=== PATIENT | male | born 1935 | race Caucasian/White ===

== ENCOUNTER 2017-07-26 07:50 | Emergency (ER) | payer MEDICARE, OTHER, SELFPAY ==
[2017-07-26 07:52] VITALS: BP 154/103; PULSE 105; RESP 16; TEMP 37.1; O2SAT 96; BMI 25.7
--- NOTE | 2017-07-26 08:11 | ED.VISSUMM ---
- ER Visit Summary Date of Service: 07/26/17 Chief Complaint: Urinary retention History of Present Illness: The patient is a [address] Amador and does not see a urologist. Patient reports he had a hernia repair yesterday. He has been unable to urinate since 5 PM yesterday. He has not had this previously. He denies any abdominal pain, nausea, vomiting, diarrhea, fever, chills, or other complaints. Physical Examination: Vitals: Stable. Afebrile. General: Well-nourished and well-developed. Head: Normocephalic atraumatic. Neck: Supple, no lymphadenopathy. No JVD. Nontender. Cardiovascular: Regular rate and rhythm. No murmurs. Respiratory: No respiratory distress. Clear to auscultation bilaterally. Abdominal: Soft, nontender, nondistended, normal bowel sounds. Obviously distended bladder. Incisions from the laparoscopy are clean, dry, and intact. There is no erythema or warmth. No guarding, rebound, or peritoneal signs. Back: Nontender. Extremities: Nontender, no edema. Skin: Normal color, no rash. Neurologic: Alert and oriented ?3. Cranial nerves II through XII are intact. Normal strength and sensation. Psych: Normal affect. Emergency Department Course and Treatment: Patient had a Urojet used and then had a Esteves catheter placed. He was given Flomax p.o. Treatment Plan: Patient will be discharged on Flomax and instructed to follow-up with Dr. Plasencia in 3-5 days. Return to the emergency department for any worsening symptoms. Disposition: To home in improved and stable condition. Impression: 1. Urinary retention. 2. 1 day status post hernia repair. This note was generated with [employer] dictation software. It may contain incorrect words, spelling, and punctuation that were not noted in review of the chart prior to signing ED Disposition - Plan for ED Patient: Chief Complaint: Complaint Instructions: ED Retention Urinary Male Prescriptions: Tamsulosin HCl [Flomax] 0.4 mg PO DAILY #30 capsule Referrals: Daniel Amador [Primary Care Provider] - Isai Plasencia MD [STAFF PHYSICIAN] - 3-5 Days
--- NOTE | 2017-07-26 08:15 | ED.DCSUM_ITS ---
- ER Visit Summary Date of Service: 07/26/17 Chief Complaint: Urinary retention History of Present Illness: The patient is a [address] Amador and does not see a urologist. Patient reports he had a hernia repair yesterday. He has been unable to urinate since 5 PM yesterday. He has not had this previously. He denies any abdominal pain, nausea, vomiting, diarrhea, fever, chills, or other complaints. Physical Examination: Vitals: Stable. Afebrile. General: Well-nourished and well-developed. Head: Normocephalic atraumatic. Neck: Supple, no lymphadenopathy. No JVD. Nontender. Cardiovascular: Regular rate and rhythm. No murmurs. Respiratory: No respiratory distress. Clear to auscultation bilaterally. Abdominal: Soft, nontender, nondistended, normal bowel sounds. Obviously distended bladder. Incisions from the laparoscopy are clean, dry, and intact. There is no erythema or warmth. No guarding, rebound, or peritoneal signs. Back: Nontender. Extremities: Nontender, no edema. Skin: Normal color, no rash. Neurologic: Alert and oriented ?3. Cranial nerves II through XII are intact. Normal strength and sensation. Psych: Normal affect. Emergency Department Course and Treatment: Patient had a Urojet used and then had a Esteves catheter placed. He was given Flomax p.o. Treatment Plan: Patient will be discharged on Flomax and instructed to follow- up with Dr. Plasencia in 3-5 days. Return to the emergency department for any worsening symptoms. Disposition: To home in improved and stable condition. Impression: 1. Urinary retention. 2. 1 day status post hernia repair. This note was generated with [employer] dictation software. It may contain incorrect words, spelling, and punctuation that were not noted in review of the chart prior to signing ED Disposition - Plan for ED Patient: Chief Complaint: Complaint Instructions: ED Retention Urinary Male Prescriptions: Tamsulosin HCl [Flomax] 0.4 mg PO DAILY #30 capsule Referrals: Daniel Amador [Primary Care Provider] - Isai Plasencia MD [STAFF PHYSICIAN] - 3-5 Days
[2017-07-26] MEDS: Lidocaine Jelly 2% 20 ML Syringe (URO-JET) 20 APPLIC TOPICAL (08:26)
[2017-07-26] MEDS: Tamsulosin HCl 0.4 MG Capsule PO (08:34)
[2017-07-26 09:36] VITALS: BP 138/77; PULSE 69; RESP 15; O2SAT 95
== END 2017-07-26 09:38 | disposition home or self-care (01) ==
PROVIDERS: Emergency Provider Emergency Medicine; PCP Family Medicine
DX: R33.9 Retention of urine, unspecified (principal); I10 Essential (primary) hypertension; K21.9 Gastro-esophageal reflux disease without esophagitis; Z98.890 Other specified postprocedural states
CPT/HCPCS: 51702; 99284

== ENCOUNTER 2019-07-16 10:06 | Day surgery (SDC) | payer MEDICARE, OTHER, SELFPAY ==
[2019-07-16] VITALS (9 sets, daily range): BP systolic 129–163; BP diastolic 76–104; PULSE 86–109; RESP 15–18; TEMP 36.6–37.2; O2SAT 92–97; BMI 25.8
[2019-07-16] MEDS: 0.9% Normal Saline 1,000 ML 150 ML IV (11:17)
--- NOTE | 2019-07-16 11:26 | NURSING ---
ENDO JASMIN FB REMOVAL
--- NOTE | 2019-07-16 11:30 | ED.RN ---
REPORT TO [facility] IN [facility]. PT SKIN P/W/D, RESP EVEN AND UNLABORED, PT A&O X 3, NO DISTRESS NOTED.
--- NOTE | 2019-07-16 11:33 | ED.VIS.GEN ---
History of Present Illness Chief Complaint: Foreign Body Informant: Patient Onset: Yesterday Current Severity: Mild Maximum Severity: Mild Narrative: Patient presents with what he believes is a piece of pork stuck in his throat. He states he was eating last night. He said he does not have coughing or choking but will occasionally get food stuck in his throat. He has been tolerating secretions since that time and speaks with a strong voice, however anytime he eats or drinks it comes back up. - Past Medical History (1) Hypertension Status: Chronic (2) GERD (gastroesophageal reflux disease) Status: Chronic (3) Asthma Status: Chronic Past Medical History - Allergies and Home Meds Allergies/Adverse Reactions: Allergies egg Allergy (Verified 07/16/19 10:09) Anaphylaxis Primary Care Physician: Daniel Amador MD [Primary Care Provider] - Prior records reviewed: Yes Lives: Spouse/ Significant Other Smoking Status: Former smoker Review of Systems General: Denies: Chills, Fever Eyes: Denies: Visual changes - bilaterally ENT: Denies: Bilateral ear pain Cardiovascular: Denies: Chest pain Respiratory: Denies: Dyspnea, Cough Gastrointestinal: Reports: Vomiting - Spitting up food and drink. Denies: Abdominal pain Musculoskeletal: Denies: Swelling, Extremity Pain Skin: Denies: Rash Neurological: Denies: Headache Allergy: Denies: Uticaria Physical Exam Vital Signs/Narrative: Vital Signs Temp Pulse Resp BP Pulse Ox 07/16/19 10:31 106 H 16 160/82 H 94 07/16/19 10:07 97.9 F 109 H 18 157/104 H 95 Inital Vital Signs reviewed: Yes General: Well nourished, Well developed Head: Normocephalic ENT: Moist mucous membranes Neck: Supple Cardiovascular: Regular rate, Regular rhythm Respiratory: No distress, CTA bilaterally Abdomen: Soft, Nontender, Normal bowel sounds Skin: Normal color Neurological: Alert, Oriented x3 Psychological: Normal affect Diagnostic/Tx/Re-eval - Medical Decision Making Shortly after seeing the patient I spoke with Dr. Morris. Patient will be taken down to endoscopy for EGD and plan will be to discharge patient from there. Patient and spouse at bedside been updated. ED Disposition - Plan for ED Patient: Disposition: Acute Care Hospital [facility] Diagnosis: Esophageal foreign body Referrals: Daniel Amador MD [Primary Care Provider] -
--- NOTE | 2019-07-16 11:44 | ED.RN ---
PT TRANSPORTED TO [facility].
--- NOTE | 2019-07-16 12:22 | PCM.HP.STD ---
Problem List (1) Esophageal foreign body Status: Acute Qualifiers: Encounter type: initial encounter Qualified Code(s): T18.108A - Unspecified foreign body in esophagus causing other injury, initial encounter History of Present Illness Date of Admission: 07/16/19 The patient is a 84 year old M here with vomiting. The patient reports that he ate dinner last night and he ate pork and galan beans. He says ever since he has not been able to control his secretions and he has been vomiting. This has happened in the past and he had an EGD in [address] Babcock for food impaction. He is on omeprazole. Past Medical History Past Medical History (Chronic Problems): Chronic Problems Hypertension (Chronic) GERD (gastroesophageal reflux disease) (Chronic) Asthma (Chronic) Allergies egg Allergy (Verified 07/16/19 10:09) Anaphylaxis Home Medications: Ambulatory Orders Medication Instructions Recorded Omeprazole [Prilosec] 20 mg PO DAILY 01/02/16 Lisinopril [Zestril] 5 mg PO DAILY #30 tablet 01/03/16 Surgical History: - - EGD for food impaction Lives: Spouse/ Significant Other Smoking Status: Former smoker - *Family History Maternal History Items: No pertinent history Review of Systems Constitutional: Denies: Anorexia, Fever HEENT: Reports: Difficulty Swallowing Cardiovascular: Denies: Chest Pain Respiratory: Denies: Cough, Shortness of Breath Gastrointestinal: Reports: Vomiting. Denies: Constipation, Diarrhea, Nausea VTE Information - Inpt Only VTE Present on Admission: No VTE Mechan Device Prophylaxis: SCD's Patient Problems: Active and Suspected Problems Esophageal foreign body (Acute) - Physical Exam Vitals/I&O's: Vital Signs Temp Pulse Resp BP Pulse Ox 99 F 86 15 163/86 H 97 07/16/19 11:45 07/16/19 11:45 07/16/19 11:45 07/16/19 11:45 07/16/19 11:45 Oxygen Delivery Method Room Air Weight: 160 lb 0.008 oz Body Mass Index (BMI) 25.8 Intake and Output for Last 24 Hours 07/14/19 07/15/19 07/16/19 23:59 23:59 23:59 Intake Total 65 / 65 Balance 65 / 65 General: Alert, Oriented x3 Neck: No JVD Lungs: Normal air movement Cardiovascular: Regular rate, Regular Rhythm Abdomen: Soft, Non Tender, Non-Distended Current Medications Sodium Chloride () 1,000 mls @ 150 mls/hr IV .Q6H40M [facility] Last Infusion: 07/16/19 11:56 Dose: Infused Documented by: Assessment/Plan All Active Problems Esophageal foreign body (Acute) 84-year-old male with food impaction of the esophagus 1. Plan for EGD with removal of the food. I discussed the increased risk of bleeding or perforation with the food removal. I also discussed the increased risk of aspiration. I explained endoscopy in detail to the patient. I explained the risks including but not limited to stroke or heart attack with anesthesia, perforation of the GI tract, bleeding, infection. I explained that any of these could necessitate further emergency surgery. The patient understands and all questions were answered sufficiently. The patient wishes to proceed with procedure. Portillo Morris MD Pager: [facility] [address] [place] [address], [address] [place] [address] Office:
--- NOTE | 2019-07-16 12:40 | OP.EGD_ITS ---
Patient Name: Eduardo Raines Procedure Date: 07/16/2019 12:07 PM Date of : 1935 Age: 84 Procedure: Upper GI endoscopy Indications: Foreign body in the esophagus Providers: Portillo Morris MD Medicines: Monitored Anesthesia Care Patient Profile: This is an 84 year old male. Refer to note in patient chart for documentation of history and physical. Complications: No immediate complications. Estimated blood loss: Minimal. Procedure: Pre-Anesthesia Assessment: - Prior to the procedure, a History and Physical was performed, and patient medications and allergies were reviewed. The patient's tolerance of previous anesthesia was also reviewed. The risks and benefits of the procedure and the sedation options and risks were discussed with the patient. All questions were answered, and informed consent was obtained. Prior Anticoagulants: The patient has taken no previous anticoagulant or antiplatelet agents. ASA Grade Assessment: II - A patient with mild systemic disease. After reviewing the risks and benefits, the patient was deemed in satisfactory condition to undergo the procedure. After obtaining informed consent, the endoscope was passed under direct vision. Throughout the procedure, the patient's blood pressure, pulse, and oxygen saturations were monitored continuously. The gastroscope was introduced through the mouth, and advanced to the second part of duodenum. The upper GI endoscopy was accomplished without difficulty. The patient tolerated the procedure well. Scope In: 12:30:38 PM Scope Out: 12:35:44 PM Total Procedure Duration Time 0 hours 5 minutes 6 seconds Findings: Food was found at the gastroesophageal junction. Food was pushed into stomach. A moderate Schatzki ring was found at the gastroesophageal junction. 1 cm lumen Impression: - Food was found in the esophagus. Removal was successful. - Moderate Schatzki ring. Recommendation: - Discharge patient to home. - Soft diet for 2 days. - Continue present medications. - Return to my office in 1 week. Procedure Code(s): --- Professional --- 82122, Esophagogastroduodenoscopy, flexible, transoral; with removal of foreign body(s) Diagnosis Code(s): --- Professional --- T18.128A, Food in esophagus causing other injury, initial encounter K22.2, Esophageal obstruction T18.108A, Unspecified foreign body in esophagus causing other injury, initial encounter CPT copyright 2017 [employer]. All rights reserved. The codes documented in this report are preliminary and upon invoice coder review may be revised to meet current compliance requirements. Portillo Morris MD 07/16/2019 12:39:39 PM This report has been signed electronically. Number of Addenda: 0 Note Initiated On: 07/16/2019 12:07 PM
--- NOTE | 2019-07-16 12:40 | OP.CCLET_ITS ---
07/16/2019 Daniel Amador Md Re : Upper GI endoscopy procedure for Eduardo Raines Dear [place] This procedure was performed on Tuesday, July 16, 2019. My impressions and recommendations are as follows: Impressions : - Food was found in the esophagus. Removal was successful. - Moderate Schatzki ring. Recommendations : - Discharge patient to home. - Soft diet for 2 days. - Continue present medications. - Return to my office in 1 week. My findings are described in the full procedure note, which is enclosed. If I can be of further assistance, please feel free to contact me at Doctor phone number(s): , Work: . Sincerely, Portillo Morris MD 07/16/2019 12:39:39 PM This report has been signed electronically.
== END 2019-07-16 13:23 | disposition home or self-care (01) ==
LOC: ED 11:24 → EN 11:33 → AC 11:36
PROVIDERS: Emergency Provider Emergency Medicine; PCP Family Medicine; Referring Provider Family Medicine; Visit Provider Surgery
PROC: 0DJ08ZZ Inspection of Upper Intestinal Tract, Via Natural or Artificial Opening Endoscopic (ICD-10-PCS; CPT 43235; principal; 2019-07-16 12:20)
DX: T18.128A Food in esophagus causing other injury, initial encounter (principal); K22.2 Esophageal obstruction; I10 Essential (primary) hypertension; K21.9 Gastro-esophageal reflux disease without esophagitis; J45.909 Unspecified asthma, uncomplicated; Z87.891 Personal history of nicotine dependence; Z79.899 Other long term (current) drug therapy
CPT/HCPCS: 43247; 99282; J7030; A4216; J2405

== ENCOUNTER 2024-03-05 18:05 | Inpatient (IN) | payer MEDICARE, SELFPAY ==
[2024-03-05 18:55] VITALS: BP 131/69; PULSE 74; RESP 18; TEMP 36.7; O2SAT 95; BMI 22.3
--- NOTE | 2024-03-05 19:07 | HP.PCM_ITS ---
HPI - General General Date of Admission: 03/05/24 Date of Service: 03/06/24 Chief Complaint: Here for rehabilitation. HPI Narrative AYESHA JACOBSEN, is a 89 Male who presents with followin02/26/2024 [place] [facility] with confusion, recent UTI, treated with Cipro, urine culture grew 3 organisms. Not drinking, Admitted to [facility] last week. CT head negative, CTA head/neck negative, MRI brain negative. Confusion 2/2 acute kidney injury, dehydration, UTI. 02/27/2024 Admit to [facility]. Ceftriaxone IV for UTI. IV fluids for ANDREWS. 02/28/2024 Ceftriaxone IV for 1 more day, the oral antibiotic. 02/29/2024 Neurology recommended Keppra, MRI brain for possible seizure. Urology consulted for urinary retention. Urology recommended no urinary catheter. 03/02/2024 recommends SNF. PT/OT for SNF. Oral Keppra for seizure disorder. 03/03/2024 A[address] placement. Seizure disorder tolerating Keppra 500mg twice daily. 03/04/2024 Stroke alert, slurred speech, right facial droop. Not TNK candidate. NPO, Teleneurology, MRI brain, EKG, consider Echo. PT/OT/ST. Facial droop near baseline per and nursing staff. CT brain negative for bleed. 03/05/2024 Admit to TCU with debility, here for rehabilitation, strengthening, prior to discharge home with . [facility] Medical History (Updated 03/05/24 @ 19:[address] Darius Maddox MD) History of esophageal dilatation Esophageal stenosis Urinary retention BPH (benign prostatic hyperplasia) Essential (primary) hypertension Seizure disorder Urinary tract infection Dehydration Acute kidney injury Acute encephalopathy Debility Home Medications ?Medication ?Instructions ?Recorded ?Last Taken ?Type omeprazole 20 mg capsule,delayed 20 mg PO DAILY GERD 01/02/16 Unknown History release lisinopril 5 mg tablet 5 mg PO DAILY ##30 01/03/16 Unknown Rx cyanocobalamin (vitamin B-12) 500 500 mcg PO DAILY Supplement 03/05/24 Unknown History mcg tablet (Vitamin B-12) levetiracetam 500 mg tablet 500 mg PO BID Seizures 03/05/24 Unknown History lisinopril 10 mg tablet 10 mg PO DAILY Blood pressure 03/05/24 Unknown History meclizine 25 mg tablet 25 mg PO TID PRN PRN dizziness or 03/05/24 Unknown History vertigo tamsulosin 0.4 mg capsule 0.4 mg PO DAILY Bladder 03/05/24 Unknown History Allergy/AdvReac Type Severity Reaction Status Date / Time egg Allergy Anaphylaxis Verified 07/16/19 10:09 Family History (Updated 03/05/24 @ 19:[address] Darius Maddox MD) Mother Colon cancer Father Cancer Surgical History (Updated 03/05/24 @ 19:[address] Darius Maddox MD) History of colectomy History of left inguinal hernia repair History of esophagogastroduodenoscopy (EGD) Social History (Updated 03/05/24 @ 19:[address] Darius Maddox MD) household members: spouse Smoking Status: Former smoker alcohol intake: never substance use type: does not use ROS Constitutional Constitutional: Denies chills, fever(s) or weight gain ENT HEENT: Denies headache(s), nasal congestion or nasal discharge Cardiovascular Cardiovascular: Denies chest pain or palpitations Respiratory/Chest Respiratory/Chest: Denies cough, excessive phlegm production or shortness of breath with exertion Gastrointestinal Gastrointestinal: Denies abdominal pain, nausea or vomiting Genitourinary Genitourinary: Denies dysuria Musculoskeletal Musculoskeletal: Denies joint pain or joint swelling Integumentary Integumentary: Denies rash or wounds Neurologic Neurologic: Denies focal weakness, numbness or tingling Psychiatric Psychiatric: Denies anxiety, auditory hallucinations, depression, homicidal ideation or suicidal ideation Vital Signs Vital Signs Vital Signs: 03/05/24 18:55 Temperature 98.0 F Temperature Source Temporal Pulse Rate 74 Respiratory Rate 18 Blood Pressure 131/69 H Blood Pressure Mean 89 Blood Pressure Source Monitor Pulse Ox 95 Oxygen Delivery Method Room Air Weight Weight: 64.637 kg Body Mass Index (BMI) 22.3 Physical Exam Const alert General Appearance: cooperative HEENT normocephalic Eyes PERRL and EOMs intact bilaterally Neck supple, no JVD and no carotid bruits Resp normal respiratory effort, normal air movement and clear to auscultation bilaterally Cardio regular rate and regular rhythm GI normal to inspection, nondistended, normoactive bowel sounds, non-tender and non-distended Extremity normal capillary refill General Extremity: Negative for edema Skin no rashes or lesions noted General Skin Exam: no breakdown Psych affect normal Appearance: appropriate Results Lab / Micro Data 03/06/24 05:10 03/06/24 05:10 Assessment & Plan Assessment/Plan (1) Debility: (2) Acute encephalopathy: (3) Acute kidney injury: (4) Dehydration: (5) Urinary tract infection: (6) Seizure disorder: (7) Essential (primary) hypertension: (8) GERD (gastroesophageal reflux disease): (9) Asthma: (10) BPH (benign prostatic hyperplasia): (11) Urinary retention: (12) Esophageal stenosis: PLAN: Plan 89 year old male with below past medical history hospitalized for encephalopathy 2/2 seizure disorder, complicated by ANDREWS, dehydration, UTI, urinary retention, admitted to TCU with debility, here for rehabilitation, strengthening, prior to discharge home with . * Debility - PT/OT. * Cognition/dysphagia - ST. * Pain - Tylenol 1000mg q6 prn pain (1-10). * Bowel - senna/colace 1 tablet bid, Magnesium citrate 300mL po daily prn. * Adult immunization - Administer pneumonia vaccine, covid vaccine, flu vaccine as appropriate. * DVT prophylaxis - Lovenox 40mg sc daily if no contraindications. * Vitamin B12 deficiency - B12 500mcg daily. * Seizure disorder - Keppra 500mg bid. * Hypertension - Lisinopril 10mg daily. * BPPV - Meclizine 25mg tid prn. * GERD - Pantoprazole 20mg daily. * BPH - Tamsulosin 0.4mg daily. * Insomnia - Melatonin 3mg qhs.
[2024-03-05 19:18] VITALS: BMI 22.4
[2024-03-05] MEDS: MELATONIN 3 MG TABLET PO (22:46)
[2024-03-05] MEDS: levETIRAcetam 500 MG Tablet PO (22:46)
[2024-03-05] MEDS: Senna/Docusate Sodium 1 Tablet PO (22:46)
[2024-03-06 06:13] LABS: Absolute Lymphocyte Count 1.77 X10^3/uL (0.83-4.51); Basophil# 0.07 X10^3/uL; Basophil% 0.7 % (0-1); Eosinophil# 0.97 X10^3/uL; Eosinophils% 9.7 % (0-5); Hematocrit 38.9 % (40-54); Hemoglobin 12.5 g/dL (13.0-16.5); Lymphocyte # 1.77 X10^3/ul (0.83-4.51); Lymphocyte % 17.7 % (19-41); Mean Corp Hgb Conc 32.1 g/dL (32-36); Mean Corpuscular Volume 90.3 fL (80-94); Mean Platelet Vol. 10.7 fl (6.2-12.0); Monocyte# 1.11 X10^3/uL; Monocyte% 11.1 % (0-10); NRBC Flagged by Analyzer 0 % (0-5); Neutrophil % 60.2 % (47-70); Platelet Count 273 K/mm3 (150-450); RBC Distribution Width CV 13.2 % (11.6-14.6); RBC Distribution Width SD 43.6 fl (35.1-43.9); Red Blood Count 4.31 M/mm3 (4.6-6.2)
[2024-03-06 06:33] LABS: Anion Gap 4 (5-15); BUN 25 mg/dL (7-18); BUN/Creat Ratio 23.6 RATIO (10-20); Calcium,Total 9.1 mg/dL (8.5-10.1); Chloride 110 mmol/L (98-107); Creatinine, Serum 1.06 mg/dL (0.70-1.30); EST Glomerular Filtration Rate 70 mL/min (>60); Est Glom Filt Rate - Afr Amer 85 mL/min (>60); Estimated Creatinine Clearance 44.08 ml/min; Glucose 91 mg/dL (74-106); Potassium 3.8 mmol/L (3.5-5.1); Sodium Level 142 mmol/L (136-145)
--- NOTE | 2024-03-06 08:48 | PCM.PN.DRR ---
Documented by User: Chanelle Jc 03/06/24 09:20 TCU RX Drug Regimen Review Subjective/Objective Subjective/Objective: Subjective: TCU Admission. 89 YOM presented to outside ER with confusion and recent UTI. Hospitalized for encephalopathy 2/2 seizure disorder, complicated by ANDREWS, dehydration, UTI, urinary retention. Admitted to TCU with debility for strengthening and rehabilitation. Objective: Allergies egg Allergy (Verified 07/16/19 10:09) Anaphylaxis Current Medications Generic Name Dose Route Start Last Admin Trade Name Freq PRN Reason Stop Dose Admin Acetaminophen 1,000 mg 03/05/24 19:19 Acetaminophen 500 Mg Tablet PO Q6H PRN PRN Pain Score 1-10 Cyanocobalamin 500 mcg 03/06/24 08:00 Cyanocobalamin 500 Mcg Tablet PO BREAKFAST TATY Enoxaparin Sodium 40 mg 03/06/24 06:00 Enoxaparin 40 Mg/0.4 Ml Syringe SC DAILY@0600 TATY Levetiracetam 500 mg 03/05/24 22:00 03/05/24 22:46 Levetiracetam 500 Mg Tablet PO 500 mg BID TATY Administration Lisinopril 10 mg 03/06/24 10:00 Lisinopril 10 Mg Tablet PO DAILY TATY Protocol Magnesium Citrate 300 ml 03/05/24 19:19 Magnesium Citrate 300 Ml PO DAILY PRN Constipation Meclizine HCl 25 mg 03/05/24 19:02 Meclizine Hcl 25 Mg Tablet PO TID PRN PRN dizziness or vertigo Melatonin 3 mg 03/05/24 22:00 03/05/24 22:46 Melatonin 3 Mg Tablet PO 3 mg QHS TATY Administration Pantoprazole Sodium 20 mg 03/06/24 10:00 Pantoprazole Sodium 20 Mg Tablet PO DAILY TATY Senna/Docusate Sodium 1 tablet 03/05/24 22:00 03/05/24 22:46 Senna/Docusate Sodium 1 Tablet PO 1 tablet BID TATY Administration Sodium Chloride 10 - 40 ml 03/05/24 19:01 0.9% Saline Lock 10 Ml Syringe IV UD PRN SALINE FLUSH Tamsulosin HCl 0.4 mg 03/06/24 10:00 Tamsulosin Hcl 0.4 Mg Capsule PO DAILY TATY Tuberculin PPD 0.1 ml 03/06/24 10:00 Tuberculin,Purif.Prot.Deriv. 50 Tu/Ml Vial ID 03/06/24 10:01 X1 ONE Tuberculin PPD 0.1 ml 03/13/24 10:00 Tuberculin,Purif.Prot.Deriv. 50 Tu/Ml Vial ID 03/13/24 10:01 X1 ONE Problem List Esophageal stenosis (Acute) Urinary retention (Acute) BPH (benign prostatic hyperplasia) (Acute) Essential (primary) hypertension (Acute) Seizure disorder (Acute) Urinary tract infection (Acute) Dehydration (Acute) Acute kidney injury (Acute) Acute encephalopathy (Acute) Debility (Acute) Asthma (Chronic) GERD (gastroesophageal reflux disease) (Chronic) Vital Signs Temp Pulse Resp BP Pulse Ox O2 Del Method 98.0 F 74 18 131/69 H 95 Room Air 03/05/24 18:55 03/05/24 18:55 03/05/24 18:55 03/05/24 18:55 03/05/24 18:55 03/05/24 20:54 Oxygen Delivery Method Room Air Weight: 64.7 kg Body Mass Index (BMI) 22.4 Sodium 142 mmol/L (136-145) 03/06/24 05:10 Potassium 3.8 mmol/L (3.5-5.1) 03/06/24 05:10 Chloride 110 mmol/L (98-107) H 03/06/24 05:10 Carbon Dioxide 28.0 mmol/L (21.0-32.0) 03/06/24 05:10 Anion Gap 4 (5-15) L 03/06/24 05:10 BUN 25 mg/dL (7-18) H 03/06/24 05:10 Creatinine 1.06 mg/dL (0.70-1.30) 03/06/24 05:10 Est GFR (MDRD) Af Amer 85 mL/min (>60) 03/06/24 05:10 Est GFR (MDRD) Non-Af 70 mL/min (>60) 03/06/24 05:10 BUN/Creatinine Ratio 23.6 RATIO (10-20) H 03/06/24 05:10 Glucose 91 mg/dL (74-106) 03/06/24 05:10 Assessment/Plan: 1. Pain: acetaminophen 1000mg PO Q6H PRN pain 1-10. Resident has not had any doses. Please continue to monitor for increased pain and PRN usage. 2. Bowel: senna/docusate 1T PO BID and magnesium citrate 300mL PO daily PRN constipation. Resident has not used any PRN doses so far. Please continue to monitor for constipation and PRN usage. No documented bowel movement. 3. DVT prophylaxis: enoxaparin 40mg SC daily. Please continue to monitor for S/S of bleeding/DVT, hemoglobin (last 12.5g/dL), platelets (last 273,000) and renal function. 4. Seizure disorder: levetiracetam 500mg PO BID. Please continue to monitor for S/S of seizure, rash, falls/fractures (BEERs), renal function, aggression/agitation and suicidal ideation. 5. Hypertension: lisinopril 10mg PO daily. Please continue to monitor BP (last 131/69), potassium (last 3.8mmol/L), cough and renal function. 6. BPPV: meclizine 25mg PO TID PRN dizziness or vertigo. No PRN doses have been given. Please continue to monitor for dizziness, vertigo and PRN usage. 7. GERD: pantoprazole 20mg PO daily. Please continue to monitor for S/S of GERD, diarrhea and magnesium. 8. BPH: tamsulosin 0.4mg PO daily. Please continue to monitor for S/S of BPH and BP. 9. Insomnia: melatonin 3mg PO QHS. Please continue to monitor for excessive daytime drowsiness. 10. Vitamin B12 deficiency: cyanocobalamin 500mcg PO breakfast. Please consider ordering a vitamin B12 level as there is no level in the chart. Thanks. Assessment/Plan for indications treated with psychotropic medications: None Medical chart and medication regimen reviewed. The following medication irregularities or issues were identified: 1. Cyanocobalamin 500mcg PO breakfast. Please consider ordering a vitamin B12 level as there is no level in the chart. Thanks. Date Date of Note:: 03/06/24 Documented by User: Dr. Darius Maddox MD 03/06/24 09:36 TCU RX Drug Regimen Review Provider Comments Provider responsibility Provider Comments to Recommendations by Pharmacy: Agree
[2024-03-06 10:02] VITALS: BP 97/50; PULSE 88; RESP 16; TEMP 36.8; O2SAT 93
[2024-03-06] MEDS: Enoxaparin 40 MG/0.4 ML Syringe SC (10:03)
[2024-03-06] MEDS: Pantoprazole Sodium 20 MG Tablet PO (10:04)
[2024-03-06] MEDS: levETIRAcetam 500 MG Tablet PO ×2 (10:04→22:18)
[2024-03-06] MEDS: Senna/Docusate Sodium 1 Tablet PO ×2 (10:04→22:18)
[2024-03-06] MEDS: Tamsulosin HCl 0.4 MG Capsule PO (10:04)
[2024-03-06] MEDS: Cyanocobalamin 500 MCG Tablet PO (10:04)
[2024-03-06] MEDS: Lisinopril 10 MG Tablet PO (10:04)
[2024-03-06] MEDS: Tuberculin,Purif.prot.deriv. 50 TU/ML Vial 0.1 ML ID (10:06)
[2024-03-06 10:46] LABS: Vitamin B12 1389 pg/mL (211-911)
--- NOTE | 2024-03-06 12:18 | NURSING ---
Operations Associate Note; Activity Asset: Jayne Clark is independent in his choice of daily activities. He will watch tv, read and visits with family, friends and tenriism. will bring him items he may need. Staff will remind him of weekly activities and respect his right to say No.
--- NOTE | 2024-03-06 14:09 | CASEMGMT ---
Addendum entered by Jenny Mcgee 03/06/24 16:16: Social Work SW met with pt's who confirms prior to hospitalization pt lives at home and was independent with care needs. Pt's states pt does have a health care POA naming Marilyn Raines and pt does not have a living will. ALEC requested Marilyn bring copy of HCPOA into hospital to be placed on pt chart. SW spoke with Marilyn regarding code status. SW explained that paperwork from [facility] indicates DNRCCA however in discussion today pt indicated possibly wanting full code. Pt's states she will speak with pt and a clear answer on code status will be settled on. Nursing updated and to follow up with pt and . Pt's confirms plan for pt to return home at time of dc. ALDEN Ramon Original Note: Social Work SW met with pt and competed psychosocial assessment. Pt is able to converse appropriately with SW, is alert and oriented x3 but short term memory is very impaired and pt is able to state this. Phone call to pt's spouse to verify information provided by pt and VM left. Pt is currently a DNRCCA as indicated from paper work sent to TCU from acute hospital stay. ALEC explained [employer] Medicare next review date is 03/11 and that continued stay is not guaranteed. Pt denies having completed a health care POA or living will. When pt's calls back, SW will verify. Pt lives at home with his and was indenpendent prior to hosptialization. Pt plans to return home with his spouse. ALEC will continue to follow for support and dc planning. ALDEN Godinez
[2024-03-06] MEDS: Acetaminophen 500 MG Tablet 1000 MG PO (17:24)
[2024-03-06 22:00] VITALS: PULSE 88; RESP 16; O2SAT 93
[2024-03-06] MEDS: MELATONIN 3 MG TABLET PO (22:18)
[2024-03-06] MEDS: 0.9% Saline Lock 10 ML Syringe IV (22:26)
--- NOTE | 2024-03-06 23:00 | NURSING ---
Per CAUSTIC ROOM ATTENDANT patient had LG BM post SSE
[2024-03-07] MEDS: Enoxaparin 40 MG/0.4 ML Syringe SC (05:05)
[2024-03-07 08:30] VITALS: BP 114/81; PULSE 87; RESP 16; TEMP 36.6; O2SAT 92
[2024-03-07] MEDS: Pantoprazole Sodium 20 MG Tablet PO (08:35)
[2024-03-07] MEDS: Lisinopril 10 MG Tablet PO (08:36)
[2024-03-07] MEDS: Cyanocobalamin 500 MCG Tablet PO (08:36)
[2024-03-07] MEDS: levETIRAcetam 500 MG Tablet PO ×2 (08:36→21:31)
[2024-03-07] MEDS: Tamsulosin HCl 0.4 MG Capsule PO (08:36)
[2024-03-07] MEDS: Senna/Docusate Sodium 1 Tablet PO ×2 (08:36→21:43)
[2024-03-07] MEDS: Acetaminophen 500 MG Tablet 1000 MG PO ×2 (08:42→21:30)
[2024-03-07] MEDS: MELATONIN 3 MG TABLET PO (21:31)
[2024-03-07] MEDS: Neomycin/Polymyxin/Dexameth 5ML OPTH.BTL 1 DRP EACH EYE (23:53)
[2024-03-08] MEDS: Neomycin/Polymyxin/Dexameth 5ML OPTH.BTL 1 DRP EACH EYE ×4 (05:24→23:06)
[2024-03-08] MEDS: Enoxaparin 40 MG/0.4 ML Syringe SC (05:25)
[2024-03-08 09:10] VITALS: BP 106/69; PULSE 105; RESP 16; TEMP 36.1; O2SAT 95
[2024-03-08] MEDS: levETIRAcetam 500 MG Tablet PO ×2 (09:13→20:00)
[2024-03-08] MEDS: Cyanocobalamin 500 MCG Tablet PO (09:13)
[2024-03-08] MEDS: Senna/Docusate Sodium 1 Tablet PO ×2 (09:13→20:01)
[2024-03-08] MEDS: Lisinopril 10 MG Tablet PO (09:13)
[2024-03-08] MEDS: Pantoprazole Sodium 20 MG Tablet PO (09:13)
[2024-03-08] MEDS: Tamsulosin HCl 0.4 MG Capsule PO (09:13)
[2024-03-08] MEDS: 0.9% Saline Lock 10 ML Syringe IV (09:16)
[2024-03-08 10:31] LABS: Bacteria 0 SEEN /hpf (None Seen); Mucous, Urine 0 SEEN /hpf (<or=2+); Red Blood Cells-Urine 0 SEEN /hpf (0-5); Squamous Epithelial Cells - UA 0 SEEN /hpf (0-5)
--- NOTE | 2024-03-08 10:33 | NURSING ---
Addendum entered by Amy Ghosh 03/08/24 10:36: call light in reach, alarm in place on bed. trimmed pt fingernails per pt request, had some nails with jagged edges. pt very appreciative. obtained 120cc clear yellow urine. pt does have history of BPH, states he had never seen urologist but wants me to check with his d/t poor memory. Original Note: pt tolerated st cath, did not some resistance with insertion. pt resting in bed on back, call lig
[2024-03-08 10:34] LABS: Color, Urine Yellow (Yellow); Glucose, Dipstick Normal (Normal); Ketone-Dipstick Negative (Negative); Leukocyte Esterase-Dipstick 25 /ul (Negative); Nitrite-Dipstick Negative (Negative); Occult Blood-Urine Negative /ul (Negative); Protein-Dipstick Negative (Negative); Urine Bilirubin Dipstick Negative (Negative); Urine Clarity Clear (Clear); Urine Urobilinogen Normal (Normal)
[2024-03-08 10:39] VITALS: PULSE 84; RESP 16; O2SAT 94
[2024-03-08 10:42] LABS: White Blood Cells 0-5 SEEN /hpf (0-5)
[2024-03-08] MEDS: Nystatin Powder 15gm Bottle 1 APPLIC TOPICAL ×2 (12:02→20:00)
[2024-03-08] MEDS: MELATONIN 3 MG TABLET PO (20:00)
--- NOTE | 2024-03-08 20:04 | NURSING ---
Pt. ready for bed, hs meds administered at this time per pt. request
[2024-03-09] MEDS: Neomycin/Polymyxin/Dexameth 5ML OPTH.BTL 1 DRP EACH EYE ×4 (05:17→23:04)
[2024-03-09] MEDS: Enoxaparin 40 MG/0.4 ML Syringe SC (05:17)
[2024-03-09] MEDS: Nystatin Powder 15gm Bottle 1 APPLIC TOPICAL ×3 (05:18→20:21)
[2024-03-09 05:25] VITALS: PULSE 82; RESP 18; O2SAT 92
[2024-03-09] MEDS: Cyanocobalamin 500 MCG Tablet PO (08:05)
[2024-03-09] MEDS: Lisinopril 10 MG Tablet PO (08:05)
[2024-03-09] MEDS: Pantoprazole Sodium 20 MG Tablet PO (08:06)
[2024-03-09] MEDS: Senna/Docusate Sodium 1 Tablet PO ×2 (08:06→20:21)
[2024-03-09] MEDS: levETIRAcetam 500 MG Tablet PO ×2 (08:06→20:20)
[2024-03-09] MEDS: Tamsulosin HCl 0.4 MG Capsule PO (08:06)
[2024-03-09 09:12] VITALS: BP 136/89; PULSE 89; RESP 16; TEMP 36.8; O2SAT 94
--- NOTE | 2024-03-09 15:25 | NURSING ---
Spoke with Dr. Maddox regarding family wanting to stop Keppra due to patient not having any seizures and last EEG being negative prior to admission to TCU. Per Dr. Maddox, patient to continue Keppra until discharging from unit, EEG's are 99% negative unless they are performed with patient being monitored and able to catch seizure activity. Family and patient to follow up with PCP and neurology after discharge and discuss discontinuation of medication.
[2024-03-09] MEDS: MELATONIN 3 MG TABLET PO (20:20)
[2024-03-10] MEDS: Enoxaparin 40 MG/0.4 ML Syringe SC (06:07)
[2024-03-10] MEDS: Nystatin Powder 15gm Bottle 1 APPLIC TOPICAL ×3 (06:07→20:55)
[2024-03-10] MEDS: Neomycin/Polymyxin/Dexameth 5ML OPTH.BTL 1 DRP EACH EYE ×3 (06:07→17:37)
[2024-03-10] MEDS: Cyanocobalamin 500 MCG Tablet PO (08:30)
[2024-03-10] MEDS: Senna/Docusate Sodium 1 Tablet PO ×2 (08:31→20:55)
[2024-03-10] MEDS: Lisinopril 10 MG Tablet PO (08:31)
[2024-03-10] MEDS: levETIRAcetam 500 MG Tablet PO ×2 (08:31→20:55)
[2024-03-10] MEDS: Tamsulosin HCl 0.4 MG Capsule PO (08:31)
[2024-03-10] MEDS: Pantoprazole Sodium 20 MG Tablet PO (08:32)
[2024-03-10 10:38] VITALS: PULSE 92; RESP 16; O2SAT 92
[2024-03-10 10:47] VITALS: BP 115/85; PULSE 92; RESP 16; TEMP 36.5; O2SAT 92
[2024-03-10] MEDS: MELATONIN 3 MG TABLET PO (20:54)
[2024-03-11] MEDS: Neomycin/Polymyxin/Dexameth 5ML OPTH.BTL 1 DRP EACH EYE ×4 (00:57→18:27)
[2024-03-11] MEDS: Acetaminophen 500 MG Tablet 1000 MG PO (01:00)
[2024-03-11] MEDS: Enoxaparin 40 MG/0.4 ML Syringe SC (05:13)
[2024-03-11] MEDS: Nystatin Powder 15gm Bottle 1 APPLIC TOPICAL ×2 (08:29→18:28)
[2024-03-11 08:30] VITALS: BP 116/71; PULSE 72; RESP 18; TEMP 36.8; O2SAT 93
[2024-03-11] MEDS: Senna/Docusate Sodium 1 Tablet PO (08:31)
[2024-03-11] MEDS: Lisinopril 10 MG Tablet PO (08:31)
[2024-03-11] MEDS: Tamsulosin HCl 0.4 MG Capsule PO (08:31)
[2024-03-11] MEDS: Pantoprazole Sodium 20 MG Tablet PO (08:31)
[2024-03-11] MEDS: Cyanocobalamin 500 MCG Tablet PO (08:31)
[2024-03-11] MEDS: levETIRAcetam 500 MG Tablet PO (08:31)
--- NOTE | 2024-03-11 08:34 | NURSING ---
family requesting that keppra be stopped d/t family never knowing pt ever had seizures. dr gonzalez notified, does not want to stop until pt follows up with neurologist for more studies.
--- NOTE | 2024-03-11 09:48 | NURSING ---
Offered covid vaccine, VIS provided. Resident refuses at this time.
--- NOTE | 2024-03-11 11:32 | CASEMGMT ---
Social Work SW received message from nurse that would like dtr to be the contact for information. Amy Pop. SW updated contacts. Natividad Falcon HEAD OF HUMAN RESOURCES SEWER PIPE OFFBEARER
--- NOTE | 2024-03-11 12:11 | CASEMGMT ---
Addendum entered by Natividad Falcon 03/11/24 14:16: SW received no follow up contact from or dtr and nursing notified this worker dtr was present in room. SW presented to room. Introduced self and role to dtr and REGINA. Dtr explained she is a nurse and pt's granddaughter is a nurse, and are available to assist pt and at any time with pt's needs; declining the therapy training. Dtr inquired about DC date. SW reiterated explanation given to earlier and cited patient's do not typically receive therapy services the day of DC d/t insurance reasons, though, explained pt/family has the right to choose to DC at any time. Explained declined HHC but agreed to OP therapy and this worker can get that coordinated. SW verbally provided list of area OP facilities. Dtr/ elected [facility] for PT/OT/ST. Dtr asked pt if he would be okay going home tomorrow morning; pt agreed to the morning but no later. REGINA interjected, Amy give him the options. Dtr reasked pt if he would like to go home tonight or tomorrow morning; pt elected tonight. SW agreed and will notify Dr and IDT and will make the referral to [facility]. SW explained this worker will not be able to schedule the evals prior to DC, but that [facility] will call the to schedule; if no phone call within 48 hours of DC, to contact [facility] directly. SW explained Dr will see pt and complete DC after his office hours. Dtr expressed understanding and appreciative. SW completed BIMS (07/20) and PHQ-2 () for MDS assessment. Notified Dr and IDT. Faxed referral to [facility]. Plan:DC home with and family support 03/11, [facility] PT/OT/ST Natividad Falcon PAPER PATTERN INSPECTOR MACHINE PROGRAMMER Original Note: Social Work SW notified by nursing that at bedside and requesting to speak with this worker. SW presented to pt's room.b stated she spoke with the Dr this morning and Dr told her the pt can DC home today. SW unaware of conversation and offered to follow up with Dr and team on recommendations. SW inquired about HHC. adamantly declined anyone in the home but could take him to OP therapy. Though, therapy has not practiced a car tx. stated their dtr could assist with car tx. Dtr seems supportive, but this worker has not spoken to dtr during stay. denied DME needs as she just purchased pt a FWW. ALEC reviewed therapy notes. Pt is ambulating well in PT; good TUG score. OT is providing min-mod for some ADLs. ALEC followed up with . Pt was seen by both PT/OT this date. stated he did agree for pt to DC home for pt to return to his home environment, but to consult with this worker and team on timeframe. SW returned to room to explain. Offered to DC 03/13, and provide car tx and therapy training on 03/12; or DC 03/12, without training. to speak with dtr and provide options. SW provided this worker's contact information for or dtr to follow up with this worker. expressed understanding. SW will continue to follow.
--- NOTE | 2024-03-11 13:03 | NURSING ---
family requesting to take pt home today, family feels this is causing him to be agitated. pt does not need any medical equipment at home. PATHOLOGY LABORATORY AIDE aware, not on floor at this time, simulation technician notified, she will speak with PATHOLOGY LABORATORY AIDE. family updated.
--- NOTE | 2024-03-11 14:31 | NURSING ---
Order for neurology follow-up and clinical info faxed to Dr. Ricki Partida's office at [phone]. Updated family that neurology office said after receiving referral, they would reach out to patient/family in 24-48hrs.
--- NOTE | 2024-03-11 17:17 | DS.PCM_ITS ---
Providers Date of Admission: 03/05/24 Primary Care Physician: Dr. Daniel Amador MD Reason For Visit: ALTERED MENTAL STATUS Diagnosis Discharge Diagnosis (1) Debility: Status: Acute Code(s): R53.81 - Other malaise (2) Acute encephalopathy: Status: Acute Code(s): G93.40 - Encephalopathy, unspecified (3) Acute kidney injury: Status: Acute Code(s): N17.9 - Acute kidney failure, unspecified (4) Dehydration: Status: Acute Code(s): E86.0 - Dehydration (5) Urinary tract infection: Status: Acute Code(s): N39.0 - Urinary tract infection, site not specified (6) Seizure disorder: Status: Acute Code(s): G40.909 - Epilepsy, unspecified, not intractable, without status epilepticus (7) Essential (primary) hypertension: Status: Acute Code(s): I10 - Essential (primary) hypertension (8) GERD (gastroesophageal reflux disease): Status: Chronic Code(s): K21.9 - Gastro-esophageal reflux disease without esophagitis (9) Asthma: Status: Chronic Code(s): J45.909 - Unspecified asthma, uncomplicated (10) BPH (benign prostatic hyperplasia): Status: Acute Code(s): N40.0 - Benign prostatic hyperplasia without lower urinary tract symptoms (11) Urinary retention: Status: Acute Code(s): R33.9 - Retention of urine, unspecified (12) Esophageal stenosis: Status: Acute Code(s): K22.2 - Esophageal obstruction Plan 89 year old male with below past medical history hospitalized for encephalopathy 2/2 seizure disorder, complicated by ANDREWS, dehydration, UTI, urinary retention, admitted to TCU with debility, here for rehabilitation, strengthening, prior to discharge home with . * Debility - PT/OT. * Cognition/dysphagia - ST. * Pain - Tylenol 1000mg q6 prn pain (1-10). * Bowel - senna/colace 1 tablet bid, Magnesium citrate 300mL po daily prn. * Adult immunization - Administer pneumonia vaccine, covid vaccine, flu vaccine as appropriate. * DVT prophylaxis - Lovenox 40mg sc daily if no contraindications. * Vitamin B12 deficiency - B12 500mcg daily. * Seizure disorder - Keppra 500mg bid. * Hypertension - Lisinopril 10mg daily. * BPPV - Meclizine 25mg tid prn. * GERD - Pantoprazole 20mg daily. * BPH - Tamsulosin 0.4mg daily. * Insomnia - Melatonin 3mg qhs. Medications at Discharge Home Medications omeprazole 20 mg capsule,delayed release 20 mg PO DAILY GERD 01/02/16 cyanocobalamin (vitamin B-12) 500 mcg tablet (Vitamin B-12) 500 mcg PO DAILY Supplement 03/05/24 lisinopril 10 mg tablet 10 mg PO DAILY Blood pressure 03/05/24 meclizine 25 mg tablet 25 mg PO TID PRN PRN dizziness or vertigo 03/05/24 tamsulosin 0.4 mg capsule 0.4 mg PO DAILY Bladder 03/05/24 acetaminophen 500 mg tablet 1,000 mg (2 x 500 mg) PO Q6H PRN PRN Pain Score 1-10 #0 tabs 03/11/24 levetiracetam 500 mg tablet 500 mg PO BID 30 days #60 tabs 03/11/24 Hospital Course Operations None Procedures None Summary of Care Provided Minutes Spent on Discharge: 35 Hospital Course: 89 year old male with below past medical history hospitalized for encephalopathy 2/2 seizure disorder, complicated by ANDREWS, dehydration, UTI, urinary retention, admitted to TCU with debility, here for rehabilitation, strengthening, prior to discharge home with . [place] home with and family support 03/11, [facility] PT/OT/ST Physical Exam Const alert General Appearance: cooperative HEENT normocephalic Eyes PERRL and EOMs intact bilaterally Neck supple, no JVD and no carotid bruits Resp normal respiratory effort, normal air movement and clear to auscultation bilaterally Cardio regular rate and regular rhythm GI normal to inspection, nondistended, normoactive bowel sounds, non-tender and non-distended Extremity normal capillary refill General Extremity: Negative for edema Skin no rashes or lesions noted General Skin Exam: no breakdown Psych affect normal Appearance: appropriate Weight / BMI Weight Weight: 64.7 kg Body Mass Index (BMI) 22.4 ABG / Lab / Microbiology Data 03/06/24 05:10 03/06/24 05:10 Microbiology: Microbiology 03/08/24 10:20 Urine Catheter - Catheter Urine Culture - Final Culture exhibits no growth. D/C Instructions Discharge Diet: No restrictions Discharge Activity: Return to Normal Activity, May Shower and Use Walker Weight Bearing Status: Weight bearing as tolerated Call your doctor if you observe: Fever of 101 or Higher, Inability to urinate, Inability to have a bowel movement, Shortness of breath, Dizziness, Fainting spells, Swelling in the ankles, Chest pain and Uncontrolled pain Additional Instructions: DC home with and family support 03/11, [facility] PT/OT/ST Meaningful Use Info Meaningful Use Meaningful Use Diagnoses (Choose all that apply): None applicable Ischemic Stroke Statin Dosing Therapy Reference: STATIN DOSE THERAPY REFERENCE: * Patients > 75 years receive moderate or high dose statin therapy. * Patients 75 years or YOUNGER should receive HIGH intensity statin dose unless contraindicated. You will be required to document reason for non-treatment if statin daily dose does not meet guidelines. HIGH DOSE STATIN THERAPY DAILY Atorvastatin > than or = to 40 mg Rosuvastatin > than or = to 20 mg Amlodipine + Atorvastatin > than or = to 2.5/40 mg Ezetimibe + Simvastatin 10/80 mg Simvastatin 80mg Discharge Plan Admission Admit Date/Time: 03/05/24 18:05 Primary Reason for Your Visit: Debility. Attending Provider: Darius Maddox Chi Primary Care Provider: Daniel Amador Instructions Additional Instructions / Restrictions: DC home with and family support 03/11, [facility] PT/OT/ST Discharge Orders/Prescriptions Prescriptions: New levetiracetam 500 mg Tablet 500 mg PO BID 30 Days Qty: 60 0RF acetaminophen 500 mg Tablet 1,000 mg PO Q6H PRN PRN (Reason: Pain Score 1-10) Qty: 0 0RF Continued omeprazole 20 MG capsule 20 mg PO DAILY Patient Comments: acid reflux lisinopril 10 mg tablet 10 mg PO DAILY meclizine 25 mg tablet 25 mg PO TID PRN PRN (Reason: dizziness or vertigo) tamsulosin 0.4 mg capsule 0.4 mg PO DAILY cyanocobalamin (vitamin B-12) [Vitamin B-12] 500 mcg tablet 500 mcg PO DAILY Discontinued lisinopril 5 MG tablet 5 mg PO DAILY Qty: 30 0RF Patient Comments: blood pressure levetiracetam 500 mg tablet 500 mg PO BID Referrals / Follow Up: Daniel Amador MD [Primary Care Provider] - ( to make appt) Disposition Disposition (needs filled in before D/C Order can be placed): Home, Self Care
--- NOTE | 2024-03-14 11:52 | MDS.RN ---
Information for the MDS was obtained from review of the clinical record, interview of resident, staff, and direct observation of resident?s care.
== END 2024-03-11 18:46 | disposition home or self-care (01) | DRG 101 ==
PROVIDERS: Admitting Provider Family Medicine Geriatric Medicine; PCP Family Medicine; Referring Provider Family Medicine Geriatric Medicine; Visit Provider Family Medicine Geriatric Medicine
DX: G40.909 Epilepsy, unspecified, not intractable, without status epilepticus (principal); G93.49 Other encephalopathy; N39.0 Urinary tract infection, site not specified; I10 Essential (primary) hypertension; J45.909 Unspecified asthma, uncomplicated; K22.2 Esophageal obstruction; E53.8 Deficiency of other specified B group vitamins; K21.9 Gastro-esophageal reflux disease without esophagitis; H81.10 Benign paroxysmal vertigo, unspecified ear; H10.9 Unspecified conjunctivitis; R33.8 Other retention of urine; N40.1 Benign prostatic hyperplasia with lower urinary tract symptoms; Z87.891 Personal history of nicotine dependence; G47.00 Insomnia, unspecified; Z79.899 Other long term (current) drug therapy; R29.810 Facial weakness
CPT/HCPCS: 36415; 80048; 81001; 82607; 85025; 87086; 92507; 92523; 92610; 97110; 97116; 97129; 97130; 97162; 97166; 97530; 97535; 97802; A4216

== ENCOUNTER 2024-03-20 13:00 | Outpatient (RCR) | payer MEDICARE, SELFPAY | END 2024-03-20 19:00 | disposition home or self-care (01) | LOC: PT 13:00 | PROVIDERS: PCP Family Medicine; Referring Provider Family Medicine Geriatric Medicine; Visit Provider Family Medicine Geriatric Medicine | DX: R41.82 Altered mental status, unspecified (principal); K22.2 Esophageal obstruction; R53.81 Other malaise | CPT/HCPCS: 97110; 97129; 97130; 97162; 97165; 97530 ==

== ENCOUNTER 2024-09-24 18:40 | Observation (INO) | payer MEDICARE, SELFPAY ==
[2024-09-24 18:40] VITALS: BP 172/88; PULSE 102; RESP 18; TEMP 36.8; O2SAT 92; BMI 23.8
--- NOTE | 2024-09-24 19:37 | EKG12_ITS ---
Test Reason : FALL Blood Pressure : */* mmHG Vent. Rate : 84 BPM Atrial Rate : 84 BPM P-R Int : 186 ms QRS Dur : 94 ms QT Int : 378 ms P-R-T Axes : 32 -36 41 degrees QTcB Int : 446 ms Sinus rhythm with occasional Premature ventricular complexes Left axis deviation Minimal voltage criteria for LVH, may be normal variant ( R in aVL ) Abnormal ECG Confirmed by YISEL RAYMOND, PLACIDO ([id number]), purchasing expeditor KERON HUERTA ([id number]) on 09/25/2024 10:37:24 AM Referred By: Confirmed By: PLACIDO MORILLO MD
--- NOTE | 2024-09-24 19:38 | ED.VIS.FALL ---
HPI HPI - Fall History of Present Illness Chief Complaint: Fall Informant: patient and family Narrative Narrative: Brought by EMS from home with daughter present. States 5:50 PM standing on his bed he states felt unwell all symptoms on the ground. Fell on his left side. Slightly bumped his head. No headache no loss of conscious. No anticoagulants. No neck chest or back pain. States pain on his left side. He ambulates with the cane as needed. Had difficulty getting up therefore EMS was contacted. Denies recent cough denies recent vomiting diarrhea. Denies any urinary symptoms. States he is drinking fluids at home. Daughter concerns for why he fell. [facility] Medical History History of esophageal dilatation Esophageal stenosis Urinary retention BPH (benign prostatic hyperplasia) Essential (primary) hypertension Seizure disorder Urinary tract infection Dehydration Acute kidney injury Acute encephalopathy Debility Home Medications ?Medication ?Instructions ?Recorded ?Last Taken ?Type omeprazole 20 mg capsule,delayed 40 mg PO DAILY GERD 01/02/16 09/24/24 History release cyanocobalamin (vitamin B-12) 500 500 mcg PO DAILY Supplement 03/05/24 09/24/24 History mcg tablet (Vitamin B-12) meclizine 25 mg tablet 25 mg PO TID PRN PRN dizziness or 03/05/24 Unknown History vertigo tamsulosin 0.4 mg capsule 0.4 mg PO DAILY Bladder 03/05/24 09/24/24 History acetaminophen 500 mg tablet 1,000 mg (2 x 500 mg) PO Q6H PRN 03/11/24 Unknown Rx PRN Pain Score 1-10 #0 tabs Allergy/AdvReac Type Severity Reaction Status Date / Time egg Allergy Anaphylaxis Verified 09/24/24 18:40 Family History Mother Colon cancer Father Cancer Surgical History History of colectomy History of left inguinal hernia repair History of esophagogastroduodenoscopy (EGD) Social History household members: spouse Smoking Status: Former smoker alcohol intake: never substance use type: does not use ROS ROS ED Constitutional Constitutional ED: Denies fever(s) Cardiovascular Cardiovascular: Denies chest pain Respiratory/Chest Respiratory/Chest: Denies cough Gastrointestinal Gastrointestinal: Denies abdominal pain, diarrhea or vomiting Genitourinary Genitourinary ED: Denies dysuria or hematuria Musculoskeletal Musculoskeletal: Reports other Details: Left hip pain. Integumentary Reports wounds; Denies rash Neurologic Neurologic: Denies headache(s) or weakness EXAM Physical Exam Const Vital Signs: 09/24/24 18:40 09/24/24 22:38 09/24/24 23:31 Temperature 98.2 F 98.2 F Temperature Source Oral Pulse Rate 102 H 108 H 108 H Respiratory Rate 18 22 H 22 H Blood Pressure 172/88 H 130/60 H 130/60 H Blood Pressure Mean 116 83 83 Pulse Ox 92 92 92 Oxygen Delivery Method Room Air Positive well nourished and well developed Constitutional Narrative: GCS 15. General Appearance ED: well developed and NAD HEENT HEENT Narrative: Mild dry mucosal membranes. normocephalic and atraumatic Eyes General Eye ED: Yes normal appearance of both eyes Neck full ROM Neck Narrative: Nontender no step-offs. Chest Wall inspection of chest normal and palpation of chest normal Chest: Negative for tenderness Resp normal respiratory effort and normal air movement Effort and Inspection: symmetric chest movement; Negative for respiratory distress Cardio regular rate, regular rhythm and no murmurs Peripheral Pulses: pulses 2+ throughout GI normal to inspection, nondistended, normoactive bowel sounds and non-tender Palpation: Negative for guarding or rebound tenderness present Extremity normal to inspection Extremity Narrative: Left lower extremity. Very mild tenderness lateral greater trochanteric. No shortening or rotation. Negative logroll. Right lower extremity: Nontender. Upper extremities full range of motion. Left elbow skin tear with no active bleeding. No bony tenderness. Full range of motion. Soft compartments. General Extremety ED: Yes tenderness; Negative for edema General Extremity: Negative for edema Neuro oriented x3 and no sensory deficits noted Sensorium / Orientation: awake and alert Skin no rashes or lesions noted and no wounds MDM MDM MDM Narrative Medical decision making narrative: Interventions / MDM: Differential diagnosis: Fall, left hip contusion, inability to ambulate Diagnosis considered but do not suspect: Fracture however x-ray negative. My EKG interpretation: Sinus rate of 84, no ST or T wave changes PACs noted. QTc 446. Imaging independently reviewed and interpreted by myself: 3 view left hip with pelvis: No hip or pelvic fracture or dislocation noted. External documents reviewed: N/A Test considered but not ordered:N/A ED course: Patient was fall felt weak seconds prior no chest pains no shortness of breath no recent cough. Mild dry mucosal membranes. Low suspicion for hip fracture clinically negative logroll. Will check EKG labs and urine. Will give fluids for dry mucosal membranes. Will check hip x-rays. He declines any pain medicines. 2300: EKG normal labs normal urine negative for infection. Later states he will take the Tylenol for pain. This was ordered. Attempted to ambulate, however reported too much discomfort. I stressed this hip multiple times with no pain with logroll low suspicion for an occult fracture of hip. Daughter states her mother had surgery a week ago she is unable to care for him like this. I will discuss with hospitalist for admission. I spoke with hospitalist Dr. Shultz for admission to medical floor. Due to his pain will obtain CT scan while in the ED prior to admission for further evaluation. Re-evaluation: stable Disposition discussed with patient/family/significant other: Patient and daughter Case discussed with consulting clinician: Hospitalist This note was generated with [employer] dictation software. It may contain incorrect words, spelling, and punctuation that were not noted in checking the note before signing. Lab Data Attestation: I reviewed the patient's lab results. Labs: Laboratory Results - last 24 hr 09/24/24 09/24/24 19:59 22:00 WBC 11.7 H RBC 4.69 Hgb 14.1 Hct 42.7 MCV 91.0 MCH 30.1 MCHC 33.0 RDW Std Deviation 49.0 H RDW Coeff of [place] 14.6 Plt Count 203 MPV 11.2 Immature Gran % (Auto) 1.100 H Neut % (Auto) 72.9 H Lymph % (Auto) 13.3 L [place] % (Auto) 6.5 Eos % (Auto) 5.8 H Baso % (Auto) 0.4 Absolute Neuts (auto) 8.5 H Absolute Lymphs (auto) 1.55 Nucleated RBC % 0 Sodium 143 Potassium 4.4 Chloride 108 Carbon Dioxide 24.8 Anion Gap 10 BUN 24 H Creatinine 1.21 H Estim Creat Clear Calc 36.71 L Est GFR (MDRD) Non-Af 58 L BUN/Creatinine Ratio 19.6 Glucose 105 H Calcium 9.2 Magnesium 2.1 Urine Color Yellow Urine Clarity Clear Urine pH 6.5 Ur Specific [place] 1.015 Urine Protein 30 H Urine Glucose (UA) Normal Urine Ketones 15 H Urine Occult Blood Negative Urine Nitrite Negative Urine Bilirubin Negative Urine Urobilinogen 1 H Ur Leukocyte Esterase Negative Urine RBC 0-5 SEEN Urine WBC 0-5 SEEN Ur Squamous Epith Cells 0-5 SEEN Urine Bacteria 0 SEEN Urine Mucus 0 SEEN Radiography Diagnostic Testing: Clinical Impression(s) from Imaging Studies Hip/Pelvis X-Ray 09/24/24 20:05 IMPRESSION: Loss of sphericity of the femoral heads. 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 Reading Location: [id number] Pelvis [address] 09/24/24 23:21 IMPRESSION: Acute nondisplaced fracture of the left inferior pubic ramus for example axial 88. Fracture of the anterior inferior left acetabular wall for example axial 73 without displacement. No dislocation. Other incidental findings as above. Reading Location: [id number] Discharge Plan Dx/Rx/DC Orders Clinical Impression: Fall, Inability to ambulate due to hip, Contusion of left hip Disposition Disposition: Acute Care Hospital [facility] Discharge Date/Time: 09/25/24 00:11
[2024-09-24] MEDS: 0.9% Normal Saline (1000mL) 1,000 ML 1000 ML IV (19:58)
--- NOTE | 2024-09-24 20:05 | RAD_ITS ---
PROCEDURE: HIP, UNI W/ PELVIS 2-3 VIEWS 09/24/2024 REASON FOR EXAM: INJURY TECHNIQUE: 3 views of the 3 hip COMPARISON: None. FINDINGS: Bones: No evidence of acute fracture. Loss of sphericity of the femoral heads. Joints: Mild axial joint space narrowing. Soft tissues: Dense rectal stool. Other: None. RAD/HIP, UNI W/ Pelvis 2-3 Views IMPRESSION: Loss of sphericity of the femoral heads. Nonspecific, but consider cam type fe moroacetabular impingement. Reading Location: [place] [id number]
[2024-09-24 20:14] LABS: Absolute Lymphocyte Count 1.55 X10^3/uL (0.83-4.51); Absolute Neutrophil Count 8.5 X10^3/uL (2.0-7.7); Basophil# 0.05 X10^3/uL; Basophil% 0.4 % (0-1); Eosinophil# 0.68 X10^3/uL; Eosinophils% 5.8 % (0-5); Hematocrit 42.7 % (40-54); Hemoglobin 14.1 g/dL (13.0-16.5); Lymphocyte # 1.55 X10^3/ul (0.83-4.51); Lymphocyte % 13.3 % (19-41); Mean Corpuscular Hgb 30.1 pg (27.0-32.0); Mean Platelet Vol. 11.2 fl (6.2-12.0); Monocyte# 0.76 X10^3/uL; Monocyte% 6.5 % (0-10); NRBC Flagged by Analyzer 0 % (0-5); Neutrophil # 8.51 X10^3/uL (2.7-7.7); Neutrophil % 72.9 % (47-70); Platelet Count 203 K/mm3 (150-450); RBC Distribution Width CV 14.6 % (11.6-14.6); Red Blood Count 4.69 M/mm3 (4.6-6.2); White Blood Count 11.7 K/mm3 (4.4-11.0)
[2024-09-24 21:09] LABS: Anion Gap 10 (5-15); BUN 24 mg/dL (4-19); BUN/Creat Ratio 19.6 RATIO (10-20); Calcium,Total 9.2 mg/dL (7.6-11.0); Carbon Dioxide 24.8 mmol/L (21.0-32.0); Chloride 108 mmol/L (98-108); Creatinine, Serum 1.21 mg/dL (0.70-1.20); EST Glomerular Filtration Rate 58 (>60); Estimated Creatinine Clearance 36.71 ml/min (50-250); Glucose 105 mg/dL (70-99); Potassium 4.4 mmol/L (3.3-5.1); Sodium Level 143 mmol/L (133-145)
[2024-09-24 22:17] LABS: Bacteria 0 SEEN /hpf (None Seen); Mucous, Urine 0 SEEN /hpf (<or=2+)
[2024-09-24 22:31] LABS: Color, Urine Yellow (Yellow); Glucose, Dipstick Normal (Normal); Ketone-Dipstick 15 mg/dl (Negative); Leukocyte Esterase-Dipstick Negative /ul (Negative); Nitrite-Dipstick Negative (Negative); Occult Blood-Urine Negative /ul (Negative); Protein-Dipstick 30 mg/dl (Negative); Specific Gravity, Urine 1.015 (1.002-1.030); Urine Bilirubin Dipstick Negative (Negative); Urine Clarity Clear (Clear); Urine Urobilinogen 1 mg/dl (Normal); Urine pH 6.5 (5.0 - 8.0)
[2024-09-24 22:38] VITALS: BP 130/60; PULSE 108; RESP 22; O2SAT 92
[2024-09-24 22:47] LABS: Red Blood Cells-Urine 0-5 SEEN /hpf (0-5); Squamous Epithelial Cells - UA 0-5 SEEN /hpf (0-5); White Blood Cells 0-5 SEEN /hpf (0-5)
[2024-09-24] MEDS: Acetaminophen 500 MG Tablet 1000 MG PO (22:47)
--- NOTE | 2024-09-24 23:17 | PCM.HP.STD ---
[facility] - General General Date of Admission: 09/24/24 Date of Service: 09/24/24 Chief Complaint: Fall with Inability to Ambulate. HPI Narrative AYESHA JACOBSEN, is a 89 M with a past medical history of essential hypertension; on lisinopril, history of seizure disorder; on levetiracetam, history of vertigo; on meclizine, history of asthma, BPH with urinary retention; on tamsulosin, history of colectomy, history of Left inguinal hernia; s/p repair, GERD with history of esophageal stenosis with foreign body; s/p dilatation on omeprazole and OA; with chronic debility causing patient to use cane to ambulate at baseline who presents to [facility] ER complaining of fall with persistent inability to ambulate. Mr. Jacobsen reports his symptoms began approximately 5:50 PM this evening when he was standing up to get out of bed, when he suddenly felt unwell and then promptly fell to the ground onto his Left side. He admits to a slight blow to his head but he denies LOC with his fall or headache. He does complain of pain on his Left-side, particularly over his Left hip with inability to ambulate so EMS was activated. He denies associated limb shortening, limb rotation, fever, chills, nausea, vomiting, diarrhea, constipation, abdominal pain, chest pain, palpitations, heart racing, headache, rash or recent illness. 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 He was then admitted to the general medical floor under observation status for ongoing care for a stay that is expected to be less than 2 midnights. COUNT INCLUDES THE [facility] Medical History History of esophageal dilatation Esophageal stenosis Urinary retention BPH (benign prostatic hyperplasia) Essential (primary) hypertension Seizure disorder Urinary tract infection Dehydration Acute kidney injury Acute encephalopathy Debility Home Medications ?Medication ?Instructions ?Recorded ?Last Taken ?Type omeprazole 20 mg capsule,delayed 40 mg PO DAILY GERD 01/02/16 09/24/24 History release cyanocobalamin (vitamin B-12) 500 500 mcg PO DAILY Supplement 03/05/24 09/24/24 History mcg tablet (Vitamin B-12) meclizine 25 mg tablet 25 mg PO TID PRN PRN dizziness or 03/05/24 Unknown History vertigo tamsulosin 0.4 mg capsule 0.4 mg PO DAILY Bladder 03/05/24 09/24/24 History acetaminophen 500 mg tablet 1,000 mg (2 x 500 mg) PO Q6H PRN 03/11/24 Unknown Rx PRN Pain Score 1-10 #0 tabs Allergy/AdvReac Type Severity Reaction Status Date / Time egg Allergy Anaphylaxis Verified 09/24/24 18:40 Family History Mother Colon cancer Father Cancer Surgical History History of colectomy History of left inguinal hernia repair History of esophagogastroduodenoscopy (EGD) Social History household members: spouse Smoking Status: Former smoker alcohol intake: never substance use type: does not use ROS ROS Narrative Review of Systems: Constitutional: Patient denies fever or chills. Eyes: Patient denies changes in vision or discharge from eyes. ENT: Patient denies runny nose, sore throat or ear pain. Resp: Patient denies SOB or cough. CV: Patient denies chest pain, palpitations, heart racing or LE edema. GI: Patient denies abdominal pain, nausea, vomiting, diarrhea or constipation. : Patient denies dysuria or hematuria. MSK: Patient admits to Left-sided pain after fall with inability to ambulate. Skin: Patient denies rash, abscess, wounds or jaundice. Psych: Patient denies symptoms of uncontrolled depression or anxiety. Allergy: Patient denies lip swelling, tongue swelling or urticaria. Hematology: Patient denies easy bleeding or easy bruisability. Endocrinology: Patient denies polyuria, polydipsia, polyphagia or heat/cold intolerance. 14 point ROS otherwise negative except for positives noted above. Vital Signs Vital Signs Vital Signs: 09/24/24 18:40 09/24/24 22:38 Temperature 98.2 F Temperature Source Oral Pulse Rate 102 H 108 H Respiratory Rate 18 22 H Blood Pressure 172/88 H 130/60 H Blood Pressure Mean 116 83 Pulse Ox 92 92 Oxygen Delivery Method Room Air Weight Weight: 142 lb 13.753 oz Body Mass Index (BMI) 23.8 Physical Exam Const alert, oriented x3 and average body habitus Constitutional Narrative: Mild distress noted. General Appearance: cooperative HEENT normocephalic, head/scalp atraumatic and hearing grossly normal bilaterally HEENT Narrative: Mucous membranes dry. Eyes PERRL, EOMs intact bilaterally and conjunctivae normal Neck no lymphadenopathy, supple and no JVD Resp normal respiratory effort, no retractions, no use of accessory muscles and clear to auscultation bilaterally Cardio regular rate and regular rhythm GI normal to inspection, nondistended, normoactive bowel sounds, soft to palpation, non-tender and non-distended Extremity Extremity Narrative: Left hip TTP with no shortening or external rotation with no signs of vascular compromise. Skin Skin Narrative: Patient has no evidence of rash. Neuro oriented x3, CN's II-XII intact bilaterally, moves all extremities and no focal motor deficits Neuro Narrative: Patient refuses to try to ambulate due to pain. Sensorium / Orientation: awake, alert, oriented to person, oriented to place and oriented to time Speech: speech normal Psych affect normal Results Medical Records Data Attestation: I reviewed the patient's medical records Lab / Micro Data Attestation: I reviewed the patient's lab results. 09/25/24 04:51 09/24/24 19:59 Labs: Laboratory Results - last 24 hr 09/24/24 19:59: WBC 11.7 H, RBC 4.69, Hgb 14.1, Hct 42.7, MCV 91.0, MCH 30.1, MCHC 33.0, RDW Std Deviation 49.0 H, RDW Coeff of [place] 14.6, Plt Count 203, MPV 11.2, Immature Gran % (Auto) 1.100 H, Neut % (Auto) 72.9 H, Lymph % (Auto) 13.3 L, [place] % (Auto) 6.5, Eos % (Auto) 5.8 H, Baso % (Auto) 0.4, Absolute Neuts (auto) 8.5 H, Absolute Lymphs (auto) 1.55, Nucleated RBC % 0, Sodium 143, Potassium 4.4, Chloride 108, Carbon Dioxide 24.8, Anion Gap 10, BUN 24 H, Creatinine 1.21 H, Estim Creat Clear Calc 36.71 L, Est GFR (MDRD) Non-Af 58 L, BUN/Creatinine Ratio 19.6, Glucose 105 H, Calcium 9.2 09/24/24 22:00: Urine Color Yellow, Urine Clarity Clear, Urine pH 6.5, Ur Specific [place] 1.015, Urine Protein 30 H, Urine Glucose (UA) Normal, Urine Ketones 15 H, Urine Occult Blood Negative, Urine Nitrite Negative, Urine Bilirubin Negative, Urine Urobilinogen 1 H, Ur Leukocyte Esterase Negative, Urine RBC 0-5 SEEN, Urine WBC 0-5 SEEN, Ur Squamous Epith Cells 0-5 SEEN, Urine Bacteria 0 SEEN, Urine Mucus 0 SEEN Imaging Radiology Impression Hip/Pelvis X-Ray 09/24/24 20:05 IMPRESSION: Loss of sphericity of the femoral heads. 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 Reading Location: [id number] Imaging Services [address] [place] [id number] Pelvis without IV Contrast MR#: [id number] Acct: [id number] Name: AYESHA JACOBSEN Rep #: [id number] : 1935 M 89 From: Ayesha Lugo MD PCP: Dr. Nimisha Cutler MD Status: ADM BENITO Study: Pelvis without IV Contrast Date of Exam: 09/24/24 Exam# [id number] Ordering Dr: Gerardo Duque DO PROCEDURE: PELVIS WITHOUT IV CONTRAST 09/24/2024 REASON FOR EXAM: LEFT HIP PAIN TECHNIQUE: Pelvis CT without contrast. One or more dose reduction techniques were used (e.g., Automated exposure control, adjustment of the mA and/or kV according to patient size, use of iterative reconstruction technique). RADIATION DOSE SUMMARY: CTDlvol: 14.34 mGy DLP: 461.80 mGycm FINDINGS: Acute nondisplaced fracture of the left inferior pubic ramus for example axial 88. Fracture of the anterior inferior left acetabular wall for example axial 73 without displacement. No dislocation. Pubic symphysis appears intact. Symmetric appearance of the SI joints. No pelvic free fluid seen. Aortoiliac atherosclerotic changes with undulating iliac vessels. Diverticulosis sigmoid colon. Prostate enlarged at 5.9 cm. Appearance of a 6 mm ureteral stone at the UVJ without evidence of visualized upstream ureteral dilation. Small bowel containing right inguinal hernia without evidence of obstructive change. Multilevel lower lumbar spondylosis/discogenic change severe disc space narrowing and degenerative endplate changes on the left at L3-4 and on the right at L4-5. CT/Pelvis without IV Contrast IMPRESSION: Acute nondisplaced fracture of the left inferior pubic ramus for example axial 88. Fracture of the anterior inferior left acetabular wall for example axial 73 without displacement. No dislocation. Other incidental findings as above. Reading Location: [facility] CC: Dr. Nimisha Cutler MD; Dr. Gerardo Duque DO ~ Agricultural Equipment Operator: Signed Assessment & Plan Assessment/Plan (1) Fall: QUALIFIERS: Encounter type: initial encounter Qualified Code(s): W19.XXXA - Unspecified fall, initial encounter (2) Inferior pubic ramus fracture: QUALIFIERS: Encounter type: initial encounter Fracture type: closed Laterality: left Qualified Code(s): S32.592A - Other specified fracture of left pubis, initial encounter for closed fracture (3) Contusion of left hip: QUALIFIERS: Encounter type: initial encounter Qualified Code(s): S70.02XA - Contusion of left hip, initial encounter (4) Inability to ambulate due to hip: (5) Debility: PLAN: Plan 1. Fall with Left Hip Pain and inability to ambulate in the setting of chronic debility with patient ambulating with cane at baseline with CT pelvis revealing acute nondisplaced fracture of the Left inferior pubic ramus - Admit to general medical floor under observation status. Give acetaminophen prn for [id number] (level 1-5/10) pain or fever. Give oxycodone prn for severe (level 6-10/10) pain. Finally, we will consult PT/OT and Case Management to see this patient on-rounds in the AM for further recommendations with help appreciated in advance. 2. Leukocytosis of 11.7K present on admission with no signs of infection due to suspected acute stress response complicating #1 - Check CBC in AM to follow trend. 3. Essential hypertension; on lisinopril - Continue current regimen. 4. History of seizure disorder; on levetiracetam - Resume levetiracetam as before. 5. History of vertigo; on prn meclizine - Maintain prn meclizine if vertigo develops. 6. History of asthma - Stable with no evidence of flare. 7. BPH with urinary retention; on tamsulosin - Continue tamsulosin as previous. 8. History of colectomy - Noted. 9. History of Left inguinal hernia; s/p repair - Noted. 10. GERD with history of esophageal stenosis with foreign body; s/p dilatation on omeprazole - Resume PPI. 11. OA - Give acetaminophen prn as outlined in #1. 12. DVT prophylaxis - Heparin 5,000U sq BID plus SCD's. Total time: Approximately (but not less than) 70 minutes. Charges/Coding Visit Charges OBSV E&M: 29641 Observ/hosp same date L2
--- NOTE | 2024-09-24 23:21 | CT_ITS ---
PROCEDURE: PELVIS WITHOUT IV CONTRAST 09/24/2024 REASON FOR EXAM: LEFT HIP PAIN TECHNIQUE: Pelvis CT without contrast. One or more dose reduction techniques were used (e.g., Automated exposure control, adjustment of the mA and/or kV according to patient size, use of iterative reconstruction technique). RADIATION DOSE SUMMARY: CTDlvol: 14.34 mGy DLP: 461.80 mGycm FINDINGS: Acute nondisplaced fracture of the left inferior pubic ramus for example axial 88. Fracture of the anterior inferior left acetabular wall for example axial 73 without displacement. No dislocation. Pubic symphysis appears intact. Symmetric appearance of the SI joints. No pelvic free fluid seen. Aortoiliac atherosclerotic changes with undulating iliac vessels. Diverticulosis sigmoid colon. Prostate enlarged at 5.9 cm. Appearance of a 6 mm ureteral stone at the UVJ without evidence of visualized upstream ureteral dilation. Small bowel containing right inguinal hernia without evidence of obstructive change. Multilevel lower lumbar spondylosis/discogenic change severe disc space narrowing and degenerative endplate changes on the left at L3-4 and on the right at L4-5. CT/Pelvis without IV Contrast IMPRESSION: Acute nondisplaced fracture of the left inferior pubic ramus for example axial 88. Fracture of the anterior inferior left acetabular wall for example axial 73 without displacement. No dislocation. Other incidental findings as above. Reading Location: [id number]
[2024-09-24 23:31] VITALS: BP 130/60; PULSE 108; RESP 22; TEMP 36.8; O2SAT 92
[2024-09-25] VITALS (7 sets, daily range): BP systolic 100–165; BP diastolic 66–94; PULSE 86–107; RESP 16–20; TEMP 36.3–37; O2SAT 92–97; BMI 26.4
[2024-09-25 00:07] LABS: Magnesium 2.1 mg/dL (1.5-2.2)
[2024-09-25] MEDS: 0.9% Normal Saline (1000mL) 1,000 ML 70 ML IV (01:16)
[2024-09-25 05:11] LABS: Absolute Lymphocyte Count 1.37 X10^3/uL (0.83-4.51); Absolute Neutrophil Count 9.2 X10^3/uL (2.0-7.7); Basophil# 0.05 X10^3/uL; Basophil% 0.4 % (0-1); Eosinophil# 0.39 X10^3/uL; Eosinophils% 3.3 % (0-5); Hemoglobin 13.1 g/dL (13.0-16.5); Lymphocyte # 1.37 X10^3/ul (0.83-4.51); Lymphocyte % 11.5 % (19-41); Mean Corp Hgb Conc 33.6 g/dL (32-36); Mean Corpuscular Volume 89.4 fL (80-94); Mean Platelet Vol. 11.7 fl (6.2-12.0); Monocyte# 0.87 X10^3/uL; Monocyte% 7.3 % (0-10); NRBC Flagged by Analyzer 0 % (0-5); Neutrophil # 9.16 X10^3/uL (2.7-7.7); Neutrophil % 76.8 % (47-70); POSITIVE COUNT YES; RBC Distribution Width CV 14.3 % (11.6-14.6); RBC Distribution Width SD 47.1 fl (35.1-43.9); Red Blood Count 4.36 M/mm3 (4.6-6.2); White Blood Count 11.9 K/mm3 (4.4-11.0)
[2024-09-25 05:26] LABS: Differential Indicated SCAN CRITERIA MET
[2024-09-25 06:33] LABS: ALB/GLOB Ratio 1.1 RATIO (0.9-2.4); AST(SGOT) 17 U/L (<=37); Alanine Aminotransfer ALT/SGPT 7 U/L (<=46); Albumin, Serum 3.3 g/dL (3.4-4.8); Alkaline Phosphatase 70 U/L (40-129); Anion Gap 11 (5-15); BUN 20 mg/dL (4-19); BUN/Creat Ratio 20.9 RATIO (10-20); Calcium,Total 8.7 mg/dL (7.6-11.0); Carbon Dioxide 20.3 mmol/L (21.0-32.0); Chloride 110 mmol/L (98-108); Creatinine, Serum 0.96 mg/dL (0.70-1.20); EST Glomerular Filtration Rate 76 (>60); Estimated Creatinine Clearance 41.05 ml/min (50-250); Globulin 2.9 g/dL (2.2-4.2); Glucose 101 mg/dL (70-99); Phosphorus 2.9 mg/dL (2.7-4.5); Platelet Count 209 K/mm3 (150-450); Protein, Total 6.2 g/dL (5.9-8.4); Sodium Level 142 mmol/L (133-145); Total Bilirubin 0.79 mg/dL (0.00-1.30)
--- NOTE | 2024-09-25 08:15 | PCM.PN.HOSP ---
Reason for Visit Reason for Visit: Inability to walk Subjective Subjective Patient was not aware that he had a nondisplaced fracture of the inferior pubic ramus as his CT results were not back at the time of his admission. We discussed the findings of that this was self-limiting and he would be weightbearing as tolerated. No surgical intervention required. Family at bedside. They state that he will likely need to go to rehab and they would prefer the transitional care unit if possible. Pain is currently fairly well-managed. I did transition some of his medication regimen so his Tylenol would be scheduled. Objective Data Objective Data Vital Signs: Vital Signs Temp Pulse Resp BP Pulse Ox O2 Del Method 98.6 F 86 18 145/72 H 94 Room Air 09/25/24 06:45 09/25/24 06:45 09/25/24 06:45 09/25/24 06:45 09/25/24 06:45 09/25/24 06:45 Oxygen Delivery Method Room Air Weight: 61.4 kg Body Mass Index (BMI) 26.4 Intake & Output: Intake and Output for Last 24 Hours 09/23/24 09/24/24 09/25/24 23:59 23:59 23:59 Intake Total 1000 / 1000 300 / 300 Output Total 250 / 250 Balance 1000 / 1000 50 / 50 Lab / Micro Data 09/25/24 04:51 09/25/24 04:51 Labs: Laboratory Results - last 24 hr 09/24/24 19:59: WBC 11.7 H, RBC 4.69, Hgb 14.1, Hct 42.7, MCV 91.0, MCH 30.1, MCHC 33.0, RDW Std Deviation 49.0 H, RDW Coeff of Brook 14.6, Plt Count 203, MPV 11.2, Immature Gran % (Auto) 1.100 H, Neut % (Auto) 72.9 H, Lymph % (Auto) 13.3 L, [place] % (Auto) 6.5, Eos % (Auto) 5.8 H, Baso % (Auto) 0.4, Absolute Neuts (auto) 8.5 H, Absolute Lymphs (auto) 1.55, Nucleated RBC % 0, Sodium 143, Potassium 4.4, Chloride 108, Carbon Dioxide 24.8, Anion Gap 10, BUN 24 H, Creatinine 1.21 H, Estim Creat Clear Calc 36.71 L, Est GFR (MDRD) Non-Af 58 L, BUN/Creatinine Ratio 19.6, Glucose 105 H, Calcium 9.2, Magnesium 2.1 09/24/24 22:00: Urine Color Yellow, Urine Clarity Clear, Urine pH 6.5, Ur Specific [place] 1.015, Urine Protein 30 H, Urine Glucose (UA) Normal, Urine Ketones 15 H, Urine Occult Blood Negative, Urine Nitrite Negative, Urine Bilirubin Negative, Urine Urobilinogen 1 H, Ur Leukocyte Esterase Negative, Urine RBC 0-5 SEEN, Urine WBC 0-5 SEEN, Ur Squamous Epith Cells 0-5 SEEN, Urine Bacteria 0 SEEN, Urine Mucus 0 SEEN 09/25/24 04:51: WBC 11.9 H, RBC 4.36 L, Hgb 13.1, Hct 39.0 L, MCV 89.4, MCH 30.0, MCHC 33.6, RDW Std Deviation 47.1 H, RDW Coeff of [place] 14.3, Plt Count 209, MPV 11.7, Immature Gran % (Auto) 0.700, Neut % (Auto) 76.8 H, Lymph % (Auto) 11.5 L, [place] % (Auto) 7.3, Eos % (Auto) 3.3, Baso % (Auto) 0.4, Absolute Neuts (auto) 9.2 H, Absolute Lymphs (auto) 1.37, Nucleated RBC % 0, Sodium 142, Potassium 4.0, Chloride 110 H, Carbon Dioxide 20.3 L, Anion Gap 11, BUN 20 H, Creatinine 0.96, Estim Creat Clear Calc 41.05 L, Est GFR (MDRD) Non-Af 76, BUN/Creatinine Ratio 20.9 H, Glucose 101 H, Calcium 8.7, Phosphorus 2.9, Total Bilirubin 0.79, AST 17, ALT 7, Alkaline Phosphatase 70, Total Protein 6.2, Albumin 3.3 L, Globulin 2.9, Albumin/Globulin Ratio 1.1, TSH 0.490 Radiography Diagnostic Testing: Radiology Impression Hip/Pelvis X-Ray 09/24/24 20:05 IMPRESSION: Loss of sphericity of the femoral heads. 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 Reading Location: [id number] 09/24/24 23:21 IMPRESSION: Acute nondisplaced fracture of the left inferior pubic ramus for example axial 88. Fracture of the anterior inferior left acetabular wall for example axial 73 without displacement. No dislocation. Other incidental findings as above. Reading Location: [facility] Physical Exam Const oriented x3, no apparent distress, average body habitus and well nourished Constitutional Narrative: Very pleasant, elderly, white male, sitting up in bed, daughter at bedside, appears comfortable, nontoxic HEENT head/scalp atraumatic and moist oral mucous membranes HEENT Narrative: Moderate hearing loss Head and Scalp: normocephalic Resp normal respiratory effort, no retractions, no use of accessory muscles and clear to auscultation bilaterally Auscultation: Negative for rales, rhonchi or wheezes Cardio regular rate, regular rhythm, S1 normal heart sound, S2 normal heart sound, no rub, no gallops and no clicks; Negative for no murmurs Cardio Narrative: 3 out of 6 systolic murmur loudest at right upper sternal border GI normal to inspection, nondistended, normoactive bowel sounds, soft to palpation and non-tender Extremity no clubbing, cyanosis or edema Extremity Narrative: Pedal and radial pulses are 2+ Neuro oriented x3, moves all extremities and no focal motor deficits Speech: speech normal Psych Psych Narrative: Very pleasant, interacts appropriately, hearing impairment limits interaction some Assessment & Plan Assessment/Plan (1) Inferior pubic ramus fracture: QUALIFIERS: Encounter type: initial encounter Fracture type: closed Laterality: left Qualified Code(s): S32.592A - Other specified fracture of left pubis, initial encounter for closed fracture (2) Inability to ambulate due to hip: (3) Leukocytosis: (4) Elevated serum creatinine: PLAN: Plan Acute nondisplaced fracture of the left inferior pubic ramus - Stable fracture and no surgical intervention required - Weightbearing as tolerated - Stop as needed Tylenol and scheduled 1 g every 8 - Continue as needed oxycodone - Start scheduled stool softener - Check vitamin D level - PT/OT consultation - Case management/social work consultation as patient may need placement versus home health care at discharge depending on how he does with therapy services - Patient prefers TCU if possible Leukocytosis - Suspect reactive - No signs of infection Elevated serum creatinine - 1.21 on presentation and patient did appear to be slightly dry - Down to 0.96 this morning - Avoid nephrotoxins as able Essential hypertension - Patient is not on any medication at baseline - As needed hydralazine for systolic pressure greater than 160 History of seizure disorder - Initially it was thought the patient was on Keppra however the family reports this was discontinued - Will discontinue Keppra order History of vertigo - Continue home as needed meclizine 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
[2024-09-25] MEDS: Heparin Injection (Vial) 5,000 UNIT/ML VIAL 5000 UNIT SC ×2 (09:12→21:06)
[2024-09-25] MEDS: Pantoprazole Sodium 20 MG Tablet PO (09:12)
[2024-09-25] MEDS: Tamsulosin HCl 0.4 MG Capsule PO (09:12)
[2024-09-25] MEDS: Lisinopril 10 MG Tablet PO (09:12)
[2024-09-25] MEDS: Cyanocobalamin 500 MCG Tablet PO (09:13)
[2024-09-25] MEDS: Senna/Docusate Sodium 1 Tablet 2 TABLET PO ×2 (09:26→21:12)
[2024-09-25] MEDS: Acetaminophen 500 MG Tablet 1000 MG PO ×3 (09:27→21:11)
[2024-09-25] MEDS: Ensure Plus High Protein 120 ML LIQUID PO ×3 (09:27→21:10)
[2024-09-25 10:34] LABS: Vitamin D,25 Hydroxy 9.4 ng/mL (30-100)
--- NOTE | 2024-09-25 10:48 | CASEMGMT ---
MADONNA CM into pt room, pt sitting up in bed with dtr at bedside. Pt agreeable to discussion with dtr present. Pt reports he lives in a single story home with 3-4 steps to enter with his . Prior to this fall, pt was I in ADLs and could perform IADLs but states his dtr and perform them. Pt ambulates typically with a cane, he has a walker but does not use. Pt and dtr states they prefer to go to [facility] Rehab unit if the insurance will cover and if not prefers [facility] TCU. Pt denies a need for a list of other options. Pt is aware that once he has therapy, this process can be initiated based on results. Pt and dtr deny any further needs at this time. Updated SW.
--- NOTE | 2024-09-25 10:55 | CASEMGMT ---
MADONNA CM in to discuss GARAY form with patient. RN CM explained GARAY form, patient voiced understanding. Pt signed form and filed in chart. Pt provided with a copy of signed GARAY form. Patient had no further questions or concerns at this time.
--- NOTE | 2024-09-25 13:27 | MRI_ITS ---
PROCEDURE: BRAIN WITHOUT CONTRAST 09/25/2024 REASON FOR EXAM: ? STROKE TECHNIQUE: Noncontrast brain MRI. Multiplanar and multisequence images were obtained. COMPARISON: None. FINDINGS: Brain: Right frontal and parietal tiny foci of restricted diffusion suspicious for acute infarctions. Severe chronic microvascular ischemia. Ventricles: Moderate global parenchymal atrophy. Consistent with the overall degree of cerebral atrophy. Sinuses: Bilateral maxillary sinus scattered mucosal thickening. Mastoids: Partial bilateral mastoid effusions. MRI/Brain without Contrast IMPRESSION: Right frontal and parietal tiny foci of restricted diffusion suspicious for acu te infarctions. Parenchymal atrophy and chronic microvascular ischemia. Reading Location: [place] [id number]
--- NOTE | 2024-09-25 13:58 | CASEMGMT ---
Social Work RNCM notified SW that pt is requesting placement at [facility] first and [facility] second. SW met with pt and dgt and informed that [facility] will not be able to accept pt due to insurance coverage but TCU would be a possibility. Pt is agreeable to TCU and denies need for list of SNF choices if TCU is able to accept. Referral to TCU and they are able to accept pt. Precert will be started tomorrow. Pt and dgt notified and agreeable. Plan: TCU, pending acceptance [facility]
--- NOTE | 2024-09-25 19:08 | CDU_ITS ---
Reason For Study Reason For Study: Stroke Rt. Velocities/BP Lt. Velocities/BP Prox CCA 34.4/5.7 cm/sec. Prox CCA 53.2/11.6 cm/sec. Mid CCA 61.9/10.2 cm/sec. Mid CCA 64.5/14.5 cm/sec. Dist CCA 48.7/11.3 cm/sec. Dist CCA 54.1/10.7 cm/sec. Prox ICA 24.3/6.7 cm/sec. Prox ICA 50.6/10.0 cm/sec. Mid ICA 45.0/13.8 cm/sec. Mid ICA 40.1/10.0 cm/sec. Dist ICA 58.3/19.9 cm/sec. Dist ICA 47.5/11.0 cm/sec. Rt. ICA/CCA = 0.9. Lt. ICA/CCA = 0.8. Prox ECA 65.2/4.7 cm/sec. Prox ECA 61.0/3.4 cm/sec. Rt. Vert. 44.6/9.0 cm/sec. Lt. Vert. 64.6/17.9 cm/sec. Right Extracranial There is heterogeneous, irregular atherosclerotic plaque noted in the right common carotid artery. There is heterogeneous, irregular atherosclerotic plaque noted in the right internal carotid artery. There is heterogeneous, irregular atherosclerotic plaque noted in the right external carotid artery. Antegrade flow is noted in the right vertebral artery. Left Extracranial There is homogeneous, smooth atherosclerotic plaque noted in the left common carotid artery. There is heterogeneous, irregular atherosclerotic plaque noted in the left internal carotid artery. There is heterogeneous, irregular atherosclerotic plaque noted in the left external carotid artery. Antegrade flow is noted in the left vertebral artery. Procedure Carotid Duplex 13205. This is a Carotid Duplex examination using B-mode, color flow and specral Doppler. Exam performed portable in patient room. VL/Carotid Duplex Ultrasound Interpretation Summary Mild (<50%) stenosis right extracranial internal carotid. Mild (<50%) stenosis left extracranial internal carotid. Patent and antegrade vertebrals bilaterally Ordering Physician: Juju Vuong Referring Physician: Nimisha Cutler MD Performed By: Jenni Wills RVT
--- NOTE | 2024-09-25 19:12 | PCM.HOSP.N ---
Hospitalist Note During physical therapy today patient seemingly had some mild focal weakness was difficult to ascertain due to his pain however it sounded like maybe he was having some symptoms at home and it was unclear why he had his fall. We obtain an MRI of his brain. 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 We will transfer him to PCU to complete stroke workup and for NIH monitoring. Therapy services are already involved. Will start aspirin 81 mg daily tomorrow with a full dose aspirin today as well as Plavix 75 mg daily. Atorvastatin 40 mg daily was started and we will obtain a lipid profile. Monitor on telemetry. I did call his daughter and update her with regards to findings on the MRI and then transferred to the progressive care unit.
[2024-09-25 19:33] LABS: Hemoglobin A1c 5.4 % (<=5.6)
--- NOTE | 2024-09-25 19:52 | NURSING ---
report called to omaira in pcu. pt will go to room 115
--- NOTE | 2024-09-25 20:28 | ECHOD_ITS ---
Reason For Study Reason For Study: STROKE Procedure This was a 2D Doppler, Color Flow transthoracic echocardiogram. Exam performed portable in patient room. Left Ventricle Normal LV size. The estimated ejection fraction is 55 %. No evidence for diastolic dysfunction. No regional wall motion abnormalities noted. Right Ventricle Normal RV size. Normal systolic function. Atria The left and right atria are normal. No doppler evidence for ASD. Mitral Valve There is moderate to severe mitral annular calcification. There is no mitral valve stenosis. Trivial mitral valve insufficiency. Tricuspid Valve There is no tricuspid stenosis. Mild tricuspid valve insufficiency. Aortic Valve Moderate diffuse aortic valve thickening. Mild aortic stenosis. No aortic valve insufficiency. Pulmonic Valve There is no pulmonic valvular stenosis. Trivial pulmonic valve insufficiency. Great Vessels Normal sized aortic root. Pericardium/Pleural No pericardial effusion. MMode/2D Measurements & Calculations LVIDd: 5.1 cm IVSd: 1.4 cm LVOT diam: 2.0 cm LVIDs: 3.8 cm LVPWd: 1.2 cm LVOT area: 3.3 cm2 FS: 24.3 % Ao root diam: 3.4 cm LAV(MOD-sp4): 52.0 ml LVAd ap4: 25.6 cm2 LVLd ap4: 8.0 cm EDV(MOD-sp4): 66.5 ml EDV(sp4-el): 69.4 ml LVAs ap4: 16.1 cm2 LVLs ap4: 7.0 cm ESV(MOD-sp4): 31.1 ml ESV(sp4-el): 31.5 ml EF(MOD-sp4): 53.3 % EF(sp4-el): 54.6 % SV(MOD-sp4): 35.4 ml SV(sp4-el): 37.9 ml LA A4 area: 19.2 cm2 SI(MOD-sp4): 22.4 ml/m2 LA dimension(2D): 4.1 cm RA A4 area: 12.0 cm2 Time Measurements MV dec time: 0.17 sec Doppler Measurements & Calculations MV E max ronny: 36.9 cm/sec Lat Peak E' Ronny: 6.5 cm/sec Med Peak E' Ronny: 3.7 cm/sec MV A max ronny: 83.5 cm/sec E/E' lat: 5.7 E/E' med: 10.1 MV E/A: 0.44 Ao V2 max: 159.3 cm/sec LV V1 max: 164.0 cm/sec MV dec slope: 214.5 cm/sec2 Ao max P.6 mmHg LV V1 max P.9 mmHg Ao V2 mean: 113.1 cm/sec LV V1 mean P.6 mmHg Ao mean P.6 mmHg LV V1 mean: 85.2 cm/sec Ao V2 VTI: 32.1 cm LV V1 VTI: 33.4 cm AV (velocity ratio): 1.0 CHANNING(I,D): 3.4 cm2 CHANNING(V,D): 3.3 cm2 SV(LVOT): 108.7 ml PA V2 max: 126.3 cm/sec PI end-d ronny: 138.3 cm/sec PA V2 mean: 83.5 cm/sec TR max ronny: 297.5 cm/sec TR max P.4 mmHg ECHO/Echo Complete Interpretation Summary The estimated ejection fraction is 55 %. No evidence for diastolic dysfunction. Trivial mitral valve insufficiency. Mild aortic stenosis. Ordering Physician: Juju Vuong Referring Physician: VENANCIO OSEGUERA Performed By: Loli Bowen RCS
[2024-09-25] MEDS: Aspirin 325 MG Tablet PO (21:05)
[2024-09-25] MEDS: Atorvastatin Calcium 40 MG Tablet PO (21:10)
[2024-09-26] VITALS (11 sets, daily range): BP systolic 111–151; BP diastolic 72–78; PULSE 78–101; RESP 16–20; TEMP 36.4–36.7; O2SAT 65–97; BMI 26.4; BMI 27.4
[2024-09-26 04:55] LABS: Hemoglobin 13.3 g/dL (13.0-16.5); Mean Corp Hgb Conc 32.4 g/dL (32-36); Mean Corpuscular Hgb 29.9 pg (27.0-32.0); Mean Corpuscular Volume 92.1 fL (80-94); Mean Platelet Vol. 11.6 fl (6.2-12.0); Platelet Count 141 K/mm3 (150-450); RBC Distribution Width CV 14.6 % (11.6-14.6); RBC Distribution Width SD 48.9 fl (35.1-43.9); Red Blood Count 4.45 M/mm3 (4.6-6.2); White Blood Count 10.1 K/mm3 (4.4-11.0)
[2024-09-26 05:31] LABS: Cholesterol 176 mg/dL (<=200); High Density Lipoprotein 59 mg/dL; Low Density Lipoprotein Calc. 103 mg/dL; Phosphorus 2.9 mg/dL (2.7-4.5); Triglycerides 73 mg/dL; Very Low Density Lipoprotein 15 mg/dL (5-40); cholesterol:hdl ratio screen 2.99
[2024-09-26 05:37] LABS: Anion Gap 11 (5-15); BUN 24 mg/dL (4-19); BUN/Creat Ratio 23.9 RATIO (10-20); Calcium,Total 8.6 mg/dL (7.6-11.0); Carbon Dioxide 18.4 mmol/L (21.0-32.0); Chloride 111 mmol/L (98-108); Creatinine, Serum 1.02 mg/dL (0.70-1.20); EST Glomerular Filtration Rate 71 (>60); Estimated Creatinine Clearance 38.63 ml/min (50-250); Glucose 90 mg/dL (70-99); Potassium 4.4 mmol/L (3.3-5.1); Sodium Level 140 mmol/L (133-145)
[2024-09-26] MEDS: Acetaminophen 500 MG Tablet 1000 MG PO ×3 (05:52→21:48)
[2024-09-26] MEDS: Clopidogrel Bisulfate 75 MG Tablet PO (09:56)
[2024-09-26] MEDS: Cyanocobalamin 500 MCG Tablet PO (09:56)
[2024-09-26] MEDS: Pantoprazole Sodium 20 MG Tablet PO (09:56)
[2024-09-26] MEDS: Senna/Docusate Sodium 1 Tablet 2 TABLET PO ×2 (09:57→21:47)
[2024-09-26] MEDS: Aspirin 81 MG TAB.CHEW PO (09:57)
[2024-09-26] MEDS: Tamsulosin HCl 0.4 MG Capsule PO (09:57)
[2024-09-26] MEDS: Ensure Plus High Protein 120 ML LIQUID PO ×2 (10:02→21:53)
[2024-09-26] MEDS: Heparin Injection (Vial) 5,000 UNIT/ML VIAL 5000 UNIT SC ×2 (10:03→21:47)
--- NOTE | 2024-09-26 12:49 | CON.PCM.NE_ITS ---
Assessment and Plan: Stroke Assessment/Plan AYESHA JACOBSEN is a 89 year old right handed male with history of HTN, Seizure on keppra, Vertigo, BPH, and ashtma who on 09/24/24 fell at 550p with generalized weakness and dysarthria. He presented to [facility]. CT pelvis showed acute left pubic ramus fracture. MRI brain DWI + small acute right MCA scattered infarcts. He was started on Asa/plavix and lipitor. LDL 103, HgbA1c 5.4. Neurological examination shows mild dysarthria and mild left leg weakness (due to pain), NIHSS-2 (LLE-1, dys-1) ASSESSMENT/PLAN: Acute right MCA ischemic stroke, post stroke day #2. 1) Agree with completing inpatient stroke work-up with TTE, CUS. If the testing is negative, then final recs would be medical management. 2) Continue daily anti-platelet medication dAPT (Asa/plavix x 21 days per [facility] protocol and then discontinue Plavix and continue Asa only thereafter). 3) Continue vascular risk factor modification. On lipitor. 4) PT/OT consults- acute rehab. 6) Recommend EM on discharge. Follow-up in outpatient neurology clinic. Primary team messaged recs on backline. HPI Consult Data Date of Consult: 09/26/24 HPI Narrative HPI Narrative: AYESHA JACOBSEN, is a 89 year old right handed male with history of HTN, Seizure on keppra, Vertigo, BPH, and ashtma who on 09/24/24 fell at 550p. Patient does not know why he fell, but states he felt unwell. He reports generalized weakness. He presented to [facility]. CT pelvis showed acute left pubic ramus fracture. He was admitted. MRI brain DWI + small acute right MCA scattered infarcts. He was started on Asa/plavix and lipitor. At baseline patient ambulates with cane. He reports he can not walk currently. PT consults recommended inpatient rehab. This morning he feels at baseline. RN reports family felt he had dysarthria. [facility] Medical History History of esophageal dilatation Esophageal stenosis Urinary retention BPH (benign prostatic hyperplasia) Essential (primary) hypertension Seizure disorder Urinary tract infection Dehydration Acute kidney injury Acute encephalopathy Debility Home Medications ?Medication ?Instructions ?Recorded ?Last Taken ?Type omeprazole 20 mg capsule,delayed 40 mg PO DAILY GERD 0 01/02/16 09/24/24 History release cyanocobalamin (vitamin B-12) 500 500 mcg PO DAILY Sup plement 03/05/24 09/24/24 History mcg tablet (Vitamin B-12) meclizine 25 mg tablet 25 mg PO TID PRN PRN dizzine ss or 03/05/24 Unknown History vertigo tamsulosin 0.4 mg capsule 0.4 mg PO DAILY Bladder 02/0609/24/24 History acetaminophen 500 mg tablet 1,000 mg (2 x 500 mg) PO Q 6H PRN 03/11/24 Unknown Rx PRN Pain Score 1-10 #0 tabs Allergy/AdvReac Type Severity Reaction Status Date / Time egg Allergy Anaphylaxis Verified 09/24/24 18:40 Family History Mother Colon cancer Father Cancer Surgical History History of colectomy History of left inguinal hernia repair History of esophagogastroduodenoscopy (EGD) Social History household members: spouse Smoking Status: Former smoker alcohol intake: never substance use type: does not use Vital Signs Vital Signs Vital Signs: 09/25/24 14:00 09/25/24 14:00 09/25/24 20:28 Temperature 97.5 F L 98.1 F Temperature Source Oral Oral Pulse Rate 107 H 105 H Respiratory Rate 18 16 Respiratory Effort Normal Respiratory Depth Normal Respiratory Pattern Normal Blood Pressure 100/66 112/78 Blood Pressure Mean 77 89 Blood Pressure Source Monitor Monitor Blood Pressure Position Semi-Fowlers Semi-Fowlers Blood Pressure Location Right Arm Right Arm Pulse Ox 97 92 Oxygen Delivery Method Room Air Room Air Room Air Oxygen Flow Rate (L/min) 09/25/24 21:58 09/25/24 22:00 09/25/24 22:30 Temperature 98.2 F Temperature Source Oral Pulse Rate 88 Respiratory Rate 16 Respiratory Effort Normal Respiratory Depth Normal Respiratory Pattern Normal Blood Pressure 122/75 H Blood Pressure Mean 90 Blood Pressure Source Monitor Blood Pressure Position Semi-Fowlers Blood Pressure Location Right Arm Pulse Ox 97 97 Oxygen Delivery Method Nasal Cannula Nasal Cannula Room Air Oxygen Flow Rate (L/min) 2 2 09/26/24 02:00 09/26/24 02:29 09/26/24 05:48 Temperature 97.5 F L 97.8 F Temperature Source Oral Oral Pulse Rate 82 83 Respiratory Rate 20 H 16 Respiratory Effort Normal Respiratory Depth Normal Respiratory Pattern Normal Blood Pressure 151/78 H 118/72 Blood Pressure Mean 102 87 Blood Pressure Source Monitor Monitor Blood Pressure Position Semi-Fowlers Semi-Fowlers Blood Pressure Location Left Arm Left Arm Pulse Ox 65 97 Oxygen Delivery Method Nasal Cannula Nasal Cannula Nasal Cannula Oxygen Flow Rate (L/min) 2 2 2 09/26/24 07:02 09/26/24 09:15 09/26/24 09:35 Temperature 97.7 F L Temperature Source Oral Pulse Rate 82 Respiratory Rate 17 Respiratory Effort Respiratory Depth Respiratory Pattern Blood Pressure 134/78 H Blood Pressure Mean 96 Blood Pressure Source Monitor Blood Pressure Position Sitting Blood Pressure Location Left Arm Pulse Ox 97 96 95 Oxygen Delivery Method Nasal Cannula Nasal Cannula Oxygen Flow Rate (L/min) 2 2 2 09/26/24 09:45 Temperature Temperature Source Pulse Rate Respiratory Rate Respiratory Effort Normal Respiratory Depth Normal Respiratory Pattern Normal Blood Pressure Blood Pressure Mean Blood Pressure Source Blood Pressure Position Blood Pressure Location Pulse Ox Oxygen Delivery Method Nasal Cannula Oxygen Flow Rate (L/min) 2 Weight Weight: 63.4 kg Body Mass Index (BMI) 27.4 Physical Exam Neuro Neuro Narrative: Neurological examination: General: The patient appears nutritionally appropriate, well-groomed, and appears comfortable in no acute distress. Mental Status: The patient?s mental status was normal including orientation. Language was intact. Cranial nerves: No visual complaints, and extra-ocular motion was intact. Face motion symmetric. Tongue was midline with normal movement. There was mild dysarthria. Motor: Normal strength in bilateral upper and right lower extremities. Left leg weakness due to pain (from fracture). No pronator drift. Sensation: Intact light touch bilaterally, no extinction. Coordination: Bilateral finger to nose was normal. There was no dysmetria. Gait: deferred Lab / Micro Data 09/26/24 04:02 09/26/24 04:02 Labs: Laboratory Results - last 24 hr 09/25/24 04:51: Hemoglobin A1c 5.4 09/26/24 04:02: WBC 10.1, RBC 4.45 L, Hgb 13.3, Hct 41.0, MCV 92.1, MCH 29.9, MCHC 32.4, RDW Std Deviation 48.9 H, RDW Coeff of Brook 14.6, Plt Count 141 L, MPV 11.6, Sodium 140, Potassium 4.4, Chloride 111 H, Carbon Dioxide 18.4 L, Anion Gap 11, BUN 24 H, Creatinine 1.02, Estim Creat Clear Calc 38.63 L, Est GFR (MDRD) Non-Af 71, BUN/Creatinine Ratio 23.9 H, Glucose 90, Calcium 8.6, Phosphorus 2.9, Magnesium 2.0, Triglycerides 73, Cholesterol 176, LDL Cholesterol, Calc 103, VLDL Cholesterol 15, HDL Cholesterol 59, Cholesterol/HDL Ratio 2.99 Imaging Radiology Impression Brain MRI 09/25/24 13:27 IMPRESSION: Right frontal and parietal tiny foci of restricted diffusion suspicious for acute infarctions. Parenchymal atrophy and chronic microvascular ischemia. Reading Location: [id number] Active Medications Active Medications Active Medications: Current Medications Generic Name Dose Route Start Last Admin Trade Name Freq PRN Reason Stop Dose Admin Acetaminophen 1,000 mg 09/25/24 08:30 09/26/24 05:52 Acetaminophen 500 Mg Tablet PO 1,000 mg Q8 TATY Administration Al Hydroxide/Mg Hydroxide 30 ml 09/25/24 00:45 Mag Hydrox/Al Hydrox/Simeth 30 Ml Udc PO Q6H PRN PRN Gastric Burning Albuterol Sulfate 2.5 mg 09/25/24 00:45 Albuterol 2.5 Mg/3 Ml Vial.Neb. INHALATION Q2H PRN PRN SOB &/OR WHEEZING Aspirin 81 mg 09/26/24 08:00 09/26/24 09:57 Aspirin 81 Mg Tab.Chew PO 81 mg DAILYCM TATY Administration Atorvastatin Calcium 40 mg 09/25/24 22:00 09/25/24 21:10 Atorvastatin Calcium 40 Mg Tablet PO 40 mg QHS TATY Administration Clopidogrel Bisulfate 75 mg 09/26/24 10:00 09/26/24 09:56 Clopidogrel Bisulfate 75 Mg Tablet PO 75 mg DAILY TATY Administration Cyanocobalamin 500 mcg 09/25/24 10:00 09/26/24 09:56 Cyanocobalamin 500 Mcg Tablet PO 500 mcg DAILY TATY Administration Heparin Sodium (Porcine) 5,000 unit 09/25/24 10:00 09/26/24 10:03 Heparin Injection (Vial) 5,000 Unit/Ml Vial SC 5,000 unit Q12 TATY Administration Hydralazine HCl 5 mg 09/25/24 20:28 Hydralazine 20 Mg/Ml Vial IV 09/26/24 20:28 Q30M PRN maintain BP parameters with HR <60 Sodium Chloride 250 mls @ 15 mls/hr 09/25/24 00:20 IV .[id number] PRN Saline Flush Sodium Chloride 250 mls @ 15 mls/hr 09/25/24 00:20 IV .[id number] PRN Additional IVPB Infusion Labetalol HCl 10 - 20 mg 09/25/24 20:28 Labetalol 20 Mg/4 Ml Vial IV 09/26/24 20:28 Q10M PRN PRN maintain BP parameters with HR >/=60 Lisinopril 10 mg 09/25/24 10:00 09/26/24 09:55 Lisinopril 10 Mg Tablet PO Not Given DAILY [facility] Protocol Magnesium Hydroxide 30 ml 09/25/24 00:45 Magnesium Hydroxide 30 Ml Udc PO DAILY PRN PRN Constipation Meclizine HCl 25 mg 09/25/24 00:45 Meclizine Hcl 25 Mg Tablet PO TID PRN PRN dizziness or vertigo Melatonin 3 mg 09/25/24 00:45 Melatonin 3 Mg Tablet PO QHS PRN PRN INSOMNIA Nutritional Formula (Lactose Free) 120 ml 09/25/24 10:00 09/26/24 10:02 Ensure Plus High Protein 120 Ml Liquid PO 120 ml 4X/DAY TATY Administration Ondansetron HCl 4 mg 09/25/24 00:45 Ondansetron 4 Mg/2 Ml Vial IV Q8H PRN PRN NAUSEA/VOMITING Oxycodone HCl 5 mg 09/25/24 00:45 Oxycodone 5 Mg Tablet PO Q6H PRN PRN Pain Score 6-10 Pantoprazole Sodium 20 mg 09/25/24 10:00 09/26/24 09:56 Pantoprazole Sodium 20 Mg Tablet PO 20 mg DAILY TATY Administration Senna/Docusate Sodium 2 tablet 09/25/24 10:00 09/26/24 09:57 Senna/Docusate Sodium 1 Tablet PO 2 tablet BID TATY Administration Sodium Chloride 10 - 40 ml 09/25/24 00:20 0.9% Saline Lock 10 Ml Syringe IV UD PRN SALINE FLUSH Tamsulosin HCl 0.4 mg 09/25/24 10:00 09/26/24 09:57 Tamsulosin Hcl 0.4 Mg Capsule PO 0.4 mg DAILY TATY Administration NIHSS NIHSS Nursing Documentation NIHSS Nursing Documentation: NIHSS: Ischemic Stroke/TIA Start: 09/25/24 20:28 Text: For PCU Patients: NIH and Neuro Check every 4 Status: Active hours, PRN and with change in RN caregiver. Freq: [id number] Protocol: Activity Type Activity Date Activity User E-sign Co-sign Detail Recorded Client Recorded Date Recorded By Document 09/26/24 09:35 [id number] 09/26/24 09:45 09/26/24 09:35 NIH Stroke Scale [NIHSS] A score of 0 is normal or asymptomatic . Total possible score is 42. Inpatient: RN or Physician to activate a stroke alert for onset of new stroke symptoms or with NIHSS increase >/= 3 points. Following change in neurological status, NIHSS will be performed per physician order or more frequently PRN. -1a. Level of Consciousness 0 - Alert; keenly responsive -1b. LOC Questions 0 - Answers BOTH questions correctly -1c. LOC Commands 0 - Performs BOTH tasks correctly -2. Best Gaze 0 - Normal -3. Visual 0 - No visual loss -4. Facial Palsy 1 - Minor paralysis ( flattened nasolabial fold , asymmetry on smiling) -5a. Left Arm 0 - No drift; arm holds 90 ( or 45) degrees for full 10 seconds -5b. Right Arm 0 - No drift; arm holds 90 ( or 45) degrees for full 10 seconds -6a. Left Leg 0 - No drift; leg holds 30- degree position for full 5 seconds -6b. Right Leg 0 - No drift; leg holds 30- degree position for full 5 seconds -7. Limb Ataxia 0 - Absent -8. Sensory 0 - Normal; no sensory loss -9. Best Language 0 - No aphasia; normal -10. Dysarthria 1 = Mild-to- moderate dysarthria; -11. Extinction and Inattention 0 - No abnormality -Total 2 Query Text:A score of 0 is normal or asymptomatic. Total possible score is 42 . ED: Notify Physician for NIHSS increase by > / = 3 points. Inpatient: RN or Physician to activate a stroke alert for NIHSS increase of > / = 3 points. Coma Scale [Assess] -Eye Opening Spontaneous -Motor Obeys Commands -Verbal Oriented [Total] -Coma Scale Total 15 NIHSS 1a. Level of Consciousness: 0 - Alert; keenly responsive 1b. LOC Questions: 0 - Answers BOTH questions correctly 1c. LOC Commands: 0 - Performs BOTH tasks correctly 2. Best Gaze: 0 - Normal 3. Visual: 0 - No visual loss 4. Facial Palsy: 0 - Normal symmetrical movements 5a. Left Arm: 0 - No drift; arm holds 90 (or 45) degrees for full 10 seconds 5b. Right Arm: 0 - No drift; arm holds 90 (or 45) degrees for full 10 seconds 6a. Left Le - Drift; leg falls by the end of 5-seconds, but does not hit bed 6b. Right Le - No drift; leg holds 30-degree position for full 5 seconds 7. Limb Ataxia: 0 - Absent 8. Sensory: 0 - Normal; no sensory loss 9. Best Language: 0 - No aphasia; normal 11. Extinction and Inattention: 0 - No abnormality Total: 1
--- NOTE | 2024-09-26 14:55 | CASEMGMT ---
SW completed a PHQ9 with patient as he had a Stroke. Patient scored a 3 which indicates minimal depression. SW provided patient with information on [facility] Stroke support group. SW also let patient know that we are just waiting on his insurance to approve him so he can go to [facility] TCU. Sherine WOO
[2024-09-26] MEDS: 0.9% Saline Lock 10 ML Syringe IV (16:08)
--- NOTE | 2024-09-26 17:10 | PN.HOSP_ITS ---
Reason for Visit Reason for Visit: Inability ambulate after fall Subjective Subjective No problems overnight. Patient states his pain is fairly well-controlled with the medication. Was able to work with therapy and get up and ambulate with his wheelchair. Patient did try to get up and walk independently today and fell to his knees. He did not sustain an injury and states he is okay. Objective Data Objective Data Vital Signs: Vital Signs Temp Pulse Resp BP Pulse Ox O2 Del Method O2 Flow Rate 97.7 F L 93 17 111/72 94 Room Air 2 09/26/24 13:35 09/26/24 16:07 09/26/24 16:07 09/26/24 16:07 09/26/24 16:07 09/26/24 16:07 09/26/24 09:45 Oxygen Flow Rate (L/min) 2 Oxygen Delivery Method Room Air Weight: 63.4 kg Body Mass Index (BMI) 27.4 Intake & Output: Intake and Output for Last 24 Hours 09/24/24 09/25/24 09/26/24 23:59 23:59 23:59 Intake Total 1000 / 1000 1300 / 1360 160 / 160 Output Total 250 / 250 250 / 250 Balance 1000 / 1000 1050 / 1110 -90 / -90 Lab / Micro Data 09/26/24 04:02 09/26/24 04:02 Labs: Laboratory Results - last 24 hr 09/25/24 04:51: Hemoglobin A1c 5.4 09/26/24 04:02: WBC 10.1, RBC 4.45 L, Hgb 13.3, Hct 41.0, MCV 92.1, MCH 29.9, MCHC 32.4, RDW Std Deviation 48.9 H, RDW Coeff of Brook 14.6, Plt Count 141 L, MPV 11.6, Sodium 140, Potassium 4.4, Chloride 111 H, Carbon Dioxide 18.4 L, Anion Gap 11, BUN 24 H, Creatinine 1.02, Estim Creat Clear Calc 38.63 L, Est GFR (MDRD) Non-Af 71, BUN/Creatinine Ratio 23.9 H, Glucose 90, Calcium 8.6, Phosphorus 2.9, Magnesium 2.0, Triglycerides 73, Cholesterol 176, LDL Cholesterol, Calc 103, VLDL Cholesterol 15, HDL Cholesterol 59, Cholesterol/HDL Ratio 2.99 Radiography Diagnostic Testing: Radiology Impression Brain MRI 09/25/24 13:27 IMPRESSION: Right frontal and parietal tiny foci of restricted diffusion suspicious for acute infarctions. Parenchymal atrophy and chronic microvascular ischemia. Reading Location: [id number] Carotid Duplex 09/25/24 19:08 Interpretation Summary Mild (<50%) stenosis right extracranial internal carotid. Mild (<50%) stenosis left extracranial internal carotid. Patent and antegrade vertebrals bilaterally Ordering Physician: Juju Vuong Referring Physician: Venancio Oseguera MD Performed By: Jenni Wills RVT Echocardiogram 09/25/24 20:28 Interpretation Summary The estimated ejection fraction is 55 %. No evidence for diastolic dysfunction. Trivial mitral valve insufficiency. Mild aortic stenosis. Ordering Physician: Juju Vuong Referring Physician: VENANCIO OSEGUERA Performed By: Loli Bowen RCS Physical Exam Const alert, oriented x3, no apparent distress, average body habitus and well nourished Constitutional Narrative: Very pleasant, elderly, white male, sitting up in bed, daughter at bedside, appears comfortable, nontoxic General Appearance: cooperative HEENT normocephalic, head/scalp atraumatic and moist oral mucous membranes Resp normal respiratory effort, no retractions, no use of accessory muscles and clear to auscultation bilaterally Auscultation: Negative for rales, rhonchi or wheezes Cardio regular rate, regular rhythm, S1 normal heart sound, S2 normal heart sound, no rub, no gallops and no clicks; Negative for no murmurs Cardio Narrative: 3 out of 6 systolic murmur loudest at right upper sternal border GI normal to inspection, nondistended, normoactive bowel sounds, soft to palpation and non-tender Extremity no clubbing, cyanosis or edema Extremity Narrative: Pedal and radial pulses are 2+ Skin Skin Narrative: Patient has no evidence of rash. Neuro oriented x3 and moves all extremities Speech: speech normal Psych affect normal Psych Narrative: Very pleasant, interacts appropriately Assessment & Plan Assessment/Plan (1) Inferior pubic ramus fracture: QUALIFIERS: Encounter type: initial encounter Fracture type: c losed Laterality: left Qualified Code(s): S32.592A - Other specified fracture of left pubis, initial encounter for closed fracture (2) Inability to ambulate due to hip: (3) Leukocytosis: (4) Elevated serum creatinine: (5) Acute ischemic right MCA stroke: (6) Vitamin D deficiency: PLAN: Plan Acute right MCA ischemic stroke - MRI shows right MCA scattered infarcts - Continue aspirin 81 mg - Continue Plavix 75 mg - Continue Lipitor 40 mg nightly - LDL is 103 and hemoglobin A1c is 5.4 - NIH is 2 for mild dysarthria and left leg weakness - Echocardiogram performed today and shows an EF of 55% with normal diastolic function and trivial mitral valve insufficiency with mild aortic valve stenosis - Carotid Dopplers with less than 50% stenosis bilateral and extracranial ICA arteries and patent vertebrals - Continue PT/OT - Will need event monitor at discharge - Outpatient referral to neurology after discharge - Plan is for transitional care at discharge and patient has been accepted with pre-CERT pending - Neurology has evaluated patient-appreciate input Acute nondisplaced fracture of the left inferior pubic ramus - Stable fracture and no surgical intervention required - Weightbearing as tolerated - Stop as needed Tylenol and scheduled 1 g every 8 - Continue as needed oxycodone - Continue scheduled stool softener - Vitamin D level is markedly low at 9.4--> will supplement - PT/OT following and recommends placement - Case management/social work following and plan is for TCU once pre-CERT is obtained Vitamin D deficiency - Vitamin D level 9.4 - Start ergocalciferol 50,000 units weekly x 7 weeks Leukocytosis - Resolved Elevated serum creatinine - Resolved 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 and has not been able to be compliant with CPAP Essential hypertension - Patient is not on any medication at baseline - As needed hydralazine for systolic pressure greater than 160 History of seizure disorder - Remote patient is not on any AEDs anymore History of vertigo - Continue home as needed meclizine 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 GERD/history of esophageal stenosis -Previous dilatation - Continue PPI DVT prophylaxis - Heparin subcu twice daily CODE STATUS - DNR CCA no intubation Charges/Coding Visit Charges Inpatient E&M: 32576 Subs Hosp L2 NIHSS NIHSS Nursing Documentation NIHSS Nursing Documentation: NIHSS: Ischemic Stroke/TIA Start: 09/25/24 20:28 Text: For PCU Patients: NIH and Neuro Check every 4 Status: Active hours, PRN and with change in RN caregiver. Freq: [id number] Protocol: Activity Type Activity Date Activity User E-sign Co-sign Detail Recorded Client Recorded Date Recorded By Document 09/26/24 13:35 [id number] 09/26/24 13:57 09/26/24 13:35 NIH Stroke Scale [NIHSS] A score of 0 is normal or asymptomatic . Total possible score is 42. Inpatient: RN or Physician to activate a stroke alert for onset of new stroke symptoms or with NIHSS increase >/= 3 points. Following change in neurological status, NIHSS will be performed per physician order or more frequently PRN. -1a. Level of Consciousness 0 - Alert; keenly responsive -1b. LOC Questions 0 - Answers BOTH questions correctly -1c. LOC Commands 0 - Performs BOTH tasks correctly -2. Best Gaze 0 - Normal -3. Visual 0 - No visual loss -4. Facial Palsy 1 - Minor paralysis ( flattened nasolabial fold , asymmetry on smiling) -5a. Left Arm 0 - No drift; arm holds 90 ( or 45) degrees for full 10 seconds -5b. Right Arm 0 - No drift; arm holds 90 ( or 45) degrees for full 10 seconds -6a. Left Leg UN - Amputation or joint fusion, explain : -'UN' explanation fracture inferior pubic ramus -6b. Right Leg 0 - No drift; leg holds 30- degree position for full 5 seconds -7. Limb Ataxia 0 - Absent -8. Sensory 0 - Normal; no sensory loss -9. Best Language 1 - Mild-to- moderate aphasia; -10. Dysarthria 0 - Normal -11. Extinction and Inattention 0 - No abnormality -Total 2 Query Text:A score of 0 is normal or asymptomatic. Total possible score is 42 . ED: Notify Physician for NIHSS increase by > / = 3 points. Inpatient: RN or Physician to activate a stroke alert for NIHSS increase of > / = 3 points. Coma Scale [Assess] -Eye Opening Spontaneous -Motor Obeys Commands -Verbal Oriented [Total] -Coma Scale Total 15
[2024-09-26] MEDS: Ergocalciferol 1.25 MG (50, 000 UNIT) Capsule PO (18:38)
[2024-09-26] MEDS: Atorvastatin Calcium 40 MG Tablet PO (21:47)
[2024-09-27] VITALS (8 sets, daily range): BP systolic 125–136; BP diastolic 72–77; PULSE 74–85; RESP 14–16; TEMP 36.5–36.7; O2SAT 92–94; BMI 27.4; BMI 27.3
[2024-09-27] MEDS: Acetaminophen 500 MG Tablet 1000 MG PO ×2 (05:19→14:07)
[2024-09-27] MEDS: Tamsulosin HCl 0.4 MG Capsule PO (08:30)
[2024-09-27] MEDS: Aspirin 81 MG TAB.CHEW PO (08:30)
[2024-09-27] MEDS: Pantoprazole Sodium 20 MG Tablet PO (08:31)
[2024-09-27] MEDS: Lisinopril 10 MG Tablet PO (08:31)
[2024-09-27] MEDS: Cyanocobalamin 500 MCG Tablet PO (08:31)
[2024-09-27] MEDS: Heparin Injection (Vial) 5,000 UNIT/ML VIAL 5000 UNIT SC (08:31)
[2024-09-27] MEDS: Clopidogrel Bisulfate 75 MG Tablet PO (08:31)
[2024-09-27] MEDS: Senna/Docusate Sodium 1 Tablet 2 TABLET PO (08:31)
[2024-09-27] MEDS: Ensure Plus High Protein 120 ML LIQUID PO ×2 (08:33→14:06)
[2024-09-27] MEDS: Metoprolol Tartrate 25 MG Tablet PO (10:44)
--- NOTE | 2024-09-27 13:00 | CASEMGMT ---
Social Work Spoke with Fior in admissions for [facility] TCU and RU and discharge planning progress. As patient is now noted in chart to have had a stroke, it appears patient now has a qualifying diagnosis for RU LOC. This was the family's first choice. Fior submitting precert for RU LOC today. Fior made aware patient is ready for discharge when precert is obtained. Presented to patient's room to update, but patient sleeping soundly. Called patient's daughter Amy to update. Amy with patient's , so is also aware. Family on board and thankful for efforts to try for the RU LOC, but express understanding this is dependent on insurance response. Plan: Anticipate RU at [facility]. -CLOTILDE Fonseca
--- NOTE | 2024-09-27 15:42 | DS.PCM_ITS ---
Providers Date of Admission: 09/24/24 Date of Discharge: 09/27/24 Primary Care Physician: Dr. Nimisha Cutler MD Reason For Visit: FALL WITH INABILITY TO AMBULATE 2/2 LEFT Diagnosis Discharge Diagnosis (1) Inferior pubic ramus fracture: Status: Acute Code(s): S32.599A - Other specified fracture of unspecified pubis, initial encounter for closed fracture Qualifiers: Encounter type: initial encounter Fracture type: closed Laterality: l eft Qualified Code(s): S32.592A - Other specified fracture of left pubis, initial encounter for closed fracture (2) Inability to ambulate due to hip: Status: Acute Code(s): R26.2 - Difficulty in walking, not elsewhere classified (3) Leukocytosis: Status: Acute Code(s): D72.829 - Elevated white blood cell count, unspecified (4) Elevated serum creatinine: Status: Acute Code(s): R79.89 - Other specified abnormal findings of blood chemistry (5) Acute ischemic right MCA stroke: Status: Acute Code(s): I63.511 - Cerebral infarction due to unspecified occlusion or stenosis of right middle cerebral artery (6) Vitamin D deficiency: Status: Acute Code(s): E55.9 - Vitamin D deficiency, unspecified Plan Acute right MCA ischemic stroke - MRI shows right MCA scattered infarcts - Continue aspirin 81 mg - Continue Plavix 75 mg - Continue Lipitor 40 mg nightly - LDL is 103 and hemoglobin A1c is 5.4 - NIH is 2 for mild dysarthria and left leg weakness - Echocardiogram performed today and shows an EF of 55% with normal diastolic function and trivial mitral valve insufficiency with mild aortic valve stenosis - Carotid Dopplers with less than 50% stenosis bilateral and extracranial ICA arteries and patent vertebrals - Continue PT/OT - Will need event monitor at discharge - Outpatient referral to neurology after discharge - Plan is for transitional care at discharge and patient has been accepted with pre-CERT pending - Neurology has evaluated patient-appreciate input Acute nondisplaced fracture of the left inferior pubic ramus - Stable fracture and no surgical intervention required - Weightbearing as tolerated - Stop as needed Tylenol and scheduled 1 g every 8 - Continue as needed oxycodone - Continue scheduled stool softener - Vitamin D level is markedly low at 9.4--> will supplement - PT/OT following and recommends placement - Case management/social work following and plan is for TCU once pre-CERT is obtained Vitamin D deficiency - Vitamin D level 9.4 - Start ergocalciferol 50,000 units weekly x 7 weeks Leukocytosis - Resolved Elevated serum creatinine - Resolved 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 and has not been able to be compliant with CPAP Essential hypertension - Patient is not on any medication at baseline - As needed hydralazine for systolic pressure greater than 160 History of seizure disorder - Remote patient is not on any AEDs anymore History of vertigo - Continue home as needed meclizine 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 GERD/history of esophageal stenosis -Previous dilatation - Continue PPI DVT prophylaxis - Heparin subcu twice daily CODE STATUS - DNR CCA no intubation Medications at Discharge Home Medications omeprazole 20 mg capsule,delayed release 40 mg PO DAILY GERD 01/02/16 cyanocobalamin (vitamin B-12) 500 mcg tablet (Vitamin B-12) 500 mcg PO DAILY Supplement 03/05/24 meclizine 25 mg tablet 25 mg PO TID PRN PRN dizziness or vertigo 03/05/24 tamsulosin 0.4 mg capsule 0.4 mg PO DAILY Bladder 03/05/24 acetaminophen 500 mg tablet 1,000 mg (2 x 500 mg) PO Q6H PRN PRN Pain Score 1-10 #0 tabs 03/11/24 Held on 09/27/24. Instructions: Until restarted acetaminophen 500 mg tablet 1,000 mg (2 x 500 mg) PO Q8 #0 tabs 09/27/24 aspirin 81 mg chewable tablet 81 mg PO DAILYCM #0 tabs 09/27/24 atorvastatin 40 mg tablet 40 mg PO QHS #0 tabs 09/27/24 clopidogrel 75 mg tablet 75 mg PO DAILY #0 tabs 09/27/24 ergocalciferol (vitamin D2) 1,250 mcg (50,000 unit) capsule (Vitamin D2) 1,250 mcg PO Q7D@1000 #0 caps 09/27/24 food supplemt, lactose-reduced 0.08 gram-1.5 kcal/mL oral liquid (Ensure Plus High Protein) 120 ml PO 4X/DAY #0 mL 09/27/24 heparin (porcine) 5,000 unit/mL injection solution 5,000 unit subcut Q12 #0 mL 09/27/24 lisinopril 10 mg tablet 10 mg PO DAILY #0 tabs 09/27/24 melatonin 10 mg sublingual tablet 10 mg PO QHS #0 tabs 09/27/24 metoprolol tartrate 25 mg tablet 25 mg PO BID #0 tabs 09/27/24 sennosides 8.6 mg-docusate sodium 50 mg tablet (Stimulant Laxative Plus) 2 tab PO BID #0 tabs 09/27/24 Hospital Course Operations None Procedures 2-D Echocardiogram and - (Hip and pelvic x-rays/carotid Dopplers/CT pelvis/MRI brain) Summary of Care Provided Minutes Spent on Discharge: 38 Hospital Course: Mr. Raines is an 89-year-old white male who presented to the emergency department at [facility] on 09/24/2024 due to fall with the inability ambulate. Upon presentation he reported that his symptoms began about 550 on the evening prior to presentation when he was standing up to get out of bed and then suddenly felt unwell and fell to the ground onto his left side. He was unclear what made him fall when he did but the result of the fall with a slight blow to his head with no loss of consciousness or headache and left-sided pain over his left hip with the inability ambulate. Since he was unable to get up EMS was called he was brought to the emergency department for further evaluation. He denied any other specific symptoms on his review of systems. Vital signs on presentation showed temperature of 98.2, heart rate 102, blood pressure was 172/88 and pulse ox was 92% on room air. CBC showed a very mild leukocytosis with a white count of 11.9 but was otherwise unremarkable. Chemistry panel showed mild elevated serum creatinine with a BUN of 24 and a serum creatinine 1.21. His UA was not consistent with infection. EKG was sinus rhythm with a few PVCs. Hip and pelvic x-ray showed loss of sphericity of the femoral heads consistent with arthritis but no other significant abnormalities were noted. A CT of the pelvis was performed since he was having very significant difficult time ambulating which showed acute nondisplaced fracture of the left inferior pubic ramus and a fracture of the anterior inferior left acetabular wall without any displacement or dislocation. Both were deemed stable fractures and he was admitted due to his inability to ambulate. He was placed on as needed pain medication as well as scheduled Tylenol. After he was evaluated the day following he was noted to have some left-sided weakness and his family thought he had a left facial droop and maybe some speech changes that have been ongoing for some time with an uncertain time of onset. Given this and his fall of unknown reason on presentation we obtained a stat MRI of his brain which showed 2 small strokes in the MCA territory. He was transferred to the telemetry floor and monitor on telemetry through the rest of his hospitalization. He was not found to have any arrhythmia including atrial fibrillation which would increase his risk for stroke. He was started on aspirin and Plavix as well as atorvastatin 40 mg nightly and stroke workup was pursued. NIH is were about 2 throughout his hospital course. An echocardiogram was obtained as well as carotid duplex. Echocardiogram showed an EF of 55% with no diastolic dysfunction and trivial mitral valve insufficiency with mild aortic stenosis. Carotid duplex showed less than 50% stenosis bilaterally. He was evaluated by neurology and they agreed with current therapy and recommended event monitor with outpatient follow-up with neurology. Given his stroke and his fracture family wanted to pursue rehab. He was excepted at rehab and pre- CERT was obtained on 09/27/2024. Medication changes during his hospital course included addition of atorvastatin, aspirin, Plavix, ergocalciferol, and metoprolol 25 mg p.o. twice daily. He will need to remain remain on dual antiplatelet therapy for 21 days then Plavix can be discarded he will should remain on aspirin 81 mg daily. The ergocalciferol was added due to markedly low vitamin D level at 9.4. He will need to be treated weekly for 7 weeks then repeat vitamin D level should be obtained. He probably should be on chronic vitamin D supplementation after he completes his high-dose vitamin D replacement. He was ordered an event monitor at the time of discharge as well. His pain was well-controlled with Tylenol only so he was maintained on this during his hospital stay scheduled and not discharged with any narcotics as he required no as needed doses during his hospitalization. He will need to follow- up with neurology within the next 3 months and his primary care physician within a week after discharge from TCU. 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 Essential hypertension History of seizure disorder History of vertigo BPH with obstruction GERD History of esophageal stenosis Physical Exam Const alert, oriented x3, no apparent distress, average body habitus, no limitations and well nourished Constitutional Narrative: Very pleasant, elderly, white male, sitting up in a chair at the bedside, watching television, appears comfortable, nontoxic General Appearance: cooperative, comfortable, well kempt and well developed Exam Limitations: no limitations Nutritional Appearance: overweight HEENT normocephalic, head/scalp atraumatic and moist oral mucous membranes HEENT Narrative: Mild to moderate hearing loss, Mallampati 2, dentures in place Eyes EOMs intact bilaterally and conjunctivae normal Eyes Narrative: No scleral icterus Neck supple Neck Narrative: Trachea midline Resp normal respiratory effort, no retractions, no use of accessory muscles and clear to auscultation bilaterally Auscultation: Negative for rales, rhonchi or wheezes Cardio regular rate, regular rhythm, S1 normal heart sound, S2 normal heart sound, no rub, no gallops and no clicks; Negative for no murmurs Cardio Narrative: 3 out of 6 systolic murmur loudest at right upper sternal border GI normal to inspection, nondistended, normoactive bowel sounds, soft to palpation and non-tender Extremity no clubbing, cyanosis or edema Extremity Narrative: Pedal and radial pulses are 2+ Skin skin turgor normal, no jaundice, no petechiae and no mottling Neuro oriented x3, moves all extremities and no focal motor deficits Sensorium / Orientation: awake Speech: speech normal Psych affect normal Psych Narrative: Very pleasant, interacts appropriately Weight / BMI Weight Weight: 63.2 kg Body Mass Index (BMI) 27.3 ABG / Lab / Microbiology Data 09/26/24 04:02 09/26/24 04:02 Radiography Diagnostic Testing: Radiology Impression Brain MRI 09/25/24 13:27 IMPRESSION: Right frontal and parietal tiny foci of restricted diffusion suspicious for acute infarctions. Parenchymal atrophy and chronic microvascular ischemia. Reading Location: [place] [address] D/C Instructions Discharge Diet: Low fat / Low cholesterol Discharge Activity: Return to Normal Activity Weight Bearing Status: Weight bearing as tolerated DC O2, CPAP, BIPAP Needs Home O2 Discharge instructions: Yes Type of respiratory needs?: Oxygen Oxygen frequency: With Sleeping Oxygen liters per minute when sleepin DC home with Oxygen: Yes Home O2 MD Review: I have reviewed the oxygen testing, and the patient qualifies for home oxygen equipment and portability. The patient is mobile in the home and the community. Meaningful Use Info Meaningful Use Meaningful Use Diagnoses (Choose all that apply): Ischemic CVA CVA Therapy Assessed for PT,OT and/or ST?: Yes Ischemic Stroke Antithrombotic order at d/c?: Yes Dx of Atrial fib/flutter?: No Anticoagulant at discharge?: No Reason anticoagulant not ordered: Treatment not Indicated Statin Dosing Therapy Reference: STATIN DOSE THERAPY REFERENCE: * Patients > 75 years receive moderate or high dose statin therapy. * Patients 75 years or YOUNGER should receive HIGH intensity statin dose unless contraindicated. You will be required to document reason for non-treatment if statin daily dose does not meet guidelines. HIGH DOSE STATIN THERAPY DAILY Atorvastatin > than or = to 40 mg Rosuvastatin > than or = to 20 mg Amlodipine + Atorvastatin > than or = to 2.5/40 mg Ezetimibe + Simvastatin 10/80 mg Simvastatin 80mg Statins at discharge?: Yes Primary Dx Acute Ischemic CVA?: Yes IV thrombolytic ordered during stay?: No Reason IV thrombolytic not ordered: Treatment not Indicated Discharge Plan Admission Admit Date/Time: 09/24/24 23:44 Primary Reason for Your Visit: Inability to walk Attending Provider: Juju Vuong Primary Care Provider: Nimisha Cutler Consulting Providers: Gerardo Vizcaino Discharge Orders/Prescriptions Prescriptions: New atorvastatin 40 mg Tablet 40 mg PO QHS Qty: 0 0RF sennosides-docusate sodium [Stimulant Laxative Plus] 8.6-50 mg Tablet 2 tab PO BID Qty: 0 0RF clopidogrel 75 mg Tablet 75 mg PO DAILY Qty: 0 0RF acetaminophen 500 mg Tablet 1,000 mg PO Q8 Qty: 0 0RF lisinopril 10 mg Tablet 10 mg PO DAILY Qty: 0 0RF aspirin 81 mg Tablet,Chewable 81 mg PO DAILYCM Qty: 0 0RF ergocalciferol (vitamin D2) [Vitamin D2] 1,250 mcg (50,000 unit) Capsule 1,250 mcg PO Q7D@1000 Qty: 0 0RF heparin (porcine) 5,000 unit/mL Solution 5,000 unit subcut Q12 Qty: 0 0RF metoprolol tartrate 25 mg Tablet 25 mg PO BID Qty: 0 0RF melatonin 10 mg Tablet, Sublingual 10 mg PO QHS Qty: 0 0RF Ensure Plus High Protein 0.08 gram-1.5 kcal/mL Liquid 120 ml PO 4X/DAY Qty: 0 0RF Continued omeprazole 20 MG capsule 40 mg PO DAILY Patient Comments: acid reflux meclizine 25 mg tablet 25 mg PO TID PRN PRN (Reason: dizziness or vertigo) tamsulosin 0.4 mg capsule 0.4 mg PO DAILY cyanocobalamin (vitamin B-12) [Vitamin B-12] 500 mcg tablet 500 mcg PO DAILY Held acetaminophen 500 mg Tablet 1,000 mg PO Q6H PRN PRN (Reason: Pain Score 1-10) Qty: 0 0RF Hold Instructions: Until restarted Other Ambulatory Orders: 30 Day Event Recorder Preventi (Urgent) Timeframe: 1 Day Facility: [facility] - Location: Cardiovascular Services Ordered By: Dr. Juju Vuong Referrals / Follow Up: Nimisha Cutler MD [Primary Care Provider] - Within 1 Week (After discharge from rehab) Jamil Castro MD [Non-Staff -Ordering Privileges] - Within 3 Months Disposition Disposition (needs filled in before D/C Order can be placed): Inpatient Rehab Unit/Facility Charges/Coding Visit Charges Inpatient E&M: 15584 Disch Hosp >30min
--- NOTE | 2024-09-27 16:23 | CASEMGMT ---
Social Work Pt has been accepted into the inpatient rehab unit and precert has been obtained. Physician notified and pt is ready for discharge today. SW met with pt and informed and pt is agreeable with dc plan. Phone call to pt's dgt Amy and updated on discharge plan. Amy is agreeable. Nurse made aware. Disposition: Inpatient Rehab Unit [facility]
== END 2024-09-27 15:47 ==
LOC: ED 23:12 → MS3 23:51 → PCU 09-26 13:19
PROVIDERS: Admitting Provider Internal Medicine; Emergency Provider Emergency Medicine; PCP Internal Medicine; Visit Provider Internal Medicine
DX: I63.511 Cerebral infarction due to unspecified occlusion or stenosis of right middle cerebral artery (principal); S32.592A Other specified fracture of left pubis, initial encounter for closed fracture; G40.909 Epilepsy, unspecified, not intractable, without status epilepticus; R79.89 Other specified abnormal findings of blood chemistry; R29.898 Other symptoms and signs involving the musculoskeletal system; I49.3 Ventricular premature depolarization; R47.1 Dysarthria and anarthria; D72.829 Elevated white blood cell count, unspecified; R53.81 Other malaise; W19.XXXA Unspecified fall, initial encounter; R26.2 Difficulty in walking, not elsewhere classified; Z87.891 Personal history of nicotine dependence; I10 Essential (primary) hypertension; N40.1 Benign prostatic hyperplasia with lower urinary tract symptoms; Z79.899 Other long term (current) drug therapy; Y92.009 Unspecified place in unspecified non-institutional (private) residence as the place of occurrence of the external cause; J45.909 Unspecified asthma, uncomplicated; R33.8 Other retention of urine; K21.9 Gastro-esophageal reflux disease without esophagitis; M19.90 Unspecified osteoarthritis, unspecified site; N13.8 Other obstructive and reflux uropathy; Z66 Do not resuscitate; I08.0 Rheumatic disorders of both mitral and aortic valves; E55.9 Vitamin D deficiency, unspecified
CPT/HCPCS: 99285; 36415; 70551; 72192; 73502; 80048; 80053; 80061; 81001; 82306; 83036; 83735; 84100; 84443; 85025; 85027; 92610; 93005; 93306; 93880; 94668; 94762; 97162; 97167; 97530; 97535; A4216

== ENCOUNTER 2024-09-27 17:26 | Inpatient (IN) | payer MEDICARE, SELFPAY ==
[2024-09-27 17:43] VITALS: BP 146/77; PULSE 75; RESP 16; TEMP 37; O2SAT 94; BMI 27.3
[2024-09-27 17:53] VITALS: O2SAT 94
[2024-09-27 18:00] VITALS: BP 146/77; PULSE 75; RESP 16; TEMP 37; O2SAT 94
[2024-09-27 18:42] VITALS: BP 110/77; BP 118/82; BP 155/97; PULSE 80; PULSE 85; PULSE 87
[2024-09-27 20:26] VITALS: BP 134/77; PULSE 91
[2024-09-27] MEDS: MELATONIN 10 MG TABLET 3 MG PO (20:26)
[2024-09-27] MEDS: Atorvastatin Calcium 40 MG Tablet PO (20:26)
[2024-09-27] MEDS: Metoprolol Tartrate 25 MG Tablet PO (20:26)
[2024-09-27] MEDS: Acetaminophen 500 MG Tablet 1000 MG PO (20:27)
[2024-09-27] MEDS: Heparin Injection (Vial) 5,000 UNIT/ML VIAL 5000 UNIT SC (20:27)
[2024-09-27] MEDS: Menthol/Lanolin/Calamine/Znox 113 GM Tube 1 APPLIC TOPICAL (20:36)
[2024-09-27] MEDS: Ensure Plus High Protein 120 ML LIQUID PO (20:37)
[2024-09-27 22:00] VITALS: O2SAT 94
[2024-09-28] VITALS (8 sets, daily range): BP systolic 109–139; BP diastolic 58–75; PULSE 83–105; RESP 16–18; TEMP 37.1–37.2; O2SAT 91–92
[2024-09-28] MEDS: Acetaminophen 500 MG Tablet 1000 MG PO ×3 (06:33→20:38)
[2024-09-28 06:50] LABS: Absolute Lymphocyte Count 1.17 X10^3/uL (0.83-4.51); Absolute Neutrophil Count 9.8 X10^3/uL (2.0-7.7); Basophil# 0.05 X10^3/uL; Basophil% 0.4 % (0-1); Eosinophil# 0.62 X10^3/uL; Eosinophils% 4.8 % (0-5); Hematocrit 38.9 % (40-54); Lymphocyte # 1.17 X10^3/ul (0.83-4.51); Mean Corp Hgb Conc 33.4 g/dL (32-36); Mean Corpuscular Hgb 29.8 pg (27.0-32.0); Mean Corpuscular Volume 89.2 fL (80-94); Mean Platelet Vol. 12.1 fl (6.2-12.0); Monocyte# 1.32 X10^3/uL; Monocyte% 10.2 % (0-10); NRBC Flagged by Analyzer 0 % (0-5); Neutrophil % 75.3 % (47-70); POSITIVE COUNT YES; Platelet Count 160 K/mm3 (150-450); RBC Distribution Width CV 14.3 % (11.6-14.6); RBC Distribution Width SD 46.4 fl (35.1-43.9); Red Blood Count 4.36 M/mm3 (4.6-6.2)
[2024-09-28 07:04] LABS: ALB/GLOB Ratio 1.1 RATIO (0.9-2.4); AST(SGOT) 20 U/L (<=37); Alanine Aminotransfer ALT/SGPT 16 U/L (<=46); Albumin, Serum 3.2 g/dL (3.4-4.8); Alkaline Phosphatase 75 U/L (40-129); Anion Gap 9 (5-15); BUN 17 mg/dL (4-19); BUN/Creat Ratio 18.5 RATIO (10-20); Calcium,Total 8.9 mg/dL (7.6-11.0); Carbon Dioxide 23.4 mmol/L (21.0-32.0); Chloride 105 mmol/L (98-108); Creatinine, Serum 0.91 mg/dL (0.70-1.20); EST Glomerular Filtration Rate 81 (>60); Estimated Creatinine Clearance 43.83 ml/min (50-250); Glucose 108 mg/dL (70-99); Magnesium 1.6 mg/dL (1.5-2.2); Phosphorus 2.1 mg/dL (2.7-4.5); Potassium 3.8 mmol/L (3.3-5.1); Protein, Total 6.1 g/dL (5.9-8.4); Sodium Level 138 mmol/L (133-145); Total Bilirubin 0.68 mg/dL (0.00-1.30)
[2024-09-28 07:32] LABS: Differential Comment SCANNED; Differential Indicated SCAN CRITERIA MET
--- NOTE | 2024-09-28 08:42 | EX.PCM.HP.RE ---
HPI - General General Date of Admission: 09/27/24 Date of Service: 09/28/24 HPI Narrative AYESHA JACOBSEN, is a 89 YO M with a PMH of hypertension, seizure disorder, vertigo, asthma, BPH with urine retention, history of colectomy, GERD, esophageal stenosis , OA and chronic debility who presented to the ED at [facility] on 09/24/24 c/o pain in the L hip after a fall. He was unable to ambulate. Plain x-ray showed no evidence of acute fracture of the left hip. CT scan of the pelvis showed an acute nondisplaced fracture of the left inferior pubic ramus and fracture of the anterior inferior left acetabular wall. There was no dislocation. He was admitted to the hospitalist service for pain management and consult with case management for disposition at [place]. PT/OT were consulted. On 09/25/24 he was noted to have focl weakness of the LLE that exceeded what would be expected with pelvic fracture. An MRI of the brain was obtained and showed small acute right MCA scattered infarcts. He was started on dual antiplatelet agents and atorvastatin 40 mg daily. LDL was checked and was 103 and his hemoglobin A1c was 5.4. The HDL was 59. Tele-neurology was consulted and recommended a transthoracic echocardiogram and carotid ultrasound. After 21 days Plavix could be discontinued. An event monitor was recommended at discharge. TTE showed normal left ventricular size with an ejection fraction of 55%. Both atria were of normal size. There was mild aortic stenosis and mild TR and MR. Carotid ultrasound showed less than 50% stenosis and both extracranial internal carotids. He was transferred to the acute inpatient rehab unit at [facility] on 09/27/2024 with a diagnosis of poststroke debility. He will have 3 hours of therapy daily to restore function/independence at or near his level prior to recent events. Nursing reports that last night he was restless, confused and painful. He has had 2 postvoid residuals and they are 128 and 184. He had 75 to 100% of his breakfast today. Blood pressure since arrival on rehab has ranged from 110/77 to 146/77. Heart rate has ranged from 75-91. Pulse ox on room air is ranged from 91 to 94%. Medication list was reviewed. Pain medication includes only Tylenol 1 g p.o. every 8 hours scheduled All lab drawn this morning was personally reviewed. The white blood cell count is elevated at 13. He has a mild left shift with 75% neutrophils. Hemoglobin is stable at 13. Platelets are within normal limits. The sodium is 138 and the potassium is 3.8. BUN is down to 17 following hydration and the creatinine is stable at 0.91. GFR is 81 and the creatinine clearance is 43.8. Phosphorus is low at 2.1 and the magnesium is borderline low at 1.6. LFTs are unremarkable. Vitamin D level done on 09/25/2024 was very low at 9.4. TSH was 0.49. [facility] Medical History (Updated 09/28/24 @ 11:[address] Amy Gaxiola, DO) Esophageal stenosis Esophageal foreign body Tobacco dependence in remission Dyslipidemia Vitamin D deficiency History of esophageal dilatation Urinary retention BPH (benign prostatic hyperplasia) Essential (primary) hypertension Seizure disorder Urinary tract infection Dehydration Acute kidney injury Acute encephalopathy Debility Home Medications ?Medication ?Instructions ?Recorded ?Last Taken ?Type omeprazole 20 mg capsule,delayed 40 mg PO DAILY GERD 01/02/16 09/27/24 History release cyanocobalamin (vitamin B-12) 500 500 mcg PO DAILY Supplement 03/05/24 09/27/24 History mcg tablet (Vitamin B-12) meclizine 25 mg tablet 25 mg PO TID PRN PRN dizziness or 03/05/24 Unknown History vertigo tamsulosin 0.4 mg capsule 0.4 mg PO DAILY Bladder 03/05/24 09/27/24 History acetaminophen 500 mg tablet 1,000 mg (2 x 500 mg) PO Q6H PRN 03/11/24 Unknown Rx Held on 09/27/24. PRN Pain Score 1-10 #0 tabs Instructions: Until restarted acetaminophen 500 mg tablet 1,000 mg (2 x 500 mg) PO Q8 pain 09/27/24 09/27/24 Rx #0 tabs aspirin 81 mg chewable tablet 81 mg PO DAILYCM Heart health #0 09/27/24 09/27/24 Rx tabs atorvastatin 40 mg tablet 40 mg PO QHS cholestrol #0 tabs 09/27/24 09/26/24 Rx clopidogrel 75 mg tablet 75 mg PO DAILY Anti platelets #0 09/27/24 09/27/24 Rx tabs ergocalciferol (vitamin D2) 1,250 1,250 mcg PO Q7D@1000 supplement 09/27/24 09/26/24 Rx mcg (50,000 unit) capsule (Vitamin #0 caps D2) food supplemt, lactose-reduced 120 ml PO 4X/DAY supplement #0 mL 09/27/24 09/27/24 Rx 0.08 gram-1.5 kcal/mL oral liquid (Ensure Plus High Protein) heparin (porcine) 5,000 unit/mL 5,000 unit subcut Q12 blood 09/27/24 09/27/24 Rx injection solution thinner #0 mL lisinopril 10 mg tablet 10 mg PO DAILY BP #0 tabs 09/27/24 09/27/24 Rx melatonin 10 mg sublingual tablet 10 mg PO QHS sleep #0 tabs 09/27/24 09/26/24 Rx metoprolol tartrate 25 mg tablet 25 mg PO BID BP #0 tabs 09/27/24 09/27/24 Rx sennosides 8.6 mg-docusate sodium 2 tab PO BID stool softner #0 tabs 09/27/24 09/27/24 Rx 50 mg tablet (Stimulant Laxative Plus) Allergy/AdvReac Type Severity Reaction Status Date / Time egg Allergy Anaphylaxis Verified 09/24/24 18:40 Family History Mother Colon cancer Father Cancer Surgical History History of colectomy History of left inguinal hernia repair History of esophagogastroduodenoscopy (EGD) Social History (Updated 09/28/24 @ 11:[address] Amy Gaxiola DO) household members: spouse and other details: 's name is Dexter housing: house number of children: 6 Smoking Status: Former smoker how long ago did patient quit smokin years ago alcohol intake: never substance use type: does not use ROS ROS Narrative ROS is difficult. He has a hard time hearing and is not always answering the question I asked him. Answers sometimes tangential. Constitutional Constitutional: Reports difficulty sleeping, fatigue, malaise, weakness and other Details: tells me that he does not eat as much as he used to. Has lost a little weight. ; Denies anorexia, change in weight, chills, fever(s) or night sweats Eyes Eyes: Denies blurry vision, change in vision, eye pain or loss of vision ENT HEENT: Reports abnormal hearing, headache(s) and hearing loss; Denies dysphagia, nasal congestion or sore throat Cardiovascular Cardiovascular: Reports chest pain; Denies dyspnea on exertion, edema, lightheadedness, orthopnea, palpitations, paroxysmal nocturnal dyspnea or syncope Respiratory/Chest Respiratory/Chest: Reports chest congestion, cough, excessive phlegm production, productive cough and wheezing; Denies dyspnea, hemoptysis, shortness of breath at rest, shortness of breath with exertion or tachypnea Gastrointestinal Gastrointestinal: Denies abdominal pain, constipation, diarrhea, dyspepsia, hematemesis, hematochezia, nausea or vomiting Genitourinary Genitourinary: Denies dysuria, hematuria, nocturia, urinary frequency, urinary hesitancy, urinary incontinence or urinary urgency Musculoskeletal Musculoskeletal: Reports difficulty walking and other Details: pelvic pain ; Denies back pain, joint pain, joint swelling or neck pain Integumentary Integumentary: Reports dry skin; Denies jaundice, pruritus, rash or sores Neurologic Neurologic: Reports confusion, focal weakness, headache(s), weakness and other Details: Tells me that he has been having problems with memory that predate the recent stroke. ; Denies disequilibrium, dizziness, paresthesias, radicular pain, restless legs, seizures, tremor(s) or vertigo Psychiatric Psychiatric: Reports cognitive impairment, depression and memory loss; Denies anxiety, homicidal ideation, suicidal ideation or visual hallucinations Endocrine Endocrinology: Denies change in body appearance, polydipsia or polyuria Hematologic/Lymphatic Hematologic/Lymphatic: Denies easy bleeding, easy bruising or lymphadenopathy Allergic/Immunologic Allergic/Immunologic: Reports wheezing and asthma; Denies itchy eyes, rhinitis, tongue swelling, hives, urticaria or eczemia Vital Signs Vital Signs Vital Signs: 09/27/24 17:43 09/27/24 17:53 09/27/24 18:00 Temperature 98.6 F 98.6 F Temperature Source Temporal Temporal Pulse Rate 75 75 Pulse Rate [Lying] Pulse Rate [Sitting (for 1 minute prior to obtaining)] Pulse Rate [Standing (for 1 minute prior to obtaining)] Respiratory Rate 16 16 Respiratory Effort Normal Non-Labored Respiratory Depth Normal Respiratory Pattern Normal Blood Pressure 146/77 H 146/77 H Blood Pressure [Lying] Blood Pressure [Sitting (for 1 minute prior to obtaining)] Blood Pressure [Standing (for 1 minute prior to obtaining)] Blood Pressure Mean 100 100 Blood Pressure Mean [Lying] Blood Pressure Mean [Sitting (for 1 minute prior to obtaining)] Blood Pressure Mean [Standing (for 1 minute prior to obtaining)] Blood Pressure Source Monitor Monitor Blood Pressure Position Semi-Fowlers Semi-Fowlers Blood Pressure Location Right Arm Right Arm Pulse Ox 94 94 94 Oxygen Delivery Method Room Air Room Air Room Air 09/27/24 18:42 09/27/24 20:26 09/27/24 22:00 Temperature Temperature Source Pulse Rate 91 Pulse Rate [Lying] 85 Pulse Rate [Sitting (for 1 minute prior to obtaining)] 80 Pulse Rate [Standing (for 1 minute prior to obtaining)] 87 Respiratory Rate Respiratory Effort Normal Labored Respiratory Depth Normal Respiratory Pattern Normal Blood Pressure 134/77 H Blood Pressure [Lying] 110/77 Blood Pressure [Sitting (for 1 minute prior to obtaining)] 118/82 H Blood Pressure [Standing (for 1 minute prior to obtaining)] 155/97 H Blood Pressure Mean Blood Pressure Mean [Lying] 88 Blood Pressure Mean [Sitting (for 1 minute prior to obtaining)] 94 Blood Pressure Mean [Standing (for 1 minute prior to obtaining)] 116 Blood Pressure Source Blood Pressure Position Blood Pressure Location Pulse Ox 94 Oxygen Delivery Method Room Air 09/28/24 01:33 09/28/24 06:00 09/28/24 07:20 Temperature 98.8 F Temperature Source Temporal Pulse Rate 86 Pulse Rate [Lying] Pulse Rate [Sitting (for 1 minute prior to obtaining)] Pulse Rate [Standing (for 1 minute prior to obtaining)] Respiratory Rate 17 18 Respiratory Effort Respiratory Depth Respiratory Pattern Blood Pressure 139/73 H Blood Pressure [Lying] Blood Pressure [Sitting (for 1 minute prior to obtaining)] Blood Pressure [Standing (for 1 minute prior to obtaining)] Blood Pressure Mean 95 Blood Pressure Mean [Lying] Blood Pressure Mean [Sitting (for 1 minute prior to obtaining)] Blood Pressure Mean [Standing (for 1 minute prior to obtaining)] Blood Pressure Source Monitor Blood Pressure Position Semi-Fowlers Blood Pressure Location Right Arm Pulse Ox 91 91 Oxygen Delivery Method Room Air Room Air Room Air Weight Weight: 139 lb 1 oz Body Mass Index (BMI) 27.3 Indicators for Scoring Admitted with or Primary Diagnosis of CVA/Stroke: Yes Hx of CVA/Stroke: No Modified [place] Score MRS Score at time of Evaluation: 4-Moderate/severe disability NIHSS NIHSS 1a. Level of Consciousness: 0 - Alert; keenly responsive 1b. LOC Questions: 0 - Answers BOTH questions correctly 1c. LOC Commands: 0 - Performs BOTH tasks correctly 2. Best Gaze: 0 - Normal (No nystagmus) 3. Visual: 0 - No visual loss 4. Facial Palsy: 2 - Partial paralysis (total or near-total paralysis of lower face) 5a. Left Arm: 0 - No drift; arm holds 90 (or 45) degrees for full 10 seconds 5b. Right Arm: 0 - No drift; arm holds 90 (or 45) degrees for full 10 seconds 6a. Left Le - Some effort against gravity; 6b. Right Le - No drift; leg holds 30-degree position for full 5 seconds 7. Limb Ataxia: 0 - Absent 8. Sensory: 1 - Xqcf-rq-avupzomi sensory loss; 9. Best Language: 0 - No aphasia; normal 10. Dysarthria: 1 = Nohe-bo-llphhcwa dysarthria; 11. Extinction and Inattention: 0 - No abnormality Total: 6 Stroke Questions Stroke Team Activated: No Physical Exam Const alert, oriented x3 and no apparent distress Constitutional Narrative: sitting in the recliner at the bedside General Appearance: cooperative and well kempt HEENT head/scalp atraumatic HEENT Narrative: CRAIG. Mucous membranes are dry. No evidence of thrush. Tongue protrudes on the midline. Eyes PERRL, EOMs intact bilaterally and no scleral icterus Eyes Narrative: No discharge from the eyes. The conjunctiva is mildly injected BL. He denies pain and DC from the eyes. Neck No nodes and no carotid bruits General: trachea midline Chest Chest: symmetrical chest wall rise Resp Resp Narrative: Decreased BS's throughout. Scattered rhonchi. Productive cough. Few coarse crackles in the bases. Effort and Inspection: able to speak in complete sentences Cardio regular rate, regular rhythm, S1 normal heart sound, S2 normal heart sound, no rub and no gallops Cardio Narrative: No ectopy. Resting HR is a little high. Systolic MM at the LLSB, apex and L axilla. PMI is deviated medial and inferiorly. GI normal to inspection, nondistended, normoactive bowel sounds, soft to palpation and non-tender GI Narrative: No guarding with palpation no CVA tenderness Extremity no calf tenderness and no pedal edema Skin no jaundice Skin Narrative: Dry skin Rashes: no rashes Hair: male pattern alopecia Neuro Neuro Narrative: Right facial droop, tongue protrudes on the midline, mild dysarthria. No visual field cuts, pupils are equal round and reactive to light and accommodation, extraocular muscles are intact. Decreased hearing. 5/5 strength in both upper extremities. He is right-hand dominant. The left leg fell to the bed prior to 5 seconds. No ataxia in the upper extremities. Could not adequately check for ataxia in the left lower extremity due to weakness of the left lower extremity. Decreased sensation in the left arm and left leg. No extinction. No aphasia. I did not ambulate him. Psych cooperative, denies hallucinations and denies suicidal ideation Psych Narrative: Got tearful talking about his family. told me that he had a son who of CVA/OR. Feels he is declining. Having trouble with his memory. Trouble sleeping at night. Appetite has been somewhat decreased. Appearance: grossly normal, appropriate and well kempt Attitude: calm and engaged Activity / Motor Behavior: appropriate eye contact; Negative for psychomotor agitation, psychomotor slowing or fidgetting Speech: normal speech Results Lab / Micro Data 09/28/24 06:24 09/28/24 06:24 Labs: Laboratory Results - last 24 hr 09/28/24 06:24: WBC 13.0 H, RBC 4.36 L, Hgb 13.0, Hct 38.9 L, MCV 89.2, MCH 29.8, MCHC 33.4, RDW Std Deviation 46.4 H, RDW Coeff of [place] 14.3, Plt Count 160, MPV 12.1 H, Immature Gran % (Auto) 0.300, Neut % (Auto) 75.3 H, Lymph % (Auto) 9.0 L, [place] % (Auto) 10.2 H, Eos % (Auto) 4.8, Baso % (Auto) 0.4, Absolute Neuts (auto) 9.8 H, Absolute Lymphs (auto) 1.17, Nucleated RBC % 0, Differential Comment SCANNED, Sodium 138, Potassium 3.8, Chloride 105, Carbon Dioxide 23.4, Anion Gap 9, BUN 17, Creatinine 0.91, Estim Creat Clear Calc 43.83 L, Est GFR (MDRD) Non-Af 81, BUN/Creatinine Ratio 18.5, Glucose 108 H, Calcium 8.9, Phosphorus 2.1 L, Magnesium 1.6, Total Bilirubin 0.68, AST 20, ALT 16, Alkaline Phosphatase 75, Total Protein 6.1, Albumin 3.2 L, Globulin 3.0, Albumin/Globulin Ratio 1.1 Assessment & Plan Assessment/Plan (1) Debility: (2) Acute ischemic right MCA stroke: (3) Left leg weakness: (4) Facial droop: (5) Cognitive dysfunction: PLAN: Scored 23/30 on the MOCA (6) Paresthesias: PLAN: Left arm and leg (7) Fall: QUALIFIERS: Encounter type: initial encounter Qualified Code(s): W19.XXXA - Unspecified fall, initial encounter (8) Inferior pubic ramus fracture: QUALIFIERS: Encounter type: initial encounter Fracture type: closed Laterality: left Qualified Code(s): S32.592A - Other specified fracture of left pubis, initial encounter for closed fracture (9) Contusion of left hip: QUALIFIERS: Encounter type: initial encounter Qualified Code(s): S70.02XA - Contusion of left hip, initial encounter (10) Pain aggravated by physical activity: (11) Presbycusis: QUALIFIERS: Laterality: bilateral Qualified Code(s): 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, bilateral (12) Depression: QUALIFIERS: Depression Type: unspecified Qualified Code(s): F32.A - Depression, unspecified PLAN: Suspected (13) Leukocytosis: QUALIFIERS: Leukocytosis type: unspecified Qualified Code(s): D72.829 - Elevated white blood cell count, unspecified (14) Hypophosphatemia: (15) Productive cough: (16) GERD (gastroesophageal reflux disease): QUALIFIERS: Esophagitis presence: without esophagitis Qualified Code(s): K21.9 - Gastro-esophageal reflux disease without esophagitis (17) Esophageal stenosis: (18) History of esophageal dilatation: (19) Dyslipidemia: (20) BPH (benign prostatic hyperplasia): QUALIFIERS: Lower urinary tract symptom presence: unspecified whether lower urinary tract symptoms present Qualified Code(s): N40.0 - Benign prostatic hyperplasia without lower urinary tract symptoms (21) Essential (primary) hypertension: (22) Seizure disorder: PLAN: I spoke with his dtr and she tells me that he has had EEG's and neurology work up and he does not have a seizure disorder. He is not on any antiepileptics. PLAN: Plan PLAN PT for gait stability-weightbearing as tolerated OT for ADL's ST for evaluation-for cognition and swallowing Analgesics as needed Bowel protocol Fall precautions Assess for Anxiety/Depression GI prophylaxis -pantoprazole DVT prophylaxis with Lovenox Follow up with PCP, neurology following DC from IP Rehab AM lab including CMP, CBC, Mag and Phos Chest x-ray ordered for productive cough. Event monitor at discharge from rehab Overnight trending pulse ox Check a B12 level Recommend a DEXA as an outpatient. He has severe vitamin D deficiency and has been started on a supplement but suspect the likely has osteoporosis. At some point would like to discuss Aricept or Namenda with family. At home he has been taking Tylenol PM at bedtime to help him sleep.....this may be contributing to falls. Now he is on Melatonin 10 mg which is way above the recommended dose for his age group. Will DC Melatonin and start Remeron 7.5 mg at HS for depression, decreased appetite and insomnia. Schedule Tramadol 25 mg at 06 100, noon and 6 PM. Continue Tylenol 1 g p.o. every 8 hours. Charges/Coding Visit Charges Inpatient E&M: 26145 Init Hosp L2
[2024-09-28] MEDS: Aspirin 81 MG TAB.CHEW PO (09:48)
[2024-09-28] MEDS: Lisinopril 10 MG Tablet PO (09:50)
[2024-09-28] MEDS: Cyanocobalamin 500 MCG Tablet PO (09:50)
[2024-09-28] MEDS: Metoprolol Tartrate 25 MG Tablet PO ×2 (09:51→20:28)
[2024-09-28] MEDS: Menthol/Lanolin/Calamine/Znox 113 GM Tube 1 APPLIC TOPICAL ×2 (09:52→20:28)
[2024-09-28] MEDS: Tamsulosin HCl 0.4 MG Capsule PO (09:52)
[2024-09-28] MEDS: Clopidogrel Bisulfate 75 MG Tablet PO (09:53)
[2024-09-28] MEDS: Pantoprazole Sodium 40 MG Tablet PO (09:54)
[2024-09-28] MEDS: Heparin Injection (Vial) 5,000 UNIT/ML VIAL 5000 UNIT SC ×2 (09:54→20:24)
[2024-09-28] MEDS: Senna/Docusate Sodium 1 Tablet 2 TABLET PO ×2 (09:54→20:24)
[2024-09-28] MEDS: traMADol 50 MG Tablet 25 MG PO ×3 (09:58→17:07)
[2024-09-28] MEDS: Ensure Plus High Protein 120 ML LIQUID PO ×4 (10:00→20:31)
--- NOTE | 2024-09-28 10:56 | RAD_ITS ---
PROCEDURE: CHEST PA AND LATERAL 09/28/2024 REASON FOR EXAM: COUGH TECHNIQUE: Frontal and lateral views of the chest. FINDINGS: No focal consolidations. Mild pulmonary vascular congestion. Bibasilar subsegmental atelectasis. No pleural effusion or pneumothorax. Atherosclerotic aortic arch. Cardiac silhouette is within normal limits. Rqej-[id number] hiatal hernia. No acute fractures. RAD/Chest PA and Lateral IMPRESSION: Mild pulmonary vascular congestion. No focal consolidation. Bibasilar subsegm ental atelectasis. [id number] hiatal hernia. Reading Location: [id number]
[2024-09-28 11:35] LABS: Vitamin B12 1555 pg/mL (180-914)
--- NOTE | 2024-09-28 11:51 | PCM.RU.PYE ---
Admission Information Primary Diagnosis:: Post stroke debility/pelvic fracture Status Changes from Prescreening?: No changes Identified Actual Problem List:: Falls, Skin Intergrity, Pain, ALteration in Cmfrt, Cognitve Impr/Memory Loss, Depression, Alteration in Sleep, Alteration in Nutrition, Mobility Impaired, Self Care Deficit, Alteration/ Air Exchange, Fluid Change-Dehydration and Alteration-Leisure Activ. Potential Problem List:: DVT, Bleeding, Infection, UTI, Aspiration, Falls, Skin Integrity and Depression Risk of Complications DVT: DARYL Hose and - (Heparin 5000 units SQ every 12 hours) Bleeding: Monitor Lab Values, Nursing to Teach Precautions for anti-coagulation therapy., Wound, if applicable, to be assessed every shift. and Stroke patients assessed for lethargy or change in status. Infection: Clinical Staff to Monitor for S/S of infection: and S/S of infection include fever, redness, warmth, etc. Urinary Tract Infection: Monitor for frequency, burning, discomfort, or incontinence. and Nursing will obtain urine sample for urinalysis and C&S when ordered. Aspiration: Clinical staff will monitor for coughing, drooling, congestion., Speech will evaluate swallowing and dsyphasia. and Nursing will monitor patient swallowing during meals. Falls: Patient will be evaluated for Fall Precautions and Patient will be placed on Fall Precautions as indicated per protocol. Skin Breakdown: Nursing will assess skin daily using assessment tool. and Nursing will place on Skin Breakdown Precautions as indicated. Pain: Clinical staff will assess patient's pain level per protocol., Medications will be given, if needed, and the pain level reassessed. and Other methods: Massage, distraction, decrease stimulus, etc. used PRN. Plan of Care Patient requires physician specializing in physical medicine and rehab oversight to provide close medical supervision of rehab issues including: Pain Management, Sleep Problems, Bowel and Bladder, Medical and co-morbidity Management, DVT prophylaxis, Rehabilitation Leadership and Coordination of treatment team Patient needs Physical Therapy: For a minimum of 1 hour and At least 5 out of 7 days Patient needs Physical Therapy to improve:: Mobility, Strengthening, Transfers, Stretching, ROM, Endurance, Stairs, Gait and Balance Patient needs Occupational Therapy: For a minimum of 1 hour and At least 5 out of 7 days Patient needs Occupational Therapy to improve ADL's incl.: Eating, Grooming, Bathing, Dressing, Toileting, Toilet transfers, Community Reintegration, Higher functioning activities, Household tasks, Adaptive Equipment, Splinting and Other activities as determined Patient requires speech therapy: For a minimum of 1 hour and At least 5 out of 7 days Patient requires speech therapy for: Swallowing, Cognition, Language Skills and Compensatory Strategies Patient requires 24/7 Rehabilitation Nursing for: Pain Issues, Identifying and preventing risk factors, Monitoring and reporting current medical conditions, Assisting with ambulation, transfer, and all ADL's, Teaching patients about disease process and medications, Family teaching, Providing safe environment, Bowel and Bladder Issues, Skin integrity and Medication Management Patient needs Stabilizing Machine Operator/ Case Management for: Discharge Planning, Arranging Home Equipment or Services and Family Interventions Patient needs Dietary and Nutrition Services for: Adequate Nutrition, Nutritional Supplements and Nutritional Education Goals Goals Patient will remain: free from falls Patient will perform eating at: MOD I level of assist. Patient will perform bed mobility at: MOD I level of assist. Patient will complete transfers from bed to chair at: MOD I level of assist. Patient will ambulate: - (150 feet with a front wheeled walker) Patient will complete upper body dressing at: MOD I level of assist. Patient will complete lower body dressing at: MOD I level of assist. (With adaptive equipment as necessary.) Patient will complete toilet transfer at: MOD I level of assist. Patient will complete toileting at: MOD I level of assist. Patient will perform bathing at: MOD I level of assist. (Using adaptive equipment as needed for lower body bathing) Patient will perform Tub/Shower transfer at: - (Min assist) Patient will complete grooming at: MOD I level of assist. Patient will achieve: - (4 steps with 1 HR) Patient will have pain level of: of 3 or less Patient's skin will: remain intact Patient will receive: adequate nutrition. Discharge Planning Pt Prognosis for Sig. Practical Improv. w/in Reasonable Time: Good Estimated Length of stay (days): 21 Anticipated D/C Destination: Home with Home Health Was Preadmission Assessment Accurate?: Yes
[2024-09-28] MEDS: Mirtazapine 15 MG Tablet 7.5 MG PO (20:23)
[2024-09-28] MEDS: Doxycycline 100 MG CAPSULE PO (20:24)
[2024-09-28] MEDS: Atorvastatin Calcium 40 MG Tablet PO (20:24)
[2024-09-28 23:55] LABS: Mucous, Urine 0 SEEN /hpf (<or=2+); Red Blood Cells-Urine 0 SEEN /hpf (0-5); White Blood Cells 0 SEEN /hpf (0-5)
[2024-09-28 23:58] LABS: Color, Urine Yellow (Yellow); Glucose, Dipstick Normal (Normal); Ketone-Dipstick Negative (Negative); Leukocyte Esterase-Dipstick Negative /ul (Negative); Nitrite-Dipstick Negative (Negative); Occult Blood-Urine Negative /ul (Negative); Protein-Dipstick 15 mg/dl (Negative); Urine Bilirubin Dipstick Negative (Negative); Urine Clarity Clear (Clear); Urine Urobilinogen Normal (Normal)
[2024-09-29] VITALS (7 sets, daily range): BP systolic 127–156; BP diastolic 71–84; PULSE 80–91; RESP 16–18; TEMP 36.6–36.7; O2SAT 90–95
[2024-09-29 00:05] LABS: Squamous Epithelial Cells - UA 0-5 SEEN /hpf (0-5)
[2024-09-29 00:06] LABS: Bacteria 1+ /hpf (None Seen)
--- NOTE | 2024-09-29 00:18 | NURSING ---
PT SETTING OFF ALARMS AND ATTEMPTING TO GET OOB. PT HAD JUST BEEN STR/CATHED WITHIN THE HOUR BUT USED URINAL AGAIN AND THEN WET IN ATTENDS SOON PT WAS REPOSITIONED IN BED. PT HAS TRENDING PULSE OX BUT WANTS IT REMOVED. STAFF REMINDED PT THAT THE DR ORDERED THE TESTING FOR HIS BENEFIT. PT WAS AGREEABLE TO WEARING IT BUT NEEDS REMINDED THAT THE TRENDING PULSE OX MUST BE WORN ALL NIGHT. PT IS VERY RESTLESS.
[2024-09-29] MEDS: Acetaminophen 500 MG Tablet 1000 MG PO ×3 (05:53→20:56)
[2024-09-29] MEDS: traMADol 50 MG Tablet 25 MG PO ×3 (05:53→17:58)
[2024-09-29] MEDS: Doxycycline 100 MG CAPSULE PO ×2 (08:47→20:54)
[2024-09-29] MEDS: Lisinopril 10 MG Tablet PO (08:47)
[2024-09-29] MEDS: Metoprolol Tartrate 25 MG Tablet PO ×2 (08:47→20:55)
[2024-09-29] MEDS: Aspirin 81 MG TAB.CHEW PO (08:47)
[2024-09-29] MEDS: Cyanocobalamin 500 MCG Tablet PO (08:48)
[2024-09-29] MEDS: Clopidogrel Bisulfate 75 MG Tablet PO (08:48)
[2024-09-29] MEDS: Senna/Docusate Sodium 1 Tablet 2 TABLET PO ×2 (08:48→20:55)
[2024-09-29] MEDS: Tamsulosin HCl 0.4 MG Capsule PO (08:48)
[2024-09-29] MEDS: Pantoprazole Sodium 40 MG Tablet PO (08:48)
[2024-09-29] MEDS: Heparin Injection (Vial) 5,000 UNIT/ML VIAL 5000 UNIT SC ×2 (08:49→20:55)
[2024-09-29] MEDS: Ensure Plus High Protein 120 ML LIQUID PO ×4 (08:49→20:54)
[2024-09-29] MEDS: Menthol/Lanolin/Calamine/Znox 113 GM Tube 1 APPLIC TOPICAL ×2 (16:25→20:54)
[2024-09-29] MEDS: QUEtiapine 25 MG Tablet PO (20:54)
[2024-09-29] MEDS: Atorvastatin Calcium 40 MG Tablet PO (20:55)
[2024-09-30] VITALS (8 sets, daily range): BP systolic 104–151; BP diastolic 65–73; PULSE 83–101; RESP 15–16; TEMP 37.2; O2SAT 91–95; BMI 27.3
[2024-09-30] MEDS: Acetaminophen 500 MG Tablet 1000 MG PO ×3 (06:29→21:14)
[2024-09-30] MEDS: traMADol 50 MG Tablet 25 MG PO ×2 (06:30→11:56)
[2024-09-30] MEDS: Doxycycline 100 MG CAPSULE PO ×2 (08:11→21:11)
[2024-09-30] MEDS: Ensure Plus High Protein 120 ML LIQUID PO ×4 (08:12→19:47)
[2024-09-30] MEDS: Menthol/Lanolin/Calamine/Znox 113 GM Tube 1 APPLIC TOPICAL ×2 (08:12→21:11)
[2024-09-30] MEDS: Clopidogrel Bisulfate 75 MG Tablet PO (08:12)
[2024-09-30] MEDS: Aspirin 81 MG TAB.CHEW PO (08:12)
[2024-09-30] MEDS: Senna/Docusate Sodium 1 Tablet 2 TABLET PO ×2 (08:13→21:14)
[2024-09-30] MEDS: Tamsulosin HCl 0.4 MG Capsule PO (08:13)
[2024-09-30] MEDS: Pantoprazole Sodium 40 MG Tablet PO (08:13)
[2024-09-30] MEDS: Lisinopril 10 MG Tablet PO (08:14)
[2024-09-30] MEDS: Cyanocobalamin 500 MCG Tablet PO (08:14)
[2024-09-30] MEDS: Metoprolol Tartrate 25 MG Tablet PO ×2 (08:14→21:15)
[2024-09-30] MEDS: Heparin Injection (Vial) 5,000 UNIT/ML VIAL 5000 UNIT SC ×2 (08:15→21:10)
--- NOTE | 2024-09-30 15:21 | PN_ITS ---
Subjective Subjective Day #3 doxycycline Afebrile VSS -blood pressure over the past 24 hours has ranged from 127/71 to 156/84. Heart rate is within normal limits. Maintaining appropriate oxygen saturation on RA -pulse ox during the day while awake ranges from 90-94. Oral intake - FOOD varies from poor to good FLUIDS improving, he had 1300 cc cc p.o. yesterday and so far today has had 920. Discussed with nursing -started on Seroquel for owning/agitation at night. Still did not sleep well last night. Reviewed the THERAPY notes Medication list reviewed. Overnight trending pulse ox shows the pulse ox to be 89% or less 11% of the time he was monitored. Multiple desaturations greater than 60 seconds. Tells me that the pain us better. He is able to do therapy. Movement improves pain/stiffness. Needing a lot of cuing with therapy. Impulsive. Poor safety awareness. Stool is heme positive. Gram stain of the discharge from the left eye is growing Staph aureus..... Sensitivities are pending. Objective Data Objective Data Vital Signs: Vital Signs Temp Pulse Resp BP Pulse Ox O2 Del Method O2 Flow Rate 98.9 F 89 16 151/73 H 91 Room Air 2 09/30/24 06:00 09/30/24 08:14 09/30/24 06:00 09/30/24 06:00 09/30/24 06:00 09/30/24 09:44 09/30/24 09:17 FiO2 21 09/28/24 21:15 Oxygen Flow Rate (L/min) 2 Oxygen Delivery Method Room Air Weight: 139 lb 1 oz Body Mass Index (BMI) 27.3 Intake & Output: Intake and Output for Last 24 Hours 09/28/24 09/29/24 09/30/24 23:59 23:59 23:59 Intake Total 770 / 770 1300 / 1300 920 / 920 Output Total 1035 / 1035 80 / 80 Balance -265 / -265 1220 / 1220 920 / 920 Lab / Micro Data 09/28/24 06:24 09/28/24 06:24 Micro: Microbiology 09/29/24 09:12 Exudate Wound Culture - Preliminary Staphylococcus aureus 09/30/24 04:43 Stool Stool Occult Blood (JOVANI) - Final Occult Blood Positive Physical Exam Const alert and no apparent distress Constitutional Narrative: sitting in the recliner at the bedside General Appearance: cooperative HEENT head/scalp atraumatic Eyes PERRL, EOMs intact bilaterally and no scleral icterus Eyes Narrative: No discharge from the eyes. The conjunctiva is mildly injected BL. He denies pain and DC from the eyes. Neck No nodes and no carotid bruits General: trachea midline Chest Chest: symmetrical chest wall rise Resp Resp Narrative: Decreased BS's throughout. cough has improved. Rare coarse wheezing. Effort and Inspection: able to speak in complete sentences Cardio regular rate, regular rhythm and no gallops Cardio Narrative: No ectopy. Resting HR is a little high. Systolic MM at the LLSB, apex and L axilla. PMI is deviated medial and inferiorly. GI normal to inspection, nondistended, normoactive bowel sounds, soft to palpation and non-tender GI Narrative: No guarding with palpation no CVA tenderness Extremity no calf tenderness and no pedal edema Skin no jaundice Skin Narrative: Dry skin Rashes: no rashes Hair: male pattern alopecia Neuro Neuro Narrative: Right facial droop, tongue protrudes on the midline, mild dysarthria. No visual field cuts, pupils are equal round and reactive to light and accommodation, extraocular muscles are intact. Decreased hearing. 5/5 strength in both upper extremities. He is right-hand dominant. The left leg fell to the bed prior to 5 seconds. No ataxia in the upper extremities. Could not adequately check for ataxia in the left lower extremity due to weakness of the left lower extremity. Decreased sensation in the left arm and left leg. No extinction. No aphasia. I did not ambulate him. Psych cooperative, denies hallucinations and denies suicidal ideation Psych Narrative: Got tearful talking about his family. told me that he had a son who of CVA/NE. Feels he is declining. Having trouble with his memory. Trouble sleeping at night. Appetite has been somewhat decreased. Appearance: grossly normal, appropriate and well kempt Attitude: calm and engaged Activity / Motor Behavior: appropriate eye contact; Negative for psychomotor agitation, psychomotor slowing or fidgetting Speech: normal speech Assessment & Plan Assessment/Plan (1) Debility: (2) Acute ischemic right MCA stroke: (3) Left leg weakness: (4) Facial droop: (5) Cognitive dysfunction: PLAN: Scored 23/30 on the MOCA (6) Paresthesias: PLAN: Left arm and leg (7) Fall: QUALIFIERS: Encounter type: initial encounter Qualified Code(s): W19.XXXA - Unspecified fall, initial encounter (8) Inferior pubic ramus fracture: QUALIFIERS: Encounter type: initial encounter Fracture type: c losed Laterality: left Qualified Code(s): S32.592A - Other specified fracture of left pubis, initial encounter for closed fracture (9) Contusion of left hip: QUALIFIERS: Encounter type: initial encounter Qualified Code(s): S70.02XA - Contusion of left hip, initial encounter (10) Pain aggravated by physical activity: (11) Presbycusis: QUALIFIERS: Laterality: bilateral Qualified Code(s): 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, bilateral (12) Depression: QUALIFIERS: Depression Type: unspecified Qualified Code(s): F32.A - Depression, unspecified PLAN: Suspected (13) Leukocytosis: QUALIFIERS: Leukocytosis type: unspecified Qualified Code(s): D 72.829 - Elevated white blood cell count, unspecified (14) Hypophosphatemia: (15) Productive cough: (16) GERD (gastroesophageal reflux disease): QUALIFIERS: Esophagitis presence: without esophagitis Qualified Code(s): K21.9 - Gastro-esophageal reflux disease without esophagitis (17) Esophageal stenosis: (18) History of esophageal dilatation: (19) Dyslipidemia: (20) BPH (benign prostatic hyperplasia): QUALIFIERS: Lower urinary tract symptom presence: unspecified whether lower urinary tract symptoms present Qualified Code(s): N40.0 - Benign prostatic hyperplasia without lower urinary tract symptoms (21) Essential (primary) hypertension: (22) Hypoxemia associated with sleep: PLAN: Plan 1. Continue therapy 2. Increase Remeron to 15 mg p.o. nightly 3. Change tramadol to 25 mg at 0600 and 1400 and 50 mg at 10 PM. 4. Continue doxycycline for total of 7 days 5. Protonix 40 mg daily 6. Check 3 more postvoid residuals 7. Goal for blood pressure in this 89-year-old is less than 140/80. In the next 1 to 2 days adjust antihypertensive regimen as needed to get the systolic less than 140. 8. Discontinue Plavix after 21 doses 9. Apply oxygen at 2 L anytime he is sleeping Charges/Coding Visit Charges Inpatient E&M: 21427 Subs Hosp L1
[2024-09-30] MEDS: QUEtiapine 25 MG Tablet PO (19:47)
[2024-09-30] MEDS: Ipratropium/Albuterol Sulfate 3 ML AMPUL.NEB INHALATION (19:48)
[2024-09-30] MEDS: Atorvastatin Calcium 40 MG Tablet PO (21:11)
[2024-09-30] MEDS: traMADol 50 MG Tablet PO (21:14)
[2024-10-01] VITALS (7 sets, daily range): BP systolic 119–165; BP diastolic 57–89; PULSE 76–116; RESP 16–17; TEMP 36.3–37.1; O2SAT 92–96; BMI 27.3
--- NOTE | 2024-10-01 04:14 | NURSING ---
O2 while pt is sleeping at 93% this hs. Pt may remove O2 when restless. Staff should check frequently for compliance.
[2024-10-01] MEDS: Acetaminophen 500 MG Tablet 1000 MG PO ×3 (06:12→21:07)
[2024-10-01] MEDS: traMADol 50 MG Tablet 25 MG PO ×2 (06:12→14:15)
[2024-10-01] MEDS: Lisinopril 10 MG Tablet PO (08:14)
[2024-10-01] MEDS: Tamsulosin HCl 0.4 MG Capsule PO (08:14)
[2024-10-01] MEDS: Cyanocobalamin 500 MCG Tablet PO (08:14)
[2024-10-01] MEDS: Clopidogrel Bisulfate 75 MG Tablet PO (08:15)
[2024-10-01] MEDS: Aspirin 81 MG TAB.CHEW PO (08:15)
[2024-10-01] MEDS: Pantoprazole Sodium 40 MG Tablet PO (08:15)
[2024-10-01] MEDS: Doxycycline 100 MG CAPSULE PO ×2 (08:15→21:07)
[2024-10-01] MEDS: Menthol/Lanolin/Calamine/Znox 113 GM Tube 1 APPLIC TOPICAL ×2 (08:15→21:15)
[2024-10-01] MEDS: Heparin Injection (Vial) 5,000 UNIT/ML VIAL 5000 UNIT SC ×2 (08:15→21:08)
[2024-10-01] MEDS: Senna/Docusate Sodium 1 Tablet 2 TABLET PO ×2 (08:15→21:08)
[2024-10-01] MEDS: Ensure Plus High Protein 120 ML LIQUID PO ×3 (08:18→16:51)
[2024-10-01] MEDS: Metoprolol Tartrate 25 MG Tablet PO ×2 (10:03→21:07)
--- NOTE | 2024-10-01 10:59 | EKG12_ITS ---
Test Reason : CHEST PAIN Blood Pressure : */* mmHG Vent. Rate : 79 BPM Atrial Rate : 79 BPM P-R Int : 190 ms QRS Dur : 104 ms QT Int : 414 ms P-R-T Axes : 63 -23 60 degrees QTcB Int : 474 ms Normal sinus rhythm Cannot rule out Inferior infarct , age undetermined Abnormal ECG When compared with ECG of 24-Sep-2024 19:44, Premature ventricular complexes are no longer Present POOR TRACING Confirmed by Juan C Guthrie ([id number]), editor index CARON DYER ([id number]) on 10/07/2024 1:19:10 PM Referred By: Amy Gaxiola Confirmed By: Juan C Guthrie
--- NOTE | 2024-10-01 12:10 | PN_ITS ---
Subjective Subjective Michael was seen on team rounds today. His daughter Amy was present in the room. All questions were answered to their satisfaction. Afebrile VSS -he heart rate has ranged from 83-116 over the past 24 hours. Blood pressure is adequately controlled. Maintaining appropriate oxygen saturation on RA Oral intake - FOOD highly variable. Ate 75 to 100% of his last few meals. FLUIDS this has improved. He had 1910 cc in yesterday. Discussed with nursing -has been incontinent of urine. Still very restless and impulsive at night. Reviewed the THERAPY notes Medication list reviewed. The overnight trending pulse ox is abnormal. 11% of the time he was monitored the pulse ox was 89%. He had multiple desaturations greater than 60 seconds. We have been applying oxygen at night since the results of the overnight trending pulse ox became available. He is sleepy during the day. Cognition is worse than at home. Has never seen a neurologist for W/U for dementia. Amy tells me that he has seen Dr. Abbasi in the past and had esophageal dilation but, he has not had a procedure in several years. they have noticed he has a chronic cough recently. Stool is heme positive. Culture of the discharge from the left eye grew Staphylococcus aureus. It is not methicillin resistance but there is inducible clindamycin resistance. He has been on doxycycline. This was started for acute bronchitis. . Objective Data Objective Data Vital Signs: Vital Signs Temp Pulse Resp BP Pulse Ox O2 Del Method O2 Flow Rate 97.4 F L 116 H 16 124/64 H 93 Nasal Cannula 2 10/01/24 06:00 10/01/24 10:03 10/01/24 06:00 10/01/24 10:03 10/01/24 06:00 10/01/24 06:00 10/01/24 06:00 FiO2 21 09/28/24 21:15 Oxygen Flow Rate (L/min) 2 Oxygen Delivery Method Nasal Cannula Weight: 139 lb 1 oz Body Mass Index (BMI) 27.3 Intake & Output: Intake and Output for Last 24 Hours 09/29/24 09/30/24 10/01/24 23:59 23:59 23:59 Intake Total 1300 / 1300 1909 240 / 240 Output Total 80 / 80 400 / 400 Balance 1220 / 1220 1909 -160 / -160 Lab / Micro Data 09/28/24 06:24 09/28/24 06:24 Micro: Microbiology 09/29/24 09:12 Exudate Gram Stain - Final 09/29/24 09:12 Exudate Wound Culture - Final Staphylococcus aureus 09/30/24 04:43 Stool Stool Occult Blood (JOVANI) - Final Occult Blood Positive Physical Exam Const Constitutional Narrative: Drowsy. Not hearing well at all and this is I believe contributing to confusion. He has no hearing aids that were ordered and his dtr is going to try and pick them up Always cooperative during the day. Taking naps during the day and not sleeping at night. General Appearance: cooperative HEENT Mouth: dry mucous membranes Eyes Eyes Narrative: the left eye is less erythematous since the Doxy was started. No purulent DC noted. Denies eye pain. Resp Resp Narrative: Having apneic periods when he is sleeping. Increasd rhonchi in the left lower lung lateral and posterior. Recent CXR without infiltrate. He is AF and is on doxyxycline. Effort and Inspection: Negative for tachypneic or respiratory distress Cardio regular rate and regular rhythm Cardio Narrative: occasional ectopic. MM are very dry. No ankle edema. HR increasing with activity.......suspect due to pain, IV volume depletion. GI normal to inspection, nondistended, normoactive bowel sounds, soft to palpation and non-tender Extremity no calf tenderness General Extremity: Negative for edema Assessment & Plan Assessment/Plan (1) Debility: (2) Acute ischemic right MCA stroke: (3) Left leg weakness: (4) Facial droop: (5) Cognitive dysfunction: (6) Paresthesias: (7) Inferior pubic ramus fracture: QUALIFIERS: Encounter type: initial encounter Fracture type: c losed Laterality: left Qualified Code(s): S32.592A - Other specified fracture of left pubis, initial encounter for closed fracture (8) Pain aggravated by physical activity: (9) Hypophosphatemia: (10) GERD (gastroesophageal reflux disease): QUALIFIERS: Esophagitis presence: without esophagitis Qualified Code(s): K21.9 - Gastro-esophageal reflux disease without esophagitis (11) Esophageal stenosis: (12) History of esophageal dilatation: (13) Dyslipidemia: (14) BPH (benign prostatic hyperplasia): QUALIFIERS: Lower urinary tract symptom presence: unspecified whether lower urinary tract symptoms present Qualified Code(s): N40.0 - Benign prostatic hyperplasia without lower urinary tract symptoms (15) Essential (primary) hypertension: (16) Hypoxemia associated with sleep: (17) Acute bronchitis: QUALIFIERS: Bronchitis organism: unspecified organism Qualified Code(s): J20.9 - Acute bronchitis, unspecified PLAN: Plan 1. Continue therapy 2. EKG-normal sinus rhythm. QTc is 414 ms and the QTc is 474. Left axis deviation. No ST elevation or depression noted. 3. Hold the Remeron and increased Seroquel to 37.5 mg at at bedtime. 4. Orthostatic vital signs today 5. Start gentamicin ophthalmic drops 2 drops to the left eye every 6 hours x 16 doses for Staph aureus conjunctivitis 6. O2 at 2 L/min anytime he is sleeping 7. ST to do a MBS this week. May need a GI consult/EGD. 8. follow up with neurology post DC from rehab for stroke and cognitive dysfunction 9. Check a CBC with differential, BMP and a T4 and T3 in the AM. TSH is WNL but, unusually low for this age. Charges/Coding Visit Charges Inpatient E&M: 82764 Subs Hosp L2
--- NOTE | 2024-10-01 13:21 | CASEMGMT ---
Social Work IDT met with patient and dtr for Team meeting. Discussed patient's progress in PT/OT/ST/SN. Educated to [facility] insurance with NRD 10/03 and continued stay is not guaranteed with each review and advanced notice is not required. Pt lives at home with and can assist with IADLs. Therapy will offer training to family to ensure pt's needs can be accommodated at home. Currently, pt is sundowning, impulsive, not sleeping well, having ST issues, and recommending 24/7 hands-on care. SW offered resources available to hire caregivers in the home or discussed AL/SNF, if needed. Will ReTeam weekly. SW will continue to follow for DC planning. - Pt is confused. SW verified contacts with dtr and asked additional assessment questions. 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 Updated contacts. SW did provide resources for medical alert, private duty caregivers and [facility] Life After a Stroke information packet. Dtr appreciative. Natividad Falcon P[employer] TELEPHONE MESSENGER
[2024-10-01] MEDS: Gentamicin Sulfate 1 OPTH.BTL 2 DRP LEFT EYE ×2 (16:49→22:58)
[2024-10-01] MEDS: QUEtiapine 25 MG Tablet 37.5 MG PO (21:07)
[2024-10-01] MEDS: traMADol 50 MG Tablet PO (21:07)
[2024-10-01] MEDS: Atorvastatin Calcium 40 MG Tablet PO (21:07)
[2024-10-02] VITALS (8 sets, daily range): BP systolic 125–144; BP diastolic 62–80; PULSE 71–88; RESP 16–17; TEMP 36.7–36.9; O2SAT 95–97; BMI 27.4
[2024-10-02] MEDS: Gentamicin Sulfate 1 OPTH.BTL 2 DRP LEFT EYE ×3 (05:22→17:52)
[2024-10-02] MEDS: Acetaminophen 500 MG Tablet 1000 MG PO ×3 (05:22→21:10)
[2024-10-02] MEDS: traMADol 50 MG Tablet 25 MG PO ×2 (05:23→15:30)
[2024-10-02 05:38] LABS: Absolute Lymphocyte Count 2.51 X10^3/uL (0.83-4.51); Absolute Neutrophil Count 5.7 X10^3/uL (2.0-7.7); Basophil# 0.07 X10^3/uL; Basophil% 0.7 % (0-1); Eosinophil# 1.23 X10^3/uL; Eosinophils% 11.5 % (0-5); Lymphocyte # 2.51 X10^3/ul (0.83-4.51); Lymphocyte % 23.4 % (19-41); Mean Corp Hgb Conc 33.3 g/dL (32-36); Mean Corpuscular Hgb 30.2 pg (27.0-32.0); Mean Corpuscular Volume 90.5 fL (80-94); Mean Platelet Vol. 10.5 fl (6.2-12.0); Monocyte# 1.09 X10^3/uL; Monocyte% 10.2 % (0-10); NRBC Flagged by Analyzer 0 % (0-5); Neutrophil # 5.65 X10^3/uL (2.7-7.7); Neutrophil % 52.5 % (47-70); Platelet Count 169 K/mm3 (150-450); RBC Distribution Width CV 14.5 % (11.6-14.6); RBC Distribution Width SD 48.8 fl (35.1-43.9); Red Blood Count 3.98 M/mm3 (4.6-6.2); White Blood Count 10.7 K/mm3 (4.4-11.0)
[2024-10-02 06:34] LABS: Free T3 2.5 pg/mL (2.18-3.98)
[2024-10-02 06:39] LABS: Anion Gap 10 (5-15); BUN 28 mg/dL (4-19); BUN/Creat Ratio 25.9 RATIO (10-20); Carbon Dioxide 24.5 mmol/L (21.0-32.0); Chloride 105 mmol/L (98-108); Creatinine, Serum 1.06 mg/dL (0.70-1.20); EST Glomerular Filtration Rate 68 (>60); Estimated Creatinine Clearance 37.75 ml/min (50-250); Glucose 91 mg/dL (70-99); Sodium Level 139 mmol/L (133-145)
[2024-10-02] MEDS: Ipratropium/Albuterol Sulfate 3 ML AMPUL.NEB INHALATION ×2 (06:50→19:40)
[2024-10-02] MEDS: Aspirin 81 MG TAB.CHEW PO (08:20)
--- NOTE | 2024-10-02 09:08 | SP.MBSS_ITS ---
Modified Barium Swallow Patient Information Study Date: 10/02/24 Study Time: 09:30 Direct Billable Minutes: 120 Total Minutes procedure & reportin Diagnosis: I63.511 - acute ischemic R MCA CVA Referring Physician: Amy Gaxiola Medical History: The patient is an 89-year-old male with a past medical history of hypertension, seizure disorder, vertigo, asthma, benign prostatic hyperplasia with urinary retention, history of colectomy, GERD, esophageal stenosis, osteoarthritis, and chronic debility. He presented to the Emergency Department at [facility] on 09/24/24 with complaints of left hip pain following a fall. Initial plain radiographs revealed no acute fracture of the left hip. However, a CT scan of the pelvis demonstrated an acute, nondisplaced fracture of the left inferior pubic ramus and a fracture of the anterior-inferior wall of the left acetabulum. No dislocation was observed. On 09/25/24, he was noted to have focal weakness of the left lower extremity that was disproportionate to what would be expected from the pelvic fractures alone. An MRI of the brain revealed small, acute infarcts in the right middle cerebral artery (MCA) territory, consistent with an acute stroke. On 09/27/24, the patient was transferred to the acute inpatient rehabilitation unit at [facility] with a diagnosis of post-stroke debility. He is scheduled to receive three hours of therapy daily aimed at restoring functional independence to his pre-event baseline. A dysphagia evaluation conducted on 10/03/24 recommended a MBSS to objectively assess swallowing function and determine the most appropriate PO diet. Current Diet Ordered: Easy to Chew / Thin Liquids Dentition: Upper Dentures and Lower Dentures Mental Status: Impaired Respiratory Status: Oxygenating on Room Air Penetration-Aspiration Scale Penetration-Aspiration Scale: OBJECTIVE ASSESSMENT OF SWALLOW FUNCTION (QUANTITATIVE ? PER TRIAL): PENETRATION / ASPIRATION SCALE (FELIZ): 1 = does not enter airway 2 = enters airway/above vocal folds/ejected 3 = enters airway/above vocal folds/not ejected 4 = enters airway/contacts vocal folds/ejected 5 = enters airway/contacts vocal folds/not ejected 6 = enters airway/below vocal folds/ejected 7 = enters airway/below vocal folds/not ejected despite effort 8 = enters airway/below vocal folds/no effort VIDEOFLOROSCOPIC SCALE SCORE (FELIZ): Grade I = aspiration of material that has penetrated into the laryngeal vestibule, intact cough reflex Grade II = aspiration < 10 % of the bolus, intact cough reflex Grade III = aspiration of < 10 % of the bolus, reduced cough reflex or aspiration of > 10 % of the bolus, intact cough reflex Grade IV = aspiration of > 10 % of the bolus, reduced cough reflex Penetration-Aspiration Scale Score Thin Liquid via teaspoon: Result: 2= enter airway/above vocal folds/ejected Thin Liquid via large single sip: cup: Result: 7= enters airways/below vocal folds/not ejected despite effort Thin Liquid via small single sip: cup: Result: 8= enters airway/below vocal folds/no effort [place] Thick Liquid via small single sip: cup: Result: 3= enters airways/above vocal folds/not ejected [place] Thick Liquid via teaspoon: Result: 1= does not enter airway [place] Thick Liquid via teaspoon Trial 2: Result: 1= does not enter airway [place] Thick Liquid via teaspoon Trial 3: Result: 2= enter airway/above vocal folds/ejected [place] Thick Liquid via small single sip: cup: Result: 3= enters airways/above vocal folds/not ejected [place] Thick Liquid via teaspoon Trial 4: Result: 1= does not enter airway Pudding: Result: 1= does not enter airway Cookie: Result: 1= does not enter airway [place] Thick Liquid via teaspoon Trial 5: Result: 1= does not enter airway [place] Thick Liquid via teaspoon Trial 6: Result: 1= does not enter airway [place] Thick Liquid via teaspoon Trial 7: Result: 2= enter airway/above vocal folds/ejected Thin Liquid via teaspoon Trial 2: Result: 5= enters airways/contacts vocal folds/not ejected Oral Phase Labial Seal: Interlabial escape, no progression to anterior lip Tongue Control During Bolus Hold: Posterior escape of less than half of bolus Bolus Preparation/Mastication: Disorganized chewing/mashing with solid pieces of bolus unchewed Bolus Transport/Lingual Motion: Repetitive/disorganized tongue motion Oral Residue: Residue collection on oral structures Pharyngeal Phase Initiation of Pharyngeal Swallow: Bolus head in pyriforms Soft Palate Elevation: No bolus between soft palate and pharyngeal wall Laryngeal Elevation: Partial superior movement thyroid cart/partial apprx aryt- epig petiole Anterior Hyoid Excursion: Partial anterior movement Epiglottic Movement: Partial inversion Laryngeal Vestibule Closure at Height of Swallow: Incomplete; narrow column of air/contrast in laryngeal vestibule Pharyngeal Stripping Wave: Present - diminished Pharyngoesophageal Segment Opening: Parital distension and partial duration; p arital obstruction of flow Tongue Base Retraction: Narrow column of contrast between tongue base & post. pharyngeal wall Pharyngeal Residue: Collection of residue within or on pharyngeal structures Esophageal Phase Esophageal Clearance: Complete clearance (with pudding and cookie trial) Diagnosis/Impression Diagnosis: moderate oropharyngeal dysphagia R13.12 Impression: The patient presents with oropharyngeal dysphagia likely secondary to acute CVA. MBSS revealed a disorganized oral phase characterized by repetitive AP tongue movements and lingual pumping. The patient required verbal cues to perform double swallows in order to clear oral residue. Notably, there was significant posterior loss of a Jeannette Doone cookie, with the majority of the bolus pooling in the vallecula and along the posterior surface of the epiglottis prior to swallow initiation. The patient demonstrated poor bolus control, with premature spillage into the pyriform sinuses with liquids, resulting in suboptimal bolus positioning at swallow onset. Silent aspiration was observed with thin liquids administered via cup. A delayed cough occurred once following an aspiration event. Aspiration attributed to incomplete airway closure at swallow onset, reduced laryngeal elevation, and decreased anterior hyoid excursion. Consistent laryngeal penetration to the level of the vocal cords and/or aspiration was observed with thin liquids, regardless of delivery method (tsp or cup) or use of swallowing strategies. The patient consistently required 2?3 swallows per trial. Pharyngeal residue was observed in the vallecula and pyriform sinuses, likely due to reduced tongue base retraction and partial UES opening. Occasional trace residue in the pyriform sinuses, likely due to partial UES opening, appeared to approach the airway; however, no penetration and/or aspiration was observed during fluoroscopy. The patient is at risk for pre-prandial, intra-prandial, and post-prandial aspiration. During the MBSS, the patient demonstrated a tendency to tilt the head backward, increasing the risk of aspiration. Verbal cues were required to maintain a neutral head position, which the patient was able to follow when prompted. Initial nectar-thick liquid trials via tsp administered by the STATEMENT DISTRIBUTION CLERK resulted in PAS scores of 1?2. When the patient self-administered nectar-thick liquids via tsp with a neutral head position, PAS scores remained at 1?2. Diet: Easy to chew and nectar-thick liquids by tsp. Supervision: Patient should be supervised during all PO intake due to cognitive impairments and difficulty following/recalling compensatory strategies. [place]on Free Water Protocol may be initiated to promote compliance with nectar-thick liquid recommendations, support hydration, and enhance overall quality of life. Recommendations Diet: Easy to Chew Textures and Mildly Thick Liquids (Liquid by Teaspoon Only) Compensatory Strategies: Small Bites, Small Sips (Intermittent Cough and Re- Swallow), Liquid by Teaspoon Only, Slow Rate, Feed only when alert, Multiple Swallows, Alternate bites/solids and sips/liquids, Sitting upright, Remain sitting upright for 30 minutes after PO intake and Assist with verbal cues to use recommended strategies Supervision: 1:1 Direct Supervision Recommend Repeat Modified Barium Swallow: Yes Need for Skilled Speech Therapy Services: Yes Education Completed: 1. Described result of evaluation., 2. Pt understands evaluation & agrees with goals and treatment plan. and 4. Family/caregivers understand evaluation & agree w/ goals & tx plan. Status Active ST Patient: Active Contact Information [facility] Speech Therapy:: Gia Sierra M.A., [facility]-STATEMENT DISTRIBUTION CLERK Speech-Language Pathologist [facility] [phone]? ?FAX [phone]? [email or web address] [address] [place] [address]? ?[place] [address]
[2024-10-02] MEDS: Pantoprazole Sodium 40 MG Tablet PO (09:24)
[2024-10-02] MEDS: Ensure Plus High Protein 120 ML LIQUID PO (09:24)
[2024-10-02] MEDS: Tamsulosin HCl 0.4 MG Capsule PO (09:24)
[2024-10-02] MEDS: Doxycycline 100 MG CAPSULE PO (09:24)
[2024-10-02] MEDS: Heparin Injection (Vial) 5,000 UNIT/ML VIAL 5000 UNIT SC ×2 (09:24→20:16)
[2024-10-02] MEDS: Clopidogrel Bisulfate 75 MG Tablet PO (09:25)
[2024-10-02] MEDS: Metoprolol Tartrate 25 MG Tablet PO ×2 (09:25→20:16)
[2024-10-02] MEDS: Cyanocobalamin 500 MCG Tablet PO (09:25)
[2024-10-02] MEDS: Senna/Docusate Sodium 1 Tablet 2 TABLET PO ×2 (09:25→20:16)
[2024-10-02] MEDS: Lisinopril 10 MG Tablet PO (09:26)
[2024-10-02] MEDS: Menthol/Lanolin/Calamine/Znox 113 GM Tube 1 APPLIC TOPICAL ×2 (09:33→20:19)
[2024-10-02] MEDS: Atorvastatin Calcium 40 MG Tablet PO (20:16)
[2024-10-02] MEDS: QUEtiapine 25 MG Tablet 37.5 MG PO (20:17)
[2024-10-02] MEDS: traMADol 50 MG Tablet PO (21:09)
[2024-10-03] VITALS (8 sets, daily range): BP systolic 119–126; BP diastolic 65–73; PULSE 66–91; RESP 16–17; TEMP 36.8–37.2; O2SAT 93–98; BMI 27.4
[2024-10-03] MEDS: Gentamicin Sulfate 1 OPTH.BTL 2 DRP LEFT EYE ×5 (00:26→23:06)
[2024-10-03] MEDS: Acetaminophen 500 MG Tablet 1000 MG PO ×3 (05:08→21:07)
[2024-10-03] MEDS: traMADol 50 MG Tablet 25 MG PO ×2 (05:08→15:25)
[2024-10-03] MEDS: Aspirin 81 MG TAB.CHEW PO (08:54)
[2024-10-03] MEDS: Heparin Injection (Vial) 5,000 UNIT/ML VIAL 5000 UNIT SC ×2 (09:16→21:07)
[2024-10-03] MEDS: Pantoprazole Sodium 40 MG Tablet PO (09:17)
[2024-10-03] MEDS: Metoprolol Tartrate 25 MG Tablet PO ×2 (09:17→21:23)
[2024-10-03] MEDS: Cyanocobalamin 500 MCG Tablet PO (09:17)
[2024-10-03] MEDS: Tamsulosin HCl 0.4 MG Capsule PO (09:17)
[2024-10-03] MEDS: Lisinopril 10 MG Tablet PO (09:18)
[2024-10-03] MEDS: Senna/Docusate Sodium 1 Tablet 2 TABLET PO ×2 (09:18→21:08)
[2024-10-03] MEDS: Clopidogrel Bisulfate 75 MG Tablet PO (09:18)
[2024-10-03] MEDS: Menthol/Lanolin/Calamine/Znox 113 GM Tube 1 APPLIC TOPICAL ×2 (09:20→21:05)
--- NOTE | 2024-10-03 11:51 | PN_ITS ---
Subjective Subjective Afebrile VSS - Maintaining appropriate oxygen saturation on RA Oral intake - FOOD good FLUIDS improving. Discussed with nursing - slept well last night. More alert for therapy today. Reviewed the THERAPY notes Medication list reviewed. Taking acetaminophen 1 g every 8 hours and tramadol 3 times daily for pain control. Pain is getting better and he is able to do more with therapy. Denies CP, SOB, cough, N/V/abd pain, dysuria and calf tenderness. Denies pruritus I reviewed the results of the MBS. He has moderate oropharyngeal dysphagia with aspiration of thin liquids and delayed cough. Needs a lot of cueing to utilize the different strategies to improve swallowing. All recent lab was personally reviewed. Hemoglobin is 12.0, down from 13.3 on 09/26/2024. I suspect this may be related to better hydration. White blood cell count is now normal at 10.7 with 52.5 neutrophils and 1.7% immature granulocytes. Eosinophils are increased at 11.5%. Platelets are within normal limits now. Sodium and potassium are within normal limits. The BUN is 28 with a creatinine of 1.06 which is stable. Free T4 and free T3 are both within normal limits. Objective Data Objective Data Vital Signs: Vital Signs Temp Pulse Resp BP Pulse Ox O2 Del Method O2 Flow Rate 98.3 F 66 16 126/71 H 95 Nasal Cannula 2 10/03/24 06:00 10/03/24 09:17 10/03/24 06:00 10/03/24 06:00 10/03/24 06:00 10/03/24 06:00 10/03/24 06:00 FiO2 21 09/28/24 21:15 Oxygen Flow Rate (L/min) 2 Oxygen Delivery Method Nasal Cannula Weight: 140 lb Body Mass Index (BMI) 27.4 Intake & Output: Intake and Output for Last 24 Hours 10/01/24 10/02/24 10/03/24 23:59 23:59 23:59 Intake Total 820 / 1020 1160 / 1160 590 / 590 Output Total 700 / 1100 700 / 700 200 / 200 Balance 120 / -80 460 / 460 390 / 390 Lab / Micro Data 10/02/24 05:06 10/02/24 05:06 Micro: Microbiology 09/29/24 09:12 Exudate Gram Stain - Final 09/29/24 09:12 Exudate Wound Culture - Final Staphylococcus aureus 09/30/24 04:43 Stool Stool Occult Blood (JOVANI) - Final Occult Blood Positive Physical Exam Const General Appearance: cooperative HEENT HEENT Narrative: Less periorbital swelling Left eye and less injection of the conjunctiva. Denies pain and also dies itching today. No purulent DC observed. Resp Resp Narrative: Persistent coarse crackles in the Left base. No wheezing. No conversational dyspnea. Not coughing today. Cardio regular rate and regular rhythm GI normal to inspection, nondistended, normoactive bowel sounds, soft to palpation and non-tender Extremity no calf tenderness General Extremity: Negative for edema Assessment & Plan Assessment/Plan (1) Debility: (2) Acute ischemic right MCA stroke: (3) Left leg weakness: (4) Facial droop: (5) Cognitive dysfunction: PLAN: Chronic.....most likely due to dementia. Exacerbated by CVA. (6) Paresthesias: (7) Inferior pubic ramus fracture: QUALIFIERS: Encounter type: initial encounter Fracture type: c losed Laterality: left Qualified Code(s): S32.592A - Other specified fracture of left pubis, initial encounter for closed fracture (8) Pain aggravated by physical activity: (9) Hypophosphatemia: (10) GERD (gastroesophageal reflux disease): QUALIFIERS: Esophagitis presence: without esophagitis Qualified Code(s): K21.9 - Gastro-esophageal reflux disease without esophagitis (11) Esophageal stenosis: (12) History of esophageal dilatation: (13) Dyslipidemia: (14) BPH (benign prostatic hyperplasia): QUALIFIERS: Lower urinary tract symptom presence: unspecified whether lower urinary tract symptoms present Qualified Code(s): N40.0 - Benign prostatic hyperplasia without lower urinary tract symptoms (15) Essential (primary) hypertension: (16) Hypoxemia associated with sleep: (17) Acute bronchitis: QUALIFIERS: Bronchitis organism: unspecified organism Qualified Code(s): J20.9 - Acute bronchitis, unspecified PLAN: Suspect due to moderate oropharyngeal dysphagia with aspiration of thin liquids (18) Conjunctivitis: QUALIFIERS: Conjunctivitis type: acute Acute conjunctivitis type: bacterial Laterality: left Qualified Code(s): H10.32 - Unspecified acute conjunctivitis, left eye PLAN: Due to Staph aureus, methicillin sensitive. (19) Dementia with behavioral disturbance: PLAN: Suspect Alzheimer's, fairly advanced. Will have him follow-up with neurology. (20) Productive cough: (21) Oropharyngeal dysphagia: PLAN: Moderate with aspiration of thin liquids (22) Aspiration into trachea: PLAN: Plan 1. Continue therapy 2. I suspect dementia is fairly well advanced and is contributing to dysphagia. [facility].......may benefit from tx. 3. Continue Seroquel at 37.5 mg at HS for dementia with behavior abnormality. 4. DC the doxycycline.........this is the newest drug and the most likely to be causing the eosinophilia. Recek a CBC with diff in a few days. Monitor closely for rash/pruritus/wheezing. Charges/Coding Visit Charges Inpatient E&M: 47057 Subs Hosp L1
[2024-10-03] MEDS: QUEtiapine 25 MG Tablet 37.5 MG PO (21:04)
[2024-10-03] MEDS: Atorvastatin Calcium 40 MG Tablet PO (21:08)
[2024-10-03] MEDS: traMADol 50 MG Tablet PO (21:08)
[2024-10-03] MEDS: Ensure Plus High Protein 120 ML LIQUID PO (21:29)
[2024-10-03] MEDS: Ipratropium/Albuterol Sulfate 3 ML AMPUL.NEB INHALATION (21:49)
[2024-10-04] VITALS (11 sets, daily range): BP systolic 110–139; BP diastolic 58–66; PULSE 65–91; RESP 16–17; TEMP 37–37.2; O2SAT 92–94; BMI 27.4
[2024-10-04] MEDS: Gentamicin Sulfate 1 OPTH.BTL 2 DRP LEFT EYE ×3 (05:25→17:13)
[2024-10-04] MEDS: Acetaminophen 500 MG Tablet 1000 MG PO ×3 (05:25→21:07)
[2024-10-04] MEDS: traMADol 50 MG Tablet 25 MG PO ×2 (05:32→14:39)
--- NOTE | 2024-10-04 06:05 | NURSING ---
01:30- O2 @ 2L while sleeping. SpO2 93% when checked.
[2024-10-04] MEDS: Ipratropium/Albuterol Sulfate 3 ML AMPUL.NEB INHALATION ×4 (08:00→19:09)
[2024-10-04] MEDS: Aspirin 81 MG TAB.CHEW PO (08:26)
[2024-10-04] MEDS: Tamsulosin HCl 0.4 MG Capsule PO (08:26)
[2024-10-04] MEDS: Metoprolol Tartrate 25 MG Tablet PO ×2 (08:26→21:10)
[2024-10-04] MEDS: Lisinopril 10 MG Tablet PO (08:26)
[2024-10-04] MEDS: Ergocalciferol 1.25 MG (50, 000 UNIT) Capsule PO (08:26)
[2024-10-04] MEDS: Pantoprazole Sodium 40 MG Tablet PO (08:26)
[2024-10-04] MEDS: Clopidogrel Bisulfate 75 MG Tablet PO (08:26)
[2024-10-04] MEDS: Cyanocobalamin 500 MCG Tablet PO (08:26)
[2024-10-04] MEDS: Heparin Injection (Vial) 5,000 UNIT/ML VIAL 5000 UNIT SC ×2 (08:30→21:06)
[2024-10-04] MEDS: Menthol/Lanolin/Calamine/Znox 113 GM Tube 1 APPLIC TOPICAL ×2 (08:32→21:06)
[2024-10-04] MEDS: QUEtiapine 25 MG Tablet 37.5 MG PO (20:57)
[2024-10-04] MEDS: Ensure Plus High Protein 120 ML LIQUID PO (21:06)
[2024-10-04] MEDS: traMADol 50 MG Tablet PO (21:07)
[2024-10-04] MEDS: Atorvastatin Calcium 40 MG Tablet PO (21:07)
--- NOTE | 2024-10-04 22:08 | NURSING ---
Pt set off BA and attempting to climb oob for toileting needs but failed to use call light.
--- NOTE | 2024-10-04 23:42 | NURSING ---
Pt attempting to get oob and setting off BA. Staff assisted with urinal use and repositioned for comfort. Pt very chatty this hs.
[2024-10-05] VITALS (8 sets, daily range): BP systolic 101–116; BP diastolic 56–75; PULSE 77–101; RESP 16–18; TEMP 36.6–36.7; O2SAT 92–96; BMI 27.4
[2024-10-05] MEDS: Gentamicin Sulfate 1 OPTH.BTL 2 DRP LEFT EYE ×3 (00:10→12:58)
--- NOTE | 2024-10-05 00:12 | NURSING ---
BA set off, pt's legs are over side of bed, and staff in room to assist with toileting needs. O2 found tucked under pt. Pt repositioned after using urinal and nasal cannula replaced on pt.
[2024-10-05] MEDS: Acetaminophen 500 MG Tablet 1000 MG PO ×3 (06:05→21:12)
[2024-10-05] MEDS: traMADol 50 MG Tablet 25 MG PO ×2 (06:07→12:59)
[2024-10-05] MEDS: Menthol/Lanolin/Calamine/Znox 113 GM Tube 1 APPLIC TOPICAL ×2 (07:51→20:43)
[2024-10-05] MEDS: Lisinopril 10 MG Tablet PO (07:52)
[2024-10-05] MEDS: Ensure Plus High Protein 120 ML LIQUID PO ×3 (07:52→17:55)
[2024-10-05] MEDS: Clopidogrel Bisulfate 75 MG Tablet PO (07:53)
[2024-10-05] MEDS: Metoprolol Tartrate 25 MG Tablet PO ×2 (07:53→21:14)
[2024-10-05] MEDS: Pantoprazole Sodium 40 MG Tablet PO (07:53)
[2024-10-05] MEDS: Tamsulosin HCl 0.4 MG Capsule PO (07:54)
[2024-10-05] MEDS: Cyanocobalamin 500 MCG Tablet PO (07:55)
[2024-10-05] MEDS: Aspirin 81 MG TAB.CHEW PO (07:56)
[2024-10-05] MEDS: Heparin Injection (Vial) 5,000 UNIT/ML VIAL 5000 UNIT SC ×2 (07:56→21:12)
[2024-10-05] MEDS: QUEtiapine 25 MG Tablet 37.5 MG PO (20:39)
[2024-10-05] MEDS: traMADol 50 MG Tablet PO (21:12)
[2024-10-05] MEDS: Atorvastatin Calcium 40 MG Tablet PO (21:14)
[2024-10-06] VITALS (8 sets, daily range): BP systolic 115–135; BP diastolic 66–70; PULSE 72–103; RESP 16–18; TEMP 37.1–37.3; O2SAT 90–97; BMI 27.4
[2024-10-06] MEDS: Acetaminophen 500 MG Tablet 1000 MG PO ×3 (05:51→20:18)
[2024-10-06] MEDS: traMADol 50 MG Tablet 25 MG PO ×2 (05:51→13:40)
[2024-10-06] MEDS: Aspirin 81 MG TAB.CHEW PO (07:30)
[2024-10-06] MEDS: Tamsulosin HCl 0.4 MG Capsule PO (07:30)
[2024-10-06] MEDS: Metoprolol Tartrate 25 MG Tablet PO ×2 (07:30→20:20)
[2024-10-06] MEDS: Heparin Injection (Vial) 5,000 UNIT/ML VIAL 5000 UNIT SC ×2 (07:30→20:17)
[2024-10-06] MEDS: Ensure Plus High Protein 120 ML LIQUID PO ×3 (07:31→18:00)
[2024-10-06] MEDS: Cyanocobalamin 500 MCG Tablet PO (07:31)
[2024-10-06] MEDS: Clopidogrel Bisulfate 75 MG Tablet PO (07:31)
[2024-10-06] MEDS: Menthol/Lanolin/Calamine/Znox 113 GM Tube 1 APPLIC TOPICAL ×2 (07:31→20:19)
[2024-10-06] MEDS: Lisinopril 10 MG Tablet PO (07:31)
[2024-10-06] MEDS: Pantoprazole Sodium 40 MG Tablet PO (07:31)
[2024-10-06] MEDS: Ipratropium/Albuterol Sulfate 3 ML AMPUL.NEB INHALATION (19:02)
[2024-10-06] MEDS: QUEtiapine 25 MG Tablet 37.5 MG PO (20:18)
[2024-10-06] MEDS: Atorvastatin Calcium 40 MG Tablet PO (20:18)
[2024-10-06] MEDS: traMADol 50 MG Tablet PO (20:23)
[2024-10-07] VITALS (8 sets, daily range): BP systolic 110–152; BP diastolic 50–65; PULSE 68–97; RESP 16–18; TEMP 36.1–36.8; O2SAT 90–95; BMI 27.4
[2024-10-07] MEDS: traMADol 50 MG Tablet 25 MG PO ×3 (05:41→17:13)
[2024-10-07] MEDS: Acetaminophen 500 MG Tablet 1000 MG PO ×3 (05:41→21:30)
[2024-10-07] MEDS: Cyanocobalamin 500 MCG Tablet PO (07:47)
[2024-10-07] MEDS: Pantoprazole Sodium 40 MG Tablet PO (07:47)
[2024-10-07] MEDS: Clopidogrel Bisulfate 75 MG Tablet PO (07:47)
[2024-10-07] MEDS: Aspirin 81 MG TAB.CHEW PO (07:47)
[2024-10-07] MEDS: Heparin Injection (Vial) 5,000 UNIT/ML VIAL 5000 UNIT SC ×2 (07:48→21:25)
[2024-10-07] MEDS: Lisinopril 10 MG Tablet PO (07:48)
[2024-10-07] MEDS: Tamsulosin HCl 0.4 MG Capsule PO (07:48)
[2024-10-07] MEDS: Metoprolol Tartrate 25 MG Tablet PO ×2 (07:49→21:27)
[2024-10-07] MEDS: Ensure Plus High Protein 120 ML LIQUID PO ×4 (07:52→21:24)
[2024-10-07] MEDS: Ipratropium/Albuterol Sulfate 3 ML AMPUL.NEB INHALATION ×2 (11:40→18:53)
--- NOTE | 2024-10-07 11:54 | PCM.PROGNOTE ---
Subjective Subjective Michael was seen on team rounds today. His dtr was present in the room. All questions were answered. Afebrile VSS -blood pressure over the weekend has ranged from 108/75 to 152/65 (this is an outlier. All other BP's have been at goal.) Maintaining appropriate oxygen saturation on RA Oral intake - FOOD good FLUIDS erratic. Ranges from poor to good. Discussed with nursing - no problems that need addressed. Continent during the day for the most part. Occasional incontinence of urine at night. Reviewed the THERAPY notes Medication list reviewed. Michael has been c/o nightmares....sometimes they are scary but, he knows they are not real. He denies cephalgia, lightheadedness, shortness of breath, chest pain, palpitations, nausea/vomiting/abdominal pain, dysuria and calf tenderness. He is more impulsive at night than during the day. Pain is more tolerable than last week and he did better with therapy today. Cough has improved significantly since the changes to diet were made. Objective Data Objective Data Vital Signs: Vital Signs Temp Pulse Resp BP Pulse Ox O2 Del Method O2 Flow Rate 98.1 F 79 18 120/62 95 Room Air 2 10/07/24 05:22 10/07/24 07:49 10/07/24 05:22 10/07/24 07:49 10/07/24 05:22 10/07/24 10:00 10/07/24 05:22 FiO2 21 09/28/24 21:15 Oxygen Flow Rate (L/min) 2 Oxygen Delivery Method Room Air Weight: 140 lb Body Mass Index (BMI) 27.4 Intake & Output: Intake and Output for Last 24 Hours 10/05/24 10/06/24 10/07/24 23:59 23:59 23:59 Intake Total 1125 / 1125 800 / 800 550 / 550 Output Total 510 / 510 750 / 750 350 / 350 Balance 615 / 615 50 / 50 200 / 200 Lab / Micro Data 10/02/24 05:06 10/02/24 05:06 Micro: Microbiology 09/29/24 09:12 Exudate Gram Stain - Final 09/29/24 09:12 Exudate Wound Culture - Final Staphylococcus aureus 09/30/24 04:43 Stool Stool Occult Blood (JOVANI) - Final Occult Blood Positive Physical Exam Const alert and no apparent distress Constitutional Narrative: Sitting in the recliner at the bedside. Engaged in conversation. General Appearance: cooperative Resp Resp Narrative: Persistent coarse crackles in the left base posteriorly. No wheezing. Did not cough with deep breathing. Not tachypneic and no conversational dyspnea. Cardio regular rate, regular rhythm and no gallops Cardio Narrative: No ectopy today. GI normal to inspection, nondistended, normoactive bowel sounds, soft to palpation and non-tender GI Narrative: having some loose stool. No guarding with palpation. BS's are not hyperactive. Extremity no calf tenderness General Extremity: Negative for edema Skin Rashes: no rashes Psych Psych Narrative: Impulsive at night. During the day he is using his call light. Has been very cooperative with everyone and always pleasant with no agitation since the Seroquel was added to the drug regimen. sleeping well at night now. Assessment & Plan Assessment/Plan (1) Debility: (2) Acute ischemic right MCA stroke: (3) Left leg weakness: (4) Facial droop: (5) Cognitive dysfunction: (6) Paresthesias: (7) Inferior pubic ramus fracture: QUALIFIERS: Encounter type: initial encounter Fracture type: closed Laterality: left Qualified Code(s): S32.592A - Other specified fracture of left pubis, initial encounter for closed fracture (8) Pain aggravated by physical activity: (9) Hypophosphatemia: (10) GERD (gastroesophageal reflux disease): QUALIFIERS: Esophagitis presence: without esophagitis Qualified Code(s): K21.9 - Gastro-esophageal reflux disease without esophagitis (11) Esophageal stenosis: (12) History of esophageal dilatation: (13) Dyslipidemia: (14) BPH (benign prostatic hyperplasia): QUALIFIERS: Lower urinary tract symptom presence: unspecified whether lower urinary tract symptoms present Qualified Code(s): N40.0 - Benign prostatic hyperplasia without lower urinary tract symptoms (15) Essential (primary) hypertension: (16) Hypoxemia associated with sleep: (17) Acute bronchitis: QUALIFIERS: Bronchitis organism: unspecified organism Qualified Code(s): J20.9 - Acute bronchitis, unspecified (18) Conjunctivitis: QUALIFIERS: Conjunctivitis type: acute Acute conjunctivitis type: bacterial Laterality: left Qualified Code(s): H10.32 - Unspecified acute conjunctivitis, left eye (19) Dementia with behavioral disturbance: (20) Productive cough: (21) Oropharyngeal dysphagia: (22) Aspiration into trachea: PLAN: Plan 1. Continue therapy 2. He has been getting Tramadol 50 mg at HS and 37.5 mg of Seroquel. He is sleeping well now but, having nightmares. It may be due to the drug interaction between Tramadol and Seroquel. Will change the Tramadol to 25 mg at 6 AM, noon and 6 PM. No Tramadol at HS. Continue Seroquel 37.5 mg at HS. 3. Pain is adequately controlled at this time. 4. Family is going to arrange for 28/11 care at home. His just got out of the hospital yesterday. She is not able to care for Michael. 5. Will need continued therapy at [place]? 6. Decrease senna to 1 tablet twice daily. Charges/Coding Visit Charges Inpatient E&M: 12636 Subs Hosp L2
--- NOTE | 2024-10-07 12:53 | CASEMGMT ---
Social Work IDT met with patient and dtr for Team meeting. Discussed patient's progress in PT/OT/ST/SN. Educated to [facility] insurance with NRD 10/07 and continued stay is not guaranteed with each review; no advance notice is required for DC date. Explained IDT recommendation is 24/7 care, specifically care at night, outside of living with him. SW offered to provide caregiver resources, AL or SNF. Dtr stated all of the siblings are meeting in the next day or two to determine what is the realistic and not realistic to what the kids can do. SW provided contact information to notify. SW will continue to follow for DC planning. Will ReTeam weekly. Natividad Falcon [employer]
[2024-10-07] MEDS: Menthol/Lanolin/Calamine/Znox 113 GM Tube 1 APPLIC TOPICAL ×2 (13:08→21:23)
[2024-10-07] MEDS: QUEtiapine 25 MG Tablet 37.5 MG PO (20:29)
[2024-10-07] MEDS: Atorvastatin Calcium 40 MG Tablet PO (21:26)
[2024-10-07] MEDS: Senna/Docusate Sodium 1 Tablet PO (21:30)
--- NOTE | 2024-10-07 22:57 | NURSING ---
Pt set off BA after staff was in the room 20 minutes earlier for toileting needs. Pt was restless and trying to get oob. O2 tubing was thrown on floor at foot of bed. Pt claimed he had to urinate again. Urinal was used. Attends was wet and pt urinated 80ml. Staff repositioned pt and reoriented pt to time of night and encouraged pt to try to get some sleep. Call light is beside pt in bed and bed is in lowest position with BA set.
--- NOTE | 2024-10-07 23:40 | NURSING ---
Pt set off BA and was found in bed with legs swung over right side of bed. Pt denied needs, was repositioned in bed, and reoriented to time of night.
[2024-10-08] VITALS (11 sets, daily range): BP systolic 106–156; BP diastolic 66–69; PULSE 68–102; RESP 15–18; TEMP 36.7–36.8; O2SAT 91–95; BMI 27.4
--- NOTE | 2024-10-08 00:50 | NURSING ---
Patient rated his pain as a 1\10. Repositioned patient. Pt. stated that the K-Pad to his back is helping with his back discomfort.
[2024-10-08] MEDS: Acetaminophen 500 MG Tablet 1000 MG PO ×3 (05:54→21:46)
[2024-10-08] MEDS: traMADol 50 MG Tablet 25 MG PO ×3 (05:55→17:21)
[2024-10-08] MEDS: Ipratropium/Albuterol Sulfate 3 ML AMPUL.NEB INHALATION ×4 (07:09→19:30)
[2024-10-08 07:47] LABS: Magnesium 1.8 mg/dL (1.5-2.2); Phosphorus 3.1 mg/dL (2.7-4.5)
[2024-10-08] MEDS: Metoprolol Tartrate 25 MG Tablet PO ×2 (07:50→21:44)
[2024-10-08] MEDS: Cyanocobalamin 500 MCG Tablet PO (07:50)
[2024-10-08] MEDS: Aspirin 81 MG TAB.CHEW PO (07:50)
[2024-10-08] MEDS: Lisinopril 10 MG Tablet PO (07:50)
[2024-10-08] MEDS: Clopidogrel Bisulfate 75 MG Tablet PO (07:51)
[2024-10-08] MEDS: Menthol/Lanolin/Calamine/Znox 113 GM Tube 1 APPLIC TOPICAL ×2 (07:51→21:42)
[2024-10-08] MEDS: Pantoprazole Sodium 40 MG Tablet PO (07:51)
[2024-10-08] MEDS: Senna/Docusate Sodium 1 Tablet PO ×2 (07:51→21:46)
[2024-10-08] MEDS: Ensure Plus High Protein 120 ML LIQUID PO ×4 (07:51→21:43)
[2024-10-08] MEDS: Tamsulosin HCl 0.4 MG Capsule PO (07:51)
[2024-10-08] MEDS: Heparin Injection (Vial) 5,000 UNIT/ML VIAL 5000 UNIT SC ×2 (07:53→21:43)
--- NOTE | 2024-10-08 10:54 | PN_ITS ---
Subjective Subjective Afebrile VSS - Maintaining appropriate oxygen saturation on RA Oral intake - FOOD good FLUIDS fluid intake yesterday was 1590. Discussed with nursing - Restless last night and did not sleep well. Setting off the bed alarms. Trying to get out of bed. Reviewed the THERAPY notes Medication list reviewed. Mag is 1.8 today and the phos is 3.1. He is sleepy today and keeps nodding off. Not able to finish his thoughts with me when we are talking and then just mumbles. Told me that he dreamed he jumped out of a plane last night. D/W OT/PT. More confused with them today. When we ask about pain he is not able to give an answer that makes any sense. He is not aggressive or agitated. Does not appear to be in any pain sitting in the recliner. He seems to have a few good nights and then he gets restless again at night. Objective Data Objective Data Vital Signs: Vital Signs Temp Pulse Resp BP Pulse Ox O2 Del Method O2 Flow Rate 98.2 F 93 16 156/69 H 94 Room Air 2 10/08/24 06:00 10/08/24 07:50 10/08/24 07:09 10/08/24 06:00 10/08/24 07:09 10/08/24 09:22 10/08/24 07:09 FiO2 21 09/28/24 21:15 Oxygen Flow Rate (L/min) 2 Oxygen Delivery Method Room Air Weight: 140 lb Body Mass Index (BMI) 27.4 Intake & Output: Intake and Output for Last 24 Hours 10/06/24 10/07/24 10/08/24 23:59 23:59 23:59 Intake Total 800 / 800 1590 / 1590 510 / 510 Output Total 750 / 750 530 / 530 170 / 170 Balance 50 / 50 1060 / 1060 340 / 340 Lab / Micro Data 10/02/24 05:06 10/02/24 05:06 Labs: Laboratory Results - last 24 hr 10/08/24 07:07: Phosphorus 3.1, Magnesium 1.8 Micro: Microbiology 09/29/24 09:12 Exudate Gram Stain - Final 09/29/24 09:12 Exudate Wound Culture - Final Staphylococcus aureus 09/30/24 04:43 Stool Stool Occult Blood (JOVANI) - Final Occult Blood Positive Assessment & Plan Assessment/Plan (1) Debility: (2) Acute ischemic right MCA stroke: (3) Left leg weakness: (4) Facial droop: (5) Cognitive dysfunction: (6) Paresthesias: (7) Inferior pubic ramus fracture: QUALIFIERS: Encounter type: initial encounter Fracture type: c losed Laterality: left Qualified Code(s): S32.592A - Other specified fracture of left pubis, initial encounter for closed fracture (8) Pain aggravated by physical activity: (9) Hypophosphatemia: (10) GERD (gastroesophageal reflux disease): QUALIFIERS: Esophagitis presence: without esophagitis Qualified Code(s): K21.9 - Gastro-esophageal reflux disease without esophagitis (11) Esophageal stenosis: (12) History of esophageal dilatation: (13) Dyslipidemia: (14) BPH (benign prostatic hyperplasia): QUALIFIERS: Lower urinary tract symptom presence: unspecified whether lower urinary tract symptoms present Qualified Code(s): N40.0 - Benign prostatic hyperplasia without lower urinary tract symptoms (15) Essential (primary) hypertension: (16) Hypoxemia associated with sleep: (17) Acute bronchitis: QUALIFIERS: Bronchitis organism: unspecified organism Qualified Code(s): J20.9 - Acute bronchitis, unspecified (18) Conjunctivitis: QUALIFIERS: Conjunctivitis type: acute Acute conjunctivitis type: bacterial Laterality: left Qualified Code(s): H10.32 - Unspecified acute conjunctivitis, left eye (19) Dementia with behavioral disturbance: (20) Productive cough: (21) Oropharyngeal dysphagia: (22) Aspiration into trachea: PLAN: Plan 1. Continue therapy 2. Add magnesium chloride to the current drug regimen and maintain the magnesium around 2. 3. CBC and BMP ordered for . 4. Add Melatonin 3 mg at HS tonight. If this fails to improve sleep will consider either Trazodone 25 mg or Citalopram 10 mg (this is for shelter and may not be beneficial in the short term. I suspect he will do better at home in familiar surroundings. The Seroquel may be causing nightmares but the incidence of agitation and restlessness is fairly low with Seroquel. Drowsiness is more common. Charges/Coding Visit Charges Inpatient E&M: 20219 Subs Hosp L1
--- NOTE | 2024-10-08 15:47 | CASEMGMT ---
Social Work Pt's dtr, Amy, presented to this worker's office, requesting to speak with this worker about DC options. SW noted dtr emotionally fragile and provided empathetic listening. Dtr expressed the family's inability to care for pt and his at home currently. Pt's was recently discharged from the hospital and family are caring for her, thus she cannot continue caring for pt. Dtr is realistic to pt needing 24/7 hands-on care and that family assisting will not be sustainable. Dtr inquired about other options and cost of services. SW positively recognized dtr for making that realization and seeking alternative help. SW educated and provided resources for hiring caregivers, AL and SNF - all at an OOP cost. Educated to pt and moving into AL together, but unsure if pt would be appropriate for standard AL or if memory care would be needed. Offered to make referrals for AL to determine. Dtr stated she and siblings prefer to keep pt and in the home, if possible. SW educated to hiring caregivers for night time and pt attending [facility] during the day, as an option. SW also provided Medicaid checklist for dtr to complete to determine pt's eligibility and funds available. Dtr appreciative of assistance and expressed feeling overwhelmed with needing to find care for pt and at the same time. SW validated feelings and provided support. Offered ongoing assistance with navigating DC plans. Natividad Falcon MSW [employer]
[2024-10-08] MEDS: QUEtiapine 25 MG Tablet 37.5 MG PO (20:18)
[2024-10-08] MEDS: Atorvastatin Calcium 40 MG Tablet PO (21:44)
[2024-10-08] MEDS: MELATONIN 3 MG TABLET PO (21:46)
--- NOTE | 2024-10-08 22:58 | NURSING ---
Pt. rated pain a 05/17. Pt. head repositioned as well as Kpad on patient back.
--- NOTE | 2024-10-08 23:38 | NURSING ---
Pt set off BA and was found with legs over edge of bed. Staff assisted with toileting needs and repositioned pt in bed.
[2024-10-09] VITALS (10 sets, daily range): BP systolic 119–136; BP diastolic 64–65; PULSE 78–96; RESP 14–18; TEMP 37.2; O2SAT 92–95; BMI 27.4; BMI 27.7
--- NOTE | 2024-10-09 03:37 | NURSING ---
00:20- SpO2 checked and O2 with 2L- 93%.
[2024-10-09] MEDS: Acetaminophen 500 MG Tablet 1000 MG PO ×3 (05:46→20:26)
[2024-10-09] MEDS: traMADol 50 MG Tablet 25 MG PO ×3 (05:47→17:56)
[2024-10-09] MEDS: Ipratropium/Albuterol Sulfate 3 ML AMPUL.NEB INHALATION ×4 (07:18→19:00)
[2024-10-09] MEDS: Heparin Injection (Vial) 5,000 UNIT/ML VIAL 5000 UNIT SC ×2 (08:09→20:24)
[2024-10-09] MEDS: Lisinopril 10 MG Tablet PO (08:09)
[2024-10-09] MEDS: Cyanocobalamin 500 MCG Tablet PO (08:09)
[2024-10-09] MEDS: Tamsulosin HCl 0.4 MG Capsule PO (08:09)
[2024-10-09] MEDS: Aspirin 81 MG TAB.CHEW PO (08:09)
[2024-10-09] MEDS: Metoprolol Tartrate 25 MG Tablet PO ×2 (08:09→20:26)
[2024-10-09] MEDS: Clopidogrel Bisulfate 75 MG Tablet PO (08:09)
[2024-10-09] MEDS: Pantoprazole Sodium 40 MG Tablet PO (08:09)
[2024-10-09] MEDS: Ensure Plus High Protein 120 ML LIQUID PO ×3 (08:10→17:57)
[2024-10-09] MEDS: Menthol/Lanolin/Calamine/Znox 113 GM Tube 1 APPLIC TOPICAL ×2 (08:10→20:29)
[2024-10-09] MEDS: Nystatin Powder 15gm Bottle 1 APPLIC TOPICAL ×2 (08:12→20:30)
[2024-10-09] MEDS: Senna/Docusate Sodium 1 Tablet PO (08:21)
[2024-10-09] MEDS: QUEtiapine 25 MG Tablet 37.5 MG PO (20:25)
[2024-10-09] MEDS: Atorvastatin Calcium 40 MG Tablet PO (20:26)
[2024-10-09] MEDS: MELATONIN 3 MG TABLET PO (20:29)
[2024-10-10] VITALS (8 sets, daily range): BP systolic 122–127; BP diastolic 59–69; PULSE 68–95; RESP 16–18; TEMP 36.8–37.1; O2SAT 92–96; BMI 27.7
[2024-10-10] MEDS: traMADol 50 MG Tablet 25 MG PO ×3 (03:41→17:37)
[2024-10-10] MEDS: Acetaminophen 500 MG Tablet 1000 MG PO ×3 (03:41→20:31)
[2024-10-10] MEDS: Menthol/Lanolin/Calamine/Znox 113 GM Tube 1 APPLIC TOPICAL ×2 (03:42→20:33)
[2024-10-10] MEDS: Nystatin Powder 15gm Bottle 1 APPLIC TOPICAL ×2 (03:42→20:32)
[2024-10-10 05:56] LABS: Hemoglobin 11.6 g/dL (13.0-16.5); Mean Corp Hgb Conc 33.1 g/dL (32-36); Mean Corpuscular Hgb 30.2 pg (27.0-32.0); Mean Corpuscular Volume 91.1 fL (80-94); Mean Platelet Vol. 9.9 fl (6.2-12.0); Platelet Count 333 K/mm3 (150-450); RBC Distribution Width CV 14.7 % (11.6-14.6); RBC Distribution Width SD 49.1 fl (35.1-43.9); Red Blood Count 3.84 M/mm3 (4.6-6.2); White Blood Count 11.7 K/mm3 (4.4-11.0)
[2024-10-10 06:29] LABS: ALB/GLOB Ratio 1.1 RATIO (0.9-2.4); AST(SGOT) 19 U/L (<=37); Alanine Aminotransfer ALT/SGPT 16 U/L (<=46); Albumin, Serum 3.2 g/dL (3.4-4.8); Alkaline Phosphatase 105 U/L (40-129); Anion Gap 9 (5-15); BUN 26 mg/dL (4-19); BUN/Creat Ratio 22.1 RATIO (10-20); Carbon Dioxide 28.6 mmol/L (21.0-32.0); Chloride 105 mmol/L (98-108); Creatinine, Serum 1.17 mg/dL (0.70-1.20); EST Glomerular Filtration Rate 60 (>60); Estimated Creatinine Clearance 34.32 ml/min (50-250); Globulin 2.9 g/dL (2.2-4.2); Glucose 88 mg/dL (70-99); Potassium 4.7 mmol/L (3.3-5.1); Protein, Total 6.1 g/dL (5.9-8.4); Sodium Level 142 mmol/L (133-145); Total Bilirubin 0.46 mg/dL (0.00-1.30)
[2024-10-10] MEDS: Ipratropium/Albuterol Sulfate 3 ML AMPUL.NEB INHALATION ×4 (06:48→19:15)
[2024-10-10] MEDS: Heparin Injection (Vial) 5,000 UNIT/ML VIAL 5000 UNIT SC ×2 (07:56→20:33)
[2024-10-10] MEDS: Clopidogrel Bisulfate 75 MG Tablet PO (07:56)
[2024-10-10] MEDS: Senna/Docusate Sodium 1 Tablet PO (07:56)
[2024-10-10] MEDS: Pantoprazole Sodium 40 MG Tablet PO (07:56)
[2024-10-10] MEDS: Cyanocobalamin 500 MCG Tablet PO (07:56)
[2024-10-10] MEDS: Metoprolol Tartrate 25 MG Tablet PO ×2 (07:56→20:32)
[2024-10-10] MEDS: Ensure Plus High Protein 120 ML LIQUID PO ×4 (07:56→20:31)
[2024-10-10] MEDS: Aspirin 81 MG TAB.CHEW PO (07:56)
[2024-10-10] MEDS: Lisinopril 10 MG Tablet PO (07:56)
[2024-10-10] MEDS: Tamsulosin HCl 0.4 MG Capsule PO (07:56)
--- NOTE | 2024-10-10 10:20 | PCM.PROGNOTE ---
Subjective Subjective Afebrile VSS -blood pressure is at goal of Less than 140/80. Heart rate is within normal limits. Maintaining appropriate oxygen saturation on RA Oral intake - FOOD good FLUIDS poor yesterday. He only took 680 p.o. Output is not generally accurate secondary to urinary incontinence. Postvoid residuals are not consistent with urine retention. He is continent of stool. Having regular bowel movements. Discussed with nursing - no problems that need addressed....Nursing reports that he has slept better the past few night. Has not had to have Trazodone. Not always wearing the O2 at night. Reviewed the THERAPY notes Medication list reviewed. All lab today was personally reviewed. White blood cell count is mildly increased at 11.7. Diff ordered. Hemoglobin is 11.6 and platelets are within normal limits. Sodium is 142 and the potassium is 4.7. The BUN is 26 and stable. Creatinine is 1.17 which is up from 1.06 one week ago. LFTs are normal. Eos are down to 9.6% from 11.5 the other day Family brought in the 30 day event monitor and we will apply while on rehab. Michael denies any nightmares last night. He has no complaints today. He tells me the pain is better. Still impulsive and trying to get up by himself. MOD A for toileting to manage clothing. Incontinent of urine. Objective Data Objective Data Vital Signs: Vital Signs Temp Pulse Resp BP Pulse Ox O2 Del Method O2 Flow Rate 98.3 F 70 16 127/63 H 92 Room Air 2 10/10/24 03:34 10/10/24 07:56 10/10/24 06:48 10/10/24 03:34 10/10/24 06:48 10/10/24 06:48 10/09/24 21:14 FiO2 21 09/28/24 21:15 Oxygen Flow Rate (L/min) 2 Oxygen Delivery Method Room Air Weight: 141 lb 1.533 oz Body Mass Index (BMI) 27.7 Intake & Output: Intake and Output for Last 24 Hours 10/08/24 10/09/24 10/10/24 23:59 23:59 23:59 Intake Total 1410 / 1410 680 / 680 240 / 240 Output Total 645 / 645 140 / 140 Balance 765 / 765 540 / 540 240 / 240 Lab / Micro Data 10/10/24 05:41 10/10/24 05:41 Labs: Laboratory Results - last 24 hr 10/10/24 05:41: WBC 11.7 H, RBC 3.84 L, Hgb 11.6 L, Hct 35.0 L, MCV 91.1, MCH 30.2, MCHC 33.1, RDW Std Deviation 49.1 H, RDW Coeff of Brook 14.7 H, Plt Count 333, MPV 9.9, Sodium 142, Potassium 4.7, Chloride 105, Carbon Dioxide 28.6, Anion Gap 9, BUN 26 H, Creatinine 1.17, Estim Creat Clear Calc 34.32 L, Est GFR (MDRD) Non-Af 60, BUN/Creatinine Ratio 22.1 H, Glucose 88, Calcium 9.0, Total Bilirubin 0.46, AST 19, ALT 16, Alkaline Phosphatase 105, Total Protein 6.1, Albumin 3.2 L, Globulin 2.9, Albumin/Globulin Ratio 1.1 Micro: Microbiology 09/29/24 09:12 Exudate Gram Stain - Final 09/29/24 09:12 Exudate Wound Culture - Final Staphylococcus aureus 09/30/24 04:43 Stool Stool Occult Blood (JOVANI) - Final Occult Blood Positive Physical Exam Const alert and no apparent distress Constitutional Narrative: Sitting in the recliner at the bedside. Engaged in conversation. I observed him eating his lunch and he is not coughing. He is feeding himself. Does not appear drowsy today. Did OT mostly in the WC......kept saying I'm done to the therapist. General Appearance: cooperative Resp Resp Narrative: Persistent coarse crackles in the left base posteriorly. No wheezing. Did not cough with deep breathing. Not tachypneic and no conversational dyspnea. Cardio regular rate, regular rhythm and no gallops Cardio Narrative: No ectopy today. GI normal to inspection, nondistended, normoactive bowel sounds, soft to palpation and non-tender GI Narrative: having some loose stool. No guarding with palpation. BS's are not hyperactive. Extremity no calf tenderness General Extremity: Negative for edema Skin Rashes: no rashes Wound Narrative: Small split in the skin over the distal coccyx.......will continue Calmoseptine. Assessment & Plan Assessment/Plan (1) Debility: (2) Acute ischemic right MCA stroke: (3) Left leg weakness: (4) Facial droop: (5) Cognitive dysfunction: (6) Paresthesias: (7) Inferior pubic ramus fracture: QUALIFIERS: Encounter type: initial encounter Fracture type: closed Laterality: left Qualified Code(s): S32.592A - Other specified fracture of left pubis, initial encounter for closed fracture (8) Pain aggravated by physical activity: (9) Hypophosphatemia: (10) GERD (gastroesophageal reflux disease): QUALIFIERS: Esophagitis presence: without esophagitis Qualified Code(s): K21.9 - Gastro-esophageal reflux disease without esophagitis (11) Esophageal stenosis: (12) History of esophageal dilatation: (13) Dyslipidemia: (14) BPH (benign prostatic hyperplasia): QUALIFIERS: Lower urinary tract symptom presence: unspecified whether lower urinary tract symptoms present Qualified Code(s): N40.0 - Benign prostatic hyperplasia without lower urinary tract symptoms (15) Essential (primary) hypertension: (16) Hypoxemia associated with sleep: (17) Acute bronchitis: QUALIFIERS: Bronchitis organism: unspecified organism Qualified Code(s): J20.9 - Acute bronchitis, unspecified (18) Conjunctivitis: QUALIFIERS: Conjunctivitis type: acute Acute conjunctivitis type: bacterial Laterality: left Qualified Code(s): H10.32 - Unspecified acute conjunctivitis, left eye (19) Dementia with behavioral disturbance: (20) Productive cough: (21) Oropharyngeal dysphagia: (22) Aspiration into trachea: (23) Eosinophilia, unspecified: QUALIFIERS: Eosinophilia type: unspecified eosinophilia Qualified Code(s): D72.10 - Eosinophilia, unspecified PLAN: not sure what is causing this but, the absolute eosinophil count is only 1,123 and he has no rash and no pruritus so no need for further work up at this time. PLAN: Plan 1. Continue therapy. 2. Not sure how much more progress he is going to be able to make on rehab. He is now sleeping at night and pain is adequately controlled. Cough is very rare now since ST changed his diet. ? whether family is going to be able to provide enough supervision to Michael and his (also recently discharged from the hospital) - Michael needs 24/7 supervision. D/W SW and she is going to reach out to his dtr to discuss DC. He has increased pain after therapy/wt bearing but, he needs to keep moving to prevent muscle atrophy and frozen joints. 3. Continue the current drug regimen. 4. No further W/U for increase in eosinophil % since he is asymptomatic and the absolute eosinophil count is less than 1,500. Charges/Coding Visit Charges Inpatient E&M: 40174 Subs Hosp L1
[2024-10-10 10:45] LABS: Absolute Lymphocyte Count 2.44 X10^3/uL (0.83-4.51); Absolute Neutrophil Count 6.9 X10^3/uL (2.0-7.7); Basophil# 0.08 X10^3/uL; Basophil% 0.7 % (0-1); Eosinophil# 1.11 X10^3/uL; Eosinophils% 9.6 % (0-5); Lymphocyte # 2.44 X10^3/ul (0.83-4.51); Lymphocyte % 21.1 % (19-41); Monocyte# 0.96 X10^3/uL; Monocyte% 8.3 % (0-10); NRBC Flagged by Analyzer 0 % (0-5); Neutrophil # 6.85 X10^3/uL (2.7-7.7); Neutrophil % 59.3 % (47-70)
[2024-10-10] MEDS: QUEtiapine 25 MG Tablet 37.5 MG PO (20:31)
[2024-10-10] MEDS: MELATONIN 3 MG TABLET PO (20:31)
[2024-10-10] MEDS: Atorvastatin Calcium 40 MG Tablet PO (20:31)
[2024-10-11] VITALS (9 sets, daily range): BP systolic 117–167; BP diastolic 54–81; PULSE 67–98; RESP 16–18; TEMP 36.6–37.2; O2SAT 94–96; BMI 27.7
[2024-10-11] MEDS: Menthol/Lanolin/Calamine/Znox 113 GM Tube 1 APPLIC TOPICAL ×2 (05:27→21:04)
[2024-10-11] MEDS: Nystatin Powder 15gm Bottle 1 APPLIC TOPICAL ×2 (05:28→21:05)
[2024-10-11] MEDS: traMADol 50 MG Tablet 25 MG PO ×3 (05:42→18:46)
[2024-10-11] MEDS: Acetaminophen 500 MG Tablet 1000 MG PO ×3 (05:42→21:00)
[2024-10-11] MEDS: Ipratropium/Albuterol Sulfate 3 ML AMPUL.NEB INHALATION ×4 (06:48→20:05)
[2024-10-11] MEDS: Senna/Docusate Sodium 1 Tablet PO (07:48)
[2024-10-11] MEDS: Pantoprazole Sodium 40 MG Tablet PO (07:48)
[2024-10-11] MEDS: Ergocalciferol 1.25 MG (50, 000 UNIT) Capsule PO (07:48)
[2024-10-11] MEDS: Cyanocobalamin 500 MCG Tablet PO (07:48)
[2024-10-11] MEDS: Clopidogrel Bisulfate 75 MG Tablet PO (07:48)
[2024-10-11] MEDS: Tamsulosin HCl 0.4 MG Capsule PO (07:49)
[2024-10-11] MEDS: Ensure Plus High Protein 120 ML LIQUID PO ×4 (07:49→21:08)
[2024-10-11] MEDS: Aspirin 81 MG TAB.CHEW PO (07:49)
[2024-10-11] MEDS: Heparin Injection (Vial) 5,000 UNIT/ML VIAL 5000 UNIT SC ×2 (07:49→21:00)
[2024-10-11] MEDS: Metoprolol Tartrate 25 MG Tablet PO ×2 (07:49→21:01)
[2024-10-11] MEDS: Lisinopril 10 MG Tablet PO (07:49)
--- NOTE | 2024-10-11 10:40 | CASEMGMT ---
Social Work SW received VM from dtr stating she is going out of town this weekend and to contact her brother, Jorge L, for any needs. SW returned call and left Vm, acknowledging dtr's call, but also updated that insurance approved with NRD 10/15, and at Team meeting, IDT will discuss the DC plans and prepare for setting DC date. IDT updated on contact. Natividad Falcon MSW CUSTOMS ENTRY WRITER
[2024-10-11] MEDS: MELATONIN 3 MG TABLET PO (21:00)
[2024-10-11] MEDS: Atorvastatin Calcium 40 MG Tablet PO (21:01)
[2024-10-11] MEDS: QUEtiapine 25 MG Tablet 37.5 MG PO (21:01)
[2024-10-12] VITALS (11 sets, daily range): BP systolic 105–152; BP diastolic 55–80; PULSE 69–100; RESP 16–18; TEMP 36.6–37.1; O2SAT 92–97; BMI 27.7
[2024-10-12] MEDS: traMADol 50 MG Tablet 25 MG PO ×3 (06:09→17:43)
[2024-10-12] MEDS: Menthol/Lanolin/Calamine/Znox 113 GM Tube 1 APPLIC TOPICAL ×2 (06:10→21:27)
[2024-10-12] MEDS: Nystatin Powder 15gm Bottle 1 APPLIC TOPICAL ×2 (06:10→21:29)
[2024-10-12] MEDS: Acetaminophen 500 MG Tablet 1000 MG PO ×3 (06:10→21:26)
[2024-10-12] MEDS: Heparin Injection (Vial) 5,000 UNIT/ML VIAL 5000 UNIT SC ×2 (10:12→21:21)
[2024-10-12] MEDS: Aspirin 81 MG TAB.CHEW PO (10:12)
[2024-10-12] MEDS: Tamsulosin HCl 0.4 MG Capsule PO (10:12)
[2024-10-12] MEDS: Pantoprazole Sodium 40 MG Tablet PO (10:13)
[2024-10-12] MEDS: Metoprolol Tartrate 25 MG Tablet PO ×2 (10:13→21:28)
[2024-10-12] MEDS: Cyanocobalamin 500 MCG Tablet PO (10:14)
[2024-10-12] MEDS: Clopidogrel Bisulfate 75 MG Tablet PO (10:14)
[2024-10-12] MEDS: Lisinopril 10 MG Tablet PO (10:14)
[2024-10-12] MEDS: Ensure Plus High Protein 120 ML LIQUID PO ×3 (10:16→21:22)
[2024-10-12] MEDS: Ipratropium/Albuterol Sulfate 3 ML AMPUL.NEB INHALATION ×3 (11:04→19:45)
[2024-10-12] MEDS: QUEtiapine 25 MG Tablet 37.5 MG PO (20:00)
[2024-10-12] MEDS: MELATONIN 3 MG TABLET PO (21:22)
[2024-10-12] MEDS: Senna/Docusate Sodium 1 Tablet PO (21:22)
[2024-10-12] MEDS: Atorvastatin Calcium 40 MG Tablet PO (21:22)
[2024-10-13] VITALS (8 sets, daily range): BP systolic 108–123; BP diastolic 58–70; PULSE 67–98; RESP 16–18; TEMP 36.4–36.7; O2SAT 92–95; BMI 27.7
--- NOTE | 2024-10-13 02:47 | NURSING ---
00:40- 2L O2 while sleeping. SpO2 -94%
[2024-10-13] MEDS: Acetaminophen 500 MG Tablet 1000 MG PO ×3 (06:29→21:20)
[2024-10-13] MEDS: traMADol 50 MG Tablet 25 MG PO ×3 (06:29→17:41)
[2024-10-13] MEDS: Nystatin Powder 15gm Bottle 1 APPLIC TOPICAL ×2 (06:30→21:30)
[2024-10-13] MEDS: Menthol/Lanolin/Calamine/Znox 113 GM Tube 1 APPLIC TOPICAL ×2 (06:31→21:30)
[2024-10-13] MEDS: Ensure Plus High Protein 120 ML LIQUID PO ×2 (08:58→21:22)
[2024-10-13] MEDS: Heparin Injection (Vial) 5,000 UNIT/ML VIAL 5000 UNIT SC ×2 (08:58→21:21)
[2024-10-13] MEDS: Metoprolol Tartrate 25 MG Tablet PO ×2 (08:59→21:20)
[2024-10-13] MEDS: Lisinopril 10 MG Tablet PO (08:59)
[2024-10-13] MEDS: Tamsulosin HCl 0.4 MG Capsule PO (08:59)
[2024-10-13] MEDS: Clopidogrel Bisulfate 75 MG Tablet PO (08:59)
[2024-10-13] MEDS: Cyanocobalamin 500 MCG Tablet PO (08:59)
[2024-10-13] MEDS: Pantoprazole Sodium 40 MG Tablet PO (09:02)
[2024-10-13] MEDS: Senna/Docusate Sodium 1 Tablet PO (09:03)
[2024-10-13] MEDS: Aspirin 81 MG TAB.CHEW PO (09:03)
[2024-10-13] MEDS: Ipratropium/Albuterol Sulfate 3 ML AMPUL.NEB INHALATION ×2 (15:44→19:50)
[2024-10-13] MEDS: QUEtiapine 25 MG Tablet 37.5 MG PO (21:21)
[2024-10-13] MEDS: MELATONIN 3 MG TABLET PO (21:21)
[2024-10-13] MEDS: Atorvastatin Calcium 40 MG Tablet PO (21:21)
[2024-10-13] MEDS: traZODone 50 MG Tablet 25 MG PO (23:01)
--- NOTE | 2024-10-13 23:19 | NURSING ---
Addendum entered by Emerald Cervantes 10/14/24 02:37: Patient's bed exit alarming, this nurse and RN responded. Patient found to be winding up oxygen tubing with oxygen off of his face. Patient 91% on room air at the time, nursing staff assisted patient with reapplying oxygen. Patient offered toileting, patient refused. Bladder scanned patient for 318mL, straight cathed per order due to inability to void. Cathed for 320mL of dark yellow urine. UA sent per protocol. Patient tolerated procedure well. Patient repositioned in bed, call light in reach, patient denies additional needs at this time. Addendum entered by Emerald Cervantes 10/14/24 01:38: Patient's bed exit alarming, this nurse and RN responded. Upon assessment patient attempting to reach something at the foot of the bed stating, I have paperwork I have to get to when asked what the patient was doing he stated, oh, just scrounging around, you know. This nurse reoriented the patient, patient repositioned in bed, call light in reach, denies additional needs at this time. Addendum entered by Emerald Cervantes 10/14/24 01:34: Patient attempting to get OOB, bed exit alarm sounded. Nursing staff responded to patient, patient stated he needed to get up to the bathroom. This nurse and RN assisted patient back into the bed and provided patient with urinal. Patient had red blood draining from tip of penis, patient voided 80mL of dark, rohan urine. María applied to tip of penis, nystatin to groin. Call light in reach, repositioned in bed, patient denies additional needs. Addendum entered by Emerald Cervantes 10/13/24 23:49: Patient set off bed alarm attempting to get OOB unassisted. Patient continues to ask where his is stating, I did not give her permission to go. Patient became agitated with staff when attempting to reorient. Nursing staff assisted patient with repositioning and changed patient's brief. Patient had a large episode of urinary incontinence. Call light in reach, patient denies additional needs at this time. Original Note: Staff overheard patient talking to self, upon evaluation patient was concerned where his and two grandchildren were. This nurse and RN attempted to reorient patient, unsuccessful. Offered toileting, patient refused. PRN trazodone given per order. Patient continues to talk to self. Repositioned patient in bed, call light in reach, patient denies additional needs at this time.
[2024-10-14] VITALS (10 sets, daily range): BP systolic 139–142; BP diastolic 68–71; PULSE 73–92; RESP 16–18; TEMP 36.7–37.6; O2SAT 92–95; BMI 27.7
--- NOTE | 2024-10-14 00:16 | NURSING ---
0015 O2 93% on 2L nasal cannula.
[2024-10-14 02:41] LABS: Bacteria 0 SEEN /hpf (None Seen); Mucous, Urine 0 SEEN /hpf (<or=2+); Squamous Epithelial Cells - UA 0 SEEN /hpf (0-5); White Blood Cells 0 SEEN /hpf (0-5)
[2024-10-14 02:51] LABS: Color, Urine Yellow (Yellow); Glucose, Dipstick Normal (Normal); Ketone-Dipstick Negative (Negative); Leukocyte Esterase-Dipstick Negative /ul (Negative); Nitrite-Dipstick Negative (Negative); Occult Blood-Urine 250 /ul (Negative); Protein-Dipstick Negative (Negative); Urine Bilirubin Dipstick Negative (Negative); Urine Clarity Clear (Clear); Urine Urobilinogen Normal (Normal); Urine pH 6.5 (5.0 - 8.0)
[2024-10-14 03:26] LABS: Red Blood Cells-Urine 10-25 SEEN /hpf (0-5)
[2024-10-14] MEDS: Acetaminophen 500 MG Tablet 1000 MG PO ×3 (06:07→21:43)
[2024-10-14] MEDS: traMADol 50 MG Tablet 25 MG PO ×3 (06:07→18:36)
[2024-10-14] MEDS: Nystatin Powder 15gm Bottle 1 APPLIC TOPICAL ×2 (06:08→21:42)
[2024-10-14] MEDS: Menthol/Lanolin/Calamine/Znox 113 GM Tube 1 APPLIC TOPICAL ×2 (06:08→21:50)
[2024-10-14] MEDS: Ipratropium/Albuterol Sulfate 3 ML AMPUL.NEB INHALATION ×3 (06:23→15:10)
[2024-10-14] MEDS: Aspirin 81 MG TAB.CHEW PO (08:05)
[2024-10-14] MEDS: Senna/Docusate Sodium 1 Tablet PO ×2 (08:06→21:43)
[2024-10-14] MEDS: Metoprolol Tartrate 25 MG Tablet PO ×2 (08:06→21:48)
[2024-10-14] MEDS: Pantoprazole Sodium 40 MG Tablet PO (08:06)
[2024-10-14] MEDS: Lisinopril 10 MG Tablet PO (08:07)
[2024-10-14] MEDS: Cyanocobalamin 500 MCG Tablet PO (08:07)
[2024-10-14] MEDS: Clopidogrel Bisulfate 75 MG Tablet PO (08:07)
[2024-10-14] MEDS: Tamsulosin HCl 0.4 MG Capsule PO (08:07)
[2024-10-14] MEDS: Heparin Injection (Vial) 5,000 UNIT/ML VIAL 5000 UNIT SC ×2 (08:07→21:42)
[2024-10-14] MEDS: Ensure Plus High Protein 120 ML LIQUID PO ×3 (08:15→21:49)
--- NOTE | 2024-10-14 09:07 | PCM.PROGNOTE ---
Subjective Subjective Michael was seen on TEAM rounds today. His dtr left a message with the SW Monday that she was leaving for vacation. His son Keagan participated via speaker phone today. He is unaware of all the issues with his father and the fact that 28/11 supervision is needed. He is unaware of the diagnosis of dementia. He knows his mother just got out of the hospital. Afebrile VSS -blood pressure is within goal. Heart rate is within normal limits. Maintaining appropriate oxygen saturation on RA Oral intake - FOOD good FLUIDS poor Discussed with nursing - Slept well on Monday and Monday nights and then last night was restless and confused. He received Trazodone which is ordered PRN but, nursing did not fell this was effective. He is known to . Had to have straight cath last night for a residual of 318. UA was sent and it showed. Microscopic hematuria with 10-25 RBCs per high-power field and no WBCs. There was no bacteria. Reviewed the THERAPY notes Medication list reviewed. BCAT repeated today and he scored 10 points higher (33/50 today). Cooperative with therapy. Sleep pattern is erratic. He sleeps well for a couple nights and then he is restless and awake for a night or 2. Pain is adequately controlled. Denies lightheadedness, CP, SOB, dysuria. Pleasant and cooperative with everyone during the day. Objective Data Objective Data Vital Signs: Vital Signs Temp Pulse Resp BP Pulse Ox O2 Del Method O2 Flow Rate 98.1 F 88 16 142/70 H 95 Nasal Cannula 2 10/14/24 06:08 10/14/24 08:06 10/14/24 06:23 10/14/24 06:08 10/14/24 06:23 10/14/24 06:23 10/14/24 06:23 FiO2 21 09/28/24 21:15 Oxygen Flow Rate (L/min) 2 Oxygen Delivery Method Nasal Cannula Weight: 141 lb 1.533 oz Body Mass Index (BMI) 27.7 Intake & Output: Intake and Output for Last 24 Hours 10/12/24 10/13/24 10/14/24 23:59 23:59 23:59 Intake Total 1020 / 1020 960 / 1040 670 / 670 Output Total 755 / 755 750 / 750 600 / 600 Balance 265 / 265 210 / 290 70 / 70 Lab / Micro Data 10/10/24 05:41 10/10/24 05:41 Labs: Laboratory Results - last 24 hr 10/14/24 02:25: Urine Color Yellow, Urine Clarity Clear, Urine pH 6.5, Ur Specific Pratt 1.010, Urine Protein Negative, Urine Glucose (UA) Normal, Urine Ketones Negative, Urine Occult Blood 250 H, Urine Nitrite Negative, Urine Bilirubin Negative, Urine Urobilinogen Normal, Ur Leukocyte Esterase Negative, Urine RBC 10-25 SEEN, Urine WBC 0 SEEN, Ur Squamous Epith Cells 0 SEEN, Urine Bacteria 0 SEEN, Urine Mucus 0 SEEN Micro: Microbiology 09/29/24 09:12 Exudate Gram Stain - Final 09/29/24 09:12 Exudate Wound Culture - Final Staphylococcus aureus 09/30/24 04:43 Stool Stool Occult Blood (JOVANI) - Final Occult Blood Positive Physical Exam Const alert and no apparent distress Constitutional Narrative: No grmiacing with sit to stands today. Appears to be tolerating therapy well with no balking do to pain. General Appearance: cooperative Eyes Eyes Narrative: No Dc from the eyes. No swelling of the lid margins and the redness has resolved with treatment for MSSA conjunctivitis. Resp normal respiratory effort Resp Narrative: Persistent crackles in the Left base........suspect this is due to scarring. No wheezing. Effort and Inspection: Negative for tachypneic, respiratory distress or labored Cardio regular rate, regular rhythm and no gallops GI normal to inspection, nondistended, normoactive bowel sounds and soft to palpation GI Narrative: No guarding with palpation. Extremity no calf tenderness General Extremity: Negative for edema Assessment & Plan Assessment/Plan (1) Debility: (2) Acute ischemic right MCA stroke: (3) Left leg weakness: (4) Facial droop: (5) Cognitive dysfunction: (6) Paresthesias: (7) Inferior pubic ramus fracture: QUALIFIERS: Encounter type: initial encounter Fracture type: closed Laterality: left Qualified Code(s): S32.592A - Other specified fracture of left pubis, initial encounter for closed fracture (8) Pain aggravated by physical activity: (9) Hypophosphatemia: (10) GERD (gastroesophageal reflux disease): QUALIFIERS: Esophagitis presence: without esophagitis Qualified Code(s): K21.9 - Gastro-esophageal reflux disease without esophagitis (11) Esophageal stenosis: (12) History of esophageal dilatation: (13) Dyslipidemia: (14) BPH (benign prostatic hyperplasia): QUALIFIERS: Lower urinary tract symptom presence: unspecified whether lower urinary tract symptoms present Qualified Code(s): N40.0 - Benign prostatic hyperplasia without lower urinary tract symptoms (15) Essential (primary) hypertension: (16) Hypoxemia associated with sleep: (17) Acute bronchitis: QUALIFIERS: Bronchitis organism: unspecified organism Qualified Code(s): J20.9 - Acute bronchitis, unspecified (18) Conjunctivitis: QUALIFIERS: Conjunctivitis type: acute Acute conjunctivitis type: bacterial Laterality: left Qualified Code(s): H10.32 - Unspecified acute conjunctivitis, left eye (19) Dementia with behavioral disturbance: (20) Productive cough: (21) Oropharyngeal dysphagia: (22) Aspiration into trachea: (23) Eosinophilia, unspecified: QUALIFIERS: Eosinophilia type: unspecified eosinophilia Qualified Code(s): D72.10 - Eosinophilia, unspecified (24) Microscopic hematuria: PLAN: Plan 1. Continue therapy 2. Add Aricept to the current drug regimen. 3. Decrease the Seroquel to 25 mg Q HS. 4. EKG today to check the QT interval. QT is 412 so not prolonged. Will recheck an EKG in a few days since he will be taking 215 mg of Seroquel and Aricept 5 mg Q HS 5. follow up with neurology post discharge. I spoke to Keagan after the TEAM meeting. We can not wait for Amy to get back from vacation to make a decision about where he will go at DC from rehab. I think that he will need assisted living.....both he and his . I recommended Amy Jose and Keagan talk and make a decision about the plan for DC. If there is not plan for 24H/7D supervision will need to call APS. Keagan later spoke to ALEC on the phone and she is giving him info on assisted living facilities and telling him what to do.......this was all given to Amy last week. Charges/Coding Visit Charges Inpatient E&M: 65654 Subs Hosp L2
--- NOTE | 2024-10-14 11:09 | EKG12_ITS ---
Test Reason : EX Blood Pressure : */* mmHG Vent. Rate : 72 BPM Atrial Rate : 72 BPM P-R Int : 198 ms QRS Dur : 110 ms QT Int : 412 ms P-R-T Axes : 66 -38 70 degrees QTcB Int : 451 ms Normal sinus rhythm Left axis deviation Incomplete right bundle branch block Abnormal ECG When compared with ECG of 01-Oct-2024 11:27, No significant change was found Confirmed by Juan C Guthrie ([id number]), associate entertainment editor CARON DYER ([id number]) on 10/15/2024 11:06:40 AM Referred By: Amy Gaxiola Confirmed By: Juan C Guthrie
--- NOTE | 2024-10-14 11:28 | NURSING ---
CALLED R.T. FOR NEW ORDER FOR EKG.
--- NOTE | 2024-10-14 13:25 | CASEMGMT ---
Social Work SW met with patient at bedside, then son Keagan, via conference call for Team meeting. Discussed patient's progress in PT/OT/ST/SN. Educated to [facility] insurance with NRD 10/15 and continued stay is not guaranteed with each review. ALEC explained IDT is ready to set a DC date for pt and inquired about DC plan. Son stated his sister is on vacation and is the one making decisions, and sister returns on 10/21. ALEC explained the DC plan cannot be postponed until that time. stated sister is overwhelmed and needs assistance making decisions. Dr is recommending AL as pt has advanced Dementia and cannot care for pt at home. SW to provide list of ALs, and place referrals, then assist with setting DC date. Son expressed understanding and provided email address for AL list to be sent. ALEC will continue to follow for DC planning. Natividad Falcon PHONE TECHNICIAN CAMERA TECHNICIAN
[2024-10-14] MEDS: QUEtiapine 25 MG Tablet PO (21:41)
[2024-10-14] MEDS: Donepezil HCl 5 MG Tablet PO (21:41)
[2024-10-14] MEDS: MELATONIN 3 MG TABLET PO (21:42)
[2024-10-14] MEDS: Atorvastatin Calcium 40 MG Tablet PO (21:42)
[2024-10-15] VITALS (8 sets, daily range): BP systolic 140–142; BP diastolic 69–81; PULSE 64–83; RESP 16–18; TEMP 37.1–37.2; O2SAT 93–96; BMI 27.7
[2024-10-15] MEDS: Acetaminophen 500 MG Tablet 1000 MG PO ×2 (05:14→14:45)
[2024-10-15] MEDS: Menthol/Lanolin/Calamine/Znox 113 GM Tube 1 APPLIC TOPICAL ×2 (05:16→21:12)
[2024-10-15] MEDS: Nystatin Powder 15gm Bottle 1 APPLIC TOPICAL ×2 (05:17→21:13)
[2024-10-15] MEDS: traMADol 50 MG Tablet 25 MG PO ×3 (06:14→17:33)
[2024-10-15] MEDS: Tamsulosin HCl 0.4 MG Capsule PO (08:02)
[2024-10-15] MEDS: Lisinopril 10 MG Tablet PO (08:02)
[2024-10-15] MEDS: Senna/Docusate Sodium 1 Tablet PO ×2 (08:02→21:11)
[2024-10-15] MEDS: Heparin Injection (Vial) 5,000 UNIT/ML VIAL 5000 UNIT SC ×2 (08:03→21:11)
[2024-10-15] MEDS: Aspirin 81 MG TAB.CHEW PO (08:03)
[2024-10-15] MEDS: Pantoprazole Sodium 40 MG Tablet PO (08:03)
[2024-10-15] MEDS: Clopidogrel Bisulfate 75 MG Tablet PO (08:03)
[2024-10-15] MEDS: Metoprolol Tartrate 25 MG Tablet PO ×2 (08:03→21:12)
[2024-10-15] MEDS: Cyanocobalamin 500 MCG Tablet PO (08:03)
[2024-10-15] MEDS: Ensure Plus High Protein 120 ML LIQUID PO ×4 (08:03→21:12)
[2024-10-15] MEDS: Ipratropium/Albuterol Sulfate 3 ML AMPUL.NEB INHALATION (11:17)
--- NOTE | 2024-10-15 12:32 | CASEMGMT ---
Social Work SW received call from son, Jorge L, inquiring about DC plans and information. Son asked questions about recommendations for 24/7 care, private pay for resources/AL/SNF, Medicaid eligibility. SW reexplained information previously provided to siblings. Explained recommendations are 24/7 care not involving pt's , and caregivers are OOP cost; AL is OOP cost and does not spend down to [facility]; SNF is OOP cost and/or Medicaid. Explained the recommendation is not to change environments for patients, thus, if pt will not have the funds to pay OOP at an AL, to begin with SNF placement. Explained extensively the Medicaid eligibility process and how that impacts the pt's still living in the community. Son requested resources for all options and provided email. SW sent resources for nonskilled HHC, AL and Medicaid checklist to obtain financial information via email. Emailed list of SNFs in preferred geographical area, INN with pt?s insurance, including quality and resource data via [employer] link. SW explained the insurance update is today, and unsure if insurance will approve continued stay; if not, pt may have to DC as early as tomorrow. Son inquired about ability to transfer pt to a facility within that timeframe. SW explained it is more likely to a SNF, than AL, as ALs typically do not come furnished, unless there is a respite room available. Son agreed to review resources and notify SW of DC plan. SW will continue to follow. Natividad Falcon MSW BIRDCAGE ASSEMBLER
--- NOTE | 2024-10-15 15:13 | PN_ITS ---
Subjective Subjective Had a temp of 99.7 last night and that was while getting acetaminophen 1 g p.o. every 8 hours. VSS -blood pressure is pretty much at goal. Heart rate is within normal limits. Maintaining appropriate oxygen saturation on RA Oral intake - FOOD good FLUIDS fair....... at 1260 in yesterday. Needs frequent reminders to increase his fluid intake. Incontinent of urine - large amounts. Discussed with nursing - no problems that need addressed....no issues per night nursing last night. Reviewed the THERAPY notes Medication list reviewed. Denies sore throat, rhinorrhea, headache, chest pain, nausea/vomiting/abdominal pain and calf pain. When I asked if he had burning with urination he says a little. He had a straight catheterization yesterday for a postvoid residual of 320. Has been incontinent of urine but this has been since admission. Occasional cough, nothing out of the ordinary. Objective Data Objective Data Vital Signs: Vital Signs Temp Pulse Resp BP Pulse Ox O2 Del Method O2 Flow Rate 98.8 F 64 16 142/69 H 93 Room Air 2 10/15/24 05:18 10/15/24 11:17 10/15/24 11:17 10/15/24 05:18 10/15/24 11:17 10/15/24 11:17 10/15/24 00:34 FiO2 21 09/28/24 21:15 Oxygen Flow Rate (L/min) 2 Oxygen Delivery Method Room Air Weight: 141 lb 1.533 oz Body Mass Index (BMI) 27.7 Intake & Output: Intake and Output for Last 24 Hours 10/13/24 10/14/24 10/15/24 23:59 23:59 23:59 Intake Total 960 / 1040 1260 / 1260 950 / 950 Output Total 750 / 750 600 / 600 250 / 250 Balance 210 / 290 660 / 660 700 / 700 Lab / Micro Data 10/10/24 05:41 10/10/24 05:41 Micro: Microbiology 09/29/24 09:12 Exudate Gram Stain - Final 09/29/24 09:12 Exudate Wound Culture - Final Staphylococcus aureus 09/30/24 04:43 Stool Stool Occult Blood (JOVANI) - Final Occult Blood Positive Physical Exam Const alert and no apparent distress Constitutional Narrative: Impulsive and trying to get out of bed by himself without calling for assistance. Lying flat in bed when I entered his room and appeared comfortable with no SOB and no conversatinal dyspnea. Pleasant with me. General Appearance: cooperative and well kempt HEENT head/scalp atraumatic Eyes PERRL, EOMs intact bilaterally and no scleral icterus Eyes Narrative: No Dc from the eyes. No swelling of the lid margins and the redness has resolved with treatment for MSSA conjunctivitis. Neck No nodes and no carotid bruits General: trachea midline Chest Chest: symmetrical chest wall rise Resp normal respiratory effort Resp Narrative: diminished throughout. Persistent coarse crackles in the L base.....chronic since admission. No wheezing. Not tachypneic. No conversational dyspnea. Effort and Inspection: able to speak in complete sentences; Negative for tachypneic, respiratory distress or labored Cardio regular rate, regular rhythm and no gallops Cardio Narrative: No ectopy today. GI normal to inspection, nondistended, normoactive bowel sounds, soft to palpation and non-tender GI Narrative: Bladder feels a little distended. no CVA tenderness Extremity no calf tenderness General Extremity: Negative for edema Skin no jaundice Skin Narrative: Dry skin Rashes: no rashes Wound Narrative: Small split in the skin over the distal coccyx.......will continue Calmoseptine. Hair: male pattern alopecia Neuro Neuro Narrative: Right facial droop, tongue protrudes on the midline, mild dysarthria. No visual field cuts, pupils are equal round and reactive to light and accommodation, extraocular muscles are intact. Decreased hearing. 5/5 strength in both upper extremities. He is right-hand dominant. The left leg fell to the bed prior to 5 seconds. No ataxia in the upper extremities. Could not adequately check for ataxia in the left lower extremity due to weakness of the left lower extremity. Decreased sensation in the left arm and left leg. No extinction. No aphasia. I did not ambulate him. Psych cooperative, denies hallucinations and denies suicidal ideation Psych Narrative: Impulsive at night. During the day he is using his call light. Has been very cooperative with everyone and always pleasant with no agitation since the Seroquel was added to the drug regimen. sleeping well at night now. Appearance: grossly normal, appropriate and well kempt Attitude: calm and engaged Activity / Motor Behavior: appropriate eye contact; Negative for psychomotor agitation, psychomotor slowing or fidgetting Speech: normal speech Assessment & Plan Assessment/Plan (1) Debility: (2) Acute ischemic right MCA stroke: (3) Left leg weakness: (4) Facial droop: (5) Cognitive dysfunction: (6) Inferior pubic ramus fracture: QUALIFIERS: Encounter type: initial encounter Fracture type: c losed Laterality: left Qualified Code(s): S32.592A - Other specified fracture of left pubis, initial encounter for closed fracture (7) Pain aggravated by physical activity: (8) Essential (primary) hypertension: (9) Hypoxemia associated with sleep: (10) Dementia with behavioral disturbance: (11) Oropharyngeal dysphagia: (12) Aspiration into trachea: (13) Eosinophilia, unspecified: QUALIFIERS: Eosinophilia type: unspecified eosinophilia Qualified Code(s): D72.10 - Eosinophilia, unspecified (14) Fever: PLAN: UA yesterday only showed microscopic hematuria but, he had a straight cath and bacteria could have been introduced. Will recheck today for pyuria. will also get a PA and LAT CXR. (15) Microscopic hematuria: (16) Urinary retention: PLAN: Will order 3 more PVR's........ he is incontinent so will try and bladder scan when he is wet when they scan him PLAN: Plan 1. Continue therapy 2. Check 3 more postvoid residuals. Straight cath for UA today since he did tell me that he has burning with urination and was straight cath'd yesterday. 3. PA and lateral CXR. 4. BMP and CBC with diff in the AM. 5. hold Tylenol. Charges/Coding Visit Charges Inpatient E&M: 58814 Subs Hosp L1
--- NOTE | 2024-10-15 15:30 | RAD_ITS ---
PROCEDURE: CHEST PA AND LATERAL 10/15/2024 REASON FOR EXAM: FEVER/COUGH TECHNIQUE: Frontal and lateral views of the chest. COMPARISON: 09/28/2024 FINDINGS: Mild pulmonary vascular congestion. No focal consolidations. Trace left base effusion. No significant right base effusion. No pneumothorax. Calcified aortic arch. Cardiac silhouette is unchanged. RAD/Chest PA and Lateral IMPRESSION: Mild pulmonary vascular congestion. No focal consolidations. Trace left base e ffusion. Reading Location: [id number]
[2024-10-15 16:24] LABS: Bacteria 0 SEEN /hpf (None Seen); Mucous, Urine 0 SEEN /hpf (<or=2+); Squamous Epithelial Cells - UA 0 SEEN /hpf (0-5)
[2024-10-15 17:15] LABS: Color, Urine Yellow (Yellow); Glucose, Dipstick Normal (Normal); Ketone-Dipstick Negative (Negative); Leukocyte Esterase-Dipstick 25 /ul (Negative); Nitrite-Dipstick Negative (Negative); Occult Blood-Urine Negative /ul (Negative); Protein-Dipstick 15 mg/dl (Negative); Urine Bilirubin Dipstick Negative (Negative); Urine Clarity Clear (Clear); Urine Urobilinogen Normal (Normal); Urine pH 6.5 (5.0 - 8.0)
[2024-10-15 17:47] LABS: Red Blood Cells-Urine 0-5 SEEN /hpf (0-5); White Blood Cells 0-5 SEEN /hpf (0-5)
[2024-10-15] MEDS: Atorvastatin Calcium 40 MG Tablet PO (21:11)
[2024-10-15] MEDS: QUEtiapine 25 MG Tablet PO (21:11)
[2024-10-15] MEDS: MELATONIN 3 MG TABLET PO (21:11)
[2024-10-15] MEDS: Donepezil HCl 5 MG Tablet PO (21:11)
[2024-10-16 01:12] VITALS: PULSE 81; RESP 17; O2SAT 96
[2024-10-16 06:00] VITALS: BP 134/79; PULSE 79; RESP 16; TEMP 36.8; O2SAT 99; BMI 27.3
[2024-10-16] MEDS: traMADol 50 MG Tablet 25 MG PO ×3 (06:07→17:31)
[2024-10-16] MEDS: Menthol/Lanolin/Calamine/Znox 113 GM Tube 1 APPLIC TOPICAL ×3 (06:07→20:23)
[2024-10-16] MEDS: Nystatin Powder 15gm Bottle 1 APPLIC TOPICAL ×2 (06:08→20:24)
[2024-10-16 06:51] LABS: Absolute Lymphocyte Count 1.91 X10^3/uL (0.83-4.51); Absolute Neutrophil Count 5.3 X10^3/uL (2.0-7.7); Basophil# 0.07 X10^3/uL; Basophil% 0.7 % (0-1); Eosinophil# 1.15 X10^3/uL; Hematocrit 37.5 % (40-54); Hemoglobin 12.3 g/dL (13.0-16.5); Lymphocyte # 1.91 X10^3/ul (0.83-4.51); Mean Corp Hgb Conc 32.8 g/dL (32-36); Mean Corpuscular Hgb 30.1 pg (27.0-32.0); Mean Corpuscular Volume 91.7 fL (80-94); Monocyte# 1.11 X10^3/uL; Monocyte% 11.6 % (0-10); NRBC Flagged by Analyzer 0 % (0-5); Neutrophil # 5.29 X10^3/uL (2.7-7.7); Neutrophil % 55.3 % (47-70); Platelet Count 319 K/mm3 (150-450); RBC Distribution Width CV 14.8 % (11.6-14.6); RBC Distribution Width SD 49.9 fl (35.1-43.9); Red Blood Count 4.09 M/mm3 (4.6-6.2); White Blood Count 9.6 K/mm3 (4.4-11.0)
[2024-10-16 07:16] LABS: Anion Gap 9 (5-15); BUN 23 mg/dL (4-19); BUN/Creat Ratio 21.9 RATIO (10-20); Calcium,Total 9.2 mg/dL (7.6-11.0); Carbon Dioxide 26.8 mmol/L (21.0-32.0); Chloride 104 mmol/L (98-108); Creatinine, Serum 1.05 mg/dL (0.70-1.20); EST Glomerular Filtration Rate 68 (>60); Estimated Creatinine Clearance 38.24 ml/min (50-250); Glucose 93 mg/dL (70-99); Pro- Brain NATRIURETIC PEPTIDE 342 pg/mL (<=1800); Sodium Level 140 mmol/L (133-145)
[2024-10-16 08:07] VITALS: PULSE 79
[2024-10-16] MEDS: Pantoprazole Sodium 40 MG Tablet PO (08:07)
[2024-10-16] MEDS: Clopidogrel Bisulfate 75 MG Tablet PO (08:07)
[2024-10-16] MEDS: Cyanocobalamin 500 MCG Tablet PO (08:07)
[2024-10-16] MEDS: Tamsulosin HCl 0.4 MG Capsule PO (08:07)
[2024-10-16] MEDS: Metoprolol Tartrate 25 MG Tablet PO ×2 (08:07→20:21)
[2024-10-16] MEDS: Aspirin 81 MG TAB.CHEW PO (08:07)
[2024-10-16] MEDS: Lisinopril 10 MG Tablet PO (08:08)
[2024-10-16] MEDS: Heparin Injection (Vial) 5,000 UNIT/ML VIAL 5000 UNIT SC ×2 (08:08→20:23)
[2024-10-16] MEDS: Ensure Plus High Protein 120 ML LIQUID PO ×2 (08:08→17:33)
[2024-10-16] MEDS: Senna/Docusate Sodium 1 Tablet PO ×2 (08:08→20:20)
--- NOTE | 2024-10-16 08:37 | CASEMGMT ---
Addendum entered by Natividad Falcon 10/16/24 15:37: [facility] can accept and can take K[facility]IN pending number. [facility] has not provided response. SW sent follow up message. SW sent updated email to son and inquired additionally about finances. Original Note: Social Work SW received email from son, Jorge L, with requests for referrals to [facility] and [facility]. Son is speaking with pt's on finances today to determine if KORIN will be needed. SW to place referrals and informed son that insurance approved with NRD 10/18. - [facility]. Natividad Falcon CONCEPTOR MIRROR INSPECTOR
--- NOTE | 2024-10-16 10:57 | PCM.PROGNOTE ---
Subjective Subjective Afebrile-acetaminophen was placed on hold yesterday and he has had no fever for 36 hours. He only had a fever x 1 with no recurrence. VSS -blood pressure is within goal and heart rate is within normal limits. Maintaining appropriate oxygen saturation on RA Oral intake - FOOD good FLUIDS he took 2200 cc yesterday...... does better when we are offering him fluids. Urine output is not accurate secondary to incontinence. Discussed with nursing - slept poorly the last couple nights.....the Seroquel dose was decreased when we added the Aricept. Nursing commented that he was edgy and Grumpy last night,,,,,,,this is not like him. he was very pleasant all day yesterday. Reviewed the THERAPY notes Medication list reviewed. All lab from this morning was personally reviewed. The white blood cell count is normal at 9.6. Eosinophils are 12%. Neutrophils are normal. No left shift. No rash, no pruritus, no wheezing. The absolute eosinophil count is 1152 which is unremarkable. Repeat UA yesterday showed 0-5 RBCs and 0-5 WBCs with no bacteria. It was nitrite negative.. The BUN is 23 with a creatinine of 1.05 which is within his baseline. BNP is 342 which is not consistent with congestive heart failure. I suspect the increased interstitial markings on the chest x-ray are chronic and possibly secondary to interstitial lung disease. Tells me his pain is well-controlled. Sleeping better at night since the Seroquel was increased to 50 mg. Remains impulsive with poor safety awareness. Gets out of bed and up from the chair without calling for assistance. Objective Data Objective Data Vital Signs: Vital Signs Temp Pulse Resp BP Pulse Ox O2 Del Method O2 Flow Rate 98.3 F 79 16 134/79 H 99 Nasal Cannula 2 10/16/24 06:00 10/16/24 08:07 10/16/24 06:00 10/16/24 06:00 10/16/24 06:00 10/16/24 06:00 10/16/24 06:00 FiO2 21 09/28/24 21:15 Oxygen Flow Rate (L/min) 2 Oxygen Delivery Method Nasal Cannula Weight: 139 lb 8 oz Body Mass Index (BMI) 27.3 Intake & Output: Intake and Output for Last 24 Hours 10/14/24 10/15/24 10/16/24 23:59 23:59 23:59 Intake Total 1260 / 1260 2200 / 2200 120 / 120 Output Total 600 / 600 450 / 525 400 / 400 Balance 660 / 660 1750 / 1675 -280 / -280 Lab / Micro Data 10/16/24 06:41 10/16/24 06:41 Labs: Laboratory Results - last 24 hr 10/15/24 15:50: Urine Color Yellow, Urine Clarity Clear, Urine pH 6.5, Ur Specific [place] 1.010, Urine Protein 15 H, Urine Glucose (UA) Normal, Urine Ketones Negative, Urine Occult Blood Negative, Urine Nitrite Negative, Urine Bilirubin Negative, Urine Urobilinogen Normal, Ur Leukocyte Esterase 25 H, Urine RBC 0-5 SEEN, Urine WBC 0-5 SEEN, Ur Squamous Epith Cells 0 SEEN, Urine Bacteria 0 SEEN, Urine Mucus 0 SEEN 10/16/24 06:41: WBC 9.6, RBC 4.09 L, Hgb 12.3 L, Hct 37.5 L, MCV 91.7, MCH 30.1, MCHC 32.8, RDW Std Deviation 49.9 H, RDW Coeff of [place] 14.8 H, Plt Count 319, MPV 10.0, Immature Gran % (Auto) 0.400, Neut % (Auto) 55.3, Lymph % (Auto) 20.0, Carbon % (Auto) 11.6 H, Eos % (Auto) 12.0 H, Baso % (Auto) 0.7, Absolute Neuts (auto) 5.3, Absolute Lymphs (auto) 1.91, Nucleated RBC % 0, Sodium 140, Potassium 4.0, Chloride 104, Carbon Dioxide 26.8, Anion Gap 9, BUN 23 H, Creatinine 1.05, Estim Creat Clear Calc 38.24 L, Est GFR (MDRD) Non-Af 68, BUN/Creatinine Ratio 21.9 H, Glucose 93, Calcium 9.2, NT pro BNP II 342 Micro: Microbiology 09/29/24 09:12 Exudate Gram Stain - Final 09/29/24 09:12 Exudate Wound Culture - Final Staphylococcus aureus 09/30/24 04:43 Stool Stool Occult Blood (JOVANI) - Final Occult Blood Positive Radiography Diagnostic Testing: Radiology Impression Chest X-Ray 10/15/24 15:30 IMPRESSION: Mild pulmonary vascular congestion. No focal consolidations. Trace left base effusion. Reading Location: [facility] Physical Exam Const alert and no apparent distress Constitutional Narrative: Impulsive with poor safety awareness General Appearance: cooperative and well kempt Resp normal respiratory effort Resp Narrative: diminished throughout. Persistent coarse crackles in the L base.....chronic since admission. No wheezing. Not tachypneic. No conversational dyspnea. Effort and Inspection: able to speak in complete sentences; Negative for tachypneic Cardio regular rate, regular rhythm and no gallops Cardio Narrative: No ectopy today. GI normal to inspection, nondistended, normoactive bowel sounds, soft to palpation and non-tender GI Narrative: Bladder feels a little distended. Extremity no calf tenderness General Extremity: Negative for edema Assessment & Plan Assessment/Plan (1) Debility: (2) Acute ischemic right MCA stroke: (3) Left leg weakness: (4) Facial droop: (5) Cognitive dysfunction: (6) Inferior pubic ramus fracture: QUALIFIERS: Encounter type: initial encounter Fracture type: closed Laterality: left Qualified Code(s): S32.592A - Other specified fracture of left pubis, initial encounter for closed fracture (7) Pain aggravated by physical activity: (8) Essential (primary) hypertension: (9) Hypoxemia associated with sleep: (10) Dementia with behavioral disturbance: (11) Oropharyngeal dysphagia: (12) Aspiration into trachea: (13) Eosinophilia, unspecified: QUALIFIERS: Eosinophilia type: unspecified eosinophilia Qualified Code(s): D72.10 - Eosinophilia, unspecified PLAN: Plan 1. Continue therapy 2. DC Aricept and increase the Seroquel to 50 mg Q HS. 3. Recheck a EKG in a few days. 4. Continue DC planning. Home vs a facility. If home will need 24/7 supervision. Dtr is POA and she is not in town. she is on vacation and will return on Monday. Need a decision on destination at DC. 5. 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 Charges/Coding Visit Charges Inpatient E&M: 02232 Subs Hosp L1
[2024-10-16 13:55] VITALS: BMI 27.3
[2024-10-16 17:41] VITALS: BP 115/67; PULSE 77; RESP 12; TEMP 37.1; O2SAT 96
[2024-10-16] MEDS: Atorvastatin Calcium 40 MG Tablet PO (20:20)
[2024-10-16 20:21] VITALS: BP 127/63; PULSE 81
[2024-10-16] MEDS: MELATONIN 3 MG TABLET PO (20:21)
[2024-10-16] MEDS: QUEtiapine 25 MG Tablet 50 MG PO (20:21)
[2024-10-17] VITALS: PULSE 76; O2SAT 95
[2024-10-17 05:00] VITALS: BMI 27.3
[2024-10-17] MEDS: traMADol 50 MG Tablet 25 MG PO ×3 (05:16→17:38)
[2024-10-17] MEDS: Nystatin Powder 15gm Bottle 1 APPLIC TOPICAL ×2 (05:21→20:59)
[2024-10-17 06:00] VITALS: BP 138/66; PULSE 90; RESP 16; TEMP 36.4; O2SAT 104
[2024-10-17 06:57] VITALS: O2SAT 94
[2024-10-17 09:03] VITALS: PULSE 90
[2024-10-17] MEDS: Clopidogrel Bisulfate 75 MG Tablet PO (09:03)
[2024-10-17] MEDS: Cyanocobalamin 500 MCG Tablet PO (09:03)
[2024-10-17] MEDS: Pantoprazole Sodium 40 MG Tablet PO (09:03)
[2024-10-17] MEDS: Metoprolol Tartrate 25 MG Tablet PO ×2 (09:03→21:03)
[2024-10-17] MEDS: Aspirin 81 MG TAB.CHEW PO (09:04)
[2024-10-17] MEDS: Tamsulosin HCl 0.4 MG Capsule PO (09:04)
[2024-10-17] MEDS: Heparin Injection (Vial) 5,000 UNIT/ML VIAL 5000 UNIT SC ×2 (09:04→20:59)
[2024-10-17] MEDS: Ensure Plus High Protein 120 ML LIQUID PO ×3 (09:04→20:59)
[2024-10-17] MEDS: Senna/Docusate Sodium 1 Tablet PO ×2 (09:04→20:59)
[2024-10-17] MEDS: Lisinopril 10 MG Tablet PO (09:04)
--- NOTE | 2024-10-17 09:05 | CASEMGMT ---
Social Work SW received email from son with financial information and pt is over resources and can pay privately for several months. SW explained this to the son. Son asked additional questions with what insurance will cover at a SNF. SW reexplained the precert process, part B therapies and discussed differences between INN and OON SNFs. SW sent third message to [facility] requesting an outcome. SW followed up with [employer] to notify of private pay status, if precert is denied - which is anticipatory- and clarified INN/ONN. [facility] stated they are OON with insurance. SW requested the Center obtains OON benefits since pt will be LTC, this worker does not want pt to pay additional costs. SW offered to send [facility] list of additional geographical areas. Son agreed. SW sent [facility] and [facility] SNFs, which is a limited number of facilities. SW to notify son of OON benefits, once known. Answered additional questions for son. Ongoing email exchanges. Natividad Falcon TEACHER BIOMETRICS EXPERIMENTALIST
[2024-10-17 15:34] VITALS: BMI 27.3
[2024-10-17 18:00] VITALS: BP 122/57; PULSE 79; RESP 16; TEMP 37.1; O2SAT 97
[2024-10-17] MEDS: Menthol/Lanolin/Calamine/Znox 113 GM Tube 1 APPLIC TOPICAL (20:58)
[2024-10-17] MEDS: MELATONIN 3 MG TABLET PO (20:59)
[2024-10-17] MEDS: QUEtiapine 25 MG Tablet 50 MG PO (20:59)
[2024-10-17] MEDS: Atorvastatin Calcium 40 MG Tablet PO (20:59)
[2024-10-17 21:03] VITALS: BP 118/65; PULSE 78
[2024-10-18] VITALS: PULSE 74; O2SAT 94
[2024-10-18] MEDS: Menthol/Lanolin/Calamine/Znox 113 GM Tube 1 APPLIC TOPICAL ×2 (04:45→21:30)
[2024-10-18] MEDS: Nystatin Powder 15gm Bottle 1 APPLIC TOPICAL ×2 (04:45→21:31)
[2024-10-18] MEDS: traMADol 50 MG Tablet 25 MG PO ×3 (05:12→17:53)
[2024-10-18 05:55] VITALS: BP 141/66; PULSE 79; RESP 18; TEMP 37.1; O2SAT 94
[2024-10-18] MEDS: Senna/Docusate Sodium 1 Tablet PO ×2 (07:59→21:26)
[2024-10-18] MEDS: Cyanocobalamin 500 MCG Tablet PO (07:59)
[2024-10-18 08:00] VITALS: PULSE 79
[2024-10-18] MEDS: Ensure Plus High Protein 120 ML LIQUID PO ×3 (08:00→21:29)
[2024-10-18] MEDS: Clopidogrel Bisulfate 75 MG Tablet PO (08:00)
[2024-10-18] MEDS: Aspirin 81 MG TAB.CHEW PO (08:00)
[2024-10-18] MEDS: Tamsulosin HCl 0.4 MG Capsule PO (08:00)
[2024-10-18] MEDS: Pantoprazole Sodium 40 MG Tablet PO (08:00)
[2024-10-18] MEDS: Lisinopril 10 MG Tablet PO (08:00)
[2024-10-18] MEDS: Ergocalciferol 1.25 MG (50, 000 UNIT) Capsule PO (08:00)
[2024-10-18] MEDS: Metoprolol Tartrate 25 MG Tablet PO ×2 (08:00→21:27)
[2024-10-18] MEDS: Heparin Injection (Vial) 5,000 UNIT/ML VIAL 5000 UNIT SC ×2 (08:00→21:28)
[2024-10-18 20:41] VITALS: BMI 27.3
[2024-10-18 21:22] VITALS: BP 125/66; PULSE 79; RESP 16; TEMP 36.6; O2SAT 93
[2024-10-18] MEDS: Atorvastatin Calcium 40 MG Tablet PO (21:26)
[2024-10-18] MEDS: MELATONIN 3 MG TABLET PO (21:26)
[2024-10-18 21:27] VITALS: BP 125/66; PULSE 79
[2024-10-18] MEDS: QUEtiapine 25 MG Tablet 50 MG PO (21:30)
--- NOTE | 2024-10-19 00:05 | NURSING ---
SpO2 @ 2L while sleeping. SpO2 level at 00:05- 94% on wL.
[2024-10-19] MEDS: Nystatin Powder 15gm Bottle 1 APPLIC TOPICAL ×2 (05:27→21:01)
[2024-10-19] MEDS: Menthol/Lanolin/Calamine/Znox 113 GM Tube 1 APPLIC TOPICAL ×2 (05:28→21:02)
[2024-10-19] MEDS: traMADol 50 MG Tablet 25 MG PO ×3 (05:29→17:03)
[2024-10-19 06:00] VITALS: BP 139/67; PULSE 70; RESP 16; TEMP 36.3
[2024-10-19] MEDS: Aspirin 81 MG TAB.CHEW PO (08:32)
[2024-10-19] MEDS: Lisinopril 10 MG Tablet PO (09:04)
[2024-10-19 09:11] VITALS: PULSE 70
[2024-10-19] MEDS: Cyanocobalamin 500 MCG Tablet PO (09:11)
[2024-10-19] MEDS: Senna/Docusate Sodium 1 Tablet PO ×2 (09:11→21:00)
[2024-10-19] MEDS: Tamsulosin HCl 0.4 MG Capsule PO (09:11)
[2024-10-19] MEDS: Pantoprazole Sodium 40 MG Tablet PO (09:11)
[2024-10-19] MEDS: Metoprolol Tartrate 25 MG Tablet PO ×2 (09:11→21:01)
[2024-10-19] MEDS: Heparin Injection (Vial) 5,000 UNIT/ML VIAL 5000 UNIT SC ×2 (09:11→21:00)
[2024-10-19] MEDS: Ensure Plus High Protein 120 ML LIQUID PO ×4 (09:12→21:00)
[2024-10-19 14:29] VITALS: BMI 27.3
[2024-10-19 18:00] VITALS: BP 123/66; PULSE 70; RESP 16; TEMP 36.8; O2SAT 91
[2024-10-19 20:10] VITALS: BMI 27.3
[2024-10-19] MEDS: QUEtiapine 25 MG Tablet 50 MG PO (20:27)
[2024-10-19 20:54] VITALS: BP 119/63; PULSE 87; RESP 16; TEMP 36.6; O2SAT 93
[2024-10-19] MEDS: Atorvastatin Calcium 40 MG Tablet PO (21:00)
[2024-10-19 21:01] VITALS: PULSE 87
[2024-10-19] MEDS: MELATONIN 3 MG TABLET PO (21:01)
[2024-10-19 22:00] VITALS: PULSE 87; RESP 15
--- NOTE | 2024-10-20 00:41 | NURSING ---
Pt set off BA and was found attempting to get oob for toileting needs. Staff assisted with urinal use and found O2 tubing disconnected and in bed linen. Pt is not leaving O2 on. Staff is rounding frequently this hs d/t pt's removal of O2 frequently.
--- NOTE | 2024-10-20 01:03 | NURSING ---
SPO2 LEVEL CHECKED AND FOUND O2 IN PLACE. SPO2 AT THIS TIME = 93%.
[2024-10-20] MEDS: traMADol 50 MG Tablet 25 MG PO ×3 (05:29→17:07)
[2024-10-20 05:30] VITALS: BP 120/62; PULSE 75; RESP 15; TEMP 36.7; O2SAT 94
[2024-10-20] MEDS: Menthol/Lanolin/Calamine/Znox 113 GM Tube 1 APPLIC TOPICAL ×2 (05:30→20:54)
[2024-10-20] MEDS: Nystatin Powder 15gm Bottle 1 APPLIC TOPICAL ×2 (05:31→20:58)
[2024-10-20] MEDS: Aspirin 81 MG TAB.CHEW PO (08:33)
[2024-10-20 09:07] VITALS: PULSE 75
[2024-10-20] MEDS: Tamsulosin HCl 0.4 MG Capsule PO (09:07)
[2024-10-20] MEDS: Senna/Docusate Sodium 1 Tablet PO ×2 (09:07→20:59)
[2024-10-20] MEDS: Metoprolol Tartrate 25 MG Tablet PO ×2 (09:07→21:03)
[2024-10-20] MEDS: Lisinopril 10 MG Tablet PO (09:07)
[2024-10-20] MEDS: Cyanocobalamin 500 MCG Tablet PO (09:07)
[2024-10-20] MEDS: Pantoprazole Sodium 40 MG Tablet PO (09:07)
[2024-10-20] MEDS: Heparin Injection (Vial) 5,000 UNIT/ML VIAL 5000 UNIT SC ×2 (09:08→20:55)
[2024-10-20] MEDS: Ensure Plus High Protein 120 ML LIQUID PO ×3 (12:13→20:55)
[2024-10-20 14:36] VITALS: BMI 27.3
[2024-10-20 18:00] VITALS: BP 108/56; PULSE 71; RESP 17; TEMP 37.2; O2SAT 93
[2024-10-20] MEDS: QUEtiapine 25 MG Tablet 50 MG PO (20:45)
[2024-10-20] MEDS: Atorvastatin Calcium 40 MG Tablet PO (20:56)
[2024-10-20] MEDS: MELATONIN 3 MG TABLET PO (20:58)
[2024-10-20 21:02] VITALS: BP 121/64; PULSE 73; RESP 15; TEMP 36.9; O2SAT 94
[2024-10-20 21:03] VITALS: PULSE 73
[2024-10-20 22:00] VITALS: PULSE 93; RESP 15
[2024-10-20 23:29] VITALS: BMI 27.3
[2024-10-21] VITALS (7 sets, daily range): BP systolic 103–154; BP diastolic 58–94; PULSE 76–102; RESP 14–18; TEMP 36.7–37.3; O2SAT 91–94; BMI 27.3
--- NOTE | 2024-10-21 01:20 | NURSING ---
SpO2 level checked. 93% with O2 @ 2L
[2024-10-21] MEDS: traMADol 50 MG Tablet 25 MG PO ×2 (05:31→12:15)
[2024-10-21] MEDS: Menthol/Lanolin/Calamine/Znox 113 GM Tube 1 APPLIC TOPICAL ×2 (05:31→22:36)
[2024-10-21] MEDS: Nystatin Powder 15gm Bottle 1 APPLIC TOPICAL ×2 (05:32→22:37)
[2024-10-21] MEDS: Aspirin 81 MG TAB.CHEW PO (08:17)
--- NOTE | 2024-10-21 09:04 | PCM.PROGNOTE ---
Subjective Subjective Michael was seen on team rounds today. Dexter and dtr Amy were present in the room. Afebrile VSS - Maintaining appropriate oxygen saturation on RA Oral intake - FOOD good FLUIDS fair Weight is stable. Having regular bowel movements. Discussed with nursing - remains impulsive. Getting up from chair and out of bed setting off alarms. Sleeping well at night with the increase in the Seroquel to 50 mg. Gets up at night to use the rest room. Cooperative with therapy in the day and is pleasant and not agitated. Reviewed the THERAPY notes Medication list reviewed. Michael has no complaints. He does not appear to be in any distress. Does not appear painful when doing therapy. He is progressing with therapy and getting stronger. Not coughing. Not tachypneic. Denies CP. No fevers. Objective Data Objective Data Vital Signs: Vital Signs Temp Pulse Resp BP Pulse Ox O2 Del Method O2 Flow Rate 98.6 F 76 15 118/62 94 Room Air 2 10/21/24 05:48 10/21/24 05:48 10/21/24 05:48 10/21/24 05:48 10/21/24 05:48 10/21/24 08:28 10/21/24 05:48 FiO2 93 10/20/24 22:00 Oxygen Flow Rate (L/min) 2 Oxygen Delivery Method Room Air Weight: 139 lb 8 oz Body Mass Index (BMI) 27.3 Intake & Output: Intake and Output for Last 24 Hours 10/19/24 10/20/24 10/21/24 23:59 23:59 23:59 Intake Total 1100 / 1100 780 / 780 520 / 520 Output Total 450 / 450 500 / 500 300 / 300 Balance 650 / 650 280 / 280 220 / 220 Lab / Micro Data 10/16/24 06:41 10/16/24 06:41 Micro: Microbiology 09/29/24 09:12 Exudate Gram Stain - Final 09/29/24 09:12 Exudate Wound Culture - Final Staphylococcus aureus 09/30/24 04:43 Stool Stool Occult Blood (JOVANI) - Final Occult Blood Positive Physical Exam Const alert and no apparent distress Constitutional Narrative: Impulsive with poor safety awareness. Very pleasant and cooperative. No aggressive behavior. General Appearance: cooperative and well kempt Resp normal respiratory effort Resp Narrative: diminished throughout. Persistent coarse crackles in the L base.....chronic since admission. No wheezing. Not tachypneic. No conversational dyspnea. Effort and Inspection: able to speak in complete sentences; Negative for tachypneic Cardio regular rate, regular rhythm and no gallops Cardio Narrative: No ectopy today. GI normal to inspection, nondistended, normoactive bowel sounds, soft to palpation and non-tender GI Narrative: Bladder feels a little distended. Extremity no calf tenderness General Extremity: Negative for edema Assessment & Plan Assessment/Plan (1) Debility: (2) Acute ischemic right MCA stroke: (3) Left leg weakness: (4) Facial droop: (5) Cognitive dysfunction: (6) Inferior pubic ramus fracture: QUALIFIERS: Encounter type: initial encounter Fracture type: closed Laterality: left Qualified Code(s): S32.592A - Other specified fracture of left pubis, initial encounter for closed fracture PLAN: Secondary to a fall (7) Pain aggravated by physical activity: (8) Essential (primary) hypertension: (9) Hypoxemia associated with sleep: (10) Dementia with behavioral disturbance: (11) Oropharyngeal dysphagia: (12) Aspiration into trachea: (13) Eosinophilia, unspecified: QUALIFIERS: Eosinophilia type: unspecified eosinophilia Qualified Code(s): D72.10 - Eosinophilia, unspecified PLAN: Plan 1. Continue therapy. 2. Family has chosen [facility]. SW is applying for pre-cert fpr transfer. He is physically getting stronger but, he is still impulsive and has poor safety awareness. Short term memory is poor. is not able to care for him at home. He would need 24/7 supervision. Family not able to provide this. I discussed with family about dementia farrukhDede Renteria seems to think the memory problems have a lot to do with hearing loss. He has hearing aids that are in the [facility] office but, he has to go pick them up at the facility so they can be calibrated. We do not have a DC date yet but, when we do I can call ENT and try to schedule an APPT for the day of DC so he can stop at ENT prior to going to facility. IF they can not accommodate him then will need to get an appt for him once he is at the SNF or ECF. CVA has likely impaired cognitive process but, after talking with his dtr the problems with memory predated the stroke. 3. Change tramadol to 25 mg p.o. every 6 hours as needed pain 4-10 4. Follow up with neurology as an OP for DX/TX of suspected dementia. Charges/Coding Visit Charges Inpatient E&M: 47876 Subs Hosp L2
[2024-10-21] MEDS: Ensure Plus High Protein 120 ML LIQUID PO ×2 (10:47→17:27)
[2024-10-21] MEDS: Cyanocobalamin 500 MCG Tablet PO (10:47)
[2024-10-21] MEDS: Pantoprazole Sodium 40 MG Tablet PO (10:47)
[2024-10-21] MEDS: Tamsulosin HCl 0.4 MG Capsule PO (10:47)
[2024-10-21] MEDS: Senna/Docusate Sodium 1 Tablet PO ×2 (10:47→22:36)
[2024-10-21] MEDS: Metoprolol Tartrate 25 MG Tablet PO ×2 (10:52→22:35)
--- NOTE | 2024-10-21 10:59 | NURSING ---
Per verbal communication with Dr. Gaxiola, ok to hold AM lisinopril for BP of 103/62 in left arm sitting and 90/57 right arm sitting. Heart rate 96, okay to give metoprolol.
[2024-10-21] MEDS: Heparin Injection (Vial) 5,000 UNIT/ML VIAL 5000 UNIT SC ×2 (11:07→22:35)
--- NOTE | 2024-10-21 16:41 | CASEMGMT ---
Team meeting held on this date with pt's Marilyn and pt's dgt Amy present. PT/OT/ST/SN provided updates on pt progress with therapy. Pt will require 24 hour care at discharge. Pt with dementia and impulsivity. Pt's is frail and unable to provide the needed support at home that pt requires. Pt's children are in agreement that pt will need SNF placement. Pt's sons previously choose [facility] for pt and [facility] is able to accept. [facility] reviewed SNF options with pt and dgt Amy, and after much discussion, family is all agreeable with placement at [facility]. SW reached out to [facility] and requested precert be started at this time. Family aware that if insurance does not pay, pt will be private pay and SW did explain Medicaid program. SW to continue to follow for dc planning. ALDEN Godinez
[2024-10-21] MEDS: Atorvastatin Calcium 40 MG Tablet PO (22:36)
[2024-10-21] MEDS: QUEtiapine 25 MG Tablet 50 MG PO (22:36)
[2024-10-21] MEDS: MELATONIN 3 MG TABLET PO (22:37)
[2024-10-22 06:00] VITALS: BP 158/64; PULSE 81; RESP 16; TEMP 36.8; O2SAT 93
[2024-10-22] MEDS: Nystatin Powder 15gm Bottle 1 APPLIC TOPICAL ×2 (06:05→20:55)
[2024-10-22] MEDS: Menthol/Lanolin/Calamine/Znox 113 GM Tube 1 APPLIC TOPICAL ×2 (06:05→20:54)
[2024-10-22 08:45] VITALS: PULSE 81
[2024-10-22] MEDS: Lisinopril 10 MG Tablet PO (08:45)
[2024-10-22] MEDS: Senna/Docusate Sodium 1 Tablet PO ×2 (08:45→20:52)
[2024-10-22] MEDS: Cyanocobalamin 500 MCG Tablet PO (08:45)
[2024-10-22] MEDS: Pantoprazole Sodium 40 MG Tablet PO (08:45)
[2024-10-22] MEDS: Metoprolol Tartrate 25 MG Tablet PO ×2 (08:45→20:53)
[2024-10-22] MEDS: Heparin Injection (Vial) 5,000 UNIT/ML VIAL 5000 UNIT SC ×2 (08:46→20:49)
[2024-10-22] MEDS: Ensure Plus High Protein 120 ML LIQUID PO ×3 (08:46→20:48)
[2024-10-22] MEDS: Aspirin 81 MG TAB.CHEW PO (08:46)
[2024-10-22] MEDS: Tamsulosin HCl 0.4 MG Capsule PO (08:46)
--- NOTE | 2024-10-22 13:24 | CASEMGMT ---
Social Work Insurance denied SNF stay at [facility]. Phone call to pt dgt Amy and informed of this. Amy states pt cannot private pay. [facility] explained that per earlier conversation with pt son Jorge L, pt does have the means to pay for a few months until Medicaid is worked out. Amy then requests that SW work out dc with brother Jorge L. Phone call to pt's son Jorge L and explained that SNF stay has been denied and that pt will be private pay at SNF. Jorge L is upset by this information as he was certain that insurance would pay for SNF. [facility]C did speak with Jorge L extensively last week about Ordnance Technician care and payment. ALEC explained to Jorge L exterminator termite care, private pay,part B therapy and Medicaid. Per IDT, pt is ready for discharge. Jorge L initially stated to move forward with discharging to [facility]. Jorge L then states that he just received a text from his sister Amy who is asking for placement at [facility]. ALEC explained that it does not matter where pt goes, insurance has denied covering the cost of the stay. Jorge L asking SW to make referral to [facility]. Once ALEC hung up, a message was received from Amy requesting placement at [facility]. Referral sent to [facility]. [facility] will await determination of acceptance. ALDEN Ramon
[2024-10-22 14:35] VITALS: BMI 27.3
--- NOTE | 2024-10-22 16:06 | PCM.TXEXTCAR ---
Diet Diet Order/Speech Therapy: INPATIENT Hospital Diet / Speech Therapy Order(s) 09/27/24 18:37 Diet: Cardiac - Heart Healthy Food consistency:: Easy to Chew Liquid Consistency:: [place]/Mildly Thick Diet Comments: NTL by tsp. only, 1:1 direct supervision, FFWP Routine Orders/Code Status Enema Type: Fleetz Enema Frequency: Daily PRN Suppository Type: Dulcolax 10mg Suppository Frequency: Daily PRN Change Esteves Catheter: N/A Code Status: DNRCC-A (No intubation. ) DC O2, CPAP, BIPAP needs Home O2 Discharge instructions: Yes Type of respiratory needs?: Oxygen Oxygen frequency: With Sleeping Oxygen liters per minute when sleepin Wound(s) Left elbow: Wound Type: Skin Tear POSTERIOR MID THIGH: Wound Type: Abrasion Therapies Weight Bearing: Full weight bearing Physical Therapy: Eval and Treat Occupational Therapy: Eval and Treat Speech Therapy: Eval and Treat Problem/Diagnosis (1) Debility: Status: Acute Code(s): R53.81 - Other malaise (2) Acute ischemic right MCA stroke: Status: Inactive Code(s): I63.511 - Cerebral infarction due to unspecified occlusion or stenosis of right middle cerebral artery (3) Left leg weakness: Status: Acute Code(s): R29.898 - Other symptoms and signs involving the musculoskeletal system Plan: Improved with therapy and now ambulating with a FWW up to 120' at CGA. He is able to ascend/descend 3 4 steps and 2 6 steps with 2 HR at min-mod assist (4) Facial droop: Status: Acute Code(s): R29.810 - Facial weakness Plan: Improved (5) Cognitive dysfunction: Status: Chronic Code(s): F09 - Unspecified mental disorder due to known physiological condition Plan: chronic cognitive dysfunction due to dementia with acute decline due to CVA. (6) Inferior pubic ramus fracture: Status: Acute Code(s): S32.599A - Other specified fracture of unspecified pubis, initial encounter for closed fracture Plan: Secondary to a fall. Still with very poor safety awareness. Requiring bed and chair alarms. Impulsive and gets up from a chair and the bed without calling nursing for assistance. At risk for falls. Pain is adequately controlled with Scheduled tylenol 1 GM Q8H. Was transitioned to PRN Tramadol 25 mg q 6H PRN on 10/21 and has not taken any Tramadol since the 25 mg q 8H was discontinued. (7) Pain aggravated by physical activity: Status: Acute Code(s): R52 - Pain, unspecified Plan: Pain is well controlled at the time of DC from acute rehab. (8) Essential (primary) hypertension: Status: Chronic Code(s): I10 - Essential (primary) hypertension Plan: BP's are well controlled with lisinopril 10 mg daily and metoprolol tartrate 25 mg twice daily. Heart rate is within normal limits. Negative orthostatic vital signs on 10/21/2024. Denies lightheadedness. (9) Hypoxemia associated with sleep: Status: Chronic Code(s): G47.36 - 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 classified elsewhere Plan: Will be discharged on 2 L/min nasal O2 while sleeping. He frequently takes the oxygen off at night. (10) Dementia with behavioral disturbance: Status: Chronic Code(s): F03.918 - Unspecified dementia, unspecified severity, with other behavioral disturbance Plan: He sundowns and gets very restless at night. Prior to DC from rehab he is sleeping pretty well on Seroquel 50 mg Q HS. He is not aggressive just confused and restless........mostly at night. We have not needed anything during the day. EKG on Serouel 50 mg shows no QT prolongationj. (11) Oropharyngeal dysphagia: Status: Chronic Code(s): R13.12 - Dysphagia, oropharyngeal phase Plan: Improved with ST. (12) Aspiration into trachea: Status: Chronic Code(s): T17.408A - Unspecified foreign body in trachea causing other injury, initial encounter Plan: Much improved with nectar thick liquids and easy to chew foods. The chronic cough he had at admission to rehab is gone. Lungs have coarse crackles in the left base that are chronic and likely due to scarring. No wheezing. (13) Eosinophilia, unspecified: Status: Chronic Code(s): D72.10 - Eosinophilia, unspecified Plan: Absolute eosinophil count is less than 1,500. No indication for any further W/U. No rashes and denies pruritus. (14) Urinary retention: Status: Chronic Code(s): R33.9 - Retention of urine, unspecified Plan: Continue Flomax. He is tilt negative on Flomax. (15) History of esophageal dilatation: Status: Inactive Code(s): Z98.890 - Other specified postprocedural states Plan: Remote dilation.....by Dr. Abbasi. (16) GERD (gastroesophageal reflux disease): Status: Chronic Code(s): K21.9 - Gastro-esophageal reflux disease without esophagitis Plan: Continue pantoprazole 40 mg daily (17) Mild aortic stenosis: Status: Chronic Code(s): I35.0 - Nonrheumatic aortic (valve) stenosis (18) Heme + stool: Status: Acute Code(s): R19.5 - Other fecal abnormalities Plan: HGB is stable while on rehab. Will continue Protonix. Plan 1. DC to [facility] tomorrow. 2. Follow up with Dr. Castro from neurology. Allergies/Procedures Done in Hospital Allergies egg Allergy (Verified 09/24/24 18:40) Anaphylaxis Procedures: Transthoracic Echo (The estimated ejection fraction is 55 %. No evidence for diastolic dysfunction. Trivial mitral valve insufficiency. Mild aortic stenosis.) Type of Care/Length of Stay Estimated LOS: More Than 30 Days Type of Care Needed: Intermediate Rehab Potential: Fair Prognosis: Fair Additional Orders/Day of Discharge Additional Orders: He is very impulsive and constantly setting off bed and chair alarms trying to get up by himself. Please use alarms. 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 Continue EPHP 120mL 4x per day with medpass. Follow Up Care Please Follow Up With: Jamil Castro MD When: please get him an appt to follow up for CVA and dementia. Discharge Plan Admission Admit Date/Time: 09/27/24 17:26 Primary Reason for Your Visit: Debility due to R MCA ischemic CVA/pelvic fx Attending Provider: Amy Gaxiola Primary Care Provider: Nimisha Cutler Instructions Additional Instructions / Restrictions: 1. He is very impulsive and is always setting off the bed and chair alarms trying to get up by himself. He is a fall risk and not safe to get up by himself. 2. He gets more confused in the evenings and sundowns. Very restless and not sleeping well at nights at admission to rehab. sleeping much better on Seroquel 50 mg at HS. 3. Cough is much improved with easy to chew foods and nectar thick liquids. Would repeat a MBS prior to trying to advance to thin liquids. 4. Needs to follow up with Dr. Castro for CVA and dementia. 5. 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 6. Urine retention improved while on rehab but, he still retains. PVR's are in the 200's but, has not required straight cath. Has not had any UTI's while on rehab. 7. He had a heme + stool but, HGB is stable and he denies N/V/epigastric pain and heart burn. HGB was 12.3 on 10/16/24. He was taking dual antiplatelet drugs when the hemoccult stool was obtained. He completed 21 days of dual antiplatelet agents and is now only on ASA 81 mg daily. Discharge Orders/Prescriptions Prescriptions: New quetiapine 25 mg Tablet 50 mg PO 2100 Qty: 1 0RF sennosides-docusate sodium [Stimulant Laxative Plus] 8.6-50 mg Tablet 1 tab PO BID Qty: 1 0RF melatonin 3 mg Tablet 3 mg PO QHS Qty: 1 0RF tramadol 50 mg Tablet 25 mg PO Q6H PRN PRN (Reason: Pain 4-10) 7 Days Qty: 20 0RF nystatin 100,000 unit/gram Powder 1 applic topical 0600,0 Qty: 1 0RF Protocol: *Topical Application Instructions APPLICATION INSTRUCTIONS: Groin metoprolol tartrate 25 mg Tablet 25 mg PO BID Qty: 1 0RF menthol-zinc oxide [Calmoseptine] 0.44-20.6 % Ointment 1 applic topical 0600,2200 Qty: 1 0RF Protocol: *Topical Application Instructions APPLICATION INSTRUCTIONS: Apply to buttock Continued tamsulosin 0.4 mg capsule 0.4 mg PO DAILY cyanocobalamin (vitamin B-12) [Vitamin B-12] 500 mcg tablet 500 mcg PO DAILY atorvastatin 40 mg Tablet 40 mg PO QHS Qty: 0 0RF acetaminophen 500 mg Tablet 1,000 mg PO Q8 Qty: 0 0RF lisinopril 10 mg Tablet 10 mg PO DAILY Qty: 0 0RF aspirin 81 mg Tablet,Chewable 81 mg PO DAILYCM Qty: 0 0RF ergocalciferol (vitamin D2) [Vitamin D2] 1,250 mcg (50,000 unit) Capsule 1,250 mcg PO Q7D@1000 Qty: 0 0RF Ensure Plus High Protein 0.08 gram-1.5 kcal/mL Liquid 120 ml PO 4X/DAY Qty: 0 0RF Discontinued meclizine 25 mg tablet 25 mg PO TID PRN PRN (Reason: dizziness or vertigo) acetaminophen 500 mg Tablet 1,000 mg PO Q6H PRN PRN (Reason: Pain Score 1-10) Qty: 0 0RF sennosides-docusate sodium [Stimulant Laxative Plus] 8.6-50 mg Tablet 2 tab PO BID Qty: 0 0RF clopidogrel 75 mg Tablet 75 mg PO DAILY Qty: 0 0RF heparin (porcine) 5,000 unit/mL Solution 5,000 unit subcut Q12 Qty: 0 0RF metoprolol tartrate 25 mg Tablet 25 mg PO BID Qty: 0 0RF melatonin 10 mg Tablet, Sublingual 10 mg PO QHS Qty: 0 0RF No Action omeprazole 20 MG capsule 40 mg PO DAILY Patient Comments: acid reflux Referrals / Follow Up: Nimisha Cutler MD [Primary Care Provider] - Disposition Disposition (needs filled in before D/C Order can be placed): NonSkilled NH/Intermed Care (6) Inferior pubic ramus fracture Qualifiers: Encounter type: initial encounter Fracture type: closed Laterality: left Qualified Code(s): S32.592A - Other specified fracture of left pubis, initial encounter for closed fracture (13) Eosinophilia, unspecified Qualifiers: Eosinophilia type: unspecified eosinophilia Qualified Code(s): D72.10 - Eosinophilia, unspecified (16) GERD (gastroesophageal reflux disease) Qualifiers: Esophagitis presence: without esophagitis Qualified Code(s): K21.9 - Gastro-esophageal reflux disease without esophagitis
--- NOTE | 2024-10-22 16:07 | CASEMGMT ---
Social Work [facility] is able to accept pt and pt's family will have to pay 30 days up front. Phone call to pt's son Jorge L and explained this. Jorge L is agreeable to discharge tomorrow to [facility]. Jorge L with go to [facility] with pt and will make the payment at that time. Jorge L requesting transportation be arranged for pt later in the day tomorrow. Physician and team notified and agreeable to dc plan. Plan: [facility], intermediate level of care ALDEN Godinez
--- NOTE | 2024-10-22 16:20 | EKG12_ITS ---
Test Reason : Blood Pressure : */* mmHG Vent. Rate : 78 BPM Atrial Rate : 78 BPM P-R Int : 192 ms QRS Dur : 104 ms QT Int : 406 ms P-R-T Axes : 25 -39 58 degrees QTcB Int : 462 ms Normal sinus rhythm Left axis deviation Minimal voltage criteria for LVH, may be normal variant ( R in aVL ) Cannot rule out Inferior infarct , age undetermined Abnormal ECG When compared with ECG of 14-Oct-2024 11:43, No significant change was found Confirmed by YISEL RAYMOND, PLACIDO ([id number]), society editor KERON HUERAT ([id number]) on 10/23/2024 12:47:06 PM Referred By: Amy Gaxiola Confirmed By: PLACIDO MORILLO MD
--- NOTE | 2024-10-22 17:07 | EX.DISCHREH ---
Providers Date of Admission: 09/27/24 Date of Discharge: 10/23/24 Primary Care Physician: Dr. Nimisha Cutler MD Reason For Visit: CVA Diagnosis Discharge Diagnosis (1) Debility: Status: Acute Code(s): R53.81 - Other malaise (2) Acute ischemic right MCA stroke: Status: Inactive Code(s): I63.511 - Cerebral infarction due to unspecified occlusion or stenosis of right middle cerebral artery (3) Left leg weakness: Status: Acute Code(s): R29.898 - Other symptoms and signs involving the musculoskeletal system Plan: Improved with therapy and now ambulating with a FWW up to 120' at CGA. He is able to ascend/descend 3 4 steps and 2 6 steps with 2 HR at min-mod assist (4) Facial droop: Status: Acute Code(s): R29.810 - Facial weakness Plan: Improved (5) Cognitive dysfunction: Status: Chronic Code(s): F09 - Unspecified mental disorder due to known physiological condition Plan: chronic cognitive dysfunction due to dementia with acute decline due to CVA. (6) Inferior pubic ramus fracture: Status: Acute Code(s): S32.599A - Other specified fracture of unspecified pubis, initial encounter for closed fracture Qualifiers: Encounter type: initial encounter Fracture type: closed Laterality: left Qualified Code(s): S32.592A - Other specified fracture of left pubis, initial encounter for closed fracture Plan: Secondary to a fall. Still with very poor safety awareness. Requiring bed and chair alarms. Impulsive and gets up from a chair and the bed without calling nursing for assistance. At risk for falls. Pain is adequately controlled with Scheduled tylenol 1 GM Q8H. Was transitioned to PRN Tramadol 25 mg q 6H PRN on 10/21 and has not taken any Tramadol since the 25 mg q 8H was discontinued. (7) Pain aggravated by physical activity: Status: Acute Code(s): R52 - Pain, unspecified Plan: Pain is well controlled at the time of DC from acute rehab. (8) Essential (primary) hypertension: Status: Chronic Code(s): I10 - Essential (primary) hypertension Plan: BP's are well controlled with lisinopril 10 mg daily and metoprolol tartrate 25 mg twice daily. Heart rate is within normal limits. Negative orthostatic vital signs on 10/21/2024. Denies lightheadedness. (9) Hypoxemia associated with sleep: Status: Chronic Code(s): G47.36 - 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 classified elsewhere Plan: Will be discharged on 2 L/min nasal O2 while sleeping. He frequently takes the oxygen off at night. (10) Dementia with behavioral disturbance: Status: Chronic Code(s): F03.918 - Unspecified dementia, unspecified severity, with other behavioral disturbance Plan: He sundowns and gets very restless at night. Prior to DC from rehab he is sleeping pretty well on Seroquel 50 mg Q HS. He is not aggressive just confused and restless........mostly at night. We have not needed anything during the day. (11) Oropharyngeal dysphagia: Status: Chronic Code(s): R13.12 - Dysphagia, oropharyngeal phase Plan: Improved with ST. (12) Aspiration into trachea: Status: Chronic Code(s): T17.408A - Unspecified foreign body in trachea causing other injury, initial encounter Plan: Much improved with nectar thick liquids and easy to chew foods. The chronic cough he had at admission to rehab is gone. Lungs have coarse crackles in the left base that are chronic and likely due to scarring. No wheezing. (13) Eosinophilia, unspecified: Status: Chronic Code(s): D72.10 - Eosinophilia, unspecified Qualifiers: Eosinophilia type: unspecified eosinophilia Qualified Code(s): D72.10 - Eosinophilia, unspecified Plan: Absolute eosinophil count is less than 1,500. No indication for any further W/U. No rashes and denies pruritus. (14) Urinary retention: Status: Chronic Code(s): R33.9 - Retention of urine, unspecified Plan: Continue Flomax. He is tilt negative on Flomax. Still retaining urine and the PVR's are in the 200's. We straight cath for residual > 300 but, we have not had to straight cath recently. (15) History of esophageal dilatation: Status: Inactive Code(s): Z98.890 - Other specified postprocedural states Plan: Remote dilation.....by Dr. Abbasi for esophageal stenosis. (16) GERD (gastroesophageal reflux disease): Status: Chronic Code(s): K21.9 - Gastro-esophageal reflux disease without esophagitis Qualifiers: Esophagitis presence: without esophagitis Qualified Code(s): K21.9 - Gastro-esophageal reflux disease without esophagitis Plan: Continue pantoprazole 40 mg daily (17) Mild aortic stenosis: Status: Chronic Code(s): I35.0 - Nonrheumatic aortic (valve) stenosis (18) Heme + stool: Status: Acute Code(s): R19.5 - Other fecal abnormalities Plan: HGB is stable while on rehab. Will continue Protonix. It was + when he was on both Plavix and aspirin. He received 21 days of dual antiplatelet agents but now is only taking aspirin. Hemoglobin is stable at 12.3 on 10/16/2024. Plan 1. DC to [facility] tomorrow. 2. Follow up with Dr. Castro from neurology. Medications at Discharge Home Medications omeprazole 20 mg capsule,delayed release 40 mg PO DAILY GERD 01/02/16 cyanocobalamin (vitamin B-12) 500 mcg tablet (Vitamin B-12) 500 mcg PO DAILY Supplement 03/05/24 tamsulosin 0.4 mg capsule 0.4 mg PO DAILY Bladder 03/05/24 acetaminophen 500 mg tablet 1,000 mg (2 x 500 mg) PO Q8 pain #0 tabs 09/27/24 aspirin 81 mg chewable tablet 81 mg PO DAILYCM Heart health #0 tabs 09/27/24 atorvastatin 40 mg tablet 40 mg PO QHS cholestrol #0 tabs 09/27/24 ergocalciferol (vitamin D2) 1,250 mcg (50,000 unit) capsule (Vitamin D2) 1,250 mcg PO Q7D@1000 supplement #0 caps 09/27/24 food supplemt, lactose-reduced 0.08 gram-1.5 kcal/mL oral liquid (Ensure Plus High Protein) 120 ml PO 4X/DAY supplement #0 mL 09/27/24 lisinopril 10 mg tablet 10 mg PO DAILY BP #0 tabs 09/27/24 melatonin 3 mg tablet 3 mg PO QHS #1 TAB 10/22/24 menthol 0.44 %-zinc oxide 20.6 % topical ointment (Calmoseptine) 1 applic topical 0600,2200 #1 g 10/22/24 metoprolol tartrate 25 mg tablet 25 mg PO BID #1 TAB 10/22/24 nystatin 100,000 unit/gram topical powder 1 applic topical 0600,2200 #1 g 10/22/24 quetiapine 25 mg tablet 50 mg (2 x 25 mg) PO 2100 #1 TAB 10/22/24 sennosides 8.6 mg-docusate sodium 50 mg tablet (Stimulant Laxative Plus) 1 tab PO BID #1 TAB 10/22/24 tramadol 50 mg tablet 25 mg (1/2 x 50 mg) PO Q6H PRN PRN Pain 4-10 1 week #20 tabs 10/22/24 Hospital Course Operations None Procedures Transthoracic echo (The estimated ejection fraction is 55 %. No evidence for diastolic dysfunction. Trivial mitral valve insufficiency. Mild aortic stenosis.) Summary of Care Provided Minutes Spent on Discharge: 45 Hospital Course: AYESHA JACOBSEN, is a 89 YO M with a PMH of hypertension, seizure disorder (? on no medication), vertigo, asthma, BPH with urine retention, history of colectomy, GERD, esophageal stenosis(dilated by Dr. Abbasi in the past), OA and chronic debility who presented to the ED at [facility] on 09/24/24 c/o pain in the L hip after a fall. He was unable to ambulate. Plain x-ray showed no evidence of acute fracture of the left hip. CT scan of the pelvis showed an acute nondisplaced fracture of the left inferior pubic ramus and fracture of the anterior inferior left acetabular wall. There was no dislocation. He was admitted to the hospitalist service for pain management and consult with case management for disposition at [place]. PT/OT were consulted. On 09/25/24 he was noted to have focal weakness of the LLE that exceeded what would be expected with pelvic fracture. An MRI of the brain was obtained and showed small acute right scattered MCA infarcts. He was started on dual antiplatelet agents and atorvastatin 40 mg daily. LDL was checked and was 103 and his hemoglobin A1c was 5.4. The HDL was 59. Tele-neurology was consulted and recommended a transthoracic echocardiogram and carotid ultrasound. They also recommended dual antiplatelet agents for 21 days and then DC Plavix but, continue lifelong ASA. An event monitor was recommended at discharge. TTE showed normal left ventricular size with an ejection fraction of 55%. Both atria were of normal size. There was mild aortic stenosis and mild TR and MR. Carotid ultrasound showed less than 50% stenosis and both extracranial internal carotids. He was transferred to the acute inpatient rehab unit at [facility] on 09/27/2024 with a diagnosis of poststroke debility. He will have 3 hours of therapy daily to restore function/independence at or near his level prior to recent events. At presentation to rehab Michael was quite confused, more so in the evening and night, and was not sleeping at night. He was very restless at night and setting off the bed alarm trying to get out of bed without assist. His dtr related that Michael had been having memory problems for a few years. He was started on Seroquel at night and the dose was gradually increased to a total of 50 mg Q HS. At the time of DC from rehab he is sleeping well at night. His EKG on 10/22/24 showed a normal QT interval. He is alert during the day and has been cooperative with therapy. He is pleasant and talkative. He is still quite impulsive and has poor safety awareness. He has chair alarms and bed alarms and he often sets off the alarms trying to get up without assist. He still loses his balance and is not safe to be up ambulating without assist at the time of DC from rehab. His appetite and intake are good. BP is at goal and VS are stable at the time of DC from rehab. He took ASA + Plavix for a total of 21 days and then Plavix was discontinued. While on dual antiplatelet agents a hemoccult stool was + however, the HGB has been stable and on 10/16/24 it was 12.3. He has not complained of N/V/heartburn or epigastric pain. He chronically takes Protonix for GERD. Creat is stable at 1.05 prior to DC from rehab. He is sometimes incontinent of both urine and stool. The most recent PVR's have ranged from 205 to 247. He has not required catheterization for PVR > 300. He is on Flomax for BPH. Blood pressure for 24 hours prior to discharge from rehab has ranged from 106/86 to 158/64 ( this happened only once and all other BP's were within goal of less than 140/80. Orthostatic vital signs on 10/21/2024 were negative for orthostatic hypotension. He denies dizziness. HR is WNL. He is afebrile and maintaining appropriate oxygen saturation on room air while awake. He does desaturate while sleeping and is prescribed 2 L of nasal O2 when he is sleeping but he frequently takes this off. LFT's were checked on 10/10/24 and were all WNL. Will need a Lipid panel, Liver panel and CK in 2-3 weeks after DC from rehab. the eosinophil % has been mildly increased but, the absolute eosinophil count is less than 1,500 and no further W/U is needed. He has no rashes and denies pruritus. Michael was quite painful at arrival to rehab. He was started on scheduled Tylenol 1 GM Q 8H and Tramadol 25 mg q 8H and this was effective in controlling the L hip/leg pain so that he could do therapy. A few days prior to DC to [facility] Tramadol was made PRN and since we did this he has not had to have any Tramadol. Pain is well controlled with just Tylenol. He had no adverse reactions to Tramadol when he was taking it 3 times a day. At the time of DC from rehab Michael he is able to do 7 sit to stands in 30 seconds from a standard height chair using his upper extremities to rise. He is able to complete the TUG test and 31.26 seconds using a front wheel walker at contact-guard assist. This is down from 2 minutes and 12 seconds at admission to rehab. He is able to ascend/descend three 4 inch steps and two 6 inch steps with 2 handrails at min/mod assist. He has ambulated up to 120 feet with a front wheeled walker at contact-guard assist but, with longer distances he is using a WC due to increased pain with prolonged standing. He can ambulate 20' with a FWW at [facility] with no c/o pain. He is very adept at maneuvering the WC. He is still contact-guard assist to min assist x 1 for all functional transfers using a front wheel walker. He is able to get into bed at min assist for his lower extremities. He is supervision/set up for eating and upper body dressing. He is standby assist for grooming, bathing and lower body dressing. He is contact-guard assist for toilet transfer and tub and shower transfer. He requires moderate assistance with toileting, especially for hygiene. He scored a 23/50 on the BCAT (brief cognitive assessment tool) at admission to rehab. He had a orientation LOG done prior to DC and scored 27/30. He also had a COG LOG test and scored 19 out of a possible 30. Michael is still on nectar thick liquids at the time of discharge from rehab and easy to chew foods. We have been using the Harmon water protocol with him. His chronic cough is much improved since the liquids are being thickened. Michael was transferred to [facility] on 10/23/2024 for intermediate care. His was recently in the hospital and is not able to adequately assist Michael at home. He requires 28/11 supervision. Follow up was recommended with Dr. Castro from neurology for treatment for both CVA and for evaluation/tx of dementia. I suspect the behavioral issues will increase when he is transferred to a different facility. He is drowsy on the morning of DC from rehab. IF he were to stay on rehab I would decrease the Seroquel to 37.5 mg but, because I expect the behavioral issues to increase temporarily with transfer to [facility] will keep the dose at 50 mg for now. After he adjusts to his new surroundings would consider decreasing the dose to 37.5 mg. We have been giving the Seroquel at 9 PM to help with sundowning and so he will not be too sleepy in the AM to do therapy. Michael has chronic coarse crackles in the left base. CXR's show increased interstitial markings. BNP is unremarkable. I suspect he may have scarring/fibrosis in the left base. He has not been wheezing and the cough he has had for quite some time is much improved with thickening the liquids. He has been in NSR every time I have examined him on rehab. He has a 30 day event monitor at the time of DC and will need to follow up with cardiology after the monitor is removed and reviewed if there is any arrhythmia. Physical Exam Const Constitutional Narrative: Drowsy but, arouses easily when I call his name. General Appearance: cooperative HEENT head/scalp atraumatic HEENT Narrative: [place]. Has lower denture. MM are dry. No evidence of thrush. Palate elevates symmetrically. Eyes PERRL, EOMs intact bilaterally and no scleral icterus Eyes Narrative: Some DC from the eyes, swelling and redness of the lid margins.......dtr told nursing he has been seen for this and it is chronic related to a skin condition? Needs to use a cream in the edu-orbital area........she can not recall the name. Denies pain. It improved significantly with Gentamicin drops at admission to rehab and the eye culture grew Staph aureus. Neck supple, no JVD, No nodes and no carotid bruits General: trachea midline Chest Chest: symmetrical chest wall rise Resp normal respiratory effort Resp Narrative: Mild true wheeze over the anterior neck. No cough with deep breathing. Not tachypneic. Coarse crackles in the left base only....chronic. Cardio regular rate, regular rhythm, no rub and no gallops Cardio Narrative: No ectopy. 2/6 systolic murmur heard at the lower left sternal border, apex and into the left axilla. PMI is deviated medial and inferior secondary to vertical heart. GI normal to inspection, nondistended, normoactive bowel sounds, soft to palpation and non-tender GI Narrative: No guarding with palpation no CVA tenderness Narrative: Denies dysuria. Sometimes incontinent of urine. He retains urine but nothing greater than 300 cc so we have not had to straight cath him. Extremity no calf tenderness and no pedal edema Skin Rashes: no rashes Neuro Neuro Narrative: R facial droop has improved since admission to rehab and it is now mild. The palate elevates symmetrically and the tongue protrudes on the midline. No visual field cuts. PERRLA, EOMI. Intact sensation in the face. Equal shoulder shrug. He is hard of hearing. Sometimes he does not follow my verbal commands but, he is able to follow visual cues. No drift with either upper extremity. Mild tremors of both hands when he is holding his arm straight out. No ataxia with the upper extremities. Some effort against gravity with the LLE but, falls almost immediately to the bed. No drift with the RLE. Good plantar flexion BL. Some mild weakness with dorsiflexion of the left foot. Can not test for ataxia in the LLE due to weakness. Equal sensation in the UE's and the LE's. No visual or tactile extinction. Mild dysarthria.......better than at admission. Psych Psych Narrative: Good appetite. Not anxious but, he is restless, true at night. No crying. No agitation. Always pleasant and cooperative. Good sense of humor. Attitude: calm Weight / BMI Weight Weight: 139 lb 8 oz Body Mass Index (BMI) 27.3 ABG / Lab / Microbiology Data 10/16/24 06:41 10/16/24 06:41 Microbiology: Microbiology 09/29/24 09:12 Exudate Gram Stain - Final 09/29/24 09:12 Exudate Wound Culture - Final Staphylococcus aureus 09/30/24 04:43 Stool Stool Occult Blood (JOVANI) - Final Occult Blood Positive Indicators for Scoring Admitted with or Primary Diagnosis of CVA/Stroke: Yes Hx of CVA/Stroke: Yes Modified [place] Score MRS Score at time of Evaluation: 4-Moderate/severe disability NIHSS NIHSS 1a. Level of Consciousness: 1 - Not alert; Arousable by minor stimuli to obey, answer & respond (drowsy but, I suspect this is due to medication and not to stroke. ) 1b. LOC Questions: 0 - Answers BOTH questions correctly 1c. LOC Commands: 0 - Performs BOTH tasks correctly 2. Best Gaze: 0 - Normal 3. Visual: 0 - No visual loss 4. Facial Palsy: 1 - Minor paralysis (flattened nasolabial fold, asymmetry on smiling) 5a. Left Arm: 0 - No drift; arm holds 90 (or 45) degrees for full 10 seconds 5b. Right Arm: 0 - No drift; arm holds 90 (or 45) degrees for full 10 seconds 6a. Left Le - Some effort against gravity; 6b. Right Le - No drift; leg holds 30-degree position for full 5 seconds 7. Limb Ataxia: 0 - Absent 8. Sensory: 0 - Normal; no sensory loss 9. Best Language: 0 - No aphasia; normal 10. Dysarthria: 1 = [id number]-[id number] dysarthria; 11. Extinction and Inattention: 0 - No abnormality Total: 5 Stroke Questions Stroke Team Activated: No D/C Instructions DC O2, CPAP, BIPAP Needs RN Home O2 qualification: No Data to Display PSN CPAP & BiPAP: BiPAP & CPAP Settings per PSN Fraction of Inspired Oxygen ( 93 10/20/24 22:00 FIO2) Home Oxygen Instructions: Home O2 discharge Instructions Type of respiratory needs? Oxygen 10/22/24 16:49 DC Oxygen Instruction Oxygen frequency With Sleeping 10/22/24 16:49 Oxygen liters per minute when 2 10/22/24 16:49 sleeping Home O2 Discharge instructions: Yes Type of respiratory needs?: Oxygen Oxygen frequency: With Sleeping Oxygen liters per minute when sleepin DC home with Oxygen: No Please Follow Up With: Jamil Castro MD Meaningful Use Info Meaningful Use Meaningful Use Diagnoses (Choose all that apply): Ischemic CVA CVA Therapy Assessed for PT,OT and/or ST?: Yes Ischemic Stroke Antithrombotic order at d/c?: Yes Dx of Atrial fib/flutter?: No Anticoagulant at discharge?: No Reason anticoagulant not ordered: Treatment not Indicated (Has not had any documented AF. 30 day event monitor is in place at the time of transfer to [facility]. ) Statin Dosing Therapy Reference: STATIN DOSE THERAPY REFERENCE: * Patients > 75 years receive moderate or high dose statin therapy. * Patients 75 years or YOUNGER should receive HIGH intensity statin dose unless contraindicated. You will be required to document reason for non-treatment if statin daily dose does not meet guidelines. HIGH DOSE STATIN THERAPY DAILY Atorvastatin > than or = to 40 mg Rosuvastatin > than or = to 20 mg Amlodipine + Atorvastatin > than or = to 2.5/40 mg Ezetimibe + Simvastatin 10/80 mg Simvastatin 80mg Statins at discharge?: Yes Primary Dx Acute Ischemic CVA?: Yes IV thrombolytic ordered during stay?: No Reason IV thrombolytic not ordered: Procedure not Indicated Discharge Plan Admission Admit Date/Time: 09/27/24 17:26 Primary Reason for Your Visit: Debility due to R MCA ischemic CVA/pelvic fx Attending Provider: Amy Gaxiola Primary Care Provider: Nimisha Cutler Instructions Additional Instructions / Restrictions: 1. He is very impulsive and is always setting off the bed and chair alarms trying to get up by himself. He is a fall risk and not safe to get up by himself. 2. He gets more confused in the evenings and s. Very restless and not sleeping well at nights at admission to rehab. sleeping much better on Seroquel 50 mg at HS. 3. Cough is much improved with easy to chew foods and nectar thick liquids. Would repeat a MBS prior to trying to advance to thin liquids. 4. Needs to follow up with Dr. Castro for CVA and dementia. 5. 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 6. Urine retention improved while on rehab but, he still retains. PVR's are in the 200's but, has not required straight cath. Has not had any UTI's while on rehab. 7. He had a heme + stool but, HGB is stable and he denies N/V/epigastric pain and heart burn. HGB was 12.3 on 10/16/24. He was taking dual antiplatelet drugs when the hemoccult stool was obtained. He completed 21 days of dual antiplatelet agents and is now only on ASA 81 mg daily. 8. Increased mucoid DC from the eyes, R>L, on the day of DC. Grew Staph Aureus at admission to rehab and improved with gentamicin drops. Please send a culture when he arrives at [facility]. Discharge Orders/Prescriptions Prescriptions: New quetiapine 25 mg Tablet 50 mg PO 2100 Qty: 1 0RF sennosides-docusate sodium [Stimulant Laxative Plus] 8.6-50 mg Tablet 1 tab PO BID Qty: 1 0RF melatonin 3 mg Tablet 3 mg PO QHS Qty: 1 0RF tramadol 50 mg Tablet 25 mg PO Q6H PRN PRN (Reason: Pain 4-10) 7 Days Qty: 20 0RF nystatin 100,000 unit/gram Powder 1 applic topical 599,2199 Qty: 1 0RF Protocol: *Topical Application Instructions APPLICATION INSTRUCTIONS: Groin metoprolol tartrate 25 mg Tablet 25 mg PO BID Qty: 1 0RF menthol-zinc oxide [Calmoseptine] 0.44-20.6 % Ointment 1 applic topical 599,2200 Qty: 1 0RF Protocol: *Topical Application Instructions APPLICATION INSTRUCTIONS: Apply to buttock Continued tamsulosin 0.4 mg capsule 0.4 mg PO DAILY cyanocobalamin (vitamin B-12) [Vitamin B-12] 500 mcg tablet 500 mcg PO DAILY atorvastatin 40 mg Tablet 40 mg PO QHS Qty: 0 0RF acetaminophen 500 mg Tablet 1,000 mg PO Q8 Qty: 0 0RF lisinopril 10 mg Tablet 10 mg PO DAILY Qty: 0 0RF aspirin 81 mg Tablet,Chewable 81 mg PO DAILYCM Qty: 0 0RF ergocalciferol (vitamin D2) [Vitamin D2] 1,250 mcg (50,000 unit) Capsule 1,250 mcg PO Q7D@1000 Qty: 0 0RF Ensure Plus High Protein 0.08 gram-1.5 kcal/mL Liquid 120 ml PO 4X/DAY Qty: 0 0RF Discontinued meclizine 25 mg tablet 25 mg PO TID PRN PRN (Reason: dizziness or vertigo) acetaminophen 500 mg Tablet 1,000 mg PO Q6H PRN PRN (Reason: Pain Score 1-10) Qty: 0 0RF sennosides-docusate sodium [Stimulant Laxative Plus] 8.6-50 mg Tablet 2 tab PO BID Qty: 0 0RF clopidogrel 75 mg Tablet 75 mg PO DAILY Qty: 0 0RF heparin (porcine) 5,000 unit/mL Solution 5,000 unit subcut Q12 Qty: 0 0RF metoprolol tartrate 25 mg Tablet 25 mg PO BID Qty: 0 0RF melatonin 10 mg Tablet, Sublingual 10 mg PO QHS Qty: 0 0RF No Action omeprazole 20 MG capsule 40 mg PO DAILY Patient Comments: acid reflux Referrals / Follow Up: Nimisha Cutler MD [Primary Care Provider] - Disposition Disposition (needs filled in before D/C Order can be placed): NonSkilled NH/Intermed Care Charges/Coding Visit Charges Inpatient E&M: 66389 Disch Hosp >30min
[2024-10-22 18:28] VITALS: BP 113/62; PULSE 73; RESP 17; TEMP 37.1; O2SAT 94
[2024-10-22] MEDS: Atorvastatin Calcium 40 MG Tablet PO (20:49)
[2024-10-22] MEDS: MELATONIN 3 MG TABLET PO (20:49)
[2024-10-22 20:52] VITALS: BP 115/68; PULSE 89; O2SAT 96
[2024-10-22 20:53] VITALS: BP 115/68; PULSE 89
[2024-10-22] MEDS: QUEtiapine 25 MG Tablet 50 MG PO (20:53)
[2024-10-22 21:06] VITALS: O2SAT 96
[2024-10-23 02:35] VITALS: BMI 27.3
[2024-10-23] MEDS: Nystatin Powder 15gm Bottle 1 APPLIC TOPICAL (05:02)
[2024-10-23] MEDS: Menthol/Lanolin/Calamine/Znox 113 GM Tube 1 APPLIC TOPICAL (05:02)
[2024-10-23 06:00] VITALS: BP 106/86; PULSE 83; RESP 18; TEMP 36.6; O2SAT 93; BMI 26.2
[2024-10-23] MEDS: Lisinopril 10 MG Tablet PO (08:06)
[2024-10-23] MEDS: Senna/Docusate Sodium 1 Tablet PO (08:06)
[2024-10-23] MEDS: Cyanocobalamin 500 MCG Tablet PO (08:06)
[2024-10-23 08:07] VITALS: PULSE 83
[2024-10-23] MEDS: Ensure Plus High Protein 120 ML LIQUID PO (08:07)
[2024-10-23] MEDS: Pantoprazole Sodium 40 MG Tablet PO (08:07)
[2024-10-23] MEDS: Heparin Injection (Vial) 5,000 UNIT/ML VIAL 5000 UNIT SC (08:07)
[2024-10-23] MEDS: Tamsulosin HCl 0.4 MG Capsule PO (08:07)
[2024-10-23] MEDS: Aspirin 81 MG TAB.CHEW PO (08:07)
[2024-10-23] MEDS: Metoprolol Tartrate 25 MG Tablet PO (08:07)
--- NOTE | 2024-10-23 12:52 | CASEMGMT ---
Social Work Per physician, pt is ready for discharge today and pt has been accepted at [facility]. PASRR completed in [facility]. Discharge orders sent to [facility]. [facility] arranged with [facility] for 3:00 poultry picker via cot. Phone call to pt son Jorge L and updated on discharge plan and Jorge L is agreeable. Jorge L states that pt's and dgt are coming in to tell pt about discharge and he will notify them of poultry picker time. Nursing and CC updated on DC time. Disposition: [facility], intermediate level of care, private pay ALDEN Godinez
--- NOTE | 2024-10-23 15:20 | NURSING ---
discharged [facility]. report called to Dariana.
[2024-10-23 15:24] VITALS: BMI 26.2
[2024-10-23 15:25] VITALS: BP 110/84; PULSE 80; RESP 18; TEMP 36.6; O2SAT 94
== END 2024-10-23 15:00 | disposition intermediate care facility (04) | DRG 57 ==
PROVIDERS: Admitting Provider Internal Medicine; PCP Internal Medicine; Referring Provider Internal Medicine; Visit Provider Internal Medicine
DX: I69.344 Monoplegia of lower limb following cerebral infarction affecting left non-dominant side (principal); T17.408A Unspecified foreign body in trachea causing other injury, initial encounter; F02.818 Dementia in other diseases classified elsewhere, unspecified severity, with other behavioral disturbance; N13.8 Other obstructive and reflux uropathy; I69.322 Dysarthria following cerebral infarction; I69.392 Facial weakness following cerebral infarction; K22.2 Esophageal obstruction; D72.10 Eosinophilia, unspecified; Z66 Do not resuscitate; G40.909 Epilepsy, unspecified, not intractable, without status epilepticus; I10 Essential (primary) hypertension; F32.A Depression, unspecified; J45.909 Unspecified asthma, uncomplicated; I35.0 Nonrheumatic aortic (valve) stenosis; G30.9 Alzheimer's disease, unspecified; K21.9 Gastro-esophageal reflux disease without esophagitis; E78.5 Hyperlipidemia, unspecified; J20.9 Acute bronchitis, unspecified; D72.829 Elevated white blood cell count, unspecified; W19.XXXD Unspecified fall, subsequent encounter; R26.2 Difficulty in walking, not elsewhere classified; E55.9 Vitamin D deficiency, unspecified; M19.90 Unspecified osteoarthritis, unspecified site; H10.32 Unspecified acute conjunctivitis, left eye; S32.592D Other specified fracture of left pubis, subsequent encounter for fracture with routine healing; B95.61 Methicillin susceptible Staphylococcus aureus infection as the cause of diseases classified elsewhere; R33.8 Other retention of urine; H91.90 Unspecified hearing loss, unspecified ear; Z79.82 Long term (current) use of aspirin; R29.898 Other symptoms and signs involving the musculoskeletal system; N40.0 Benign prostatic hyperplasia without lower urinary tract symptoms; R79.89 Other specified abnormal findings of blood chemistry; R47.1 Dysarthria and anarthria; Z87.891 Personal history of nicotine dependence; N40.1 Benign prostatic hyperplasia with lower urinary tract symptoms; Z79.899 Other long term (current) drug therapy; Y92.009 Unspecified place in unspecified non-institutional (private) residence as the place of occurrence of the external cause; R13.12 Dysphagia, oropharyngeal phase
CPT/HCPCS: 36415; 70551; 71046; 72192; 73502; 74230; 80048; 80053; 80061; 81001; 82274; 82306; 82607; 83036; 83735; 83880; 84100; 84439; 84443; 84481; 85025; 85027; 87070; 87077; 87186; 87205; 92507; 92523; 92526; 92610; 92611; 93005; 93306; 93880; 94640; 94668; 94762; 96360; 96372; 97110; 97112; 97116; 97129; 97130; 97140; 97162; 97166; 97167; 97530; 97535; 97542; 97802; 99221; 99285; A4216; G0378

== ENCOUNTER 2024-11-02 07:19 | Emergency (ER) | payer MEDICARE, SELFPAY ==
[2024-11-02 07:20] VITALS: BP 137/67; PULSE 78; RESP 18; TEMP 36.9; O2SAT 95; BMI 28.0
--- NOTE | 2024-11-02 07:29 | ED.VIS.FALL ---
HPI HPI - Fall History of Present Illness Chief Complaint: Fall Informant: family Occured/Mechanism Occurred: Today Mechanism/Context: Yes same level fall Pain/Injury Pain Location: head, chest and back Quality of Pain: Aching Worsened by: Nothing Relieved by: Nothing Associated Symptoms Associated Symptoms: Negative for Parasthesias, Weakness or Loss of consciousness Narrative Narrative: Patient presents after a fall that occurred today. Patient fell twice at shelter today. Patient fell in the bathroom earlier this morning. Patient had no injuries at that time and was helped back to bed. Patient was sitting in a chair in front of the nurses station when he fell forward and hit his head. custodial denies any loss of consciousness. Patient admits to a laceration to his forehead. Patient denies any paresthesias or weakness. Patient also admits to some right upper chest pain. Patient denies any shortness of breath. Patient denies any nausea or vomiting. [facility] Medical History Presbycusis GERD (gastroesophageal reflux disease) Mild aortic stenosis Urinary retention Acute ischemic right MCA stroke Fall Esophageal stenosis Esophageal foreign body Tobacco dependence in remission Dyslipidemia Vitamin D deficiency History of esophageal dilatation BPH (benign prostatic hyperplasia) Essential (primary) hypertension Seizure disorder Urinary tract infection Dehydration Acute kidney injury Acute encephalopathy Debility Home Medications ?Medication ?Instructions ?Recorded ?Last Taken ?Type omeprazole 20 mg capsule,delayed 40 mg PO DAILY GERD 01/02/16 09/27/24 History release cyanocobalamin (vitamin B-12) 500 500 mcg PO DAILY Supplement 03/05/24 09/27/24 History mcg tablet (Vitamin B-12) tamsulosin 0.4 mg capsule 0.4 mg PO DAILY Bladder 03/05/24 09/27/24 History acetaminophen 500 mg tablet 1,000 mg (2 x 500 mg) PO Q8 pain 09/27/24 09/27/24 Rx #0 tabs aspirin 81 mg chewable tablet 81 mg PO DAILYCM Heart health #0 09/27/24 09/27/24 Rx tabs atorvastatin 40 mg tablet 40 mg PO QHS cholestrol #0 tabs 09/27/24 09/26/24 Rx ergocalciferol (vitamin D2) 1,250 1,250 mcg PO Q7D@1000 supplement 09/27/24 09/26/24 Rx mcg (50,000 unit) capsule (Vitamin #0 caps D2) food supplemt, lactose-reduced 120 ml PO 4X/DAY supplement #0 mL 09/27/24 09/27/24 Rx 0.08 gram-1.5 kcal/mL oral liquid (Ensure Plus High Protein) lisinopril 10 mg tablet 10 mg PO DAILY BP #0 tabs 09/27/24 09/27/24 Rx melatonin 3 mg tablet 3 mg PO QHS #1 TAB 10/22/24 Unknown Rx menthol 0.44 %-zinc oxide 20.6 % 1 applic topical 0600,2200 #1 g 10/22/24 Unknown Rx topical ointment (Calmoseptine) metoprolol tartrate 25 mg tablet 25 mg PO BID #1 TAB 10/22/24 Unknown Rx nystatin 100,000 unit/gram topical 1 applic topical 0600,2200 #1 g 10/22/24 Unknown Rx powder quetiapine 25 mg tablet 50 mg (2 x 25 mg) PO 2100 #1 TAB 10/22/24 Unknown Rx sennosides 8.6 mg-docusate sodium 1 tab PO BID #1 TAB 10/22/24 Unknown Rx 50 mg tablet (Stimulant Laxative Plus) tramadol 50 mg tablet 25 mg (1/2 x 50 mg) PO Q6H PRN PRN 10/22/24 Unknown Rx Pain 4-10 1 week #20 tabs Allergy/AdvReac Type Severity Reaction Status Date / Time egg Allergy Anaphylaxis Verified 11/02/24 07:20 Family History Mother Colon cancer Father Cancer Surgical History History of colectomy History of left inguinal hernia repair History of esophagogastroduodenoscopy (EGD) Social History household members: spouse and other details: 's name is Dexter housing: house number of children: 6 Smoking Status: Former smoker how long ago did patient quit smokin years ago alcohol intake: never substance use type: does not use ROS ROS ED Constitutional Constitutional ED: Denies chills or fever(s) ENT ENT ED: Denies rhinorrhea Cardiovascular Cardiovascular: Denies chest pain Respiratory/Chest Respiratory/Chest: Denies cough or dyspnea Gastrointestinal Gastrointestinal: Denies nausea or vomiting Musculoskeletal Musculoskeletal: Reports back pain; Denies neck pain Integumentary Denies abscess or rash Neurologic Neurologic: Reports headache(s) Allergic/Immunologic Allergic/Immunologic ED: Denies mouth swelling or urticaria EXAM Physical Exam Const Vital Signs: 11/02/24 07:20 11/02/24 07:24 Temperature 98.5 F Temperature Source Oral Pulse Rate 78 Respiratory Rate 18 Respiratory Effort Normal Respiratory Depth Normal Respiratory Pattern Normal Blood Pressure 137/67 H Blood Pressure Mean 90 Pulse Ox 95 Oxygen Delivery Method Room Air Positive well nourished and well developed General Appearance ED: well developed and NAD HEENT HEENT Narrative: There is a 1 cm superficial linear laceration above the right eyebrow. There is no active bleeding noted. There is no bony crepitance or step-off. There is a small hematoma of the right frontal area. There is no bony crepitance or step-off. Eyes PERRL and EOMs intact bilaterally Neck full ROM and supple Neck Narrative: There is mild tenderness of the cervical spine paraspinal muscles. There is no bony crepitance or step-off. There is good range of motion. Chest Wall Chest Narrative: There is tenderness to palpation over the right lateral ribs. There is no bony crepitance or step-off. There is no subcutaneous emphysema palpated. Resp normal respiratory effort and clear to auscultation bilaterally Cardio regular rate and regular rhythm GI non-tender and non-distended Palpation: soft Neuro CN's II-XII intact bilaterally, moves all extremities, no focal motor deficits and no sensory deficits noted Sensorium / Orientation: alert Motor Exam: strength 5/5 throughout Psych mental status grossly normal MDM MDM MDM Narrative Medical decision making narrative: Differential diagnosis includes intracranial bleeding, cranial fracture, cervical spine fracture, cervical strain, rib fracture, and chest wall contusion. CT scan of the brain will be obtained to assess for intracranial bleeding and cranial fracture. CT scan of the cervical spine will be obtained to assess for cervical spine fracture and spondylolisthesis. X-rays of the right ribs will be obtained to assess for fracture and pneumothorax. Radiography Diagnostic Testing: CT scan of the brain was obtained. There is no acute intracranial abnormality. There are chronic changes noted. This was interpreted by the radiologist and was also independently reviewed by myself. CT scan of the cervical spine was obtained. There is no acute fracture or spondylolisthesis. There are some degenerative changes noted. There is no soft tissue swelling. This was interpreted by the radiologist and was also independently reviewed by myself. X-rays of the right ribs were obtained. There are 5 views. On my independent interpretation, there is no acute fracture. There is no pneumothorax noted. Radiologist also interpreted the x-rays and agrees. Treatment and Re-Evaluation Narrative: Patient and family were apprised of the findings. Patient was instructed to take Tylenol as needed for any pain. There was a Steri-Strip over the wound over the right eyebrow. This was left in place. There is good hemostasis. There is no bleeding noted. Patient was instructed to leave this on until it falls off on its own. Patient will be discharged back to the extended care facility. Patient and family understand and are agreeable with the plan. All questions were answered. Discharge Plan Triage Chief Complaint: Fall ED Provider: Kemal Elkins Dx/Rx/DC Orders Clinical Impression: Closed head injury, Forehead laceration, Fall Instructions: ED Head Injury (Adult) Prescriptions: No Action omeprazole 20 MG capsule 40 mg PO DAILY Patient Comments: acid reflux tamsulosin 0.4 mg capsule 0.4 mg PO DAILY cyanocobalamin (vitamin B-12) [Vitamin B-12] 500 mcg tablet 500 mcg PO DAILY atorvastatin 40 mg Tablet 40 mg PO QHS Qty: 0 0RF acetaminophen 500 mg Tablet 1,000 mg PO Q8 Qty: 0 0RF lisinopril 10 mg Tablet 10 mg PO DAILY Qty: 0 0RF aspirin 81 mg Tablet,Chewable 81 mg PO DAILYCM Qty: 0 0RF ergocalciferol (vitamin D2) [Vitamin D2] 1,250 mcg (50,000 unit) Capsule 1,250 mcg PO Q7D@1000 Qty: 0 0RF Ensure Plus High Protein 0.08 gram-1.5 kcal/mL Liquid 120 ml PO 4X/DAY Qty: 0 0RF quetiapine 25 mg Tablet 50 mg PO 2100 Qty: 1 0RF sennosides-docusate sodium [Stimulant Laxative Plus] 8.6-50 mg Tablet 1 tab PO BID Qty: 1 0RF melatonin 3 mg Tablet 3 mg PO QHS Qty: 1 0RF tramadol 50 mg Tablet 25 mg PO Q6H PRN PRN (Reason: Pain 4-10) 7 Days Qty: 20 0RF nystatin 100,000 unit/gram Powder 1 applic topical 599,2199 Qty: 1 0RF Protocol: *Topical Application Instructions APPLICATION INSTRUCTIONS: Groin metoprolol tartrate 25 mg Tablet 25 mg PO BID Qty: 1 0RF menthol-zinc oxide [Calmoseptine] 0.44-20.6 % Ointment 1 applic topical Qty: 1 0RF Protocol: *Topical Application Instructions APPLICATION INSTRUCTIONS: Apply to buttock Primary Care Provider: Nimisha Cutler Referrals: Nimisha Cutler MD [Primary Care Provider] - 5-7 Days Print Language: Brazilian Disposition Disposition: Home, Self Care
--- OUTSIDE RECORDS SUMMARY | 2024-11-02 07:48 | XMS RPT_ITS | CCD ---
Author Organization [facility] Care Team Providers Care Alterations Supervisor Name Role Phone Chery Whitley LPN Unavailable Unavailable Chery Whitley LPN Unavailable Unavailable Daniel Perez MD Primary Care Provider [phone] CRISELDA RM Attending Unavailable PEREZ, DANIEL Arabella Primary Care Unavailable PEREZ, DANIEL B Admitting Unavailable PEREZ, DANIEL B Attending Unavailable CRISELDA RM Referring Unavailable PEREZ, DANIEL Arabella Primary Care Unavailable PEREZ, DANIEL B Primary Care Unavailable PEREZ, DANIEL B Admitting Unavailable PEREZ, DANIEL B Attending Unavailable ALEXANDER REYES Consulting Unavailable Nimisha Oseguera MD Primary Care Provider NIMISHA OSEGUERA Attending Unavailable NIMISHA OSEGUERA Primary Care Unavailable NIMISHA OSEGUERA Attending Unavailable NIMISHA OSEGUERA Primary Care Unavailable BISI, JACQUELINE T Referring Unavailable PEREZ, DANIEL B Primary Care Unavailable PEREZ, DANIEL B Primary Care Unavailable PEREZ, DANIEL B Primary Care Unavailable FABRICIO HALL Attending Unavailable PEREZ, DANIEL B Primary Care Unavailable MARY LYNN Referring Unavailable PEREZ, DANIEL B Primary Care Unavailable MARY LYNN Referring Unavailable PEREZ, DANIEL B Primary Care Unavailable BISI, JACQUELINE T Referring Unavailable PEREZ, DANIEL B Primary Care Unavailable BISI, JACQUELINE T Attending Unavailable BISI, JACQUELINE T Referring Unavailable PEREZ, DANIEL B Primary Care Unavailable BISI, JACQUELINE T Attending Unavailable PEREZ, DANIEL B Primary Care Unavailable BONNIETA, NIMISHA Primary Care Unavailable NIMISHA OSEGUERA Referring Unavailable Dunia MEDINA, Dr. Carrillo Emergency Provider [phone] Nimisha Oseguera MD Primary Care Provider Vizcaino DO, Dr. Carrillo Admit Provider Unavail able Vizcaino DO, Dr. Carrillo Attending Provider Unav ailable Vizcaino DO, Dr. Carrillo Other Provider Unavail able Yevgeniy DO, Dr. Matute Attending Provider Yevgeniy MEDINA, Dr. Matute Other Provider April RAYMOND, Dr. Sommer Attending Provider Yevgeniy MEDINA, Dr. Matute Referring Provider Juanita RAYMOND, Dr. Shin Attending Provider Orly RAYMOND, Willard Other Provider Unavailable Declan RAYMOND, Dr. Mac Other Provider Radha Lewis MD Other Provider Unavailable Martín MEDINA, Dr. Brown Other Provider Eder RAYMOND, Dr. Pro Other Provider Janette RAYMOND, Dr. Ronquillo Other Provider Leonardo RAYMOND, Dr. Umana Other Provider Arnulfo RAYMOND, Dr. Arevalo Other Provider Mayito RAYMOND, Dr. Zuluaga Other Provider Cesar RAYMOND, Dr. Pollard Other Provider Patti RAYMOND, Trang Other Provider Jeannette RAYMOND, Dr. Bergeron Other Provider Leroy RAYMOND, Dr. Zuluaga Other Provider Crystal RAYMOND, Dr. Almaraz Other Provider Chuck RAYMOND, Dr. William Jensen Other Provider Arsalan RAYMOND, Dr. Myers Other Provider Sallie RAYMOND, Dr. Mathews Other Provider Shalonda RAYMOND, Dr. Lomeli Other Provider Yevgeniy RAYMOND, Dr. Gutierrez Other Provider Unavailable Jamshid RAYMOND, Yousef Other Provider Unavailable Semenvicky MEDINA, Dr. Shay Porter Admit Provider Semenvicky MEDINA, Dr. Shay Porter Attending Provide r Semenvicky MEDINA, Dr. Shay Porter Referring Provide r Semenvicky DO, Dr. Shay Porter Other Provider Jerri RAYMOND, Dr. Irizarry Attending Provider Kemal Chen Attending Unavailable Juju Vuong Referring Unavailable [facility] Unavailable Gerardo Vizcaino Attending Unavailable Gerardo Vizcaino Consulting Unavailable Gerardo Vizcaino Admitting Unavailable [facility] Unavailable Sementi, Shay Porter Consulting Unavaila ble Sementi, Shay Porter Admitting Unavaila ble Sementi, Shay Porter Referring Unavaila ble Sementi, Shay Porter Attending Unavaila ble Tan, Darius Chi Admitting Unavailable Tan, Darius Chi Referring Unavailable Tan, Darius Chi Attending Unavailable [facility] Unavailable [facility] Unavailable Sementi, Shay Porter Admitting Unavaila ble Sementi, Shay Porter Attending Unavaila ble Sementi, Shay Porter Referring Unavaila ble [facility] Care Unavailable Sementi, Shay Porter Referring Unavaila ble Juan C Guthrie Attending Unavailable [facility] Care Unavailable Sementi, Shay Porter Referring Unavaila ble Juan C Guthrie Attending Unavailable Juju Vuong Attending Unavailable Juju Vuong Consulting Unavailable Willard Villalba Consulting Unavailable Adeli, Amir Consulting Unavailable Hinduja, Radha Consulting Unavailable Martín Stephanie Consulting Unavailable Zha, Inocencia Consulting Unavailable Janette, Yg Consulting Unavailable Leonardo, Lyndsay Consulting Unavailable BitMickey arzate Consulting Unavailable Zan Edmond Consulting Unavailable Atul Guerrero Consulting Unavailable Trang Armstrong Consulting Unavailable Garrett Machado Consulting Unavailable Margareth Harper Consulting Unavailable Ridha, Rufina Consulting Unavailable Zaghlouleh, Mhd Mikey Consulting UnavailLouis Tavares Consulting Unavailable Rizo, Rami Consulting Unavailable Armani Liz Consulting Unavailable Brenda Vuong Consulting Unavailable Crow Breen Consulting Unavailable [facility] Unavailable Matthew Chavarria Attending Unavailable Sementi, Shay Porter Referring [facility] Tan, Darius Chi Referring Unavailable Tan, Darius Chi Attending Unavailable Ganta, Nimisha Primary Care Unavailable Gerardo Vizcaino Consulting Unavailable Gerardo Vizcaino Admitting Unavailable Juju Vuong Attending Unavailable Kip Grant Attending UnavailNimisha Garcia Primary Care Unavailable Allergies Allergy Classification Reported Allergen(s) Allergy Type Date of Onset Reaction(s) Facility (2 sources) cat dander extract; Translations: [CAT DANDER] allergy to substance 7 [facility] Work Phone: (2 sources) egg; Translations: [EGGS] food allergy 7 [facility] Work Phone: (20 sources) egg extract; Translations: [EGG] Drug Allergy 6 Hives, Shortness of Breath [facility] (1 source) egg extract Drug Allergy 5 [facility] Medications Current Medications Medication Drug Class(es) Dates Sig (Normalized) Sig (Original) acetaminophen 500 mg oral tablet (3 sources) Start: 09-27-2024 take 2 tablets by mouth every eight hours Acetaminophen 500 mg Tablet Active 1000 mg PO EVERY 8 HOURS 0 September 27, 2024 12:00am Start: 03-11-2024 End: 10-22-2024 take 2 tablets by mouth every six hours as needed for pain Acetaminophen 500 mg Tablet Discontinued 1000 mg PO EVERY 6 HOURS NEEDED as needed for Pain Score 1-10 0 March 11, 2024 1:00am October 22, 2024 4:57pm On Hold: Until restarted aspirin 81 mg chewable tablet (1 source) Platelet Aggregation Inhibitor, Nonsteroidal Anti-inflammatory Drug Start: 09-27-2024 take 1 tablet by mouth once daily at mealtime Aspirin 81 mg Tablet,Chewable Active 81 mg PO DAILY WITH MEALS 0 September 27, 2024 12:00am atorvastatin 40 mg oral tablet (1 source) HMG-CoA Reductase Inhibitor Start: 09-27-2024 take 1 tablet by mouth at bedtime Atorvastatin 40 mg Tablet Active 40 mg PO AT BEDTIME 0 September 27, 2024 12:00am cyanocobalamin, vitamin B-12, (VITAMIN B-12 ORAL) (17 sources) Start: 11-10-2016 cyanocobalamin, vitamin B-12, (VITAMIN B-12 ORAL) B-12 CAPS 11/10/2016 Suspended Start: 11-10-2016 cyanocobalamin , vitamin B-12, (VITAMIN B-12 ORAL) B-12 CAPS 11/10/2016 Active Start: 11-10-2016 cyanocobalamin , vitamin B-12, (VITAMIN B-12 ORAL) B-12 CAPS 0 11/10/2016 Active docusate sodium 50 mg / sennosides, correction 8.6 mg oral tablet (2 sources) Start: 09-27-2024 End: 10-22-2024 Sennosides-Docusate Sodium (Stimulant Laxative Plus) 8.6-50 mg Tablet Active 1 {tbl} PO TWICE A DAY October 22, 2024 12:00am ergocalciferol 1.25 mg oral capsule (1 source) Provitamin D2 Compound Start: 09-27-2024 Ergocalciferol (Layne min D2) (Vitamin D2) 1,250 mcg (50,000 unit) Capsule Active 1250 ug PO Q7D@1000 0 September 27, 2024 12:00am ferrous sulfate (6 sources) ferrous sulfate (IRON ORAL) Take by mouth. Active ferrous sulfate (IRON ORAL) Take by mouth. 0 Active Food Supplemt, Lactose-Reduc ed (Ensure Plus High Protein) 0.08 gram-1.5 kcal/mL Liquid (1 source) Start: 09-27-2024 Food Supplemt, Lactose-Reduced (Ensure Plus High Protein) 0.08 gram-1.5 kcal/mL Liquid Active 120 mL PO 4 TIMES DAILY 0 September 27, 2024 12:00am ibwx-QS-jvy-sxf-XBC-OVFE-be- mv 1.5 mg iron- 8.73 mg CpID (6 sources) honj-AZ-vcv-epa- SCH-YKCI-fb-mv 1.5 mg iron- 8.73 mg CpID Take by mouth. Active jmbo-BH-hna-epa- OYU-EBBT-eg-mv 1.5 mg iron- 8.73 mg CpID Take by mouth. 0 Active lisinopril 10 mg oral tablet (20 sources) Angiotensin Converting Enzyme Inhibitor Start: 09-27-2024 take 1 tablet by mouth once daily Lisinopril 10 mg Tablet Active 10 mg PO DAILY 0 September 27, 2024 12:00am Start: 01-22-2024 End: 09-25-2024 take 1 tablet by mouth once daily Lisinopril 10 mg tablet Discontinued 10 mg PO DAILY March 05, 2024 12:00am September 25, 2024 12:52am Start: 01-22-2024 End: 01-22-2024 take 4 tablets by mouth once daily, then take 0.5 tablet by mouth once daily lisinopril 2.5 mg tablet Take 4 tablets by mouth once daily. Pt take .5 tablets once daily 30 tablet 3 01/22/2024 01/22/2024 Discontinued (Course of therapy completed) Start: 11-10-2016 LISINOPRIL TAB S take as directed LISINOPRIL TABS [id number] Chery Whitley LPN Start: 01-03-2016 End: 03-11-2024 take 1 tablet by mouth once daily Lisinopril 5 MG tablet Discontinued 5 mg PO DAILY January 03, 2016 12:00am March 11, 2024 6:19pm End: 01-22-2024 take 0.5 tablet by mouth once daily lisinopril 2.5 mg tablet Take 5 mg by mouth once daily. Pt take .5 tablets once daily 01/22/2024 Discontinued melatonin 3 mg oral tablet (2 sources) Start: 10-22-2024 take 1 tablet by mouth at bedtime Melatonin 3 mg Tablet Active 3 mg PO AT BEDTIME October 22, 2024 12:00am Start: 09-27-2024 End: 10-22-2024 take 1 tablet by mouth at bedtime Melatonin 10 mg Tablet, Sublingual Discontinued 10 mg PO AT BEDTIME 0 September 27, 2024 12:00am October 22, 2024 4:59pm Menthol / Zinc Oxide (1 source) Start: 10-22-2024 Menthol-Zinc O xide (Calmoseptine) 0.44-20.6 % Ointment Active 1 NMA TOPICAL 0600,2200 October 22, 2024 12:00am Please contact the information source for Protocol details. metoprolol tartrate 25 mg oral tablet (2 sources) beta-Adrenergic Tj Start: 09-27-2024 End: 10-22-2024 take 1 tablet by mouth twice daily Metoprolol Tartrate 25 mg Tablet Active 25 mg PO TWICE A DAY October 22, 2024 12:00am nystatin 100 unt/mg topical powder (1 source) Polyene Antifungal Start: 10-22-2024 Nystatin 100,000 unit/gram Powder Active 1 NMA TOPICAL 0600,2200 October 22, 2024 12:00am Please contact the information source for Protocol details. omeprazole 20 mg delayed release oral capsule (20 sources) Proton Pump Inhibitor Start: 11-10-2016 [facility] OMEPR[facility] take as directed OMEPRAZOLE TBEC [id number] Chery Whitley LPN Start: 01-02-2016 take 2 capsules by m outh once daily Omeprazole 20 MG capsule Active 40 mg PO DAILY January 02, 2016 12:00am Start: 01-02-2016 take 1 capsule by mo uth once daily before breakfast omeprazole (PRILOSEC) 20 mg capsule Take 1 capsule by mouth daily before breakfast. 1/2 hr before meal. 90 capsule 3 09/02/2024 Active take 20 mg by mouth once daily in the morning OMEPRAZOLE (PRILOSEC ORAL) Take 20 mg by mouth daily at 6 am. Active OMEPRAZOLE (PRIL OSEC ORAL) Take by mouth. Active OMEPRAZOLE (PRIL OSEC ORAL) Take by mouth. 0 Active QUEtiapine 25 mg oral tablet (1 source) Atypical Antipsychotic Start: 10-22-2024 Quetiapine 25 mg Tablet Active 50 mg PO 2099 05October 22, 2024 12:00am tamsulosin hydrochloride 0.4 mg oral capsule (20 sources) alpha-Adrenergic Tj Start: 09-25-2023 End: 09-02-2024 take 1 capsule by mouth once daily Tamsulosin 0.4 mg capsule Active 0.4 mg PO DAILY March 05, 2024 12:00am traMADol hydrochloride 50 mg oral tablet (1 source) Opioid Agonist Start: 10-22-2024 Tramadol 50 mg Tablet Active 25 mg PO EVERY 6 HOURS NEEDED as needed for Pain 4-10 20 7 October 22, 2024 12:00am vitamin B 12 (4 sources) Vitamin B12 Start: 03-05-2024 take 1 tablet by mouth once daily Cyanocobalamin (Vitamin B-12) (Vitamin B-12) 500 mcg tablet Active 500 ug PO DAILY March 05, 2024 12:00am Start: 11-10-2016 B-12 CAPS take as directed CYANOCOBALAMIN CAPS [id number] Chery Whitley LPN Completed/Discontinued Medications Medication Drug Class(es) Dates Sig (Normalized) Sig (Original) ciprofloxacin 500 mg oral tablet (1 source) Quinolone Antimicrobial Start: 02-24-2024 End: 02-29-2024 take 1 tablet by mouth twice daily ciprofloxacin HCl (CIPRO) 500 mg tablet Take 1 tablet by mouth two times a day for 5 days. 10 tablet 02/24/2024 02/29/2024 Suspended clopidogrel 75 mg oral tablet (1 source) P2Y12 Platelet Inhibitor Start: 09-27-2024 End: 10-22-2024 take 1 tablet by mouth once daily Clopidogrel 75 mg Tablet Discontinued 75 mg PO DAILY 0 September 27, 2024 12:00am October 22, 2024 4:57pm heparin sodium, porcine 5000 unt/ml injectable solution (1 source) Unfractionated Heparin, Anti-coagulant Start: 09-27-2024 End: 10-22-2024 Heparin (Porcine) 5,000 unit/mL Solution Discontinued 5000 U SC EVERY 12 HOURS 0 September 27, 2024 12:00am October 22, 2024 4:58pm levETIRAcetam 500 mg oral tablet (9 sources) Start: 03-01-2024 End: 09-02-2024 take 1 tablet by mouth twice daily Levetiracetam 500 mg tablet Discontinued 500 mg PO TWICE A DAY March 05, 2024 12:00am March 11, 2024 6:19pm meclizine hydrochloride 25 mg oral tablet (9 sources) Antiemetic Start: 02-24-2024 End: 10-22-2024 take 1 tablet by mouth three times daily as needed for dizziness Meclizine 25 mg tablet Discontinued 25 mg PO 3 TIMES DAILY NEEDED as needed for dizziness or vertigo March 05, 2024 12:00am October 22, 2024 4:59pm naproxen sod/diphenhydramine (ALEVE PM ORAL) (7 sources) End: 09-02-2024 naproxen sod/diphenhydramin e (ALEVE PM ORAL) Take 2 tablets by mouth as needed (pain). 09/02/2024 Discontinued (Discontinued by Patient) naproxen sod/dip henhydramine (ALEVE PM ORAL) Take 2 tablets by mouth as needed (pain). Active naproxen sod/dip henhydramine (ALEVE PM ORAL) Take 2 tablets by mouth as needed (pain). Suspended OMEPRAZOLE TBEC (1 source) Start: 11-10-2016 [facility] take as directed OMEPRAZOLE TBEC [id number] Chery Whitley TRESTLEMAN Problems Active Problems Problem Classification Problem Date Documented Da te Episodic/Chronic Acute and unspecified renal failure (14 sources) Acute renal failure syndrome; Translations: [Acute kidney failure, unspecified] Onset: 4 02-26-2024 Episodic Acute bronchitis (3 sources) Acute bronchitis; Translations: [Acute bronchitis, unspecified] Onset: 5 10-22-2024 Episodic Comment on above: suspect this may be due to recurrent esophageal stenosis with reflux into the trachea. 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 N ot on any inhalers at the time of admission for stroke September 2024 Delirium, dementia, and amnestic and other cognitive disorders (5 sources) Dementia with behavioral disturbance; Translations: [Dementia with behavioral disturbance] Onset: 5 10-22-2024 Chronic Diseases of white blood cells (17 sources) Leukocytosis; Translations: [Elevated white blood cell count, unspecified] Onset: 4 02-26-2024 Chronic Disorders of lipid metabolism (3 sources) Dyslipidemia; Translations: [Hyperlipidemia, unspecified] Onset: 5 09-28-2024 Chronic E Codes: Fall (6 sources) Fall; Translations: [Unspecified fall, initial encounter] Onset: 5 09-24-2024 Episodic Epilepsy; convulsions (5 sources) Seizure disorder; Translations: [Epilepsy, unspecified, not intractable, without status epilepticus] Onset: 4 03-05-2024 Chronic Comment on above: Not on an antiepilep tic? Esophageal disorders (20 sources) Gastroesophageal reflux disease; Translations: [Gastro-esophageal reflux disease without esophagitis] Onset: 8 07-24-2017 Chronic Essential hypertension (20 sources) Hypertensive disorder; Translations: [Essential hypertension] Onset: 8 11-10-2016 Chronic Fever of unknown origin (3 sources) Fever; Translations: [Fever, unspecified] Onset: 5 10-22-2024 Episodic Comment on above: Infectious W/U negat kev. Fluid and electrolyte disorders (2 sources) Dehydration; Translations: [Dehydration] 03-19-2024 Episodic Genitourinary symptoms and ill-defined conditions (17 sources) Urge incontinence of urine; Translations: [Dribbling of urine] Onset: 4 09-19-2024 Chronic Genitourinary symptoms and ill-defined conditions (20 sources) Mgfhe-hu-vxcudqa retention of urine; Translations: [Retention of urine, unspecified] Onset: 4 02-26-2024 Episodic Comment on above: minimal....this is n ew. May even be due to the straight catheterization. Heart valve disorders (20 sources) Aortic stenosis, non-rheumatic ; Translations: [Nonrheumatic aortic (valve) stenosis] Onset: 4 01-22-2024 Chronic Hyperplasia of prostate (20 sources) Benign prostatic hyperplasia; Translations: [Benign prostatic hyperplasia without lower urinary tract symptoms] Onset: 4 11-10-2023 Chronic Inflammation; infection of eye (except that caused by tuberculosis or sexually transmitteddisease) (3 sources) Conjunctivitis; Translations: [Unspecified conjunctivitis] Onset: 5 10-22-2024 Episodic Malaise and fatigue (17 sources) Asthenia; Translations: [Weakness] Onset: 4 02-22-2024 Episodic Mood disorders (1 source) Depressive disorder; Translations: [Depression] 10-23-2024 Chronic Mood disorders (1 source) Mood disorders; Translations: [Depression, unspecified] Onset: 5 Nutritional deficiencies (3 sources) Vitamin D deficiency; Translations: [Vitamin D deficiency, unspecified] Onset: 5 09-28-2024 Chronic Other connective tissue disease (2 sources) Monoparesis - leg; Translations: [Other symptoms and signs involving the musculoskeletal system] 09-28-2024 Episodic Other connective tissue disease (2 sources) Weakness of face muscles; Translations: [Facial weakness] 09-28-2024 Episodic Other connective tissue disease (1 source) Other symptoms and signs involving the musculoskeletal system; Translations: [Other symptoms and signs involving the musculoskeletal system] Onset: 5 Episodic Other connective tissue disease (1 source) Facial weakness; Translations: [Facial weakness] Onset: Episodic Other ear and sense organ disorders (2 sources) Presbycusis; Translations: [Presbycusis, unspecified ear] 09-28-2024 Episodic Other ear and sense organ disorders (1 source) Presbycusis, bilateral; Translations: [Presbycusis, bilateral] Onset: Episodic Other fractures (3 sources) Fracture of inferior pubic ramus; Translations: [Other specified fracture of unspecified pubis, initial encounter for closed fracture] 09-25-2024 Episodic Other fractures (1 source) Other specified fracture of left pubis, initial encounter for closed fracture; Translations: [Other specified fracture of left pubis, initial encounter for closed fracture] Onset: 5 Episodic Other gastrointestinal disorders (2 sources) Occult blood in stools; Translations: [Other fecal abnormalities] 10-22-2024 Episodic Other gastrointestinal disorders (2 sources) Oropharyngeal dysphagia; Translations: [Dysphagia, oropharyngeal phase] 10-22-2024 Episodic Other gastrointestinal disorders (1 source) Dysphagia, oropharyngeal phase; Translations: [Dysphagia, oropharyngeal phase] Onset: 5 Episodic Other gastrointestinal disorders (1 source) Other fecal abnormalities; Translations: [Other fecal abnormalities] Onset: 5 Episodic Other injuries and conditions due to external causes (19 sources) Foreign body in esophagus; Translations: [Unspecified foreign body in esophagus causing other injury, initial encounter] Onset: 4 Resolved: 8 07-24-2017 Episodic Other injuries and conditions due to external causes (2 sources) Aspiration into trachea; Translations: [Unspecified foreign body in trachea causing other injury, initial encounter] 10-22-2024 Episodic Other injuries and conditions due to external causes (1 source) Unspecified foreign body in trachea causing other injury, initial encounter; Translations: [Unspecified foreign body in trachea causing other injury, initial encounter] Onset: 5 Episodic Other lower respiratory disease (2 sources) Productive cough ; Translations: [Productive cough] 09-28-2024 Episodic Other nervous system disorders (11 sources) Metabolic encephalopathy; Translations: [Metabolic encephalopathy] Onset: 4 02-27-2024 Chronic Other nervous system disorders (3 sources) Unable to walk; Translations: [Difficulty in walking, not elsewhere classified] 09-24-2024 Chronic Other nervous system disorders (2 sources) Disorder of brain; Translations: [Encephalopathy, unspecified] 03-19-2024 Chronic Other nervous system disorders (1 source) Difficulty in walking, not elsewhere classified; Translations: [Difficulty in walking, not elsewhere classified] Onset: Chronic Other nervous system disorders (1 source) Abnormal gait; Translations: [Unsteadiness on feet] 02-22-2024 Episodic Other nervous system disorders (1 source) Bradykinesia; Translations: [Other abnormal involuntary movements] 09-02-2024 Episodic Other nervous system disorders (1 source) Other abnormal involuntary movements; Translations: [Bradykinesia] Onset: Episodic Other nervous system disorders (2 sources) Paresthesia; Translations: [Paresthesia of skin] 09-28-2024 Episodic Comment on above: Left hand and leg 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 MCA ISCHEMIC CVA Other nervous system disorders (1 source) Paresthesia of skin; Translations: [Paresthesia of skin] Onset: Episodic Other nutritional; endocrine; and metabolic disorders (2 sources) Hypophosphatemia; Translations: [Other disorders of phosphorus metabolism] 09-28-2024 Chronic Other nutritional; endocrine; and metabolic disorders (1 source) Other disorders of phosphorus metabolism; Translations: [Other disorders of phosphorus metabolism] Onset: 5 Chronic Other screening for suspected conditions (not mental disorders or infectious disease) (5 sources) Patient encounter status; Translations: [Encounter for screening for malignant neoplasm of prostate] Onset: 5 09-19-2024 Episodic Other upper respiratory disease (2 sources) Allergic rhinitis; Translations: [Allergic rhinitis, unspecified] Onset: 7 11-10-2016 Chronic Mile-; endo-; and myocarditis; cardiomyopathy (except that caused by tuberculosis or sexually transmitted disease) (3 sources) Heart valve disorder; Translations: [Endocarditis, valve unspecified] Onset: 4 11-10-2023 Chronic Residual codes; unclassified (1 source) REM sleep behavior disorder; Translations: [REM sleep behavior disorder] 09-02-2024 Chronic Residual codes; unclassified (1 source) REM sleep behavior disorder; 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)] Onset: 5 Chronic Residual codes; unclassified (2 sources) Sleep related hypoxemia; Translations: [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 classified elsewhere] 10-22-2024 Chronic Residual codes; unclassified (1 source) 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 classified elsewhere; Translations: [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 classified elsewhere] Onset: 5 Chronic Residual codes; unclassified (1 source) Hallucinations; Translations: [Hallucinations, unspecified] 09-02-2024 Episodic Residual codes; unclassified (1 source) Amnesia; Translations: [Other amnesia] 09-02-2024 Episodic Residual codes; unclassified (1 source) Hallucinations, unspecified; Translations: [Hallucination] Onset: 5 Episodic Residual codes; unclassified (1 source) Other amnesia; Translations: [Memory loss] Onset: 5 Episodic Residual codes; unclassified (2 sources) Pain; Translations: [Pain, unspecified] 09-28-2024 Episodic Residual codes; unclassified (2 sources) Past history of procedure; Translations: [Other specified postprocedural states] 10-22-2024 Episodic Residual codes; unclassified (1 source) Pain, unspecified; Translations: [Pain, unspecified] Onset: 5 Episodic Residual codes; unclassified (1 source) Other specified postprocedural states; Translations: [Other specified postprocedural states] Onset: 5 Episodic Screening and history of mental health and substance abuse codes (20 sources) Ex-smoker; Translations: [Personal history of nicotine dependence] Onset: 4 11-10-2023 Episodic Substance-related disorders (1 source) Tobacco dependence in remission; Translations: [Nicotine dependence, unspecified, in remission] 09-28-2024 Chronic Comment on above: quit in the Superficial injury; contusion (6 sources) Contusion of hip; Translations: [Contusion of left hip, initial encounter] Onset: 5 09-24-2024 Episodic Unclassified (1 source) After discharge from rehab Unclassified (1 source) Other specified cough; Translations: [Other specified cough] Onset: 5 Unclassified (1 source) Unspecified dementia, unspecified severity, with other behavioral disturbance; Translations: [Unspecified dementia, unspecified severity, with other behavioral disturbance] Onset: 5 Unclassified (1 source) Eosinophilia, unspecified; Translations: [Eosinophilia, unspecified] Onset: 5 Urinary tract infections (14 sources) Urinary tract infection, site not specified; Translations: [Acute cystitis] Onset: 4 02-26-2024 Episodic Past or Other Problems Problem Classification Problem Date Documented Da te Episodic/Chronic Abdominal hernia (19 sources) Right inguinal hernia ; Translations: [Unilateral inguinal hernia, without obstruction or gangrene, not specified as recurrent] Onset: 07-19-2017 10-10-2023 Episodic Conditions associated with dizziness or vertigo (20 sources) Dizziness; Translations: [Dizziness and giddiness] Onset: 11-10-2016 11-10-2016 Episodic Heart valve disorders (3 sources) Systolic murmur at apex of heart; Translations: [Cardiac murmur, unspecified] Onset: 10-19-2023 10-10-2023 Episodic Other connective tissue disease (10 sources) Neurological symptom; Translations: [Unspecified symptoms and signs involving the nervous system] Onset: 03-04-2024 03-04-2024 Episodic Residual codes; unclassified (12 sources) Delirium; Translations: [Disorientation, unspecified] Onset: 02-26-2024 02-26-2024 Episodic Residual codes; unclassified (2 sources) Disorientation, unspecified; Translations: [Acute delirium] Onset: 02-26-2024 Episodic Results Test Name Value Interpretation Reference Range Facility Electrocardiogram reportOrde red By: Matthew Chavarria on 10-23-2024 EKG study [facility] [place] Cardi[facility] [address] [place] [address] 12 Lead EKG 10/22/24 1729 MR#: [id number] Acct: [id number] Name: AYESHA JACOBSEN Rep #:[id number] : 1935 89 From: Matthew Chavarria MD Attending Dr: Dr. Shay Gaxiola DO Status: ADM IN Ordering Dr: Shay Gaxiola DO Date: 10/22/24 Location: Sex: M C Admitted: 09/27/24 Test Reason : Blood Pressure : */* mmHG Vent. Rate : 78 BPM Atrial Rate : 78 BPM P-R Int : 192 ms QRS Dur : 104 ms QT Int : 406 ms P-R-T Axes : 25 -39 58 degrees QTcB Int : 462 ms Normal sinus rhythm Left axis deviation Minimal voltage criteria for LVH, may be normal variant ( R in aVL ) Cannot rule out Inferior infarct , age undetermined Abnormal ECG When compared with ECG of 14-Oct-2024 11:43, No significant change was found Confirmed by YISEL RAYMOND, MATTHEW ([id number]), photographic editor KERON HUERTA ([id number]) on 512:47:06 PM Referred By: Shay Gaxiola Confirmed By: MATTHEW CHAVARRIA MD 10/23/24 1247 Date _ Matthew Chavarria MD CC: Dr. Nimisha Oseguera MD; Dr. Shay Gaxiola, DO ~ Signed [facility] Other Phone: 12 Lead EKGon 10-22-2024 12 Lead EKG Normal [facility] Absolute lymphocyte countOrd ered By: Shay Gaxiola on 10-16-2024 Lymphocytes Auto (Unsp spec) [#/Vol] 1.91 10*3/uL 0.83-4.51 [facility] Absolute neutrophil countOrd ered By: Shay Gaxiola on 10-16-2024 Neutrophils (Bld) [#/Vol] 5.3 10*3/uL 2.0-7.7 [facility] Anion gap in Serum or Plasma Ordered By: Shay Gaxiola on 10-16-2024 Anion gap [Moles/Vol] 9 mmol/L 5-15 [facility] Automated lymphocyte count a s percentage of total leukocytesOrdered By: Shay Gaxiola on 10-16-2024 Lymphocytes/100 WBC Auto (Unsp spec) 20.0 % 19-41 [facility] BUN/creatinine ratioOrdered By: Shay Gaxiola on 10-16-2024 Urea nitrogen/Creatinine [Mass ratio] 21.9 mg/mg High 10- [facility] Basic Metabolic Profile (BMP )on 10-16-2024 BUN/CRE 21.9 RATIO High - [facility] Comment on above: Performed By: #### L 503.7505, L500.2500 ####[facility] [address] [place], [address] Calcium [Mass/Vol] 9.2 mg/dL Normal 7.6-11.0 [facility] Comment on above: Performed By: #### L 503.7505, L500.2500 ####[facility] [address] [place], [address] Chloride [Moles/Vol] 104 mmol/L Normal 98-108 [facility] Comment on above: Performed By: #### L 503.7505, L500.2500 ####[facility] [address] [place], [address] CO2 [Moles/Vol] 26.8 mmol/L Normal 21.0-32.0 [facility] Comment on above: Performed By: #### L 503.7505, L500.2500 ####[facility] [address] [place], [address] Creatinine [Mass/Vol] 1.05 mg/dL Normal 0.70-1.20 [facility] Comment on above: Performed By: #### L 503.7505, L500.2500 ####[facility] [address] [place], [address] ECRCL 38.24 ml/min Low 50-250 [facility] Comment on above: Performed By: #### L 503.7505, L500.2500 ####[facility] [address] [place], [address] GAP 9 Normal 5-15 [facility] Comment on above: Performed By: #### L 503.7505, L500.2500 ####[facility] [address] [place], [address] GFR/1.73 sq M.predicted among non-blacks MDRD (S/P/Bld) [Vol rate/Area] 68 mL/min/{1.73_m2} Normal >60 [facility] Comment on above: Result Comment: mL/m in/1.73m2 CKD-EPI Creatinine Equation (2020) Performed By: #### L 503.7505, L500.2500 ####[facility] [address] [place], [address] Glucose [Mass/Vol] 93 mg/dL Normal 70-99 [facility] Comment on above: Performed By: #### L 503.7505, L500.2500 ####[facility] [address] [place], [address] Potassium [Moles/Vol] 4.0 mmol/L Normal 3.3-5.1 [facility] Comment on above: Performed By: #### L 503.7505, L500.2500 ####[facility] [address] [place], [address] Sodium [Moles/Vol] 140 mmol/L Normal 133-145 [facility] Comment on above: Performed By: #### L 503.7505, L500.2500 ####[facility] [address] [place], [address] Urea nitrogen [Mass/Vol] 23 mg/dL High 4-19 [facility] Comment on above: Performed By: #### L 503.7505, L500.2500 ####[facility] [address] [place], [address] Basophil percentageOrdered B y: Shay Gaxiola on 10-16-2024 Basophils/100 WBC (Bld) 0.7 % 0-1 [facility] CBC W/Diff, Automatedon 10-06 Absolute Lymph 1.91 X10 3/uL Normal 0.83-4.51 [facility] Comment on above: Performed By: #### L 100.0100 ####[facility] [address] [place], [address] Absolute Neut 5.3 X10 3/uL Normal 2.0-7.7 [facility] Comment on above: Performed By: #### L 100.0100 ####[facility] [address] [place], [address] Basophils/100 WBC (Bld) 0.7 % Normal 0-1 [facility] Comment on above: Performed By: #### L 100.0100 ####[facility] [address] [place], [address] Eosinophils/100 WBC (Bld) 12.0 % High 0-5 [facility] Comment on above: Performed By: #### L 100.0100 ####[facility] [address] [place], [address] Erythrocyte distribution width (RBC) [Ratio] 14.8 % High 11.6-14.6 [facility] Comment on above: Performed By: #### L 100.0100 ####[facility] [address] [place], [address] Hematocrit (Bld) [Volume fraction] 37.5 % Low 40-54 [facility] Comment on above: Performed By: #### L 100.0100 ####[facility] [address] [place], [address] Hemoglobin (Bld) [Mass/Vol] 12.3 g/dL Low 13.0-16.5 [facility] Comment on above: Performed By: #### L 100.0100 ####[facility] [address] [place], [address] IG% 0.400 Normal 0.0-0.9 [facility] Comment on above: Result Comment: IG% - Immature Granulocytes (promyelocytes, myelocytes andmetamyelocytes) > 1% indicates that a LEFT SHIFT is Present. Performed By: #### L 100.0100 ####[facility] [address] [place], [address] Lymphocytes/100 WBC (Bld) 20.0 % Normal 19-41 [facility] Comment on above: Performed By: #### L 100.0100 ####[facility] [address] [place], [address] MCH (RBC) [Entitic mass] 30.1 pg Normal 27.0-32.0 [facility] Comment on above: Performed By: #### L 100.0100 ####[facility] [address] [place], [address] MCHC (RBC) [Mass/Vol] 32.8 g/dL Normal 32-36 [facility] Comment on above: Performed By: #### L 100.0100 ####[facility] [address] [place], [address] MCV (RBC) [Entitic vol] 91.7 fL Normal 80-94 [facility] Comment on above: Performed By: #### L 100.0100 ####[facility] [address] [place], [address] Monocytes/100 WBC (Bld) 11.6 % High 0-10 [facility] Comment on above: Performed By: #### L 100.0100 ####[facility] [address] [place], [address] Neutrophils/100 WBC (Bld) 55.3 % Normal 47-70 [facility] Comment on above: Performed By: #### L 100.0100 ####[facility] [address] [place], [address] Nucleated RBC (Bld) [#/Vol] 0 10*3/uL Normal 0-5 [facility] Comment on above: Performed By: #### L 100.0100 ####[facility] [address] [place], [address] Platelet mean volume (Bld) [Entitic vol] 10.0 fL Normal 6.2-12.0 [facility] Comment on above: Performed By: #### L 100.0100 ####[facility] [address] [place], [address] Platelets (Bld) [#/Vol] 319 10*3/uL Normal 150-450 [facility] Comment on above: Performed By: #### L 100.0100 ####[facility] [address] [place], [address] RBC (Bld) [#/Vol] 4.09 10*6/uL Low 4.6-6.2 [facility] Comment on above: Performed By: #### L 100.0100 ####[facility] [address] [place], [address] RDW SD 49.9 fl High 35.1-43.9 [facility] Comment on above: Performed By: #### L 100.0100 ####[facility] [address] [place], [address] WBC (Bld) [#/Vol] 9.6 10*3/uL Normal 4.4-11.0 [facility] Comment on above: Performed By: #### L 100.0100 ####[facility] [address] [place], [address] Carbon dioxide, total [Moles /volume] in Central venous bloodOrdered By: Shay Gaxiola on 10-16-2024 CO2 [Moles/Vol] 26.8 mmol/L 21.0-32.0 [facility] Chloride assayOrdered By: Osmani Gaxiola on 10-16-2024 Chloride [Moles/Vol] 104 mmol/L 98-108 [facility] Eosinophil percentageOrdered By: Shay Gaxiola on 10-16-2024 Eosinophils/100 WBC (Bld) 12.0 % High 0-5 [facility] Erythrocyte distribution wid th ratioOrdered By: Shay Gaxiola on 10-16-2024 Erythrocyte distribution width (RBC) [Ratio] 14.8 % High 11.6-14.6 [facility] Erythrocyte distribution wid th standard deviationOrdered By: Shay Gaxiola on 10-16-2024 Erythrocyte distribution width (RBC) [Ratio] 49.9 fl High 35.1-43.9 [facility] Glomerular filtration rate ( GFR) estimation/1.73 sq m using serum, plasma, or whole bOrdered By: Shay Gaxiola on 10-16-2024 GFR/1.73 sq M.predicted among non-blacks MDRD (S/P/Bld) [Vol rate/Area] 68 mL/min/{1.73_m2} >60 [facility] Comment on above: mL/min/1.73m2 CKD-EP I Creatinine Equation (2020) Hematocrit Auto (Bld) [Volum e fraction]Ordered By: Shay Gaxiola on 10-16-2024 Hematocrit (Bld) [Volume fraction] 37.5 % Low 40-54 [facility] Hemoglobin measurementOrdere d By: Shay Gaxiola on 10-16-2024 Hemoglobin (Bld) [Mass/Vol] 12.3 g/dL Low 13.0-16.5 [facility] Immature granulocytes/100 WB C Auto (Bld)Ordered By: Shay Gaxiola on 10-16-2024 Immature granulocytes/100 WBC (Bld) 0.400 % 0.0-0.9 [facility] Comment on above: IG% - Immature Granu locytes (promyelocytes, myelocytes and metamyelocytes) > 1% indicates that a LEFT SHIFT is Present. L503.7505on 10-16-2024 Natriuretic peptide B (Bld) [Mass/Vol] 342 pg/mL Normal <=1800 [facility] Comment on above: Result Comment: Hear t Failure Unlikely: < 300 pg/mLHeart Failure Likely< 50 Years: > 450 pg/mL50-75 Years: > 900 pg/mL>75 Years: > 1800 pg/mL Performed By: #### L 503.7505, L500.2500 ####[facility] [address] [place], [address] MCV (mean corpuscular volume ) determinationOrdered By: Shay Gaxiola on 10-16-2024 MCV (RBC) [Entitic vol] 91.7 fL 80-94 [facility] Mean corpuscular hemoglobin (MCH) determinationOrdered By: Shay Gaxiola on 10-16-2024 MCH (RBC) [Entitic mass] 30.1 pg 27.0-32.0 [facility] Mean corpuscular hemoglobin concentration (MCHC) determinationOrdered By: Shay Gaxiola on 10-16-2024 MCHC (RBC) [Mass/Vol] 32.8 g/dL 32-36 [facility] Mean platelet volume determi nationOrdered By: Shay Gaxiola on 10-16-2024 Platelet mean volume (Bld) [Entitic vol] 10.0 fL 6.2-12.0 [facility] Monocyte percentageOrdered B y: Shay Gaxiola on 10-16-2024 Monocytes/100 WBC (Bld) 11.6 % High 0-10 [facility] Natriuretic peptide.B prohor ashish N-Terminal [Mass/volume] in Serum or PlasmaOrdered By: Shay Gaxiola on 10-16-2024 Natriuretic peptide.B prohormone N-Terminal [Mass/Vol] 342 pg/mL <1800 [facility] Comment on above: Heart Failure Unlike ly: < 300 pg/mLHeart Failure Likely< 50 Years: > 450 pg/mL50-75 Years: > 900 pg/mL>75 Years: > 1800 pg/mL Neutrophil percentageOrdered By: Shay Gaxiola on 10-16-2024 Neutrophils/100 WBC (Bld) 55.3 % 47-70 [facility] Nucleated red blood cell per centageOrdered By: Shay Khalida on 10-16-2024 Nucleated RBC/100 WBC (Bld) [Ratio] 0 % 0-5 [facility] Platelet countOrdered By: Osmani crum Khalida on 10-16-2024 Platelets (Bld) [#/Vol] 319 10*3/uL 150-450 [facility] Potassium measurement (mass/ volume)Ordered By: Shay Gaxiola on 10-16-2024 Potassium (Unsp spec) [Mass/Vol] 4.0 mmol/L 3.3-5.1 [facility] RBC Auto (Bld) [#/Vol]Ordere d By: Shay Gaxiola on 10-16-2024 RBC (Bld) [#/Vol] 4.09 10*6/uL Low 4.6-6.2 [facility] Serum creatinine measurement (mass/volume)Ordered By: Shay Gaxiola on 10-16-2024 Creatinine [Mass/Vol] 1.05 mg/dL 0.70-1.20 [facility] Serum glucose measurement (m ass/volume)Ordered By: Shay Gaxiola on 10-16-2024 Glucose [Mass/Vol] 93 mg/dL 70-99 [facility] Serum or plasma calcium patrick urement (mass/volume)Ordered By: Shay Gaxiola on 10-16-2024 Calcium [Mass/Vol] 9.2 mg/dL 7.6-11.0 [facility] Serum or plasma urea nitroge n measurement (mass/volume)Ordered By: Shay Gaxiola on 10-16-2024 Urea nitrogen [Mass/Vol] 23 mg/dL High 4-19 [facility] Sodium levelOrdered By: Shay aGxiola on 10-16-2024 Sodium [Moles/Vol] 140 mmol/L 133-145 [facility] White blood cell (WBC) count Ordered By: Shay Gaxiola on 10-16-2024 WBC (Bld) [#/Vol] 9.6 10*3/uL 4.4-11.0 [facility] Bilirubin Test strip Ql (U)O rdered By: Shay Gaxiola on 10-15-2024 Bilirubin Ql (U) Negative Negative [facility] Chest PA and Lateralon 10-15 Chest PA and Lateral Normal [facility] Electrocardiogram reportOrde red By: Juan C Guthrie on 10-15-2024 EKG study [facility] Cardiovascular Services [address] [place] [address] 12 Lead EKG 10/14/24 1143 MR#: [id number] Acct: [id number] Name: AYESHA JACOBSEN Rep #:[id number] : 1935 89 From: Juan C card MD Attending Dr: Dr. Shay Gaxiola DO Status: ADM IN Ordering Dr: Shay Gaxiola DO Date: 10/14/24 Location: Sex: M C Admitted: 09/27/24 Test Reason : EX Blood Pressure : */* mmHG Vent. Rate : 72 BPM Atrial Rate : 72 BPM P-R Int : 198 ms QRS Dur : 110 ms QT Int : 412 ms P-R-T Axes : 66 -38 70 degrees QTcB Int : 451 ms Normal sinus rhythm Left axis deviation Incomplete right bundle branch block Abnormal ECG When compared with ECG of 01-Oct-2024 11:27, No significant change was found Confirmed by Juan C Guthrie ([id number]), photographic editor CARON DYER ([id number]) on 10/15/2024 11:06:40 AM Referred By: Shay Gaxiola Confirmed By: Juan C Guthrie 10/15/24 1106 Date _ Juan C Guthrie MD CC: Dr. Nimisha Oseguera MD; Dr. Shay Gaxiola, DO ~ Signed [facility] Work Phone: Ketones Test strip Ql (U)Ord ered By: Shay Gaxiola on 10-15-2024 Ketones Ql (U) Negative Negative [facility] Microscopic analysis of urin e for red blood cells (RBC)Ordered By: Shay Gaxiola on 10-15-2024 Microscopic analysis of urine for red blood cells (RBC) 0-5 SEEN /hpf 0-5 [facility] Mucus LM Ql (Urine sed)Order ed By: Shay Gaxiola on 06-10-2025 Mucus Ql (Urine sed) 0 SEEN /hpf [facility] Nitrite Test strip Ql (U)Ord ered By: Shay Gaxiola on 10-15-2024 Nitrite Ql (U) Negative Negative [facility] Protein Test strip Ql (U)Ord ered By: Shay Gaxiola on 10-15-2024 Protein Ql (U) 15 mg/dl High Negative [facility] Squamous epithelial cells de tection in urine sediment by light microscopyOrdered By: Shay Calvovicky on 10-15-2024 Epithelial cells.squamous LM Ql (Urine sed) 0 SEEN /hpf 0-5 [facility] Urinalysis, Completeon 10-15 RBC 0-5 SEEN Normal 0-5 [facility] Comment on above: Order Comment: CLEAN CATCH Performed By: #### L 400.0001 ####[facility] [address] [place], [address] WBC 0-5 SEEN Normal 0-5 [facility] Comment on above: Order Comment: CLEAN CATCH Performed By: #### L 400.0001 ####[facility] [address] [place], [address] BACTERIA 0 SEEN Normal None Seen [facility] Comment on above: Order Comment: CLEAN CATCH Performed By: #### L 400.0001 ####[facility] [address] [place], [address] EPI,SQUAMOUS 0 SEEN Normal 0-5 [facility] Comment on above: Order Comment: CLEAN CATCH Performed By: #### L 400.0001 ####[facility] [address] [place], [address] Mucus Ql (Urine sed) 0 SEEN Normal [facility] Comment on above: Order Comment: CLEAN CATCH Performed By: #### L 400.0001 ####[facility] [address] [place], [address] Urine clarityOrdered By: Anusha Gaxiola on 10-15-2024 Clarity (U) Clear Clear [facility] Urine color determinationOrd ered By: Shay Calvovicky on 10-15-2024 Color (U) Yellow Yellow [facility] Urine glucose detectionOrder ed By: Shay Gaxiola on 10-15-2024 Glucose Ql (U) Normal mg/dl Normal [facility] Urine leukocyte esterase det ection by dipstickOrdered By: Shay Gaxiola on 10-15-2024 Leukocyte esterase Test strip Ql (U) 25 /ul High Negative [facility] Urine pHOrdered By: Shay Taylor ellie on 10-15-2024 pH (U) 6.5 [pH] 5.0 - 8.0 [facility] Urine sediment bacteria coun t by microscopy (number/high power field)Ordered By: Shay Calvovicky on 10-15-2024 Bacteria LM.HPF (Urine sed) [#/Area] 0 /[HPF] None Seen [facility] Urine specific gravity measu rementOrdered By: Shay Calvovicky on 10-15-2024 Specific gravity (U) [Rel density] 1.010 1.002-1.03 0 [facility] Urine urobilinogen measureme ntOrdered By: Shay Calvovicky on 10-15-2024 Urobilinogen Ql (U) Normal mg/dl Normal [facility] White blood cell countOrdere d By: Shay Calvovicky on 10-15-2024 White blood cell count 0-5 SEEN /hpf 0-5 [facility] 12 Lead EKGon 10-14-2024 12 Lead EKG Normal [facility] Urinalysis, Completeon 10-14 RBC 10-25 SEEN Normal 0-5 [facility] Comment on above: Order Comment: CARMEN TER SPECIMEN Performed By: #### L 400.0001 ####[facility] [address] [facility] [place], [place], [id number] BACTERIA 0 SEEN Normal None Seen [facility] Comment on above: Order Comment: CARMEN TER SPECIMEN Performed By: #### L 400.0001 ####[facility] [address] [facility] [place], [place], [id number] EPI,SQUAMOUS 0 SEEN Normal 0-5 [facility] Comment on above: Order Comment: CARMEN TER SPECIMEN Performed By: #### L 400.0001 ####[facility] [address] [place], [address] Mucus Ql (Urine sed) 0 SEEN Normal [facility] Comment on above: Order Comment: CARMEN TER SPECIMEN Performed By: #### L 400.0001 ####[facility] [address] [place], [address] WBC 0 SEEN Normal 0-5 [facility] Comment on above: Order Comment: CARMEN TER SPECIMEN Performed By: #### L 400.0001 ####[facility] [address] [place], [address] Bilirubin, totalOrdered By: Shay Gaxiola on 10-10-2024 Bilirubin [Mass/Vol] 0.46 mg/dL 0.00-1.30 [facility] CBC W/Diff, Automatedon Absolute Lymph 2.44 X10 3/uL Normal 0.83-4.51 [facility] Comment on above: Order Comment: ADD O N DIFFERENTIAL Performed By: #### L 100.0500, L500.4050, L100.0100 ####[facility] [address] [place], [address] Absolute Neut 6.9 X10 3/uL Normal 2.0-7.7 [facility] Comment on above: Order Comment: ADD O N DIFFERENTIAL Performed By: #### L 100.0500, L500.4050, L100.0100 ####[facility] [address] [place], [address] Basophils/100 WBC (Bld) 0.7 % Normal 0-1 [facility] Comment on above: Order Comment: ADD O N DIFFERENTIAL Performed By: #### L 100.0500, L500.4050, L100.0100 ####[facility] [address] [place], [address] Eosinophils/100 WBC (Bld) 9.6 % High 0-5 [facility] Comment on above: Order Comment: ADD O N DIFFERENTIAL Performed By: #### L 100.0500, L500.4050, L100.0100 ####[facility] [address] [place], [address] IG% 1.000 High 0.0-0.9 [facility] Comment on above: Order Comment: ADD O N DIFFERENTIAL Result Comment: IG% - Immature Granulocytes (promyelocytes, myelocytes andmetamyelocytes) > 1% indicates that a LEFT SHIFT is Present. Performed By: #### L 100.0500, L500.4050, L100.0100 ####[facility] [address] [place], [address] Lymphocytes/100 WBC (Bld) 21.1 % Normal 19-41 [facility] Comment on above: Order Comment: ADD O N DIFFERENTIAL Performed By: #### L 100.0500, L500.4050, L100.0100 ####[facility] [address] [place], [address] Monocytes/100 WBC (Bld) 8.3 % Normal 0-10 [facility] Comment on above: Order Comment: ADD O N DIFFERENTIAL Performed By: #### L 100.0500, L500.4050, L100.0100 ####[facility] [address] [place], [address] Neutrophils/100 WBC (Bld) 59.3 % Normal 47-70 [facility] Comment on above: Order Comment: ADD O N DIFFERENTIAL Performed By: #### L 100.0500, L500.4050, L100.0100 ####[facility] [address] [place], [address] Nucleated RBC (Bld) [#/Vol] 0 10*3/uL Normal 0-5 [facility] Comment on above: Order Comment: ADD O N DIFFERENTIAL Performed By: #### L 100.0500, L500.4050, L100.0100 ####[facility] [address] [place], [address] CBC-Complete Blood Cnt No Di ffon 10-10-2024 Erythrocyte distribution width (RBC) [Ratio] 14.7 % High 11.6-14.6 [facility] Comment on above: Performed By: #### L 100.0500, L500.4050, L100.0100 ####[facility] [address] [place], [address] Hematocrit (Bld) [Volume fraction] 35.0 % Low 40-54 [facility] Comment on above: Performed By: #### L 100.0500, L500.4050, L100.0100 ####[facility] [address] [place], [address] Hemoglobin (Bld) [Mass/Vol] 11.6 g/dL Low 13.0-16.5 [facility] Comment on above: Performed By: #### L 100.0500, L500.4050, L100.0100 ####[facility] [address] [place], [address] MCH (RBC) [Entitic mass] 30.2 pg Normal 27.0-32.0 [facility] Comment on above: Performed By: #### L 100.0500, L500.4050, L100.0100 ####[facility] [address] [place], [address] MCHC (RBC) [Mass/Vol] 33.1 g/dL Normal 32-36 [facility] Comment on above: Performed By: #### L 100.0500, L500.4050, L100.0100 ####[facility] [address] [place], [address] MCV (RBC) [Entitic vol] 91.1 fL Normal 80-94 [facility] Comment on above: Performed By: #### L 100.0500, L500.4050, L100.0100 ####[facility] [address] [place], [address] Platelet mean volume (Bld) [Entitic vol] 9.9 fL Normal 6.2-12.0 [facility] Comment on above: Performed By: #### L 100.0500, L500.4050, L100.0100 ####[facility] [address] [place], [address] Platelets (Bld) [#/Vol] 333 10*3/uL Normal 150-450 [facility] Comment on above: Performed By: #### L 100.0500, L500.4050, L100.0100 ####[facility] [address] [place], [address] RBC (Bld) [#/Vol] 3.84 10*6/uL Low 4.6-6.2 [facility] Comment on above: Performed By: #### L 100.0500, L500.4050, L100.0100 ####[facility] [address] [place], [address] RDW SD 49.1 fl High 35.1-43.9 [facility] Comment on above: Performed By: #### L 100.0500, L500.4050, L100.0100 ####[facility] [address] [place], [address] WBC (Bld) [#/Vol] 11.7 10*3/uL High 4.4-11.0 [facility] Comment on above: Performed By: #### L 100.0500, L500.4050, L100.0100 ####[facility] [address] [place], [address] Comprehensive Metabolic Prof ilon 10-10-2024 Albumin [Mass/Vol] 3.2 g/dL Low 3.4-4.8 [facility] Comment on above: Performed By: #### L 100.0500, L500.4050, L100.0100 ####[facility] [address] [place], [address] Albumin/Globulin [Mass ratio] 1.1 {ratio} Normal 0.9-2.4 [facility] Comment on above: Performed By: #### L 100.0500, L500.4050, L100.0100 ####[facility] [address] [place], [address] ALK PHOS 105 U/L Normal 40-129 [facility] Comment on above: Performed By: #### L 100.0500, L500.4050, L100.0100 ####[facility] [address] [place], [address] ALT [Catalytic activity/Vol] 16 U/L Normal <=46 [facility] Comment on above: Performed By: #### L 100.0500, L500.4050, L100.0100 ####[facility] [address] [place], [address] AST [Catalytic activity/Vol] 19 U/L Normal <=37 [facility] Comment on above: Performed By: #### L 100.0500, L500.4050, L100.0100 ####[facility] [address] [place], [address] Bilirubin [Mass/Vol] 0.46 mg/dL Normal 0.00-1.30 [facility] Comment on above: Performed By: #### L 100.0500, L500.4050, L100.0100 ####[facility] [address] [place], [address] BUN/CRE 22.1 RATIO High 10-20 [facility] Comment on above: Performed By: #### L 100.0500, L500.4050, L100.0100 ####[facility] [address] [place], [address] Calcium [Mass/Vol] 9.0 mg/dL Normal 7.6-11.0 [facility] Comment on above: Performed By: #### L 100.0500, L500.4050, L100.0100 ####[facility] [address] [place], [address] Chloride [Moles/Vol] 105 mmol/L Normal 98-108 [facility] Comment on above: Performed By: #### L 100.0500, L500.4050, L100.0100 ####[facility] [address] [place], [address] CO2 [Moles/Vol] 28.6 mmol/L Normal 21.0-32.0 [facility] Comment on above: Performed By: #### L 100.0500, L500.4050, L100.0100 ####[facility] [address] [place], [address] Creatinine [Mass/Vol] 1.17 mg/dL Normal 0.70-1.20 [facility] Comment on above: Performed By: #### L 100.0500, L500.4050, L100.0100 ####[facility] [address] [place], [address] ECRCL 34.32 ml/min Low 50-250 [facility] Comment on above: Performed By: #### L 100.0500, L500.4050, L100.0100 ####[facility] [address] [place], [address] GAP 9 Normal 5-15 [facility] Comment on above: Performed By: #### L 100.0500, L500.4050, L100.0100 ####[facility] [address] [place], [address] GFR/1.73 sq M.predicted among non-blacks MDRD (S/P/Bld) [Vol rate/Area] 60 mL/min/{1.73_m2} Normal >60 [facility] Comment on above: Result Comment: mL/m in/1.73m2 CKD-EPI Creatinine Equation (2020) Performed By: #### L 100.0500, L500.4050, L100.0100 ####[facility] [address] [place], [address] Globulin (S) [Mass/Vol] 2.9 g/dL Normal 2.2-4.2 [facility] Comment on above: Performed By: #### L 100.0500, L500.4050, L100.0100 ####[facility] [address] [place], [address] Glucose [Mass/Vol] 88 mg/dL Normal 70-99 [facility] Comment on above: Performed By: #### L 100.0500, L500.4050, L100.0100 ####[facility] [address] [place], [address] Potassium [Moles/Vol] 4.7 mmol/L Normal 3.3-5.1 [facility] Comment on above: Performed By: #### L 100.0500, L500.4050, L100.0100 ####[facility] [address] [place], [address] Sodium [Moles/Vol] 142 mmol/L Normal 133-145 [facility] Comment on above: Performed By: #### L 100.0500, L500.4050, L100.0100 ####[facility] [address] [place], [address] T PROT 6.1 g/dL Normal 5.9-8.4 [facility] Comment on above: Performed By: #### L 100.0500, L500.4050, L100.0100 ####[facility] [address] [place], [address] Urea nitrogen [Mass/Vol] 26 mg/dL High 4-19 [facility] Comment on above: Performed By: #### L 100.0500, L500.4050, L100.0100 ####[facility] [address] [place], [address] Laboratory - Chemistry and C hemistry - challengeOrdered By: Shay Gaxiola on 10-10-2024 AST [Catalytic activity/Vol] 19 U/L <38 [facility] Serum globulin measurementOr dered By: Shay Gaxiola on 10-10-2024 Globulin (S) [Mass/Vol] 2.9 g/dL 2.2-4.2 [facility] Serum or plasma alanine orozco otransferase (ALT) measurementOrdered By: Shay Gaxiola on 10-10-2024 ALT [Catalytic activity/Vol] 16 U/L <47 [facility] Serum or plasma albumin patrick urement (mass/volume)Ordered By: Shay Gaxiola on 10-10-2024 Albumin [Mass/Vol] 3.2 g/dL Low 3.4-4.8 [facility] Serum or plasma albumin/glob ulin mass ratioOrdered By: Shay Gaxiola on 10-10-2024 Albumin/Globulin [Mass ratio] 1.1 {ratio} 0.9-2.4 [facility] Serum or plasma alkaline mei sphatase measurementOrdered By: Shay Gaxiola on 10-10-2024 ALP [Catalytic activity/Vol] 105 U/L 40-129 [facility] Total proteinOrdered By: Anusha Gaxiola on 10-10-2024 Protein [Mass/Vol] 6.1 g/dL 5.9-8.4 [facility] Magnesiumon 10-08-2024 Magnesium [Mass/Vol] 1.8 mg/dL Normal 1.5-2.2 [facility] Comment on above: Performed By: #### L 501.2300, L501.5200 ####[facility] [address] [place], [address] Magnesium measurement (mass/ volume)Ordered By: Shay Gaxiola on 10-08-2024 Magnesium (Unsp spec) [Mass/Vol] 1.8 mg/dL 1.5-2.2 [facility] Phosphoruson 10-08-2024 Phosphate [Mass/Vol] 3.1 mg/dL Normal 2.7-4.5 [facility] Comment on above: Performed By: #### L 501.2300, L501.5200 ####[facility] [address] [place], [address] Electrocardiogram reportOrde red By: Juan C Guthrie on 10-07-2024 EKG study [facility] [address] [place] [address] 12 Lead EKG 10/01/24 1127 MR#: [id number] Acct: [id number] Name: AYESHA JACOBSEN Rep #:[id number] : [id number] From: Juan C card MD Attending Dr: Dr. Shay Gaxiola, DO Status: ADM IN Ordering Dr: Shay Gaxiola DO Date: 10/01/24 Location: RU Sex: M C Admitted: 09/27/24 Test Reason : CHEST PAIN Blood Pressure : */* mmHG Vent. Rate : 79 BPM Atrial Rate : 79 BPM P-R Int : 190 ms QRS Dur : 104 ms QT Int : 414 ms P-R-T Axes : 63 -23 60 degrees QTcB Int : 474 ms Normal sinus rhythm Cannot rule out Inferior infarct , age undetermined Abnormal ECG When compared with ECG of 24-Sep-2024 19:44, Premature ventricular complexes are no longer Present POOR TRACING Confirmed by Juan C Guthrie ([id number]), photographic editor CARON DYER ([id number]) on 10/07/2024 1:19:10 PM Referred By: Shay Gaxiola Confirmed By: Juan C Guthrie 10/07/24 1319 Date _ Juan C Guthrie MD CC: Dr. Nimisha Oseguera MD; Dr. Shay Gaxiola, DO ~ Signed [facility] Work Phone: Basic Metabolic Profile (BMP )on 10-02-2024 BUN/CRE 25.9 RATIO High 10-20 [facility] Comment on above: Performed By: #### L 100.0100, L506.0400, L500.2500, L501.28786 ####[facility] [address] [place], [address] Calcium [Mass/Vol] 9.0 mg/dL Normal 7.6-11.0 [facility] Comment on above: Performed By: #### L 100.0100, L506.0400, L500.2500, L501.86519 ####[facility] [address] [place], [address] Chloride [Moles/Vol] 105 mmol/L Normal 98-108 [facility] Comment on above: Performed By: #### L 100.0100, L506.0400, L500.2500, L501.55701 ####[facility] [address] [place], [address] CO2 [Moles/Vol] 24.5 mmol/L Normal 21.0-32.0 [facility] Comment on above: Performed By: #### L 100.0100, L506.0400, L500.2500, L501.73332 ####[facility] [address] [place], [address] Creatinine [Mass/Vol] 1.06 mg/dL Normal 0.70-1.20 [facility] Comment on above: Performed By: #### L 100.0100, L506.0400, L500.2500, L501.78793 ####[facility] [address] [place], [address] ECRCL 37.75 ml/min Low 50-250 [facility] Comment on above: Performed By: #### L 100.0100, L506.0400, L500.2500, L501.36263 ####[facility] [address] [place], [address] GAP 10 Normal 5-15 [facility] Comment on above: Performed By: #### L 100.0100, L506.0400, L500.2500, L501.24701 ####[facility] [address] [place], [address] GFR/1.73 sq M.predicted among non-blacks MDRD (S/P/Bld) [Vol rate/Area] 68 mL/min/{1.73_m2} Normal >60 [facility] Comment on above: Result Comment: mL/m in/1.73m2 CKD-EPI Creatinine Equation (2020) Performed By: #### L 100.0100, L506.0400, L500.2500, L501.25765 ####[facility] [address] [place], [address] Glucose [Mass/Vol] 91 mg/dL Normal 70-99 [facility] Comment on above: Performed By: #### L 100.0100, L506.0400, L500.2500, L501.43953 ####[facility] [address] [place], [address] Potassium [Moles/Vol] 4.0 mmol/L Normal 3.3-5.1 [facility] Comment on above: Performed By: #### L 100.0100, L506.0400, L500.2500, L501.21416 ####[facility] [address] [place], [address] Sodium [Moles/Vol] 139 mmol/L Normal 133-145 [facility] Comment on above: Performed By: #### L 100.0100, L506.0400, L500.2500, L501.38152 ####[facility] [address] [place], [address] Urea nitrogen [Mass/Vol] 28 mg/dL High 4-19 [facility] Comment on above: Performed By: #### L 100.0100, L506.0400, L500.2500, L501.93646 ####[facility] [address] [place], [address] CBC W/Diff, Automatedon 05 Absolute Lymph 2.51 X10 3/uL Normal 0.83-4.51 [facility] Comment on above: Performed By: #### L 100.0100, L506.0400, L500.2500, L501.01800 ####[facility] [address] [place], [address] Absolute Neut 5.7 X10 3/uL Normal 2.0-7.7 [facility] Comment on above: Performed By: #### L 100.0100, L506.0400, L500.2500, L501.36271 ####[facility] [address] [place], [address] Basophils/100 WBC (Bld) 0.7 % Normal 0-1 [facility] Comment on above: Performed By: #### L 100.0100, L506.0400, L500.2500, L501.19332 ####[facility] [address] [place], [address] Eosinophils/100 WBC (Bld) 11.5 % High 0-5 [facility] Comment on above: Performed By: #### L 100.0100, L506.0400, L500.2500, L501.10299 ####[facility] [address] [place], [address] Erythrocyte distribution width (RBC) [Ratio] 14.5 % Normal 11.6-14.6 [facility] Comment on above: Performed By: #### L 100.0100, L506.0400, L500.2500, L501.02503 ####[facility] [address] [place], [address] Hematocrit (Bld) [Volume fraction] 36.0 % Low 40-54 [facility] Comment on above: Performed By: #### L 100.0100, L506.0400, L500.2500, L501.78055 ####[facility] [address] [place], [address] Hemoglobin (Bld) [Mass/Vol] 12.0 g/dL Low 13.0-16.5 [facility] Comment on above: Performed By: #### L 100.0100, L506.0400, L500.2500, L501.72523 ####[facility] [address] [place], [address] IG% 1.700 High 0.0-0.9 [facility] Comment on above: Result Comment: IG% - Immature Granulocytes (promyelocytes, myelocytes andmetamyelocytes) > 1% indicates that a LEFT SHIFT is Present. Performed By: #### L 100.0100, L506.0400, L500.2500, L501.20921 ####[facility] [address] [place], [address] Lymphocytes/100 WBC (Bld) 23.4 % Normal 19-41 [facility] Comment on above: Performed By: #### L 100.0100, L506.0400, L500.2500, L501.45031 ####[facility] [address] [place], [address] MCH (RBC) [Entitic mass] 30.2 pg Normal 27.0-32.0 [facility] Comment on above: Performed By: #### L 100.0100, L506.0400, L500.2500, L501.19975 ####[facility] [address] [place], [address] MCHC (RBC) [Mass/Vol] 33.3 g/dL Normal 32-36 [facility] Comment on above: Performed By: #### L 100.0100, L506.0400, L500.2500, L501.47496 ####[facility] [address] [place], [address] MCV (RBC) [Entitic vol] 90.5 fL Normal 80-94 [facility] Comment on above: Performed By: #### L 100.0100, L506.0400, L500.2500, L501.43063 ####[facility] [address] [place], [address] Monocytes/100 WBC (Bld) 10.2 % High 0-10 [facility] Comment on above: Performed By: #### L 100.0100, L506.0400, L500.2500, L501.42056 ####[facility] [address] [place], [address] Neutrophils/100 WBC (Bld) 52.5 % Normal 47-70 [facility] Comment on above: Performed By: #### L 100.0100, L506.0400, L500.2500, L501.07831 ####[facility] [address] [place], [address] Nucleated RBC (Bld) [#/Vol] 0 10*3/uL Normal 0-5 [facility] Comment on above: Performed By: #### L 100.0100, L506.0400, L500.2500, L501.76808 ####[facility] [address] [place], [address] Platelet mean volume (Bld) [Entitic vol] 10.5 fL Normal 6.2-12.0 [facility] Comment on above: Performed By: #### L 100.0100, L506.0400, L500.2500, L501.81576 ####[facility] [address] [place], [address] Platelets (Bld) [#/Vol] 169 10*3/uL Normal 150-450 [facility] Comment on above: Performed By: #### L 100.0100, L506.0400, L500.2500, L501.85410 ####[facility] [address] [place], [address] RBC (Bld) [#/Vol] 3.98 10*6/uL Low 4.6-6.2 [facility] Comment on above: Performed By: #### L 100.0100, L506.0400, L500.2500, L501.69954 ####[facility] [address] [place], [address] RDW SD 48.8 fl High 35.1-43.9 [facility] Comment on above: Performed By: #### L 100.0100, L506.0400, L500.2500, L501.38395 ####[facility] [address] [place], [address] WBC (Bld) [#/Vol] 10.7 10*3/uL Normal 4.4-11.0 [facility] Comment on above: Performed By: #### L 100.0100, L506.0400, L500.2500, L501.77955 ####[facility] [address] [place], [address] Free T3on 10-02-2024 Free T3 [Mass/Vol] 2.5 pg/mL Normal 2.18-3.98 [facility] Comment on above: Performed By: #### L 100.0100, L506.0400, L500.2500, L501.87055 ####[facility] [address] [place], [address] Free D9Uwgpuyd By: Shay Saunders nti on 10-02-2024 Free T3 [Mass/Vol] 2.5 pg/mL 2.18-3.98 [facility] Modified Barium Swallow Stud yon 10-02-2024 Modified Barium Swallow Study Normal [facility] T4 Free Directon 10-02-2024 T4 FREE DIRECT 1.00 ng/dL Normal 0.76-1.46 [facility] Comment on above: Performed By: #### L 100.0100, L506.0400, L500.2500, L501.77833 ####[facility] [address] [place], [address] T4 freeOrdered By: Shay Saunders nti on 10-02-2024 Free T4 [Mass/Vol] 1.00 ng/dL 0.76-1.46 [facility] 12 Lead EKGon 10-01-2024 12 Lead EKG Normal [facility] Wound Cultureon 10-01-2024 WC Normal [facility] Comment on above: Performed By: #### M 100.3000, M100.1999 ####[facility] [address] [place], [address] Gram Stainon 09-30-2024 GS LEFT EYE Gram Stain No organisms seen No cells seen Normal [facility] Comment on above: Performed By: #### M 100.3000, M100.1999 ####[facility] [address] [place], [address] Stool Occult Blood iFOBon STOB Positive Normal [facility] Comment on above: Performed By: #### M 100.7900 ####[facility] [address] [place], [address] Stool gastrointestinal hemog lobin detection by immunologic methodOrdered By: Shay Gaxiola on 09-30-2024 Lower GI hemoglobin IA Ql (Stl) Positive Abnormal [facility] Gram stainOrdered By: Shay herr on 09-29-2024 Microscopic observation Gram stain Nom (Unsp spec) [facility] Urinalysis, Completeon 09-29 BACTERIA 1+ /hpf Normal None Seen [facility] Comment on above: Order Comment: CARMEN TER SPECIMEN Performed By: #### L 400.0001 ####[facility] [address] [place], [address] EPI,SQUAMOUS 0-5 SEEN Normal 0-5 [facility] Comment on above: Order Comment: CARMEN TER SPECIMEN Performed By: #### L 400.0001 ####[facility] [address] [place], [address] Blood manual differential co mment interpretation (narrative result)Ordered By: Shay Gaxiola on 09-28-2024 Manual differential comment Nav (Bld) [Interp] SCANNED [facility] CBC W/Diff, Automatedon 09-06 SMEAR COMMENT SCANNED Normal [facility] Comment on above: Performed By: #### L 501.5200, L100.0100, L500.4050, L501.2300 ####[facility] [address] [place], [address] Chest PA and Lateralon 09-28 Chest PA and Lateral Normal [facility] Comprehensive Metabolic Prof ilon 09-28-2024 Albumin [Mass/Vol] 3.2 g/dL Low 3.4-4.8 [facility] Comment on above: Performed By: #### L 501.5200, L100.0100, L500.4050, L501.2300 ####[facility] [address] [place], [address] Albumin/Globulin [Mass ratio] 1.1 {ratio} Normal 0.9-2.4 [facility] Comment on above: Performed By: #### L 501.5200, L100.0100, L500.4050, L501.2300 ####[facility] [address] [place], [address] ALK PHOS 75 U/L Normal 40-129 [facility] Comment on above: Performed By: #### L 501.5200, L100.0100, L500.4050, L501.2300 ####[facility] [address] [place], [address] ALT [Catalytic activity/Vol] 16 U/L Normal <=46 [facility] Comment on above: Performed By: #### L 501.5200, L100.0100, L500.4050, L501.2300 ####[facility] [address] [place], [address] AST [Catalytic activity/Vol] 20 U/L Normal <=37 [facility] Comment on above: Performed By: #### L 501.5200, L100.0100, L500.4050, L501.2300 ####[facility] [address] [place], [place], [address] Bilirubin [Mass/Vol] 0.68 mg/dL Normal 0.00-1.30 [facility] Comment on above: Performed By: #### L 501.5200, L100.0100, L500.4050, L501.2300 ####[facility] [address] [place], [address] BUN/CRE 18.5 RATIO Normal 10-20 [facility] Comment on above: Performed By: #### L 501.5200, L100.0100, L500.4050, L501.2300 ####[facility] [address] [place], [address] Calcium [Mass/Vol] 8.9 mg/dL Normal 7.6-11.0 [facility] Comment on above: Performed By: #### L 501.5200, L100.0100, L500.4050, L501.2300 ####[facility] [address] [place], [address] Chloride [Moles/Vol] 105 mmol/L Normal 98-108 [facility] Comment on above: Performed By: #### L 501.5200, L100.0100, L500.4050, L501.2300 ####[facility] [address] [place], [address] CO2 [Moles/Vol] 23.4 mmol/L Normal 21.0-32.0 [facility] Comment on above: Performed By: #### L 501.5200, L100.0100, L500.4050, L501.2300 ####[facility] [address] [place], [address] Creatinine [Mass/Vol] 0.91 mg/dL Normal 0.70-1.20 [facility] Comment on above: Performed By: #### L 501.5200, L100.0100, L500.4050, L501.2300 ####[facility] [address] [place], [address] ECRCL 43.83 ml/min Low 50-250 [facility] Comment on above: Performed By: #### L 501.5200, L100.0100, L500.4050, L501.2300 ####[facility] [address] [place], [address] GAP 9 Normal 5-15 [facility] Comment on above: Performed By: #### L 501.5200, L100.0100, L500.4050, L501.2300 ####[facility] [address] [place], [address] GFR/1.73 sq M.predicted among non-blacks MDRD (S/P/Bld) [Vol rate/Area] 81 mL/min/{1.73_m2} Normal >60 [facility] Comment on above: Result Comment: mL/m in/1.73m2 CKD-EPI Creatinine Equation (2020) Performed By: #### L 501.5200, L100.0100, L500.4050, L501.2300 ####[facility] [address] [place], [address] Globulin (S) [Mass/Vol] 3.0 g/dL Normal 2.2-4.2 [facility] Comment on above: Performed By: #### L 501.5200, L100.0100, L500.4050, L501.2300 ####[facility] [address] [place], [address] Glucose [Mass/Vol] 108 mg/dL High 70-99 [facility] Comment on above: Performed By: #### L 501.5200, L100.0100, L500.4050, L501.2300 ####[facility] [address] [place], [address] Potassium [Moles/Vol] 3.8 mmol/L Normal 3.3-5.1 [facility] Comment on above: Performed By: #### L 501.5200, L100.0100, L500.4050, L501.2300 ####[facility] [address] [place], [address] Sodium [Moles/Vol] 138 mmol/L Normal 133-145 [facility] Comment on above: Performed By: #### L 501.5200, L100.0100, L500.4050, L501.2300 ####[facility] [address] [place], [address] T PROT 6.1 g/dL Normal 5.9-8.4 [facility] Comment on above: Performed By: #### L 501.5200, L100.0100, L500.4050, L501.2300 ####[facility] [address] [place], [address] Urea nitrogen [Mass/Vol] 17 mg/dL Normal 4-19 [facility] Comment on above: Performed By: #### L 501.5200, L100.0100, L500.4050, L501.2300 ####[facility] [address] [place], [address] Magnesiumon 09-28-2024 Magnesium [Mass/Vol] 1.6 mg/dL Normal 1.5-2.2 [facility] Comment on above: Performed By: #### L 501.5200, L100.0100, L500.4050, L501.2300 ####[facility] [address] [place], [address] Phosphoruson 09-28-2024 Phosphate [Mass/Vol] 2.1 mg/dL Low 2.7-4.5 [facility] Comment on above: Performed By: #### L 501.5200, L100.0100, L500.4050, L501.2300 ####[facility] [address] [place], [address] Urinalysis, Completeon 09-28 Mucus Ql (Urine sed) 0 SEEN Normal [facility] Comment on above: Order Comment: CARMEN TER SPECIMEN Performed By: #### L 400.0001 ####[facility] [address] [place], [address] RBC 0 SEEN Normal 0-5 [facility] Comment on above: Order Comment: CARMEN TER SPECIMEN Performed By: #### L 400.0001 ####[facility] [address] [place], [address] WBC 0 SEEN Normal 0-5 [facility] Comment on above: Order Comment: CARMEN TER SPECIMEN Performed By: #### L 400.0001 ####[facility] [address] [place], [address] Vitamin B12on 09-28-2024 Cobalamin (Vitamin B12) [Mass/Vol] 1555 pg/mL High 180-914 [facility] Comment on above: Performed By: #### L 503.0106 ####[facility] [address] [place], [address] Vitamin B12 ser/plasOrdered By: Shay Calvovicky on 09-28-2024 Cobalamin (Vitamin B12) [Mass/Vol] 1555 pg/mL High 180-4 [facility] Anion gap in Serum or Plasma Ordered By: Juju Vuong on 09-26-2024 Anion gap [Moles/Vol] 11 mmol/L - [facility] BUN/creatinine ratioOrdered By: Juju Vuong on 09-26-2024 Urea nitrogen/Creatinine [Mass ratio] 23.9 mg/mg High 02-24 [facility] Basic Metabolic Profile (BMP )on 09-26-2024 BUN/CRE 23.9 RATIO High 02-24 [facility] Comment on above: Order Comment: Comme nts: NPO at OR prior to lipid panel Performed By: #### L 500.4100, L500.2500, L501.2300, L501.5200 ####[facility] [address] [place], [address] Calcium [Mass/Vol] 8.6 mg/dL Normal 7.6-11.0 [facility] Comment on above: Order Comment: Comme nts: NPO at OR prior to lipid panel Performed By: #### L 500.4100, L500.2500, L501.2300, L501.5200 ####[facility] [address] [place], [address] Chloride [Moles/Vol] 111 mmol/L High 98-108 [facility] Comment on above: Order Comment: Comme nts: NPO at OR prior to lipid panel Performed By: #### L 500.4100, L500.2500, L501.2300, L501.5200 ####[facility] [address] [place], [address] CO2 [Moles/Vol] 18.4 mmol/L Low 21.0-32.0 [facility] Comment on above: Order Comment: Comme nts: NPO at [place] prior to lipid panel Performed By: #### L 500.4100, L500.2500, L501.2300, L501.5200 ####[facility] [address] [place], [address] Creatinine [Mass/Vol] 1.02 mg/dL Normal 0.70-1.20 [facility] Comment on above: Order Comment: Comme nts: NPO at [place] prior to lipid panel Performed By: #### L 500.4100, L500.2500, L501.2300, L501.5200 ####[facility] [address] [place], [address] ECRCL 38.63 ml/min Low 50-250 [facility] Comment on above: Order Comment: Comme nts: NPO at [place] prior to lipid panel Performed By: #### L 500.4100, L500.2500, L501.2300, L501.5200 ####[facility] [address] [place], [address] GAP 11 Normal 5-15 [facility] Comment on above: Order Comment: Comme nts: NPO at [place] prior to lipid panel Performed By: #### L 500.4100, L500.2500, L501.2300, L501.5200 ####[facility] [address] [place], [address] GFR/1.73 sq M.predicted among non-blacks MDRD (S/P/Bld) [Vol rate/Area] 71 mL/min/{1.73_m2} Normal >60 [facility] Comment on above: Order Comment: Comme nts: NPO at [place] prior to lipid panel Result Comment: mL/m in/1.73m2 CKD-EPI Creatinine Equation (2020) Performed By: #### L 500.4100, L500.2500, L501.2300, L501.5200 ####[facility] [address] [place], [address] Glucose [Mass/Vol] 90 mg/dL Normal 70-99 [facility] Comment on above: Order Comment: Comme nts: NPO at OR prior to lipid panel Performed By: #### L 500.4100, L500.2500, L501.2300, L501.5200 ####[facility] [address] [place], [address] Potassium [Moles/Vol] 4.4 mmol/L Normal 3.3-5.1 [facility] Comment on above: Order Comment: Comme nts: NPO at OR prior to lipid panel Result Comment: Hemo lysis present, Results??could be affected.?? Performed By: #### L 500.4100, L500.2500, L501.2300, L501.5200 ####[facility] [address] [place], [address] Sodium [Moles/Vol] 140 mmol/L Normal 133-145 [facility] Comment on above: Order Comment: Comme nts: NPO at [place] prior to lipid panel Performed By: #### L 500.4100, L500.2500, L501.2300, L501.5200 ####[facility] [address] [place], [address] Urea nitrogen [Mass/Vol] 24 mg/dL High 4-19 [facility] Comment on above: Order Comment: Comme nts: NPO at OR prior to lipid panel Performed By: #### L 500.4100, L500.2500, L501.2300, L501.5200 ####[facility] [address] [place], [address] CBC-Complete Blood Cnt No Di ffon 09-26-2024 Erythrocyte distribution width (RBC) [Ratio] 14.6 % Normal 11.6-14.6 [facility] Comment on above: Performed By: #### L 100.0500 ####[facility] [address] [place], [address] Hematocrit (Bld) [Volume fraction] 41.0 % Normal 40-54 [facility] Comment on above: Performed By: #### L 100.0500 ####[facility] [address] [place], [address] Hemoglobin (Bld) [Mass/Vol] 13.3 g/dL Normal 13.0-16.5 [facility] Comment on above: Performed By: #### L 100.0500 ####[facility] [address] [place], [address] MCH (RBC) [Entitic mass] 29.9 pg Normal 27.0-32.0 [facility] Comment on above: Performed By: #### L 100.0500 ####[facility] [address] [place], [address] MCHC (RBC) [Mass/Vol] 32.4 g/dL Normal 32-36 [facility] Comment on above: Performed By: #### L 100.0500 ####[facility] [address] [place], [address] MCV (RBC) [Entitic vol] 92.1 fL Normal 80-94 [facility] Comment on above: Performed By: #### L 100.0500 ####[facility] [address] [place], [address] Platelet mean volume (Bld) [Entitic vol] 11.6 fL Normal 6.2-12.0 [facility] Comment on above: Performed By: #### L 100.0500 ####[facility] [address] [place], [address] Platelets (Bld) [#/Vol] 141 10*3/uL Low 150-450 [facility] Comment on above: Performed By: #### L 100.0500 ####[facility] [address] [place], [place], [phone] RBC (Bld) [#/Vol] 4.45 10*6/uL Low 4.6-6.2 [facility] Comment on above: Performed By: #### L 100.0500 ####[facility] [address] [place], [place], [phone] RDW SD 48.9 fl High 35.1-43.9 [facility] Comment on above: Performed By: #### L 100.0500 ####[facility] [address] [place], [place], [phone]) WBC (Bld) [#/Vol] 10.1 10*3/uL Normal 4.4-11.0 [facility] Comment on above: Performed By: #### L 100.0500 ####[facility] [address] [place], [place], [id number] Calculated very low density lipoprotein (VLDL) cholesterol measurementOrdered By: Juju Vuong on 09-26-2024 Calculated very low density lipoprotein (VLDL) cholesterol measurement 15 mg/dL 5-40 [facility] Carbon dioxide, total [Moles /volume] in Central venous bloodOrdered By: Juju Vuong on 09-26-2024 CO2 [Moles/Vol] 18.4 mmol/L Low 21.0-32.0 [facility] Chloride assayOrdered By: Benito Vuong on 09-26-2024 Chloride [Moles/Vol] 111 mmol/L High 98-108 [facility] Erythrocyte distribution wid th ratioOrdered By: Juju Vuong on 09-26-2024 Erythrocyte distribution width (RBC) [Ratio] 14.6 % 11.6-14.6 [facility] Erythrocyte distribution wid th standard deviationOrdered By: Juju Vuong on 09-26-2024 Erythrocyte distribution width (RBC) [Ratio] 48.9 fl High 35.1-43.9 [facility] Glomerular filtration rate ( GFR) estimation/1.73 sq m using serum, plasma, or whole bOrdered By: Juju Vuong on 09-26-2024 GFR/1.73 sq M.predicted among non-blacks MDRD (S/P/Bld) [Vol rate/Area] 71 mL/min/{1.73_m2} >60 [facility] Comment on above: mL/min/1.73m2 CKD-EP I Creatinine Equation (2020) Hematocrit Auto (Bld) [Volum e fraction]Ordered By: Juju Vuong on 09-26-2024 Hematocrit (Bld) [Volume fraction] 41.0 % 40-54 [facility] Hemoglobin measurementOrdere d By: Juju Vuong on 09-26-2024 Hemoglobin (Bld) [Mass/Vol] 13.3 g/dL 13.0-16.5 [facility] LDL calc ser/plasOrdered By: Juju Vuong on 09-26-2024 Cholesterol in LDL [Mass/Vol] 103 mg/dL [facility] Comment on above: Iebwpjrqvs=603-717 m g/dL & Higher Fbky=701 mg/dL or greater Lipid Profileon 09-26-2024 CHOL:HDL 2.99 Normal [facility] Comment on above: Order Comment: Comme nts: NPO at OR prior to lipid panel Performed By: #### L 500.4100, L500.2500, L501.2300, L501.5200 ####[facility] [address] [place], [place], [id number] Cholesterol [Mass/Vol] 176 mg/dL Normal <=200 [facility] Comment on above: Order Comment: Comme nts: NPO at [place] prior to lipid panel Result Comment: Chol esterol level, Desirable <200 mg/dLBorderline high cholesterol 200-239 mg/dLHigh cholesterol >=240 mg/dLRecommendations of the NCEP Adult Treatment Panel for thefollowing risk-cutoff thresholds for the [place] Americanpopulation. Performed By: #### L 500.4100, L500.2500, L501.2300, L501.5200 ####[facility] [address] [place], [address] Cholesterol in HDL [Mass/Vol] 59 mg/dL Normal [facility] Comment on above: Order Comment: Comme nts: NPO at OR prior to lipid panel Result Comment: Gisselle onal Cholesterol Education Program (NCEP) guidelines:<40 mg/dL: Low HDL-cholesterol (major risk factor for CHD)>= 60 mg/dL: High HDL-cholesterol (negative risk factor forCHD)HDL-cholesterol is affected by a number of factors, e.g.smoking, exercise, hormones, sex and age. Performed By: #### L 500.4100, L500.2500, L501.2300, L501.5200 ####[facility] [address] [place], [address] Cholesterol in LDL [Mass/Vol] 103 mg/dL Normal [facility] Comment on above: Order Comment: Comme nts: NPO at OR prior to lipid panel Result Comment: Bord bqomsj=063-657 mg/dL Higher Uktx=834 mg/dL or greater Performed By: #### L 500.4100, L500.2500, L501.2300, L501.5200 ####[facility] [address] [place], [address] Cholesterol in VLDL [Mass/Vol] 15 mg/dL Normal 5-40 [facility] Comment on above: Order Comment: Comme nts: NPO at OR prior to lipid panel Performed By: #### L 500.4100, L500.2500, L501.2300, L501.5200 ####[facility] [address] [place], [address] Triglyceride [Mass/Vol] 73 mg/dL Normal [facility] Comment on above: Order Comment: Comme nts: NPO at OR prior to lipid panel Result Comment: The drugs N-Acetylcysteine and Metamizole may falselydepress this assay.Normal range: <150 mg/dLBorderline High: 150-199 mg/dLHigh: 200-499 mg/dLVery High: >500 mg/dL Performed By: #### L 500.4100, L500.2500, L501.2300, L501.5200 ####[facility] [address] [place], [place], [address] MCV (mean corpuscular volume ) determinationOrdered By: Juju Vuong on 09-26-2024 MCV (RBC) [Entitic vol] 92.1 fL 80-94 [facility] MR/CON.PCM.NEon 09-26-2024 MR/CON.PCM.NE Normal [facility] Magnesiumon 09-26-2024 Magnesium [Mass/Vol] 2.0 mg/dL Normal 1.5-2.2 [facility] Comment on above: Order Comment: Comme nts: NPO at [place] prior to lipid panel Performed By: #### L 500.4100, L500.2500, L501.2300, L501.5200 ####[facility] [address] [facility] [place], [place], [address] Magnesium measurement (mass/ volume)Ordered By: Juju Vuong on 09-26-2024 Magnesium (Unsp spec) [Mass/Vol] 2.0 mg/dL 1.5-2.2 [facility] Mean corpuscular hemoglobin (MCH) determinationOrdered By: Juju Vuong on 09-26-2024 MCH (RBC) [Entitic mass] 29.9 pg 27.0-32.0 [facility] Mean corpuscular hemoglobin concentration (MCHC) determinationOrdered By: Juju Vuong on 09-26-2024 MCHC (RBC) [Mass/Vol] 32.4 g/dL 32-36 [facility] Mean platelet volume determi nationOrdered By: Juju Vuong on 09-26-2024 Platelet mean volume (Bld) [Entitic vol] 11.6 fL 6.2-12.0 [facility] Phosphoruson 09-26-2024 Phosphate [Mass/Vol] 2.9 mg/dL Normal 2.7-4.5 [facility] Comment on above: Order Comment: Comme nts: NPO at [place] prior to lipid panel Performed By: #### L 500.4100, L500.2500, L501.2300, L501.5200 ####[facility] [address] [place], [address] Platelet countOrdered By: Benito Vuong on 09-26-2024 Platelets (Bld) [#/Vol] 141 10*3/uL Low 150-450 [facility] Potassium measurement (mass/ volume)Ordered By: Juju Vuong on 09-26-2024 Potassium (Unsp spec) [Mass/Vol] 4.4 mmol/L 3.3-5.1 [facility] Comment on above: Hemolysis present, R esults could be affected. RBC Auto (Bld) [#/Vol]Ordere d By: Juju Vuong on 09-26-2024 RBC (Bld) [#/Vol] 4.45 10*6/uL Low 4.6-6.2 [facility] Screening total cholesterol/ high density lipoprotein (HDL) cholesterol ratioOrdered By: Juju Vuong on 09-26-2024 Cholesterol.total/Chol esterol in HDL [Mass ratio] 2.99 {ratio} [facility] Serum creatinine measurement (mass/volume)Ordered By: Juju Vuong on 09-26-2024 Creatinine [Mass/Vol] 1.02 mg/dL 0.70-1.20 [facility] Serum glucose measurement (m ass/volume)Ordered By: Juju Vuong on 09-26-2024 Glucose [Mass/Vol] 90 mg/dL 70-99 [facility] Serum or plasma calcium patrick urement (mass/volume)Ordered By: Juju Vuong on 09-26-2024 Calcium [Mass/Vol] 8.6 mg/dL 7.6-11.0 [facility] Serum or plasma cholesterol in HDL measurement (mass/volume)Ordered By: Juju Vuong on 09-26-2024 Cholesterol in HDL [Mass/Vol] 59 mg/dL >40 [facility] Comment on above: National Cholesterol Education Program (NCEP) guidelines:<40 mg/dL: Low HDL-cholesterol (major risk factor for CHD)>= 60 mg/dL: High HDL-cholesterol (negative risk factor for CHD)HDL-cholesterol is affected by a number of factors, e.g. smoking, exercise, hormones, sex and age. Serum or plasma cholesterol measurement (mass/volume)Ordered By: Juju Vuong on 09-26-2024 Cholesterol [Mass/Vol] 176 mg/dL <201 [facility] Comment on above: Cholesterol level, D esirable <200 mg/dLBorderline high cholesterol 200-239 mg/dLHigh cholesterol >=240 mg/dLRecommendations of the NCEP Adult Treatment Panel for the following risk-cutoff thresholds for the [place] population. Serum or plasma urea nitroge n measurement (mass/volume)Ordered By: Juju Vuong on 09-26-2024 Urea nitrogen [Mass/Vol] 24 mg/dL High 4-19 [facility] Sodium levelOrdered By: Pili Vuong on 09-26-2024 Sodium [Moles/Vol] 140 mmol/L 133-145 [facility] Triglycerides measurementOrd ered By: Juju Vuong on 09-26-2024 Triglyceride [Mass/Vol] 73 mg/dL <199 [facility] Comment on above: The drugs N-Acetylcy steine and Metamizole may falsely depress this assay. Normal range: <150 mg/dLBorderline High: 150-199 mg/dLHigh: 200-499 mg/dLVery High: >500 mg/dL White blood cell (WBC) count Ordered By: Juju Vuong on 09-26-2024 WBC (Bld) [#/Vol] 10.1 10*3/uL 4.4-11.0 [facility] Absolute lymphocyte countOrd ered By: Gerardo Escalona on 09-25-2024 Lymphocytes Auto (Unsp spec) [#/Vol] 1.37 10*3/uL 0.83-4.51 [facility] Absolute neutrophil countOrd ered By: Gerardo Escalona on 09-25-2024 Neutrophils (Bld) [#/Vol] 9.2 10*3/uL High 2.0-7.7 [facility] Automated lymphocyte count a s percentage of total leukocytesOrdered By: Gerardo Escalona on 09-25-2024 Lymphocytes/100 WBC Auto (Unsp spec) 11.5 % Low 19-41 [facility] Basophil percentageOrdered B y: Gerardo Escalona on 09-25-2024 Basophils/100 WBC (Bld) 0.4 % 0-1 [facility] Bilirubin, totalOrdered By: Gerardo Escalona on 09-25-2024 Bilirubin [Mass/Vol] 0.79 mg/dL 0.00-1.30 [facility] Brain without Contraston Brain without Contrast Normal [facility] CBC W/Diff, Automatedon - Platelets (Bld) [#/Vol] 209 10*3/uL Normal 150-450 [facility] Comment on above: Performed By: #### L 100.0100, L501.2300, L501.9520, L500.4050 ####[facility] [address] [place], [address] Carotid Duplex Ultrasoundon 09-25-2024 Carotid Duplex Ultrasound Normal [facility] Comprehensive Metabolic Prof ilon 09-25-2024 Albumin [Mass/Vol] 3.3 g/dL Low 3.4-4.8 [facility] Comment on above: Performed By: #### L 100.0100, L501.2300, L501.9520, L500.4050 ####[facility] [address] [place], [address] Albumin/Globulin [Mass ratio] 1.1 {ratio} Normal 0.9-2.4 [facility] Comment on above: Performed By: #### L 100.0100, L501.2300, L501.9520, L500.4050 ####[facility] [address] [place], [address] ALK PHOS 70 U/L Normal 40-129 [facility] Comment on above: Performed By: #### L 100.0100, L501.2300, L501.9520, L500.4050 ####[facility] [address] [place], [address] ALT [Catalytic activity/Vol] 7 U/L Normal <=46 [facility] Comment on above: Performed By: #### L 100.0100, L501.2300, L501.9520, L500.4050 ####[facility] [address] [place], [address] AST [Catalytic activity/Vol] 17 U/L Normal <=37 [facility] Comment on above: Performed By: #### L 100.0100, L501.2300, L501.9520, L500.4050 ####[facility] [address] [place], [address] Bilirubin [Mass/Vol] 0.79 mg/dL Normal 0.00-1.30 [facility] Comment on above: Performed By: #### L 100.0100, L501.2300, L501.9520, L500.4050 ####[facility] [address] [place], [address] BUN/CRE 20.9 RATIO High 10-20 [facility] Comment on above: Performed By: #### L 100.0100, L501.2300, L501.9520, L500.4050 ####[facility] [address] [place], [address] Calcium [Mass/Vol] 8.7 mg/dL Normal 7.6-11.0 [facility] Comment on above: Performed By: #### L 100.0100, L501.2300, L501.9520, L500.4050 ####[facility] [address] [place], [address] Chloride [Moles/Vol] 110 mmol/L High 98-108 [facility] Comment on above: Performed By: #### L 100.0100, L501.2300, L501.9520, L500.4050 ####[facility] [address] [place], [address] CO2 [Moles/Vol] 20.3 mmol/L Low 21.0-32.0 [facility] Comment on above: Performed By: #### L 100.0100, L501.2300, L501.9520, L500.4050 ####[facility] [address] [place], [address] Creatinine [Mass/Vol] 0.96 mg/dL Normal 0.70-1.20 [facility] Comment on above: Performed By: #### L 100.0100, L501.2300, L501.9520, L500.4050 ####[facility] [address] [place], [address] ECRCL 41.05 ml/min Low 50-250 [facility] Comment on above: Performed By: #### L 100.0100, L501.2300, L501.9520, L500.4050 ####[facility] [address] [place], [address] GAP 11 Normal 5-15 [facility] Comment on above: Performed By: #### L 100.0100, L501.2300, L501.9520, L500.4050 ####[facility] [address] [place], [address] GFR/1.73 sq M.predicted among non-blacks MDRD (S/P/Bld) [Vol rate/Area] 76 mL/min/{1.73_m2} Normal >60 [facility] Comment on above: Result Comment: mL/m in/1.73m2 CKD-EPI Creatinine Equation (2020) Performed By: #### L 100.0100, L501.2300, L501.9520, L500.4050 ####[facility] [address] [place], [address] Globulin (S) [Mass/Vol] 2.9 g/dL Normal 2.2-4.2 [facility] Comment on above: Performed By: #### L 100.0100, L501.2300, L501.9520, L500.4050 ####[facility] [address] [place], [address] Glucose [Mass/Vol] 101 mg/dL High 70-99 [facility] Comment on above: Performed By: #### L 100.0100, L501.2300, L501.9520, L500.4050 ####[facility] [address] [place], [address] Potassium [Moles/Vol] 4.0 mmol/L Normal 3.3-5.1 [facility] Comment on above: Performed By: #### L 100.0100, L501.2300, L501.9520, L500.4050 ####[facility] [address] [place], [address] Sodium [Moles/Vol] 142 mmol/L Normal 133-145 [facility] Comment on above: Performed By: #### L 100.0100, L501.2300, L501.9520, L500.4050 ####[facility] [address] [place], [address] T PROT 6.2 g/dL Normal 5.9-8.4 [facility] Comment on above: Performed By: #### L 100.0100, L501.2300, L501.9520, L500.4050 ####[facility] [address] [place], [address] Urea nitrogen [Mass/Vol] 20 mg/dL High 4-19 [facility] Comment on above: Performed By: #### L 100.0100, L501.2300, L501.9520, L500.4050 ####[facility] [address] [place], [address] Echo Completeon 09-25-2024 Echo Complete Normal [facility] Eosinophil percentageOrdered By: Gerardo Escalona on 09-25-2024 Eosinophils/100 WBC (Bld) 3.3 % 0-5 [facility] Hemoglobin A1con 09-25-2024 HbA1c (Bld) [Mass fraction] 5.4 % Normal <=5.6 [facility] Comment on above: Result Comment: Norm al < 5.7 % Prediabetic 5.7 - 6.4 % Diabetic >or= 6.5 % Please note range changes. Performed By: #### L 501.9985 ####[facility] [address] [place], [place], [id number] Hemoglobin A1c percentageOrd ered By: Juju Vuong on 09-25-2024 HbA1c (Bld) [Mass fraction] 5.4 % <5.7 [facility] Comment on above: Normal < 5.7 % Predi abetic 5.7 - 6.4 % Diabetic >or= 6.5 % Please note range changes. Immature granulocytes/100 WB C Auto (Bld)Ordered By: Gerardo Escalona on 09-25-2024 Immature granulocytes/100 WBC (Bld) 0.700 % 0.0-0.9 [facility] Comment on above: IG% - Immature Granu locytes (promyelocytes, myelocytes and metamyelocytes) > 1% indicates that a LEFT SHIFT is Present. Laboratory - Chemistry and C hemistry - challengeOrdered By: Gerardo Escalona on 09-25-2024 AST [Catalytic activity/Vol] 17 U/L <38 [facility] Magnesiumon 09-25-2024 Magnesium [Mass/Vol] 2.1 mg/dL Normal 1.5-2.2 [facility] Comment on above: Performed By: #### L 501.5200 ####[facility] [address] [place], [address] Monocyte percentageOrdered B y: Gerardo Escalona on 09-25-2024 Monocytes/100 WBC (Bld) 7.3 % 0-10 [facility] Neutrophil percentageOrdered By: Gerardo Escalona on 09-25-2024 Neutrophils/100 WBC (Bld) 76.8 % High 47-70 [facility] Nucleated red blood cell per centageOrdered By: Gerardo Escalona on 09-25-2024 Nucleated RBC/100 WBC (Bld) [Ratio] 0 % 0-5 [facility] Phosphoruson 09-25-2024 Phosphate [Mass/Vol] 2.9 mg/dL Normal 2.7-4.5 [facility] Comment on above: Performed By: #### L 100.0100, L501.2300, L501.9520, L500.4050 ####[facility] [address] [place], [address] Serum globulin measurementOr dered By: Gerardo Escalona on 09-25-2024 Globulin (S) [Mass/Vol] 2.9 g/dL 2.2-4.2 [facility] Serum or plasma alanine orozco otransferase (ALT) measurementOrdered By: Gerardo Escalona on 09-25-2024 ALT [Catalytic activity/Vol] 7 U/L <47 [facility] Serum or plasma albumin patrick urement (mass/volume)Ordered By: Gerardo Escalona on 09-25-2024 Albumin [Mass/Vol] 3.3 g/dL Low 3.4-4.8 [facility] Serum or plasma albumin/glob ulin mass ratioOrdered By: Gerardo Escalona on 09-25-2024 Albumin/Globulin [Mass ratio] 1.1 {ratio} 0.9-2.4 [facility] Serum or plasma alkaline mei sphatase measurementOrdered By: Gerardo Escalona on 09-25-2024 ALP [Catalytic activity/Vol] 70 U/L 40-129 [facility] TSH DL <= 0.005 mIU/L QnOrde red By: Gerardo Escalona on 09-25-2024 TSH Qn 0.490 uIU/mL 0.300-4.20 0 [facility] Thyroid Stim Hormone (TSH)on 09-25-2024 TSH 0.490 uIU/mL Normal 0.300-4.20 0 [facility] Comment on above: Performed By: #### L 100.0100, L501.2300, L501.9520, L500.4050 ####[facility] [address] [place], [place], [address] Total proteinOrdered By: Bernard Escalona on 09-25-2024 Protein [Mass/Vol] 6.2 g/dL 5.9-8.4 [facility] Vitamin D,25 Hydroxyon 09-25 Vitamin D 25-OH 9.4 ng/mL Low 30-100 [facility] Comment on above: Result Comment: Layne min D StatusDeficiency: <20 ng/mL (50nmol/L)Insufficiency: 20-30 ng/mL (50-75 nmol/L)Sufficiency: 30-100 ng/mL (75-250 nmol/L)Toxicity: >100 ng/mL (>250 nmol/L) Performed By: #### L 506.1001 ####[facility] [address] [place], [place], [id number] Lead EKGon 09-24-2024 12 Lead EKG Normal [facility] Absolute lymphocyte countOrd ered By: Gerardo Duque on 09-24-2024 Lymphocytes Auto (Unsp spec) [#/Vol] 1.55 10*3/uL 0.83-4.51 [facility] Absolute neutrophil countOrd ered By: Gerardo Duque on 09-24-2024 Neutrophils (Bld) [#/Vol] 8.5 10*3/uL High 2.0-7.7 [facility] Anion gap in Serum or Plasma Ordered By: Gerardo Duque on 09-24-2024 Anion gap [Moles/Vol] 10 mmol/L 09-19 [facility] Automated lymphocyte count a s percentage of total leukocytesOrdered By: Gerardo Duque on 09-24-2024 Lymphocytes/100 WBC Auto (Unsp spec) 13.3 % Low 19-41 [facility] BUN/creatinine ratioOrdered By: Gerardo Duque on 09-24-2024 Urea nitrogen/Creatinine [Mass ratio] 19.6 mg/mg 02-24 [facility] Basic Metabolic Profile (BMP )on 09-24-2024 BUN/CRE 19.6 RATIO Normal 02-24 [facility] Comment on above: Performed By: #### L 100.0100, L500.2500 ####[facility] [address] [place], [address] Calcium [Mass/Vol] 9.2 mg/dL Normal 7.6-11.0 [facility] Comment on above: Performed By: #### L 100.0100, L500.2500 ####[facility] [address] [place], [address] Chloride [Moles/Vol] 108 mmol/L Normal 98-108 [facility] Comment on above: Performed By: #### L 100.0100, L500.2500 ####[facility] [address] [place], [address] CO2 [Moles/Vol] 24.8 mmol/L Normal 21.0-32.0 [facility] Comment on above: Performed By: #### L 100.0100, L500.2500 ####[facility] [address] [place], [address] Creatinine [Mass/Vol] 1.21 mg/dL High 0.70-1.20 [facility] Comment on above: Performed By: #### L 100.0100, L500.2500 ####[facility] [address] [place], [address] ECRCL 36.71 ml/min Low 50-250 [facility] Comment on above: Performed By: #### L 100.0100, L500.2500 ####[facility] [address] [place], [address] GAP 10 Normal 5-15 [facility] Comment on above: Performed By: #### L 100.0100, L500.2500 ####[facility] [address] [place], [address] GFR/1.73 sq M.predicted among non-blacks MDRD (S/P/Bld) [Vol rate/Area] 58 mL/min/{1.73_m2} Low >60 [facility] Comment on above: Result Comment: mL/m in/1.73m2 CKD-EPI Creatinine Equation (2020) Performed By: #### L 100.0100, L500.2500 ####[facility] [address] [place], [address] Glucose [Mass/Vol] 105 mg/dL High 70-99 [facility] Comment on above: Performed By: #### L 100.0100, L500.2500 ####[facility] [address] [place], [address] Potassium [Moles/Vol] 4.4 mmol/L Normal 3.3-5.1 [facility] Comment on above: Result Comment: Hemo lysis present, Results??could be affected.?? Performed By: #### L 100.0100, L500.2500 ####[facility] [address] [place], [address] Sodium [Moles/Vol] 143 mmol/L Normal 133-145 [facility] Comment on above: Performed By: #### L 100.0100, L500.2500 ####[facility] [address] [place], [address] Urea nitrogen [Mass/Vol] 24 mg/dL High 4-19 [facility] Comment on above: Performed By: #### L 100.0100, L500.2500 ####[facility] [address] [place], [address] Basophil percentageOrdered B y: Gerardo Duque on 09-24-2024 Basophils/100 WBC (Bld) 0.4 % 0-1 [facility] Bilirubin Test strip Ql (U)O rdered By: Gerardo Duque on 09-24-2024 Bilirubin Ql (U) Negative Negative [facility] CBC W/Diff, Automatedon 09-06 Absolute Lymph 1.55 X10 3/uL Normal 0.83-4.51 [facility] Comment on above: Performed By: #### L 100.0100, L500.2500 ####[facility] [address] [place], [address] Absolute Neut 8.5 X10 3/uL High 2.0-7.7 [facility] Comment on above: Performed By: #### L 100.0100, L500.2500 ####[facility] [address] [place], [address] Basophils/100 WBC (Bld) 0.4 % Normal 0-1 [facility] Comment on above: Performed By: #### L 100.0100, L500.2500 ####[facility] [address] [place], [address] Eosinophils/100 WBC (Bld) 5.8 % High 0-5 [facility] Comment on above: Performed By: #### L 100.0100, L500.2500 ####[facility] [address] [place], [address] Erythrocyte distribution width (RBC) [Ratio] 14.6 % Normal 11.6-14.6 [facility] Comment on above: Performed By: #### L 100.0100, L500.2500 ####[facility] [address] [place], [address] Hematocrit (Bld) [Volume fraction] 42.7 % Normal 40-54 [facility] Comment on above: Performed By: #### L 100.0100, L500.2500 ####[facility] [address] [place], [address] Hemoglobin (Bld) [Mass/Vol] 14.1 g/dL Normal 13.0-16.5 [facility] Comment on above: Performed By: #### L 100.0100, L500.2500 ####[facility] [address] [place], [address] IG% 1.100 High 0.0-0.9 [facility] Comment on above: Result Comment: IG% - Immature Granulocytes (promyelocytes, myelocytes andmetamyelocytes) > 1% indicates that a LEFT SHIFT is Present. Performed By: #### L 100.0100, L500.2500 ####[facility] [address] [place], [address] Lymphocytes/100 WBC (Bld) 13.3 % Low 19-41 [facility] Comment on above: Performed By: #### L 100.0100, L500.2500 ####[facility] [address] [place], [address] MCH (RBC) [Entitic mass] 30.1 pg Normal 27.0-32.0 [facility] Comment on above: Performed By: #### L 100.0100, L500.2500 ####[facility] [address] [place], [address] MCHC (RBC) [Mass/Vol] 33.0 g/dL Normal 32-36 [facility] Comment on above: Performed By: #### L 100.0100, L500.2500 ####[facility] [address] [place], [address] MCV (RBC) [Entitic vol] 91.0 fL Normal 80-94 [facility] Comment on above: Performed By: #### L 100.0100, L500.2500 ####[facility] [address] [place], [address] Monocytes/100 WBC (Bld) 6.5 % Normal 0-10 [facility] Comment on above: Performed By: #### L 100.0100, L500.2500 ####[facility] [address] [place], [address] Neutrophils/100 WBC (Bld) 72.9 % High 47-70 [facility] Comment on above: Performed By: #### L 100.0100, L500.2500 ####[facility] [address] [place], [address] Nucleated RBC (Bld) [#/Vol] 0 10*3/uL Normal 0-5 [facility] Comment on above: Performed By: #### L 100.0100, L500.2500 ####[facility] [address] [place], [address] Platelet mean volume (Bld) [Entitic vol] 11.2 fL Normal 6.2-12.0 [facility] Comment on above: Performed By: #### L 100.0100, L500.2500 ####[facility] [address] [place], [address] Platelets (Bld) [#/Vol] 203 10*3/uL Normal 150-450 [facility] Comment on above: Performed By: #### L 100.0100, L500.2500 ####[facility] [address] [place], [address] RBC (Bld) [#/Vol] 4.69 10*6/uL Normal 4.6-6.2 [facility] Comment on above: Performed By: #### L 100.0100, L500.2500 ####[facility] [address] [place], [address] RDW SD 49.0 fl High 35.1-43.9 [facility] Comment on above: Performed By: #### L 100.0100, L500.2500 ####[facility] [address] [place], [address] WBC (Bld) [#/Vol] 11.7 10*3/uL High 4.4-11.0 [facility] Comment on above: Performed By: #### L 100.0100, L500.2500 ####[facility] [address] [place], [address] Carbon dioxide, total [Moles /volume] in Central venous bloodOrdered By: Gerardo Duque on 09-24-2024 CO2 [Moles/Vol] 24.8 mmol/L 21.0-32.0 [facility] Chloride assayOrdered By: Arvind Duque on 09-24-2024 Chloride [Moles/Vol] 108 mmol/L 98-108 [facility] Emergency Department Summary on 09-24-2024 Emergency Department Summary Normal [facility] Eosinophil percentageOrdered By: Gerardo Duque on 09-24-2024 Eosinophils/100 WBC (Bld) 5.8 % High 0-5 [facility] Erythrocyte distribution wid th ratioOrdered By: Gerardo Duque on 09-24-2024 Erythrocyte distribution width (RBC) [Ratio] 14.6 % 11.6-14.6 [facility] Erythrocyte distribution wid th standard deviationOrdered By: Gerardo Duque on 09-24-2024 Erythrocyte distribution width (RBC) [Ratio] 49.0 fl High 35.1-43.9 [facility] Glomerular filtration rate ( GFR) estimation/1.73 sq m using serum, plasma, or whole bOrdered By: Gerardo Duque on 09-24-2024 GFR/1.73 sq M.predicted among non-blacks MDRD (S/P/Bld) [Vol rate/Area] 58 mL/min/{1.73_m2} Low >60 [facility] Comment on above: mL/min/1.73m2 CKD-EP I Creatinine Equation (2020) H AND P Exam - [facility] 09-24-2024 H&P Exam - Hospitalist Normal [facility] HIP, UNI W/ Pelvis 2-3 Views on 09-24-2024 HIP, UNI W/ Pelvis 2-3 Views Normal [facility] Hematocrit Auto (Bld) [Volum e fraction]Ordered By: Gerardo Duque on 09-24-2024 Hematocrit (Bld) [Volume fraction] 42.7 % 40-54 [facility] Hemoglobin measurementOrdere d By: Gerardo Duque on 09-24-2024 Hemoglobin (Bld) [Mass/Vol] 14.1 g/dL 13.0-16.5 [facility] Immature granulocytes/100 WB C Auto (Bld)Ordered By: Gerardo Duque on 09-24-2024 Immature granulocytes/100 WBC (Bld) 1.100 % High 0.0-0.9 [facility] Comment on above: IG% - Immature Granu locytes (promyelocytes, myelocytes and metamyelocytes) > 1% indicates that a LEFT SHIFT is Present. Ketones Test strip Ql (U)Ord ered By: Gerardo Duque on 09-24-2024 Ketones Ql (U) 15 mg/dl High Negative [facility] MCV (mean corpuscular volume ) determinationOrdered By: Gerardo Duque on 09-24-2024 MCV (RBC) [Entitic vol] 91.0 fL 80-94 [facility] Magnesium measurement (mass/ volume)Ordered By: Gerardo Escalona on 09-24-2024 Magnesium (Unsp spec) [Mass/Vol] 2.1 mg/dL 1.5-2.2 [facility] Mean corpuscular hemoglobin (MCH) determinationOrdered By: Gerardo Duque on 09-24-2024 MCH (RBC) [Entitic mass] 30.1 pg 27.0-32.0 [facility] Mean corpuscular hemoglobin concentration (MCHC) determinationOrdered By: Gerardo Duque on 09-24-2024 MCHC (RBC) [Mass/Vol] 33.0 g/dL 32-36 [facility] Mean platelet volume determi nationOrdered By: Gerardo Duque on 09-24-2024 Platelet mean volume (Bld) [Entitic vol] 11.2 fL 6.2-12.0 [facility] Microscopic analysis of urin e for red blood cells (RBC)Ordered By: Gerardo Duque on 09-24-2024 Microscopic analysis of urine for red blood cells (RBC) 0-5 SEEN /hpf 0-5 [facility] Monocyte percentageOrdered B y: Gerardo Duque on 09-24-2024 Monocytes/100 WBC (Bld) 6.5 % 0-10 [facility] Mucus LM Ql (Urine sed)Order ed By: Gerardo Duque on 09-24-2024 Mucus Ql (Urine sed) 0 SEEN /hpf [facility] Neutrophil percentageOrdered By: Gerardo Duque on 09-24-2024 Neutrophils/100 WBC (Bld) 72.9 % High 47-70 [facility] Nitrite Test strip Ql (U)Ord ered By: Gerardo Duque on 09-24-2024 Nitrite Ql (U) Negative Negative [facility] Nucleated red blood cell per centageOrdered By: Gerardo Duque on 09-24-2024 Nucleated RBC/100 WBC (Bld) [Ratio] 0 % 0-5 [facility] Pelvis without IV Contraston 09-24-2024 Pelvis without IV Contrast Normal [facility] Platelet countOrdered By: Arvind Duque on 09-24-2024 Platelets (Bld) [#/Vol] 203 10*3/uL 150-450 [facility] Potassium measurement (mass/ volume)Ordered By: Gerardo Duque on 09-24-2024 Potassium (Unsp spec) [Mass/Vol] 4.4 mmol/L 3.3-5.1 [facility] Comment on above: Hemolysis present, R esults could be affected. Protein Test strip Ql (U)Ord ered By: Gerardo Duque on 09-24-2024 Protein Ql (U) 30 mg/dl High Negative [facility] RBC Auto (Bld) [#/Vol]Ordere d By: Gerardo Duque on 09-24-2024 RBC (Bld) [#/Vol] 4.69 10*6/uL 4.6-6.2 [facility] Serum creatinine measurement (mass/volume)Ordered By: Gerardo Duque on 09-24-2024 Creatinine [Mass/Vol] 1.21 mg/dL High 0.70-1.20 [facility] Serum glucose measurement (m ass/volume)Ordered By: Gerardo Duque on 09-24-2024 Glucose [Mass/Vol] 105 mg/dL High 70-99 [facility] Serum or plasma calcium patrick urement (mass/volume)Ordered By: Gerardo Duque on 09-24-2024 Calcium [Mass/Vol] 9.2 mg/dL 7.6-11.0 [facility] Serum or plasma urea nitroge n measurement (mass/volume)Ordered By: Gerardo Duque on 09-24-2024 Urea nitrogen [Mass/Vol] 24 mg/dL High 4-19 [facility] Sodium levelOrdered By: Gerardo Duque on 05-20-2025 Sodium [Moles/Vol] 143 mmol/L 133-145 [facility] Squamous epithelial cells de tection in urine sediment by light microscopyOrdered By: Gerardo Duque on 09-24-2024 Epithelial cells.squamous LM Ql (Urine sed) 0-5 SEEN /hpf 0-5 [facility] Urinalysis, Completeon 09-24 EPI,SQUAMOUS 0-5 SEEN Normal 0-5 [facility] Comment on above: Order Comment: CLEAN CATCH Performed By: #### L 400.0001 ####[facility] [address] [place], [address] RBC 0-5 SEEN Normal 0-5 [facility] Comment on above: Order Comment: CLEAN CATCH Performed By: #### L 400.0001 ####[facility] [address] [place], [address] WBC 0-5 SEEN Normal 0-5 [facility] Comment on above: Order Comment: CLEAN CATCH Performed By: #### L 400.0001 ####[facility] [address] [place], [address] BACTERIA 0 SEEN Normal None Seen [facility] Comment on above: Order Comment: CLEAN CATCH Performed By: #### L 400.0001 ####[facility] [address] [place], [address] Mucus Ql (Urine sed) 0 SEEN Normal [facility] Comment on above: Order Comment: CLEAN CATCH Performed By: #### L 400.0001 ####[facility] [address] [place], [address] Urine clarityOrdered By: Jeremias Duque on 09-24-2024 Clarity (U) Clear Clear [facility] Urine color determinationOrd ered By: Gerardo Duque on 09-24-2024 Color (U) Yellow Yellow [facility] Urine glucose detectionOrder ed By: Gerardo Duque on 09-24-2024 Glucose Ql (U) Normal mg/dl Normal [facility] Urine leukocyte esterase det ection by dipstickOrdered By: Gerardo Duque on 09-24-2024 Leukocyte esterase Test strip Ql (U) Negative Negative [facility] Urine pHOrdered By: Gerardo Duque on 09-24-2024 pH (U) 6.5 [pH] 5.0 - 8.0 [facility] Urine sediment bacteria coun t by microscopy (number/high power field)Ordered By: Gerardo Duque on 09-24-2024 Bacteria LM.HPF (Urine sed) [#/Area] 0 /[HPF] None Seen [facility] Urine specific gravity measu rementOrdered By: Gerardo Duque on 09-24-2024 Specific gravity (U) [Rel density] 1.015 1.002-1.03 0 [facility] Urine urobilinogen measureme ntOrdered By: Gerardo Duque on 09-24-2024 Urobilinogen Ql (U) 1 mg/dl High Normal [facility] White blood cell (WBC) count Ordered By: Gerardo Duque on 09-24-2024 WBC (Bld) [#/Vol] 11.7 10*3/uL High 4.4-11.0 [facility] White blood cell countOrdere d By: Gerardo Duque on 09-24-2024 White blood cell count 0-5 SEEN /hpf 0-5 [facility] CNOVon 09-19-2024 CNOV Office Visit (INTMWS ) -- DELMARAYESHA Desiree ([id number]) 1935 M Date Time Provider Department 09/19/24 9:40 AM NIMISHA OSEGUERA INTMWS During your visit today, we recorded the following information about you: Pulse Respiration Blood pressure Weight 102/minute 16/minute 134/81 64.4 kg Nimisha Oseguera MD 09/19/2024 12:14 PM Signed Reason for Visit Follow up EDDIE Clark is a 89-year-old male presenting with urinary incontinence. Ayesha reports urinary incontinence for at least a few months, possibly up to a year, with episodes occurring almost daily. The incontinence is described as small amounts of leakage, primarily when transitioning from a sitting to a standing position. He is uncertain if it occurs during coughing. He wears a pad, which provides some assistance. He occasionally experiences nocturnal enuresis, but it is not frequent. He takes Tylenol with a sleep aid at night. He notes a decrease in urinary stream force and occasional difficulty initiating micturition. He reports post-void dribbling and sometimes urinates in two stages, with the second stage occurring involuntarily. He is currently on tamsulosin. He denies a history of prostate cancer. Social History Tobacco Use Smoking status: Former Current packs/day: 0.00 Average packs/day: 1 pack/day for 25.0 years (25.0 ttl pk-yrs) Types: Cigarettes Start date: 06/02/1952 Quit date: 06/02/1977 Years since quittin.3 Smokeless tobacco: Never Vaping Use Vaping status: Never Used Substance Use Topics Alcohol use: No Drug use: No Past medical history, appointments, medications, allergies reviewed. Pertinent Lab/Diagnostic Studies are reviewed and discussed today Current Outpatient Medications: tamsulosin (FLOMAX) 0.4 mg omeprazole (PRILOSEC) 20 mg capsule cyanocobalamin, vitamin B-12, (VITAMIN B-12 ORAL) OMEPRAZOLE (PRILOSEC ORAL) Health Maintenance DTaP,Tdap,Td Vaccine(1 - Tdap) Shingrix Vaccine(1 of 2) Pneumococcal Vaccine: 50+(1 of 1 - PCV) RSV Vaccine(1 - 1-dose 75+ series)@ Review Of Systems Ears/Nose/Mouth/Throat: (+) hearing changes Genitourinary: (+) urinary incontinence, (+) dribbling, (+) decreased stream, (+) urinary hesitancy, (+) incomplete emptying, (+) urinary urgency, (-) bedwetting Physical Exam BP 134/81 Pulse 102 Resp 16 Wt 64.4 kg (142 lb) SpO2 96% BMI 23.63 kg/m? GENERAL: NAD, alert and oriented SKIN: Unremarkable, no rash or skin lesions. HEAD: Normocephalic EYES: PERRLA, EOMI, conjunctiva clear LUNGS: Clear to auscultation bilaterally, no wheezes/rhonchi/rales. HEART: Regular rate and rhythm, no murmurs. No ectopy. EXTREMITIES: Normal, no deformities, no skin discoloration, no edema. NEURO: Awake, alert and oriented x3, cranial nerves II-XII grossly intact, normal gait, no involuntary motions Assessment and Plan 1. Prostate cancer screening (Z12.5) Patient has not had a recent PSA test. Ordered PSA test. 2. Benign prostatic hyperplasia with post-void dribbling (N40.1) Dribbling (N39.43) Decreased urine stream (R39.198) Patient experiences post-void dribbling and a decreased urine stream. Currently on tamsulosin. - Continue tamsulosin. - Referred to urology for further evaluation and management. 3. Urge incontinence (N39.41) Stress incontinence (N39.3) Urinary incontinence, unspecified type (R32) Patient experiences urge and stress incontinence, with episodes of urinary leakage when getting up from a sitting position and occasional nocturnal incontinence. Symptoms have been present for at least a few months to a year. - Referred to urology for urodynamic studies to determine the specific type of incontinence and appropriate treatment. - Discussed potential medications such as trospium and finasteride, but will await urologist's evaluation. - Advised patient to continue wearing incontinence pads to manage leakage. Voice recognition software was used to compose this office note. Please excuse any unintended typographical errors. Recording using [employer] software for draft documentation of the visit was discussed with the patient/authorized hostess party sales representative; all questions welcomed and answered. Patient/authorized hostess party sales representative agreed to proceed Nimisha Oseguera, MD Nimisha 09/19/2024 10:20 AM Signed We discussed your urinary incontinence and related symptoms: - You are experiencing urinary incontinence, including dribbling, urgency, and occasional accidents, particularly when getting up from a sitting position. You also report a weaker urine stream, occasional difficulty starting urination, and needing to urinate in two stages. - You are currently taking Tamsulosin to help with urination. Please continue this medication as prescribed. - I am referring you to a urologist for further evaluation. They will perform specialized tests, including a uro (more content not included)... Normal [facility] PSA/PROSTATE SPECIFIC ANTIGE N SCREENINGon 09-19-2024 Prostate specific Ag [Mass/Vol] 9.22 ng/mL High <2.60 [facility] Comment on above: Order Comment: Speci men Type: BLOOD SPECIMENOrdering Facility: [facility] Address: [address] [place] [address] Result Comment: [place] desiree PSA test methodology used is the Electrochemiluminescence Immunoassay by [employer]. Total PSA values by differing methodologies cannot be interchanged. For an individual patient, the significance of a PSA level should be interpreted in a broad clinical context, including age, race, family history, digital rectal exam, prostate size, results of prior testing (prostate biopsy, free PSA, PCA3), and use of 5-alpha reductase inhibitors. Considering the high incidence of asymptomatic cancer in the general population that may not pose an ultimate risk to a patient, the decision to recommend urological evaluation or prostate biopsy should be individualized after consideration of all these factors. REFERENCE: Darwin Garza M.D., M.P.H., Portillo Bergman M.D., Ph.D., Lester Qureshi M.D., Tia Garcia, M.P.H., Lalita Mix, Fatimah, Sc.D. Effect of Verification Bias on Screening for Prostate Cancer by Measurement of Prostatic Specific Antigen. N Engl J Med 2003,349:335-42. Performed By: #### P SAS1 ####[facility] LABCLIA [id number] [facility] [address] [place] [facility] CNOVon 09-02-2024 CNOV Office Visit (INTMWS ) -- AYESHA JACOBSEN ([id number]) 1935 M Date Time Provider Department 09/02/24 3:40 PM NIMISHA OSEGUERA INTMWS During your visit today, we recorded the following information about you: Temperature Pulse Respiration Blood pressure 98.7 degrees 101/minute 14/minute 122/84 Weight 64.4 kg Nimisha Oseguera MD 09/02/2024 8:24 PM Signed Ayesha Jacobsen is a 89 year old male here for a Medicare wellness visit. Medicare Health Risk Assessment General Health Very good Exercise: Minutes/Day Not much Exercise: Days/Week See above Alcohol: Daily Use No Alcohol: Drinks/Day No Alcohol: 6 or more drinks No Feel off balance Yes Concerns: Teeth/Dentures No Concerns: Sexual function No Troubled by feelings No Frequency: Eating healthy diet Yes ADLs requiring help Mo Safety precautions in home/vehicle Yes Smoke, vape, chews tobacco no Difficulty hearing Yes Difficulty seeing Yes Current Providers Specialists: I have reviewed specialist-related care of the patient in the medical record. Medical/Family history review Reviewed and updated problem list, medical/surgical/family/so cial history, medications, and allergies. Opioid use review Opioid Medications (last 90 days) No data to display Anxiety/Depression screening negative Recommendation: no further intervention at this time Cognitive screening3/5 Cognitive screening reviewed and Recommended referral for further evaluation (score 0-2). Functional Observation Was the patient's Timed Up AND Go test unsteady or >= 12 seconds? Advance Care Planning Surrogate decision maker and/or advance care plan documented Measurements BP 122/84 Pulse 101 Temp 37.1 ?C (98.7 ?F) (Temporal) Resp 14 Wt 64.4 kg (142 lb) SpO2 98% BMI 23.63 kg/m? Vision Screening: Follows with optometry/ophthalmology Assessment/Plan Medicare annual wellness visit, subsequent (Z00.00) - Counseled on healthy diet and regular exercise - Fall avoidance information provided - Personalized prevention plan provided Reason for Visit Follow up EDDIE Clark is a 89-year-old male, with a history of esophageal strictures and GERD, presenting for a Medicare Annual Wellness Visit. He is accompanied by his daughter, who is providing additional history. Ayesha was last seen in February for a UTI and a possible seizure. Multiple EEGs were performed, which were inconclusive. He was prescribed Keppra 500 mg, but discontinued it due to the absence of seizure activity and normal EEG results. He is currently taking omeprazole and tamsulosin. He has a history of esophageal strictures requiring dilation, but currently denies dysphagia, odynophagia, or coughing while eating. Ayesha reports significant balance issues, describing his balance as terrible. He has experienced multiple falls, including a recent fall on [facility] where he injured his knee. He attributes his balance issues to a possible inner ear problem, as suggested by his . He denies back pain. He has also noticed a decrease in his walking speed and an inability to walk in a straight line. He remains physically active, engaging in activities such as walking around his yard, picking up sticks, and pulling weeds. He denies regular exercise due to balance issues. He is fully independent in activities of daily living, including bathing, dressing, eating, transferring, and walking. Ayesha reports occasional hallucinations, such as seeing a car between a cano and a tree that was not there. He also experiences visual disturbances, describing floaters and skinny things moving in his peripheral vision, which he attributes to cataract surgery. He denies tremors. His daughter notes changes in his short-term memory and sleep behavior, including talking and moving in his sleep. Ayesha has a history of smoking for approximately 30 years, starting at age 19 and quitting in 1976. He denies alcohol use. He reports a healthy appetite and enjoys a variety of foods, including chocolate. He uses dentures and denies any issues with eating. Social History Tobacco Use Smoking status: Former Current packs/day: 0.00 Average packs/day: 1 pack/day for 25.0 years (25.0 ttl pk-yrs) Types: Cigarettes Start date: 06/02/1952 Quit date: 06/02/1977 Years since quittin.2 Smokeless tobacco: Never Vaping Use Vaping status: Never Used Substance Use Topics Alcohol use: No Drug use: No Past medical history, appointments, medications, allergies reviewed. Pertinent Lab/Diagnostic Studies are reviewed and discussed today Current Outpatient Medications: cyanocobalamin, vitamin B-12, (VITAMIN B-12 ORAL) OMEPRAZOLE (PRILOSEC ORAL) tamsulosin (FLOMAX) 0.4 mg omeprazole (PRILOSEC) 20 mg capsule Health Maintenance Spirometry Depression Screening Anxiety Screening DTaP,Tdap,Td Vaccine(1 - Tdap) (more content not included)... Normal [facility] Elvis 08-28-2024 [place] Telephone (INTMWS) -- AYESHA JACOBSEN ([id number]) 1935 M Date Time Provider Department 08/28/24 NIMISHA OSEGUERA INTEmilioWS During your visit today, we recorded the following information about you: Brigid Suarez MA 08/28/2024 10:40 AM Signed Patient requesting if Dr Oseguera is willing to take on as PCP? Took on last week, parents of Shay. Please advise Nimisha Oseguera MD 08/29/2024 4:00 PM Signed Yes, will take on Regards, Nimisha Oseguera MD Allergies As of Date: 08/28/2024 Noted Allergy Reaction EGGS (EGG) 12/14/2015 4 - Hives 12 - Shortness of Breath Date Reviewed: 03/27/2024 Reviewed by: Mary Lynn, AYLEEN.INSTRUCTIONAL SYSTEMS SPECIALIST - Fully Assessed Prescriptions as of 08/30/2024 - levETIRAcetam (KEPPRA) 500 mg tablet Take 1 tablet by mouth two times a day. - meclizine (ANTIVERT) 25 mg tab Take 1 tablet by mouth three times a day as needed. - naproxen sod/diphenhydramine (ALEVE PM ORAL) Take 2 tablets by mouth as needed (pain). - lisinopril (ZESTRIL) 10 mg tablet Take 1 tablet by mouth once daily. - tamsulosin (FLOMAX) 0.4 mg Take 1 capsule by mouth every afternoon. - cyanocobalamin, vitamin B-12, (VITAMIN B-12 ORAL) B-12 CAPS - OMEPRAZOLE (PRILOSEC ORAL) Take 20 mg by mouth daily at 6 am. Problem List As Of Date 08/28/2024 Noted Resolved Esophageal foreign body [T18.108A] 07/25/2013 07/24/2017 Left inguinal hernia [K40.90] 07/19/2017 Primary hypertension [I10] 07/24/2017 GERD (gastroesophageal reflux disease) [K21.9] 07/24/2017 Aortic valve disorder [I35.9] 11/10/2023 BPH (benign prostatic hyperplasia) [N40.0] 11/10/2023 Former smoker [Z87.891] 11/10/2023 Esophageal stricture [K22.2] 11/10/2023 Asthma [J45.909] 11/10/2023 Nonrheumatic aortic valve stenosis [I35.0] 01/22/2024 Acute on chronic urinary retention [R33.9] 02/22/2024 Dizziness [R42] 02/22/2024 Weakness [R53.1] 02/22/2024 Dizziness, nonspecific [R42] 02/22/2024 Leukocytosis [D72.829] 02/26/2024 Acute cystitis with hematuria [N30.01] 02/26/2024 ANDREWS (acute kidney injury) (HCC) [N17.9] 02/26/2024 Delirium [R41.0] 02/26/2024 Acute metabolic encephalopathy [G93.41] 02/27/2024 Stroke-like symptoms [R29.90] 03/04/2024 Encounter Status:Closed by BRIGID SUAREZ on 08/30/24 Normal [facility] Basic Metabolic Profile (BMP )on 04-17-2024 BUN Normal - [facility] Comment on above: Result Comment: Canc elled via OM: Order cancelled - Patient discharged Performed By: #### L 100.0100, L500.2500 ####[facility] [address] [place], [address] BUN/CRE Normal - [facility] Comment on above: Result Comment: Canc elled via OM: Order cancelled - Patient discharged Performed By: #### L 100.0100, L500.2500 ####[facility] [address] [place], [address] CA,Total Normal 8.5-10.1 [facility] Comment on above: Result Comment: Canc elled via OM: Order cancelled - Patient discharged Performed By: #### L 100.0100, L500.2500 ####[facility] [address] [place], [address] CL Normal 98-107 [facility] Comment on above: Result Comment: Canc elled via OM: Order cancelled - Patient discharged Performed By: #### L 100.0100, L500.2500 ####[facility] [address] [place], [address] CO2 Normal 21.0-32.0 [facility] Comment on above: Result Comment: Canc elled via OM: Order cancelled - Patient discharged Performed By: #### L 100.0100, L500.2500 ####[facility] [address] [place], [address] CREAT,SERUM Normal 0.70-1.30 [facility] Comment on above: Result Comment: Canc elled via OM: Order cancelled - Patient discharged Performed By: #### L 100.0100, L500.2500 ####[facility] [address] [place], [address] EST GFR Normal >60 [facility] Comment on above: Result Comment: Canc elled via OM: Order cancelled - Patient discharged Performed By: #### L 100.0100, L500.2500 ####[facility] [address] [place], [address] EST GFR - AA Normal >60 [facility] Comment on above: Result Comment: Canc elled via OM: Order cancelled - Patient discharged Performed By: #### L 100.0100, L500.2500 ####[facility] [address] [place], [address] GAP Normal 5-15 [facility] Comment on above: Result Comment: Canc elled via OM: Order cancelled - Patient discharged Performed By: #### L 100.0100, L500.2500 ####[facility] [address] [place], [address] GLU Normal 74-106 [facility] Comment on above: Result Comment: Canc elled via OM: Order cancelled - Patient discharged Performed By: #### L 100.0100, L500.2500 ####[facility] [address] [place], [address] Potassium Normal 3.5-5.1 [facility] Comment on above: Result Comment: Canc elled via OM: Order cancelled - Patient discharged Performed By: #### L 100.0100, L500.2500 ####[facility] [address] [place], [address] Basic Metabolic Profile (BMP) Normal 136-145 [facility] Comment on above: Result Comment: Canc elled via OM: Order cancelled - Patient discharged Performed By: #### L 100.0100, L500.2500 ####[facility] [address] [place], [address] CBC W/Diff, Automatedon 12-1 Absolute Neut Normal 2.0-7.7 [facility] Comment on above: Result Comment: Canc elled via OM: Order cancelled - Patient discharged Performed By: #### L 100.0100, L500.2500 ####[facility] [address] [place], [address] HCT Normal 40-54 [facility] Comment on above: Result Comment: Canc elled via OM: Order cancelled - Patient discharged Performed By: #### L 100.0100, L500.2500 ####[facility] [address] [place], [address] HGB Normal 13.0-16.5 [facility] Comment on above: Result Comment: Canc elled via OM: Order cancelled - Patient discharged Performed By: #### L 100.0100, L500.2500 ####[facility] [address] [place], [address] MCH Normal 27.0-32.0 [facility] Comment on above: Result Comment: Canc elled via OM: Order cancelled - Patient discharged Performed By: #### L 100.0100, L500.2500 ####[facility] [address] [place], [address] MCHC Normal 32-36 [facility] Comment on above: Result Comment: Canc elled via OM: Order cancelled - Patient discharged Performed By: #### L 100.0100, L500.2500 ####[facility] [address] [place], [address] MCV Normal 80-94 [facility] Comment on above: Result Comment: Canc elled via OM: Order cancelled - Patient discharged Performed By: #### L 100.0100, L500.2500 ####[facility] [address] [place], [address] NEUT% Normal 47-70 [facility] Comment on above: Result Comment: Canc elled via OM: Order cancelled - Patient discharged Performed By: #### L 100.0100, L500.2500 ####[facility] [address] [place], [address] PLT Normal 150-450 [facility] Comment on above: Result Comment: Canc elled via OM: Order cancelled - Patient discharged Performed By: #### L 100.0100, L500.2500 ####[facility] [address] [place], [address] RBC Normal 4.6-6.2 [facility] Comment on above: Result Comment: Canc elled via OM: Order cancelled - Patient discharged Performed By: #### L 100.0100, L500.2500 ####[facility] [address] [place], [address] RDW CV Normal 11.6-14.6 [facility] Comment on above: Result Comment: Canc elled via OM: Order cancelled - Patient discharged Performed By: #### L 100.0100, L500.2500 ####[facility] [address] [place], [address] RDW SD Normal 35.1-43.9 [facility] Comment on above: Result Comment: Canc elled via OM: Order cancelled - Patient discharged Performed By: #### L 100.0100, L500.2500 ####[facility] [address] [place], [address] WBC Normal 4.4-11.0 [facility] Comment on above: Result Comment: Canc elled via OM: Order cancelled - Patient discharged Performed By: #### L 100.0100, L500.2500 ####[facility] [address] [place], [address] Basic Metabolic Profile (BMP )on 04-10-2024 BUN Normal 7-18 [facility] Comment on above: Result Comment: Canc elled via OM: Order cancelled - Patient discharged Performed By: #### L 100.0100, L500.2500 ####[facility] [address] [place], [address] BUN/CRE Normal 10-20 [facility] Comment on above: Result Comment: Canc elled via OM: Order cancelled - Patient discharged Performed By: #### L 100.0100, L500.2500 ####[facility] [address] [place], [address] CA,Total Normal 8.5-10.1 [facility] Comment on above: Result Comment: Canc elled via OM: Order cancelled - Patient discharged Performed By: #### L 100.0100, L500.2500 ####[facility] [address] [place], [address] CL Normal 98-107 [facility] Comment on above: Result Comment: Canc elled via OM: Order cancelled - Patient discharged Performed By: #### L 100.0100, L500.2500 ####[facility] [address] [place], [address] CO2 Normal 21.0-32.0 [facility] Comment on above: Result Comment: Canc elled via OM: Order cancelled - Patient discharged Performed By: #### L 100.0100, L500.2500 ####[facility] [address] [place], [address] CREAT,SERUM Normal 0.70-1.30 [facility] Comment on above: Result Comment: Canc elled via OM: Order cancelled - Patient discharged Performed By: #### L 100.0100, L500.2500 ####[facility] [address] [place], [address] EST GFR Normal >60 [facility] Comment on above: Result Comment: Canc elled via OM: Order cancelled - Patient discharged Performed By: #### L 100.0100, L500.2500 ####[facility] [address] [place], [address] EST GFR - AA Normal >60 [facility] Comment on above: Result Comment: Canc elled via OM: Order cancelled - Patient discharged Performed By: #### L 100.0100, L500.2500 ####[facility] [address] [place], [address] GAP Normal 5-15 [facility] Comment on above: Result Comment: Canc elled via OM: Order cancelled - Patient discharged Performed By: #### L 100.0100, L500.2500 ####[facility] [address] [place], [address] GLU Normal 74-106 [facility] Comment on above: Result Comment: Canc elled via OM: Order cancelled - Patient discharged Performed By: #### L 100.0100, L500.2500 ####[facility] [address] [place], [address] Potassium Normal 3.5-5.1 [facility] Comment on above: Result Comment: Canc elled via OM: Order cancelled - Patient discharged Performed By: #### L 100.0100, L500.2500 ####[facility] [address] [place], [address] Basic Metabolic Profile (BMP) Normal 136-145 [facility] Comment on above: Result Comment: Canc elled via OM: Order cancelled - Patient discharged Performed By: #### L 100.0100, L500.2500 ####[facility] [address] [place], [address] CBC W/Diff, Automatedon 12-0 Absolute Neut Normal 2.0-7.7 [facility] Comment on above: Result Comment: Canc elled via OM: Order cancelled - Patient discharged Performed By: #### L 100.0100, L500.2500 ####[facility] [address] [place], [address] HCT Normal 40-54 [facility] Comment on above: Result Comment: Canc elled via OM: Order cancelled - Patient discharged Performed By: #### L 100.0100, L500.2500 ####[facility] [address] [place], [address] HGB Normal 13.0-16.5 [facility] Comment on above: Result Comment: Canc elled via OM: Order cancelled - Patient discharged Performed By: #### L 100.0100, L500.2500 ####[facility] [address] [place], [address] MCH Normal 27.0-32.0 [facility] Comment on above: Result Comment: Canc elled via OM: Order cancelled - Patient discharged Performed By: #### L 100.0100, L500.2500 ####[facility] [address] [place], [address] MCHC Normal 32-36 [facility] Comment on above: Result Comment: Canc elled via OM: Order cancelled - Patient discharged Performed By: #### L 100.0100, L500.2500 ####[facility] [address] [place], [address] MCV Normal 80-94 [facility] Comment on above: Result Comment: Canc elled via OM: Order cancelled - Patient discharged Performed By: #### L 100.0100, L500.2500 ####[facility] [address] [place], [address] NEUT% Normal 47-70 [facility] Comment on above: Result Comment: Canc elled via OM: Order cancelled - Patient discharged Performed By: #### L 100.0100, L500.2500 ####[facility] [address] [place], [address] PLT Normal 150-450 [facility] Comment on above: Result Comment: Canc elled via OM: Order cancelled - Patient discharged Performed By: #### L 100.0100, L500.2500 ####[facility] [address] [place], [address] RBC Normal 4.6-6.2 [facility] Comment on above: Result Comment: Canc elled via OM: Order cancelled - Patient discharged Performed By: #### L 100.0100, L500.2500 ####[facility] [address] [place], [address] RDW CV Normal 11.6-14.6 [facility] Comment on above: Result Comment: Canc elled via OM: Order cancelled - Patient discharged Performed By: #### L 100.0100, L500.2500 ####[facility] [address] [place], [address] RDW SD Normal 35.1-43.9 [facility] Comment on above: Result Comment: Canc elled via OM: Order cancelled - Patient discharged Performed By: #### L 100.0100, L500.2500 ####[facility] [address] [place], [address] WBC Normal 4.4-11.0 [facility] Comment on above: Result Comment: Canc elled via OM: Order cancelled - Patient discharged Performed By: #### L 100.0100, L500.2500 ####[facility] [address] [place], [address] OT D/C of Non Returning Pton 04-10-2024 OT D/C of Non Returning Pt Normal [facility] Basic Metabolic Profile (BMP )on 04-03-2024 BUN Normal 7-18 [facility] Comment on above: Result Comment: Canc elled via OM: Order cancelled - Patient discharged Performed By: #### L 100.0100, L500.2500 ####[facility] [address] [place], [address] BUN/CRE Normal 10-20 [facility] Comment on above: Result Comment: Canc elled via OM: Order cancelled - Patient discharged Performed By: #### L 100.0100, L500.2500 ####[facility] [address] [place], [address] CA,Total Normal 8.5-10.1 [facility] Comment on above: Result Comment: Canc elled via OM: Order cancelled - Patient discharged Performed By: #### L 100.0100, L500.2500 ####[facility] [address] [place], [address] CL Normal 98-107 [facility] Comment on above: Result Comment: Canc elled via OM: Order cancelled - Patient discharged Performed By: #### L 100.0100, L500.2500 ####[facility] [address] [place], [address] CO2 Normal 21.0-32.0 [facility] Comment on above: Result Comment: Canc elled via OM: Order cancelled - Patient discharged Performed By: #### L 100.0100, L500.2500 ####[facility] [address] [place], [address] CREAT,SERUM Normal 0.70-1.30 [facility] Comment on above: Result Comment: Canc elled via OM: Order cancelled - Patient discharged Performed By: #### L 100.0100, L500.2500 ####[facility] [address] [place], [address] EST GFR Normal >60 [facility] Comment on above: Result Comment: Canc elled via OM: Order cancelled - Patient discharged Performed By: #### L 100.0100, L500.2500 ####[facility] [address] [place], [address] EST GFR - AA Normal >60 [facility] Comment on above: Result Comment: Canc elled via OM: Order cancelled - Patient discharged Performed By: #### L 100.0100, L500.2500 ####[facility] [address] [place], [address] GAP Normal 5-15 [facility] Comment on above: Result Comment: Canc elled via OM: Order cancelled - Patient discharged Performed By: #### L 100.0100, L500.2500 ####[facility] [address] [place], [address] GLU Normal 74-106 [facility] Comment on above: Result Comment: Canc elled via OM: Order cancelled - Patient discharged Performed By: #### L 100.0100, L500.2500 ####[facility] [address] [place], [address] Potassium Normal 3.5-5.1 [facility] Comment on above: Result Comment: Canc elled via OM: Order cancelled - Patient discharged Performed By: #### L 100.0100, L500.2500 ####[facility] [address] [place], [address] Basic Metabolic Profile (BMP) Normal 136-145 [facility] Comment on above: Result Comment: Canc elled via OM: Order cancelled - Patient discharged Performed By: #### L 100.0100, L500.2500 ####[facility] [address] [place], [address] CBC W/Diff, Automatedon 11-2 Absolute Neut Normal 2.0-7.7 [facility] Comment on above: Result Comment: Canc elled via OM: Order cancelled - Patient discharged Performed By: #### L 100.0100, L500.2500 ####[facility] [address] [place], [address] HCT Normal 40-54 [facility] Comment on above: Result Comment: Canc elled via OM: Order cancelled - Patient discharged Performed By: #### L 100.0100, L500.2500 ####[facility] [address] [place], [address] HGB Normal 13.0-16.5 [facility] Comment on above: Result Comment: Canc elled via OM: Order cancelled - Patient discharged Performed By: #### L 100.0100, L500.2500 ####[facility] [address] [place], [address] MCH Normal 27.0-32.0 [facility] Comment on above: Result Comment: Canc elled via OM: Order cancelled - Patient discharged Performed By: #### L 100.0100, L500.2500 ####[facility] [address] [place], [address] MCHC Normal 32-36 [facility] Comment on above: Result Comment: Canc elled via OM: Order cancelled - Patient discharged Performed By: #### L 100.0100, L500.2500 ####[facility] [address] [place], [address] MCV Normal 80-94 [facility] Comment on above: Result Comment: Canc elled via OM: Order cancelled - Patient discharged Performed By: #### L 100.0100, L500.2500 ####[facility] [address] [place], [address] NEUT% Normal 47-70 [facility] Comment on above: Result Comment: Canc elled via OM: Order cancelled - Patient discharged Performed By: #### L 100.0100, L500.2500 ####[facility] [address] [place], [address] PLT Normal 150-450 [facility] Comment on above: Result Comment: Canc elled via OM: Order cancelled - Patient discharged Performed By: #### L 100.0100, L500.2500 ####[facility] [address] [place], [address] RBC Normal 4.6-6.2 [facility] Comment on above: Result Comment: Canc elled via OM: Order cancelled - Patient discharged Performed By: #### L 100.0100, L500.2500 ####[facility] [address] [place], [address] RDW CV Normal 11.6-14.6 [facility] Comment on above: Result Comment: Canc elled via OM: Order cancelled - Patient discharged Performed By: #### L 100.0100, L500.2500 ####[facility] [address] [place], [address] RDW SD Normal 35.1-43.9 [facility] Comment on above: Result Comment: Canc elled via OM: Order cancelled - Patient discharged Performed By: #### L 100.0100, L500.2500 ####[facility] [address] [place], [address] WBC Normal 4.4-11.0 [facility] Comment on above: Result Comment: Canc elled via OM: Order cancelled - Patient discharged Performed By: #### L 100.0100, L500.2500 ####[facility] [address] [place], [address] Basic Metabolic Profile (BMP )on 03-27-2024 BUN Normal 7-18 [facility] Comment on above: Result Comment: Canc elled via OM: Order cancelled - Patient discharged Performed By: #### L 100.0100, L500.2500 ####[facility] [address] [place], [address] BUN/CRE Normal - [facility] Comment on above: Result Comment: Canc elled via OM: Order cancelled - Patient discharged Performed By: #### L 100.0100, L500.2500 ####[facility] [address] [place], [address] CA,Total Normal 8.5-10.1 [facility] Comment on above: Result Comment: Canc elled via OM: Order cancelled - Patient discharged Performed By: #### L 100.0100, L500.2500 ####[facility] [address] [place], [address] CL Normal 98-107 [facility] Comment on above: Result Comment: Canc elled via OM: Order cancelled - Patient discharged Performed By: #### L 100.0100, L500.2500 ####[facility] [address] [place], [address] CO2 Normal 21.0-32.0 [facility] Comment on above: Result Comment: Canc elled via OM: Order cancelled - Patient discharged Performed By: #### L 100.0100, L500.2500 ####[facility] [address] [place], [address] CREAT,SERUM Normal 0.70-1.30 [facility] Comment on above: Result Comment: Canc elled via OM: Order cancelled - Patient discharged Performed By: #### L 100.0100, L500.2500 ####[facility] [address] [place], [address] EST GFR Normal >60 [facility] Comment on above: Result Comment: Canc elled via OM: Order cancelled - Patient discharged Performed By: #### L 100.0100, L500.2500 ####[facility] [address] [place], [address] EST GFR - AA Normal >60 [facility] Comment on above: Result Comment: Canc elled via OM: Order cancelled - Patient discharged Performed By: #### L 100.0100, L500.2500 ####[facility] [address] [place], [address] GAP Normal 5-15 [facility] Comment on above: Result Comment: Canc elled via OM: Order cancelled - Patient discharged Performed By: #### L 100.0100, L500.2500 ####[facility] [address] [place], [address] GLU Normal 74-106 [facility] Comment on above: Result Comment: Canc elled via OM: Order cancelled - Patient discharged Performed By: #### L 100.0100, L500.2500 ####[facility] [address] [place], [address] Potassium Normal 3.5-5.1 [facility] Comment on above: Result Comment: Canc elled via OM: Order cancelled - Patient discharged Performed By: #### L 100.0100, L500.2500 ####[facility] [address] [place], [address] Basic Metabolic Profile (BMP) Normal 136-145 [facility] Comment on above: Result Comment: Canc elled via OM: Order cancelled - Patient discharged Performed By: #### L 100.0100, L500.2500 ####[facility] [address] [place], [address] CBC W/Diff, Automatedon 11-2 0-2023 Absolute Neut Normal 2.0-7.7 [facility] Comment on above: Result Comment: Canc elled via OM: Order cancelled - Patient discharged Performed By: #### L 100.0100, L500.2500 ####[facility] [address] [place], [address] HCT Normal 40-54 [facility] Comment on above: Result Comment: Canc elled via OM: Order cancelled - Patient discharged Performed By: #### L 100.0100, L500.2500 ####[facility] [address] [place], [address] HGB Normal 13.0-16.5 [facility] Comment on above: Result Comment: Canc elled via OM: Order cancelled - Patient discharged Performed By: #### L 100.0100, L500.2500 ####[facility] [address] [place], [address] MCH Normal 27.0-32.0 [facility] Comment on above: Result Comment: Canc elled via OM: Order cancelled - Patient discharged Performed By: #### L 100.0100, L500.2500 ####[facility] [address] [place], [address] MCHC Normal 32-36 [facility] Comment on above: Result Comment: Canc elled via OM: Order cancelled - Patient discharged Performed By: #### L 100.0100, L500.2500 ####[facility] [address] [place], [address] MCV Normal 80-94 [facility] Comment on above: Result Comment: Canc elled via OM: Order cancelled - Patient discharged Performed By: #### L 100.0100, L500.2500 ####[facility] [address] [place], [address] NEUT% Normal 47-70 [facility] Comment on above: Result Comment: Canc elled via OM: Order cancelled - Patient discharged Performed By: #### L 100.0100, L500.2500 ####[facility] [address] [place], [address] PLT Normal 150-450 [facility] Comment on above: Result Comment: Canc elled via OM: Order cancelled - Patient discharged Performed By: #### L 100.0100, L500.2500 ####[facility] [address] [place], [address] RBC Normal 4.6-6.2 [facility] Comment on above: Result Comment: Canc elled via OM: Order cancelled - Patient discharged Performed By: #### L 100.0100, L500.2500 ####[facility] [address] [place], [address] RDW CV Normal 11.6-14.6 [facility] Comment on above: Result Comment: Canc elled via OM: Order cancelled - Patient discharged Performed By: #### L 100.0100, L500.2500 ####[facility] [address] [place], [address] RDW SD Normal 35.1-43.9 [facility] Comment on above: Result Comment: Canc elled via OM: Order cancelled - Patient discharged Performed By: #### L 100.0100, L500.2500 ####[facility] [address] [place], [address] WBC Normal 4.4-11.0 [facility] Comment on above: Result Comment: Canc elled via OM: Order cancelled - Patient discharged Performed By: #### L 100.0100, L500.2500 ####[facility] [address] [place], [address] Elvis 03-27-2024 CNPN Telephone ([facility]) -- DELMARAYESHA Desiree ([id number]) 1935 M Date Time Provider Department 03/27/24 NURSE S [facility] During your visit today, we recorded the following information about you: Raffy Modi RN 03/27/2024 11:57 AM Signed Mary Lynn CNP from [facility] came to office. Ayesha needs to be evaluated by cardiology and neurology prior to Mary being able to consider clearing him for surgery. The patient was scheduled to be seen today, but Mayr cancelled the visit and advised Ayesha that the surgery would need to be cancelled and rescheduled after his other visits had been completed. Raffy Modi RN Allergies As of Date: 03/27/2024 Noted Allergy Reaction EGGS (EGG) 12/14/2015 4 - Hives 12 - Shortness of Breath Date Reviewed: 03/27/2024 Reviewed by: Mary Lynn, AYLEEN.INSTRUCTIONAL SYSTEMS SPECIALIST - Fully Assessed Reason for Visit: Cancel Procedure [Other] Prescriptions as of 03/28/2024 - levETIRAcetam (KEPPRA) 500 mg tablet Take 1 tablet by mouth two times a day. - meclizine (ANTIVERT) 25 mg tab Take 1 tablet by mouth three times a day as needed. - naproxen sod/diphenhydramine (ALEVE PM ORAL) Take 2 tablets by mouth as needed (pain). - lisinopril (ZESTRIL) 10 mg tablet Take 1 tablet by mouth once daily. - tamsulosin (FLOMAX) 0.4 mg Take 1 capsule by mouth every afternoon. - cyanocobalamin, vitamin B-12, (VITAMIN B-12 ORAL) B-12 CAPS - OMEPRAZOLE (PRILOSEC ORAL) Take 20 mg by mouth daily at 6 am. Problem List As Of Date 03/27/2024 Noted Resolved Esophageal foreign body [T18.108A] 07/25/2013 07/24/2017 Left inguinal hernia [K40.90] 07/19/2017 Primary hypertension [I10] 07/24/2017 GERD (gastroesophageal reflux disease) [K21.9] 07/24/2017 Aortic valve disorder [I35.9] 11/10/2023 BPH (benign prostatic hyperplasia) [N40.0] 11/10/2023 Former smoker [Z87.891] 11/10/2023 Esophageal stricture [K22.2] 11/10/2023 Asthma [J45.909] 11/10/2023 Nonrheumatic aortic valve stenosis [I35.0] 01/22/2024 Acute on chronic urinary retention [R33.9] 02/22/2024 Dizziness [R42] 02/22/2024 Weakness [R53.1] 02/22/2024 Dizziness, nonspecific [R42] 02/22/2024 Leukocytosis [D72.829] 02/26/2024 Acute cystitis with hematuria [N30.01] 02/26/2024 ANDREWS (acute kidney injury) (HCC) [N17.9] 02/26/2024 Delirium [R41.0] 02/26/2024 Acute metabolic encephalopathy [G93.41] 02/27/2024 Stroke-like symptoms [R29.90] 03/04/2024 Encounter Status:Closed by RAFFY MODI on 03/28/24 Normal [facility] HISTORY PHYSICALon HISTORY PHYSICAL HNO ID: [id number] Author: MARY LYNN APRN.FRANCES Service: ? Author Type: Nurse Practitioner Type: H&P Filed: 03/27/2024 11:36 Note Text: [facility] appt cancelled today, pt needs to follow up with neurology prior to elective surgery 2/2 recent ED visit 02/26/2024 for acute delirium, he was placed on Keppra during that admission. 03/05/2024 Dr. Daniel Perez Assessment: Ayesha is an 88 year old male with h/o congenital esophageal atresia and stenosis, diverticulosis, HTN, reflex, esophageal stricture presenting with dizziness. Examination reveals an awake, alert patient with no focal weakness or sensory loss. He was recently hospitalized for UTI on 02/21 and seen by neurology for dizziness. MRI brain was negative at that time. Today he returns for acute change in mental status. NIH is now possibly 1 for possible right facial droop. However, exam was suboptimal since patient was having trouble following commands and would not sustain a full smile. He is globally confused and at baseline is O and A x 3. Due to sudden, acute change, repeat MRI brain is recommended to rule out acute process like stroke. He also reportedly had a fall if patient's history if accurate. Will also obtain EEG. 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 Plan: - MRI brain - EEG - Will defer treatment of ANDREWS to primary team 03/05/2024 EEG Impression: This EEG is suggestive of a mild to moderate diffuse encephalopathy with additional cerebral dysfunction involving the left frontotemporal region. No epileptiform discharges or EEG seizures were recorded. Normal [facility] Basic Metabolic Profile (BMP )on 03-20-2024 BUN Normal 7-18 [facility] Comment on above: Result Comment: Canc elled via OM: Order cancelled - Patient discharged Performed By: #### L 500.2500, L100.0100 ####[facility] [address] [place], [address] BUN/CRE Normal 10- [facility] Comment on above: Result Comment: Canc elled via OM: Order cancelled - Patient discharged Performed By: #### L 500.2500, L100.0100 ####[facility] [address] [place], [address] CA,Total Normal 8.5-10.1 [facility] Comment on above: Result Comment: Canc elled via OM: Order cancelled - Patient discharged Performed By: #### L 500.2500, L100.0100 ####[facility] [address] [place], [address] CL Normal 98-107 [facility] Comment on above: Result Comment: Canc elled via OM: Order cancelled - Patient discharged Performed By: #### L 500.2500, L100.0100 ####[facility] [address] [place], [address] CO2 Normal 21.0-32.0 [facility] Comment on above: Result Comment: Canc elled via OM: Order cancelled - Patient discharged Performed By: #### L 500.2500, L100.0100 ####[facility] [address] [place], [address] CREAT,SERUM Normal 0.70-1.30 [facility] Comment on above: Result Comment: Canc elled via OM: Order cancelled - Patient discharged Performed By: #### L 500.2500, L100.0100 ####[facility] [address] [place], [address] EST GFR Normal >60 [facility] Comment on above: Result Comment: Canc elled via OM: Order cancelled - Patient discharged Performed By: #### L 500.2500, L100.0100 ####[facility] [address] [place], [address] EST GFR - AA Normal >60 [facility] Comment on above: Result Comment: Canc elled via OM: Order cancelled - Patient discharged Performed By: #### L 500.2500, L100.0100 ####[facility] [address] [place], [address] GAP Normal 5-15 [facility] Comment on above: Result Comment: Canc elled via OM: Order cancelled - Patient discharged Performed By: #### L 500.2500, L100.0100 ####[facility] [address] [place], [address] GLU Normal 74-106 [facility] Comment on above: Result Comment: Canc elled via OM: Order cancelled - Patient discharged Performed By: #### L 500.2500, L100.0100 ####[facility] [address] [place], [address] Potassium Normal 3.5-5.1 [facility] Comment on above: Result Comment: Canc elled via OM: Order cancelled - Patient discharged Performed By: #### L 500.2500, L100.0100 ####[facility] [address] [place], [address] Basic Metabolic Profile (BMP) Normal 136-145 [facility] Comment on above: Result Comment: Canc elled via OM: Order cancelled - Patient discharged Performed By: #### L 500.2500, L100.0100 ####[facility] [address] [place], [address] CBC W/Diff, Automatedon 11-1 Absolute Neut Normal 2.0-7.7 [facility] Comment on above: Result Comment: Canc elled via OM: Order cancelled - Patient discharged Performed By: #### L 500.2500, L100.0100 ####[facility] [address] [place], [address] HCT Normal 40-54 [facility] Comment on above: Result Comment: Canc elled via OM: Order cancelled - Patient discharged Performed By: #### L 500.2500, L100.0100 ####[facility] [address] [place], [address] HGB Normal 13.0-16.5 [facility] Comment on above: Result Comment: Canc elled via OM: Order cancelled - Patient discharged Performed By: #### L 500.2500, L100.0100 ####[facility] [address] [place], [address] MCH Normal 27.0-32.0 [facility] Comment on above: Result Comment: Canc elled via OM: Order cancelled - Patient discharged Performed By: #### L 500.2500, L100.0100 ####[facility] [address] [place], [address] MCHC Normal 32-36 [facility] [facility] Comment on above: Result Comment: Canc elled via OM: Order cancelled - Patient discharged Performed By: #### L 500.2500, L100.0100 ####[facility] [address] [place], [address] MCV Normal 80-94 [facility] Comment on above: Result Comment: Canc elled via OM: Order cancelled - Patient discharged Performed By: #### L 500.2500, L100.0100 ####[facility] [address] [place], [address] NEUT% Normal 47-70 [facility] Comment on above: Result Comment: Canc elled via OM: Order cancelled - Patient discharged Performed By: #### L 500.2500, L100.0100 ####[facility] [address] [place], [address] PLT Normal 150-450 [facility] Comment on above: Result Comment: Canc elled via OM: Order cancelled - Patient discharged Performed By: #### L 500.2500, L100.0100 ####[facility] [address] [place], [address] RBC Normal 4.6-6.2 [facility] Comment on above: Result Comment: Canc elled via OM: Order cancelled - Patient discharged Performed By: #### L 500.2500, L100.0100 ####[facility] [address] [place], [address] RDW CV Normal 11.6-14.6 [facility] Comment on above: Result Comment: Canc elled via OM: Order cancelled - Patient discharged Performed By: #### L 500.2500, L100.0100 ####[facility] [address] [place], [address] RDW SD Normal 35.1-43.9 [facility] Comment on above: Result Comment: Canc elled via OM: Order cancelled - Patient discharged Performed By: #### L 500.2500, L100.0100 ####[facility] [address] [place], [address] WBC Normal 4.4-11.0 [facility] Comment on above: Result Comment: Canc elled via OM: Order cancelled - Patient discharged Performed By: #### L 500.2500, L100.0100 ####[facility] [address] [place], [address] D/C Summary- SPon 03-20-2024 D/C Summary- SP Normal [facility] CNPNon 03-18-2024 CNPN Telephone ([facility]) -- AYESHA JACOBSEN ([id number]) 1935 M Date Time Provider Department 03/18/24 JCAQUELINE ESPINAL GENS During your visit today, we recorded the following information about you: Hero Waite 03/18/2024 10:22 AM Signed Patient rescheduled for Hernia surgery on 04-09-2024 (copied forward the old cancelled case). patient will go though [facility] to make sure he is medically cleared for procedure. Hero Waite 03/29/2024 10:46 AM Signed received message patient needs to be seen by cardiology and neurology prior to surgery ., left message for patient and gave direct number to call back Hero Waite Allergies As of Date: 03/18/2024 Noted Allergy Reaction EGGS (EGG) 12/14/2015 4 - Hives 12 - Shortness of Breath Date Reviewed: 03/05/2024 Reviewed by: Alvarez Gant, RN - Fully Assessed Reason for Visit: cardiology and Neurology clearance [Other] Prescriptions as of 08/05/2024 - levETIRAcetam (KEPPRA) 500 mg tablet Take 1 tablet by mouth two times a day. - meclizine (ANTIVERT) 25 mg tab Take 1 tablet by mouth three times a day as needed. - naproxen sod/diphenhydramine (ALEVE PM ORAL) Take 2 tablets by mouth as needed (pain). - lisinopril (ZESTRIL) 10 mg tablet Take 1 tablet by mouth once daily. - tamsulosin (FLOMAX) 0.4 mg Take 1 capsule by mouth every afternoon. - cyanocobalamin, vitamin B-12, (VITAMIN B-12 ORAL) B-12 CAPS - OMEPRAZOLE (PRILOSEC ORAL) Take 20 mg by mouth daily at 6 am. Problem List As Of Date 03/18/2024 Noted Resolved Esophageal foreign body [T18.108A] 07/25/2013 07/24/2017 Left inguinal hernia [K40.90] 07/19/2017 Primary hypertension [I10] 07/24/2017 GERD (gastroesophageal reflux disease) [K21.9] 07/24/2017 Aortic valve disorder [I35.9] 11/10/2023 BPH (benign prostatic hyperplasia) [N40.0] 11/10/2023 Former smoker [Z87.891] 11/10/2023 Esophageal stricture [K22.2] 11/10/2023 Asthma [J45.909] 11/10/2023 Nonrheumatic aortic valve stenosis [I35.0] 01/22/2024 Acute on chronic urinary retention [R33.9] 02/22/2024 Dizziness [R42] 02/22/2024 Weakness [R53.1] 02/22/2024 Dizziness, nonspecific [R42] 02/22/2024 Leukocytosis [D72.829] 02/26/2024 Acute cystitis with hematuria [N30.01] 02/26/2024 ANDREWS (acute kidney injury) (HCC) [N17.9] 02/26/2024 Delirium [R41.0] 02/26/2024 Acute metabolic encephalopathy [G93.41] 02/27/2024 Stroke-like symptoms [R29.90] 03/04/2024 Encounter Status:Closed by HERO WAITE on 08/05/24 [facility] Elvis 03-15-2024 CNPN Telephone ([employer]) -- AYESHA JACOBSEN ([id number]) 1935 M Date Time Provider Department 03/15/24 JACQUELINE ESPINAL [employer] [place] During your visit today, we recorded the following information about you: Adrianne Burgess 03/15/2024 1:[address] Perez call requesting patient be placed back on Dr Espinal's surgery schedule as 02/2024 procedure had to be cancelled due to patient being admitted to the Hospital. Please advise patient of appointment details. Allergies As of Date: 03/15/2024 Noted Allergy Reaction EGGS (EGG) 12/14/2015 4 - Hives 12 - Shortness of Breath Date Reviewed: 03/05/2024 Reviewed by: Alvarez Gant, RN - Fully Assessed Reason for Visit: Appointment [186] Prescriptions as of 04/29/2024 - levETIRAcetam (KEPPRA) 500 mg tablet Take 1 tablet by mouth two times a day. - meclizine (ANTIVERT) 25 mg tab Take 1 tablet by mouth three times a day as needed. - naproxen sod/diphenhydramine (ALEVE PM ORAL) Take 2 tablets by mouth as needed (pain). - lisinopril (ZESTRIL) 10 mg tablet Take 1 tablet by mouth once daily. - tamsulosin (FLOMAX) 0.4 mg Take 1 capsule by mouth every afternoon. - cyanocobalamin, vitamin B-12, (VITAMIN B-12 ORAL) B-12 CAPS - OMEPRAZOLE (PRILOSEC ORAL) Take 20 mg by mouth daily at 6 am. Problem List As Of Date 03/15/2024 Noted Resolved Esophageal foreign body [T18.108A] 07/25/2013 07/24/2017 Left inguinal hernia [K40.90] 07/19/2017 Primary hypertension [I10] 07/24/2017 GERD (gastroesophageal reflux disease) [K21.9] 07/24/2017 Aortic valve disorder [I35.9] 11/10/2023 BPH (benign prostatic hyperplasia) [N40.0] 11/10/2023 Former smoker [Z87.891] 11/10/2023 Esophageal stricture [K22.2] 11/10/2023 Asthma [J45.909] 11/10/2023 Nonrheumatic aortic valve stenosis [I35.0] 01/22/2024 Acute on chronic urinary retention [R33.9] 02/22/2024 Dizziness [R42] 02/22/2024 Weakness [R53.1] 02/22/2024 Dizziness, nonspecific [R42] 02/22/2024 Leukocytosis [D72.829] 02/26/2024 Acute cystitis with hematuria [N30.01] 02/26/2024 ANDREWS (acute kidney injury) (HCC) [N17.9] 02/26/2024 Delirium [R41.0] 02/26/2024 Acute metabolic encephalopathy [G93.41] 02/27/2024 Stroke-like symptoms [R29.90] 03/04/2024 Encounter Status:Closed by ADRIANNE BURGESS on 04/29/24 Normal [facility] Basic Metabolic Profile (BMP )on 03-13-2024 BUN Normal 11-22 [facility] Comment on above: Result Comment: Sonido de león via OM: Order cancelled - Patient discharged Performed By: #### L 500.2500, L100.0100 ####[facility] [address] [place], [place], [id number] BUN/CRE Normal 02-24 [facility] Comment on above: Result Comment: Canc elled via OM: Order cancelled - Patient discharged Performed By: #### L 500.2500, L100.0100 ####[facility] [address] [place], [address] CA,Total Normal 8.5-10.1 [facility] Comment on above: Result Comment: Canc elled via OM: Order cancelled - Patient discharged Performed By: #### L 500.2500, L100.0100 ####[facility] [address] [place], [address] CL Normal 98-107 [facility] Comment on above: Result Comment: Canc elled via OM: Order cancelled - Patient discharged Performed By: #### L 500.2500, L100.0100 ####[facility] [address] [place], [address] CO2 Normal 21.0-32.0 [facility] Comment on above: Result Comment: Canc elled via OM: Order cancelled - Patient discharged Performed By: #### L 500.2500, L100.0100 ####[facility] [address] [place], [address] CREAT,SERUM Normal 0.70-1.30 [facility] Comment on above: Result Comment: Canc elled via OM: Order cancelled - Patient discharged Performed By: #### L 500.2500, L100.0100 ####[facility] [address] [place], [address] EST GFR Normal >60 [facility] Comment on above: Result Comment: Canc elled via OM: Order cancelled - Patient discharged Performed By: #### L 500.2500, L100.0100 ####[facility] [address] [place], [address] EST GFR - AA Normal >60 [facility] Comment on above: Result Comment: Canc elled via OM: Order cancelled - Patient discharged Performed By: #### L 500.2500, L100.0100 ####[facility] [address] [place], [address] GAP Normal 5-15 [facility] Comment on above: Result Comment: Canc elled via OM: Order cancelled - Patient discharged Performed By: #### L 500.2500, L100.0100 ####[facility] [address] [place], [address] GLU Normal 74-106 [facility] Comment on above: Result Comment: Canc elled via OM: Order cancelled - Patient discharged Performed By: #### L 500.2500, L100.0100 ####[facility] [address] [place], [address] Potassium Normal 3.5-5.1 [facility] Comment on above: Result Comment: Canc elled via OM: Order cancelled - Patient discharged Performed By: #### L 500.2500, L100.0100 ####[facility] [address] [place], [address] Basic Metabolic Profile (BMP) Normal 136-145 [facility] Comment on above: Result Comment: Canc elled via OM: Order cancelled - Patient discharged Performed By: #### L 500.2500, L100.0100 ####[facility] [address] [place], [address] CBC W/Diff, Automatedon 11-0 Absolute Neut Normal 2.0-7.7 [facility] Comment on above: Result Comment: Canc elled via OM: Order cancelled - Patient discharged Performed By: #### L 500.2500, L100.0100 ####[facility] [address] [place], [address] HCT Normal 40-54 [facility] Comment on above: Result Comment: Canc elled via OM: Order cancelled - Patient discharged Performed By: #### L 500.2500, L100.0100 ####[facility] [address] [place], [address] HGB Normal 13.0-16.5 [facility] Comment on above: Result Comment: Canc elled via OM: Order cancelled - Patient discharged Performed By: #### L 500.2500, L100.0100 ####[facility] [address] [place], [address] MCH Normal 27.0-32.0 [facility] Comment on above: Result Comment: Canc elled via OM: Order cancelled - Patient discharged Performed By: #### L 500.2500, L100.0100 ####[facility] [address] [place], [address] MCHC Normal 32-36 [facility] Comment on above: Result Comment: Canc elled via OM: Order cancelled - Patient discharged Performed By: #### L 500.2500, L100.0100 ####[facility] [address] [place], [address] MCV Normal 80-94 [facility] Comment on above: Result Comment: Canc elled via OM: Order cancelled - Patient discharged Performed By: #### L 500.2500, L100.0100 ####[facility] [address] [place], [address] NEUT% Normal 47-70 [facility] Comment on above: Result Comment: Canc elled via OM: Order cancelled - Patient discharged Performed By: #### L 500.2500, L100.0100 ####[facility] [address] [place], [address] PLT Normal 150-450 [facility] Comment on above: Result Comment: Canc elled via OM: Order cancelled - Patient discharged Performed By: #### L 500.2500, L100.0100 ####[facility] [address] [place], [address] RBC Normal 4.6-6.2 [facility] Comment on above: Result Comment: Canc elled via OM: Order cancelled - Patient discharged Performed By: #### L 500.2500, L100.0100 ####[facility] [address] [place], [address] RDW CV Normal 11.6-14.6 [facility] Comment on above: Result Comment: Canc elled via OM: Order cancelled - Patient discharged Performed By: #### L 500.2500, L100.0100 ####[facility] [address] [place], [address] RDW SD Normal 35.1-43.9 [facility] Comment on above: Result Comment: Canc elled via OM: Order cancelled - Patient discharged Performed By: #### L 500.2500, L100.0100 ####[facility] [address] [place], [address] WBC Normal 4.4-11.0 [facility] Comment on above: Result Comment: Canc elled via OM: Order cancelled - Patient discharged Performed By: #### L 500.2500, L100.0100 ####[facility] [address] [place], [address] Inital Evaluation (1) - PTon 03-13-2024 Inital Evaluation (1) - PT Normal [facility] OT General Evaluationon OT General Evaluation Normal [facility] SP/HP.SP.Seema 03-13-2024 SP/HP.SP.EV Normal [facility] Urine Cultureon 03-09-2024 URC Culture exhibits no growth. Normal [facility] Comment on above: Performed By: #### L 400.0001, M100.2200 ####[facility] [address] [place], [address] Urinalysis, Completeon 03-08 WBC 0-5 SEEN Normal 0-5 [facility] Comment on above: Order Comment: BLADD ER TAP Performed By: #### L 400.0001, M1.0 ####[facility] [address] [place], [address] BACTERIA 0 SEEN Normal None Seen [facility] Comment on above: Order Comment: BLADD ER TAP Performed By: #### L 400.0001, M100.2200 ####[facility] [address] [place], [address] EPI,SQUAMOUS 0 SEEN Normal 0-5 [facility] Comment on above: Order Comment: BLADD ER TAP Performed By: #### L 400.0001, M1.0 ####[facility] [address] [place], [address] Mucus Ql (Urine sed) 0 SEEN Normal [facility] Comment on above: Order Comment: BLADD ER TAP Performed By: #### L 400.0001, M1.2199 ####[facility] [address] [place], [address] RBC 0 SEEN Normal 0-5 [facility] Comment on above: Order Comment: BLADD ER TAP Performed By: #### L 400.0001, M1.0 ####[facility] [address] [place], [address] Basic Metabolic Profile (BMP )on 03-06-2024 BUN/CRE 23.6 RATIO High 10-20 [facility] Comment on above: Performed By: #### L 100.0100, L500.2500 ####[facility] [address] [place], [address] CA,Total 9.1 mg/dL Normal 8.5-10.1 [facility] Comment on above: Performed By: #### L 100.0100, L500.2500 ####[facility] [address] [place], [address] Chloride [Moles/Vol] 110 mmol/L High 98-107 [facility] Comment on above: Performed By: #### L 100.0100, L500.2500 ####[facility] [address] [place], [address] CO2 [Moles/Vol] 28.0 mmol/L Normal 21.0-32.0 [facility] Comment on above: Performed By: #### L 100.0100, L500.2500 ####[facility] [address] [place], [address] Creatinine [Mass/Vol] 1.06 mg/dL Normal 0.70-1.30 [facility] Comment on above: Result Comment: The validity of the calculated GFR GFRAA in patients over70 years has not been determined. Clinical correlation isessential. Performed By: #### L 100.0100, L500.2500 ####[facility] [address] [place], [address] ECRCL 44.08 ml/min Normal [facility] Comment on above: Performed By: #### L 100.0100, L500.2500 ####[facility] [address] [place], [address] EST GFR - AA 85 mL/min Normal >60 [facility] Comment on above: Result Comment: Afri can Mauritian GFR Calc Performed By: #### L 100.0100, L500.2500 ####[facility] [address] [place], [address] GAP 4 Low 5-15 [facility] Comment on above: Performed By: #### L 100.0100, L500.2500 ####[facility] [address] [place], [address] GFR/1.73 sq M.predicted among non-blacks MDRD (S/P/Bld) [Vol rate/Area] 70 mL/min/{1.73_m2} Normal >60 [facility] Comment on above: Result Comment: Non- GFR Calc Performed By: #### L 100.0100, L500.2500 ####[facility] [address] [place], [address] Glucose [Mass/Vol] 91 mg/dL Normal 74-106 [facility] Comment on above: Performed By: #### L 100.0100, L500.2500 ####[facility] [address] [place], [address] Potassium [Moles/Vol] 3.8 mmol/L Normal 3.5-5.1 [facility] Comment on above: Performed By: #### L 100.0100, L500.2500 ####[facility] [address] [place], [address] Sodium [Moles/Vol] 142 mmol/L Normal 136-145 [facility] Comment on above: Performed By: #### L 100.0100, L500.2500 ####[facility] [address] [place], [address] Urea nitrogen [Mass/Vol] 25 mg/dL High 7-18 [facility] Comment on above: Performed By: #### L 100.0100, L500.2500 ####[facility] [address] [place], [address] CBC W/Diff, Automatedon 10-3 0-2024 Absolute Lymph 1.77 X10 3/uL Normal 0.83-4.51 [facility] Comment on above: Performed By: #### L 100.0100, L500.2500 ####[facility] [address] [place], [address] Absolute Neut 6.0 X10 3/uL Normal 2.0-7.7 [facility] Comment on above: Performed By: #### L 100.0100, L500.2500 ####[facility] [address] [place], [address] Basophils/100 WBC (Bld) 0.7 % Normal 0-1 [facility] Comment on above: Performed By: #### L 100.0100, L500.2500 ####[facility] [address] [place], [address] Eosinophils/100 WBC (Bld) 9.7 % High 0-5 [facility] Comment on above: Performed By: #### L 100.0100, L500.2500 ####[facility] [address] [place], [address] Erythrocyte distribution width (RBC) [Ratio] 13.2 % Normal 11.6-14.6 [facility] Comment on above: Performed By: #### L 100.0100, L500.2500 ####[facility] [address] [place], [address] Hematocrit (Bld) [Volume fraction] 38.9 % Low 40-54 [facility] Comment on above: Performed By: #### L 100.0100, L500.2500 ####[facility] [address] [place], [address] Hemoglobin (Bld) [Mass/Vol] 12.5 g/dL Low 13.0-16.5 [facility] Comment on above: Performed By: #### L 100.0100, L500.2500 ####[facility] [address] [place], [address] IG% 0.600 Normal 0.0-0.9 [facility] Comment on above: Result Comment: IG% - Immature Granulocytes (promyelocytes, myelocytes andmetamyelocytes) > 1% indicates that a LEFT SHIFT is Present. Performed By: #### L 100.0100, L500.2500 ####[facility] [address] [place], [address] Lymphocytes/100 WBC (Bld) 17.7 % Low 19-41 [facility] Comment on above: Performed By: #### L 100.0100, L500.2500 ####[facility] [address] [place], [address] MCH (RBC) [Entitic mass] 29.0 pg Normal 27.0-32.0 [facility] Comment on above: Performed By: #### L 100.0100, L500.2500 ####[facility] [address] [place], [address] MCHC (RBC) [Mass/Vol] 32.1 g/dL Normal 32-36 [facility] Comment on above: Performed By: #### L 100.0100, L500.2500 ####[facility] [address] [place], [address] MCV (RBC) [Entitic vol] 90.3 fL Normal 80-94 [facility] Comment on above: Performed By: #### L 100.0100, L500.2500 ####[facility] [address] [place], [address] Monocytes/100 WBC (Bld) 11.1 % High 0-10 [facility] Comment on above: Performed By: #### L 100.0100, L500.2500 ####[facility] [address] [place], [address] Neutrophils/100 WBC (Bld) 60.2 % Normal 47-70 [facility] Comment on above: Performed By: #### L 100.0100, L500.2500 ####[facility] [address] [place], [address] Nucleated RBC (Bld) [#/Vol] 0 10*3/uL Normal 0-5 [facility] Comment on above: Performed By: #### L 100.0100, L500.2500 ####[facility] [address] [place], [address] Platelet mean volume (Bld) [Entitic vol] 10.7 fL Normal 6.2-12.0 [facility] Comment on above: Performed By: #### L 100.0100, L500.2500 ####[facility] [address] [place], [address] Platelets (Bld) [#/Vol] 273 10*3/uL Normal 150-450 [facility] Comment on above: Performed By: #### L 100.0100, L500.2500 ####[facility] [address] [place], [address] RBC (Bld) [#/Vol] 4.31 10*6/uL Low 4.6-6.2 [facility] Comment on above: Performed By: #### L 100.0100, L500.2500 ####[facility] [address] [place], [address] RDW SD 43.6 fl Normal 35.1-43.9 [facility] Comment on above: Performed By: #### L 100.0100, L500.2500 ####[facility] [address] [place], [address] WBC (Bld) [#/Vol] 10.0 10*3/uL Normal 4.4-11.0 [facility] Comment on above: Performed By: #### L 100.0100, L500.2500 ####[facility] [address] [place], [address] Vitamin B12on 03-06-2024 Cobalamin (Vitamin B12) [Mass/Vol] 1389 pg/mL High 211-911 [facility] Comment on above: Performed By: #### L 503.0105 ####[facility] [address] [place], [address] CASE MANAGEMon 03-05-2024 CASE MANAGEM HNO ID: [id number] Author: HERMILA MORGAN RN Service: ? Author Type: Registered Nurse Type: Care Mgt Progress Note Filed: 03/05/2024 13:22 Note Text: CARE MANAGEMENT DISCHARGE NOTE SERVICE DATE: March 05, 2024 SERVICE TIME: 1:08 PM Admission Date: 02/26/2024 LOS: 8 days Discharge Arrangement Discharge Arrangement: Nursing Home Facility Was an expedited discharge program used?: No Services Arranged Provider Name: [facility] Caregiver Assessment Caregiver is ready, willing and able to meet the patient's needs as recommended by the inter-professional team: Yes Name of Caregiver: [facility] Transportation Arrangements Transportation Arrangements: Ambulance Transportation Agency and Phone #:: [facility] [phone] Date of Trip: 03/05/24 Time of Trip: 1800 Type of Service: BLS Non-emergency Is Patient Medicaid Pending?: No Was transportation financial coverage discussed with family?: Patient;Spouse Binding [employer] Location: [place] Destination: [facility] Financial Care Management Responsibility: None Handoff Communication: Handoff to: Primary Care Physician Primary Care Physician Name/Phone: Daniel Perez MD - [phone] Additional Information: Orders received for patient to discharge to SNF. [facility] is able to accept patient today. Precert approval received. Patient and spouse agreeable to discharge plan. Ambulance transport via MMT at 1800. Envelope prepared. Bedside RN updated. 1:15 PM MMT was able to provide and earlier time. MMT scheduled for 1600. Spouse notified. SIGNATURE: Hermila Morgan RN PATIENT NAME: Ayesha Jacobsen DATE: March 05, 2024 TIME: 1:08 PM CONTACT #: [phone] [facility] CASE MANAGEM HNO ID: [id number] Author: HERMILA MORGAN RN Service: ? Author Type: Registered Nurse Type: Care Mgt Progress Note Filed: 03/05/2024 13:06 Note Text: CARE MANAGEMENT PROGRESS NOTE SERVICE DATE: 03/05/2024 SERVICE TIME: 1:06 PM LOS: 8 days IMM Follow Up Copy Given: Yes Copy given to:: Patient Picture Booker Picture Booker Name/Relationship: spouse - Marilyn Method: By Phone SIGNATURE: Hermila Morgan RN PATIENT NAME: Ayesha Jacobsen DATE: March 05, 2024 TIME: 1:06 PM PAGER/CONTACT #: [phone] [facility] CASE MANAGEM HNO ID: [id number] Author: HERMILA MORGAN RN Service: ? Author Type: Registered Nurse Type: Care Mgt Progress Note Filed: 03/05/2024 12:44 Note Text: CARE MANAGEMENT PROGRESS NOTE SERVICE DATE: 03/05/2024 SERVICE TIME: 12:43 PM] LOS: 8 days Needs Prior to Discharge: To Be Determined EMR reviewed. Precert approval received for [facility] Dr. Perez notified. CM will follow. SIGNATURE: Hermila Morgan RN PATIENT NAME: Ayesha Jacobsen DATE: March 05, 2024 TIME: 12:43 PM PAGER/CONTACT #: [phone] [facility] CASE MANAGEM HNO ID: [id number] Author: DANIEL PEREZ MD Service: Family Practice Author Type: Physician Type: Care Mgt Progress Note Filed: 03/05/2024 12:30 Note Text: CARE MANAGEMENT PROGRESS NOTE SERVICE DATE: 03/05/2024 SERVICE TIME: 11:46 AM LOS: 8 days Physician Certification of Less Than 30 Days Skilled Needs Earliest Possible Discharge Date: 03/05/24 To the best of my knowledge, all information provided about the individual is a true and an accurate reflection of Ayesha Jacobsen's needs. I certify that following the inpatient level of care, a post-acute nursing facility stay is required for less than 30 days related to the condition(s) for which the patient was treated during the inpatient level of care: Principal Problem: Delirium Active Problems: Primary hypertension BPH (benign prostatic hyperplasia) Acute on chronic urinary retention Leukocytosis Acute cystitis with hematuria ANDREWS (acute kidney injury) (HCC) Acute metabolic encephalopathy Stroke-like symptoms Resolved Problems: * No resolved hospital problems. * Attending Physician: Daniel Perez MD SIGNATURE: Hermila Morgan RN PATIENT NAME: Ayesha Jacobsen DATE: March 05, 2024 TIME: 11:46 AM PAGER/CONTACT #: [phone] [facility] CBC panel Auto (Bld)on 03-05 Erythrocyte distribution width (RBC) [Ratio] 13.3 % Normal 11.5-15.0 [facility] Comment on above: Order Comment: Speci men Type: BLOOD SPECIMENOrdering Facility: [facility] Address: [address] [place] [address] Performed By: #### 5 8410-2 ####[facility] LABORATORYCLIA [id number] [address] OF [facility] Hematocrit (Bld) [Volume fraction] 39.8 % Normal 39.0-51.0 [facility] Comment on above: Order Comment: Speci men Type: BLOOD SPECIMENOrdering Facility: [facility] Address: [address] [place] [address] Performed By: #### 5 8410-2 ####[facility] LABORATORYCLIA [id number] [address] [place] Hemoglobin (Bld) [Mass/Vol] 12.9 g/dL Low 13.0-17.0 [facility] Comment on above: Order Comment: Speci men Type: BLOOD SPECIMENOrdering Facility: [facility] Address: [address] [place] [address] Performed By: #### 5 8410-2 ####[facility] LABORATORYCLIA [id number] [address] [place] MCH (RBC) [Entitic mass] 29.3 pg Normal 26.0-34.0 [facility] Comment on above: Order Comment: Speci men Type: BLOOD SPECIMENOrdering Facility: [facility] Address: [address] [place] [address] Performed By: #### 5 8410-2 ####[facility] LABORATORYCLIA [id number] [address] [place] MCHC (RBC) [Mass/Vol] 32.4 g/dL Normal 30.5-36.0 [facility] Comment on above: Order Comment: Speci men Type: BLOOD SPECIMENOrdering Facility: [facility] Address: [address] [place] [address] Performed By: #### 5 8410-2 ####[facility] LABORATORYCLIA [id number] [address] [place] MCV (RBC) [Entitic vol] 90.2 fL Normal 80.0-100.0 [facility] Comment on above: Order Comment: Speci men Type: BLOOD SPECIMENOrdering Facility: [facility] Address: [address] [place] [address] Performed By: #### 5 8410-2 ####[facility] LABORATORYCLIA [id number] [place] [address] [place] Nucleated RBC (Bld) [#/Vol] 10*3/uL Normal <0.01 [facility] Comment on above: Order Comment: Speci men Type: BLOOD SPECIMENOrdering Facility: [facility] Address: [address] [place] [address] Performed By: #### 5 8410-2 ####[facility] LABORATORYCLIA [id number] [address] [place] Platelet mean volume (Bld) [Entitic vol] 10.7 fL Normal 9.0-12.7 [facility] Comment on above: Order Comment: Speci men Type: BLOOD SPECIMENOrdering Facility: [facility] Address: [address] [place] [address] Performed By: #### 5 8410-2 ####[facility] LABORATORYCLIA [id number] [address] [place] Platelets (Bld) [#/Vol] 263 10*3/uL Normal 150-400 [facility] Comment on above: Order Comment: Speci men Type: BLOOD SPECIMENOrdering Facility: [facility] Address: [address] [place] [address] Performed By: #### 5 8410-2 ####[facility] LABORATORYCLIA [id number] [place] [address] [place] RBC (Bld) [#/Vol] 4.41 10*6/uL Normal 4.20-6.00 [facility] Comment on above: Order Comment: Speci men Type: BLOOD SPECIMENOrdering Facility: [facility] Address: [address] [place] [address] Performed By: #### 5 8410-2 ####[facility]ORATORYCLIA [id number] [place] [address] [place] WBC (Bld) [#/Vol] 13.16 10*3/uL High 3.70-11.00 [facility] Comment on above: Order Comment: Speci men Type: BLOOD SPECIMENOrdering Facility: [facility] Address: [facility] [place] [address] Performed By: #### 5 8410-2 ####[facility] LABORATORYCLIA [id number] [place] [address] [facility] CNDSon 03-05-2024 CNDS HNO ID: [id number] Author: DANIEL PEREZ MD Service: Family Practice Author Type: Physician Type: Discharge Summary Filed: 03/05/2024 12:52 Note Text: DISCHARGE SUMMARY PATIENT NAME: Ayesha Jacobsen Code Status: DNR-CCA, DNI Highest Readmission Risk Score: 20 The 30 day readmissions risk score is derived from an internally validated risk model which evaluates patient level characteristics, utilization history, medication orders and lab results up until the day of discharge. Patients with a score of 40 or above are considered highest risk for readmission. Specific patient level drivers will be listed at the bottom of the summary. Admission Information Admission Information ADMIT DATE: 02/26/2024 DISCHARGE DATE: 03/05/2024 MY DOCTORS AND MEDICAL TEAM: My Main Hospital Doctor: Daniel Perez MD Primary Care Provider: Daniel Perez MD My Medical Team Members: Treatment Team: Attending Provider: Daniel Perez MD MY CONDITION AT DISCHARGE: Stable REASON I WAS IN THE HOSPITAL: confusion SUMMARY OF WHAT HAPPENED WHILE I WAS IN THE HOSPITAL: you were sent to the ER from the office because of confusion and concerns for stroke. Neurology consult found no evidence for stroke but evidence for seizure disorder and started medications that seem to improve. We had urology eval your case and the did not want you to have a catheter. OTHER PROBLEMS/DIAGNOSIS: Principal Problem: Delirium Active Problems: Primary hypertension BPH (benign prostatic hyperplasia) Acute on chronic urinary retention Leukocytosis Acute cystitis with hematuria ANDREWS (acute kidney injury) (HCC) Acute metabolic encephalopathy Resolved Problems: * No resolved hospital problems. * OPERATIONS PERFORMED WHILE IN THE HOSPITAL: None IMPORTANT TEST/PROCEDURES: No procedures performed TEST RESULTS NOT AVAILABLE AT THIS TIME: No pending results Discharge Disposition Discharge Disposition: Home With Self Care Activity When You Leave the Hospital Resume pre-hospital activity Diet Instructions Resume your pre-hospital diet Call Your Doctor If Your temperature is greater than 101F Follow Up Appointments Follow-Up Appointment When: In 1 week Patient/Parents to call for appointment?: Yes Daniel Perez MD [phone] [facility] [address] PCP Requested Referral GENERAL: alert, no distress, cooperative SKIN: No rashes or lesions. OROPHARYNX: Oropharynx normal. NECK: no jugulovenous distention, supple LUNGS: Lungs clear to auscultation. CARDIAC: normal S1 and S2; no rubs, murmurs, or gallops ABDOMEN: Abdomen soft, non-tender. BS normal. No masses or organomegaly. EXTREMETIES: No deformities, cyanosis, edema, clubbing or skin discoloration. NEURO: Alert, oriented X 3, Gait normal. Motor and Sensation grossly intact., Treatment Team: Attending Provider: Daniel Perez MD Transitions of Care Critical Issues: none FOLLOW-UP APPOINTMENTS ALREADY SCHEDULED WITH A [facility] PROVIDER: Future Appointments Date Time Provider Department Center 07/15/2024 10:30 AM ECHOCARDIOGRAM [facility] 07/22/2024 3:20 PM Fabricio Hall MD [facility] ALLERGIES Allergen Reactions Eggs [Egg] Hives, Shortness of Breath DISCHARGE MEDICATION: Medication List START taking these medications levETIRAcetam 500 mg tablet Commonly known as: KEPPRA Take 1 tablet by mouth two times a day. CONTINUE taking these medications ALEVE PM ORAL lisinopril 10 mg tablet Commonly known as: ZESTRIL Take 1 tablet by mouth once daily. meclizine 25 mg Tab Commonly known as: ANTIVERT Take 1 tablet by mouth three times a day as needed. PRILOSEC ORAL tamsulosin 0.4 mg Commonly known as: FLOMAX VITAMIN B-12 ORAL STOP taking these medications ciprofloxacin HCl 500 mg tablet Commonly known as: CIPRO Where to Get Your Medications These medications were sent to [facility] [place] [address] - [address] - [phone] [address] [place] [address] levETIRAcetam 500 mg tablet The patient's risk for 30-day readmission is determined using the following contributing factors: Pt variables contributing to increased readmission risk: 24 Most Recent BUN Result 8.7 First Resulted Calcium During Admission 6 Active Medication Orders 2 Number of Previous ED Visits (6 mos.) 1 Previous ED Visit (6 mos.)? 1 Insurance - Medicare 1 Barriers to Health Literacy Identified Plan of care discussed with Provider, RN, Patient I have performed the [id number] and relevant services for a total of < 30 minutes. SIGNATURE: Daniel Perez MD DATE: March 05, 2024 TIME: 12:50 PM Normal [facility] Comprehensive metabolic 2000 panelon 03-05-2024 Albumin [Mass/Vol] 3.3 g/dL Low 3.9-4.9 [facility] Comment on above: Order Comment: Speci men Type: BLOOD SPECIMENOrdering Facility: [facility] Address: [address] [place] [address] Performed By: #### 2 4323-8 ####[facility] LABORATORYCLIA [id number] [address] ALP [Catalytic activity/Vol] 69 U/L Normal 38-113 [facility] Comment on above: Order Comment: Speci men Type: BLOOD SPECIMENOrdering Facility: [facility] Address: [address] [place] [address] Performed By: #### 2 4323-8 ####[facility] LABORATORYCLIA [id number] [address] [place] OF [facility] ALT [Catalytic activity/Vol] 9 U/L Low 10-54 [facility] Comment on above: Order Comment: Speci men Type: BLOOD SPECIMENOrdering Facility: [facility] Address: [address] [place] [address] Performed By: #### 2 4323-8 ####[facility] LABORATORYCLIA [id number] [address] Anion gap [Moles/Vol] 7 mmol/L Low 8-15 [facility] Comment on above: Order Comment: Speci men Type: BLOOD SPECIMENOrdering Facility: [facility] Address: [address] [place] [address] Performed By: #### 2 4323-8 ####[facility] LABORATORYCLIA [id number] [place] [address] [place] AST [Catalytic activity/Vol] 12 U/L Low 14-40 [facility] Comment on above: Order Comment: Speci men Type: BLOOD SPECIMENOrdering Facility: [facility] Address: [address] [place] [address] Performed By: #### 2 4323-8 ####[facility] LABORATORYCLIA [id number] [place] [address] [place] Bilirubin [Mass/Vol] 0.6 mg/dL Normal 0.2-1.3 [facility] Comment on above: Order Comment: Speci men Type: BLOOD SPECIMENOrdering Facility: [facility] Address: [address] [place] [address] Performed By: #### 2 4323-8 ####[facility] LABORATORYCLIA [id number] [place] [address] [place] Calcium [Mass/Vol] 8.9 mg/dL Normal 8.5-10.2 [facility] Comment on above: Order Comment: Speci men Type: BLOOD SPECIMENOrdering Facility: [facility] Address: [address] [place] [address] Performed By: #### 2 4323-8 ####[facility] LABORATORYCLIA [id number] [place] [address] [place] Chloride [Moles/Vol] 107 mmol/L Normal 98-107 [facility] Comment on above: Order Comment: Speci men Type: BLOOD SPECIMENOrdering Facility: [facility] Address: [address] [place] [address] Performed By: #### 2 4323-8 ####[facility] LABORATORYCLIA [id number] [place] [address] [place] CO2 [Moles/Vol] 27 mmol/L Normal 22-30 [facility] Comment on above: Order Comment: Speci men Type: BLOOD SPECIMENOrdering Facility: [facility] Address: [address] [place], [place] [address] [address] Performed By: #### 2 4323-8 ####[facility] LABORATORYCLIA [id number] [place] [address] [place] Creatinine [Mass/Vol] 1.06 mg/dL Normal 0.73-1.22 [facility] Comment on above: Order Comment: [facility] Type: BLOOD SPECIMENOrdering Facility: [facility] Address: [address] [place] [address] Performed By: #### 2 4323-8 ####[facility] LABORATORYCLIA [id number] [address] Creatinine and Glomerular filtration rate.predicted panel (S/P/Bld) 68 mL/min/1.73m??? Normal >=60 [facility] Comment on above: Order Comment: Jame amaya Type: BLOOD SPECIMENOrdering Facility: [facility] Address: [address] [place] [address] Result Comment: Radha mated Glomerular Filtration Rate (eGFR) is calculated using the 2020 CKD-EPI creatinine equation. This equation utilizes serum creatinine, sex, and age as parameters. The creatinine assay has traceable calibration to isotope dilution-mass spectrometry. Refer to KDIGO guidelines for clinical interpretation. In patients with unstable renal function, e.g. those with acute kidney injury, the eGFR may not accurately reflect actual GFR. Performed By: #### 2 4323-8 ####[facility] LABORATORYCLIA [id number] [address] [place] Glucose [Mass/Vol] 98 mg/dL Normal 74-99 [facility] Comment on above: Order Comment: Jame amaya Type: BLOOD SPECIMENOrdering Facility: [facility] Address: [address] [place] [address] Result Comment: The [place] Diabetes Association (ADA) provides guidance for cutoff values for fasting glucose and random glucose. The ADA defines fasting as no caloric intake for at least 8 hours. Fasting plasma glucose results between 100 to 125 mg/dL indicate increased risk for diabetes (prediabetes). Fasting plasma glucose results greater than or equal to 126 mg/dL meet the criteria for diagnosis of diabetes. In the absence of unequivocal hyperglycemia, results should be confirmed by repeat testing. In a patient with classic symptoms of hyperglycemia or hyperglycemic crisis, random plasma glucose results greater than or equal to 200 mg/dL meet the criteria for diagnosis of diabetes. Reference: Standards of Medical Care in Diabetes 2016, [place] Diabetes Association. Diabetes Care. 2016.39(Suppl 1). Performed By: #### 2 4323-8 ####[facility] LABORATORYCLIA [id number] [place] [address] [place] Potassium [Moles/Vol] 4.3 mmol/L Normal 3.7-5.1 [facility] Comment on above: Order Comment: Jame amaya Type: BLOOD SPECIMENOrdering Facility: [facility] Address: [address] [place] [address] Performed By: #### 2 4323-8 ####[facility] LABORATORYCLIA [id number] [address] [place] Protein [Mass/Vol] 6.1 g/dL Low 6.3-8.0 [facility] Comment on above: Order Comment: Ruperti monique Type: BLOOD SPECIMENOrdering Facility: [facility] Address: [address] [place] [address] Performed By: #### 2 4323-8 ####[facility] LABORATORYCLIA [id number] [address] [place] [facility] Sodium [Moles/Vol] 141 mmol/L Normal 136-144 [facility] Comment on above: Order Comment: Ruperti monique Type: BLOOD SPECIMENOrdering Facility: [facility] Address: [address] [place] [address] Performed By: #### 2 4323-8 ####[facility] LABORATORYCLIA [id number] [place] [address] [place] Urea nitrogen [Mass/Vol] 24 mg/dL Normal 9-24 [facility] Comment on above: Order Comment: Jame amaya Type: BLOOD SPECIMENOrdering Facility: [facility] Address: [address] [place] [address] Performed By: #### 2 4323-8 ####[facility] LABORATORYCLIA [id number] [place] [address] [place] THERAPY NTon 03-05-2024 THERAPY NT HNO ID: [id number] Author: ANDREW DANIELS PTA Service: Physical Therapy Author Type: Dress Draper Type: Therapy (PT/OT/Speech/Resp) Filed: 03/05/2024 11:35 Note Text: -- Attestation signed by Wendy Fisher PT at 03/05/2024 5:14 PM I reviewed and agree with the documentation corresponding to this therapy visit. SIGNATURE: Wendy Fisher PT DATE: March 05, 2024 TIME: 5:14 PM -- Physical Therapy Treatment Summary SERVICE DATE: 03/05/2024 SERVICE TIME: 1101 to 1125 ROOM: [id number] PT 6 Clicks Score: 22 DISCHARGE RECOMMENDATIONS Home PT (with 24hr supevision) Recommended Discharge Disposition Comments: Patient would benefit from continued PT to address current strenght, balance and safety deficits. Recommended Discharge Disposition Due to: Functional deficits requiring ongoing therapy service prior to discharge home., Anticipated community discharge, Coordination deficits, Balance deficits, Functional status decline, Motor planning deficits, Requires multiple therapy disciplines Recommended Discharge Equipment: No equipment needs anticipated ASSESSMENT Response to Therapy Interventions: Good Participation in Activities, Improved Tolerance for Activity, On-Track to Achieve Discharge Goals, Pain Patient successfully able to tolerate gait training and seated exercises. Patient tachcardiac with mobility with HR in 120's re. Patient noted to be forgetful throughout however, appropriatly follows therapist cues. Patient will require 24hr supervision with home going for optimal safety and fall risk prevention initially. DC recommendation switched from SNF to Home PT secondary to improved activity tolerance and level of assist required. PRECAUTIONS Bed/Chair Alarm, Fall Risk, Lines/Tubes/Drains standard CURRENT HOSPITAL COURSE MRI: Chronic microvascular changes. A few punctate remote microhemorrhages in the supratentorial brain parenchyma Relevant Past Medical History: HTN, BPH, ANDREWS, metabolic encephalopathy, L inguinal hernia, GERD, aortic valve disorder, asthma HOME LIVING Patient Lives With: Spouse Assistance Available: 24-Hour Entry To Home: Stairs, Without Rail Number Of Stairs Into Home: 3 Number Of Stairs To Bed/Bath: 0 Tub/Shower Type: walk in shower Laundry: completes at baseline Equipment Owned: Cane PRIOR FUNCTIONAL LEVEL Within Functional Limits, Poor Historian, Unable to Assess, Unable to Report Pt reports independence with ADLS, spouse completes IADLs, spouse drives, does not use assistive device, reports recent fall. Questionable historian. SUBJECTIVE Patient pleasant and motivated to participate with PT. Ok per RN. THERAPY DIAGNOSIS Reduced mobility-other, Muscle Weakness (generalized), Unsteadiness on feet TREATMENT INTERVENTIONS Therapeutic Exercise (09278), Therapeutic Activity (01943), Gait Training (20507) Timed Code Treatment (minutes): 24 Skilled Treatment Time (minutes): 24 Therapeutic Exercise (65482) Treatment Minutes: 10 $ Therapeutic Exercise (48121) Billed Units: 1 unit Exercise Ankle Pumps (number of reps): x15 B LE Glut Sets (number of reps): x15 B Heel Slides (number of reps): x15 B LE LAQ (number of reps): x15 B LE SLR (number of reps): x15 B LE Hip Abduction (number of reps): x15 B LE Exercise: x15 B LE hip adduction, x15 B LE hip flexion. All exercises performed seated and were slightly manually resisted. Cues for correct performance. rest breaks throughout. Therapeutic Activity (45816) Treatment Minutes: 4 $ Therapeutic Activity (13558) Billed Units: 0 units Gait Training (74826) Treatment Minutes: 10 $ Gait Training (06349) Billed Units: 1 unit TRAINING AND EDUCATION PROVIDED Advanced Balance Activities, Anatomy and Impact on Deficits, Assistive Device Use, Bed Mobility, Benefits of In-Hospital Mobility, Equipment, Exercise Program, Expected Functional Level, Falls Prevention, Gait Pattern, Reduction of Deviations, Home Set-up/Modifications, Home Safety, Positioning, Patient Exercise/Therapy Program Support Needs, Role of Physical Therapy, Standing Balance THERAPEUTIC SKILLS USED Activity Dosing, Cues for Sequencing/Proper Technique for Activity, Movement Facilitation, Muscle Activation Facilitation, Postural Alignment Correction, Cuing Verbal FUNCTIONAL STATUS Bed Mobility Supine To Sit: Stand By Assistance HOB flat, no use of rails Sit to Supine: Stand By Assistance HOB flat, no use of rails Scooting: Independent in sitting forward/retro/up in bed Transfers Sit To Stand: Stand By Assistance x3 trials from low bed height Stand To Sit: Stand By Assistance Cues for safe approach, hand placement and controlled/eccentric decent Bed to Chair Gait Contact Guard Assistance Step-to gait, cues for (more content not included)... [facility] HNO ID: [id number] Author: IRENE RICCI RT(R) Service: Radiology Author Type: Technologist Type: [facility] Filed: 03/04/2024 17:19 Note Text: Radiology Service Progress Note PATIENT NAME: Ayesha Jacobsen DATE OF SERVICE: March 04, 2024 TIME: 5:19 PM PATIENT IDENTITY VERIFICATION COMPLETED USING TWO (2) IDENTIFIERS: Name and Date of confirmed by patient verbally and Name and Date of confirmed by identification band. FALL SCREENING: Has the patient had 2 falls in the last year or 1 fall with injury or currently using an Ambulatory Assistive Device (Walker, Cane, Wheelchair, Crutches, etc.)? Inpatient: Screened on floor PATIENT GENDER DATA: Male PATIENT RELEVANT IMPLANT DATA REVIEWED: Yes PATIENT PRESENTS WITH AN IMPLANTABLE OR ATTACHED CLERK: No RADIOLOGY DEPARTMENT: MR; Exam(s) Completed: Head: Routine Brain PERIPHERAL IV DATA: Not applicable SIGNED BY: RT Mateus(R) March 04, 2024 5:19 PM [facility] HNO ID: [id number] Author: DESMOND MENDEZ CT Service: Radiology Author Type: Technologist Type: [facility] Filed: 03/04/2024 13:08 Note Text: Radiology Service Progress Note PATIENT NAME: Ayesha Jacobsen DATE OF SERVICE: March 04, 2024 TIME: 1:08 PM PATIENT IDENTITY VERIFICATION COMPLETED USING TWO (2) IDENTIFIERS: Name and Date of confirmed by patient verbally and Name and Date of confirmed by identification band. FALL SCREENING: Has the patient had 2 falls in the last year or 1 fall with injury or currently using an Ambulatory Assistive Device (Walker, Cane, Wheelchair, Crutches, etc.)? Inpatient: Screened on floor PATIENT GENDER DATA: Male PATIENT RELEVANT IMPLANT DATA REVIEWED: Not Applicable PATIENT PRESENTS WITH AN IMPLANTABLE OR ATTACHED CLERK: No RADIOLOGY DEPARTMENT: CT; Exam(s) Completed: Brain PERIPHERAL IV DATA: Inpatient: see LDA documentation SIGNED BY: MELANIE Ortega March 04, 2024 1:08 PM [facility] CASE MANAGEMon 03-04-2024 CASE MANAGEM HNO ID: [id number] Author: MONIQUE VAZQUEZ LSW Service: ASSESSMENT Author Type: Director Of People Type: Care Mgt Progress Note Filed: 03/04/2024 13:43 Note Text: CARE MANAGEMENT PROGRESS NOTE SERVICE DATE: 03/04/2024 SERVICE TIME: 12:46 PM LOS: 7 days Needs Prior to Discharge: To Be Determined;Precertificatio n [facility] reports that [facility] may be able to accept. requested that referral be reviewed. [facility] is pts. First choice. [facility]. Should [facility] be unable to accept, [facility] able to accept. Updated PT/OT notes in [facility], will follow for SNF/Rehab responses. 1:42 PM [facility] has started pre-cert. If denied, will attempt pre-cert for [facility]. CM will continue to follow for receipt. SIGNATURE: Monique Vazquez SUPER[employer]OR [employer] [place] PATIENT NAME: Ayesha Jacobsen DATE: March 04, 2024 TIME: 1:43 PM PAGER/CONTACT #: [facility] CT BRAIN ATTACK WO IVCONon 1 CT BRAIN ATTACK WO IVCON * * *Final Report* * * DATE OF EXAM: Mar 04 2024 1:09PM [facility] [place] BRAIN [place] WO IVCON / PROCEDURE REASON: Neuro deficit, acute, stroke suspected * * * * Physician Interpretation * * * * EXAMINATION: CT BRAIN ATTACK WO IVCON CLINICAL HISTORY: Slurred speech. Brain attack. TECHNIQUE: Routine CT of the brain without IV contrast. MQ: CTBA_4 CT Radiation dose: Integrated CT Dose-Length Product (DLP) for this visit = 748 mGy*cm CT Dose Reduction Employed: No dose reduction techniques were required COMPARISON: Brain MRI, 03/01/[address] and head and neck CTA, 02/22/2024 RESULT: Acute ischemic change: None. ASPECT Score = 10 Hemorrhage: No evidence of acute intracranial hemorrhage. ECASS hemorrhagic transformation score: Not Applicable Mass Lesion / Mass Effect: There is no evidence of an intracranial mass or extraaxial fluid collection. No significant mass effect. Chronic change: Extensive nonspecific low-attenuation in the white matter is similar to previous and likely secondary to chronic small vessel ischemic disease. Parenchyma: Generalized volume loss, unchanged. The brain parenchyma is otherwise within normal limits for age. Ventricles: Ventriculomegaly concordant with the degree of parenchymal volume loss. Other: Scattered paranasal sinus mucosal thickening. A right lens replacement is again noted. The visualized calvarium, skull base, orbits and extracranial soft tissues are otherwise unremarkable. Localizer images: No additional findings. IMPRESSION: No acute intracranial pathology. CRITICAL TEST/RESULTS: Notification initiated at 03/04/2024 1:09 PM. Communicated with NANA CAMERON on 03/04/2024 1:11 PM . CR_1 Machine Bobbin Winder: KIERSTEN Transcribe Date/Time: Mar 04 2024 1:10P Dictated by : VICTORIA PATRICIO MD This examination was interpreted and the report reviewed and electronically signed by: VICTORIA PATRICIO MD on Mar 04 2024 1:14PM EST [id number] CRITICAL!! Invalid Interpretation Code [facility] ECG COMPLETEon 03-04-2024 ECG COMPLETE Ventricular Rate : 8 3 BPM Atrial Rate : 83 BPM P-R Interval : 176 ms QRS Duration : 102 ms Q-T Interval : 398 ms QTC Calculation(Bazett) : 467 ms Calculated P [place] : 18 degrees Calculated R [place] : -34 degrees Calculated T [place] : 36 degrees SINUS RHYTHM WITH SINUS ARRHYTHMIA WITH OCCASIONAL PREMATURE VENTRICULAR COMPLEXES LEFT AXIS DEVIATION INCOMPLETE RIGHT BUNDLE BRANCH BLOCK MINIMAL VOLTAGE CRITERIA FOR LVH, MAY BE NORMAL VARIANT ( R in aVL ) ABNORMAL ECG NO PREVIOUS ECGS AVAILABLE Confirmed by SHAY LUO M.D. ([id number]) on 03/04/2024 3:52:07 PM NAME : AYESHA JACOBSEN PID : [id number] : 1935 Gender : Male Race : ORD : [id number] Procedure Date : Mar 04 2024 13:26:05 Edit Date : Mar 04 2024 15:52:08 Diagnosis: SINUS RHYTHM WITH SINUS ARRHYTHMIA WITH OCCASIONAL PREMATURE VENTRICULAR COMPLEXES LEFT AXIS DEVIATION INCOMPLETE RIGHT BUNDLE BRANCH BLOCK MINIMAL VOLTAGE CRITERIA FOR LVH, MAY BE NORMAL VARIANT ( R in aVL ) ABNORMAL ECG NO PREVIOUS ECGS AVAILABLE Confirmed by SHAY LUO M.D. ([id number]) on 03/04/2024 3:52:07 PM Test Reason : Stroke Location : 3 : 2N 0239 Overread By : SHAY LUO M.D. Edited By : SHAY LUO M.D. Referred By : , Acquired by : Mil stearns [facility] EMERon 03-04-2024 [facility] HNO ID: [id number] Author: ANNA CAMERON APRN.INSTRUCTIONAL SYSTEMS SPECIALIST Service: Critical Care Author Type: Nurse Practitioner Type: Chg in Clinical Condition Filed: 03/04/2024 15:01 Note Text: EMERGENCY RESPONSE TEAM INPATIENT STROKE ALERT Date of MET Page: March 04, 2024 Time of MET Page: 1249 Requesting Provider: Bedside RN SUMMARY DIAGNOSIS, ASSESSMENT and RECOMMENDATIONS 1249 Inpatient Stroke Alert initiated by bedside RN for slurred speech. LKW approximately 1200 pm per RN. BP 103/71. Initial NIH score 1 for slurred speech. BG 86. On my arrival, patient with mild dysarthria and right facial droop. Patient lying in bed, AOX3, keenly responsive. Language is normal, mild dysarthria noted. Mild R facial droop on exam. states this seems similar to his normal, RN endorses same, dentures not in place(not available). No evidence of drift on motor exam. Patient seen by neurology this admission for altered mental status. NIH was 1 at that time for questionable right facial droop. He had global confusion, no focal neuro deficits. EEG completed with potential epileptogenicity in the left hemisphere> started on keppra. MRI brain negative for acute intracranial abnormalities. Will obtain Stat CT brain, not on AC. Patient Denies CP, SOB, palpitations, abdominal pain, N/V, headache, vision changes, numbness or tingling in extremities. No witnessed seizure activity or LOC. EKG with Sinus Rhythm. No known history of atrial fibrillation. Case discussed with Neurology by primary team and myself. Given the unclear chronicity of facial droop(present on neuro exam days ago) and dysarthria, risks do not outweigh benefits for TNK administration. After discussion, will obtain MRI today, repeat EEG, obtain keppra level. Stroke like symptoms-Slurred speech, right facial droop (unknown chronicity). - Plan: -Not a TNK candidate -Neuro checks -NPO until dysphagia screen -reconsult teleneuro -Repeat MRI per Neuro recommendations -EKG -Consider ECHO -PT/OT/Speech previously on consult. -SCDs -Aspiration precautions,Fall precautions -A1C, lipid panel NIHSS: 1a) LOC: 0- alert and responsive. 1b) LOC questions (age/month): 0- both correct. 1c) LOC commands (close eyes/thoroughbred horse farm manager): 0- both correct. 2) Best gaze: 0- normal gaze. 3) Visual vizcarra:0- no visual loss. 4) Facial palsy: 1- minor paralysis (normal looking face, asymmetric smile). 5a) Motor left arm: 0- no drift. 5b) Motor right arm: 0- no drift. 6a) Motor left le- no drift. 6b) Motor right le- no drift. 7) Limb ataxia: 0- no ataxia (or aphasic, hemiplegic). 8) Sensory: 0- normal. 9) Best language: 0- normal. 10) Dysarthria (read word list): 1- mild-mod slurred. 11) Extinction/neglect (sensory/visual): 0- normal, none detected (or visual loss alone). Total: 2 * states right facial droop is near baseline, RN confirms* Status: Stable PLAN, DISPOSITION and OUTCOME Responded to therapy, remains on current unit under care of: Dr. Perez History of Present Illness: 88 year old male with a past medical history significant for hypertension, GERD, and BPH, who presents to the emergency department with complaints of confusion that started on Monday. patient was recently admitted to the hospital 02/21- 02/23 for dizziness. patient was worked up for a stroke with no acute findings and sent home on antivert. patient on Monday began to have some confusion. was seen by PCP today for the hospital admission F/U and was advised to return back tot he ED secondary to worsening confusion, decreased ambulation, off balance and a decreased appetite. PRIMARY REASON FOR CALL Acute Neurological Change: For symptoms of stroke - new onset of motor or sensory changes - Acute Stroke Service notified PAST MEDICAL / SURGICAL HISTORY PAST MEDICAL HISTORY Diagnosis Date Congenital tracheoesophageal fistula, esophageal atresia and stenosis Diverticulosis of colon with hemorrhage Essential hypertension 07/24/2017 GERD (gastroesophageal reflux disease) 07/24/2017 Stricture and stenosis of esophagus , PAST SURGICAL HISTORY Procedure Laterality Date EGD FLEXIBLE FOREIGN BODY REMOVAL 07/24/13 distal stenosis ESOPHAGOSCOPY FLEX BALLOON DILAT <30 MM DIAM 06/27/2008 Esophageal dilatation ESOPHAGOSCOPY FLEX BALLOON DILAT <30 MM DIAM 07/25/08 ESOPHAGOSCOPY FLEXIBLE REMOVAL FOREIGN BODY 05/27/08 ER [facility] PAST SURGICAL HISTORY OF Mid COLON RESECTION REPAIR INGUINAL HERNIA Left 07/25/2017 , Active Hospital Problems Diagnosis Delirium Acute metabolic encephalopathy Leukocytosis Acute cystitis with hematuria ANDREWS (acute kidney injury) (HCC) Acute on chronic urinary retention BPH (benign prostatic hyperplasia) Primary hypertension MEDICATIONS Current Facility-Administered Medications Medication Dose Route Frequency levETIRAcetam 500 mg tab(s) (KEPPRA) 500 mg ORAL BID melatonin 6 mg tab(s) 6 mg OR (more content not included)... Normal [facility] MRI [facility] * * *Final Report* * * DATE OF EXAM: Mar 04 2024 5:45PM [facility] 0294 - MRI BRAIN WO IVCON / PROCEDURE REASON: slurred speech * * * * Physician Interpretation * * * * EXAMINATION: MRI BRAIN WO IVCON CLINICAL HISTORY: Slurred speech TECHNIQUE: Routine noncontrast MRI protocol including diffusion images. MQ: [id number]_2 COMPARISON: Head CT 03/04/2024, head MRI 03/01/2024 RESULT: Acute Change: There is no evidence of restricted diffusion to suggest an acute infarct. Hemorrhage: No evidence of prior parenchymal hemorrhage on the susceptibility weighted images. Mass Lesion/ Mass Effect: No evidence of an intracranial mass or extra-axial fluid collection. No significant mass effect. Chronic Change: Extensive, confluent increased T2 and FLAIR signal is present in the supratentorial white matter which is nonspecific but likely represents extensive chronic microvascular ischemia. Remote lacunar infarct in the left thalamus. Parenchyma: There is moderate generalized parenchymal volume loss. The brain parenchyma is otherwise within normal limits of signal intensity and morphology. Ventricles: Ventriculomegaly corresponds to the degree of parenchymal volume loss. Skull Base: Hypothalamic and pituitary region are grossly normal. Craniocervical junction is normal. No significant marrow replacement process. Vasculature: Major intracranial arterial structures, and dural venous sinuses show typical flow void, suggesting patency by spin echo criteria. Other: Trace fluid in the right mastoid air cells. The visualized paranasal sinuses and mastoid air cells are otherwise clear. The orbits and extracranial soft tissues are unremarkable. Right pseudophakia. IMPRESSION: No acute intracranial abnormality including no evidence of an acute parenchymal infarct. No significant change from the 03/01/2024 examination. Machine Bobbin Winder: PSYCHIATRICB Transcribe Date/Time: Mar 04 2024 5:46P Dictated by : GARRETT REYES DO This examination was interpreted and the report reviewed and electronically signed by: GARRETT REYES DO on Mar 04 2024 5:49PM EST [id number] [facility] THERAPY NTon 03-04-2024 THERAPY NT HNO ID: [id number] Author: WENDY FISHER PT Service: Physical Therapy Author Type: Physical Therapist Type: Therapy (PT/OT/Speech/Resp) Filed: 03/04/2024 11:17 Note Text: -- Summary: PT Treatment (Pre-cert) -- Physical Therapy Treatment Summary SERVICE DATE: 03/04/2024 SERVICE TIME: 1046 to 1111 ROOM: [id number] PT 6 Clicks Score: 18 DISCHARGE RECOMMENDATIONS Subacute/SNF Recommended Discharge Disposition Comments: Pt is currently performing all functional mobility below PLOF and requires continued skilled PT to maximize tolerance to mobility, return to PLOF and reduce risk of falls and rehospitalization. Recommended Discharge Disposition Due to: Functional deficits requiring ongoing therapy service prior to discharge home., Anticipated community discharge, Coordination deficits, Balance deficits, Functional status decline, Motor planning deficits, Requires multiple therapy disciplines Recommended Discharge Equipment: No equipment needs anticipated ASSESSMENT Response to Therapy Interventions: Cognitive Deficits, Low Activity Tolerance, Requires Additional Time to Complete Activities, Labile Vital Signs, Good Participation in Activities, Improved Tolerance for Activity Pt progressing with tolerance to standing and ambulation with standing rest break required during ambulatory bout with improved posture noted; reduced terminal knee extension in stance noted with visible quad fatigue B. Pt with elevated HR with extended recovery time, primary nurse notified of elevated HR post-mobility. Pt is a falls risk according to 5x STS. PRECAUTIONS Bed/Chair Alarm, Fall Risk, Lines/Tubes/Drains standard CURRENT HOSPITAL COURSE MRI: Chronic microvascular changes. A few punctate remote microhemorrhages in the supratentorial brain parenchyma Relevant Past Medical History: HTN, BPH, ANDREWS, metabolic encephalopathy, L inguinal hernia, GERD, aortic valve disorder, asthma HOME LIVING Patient Lives With: Spouse Assistance Available: 24-Hour Entry To Home: Stairs, Without Rail Number Of Stairs Into Home: 3 Number Of Stairs To Bed/Bath: 0 Tub/Shower Type: walk in shower Laundry: completes at baseline Equipment Owned: Cane PRIOR FUNCTIONAL LEVEL Within Functional Limits, Poor Historian, Unable to Assess, Unable to Report Pt reports independence with ADLS, spouse completes IADLs, spouse drives, does not use assistive device, reports recent fall. Questionable historian. SUBJECTIVE Pt agreeable to PT and mobility, reporting not getting up much with staff other than therapy. THERAPY DIAGNOSIS Reduced mobility-other, Muscle Weakness (generalized), Unsteadiness on feet TREATMENT INTERVENTIONS Therapeutic Activity (44056), Gait Training (26123) Timed Code Treatment (minutes): 25 Skilled Treatment Time (minutes): 25 Therapeutic Activity (51056) Treatment Minutes: 15 $ Therapeutic Activity (12175) Billed Units: 1 unit Gait Training (38080) Treatment Minutes: 10 $ Gait Training (88266) Billed Units: 1 unit TRAINING AND EDUCATION PROVIDED Bed Mobility, Benefits of In-Hospital Mobility, Discharge Planning, Expected Functional Level, Falls Prevention, Equipment, Gait Pattern, Reduction of Deviations, Precautions/Restrictions, Role of Physical Therapy, Transfers, Assistive Device Use, Pre-gait Activities, Standing Balance, Treatment Protocol, Energy Conservation, Positioning THERAPEUTIC SKILLS USED Activity Dosing, Cuing Verbal, Cues for Sequencing/Proper Technique for Activity, Management of Critical Lines, Tubes and/or Drains, Muscle Activation Facilitation, Physical Assist, Postural Alignment Correction, Cuing Tactile, Movement Facilitation, Assessment of Tolerance Including Vitals Response to Activity FUNCTIONAL STATUS Bed Mobility Supine To Sit: Stand By Assistance Sit to Supine: Additional Information, Supervision partially elevated HOB Scooting: Additional Information, Supervision repositioning twice towards HOB with cues Transfers Sit To Stand: Additional Information, Minimal Assistance, Contact Guard Assistance impaired ability to follow commands, instability with initial stand, additional reps completed for 5x STS Stand To Sit: Additional Information, Minimal Assistance assist for eccentric control Bed to Chair Gait Additional Information, Minimal Assistance, Contact Guard Assistance reciprocal stepping, ataxia improved from previous trial, pt with Bharati when negotiating tight obstacles frequently crashing into obstacles in tight spaces Gait Device: Wheeled Walker General Deviations/Observations: Elvira decreased, Difficulty changing direction/turning, Lateral sway increased, Visual scanning/environmental awareness decreased, Step length decreased, Path Deviation Gait (more content not included)... [facility] THERAPY NT HNO ID: [id number] Author: JOHN VALENTINE OTR/L Service: Occupational Therapy Author Type: Occupational Therapist Type: Therapy (PT/OT/Speech/Resp) Filed: 03/04/2024 10:39 Note Text: -- Summary: BRIE smith note -- Occupational Therapy Treatment Summary SERVICE DATE: 03/04/2024 SERVICE TIME: 0930 to 1001 ROOM: [id number] OT 6 Clicks Score: 20 DISCHARGE RECOMMENDATIONS Subacute/SNF Recommended Discharge Disposition Comments: SHORT TERM, for optimal patient benefit due to recent illness and falls. Recommended Discharge Disposition Due to: Patient requires active, intensive rehabilitation by multiple therapy disciplines. Anticipate the patient will tolerate 3 hours of therapy per day., ADL impairment, Anticipated community discharge, Functional status decline, Cognitive deficits new/worsened, Requires multiple therapy disciplines Anticipated Discharge Needs: Physical Assist at Home, Supervision at Home Physical Assist at Home for: Transfers, Finances, Ambulation, Cleaning, Laundry, Meals, Medication Management, Stairs, Safety, Self Care, Shopping, Transportation Supervision at Home due to: Decreased safety awareness, Impaired cognition ASSESSMENT Response to Therapy Interventions: Cognitive Status Improvement, Good Participation in Activities, On-Track to Achieve Discharge Goals PRECAUTIONS Bed/Chair Alarm, Fall Risk, Lines/Tubes/Drains standard CURRENT HOSPITAL COURSE MRI: Chronic microvascular changes. A few punctate remote microhemorrhages in the supratentorial brain parenchyma Relevant Past Medical History: HTN, BPH, ANDREWS, metabolic encephalopathy, L inguinal hernia, GERD, aortic valve disorder, asthma HOME LIVING Patient Lives With: Spouse Assistance Available: 24-Hour Entry To Home: Stairs, Without Rail Number Of Stairs Into Home: 3 Number Of Stairs To Bed/Bath: 0 Tub/Shower Type: walk in shower Laundry: completes at baseline Equipment Owned: Cane PRIOR FUNCTIONAL LEVEL Within Functional Limits, Poor Historian, Unable to Assess, Unable to Report Pt reports independence with ADLS, spouse completes IADLs, spouse drives, does not use assistive device, reports recent fall. Questionable historian. Baseline Cognition: Forgetful SUBJECTIVE Patient supine in bed agreeable to OT COGNITION Orientation Deficits: Not oriented to Time, Not oriented to Situation Responsiveness: Alert, Awake Follows Commands: Cueing Needed Cueing to Follow Commands: Minimum Attention Deficits: Distractible Executive Function Deficits: Judgement, Insight to Deficits, Problem Solving, Safety Awareness THERAPY DIAGNOSIS Reduced mobility-other, Decreased activities of daily living (ADL), General symptoms and signs-other, Signs and Symptoms Involving Cognitive Functions and Awareness TREATMENT INTERVENTIONS Therapeutic Activity (18027), Self Senior Care Management (48005) Timed Code Treatment (minutes): 25 Skilled Treatment Time (minutes): 25 TRAINING AND EDUCATION PROVIDED Assistive Device Use, Bed Mobility, Benefits of In-Hospital Mobility, Discharge Planning, Functional Mobility Involving ADLs, Grooming Tasks, Lower Extremity Dressing, Role of Occupational Therapy, Safety/Judgment, Transfer - Bed to Chair, Transfer - Sit to Stand THERAPEUTIC SKILLS USED Activity Dosing, Assessment of Tolerance Including Vitals Response to Activity, Cues for Sequencing/Proper Technique for Activity, Cuing Tactile, Cuing Verbal, Physical Assist, Therapeutic Use of Self FUNCTIONAL STATUS Activities of Daily Living Assist Level Additional Information Feeding Independent Grooming Minimal Assistance, Additional Information ABle to wash hands and face with set up, Increased assistance anticipated standing at sink Bathing Upper Body Contact Guard Assistance, Additional Information per clinical judgement seated Bathing Lower Body Minimal Assistance, Additional Information per clinical judgement seated Dressing Upper Body Stand By Assistance Dressing Lower Body Minimal Assistance, Additional Information for safety when standing Toileting Minimal Assistance, Additional Information per clinical judgement for safety Mobility Assist Level Additional Information Bed Mobility Supine To Sit: Stand By Assistance Sit To Supine: Stand By Assistance Sit to Stand Contact Guard Assistance Stand to Sit Contact Guard Assistance Bed to Chair Toilet/Commode Shower Functional Mobility Minimal Assistance Functional Mobility Device: Wheeled Walker GOALS Patient will demonstrate progress to optimize self-care activities, cognitive and/or coping to maximize function upon discharge. Progress Toward Goals: Progressing as expected Rehab Potential: Good PLAN OT Frequency: 2 Times Per Week Treatment Interventions: E (more content not included)... Normal [facility] levETIRAcetam SerPl-mCncon 1 levETIRAcetam [Mass/Vol] 26.0 ug/mL Normal 12.0-46.0 [facility] Comment on above: Order Comment: Speci men Type: BLOOD SPECIMENOrdering Facility: [facility] Address: [address] [place] [address] Result Comment: This test is not suitable for patients receiving treatment with the drug brivaracetam (Briviact). The drug causes an interference that may lead to falsely elevated levetiracetam results. Reference ranges and high/low indicator flags are provided as general guidelines only. The treating physician must determine appropriate target levels/dosing based on the specific clinical situation. This test was developed, and its performance characteristics determined by the [facility] Department of Pathology and Laboratory Medicine. It has not been cleared or approved by the FDA. The [facility] Department of Pathology and Laboratory Medicine is regulated under CLIA as qualified to perform high-complexity testing. This test is used for clinical purposes. It should not be regarded as investigational or for research. Performed By: #### 3 0471-7 ####[facility] LABCLIA [id number] [address] [place] CBC panel Auto (Bld)on 03-03 Erythrocyte distribution width (RBC) [Ratio] 13.2 % Normal 11.5-15.0 [facility] Comment on above: Order Comment: Speci men Type: BLOOD SPECIMENOrdering Facility: [facility] Address: [address] [place] [address] Performed By: #### 5 5454-3 ####[facility]CLIA [id number] [address] [place]#### [address]-8 ####[facility] [id number] [address] Hematocrit (Bld) [Volume fraction] 40.9 % Normal 39.0-51.0 [facility] Comment on above: Order Comment: Ruperti monique Type: BLOOD SPECIMENOrdering Facility: [facility] - [place] Address: [address] [place] [address] Performed By: #### 5 5454-3 ####[facility] LABCLIA [id number] [address]#### 78520-7 ####[facility]ORYCLIA [id number] [address] [place] Hemoglobin (Bld) [Mass/Vol] 13.4 g/dL Normal 13.0-17.0 [facility] Comment on above: Order Comment: Ruperti men Type: BLOOD SPECIMENOrdering Facility: [facility] Address: [address] [place] [address] Performed By: #### 5 5454-3 ####[facility] LABCLIA [id number] [address] [place]#### [address]40-8 ####[facility]ATORYCLIA [id number] [address] MCH (RBC) [Entitic mass] 29.6 pg Normal 26.0-34.0 [facility] Comment on above: Order Comment: Speci men Type: BLOOD SPECIMENOrdering Facility: [facility] [place] Address: [address] [place] [address] Performed By: #### 5 5454-3 ####[facility] LABCLIA [id number] [address] [place]#### 67105-2 ####[facility]ORYCLIA [id number] [address] MCHC (RBC) [Mass/Vol] 32.8 g/dL Normal 30.5-36.0 [facility] Comment on above: Order Comment: Speci men Type: BLOOD SPECIMENOrdering Facility: [facility] [place] Address: [address] [place] [address] Performed By: #### 5 5454-3 ####[facility] LABCLIA [id number] [address] [place]#### 08504-4 ####[facility]ORYCLIA [id number] [address] MCV (RBC) [Entitic vol] 90.5 fL Normal 80.0-100.0 [facility] Comment on above: Order Comment: Speci men Type: BLOOD SPECIMENOrdering Facility: [facility] [place] Address: [address] [place] [address] Performed By: #### 5 5454-3 ####[facility] LABCLIA [id number] [address] [place]#### 67041-7 ####[facility]ATORYCLIA [id number] [place] [address] [place] Nucleated RBC (Bld) [#/Vol] 10*3/uL Normal <0.01 [facility] Comment on above: Order Comment: Speci men Type: BLOOD SPECIMENOrdering Facility: [facility] [place] Address: [address] [place] [address] Performed By: #### 5 5454-3 ####[facility] LABCLIA [id number] [place] [address] [place]#### 72130-3 ####[facility]ATORYCLIA [id number] [place] [address] [place] Platelet mean volume (Bld) [Entitic vol] 10.9 fL Normal 9.0-12.7 [facility] Comment on above: Order Comment: Speci men Type: BLOOD SPECIMENOrdering Facility: [facility] [place] Address: [address] [place] [address] Performed By: #### 5 5454-3 ####[facility] LABCLIA [id number] [place] [address] [place]#### 06211-9 ####[facility]ORYCLIA [id number] [address] [place] Platelets (Bld) [#/Vol] 236 10*3/uL Normal 150-400 [facility] Comment on above: Order Comment: Speci men Type: BLOOD SPECIMENOrdering Facility: [facility] [place] Address: [address] [place] [address] Performed By: #### 5 5454-3 ####[facility] LABCLIA [id number] [place] [address] [facility] [place]#### 75158-1 ####[facility]ATORYCLIA [id number] [place] [address] [place] RBC (Bld) [#/Vol] 4.52 10*6/uL Normal 4.20-6.00 [facility] Comment on above: Order Comment: Speci men Type: BLOOD SPECIMENOrdering Facility: [facility] [place] Address: [address] [place] [address] Performed By: #### 5 5454-3 ####[facility] LABCLIA [id number] [place] [address] [place]#### 44962-7 ####[facility]ORYCLIA [id number] [place] [address] [facility] [place] WBC (Bld) [#/Vol] 10.48 10*3/uL Normal 3.70-11.00 [facility] Comment on above: Order Comment: Speci men Type: BLOOD SPECIMENOrdering Facility: [facility] [place] Address: [address] [place] [address] Performed By: #### 5 5454-3 ####[facility] LABCLIA [id number] [place] [address] [place]#### 16323-1 ####[facility]ORYCLIA [id number] [address] [place] Comprehensive metabolic 2000 panelon 03-03-2024 Albumin [Mass/Vol] 3.4 g/dL Low 3.9-4.9 [facility] Comment on above: Order Comment: Speci men Type: BLOOD SPECIMENOrdering Facility: [facility] [place] Address: [address] [place] [address] Performed By: #### L IPNF, 83463-6 ####[facility]ORYCLIA [id number] [address] [place] ALP [Catalytic activity/Vol] 67 U/L Normal 38-113 [facility] Comment on above: Order Comment: Speci men Type: BLOOD SPECIMENOrdering Facility: [facility] [place] Address: [address] [place] [address] Performed By: #### L IPNF, 81762-1 ####[facility]ATORYCLIA [id number] [address] [place] ALT [Catalytic activity/Vol] 10 U/L Normal 10-54 [facility] Comment on above: Order Comment: Speci men Type: BLOOD SPECIMENOrdering Facility: [facility] [place] Address: [address] [place] [address] Performed By: #### L IPNF, 29908-5 ####[facility]ORATORYCLIA [id number] [place] [address] [place] Anion gap [Moles/Vol] 6 mmol/L Low 8-15 [facility] Comment on above: Order Comment: Speci men Type: BLOOD SPECIMENOrdering Facility: [facility] [place] Address: [address] [place] [address] Performed By: #### L IPNF, 63481-5 ####[facility]ATORYCLIA [id number] [address] AST [Catalytic activity/Vol] 15 U/L Normal 14-40 [facility] Comment on above: Order Comment: Speci men Type: BLOOD SPECIMENOrdering Facility: [facility] [place] Address: [address] [place] [address] Performed By: #### L IPNF, 73651-6 ####[facility]ATORYCLIA [id number] [address] [place] Bilirubin [Mass/Vol] 0.4 mg/dL Normal 0.2-1.3 [facility] Comment on above: Order Comment: Speci men Type: BLOOD SPECIMENOrdering Facility: [facility] [place] Address: [address] [place] [address] Performed By: #### L IPNF, ####[facility]ATORYCLIA [id number] [place] [address] [place] Calcium [Mass/Vol] 9.0 mg/dL Normal 8.5-10.2 [facility] Comment on above: Order Comment: Speci men Type: BLOOD SPECIMENOrdering Facility: [facility] [place] Address: [address] [place] [address] Performed By: #### L IPNF, ####[facility]ORATORYCLIA [id number] [place] [address] [place] Chloride [Moles/Vol] 108 mmol/L High 98-107 [facility] Comment on above: Order Comment: Jame amaya Type: BLOOD SPECIMENOrdering Facility: [facility] [place] Address: [address] [place] [address] Performed By: #### L IPNF, 44006-8 ####[facility]ATORYCLIA [id number] [address] [place] CO2 [Moles/Vol] 28 mmol/L Normal 22-30 [facility] Comment on above: Order Comment: Ruperti men Type: BLOOD SPECIMENOrdering Facility: [facility] [place] Address: [address] [place] [address] Performed By: #### L IPNF, 72259-2 ####[facility]ATORYCLIA [id number] [address] Creatinine [Mass/Vol] 1.03 mg/dL Normal 0.73-1.22 [facility] Comment on above: Order Comment: Jame men Type: BLOOD SPECIMENOrdering Facility: [facility] [place] Address: [address] [place] [address] Performed By: #### L IPNF, 20438-7 ####[facility]ATORYCLIA [id number] [address] Creatinine and Glomerular filtration rate.predicted panel (S/P/Bld) 70 mL/min/1.73m??? Normal >=60 [facility] Comment on above: Order Comment: Jame monique Type: BLOOD SPECIMENOrdering Facility: [facility] [place] Address: [address] [place] [address] Result Comment: Radha mated Glomerular Filtration Rate (eGFR) is calculated using the 2020 CKD-EPI creatinine equation. This equation utilizes serum creatinine, sex, and age as parameters. The creatinine assay has traceable calibration to isotope dilution-mass spectrometry. Refer to KDIGO guidelines for clinical interpretation. In patients with unstable renal function, e.g. those with acute kidney injury, the eGFR may not accurately reflect actual GFR. Performed By: #### L IPNF, 43035-3 ####[facility]ATORYCLIA [id number] [place] [id number] [place] Glucose [Mass/Vol] 98 mg/dL Normal 74-99 [facility] Comment on above: Order Comment: Jame amaya Type: BLOOD SPECIMENOrdering Facility: [facility] [place] Address: [address] [place], [place] [address] Result Comment: The [place] Diabetes Association (ADA) provides guidance for cutoff values for fasting glucose and random glucose. The ADA defines fasting as no caloric intake for at least 8 hours. Fasting plasma glucose results between 100 to 125 mg/dL indicate increased risk for diabetes (prediabetes). Fasting plasma glucose results greater than or equal to 126 mg/dL meet the criteria for diagnosis of diabetes. In the absence of unequivocal hyperglycemia, results should be confirmed by repeat testing. In a patient with classic symptoms of hyperglycemia or hyperglycemic crisis, random plasma glucose results greater than or equal to 200 mg/dL meet the criteria for diagnosis of diabetes. Reference: Standards of Medical Care in Diabetes 2016, [place] Diabetes Association. Diabetes Care. 2016.39(Suppl 1). Performed By: #### L IPJG, 68697-3 ####[facility]ORATORYCLIA [id number] [place] [address] [place] Potassium [Moles/Vol] 4.4 mmol/L Normal 3.7-5.1 [facility] Comment on above: Order Comment: Jame amaya Type: BLOOD SPECIMENOrdering Facility: [facility] [place] Address: [address] [place] [address] Performed By: #### L IPJG, 12882-3 ####[facility]ORATORYCLIA [id number] [place] [address] [place] Protein [Mass/Vol] 5.8 g/dL Low 6.3-8.0 [facility] Comment on above: Order Comment: Jame amaya Type: BLOOD SPECIMENOrdering Facility: [facility] [place] Address: [address] [place], [place] [address] Performed By: #### L IPJG, 84049-0 ####[facility]ORATORYCLIA [id number] [place] [address] [place] Sodium [Moles/Vol] 142 mmol/L Normal 136-144 [facility] Comment on above: Order Comment: Jame amaya Type: BLOOD SPECIMENOrdering Facility: [facility] [place] Address: [address] [place] [address] Performed By: #### L IPNF, 02944-2 ####[facility]ORATORYCLIA [id number] [address] [place] [facility] Urea nitrogen [Mass/Vol] 26 mg/dL High 9-24 [facility] Comment on above: Order Comment: Speci men Type: BLOOD SPECIMENOrdering Facility: [facility] [place] Address: [address] [place] [address] Performed By: #### L IPNF, 39073-3 ####[facility]ORATORYCLIA [id number] [address] [place] HbA1c (Bld)on 03-03-2024 Average glucose Estimated from glycated hemoglobin (Bld) [Mass/Vol] 100 mg/dL Normal [facility] Comment on above: Order Comment: Speci men Type: BLOOD SPECIMENOrdering Facility: [facility] [place] Address: [address] [place] [address] Result Comment: eAG: (Estimated average glucose) is a calculated value from HgbA1c and is hostess party sales representative of the average blood glucose level in the last 2-3 month period. Performed By: #### 5 5454-3 ####[facility] LABCLIA [id number] [address] [place]#### 86150-0 ####[facility]ORATORYCLIA [id number] [address] HbA1c (Bld) [Mass fraction] 5.1 % Normal 4.3-5.6 [facility] Comment on above: Order Comment: Speci men Type: BLOOD SPECIMENOrdering Facility: [facility] [place] Address: [address] [place] [address] Result Comment: [place] Diabetes Association guidelines indicate that patients with HgbA1c in the range 5.7-6.4% are at increased risk for development of diabetes, and intervention by lifestyle modification may be beneficial. HgbA1c greater or equal to 6.5% is considered diagnostic of diabetes. Performed By: #### 5 5454-3 ####[facility] LABCLIA [id number] [facility] [place] [address] [place]#### 94659-7 ####[facility]ORATORYCLIA [id number] [address] LIPID PANEL, NONFASTINGon Cholesterol [Mass/Vol] 166 mg/dL Normal <200 [facility] Comment on above: Order Comment: Speci men Type: BLOOD SPECIMENOrdering Facility: [facility] [place] Address: [address] [place] [address] Result Comment: <200 mg/dL, Desirable 200-239 mg/dL, Borderline high >239 mg/dL, High Performed By: #### L DEMETRIO, 78540-2 ####[facility]ATORYCLIA [id number] [address] HDL CHOLESTEROL, NF 48 mg/dL Normal >39 [facility] Comment on above: Order Comment: Ruperti men Type: BLOOD SPECIMENOrdering Facility: [facility] [place] Address: [address] [place] [address] Result Comment: 40-5 9 mg/dL, Acceptable >59 mg/dL, High: Negative risk factor for coronary heart disease <40 mg/dL, Low: Positive risk factor for coronary heart disease Performed By: #### L IPJG, 65758-4 ####[facility]ATORYCLIA [id number] [address] LDL CHOLESTEROL, NF 104 mg/dL High <100 [facility] Comment on above: Order Comment: Ruperti men Type: BLOOD SPECIMENOrdering Facility: [facility] [place] Address: [address] [place] [address] Result Comment: <100 mg/dL, Optimal 100-129 mg/dL, Near optimal/above optimal 130-159 mg/dL, Borderline high 160-189 mg/dL, High >189 mg/dL, Very high Secondary prevention optimal LDL Cholesterol levels are recommended to be < 70 mg/dL Performed By: #### L IPNF, 84869-6 ####[facility]ATORYCLIA [id number] [address] LDL/HDL RATIO, NF 2.17 mg/dL Normal <2.54 [facility] Comment on above: Order Comment: Jame amaya Type: BLOOD SPECIMENOrdering Facility: [facility] [place] Address: [address] [place] [address] Result Comment: Phyllis mcdonough: 1. National Cholesterol Education Program ATP III Guideline At-A-Glance Quick Desk Reference: National Heart, Lung, and Blood [place]. National Institutes of Health. 2001: NIH Publication No. 01-3305. 2. An International Atherosclerosis Society position paper: global recommendations for the management of dyslipidemia: executive summary, Atherosclerosis. 2014: 232(2):410-413. Performed By: #### L IPJG, 03303-7 ####[facility]ORATORYCLIA [id number] [address] NON HDL CHOL, NF 118 mg/dL Normal <130 [facility] Comment on above: Order Comment: Jame monique Type: BLOOD SPECIMENOrdering Facility: [facility] [place] Address: [address] [place] [address] Result Comment: <130 mg/dL, Optimal 130-159 mg/dL, Near optimal/above optimal 160-189 mg/dL, Borderline high 190-219 mg/dL, High >219 mg/dL, Very high Secondary prevention optimal non HDL Cholesterol levels are recommended to be <100 mg/dL Performed By: #### L IPNF, 69698-6 ####[facility]ORATORYCLIA [id number] [address] T CHOL/HDL RATIO NF 3.46 mg/dL Normal <5.10 [facility] Comment on above: Order Comment: Jame men Type: BLOOD SPECIMENOrdering Facility: [facility] [place] Address: [address] [place] [address] Performed By: #### L IPNF, 31792-8 ####[facility]ORATORYCLIA [id number] [address] TRIGLYCERIDES, NF 71 mg/dL Normal <150 [facility] Comment on above: Order Comment: Jame monique Type: BLOOD SPECIMENOrdering Facility: [facility] [place] Address: [address] [place] [address] Result Comment: <150 mg/dL, Normal 150-199 mg/dL, Borderline high 200-499 mg/dL, High >499 mg/dL, Very high Performed By: #### L IPNF, 55825-4 ####[facility]ATORYCLIA [id number] [address] VLDL CHOLESTEROL, NF 14 mg/dL Normal <30 [facility] Comment on above: Order Comment: Speci men Type: BLOOD SPECIMENOrdering Facility: [facility] [place] Address: [address] [place] [address] Performed By: #### L IPNF, 60391-9 ####[facility]ORATORYCLIA [id number] [address] CBC panel Auto (Bld)on 03-02 Erythrocyte distribution width (RBC) [Ratio] 13.1 % Normal 11.5-15.0 [facility] Comment on above: Order Comment: Speci men Type: BLOOD SPECIMENOrdering Facility: [facility] [place] Address: [address] [place] [address] Performed By: #### 5 8410-2 ####[facility]ORATORYCLIA [id number] [address] Hematocrit (Bld) [Volume fraction] 40.6 % Normal 39.0-51.0 [facility] Comment on above: Order Comment: Speci men Type: BLOOD SPECIMENOrdering Facility: [facility] [place] Address: [address] [place] [address] Performed By: #### 5 8410-2 ####[facility]ORATORYCLIA [id number] [address] Hemoglobin (Bld) [Mass/Vol] 13.4 g/dL Normal 13.0-17.0 [facility] Comment on above: Order Comment: Speci men Type: BLOOD SPECIMENOrdering Facility: [facility] [place] Address: [address] [place] [address] Performed By: #### 5 8410-2 ####[facility]ORATORYCLIA [id number] [address] MCH (RBC) [Entitic mass] 29.6 pg Normal 26.0-34.0 [facility] Comment on above: Order Comment: Speci men Type: BLOOD SPECIMENOrdering Facility: [facility] [place] Address: [address] [place] [address] Performed By: #### 5 8410-2 ####[facility] LABORATORYCLIA [id number] [place] [address] [place] MCHC (RBC) [Mass/Vol] 33.0 g/dL Normal 30.5-36.0 [facility] Comment on above: Order Comment: Speci men Type: BLOOD SPECIMENOrdering Facility: [facility] [place] Address: [address] [place] [address] Performed By: #### 5 8410-2 ####[facility]ORATORYCLIA [id number] [address] [place] MCV (RBC) [Entitic vol] 89.8 fL Normal 80.0-100.0 [facility] Comment on above: Order Comment: Speci men Type: BLOOD SPECIMENOrdering Facility: [facility] [place] Address: [address] [place] [address] Performed By: #### 5 8410-2 ####[facility] LABORATORYCLIA [id number] [place] [address] [place] Nucleated RBC (Bld) [#/Vol] 10*3/uL Normal <0.01 [facility] Comment on above: Order Comment: Speci men Type: BLOOD SPECIMENOrdering Facility: [facility] [place] Address: [address] [place] [address] Performed By: #### 5 8410-2 ####[facility]ORATORYCLIA [id number] [address] [place] Platelet mean volume (Bld) [Entitic vol] 11.1 fL Normal 9.0-12.7 [facility] Comment on above: Order Comment: Speci men Type: BLOOD SPECIMENOrdering Facility: [facility] [place] Address: [address] [place] [address] Performed By: #### 5 8410-2 ####[facility] LABORATORYCLIA [id number] [address] Platelets (Bld) [#/Vol] 169 10*3/uL Normal 150-400 [facility] Comment on above: Order Comment: Speci men Type: BLOOD SPECIMENOrdering Facility: [facility] [place] Address: [address] [place] [address] Performed By: #### 5 8410-2 ####[facility] LABORATORYCLIA [id number] [place] [address] [place] RBC (Bld) [#/Vol] 4.52 10*6/uL Normal 4.20-6.00 [facility] Comment on above: Order Comment: Speci men Type: BLOOD SPECIMENOrdering Facility: [facility] [place] Address: [address] [place] [address] Performed By: #### 5 8410-2 ####[facility] LABORATORYCLIA [id number] [address] [facility] WBC (Bld) [#/Vol] 9.77 10*3/uL Normal 3.70-11.00 [facility] Comment on above: Order Comment: Speci men Type: BLOOD SPECIMENOrdering Facility: [facility] [place] Address: [address] [place] [address] Performed By: #### 5 8410-2 ####[facility] LABORATORYCLIA [id number] [address] Comprehensive metabolic 2000 panelon 2024 Albumin [Mass/Vol] 3.4 g/dL Low 3.9-4.9 [facility] Comment on above: Order Comment: Speci men Type: BLOOD SPECIMENOrdering Facility: [facility] Address: [address] [place] [address] Performed By: #### 2 4323-8 ####[facility] LABORATORYCLIA [id number] [address] ALP [Catalytic activity/Vol] 65 U/L Normal 38-113 [facility] Comment on above: Order Comment: Speci men Type: BLOOD SPECIMENOrdering Facility: [facility] [place] Address: [address] [place] [address] Performed By: #### 2 4323-8 ####[facility] LABORATORYCLIA [id number] [address] ALT [Catalytic activity/Vol] 8 U/L Low 10-54 [facility] Comment on above: Order Comment: Speci men Type: BLOOD SPECIMENOrdering Facility: [facility] [place] Address: [address] [place] [address] Performed By: #### 2 4323-8 ####[facility] LABORATORYCLIA [id number] [place] [address] [facility] [place] Anion gap [Moles/Vol] 7 mmol/L Low 8-15 [facility] Comment on above: Order Comment: Speci men Type: BLOOD SPECIMENOrdering Facility: [facility] Address: [address] [place] [address] Performed By: #### 2 4323-8 ####[facility] LABORATORYCLIA [id number] [address] [place] AST [Catalytic activity/Vol] 13 U/L Low 14-40 [facility] Comment on above: Order Comment: Speci men Type: BLOOD SPECIMENOrdering Facility: [facility] Address: [address] [place] [address] Performed By: #### 2 4323-8 ####[facility] LABORATORYCLIA [id number] [place] [address] [place] Bilirubin [Mass/Vol] 0.5 mg/dL Normal 0.2-1.3 [facility] Comment on above: Order Comment: Speci men Type: BLOOD SPECIMENOrdering Facility: [facility] Address: [address] [place] [address] Performed By: #### 2 4323-8 ####[facility] LABORATORYCLIA [id number] [address] [place] Calcium [Mass/Vol] 8.7 mg/dL Normal 8.5-10.2 [facility] Comment on above: Order Comment: Speci men Type: BLOOD SPECIMENOrdering Facility: [facility] Address: [address] [place] [address] Performed By: #### 2 4323-8 ####[facility] LABORATORYCLIA [id number] [place] [address] [place] Chloride [Moles/Vol] 106 mmol/L Normal 98-107 [facility] Comment on above: Order Comment: Jame amaya Type: BLOOD SPECIMENOrdering Facility: [facility] Address: [address] [place] [address] Performed By: #### 2 4323-8 ####[facility] LABORATORYCLIA [id number] [place] [address] [place] CO2 [Moles/Vol] 28 mmol/L Normal 22-30 [facility] Comment on above: Order Comment: Ruperti men Type: BLOOD SPECIMENOrdering Facility: [facility] Address: [address] [place] [address] Performed By: #### 2 4323-8 ####[facility] LABORATORYCLIA [id number] [address] [place] Creatinine [Mass/Vol] 1.02 mg/dL Normal 0.73-1.22 [facility] Comment on above: Order Comment: Speci men Type: BLOOD SPECIMENOrdering Facility: [facility] Address: [address] [place] [address] Performed By: #### 2 4323-8 ####[facility] LABORATORYCLIA [id number] [address] Creatinine and Glomerular filtration rate.predicted panel (S/P/Bld) 71 mL/min/1.73m??? Normal >=60 [facility] Comment on above: Order Comment: Jame amaya Type: BLOOD SPECIMENOrdering Facility: [facility] Address: [address] [place] [address] Result Comment: Radha mated Glomerular Filtration Rate (eGFR) is calculated using the 2020 CKD-EPI creatinine equation. This equation utilizes serum creatinine, sex, and age as parameters. The creatinine assay has traceable calibration to isotope dilution-mass spectrometry. Refer to KDIGO guidelines for clinical interpretation. In patients with unstable renal function, e.g. those with acute kidney injury, the eGFR may not accurately reflect actual GFR. Performed By: #### 2 4323-8 ####[facility] LABORATORYCLIA [id number] [place] [address] [place] Glucose [Mass/Vol] 94 mg/dL Normal 74-99 [facility] Comment on above: Order Comment: Jame amaya Type: BLOOD SPECIMENOrdering Facility: [facility] Address: [address] [place] [address] Result Comment: The [place] Diabetes Association (ADA) provides guidance for cutoff values for fasting glucose and random glucose. The ADA defines fasting as no caloric intake for at least 8 hours. Fasting plasma glucose results between 100 to 125 mg/dL indicate increased risk for diabetes (prediabetes). Fasting plasma glucose results greater than or equal to 126 mg/dL meet the criteria for diagnosis of diabetes. In the absence of unequivocal hyperglycemia, results should be confirmed by repeat testing. In a patient with classic symptoms of hyperglycemia or hyperglycemic crisis, random plasma glucose results greater than or equal to 200 mg/dL meet the criteria for diagnosis of diabetes. Reference: Standards of Medical Care in Diabetes 2016, [place] Diabetes Association. Diabetes Care. 2016.39(Suppl 1). Performed By: #### 2 4323-8 ####[facility] LABORATORYCLIA [id number] [place] [address] [place] Potassium [Moles/Vol] 4.2 mmol/L Normal 3.7-5.1 [facility] Comment on above: Order Comment: Jame amaya Type: BLOOD SPECIMENOrdering Facility: [facility] Address: [address] [place] [address] Performed By: #### 2 4323-8 ####[facility] LABORATORYCLIA [id number] [place] [address] [place] Protein [Mass/Vol] 5.8 g/dL Low 6.3-8.0 [facility] Comment on above: Order Comment: Jame amaya Type: BLOOD SPECIMENOrdering Facility: [facility] Address: [address] [place] [address] Performed By: #### 2 4323-8 ####[facility] LABORATORYCLIA [id number] [place] [address] [place] Sodium [Moles/Vol] 141 mmol/L Normal 136-144 [facility] Comment on above: Order Comment: Speci men Type: BLOOD SPECIMENOrdering Facility: [facility] Address: [address] [id number] Performed By: #### 2 4323-8 ####ES[facility] LABORATORYCLIA [id number] [place] [id number] [facility] Urea nitrogen [Mass/Vol] 25 mg/dL High 9-24 [facility] Comment on above: Order Comment: Rupertbrenna amaya Type: BLOOD SPECIMENOrdering Facility: [facility] Address: [address] [id number] Performed By: #### 2 4323-8 ####[facility] LABORATORYCLIA [id number] [address] [facility] THERAPY NTon 2024 THERAPY NT HNO ID: [id number] Author: VALERY PLAZA CCC-LENS GAUGER Service: Speech/Swallow Author Type: Speech Language Pathologist Type: Therapy (PT/OT/Speech/Resp) Filed: 2024 10:35 Note Text: -- Summary: swallow eval -- Speech Therapy Clinical Swallow Evaluation SERVICE DATE: 2024 SERVICE TIME: 1003 to 7818 ROOM: [id number] IMPRESSION: Swallow Deficits Identified / Suspected: Oral dysphagia Diet Recommendations: Regular Consistency, Thin Liquids IDDSI Level 0 Swallowing Precautions Recommendations: Alternate bites and sips, Check oral cavity for remaining food, Small Bite/Sip, Rigid Oral Hygiene Nursing Recommendations: Routine Rigid Oral Hygiene, Reinforce use of swallowing strategies Recommended Discharge Disposition: Continued Skilled Speech Therapy (for a brief duration) Current Hospital Course: 89 year old admitted with UTI, mental status change, delirium Reason for Speech Therapy Consult: swallow evaluation, questionable right facial droop Relevant Past Medical History: congenital tracheoesophageal fistula, HTN, GERD, esophageal stenosis Response to Therapy Interventions: Good Participation in activities, Increased knowledge and Awareness to Deficits Subjective: 'I am feeling great now' Current Status Oral Hygiene: Clear, dry oral cavity Dentition: Dentures-Full Current Feeding Method: Oral Current Diet Textures: Regular Consistency, Thin Liquids IDDSI Level 0 Current Level Of Communication: Verbal Oral Motor Exam: Within Functional Limits Except Facial Symmetry Impaired: Right Labial Assessment: Poor labial seal Labial ROM Impaired: Right Labial Strength Impaired: Right Swallow Position Of Patient During Assessment: Upright In Bed Consistencies Presented: Thin Liquids IDDSI Level 0, Pureed IDDSI Level 4, Soft and Bite-Sized IDDSI Level 6, Solid Response to Consistencies Presented: -Consumes x2 large pills with water without difficulty at start of session; -agreeable to trials of puree, bite sized soft and regular, as well as thin liquids via cup and straws; -cough post Katlyn protocol, no further coughing noted; -mild anterior loss from right side of oral cavity with liquids via consecutive cup sups, large hospital straw-much reduced with small straw use with single sips; -minimal residuals on lingual base cleared via liquid wash with cues and independently; -pt denies difficulty with swallowing; -states 'sticking' earlier but not anymore Compensatory Strategies Utilized During Assessment: Alternate bites and sips, 1:1 Supervision, Feed / Eat at a slow rate, Self-monitoring, Check oral cavity for remaining food Clinical Swallow Katlyn Swallow Protocol: Fail Fail: Coughing episodes Oral Pharyngeal Swallow Assessment: Within Functional Limits Except Preparatory / Oral Phase: Within Functional Limits Except Bolus Awareness: Impaired Oral Containment: Mildly Impaired Mastication: Suspect impairment Bolus Manipulation: Suspect impairment A-P Transit: Suspect impairment Oral Residue: Mildly Impaired Pharyngeal Phase: Within Functional Limits Except Reflexive Throat Clear and Cough after Swallowing: Yes, Post-Swallow (Katlyn protocol only, no further coughing noted) Multiple Swallows: No Patient /Caregiver Goals: Go to Rehab Goals for Plan of Care: Goals: SWALLOWING: Patient / Caregiver will demonstrate knowledge of taught compensatory strategies and dietary consistency recommendations to optimize functional swallow function without overt clinical signs and symptoms of aspiration or dysphagia Speech Rehab Potential: Good Patient will be discontinued from speech therapy when no further skilled needs are identified in this setting. PLAN: ST Frequency: 2 Times Per Week Treatment Interventions: Dysphagia Management Plan for next visit: Swallowing Strategies, Dysphagia Management Plan of Care Developed with: Patient, Nurse TREATMENT INTERVENTIONS: Therapy Diagnosis: Dysphagia, unspecified Interventions Provided: Clinical Swallow Evaluation (71482) $ Clinical Swallow Evaluation (51728) Billed Units: 1 unit Training and Education Provided in: Results and Recommendations of Session, Swallowing Strategies, Dietary Consistencies The following therapeutic skills were used:: Education on role of discipline / importance of activity, Verbal cuing, Instruction in self-monitoring / self-assessment Skilled Treatment Time (minutes): 21 Home Environment Patient Lives With: Spouse Prior Swallowing Function/Diet Textures: Regular Consistency, Thin Liquids IDDSI Level 0 Please see discipline specific clinical documentation flowsheet for complete details for this therapy evaluation/treatment. SIGNATURE: Valery Plaza CCC-LENS GAUGER PATIENT NAME: Ayesha Jacobsen DATE: (more content not included)... [facility] 03-01-2024 ALLIED [facility] HNO ID: [id number] Author: IRENE RICCI RT(R) Service: Radiology Author Type: Technologist Type: Allied Health Filed: 03/01/2024 09:32 Note Text: Radiology Service Progress Note DATE OF SERVICE: March 01, 2024 TIME: 9:32 AM PATIENT IDENTITY VERIFICATION COMPLETED USING TWO (2) STANDARD IDENTIFIERS: Name and Date of confirmed by patient verbally and Name and Date of confirmed by identification band. FALL SCREENING: Has the patient had 2 falls in the last year or 1 fall with injury or currently using an Ambulatory Assistive Device (Walker, Cane, Wheelchair, Crutches, etc.)? Inpatient: Screened on floor PATIENT GENDER DATA: Male PATIENT RELEVANT IMPLANT DATA REVIEWED: Yes PATIENT PRESENTS WITH AN IMPLANTABLE OR ATTACHED CLERK: No ALLERGIES: Reviewed and unchanged CONTRAST ALLERGY: NO. EXAM: MRI - CONTRAST TYPE: GROUP II PERIPHERAL IV DATA: Inpatient - refer to LDA documentation RADIOLOGY DEPARTMENT: MR; Exam(s) Completed: Head: Routine Brain Protocol by Dr. Gavin SIGNATURE: ART Conway PATIENT NAME: Ayesha Jacobsen DATE: March 01, 2024 TIME: 9:32 AM Normal [facility] CASE MANAGEMon 03-01-2024 CASE MANAGEM HNO ID: [id number] Author: MONIQUE VAZQUEZ LSW Service: ASSESSMENT Author Type: Director Of People Type: Care Mgt Progress Note Filed: 03/01/2024 15:01 Note Text: CARE MANAGEMENT PROGRESS NOTE SERVICE DATE: 03/01/2024 SERVICE TIME: 2:59 PM LOS: 4 days Needs Prior to Discharge: To Be Determined;Accepting Facility;Bed Availability;OT/PT Evaluation;Precertificatio n [place] of Choice Given: Yes (Pt. selected 1). [facility] 2). [facility]) Level of Care Discussed: Nursing Home Facility SW met w/pt. And spouse bedside along w/bedside nurse. Pt. Has discharge orders. Pt. Maintains he wants to discharge home however pts. expresses concerns that pt. May fall again at home. Pt. And spouse discussed SNF-v-home w/no needs. Pt. And now agreeable to SNF. Choices are 1). [facility] 2). [facility]. SW sent referrals and will follow for responses. Pt. Will need a pre-cert prior to discharge. Dr. Perez updated on the above. SIGNATURE: Monique Vazquez [employer] [place] PATIENT NAME: Ayesha Jacobsen DATE: March 01, 2024 TIME: 2:59 PM PAGER/CONTACT #: Normal [facility] CBC panel Auto (Bld)on 03-01 Erythrocyte distribution width (RBC) [Ratio] 13.2 % Normal 11.5-15.0 [facility] Comment on above: Order Comment: Jame amaya Type: BLOOD SPECIMENOrdering Facility: [facility] Address: [address] [place] [address] Performed By: #### 5 8410-2 ####[facility] LABORATORYCLIA [id number] [place] [id number] [place] Hematocrit (Bld) [Volume fraction] 40.0 % Normal 39.0-51.0 [facility] Comment on above: Order Comment: Jame amaya Type: BLOOD SPECIMENOrdering Facility: [facility] Address: [address] [place] [id number] Performed By: #### 5 8410-2 ####[facility] LABORATORYCLIA [id number] [address] Hemoglobin (Bld) [Mass/Vol] 13.4 g/dL Normal 13.0-17.0 [facility] Comment on above: Order Comment: Speci men Type: BLOOD SPECIMENOrdering Facility: [facility] Address: [address] [place] [address] Performed By: #### 5 8410-2 ####[facility] LABORATORYCLIA [id number] [address] MCH (RBC) [Entitic mass] 30.1 pg Normal 26.0-34.0 [facility] Comment on above: Order Comment: Speci men Type: BLOOD SPECIMENOrdering Facility: [facility] Address: [address] [place] [address] Performed By: #### 5 8410-2 ####[facility] LABORATORYCLIA [id number] [address] MCHC (RBC) [Mass/Vol] 33.5 g/dL Normal 30.5-36.0 [facility] Comment on above: Order Comment: Speci men Type: BLOOD SPECIMENOrdering Facility: [facility] Address: [address] [place] [address] Performed By: #### 5 8410-2 ####[facility] LABORATORYCLIA [id number] [address] MCV (RBC) [Entitic vol] 89.9 fL Normal 80.0-100.0 [facility] Comment on above: Order Comment: Speci men Type: BLOOD SPECIMENOrdering Facility: [facility] Address: [address] [place] [address] Performed By: #### 5 8410-2 ####[facility] LABORATORYCLIA [id number] [address] Nucleated RBC (Bld) [#/Vol] 10*3/uL Normal <0.01 [facility] Comment on above: Order Comment: Speci men Type: BLOOD SPECIMENOrdering Facility: [facility] Address: [address] [place] [address] Performed By: #### 5 8410-2 ####[facility] LABORATORYCLIA [id number] [place] [id number] [place] Platelet mean volume (Bld) [Entitic vol] 11.8 fL Normal 9.0-12.7 [facility] Comment on above: Order Comment: Speci men Type: BLOOD SPECIMENOrdering Facility: [facility] Address: [address] [place], [place] [address] [address] Performed By: #### 5 8410-2 ####[facility] LABORATORYCLIA [id number] [address] [place] Platelets (Bld) [#/Vol] 164 10*3/uL Normal 150-400 [facility] Comment on above: Order Comment: Speci men Type: BLOOD SPECIMENOrdering Facility: [facility] Address: [address] [place] [address] Performed By: #### 5 8410-2 ####[facility] LABORATORYCLIA [id number] [address] [place] RBC (Bld) [#/Vol] 4.45 10*6/uL Normal 4.20-6.00 [facility] Comment on above: Order Comment: Speci men Type: BLOOD SPECIMENOrdering Facility: [facility] Address: [address] [place] [address] Performed By: #### 5 8410-2 ####[facility] LABORATORYCLIA [id number] [place] [id number] [place] WBC (Bld) [#/Vol] 10.07 10*3/uL Normal 3.70-11.00 [facility] Comment on above: Order Comment: Speci men Type: BLOOD SPECIMENOrdering Facility: [facility] Address: [address] [place] [address] [place] [address] Performed By: #### 5 8410-2 ####[facility] LABORATORYCLIA [id number] [place] [id number] [facility] [place] Comprehensive metabolic 2000 panelon 03-01-2024 Albumin [Mass/Vol] 3.4 g/dL Low 3.9-4.9 [facility] Comment on above: Order Comment: Speci men Type: BLOOD SPECIMENOrdering Facility: [facility] Address: [address] [place] [address] Performed By: #### 2 4323-8 ####[facility] LABORATORYCLIA [id number] [address] [place] ALP [Catalytic activity/Vol] 64 U/L Normal 38-113 [facility] Comment on above: Order Comment: Speci men Type: BLOOD SPECIMENOrdering Facility: [facility] Address: [address] [place] [address] Performed By: #### 2 4323-8 ####[facility] LABORATORYCLIA [id number] [address] ALT [Catalytic activity/Vol] 10 U/L Normal 10-54 [facility] Comment on above: Order Comment: Speci men Type: BLOOD SPECIMENOrdering Facility: [facility] Address: [address] [place] [address] Performed By: #### 2 4323-8 ####[facility] LABORATORYCLIA [id number] [place] [address] [place] Anion gap [Moles/Vol] 12 mmol/L Normal 8-15 [facility] Comment on above: Order Comment: Speci men Type: BLOOD SPECIMENOrdering Facility: [facility] Address: [address] [place] [address] Performed By: #### 2 4323-8 ####[facility] LABORATORYCLIA [id number] [address] AST [Catalytic activity/Vol] 23 U/L Normal 14-40 [facility] Comment on above: Order Comment: Speci men Type: BLOOD SPECIMENOrdering Facility: [facility] Address: [address] [place] [address] Performed By: #### 2 4323-8 ####[facility] LABORATORYCLIA [id number] [place] [address] [place] Bilirubin [Mass/Vol] 0.6 mg/dL Normal 0.2-1.3 [facility] Comment on above: Order Comment: Speci men Type: BLOOD SPECIMENOrdering Facility: [facility] Address: [address] [place] [address] Performed By: #### 2 4323-8 ####[facility] LABORATORYCLIA [id number] [place] [address] [place] Calcium [Mass/Vol] 9.1 mg/dL Normal 8.5-10.2 [facility] Comment on above: Order Comment: Speci men Type: BLOOD SPECIMENOrdering Facility: [facility] Address: [address] [place] [address] Performed By: #### 2 4323-8 ####[facility] LABORATORYCLIA [id number] [place] [address] [place] Chloride [Moles/Vol] 106 mmol/L Normal 98-107 [facility] Comment on above: Order Comment: Speci men Type: BLOOD SPECIMENOrdering Facility: [facility] Address: [address] [place] [address] Performed By: #### 2 4323-8 ####[facility] LABORATORYCLIA [id number] [place] [address] [place] CO2 [Moles/Vol] 25 mmol/L Normal 22-30 [facility] Comment on above: Order Comment: Speci men Type: BLOOD SPECIMENOrdering Facility: [facility] Address: [address] [place] [address] Performed By: #### 2 4323-8 ####[facility] LABORATORYCLIA [id number] [place] [address] [place] Creatinine [Mass/Vol] 1.05 mg/dL Normal 0.73-1.22 [facility] Comment on above: Order Comment: Speci men Type: BLOOD SPECIMENOrdering Facility: [facility] Address: [address] [place] [address] Performed By: #### 2 4323-8 ####[facility] LABORATORYCLIA [id number] [place] [address] [place] Creatinine and Glomerular filtration rate.predicted panel (S/P/Bld) 69 mL/min/1.73m??? Normal >=60 [facility] Comment on above: Order Comment: Jame amaya Type: BLOOD SPECIMENOrdering Facility: [facility] Address: [address] [place] [address] Result Comment: Radha mated Glomerular Filtration Rate (eGFR) is calculated using the 2020 CKD-EPI creatinine equation. This equation utilizes serum creatinine, sex, and age as parameters. The creatinine assay has traceable calibration to isotope dilution-mass spectrometry. Refer to KDIGO guidelines for clinical interpretation. In patients with unstable renal function, e.g. those with acute kidney injury, the eGFR may not accurately reflect actual GFR. Performed By: #### 2 4323-8 ####[facility]ORATORYCLIA [id number] [place] [address] [place] Glucose [Mass/Vol] 87 mg/dL Normal 74-99 [facility] Comment on above: Order Comment: Jame amaya Type: BLOOD SPECIMENOrdering Facility: [facility] Address: [address] [place] [address] Result Comment: The [place] Diabetes Association (ADA) provides guidance for cutoff values for fasting glucose and random glucose. The ADA defines fasting as no caloric intake for at least 8 hours. Fasting plasma glucose results between 100 to 125 mg/dL indicate increased risk for diabetes (prediabetes). Fasting plasma glucose results greater than or equal to 126 mg/dL meet the criteria for diagnosis of diabetes. In the absence of unequivocal hyperglycemia, results should be confirmed by repeat testing. In a patient with classic symptoms of hyperglycemia or hyperglycemic crisis, random plasma glucose results greater than or equal to 200 mg/dL meet the criteria for diagnosis of diabetes. Reference: Standards of Medical Care in Diabetes 2016, [place] Diabetes Association. Diabetes Care. 2016.39(Suppl 1). Performed By: #### 2 4323-8 ####[facility] LABORATORYCLIA [id number] [place] [address] [place] Potassium [Moles/Vol] 4.1 mmol/L Normal 3.7-5.1 [facility] Comment on above: Order Comment: Jame amaya Type: BLOOD SPECIMENOrdering Facility: [facility] Address: [address] [id number] Performed By: #### 2 4323-8 ####[facility] LABORATORYCLIA [id number] [address] Protein [Mass/Vol] 6.0 g/dL Low 6.3-8.0 [facility] Comment on above: Order Comment: Speci men Type: BLOOD SPECIMENOrdering Facility: [facility] Address: [address] [place] [address] Performed By: #### 2 4323-8 ####[facility] LABORATORYCLIA [id number] [address] Sodium [Moles/Vol] 143 mmol/L Normal 136-144 [facility] Comment on above: Order Comment: Speci men Type: BLOOD SPECIMENOrdering Facility: [facility] Address: [address] [place] [address] Performed By: #### 2 4323-8 ####[facility] LABORATORYCLIA [id number] [address] Urea nitrogen [Mass/Vol] 26 mg/dL High 9-24 [facility] Comment on above: Order Comment: Speci men Type: BLOOD SPECIMENOrdering Facility: [facility] Address: [address] [place] [address] Performed By: #### 2 4323-8 ####[facility] LABORATORYCLIA [id number] [address] MRI BRAIN WO/W IVCONon 03-01 MRI BRAIN WO/W IVCON * * *Final Report* * * DATE OF EXAM: Mar 01 2024 9:46AM [facility] 0295 - MRI BRAIN WO/W IVCON / PROCEDURE REASON: Meningitis/CERTIFIED ADDICTION COUNSELOR infection suspected * * * * Physician Interpretation * * * * EXAMINATION: MRI BRAIN WO/W IVCON CLINICAL HISTORY: Meningitis/CERTIFIED ADDICTION COUNSELOR infection suspected TECHNIQUE: Abbreviated MRI brain protocol without and with contrast, follow up to prior recent unenhanced examination. Included are axial diffusion, axial FLAIR, precontrast coronal T1, and postcontrast coronal T1 and 3-D T1 axial gradient volume acquisition. MQ: [id number] Contrast: 14 mL Dotarem IV COMPARISON: Brain MRI 02/27/2024 and 02/23/2024. Brain CT 02/22/2024.. RESULT: No acute infarct. Within constraints of the acquisition, no acute intracranial hemorrhage, extra-axial collection, midline shift, or significant mass effect. No pathologic brain parenchymal or leptomeningeal enhancement. Moderate generalized volume loss, with concordant stable size of the ventricular system. Patchy and confluent T2/FLAIR hyperintense signal alteration in the supratentorial white matter, nonspecific, but likely advanced chronic microvascular ischemic changes. Small chronic lacunar infarcts in the bilateral centrum semiovale, left thalamus. Tiny chronic cerebellar infarcts better seen on prior brain MRI. Small left maxillary sinus retention cysts, right sphenoid retention cyst, and scattered mild paranasal sinus mucosal thickening. Trace right mastoid fluid. Visualized extra cranial soft tissues grossly unremarkable. IMPRESSION: No acute intracranial abnormality. No pathologic enhancement. Chronic changes as detailed. Machine Bobbin Winder: PSCB Transcribe Date/Time: Mar 01 2024 10:03A Dictated by : SARAHY GAVIN MD This examination was interpreted and the report reviewed and electronically signed by: SARAHY GAVIN MD on Mar 01 2024 10:10AM EST [id number] [facility] THERAPY NTon 03-01-2024 THERAPY NT HNO ID: [id number] Author: RAVINDRA HANSEN CCC-LENS GAUGER Service: Speech/Swallow Author Type: Speech Language Pathologist Type: Therapy (PT/OT/Speech/Resp) Filed: 03/01/2024 13:30 Note Text: -- Summary: LENS GAUGER missed -- [facility] SPEECH THERAPY MISSED VISIT NOTE SERVICE DATE: 03/01/2024 SERVICE TIME: 9:52 am Attempted patient therapy visit, but was unable for the following reason(s): -Not available, MRI --Will re-attempt pending patient availability and as schedule permits -1:10 pm Attempt x2, patient not available (ADL care) SIGNATURE: Ravindra Hansen [facility]-LENS GAUGER PATIENT NAME: Ayesha Jacobsen DATE: March 01, 2024 TIME: 9:52 AM [facility] CASE MANAGEMon 02-29-2024 CASE MANAGEM HNO ID: [id number] Author: IZA LOWE LISW Service: ? Author Type: Director Of People Type: Care Mgt Progress Note Filed: 02/29/2024 16:18 Note Text: CARE MANAGEMENT PROGRESS NOTE SERVICE DATE: 02/29/2024 SERVICE TIME: 4:14 PM LOS: 3 days Needs Prior to Discharge: To Be Determined;Accepting Facility;Bed Availability;Insurance Authorization;Home Care Order;Facility or Agency Choices;Discharge Transportation EMR reviewed. Neurology signed off, pt at baseline. Urology consult pending. PT and OT evaluations completed, SNF recommended. SW met with pt at bedside to discuss PT/OT recommendations and options for rehab at discharge. Pt not willing to consider SNF at this time, states maybe when asked to consider skilled home health care. SW/CM will continue to follow, will approach SNF vs HHC again with pt as able. Would need insurance pre-cert for SNF. SIGNATURE: ALDEN Hein PATIENT NAME: Ayesha Jacobsen DATE: February 29, 2024 TIME: 4:14 PM PAGER/CONTACT #: [phone] [facility] THERAPY NTon 02-29-2024 THERAPY NT HNO ID: [id number] Author: NATALY KRUSE OTR/Desiree Service: Occupational Therapy Author Type: Occupational Therapist Type: Therapy (PT/OT/Speech/Resp) Filed: 02/29/2024 13:18 Note Text: -- Summary: OT evaluation -- Occupational Therapy Evaluation Summary SERVICE DATE: 02/29/2024 SERVICE TIME: 1145 to 1232 ROOM: [id number] OT 6 Clicks Score: 20 DISCHARGE RECOMMENDATIONS Subacute/SNF Recommended Discharge Disposition Comments: SHORT TERM, for optimal patient benefit due to recent illness and falls. Recommended Discharge Disposition Due to: Functional deficits requiring ongoing therapy service prior to discharge home., ADL impairment, Anticipated community discharge, Cognitive deficits new/worsened, Requires multiple therapy disciplines Anticipated Discharge Needs: Family Training, Physical Assist at Home, Supervision at Home Physical Assist at Home for: Transfers, Finances, Ambulation, Cleaning, Laundry, Medication Management, Meals, Stairs, Safety, Shopping, Transportation, Self Care Supervision at Home due to: Decreased safety awareness, Impaired cognition ASSESSMENT Response to Therapy Interventions: Cognitive Deficits, Good Participation in Activities, Improved Tolerance for Activity, Progression of Disease Process, Requires Additional Time to Complete Activities Pt willing to participate in all therapy tasks. Patient limited by intermittent forgetfulness and difficulty with short term and retirement memory. Decreased dynamic standing balance noted requiring CGA for functional mobility. No loss of balance during session. PRECAUTIONS Fall Risk, Sitter, Lines/Tubes/Drains, Impulsive with Activity, Bed/Chair Alarm standard CURRENT HOSPITAL COURSE MRI: Chronic microvascular changes. A few punctate remote microhemorrhages in the supratentorial brain parenchyma Relevant Past Medical History: HTN, BPH, ANDREWS, metabolic encephalopathy, L inguinal hernia, GERD, aortic valve disorder, asthma HOME LIVING Patient Lives With: Spouse Assistance Available: 24-Hour Entry To Home: Stairs, Without Rail Number Of Stairs Into Home: 3 Number Of Stairs To Bed/Bath: 0 Tub/Shower Type: walk in shower Laundry: completes at baseline Equipment Owned: Cane PRIOR FUNCTIONAL LEVEL Within Functional Limits, Poor Historian, Unable to Assess, Unable to Report Pt reports independence with ADLS, spouse completes IADLs, spouse drives, does not use assistive device, reports recent fall. Questionable historian. Baseline Cognition: Forgetful SUBJECTIVE I fell down the other day, and I didn't do too well COGNITION Orientation Deficits: Not oriented to Time, Not oriented to Situation Responsiveness: Alert, Awake Follows Commands: 1-step Commands THERAPY DIAGNOSIS Decreased activities of daily living (ADL) TREATMENT INTERVENTIONS Evaluation, Therapeutic Activity (06819), Self Senior Care Management (87553) Timed Code Treatment (minutes): 24 Skilled Treatment Time (minutes): 42 TRAINING AND EDUCATION PROVIDED Assistive Device Use, Bed Mobility, Benefits of In-Hospital Mobility, Command Following, Delirium Reduction Techniques, Discharge Planning, Disease Specific Education, Functional Mobility Involving ADLs, Grooming Tasks, Insight into Deficits, Orientation, Role of Occupational Therapy, Standing Balance to Improve [place] with ADLs/Self-Care, Transfer - Sit to Stand THERAPEUTIC SKILLS USED Assessment of Tolerance Including Vitals Response to Activity, Cues for Sequencing/Proper Technique for Activity, Cuing Tactile, Cuing Verbal, Cuing Visual, Family Training, Physical Assist, Therapeutic Use of Self FUNCTIONAL STATUS Activities of Daily Living Assist Level Additional Information Feeding Modified Independent Grooming Contact Guard Assistance Bathing Upper Body Stand By Assistance Bathing Lower Body Contact Guard Assistance Dressing Upper Body Stand By Assistance Dressing Lower Body Contact Guard Assistance Toileting Contact Guard Assistance Mobility Assist Level Additional Information Bed Mobility Supine To Sit: Stand By Assistance Sit To Supine: Stand By Assistance Sit to Stand Contact Guard Assistance Stand to Sit Contact Guard Assistance Bed to Chair Toilet/Commode Shower Functional Mobility Contact Guard Assistance Functional Mobility Device: Wheeled Walker GOALS Patient will demonstrate progress to optimize self-care activities, cognitive and/or coping to maximize function upon discharge. Progress Toward Goals: Progressing as expected Rehab Potential: Good PLAN OT Frequency: 2 Times Per Week Treatment Interventions: Education, Self Care/Home Management, Functional Mobility Training Plan for Next Visit: Bathing Training, Cognition Intervention, Dressing Trainin (more content not included)... Normal [facility] THERAPY NT HNO ID: [id number] Author: ROGER HARPER, PT Service: Physical Therapy Author Type: Physical Therapist Type: Therapy (PT/OT/Speech/Resp) Filed: 02/29/2024 11:57 Note Text: -- Summary: PT treat -- Physical Therapy Treatment Summary SERVICE DATE: 02/29/2024 SERVICE TIME: 1046 to 1126 ROOM: [id number]- PT 6 Clicks Score: 20 DISCHARGE RECOMMENDATIONS Subacute/SNF Recommended Discharge Disposition Comments: Pt is currently performing functional mobility below PLOF and requires continued skilled PT to reduce risk of falls and rehospitalization. Recommended Discharge Disposition Due to: Functional deficits requiring ongoing therapy service prior to discharge home., Anticipated community discharge, Complex equipment needs, Coordination deficits, Ataxia, Balance deficits, Functional status decline, Motor planning deficits, Requires multiple therapy disciplines Recommended Discharge Equipment: No equipment needs anticipated ASSESSMENT Pt with balance deficits, cognitive and safety deficits which is affecting performance of functional activity. Pt is AANDO x 3, requires frequent repetition of cues. is a high falls risk PRECAUTIONS Fall Risk, Sitter, Lines/Tubes/Drains, Impulsive with Activity, Bed/Chair Alarm standard CURRENT HOSPITAL COURSE MRI: Chronic microvascular changes. A few punctate remote microhemorrhages in the supratentorial brain parenchyma Relevant Past Medical History: HTN, BPH, ANDREWS, metabolic encephalopathy, L inguinal hernia, GERD, aortic valve disorder, asthma HOME LIVING Patient Lives With: Spouse Assistance Available: (spouse, daughter also in the area) Entry To Home: Stairs, Without Rail Number Of Stairs To Bed/Bath: (pt with difficulty recalling, previous medical record stating no stairs to bed/bath) Tub/Shower Type: walk in shower Laundry: completes at baseline Equipment Owned: Cane PRIOR FUNCTIONAL LEVEL Within Functional Limits, Poor Historian, Unable to Assess, Unable to Report Pt reports previously independent with mobility, pt reports I can drive, however my is doing the driving now, pt unable to recall entry to home and home set-up fully with questionable accuracy. Pt reporting no real fall history. SUBJECTIVE Pt agreeable to PT, ok per nursing to treat THERAPY DIAGNOSIS Reduced mobility-other, Unsteadiness on feet, Ataxic gait, Abnormalities of gait and mobility-other TREATMENT INTERVENTIONS Therapeutic Activity (42009) Treatment Minutes: 10 $ Therapeutic Activity (03552) Billed Units: 1 unit Gait Training (23826) Treatment Minutes: 12 $ Gait Training (16561) Billed Units: 1 unit Neuromuscular Reeducation (39840) Treatment Minutes: 16 $ Neuromuscular Reeducation (31215) Billed Units: 1 unit Sidestepping, forward ambulation, retro stepping, tandem walk: 4 x 12' UE support provided throughout and PT guarding at a CGA/SBA level, seated rest breaks taken as needed Gait Training (26084), Therapeutic Activity (10216), Neuromuscular Reeducation (09495) Timed Code Treatment (minutes): 38 Skilled Treatment Time (minutes): 38 TRAINING AND EDUCATION PROVIDED Bed Mobility, Benefits of In-Hospital Mobility, Discharge Planning, Expected Functional Level, Falls Prevention, Equipment, Gait Pattern, Reduction of Deviations, Precautions/Restrictions, Role of Physical Therapy, Transfers, Assistive Device Use, Anatomy and Impact on Deficits, Pre-gait Activities, Standing Balance, Treatment Protocol THERAPEUTIC SKILLS USED Activity Dosing, Cuing Verbal, Cues for Sequencing/Proper Technique for Activity, Management of Critical Lines, Tubes and/or Drains, Muscle Activation Facilitation, Physical Assist, Postural Alignment Correction, Cuing Tactile, Movement Facilitation, Assessment of Tolerance Including Vitals Response to Activity FUNCTIONAL STATUS Bed Mobility Supine To Sit: Stand By Assistance HOB elevated, use of bed rails Sit to Supine: Stand By Assistance Scooting: Stand By Assistance Transfers Sit To Stand: Minimal Assistance, Contact Guard Assistance unsteady with chair surface with LOB, better from immovable bed surface, reinforcement for proper hand placement. Stand To Sit: Contact Guard Assistance cues for safe appraoch to surface, proper hand placement, controlled descent to sit. Bed to Chair Gait Contact Guard Assistance reciprocatng pattern with decreased step length, steppage gait with RLE, intermittent unsteadiness however no LOB, requires cues for safe pace and safety with directional changes. Gait Device: Wheeled Walker General Deviations/Observations: Ataxic gait, Elvira decreased, Difficulty changing direction/turning, Lateral sway increased, Visual scanning/environmental awareness decreased, Step length decrease (more content not included)... Normal [facility] THERAPY NT HNO ID: [id number] Author: ROGER HARPER PT Service: Physical Therapy Author Type: Physical Therapist Type: Therapy (PT/OT/Speech/Resp) Filed: 02/29/2024 07:59 Note Text: -- Summary: PT missed visit -- PHYSICAL THERAPY MISSED VISIT SERVICE DATE: 02/29/2024 SERVICE TIME: 0756 ROOM: [place] [address] Patient not seen due to Patient Not Available (nursing care). SIGNATURE: Roger Harper PT PATIENT NAME: Ayesha Jacobsen DATE: February 29, 2024 TIME: 7:58 AM [facility] Basic metabolic 2000 panelon 02-28-2024 Anion gap [Moles/Vol] 10 mmol/L Normal 8-15 [facility] Comment on above: Order Comment: Jame amaya Type: BLOOD SPECIMENOrdering Facility: [facility] Address: [address] [place] [address] Performed By: #### 2 4321-2 ####[facility]ORATORYCLIA [id number] [place] [id number] [place] Calcium [Mass/Vol] 8.9 mg/dL Normal 8.5-10.2 [facility] Comment on above: Order Comment: Jame amaya Type: BLOOD SPECIMENOrdering Facility: [facility] Address: [address] [place] [address] Performed By: #### 2 4321-2 ####[facility]ATORYCLIA [id number] [address] [place] Chloride [Moles/Vol] 108 mmol/L High 98-107 [facility] Comment on above: Order Comment: Specbrenna men Type: BLOOD SPECIMENOrdering Facility: [facility] Address: [address] [place] [address] Performed By: #### 2 4321-2 ####[facility]ORATORYCLIA [id number] [address] CO2 [Moles/Vol] 25 mmol/L Normal 22-30 [facility] Comment on above: Order Comment: Jame amaya Type: BLOOD SPECIMENOrdering Facility: [facility] Address: [address] [place] [address] Performed By: #### 2 4321-2 ####[facility]ORATORYCLIA [id number] [address] [facility] Creatinine [Mass/Vol] 1.24 mg/dL High 0.73-1.22 [facility] Comment on above: Order Comment: Jame men Type: BLOOD SPECIMENOrdering Facility: [facility] Address: [address] [place] [address] Performed By: #### 2 4321-2 ####[facility]ATORYCLIA [id number] [address] Creatinine and Glomerular filtration rate.predicted panel (S/P/Bld) 56 mL/min/1.73m??? Low >=60 [facility] Comment on above: Order Comment: Jame [facility] Type: BLOOD SPECIMENOrdering Facility: [facility] Address: [address] [place] [address] Result Comment: Radha mated Glomerular Filtration Rate (eGFR) is calculated using the 2020 CKD-EPI creatinine equation. This equation utilizes serum creatinine, sex, and age as parameters. The creatinine assay has traceable calibration to isotope dilution-mass spectrometry. Refer to KDIGO guidelines for clinical interpretation. In patients with unstable renal function, e.g. those with acute kidney injury, the eGFR may not accurately reflect actual GFR. Performed By: #### 2 4321-2 ####[facility]ATORYCLIA [id number] [place] [address] [place] Glucose [Mass/Vol] 92 mg/dL Normal 74-99 [facility] Comment on above: Order Comment: Jame amaya Type: BLOOD SPECIMENOrdering Facility: [facility] Address: [address] [place] [address] Result Comment: The [place] Diabetes Association (ADA) provides guidance for cutoff values for fasting glucose and random glucose. The ADA defines fasting as no caloric intake for at least 8 hours. Fasting plasma glucose results between 100 to 125 mg/dL indicate increased risk for diabetes (prediabetes). Fasting plasma glucose results greater than or equal to 126 mg/dL meet the criteria for diagnosis of diabetes. In the absence of unequivocal hyperglycemia, results should be confirmed by repeat testing. In a patient with classic symptoms of hyperglycemia or hyperglycemic crisis, random plasma glucose results greater than or equal to 200 mg/dL meet the criteria for diagnosis of diabetes. Reference: Standards of Medical Care in Diabetes 2016, [place] Diabetes Association. Diabetes Care. 2016.39(Suppl 1). Performed By: #### 2 4321-2 ####[facility]ORATORYCLIA [id number] [place] [address] [place] Potassium [Moles/Vol] 4.0 mmol/L Normal 3.7-5.1 [facility] Comment on above: Order Comment: Jame amaya Type: BLOOD SPECIMENOrdering Facility: [facility] Address: [address] [place] [address] Performed By: #### 2 4321-2 ####[facility]ORATORYCLIA [id number] [place] [address] [place] Sodium [Moles/Vol] 143 mmol/L Normal 136-144 [facility] Comment on above: Order Comment: Jame amaya Type: BLOOD SPECIMENOrdering Facility: [facility] Address: [address] [place] [address] Performed By: #### 2 4321-2 ####[facility]ORATORYCLIA [id number] [place] [address] [place] Urea nitrogen [Mass/Vol] 28 mg/dL High 9-24 [facility] Comment on above: Order Comment: Speci men Type: BLOOD SPECIMENOrdering Facility: [facility] Address: [address] [place] [address] Performed By: #### 2 4321-2 ####[facility]ORATORYCLIA [id number] [address] CBC panel Auto (Bld)on 02-27 Erythrocyte distribution width (RBC) [Ratio] 13.6 % Normal 11.5-15.0 [facility] Comment on above: Order Comment: Speci men Type: BLOOD SPECIMENOrdering Facility: [facility] Address: [address] [place] [address] Performed By: #### 5 8410-2 ####[facility]ATORYCLIA [id number] [address] Hematocrit (Bld) [Volume fraction] 42.4 % Normal 39.0-51.0 [facility] Comment on above: Order Comment: Speci men Type: BLOOD SPECIMENOrdering Facility: [facility] Address: [address] [place] [address] Performed By: #### 5 8410-2 ####[facility]ORATORYCLIA [id number] [address] Hemoglobin (Bld) [Mass/Vol] 13.8 g/dL Normal 13.0-17.0 [facility] Comment on above: Order Comment: Speci men Type: BLOOD SPECIMENOrdering Facility: [facility] Address: [address] [place] [address] Performed By: #### 5 8410-2 ####[facility]ORATORYCLIA [id number] [address] MCH (RBC) [Entitic mass] 29.6 pg Normal 26.0-34.0 [facility] Comment on above: Order Comment: Speci men Type: BLOOD SPECIMENOrdering Facility: [facility] Address: [address] [place] [address] Performed By: #### 5 8410-2 ####[facility]ATORYCLIA [id number] [address] MCHC (RBC) [Mass/Vol] 32.5 g/dL Normal 30.5-36.0 [facility] Comment on above: Order Comment: Speci men Type: BLOOD SPECIMENOrdering Facility: [facility] Address: [facility] [place] [address] Performed By: #### 5 8410-2 ####[facility]ORATORYCLIA [id number] [address] [place] MCV (RBC) [Entitic vol] 90.8 fL Normal 80.0-100.0 [facility] Comment on above: Order Comment: Speci men Type: BLOOD SPECIMENOrdering Facility: [facility] Address: [address] [place] [address] Performed By: #### 5 8410-2 ####[facility]ORATORYCLIA [id number] [address] [place] Nucleated RBC (Bld) [#/Vol] 10*3/uL Normal <0.01 [facility] Comment on above: Order Comment: Speci men Type: BLOOD SPECIMENOrdering Facility: [facility] Address: [address] [place] [address] Performed By: #### 5 8410-2 ####[facility]ORATORYCLIA [id number] [address] [place] Platelet mean volume (Bld) [Entitic vol] 10.7 fL Normal 9.0-12.7 [facility] Comment on above: Order Comment: Speci men Type: BLOOD SPECIMENOrdering Facility: [facility] Address: [address] [place] [address] Performed By: #### 5 8410-2 ####[facility]ORATORYCLIA [id number] [address] [place] Platelets (Bld) [#/Vol] 216 10*3/uL Normal 150-400 [facility] Comment on above: Order Comment: Speci men Type: BLOOD SPECIMENOrdering Facility: [facility] Address: [address] [place] [address] Performed By: #### 5 8410-2 ####[facility]ORATORYCLIA [id number] [place] [address] [place] RBC (Bld) [#/Vol] 4.67 10*6/uL Normal 4.20-6.00 [facility] Comment on above: Order Comment: Speci men Type: BLOOD SPECIMENOrdering Facility: [facility] Address: [address] [place], [place] [address] Performed By: #### 5 8410-2 ####[facility]ATORYCLIA [id number] [address] [place] WBC (Bld) [#/Vol] 11.13 10*3/uL High 3.70-11.00 [facility] Comment on above: Order Comment: Speci men Type: BLOOD SPECIMENOrdering Facility: [facility] Address: [address] [place], [place] [address] Performed By: #### 5 8410-2 ####[facility]ATORYCLIA [id number] [address] CONSULT PROGon 02-28-2024 CONSULT PROG HNO ID: [id number] Author: IVETT SELF PA-C Service: Neurology General Author Type: Physician Pottery Decorator Type: Consult Progress Note Filed: 02/28/2024 10:51 Note Text: TELENEUROLOGY CONSULT PROGRESS NOTE The Teleneurologist or ARISTEO is available from 8 am to 5 pm on weekdays. On weekends, at [place] and [place], the Teleneurologist or ARISTEO is available from 8 am to 5 pm, [facility] 8 am to 12 pm, [facility] 1 pm to 5 pm, [facility] 8 am to 12 pm, [place] 1 pm to 5 pm. Statutory holidays do not have teleneuro coverage. [place]: During Off hours for Teleneurology please page (not call) [place] [facility] [phone] content manager for concerns. [facility]/[place]: During Off hours for Teleneurology please page (not call) [place] [facility] [phone] content manager for concerns. [facility]: There is no off-hours coverage for Teleneurology. The below follow up visit is a virtual visit conducted via video and was not in-person. Patient consented to visit. Physical exam was performed with the help of a presenter (trained nurse of physical therapist). SERVICE DATE: 02/28/2024 SERVICE TIME: 1038 ATTENDING: Daniel Perez MD Subjective Interval History: Patient is alert but not oriented to place. Aware of month after looking at the board with the date on it. Knows age. No history of stroke. Only history of head injury is recent fall. Did not lose consciousness. NO bowel or bladder incontinence, no tongue biting. Patient lives with his . drives. No headache. Mild neck pain that comes and goes (not new). NO photophobia, nausea, or vomiting. Objective PHYSICAL EXAM BP 158/81 Pulse 80 Temp (Src) 98.4 (Axillary) Resp 22 Ht 5' 6 (1.68m) Wt 158 lb 4.6 oz (71.8kg) SpO2 96% BMI 25.56 kg/(m2). O2 Therapy: Room Air Neurologic Exam Cognitive and Language: Alert and answered questions appropriately. Language was fluent. Is oriented to month but not place. Patient able to follow commands Cranial Nerves: Extraocular movements were full with no diplopia or nystagmus. Facial strength was symmetric. Face appear symmetric. Sensory: equal on both sides Motor: strength equal throughout INITIAL NIHSS (if available): DATA: Diagnostic tests reviewed for today's visit: Most recent labs and imaging results. Impression/Recommendations Ayesha is an 88 year old male with h/o congenital esophageal atresia and stenosis, diverticulosis, HTN, reflex, esophageal stricture presenting with dizziness. Examination reveals an awake, alert patient with no focal weakness or sensory loss. He was recently hospitalized for UTI on 02/21 and seen by neurology for dizziness. MRI brain was negative at that time. Today he returns for acute change in mental status. Cognition improved today and patient better able to follow commands. NO focal deficits noted today. MRI brain negative for acute process. EEG showing potential epileptogenicity in the left hemisphere. No clear focus for seizures on imaging. Would recommend MRI brain w/wo contrast. He does have leukocytosis, but no other signs of meningitis. In view of confusion, intermittent inattention yesterday (can be a sign of seizures), and findings on EEG, would recommend starting on Keppra. Will also repeat EEG to assess for subclinial seizures. Recommend follow up with epilepsy outpatient. PLAN MRI brain w/wo Start Keppra 500 mg BID Repeat EEG Follow up with epilepsy Teleneurology service will follow up pending studies. SIGNATURE: Ivett Self PA-C PATIENT NAME: Ayesha Jacobsen DATE: February 28, 2024 TIME: 10:38 AM PAGER/CONTACT #: Time spent included 37 min on the day of service, which included preparing to see the patient, [id number] patient care, completing clinical documentation, obtaining and/or reviewing separately obtained history, performing a medically appropriate examination, counseling and educating the patient/family/caregiver and ordering medications, tests, or procedures. [facility] THERAPY NTon 02-28-2024 THERAPY NT HNO ID: [id number] Author: WENDY FISHER PT Service: Physical Therapy Author Type: Physical Therapist Type: Therapy (PT/OT/Speech/Resp) Filed: 02/28/2024 11:31 Note Text: -- Summary: PT Eval -- Physical Therapy Evaluation Summary SERVICE DATE: 02/28/2024 SERVICE TIME: 1000 to 1026 ROOM: [id number]- PT 6 Clicks Score: 18 DISCHARGE RECOMMENDATIONS Subacute/SNF Recommended Discharge Disposition Comments: Pt is currently performing functional mobility below PLOF and requires continued skilled PT to reduce risk of falls and rehospitalization. Recommended Discharge Disposition Due to: Functional deficits requiring ongoing therapy service prior to discharge home., Anticipated community discharge, Complex equipment needs, Coordination deficits, Ataxia, Balance deficits, Functional status decline, Motor planning deficits, Requires multiple therapy disciplines Recommended Discharge Equipment: No equipment needs anticipated ASSESSMENT Response to Therapy Interventions: Cognitive Deficits, Low Activity Tolerance, Requires Additional Time to Complete Activities Pt is currently performing functional mobility below PLOF with increased time and assist to complete all mobility. Pt completed progression of mobility to OOB and ambulation, ataxic with all mobility noted with HIGH falls risk. PRECAUTIONS Fall Risk, Sitter, Lines/Tubes/Drains, Impulsive with Activity, Bed/Chair Alarm standard CURRENT HOSPITAL COURSE MRI: Chronic microvascular changes. A few punctate remote microhemorrhages in the supratentorial brain parenchyma Relevant Past Medical History: HTN, BPH, ANDREWS, metabolic encephalopathy, L inguinal hernia, GERD, aortic valve disorder, asthma HOME LIVING Patient Lives With: Spouse Assistance Available: 24-Hour Entry To Home: Other: See Comment (pt unable to recall you never notice really, you just drift in, previous record stating stairs with HR) Number Of Stairs To Bed/Bath: (pt with difficulty recalling, previous medical record stating no stairs to bed/bath) Tub/Shower Type: walk in shower Laundry: completes at baseline Equipment Owned: Cane PRIOR FUNCTIONAL LEVEL Within Functional Limits, Poor Historian, Unable to Assess, Unable to Report Pt reports previously independent with mobility, pt reports I can drive, however my is doing the driving now, pt unable to recall entry to home and home set-up fully with questionable accuracy. Pt reporting no real fall history. SUBJECTIVE Pt pleasant and agreeable to PT. THERAPY DIAGNOSIS Reduced mobility-other, Unsteadiness on feet, Ataxic gait, Abnormalities of gait and mobility-other TREATMENT INTERVENTIONS Evaluation, Therapeutic Activity (75722), Gait Training (26545) Timed Code Treatment (minutes): 11 Skilled Treatment Time (minutes): 26 $ Evaluation-Low (64378) Billed Units: 1 unit Therapeutic Activity (04199) Treatment Minutes: 3 $ Therapeutic Activity (63477) Billed Units: 0 units Gait Training (89230) Treatment Minutes: 8 $ Gait Training (42881) Billed Units: 1 unit TRAINING AND EDUCATION PROVIDED Bed Mobility, Benefits of In-Hospital Mobility, Discharge Planning, Expected Functional Level, Falls Prevention, Equipment, Gait Pattern, Reduction of Deviations, Precautions/Restrictions, Role of Physical Therapy, Transfers, Assistive Device Use, Anatomy and Impact on Deficits, Pre-gait Activities, Standing Balance, Treatment Protocol THERAPEUTIC SKILLS USED Activity Dosing, Cuing Verbal, Cues for Sequencing/Proper Technique for Activity, Management of Critical Lines, Tubes and/or Drains, Muscle Activation Facilitation, Physical Assist, Postural Alignment Correction, Cuing Tactile, Movement Facilitation FUNCTIONAL STATUS Bed Mobility Supine To Sit: Additional Information, Supervision impulsive wtih initiation of movement Sit to Supine: Additional Information, Supervision completed with impulsivity Scooting: Additional Information, Supervision towards EOB prior to stand Transfers Sit To Stand: Additional Information, Minimal Assistance ataxic, assist to steady Stand To Sit: Additional Information, Minimal Assistance for safety Bed to Chair Gait Additional Information, Minimal Assistance generalized unsteadiness, impaired B foot control with initial contact and loading response, however able to hold against resistance with MMT'ing; ataxic throughout Gait Device: Wheeled Walker General Deviations/Observations: Ataxic gait, Elvira decreased, Difficulty changing direction/turning, Lateral sway increased, Non-functional gait speed, Improper distancing from assistive device, Visual scanning/environmental awareness decreased, Path Deviation Gait Distance (feet): 20ft Stairs ROM ROM Limitation Comments: (more content not included)... Normal [facility] ALLIED HEALTH 02-27-2024 [facility] HNO ID: [id number] Author: MICHELLE ROLDAN CT Service: Radiology Author Type: Technologist Type: Allied Health Filed: 02/27/2024 09:44 Note Text: Radiology Service Progress Note PATIENT NAME: Ayesha Jacobsen DATE OF SERVICE: February 27, 2024 TIME: 9:43 AM PATIENT IDENTITY VERIFICATION COMPLETED USING TWO (2) IDENTIFIERS: Name and Date of confirmed by patient verbally and Name and Date of confirmed by identification band. FALL SCREENING: Has the patient had 2 falls in the last year or 1 fall with injury or currently using an Ambulatory Assistive Device (Walker, Cane, Wheelchair, Crutches, etc.)? Inpatient: Screened on floor PATIENT GENDER DATA: Male PATIENT RELEVANT IMPLANT DATA REVIEWED: Yes PATIENT PRESENTS WITH AN IMPLANTABLE OR ATTACHED CLERK: No RADIOLOGY DEPARTMENT: MR; Exam(s) Completed: Head: Routine Brain PERIPHERAL IV DATA: Not applicable SIGNED BY: Paddy Russo RT Michelle MELANIE Roldan February 27, 2024 9:43 AM [facility] Ammonia Plas-sCncon 02-27-20 Ammonia (P) [Moles/Vol] 17 umol/L Normal 16-60 [facility] Comment on above: Order Comment: Speci men Type: BLOOD SPECIMENOrdering Facility: [facility] Address: [address] [place] [address] Performed By: #### 1 6362-6 ####[facility] LABORATORYCLIA [id number] [place] [address] [place] Basic metabolic 2000 panelon 02-27-2024 Anion gap [Moles/Vol] 10 mmol/L Normal 8-15 [facility] Comment on above: Order Comment: Speci men Type: BLOOD SPECIMENOrdering Facility: [facility] Address: [address] [place] [address] Performed By: #### 2 4321-2 ####[facility] LABORATORYCLIA [id number] [place] [address] [place] Calcium [Mass/Vol] 8.7 mg/dL Normal 8.5-10.2 [facility] Comment on above: Order Comment: Speci men Type: BLOOD SPECIMENOrdering Facility: [facility] Address: [address] [place] [address] Performed By: #### 2 4321-2 ####[facility] LABORATORYCLIA [id number] [place] [address] [place] Chloride [Moles/Vol] 107 mmol/L Normal 98-107 [facility] Comment on above: Order Comment: Speci men Type: BLOOD SPECIMENOrdering Facility: [facility] Address: [address] [place] [address] Performed By: #### 2 4321-2 ####[facility] LABORATORYCLIA [id number] [place] [address] [place] CO2 [Moles/Vol] 23 mmol/L Normal 22-30 [facility] Comment on above: Order Comment: Speci men Type: BLOOD SPECIMENOrdering Facility: [facility] Address: [address] [place] [address] Performed By: #### 2 4321-2 ####[facility] LABORATORYCLIA [id number] [place] [address] [place] Creatinine [Mass/Vol] 1.45 mg/dL High 0.73-1.22 [facility] Comment on above: Order Comment: Jame amaya Type: BLOOD SPECIMENOrdering Facility: [facility] Address: [address] [place] [address] Performed By: #### 2 4321-2 ####[facility] LABORATORYCLIA [id number] [place] [address] [place] Creatinine and Glomerular filtration rate.predicted panel (S/P/Bld) 47 mL/min/1.73m??? Low >=60 [facility] Comment on above: Order Comment: Jame amaya Type: BLOOD SPECIMENOrdering Facility: [facility] Address: [address] [place] [address] Result Comment: Radha mated Glomerular Filtration Rate (eGFR) is calculated using the 2020 CKD-EPI creatinine equation. This equation utilizes serum creatinine, sex, and age as parameters. The creatinine assay has traceable calibration to isotope dilution-mass spectrometry. Refer to KDIGO guidelines for clinical interpretation. In patients with unstable renal function, e.g. those with acute kidney injury, the eGFR may not accurately reflect actual GFR. Performed By: #### 2 4321-2 ####[facility] LABORATORYCLIA [id number] [place] [address] [place] Glucose [Mass/Vol] 85 mg/dL Normal 74-99 [facility] Comment on above: Order Comment: Rupertbrenna amaya Type: BLOOD SPECIMENOrdering Facility: [facility] Address: [address] [place] [address] Result Comment: The [place] Diabetes Association (ADA) provides guidance for cutoff values for fasting glucose and random glucose. The ADA defines fasting as no caloric intake for at least 8 hours. Fasting plasma glucose results between 100 to 125 mg/dL indicate increased risk for diabetes (prediabetes). Fasting plasma glucose results greater than or equal to 126 mg/dL meet the criteria for diagnosis of diabetes. In the absence of unequivocal hyperglycemia, results should be confirmed by repeat testing. In a patient with classic symptoms of hyperglycemia or hyperglycemic crisis, random plasma glucose results greater than or equal to 200 mg/dL meet the criteria for diagnosis of diabetes. Reference: Standards of Medical Care in Diabetes 2016, [place] Diabetes Association. Diabetes Care. 2016.39(Suppl 1). Performed By: #### 2 4321-2 ####[facility] LABORATORYCLIA [id number] [place] [address] [place] Potassium [Moles/Vol] 3.7 mmol/L Normal 3.7-5.1 [facility] Comment on above: Order Comment: Speci men Type: BLOOD SPECIMENOrdering Facility: [facility] Address: [address] [place] [address] Performed By: #### 2 4321-2 ####[facility] LABORATORYCLIA [id number] [place] [id number] [place] Sodium [Moles/Vol] 140 mmol/L Normal 136-144 [facility] Comment on above: Order Comment: Speci men Type: BLOOD SPECIMENOrdering Facility: [facility] Address: [address] [place] [address] Performed By: #### 2 4321-2 ####[facility] LABORATORYCLIA [id number] [place] [address] [place] Urea nitrogen [Mass/Vol] 25 mg/dL High 9-24 [facility] Comment on above: Order Comment: Speci men Type: BLOOD SPECIMENOrdering Facility: [facility] Address: [address] [place] [address] Performed By: #### 2 4321-2 ####[facility] LABORATORYCLIA [id number] [place] [id number] [facility] [place] CASE MGT INIT ASSESon 2023 CASE MGT INIT ASSES HNO ID: [id number] Author: MONIQUE VAZQUEZ LSW Service: ASSESSMENT Author Type: Director Of People Type: Care Mgt Initial Assessment Filed: 02/27/2024 12:50 Note Text: CARE MANAGEMENT: ASSESSMENT AND DISCHARGE PLAN SERVICE DATE: February 27, 2024 SERVICE TIME: 12:49 PM PCP: Daniel Perez MD-verified Primary Contact: Extended Emergency Contact Information Primary Emergency Contact: Marilyn Jacobsen Address: [address] [address] Relation: Spouse Secondary Emergency Contact: DonnShay Mobile Relation: Daughter Admission Status: Inpatient Insurance Provider: LILLIE HERNANDEZ [facility] Discharge Planning requested by: Per Department Practice Potential Transition Plans Home;To Be Determined Advance Directives Current Advance Directive: None Senior Scheduler Attempted to Assist with AD Completion: Yes Action: Education Provided Current Living Arrangements and Support Lives with: Spouse/significant other Type of Residence: Private Residence (House) Does the patient have to climb stairs at home?: Yes;stairs outside the home;stairs within the home Support: Friends/neighbors, Spouse/significant other How do you manage to accomplish the following: Independent: Bathe/Shower;Dress;Meals/M eal Prep;Going to the bathroom Needs Assistance: Ambulation;Medication Management;Transportation to appointments/community Current Services/Equipment Current Post-Acute Service(s): DME Current DME Type: Cane Current Post-Acute Service(s) Provider: N/A Discharge Planning Patient Goal(s): Be able to go home [place] Explained: [place] Given: No Reason Not Given: Unable to complete with this assessment - revisit Are you interested in bedside delivery of your medications? No Discharge Planning Participant(s): Patient Patient/Family Comments: Pt. would like to return home upon discharge Caregiver Assessment: Caregiver is ready, willing and able to meet the patient's needs as recommended by the inter-professional team: Other: See Comment (TBD closer to discharge) Transport at Discharge: Transportation Arrangements: To Be Determined Needs Prior to Discharge: Needs Prior to Discharge: To Be Determined Post-Acute Discharge Plan: SW reviewed EMR and met w/pt. Bedside. Pt. Has been admitted with Delirium. Pt. Was recently admitted 02/22/24-02/24/24 for dizziness/UTI. CT of head; CTA/MRI unremarkable. Pt. Discharged home w/basic needs. Per EMR, MRI brain ordered to rule out acute process/stroke. Neuro is on consult. Pt. Is on RA. Pt. from home w/spouse and mostly I-ADLs. Per pt. He uses a cane for ambulation. CM assigned will follow for needs. SIGNATURE: Monique Vazquez MSW, REST ROOM MAID PATIENT NAME: Ayesha Jacobsen DATE: February 27, 2024 TIME: 12:49 PM CONTACT #: [facility] CBC panel Auto (Bld)on 02-26 Erythrocyte distribution width (RBC) [Ratio] 13.7 % Normal 11.5-15.0 [facility] Comment on above: Order Comment: Speci men Type: BLOOD SPECIMENOrdering Facility: [facility] Address: [address] [place] [address] Performed By: #### 5 8410-2 ####[facility] LABORATORYCLIA [id number] [address] Hematocrit (Bld) [Volume fraction] 42.5 % Normal 39.0-51.0 [facility] Comment on above: Order Comment: Speci men Type: BLOOD SPECIMENOrdering Facility: [facility] Address: [address] [place] [address] Performed By: #### 5 8410-2 ####[facility] LABORATORYCLIA [id number] [address] Hemoglobin (Bld) [Mass/Vol] 13.9 g/dL Normal 13.0-17.0 [facility] Comment on above: Order Comment: Speci men Type: BLOOD SPECIMENOrdering Facility: [facility] Address: [address] [place] [address] Performed By: #### 5 8410-2 ####[facility] LABORATORYCLIA [id number] [address] MCH (RBC) [Entitic mass] 29.8 pg Normal 26.0-34.0 [facility] Comment on above: Order Comment: Speci men Type: BLOOD SPECIMENOrdering Facility: [facility] Address: [address] [place] [address] Performed By: #### 5 8410-2 ####[facility] LABORATORYCLIA [id number] [address] MCHC (RBC) [Mass/Vol] 32.7 g/dL Normal 30.5-36.0 [facility] Comment on above: Order Comment: Speci men Type: BLOOD SPECIMENOrdering Facility: [facility] Address: [address] [place] [address] Performed By: #### 5 8410-2 ####[facility] LABORATORYCLIA [id number] [address] [place] MCV (RBC) [Entitic vol] 91.2 fL Normal 80.0-100.0 [facility] Comment on above: Order Comment: Speci men Type: BLOOD SPECIMENOrdering Facility: [facility] Address: [address] [place] [address] Performed By: #### 5 8410-2 ####[facility] LABORATORYCLIA [id number] [address] [place] Nucleated RBC (Bld) [#/Vol] 10*3/uL Normal <0.01 [facility] Comment on above: Order Comment: Speci men Type: BLOOD SPECIMENOrdering Facility: [facility] Address: [address] [place] [address] Performed By: #### 5 8410-2 ####[facility] LABORATORYCLIA [id number] [address] [place] Platelet mean volume (Bld) [Entitic vol] 10.7 fL Normal 9.0-12.7 [facility] Comment on above: Order Comment: Speci men Type: BLOOD SPECIMENOrdering Facility: [facility] Address: [address] [place] [address] Performed By: #### 5 8410-2 ####[facility] LABORATORYCLIA [id number] [address] Platelets (Bld) [#/Vol] 190 10*3/uL Normal 150-400 [facility] Comment on above: Order Comment: Speci men Type: BLOOD SPECIMENOrdering Facility: [facility] Address: [address] [place] [address] Performed By: #### 5 8410-2 ####[facility] LABORATORYCLIA [id number] [address] [place] RBC (Bld) [#/Vol] 4.66 10*6/uL Normal 4.20-6.00 [facility] Comment on above: Order Comment: Speci men Type: BLOOD SPECIMENOrdering Facility: [facility] Address: [address] [place] [address] Performed By: #### 5 8410-2 ####[facility] LABORATORYCLIA [id number] [place] [address] [place] WBC (Bld) [#/Vol] 11.19 10*3/uL High 3.70-11.00 [facility] Comment on above: Order Comment: Speci men Type: BLOOD SPECIMENOrdering Facility: [facility] Address: [address] [place] [address] Performed By: #### 5 8410-2 ####[facility] LABORATORYCLIA [id number] [place] [address] [facility] CONSULTon 02-27-2024 CONSULT HNO ID: [id number] Author: IVETT SELF PA-C Service: Neurology General Author Type: Physician Pottery Decorator Type: Consults Filed: 02/27/2024 08:44 Note Text: TELENEUROLOGY VISIT - New Consultation Name and :Aeysha Jacobsen 1935 Patient consented to teleneurology visit on order for consult. Patient consented in Teleneuro consult order. The Teleneurologist or ARISTEO is available from 8 am to 5 pm on WEEKDAYS. Rounding hours are: [facility]: 12 pm to 5 pm [place]: 1 pm to 4:30 pm [place]: 8 am to 12 pm [place]: 8 am to 10 am [place]: 1 pm to 5 pm [place]: 1 pm to 5 pm [facility]: 10 am to 12 pm During weekends, coverage is only during rounding hours. [facility]: 1 pm to 5 pm [place]: 8 am to 12 pm [place]: 8 am to 12 pm [place]: 10 am to 12 pm [place]: 1 pm to 5 pm [place]: 1 pm to 5 pm [facility]: 8 am to to 12 pm Statutory holidays do not have teleneuro coverage. [facility]: During Off hours for Teleneurology please page (not call) [place] [facility] [id number] content manager for concerns. [facility]: During Off hours for Teleneurology please page (not call) [place] [facility] [phone] content manager for concerns. [facility]: There is no off-hours coverage for Teleneurology. Name: Ayesha Jacobsen Age: [age] year old Gender: male Chief Complaint:Confused (Sent by PCP for eval of confusion. Recent admission for UTI.) Admission Date: 02/26/2024 Consult Requested By: Daniel Perez MD, recommendations will be communicated by shared medical record. HPI: Per previous neurology note: Assessment: Ayesha is an 88 year old male with h/o congenital esophageal atresia and stenosis, diverticulosis, HTN, reflex, esophageal stricture presenting with dizziness. Examination reveals an awake, alert patient with no focal weakness or sensory loss. NIHSS of 0. 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 He is on Abx for possible UTI. Dizziness may be from peripheral vertigo. Will await for MRI to rule out stroke. Consider vestibular rehab OP if MRI is negative Patient reports he is in the hospital because he fell. Did not trip. Not sure where he is right now. Cannot say year. Knows the month. Knows age. Not able to provide a good history. Review of Systems Review of systems as indicated in HPI. All other systems negative. ACTIVE PROBLEM LIST Left Inguinal Hernia Primary Hypertension Gerd (Gastroesophageal Reflux Disease) Aortic Valve Disorder Bph (Benign Prostatic Hyperplasia) Former Smoker Esophageal Stricture Asthma Nonrheumatic Aortic Valve Stenosis Acute On Chronic Urinary Retention Dizziness Weakness Dizziness, Nonspecific Leukocytosis Acute Cystitis With Hematuria Andrews (Acute Kidney Injury) (Hcc) Delirium PAST MEDICAL HISTORY Diagnosis Date Congenital tracheoesophageal fistula, esophageal atresia and stenosis Diverticulosis of colon with hemorrhage Essential hypertension 07/24/2017 GERD (gastroesophageal reflux disease) 07/24/2017 Stricture and stenosis of esophagus Medications: Reviewed Current Facility-Administered Medications Medication Dose Route Frequency Provider Last Rate Last Admin cefTRIAXone iv piggyback 1 g in dextrose (iso-osmotic) 50 mL (ROCEPHIN) 1 g INTRAVENOUS q 24 H Vince Garcia APRN.INSTRUCTIONAL SYSTEMS SPECIALIST Stopped at 02/26/242011 meclizine 25 mg tab(s) (ANTIVERT) 25 mg ORAL TID PRN Vince Garcia APRN.CNP tamsulosin 0.4 mg cap(s) (FLOMAX) 0.4 mg ORAL DAILY Fourmann, Vince, PST SPECIALIST.INSTRUCTIONAL SYSTEMS SPECIALIST pantoprazole DR 20 mg tab(s) (PROTONIX) 20 mg ORAL DAILY (6 AM) Vince Garcia APRN.INSTRUCTIONAL SYSTEMS SPECIALIST 20 mg at 02/27/24 0621 NaCl 0.9% iv infusion 75 mL/hr INTRAVENOUS CONTINUOUS Vince Garcia APRN.INSTRUCTIONAL SYSTEMS SPECIALIST 75 mL/hr at 02/27/24 0032 75 mL/hr at 02/27/24 0032 ALLERGIES Allergen Reactions Eggs [Egg] Hives, Shortness of Breath FAMILY HISTORY Problem Relation Age of Onset Cancer Mother colon Cancer Father ? PAST SURGICAL HISTORY Procedure Laterality Date EGD FLEXIBLE FOREIGN BODY REMOVAL 07/24/13 distal stenosis ESOPHAGOSCOPY FLEX BALLOON DILAT <30 MM DIAM 06/27/2008 Esophageal dilatation ESOPHAGOSCOPY FLEX BALLOON DILAT <30 MM DIAM 07/25/08 ESOPHAGOSCOPY FLEXIBLE REMOVAL FOREIGN BODY 05/27/08 ER [facility] PAST SURGICAL HISTORY OF Mid COLON RESECTION REPAIR INGUINAL HERNIA Left 07/25/2017 Tobacco Use: Medium Risk (02/26/2024) Patient History Smoking Tobacco Use: Former Smokeless Tobacco Use: Never Passive Exposure: Not on file Alcohol Use: Not on file PHYSICAL EXAM: Physical exam performed with telepresenter and observed and documented by clinician in this note BP 141/76 Pulse 87 Temp 36.6 ?C (97.9 ?F) (Temporal) Resp 20 Ht 167.6 cm (5' 6) Wt 70.3 kg (154 lb 15.7 oz) SpO2 94% BMI 25.01 kg/m? Neurologic Exam NIHSS: 1(a). Mental Status - LOC 0 = Alert and Attentive 1(b). LOC Questions 0 = Correct age and month (more content not included)... Normal [facility] HISTORY PHYSICALon 4 HISTORY PHYSICAL HNO ID: [id number] Author: DANIEL PEREZ MD Service: Family Practice Author Type: Physician Type: H&P Filed: 02/27/2024 06:28 Note Text: UPDATED HISTORY AND PHYSICAL EXAMINATION SERVICE DATE: 02/27/2024 SERVICE TIME: 6:27 AM SENSITIVE EXAMINATION CONSENT: The sensitive examination was discussed with the Patient or Patient's Authorized Picture Booker. As applicable, any other physician, advance practice provider, medical student, or other health professional student that will be observing or involved in the sensitive examination for educational or training purposes was discussed with the Patient or Authorized Picture Booker. The Patient or Authorized Picture Booker has agreed to proceed with the sensitive examination. (Sensitive examination includes inspection and/or palpation of the breasts, pelvis, prostate and anorectal regions) PHYSICAL EXAM MUST BE COMPLETED ON ADMISSION The History and Physical (completed in the past 30 days) has been reviewed and the patient has been examined. The contents accurately reflect the patient's condition with the following additions or revisions since the HANDP was completed. Examination indicates the following changes were noted: This is an 88-year-old with acute confusion. states that he has not drank much. He was admitted to the hospital approximately the last week. The patient had a CT of the head and CTA and MRI which were unremarkable. Patient had a UTI. His urine culture from [facility] grew out 3 organisms. The patient was on Cipro. The patient had a follow-up with Dr. Perez patient was sent here for further evaluation. Patient has a history of BPH and urinary retention. He had no coughing or congestion. No reported falls or trauma. . This HANDP can be found in the Electronic Medical Record dated 02/23/24. SIGNATURE: Daniel Perez MD PATIENT NAME: Ayesha Jacobsen DATE: February 27, 2024 TIME: 6:27 AM [facility] MRI BRAIN WO IVCONon 024 MRI BRAIN WO IVCON * * *Final Report* * * DATE OF EXAM: Feb 27 2024 9:57AM [facility] 0294 - MRI BRAIN WO IVCON / PROCEDURE REASON: Transient ischemic attack (TIA) * * * * Physician Interpretation * * * * EXAMINATION: MRI BRAIN WO IVCON CLINICAL HISTORY: Transient ischemic attack. Dizziness and fall. TECHNIQUE: Routine noncontrast MRI protocol including diffusion images. MQ: [id number] COMPARISON: MRI brain 02/23/[address] angiogram head 02/22/2024 RESULT: Acute Change: There is no evidence of restricted diffusion to suggest an acute infarct. Hemorrhage: Punctate foci of susceptibility within the right frontal lobe and left cerebellar hemisphere compatible with remote microhemorrhages. Mass Lesion/ Mass Effect: No evidence of an intracranial mass or extra-axial fluid collection. No significant mass effect. Chronic Change: Extensive, confluent increased T2 and FLAIR signal is present in the supratentorial white matter which is nonspecific but likely represents extensive chronic microvascular ischemia. 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 Parenchyma: There is moderate generalized parenchymal volume loss. The brain parenchyma is otherwise within normal limits of signal intensity and morphology. Ventricles: Normal caliber and morphology. Skull Base: Hypothalamic and pituitary region are grossly normal. Craniocervical junction is normal. No significant marrow replacement process. Vasculature: Major intracranial arterial structures, and dural venous sinuses show typical flow void, suggesting patency by spin echo criteria. Other: Left maxillary sinus and right sphenoid sinus (series 5 image 26 and series 7 image 14) polyps versus mucus retention cyst. Right lens replacement. The orbits and extracranial soft tissues are unremarkable. IMPRESSION: * No acute intracranial normality. * Chronic microvascular changes. A few punctate remote microhemorrhages in the supratentorial brain parenchyma. Machine Bobbin Winder: KIERSTEN Transcribe Date/Time: Feb 27 2024 10:13A Dictated by : DEB FUENTES DO This examination was interpreted and the report reviewed and electronically signed by: LOW WU MD on Feb 27 2024 12:29PM EST [id number] [facility] NUTRITIONon 02-27-2024 NUTRITION HNO ID: [id number] Author: IRENE BYNUM RD Service: Nutrition Therapy Author Type: Registered Dietitian Type: Nutrition Filed: 02/27/2024 10:39 Note Text: NUTRITION THERAPY SCREEN NOTE SERVICE DATE: 02/27/2024 SERVICE TIME: 8:47 AM Care Plan: Continue current diet Monitor po intake Monitor and Evaluation: Meet greater than 75% of estimated needs HPI: Acute Delirium. Hx: congential esophageal atresia and stenosis, diverticulosis, HTN, Intake History: Nutrition Intake Prior to Admission: Greater than 75% estimated energy needs (Pt reports po intake of 2-3 meals/day, no ONS use) greater than or equal to 1 month Current Nutrition Intake: Unable to determine (Breakfast meal not documented in flow sheets this morning. Pt reports he ate breakfast, no tray at bed side to observe) Pt could not quantify amounts eaten. Questionable if pt reported nutritional intake is accurate, no visitors at bed side. No weight hx to review in [facility] over the past year but last 3 months stable. Diet Orders (From admission, onward) Start Ordered 02/26/242044 Diet Regular START NOW 02/26/242042 Anthropometrics: Height: 167.6 cm (5' 6) Weight: 70.3 kg (154 lb 15.7 oz) Usual Weight: 68.9 kg (152 lb) 11/10/23. Pt denies weight loss over the last year Weight Change: Stable weight(s) MNT Billing: $ Initial Assessment: 1-15 minutes SIGNATURE: Irene Bynum RD PATIENT NAME: Ayesha Jacobsen DATE: February 27, 2024 TIME: 10:34 AM [facility] ALLIED HEALTHon 02-26-2024 ALLIED HEALTH HNO ID: [id number] Author: JOHN PAUL MORENO RT(R) Service: ? Author Type: Technologist Type: Allied Health Filed: 02/26/2024 16:38 Note Text: Radiology Service Progress Note PATIENT NAME: Ayesha Jacobsen DATE OF SERVICE: February 26, 2024 TIME: 4:38 PM PATIENT IDENTITY VERIFICATION COMPLETED USING TWO (2) IDENTIFIERS: Name and Date of confirmed by identification band. FALL SCREENING: Has the patient had 2 falls in the last year or 1 fall with injury or currently using an Ambulatory Assistive Device (Walker, Cane, Wheelchair, Crutches, etc.)? Emergency Room Patient: Screened in ED PATIENT GENDER DATA: Male PATIENT RELEVANT IMPLANT DATA REVIEWED: Not Applicable PATIENT PRESENTS WITH AN IMPLANTABLE OR ATTACHED CLERK: No RADIOLOGY DEPARTMENT: General X-ray: Exam(s) Completed: Chest X-Ray PERIPHERAL IV DATA: Not applicable SIGNED BY: RT Sarai(R) February 26, 2024 4:38 PM [facility] Bacteria Ur Culton Bacteria identified Cx Nom (U) CULTURE, URINE: No growth (<1,000 CFU/ml) [facility] Comment on above: Performed By: #### 6 30-4 ####[facility] LABCLIA [id number] [place] [address] [place] CBC W Auto Differential pane l (Bld)on 02-26-2024 Basophils (Bld) [#/Vol] 0.06 10*3/uL Normal <0.11 [facility] Comment on above: Order Comment: Speci men Type: BLOOD SPECIMENOrdering Facility: [facility] Address: [address] [place] [address] Performed By: #### 5 7021-8 ####[facility]ORATORYCLIA [id number] [address] STATES [facility] Basophils/100 WBC (Bld) 0.4 % Normal [facility] Comment on above: Order Comment: Speci men Type: BLOOD SPECIMENOrdering Facility: [facility] Address: [address] [place] [address] Performed By: #### 5 7021-8 ####[facility]ORATORYCLIA [id number] [place] [address] [place] Differential cell count method Nom (Bld) Auto Normal [facility] Comment on above: Order Comment: Speci men Type: BLOOD SPECIMENOrdering Facility: [facility] Address: [address] [place] [address] Performed By: #### 5 7021-8 ####[facility]ORATORYCLIA [id number] [place] [address] [place] Eosinophils (Bld) [#/Vol] 0.56 10*3/uL High <0.46 [facility] Comment on above: Order Comment: Speci men Type: BLOOD SPECIMENOrdering Facility: [facility] Address: [address] [place] [address] Performed By: #### 5 7021-8 ####[facility]ORATORYCLIA [id number] [address] Eosinophils/100 WBC (Bld) 3.4 % Normal [facility] Comment on above: Order Comment: Speci men Type: BLOOD SPECIMENOrdering Facility: [facility] Address: [address] [place] [address] Performed By: #### 5 7021-8 ####[facility]ATORYCLIA [id number] [address] [place] Erythrocyte distribution width (RBC) [Ratio] 13.6 % Normal 11.5-15.0 [facility] Comment on above: Order Comment: Speci men Type: BLOOD SPECIMENOrdering Facility: [facility] Address: [address] [place] [address] Performed By: #### 5 7021-8 ####[facility]ATORYCLIA [id number] [place] [address] [place] Hematocrit (Bld) [Volume fraction] 43.7 % Normal 39.0-51.0 [facility] Comment on above: Order Comment: Speci men Type: BLOOD SPECIMENOrdering Facility: [facility] Address: [address] [place] [address] Performed By: #### 5 7021-8 ####[facility]ORATORYCLIA [id number] [place] [address] [place] Hemoglobin (Bld) [Mass/Vol] 14.7 g/dL Normal 13.0-17.0 [facility] Comment on above: Order Comment: Speci men Type: BLOOD SPECIMENOrdering Facility: [facility] Address: [address] [place] [address] Performed By: #### 5 7021-8 ####[facility]ATORYCLIA [id number] [place] [address] [place] Immature granulocytes (Bld) [#/Vol] 0.12 10*3/uL High <0.10 [facility] Comment on above: Order Comment: Speci men Type: BLOOD SPECIMENOrdering Facility: [facility] Address: [address] [place] [address] Performed By: #### 5 7021-8 ####[facility]ORATORYCLIA [id number] [place] [address] [place] Immature granulocytes/100 WBC (Bld) 0.7 % Normal [facility] Comment on above: Order Comment: Speci men Type: BLOOD SPECIMENOrdering Facility: [facility] Address: [address] [place] [address] Performed By: #### 5 7021-8 ####[facility]ORATORYCLIA [id number] [place] [address] [place] Lymphocytes (Bld) [#/Vol] 1.07 10*3/uL Normal 1.00-4.00 [facility] Comment on above: Order Comment: Speci men Type: BLOOD SPECIMENOrdering Facility: [facility] Address: [address] [place] [address] Performed By: #### 5 7021-8 ####[facility]ORATORYCLIA [id number] [address] Lymphocytes/100 WBC (Bld) 6.5 % Normal [facility] Comment on above: Order Comment: Speci men Type: BLOOD SPECIMENOrdering Facility: [facility] Address: [address] [place] [address] Performed By: #### 5 7021-8 ####[facility]ORATORYCLIA [id number] [address] [place] MCH (RBC) [Entitic mass] 30.1 pg Normal 26.0-34.0 [facility] Comment on above: Order Comment: Speci men Type: BLOOD SPECIMENOrdering Facility: [facility] Address: [address] [place] [address] Performed By: #### 5 7021-8 ####[facility]ORATORYCLIA [id number] [address] [place] MCHC (RBC) [Mass/Vol] 33.6 g/dL Normal 30.5-36.0 [facility] Comment on above: Order Comment: Speci men Type: BLOOD SPECIMENOrdering Facility: [facility] Address: [address] [place] [address] Performed By: #### 5 7021-8 ####[facility]ORATORYCLIA [id number] [address] MCV (RBC) [Entitic vol] 89.5 fL Normal 80.0-100.0 [facility] Comment on above: Order Comment: Speci men Type: BLOOD SPECIMENOrdering Facility: [facility] Address: [address] [place] [address] Performed By: #### 5 7021-8 ####[facility]ORATORYCLIA [id number] [address] [place] Monocytes (Bld) [#/Vol] 1.04 10*3/uL High <0.87 [facility] Comment on above: Order Comment: Speci men Type: BLOOD SPECIMENOrdering Facility: [facility] Address: [address] [place] [address] Performed By: #### 5 7021-8 ####[facility]ORATORYCLIA [id number] [address] [place] Monocytes/100 WBC (Bld) 6.3 % Normal [facility] Comment on above: Order Comment: Speci men Type: BLOOD SPECIMENOrdering Facility: [facility] Address: [address] [place] [address] Performed By: #### 5 7021-8 ####[facility]ORATORYCLIA [id number] [place] [address] [place] Neutrophils (Bld) [#/Vol] 13.58 10*3/uL High 1.45-7.50 [facility] Comment on above: Order Comment: Speci men Type: BLOOD SPECIMENOrdering Facility: [facility] Address: [address] [place] [address] Performed By: #### 5 7021-8 ####[facility]ORATORYCLIA [id number] [address] [place] Neutrophils/100 WBC (Bld) 82.7 % Normal [facility] Comment on above: Order Comment: Speci men Type: BLOOD SPECIMENOrdering Facility: [facility] Address: [address] [place] [address] Performed By: #### 5 7021-8 ####[facility]ORATORYCLIA [id number] [place] [address] [place] Nucleated RBC (Bld) [#/Vol] 10*3/uL Normal <0.01 [facility] Comment on above: Order Comment: Speci men Type: BLOOD SPECIMENOrdering Facility: [facility] Address: [address] [place] [address] Performed By: #### 5 7021-8 ####[facility]ORATORYCLIA [id number] [place] [address] [place] Nucleated RBC/100 WBC (Bld) [Ratio] 0.0 /100 WBC Normal [facility] Comment on above: Order Comment: Speci men Type: BLOOD SPECIMENOrdering Facility: [facility] Address: [facility] [place] [address] Performed By: #### 5 7021-8 ####[facility] LABORATORYCLIA [id number] [address] STATES [facility] Platelet mean volume (Bld) [Entitic vol] 11.4 fL Normal 9.0-12.7 [facility] Comment on above: Order Comment: Speci men Type: BLOOD SPECIMENOrdering Facility: [facility] Address: [address] [place] [address] Performed By: #### 5 7021-8 ####[facility]ORATORYCLIA [id number] [address] [place] Platelets (Bld) [#/Vol] 197 10*3/uL Normal 150-400 [facility] Comment on above: Order Comment: Speci men Type: BLOOD SPECIMENOrdering Facility: [facility] Address: [address] [place] [address] Performed By: #### 5 7021-8 ####[facility]ORATORYCLIA [id number] [place] [address] [place] RBC (Bld) [#/Vol] 4.88 10*6/uL Normal 4.20-6.00 [facility] Comment on above: Order Comment: Speci men Type: BLOOD SPECIMENOrdering Facility: [facility] Address: [facility] [place] [address] Performed By: #### 5 7021-8 ####[facility]ORATORYCLIA [id number] [address] [place] WBC (Bld) [#/Vol] 16.43 10*3/uL High 3.70-11.00 [facility] Comment on above: Order Comment: Speci men Type: BLOOD SPECIMENOrdering Facility: [facility] Address: [address] [place] [address] Performed By: #### 5 7021-8 ####[facility] LABORATORYCLIA [id number] [place] [id number] [facility] [place] Comprehensive metabolic 2000 panelon 02-26-2024 Albumin [Mass/Vol] 3.8 g/dL Low 3.9-4.9 [facility] Comment on above: Order Comment: Speci men Type: BLOOD SPECIMENOrdering Facility: [facility] Address: [address] [place] [address] Performed By: #### 2 4323-8, ####[facility]ORATORYCLIA [id number] [place] [address] [place] ALP [Catalytic activity/Vol] 72 U/L Normal 38-113 [facility] Comment on above: Order Comment: Speci men Type: BLOOD SPECIMENOrdering Facility: [facility] Address: [address] [place] [address] Performed By: #### 2 432-8, ####[facility] LABORATORYCLIA [id number] [address] [place] ALT [Catalytic activity/Vol] 9 U/L Low 10-54 [facility] Comment on above: Order Comment: Speci men Type: BLOOD SPECIMENOrdering Facility: [facility] Address: [address] [place] [address] Performed By: #### 2 432-8, ####[facility] LABORATORYCLIA [id number] [address] STATES [facility] Anion gap [Moles/Vol] 12 mmol/L Normal 8-15 [facility] Comment on above: Order Comment: Speci men Type: BLOOD SPECIMENOrdering Facility: [facility] Address: [address] [place] [address] Performed By: #### 2 432-8, ####[facility]ORATORYCLIA [id number] [address] [place] AST [Catalytic activity/Vol] 21 U/L Normal 14-40 [facility] Comment on above: Order Comment: Speci men Type: BLOOD SPECIMENOrdering Facility: [facility] Address: [address] [place] [address] Performed By: #### 2 4323-8, ####[facility]ORATORYCLIA [id number] [place] [address] [place] Bilirubin [Mass/Vol] 0.9 mg/dL Normal 0.2-1.3 [facility] Comment on above: Order Comment: Speci men Type: BLOOD SPECIMENOrdering Facility: [facility] Address: [address] [place] [address] Performed By: #### 2 4323-8, ####[facility]ORATORYCLIA [id number] [place] [address] [place] Calcium [Mass/Vol] 9.3 mg/dL Normal 8.5-10.2 [facility] Comment on above: Order Comment: Speci men Type: BLOOD SPECIMENOrdering Facility: [facility] Address: [address] [place] [address] Performed By: #### 2 432-8, ####[facility]ORATORYCLIA [id number] [place] [address] [place] Chloride [Moles/Vol] 101 mmol/L Normal 98-107 [facility] Comment on above: Order Comment: Speci men Type: BLOOD SPECIMENOrdering Facility: [facility] Address: [address] [place] [address] Performed By: #### 2 4328, ####[facility] LABORATORYCLIA [id number] [place] [address] [place] CO2 [Moles/Vol] 26 mmol/L Normal 22-30 [facility] Comment on above: Order Comment: Speci men Type: BLOOD SPECIMENOrdering Facility: [facility] Address: [address] [place] [address] Performed By: #### 2 4323-8, ####[facility] LABORATORYCLIA [id number] [place] [address] [place] Creatinine [Mass/Vol] 1.83 mg/dL High 0.73-1.22 [facility] Comment on above: Order Comment: Speci men Type: BLOOD SPECIMENOrdering Facility: [facility] Address: [address] [place] [address] Performed By: #### 2 4328, ####[facility] LABORATORYCLIA [id number] [place] [address] [place] Creatinine and Glomerular filtration rate.predicted panel (S/P/Bld) 35 mL/min/1.73m??? Low >=60 [facility] Comment on above: Order Comment: Jame amaya Type: BLOOD SPECIMENOrdering Facility: [facility] Address: [address] [place] [address] Result Comment: Radha mated Glomerular Filtration Rate (eGFR) is calculated using the 2020 CKD-EPI creatinine equation. This equation utilizes serum creatinine, sex, and age as parameters. The creatinine assay has traceable calibration to isotope dilution-mass spectrometry. Refer to KDIGO guidelines for clinical interpretation. In patients with unstable renal function, e.g. those with acute kidney injury, the eGFR may not accurately reflect actual GFR. Performed By: #### 2 43207-13, ####[facility]ORATORYCLIA [id number] [place] [id number] [place] Glucose [Mass/Vol] 114 mg/dL High 74-99 [facility] Comment on above: Order Comment: Jame amaya Type: BLOOD SPECIMENOrdering Facility: [facility] Address: [address] [place] [address] Result Comment: The [place] Diabetes Association (ADA) provides guidance for cutoff values for fasting glucose and random glucose. The ADA defines fasting as no caloric intake for at least 8 hours. Fasting plasma glucose results between 100 to 125 mg/dL indicate increased risk for diabetes (prediabetes). Fasting plasma glucose results greater than or equal to 126 mg/dL meet the criteria for diagnosis of diabetes. In the absence of unequivocal hyperglycemia, results should be confirmed by repeat testing. In a patient with classic symptoms of hyperglycemia or hyperglycemic crisis, random plasma glucose results greater than or equal to 200 mg/dL meet the criteria for diagnosis of diabetes. Reference: Standards of Medical Care in Diabetes 2016, [place] [employer] Association. Diabetes Care. 2016.39(Suppl 1). Performed By: #### 2 4323-8, ####[facility]ORATORYCLIA [id number] [place] [address] [place] Potassium [Moles/Vol] 4.3 mmol/L Normal 3.7-5.1 [facility] Comment on above: Order Comment: Speci men Type: BLOOD SPECIMENOrdering Facility: [facility] Address: [facility] [place] [id number] Performed By: #### 2 4323-8, ####[facility] LABORATORYCLIA [id number] [place] [address] [place] Protein [Mass/Vol] 6.7 g/dL Normal 6.3-8.0 [facility] Comment on above: Order Comment: Speci men Type: BLOOD SPECIMENOrdering Facility: [facility] Address: [address] [place] [address] Performed By: #### 2 4323-8, ####[facility]ORATORYCLIA [id number] [place] [address] [place] Sodium [Moles/Vol] 139 mmol/L Normal 136-144 [facility] Comment on above: Order Comment: Speci men Type: BLOOD SPECIMENOrdering Facility: [facility] Address: [address] [place] [address] Performed By: #### 2 4323-8, ####[facility] LABORATORYCLIA [id number] [place] [id number] [place] Urea nitrogen [Mass/Vol] 27 mg/dL High 9-24 [facility] Comment on above: Order Comment: Speci men Type: BLOOD SPECIMENOrdering Facility: [facility] Address: [address] [place] [address] Performed By: #### 2 4323-8, ####[facility]ORATORYCLIA [id number] [place] [address] [place] ED NOTEon 02-26-2024 ED NOTE HNO ID: [id number] Author: SHAY MARTIN RN Service: Nursing Author Type: Registered Nurse Type: ED Notes Filed: 02/26/2024 19:57 Note Text: RESIN MIXER is bedside Talking to the [facility] ED NOTE HNO ID: [id number] Author: SHAY MARTIN RN Service: Nursing Author Type: Registered Nurse Type: ED Notes Filed: 02/26/2024 18:16 Note Text: remains bedside pt is alert to self not to place and time He is cooperative with care [facility] ED NOTE HNO ID: [id number] Author: SHAY MARTIN RN Service: Nursing Author Type: Registered Nurse Type: ED Notes Filed: 02/26/2024 18:15 Note Text: Pt has voided per the urinal 60 cc dark gold/orange colored urine prior to the bladder scan [facility] ED NOTE HNO ID: [id number] Author: SHAY MARTIN RN Service: Nursing Author Type: Registered Nurse Type: ED Notes Filed: 02/26/2024 18:14 Note Text: Bladder scanned for 91 cc urine pt tolerated well [facility] ED NOTE HNO ID: [id number] Author: SHAY MARTIN RN Service: Nursing Author Type: Registered Nurse Type: ED Notes Filed: 02/26/2024 17:19 Note Text: is talking to son on the cell at the bedside [facility] ED NOTE HNO ID: [id number] Author: SHAY MARTIN RN Service: Nursing Author Type: Registered Nurse Type: ED Notes Filed: 02/26/2024 17:14 Note Text: Pt is alert to self not answering all questions is tearful at the bedside [facility] ED PROV NOTEon 02-26-2024 ED PROV NOTE HNO ID: [id number] Author: ULYSSES BROOKS MD Service: Emergency Medicine Author Type: Physician Type: ED Provider Notes Filed: 02/26/2024 19:03 Note Text: ED Provider Note Patient Name: Ayesha Jacobsen : 1935 SERVICE DATE: 02/26/24 History Patient presents with: Confused: Sent by PCP for eval of confusion. Recent admission for UTI. This is an 88-year-old with acute confusion. states that he has not drank much. He was admitted to the hospital approximately the last week. The patient had a CT of the head and CTA and MRI which were unremarkable. Patient had a UTI. His urine culture from 1017 grew out 3 organisms. The patient was on Cipro. The patient had a follow-up with Dr. Perez patient was sent here for further evaluation. Patient has a history of BPH and urinary retention. He had no coughing or congestion. No reported falls or trauma. PAST MEDICAL HISTORY Diagnosis Date Congenital tracheoesophageal fistula, esophageal atresia and stenosis Diverticulosis of colon with hemorrhage Essential hypertension 07/24/2017 GERD (gastroesophageal reflux disease) 07/24/2017 Stricture and stenosis of esophagus PAST SURGICAL HISTORY Procedure Laterality Date EGD FLEXIBLE FOREIGN BODY REMOVAL 07/24/13 distal stenosis ESOPHAGOSCOPY FLEX BALLOON DILAT <30 MM DIAM 06/27/2008 Esophageal dilatation ESOPHAGOSCOPY FLEX BALLOON DILAT <30 MM DIAM 07/25/08 ESOPHAGOSCOPY FLEXIBLE REMOVAL FOREIGN BODY 05/27/08 ER [facility] PAST SURGICAL HISTORY OF Mid COLON RESECTION REPAIR INGUINAL HERNIA Left 07/25/2017 FAMILY HISTORY Problem Relation Age of Onset Cancer Mother colon Cancer Father ? Social History Tobacco Use Smoking status: Former Current packs/day: 0.00 Average packs/day: 1 pack/day for 25.0 years (25.0 ttl pk-yrs) Types: Cigarettes Start date: 06/02/1952 Quit date: 06/02/1977 Years since quittin.7 Smokeless tobacco: Never Vaping Use Vaping status: Never Used Substance and Sexual Activity Alcohol use: No Drug use: No Sexual activity: Not on file ALLERGIES Allergen Reactions Eggs [Egg] Hives, Shortness of Breath Review of Systems Psychiatric/Behavioral: Positive for confusion. Physical Exam Vitals [02/26/24 1548] BP Pulse Temp Temp src Resp SpO2 Weight Height 105/88 70 36.7 ?C (98.1 ?F) Oral 16 98 % 66.7 kg (147 lb) -- Physical Exam Vitals and nursing note reviewed. Exam conducted with a audio engineer present. Constitutional: Comments: The patient is awake. He appears to be hard of hearing. He is oriented to name but not the place. Pupils are 4 to 5 mm. They are equal and round and reactive. Extraocular movements intact. Mouth is dry. Neck is supple. Lungs clear is no rales or wheezes. Cardiac's regular rate rhythm not murmurs. Soft nontender no rebound or guarding. There is no genital swelling. He is circumcised. No calf or thigh tenderness. Moves all extremities equally. He has 2+ radial and pedal pulses. The sensitive examination was discussed with the Patient or Patient's Authorized Picture Booker. As applicable, any other physician, advance practice provider, medical student, or other health professional student that will be observing or involved in the sensitive examination for educational or training purposes was discussed with the Patient or Authorized Picture Booker. The Patient or Authorized Picture Booker has agreed to proceed with the sensitive examination. (Sensitive examination includes inspection and/or palpation of the breasts, pelvis, prostate and anorectal regions) Diagnostic Testing ED Labs Ordered and Reviewed COMPREHENSIVE METABOLIC PANEL - Abnormal; Notable for the following components: Result Value Ref Range Albumin 3.8 (*) 3.9 - 4.9 g/dL ALT 9 (*) 10 - 54 U/L Glucose 114 (*) 74 - 99 mg/dL BUN 27 (*) 9 - 24 mg/dL Creatinine 1.83 (*) 0.73 - 1.22 mg/dL Estimated Glomerular Filtration Rate 35 (*) >=60 mL/min/1.73m? All other components within normal limits COMPLETE BLOOD COUNT AND DIFFERENTIAL - Abnormal; Notable for the following components: WBC 16.43 (*) 3.70 - 11.00 k/uL Abs Neut 13.58 (*) 1.45 - 7.50 k/uL Abs Hancock 1.04 (*) <0.87 k/uL Abs Eosin 0.56 (*) <0.46 k/uL Abs Immature Gran 0.12 (*) <0.10 k/uL All other components within normal limits URINALYSIS WITH MICROSCOPIC, REFLEX CULTURE - Abnormal; Notable for the following components: Clarity Slightly Cloudy (*) Clear Bilirubin, Urine 1+ (*) Negative Ketones, Urine Trace (*) Negative Specific [place], Ur >=1.030 (*) 1.005 - 1.030 Hemoglobin/Blood,Ur 3+ (*) Negative Protein, Urine 1+ (*) Negative WBC, Urine 6-10 /HPF (*) 0-5 /HPF RBC, Urine >25 /HPF (*) 0-3 /HPF All other components within normal limits MAGNESIUM - Normal SEPSIS LACTATE - Normal URINE CULTURE Procedures ED Course / Clinical Impression Clinical Impressions as of 02/26/24 190 Acute delirium ANDREWS (acute kidney inju (more content not included)... Normal [facility] ED Triage Noteon 02-26-2024 ED Triage Note HNO ID: [id number] Author: SANTA CRAVEN DO Service: Emergency Medicine Author Type: Physician Type: ED Triage Notes Filed: 02/26/2024 15:55 Note Text: ED INTAKE NOTE Patient Name: Ayesha Jacobsen Service Date: 02/26/24 BRIEF HPI: This is a 88 year old male who presents to the ED with: Patient had recent admission for UTI - still having urinary symptoms - went to PCP and wanted patient rechecked. They also report confusion - no focal neuro deficits. Patient had CT brain and CTA head and neck 02-21 that were unremarkable. Followup MRI 02-22 also unremarkable BRIEF EXAM: NAD Awake and Alert Non labored breathing BP 105/88 Pulse 70 Temp (Src) 98.1 (Oral) Resp 16 Wt 147 lb (66.7kg) SpO2 98% INITIAL WORKUP AND DECISION MAKING: Orders Placed This Encounter XR CHEST 2V FRONTAL/LAT COMP METABOLIC PANEL (BMP+LFT) MAGNESIUM BLD Single Sepsis Lactate CBC + DIFF Urinalysis w Microscopic, reflex Culture Provider examination performed via virtual platform with assistance from bedside clinician. SIGNATURE: Santa Craven DO Normal [facility] Magnesium SerPl-mCncon 02-25 Magnesium [Mass/Vol] 1.8 mg/dL Normal 1.7-2.3 [facility] Comment on above: Order Comment: Speci men Type: BLOOD SPECIMENOrdering Facility: [facility] Address: [address] [place] [address] Performed By: #### 2 4323-8, 80135-7 ####[facility]ORYCLIA [id number] [address] [facility] SEPSIS LACTATEon 02-26-2024 Lactate [Moles/Vol] 2.0 mmol/L Normal 0.5-2.0 [facility] Comment on above: Order Comment: Speci men Type: BLOOD SPECIMENOrdering Facility: [facility] Address: [address] [place] [address] Performed By: #### S LACT ####[facility]ORYCLIA [id number] [address] [place] Urinalysis complete panel (U )on 02-26-2024 Bilirubin Ql (U) 1+ Abnormal Negative [facility] Comment on above: Order Comment: Speci men Type: URINE SPECIMENOrdering Facility: [facility] Address: [address] [place] [address] Result Comment: Sugg est correlation with clinical findings and serum bilirubin if clinically indicated. Performed By: #### 2 4356-8 ####[facility]ORYCLIA [id number] [address] [place] Clarity (Unsp spec) Slightly Cloudy Abnormal Clear [facility] Comment on above: Order Comment: Speci men Type: URINE SPECIMENOrdering Facility: [facility] Address: [address] [place] [address] Performed By: #### 2 4356-8 ####[facility]ORYCLIA [id number] [place] [address] [place] Color (U) Yellow Normal Yellow [facility] Comment on above: Order Comment: Speci men Type: URINE SPECIMENOrdering Facility: [facility] Address: [address] [place] [address] Performed By: #### 2 4356-8 ####[facility]ORYCLIA [id number] [address] [place] Glucose Test strip (U) [Mass/Vol] Negative Normal Negative [facility] Comment on above: Order Comment: Speci men Type: URINE SPECIMENOrdering Facility: [facility] Address: [address] [place] [address] Performed By: #### 2 4356-8 ####[facility]ORYCLIA [id number] [place] [address] [place] Hemoglobin Ql (U) 3+ Abnormal Negative [facility] Comment on above: Order Comment: Speci men Type: URINE SPECIMENOrdering Facility: [facility] Address: [address] [place] [address] Performed By: #### 2 4356-8 ####[facility]ORYCLIA [id number] [address] [place] Ketones Ql (U) Trace Abnormal Negative [facility] Comment on above: Order Comment: Speci men Type: URINE SPECIMENOrdering Facility: [facility] Address: [address] [place] [address] Performed By: #### 2 4356-8 ####[facility]ORYCLIA [id number] [address] Leukocyte esterase Test strip Ql (U) Negative Normal Negative [facility] Comment on above: Order Comment: Speci men Type: URINE SPECIMENOrdering Facility: [facility] Address: [address] [place] [address] Performed By: #### 2 4356-8 ####[facility]ORYCLIA [id number] [address] [place] Nitrite Ql (U) Negative Normal Negative [facility] Comment on above: Order Comment: Speci men Type: URINE SPECIMENOrdering Facility: [facility] Address: [address] [place] [address] Performed By: #### 2 4356-8 ####[facility]ORYCLIA [id number] [address] [place] pH (U) 5.5 [pH] Normal 5.0-8.0 [facility] Comment on above: Order Comment: Speci men Type: URINE SPECIMENOrdering Facility: [facility] Address: [address] [place] [address] Performed By: #### 2 4356-8 ####[facility]ATORYCLIA [id number] [address] STATES [facility] Protein (U) [Mass/Vol] 1+ Abnormal Negative [facility] Comment on above: Order Comment: Speci men Type: URINE SPECIMENOrdering Facility: [facility] Address: [address] [place] [address] Performed By: #### 2 4356-8 ####[facility]ORYCLIA [id number] [place] [address] [place] RBC LM.HPF (Urine sed) [#/Area] /[HPF] Abnormal 0-3 /HPF [facility] Comment on above: Order Comment: Speci men Type: URINE SPECIMENOrdering Facility: [facility] Address: [address] [place] [address] Performed By: #### 2 4356-8 ####[facility]ORYCLIA [id number] [address] Specific gravity (U) [Rel density] >=1.030 High 1.005-1.03 0 [facility] Comment on above: Order Comment: Speci men Type: URINE SPECIMENOrdering Facility: [facility] Address: [address] [place] [address] Performed By: #### 2 4356-8 ####[facility]ORYCLIA [id number] [address] Urobilinogen Ql (U) 0.2 EU/dL Normal 0.2-1.0 EU/dL [facility] Comment on above: Order Comment: Speci men Type: URINE SPECIMENOrdering Facility: [facility] Address: [address] [place] [address] Performed By: #### 2 4356-8 ####[facility] CENTERCLIA [id number] [address] WBC LM.HPF (Urine sed) [#/Area] 6-10 /HPF Abnormal 0-5 /HPF [facility] Comment on above: Order Comment: Speci men Type: URINE SPECIMENOrdering Facility: [facility] Address: [address] [place] [address] Performed By: #### 2 4356-8 ####[facility]ORYCLIA [id number] [address] XR CHEST 2V FRONTAL/LATon XR CHEST 2V FRONTAL/LAT * * *Final Report* * * DATE OF EXAM: Feb 26 2024 4:37PM MDX 5291 - XR CHEST 2V FRONTAL/LAT / PROCEDURE REASON: Other * * * * Physician Interpretation * * * * EXAMINATION: CHEST RADIOGRAPH (2 VIEW FRONTAL and LATERAL) CLINICAL HISTORY: Other, weakness MQ: XC2_6 EXAM DATE/TIME: 02/26/2024 4:37 PM COMPARISON: 02/22/2024 RESULT: Lines, tubes, and devices: None. Lungs and pleura: No consolidation. No lung mass. No pleural effusion. No pneumothorax. Stable linear atelectasis or fibrosis at the left base Cardiomediastinal silhouette: Normal cardiomediastinal silhouette. Bones and soft tissues: Unremarkable. IMPRESSION: No developing abnormality or acute process Machine Bobbin Winder: KIERSTEN Transcribe Date/Time: Feb 26 2024 4:48P Dictated by : MALU LOPES MD This examination was interpreted and the report reviewed and electronically signed by: MALU LOPES MD on Feb 26 2024 4:49PM EST [id number] Normal [facility] CNDSon 02-24-2024 CNDS HNO ID: [id number] Author: DANIEL PEREZ MD Service: Family Practice Author Type: Physician Type: Discharge Summary Filed: 02/26/2024 08:17 Note Text: DISCHARGE SUMMARY PATIENT NAME: Ayesha Jacobsen Code Status: Prior Highest Readmission Risk Score: 8 The 30 day readmissions risk score is derived from an internally validated risk model which evaluates patient level characteristics, utilization history, medication orders and lab results up until the day of discharge. Patients with a score of 40 or above are considered highest risk for readmission. Specific patient level drivers will be listed at the bottom of the summary. Admission Information Admission Information ADMIT DATE: 02/22/2024 DISCHARGE DATE: 02/24/2024 MY DOCTORS AND MEDICAL TEAM: My Main Hospital Doctor: Daniel Perez MD Primary Care Provider: Daniel Perez MD My Medical Team Members: Treatment Team: Attending Provider: Daniel Perez MD MY CONDITION AT DISCHARGE: Stable REASON I WAS IN THE HOSPITAL: dizziness SUMMARY OF WHAT HAPPENED WHILE I WAS IN THE HOSPITAL: you were seen in [place] ER for episode of dizziness and found to have urinary retention and UTI. Esteves placed, transfer to [place] for MRI to r/o stroke. Your MRI was negative. Esteves was removed. Antibiotics sent to in [place] OTHER PROBLEMS/DIAGNOSIS: Principal Problem: Dizziness Active Problems: Primary hypertension BPH (benign prostatic hyperplasia) Acute on chronic urinary retention Weakness Dizziness, nonspecific Resolved Problems: * No resolved hospital problems. * OPERATIONS PERFORMED WHILE IN THE HOSPITAL: None IMPORTANT TEST/PROCEDURES: No procedures performed TEST RESULTS NOT AVAILABLE AT THIS TIME: No pending results Discharge Disposition Discharge Disposition: Home With Self Care Activity When You Leave the Hospital Resume pre-hospital activity Diet Instructions Resume your pre-hospital diet Call Your Doctor If Your temperature is greater than 101F Follow Up Appointments Follow-Up Appointment When: In 1 week Patient/Parents to call for appointment?: Yes Daniel Perez MD [phone] [facility] [address] [place] [address] PCP Requested Referral GENERAL: alert, no distress, cooperative SKIN: No rashes or lesions. OROPHARYNX: Oropharynx normal. NECK: no jugulovenous distention, supple LUNGS: Lungs clear to auscultation. CARDIAC: normal S1 and S2; no rubs, murmurs, or gallops ABDOMEN: Abdomen soft, non-tender. BS normal. No masses or organomegaly. EXTREMETIES: No deformities, cyanosis, edema, clubbing or skin discoloration. NEURO: Alert, oriented X 3, Gait normal. Motor and Sensation grossly intact., FOLLOW-UP APPOINTMENTS ALREADY SCHEDULED WITH A [facility] PROVIDER: Future Appointments Date Time Provider Department Center 03/12/2024 11:30 AM Karen Tiwari APRN.INSTRUCTIONAL SYSTEMS SPECIALIST [facility] 07/15/2024 10:30 AM ECHOCARDIOGRAM WSTR CARDMARCELINO [facility] 07/22/2024 3:20 PM Fabricio Hall MD CAWSTR [facility] ALLERGIES Allergen Reactions Eggs [Egg] Hives, Shortness of Breath DISCHARGE MEDICATION: Medication List START taking these medications ciprofloxacin HCl 500 mg tablet Commonly known as: CIPRO Take 1 tablet by mouth two times a day for 5 days. meclizine 25 mg Tab Commonly known as: ANTIVERT Take 1 tablet by mouth three times a day as needed. CONTINUE taking these medications ALEVE PM ORAL lisinopril 10 mg tablet Commonly known as: ZESTRIL Take 1 tablet by mouth once daily. PRILOSEC ORAL tamsulosin 0.4 mg Commonly known as: FLOMAX VITAMIN B-12 ORAL Where to Get Your Medications These medications were sent to [facility] [place] [address] - [address] - [phone] [address] [place] [address] ciprofloxacin HCl 500 mg tablet meclizine 25 mg Tab The patient's risk for 30-day readmission is determined using the following contributing factors: Pt variables contributing to increased readmission risk: 14 Most Recent BUN Result 8.9 First Resulted Calcium During Admission 1 Previous ED Visit (6 mos.)? 1 Number of Previous ED Visits (6 mos.) 1 Insurance - Medicare 1 Discharge Disposition - Home Plan of care discussed with Provider, RN, Patient I have performed the tqln-wy-sdma and relevant services for a total of < 30 minutes. SIGNATURE: Daniel Perez MD DATE: February 26, 2024 TIME: 8:16 AM Normal [facility] ALLIED HEALTHon 02-23-2024 ALLIED HEALTH HNO ID: [id number] Author: MARIAN MUHAMMAD CT Service: Radiology Author Type: Logistics Operations Director Type: Allied Health Filed: 02/23/2024 11:48 Note Text: Radiology Service Progress Note PATIENT NAME: Ayesha Jacobsen DATE OF SERVICE: February 23, 2024 TIME: 11:44 AM PATIENT IDENTITY VERIFICATION COMPLETED USING TWO (2) IDENTIFIERS: Name and Date of confirmed by patient verbally. FALL SCREENING: Has the patient had 2 falls in the last year or 1 fall with injury or currently using an Ambulatory Assistive Device (Walker, Cane, Wheelchair, Crutches, etc.)? Inpatient: Screened on floor PATIENT GENDER DATA: Male PATIENT RELEVANT IMPLANT DATA REVIEWED: Yes PATIENT PRESENTS WITH AN IMPLANTABLE OR ATTACHED CLERK: No RADIOLOGY DEPARTMENT: MR; Exam(s) Completed: Head: Routine Brain PERIPHERAL IV DATA: Not applicable SIGNED BY: MELANIE Zafar February 23, 2024 11:44 AM [facility] CBC panel Auto (Bld)on 02-22 Erythrocyte distribution width (RBC) [Ratio] 13.7 % Normal 11.5-15.0 [facility] Comment on above: Order Comment: Jame amaya Type: BLOOD SPECIMENOrdering Facility: [facility] Address: [address] [place] [address] Performed By: #### 5 8410-2 ####[facility]ORYCLIA [id number] [place] [address] [place] Hematocrit (Bld) [Volume fraction] 43.3 % Normal 39.0-51.0 [facility] Comment on above: Order Comment: Jame amaya Type: BLOOD SPECIMENOrdering Facility: [facility] Address: [address] [place] [address] Performed By: #### 5 8410-2 ####[facility]ORYCLIA [id number] [address] Hemoglobin (Bld) [Mass/Vol] 14.2 g/dL Normal 13.0-17.0 [facility] Comment on above: Order Comment: Speci men Type: BLOOD SPECIMENOrdering Facility: [facility] Address: [address] [place] [address] Performed By: #### 5 8410-2 ####[facility]ATORYCLIA [id number] [address] MCH (RBC) [Entitic mass] 29.5 pg Normal 26.0-34.0 [facility] Comment on above: Order Comment: Speci men Type: BLOOD SPECIMENOrdering Facility: [facility] Address: [address] [place] [address] Performed By: #### 5 8410-2 ####[facility]ATORYCLIA [id number] [address] MCHC (RBC) [Mass/Vol] 32.8 g/dL Normal 30.5-36.0 [facility] Comment on above: Order Comment: Speci men Type: BLOOD SPECIMENOrdering Facility: [facility] Address: [address] [place] [address] Performed By: #### 5 8410-2 ####[facility]ORYCLIA [id number] [address] MCV (RBC) [Entitic vol] 89.8 fL Normal 80.0-100.0 [facility] Comment on above: Order Comment: Speci men Type: BLOOD SPECIMENOrdering Facility: [facility] Address: [address] [place] [address] Performed By: #### 5 8410-2 ####[facility]ORYCLIA [id number] [address] Nucleated RBC (Bld) [#/Vol] 10*3/uL Normal <0.01 [facility] Comment on above: Order Comment: Speci men Type: BLOOD SPECIMENOrdering Facility: [facility] Address: [address] [place] [address] Performed By: #### 5 8410-2 ####[facility]ATORYCLIA [id number] [place] [address] [place] Platelet mean volume (Bld) [Entitic vol] 11.0 fL Normal 9.0-12.7 [facility] Comment on above: Order Comment: Speci men Type: BLOOD SPECIMENOrdering Facility: [facility] Address: [address] [place] [address] [place] [address] Performed By: #### 5 8410-2 ####[facility]ATORYCLIA [id number] [place] [address] [place] Platelets (Bld) [#/Vol] 199 10*3/uL Normal 150-400 [facility] Comment on above: Order Comment: Speci men Type: BLOOD SPECIMENOrdering Facility: [facility] Address: [address] [place] [address] Performed By: #### 5 8410-2 ####[facility]ATORYCLIA [id number] [place] [address] [place] RBC (Bld) [#/Vol] 4.82 10*6/uL Normal 4.20-6.00 [facility] Comment on above: Order Comment: Speci men Type: BLOOD SPECIMENOrdering Facility: [facility] Address: [address] [place], [place] [address] [address] Performed By: #### 5 8410-2 ####[facility]ORATORYCLIA [id number] [place] [address] [place] WBC (Bld) [#/Vol] 9.45 10*3/uL Normal 3.70-11.00 [facility] Comment on above: Order Comment: Speci men Type: BLOOD SPECIMENOrdering Facility: [facility] Address: [address] [place] [address] Performed By: #### 5 8410-2 ####[facility]ORATORYCLIA [id number] [place] [id number] [facility] [place] Elvis 02-23-2024 FRANCESN Telephone Exhibia) -- SHIREENAYESHA JUAREZ ([id number]) 1935 M Date Time Provider Department 02/23/24 MARY LYNN During your visit today, we recorded the following information about you: Ronda Garcia LPN 02/23/2024 9:36 AM Signed Patient was scheduled for in person [facility] appt at 920am today. Patient did not check in for appt. Looks like patient is admitted in [facility]. Ronda Garcia LPN Allergies As of Date: 02/23/2024 Noted Allergy Reaction EGGS (EGG) 12/14/2015 4 - Hives 12 - Shortness of Breath Date Reviewed: 02/23/2024 Reviewed by: Roger Ribeiro, MADONNA - Fully Assessed Prescriptions as of 02/28/2024 - meclizine (ANTIVERT) 25 mg tab Take 1 tablet by mouth three times a day as needed. - ciprofloxacin HCl (CIPRO) 500 mg tablet Take 1 tablet by mouth two times a day for 5 days. - naproxen sod/diphenhydramine (ALEVE PM ORAL) Take 2 tablets by mouth as needed (pain). - lisinopril (ZESTRIL) 10 mg tablet Take 1 tablet by mouth once daily. - tamsulosin (FLOMAX) 0.4 mg Take 1 capsule by mouth every afternoon. - cyanocobalamin, vitamin B-12, (VITAMIN B-12 ORAL) B-12 CAPS - OMEPRAZOLE (PRILOSEC ORAL) Take 20 mg by mouth daily at 6 am. Facility-Administered Medications as of 02/28/2024 - NaCl 0.9% iv flush bag - iv contrast (radiology procedure) - levETIRAcetam 500 mg injection (KEPPRA) - cefTRIAXone iv piggyback 1 g in dextrose (iso-osmotic) 50 mL (ROCEPHIN) - meclizine 25 mg tab(s) (ANTIVERT) - tamsulosin 0.4 mg cap(s) (FLOMAX) - pantoprazole DR 20 mg tab(s) (PROTONIX) - NaCl 0.9% iv infusion Problem List As Of Date 02/23/2024 Noted Resolved Esophageal foreign body [T18.108A] 07/25/2013 07/24/2017 Left inguinal hernia [K40.90] 07/19/2017 Primary hypertension [I10] 07/24/2017 GERD (gastroesophageal reflux disease) [K21.9] 07/24/2017 Aortic valve disorder [I35.9] 11/10/2023 BPH (benign prostatic hyperplasia) [N40.0] 11/10/2023 Former smoker [Z87.891] 11/10/2023 Esophageal stricture [K22.2] 11/10/2023 Asthma [J45.909] 11/10/2023 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 New Patient: I'm a licensed provider in the state of [place]. I want to confirm your location in [place]. Virtual visits are a convenient way for us to meet for the first time, but there are some situations in which an in-person evaluation may be required at a later time. I want to check in to confirm your consent to be seen virtually today. The Teleneurologist or ARISTEO is available from 8 am to 5 pm on WEEKDAYS. Rounding hours are: [place]: 12 pm to 5 pm [place]: 1 pm to 4:30 pm [place]: 8 am to 12 pm [place]: 8 am to 10 am [place]: 1 pm to 5 pm [place]: 1 pm to 5 pm [facility]: 10 am to 12 pm During weekends, coverage is only during rounding hours. [place]: 1 pm to 5 pm [place]: 8 am to 12 pm [place]: 8 am to 12 pm [place]: 10 am to 12 pm [place]: 1 pm to 5 pm [place]: 1 pm to 5 pm [facility]: 8 am to to 12 pm Statutory holidays do not have teleneuro coverage. [place]: During Off hours for Teleneurology please page (not call) [place] [facility] [phone] content manager for concerns. [place]: During Off hours for Teleneurology please page (not call) [place] [facility] [phone] content manager for concerns. [facility]: There is no off-hours coverage for Teleneurology. Name: Ayesha Jacobsen Age: [age] year old Gender: male Chief Complaint:No chief complaint on file. Admission Date: 02/22/2024 Consult Requested By: Daniel Perez MD, recommendations will be communicated by shared medical record. HPI: Ayesha is an 88 year old right handed male with h/o congenital esophageal atresia and stenosis, diverticulosis, HTN, reflex, esophageal stricture presenting with dizziness. History from patient. Dizziness started 2-3 days,described as spinning sensation, triggered by 'quick movements' - turning head, no accompanying symptoms, may last for 1-2 minutes. Dizziness yesterday was worse - felt objects were moving , lasted for a few minutes. He denies having any new numbness/tingling/weakness /slurring of speech/word finding difficulty/double vision. Patient does not takes antiplatelets or statins prior to admission. There is no history of smoking, ETOH, or drug use. Review of Systems General: no wt. loss/gain, change in appetite, fever, malaise HEENT: no headache, problems with vision, hearing Cardiac: no chest pain, palpitation Respiratory: no shortness of breath, cough, cold GI: no change in bowel habits, abdominal pain : no incontinence, frequency, urgency Musculoskeletal: no joint/muscle pain, no swelling Skin: no rash Endocrine: no cold/hot intolerance, thyroid, diabetes Immunologic: no known immunologic disorders Neurologic/Psychiatric: no other known neurologic or psychiatric problems ACTIVE PROBLEM LIST Left Inguinal Hernia Primary Hypertension Gerd (Gastroesophageal Reflux Disease) Aortic Valve Disorder Bph (Benign Prostatic Hyperplasia) Former Smoker Esophageal Stricture Asthma Nonrheumatic Aortic Valve Stenosis Acute On Chronic Urinary Retention Dizziness Weakness Dizziness, Nonspecific PAST MEDICAL HISTORY Diagnosis Date Congenital tracheoesophageal fistula, esophageal atresia and stenosis Diverticulosis of colon with hemorrhage Essential hypertension 07/24/2017 GERD (gastroesophageal reflux disease) 07/24/2017 Stricture and stenosis of esophagus Medications: Reviewed Current Facility-Administered Medications Medication Dose Route Frequency Provider Last Rate Last Admin lisinopril 10 mg tab(s) (ZESTRIL) 10 mg ORAL Daily (3 PM) Susana Bello APRN.INSTRUCTIONAL SYSTEMS SPECIALIST tamsulosin 0.4 mg cap(s) (FLOMAX) 0.4 mg ORAL AT BEDTIME Susana Bello APRN.INSTRUCTIONAL SYSTEMS SPECIALIST pantoprazole DR 20 mg tab(s) (PROTONIX) 20 mg ORAL DAILY (6 AM) Susana Bello APRN.INSTRUCTIONAL SYSTEMS SPECIALIST 20 mg at 02/23/24 0550 cyanocobalamin 1,000 mcg tab(s) (VITAMIN B-12) 1,000 mcg ORAL DAILY Susana Bello APRN.INSTRUCTIONAL SYSTEMS SPECIALIST meclizine 25 mg tab(s) (ANTIVERT) 25 mg ORAL TID PRN Susana Bello APRN.INSTRUCTIONAL SYSTEMS SPECIALIST cefTRIAXone iv piggyback 1 g in dextrose (iso-osmotic) 50 mL (ROCEPHIN) 1 g INTRAVENOUS q 24 H Susana Bello APRN.INSTRUCTIONAL SYSTEMS SPECIALIST ALLERGIES Allergen Reactions Eggs [Egg] Hives, Shortness of Breath FAMILY HISTORY Problem Relation Age of Onset Cancer Mother colon Cancer Father ? PAST SURGICAL HISTORY Procedure Laterality Date EGD FLEXIBLE FOREIGN BODY REMOVAL 07/24/13 distal stenosis ESOPHAGOSCOPY FLEX BALLOON DILAT <30 MM DIAM 06/27/2008 Esophageal dilatation ESOPHAGOSCOPY FLEX BALLOON DILAT <30 MM DIAM 07/25/08 ESOPHAGOSCOPY FLEXIBLE REMOVAL FOREIGN BODY 05/27/08 ER [facility] PAST SURGICAL HISTORY OF Mid COLON RESECTION REPAIR INGUINAL HERNIA Left 07/25/2017 Tobacco Use: Medium Ri (more content not included)... Normal [facility] CONSULT PROGon 02-23-2024 CONSULT PROG HNO ID: [id number] Author: MICHELLE SANTOS MD Service: Neurology General Author Type: Physician Type: Consult Progress Note Filed: 02/23/2024 14:55 Note Text: Plan of Care: MRI brain - 02/23/24 No acute infarct or acute intracranial process. Chronic changes as detailed. MRI showed no acute stroke. Consider vestibular rehab OP. Teleneurology will not follow this patient. Please call for additional assistance. SIGNATURE: Michelle Santos MD PATIENT NAME: Ayesha Jacobsen DATE: February 23, 2024 TIME: 2:53 PM PAGER/CONTACT #: Normal [facility] Comprehensive metabolic 2000 panelon 02-23-2024 Albumin [Mass/Vol] 3.6 g/dL Low 3.9-4.9 [facility] Comment on above: Order Comment: Speci men Type: BLOOD SPECIMENOrdering Facility: [facility] Address: [address] [place] [address] Performed By: #### 2 4323-8 ####[facility]ORY[facility]IA [id number] [address] ALP [Catalytic activity/Vol] 72 U/L Normal 38-113 [facility] Comment on above: Order Comment: Speci men Type: BLOOD SPECIMENOrdering Facility: [facility] Address: [address] [place] [address] Performed By: #### 2 4323-8 ####[facility]ORYCLIA [id number] [address] ALT [Catalytic activity/Vol] 5 U/L Low 10-54 [facility] Comment on above: Order Comment: Speci men Type: BLOOD SPECIMENOrdering Facility: [facility] Address: [address] [place] [address] Performed By: #### 2 4323-8 ####[facility]ORYCLIA [id number] [address] Anion gap [Moles/Vol] 7 mmol/L Low 8-15 [facility] Comment on above: Order Comment: Speci men Type: BLOOD SPECIMENOrdering Facility: [facility] Address: [address] [place] [address] Performed By: #### 2 4323-8 ####[facility]ORYCLIA [id number] [place] [address] [place] AST [Catalytic activity/Vol] 14 U/L Normal 14-40 [facility] Comment on above: Order Comment: Speci men Type: BLOOD SPECIMENOrdering Facility: [facility] Address: [address] [place] [address] Performed By: #### 2 4323-8 ####[facility]ORYCLIA [id number] [place] [address] [place] Bilirubin [Mass/Vol] 0.5 mg/dL Normal 0.2-1.3 [facility] Comment on above: Order Comment: Speci men Type: BLOOD SPECIMENOrdering Facility: [facility] Address: [address] [place] [address] Performed By: #### 2 4323-8 ####[facility]ORYCLIA [id number] [address] [place] Calcium [Mass/Vol] 8.9 mg/dL Normal 8.5-10.2 [facility] Comment on above: Order Comment: Speci men Type: BLOOD SPECIMENOrdering Facility: [facility] Address: [address] [place] [address] Performed By: #### 2 4323-8 ####[facility]ORYCLIA [id number] [address] [place] Chloride [Moles/Vol] 109 mmol/L High 98-107 [facility] Comment on above: Order Comment: Speci men Type: BLOOD SPECIMENOrdering Facility: [facility] Address: [address] [place] [address] Performed By: #### 2 4323-8 ####[facility]ATORYCLIA [id number] [place] [address] [place] CO2 [Moles/Vol] 27 mmol/L Normal 22-30 [facility] Comment on above: Order Comment: Speci men Type: BLOOD SPECIMENOrdering Facility: [facility] Address: [address] [place] [address] Performed By: #### 2 4323-8 ####[facility]ORYCLIA [id number] [address] [place] Creatinine [Mass/Vol] 1.00 mg/dL Normal 0.73-1.22 [facility] Comment on above: Order Comment: Jame amaya Type: BLOOD SPECIMENOrdering Facility: [facility] Address: [address] [place] [address] Performed By: #### 2 4323-8 ####[facility]ATORYCLIA [id number] [address] Creatinine and Glomerular filtration rate.predicted panel (S/P/Bld) 73 mL/min/1.73m??? Normal >=60 [facility] Comment on above: Order Comment: Jame amaya Type: BLOOD SPECIMENOrdering Facility: [facility] Address: [address] [place] [address] Result Comment: Radha mated Glomerular Filtration Rate (eGFR) is calculated using the 2020 CKD-EPI creatinine equation. This equation utilizes serum creatinine, sex, and age as parameters. The creatinine assay has traceable calibration to isotope dilution-mass spectrometry. Refer to KDIGO guidelines for clinical interpretation. In patients with unstable renal function, e.g. those with acute kidney injury, the eGFR may not accurately reflect actual GFR. Performed By: #### 2 4323-8 ####[facility]ORYCLIA [id number] [address] STATES OF [facility] Glucose [Mass/Vol] 83 mg/dL Normal 74-99 [facility] Comment on above: Order Comment: Jame amaya Type: BLOOD SPECIMENOrdering Facility: [facility] Address: [address] [place] [address] Result Comment: The [place] Diabetes Association (ADA) provides guidance for cutoff values for fasting glucose and random glucose. The ADA defines fasting as no caloric intake for at least 8 hours. Fasting plasma glucose results between 100 to 125 mg/dL indicate increased risk for diabetes (prediabetes). Fasting plasma glucose results greater than or equal to 126 mg/dL meet the criteria for diagnosis of diabetes. In the absence of unequivocal hyperglycemia, results should be confirmed by repeat testing. In a patient with classic symptoms of hyperglycemia or hyperglycemic crisis, random plasma glucose results greater than or equal to 200 mg/dL meet the criteria for diagnosis of diabetes. Reference: Standards of Medical Care in Diabetes 2016, [place] [employer] Association. Diabetes Care. 2016.39(Suppl 1). Performed By: #### 2 4323-8 ####[facility]ATORYCLIA [id number] [address] Potassium [Moles/Vol] 4.2 mmol/L Normal 3.7-5.1 [facility] Comment on above: Order Comment: Speci men Type: BLOOD SPECIMENOrdering Facility: [facility] Address: [address] [place] [address] Performed By: #### 2 4323-8 ####[facility]ATORYCLIA [id number] [address] [place] Protein [Mass/Vol] 6.2 g/dL Low 6.3-8.0 [facility] Comment on above: Order Comment: Speci men Type: BLOOD SPECIMENOrdering Facility: [facility] Address: [address] [place] [address] Performed By: #### 2 4323-8 ####[facility]ATORYCLIA [id number] [address] Sodium [Moles/Vol] 143 mmol/L Normal 136-144 [facility] Comment on above: Order Comment: Ruperti men Type: BLOOD SPECIMENOrdering Facility: [facility] Address: [address] [place] [address] Performed By: #### 2 4323-8 ####[facility]ATORYCLIA [id number] [address] [place] Urea nitrogen [Mass/Vol] 14 mg/dL Normal 9-24 [facility] Comment on above: Order Comment: Speci men Type: BLOOD SPECIMENOrdering Facility: [facility] Address: [address] [place] [address] Performed By: #### 2 4323-8 ####[facility]ATORYCLIA [id number] [place] [address] [place] HISTORY PHYSICALon 4 HISTORY PHYSICAL HNO ID: [id number] Author: DANIEL PEREZ MD Service: Family Practice Author Type: Physician Type: H&P Filed: 02/23/2024 06:49 Note Text: HISTORY AND PHYSICAL EXAMINATION - INTERNAL MEDICINE PATIENT NAME: Ayesha Jacobsen SERVICE DATE: 02/23/2024 SERVICE TIME: 6:33 AM PRIMARY CARE PHYSICIAN: Daniel Perez MD ASSESSMENT AND PLAN Principal Problem: Dizziness (POA: Yes) Assessment AND Plan: given antivert in ER MRI here is ordered Active Problems: Primary hypertension (POA: Yes) Assessment AND Plan: home meds BPH (benign prostatic hyperplasia) (POA: Yes) Assessment AND Plan: 1000cc urine retention Rocephin started Follow culture Acute on chronic urinary retention (POA: Yes) Assessment AND Plan: as above Weakness (POA: Yes) Dizziness, nonspecific (POA: Yes) Resolved Problems: * No resolved hospital problems. * SUBJECTIVE CHIEF COMPLAINT: dizziness HISTORY OF PRESENT ILLNESS: Mr. Jacobsen is a 88 year old male who presents with PMHx HTN, GERD, and congenital tracheoesophageal fistula, stricture and stenosis of esophagus who presented to [place] ER with weakness and dizziness that started 1 week ago and yesterday became worse. He just started using a cane. He states a spinning sensation with mild nausea, but none currently. Denies fevers, confusion, cp, sob, abdominal pain,decreased sensation, no stroke-like symptoms.Esteves was placed at [place] ER for retention; had immediately 1000ml out. He was started on rocephin for UTI, given antivert, pyridium, and 1L NS bolus. Transfer from [place] for MRI PAST MEDICAL HISTORY: PAST MEDICAL HISTORY Diagnosis Date Congenital tracheoesophageal fistula, esophageal atresia and stenosis Diverticulosis of colon with hemorrhage Essential hypertension 07/24/2017 GERD (gastroesophageal reflux disease) 07/24/2017 Stricture and stenosis of esophagus PAST SURGICAL HISTORY: PAST SURGICAL HISTORY Procedure Laterality Date EGD FLEXIBLE FOREIGN BODY REMOVAL 07/24/13 distal stenosis ESOPHAGOSCOPY FLEX BALLOON DILAT <30 MM DIAM 06/27/2008 Esophageal dilatation ESOPHAGOSCOPY FLEX BALLOON DILAT <30 MM DIAM 07/25/08 ESOPHAGOSCOPY FLEXIBLE REMOVAL FOREIGN BODY 05/27/08 ER [facility] PAST SURGICAL HISTORY OF Mid COLON RESECTION REPAIR INGUINAL HERNIA Left 07/25/2017 FAMILY HISTORY: FAMILY HISTORY Problem Relation Age of Onset Cancer Mother colon Cancer Father ? SOCIAL HISTORY: Social History Tobacco Use Smoking status: Former Current packs/day: 0.00 Average packs/day: 1 pack/day for 25.0 years (25.0 ttl pk-yrs) Types: Cigarettes Start date: 06/02/1952 Quit date: 06/02/1977 Years since quittin.7 Smokeless tobacco: Never Vaping Use Vaping status: Never Used Substance Use Topics Alcohol use: No Drug use: No MEDICATIONS: naproxen sod/diphenhydramine (ALEVE PM ORAL), Take 2 tablets by mouth as needed (pain)., Disp: , Rfl: , Unknown lisinopril (ZESTRIL) 10 mg tablet, Take 1 tablet by mouth once daily., Disp: 30 tablet, Rfl: 4, 02/21/2024 at 1800 tamsulosin (FLOMAX) 0.4 mg, Take 1 capsule by mouth every afternoon., Disp: , Rfl: , 02/21/2024 at 1800 cyanocobalamin, vitamin B-12, (VITAMIN B-12 ORAL), B-12 CAPS, Disp: , Rfl: , Unknown OMEPRAZOLE (PRILOSEC ORAL), Take 20 mg by mouth daily at 6 am., Disp: , Rfl: , 02/22/2024 at 0600 ALLERGIES: ALLERGIES Allergen Reactions Eggs [Egg] Hives, Shortness of Breath COMPLETE REVIEW OF SYSTEMS: GENERAL: No weight loss, malaise or fevers HEENT: Negative for frequent or significant headaches, No changes in hearing or vision, no nose bleeds or other nasal problems NECK: Negative for lumps, goiter, pain and significant neck swelling RESPIRATORY: Negative for cough, wheezing or shortness of breath. CARDIOVASCULAR: Negative for chest pain, leg swelling or palpitations. GI: Negative for abdominal discomfort, blood in stools or black stools or change in bowel habits : No history of dysuria, frequency or incontinence MUSCULOSKELETAL: Negative for joint pain or swelling, back pain or muscle pain. SKIN: Negative for lesions, rash, and itching. PSYCH: Negative for sleep disturbance, mood disorder and recent psychosocial stressors. HEMATOLOGY/LYMPHOLOGY Negative for prolonged bleeding, bruising easily or swollen nodes. ENDOCRINE: Negative for cold or heat intolerance, polyuria, polydipsia and goiter. NEURO: No history of headaches, syncope, paralysis, seizures or tremors OBJECTIVE PHYSICAL EXAM: Patient Vitals for the past 24 hrs: BP Temp Temp src Pulse Resp SpO2 Height Weight 02/23/24 0500 -- -- -- 78 -- 96 % -- -- 02/23/24 0400 138/61 36.9 ?C (98.4 ?F) Oral 73 18 92 % -- -- 02/23/24 0300 -- -- -- 73 -- 93 % -- -- 02/23/24 0200 162/85 -- -- 83 -- 94 % -- -- 02/23/24 0100 -- -- -- 84 -- 95 % -- -- 02/23/24 0028 -- -- -- 84 -- 95 % -- -- 02/23/24 0027 -- -- -- 86 -- 95 % -- -- 02/23/24 0026 -- -- -- 88 (more content not included)... Normal [facility] MRI BRAIN WO IVCONon 024 MRI BRAIN WO IVCON * * *Final Report* * * DATE OF EXAM: Feb 23 2024 12:04PM [facility] 0294 - MRI BRAIN WO IVCON / PROCEDURE REASON: Dizziness, non-specific * * * * Physician Interpretation * * * * EXAMINATION: MRI BRAIN WO IVCON CLINICAL HISTORY: Dizziness TECHNIQUE: Routine noncontrast MRI protocol including diffusion images. MQ: [id number] COMPARISON: CT 02/22/2024. RESULT: Acute Change: There is no evidence of restricted diffusion to suggest an acute infarct. Hemorrhage: Tiny punctate focus of susceptibility on gradient echo images in the right frontal lobe and LEFT cerebellar hemisphere, compatible with remote hemorrhage. Additional similar lesion anterior RIGHT temporal lobe. Mass Lesion/ Mass Effect: No evidence of an intracranial mass or extra-axial fluid collection. No significant mass effect. Chronic Change: Extensive, confluent increased T2 and FLAIR signal is present in the supratentorial white matter which is nonspecific but likely represents extensive chronic microvascular ischemia. 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 Parenchyma: There is moderate generalized parenchymal volume loss. Ventricles: The lateral and third ventricles are enlarged but this likely relates to central volume loss. Skull Base: Hypothalamic and pituitary region are grossly normal. Craniocervical junction is normal. No significant marrow replacement process. Vasculature: Major intracranial arterial structures, and dural venous sinuses show typical flow void, suggesting patency by spin echo criteria. Other: Left maxillary sinus polyps versus mucus retention cysts. Right ocular lens replacement. The orbits and extracranial soft tissues are unremarkable. IMPRESSION: No acute infarct or acute intracranial process. Chronic changes as detailed. Machine Bobbin Winder: KIERSTEN Transcribe Date/Time: Feb 23 2024 12:13P Dictated by : DEB KRAMER, This examination was interpreted and the report reviewed and electronically signed by: LAMONT RAYMUNDO MD on Feb 23 2024 12:47PM EST [id number] [facility] THERAPY NTon 02-23-2024 THERAPY NT HNO ID: [id number] Author: FARHANA DMUONT PT Service: Physical Therapy Author Type: Physical Therapist Type: Therapy (PT/OT/Speech/Resp) Filed: 02/23/2024 12:18 Note Text: -- Summary: PT Evaluation -- Physical Therapy Evaluation Summary SERVICE DATE: 02/23/2024 SERVICE TIME: 1110 to 1134 ROOM: [place] [id number] ([facility]) PT 6 Clicks Score: 17 DISCHARGE RECOMMENDATIONS Subacute/SNF Recommended Discharge Disposition Comments: Pt currently functioning below baseline with increased pain, decreased ROM, decreased strength, impaired activity tolerance, impaired balance, and overall decreased functional mobility. Pt requires daily skilled services post acute stay to address deficits Recommended Discharge Disposition Due to: Functional deficits requiring ongoing therapy service prior to discharge home., Balance deficits, Coordination deficits, Functional status decline, Requires multiple therapy disciplines Recommended Discharge Equipment: No equipment needs anticipated ASSESSMENT Response to Therapy Interventions: Requires Additional Time to Complete Activities, Good Participation in Activities, Multiple Ongoing Medical Issues, Needs Frequent Redirection or Reinstruction PT order entered with instructions from PST SPECIALIST for PT to perform cane training, however patient demonstrating significant unsteadiness with FWW this date. Not appropriate for cane use due to significant fall risk, even while using FWW. Patient requires daily skilled services post acute stay to address strength and balance deficits PRECAUTIONS Bed/Chair Alarm, Fall Risk, Lines/Tubes/Drains, Impulsive with Activity CURRENT HOSPITAL COURSE Dizziness Relevant Past Medical History: HTN, GERD, and congenital tracheoesophageal fistula, stricture and stenosis of esophagus HOME LIVING Patient Lives With: Spouse Assistance Available: 24-Hour Entry To Home: Stairs, With Rail Number Of Stairs Into Home: 3 Number Of Stairs To Bed/Bath: 0 Tub/Shower Type: combo Laundry: basement - spouse completes Equipment Owned: Cane PRIOR FUNCTIONAL LEVEL Within Functional Limits Patient reports independence with ADLs, shared IADLs with spouse. reports + driving short distances, reports spouse assisting with med management. Reports new use of cane due to poor balance however states he cannot recall how long he has had poor balance. Patient does not quantify falls. SUBJECTIVE Patient reporting toileting urgency upon PT approach, agreeable to PT, cleared with RN THERAPY DIAGNOSIS Muscle Weakness (generalized), Unsteadiness on feet TREATMENT INTERVENTIONS Reevaluation, Gait Training (62425), Therapeutic Activity (32128) Timed Code Treatment (minutes): 9 Skilled Treatment Time (minutes): 24 TRAINING AND EDUCATION PROVIDED Anatomy and Impact on Deficits, Assistive Device Use, Bed Mobility, Benefits of In-Hospital Mobility, Falls Prevention, Expected Functional Level, Role of Physical Therapy, Sitting Balance, Transfers, Standing Balance, Treatment Protocol THERAPEUTIC SKILLS USED Activity Dosing, Cues for Sequencing/Proper Technique for Activity, Cuing Tactile, Cuing Verbal, Cuing Visual, Bed in Chair Position, Facilitation of Joint Range of Motion, Management of Critical Lines, Tubes and/or Drains, Physical Assist, Postural Alignment Correction, Muscle Activation Facilitation FUNCTIONAL STATUS Bed Mobility Supine To Sit: Additional Information Patient sitting EOB at PT approach, reports toileting urgency Sit to Supine: Additional Information OOB in wheelchair with transport at session end Scooting: Additional Information, Contact Guard Assistance fwd/retro Transfers Sit To Stand: Additional Information, Minimal Assistance, Moderate Assistance Bharati from bed height, ModA from toilet height. Patient unsteady with both trials and mildly impulsive with mobility. Cues for UE support on FWW and safe distance from AD Stand To Sit: Additional Information, Minimal Assistance for safety and controlled descent Bed to Chair Gait Additional Information, Moderate Assistance Patient unsteady throughout with FWW use, not appropriate for cane trial this date due to significant fall risk. Patient requires cues for safe pace and safe distance from AD, as well as safety while attempting to navigate obstacles and narrow spaces. Demonstrates short reciprocating stepping pattern throughout however lacks safety awareness. Gait Device: Wheeled Walker Gait Distance (feet): 2 X 15 Stairs GOALS Patient will demonstrate progress to optimize functional mobility, maximize activity tolerance and endurance to maximize function upon discharge. Transfer Supine to/from Sit with: Contact Guard Assistance Transfer Sit to/from Stand with: Cont (more content not included)... [facility] 02-22-2024 [facility] HNO ID: [id number] Author: FADI DE LA ROSA, CT Service: Radiology Author Type: Technologist Type: Allied Health Filed: 02/22/2024 11:26 Note Text: Radiology Service Progress Note DATE OF SERVICE: February 22, 2024 TIME: 11:25 AM PATIENT IDENTITY VERIFICATION COMPLETED USING TWO (2) STANDARD IDENTIFIERS: Name and Date of confirmed by patient verbally and Name and Date of confirmed by identification band. FALL SCREENING: Has the patient had 2 falls in the last year or 1 fall with injury or currently using an Ambulatory Assistive Device (Walker, Cane, Wheelchair, Crutches, etc.)? No PATIENT GENDER DATA: Male PATIENT RELEVANT IMPLANT DATA REVIEWED: Not Applicable PATIENT PRESENTS WITH AN IMPLANTABLE OR ATTACHED CLERK: No ALLERGIES: Reviewed and unchanged CONTRAST ALLERGY: NO. EXAM: CT -CONTRAST INDUCED NEPHROPATHY RISK FACTORS: Patient age > 60 years CREATININE: Creatinine Date Value Ref Range Status 02/22/2024 1.04 0.73 - 1.22 mg/dL Final 11/10/2023 1.16 0.73 - 1.22 mg/dL Final 07/24/2017 1.09 0.73 - 1.22 mg/dL Final Estimated Glomerular Filtration Rate Date Value Ref Range Status 02/22/2024 69 >=60 mL/min/1.73m? Final Comment: Estimated Glomerular Filtration Rate (eGFR) is calculated using the 2020 CKD-EPI creatinine equation. This equation utilizes serum creatinine, sex, and age as parameters. The creatinine assay has traceable calibration to isotope dilution-mass spectrometry. Refer to KDIGO guidelines for clinical interpretation. In patients with unstable renal function, e.g. those with acute kidney injury, the eGFR may not accurately reflect actual GFR. eGFR- Date Value Ref Range Status 07/24/2017 >60 Final P.O.C.T. RESULTS: POC done: Yes, See Lab Tab February 22, 2024 TREATMENT: N/A PERIPHERAL IV DATA: Inpatient - refer to LDA documentation RADIOLOGY DEPARTMENT: CT; Exam(s) Completed: Brain , CTA Brain , and CTA Neck SIGNATURE: Fadi De La Rosa, MELANIE PATIENT NAME: Ayesha Jacobsen DATE: February 22, 2024 TIME: 11:[address] [facility] CBC W Auto Differential pane l (Bld)on 02-22-2024 Basophils (Bld) [#/Vol] 0.04 10*3/uL Normal <0.11 [facility] Comment on above: Order Comment: Speci men Type: BLOOD SPECIMEN Ordering Facility: [facility] Address: [address] [place] [address] Performed By: #### 5 7021-8 #### [facility] CLIA [id number] [address] [place], [place] [id number] [place] Basophils/100 WBC (Bld) 0.4 % Normal [facility] Comment on above: Order Comment: Speci men Type: BLOOD SPECIMEN Ordering Facility: [facility] Address: [address] [place] [address] Performed By: #### 5 7021-8 #### [facility] CLIA [id number] [address] [id number] [place] Differential cell count method Nom (Bld) Auto Normal [facility] Comment on above: Order Comment: Ruperti men Type: BLOOD SPECIMEN Ordering Facility: [facility] Address: [address] [place] [address] Performed By: #### 5 7021-8 #### [facility] CLIA [id number] [address] [place] [address] [place] Eosinophils (Bld) [#/Vol] 0.68 10*3/uL High <0.46 [facility] Comment on above: Order Comment: Speci men Type: BLOOD SPECIMEN Ordering Facility: [facility] Address: [address] [place] [address] Performed By: #### 5 7021-8 #### [facility] CLIA [id number] [address] [place] [address] [place] Eosinophils/100 WBC (Bld) 7.5 % Normal [facility] Comment on above: Order Comment: Speci men Type: BLOOD SPECIMEN Ordering Facility: [facility] Address: [address] [place] [address] Performed By: #### 5 7021-8 #### [facility] CLIA [id number] [address] [place] [address] [place] Erythrocyte distribution width (RBC) [Ratio] 13.8 % Normal 11.5-15.0 [facility] Comment on above: Order Comment: Speci men Type: BLOOD SPECIMEN Ordering Facility: [facility] Address: [address] [place] [address] Performed By: #### 5 7021-8 #### [facility] CLIA [id number] [address] [place] [address] [place] Hematocrit (Bld) [Volume fraction] 43.6 % Normal 39.0-51.0 [facility] Comment on above: Order Comment: Speci men Type: BLOOD SPECIMEN Ordering Facility: [facility] Address: [address] [place] [address] Performed By: #### 5 7021-8 #### [facility] CLIA [id number] [address] [place] [address] [place] Hemoglobin (Bld) [Mass/Vol] 14.0 g/dL Normal 13.0-17.0 [facility] Comment on above: Order Comment: Speci men Type: BLOOD SPECIMEN Ordering Facility: [facility] Address: [address] [place] [address] Performed By: #### 5 7021-8 #### [facility] CLIA [id number] [address] [place] [address] [place] Immature granulocytes (Bld) [#/Vol] 10*3/uL Normal <0.10 [facility] Comment on above: Order Comment: Speci men Type: BLOOD SPECIMEN Ordering Facility: [facility] Address: [address] [place] [address] Performed By: #### 5 7021-8 #### [facility] CLIA [id number] [address] Immature granulocytes/100 WBC (Bld) 0.2 % Normal [facility] Comment on above: Order Comment: Speci men Type: BLOOD SPECIMEN Ordering Facility: [facility] Address: [address] [place] [address] Performed By: #### 5 7021-8 #### [facility] CLIA [id number] [address] [place] [address] [place] Lymphocytes (Bld) [#/Vol] 1.71 10*3/uL Normal 1.00-4.00 [facility] Comment on above: Order Comment: Speci men Type: BLOOD SPECIMEN Ordering Facility: [facility] Address: [address] [place] [address] Performed By: #### 5 7021-8 #### [facility] CLIA [id number] [address] [place] [address] [place] Lymphocytes/100 WBC (Bld) 18.9 % Normal [facility] Comment on above: Order Comment: Speci men Type: BLOOD SPECIMEN Ordering Facility: [facility] Address: [address] [place] [address] Performed By: #### 5 7021-8 #### [facility] CLIA [id number] [address] [place] [address] [place] MCH (RBC) [Entitic mass] 29.7 pg Normal 26.0-34.0 [facility] Comment on above: Order Comment: Speci men Type: BLOOD SPECIMEN Ordering Facility: [facility] Address: [address] [place] [address] Performed By: #### 5 7021-8 #### [facility] CLIA [id number] [address] [place] [address] [place] MCHC (RBC) [Mass/Vol] 32.1 g/dL Normal 30.5-36.0 [facility] Comment on above: Order Comment: Speci men Type: BLOOD SPECIMEN Ordering Facility: [facility] Address: [address] [place] [address] Performed By: #### 5 7021-8 #### [facility] CLIA [id number] [address] [place] [address] [place] MCV (RBC) [Entitic vol] 92.4 fL Normal 80.0-100.0 [facility] Comment on above: Order Comment: Speci men Type: BLOOD SPECIMEN Ordering Facility: [facility] Address: [address] [place] [address] Performed By: #### 5 7021-8 #### [facility] CLIA [id number] [address] [place] [address] [place] Monocytes (Bld) [#/Vol] 0.93 10*3/uL High <0.87 [facility] Comment on above: Order Comment: Speci men Type: BLOOD SPECIMEN Ordering Facility: [facility] Address: [address] [place] [address] Performed By: #### 5 7021-8 #### [facility] CLIA [id number] [address] Monocytes/100 WBC (Bld) 10.3 % Normal [facility] Comment on above: Order Comment: Speci men Type: BLOOD SPECIMEN Ordering Facility: [facility] Address: [address] [place] [address] Performed By: #### 5 7021-8 #### [facility] CLIA [id number] [address] [place] [address] [place] Neutrophils (Bld) [#/Vol] 5.67 10*3/uL Normal 1.45-7.50 [facility] Comment on above: Order Comment: Speci men Type: BLOOD SPECIMEN Ordering Facility: [facility] Address: [address] [place] [address] Performed By: #### 5 7021-8 #### [facility] CLIA [id number] [address] [place] [address] [place] Neutrophils/100 WBC (Bld) 62.7 % Normal [facility] Comment on above: Order Comment: Speci men Type: BLOOD SPECIMEN Ordering Facility: [facility] Address: [address] [place] [address] Performed By: #### 5 7021-8 #### [facility] CLIA [id number] [address] [place] [address] [place] Nucleated RBC (Bld) [#/Vol] Normal [facility] Comment on above: Order Comment: Speci men Type: BLOOD SPECIMEN Ordering Facility: [facility] Address: [address] [place] [address] Performed By: #### 5 7021-8 #### [facility] CLIA [id number] [address] [place] [address] [place] Nucleated RBC/100 WBC (Bld) [Ratio] Normal [facility] Comment on above: Order Comment: Speci men Type: BLOOD SPECIMEN Ordering Facility: [facility] Address: [address] [place] [address] Performed By: #### 5 7021-8 #### [facility] CLIA [id number] [address] [place] [id number] [place] Platelet mean volume (Bld) [Entitic vol] 11.3 fL Normal 9.0-12.7 [facility] Comment on above: Order Comment: Speci men Type: BLOOD SPECIMEN Ordering Facility: [facility] Address: [address] [place] [address] Performed By: #### 5 7021-8 #### [facility] CLIA [id number] [address] Platelets (Bld) [#/Vol] 126 10*3/uL Low 150-400 [facility] Comment on above: Order Comment: Speci men Type: BLOOD SPECIMEN Ordering Facility: [facility] Address: [address] [place] [address] Performed By: #### 5 7021-8 #### [facility] CLIA [id number] [address] [place], [place] [address] [place] [address] RBC (Bld) [#/Vol] 4.72 10*6/uL Normal 4.20-6.00 [facility] Comment on above: Order Comment: Speci men Type: BLOOD SPECIMEN Ordering Facility: [facility] Address: [address] [place] [address] Performed By: #### 5 7021-8 #### [facility] CLIA [id number] [address] WBC (Bld) [#/Vol] 9.05 10*3/uL Normal 3.70-11.00 [facility] Comment on above: Order Comment: Speci men Type: BLOOD SPECIMEN Ordering Facility: [facility] Address: [address] [place] [address] Performed By: #### 5 7021-8 #### [facility] CLIA [id number] [address] CNOVon 02-22-2024 CNOV Office Visit ([facility] ) -- AYESHA JACOBSEN ([id number]) 1935 M Date Time Provider Department 02/22/24 9:00 AM RONDA PERERA During your visit today, we recorded the following information about you: Ronda Perera APRN.CNP 02/22/2024 9:02 AM Signed Called to triage patient by PSS staff 88 year old male with PMH presents for dizziness Acute onset yesterday My legs feel weak +dizziness Walking with cane, which is new per daughter. Denies prior history of same Given age and limitations of express care, Referred to ED Report called to [facility] Patient declines going to [place], and daughter will drive. Allergies As of Date: 02/22/2024 Noted Allergy Reaction EGGS (EGG) 12/14/2015 4 - Hives 12 - Shortness of Breath Date Reviewed: 01/22/2024 Reviewed by: Karen Hinds RN - Fully Assessed Primary Visit Diagnosis:Dizziness [R42] Other Visit Diagnosis:Unsteady gait [R26.81] Prescriptions as of 02/22/2024 - lisinopril (ZESTRIL) 10 mg tablet Take 1 tablet by mouth once daily. - tamsulosin (FLOMAX) 0.4 mg Take 1 capsule by mouth every afternoon. - cyanocobalamin, vitamin B-12, (VITAMIN B-12 ORAL) B-12 CAPS - dvmc-LC-phz-zio-HDT-FQRI-b e-mv 1.5 mg iron- 8.73 mg CpID Take by mouth. - ferrous sulfate (IRON ORAL) Take by mouth. - OMEPRAZOLE (PRILOSEC ORAL) Take by mouth. Problem List As Of Date 02/22/2024 Noted Resolved Esophageal foreign body [T18.108A] 07/25/2013 07/24/2017 Left inguinal hernia [K40.90] 07/19/2017 Primary hypertension [I10] 07/24/2017 GERD (gastroesophageal reflux disease) [K21.9] 07/24/2017 Aortic valve disorder [I35.9] 11/10/2023 BPH (benign prostatic hyperplasia) [N40.0] 11/10/2023 Former smoker [Z87.891] 11/10/2023 Esophageal stricture [K22.2] 11/10/2023 Asthma [J45.909] 11/10/2023 Nonrheumatic aortic valve stenosis [I35.0] 01/22/2024 Encounter Status:Closed by RONDA PERERA on 02/22/24 Normal [facility] CT BRAIN WO IVCONon 02-22-20 CT BRAIN WO IVCON * * *Final Report* * * DATE OF EXAM: Feb 22 2024 11:30AM [facility] 0504 - CT BRAIN WO IVCON / PROCEDURE REASON: dizziness * * * * Physician Interpretation * * * * EXAMINATION: CT BRAIN WO IVCON, CTA HEAD W IVCON, CTA NECK W IVCON HISTORY: dizziness TECHNIQUE: Routine CT of the brain without IV contrast. Next, spiral high resolution axial images were obtained through the head, neck and superior mediastinum following bolus administration of intravenous contrast for CT angiography. The data was subsequently post-processed utilizing 3D multi-planar reconstructions, 3D maximum intensity projections, and a tissue segmentation algorithm at a separate workstation under physician supervision. MQ: CTABNPlus_3 Contrast: 100 mL Omnipaque 350 IV Dose-Length Product (DLP): 706.22 (accession [id number]), 1572.25 (accession [id number]), 1572.25 (accession [id number]) mGy*cm. CT Dose Reduction Employed: No dose reduction techniques were required (accession [id number]), Automated exposure control(AEC) and iterative recon (accession [id number]), Automated exposure control(AEC) and iterative recon (accession [id number]) COMPARISON: None. RESULT: BRAIN: Acute change: No evidence of an acute infarct or other acute parenchymal process. ASPECT Score = 10 Hemorrhage: No evidence of acute intracranial hemorrhage. ECASS hemorrhagic transformation score = Not Applicable Mass Lesion / Mass Effect: There is no evidence of an intracranial mass or extraaxial fluid collection. No significant mass effect. Chronic change: Moderate to advanced degree of supratentorial chronic microvascular ischemic changes. Parenchyma: Moderate parenchymal volume loss. Ventricles: Generalized ventricular enlargement corresponding to degree of atrophy Other: The visualized paranasal sinuses are grossly clear. The skull and visualized extracranial soft tissues are grossly normal. NECK: Soft tissues: The soft tissue planes are maintained throughout. No evidence of a soft tissue mass in the neck or superior mediastinum. No significant lymphadenopathy is seen. Spine: Alignment is normal. Moderate degree multilevel degenerative central and foraminal stenotic changes are present. Lung apices: The visualized lung apices are clear. CT ARTERIOGRAM: Extracranial Circulation: Aortic Arch: There is a normal branching pattern from the aortic arch.. There is no significant stenosis in the proximal brachiocephalic vessels. Carotid Stenosis: Right Common: No significant stenosis. Right Internal Carotid Plaque: Mild calcified plaque formation. Right Internal Carotid Stenosis mild calcified Criteria): Less than 30% Left Common: No significant stenosis. Left Internal Carotid Plaque: No significant plaque formation. Left Internal Carotid Stenosis (% by NASCET Criteria): Less than 30% Cervical Vertebral Arteries: Patency: Bilateral. Minimal calcific stenosis distal intradural left vertebral artery Dominance: Left Intracranial Circulation: Spot Sign Presence: Not Applicable Spot Sign Number: Not Applicable Anterior Circulation: The petrous, cavernous and supraclinoid segments of the internal carotid arteries are patent. No large vessel occlusion of the anterior or middle cerebral arteries. Mild stenosis M2 segment right MCA. No anterior circulation aneurysm. Vertebrobasilar Circulation: Moderate degree of focal stenosis P1 and P2 segment right posterior cerebral artery. Otherwise, vertebral basilar system is patent. Patent posterior inferior cerebellar, superior cerebellar and left INSURANCE CLAIMS REPRESENTATIVE. Patent distal intradural vertebral and basilar arteries. IMPRESSION: 1. No CT evidence of acute intracranial abnormalities. No CT evidence of acute intracranial hemorrhage 2.Moderate degree of focal stenosis P1 and P2 segment right posterior cerebral artery. 3.No large vessel occlusion of the anterior or middle cerebral arteries. Mild stenosis M2 segment right MCA 4.Moderate to advanced degree of supratentorial chronic microvascular ischemic changes. Moderate degree of parenchymal volume loss Machine Bobbin Winder: KIERSTEN Transcribe Date/Time: Feb 22 2024 11:51A Dictated by : DANN BEST MD This examination was interpreted and the report reviewed and electronically signed by: DANN BEST MD on Feb 22 2024 11:59AM EST [id number] Normal [facility] CTA HEAD W IVCONon 4 CTA HEAD W IVCON * * *Final Report* * * DATE OF EXAM: Feb 22 2024 11:39AM [facility] 0022 - CTA HEAD W IVCON / PROCEDURE REASON: dizziness * * * * Physician Interpretation * * * * EXAMINATION: CT BRAIN WO IVCON, CTA HEAD W IVCON, CTA NECK W IVCON HISTORY: dizziness TECHNIQUE: Routine CT of the brain without IV contrast. Next, spiral high resolution axial images were obtained through the head, neck and superior mediastinum following bolus administration of intravenous contrast for CT angiography. The data was subsequently post-processed utilizing 3D multi-planar reconstructions, 3D maximum intensity projections, and a tissue segmentation algorithm at a separate workstation under physician supervision. MQ: CTABNPlus_3 Contrast: 100 mL Omnipaque 350 IV Dose-Length Product (DLP): 706.22 (accession [id number]), 1572.25 (accession [id number]), 1572.25 (accession [id number]) mGy*cm. CT Dose Reduction Employed: No dose reduction techniques were required (accession [id number]), Automated exposure control(AEC) and iterative recon (accession [id number]), Automated exposure control(AEC) and iterative recon (accession [id number]) COMPARISON: None. RESULT: BRAIN: Acute change: No evidence of an acute infarct or other acute parenchymal process. ASPECT Score = 10 Hemorrhage: No evidence of acute intracranial hemorrhage. ECASS hemorrhagic transformation score = Not Applicable Mass Lesion / Mass Effect: There is no evidence of an intracranial mass or extraaxial fluid collection. No significant mass effect. Chronic change: Moderate to advanced degree of supratentorial chronic microvascular ischemic changes. Parenchyma: Moderate parenchymal volume loss. Ventricles: Generalized ventricular enlargement corresponding to degree of atrophy Other: The visualized paranasal sinuses are grossly clear. The skull and visualized extracranial soft tissues are grossly normal. NECK: Soft tissues: The soft tissue planes are maintained throughout. No evidence of a soft tissue mass in the neck or superior mediastinum. No significant lymphadenopathy is seen. Spine: Alignment is normal. Moderate degree multilevel degenerative central and foraminal stenotic changes are present. Lung apices: The visualized lung apices are clear. CT ARTERIOGRAM: Extracranial Circulation: Aortic Arch: There is a normal branching pattern from the aortic arch.. There is no significant stenosis in the proximal brachiocephalic vessels. Carotid Stenosis: Right Common: No significant stenosis. Right Internal Carotid Plaque: Mild calcified plaque formation. Right Internal Carotid Stenosis mild calcified Criteria): Less than 30% Left Common: No significant stenosis. Left Internal Carotid Plaque: No significant plaque formation. Left Internal Carotid Stenosis (% by NASCET Criteria): Less than 30% Cervical Vertebral Arteries: Patency: Bilateral. Minimal calcific stenosis distal intradural left vertebral artery Dominance: Left Intracranial Circulation: Spot Sign Presence: Not Applicable Spot Sign Number: Not Applicable Anterior Circulation: The petrous, cavernous and supraclinoid segments of the internal carotid arteries are patent. No large vessel occlusion of the anterior or middle cerebral arteries. Mild stenosis M2 segment right MCA. No anterior circulation aneurysm. Vertebrobasilar Circulation: Moderate degree of focal stenosis P1 and P2 segment right posterior cerebral artery. Otherwise, vertebral basilar system is patent. Patent posterior inferior cerebellar, superior cerebellar and left INSURANCE CLAIMS REPRESENTATIVE. Patent distal intradural vertebral and basilar arteries. IMPRESSION: 1. No CT evidence of acute intracranial abnormalities. No CT evidence of acute intracranial hemorrhage 2.Moderate degree of focal stenosis P1 and P2 segment right posterior cerebral artery. 3.No large vessel occlusion of the anterior or middle cerebral arteries. Mild stenosis M2 segment right MCA 4.Moderate to advanced degree of supratentorial chronic microvascular ischemic changes. Moderate degree of parenchymal volume loss Machine Bobbin Winder: KIERSTEN Transcribe Date/Time: Feb 22 2024 11:51A Dictated by : DANN BEST MD This examination was interpreted and the report reviewed and electronically signed by: DANN BEST MD on Feb 22 2024 11:59AM EST [id number] Normal [facility] CTA NECK W IVCONon 4 CTA NECK W IVCON * * *Final Report* * * DATE OF EXAM: Feb 22 2024 11:39AM [facility] 0024 - CTA NECK W IVCON / PROCEDURE REASON: dizziness * * * * Physician Interpretation * * * * EXAMINATION: CT BRAIN WO IVCON, CTA HEAD W IVCON, CTA NECK W IVCON HISTORY: dizziness TECHNIQUE: Routine CT of the brain without IV contrast. Next, spiral high resolution axial images were obtained through the head, neck and superior mediastinum following bolus administration of intravenous contrast for CT angiography. The data was subsequently post-processed utilizing 3D multi-planar reconstructions, 3D maximum intensity projections, and a tissue segmentation algorithm at a separate workstation under physician supervision. MQ: CTABNPlus_3 Contrast: 100 mL Omnipaque 350 IV Dose-Length Product (DLP): 706.22 (accession [id number]), 1572.25 (accession [id number]), 1572.25 (accession [id number]) mGy*cm. CT Dose Reduction Employed: No dose reduction techniques were required (accession [id number]), Automated exposure control(AEC) and iterative recon (accession [id number]), Automated exposure control(AEC) and iterative recon (accession [id number]) COMPARISON: None. RESULT: BRAIN: Acute change: No evidence of an acute infarct or other acute parenchymal process. ASPECT Score = 10 Hemorrhage: No evidence of acute intracranial hemorrhage. ECASS hemorrhagic transformation score = Not Applicable Mass Lesion / Mass Effect: There is no evidence of an intracranial mass or extraaxial fluid collection. No significant mass effect. Chronic change: Moderate to advanced degree of supratentorial chronic microvascular ischemic changes. Parenchyma: Moderate parenchymal volume loss. Ventricles: Generalized ventricular enlargement corresponding to degree of atrophy Other: The visualized paranasal sinuses are grossly clear. The skull and visualized extracranial soft tissues are grossly normal. NECK: Soft tissues: The soft tissue planes are maintained throughout. No evidence of a soft tissue mass in the neck or superior mediastinum. No significant lymphadenopathy is seen. Spine: Alignment is normal. Moderate degree multilevel degenerative central and foraminal stenotic changes are present. Lung apices: The visualized lung apices are clear. CT ARTERIOGRAM: Extracranial Circulation: Aortic Arch: There is a normal branching pattern from the aortic arch.. There is no significant stenosis in the proximal brachiocephalic vessels. Carotid Stenosis: Right Common: No significant stenosis. Right Internal Carotid Plaque: Mild calcified plaque formation. Right Internal Carotid Stenosis mild calcified Criteria): Less than 30% Left Common: No significant stenosis. Left Internal Carotid Plaque: No significant plaque formation. Left Internal Carotid Stenosis (% by NASCET Criteria): Less than 30% Cervical Vertebral Arteries: Patency: Bilateral. Minimal calcific stenosis distal intradural left vertebral artery Dominance: Left Intracranial Circulation: Spot Sign Presence: Not Applicable Spot Sign Number: Not Applicable Anterior Circulation: The petrous, cavernous and supraclinoid segments of the internal carotid arteries are patent. No large vessel occlusion of the anterior or middle cerebral arteries. Mild stenosis M2 segment right MCA. No anterior circulation aneurysm. Vertebrobasilar Circulation: Moderate degree of focal stenosis P1 and P2 segment right posterior cerebral artery. Otherwise, vertebral basilar system is patent. Patent posterior inferior cerebellar, superior cerebellar and left INSURANCE CLAIMS REPRESENTATIVE. Patent distal intradural vertebral and basilar arteries. IMPRESSION: 1. No CT evidence of acute intracranial abnormalities. No CT evidence of acute intracranial hemorrhage 2.Moderate degree of focal stenosis P1 and P2 segment right posterior cerebral artery. 3.No large vessel occlusion of the anterior or middle cerebral arteries. Mild stenosis M2 segment right MCA 4.Moderate to advanced degree of supratentorial chronic microvascular ischemic changes. Moderate degree of parenchymal volume loss Machine Bobbin Winder: KIERSTEN Transcribe Date/Time: Feb 22 2024 11:51A Dictated by : DANN BEST MD This examination was interpreted and the report reviewed and electronically signed by: DANN BEST MD on Feb 22 2024 11:59AM EST [id number] Normal [facility] Comprehensive metabolic 2000 panelon 02-22-2024 Albumin [Mass/Vol] 3.5 g/dL Low 3.9-4.9 [facility] Comment on above: Order Comment: Speci men Type: BLOOD SPECIMENOrdering Facility: [facility] Address: [address] [place] [address] Performed By: #### 2 4323-8 ####[facility] [id number] [place] [address] [facility] ALP [Catalytic activity/Vol] 69 U/L Normal 38-113 [facility] Comment on above: Order Comment: Speci men Type: BLOOD SPECIMENOrdering Facility: [facility] [facility] Address: [address] [place] [address] Performed By: #### 2 4323-8 ####[facility] LABCLIA [id number] [place] [address] [place] [facility] ALT With P-5'-P [Catalytic activity/Vol] 8 U/L Low 10-54 [facility] Comment on above: Order Comment: Speci men Type: BLOOD SPECIMENOrdering Facility: [facility] Address: [address] [place] [address] Performed By: #### 2 4323-8 ####[facility] LABCLIA [id number] [place] [address] [facility] Anion gap [Moles/Vol] 9 mmol/L Normal 8-15 [facility] Comment on above: Order Comment: Speci men Type: BLOOD SPECIMENOrdering Facility: [facility] Address: [address] [place] [address] Performed By: #### 2 4323-8 ####[facility] LABCLIA [id number] [facility] [place] [address] [place] AST With P-5'-P [Catalytic activity/Vol] 13 U/L Low 14-40 [facility] Comment on above: Order Comment: Speci men Type: BLOOD SPECIMENOrdering Facility: [facility] Address: [address] [place] [address] Performed By: #### 2 4323-8 ####[facility] LABCLIA [id number] [facility] [place] [address] [place] Bilirubin [Mass/Vol] 0.6 mg/dL Normal 0.2-1.3 [facility] Comment on above: Order Comment: Speci men Type: BLOOD SPECIMENOrdering Facility: [facility] Address: [address] [place] [address] Performed By: #### 2 4323-8 ####[facility] LABCLIA [id number] [place] [address] [place] Calcium [Mass/Vol] 9.1 mg/dL Normal 8.5-10.2 [facility] Comment on above: Order Comment: Speci men Type: BLOOD SPECIMENOrdering Facility: [facility] Address: [address] [place] [address] Performed By: #### 2 4323-8 ####[facility] LABCLIA [id number] [place] [address] [place] Chloride [Moles/Vol] 108 mmol/L High 98-107 [facility] Comment on above: Order Comment: Speci men Type: BLOOD SPECIMENOrdering Facility: [facility] Address: [address] [place] [address] Performed By: #### 2 4323-8 ####[facility] LABCLIA [id number] [facility] [place] [address] [place] CO2 [Moles/Vol] 26 mmol/L Normal 22-30 [facility] Comment on above: Order Comment: Speci monique Type: BLOOD SPECIMENOrdering Facility: [facility] Address: [address] [place] [address] Performed By: #### 2 4323-8 ####[facility] LABCLIA [id number] [place] [address] [place] Creatinine [Mass/Vol] 1.04 mg/dL Normal 0.73-1.22 [facility] Comment on above: Order Comment: Speci men Type: BLOOD SPECIMENOrdering Facility: [facility] Address: [address] [place] [address] Performed By: #### 2 4323-8 ####[facility] LABCLIA [id number] [place] [address] [facility] Creatinine and Glomerular filtration rate.predicted panel (S/P/Bld) 69 mL/min/1.73m??? Normal >=60 [facility] Comment on above: Order Comment: Jame men Type: BLOOD SPECIMENOrdering Facility: [facility] Address: [address] [place] [address] Result Comment: Radha mated Glomerular Filtration Rate (eGFR) is calculated using the 2020 CKD-EPI creatinine equation. This equation utilizes serum creatinine, sex, and age as parameters. The creatinine assay has traceable calibration to isotope dilution-mass spectrometry. Refer to KDIGO guidelines for clinical interpretation. In patients with unstable renal function, e.g. those with acute kidney injury, the eGFR may not accurately reflect actual GFR. Performed By: #### 2 4323-8 ####[facility] LABCLIA [id number] [place] [address] [place] Glucose [Mass/Vol] 77 mg/dL Normal 74-99 [facility] Comment on above: Order Comment: Jame amaya Type: BLOOD SPECIMENOrdering Facility: [facility] Address: [address] [place] [address] Result Comment: The [place] Diabetes Association (ADA) provides guidance for cutoff values for fasting glucose and random glucose. The ADA defines fasting as no caloric intake for at least 8 hours. Fasting plasma glucose results between 100 to 125 mg/dL indicate increased risk for diabetes (prediabetes). Fasting plasma glucose results greater than or equal to 126 mg/dL meet the criteria for diagnosis of diabetes. In the absence of unequivocal hyperglycemia, results should be confirmed by repeat testing. In a patient with classic symptoms of hyperglycemia or hyperglycemic crisis, random plasma glucose results greater than or equal to 200 mg/dL meet the criteria for diagnosis of diabetes. Reference: Standards of Medical Care in Diabetes 2016, [place] Diabetes Association. Diabetes Care. 2016.39(Suppl 1). Performed By: #### 2 4323-8 ####[email or web address] LABCLIA [id number] [place] [address] [place] Potassium [Moles/Vol] 4.1 mmol/L Normal 3.7-5.1 [facility] Comment on above: Order Comment: Jame amaya Type: BLOOD SPECIMENOrdering Facility: [facility] Address: [address] [place] [address] Performed By: #### 2 4323-8 ####[email or web address] LABCLIA [id number] [place] [address] [place] Protein [Mass/Vol] 6.2 g/dL Low 6.3-8.0 [facility] Comment on above: Order Comment: Jame amaya Type: BLOOD SPECIMENOrdering Facility: [facility] Address: [address] [place] [address] Performed By: #### 2 4323-8 ####[email or web address] LABCLIA [id number] [place] [address] [place] Sodium [Moles/Vol] 143 mmol/L Normal 136-144 [facility] Comment on above: Order Comment: Jame amaya Type: BLOOD SPECIMENOrdering Facility: [facility] Address: [address] [place] [address] Performed By: #### 2 4323-8 ####[email or web address] LABCLIA [id number] [place] [address] [place] Urea nitrogen [Mass/Vol] 18 mg/dL Normal 9-24 [facility] Comment on above: Order Comment: Speci men Type: BLOOD SPECIMENOrdering Facility: [facility] Address: [address] [place] [address] [place] [address] Performed By: #### 2 4323-8 ####[facility] LABCLTAHIR [id number] [place] [address] [place] ECG COMPLETEon 02-22-2024 ECG COMPLETE Ventricular Rate : 8 6 BPM Atrial Rate : 86 BPM P-R Interval : 182 ms QRS Duration : 102 ms Q-T Interval : 384 ms QTC Calculation(Bazett) : 459 ms Calculated P [place] : 27 degrees Calculated R [place] : -36 degrees Calculated T [place] : 34 degrees NORMAL SINUS RHYTHM LEFT AXIS DEVIATION MINIMAL VOLTAGE CRITERIA FOR LVH, MAY BE NORMAL VARIANT ( R in aVL ) ABNORMAL ECG NO PREVIOUS ECGS AVAILABLE Confirmed by MD RAMOS VINAYAK ([id number]) on 02/25/2024 10:15:56 PM NAME : AYESHA JACOBSEN PID : [id number] : 1935 Gender : Male Race : ORD : [id number] Procedure Date : Feb 22 2024 10:07:39 Edit Date : Feb 25 2024 22:16:00 Diagnosis: NORMAL SINUS RHYTHM LEFT AXIS DEVIATION MINIMAL VOLTAGE CRITERIA FOR LVH, MAY BE NORMAL VARIANT ( R in aVL ) ABNORMAL ECG NO PREVIOUS ECGS AVAILABLE Confirmed by MD RAMOS VINAYAK ([id number]) on 02/25/2024 10:15:56 PM Test Reason : Chest Pain Location : 191 : [facility] ED Overread By : MD RAMOS VINAYAK Edited By : MD RAMOS VINAYAK Referred By : , Acquired by : BRIGIDA JARRELL [facility] ED NOTEon 02-22-2024 ED NOTE HNO ID: [id number] Author: PIPPA JACKSON RN Service: Emergency Medicine Author Type: Registered Nurse Type: ED Notes Filed: 02/22/2024 19:24 Note Text: Report to Keagan PEACOCK [facility] ED NOTE HNO ID: [id number] Author: LADI NUR RN Service: ? Author Type: Registered Nurse Type: ED Notes Filed: 02/22/2024 18:16 Note Text: [place] [address]: 2531 Nurse to Nurse: [phone] [facility] ED NOTE HNO ID: [id number] Author: LADI NUR RN Service: ? Author Type: Registered Nurse Type: ED Notes Filed: 02/22/2024 18:06 Note Text: Pt to be placed in room 253 - will updated transfer center who will call with official transfer details. [facility] ED NOTE HNO ID: [id number] Author: PIPPA JACKSON, MADONNA Service: Emergency Medicine Author Type: Registered Nurse Type: ED Notes Filed: 02/22/2024 16:41 Note Text: Pt up walking in hallway with assist. Still notes light dizziness. No needs at this time. Will continue to monitor and maintain safety. [facility] ED NOTE HNO ID: [id number] Author: PIPPA JACKSON, MADONNA Service: Emergency Medicine Author Type: Registered Nurse Type: ED Notes Filed: 02/22/2024 15:27 Note Text: Esteves insertion completed. [place], warm, dry. No apparent distress. Alert and oriented. [facility] ED NOTE HNO ID: [id number] Author: CRYSTAL LEW RN Service: ? Author Type: Registered Nurse Type: ED Notes Filed: 02/22/2024 14:48 Note Text: Pt voids per urinal before bladder scan, pt voids approx 20ml [facility] ED NOTE HNO ID: [id number] Author: CRYSTAL LEW RN Service: ? Author Type: Registered Nurse Type: ED Notes Filed: 02/22/2024 12:24 Note Text: Pt provides additional sample [facility] ED NOTE HNO ID: [id number] Author: CRYSTAL LEW RN Service: ? Author Type: Registered Nurse Type: ED Notes Filed: 02/22/2024 09:51 Note Text: Pt c./o dizziness since yesterday morning, pt reports the room was spinning. Pt has slight nausea last night. Pt reports generalized weakness. Pt [facility] am for dizziness and they sent him to ed. [facility] ED PROV NOTEon 10-17-2024 ED PROV NOTE HNO ID: [id number] Author: CRISELDA RM MD Service: ? Author Type: Physician Type: ED Provider Notes Filed: 02/23/2024 06:29 Note Text: ED Provider Note Patient Name: Ayesha Jacobsen : 1935 SERVICE DATE: 02/22/24 History Patient presents with: Dizziness Weakness Patient presents with dizziness. He states that the symptoms woke him from sleep yesterday. He has no specific position of comfort but is significantly better when laying down. He feels very nauseous and feels like the room is spinning when he is upright. However it is vague and has no association with 1 side and does not completely resolve when laying flat. He went to the urgent care and was sent here to the emergency room. He has no numbness or tingling. No difficulty with speech. No facial droop. He has no headaches. He has no ear pain. He denies any falls or injury. No recent head traumas. Denies any other complaints. PAST MEDICAL HISTORY Diagnosis Date Congenital tracheoesophageal fistula, esophageal atresia and stenosis Diverticulosis of colon with hemorrhage Essential hypertension 07/24/2017 GERD (gastroesophageal reflux disease) 07/24/2017 Stricture and stenosis of esophagus PAST SURGICAL HISTORY Procedure Laterality Date EGD FLEXIBLE FOREIGN BODY REMOVAL 07/24/13 distal stenosis ESOPHAGOSCOPY FLEX BALLOON DILAT <30 MM DIAM 06/27/2008 Esophageal dilatation ESOPHAGOSCOPY FLEX BALLOON DILAT <30 MM DIAM 07/25/08 ESOPHAGOSCOPY FLEXIBLE REMOVAL FOREIGN BODY 05/27/08 ER [facility] PAST SURGICAL HISTORY OF Mid COLON RESECTION REPAIR INGUINAL HERNIA Left 07/25/2017 FAMILY HISTORY Problem Relation Age of Onset Cancer Mother colon Cancer Father ? Social History Tobacco Use Smoking status: Former Current packs/day: 0.00 Average packs/day: 1 pack/day for 25.0 years (25.0 ttl pk-yrs) Types: Cigarettes Start date: 06/02/1952 Quit date: 06/02/1977 Years since quittin.7 Smokeless tobacco: Never Vaping Use Vaping status: Never Used Substance and Sexual Activity Alcohol use: No Drug use: No Sexual activity: Not on file ALLERGIES Allergen Reactions Eggs [Egg] Hives, Shortness of Breath Review of Systems Constitutional: Negative. HENT: Negative. Eyes: Negative. Respiratory: Negative. Cardiovascular: Negative. Gastrointestinal: Negative. Endocrine: Negative. Genitourinary: Negative. Musculoskeletal: Negative. Skin: Negative. Allergic/Immunologic: Negative. Neurological: Positive for dizziness. Hematological: Negative. Psychiatric/Behavioral: Negative. Physical Exam Vitals [02/22/24 0945] BP Pulse Temp Temp src Resp SpO2 Weight Height 157/91 (!) 96 37.1 ?C (98.7 ?F) Temporal Art 18 96 % 69.9 kg (154 lb) -- Physical Exam Vitals and nursing note reviewed. Constitutional: Appearance: He is well-developed. HENT: Head: Atraumatic. Eyes: Extraocular Movements: Extraocular movements intact. Conjunctiva/sclera: Conjunctivae normal. Cardiovascular: Rate and Rhythm: Regular rhythm. Heart sounds: Normal heart sounds. Pulmonary: Effort: Pulmonary effort is normal. Breath sounds: Normal breath sounds. Abdominal: General: Bowel sounds are normal. There is no distension. Palpations: Abdomen is soft. Tenderness: There is no abdominal tenderness. There is no guarding or rebound. Musculoskeletal: General: Normal range of motion. Cervical back: Normal range of motion and neck supple. Skin: General: Skin is warm and dry. Neurological: General: No focal deficit present. Mental Status: He is alert and oriented to person, place, and time. Mental status is at baseline. Diagnostic Testing ED Labs Ordered and Reviewed COMPREHENSIVE METABOLIC PANEL - Abnormal; Notable for the following components: Result Value Ref Range Protein, Total 6.2 (*) 6.3 - 8.0 g/dL Albumin 3.5 (*) 3.9 - 4.9 g/dL AST 13 (*) 14 - 40 U/L ALT 8 (*) 10 - 54 U/L Chloride 108 (*) 98 - 107 mmol/L All other components within normal limits HIGH SENSITIVITY TROPONIN T (INITIAL) - Abnormal; Notable for the following components: LIZANDRO High Sensitivity 26 (*) <12 ng/L All other components within normal limits COMPLETE BLOOD COUNT AND DIFFERENTIAL - Abnormal; Notable for the following components: Platelet Count 126 (*) 150 - 400 k/uL Abs [place] 0.93 (*) <0.87 k/uL Abs Eosin 0.68 (*) <0.46 k/uL All other components within normal limits URINALYSIS WITH MICROSCOPIC, REFLEX CULTURE - Abnormal; Notable for the following components: Leuk Esterase 1+ (*) Negative WBC, Urine >25 /HPF (*) 0-5 /HPF Bacteria Moderate (*) None Seen /HPF All other components within normal limits HIGH SENSITIVITY TROPONIN T (SECOND) - Abnormal; Notable for the following components: LIZANDRO High Sensitivity 25 (*) <12 ng/L All other components within normal limits HIGH SENSITIVITY TROPONIN T (THIRD) 3 HRS AFTER INITIAL - Abnormal; Notable for th (more content not included)... Normal [facility] HIGH SENSITIVITY TROPONIN T (INITIAL)on 02-22-2024 Troponin T.cardiac High sensitivity method [Mass/Vol] 26 ng/L High <12 [facility] Comment on above: Order Comment: Speci men Type: BLOOD SPECIMENOrdering Facility: [facility] Address: [address] [place] [address] Performed By: #### L [id number] ####[facility] LABCLIA [id number] [address] HIGH SENSITIVITY TROPONIN T (SECOND)on 02-22-2024 Troponin T.cardiac High sensitivity method [Mass/Vol] 25 ng/L High <12 [facility] Comment on above: Order Comment: Speci men Type: BLOOD SPECIMENOrdering Facility: [facility] Address: [address] [place] [address] Performed By: #### L [id number] ####[facility] LABCLIA [id number] [place] [address] [facility] HIGH SENSITIVITY TROPONIN T (THIRD) 3 HRS AFTER INITIALon 02-22-2024 Troponin T.cardiac High sensitivity method [Mass/Vol] 23 ng/L High <12 [facility] Comment on above: Order Comment: Speci men Type: BLOOD SPECIMENOrdering Facility: [facility] Address: [address] [place] [address] Performed By: #### L [id number] ####[email or web address] LABCLIA [id number] [place] [address] [facility] Urinalysis complete pnl Uron 02-22-2024 Urinalysis complete panel (U) COLOR: Yellow CLARITY: Clear GLUCOSE, URINE: Negative BILIRUBIN, URINE: Negative KETONES, URINE: Negative SPECIFIC GRAVITY, UR: 1.020 HEMOGLOBIN/BLOOD, UR: Negative PH, URINE: 6.5 PROTEIN, URINE: Negative UROBILINOGEN: 0.2 EU/dL NITRITES: Negative LEUKEST: 1+ WBC, URINE: >25 /HPF RBC, URINE: 0-3 /HPF BACTERIA: Moderate CULTURE, URINE: 10,000-<50,000 CFU/mL Three or more organisms, no one type predominant, suggesting contamination during collection. Recollect if clinically indicated. Abnormal [facility] Comment on above: Order Comment: Speci men Type: URINE SPECIMENOrdering Facility: [facility] Address: [address] [place] [address] Performed By: #### 2 4356-8 ####[facility] LABCLIA [id number] [place] [address] [facility] LABORATORYCLIA [id number] [place] [id number] [facility] XR CHEST 1V FRONTALon 2023 XR CHEST 1V FRONTAL * * *Final Report* * * DATE OF EXAM: Feb 22 2024 11:28AM LDX 5290 - XR CHEST 1V FRONTAL / PROCEDURE REASON: Syncope/presyncope * * * * Physician Interpretation * * * * EXAMINATION: CHEST RADIOGRAPH (SINGLE VIEW AP OR PA) CLINICAL HISTORY: Syncope/presyncope MQ: XC1_5 Comparison: 12/14/2015 RESULT: Lines, tubes, and devices: None. Lungs and pleura: No consolidation. No lung mass. No pleural effusion. Linear atelectatic strands/scar left lung base Cardiomediastinal silhouette: Normal cardiomediastinal silhouette. Other: . Hiatal hernia IMPRESSION: No acute radiographic abnormality. Hiatal hernia Machine Bobbin Winder: PSCB Transcribe Date/Time: Feb 22 2024 11:42A Dictated by : DANN BEST MD This examination was interpreted and the report reviewed and electronically signed by: DANN BEST MD on Feb 22 2024 11:42AM EST [id number] [facility] Tele[facility] (Flypaper) -- DELMARAYESHA ([id number]) 1935 M Date Time Provider Department 01/25/24 JACQUELINE ESPINAL During your visit today, we recorded the following information about you: Priscilla Colindres 01/25/2024 9:52 AM Signed Cardiac clearance sent to Dr. Hall for clearance for patient to be able to schedule [facility] Supervisor [facility] Department Priscilla Colindres 02/05/2024 2:52 PM Signed Per office note from Dr. Hall 01/22/2024 3. Preoperative clearance - ICD9: V72.84, ICD10: Z01.818 Patient cleared for his hernia surgery with mild to moderate risk Allergies As of Date: 01/25/2024 Noted Allergy Reaction EGGS (EGG) 12/14/2015 4 - Hives 12 - Shortness of Breath Date Reviewed: 01/22/2024 Reviewed by: Karen Hinds, RN - Fully Assessed Prescriptions as of 03/12/2024 - levETIRAcetam (KEPPRA) 500 mg tablet Take 1 tablet by mouth two times a day. - meclizine (ANTIVERT) 25 mg tab Take 1 tablet by mouth three times a day as needed. - naproxen sod/diphenhydramine (ALEVE PM ORAL) Take 2 tablets by mouth as needed (pain). - lisinopril (ZESTRIL) 10 mg tablet Take 1 tablet by mouth once daily. - tamsulosin (FLOMAX) 0.4 mg Take 1 capsule by mouth every afternoon. - cyanocobalamin, vitamin B-12, (VITAMIN B-12 ORAL) B-12 CAPS - OMEPRAZOLE (PRILOSEC ORAL) Take 20 mg by mouth daily at 6 am. Problem List As Of Date 01/25/2024 Noted Resolved Esophageal foreign body [T18.108A] 07/25/2013 07/24/2017 Left inguinal hernia [K40.90] 07/19/2017 Primary hypertension [I10] 07/24/2017 GERD (gastroesophageal reflux disease) [K21.9] 07/24/2017 Aortic valve disorder [I35.9] 11/10/2023 BPH (benign prostatic hyperplasia) [N40.0] 11/10/2023 Former smoker [Z87.891] 11/10/2023 Esophageal stricture [K22.2] 11/10/2023 Asthma [J45.909] 11/10/2023 Nonrheumatic aortic valve stenosis [I35.0] 01/22/2024 Encounter Status:Closed by HERO WAITE on 03/12/24 Normal [facility] CNOVon 01-22-2024 CNOV Office Visit (CAWSTR ) -- AYESHA JACOBSEN Desiree ([id number]) 1935 M Date Time Provider Department 01/22/24 3:20 PM FABRICIO HALLWSLG During your visit today, we recorded the following information about you: Temperature Pulse Blood pressure Weight 99.1 degrees 92/minute 138/95 68.9 kg Height 1.651 m Fabricio Hall MD 01/22/2024 4:39 PM Signed Fabricio Hall MD Interventional Cardiology [address] [place] [address] [id number] Chief Complaint Patient presents with: Consult HISTORY OF PRESENT ILLNESS: Mr. Jacobsen is a 88 year old male seen my office today for assessment management of preoperative evaluation patient had longstanding history of essential hypertension maintained on MICHELLE inhibitors recently was diagnosed with hernia and supposed to have surgery echocardiography was performed which revealed diagnosis of aortic stenosis patient has remained relatively asymptomatic denies any chest pain shortness of breath with exertion no signs or symptoms of congestive heart failure Echocardiography was performed on October 2023 shows normal left ventricular size with mildly decreased LV function ejection fraction 46% aortic valve shows tricuspid valve with moderate aortic stenosis caused by calcified valve aortic valve area is 1.17 cm? with a peak gradient of 24 and mean gradient of 14 dimensionless index of 0.37 Cardiac Risk Factors age (male over 45, female over 55), hyperlipidemia, hypertension, family history of CAD PAST MEDICAL HISTORY Diagnosis Date Congenital tracheoesophageal fistula, esophageal atresia and stenosis Diverticulosis of colon with hemorrhage Essential hypertension 07/24/2017 GERD (gastroesophageal reflux disease) 07/24/2017 Stricture and stenosis of esophagus PAST SURGICAL HISTORY Procedure Laterality Date EGD FLEXIBLE FOREIGN BODY REMOVAL 07/24/13 distal stenosis ESOPHAGOSCOPY FLEX BALLOON DILAT <30 MM DIAM 06/27/2008 Esophageal dilatation ESOPHAGOSCOPY FLEX BALLOON DILAT <30 MM DIAM 07/25/08 ESOPHAGOSCOPY FLEXIBLE REMOVAL FOREIGN BODY 05/27/08 ER [facility] PAST SURGICAL HISTORY OF Mid COLON RESECTION REPAIR INGUINAL HERNIA Left 07/25/2017 FAMILY HISTORY Problem Relation Age of Onset Cancer Mother colon Cancer Father ? Social History Tobacco Use Smoking status: Former Current packs/day: 0.00 Average packs/day: 1 pack/day for 25.0 years (25.0 ttl pk-yrs) Types: Cigarettes Start date: 06/02/1952 Quit date: 06/02/1977 Years since quittin.6 Smokeless tobacco: Never Vaping Use Vaping status: Never Used Substance Use Topics Alcohol use: No Drug use: No ALLERGIES Allergen Reactions Eggs [Egg] Hives, Shortness of Breath Medications: Current Outpatient Medications Medication Sig Dispense Refill tamsulosin (FLOMAX) 0.4 mg Take 1 capsule by mouth every afternoon. cyanocobalamin, vitamin B-12, (VITAMIN B-12 ORAL) B-12 CAPS [id number] e-mv 1.5 mg iron- 8.73 mg CpID Take by mouth. ferrous sulfate (IRON ORAL) Take by mouth. OMEPRAZOLE (PRILOSEC ORAL) Take by mouth. lisinopril (ZESTRIL) 10 mg tablet Take 1 tablet by mouth once daily. 30 tablet 4 No current facility-administered medications for this visit. Review of Systems Constitutional: Negative for chills, diaphoresis, fever, malaise/fatigue and weight loss. HENT: Negative for congestion, ear discharge, ear pain, hearing loss, nosebleeds, sinus pain, sore throat and tinnitus. Eyes: Negative for blurred vision, double vision, photophobia, pain, discharge and redness. Respiratory: Negative for cough, hemoptysis, sputum production, shortness of breath, wheezing and stridor. Cardiovascular: Negative for chest pain, palpitations, orthopnea, claudication, leg swelling and PND. Gastrointestinal: Negative for abdominal pain, blood in stool, constipation, diarrhea, heartburn, melena, nausea and vomiting. Genitourinary: Negative for dysuria, flank pain, frequency, hematuria and urgency. Musculoskeletal: Negative for back pain, falls, joint pain, myalgias and neck pain. Skin: Negative for itching and rash. Neurological: Negative for dizziness, tingling, tremors, sensory change, speech change, focal weakness, seizures, loss of consciousness, weakness and headaches. Endo/Heme/Allergies: Negative for environmental allergies and polydipsia. Does not bruise/bleed easily. Psychiatric/Behavioral: Negative for depression, hallucinations, memory loss, substance abuse and suicidal ideas. The patient is not nervous/anxious and does not have insomnia. Physical Examination: Vitals:BP 138/95 Pulse 92 Temp 92 Ht 5' 5 (1.65m) Wt 152 lb (68.9kg) SpO2 96% BMI 25.29 kg/(m2). BP w/Orthostatic Vitals Date and Time Orthostatic BP Orthostatic Pulse BP Pulse BP Position BP Site BP Cuff Size 01/22/24 1515 -- -- 138/95 92 (more content not included)... Normal [address] 11-25-2023 36 Your fax has been successfully sent to Dr. Daniel Perez at [phone]. -------- -------- 11/25/2023 9:26:49 AM Conversion Record Successfully created cover sheet. Type: application/vnd.openxmlfor mats-officedocument.wordpr ocessingml.document G3 to TIFF #1: Success [image/g3] (37ms) GhostScript TIFF #1: Success [image/tiff] (198ms) Resubmitted: [application/postscript] Word Automation #1: Success [image/tiff] (1499ms) ([facility]-[id number]:WORKSRV4) 11/25/2023 9:26:33 AM Conversion Record [[id number].[email or web address].PRT] Type: application/postscript G3 to TIFF #1: Success [image/g3] (57ms) GhostScript TIFF #1: Success [image/tiff] (299ms) ([id number]:WORKSRV1) 11/25/2023 9:26:26 AM Origin Record Created by LADAN 11/25/2023 9:26:20 AM Transmission Record Sent to [phone] with remote ID [id number] Result: (0) Success Page record: 1 - 3 Elapsed time: 01:31 on channel 51 [facility] 36 S: Patient's david jeffries with [facility] nurse regarding Refill. B: Will be out tomorrow. A: Lisinopril 5 mg every day, [facility] in [place]. R: Instructed to check with the pharmacy to see if they can get 1-2 pills until the office opens. Patient understands care advice. No further needs at this time. Patient instructed to call back with new or worsening symptoms. Reason for Disposition [1] Prescription refill request for NON-ESSENTIAL medicine (i.e., no harm to patient if med not taken) AND [2] triager unable to refill per department policy Protocols used: Medication Refill and Renewal [facility] CBC W Auto Differential pane l (Bld)on 11-10-2023 Basophils (Bld) [#/Vol] 0.06 10*3/uL Normal <0.11 [facility] Comment on above: Order Comment: Speci men Type: BLOOD SPECIMENOrdering Facility: [facility] Address: [address] [place] [address] Performed By: #### 5 7021-8 ####[facility] LABCLIA [id number] [place] [address] [place] Basophils/100 WBC (Bld) 0.6 % Normal [facility] Comment on above: Order Comment: Speci men Type: BLOOD SPECIMENOrdering Facility: [facility] Address: [address] [place] [address] Performed By: #### 5 7021-8 ####[facility] LABCLIA [id number] [place] [address] [place] Differential cell count method Nom (Bld) Auto Normal [facility] Comment on above: Order Comment: Speci men Type: BLOOD SPECIMENOrdering Facility: [facility] Address: [address] [place] [address] Performed By: #### 5 7021-8 ####[facility] LABCLIA [id number] [place] [address] [place] Eosinophils (Bld) [#/Vol] 0.71 10*3/uL High <0.46 [facility] Comment on above: Order Comment: Speci men Type: BLOOD SPECIMENOrdering Facility: [facility] Address: [address] [place] [address] Performed By: #### 5 7021-8 ####[facility] LABCLIA [id number] [place] [address] [place] Eosinophils/100 WBC (Bld) 7.6 % Normal [facility] Comment on above: Order Comment: Speci men Type: BLOOD SPECIMENOrdering Facility: [facility] Address: [address] [place] [address] Performed By: #### 5 7021-8 ####[facility] LABCLIA [id number] [place] [address] [place] Erythrocyte distribution width (RBC) [Ratio] 14.0 % Normal 11.5-15.0 [facility] Comment on above: Order Comment: Speci men Type: BLOOD SPECIMENOrdering Facility: [facility] Address: [address] [place] [address] Performed By: #### 5 7021-8 ####[facility] LABCLIA [id number] [place] [address] [place] Hematocrit (Bld) [Volume fraction] 42.5 % Normal 39.0-51.0 [facility] Comment on above: Order Comment: Speci men Type: BLOOD SPECIMENOrdering Facility: [facility] Address: [address] [place] [address] Performed By: #### 5 7021-8 ####[facility] LABIA [id number] [place] [address] [place] Hemoglobin (Bld) [Mass/Vol] 13.6 g/dL Normal 13.0-17.0 [facility] Comment on above: Order Comment: Speci men Type: BLOOD SPECIMENOrdering Facility: [facility] Address: [address] [place] [address] Performed By: #### 5 7021-8 ####[facility] LABIA [id number] [place] [address] [place] Immature granulocytes (Bld) [#/Vol] 0.03 10*3/uL Normal <0.10 [facility] Comment on above: Order Comment: Speci men Type: BLOOD SPECIMENOrdering Facility: [facility] Address: [address] [place] [address] Performed By: #### 5 7021-8 ####[facility] LABCLIA [id number] [place] [address] [place] Immature granulocytes/100 WBC (Bld) 0.3 % Normal [facility] Comment on above: Order Comment: Speci men Type: BLOOD SPECIMENOrdering Facility: [facility] Address: [address] [place] [address] Performed By: #### 5 7021-8 ####[facility] LABCLIA [id number] [place] [address] [place] Lymphocytes (Bld) [#/Vol] 2.24 10*3/uL Normal 1.00-4.00 [facility] Comment on above: Order Comment: Speci men Type: BLOOD SPECIMENOrdering Facility: [facility] Address: [address] [place] [address] Performed By: #### 5 7021-8 ####[facility] LABCLIA [id number] [place] [address] [place] Lymphocytes/100 WBC (Bld) 23.9 % Normal [facility] Comment on above: Order Comment: Speci men Type: BLOOD SPECIMENOrdering Facility: [facility] Address: [address] [place] [address] Performed By: #### 5 7021-8 ####[facility] LABCLIA [id number] [place] [address] [place] MCH (RBC) [Entitic mass] 30.4 pg Normal 26.0-34.0 [facility] Comment on above: Order Comment: Speci men Type: BLOOD SPECIMENOrdering Facility: [facility] Address: [address] [place] [address] Performed By: #### 5 7021-8 ####[facility] LABCLIA [id number] [place] [address] [place] MCHC (RBC) [Mass/Vol] 32.0 g/dL Normal 30.5-36.0 [facility] Comment on above: Order Comment: Speci men Type: BLOOD SPECIMENOrdering Facility: [facility] Address: [address] [place] [address] Performed By: #### 5 7021-8 ####[facility] LABCLIA [id number] [place] [address] [place] MCV (RBC) [Entitic vol] 95.1 fL Normal 80.0-100.0 [facility] Comment on above: Order Comment: Speci men Type: BLOOD SPECIMENOrdering Facility: [facility] Address: [address] [place] [address] Performed By: #### 5 7021-8 ####[facility] LABCLIA [id number] [place] [address] [place] Monocytes (Bld) [#/Vol] 0.98 10*3/uL High <0.87 [facility] Comment on above: Order Comment: Speci men Type: BLOOD SPECIMENOrdering Facility: [facility] Address: [address] [place] [address] Performed By: #### 5 7021-8 ####[facility] LABCLIA [id number] [place] [address] [place] Monocytes/100 WBC (Bld) 10.5 % Normal [facility] Comment on above: Order Comment: Speci men Type: BLOOD SPECIMENOrdering Facility: [facility] Address: [address] [place] [address] Performed By: #### 5 7021-8 ####[facility] LABCLIA [id number] [place] [address] [place] Neutrophils (Bld) [#/Vol] 5.35 10*3/uL Normal 1.45-7.50 [facility] Comment on above: Order Comment: Speci men Type: BLOOD SPECIMENOrdering Facility: [facility] Address: [address] [place] [address] Performed By: #### 5 7021-8 ####[facility] LABCLIA [id number] [place] [address] [place] Neutrophils/100 WBC (Bld) 57.1 % Normal [facility] Comment on above: Order Comment: Speci men Type: BLOOD SPECIMENOrdering Facility: [facility] Address: [address] [place] [address] Performed By: #### 5 7021-8 ####[facility] LABCLIA [id number] [place] [address] [place] Nucleated RBC (Bld) [#/Vol] 10*3/uL Normal <0.01 [facility] Comment on above: Order Comment: Speci men Type: BLOOD SPECIMENOrdering Facility: [facility] Address: [address] [place] [address] Performed By: #### 5 7021-8 ####[facility] LABCLIA [id number] [place] [address] [place] Nucleated RBC/100 WBC (Bld) [Ratio] 0.0 /100 WBC Normal [facility] Comment on above: Order Comment: Speci men Type: BLOOD SPECIMENOrdering Facility: [facility] Address: [address] [place] [address] Performed By: #### 5 7021-8 ####[facility] LABCLIA [id number] [place] [address] [place] Platelet mean volume (Bld) [Entitic vol] 11.6 fL Normal 9.0-12.7 [facility] Comment on above: Order Comment: Speci men Type: BLOOD SPECIMENOrdering Facility: [facility] Address: [address] [place] [address] Performed By: #### 5 7021-8 ####[facility] LABCLIA [id number] [place] [address] [place] Platelets (Bld) [#/Vol] 187 10*3/uL Normal 150-400 [facility] Comment on above: Order Comment: Speci men Type: BLOOD SPECIMENOrdering Facility: [facility] Address: [address] [place] [address] Performed By: #### 5 7021-8 ####[facility] LABCLIA [id number] [place] [address] [place] RBC (Bld) [#/Vol] 4.47 10*6/uL Normal 4.20-6.00 [facility] Comment on above: Order Comment: Speci men Type: BLOOD SPECIMENOrdering Facility: [facility] Address: [address] [place] [address] Performed By: #### 5 7021-8 ####[facility] [id number] [place] [address] [place] WBC (Bld) [#/Vol] 9.37 10*3/uL Normal 3.70-11.00 [facility] Comment on above: Order Comment: Speci men Type: BLOOD SPECIMENOrdering Facility: [facility] Address: [address] [place] [address] Performed By: #### 5 7021-8 ####[facility] [id number] [address] [facility]ITALZaynab 11-10-2023 FRANCESN Telephone (MEKHIO) -- AYESHA JACOBSEN ([id number]) 1935 M Date Time Provider Department 11/10/23 MARY LYNN During your visit today, we recorded the following information about you: Mary Lynn, AYLEEN.INSTRUCTIONAL SYSTEMS SPECIALIST 11/10/2023 10:53 AM Signed After review of pt's chart. Anesthesia request a formal cardiac consult. Order placed. Surgery is schedueld for this upcoming Monday. Please postpone until clearance is received. Nilson Hernandez, He has new diagnosis of CHF and and is 88 years old. The risk is too high to proceed without cardiology input. Postpone surgery. Consult cardiology. Abby VidalesPriscilla weaver 11/10/2023 12:31 PM Signed OK, please let him know he will be cancelled for Monday. Let's try to get a cardiology appointment soon . Thanks Priscilla Parker 11/10/2023 12:31 PM Signed Patient accepted sooner date for cardiology of 12/11/2023 Surgery date to be determined upon clearance ' Priscilla Colindres Supervisor Beam Department Priscilla Colindres 12/12/2023 2:58 PM Signed Patient did not complete 12/10 cardiology visit as it was cancelled due to provider being out. Please reach out to patient and schedule as soon as possible as he is wishing to have his hernia surgery completed. Priscilla Colindres Supervisor Beam Department Livia Oshea, MADONNA 12/13/2023 8:38 AM Signed Attempted to call patient and left VM. Next new consult opening is 06/24/24. If patient calls back ask if he is willing to travel to other locations for cardiology appointment and if so what other locations is he willing to go to? Will reach out to [facility] to see if they will be able to get him in sooner. Billie Dent 12/13/2023 9:18 AM Signed First attempt at contacting patient, no answer, unable to leave VM, will try again later Emerald Starks 12/14/2023 10:00 AM Signed Second Attempt- Called pt and left vm to call back to get schedule Emerald Starks 12/18/2023 10:53 AM Signed Third attempt- called pt and left vm Priscilla Colindres 01/25/2024 11:32 AM Signed Cardiac clearance sent to Dr. Hall for clearance for patient to be able to schedule hernia repair surgery with Dr. Espinal in [place] again Priscilla Colindres Supervisor Beam Department Priscilla Colindres 02/05/2024 3:19 PM Signed Per office note from Dr. Hall 01/22/2024 3. Preoperative clearance - ICD9: V72.84, ICD10: Z01.818 Patient cleared for his hernia surgery with mild to moderate risk Allergies As of Date: 11/10/2023 Noted Allergy Reaction EGGS (EGG) 12/14/2015 4 - Hives 12 - Shortness of Breath Date Reviewed: 11/10/2023 Reviewed by: Mary Lynn APRN.INSTRUCTIONAL SYSTEMS SPECIALIST - Fully Assessed Reason for Visit: Cardiac Clearance [4105] Primary Visit Diagnosis:Pre-operative examination [Z01.818] Order(s):CONSULT TO CARDIOLOGY [9004] Order #: [id number]: 1 FUTURE Prescriptions as of 02/05/2024 - lisinopril (ZESTRIL) 10 mg tablet Take 1 tablet by mouth once daily. - tamsulosin (FLOMAX) 0.4 mg Take 1 capsule by mouth every afternoon. - cyanocobalamin, vitamin B-12, (VITAMIN B-12 ORAL) B-12 CAPS - idwo-WN-foc-pts-XRI-AYLC-b e-mv 1.5 mg iron- 8.73 mg CpID Take by mouth. - ferrous sulfate (IRON ORAL) Take by mouth. - OMEPRAZOLE (PRILOSEC ORAL) Take by mouth. Problem List As Of Date 11/10/2023 Noted Resolved Esophageal foreign body [T18.108A] 07/25/2013 07/24/2017 Left inguinal hernia [K40.90] 07/19/2017 Essential hypertension [I10] 07/24/2017 GERD (gastroesophageal reflux disease) [K21.9] 07/24/2017 VHD (valvular heart disease) [I38] 11/10/2023 BPH (benign prostatic hyperplasia) [N40.0] 11/10/2023 Former smoker [Z87.891] 11/10/2023 Esophageal stricture [K22.2] 11/10/2023 Asthma [J45.909] 11/10/2023 Encounter Status:Closed by EMERALD STARKS on 12/14/23 Normal [facility] Comprehensive metabolic 2000 panelon 11-10-2023 Albumin [Mass/Vol] 3.7 g/dL Low 3.9-4.9 [facility] Comment on above: Order Comment: Speci men Type: BLOOD SPECIMENOrdering Facility: [facility] Address: [address] [place] [address] Performed By: #### 2 4323-8 ####[facility] LABCLIA [id number] [place] [address] [address] [place] ALP [Catalytic activity/Vol] 70 U/L Normal 38-113 [facility] Comment on above: Order Comment: Speci men Type: BLOOD SPECIMENOrdering Facility: [facility] Address: [address] [place] [address] Performed By: #### 2 4323-8 ####[facility] LABCLIA [id number] [place] [address] [place] ALT [Catalytic activity/Vol] 7 U/L Low 10-54 [facility] Comment on above: Order Comment: Speci men Type: BLOOD SPECIMENOrdering Facility: [facility] Address: [address] [place] [address] Performed By: #### 2 4323-8 ####[facility] LABCLIA [id number] [place] [address] [place] Anion gap [Moles/Vol] 11 mmol/L Normal 8-15 [facility] Comment on above: Order Comment: Speci men Type: BLOOD SPECIMENOrdering Facility: [facility] Address: [address] [place] [address] Performed By: #### 2 4323-8 ####[facility] LABCLIA [id number] [place] [address] [place] AST [Catalytic activity/Vol] 17 U/L Normal 14-40 [facility] Comment on above: Order Comment: Speci men Type: BLOOD SPECIMENOrdering Facility: [facility] Address: [address] [place] [address] Performed By: #### 2 4323-8 ####[facility] LABCLIA [id number] [place] [address] [place] Bilirubin [Mass/Vol] 0.6 mg/dL Normal 0.2-1.3 [facility] Comment on above: Order Comment: Speci men Type: BLOOD SPECIMENOrdering Facility: [facility] Address: [address] [place] [address] Performed By: #### 2 4323-8 ####[facility] LABCLIA [id number] [place] [address] [place] Calcium [Mass/Vol] 9.5 mg/dL Normal 8.5-10.2 [facility] Comment on above: Order Comment: Speci men Type: BLOOD SPECIMENOrdering Facility: [facility] Address: [address] [place] [address] Performed By: #### 2 4323-8 ####[facility] LABCLIA [id number] [place] [address] [place] Chloride [Moles/Vol] 110 mmol/L High 98-107 [facility] Comment on above: Order Comment: Speci men Type: BLOOD SPECIMENOrdering Facility: [facility] Address: [address] [place] [address] Performed By: #### 2 4323-8 ####[facility] LABCLIA [id number] [place] [address] [place] CO2 [Moles/Vol] 24 mmol/L Normal 22-30 [facility] Comment on above: Order Comment: Speci men Type: BLOOD SPECIMENOrdering Facility: [facility] Address: [address] [place] [address] Performed By: #### 2 4323-8 ####[facility] LABCLIA [id number] [place] [address] [place] Creatinine [Mass/Vol] 1.16 mg/dL Normal 0.73-1.22 [facility] Comment on above: Order Comment: Speci men Type: BLOOD SPECIMENOrdering Facility: [facility] Address: [address] [place] [address] Performed By: #### 2 4323-8 ####[facility] LABCLIA [id number] [place] [address] [place] Creatinine and Glomerular filtration rate.predicted panel (S/P/Bld) 61 mL/min/1.73m??? Normal >=60 [facility] Comment on above: Order Comment: Jame amaya Type: BLOOD SPECIMENOrdering Facility: [facility] Address: [address] [place] [address] Result Comment: Radha mated Glomerular Filtration Rate (eGFR) is calculated using the 2020 CKD-EPI creatinine equation. This equation utilizes serum creatinine, sex, and age as parameters. The creatinine assay has traceable calibration to isotope dilution-mass spectrometry. Refer to KDIGO guidelines for clinical interpretation. In patients with unstable renal function, e.g. those with acute kidney injury, the eGFR may not accurately reflect actual GFR. Performed By: #### 2 4323-8 ####[facility] LABIA [id number] [place] [address] [place] Glucose [Mass/Vol] 76 mg/dL Normal 74-99 [facility] Comment on above: Order Comment: Jame amaya Type: BLOOD SPECIMENOrdering Facility: [facility] Address: [address] [place] [address] Result Comment: The [place] Diabetes Association (ADA) provides guidance for cutoff values for fasting glucose and random glucose. The ADA defines fasting as no caloric intake for at least 8 hours. Fasting plasma glucose results between 100 to 125 mg/dL indicate increased risk for diabetes (prediabetes). Fasting plasma glucose results greater than or equal to 126 mg/dL meet the criteria for diagnosis of diabetes. In the absence of unequivocal hyperglycemia, results should be confirmed by repeat testing. In a patient with classic symptoms of hyperglycemia or hyperglycemic crisis, random plasma glucose results greater than or equal to 200 mg/dL meet the criteria for diagnosis of diabetes. Reference: Standards of Medical Care in Diabetes 2016, [place] [employer] Association. Diabetes Care. 2016.39(Suppl 1). Performed By: #### 2 4323-8 ####[facility] LABIA [id number] [place] [address] [place] Potassium [Moles/Vol] 4.3 mmol/L Normal 3.7-5.1 [facility] Comment on above: Order Comment: Jame amaya Type: BLOOD SPECIMENOrdering Facility: [facility] Address: [address] [place] [address] Performed By: #### 2 4323-8 ####[facility] LABCLIA [id number] [place] [address] [place] Protein [Mass/Vol] 6.4 g/dL Normal 6.3-8.0 [facility] Comment on above: Order Comment: Speci men Type: BLOOD SPECIMENOrdering Facility: [facility] Address: [address] [place] [address] Performed By: #### 2 4323-8 ####[facility] LABCLIA [id number] [place] [address] [place] Sodium [Moles/Vol] 145 mmol/L High 136-144 [facility] Comment on above: Order Comment: Speci men Type: BLOOD SPECIMENOrdering Facility: [facility] Address: [address] [place] [address] Performed By: #### 2 4323-8 ####[facility] LABCLIA [id number] [place] [address] [place] Urea nitrogen [Mass/Vol] 23 mg/dL Normal 9-24 [facility] Comment on above: Order Comment: Speci men Type: BLOOD SPECIMENOrdering Facility: [facility] Address: [address] [place] [address] Performed By: #### 2 4323-8 ####[facility] LABCLIA [id number] [place] [id number] [place] [id number] 11-10-2023 ECG01 Ventricular Rate : 9 2 BPM Atrial Rate : 92 BPM P-R Interval : 194 ms QRS Duration : 98 ms Q-T Interval : 388 ms QTC Calculation(Bazett) : 479 ms Calculated P [place] : 43 degrees Calculated R [place] : -38 degrees Calculated T [place] : 43 degrees SINUS RHYTHM WITH FREQUENT PREMATURE VENTRICULAR COMPLEXES LEFT AXIS DEVIATION INFERIOR MYOCARDIAL INFARCTION , AGE UNDETERMINED ABNORMAL ECG Confirmed by AYESHA PECK DO ([id number]) on 11/14/2023 1:06:01 PM NAME : AYESHA JACOBSEN PID : [id number] : 1935 Gender : Male Race : ORD : Procedure Date : Nov 10 2023 09:43:36 Edit Date : Nov 14 2023 13:06:05 Diagnosis: SINUS RHYTHM WITH FREQUENT PREMATURE VENTRICULAR COMPLEXES LEFT AXIS DEVIATION INFERIOR MYOCARDIAL INFARCTION , AGE UNDETERMINED ABNORMAL ECG Confirmed by AYESHA PECK DO ([id number]) on 11/14/2023 1:06:01 PM Test Reason : Location : 636 : [facility] Overread By : AYESHA PECK DO Edited By : AYESHA PECK DO Referred By : JACQUELINE ESPINAL Acquired by : Eric jj [facility] HISTORY PHYSICALon HISTORY PHYSICAL HNO ID: [id number] Author: MARY LYNN APRN.CNP Service: ? Author Type: Nurse Practitioner Type: H&P Filed: 11/10/2023 10:54 Note Text: [facility] HISTORY AND PHYSICAL EXAMINATION SERVICE DATE: 11/10/2023 SERVICE TIME: 9:40 AM PRIMARY CARE PHYSICIAN: Daniel Perez MD Assessment Patient has the following medical conditions which may affect mile-operative course: Essential hypertension Assessment: controlled on rx Last 14 BP Last 14 Encounter BP Readings: Date: BP: 11/10/2023 122/76 10/27/2023 138/80 10/10/2023 134/84 07/24/2017 159/83 07/19/2017 157/76 07/19/2017 163/86 12/14/2015 120/72 VHD (valvular heart disease) Assessment: new finding on echo ordered by surgeon, AVS moderate, AV 1.17cm2, trace-1+ MVR, trace-1+ TVR, 1+-2+ PVR, email to anesthesia. Pt denies sob, BOYCE, orthopnea, CP, palpitations Recent Results (from the past 26649 hour(s)) ECHO Collection Time: 10/19/23 1:39 PM Impression CONCLUSIONS: - Exam indication: Cardiac murmur - The left ventricle is normal in size. Left ventricular systolic function is mildly decreased. EF = 46 ? 5% (2D biplane) Indeterminate left ventricular diastolic dysfunction. - The right ventricle is normal in size. Right ventricular systolic function is normal. - The left atrial cavity is mildly dilated. - Tricuspid aortic valve. There is moderate aortic valve stenosis caused by calcified valve. AV area is 1.17 cm? (0.65 cm?/m?) by continuity, VTI. The peak gradient is 24 mmHg, the mean gradient is 14 mmHg and the dimensionless valve index is 0.37. - The patient has not had a prior CC echocardiographic exam for comparison. * * * Final * * * GERD (gastroesophageal reflux disease) Assessment: controlled on rx BPH (benign prostatic hyperplasia) Assessment: controlled on rx Former smoker Assessment: 1ppd/40 years, denies asthma or COPD, pulse of 95% on RA, lungs CTA Esophageal stricture Assessment: hx dilation Asthma Assessment: pt states since childhood, does not use any inhalers, no PFT's on file, pt presented Monday with surgery on Monday Branch Activity Status Index: METS: Climb a flight of stairs or walk up a hill (5.50 METs) DASI Score: 5.5 Patient denies any chest pain or undue shortness of breath with the above physical activity. Clinical Frailty Scale: 3. Well, with treated comorbid disease STOP-Bang Score: Has or is being treated for high blood pressure Patient over 50 years old Male patient Denies snoring loudly Denies feeling tired, fatigued, or sleepy during the daytime Has not been observed to stop breathing or choking/gasping during sleep BMI less than or equal to 35 kg/m2 Does not have a large neck STOP-Bang Score: 3 [id number] Score: Age: >=75 Sex: male CHF history: No Hypertension history: Yes Stroke/TIA/thromboembolism history: No Vascular disease history: No Diabetes history: No [id number] Score: 3 ARISCAT Score: Age: >80 Preoperative SpO2: 91-95% Respiratory infection in the last month: No Preoperative anemia: Yes Surgical incision: peripheral Duration of surgery: 2-3 hrs Emergency procedure: No ARISCAT Score: 51 ANESTHESIA FINDINGS: Intubation History: No history of difficult intubation Significant Anesthesia Considerations: none Airway History: No history of difficult airway I - PHYSICAL EVALUATION AIRWAY Patient intubated: No. Tracheostomy tube not present Mallampati: I. TM distance: >3 FB. Neck ROM: full ROM without neurological symptoms. Mouth opening: adequate. Short neck: no. Thick neck: no Edmond present: no Lip Bite Test: I Microretrognathia/Micronag thia/Recessed Chin: No DENTAL Dental findings: teeth intact. II - ANESTHESIA PLAN Anesthetic Plan: other Beta Tj Monitoring Plan Post Procedure Analgesic Plan Informed Consent Anesthetic risks, benefits, alternatives, personnel and consent discussed: yes. Patient / Responsible Democrat agrees to proceed: yes Patient / Surrogate agrees to blood products: blood products not planned Discussed the possibility of lip / dental damage: yes Prepared for Surgery: optimally prepared for surgery, pending [see comment]. Labs, EKG Email to anesthesia reviewing echo results AVS-JL After review anesthesia requests formal cardiac evaluation prior to surgery, see TE CONSULTS: The following consults have been initiated at this time: cardiology. Planned Anesthetic: other anesthesia choice The Following Tests/Procedures Have Been Initiated: Orders Placed This Encounter >CBC + AUTO DIFF Standing Status: Future Standing Expiration Date: 02/09/2024 >CMP Standing Status: Future Standing Expiration Date: 02/09/2024 ECG COMPLETE Standing Status: Future Standing Expiration Date: 11/09/2024 REASON FOR VISIT: Ro (more content not included)... Normal [facility] CNOVon 10-27-2023 CNOV Office Visit (GENSWS ) -- AYESHA JACOBSEN ([id number]) 1935 M Date Time Provider Department 10/27/23 3:00 PM JACQUELINE ESPINAL During your visit today, we recorded the following information about you: Temperature Pulse Blood pressure Weight 97.7 degrees 104/minute 138/80 69.5 kg Height 1.651 m Jacqueline Espinal MD 10/27/2023 5:21 PM Signed HISTORY AND PHYSICAL Ayesha Jacobsen 1935 REFERRING PHYSICIAN: Daniel Perez MD CHIEF COMPLAINT: Consult (Right hernia repair) HPI: Ayesha is a 88 year old male with a complaint of a bulge and discomfort in his right inguinal region. The patient notes discomfort in this area with lifting, coughing, and moving. The symptoms have increased, over the past 2 months. The patient notes no symptoms of bowel obstruction and denies nausea or vomiting. The patient was seen by his primary care physician who felt the patient has a hernia. Ayesha was referred for evaluation and treatment. The patient undergone a previous laparoscopic left inguinal hernia repair he noted that he and his had noted that he had a long time waking up from anesthesia. The patient denies any cardiac issues. The patient is being seen by me at the request of Dr. Daniel Perez MD for my opinion and advice regarding symptomatic right inguinal hernia. His daughter Shay, my former office nurse also wished him to see me. He was found to have a systolic ejection murmur on his last office visit. I ordered an echocardiogram. This was obtained on October 19, 2023. This demonstrated: CONCLUSIONS: - Exam indication: Cardiac murmur - The left ventricle is normal in size. Left ventricular systolic function is mildly decreased. EF = 46 ? 5% (2D biplane) Indeterminate left ventricular diastolic dysfunction. - The right ventricle is normal in size. Right ventricular systolic function is normal. - The left atrial cavity is mildly dilated. - Tricuspid aortic valve. There is moderate aortic valve stenosis caused by calcified valve. AV area is 1.17 cm? (0.65 cm?/m?) by continuity, VTI. The peak gradient is 24 mmHg, the mean gradient is 14 mmHg and the dimensionless valve index is 0.37. - The patient has not had a prior CC echocardiographic exam for comparison. PAST MEDICAL HISTORY Diagnosis Date Congenital tracheoesophageal fistula, esophageal atresia and stenosis Diverticulosis of colon with hemorrhage Essential hypertension 07/24/2017 GERD (gastroesophageal reflux disease) 07/24/2017 Stricture and stenosis of esophagus PAST SURGICAL HISTORY Procedure Laterality Date EGD FLEXIBLE FOREIGN BODY REMOVAL 07/24/13 distal stenosis ESOPHAGOSCOPY FLEX BALLOON DILAT <30 MM DIAM 06/27/2008 Esophageal dilatation ESOPHAGOSCOPY FLEX BALLOON DILAT <30 MM DIAM 07/25/08 ESOPHAGOSCOPY FLEXIBLE REMOVAL FOREIGN BODY 05/27/08 ER [facility] PAST SURGICAL HISTORY OF Mid COLON RESECTION REPAIR INGUINAL HERNIA Left 07/25/2017 Current Outpatient Medications Medication Sig tamsulosin (FLOMAX) 0.4 mg Take 1 capsule by mouth every afternoon. cyanocobalamin, vitamin B-12, (VITAMIN B-12 ORAL) B-12 CAPS [id number] e-mv 1.5 mg iron- 8.73 mg CpID Take by mouth. ferrous sulfate (IRON ORAL) Take by mouth. lisinopril 2.5 mg tablet Take 5 mg by mouth once daily. Pt take .5 tablets once daily OMEPRAZOLE (PRILOSEC ORAL) Take by mouth. No current facility-administered medications for this visit. ALLERGIES: Eggs [Egg] PERSONAL HISTORY: Social History Tobacco Use Smoking status: Former Packs/day: 1.00 Years: 25.00 Additional pack years: 0.00 Total pack years: 25.00 Types: Cigarettes Quit date: 06/02/1977 Years since quittin.4 Smokeless tobacco: Never Vaping Use Vaping Use: Never used Substance Use Topics Alcohol use: No Drug use: No FAMILY HISTORY: FAMILY HISTORY Problem Relation Age of Onset Cancer Mother colon Cancer Father ? REVIEW OF SYMPTOMS: The review of systems data was entered by the nurse and reviewed by me There are no exam notes on file for this visit. PHYSICAL EXAMINATION: General: The patient is 88 year old male, well nourished, well hydrated in no acute distress. The patient is oriented to time, place, and person. VITALS: Blood pressure 138/80, pulse 104, temperature 36.5 ?C (97.7 ?F), height 165.1 cm (5' 5), weight 69.5 kg (153 lb 3.2 oz), SpO2 98%. Body mass index is 25.49 kg/m?. HEENT: Normal cephalic, ataumatic, pupils are equally round, sclera are anicteric, mucous membranes are moist, oropharynx is clear. Neck has no masses, asymmetry or lymphadenopathy. Thyroid is unremarkable. Respiratory: Clear to auscultation and percussion. Normal respiratory excursion and pattern. Cardiac: Examination is regular rate, a systolic ejection murmur heard at the apex and axilla nonradiating to the carotids (more content not included)... Normal [facility] ECHOon 10-19-2023 Echocardiography Echocardiography Rep ort: Transthoracic Echo [facility] Date of service: 10/19/2023 1:39:14 PM CLEANER Ordering physician: JACQUELINE ESPINAL Indication: Cardiac murmur Technologist: Wendy Hernandez [facility] Interpreting physician: Ryan Naik DO PATIENT: Name: MR. AYESHA JACOBSEN : 1935 Age: 88 years Gender: M History of hypertension. Primary rhythm: sinus. Secondary rhythm: PVC. Height: 167.60 cm BSA: 1.80 m Weight: 69.67 kg BMI: 24.8 kg/m Heart rate 93 bpm Blood pressure 170/90 mmHg Color Doppler was utilized to interrogate the cardiac valves assessed and spectral Doppler was utilized to determine the flow velocities and pressure gradients reported in this exam. MEASUREMENTS: Value Indexed Normal Max aortic dimension 3.6 cm Ao < 3.8 Left atrial volume 68 ml (biplane A-L) 38 ml/m Marquez <= 34 LV ID (diastole) 4.7 cm (2D) 2.61 cm/m LV ID (systole) 2.8 cm (2D) 1.57 cm/m IVS, leaflet tips 1.1 cm (2D) Posterior wall thickness 1.1 cm (2D) Left ventricular mass 193 g (2D) 107 g/m LV stroke volume 49 ml (2D biplane) LVOT stroke volume 54 ml 30 ml/m LV end diastolic volume 107 ml (2D biplane) 59.2 ml/m 34<=EDVi<75 LV end systolic volume 57 ml (2D biplane) 31.9 ml/m Ejection Fraction 46 % (2D biplane) EF > 52 FINDINGS: LEFT VENTRICLE The left ventricle is normal in size. Left ventricular systolic function is mildly decreased. Indeterminate left ventricular diastolic dysfunction. Wall Motion: All scored segments are normal. RIGHT VENTRICLE The right ventricle is normal in size. Right ventricular systolic function is normal. RV systolic tissue Doppler velocity is 11.0 cm/s. Tricuspid annular displacement is 2.1 cm. Estimated right ventricular systolic pressure is 31 mmHg consistent with normal pulmonary artery pressures. Estimated right atrial pressure is 3 mmHg (although IVC not seen). LEFT ATRIUM The left atrial cavity is mildly dilated. RIGHT ATRIUM The right atrial cavity is normal in size. MITRAL VALVE There is mild mitral annular calcification observed posterior. There is trace (trace - 1+) mitral valve regurgitation. TRICUSPID VALVE The tricuspid valve leaflets are structurally normal. There is trace (trace - 1+) tricuspid valve regurgitation. AORTIC VALVE The aortic valve cusps are structurally normal. There is moderate aortic valve stenosis caused by calcified valve. There is trace aortic valve regurgitation. Tricuspid aortic valve. There is moderate thickening. There is moderate calcification. The peak gradient is 24 mmHg (peak velocity = 247.0 cm/s). The mean gradient is 14 mmHg. The LVOT mean velocity is 60.8 cm/s. The LVOT diameter is 2.0 cm. The aortic VTI is 46.6 cm. The mean velocity in the aortic valve is 174.9 cm/s. The dimensionless valve index is 0.37. AV area is 1.17 cm (0.65 cm /m ) by continuity, VTI. The LVOT stroke volume index is 30 ml/m . PULMONIC VALVE The pulmonic valve cusps are structurally normal. There is mild (1+ - 2+) pulmonic valve regurgitation. AORTA The visualized aorta is normal in size. Measurements - Mid ascending aorta 3.6 cm. Distal ascending aorta 3.6 cm. PERICARDIUM There is no pericardial effusion. There is an epicardial fat pad. CONCLUSIONS: - Exam indication: Cardiac murmur - The left ventricle is normal in size. Left ventricular systolic function is mildly decreased. EF = 46 5% (2D biplane) Indeterminate left ventricular diastolic dysfunction. - The right ventricle is normal in size. Right ventricular systolic function is normal. - The left atrial cavity is mildly dilated. - Tricuspid aortic valve. There is moderate aortic valve stenosis caused by calcified valve. AV area is 1.17 cm (0.65 cm /m ) by continuity, VTI. The peak gradient is 24 mmHg, the mean gradient is 14 mmHg and the dimensionless valve index is 0.37. - The patient has not had a prior CC echocardiographic exam for comparison. * * * Final * * * CC L8 [employer] Image : [id number] Normal [facility] CNOVon 10-10-2023 CNOV Office Visit (GENSWS ) -- SHIREENAYESHA JUAREZ ([id number]) 1935 M Date Time Provider Department 10/10/23 1:45 PM JACQUELINE ESPINAL During your visit today, we recorded the following information about you: Temperature Pulse Blood pressure Weight 98.5 degrees 120/minute 134/84 69.7 kg Christie Salguero, MADONNA 10/10/2023 2:04 PM Signed REVIEW OF SYSTEMS: General: The patient denies fatigue, denies weight loss, denies weight gain, denies feeling hot, and denies feelings of cold. Eyes: The patient denies glaucoma, NOTES eye injury/surgery, wears glasses or contacts. Ear/Nose/Throat: The patient NOTES allergies, denies hayfever, denies ear infections, and denies bloody noses. Cardiovascular: The patient denies chest pain, denies heart disease, NOTES high blood pressure,denies cardiac stent, denies prior heart attack, denies irregular heart beat, denies high cholesterol, denies poor circulation, denies heart failure, other cardiac issues, denies claudication, denies cold feet, denies peripheral arterial stent. Respiratory: The patient denies tuberculosis, denies pneumonia, denies frequent cough, denies pulmonary embolism, denies shortness of breath, and denies coughing up blood. Gastrointestinal: The patient denies difficulty swallowing, NOTES acid reflux, denies ulcers, denies vomiting, denies jaundice/hepatitis, denies gallbladder problems, denies black or tarry stools, denies hemorrhoids, denies bleeding from rectum, denies diverticulitis, denies constipation, denies diarrhea, denies loss of stool control, and NOTES hernias. Kidney/Bladder: The patient denies kidney stones, denies urine infections, and denies bloody urine. Skin: The patient denies a history of skin cancer, denies bleeding/changing moles, and denies a history of skin rash. Neurologic: The patient denies a history of epilepsy/convulsions, denies headaches, denies head/spinal injuries, and denies stroke/TIA. Psychiatric: The patient denies psychiatric medications, denies depression, and denies voices, denies substance abuse. Endocrine: The patient denies thyroid disorders, denies diabetes, and denies hormonal problems. Hematologic: The patient denies a history of bruising, denies bleeding, and NOTES anemia, denies blood clots. Infections: The patient NOTES a history of measles and mumps, denies rheumatic fever, and denies sexually transmitted diseases. Musculoskeletal: The patient denies back pain/injury, denies back problems, denies sciatica, denies knee/foot trouble, denies arthritis, or denies gout. When was patient's last Mammogram screening? N/A Last colonoscopy? 20 years ago MADONNA Keys Richard T, MD 10/10/2023 5:54 PM Signed HISTORY AND PHYSICAL Ayesha Jacobsen 1935 REFERRING PHYSICIAN: No ref. provider found CHIEF COMPLAINT: Consult (Right hernia repair) HPI: Ayesha is a 88 year old male with a complaint of a bulge and discomfort in his right inguinal region. The patient notes discomfort in this area with lifting, coughing, and moving. The symptoms have increased, over the past 2 months. The patient notes no symptoms of bowel obstruction and denies nausea or vomiting. The patient was seen by his primary care physician who felt the patient has a hernia. Ayesha was referred for evaluation and treatment. The patient undergone a previous laparoscopic left inguinal hernia repair he noted that he and his had noted that he had a long time waking up from anesthesia. The patient denies any cardiac issues. The patient is being seen by me today at the request of Dr. Daniel Perez MD for my opinion and advice regarding symptomatic right inguinal hernia. PAST MEDICAL HISTORY Diagnosis Date Congenital tracheoesophageal fistula, esophageal atresia and stenosis Diverticulosis of colon with hemorrhage Essential hypertension 07/24/2017 GERD (gastroesophageal reflux disease) 07/24/2017 Stricture and stenosis of esophagus PAST SURGICAL HISTORY Procedure Laterality Date EGD FLEXIBLE FOREIGN BODY REMOVAL 07/24/13 distal stenosis ESOPHAGOSCOPY FLEX BALLOON DILAT <30 MM DIAM 06/27/2008 Esophageal dilatation ESOPHAGOSCOPY FLEX BALLOON DILAT <30 MM DIAM 07/25/08 ESOPHAGOSCOPY FLEXIBLE REMOVAL FOREIGN BODY 05/27/08 ER [facility] PAST SURGICAL HISTORY OF Mid COLON RESECTION REPAIR INGUINAL HERNIA Left 07/25/2017 Current Outpatient Medications Medication Sig tamsulosin (FLOMAX) 0.4 mg Take 1 capsule by mouth every afternoon. cyanocobalamin, vitamin B-12, (VITAMIN B-12 ORAL) B-12 CAPS [id number]-b e-mv 1.5 mg iron- 8.73 mg CpID Take by mouth. ferrous sulfate (IRON ORAL) Take by mouth. lisinopril 2.5 mg tablet Take 5 mg by mouth once daily. Pt take .5 tablets once daily OMEPRAZOLE (PRILOSEC ORAL) Take by mouth. No current facility-administered medicatio (more content not included)... Normal [facility] CBC (INCLUDES DIFF/PLT)on Basophils (Bld) [#/Vol] 0.047 10*3/uL Normal 0-200 [facility] Comment on above: Performed By: #### 7 600, [id number], 2599 #### [facility] [address], [address] [place] [address] Artificial Breast Fabricator: Grady Gamino MD Basophils/100 WBC (Bld) 0.6 % Normal [facility] Comment on above: Performed By: #### 7 600, 54462, 4199 #### [facility] [place] [address] Artificial Breast Fabricator: Grady Gamino MD Eosinophils (Bld) [#/Vol] 0.34 10*3/uL Normal 15-500 [facility] Comment on above: Performed By: #### 7 600, 13996, 9099 #### [facility] [place] [address] Artificial Breast Fabricator: Grady Gaimno MD Eosinophils/100 WBC (Bld) 4.3 % Normal [facility] Comment on above: Performed By: #### 7 600, 46939, 4199 #### [facility] [address], [address] [place] [address] Artificial Breast Fabricator: Grady Gamino MD Erythrocyte distribution width (RBC) [Ratio] 13.0 % Normal 11.0-15.0 [facility] Comment on above: Performed By: #### 7 600, 33332, 6399 #### [facility] [place] [address] Artificial Breast Fabricator: Grady Gamino MD Hematocrit (Bld) [Volume fraction] 44.0 % Normal 38.5-50.0 [facility] Comment on above: Performed By: #### 7 600, 79208, 6399 #### [facility] [place] [address] Artificial Breast Fabricator: Grady Gamino MD Hemoglobin (Bld) [Mass/Vol] 14.3 g/dL Normal 13.2-17.1 [facility] Comment on above: Performed By: #### 7 600, , 6399 #### [facility] [place] [address] Artificial Breast Fabricator: Grady Gamino MD Lymphocytes (Bld) [#/Vol] 2.022 10*3/uL Normal 850-3900 [facility] Comment on above: Performed By: #### 7 600, 56380, 6399 #### [facility] [place] [address] Artificial Breast Fabricator: Grady Gamino MD Lymphocytes/100 WBC (Bld) 25.6 % Normal [facility] Comment on above: Performed By: #### 7 600, 10866, 6399 #### [facility] [place] [address] Artificial Breast Fabricator: Grady Gamino MD MCH (RBC) [Entitic mass] 29.7 pg Normal 27.0-33.0 [facility] Comment on above: Performed By: #### 7 600, 89561, 6399 #### [facility] [place] [address] Artificial Breast Fabricator: Grady Gamino MD MCHC (RBC) [Mass/Vol] 32.5 g/dL Normal 32.0-36.[address] [facility] Comment on above: Performed By: #### 7 600, 43314, 6399 #### [facility] [place] [address] Artificial Breast Fabricator: Grady Gamino MD MCV (RBC) [Entitic vol] 91.3 fL Normal 80.0-100.0 [facility] Comment on above: Performed By: #### 7 600, 16392, 6399 #### [facility] [place] [address] Artificial Breast Fabricator: Grady Gamino MD Monocytes (Bld) [#/Vol] 0.766 10*3/uL Normal 200-950 [facility] Comment on above: Performed By: #### 7 600, 30405, 6399 #### [facility] [place] [address] Artificial Breast Fabricator: Grady Gamino MD Monocytes/100 WBC (Bld) 9.7 % Normal [facility] Comment on above: Performed By: #### 7 600, , 6399 #### [facility] [place] [address] Artificial Breast Fabricator: Grady Gamino MD Neutrophils (Bld) [#/Vol] 4.724 10*3/uL Normal 4940-1383 [facility] Comment on above: Performed By: #### 7 600, 69166, 6399 #### [facility] [place] [address] Artificial Breast Fabricator: Grady Gamino MD Neutrophils/100 WBC (Bld) 59.8 % Normal [facility] Comment on above: Performed By: #### 7 600, 94558, 6399 #### [facility] [place] [address] Artificial Breast Fabricator: Grady Gamino MD Platelet mean volume (Bld) [Entitic vol] 10.5 fL Normal 7.5-12.5 [facility] Comment on above: Performed By: #### 7 600, 65676, 6399 #### [facility] of [address], [address] [place] [address] Artificial Breast Fabricator: Grady Gamino MD Platelets (Bld) [#/Vol] 152 10*3/uL Normal 140-400 [facility] Comment on above: Performed By: #### 7 600, 68779, 6399 #### [facility] of [address], [address] [place] [address] Artificial Breast Fabricator: Grady Gamino MD RBC (Bld) [#/Vol] 4.82 10*6/uL Normal 4.20-5.80 [facility] Comment on above: Performed By: #### 7 600, 36040, 6399 #### [facility] of [address], [address] [place] [address] Artificial Breast Fabricator: Grady Gamino MD WBC (Bld) [#/Vol] 7.9 10*3/uL Normal 3.8-10.8 [facility] Comment on above: Performed By: #### 7 600, 32202, 6399 #### [facility] of [address], [address] [place] [address] Artificial Breast Fabricator: Grady Gamino MD [facility] 09-30-2023 Albumin [Mass/Vol] 3.9 g/dL Normal 3.6-5.1 [facility] Comment on above: Performed By: #### 7 600, 59776, 6399 #### [facility] [place] [address] Artificial Breast Fabricator: Grady Gamino MD Albumin/Globulin [Mass ratio] 1.5 {ratio} Normal 1.0-2.5 [facility] Comment on above: Performed By: #### 7 600, 33642, 6399 #### [facility] of [place] [address] Artificial Breast Fabricator: Grady Gamino MD ALP [Catalytic activity/Vol] 56 U/L Normal 35-144 [facility] Comment on above: Performed By: #### 7 600, 48271, 6399 #### [facility] [address] [place] [address] Artificial Breast Fabricator: Grady Gamino MD ALT [Catalytic activity/Vol] 3 U/L Low 9-46 [facility] Comment on above: Performed By: #### 7 600, 17094, 6399 #### [facility] of [address], [address] [place] [address] Artificial Breast Fabricator: Grady Gamino MD AST [Catalytic activity/Vol] 14 U/L Normal 10-35 [facility] Comment on above: Performed By: #### 7 600, 94035, 6399 #### [facility] of [address], [address] [place] [address] Artificial Breast Fabricator: Grady Gamino MD Bilirubin [Mass/Vol] 0.9 mg/dL Normal 0.2-1.2 [facility] Comment on above: Performed By: #### 7 600, 45956, 6399 #### [facility] of [address], [address] [place] [address] Artificial Breast Fabricator: Grady Gamino MD BUN/CREATININE RATIO SEE NOTE: Normal 6-22 Ques t Diagnostics Comment on above: Result Comment: Not Reported: BUN and Creatinine are within reference range. Performed By: #### 7 600, [id number], [id number] #### [facility] of [address], [address] [place] [address] Artificial Breast Fabricator: Grady Gamino MD Calcium [Mass/Vol] 9.2 mg/dL Normal 8.6-10.3 [facility] Comment on above: Performed By: #### 7 600, 68754, 6399 #### [facility] of [address], [address] [place] [address] Artificial Breast Fabricator: Grady Gamino MD Chloride [Moles/Vol] 106 mmol/L Normal 98-110 Ques t [facility] Comment on above: Performed By: #### 7 600, [id number], 6399 #### [facility] of [address], [address] [place] [address] Artificial Breast Fabricator: Grady Gamino MD CO2 [Moles/Vol] 26 mmol/L Normal 20-32 [facility] Comment on above: Performed By: #### 7 600, [id number], 6399 #### [facility] of [address], [address] [place] [address] Artificial Breast Fabricator: Grady Gamino MD Creatinine [Mass/Vol] 1.08 mg/dL Normal 0.70-1.[address] [facility] Comment on above: Performed By: #### 7 600, 53158, 6399 #### [facility] of [place] [address] Artificial Breast Fabricator: Grady Gamino MD GFR/1.73 sq M.predicted among non-blacks MDRD (S/P/Bld) [Vol rate/Area] 66 mL/min/{1.73_m2} Normal > OR = 60 [facility] Comment on above: Performed By: #### 7 600, 29843, 6399 #### [facility] of [place] [address] Artificial Breast Fabricator: Grady Gamino MD Globulin (S) [Mass/Vol] 2.6 g/dL Normal 1.9-3.7 [facility] Comment on above: Performed By: #### 7 600, 34592, 6399 #### [facility] of [place] [address] Artificial Breast Fabricator: Grady Gamino MD Glucose [Mass/Vol] 87 mg/dL Normal 65-99 [facility] Comment on above: Result Comment: Fasting reference interval Performed By: #### 7 600, 34279, 6399 #### [facility] of [place] [address] Artificial Breast Fabricator: Grady Gamino MD Potassium [Moles/Vol] 4.3 mmol/L Normal 3.5-5.[address] [facility] Comment on above: Performed By: #### 7 600, 70152, 6399 #### [facility] of [place] [address] Artificial Breast Fabricator: Grady Gamino MD Protein [Mass/Vol] 6.5 g/dL Normal 6.1-8.1 [facility] Comment on above: Performed By: #### 7 600, 25604, 6399 #### [facility] [place] [address] Artificial Breast Fabricator: Grady Gamino MD Sodium [Moles/Vol] 142 mmol/L Normal 135-146 [facility] Comment on above: Performed By: #### 7 600, 27508, 6399 #### [facility] [place] [address] Artificial Breast Fabricator: Grady Gamino MD Urea nitrogen [Mass/Vol] 25 mg/dL Normal 7-25 [facility] Comment on above: Performed By: #### 7 600, 34074, 6399 #### [facility] [place] [address] Artificial Breast Fabricator: Grady Gamino MD LIPID PANEL, [facility] 09-06 Cholesterol [Mass/Vol] 230 mg/dL High <200 Qu est Diagnostics Comment on above: Order Comment: FASTI NG:UNKNOWN FASTING: UNKNOWN Performed By: #### 7 600, 11175, 6399 #### [facility] [place] [address] Artificial Breast Fabricator: Grady Gamino MD Cholesterol in HDL [Mass/Vol] 64 mg/dL Normal > OR = 40 [facility] Comment on above: Order Comment: FASTI NG:UNKNOWN FASTING: UNKNOWN Performed By: #### 7 600, 67888, 6399 #### [facility] of [place] [address] Artificial Breast Fabricator: Grady Gamino MD Cholesterol in LDL [Mass/Vol] 147 mg/dL High [facility] Comment on above: Order Comment: FASTI NG:UNKNOWN FASTING: UNKNOWN Result Comment: Refe rence range: <100 Desirable range <100 mg/dL for primary prevention; <70 mg/dL for patients with CHD or diabetic patients with > or = 2 CHD risk factors. LDL-C is now calculated using the Leo-Betancourt calculation, which is a validated novel method providing better accuracy than the Friedewald equation in the estimation of LDL-C. Leo CHAVIS et al. MARYA. 2013;310(19): 3489-5620 (http://education.[employer]/faq/ION535) Performed By: #### 7 600, 47907, 6399 #### [facility] [address], [address] [place] [address] Artificial Breast Fabricator: Grady Gamino MD Cholesterol.total/Chol esterol in HDL [Mass ratio] 3.6 {ratio} Normal <5.0 [facility] Comment on above: Order Comment: FASTI NG:UNKNOWN FASTING: UNKNOWN Performed By: #### 7 600, 43934, 6399 #### [facility] [address], [address] [place] [address] Artificial Breast Fabricator: Grady Gamino MD NON HDL CHOLESTEROL 166 mg/dL (calc) High <130 [facility] Comment on above: Order Comment: FASTI NG:UNKNOWN FASTING: UNKNOWN Result Comment: For patients with diabetes plus 1 major ASCVD risk factor, treating to a non-HDL-C goal of <100 mg/dL (LDL-C of <70 mg/dL) is considered a therapeutic option. Performed By: #### 7 600, 26594, 6399 #### [facility] [address], [address] [place] [address] Artificial Breast Fabricator: Grady Gamino MD Triglyceride [Mass/Vol] 83 mg/dL Normal <150 [facility] Comment on above: Order Comment: FASTI NG:UNKNOWN FASTING: UNKNOWN Performed By: #### 7 600, 31405, 6399 #### [facility] [address], [address] [place] [address] Artificial Breast Fabricator: Grady Gamino MD Office Visit: DOMO fatima 11-10-2016 Documentation of current medications (procedure) Done Invalid Interpretation Code [facility] Work Phone: Fall risk assessment Yes [facility] Work Phone: Protein mass conc Done [facility] Work Phone: Tobacco smoking status NHIS Never [facility] Work Phone: Tobacco smoking status NHIS Former smoker [facility] Work Phone: Tobacco use [facility] Former smoker Invalid Interpretation Code [facility] Work Phone: Vital Signs Date Time Vital Sign Value Performing Clinician Facility 10-23-2024 15:25-0400 Body temperature 97.9 [degF] Dr. Gerardo Duque DO Work Phone: 0(289)[phone] [place] [address] 10-23-2024 15:25-0400 Diastolic blood pressure 84 mm[Hg] Dr. Gerardo Duque DO Work Phone: 6(568)663-714119 [place] [address] 10-23-2024 15:25-0400 Heart rate 80 /min Dr. Gerardo Duque DO Work Phone: 4(536)656-150019 [place] [address] 10-23-2024 15:25-0400 Respiratory rate 18 /min Dr. Gerardo Duque DO Work Phone: 6(245)294-611419 [place] [address] 10-23-2024 15:25-0400 SaO2% (BldA) [Mass fraction] 94 % Dr. Gerardo Duque DO Work Phone: 7(994)687-283819 [place] [address] 10-23-2024 15:25-0400 Systolic blood pressure 110 mm[Hg] Dr. Gerardo Ramirez Work Phone: 7(351)253-840719 [place] [address] 10-23-2024 15:24-0400 Body mass index (BMI) [Ratio] 26.2 kg/m2 Dr. Gerardo Ramirez Work Phone: 3(728)315-510186 [place] [address] 10-23-2024 06:00-0400 Body weight 60.[address] Gerardo Ramirez Work Phone: 6(746)212-461719 [place] [address] 10-23-2024 06:00-0400 Inhaled oxygen flow rate 2 L/min Dr. Gerardo Ramirez Work Phone: 3(343)111-077286 [place] [address] 10-20-2024 22:00-0400 Inhaled oxygen concentration 93 % Dr. Gerardo Duque DO Work Phone: 7(612)731-895419 [place] [address] 10-18-2024 10:27-0400 Body height 151.[address] Gerardo Le DO Work Phone: [facility] 09-27-2024 15:47-0400 Body temperature 97.8 [degF] Dr. Gerardo Ramirez Work Phone: 9(004)685-297886 [place] [address] 09-27-2024 15:47-0400 Diastolic blood pressure 72 mm[Hg] Dr. Gerardo Ramirez Work Phone: 4(050)638-938386 [place] [address] 09-27-2024 15:47-0400 Heart rate 74 /min Dr. Gerardo Duque DO Work Phone: 3(448)191-717086 [place] [address] 09-27-2024 15:47-0400 Respiratory rate 16 /min Dr. Gerardo Ramirez Work Phone: 6(617)300-809786 [place] [address] 09-27-2024 15:47-0400 SaO2% (BldA) [Mass fraction] 92 % Dr. Gerardo Ramirez Work Phone: 4(148)623-689186 [place] [address] 09-27-2024 15:47-0400 Systolic blood pressure 125 mm[Hg] Dr. Gerardo Ramirez Work Phone: 5(050)235-014386 [place] [address] 09-27-2024 13:22-0400 Body mass index (BMI) [Ratio] 27.3 kg/m2 Dr. Gerardo Ramirez Work Phone: 7(223)510-750386 [place] [address] 09-27-2024 03:44-0400 Body weight 63.[address] Gerardo Ramirez Work Phone: 5(629)069-373686 [place] [address] 09-26-2024 09:45-0400 Inhaled oxygen flow rate 2 L/min Dr. Gerardo Ramirez Work Phone: 3(240)050-189786 [place] [address] 09-24-2024 23:31-0400 Body temperature 98.2 [degF] Dr. Gerardo Ramirez Work Phone: 3(909)685-050286 [place] [address] 09-24-2024 23:31-0400 Diastolic blood pressure 60 mm[Hg] Dr. Gerardo Ramirez Work Phone: 8(419)366-778286 [place] [address] 09-24-2024 23:31-0400 Heart rate 108 /min Dr. Gerardo Le DO Work Phone: [facility] 09-24-2024 23:31-0400 Respiratory rate 22 /min Dr. Gerardo Duque DO Work Phone: [facility] 09-24-2024 23:31-0400 SaO2% (BldA) [Mass fraction] 92 % Dr. Gerardo Duque DO Work Phone: [facility] 09-24-2024 23:31-0400 Systolic blood pressure 130 mm[Hg] Dr. Gerardo Duque DO Work Phone: [facility] 09-24-2024 18:40-0400 Body height 165.[address] Gerardo Duque DO Work Phone: [facility] 09-24-2024 18:40-0400 Body mass index (BMI) [Ratio] 23.8 kg/m2 Dr. Gerardo Duque DO Work Phone: [facility] 09-24-2024 18:40-0400 Body weight 64.[address] Gerardo Duque DO Work Phone: [facility] 09-19-2024 09:52-0400 Body mass index (BMI) [Ratio] 23.63 kg/m2 Nimisha Oseguera MD Work Phone: [facility] 09-19-2024 09:52-0400 Body weight 64.41 kg Nimisha Oseguera MD Work Phone: [facility] 09-19-2024 09:52-0400 Diastolic blood pressure 81 mm[Hg] Nimisha Oseguera MD Work Phone: [facility] 09-19-2024 09:52-0400 Heart rate 102 /min Nimisha Oseguera MD Work Phone: [facility] 09-19-2024 09:52-0400 Respiratory rate 16 /min Nimisha Oseguera MD Work Phone: [facility] 09-19-2024 09:52-0400 SaO2% (BldA) [Mass fraction] 96 % Nimisha Oseguera MD Work Phone: [facility] 09-19-2024 09:52-0400 Systolic blood pressure 134 mm[Hg] Nimisha Oseguera MD Work Phone: [facility] 09-02-2024 16:01-0400 Body mass index (BMI) [Ratio] 23.63 kg/m2 Nimisha Oseguera MD Work Phone: [facility] 09-02-2024 16:01-0400 Body temperature 98.71 [degF] Nimisha Oseguera MD Work Phone: [facility] 09-02-2024 16:01-0400 Body weight 64.41 kg Nimisha Oseguera MD Work Phone: [facility] 09-02-2024 16:01-0400 Diastolic blood pressure 84 mm[Hg] Nimisha Oseguera MD Work Phone: [facility] 09-02-2024 16:01-0400 Heart rate 101 /min Nimisha Oseguera MD Work Phone: [facility] 09-02-2024 16:01-0400 Respiratory rate 14 /min Nimisha Oseguera MD Work Phone: [facility] 09-02-2024 16:01-0400 SaO2% (BldA) [Mass fraction] 98 % Nimisha Oseguera MD Work Phone: [facility] 09-02-2024 16:01-0400 Systolic blood pressure 122 mm[Hg] Nimisha Oseguera MD Work Phone: [facility] 03-27-2024 11:11-0500 Body height 165.1 cm Pac 1 Work Phone: [facility] 03-27-2024 11:11-0500 Body mass index (BMI) [Ratio] 23.96 kg/m2 Pacc 1 Work Phone: [facility] 03-27-2024 11:11-0500 Body temperature 97.39 [degF] Pacc 1 Work Phone: [facility] 03-27-2024 11:11-0500 Body weight 65.32 kg Pacc 1 Work Phone: [facility] 03-27-2024 11:11-0500 Diastolic blood pressure 82 mm[Hg] Pacc 1 Work Phone: [facility] 03-27-2024 11:11-0500 Heart rate 84 /min Pacc 1 Work Phone: [facility] 03-27-2024 11:11-0500 Respiratory rate 16 /min Pacc 1 Work Phone: [facility] 03-27-2024 11:11-0500 SaO2% (BldA) [Mass fraction] 96 % Pacc 1 Work Phone: [facility] 03-27-2024 11:11-0500 Systolic blood pressure 150 mm[Hg] Pacc 1 Work Phone: [facility] 01-22-2024 15:15-0400 Body height 165.1 cm Fabricio Hall MD Work Phone: [facility] 01-22-2024 15:15-0400 Body mass index (BMI) [Ratio] 25.29 kg/m2 Fabricio Hall MD Work Phone: [facility] 01-22-2024 15:15-0400 Body temperature 99.1 [degF] Fabricio Hall MD Work Phone: [facility] 01-22-2024 15:15-0400 Body weight 68.95 kg Fabricio Hall MD Work Phone: [facility] 01-22-2024 15:15-0400 Diastolic blood pressure 95 mm[Hg] Fabricio Hall MD Work Phone: [facility] 01-22-2024 15:15-0400 Heart rate 92 /min Fabricio Hall MD Work Phone: [facility] 01-22-2024 15:15-0400 SaO2% (BldA) [Mass fraction] 96 % Fabricio Hall MD Work Phone: [facility] 01-22-2024 15:15-0400 Systolic blood pressure 138 mm[Hg] Fabricio Hall MD Work Phone: [facility] 11-10-2023 08:58-0400 Body mass index (BMI) [Ratio] 25.43 kg/m2 Pacc 1 Work Phone: [facility] 11-10-2023 08:58-0400 Body weight 69.31 kg Pacc 1 Work Phone: [facility] 11-10-2023 08:58-0400 Diastolic blood pressure 76 mm[Hg] Pacc 1 Work Phone: [facility] 11-10-2023 08:58-0400 Heart rate 104 /min Pacc 1 Work Phone: [facility] 11-10-2023 08:58-0400 Respiratory rate 17 /min Pacc 1 Work Phone: [facility] 11-10-2023 08:58-0400 SaO2% (BldA) [Mass fraction] 95 % Pacc 1 Work Phone: [facility] 11-10-2023 08:58-0400 Systolic blood pressure 122 mm[Hg] Pacc 1 Work Phone: [facility] 10-27-2023 14:42-0400 Body height 165.1 cm Jacqueline Espinal MD Work Phone: [facility] 10-27-2023 14:42-0400 Body mass index (BMI) [Ratio] 25.49 kg/m2 Jacqueline Espinal MD Work Phone: [facility] 10-27-2023 14:42-0400 Body temperature 97.7 [degF] Jacqueline Espinal MD Work Phone: [facility] 10-27-2023 14:42-0400 Body weight 69.49 kg Jacqueline Espinal MD Work Phone: [facility] 10-27-2023 14:42-0400 Diastolic blood pressure 80 mm[Hg] Jacqueline Espinal MD Work Phone: [facility] 10-27-2023 14:42-0400 Heart rate 104 /min Jacqueline Espnial MD Work Phone: [facility] 10-27-2023 14:42-0400 SaO2% (BldA) [Mass fraction] 98 % Jacqueline Espinal MD Work Phone: [facility] 10-27-2023 14:42-0400 Systolic blood pressure 138 mm[Hg] Jacqueline Espinal MD Work Phone: [facility] 10-10-2023 14:04-0400 Body mass index (BMI) [Ratio] 24.79 kg/m2 Jacqueline Espinal MD Work Phone: [facility] 10-10-2023 14:04-0400 Body temperature 98.49 [degF] Jacqueline Espinal MD Work Phone: [facility] 10-10-2023 14:04-0400 Body weight 69.67 kg Jacqueline Espinal MD Work Phone: [facility] 10-10-2023 14:04-0400 Diastolic blood pressure 84 mm[Hg] Jacqueline Espinal MD Work Phone: [facility] 10-10-2023 14:04-0400 Heart rate 120 /min Jacqueline Espinal MD Work Phone: [facility] 10-10-2023 14:04-0400 SaO2% (BldA) [Mass fraction] 94 % Jacqueline Espinal MD Work Phone: [facility] 10-10-2023 14:04-0400 Systolic blood pressure 134 mm[Hg] Jacqueline Espinal MD Work Phone: [facility] 11-10-2016 08:190400 BMI (Body Mass Index) 24.85 kg/m2 Chery Whitley LPN [facility] Work Phone: 11-10-2016 08:19-0400 Body Temperature 98.2 [degF] Chery Whitley LPN [facility] Work Phone: 11-10-2016 08:19-0400 BP Diastolic 80 mm[Hg] Chery Whitley LPN [facility] Work Phone: 11-10-2016 08:19-0400 BP Diastolic 78 mm[Hg] Chery Whitley LPN [facility] Work Phone: 11-10-2016 08:19-0400 BP Systolic 146 mm[Hg] Chery Whitley TRESTLEMAN [facility] Work Phone: 11-10-2016 08:19-0400 BP Systolic 142 mm[Hg] [facility] Work Phone: 11-10-2016 08:19-0400 Height 167.64 cm Chery Whitley LPN [facility] Work Phone: 11-10-2016 08:19-0400 Pulse (Heart Rate) 90 /min [facility] Work Phone: 11-10-2016 08:19-0400 Respiratory Rate 16 /min Chery Whitley LPN [facility] Work Phone: 11-10-2016 08:19-0400 Weight 69.85 kg Chery Whitley LPN [facility] Work Phone: Encounters Encounter Date Encounter Type Care Provider Facility Start: 10-22-2024 End: 10-22-2024 [facility]ulatory [facility] Start: 10-22-2024 Non-patient / Non-visit Dr. Osmani Gaxiola DO [facility] Work Phone: Start: 10-21-2024 Non-patient / Non-visit Dr. Osmani Gaxiola [facility] Work Phone: Start: 10-16-2024 Non-patient / Non-visit Dr. Osmani Gaxiola [facility] Work Phone: Start: 10-15-2024 Non-patient / Non-visit Dr. Osmani Gaxiola DO [facility] Work Phone: Start: 10-14-2024 End: 10-14-2024 ambulatory [facility] Start: 10-14-2024 End: 10-14-2024 Non-patient / Non-visit Dr. Juan C Guthrie MD -[facility] Work Phone: Start: 10-14-2024 Non-patient / Non-visit Dr. Osmani Gaxiola [facility] Work Phone: Start: 10-10-2024 Non-patient / Non-visit Dr. Osmani Gaxiola [facility] Work Phone: Start: 10-08-2024 Non-patient / Non-visit Dr. Osamni Gaxiola [facility] Work Phone: Start: 10-07-2024 Non-patient / Non-visit Dr. Osmani Gaxiola [facility] Work Phone: Start: 10-03-2024 Non-patient / Non-visit Dr. Osmani Gaixola [facility] Work Phone: Start: 10-01-2024 End: 10-01-2024 ambulatory [facility] Start: 10-01-2024 End: 10-01-2024 Non-patient / Non-visit Dr. Shay Gaxiola DO [facility] Work Phone: Start: 09-30-2024 Non-patient / Non-visit Dr. Osmani Gaxiola [facility] Work Phone: Start: 09-28-2024 Non-patient / Non-visit Dr. Osmani Gaxiola [facility] Work Phone: Start: 09-27-2024 ambulatory [facility] Start: 09-27-2024 End: 10-23-2024 Evaluation and management of inpatient [facility] Work Phone: Start: 09-27-2024 Non-patient / Non-visit Dr. Juju Vuong DO [facility] Work Phone: Start: 09-26-2024 Non-patient / Non-visit Dr. Juju Vuong DO [facility] Work Phone: Start: 09-26-2024 ambulatory [facility] Start: 09-26-2024 Non-patient / Non-visit Dr. Corie Grant MD -[facility] Start: 09-25-2024 Non-patient / Non-visit Dr. Juju Vuong [facility] Work Phone: Start: 09-24-2024 End: 09-27-2024 [facility] Start: 09-24-2024 End: 09-27-2024 Evaluation and management of inpatient Dr. Gerardo Vizcaino DO -[facility] Work Phone: Start: 09-24-[address] Gerardo Ramirez Work Phone: [facility] Work Phone: Start: 09-19-2024 End: 09-19-2024 [facility] Start: 09-19-2024 End: 09-19-2024 Office outpatient visit 25 minutes Nimisha Oseguera MD Work Phone: [facility] Comment on above: Benign prostatic hyp erplasia with post-void dribbling (Primary Dx); Decreased urine stream; Urinary incontinence, unspecified type; Prostate cancer screening; Urge incontinence; Dribbling; Stress incontinence Start: 09-06-2024 End: 09-07-2024 ambulatory Nimisha Oseguera MD Work Phone: [facility] Comment on above: Medication for Floma x is already at the pharmacy thank you anyway Refill Request Start: 09-02-2024 End: 09-02-2024 ambulatory [facility] Facility:[facility] Start: 09-02-2024 End: 09-02-2024 Office outpatient new 30 minutes Nimisha Oseguera MD Work Phone: [facility] Comment on above: Hallucination (Prima ry Dx); Medicare annual wellness visit, subsequent; RBD (REM behavioral disorder); Screening for depression; Encounter for screening examination for other mental health and behavioral disorders; Bradykinesia; Memory loss Start: 09-02-2024 End: 09-02-2024 Patient encounter procedure Nimisha Oseguera MD Work Phone: [facility] Work Phone: Start: 03-27-2024 End: 03-27-2024 Admission to same day surgery center Jacqueline Espinal MD Work Phone: General Surgery Comment on above: hernia surgery Start: 03-27-2024 End: 03-28-2024 Telephone encounter Nurse Elaine [facility] Work Phone: General Surgery Comment on above: Cancel Procedure Start: 03-27-2024 End: 03-27-2024 [facility] Start: 03-27-2024 End: 03-27-2024 Anesthesia consultation [facility] Work Phone: Pre Anesthesia Comment on above: Acute delirium (Prim milly Dx) Start: 03-27-2024 End: 03-27-2024 ambulatory Jacqueline Espinal MD Work Phone: General Surgery Start: 03-20-2024 End: 03-20-2024 ambulatory Daniel Perez Facility:[facility] Start: 03-18-2024 End: 08-05-2024 Telephone encounter Jacqueline Espinal MD Work Phone: General Surgery Comment on above: cardiology and Neuro logy clearance Start: 03-15-2024 End: 04-29-2024 Telephone encounter Jacqueline Espinal MD Work Phone: General Surgery Comment on above: Appointment Start: 03-05-2024 End: 03-11-2024 Evaluation and management of inpatient Darius Chi Tan Facility:[facility] Start: 02-26-2024 End: 03-05-2024 Evaluation and management of inpatient DANIEL PEREZ Facility:[facility] Start: 02-23-2024 End: 02-28-2024 Telephone encounter Mary Lynn APRN.[employer]AL SYSTEMS SPECIALIST Work Phone: Pre Anesthesia Start: 02-22-2024 End: 02-22-2024 Emergency department patient visit CRSIELDA RM Facility:[facility] Start: 02-22-2024 End: 02-24-2024 ambulatory [facility] Facility:[facility] Start: 02-22-2024 End: 02-22-2024 Patient encounter procedure Rondatimoteo Perera AYLEEN.INSTRUCTIONAL SYSTEMS SPECIALIST Work Phone: [facility] Comment on above: Dizziness (Primary D x); Unsteady gait Start: 01-25-2024 End: 03-12-2024 Telephone encounter Jacqueline Espinal MD Work Phone: General Surgery Start: 01-22-2024 End: 01-22-2024 [facility] Facility:[facility] Start: 01-22-2024 End: 01-22-2024 Patient encounter procedure Fabricio Hall MD Work Phone: Cardiology Comment on above: Primary hypertension (Primary Dx); Nonrheumatic aortic valve stenosis; Preoperative clearance Start: 01-22-2024 End: 01-22-2024 Preoperative state Fabricio Hall MD Work Phone: [facility] Start: 11-10-2023 End: 11-10-2023 Preprocedural examination done Pac [facility] 1 Work Phone: [facility] Work Phone: Start: 11-10-2023 Telephone encounter Mary Lynn APRN.IN[employer]CTIONAL SYSTEMS SPECIALIST Work Phone: Pre Anesthesia Comment on above: Cardiac Clearance Start: 11-10-2023 End: 11-10-2023 [facility] Facility:[facility] Start: 11-10-2023 Encounter for other preprocedural examination NIMISHA OSEGUERA [facility] Start: 11-10-2023 End: 11-10-2023 Admission to establishment [facility] 1 Work Phone: Pre Anesthesia Start: 11-10-2023 End: 11-10-2023 ambulatory DANIEL PEREZ Facility:[facility] Start: 11-10-2023 End: 11-10-2023 Anesthesia consultation [facility] Work Phone: Pre Anesthesia Comment on above: Pre-operative examin ation (Primary Dx); Essential hypertension; VHD (valvular heart disease); Gastroesophageal reflux disease, unspecified whether esophagitis present; Benign prostatic hyperplasia, unspecified whether lower urinary tract symptoms present; Former smoker; Esophageal stricture; Uncomplicated asthma, unspecified asthma severity, unspecified whether persistent Start: 10-27-2023 End: 10-27-2023 ambulatory DANIEL PEREZ Facility:[facility] Start: 10-27-2023 End: 10-27-2023 Patient encounter procedure Jacqueline Espinal MD Work Phone: General Surgery Comment on above: Right inguinal herni a (Primary Dx) Start: 10-19-2023 End: 10-19-2023 ambulatory JACQUELINE ESPINAL Facility:[facility] Start: 10-10-2023 End: 10-10-2023 ambulatory JACQUELINE ESPINAL Facility:[facility] Start: 10-10-2023 End: 10-10-2023 Patient encounter procedure Jacquelien Espinal MD Work Phone: General Surgery Comment on above: Apical systolic murm ur (Primary Dx); Right inguinal hernia Procedures Date Procedure Procedure Detail Performing Clinician Start: 10-16-[address] Gerardo Duque DO Work Phone: Start: 10-15-2024 Urnls dip stick/tabl et reagent auto microscopy Dr. Gerardo Duque DO Work Phone: Start: 10-15-2024 X-ray of chest, PA a nd lateral views Dr. Gerardo Duque DO Work Phone: Start: 10-08-2024 Serum inorganic phos phate measurement Dr. Gerardo Duque DO Work Phone: Start: 10-02-[address] Gerardo pérez DO Work Phone: Start: 09-30-2024 Measurement of occul t blood in stool specimen using immunoassay Dr. Gerardo Ramirez Work Phone: Start: 09-29-2024 Gram stain microscopy Nic Ramirez Work Phone: Start: 09-29-2024 End: 09-29-2024 Microbial culture, routine Dr. Gerardo Heller O Work Phone: Start: 09-28-2024 X-ray of chest, PA a nd lateral views Dr. Gerardo Ramirez Work Phone: Start: 09-26-[address] Gerardo Ramirez Work Phone: Start: 09-26-2024 Serum inorganic phos phate measurement Dr. Gerardo Ramirez Work Phone: Start: 09-25-2024 MRI of brain without contrast Dr. Gerardo Ramirez Work Phone: Start: 09-25-2024 Vitamin D, 25-hydrox y measurement Dr. Gerardo Ramirez Work Phone: Comment on above: Vitamin D StatusDefi ciency: <20 ng/mL (50nmol/L)Insufficiency: 20-30 ng/mL (50-75 nmol/L)Sufficiency: 30-100 ng/mL (75-250 nmol/L)Toxicity: >100 ng/mL (>250 nmol/L) Start: 09-24-2024 CT of pelvis without contrast Dr. Gerardo Ramirez Work Phone: Start: 09-24-2024 Urnls dip stick/tabl et reagent auto microscopy Dr. Gerardo Ramirez Work Phone: Start: 09-24-2024 Plain x-ray of pelvi s and lower extremity Dr. Gerardo Ramirez Work Phone: Start: 09-24-[address] Gerardo Duque DO Work Phone: Start: 09-02-2024 Adult depression scr eening assessment Nimisha Oseguera MD Work Phone: Plan of Treatment Date Care Activity Detail Author Start: 03-05-2027 Diabetes Screening Diabetes Screenin g [facility] Start: 02-27-2027 Diabetes Screening Diabetes Screenin g [facility] Start: 02-21-2027 Diabetes Screening Diabetes Screenin g [facility] Start: 11-09-2026 Diabetes Screening Diabetes Screenin g [facility] Start: 09-02-2025 Anxiety Screening Anxiety Screening [facility] Start: 09-02-2025 Covid-19 Vaccine ( season) Covid-19 Vaccine ( season) [facility] Comment on above: Postponed from 01/06 (Declined at this time) Start: 09-02-2025 Depression Screening Depression Scre ening [facility] Start: 03-07-2025 End: 03-07-2025 Patient encounter procedure 03/07/2025 9:20 AM EDT Office Visit Internal Medicine [facility] [address] [place], [place] [id number] Nimisha Oseguera MD [address] [place], [place] [id number] follow up 6 months [facility] Comment on above: follow up 6 months Start: 01-06-2025 Influenza vaccination Influenz a Vaccine (Season Ended) [facility] Start: 11-04-2024 Influenza vaccination Influenza Vacc ine (#1) [facility] Comment on above: Postponed from 01/06 (Declined at this time) Start: 10-23-2024 Patient discharge [facility] Start: 10-22-2024 End: 10-22-2024 Patient encounter procedure 10/22/2024 11:00 AM EDT Office Visit Urology [address] [place] [address] Shae Tomlinson MD [address] [place] [id number] Benign prostatic hyperplasia with post-void dribbling [N40.1, N39.43] Urology Comment on above: Benign prostatic hyp erplasia with post-void dribbling [N40.1, N39.43] Start: 10-15-2024 [facility] Start: 10-15-2024 Introduction of urin milly catheter [facility] Start: 09-29-2024 [facility] Start: 09-28-2024 Inhalation therapy procedure [facility] Start: 09-27-2024 Recommendation to co zarina with treatment [facility] Start: 09-27-2024 Referral to service [facility] Start: 09-27-2024 Urinary bladder training [facility] Start: 09-27-2024 Admission procedure [facility] Start: 09-27-2024 Measuring intake and output [facility] Start: 09-27-2024 Patient referral to dietitian [facility] Start: 09-27-2024 Referral to occupati onal therapist [facility] Start: 09-27-2024 Vital signs measurements [facility] Start: 09-27-2024 [facility] Start: 09-27-2024 Patient discharge [facility] Start: 09-27-2024 Speech therapy assessment [facility] Start: 09-25-2024 Aspiration precautions [facility] Start: 09-25-2024 Cardiac monitoring [facility] Start: 09-25-2024 Catheterization of vein [facility] Start: 09-25-2024 Consultation [facility] Start: 09-25-2024 Elevation of head of bed [facility] Start: 09-25-2024 Exercises [facility] Start: 09-25-2024 Notification of physician [facility] Start: 09-25-2024 Patient referral to dietitian [facility] Start: 09-25-2024 Referral to service [facility] Start: 09-25-2024 Speech therapy assessment [facility] Start: 09-25-2024 Tobacco use cessatio n education [facility] Start: 09-25-2024 End: 09-25-2024 [facility] Start: 09-25-2024 Vital signs measurements [facility] Start: 09-25-2024 Assessment of risk o f venous thromboembolism [facility] Start: 09-25-2024 Inhalation therapy procedure [facility] Start: 09-25-2024 Insertion of cathete r into peripheral vein [facility] Start: 09-25-2024 Measuring intake and output [facility] Start: 09-25-2024 Oxygen therapy [facility] Start: 09-25-2024 Providing care accor ding to standard [facility] Start: 09-25-2024 Provision of activit y privileges [facility] Start: 09-25-2024 Referral to occupati onal therapist [facility] Start: 09-25-2024 Referral to service [facility] Start: 09-25-2024 [facility] Start: 09-25-2024 Following clinical p athway protocol [facility] Start: 09-25-2024 Consultation [facility] Start: 09-25-2024 Patient referral to dietitian [facility] Start: 09-24-2024 Verification routine [facility] Start: 09-24-2024 Admission procedure [facility] Start: 09-24-2024 Hospital admission, emergency, from emergency room, medical nature [facility] Start: 09-24-2024 CT of pelvis without contrast Pelvis without IV Contrast [facility] Start: 09-24-2024 CT Pelvis WO contrast W [facility] Start: 09-24-2024 [facility] Start: 09-24-2024 Emergency dept visit high severity&threat funcj EMERGENCY DEPT VISIT HI MDM [facility] Start: 09-19-2024 End: 12-19-2024 PSA/PROSTATE SPECIFIC ANTIGEN SCREENING [facility] Work Phone: Comment on above: Expected: 09/19/2024 , Expires: 12/19/2024 Start: 07-22-2024 End: 07-22-2024 Patient encounter procedure 07/22/2024 3:20 PM EDT Office Visit Cardiology [address] [place] [address] Fabricio Hall MD [address] [facility], [address] [place] [address] Follow up after Echo Cardiology Comment on above: Follow up after Echo Start: 07-15-2024 End: 07-15-2024 Patient encounter procedure 07/15/2024 10:30 AM EDT Office Visit Cardiology [address] [place] [address] Primary hypertension [I10]; Nonrheumatic aortic valve stenosis [I35.0]; Aortic valve disorder [I35.9] Cardiology Comment on above: Primary hypertension [I10]; Nonrheumatic aortic valve stenosis [I35.0]; Aortic valve disorder [I35.9] Start: 05-08-2024 Advance Directive Discussion Advance Directive Discussion [facility] Start: 04-09-2024 End: 04-09-2024 Admission to same day surgery center 04/09/2024 10:30 AM EST - 04/09/2024 12:31 PM EST Surgery [facility] [address] [place] [id number] Jacqueline Espinal MD [address] [place] [address] HERNIORRHAPHY INGUINAL ELECTIVE ADULT REDUCIBLE [facility] Comment on above: HERNIORRHAPHY INGUIN AL ELECTIVE ADULT REDUCIBLE Start: 04-09-2024 End: 04-09-2024 Rpr 1st ingun hrna age 6 yrs/> reducible HERNIORRHAPHY INGUINAL ELECTIVE ADULT REDUCIBLE Right inguinal hernia 04/09/2024 10:30 AM EST [facility] Start: 04-09-2024 Subsequent hospital visit by physician 04/09/2024 10:30 AM EST Hospital Encounter [address] [address] Jacqueline Espinal MD [address] [place] [address] Right inguinal hernia [K40.90] [facility] Comment on above: Right inguinal herni a [K40.90] Start: 03-12-2024 End: 03-12-2024 Patient encounter procedure 03/12/2024 11:30 AM EST Office Visit General Surgery [address] [place] [address] Karen Tiwari APRN.INSTRUCTIONAL SYSTEMS SPECIALIST [address] [place] [address] RIH REPAIR post op [facility] 02/26 General Surgery Comment on above: RIH REPAIR post op emilio vasquez rg 02/26 Start: 02-27-2024 End: 02-27-2024 Admission to same day surgery center 02/27/2024 7:30 AM EDT - 02/27/2024 9:16 AM EDT Surgery [facility] [address] [place] [address] Jacqueline Espinal MD [address] [address] HERNIORRHAPHY INGUINAL ELECTIVE ADULT REDUCIBLE [facility] Comment on above: HERNIORRHAPHY INGUIN AL ELECTIVE ADULT REDUCIBLE Start: 02-27-2024 End: 02-27-2024 Rpr 1st ingun hrna age 6 yrs/> reducible HERNIORRHAPHY INGUINAL ELECTIVE ADULT REDUCIBLE Right inguinal hernia 02/27/2024 7:30 AM EDT ME OR Start: 02-27-2024 Subsequent hospital visit by physician 02/27/2024 7:30 AM EDT Hospital Encounter [facility] [address] [place] [address] Jacqueline Espinal MD [address] [address] Right inguinal hernia [K40.90] [facility] Comment on above: Right inguinal herni a [K40.90] Start: 02-23-2024 End: 02-23-2024 Anesthesia consultation 02/23/2024 9:20 AM EDT PAT Pre Anesthesia [address] [place] [address] 1, Pacc [facility] [address] [place] [address] declined VV - HERNIORRHAPHY INGUINAL ELECTIVE ADULT REDUCIBLE [6004] - Groin - Right Pre Anesthesia Comment on above: declined VV - HERNIO RRHAPHY INGUINAL ELECTIVE ADULT REDUCIBLE [6004] - Groin - Right Start: 01-29-2024 End: 01-21-2025 Echocardiography ECHO Cardiology Routine Primary hypertension Nonrheumatic aortic valve stenosis Expected: 01/29/2024, Expires: 01/21/2025 [facility] Work Phone: Comment on above: Expected: 01/29/2024 , Expires: 01/21/2025 Start: 01-07-2024 Covid-19 Vaccine ( season) Covid-19 Vaccine ( season) [facility] Start: 01-07-2024 Covid-19 Vaccine ( season) Covid-19 Vaccine () [facility] Start: 01-07-2024 Influenza vaccination [facility] Start: 12-11-2023 End: 12-11-2023 Patient encounter procedure 12/11/2023 8:20 AM EDT Office Visit Cardiology [address] [place] [id number] Fabricio Hall MD [address] [facility], [address] [place], [place] [id number] CONSULT TO CARDIOLOGY Cardiology Comment on above: CONSULT TO CARDIOLOG Y Start: 11-21-2023 End: 11-21-2023 Patient encounter procedure 11/21/2023 4:00 PM EDT Office Visit General Surgery [address] [place] [address] Jacqueline Espinal MD [address] [id number] post op hernia 7/8 [facility] General Surgery Comment on above: post op hernia 7/8 m [facility] Start: 11-13-2023 Subsequent hospital visit by physician 11/13/2023 Hospital Encounter [facility] [address] [place] [address] Jacqueline Espinal MD [address] [id number] Right inguinal hernia [K40.90] [facility] Comment on above: Right inguinal herni a [K40.90] Start: 11-10-2023 End: 02-09-2024 CBC W Auto Differential panel - Blood [facility] Comment on above: Expected: 11/10/2023 , Expires: 02/09/2024 Start: 11-10-2023 End: 02-09-2024 Comprehensive metabolic 2000 panel - Serum or Plasma [facility] Comment on above: Expected: 11/10/2023 , Expires: 02/09/2024 Start: 10-27-2023 End: 10-27-2023 Patient encounter procedure 10/27/2023 3:00 PM EDT Office Visit General Surgery [address] [place], [place] [id number] Jacqueline Espinal MD [address] [address] Follow up General Surgery Comment on above: Follow up Start: 10-19-2023 End: 10-19-2023 Patient encounter procedure 10/19/2023 1:50 PM EDT Office Visit Cardiology [address] [place], [place] [id number] Apical systolic murmur [R01.1] Cardiology Comment on above: Apical systolic murm ur [R01.1] Start: 05-08-2023 Advance Directive Discussion Advance Directive Discussion [facility] Start: 05-08-2023 Behavioral Health Screening Behavioral Health Screening [facility] Start: 01-06-2023 Covid-19 Vaccine ( season) Covid-19 Vaccine ( season) [facility] Start: 07-24-2020 Diabetes Screening Diabetes Screenin g [facility] Start: 11-10-2016 End: 11-10-2016 Appointment Appointment [facility] Work Phone: Start: 2011 RSV Vaccine (1 - 1-d ose 75+ series) RSV Vaccine (1 - 1-dose 75+ series) [facility] Start: 2001 Pneumococcal Vaccine : 65+ (1 of 1 - PCV) Pneumococcal Vaccine: 65+ (1 of 1 - PCV) [facility] Start: 1996 RSV Vaccine (1 - 1-d ose 60+ series) RSV Vaccine (1 - 1-dose 60+ series) [facility] Start: 1986 Pneumococcal Vaccine : 50+ (1 of 1 - PCV) Pneumococcal Vaccine: 50+ (1 of 1 - PCV) [facility] Start: 1986 Shingrix Vaccine (1 of 2) [place]lin grix Vaccine (1 of 2) [facility] Start: 1955 Urine microalbumin profile DTa P,Tdap,Td Vaccine (1 - Tdap) [facility] Start: 1954 Anxiety Screening Anxiety Screening [facility] Start: 1954 Depression Screening Depression Scre ening [facility] Start: 1954 Spirometry Spirometry [facility] Cardiac event recording [facility] End: 11-09-2024 ECG COMPLETE ECG COMPLETE ECG Routine Pre-operative examination 1 Occurrences starting 11/10/2023 until 11/09/2024 [facility] Work Phone: Comment on above: 1 Occurrences starti ng 11/10/2023 until 11/09/2024 End: 10-09-2024 Echocardiography ECHO Cardiology Routine Apical systolic murmur 1 Occurrences starting 10/10/2023 until 10/09/2024 [facility] Work Phone: Comment on above: 1 Occurrences starti ng 10/10/2023 until 10/09/2024 Patient Education CHRONIC%20HYPERTENSION [facility] Work Phone: Patient referral [facility] Work Phone: Rpr 1st ingun hrna a ge 6 yrs/> reducible HERNIORRHAPHY INGUINAL ELECTIVE ADULT REDUCIBLE Right inguinal hernia ME OR URODYNAMICS URODYNAMICS Proc edures Routine Benign prostatic hyperplasia with post-void dribbling Urge incontinence Dribbling Decreased urine stream Stress incontinence Urinary incontinence, unspecified type Ordered: 09/19/2024 [facility] Comment on above: Ordered: 09/19/2024 Payers Date Payer Category Payer Self-pay 2023 Medicare MMO MEDICARE MMO MEDADVANTAGE O [id number] 2023-Present [phone] [address] [place] [address] [facility] [id number] 2023 Medicare (Managed Care) MMO [employer] DVANTAGE HMO [id number] 2023 Unknown [id number] 2001 Medicare MEDICARE PART A B [id number] Unknown COMMERCIAL OTHER [id number] Unknown [id number] 2.16.840.1.656619.3.579 .2.462 Unknown [id number] 2.16.840.1.181902.3.579 .2.462 Unknown [id number] 2.16.840.1.335197.3.579 .2.462 Unknown [id number] 2.16.840.1.415545.3.579 .2.462 Unknown [id number] 2.16.840.1.239324.3.579 .2.462 Unknown [id number] 2.16.840.1.447958.3.579 .2.462 Unknown [id number] 2.16.840.1.330113.3.579 .2.462 Unknown [id number] 2.16.840.1.402241.3.579 .2.462 Unknown [id number] 2.16.840.1.651280.3.579 .2.462 Unknown [id number] 2.16.840.1.065469.3.579 .2.462 Unknown [id number] 2.16.840.1.038946.3.579 .2.462 Unknown [id number] 2.16.840.1.453243.3.579 .2.462 Unknown [id number] 2.16.840.1.160010.3.579 .2.462 Unknown [id number] 2.16.840.1.065220.3.579 .2.462 Unknown [id number] 2.16.840.1.577100.3.579 .2.462 Unknown [id number] 2.16.840.1.158923.3.579 .2.462 Unknown [id number] 2.16.840.1.114959.3.579 .2.462 Unknown [id number] 2.16.840.1.020808.3.579 .2.462 Unknown [id number] 2.16.840.1.947937.3.579 .2.462 Unknown [id number] 2.16.840.1.550959.3.579 .2.462 Unknown [id number] 2.16.840.1.292143.3.579 .2.462 Unknown [id number] 2.16.840.1.469249.3.579 .2.462 Unknown [id number] 2.16.840.1.806900.3.579 .2.462 Unknown [id number] 2.16840.1.260573.3.579 .2.462 Unknown [id number] 2.16840.1.145231.3.579 .2.462 Social History Date Type Detail Facility Start: 07-24-2017 End: 10-23-2024 Tobacco smoking status NHIS Ex-smoker [facility] Start: [birth year]-02-1952 End: 06-02-1977 History of tobacco use Current smoker [facility] Start: 06-02-1952 End: 06-02-1977 History of tobacco use Cigarette Smoker [facility] Start: 07-24-2017 End: 10-10-2023 Cigarettes smoked current (pack per day) - Reported 1 [facility] Start: 07-24-2017 End: 01-22-2024 Tobacco use and exposure Smokeless tobacco non-user [facility] Start: 10-10-2023 End: 09-19-2024 Alcohol intake Current non-drinker of alcohol (finding) [facility] Start: 10-10-2023 End: 02-27-2024 Tobacco use panel [facility] National Score (1-10 0), lower number is lower risk 64 [facility] Start: 1935 Sex Assigned At Not on file [facility] Has the [employer], [employer], oil, or water [employer] threatened to shut off services in your home in past 12Mo No [facility] (I/We) worried fdeerico lane (my/our) food would run out before (I/we) got money to buy more. Never true [facility] Start: 09-24-2024 Tobacco smoking stat us NHIS Never smoked tobacco (finding) [facility] Start: 07-16-2019 Lives Lives [facility] Start: 1935 Sex Assigned At Male W [facility] Start: 10-23-2024 Tobacco Use Tobacco Use [facility] Medical Equipment Procedure Code Equipment Code Equipment Origin al Text Equipment Identifier Dates Mesh 3dmax Large Polypropylene 6x4in Surgical Nonabsorbable Patch Preform - [id number] Start: 07-25-2017 Goals Date Patient Goal Desired Activity /State Functional Status Date Assessment Result Facility 10-23-2024 Functional status Activity Abili ty With Assist of 1 [facility] Work Phone: 10-21-2024 Functional status Chair [facility] Work Phone: 09-27-2024 Functional status Ambulates;Jigar r;Bathroom Privilege [facility] Work Phone: 03-05-2024 Are you deaf, or do you have serious difficulty hearing No 03/05/2024 5:11 PM Alvarez Crawford, RN No [facility] 03-05-2024 Are you blind, or do you have serious difficulty seeing, even when wearing glasses No 03/05/2024 5:11 PM Alvarez Crawford RN No [facility] 03-05-2024 Do you have serious difficulty walking or climbing stairs Yes 03/05/2024 5:11 PM Alvarez Crawford RN Yes [facility] 03-05-2024 Do you have difficul ty dressing or bathing No 03/05/2024 5:11 PM Alvarez Crawford, MADONNA No [facility] 03-05-2024 Because of a physica l, mental, or emotional condition, do you have difficulty doing errands alone such as visiting a physician's office or shopping No 03/05/2024 5:11 PM Alvarez Crawford RN No [facility] Mental Status Date Assessment Result Facility 10-23-2024 Cognitive function Voice/Name [facility] Work Phone: 09-27-2024 Cognitive function Voice/Name;To [facility] Work Phone: 03-05-2024 Because of a physica l, mental, or emotional condition, do you have serious difficulty concentrating, remembering, or making decisions No 03/05/2024 5:11 PM Alvarez Crawford RN No [facility] Clinical Notes 10-10-2023 to 10-23-2024 Note Date & Type Note Facility 10-23-2024 Discharge summary Note Date/Time October 23, 2024 11:36am [facility] Medical Records Department [address] [place] [address] Discharge Summary 10/22/24 1707 MR#: [id number] Acct: [id number] Name: AYESHA JACOBSEN Rep #:[id number] : 1935 89 From: Shay Gaxiola DO PCP: Dr. Nimisha Oseguera MD Status:ADM I N Location: [place] [address] Providers Date of Admission: 09/27/24 Date of Discharge: 10/23/24 Primary Care Physician: Dr. Nimisha Oseguera MD Reason For Visit: CVA Diagnosis Discharge Diagnosis (1) Debility: Status: Acute Code(s): R53.81 - Other malaise (2) Acute ischemic right MCA stroke: Status: Inactive Code(s): I63.511 - Cerebral infarction due to unspecified occlusion or stenosis of right middle cerebral artery (3) Left leg weakness: Status: Acute Code(s): R29.898 - Other symptoms and signs involving the musculoskeletal system Plan: Improved with therapy and now ambulating with a FWW up to 120' at CGA. He is able to ascend/descend 3 4 steps and 2 6 steps with 2 HR at min-mod assist (4) Facial droop: Status: Acute Code(s): R29.810 - Facial weakness Plan: Improved (5) Cognitive dysfunction: Status: Chronic Code(s): F09 - Unspecified mental disorder due to known physiological condition Plan: chronic cognitive dysfunction due to dementia with acute decline due to CVA. (6) Inferior pubic ramus fracture: Status: Acute Code(s): S32.599A - Other specified fracture of unspecified pubis, initial encounter for closed fracture Qualifiers: Encounter type: initial encounter Fracture type: closed Laterality: left Qualified Code(s): S32.592A - Other specified fracture of left pubis, initial encounter for closed fracture Plan: Secondary to a fall. Still with very poor safety awareness. Requiring bed and chair alarms. Impulsive and gets up from a chair and the bed without calling nursing for assistance. At risk for falls. Pain is adequately controlled with Scheduled tylenol 1 GM Q8H. Was transitioned to PRN Tramadol 25 mg q 6H PRN on 10/21 and has not taken any Tramadol since the 25 mg q 8H was discontinued. (7) Pain aggravated by physical activity: Status: Acute Code(s): R52 - Pain, unspecified Plan: Pain is well controlled at the time of DC from acute rehab. (8) Essential (primary) hypertension: Status: Chronic Code(s): I10 - Essential (primary) hypertension Plan: BP's are well controlled with lisinopril 10 mg daily and metoprolol tartrate 25 mg twice daily. Heart rate is within normal limits. Negative orthostatic vitalsigns on 10/21/2024. Denies lightheadedness. (9) Hypoxemia associated with sleep: Status: Chronic Code(s): G47.36 - 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 classified elsewhere Plan: Will be discharged on 2 L/min nasal O2 while sleeping. He frequently takes the oxygen off at night. (10) Dementia with behavioral disturbance: Status: Chronic Code(s): F03.918 - Unspecified dementia, unspecified severity, with other behavioral disturbance Plan: He sundowns and gets very restless at night. Prior to DC from rehab he is sleeping pretty well on Seroquel 50 mg Q HS. He is not aggressive just confused and restless........mostly at night. We have not needed anything during the day. (11) Oropharyngeal dysphagia: Status: Chronic Code(s): R13.12 - Dysphagia, oropharyngeal phase Plan: Improved with ST. (12) Aspiration into trachea: Status: Chronic Code(s): T17.408A - Unspecified foreign body in trachea causing other injury, initial encounter Plan: Much improved with nectar thick liquids and easy to chew foods. The chronic cough he had at admission to rehab is gone. Lungs have coarse crackles in the left base that are chronic and likely due to scarring. No wheezing. (13) Eosinophilia, unspecified: Status: Chronic Code(s): D72.10 - Eosinophilia, unspecified Qualifiers: Eosinophilia type: unspecified eosinophilia Qualified Code(s): D72.10 -Eosinophilia, unspecified Plan: Absolute eosinophil count is less than 1,500. No indication for any further W/U. No rashes and denies pruritus. (14) Urinary retention: Status: Chronic Code(s): R33.9 - Retention of urine, unspecified Plan: Continue Flomax. He is tilt negative on Flomax. Still retaining urine and the PVR's are in the 200's. We straight cath for residual > 300 but, we have not had to straight cath recently. (15) History of esophageal dilatation: Status: Inactive Code(s): Z98.890 - Other specified postprocedural states Plan: Remote dilation.....by Dr. Abbasi for esophageal stenosis. (16) GERD (gastroesophageal reflux disease): Status: Chronic Code(s): K21.9 - Gastro-esophageal reflux disease without esophagitis Qualifiers: Esophagitis presence: without esophagitis Qualified Code(s): K21.9 - Gastro-esophageal reflux disease without esophagitis Plan: Continue pantoprazole 40 mg daily (17) Mild aortic stenosis: Status: Chronic Code(s): I35.0 - Nonrheumatic aortic (valve) stenosis (18) Heme + stool: Status: Acute Code(s): R19.5 - Other fecal abnormalities Plan: HGB is stable while on rehab. Will continue Protonix. It was + when he was on both Plavix and aspirin. He received 21 days of dual antiplatelet agents but now is only taking aspirin. Hemoglobin is stable at 12.3 on 10/16/2024. Plan 1. DC to [facility] tomorrow. 2. Follow up with Dr. Castro from neurology. Medications at Discharge Home Medications omeprazole 20 mg capsule,delayed release 40 mg PO DAILY GERD 01/02/16 cyanocobalamin (vitamin B-12) 500 mcg tablet (Vitamin B-12) 500 mcg PO DAILY Supplement 03/05/24 tamsulosin 0.4 mg capsule 0.4 mg PO DAILY Bladder 03/05/24 acetaminophen 500 mg tablet 1,000 mg (2 x 500 mg) PO Q8 pain #0 tabs 09/27/24 aspirin 81 mg chewable tablet 81 mg PO DAILY Heart health #0 tabs 09/27/24 atorvastatin 40 mg tablet 40 mg PO QHS cholestrol #0 tabs 09/27/24 ergocalciferol (vitamin D2) 1,250 mcg (50,000 unit) capsule (Vitamin D2) 1,250 mcg PO Q7D@1000 supplement #0 caps 09/27/24 food supplemt, lactose-reduced 0.08 gram-1.5 kcal/mL oral liquid (Ensure Plus High Protein) 120 ml PO 4X/DAY supplement #0 mL 09/27/24 lisinopril 10 mg tablet 10 mg PO DAILY BP #0 tabs 09/27/24 melatonin 3 mg tablet 3 mg PO QHS #1 TAB 10/22/24 menthol 0.44 %-zinc oxide 20.6 % topical ointment (Calmoseptine) 1 applic topical 599,2199 #1 g 10/22/24 metoprolol tartrate 25 mg tablet 25 mg PO BID #1 TAB 10/22/24 nystatin 100,000 unit/gram topical powder 1 applic topical 0600,2199 #1 g 10/22/24 quetiapine 25 mg tablet 50 mg (2 x 25 mg) PO 2100 #1 TAB 10/22/24 sennosides 8.6 mg-docusate sodium 50 mg tablet (Stimulant Laxative Plus) 1 tab PO BID #1 TAB 10/22/24 tramadol 50 mg tablet 25 mg (1/2 x 50 mg) PO Q6H PRN PRN Pain 4-10 1 week #20 tabs 10/22/24 Hospital Course Operations None Procedures Transthoracic echo (The estimated ejection fraction is 55 %. No evidence for diastolic dysfunction. Trivial mitral valve insufficiency. Mild aortic stenosis.) Summary of Care Provided Minutes Spent on Discharge: 45 Hospital Course: AYESHA JACOBSEN, is a 89 YO M with a PMH of hypertension, seizure disorder (? on no medication), vertigo, asthma, BPH with urine retention, history of colectomy, GERD, esophageal stenosis(dilated by Dr. Abbasi in the past), OA and chronic debility who presented to the ED at [facility] on 09/24/24 c/o pain in the Lhip after a fall. He was unable to ambulate. Plain x-ray showed no evidence ofacute fracture of the left hip. CT scan of the pelvis showed an acute nondisplaced fracture of the left inferior pubic ramus and fracture of the anterior inferior left acetabular wall. There was no dislocation. He was admitted to the hospitalist service for pain management and consult with case management for disposition at [place]. PT/OT were consulted. On 09/25/24 he was noted to have focal weakness of the LLE that exceeded what would be expected with pelvic fracture. An MRI of the brain was obtained and showed small acute right scattered MCA infarcts. He was started on dual antiplatelet agents and atorvastatin 40 mg daily. LDL was checked and was 103 and his hemoglobin A1c was 5.4. The HDL was 59. Tele-neurology was consulted and recommended a transthoracic echocardiogram and carotid ultrasound. They also recommended dual antiplatelet agents for 21 days and then DC Plavix but, continue lifelong ASA. An event monitor was recommended at discharge. TTE showed normal left ventricular size with an ejection fraction of 55%. Both atria were of normal size. There was mild aortic stenosis and mild TR and MR. Carotid ultrasound showed less than 50% stenosis and both extracranial internal carotids. He was transferred to the acute inpatient rehab unit at [facility] on 09/27/2024 with a diagnosis of poststroke debility. He will have 3 hours of therapy daily to restore function/independence at or near his level prior to recent events. At presentation to rehab Zane was quite confused, more so in the evening andnight, and was not sleeping at night. He was very restless at night and settingoff the bed alarm trying to get out of bed without assist. His dtr related thatBoarabella had been having memory problems for a few years. He was started on Seroquel at night and the dose was gradually increased to a total of 50 mg Q HS. At the time of DC from rehab he is sleeping well at night. His EKG on 10/22/24 showed anormal QT interval. He is alert during the day and has been cooperative with therapy. He is pleasant and talkative. He is still quite impulsive and has poor safety awareness. He has chair alarms and bed alarms and he often sets offthe alarms trying to get up without assist. He still loses his balance and is not safe to be up ambulating without assist at the time of DC from rehab. His appetite and intake are good. BP is at goal and VS are stable at the time of [facility] rehab. He took ASA + Plavix for a total of 21 days and then Plavix was discontinued. While on dual antiplatelet agents a hemoccult stool was + however, the HGB has been stable and on 10/16/24 it was 12.3. He has not complained of N/V/heartburn or epigastric pain. He chronically takes Protonix for GERD. Creat is stable at 1.05 prior to DC from rehab. He is sometimes incontinent of both urine and stool. The most recent PVR's have ranged from 205to 247. He has not required catheterization for PVR > 300. He is on Flomax for BPH. Blood pressure for 24 hours prior to discharge from rehab has ranged from 106/86 to 158/64 ( this happened only once and all other BP's were within goal of less than 140/80. Orthostatic vital signs on 10/21/2024 were negative for orthostatic hypotension. He denies dizziness. HR is WNL. He is afebrile and maintaining appropriate oxygen saturation on room air while awake. He does desaturate while sleeping and is prescribed 2 L of nasal O2 when he is sleeping but he frequently takes this off. LFT's were checked on 10/10/24 and were all WNL. Will need a Lipid panel, Liver panel and CK in 2-3 weeks after DC from rehab. the eosinophil % has been mildly increased but, the absolute eosinophil count is less than 1,500 and no further W/U is needed. He has no rashes and denies pruritus. Zane was quite painful at arrival to rehab. He was started on scheduled Tylenol 1 GM Q 8H and Tramadol 25 mg q 8H and this was effective in controlling the L hip/leg pain so that he could do therapy. A few days prior to DC to [facility] Tramadol was made PRN and since we did this he has not had to have any Tramadol. Pain is well controlled with just Tylenol. He had no adverse reactions to Tramadol when he was taking it 3 times a day. At the time of DC from rehab Zane he is able to do 7 sit to stands in 30 seconds from a standard height chair using his upper extremities to rise. He isable to complete the TUG test and 31.26 seconds using a front wheel walker at contact-guard assist. This is down from 2 minutes and 12 seconds at admission to rehab. He is able to ascend/descend three 4 inch steps and two 6 inch steps with 2 handrails at min/mod assist. He has ambulated up to 120 feet with a front wheeled walker at contact-guard assist but, with longer distances he is using a WC due to increased pain with prolonged standing. He can ambulate 20' with a FWW at [facility] with no c/o pain. He is very adept at maneuvering the WC. Heis still contact-guard assist to min assist x 1 for all functional transfers using a front wheel walker. He is able to get into bed at min assist for his lower extremities. He is supervision/set up for eating and upper body dressing. He is standby assist for grooming, bathing and lower body dressing. He is contact-guard assist for toilet transfer and tub and shower transfer. He requires moderate assistance with toileting, especially for hygiene. He scored a 23/50 on the BCAT (brief cognitive assessment tool) at admission to rehab. Hehad a orientation LOG done prior to DC and scored 27/30. He also had a COG LOG test and scored 19 out of a possible 30. Zane is still on nectar thick liquids at the time of discharge from rehab and easy to chew foods. We have been using the Harmon water protocol with him. His chronic cough is much improved since the liquids are being thickened. Zane was transferred to [facility] on 10/23/2024 for intermediate care. His was recently in the hospital and is not able to adequately assist Zane at home. He requires 24/7 supervision. Follow up was recommended with Dr. Castro from neurology for treatment for both CVA and for evaluation/tx of dementia. I suspect the behavioral issues will increase when he is transferred to a different facility. He is drowsy on the morning of DC from rehab. IF he were to stay on rehab I would decrease the Seroquel to 37.5 mg but, because I expect the behavioral issues to increase temporarily with transfer to [facility] will keep the dose at 50 mg for now. After he adjusts to his new surroundings would consider decreasing the dose to 37.5 mg. We have been giving the Seroquel at 9 PM to help with sundowning and so he will not be too sleepy in the AM to do therapy. Zane has chronic coarse crackles in the left base. CXR's show increased interstitial markings. BNP is unremarkable. I suspect he may have scarring/fibrosis in the left base. He has not been wheezing and the cough he has had for quite some time is much improved with thickening the liquids. He hasbeen in NSR every time I have examined him on rehab. He has a 30 day event monitor at the time of DC and will need to follow up with cardiology after the monitor is removed and reviewed if there is any arrhythmia. Physical Exam Const Constitutional Narrative: Drowsy but, arouses easily when I call his name. General Appearance: cooperative HEENT head/scalp atraumatic HEENT Narrative: QUECHAN. Has lower denture. MM are dry. No evidence of thrush. Palate elevates symmetrically. Eyes PERRL, EOMs intact bilaterally and no scleral icterus Eyes Narrative: Some DC from the eyes, swelling and redness of the lid margins.......dtr told nursing he has been seen for this and it is chronic related to a skin condition?Needs to use a cream in the mile-orbital area........she can not recall the name. Denies pain. It improved significantly with Gentamicin drops at admission to rehab and the eye culture grew Staph aureus. Neck supple, no JVD, No nodes and no carotid bruits General: trachea midline Chest Chest: symmetrical chest wall rise Resp normal respiratory effort Resp Narrative: Mild true wheeze over the anterior neck. No cough with deep breathing. Not tachypneic. Coarse crackles in the left base only....chronic. Cardio regular rate, regular rhythm, no rub and no gallops Cardio Narrative: No ectopy. 2/6 systolic murmur heard at the lower left sternal border, apex andinto the left axilla. PMI is deviated medial and inferior secondary to verticalheart. GI normal to inspection, nondistended, normoactive bowel sounds, soft to palpation and non-tender GI Narrative: No guarding with palpation no CVA tenderness Narrative: Denies dysuria. Sometimes incontinent of urine. He retains urine but nothing greater than 300 cc so we have not had to straight cath him. Extremity no calf tenderness and no pedal edema Skin Rashes: no rashes Neuro Neuro Narrative: R facial droop has improved since admission to rehab and it is now mild. The palate elevates symmetrically and the tongue protrudes on the midline. No visual field cuts. PERRLA, EOMI. Intact sensation in the face. Equal shouldershrug. He is hard of hearing. Sometimes he does not follow my verbal commands but, he is able to follow visual cues. No drift with either upper extremity. Mild tremors of both hands when he is holding his arm straight out. No ataxia with the upper extremities. Some effort against gravity with the LLE but, fallsalmost immediately to the bed. No drift with the RLE. Good plantar flexion BL. Some mild weakness with dorsiflexion of the left foot. Can not test for ataxiain the LLE due to weakness. Equal sensation in the UE's and the LE's. No visual or tactile extinction. Mild dysarthria.......better than at admission. Psych Psych Narrative: Good appetite. Not anxious but, he is restless, true at night. No crying. No agitation. Always pleasant and cooperative. Good sense of humor. Attitude: calm Weight / BMI Weight Weight: 139 lb 8 oz Body Mass Index (BMI) 27.3 ABG / Lab / Microbiology Data 10/16/24 06:41 10/16/24 06:41 Microbiology: Microbiology 09/29/24 09:12 Exudate Gram Stain - Final 09/29/24 09:12 Exudate Wound Culture - Final Staphylococcus aureus 09/30/24 04:43 Stool Stool Occult Blood (JOVANI) - Final Occult Blood Positive Indicators for Scoring Admitted with or Primary Diagnosis of CVA/Stroke: Yes Hx of CVA/Stroke: Yes Modified Darren Score MRS Score at time of Evaluation: 4-Moderate/severe disability NIHSS NIHSS 1a. Level of Consciousness: 1 - Not alert; Arousable by minor stimuli to obey, answer & respond (drowsy but, I suspect this is due to medication and not to stroke. ) 1b. LOC Questions: 0 - Answers BOTH questions correctly 1c. LOC Commands: 0 - Performs BOTH tasks correctly 2. Best Gaze: 0 - Normal 3. Visual: 0 - No visual loss 4. Facial Palsy: 1 - Minor paralysis (flattened nasolabial fold, asymmetry on smiling) 5a. Left Arm: 0 - No drift; arm holds 90 (or 45) degrees for full 10 seconds 5b. Right Arm: 0 - No drift; arm holds 90 (or 45) degrees for full 10 seconds 6a. Left Le - Some effort against gravity; 6b. Right Le - No drift; leg holds 30-degree position for full 5 seconds 7. Limb Ataxia: 0 - Absent 8. Sensory: 0 - Normal; no sensory loss 9. Best Language: 0 - No aphasia; normal 10. Dysarthria: 1 = Wvkz-go-vjzkezoa dysarthria; 11. Extinction and Inattention: 0 - No abnormality Total: 5 Stroke Questions Stroke Team Activated: No D/C Instructions DC O2, CPAP, BIPAP Needs RN Home O2 qualification: 2 No Data to Display PSN CPAP & BiPAP: BiPAP & CPAP Settings per PSN Fraction of Inspired Oxygen ( 93 10/20/24 22:00 FIO2) Home Oxygen Instructions: Home O2 discharge Instructions Type of respiratory needs? Oxygen 10/22/24 16:49 DC Oxygen Instruction Oxygen frequency With Sleeping 10/22/24 16:49 Oxygen liters per minute when 2 10/22/24 16:49 sleeping Home O2 Discharge instructions: Yes Type of respiratory needs?: Oxygen Oxygen frequency: With Sleeping Oxygen liters per minute when sleepin DC home with Oxygen: No Please Follow Up With: Jamil Castro MD Meaningful Use Info Meaningful Use Meaningful Use Diagnoses (Choose all that apply): Ischemic CVA CVA Therapy Assessed for PT,OT and/or ST?: Yes Ischemic Stroke Antithrombotic order at d/c?: Yes Dx of Atrial fib/flutter?: No Anticoagulant at discharge?: No Reason anticoagulant not ordered: Treatment not Indicated (Has not had any documented AF. 30 day event monitor is in place at the time of transfer to [facility]. ) Statin Dosing Therapy Reference: STATIN DOSE THERAPY REFERENCE: * Patients > 75 years receive moderate or high dose statin therapy. * Patients 75 years or YOUNGER should receive HIGH intensity statin dose unless contraindicated. You will be required to document reason for non-treatment if statin daily dose does not meet guidelines. HIGH DOSE STATIN THERAPY DAILY Atorvastatin > than or = to 40 mg Rosuvastatin > than or = to 20 mg Amlodipine + Atorvastatin > than or = to 2.5/40 mg Ezetimibe + Simvastatin 10/80 mg Simvastatin 80mg Statins at discharge?: Yes Primary Dx Acute Ischemic CVA?: Yes IV thrombolytic ordered during stay?: No Reason IV thrombolytic not ordered: Procedure not Indicated Discharge Plan Admission Admit Date/Time: 09/27/24 17:26 Primary Reason for Your Visit: Debility due to R MCA ischemic CVA/pelvic fx Attending Provider: Shay Gaxiola Primary Care Provider: Nimisha Oseguera Instructions Additional Instructions / Restrictions: 1. He is very impulsive and is always setting off the bed and chair alarms trying to get up by himself. He is a fall risk and not safe to get up by himself. 2. He gets more confused in the evenings and . Very restless and not sleeping well at nights at admission to rehab. sleeping much better on [id number] mg at HS. 3. Cough is much improved with easy to chew foods and nectar thick liquids. Would repeat a MBS prior to trying to advance to thin liquids. 4. Needs to follow up with Dr. Castro for CVA and dementia. 5. He has hearing aids at [facility] that he needs to go leaf size picker.......they need to calibrate the hearing aids so he will need to go to the office and be seen before he can get the hearing aids. 6. Urine retention improved while on rehab but, he still retains. PVR's are in the 200's but, has not required straight cath. Has not had any UTI's while on rehab. 7. He had a heme + stool but, HGB is stable and he denies N/V/epigastric pain and heart burn. HGB was 12.3 on 10/16/24. He was taking dual antiplatelet drugswhen the hemoccult stool was obtained. He completed 21 days of dual antiplatelet agents and is now only on ASA 81 mg daily. 8. Increased mucoid DC from the eyes, R>L, on the day of DC. Grew Staph Aureusat admission to rehab and improved with gentamicin drops. Please send a culturewhen he arrives at [facility]. Discharge Orders/Prescriptions Prescriptions: New quetiapine 25 mg Tablet 50 mg PO 2100 Qty: 1 0RF sennosides-docusate sodium [Stimulant Laxative Plus] 8.6-50 mg Tablet 1 tab PO BID Qty: 1 0RF melatonin 3 mg Tablet 3 mg PO QHS Qty: 1 0RF tramadol 50 mg Tablet 25 mg PO Q6H PRN PRN (Reason: Pain 4-10) 7 Days Qty: 20 0RF nystatin 100,000 unit/gram Powder 1 applic topical 0600,2200 Qty: 1 0RF Protocol: *Topical Application Instructions APPLICATION INSTRUCTIONS: Groin metoprolol tartrate 25 mg Tablet 25 mg PO BID Qty: 1 0RF menthol-zinc oxide [Calmoseptine] 0.44-20.6 % Ointment 1 applic topical 0600,2200 Qty: 1 0RF Protocol: *Topical Application Instructions APPLICATION INSTRUCTIONS: Apply to buttock Continued tamsulosin 0.4 mg capsule 0.4 mg PO DAILY cyanocobalamin (vitamin B-12) [Vitamin B-12] 500 mcg tablet 500 mcg PO DAILY atorvastatin 40 mg Tablet 40 mg PO QHS Qty: 0 0RF acetaminophen 500 mg Tablet 1,000 mg PO Q8 Qty: 0 0RF lisinopril 10 mg Tablet 10 mg PO DAILY Qty: 0 0RF aspirin 81 mg Tablet,Chewable 81 mg PO DAILYCM Qty: 0 0RF ergocalciferol (vitamin D2) [Vitamin D2] 1,250 mcg (50,000 unit) Capsule 1,250 mcg PO Q7D@1000 Qty: 0 0RF Ensure Plus High Protein 0.08 gram-1.5 kcal/mL Liquid 120 ml PO 4X/DAY Qty: 0 0RF Discontinued meclizine 25 mg tablet 25 mg PO TID PRN PRN (Reason: dizziness or vertigo) acetaminophen 500 mg Tablet 1,000 mg PO Q6H PRN PRN (Reason: Pain Score 1-10) Qty: 0 0RF sennosides-docusate sodium [Stimulant Laxative Plus] 8.6-50 mg Tablet 2 tab PO BID Qty: 0 0RF clopidogrel 75 mg Tablet 75 mg PO DAILY Qty: 0 0RF heparin (porcine) 5,000 unit/mL Solution 5,000 unit subcut Q12 Qty: 0 0RF metoprolol tartrate 25 mg Tablet 25 mg PO BID Qty: 0 0RF melatonin 10 mg Tablet, Sublingual 10 mg PO QHS Qty: 0 0RF No Action omeprazole 20 MG capsule 40 mg PO DAILY Patient Comments: acid reflux Referrals / Follow Up: Nimisha Oseguera MD [Primary Care Provider] - Disposition Disposition (needs filled in before D/C Order can be placed): NonSkilled NH/Intermed Care Charges/Coding Visit Charges Inpatient E&M: 64681 Disch Hosp >30min 10/23/24 1136 <Electronically signed by Shay Gaxiola DO> Cosigner Signature (if applicable): CC: Dr. Nimisha Oseguera MD; Dr. Shay Gaxiola DO; Dr. Jamil Castro MD~ Signed [facility] Work Phone: [phone] Discharge summary [facility] Medical Records Department [address] [place] [id number] Discharge Summary 10/22/24 1707 MR#: [id number] Acct: [id number] Name: AYESHA JACOBSEN Rep #:[id number] : [id number] 89 From: Shay Gaxiola DO PCP: Dr. Nimisha Oseguera MD Status:ADM I N Location: [place] [address] Providers Date of Admission: 09/27/24 Date of Discharge: 10/23/24 Primary Care Physician: Dr. Nimisha Oseguera MD Reason For Visit: CVA Diagnosis Discharge Diagnosis (1) Debility: Status: Acute Code(s): R53.81 - Other malaise (2) Acute ischemic right MCA stroke: Status: Inactive Code(s): I63.511 - Cerebral infarction due to unspecified occlusion or stenosis of right middle cerebral artery (3) Left leg weakness: Status: Acute Code(s): R29.898 - Other symptoms and signs involving the musculoskeletal system Plan: Improved with therapy and now ambulating with a FWW up to 120' at CGA. He is able to ascend/descend3 4 steps and 2 6 steps with 2 HR at min-mod assist (4) Facial droop: Status: Acute Code(s): R29.810 - Facial weakness Plan: Improved (5) Cognitive dysfunction: Status: Chronic Code(s): F09 - Unspecified mental disorder due to known physiological condition Plan: chronic cognitive dysfunction due to dementia with acute decline due to CVA. (6) Inferior pubic ramus fracture: Status: Acute Code(s): S32.599A - Other specified fracture of unspecified pubis, initial encounter for closed fracture Qualifiers: Encounter type: initial encounter Fracture type: closed Laterality: left Qualified Code(s): S32.592A - Other specified fracture of left pubis, initial encounter for closed fracture Plan: Secondary to a fall. Still with very poor safety awareness. Requiring bed and chair alarms. Impulsive and gets up from a chair and the bed without calling nursing for assistance. At risk for falls. Pain is adequately controlled with Scheduled tylenol 1 GM Q8H. Was transitioned to PRN Tramadol 25 mgq 6H PRN on 10/21 and has not taken any Tramadol since the 25 mg q 8H was discontinued. (7) Pain aggravated by physical activity: Status: Acute Code(s): R52 - Pain, unspecified Plan: Pain is well controlled at the time of DC from acute rehab. (8) Essential (primary) hypertension: Status: Chronic Code(s): I10 - Essential (primary) hypertension Plan: BP's are well controlled with lisinopril 10 mg daily and metoprolol tartrate 25 mg twice daily. Heart rate is within normal limits. Negative orthostatic vitalsigns on 10/21/2024. Denies lightheadedness. (9) Hypoxemia associated with sleep: Status: Chronic Code(s): G47.36 - 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 classified elsewhere Plan: Will be discharged on 2 L/min nasal O2 while sleeping. He frequently takes the oxygen off at night. (10) Dementia with behavioral disturbance: Status: Chronic Code(s): F03.918 - Unspecified dementia, unspecified severity, with other behavioral disturbance Plan: He sundowns and gets very restless at night. Prior to DC from rehab he is sleeping pretty well on Seroquel 50 mg Q HS. He is not aggressive just confused and restless........mostly at night. We have not needed anything during the day. (11) Oropharyngeal dysphagia: Status: Chronic Code(s): R13.12 - Dysphagia, oropharyngeal phase Plan: Improved with ST. (12) Aspiration into trachea: Status: Chronic Code(s): T17.408A - Unspecified foreign body in trachea causing other injury, initial encounter Plan: Much improved with nectar thick liquids and easy to chew foods. The chronic cough he had at admission to rehab is gone. Lungs have coarse crackles in the left base that are chronic and likely due to scarring. No wheezing. (13) Eosinophilia, unspecified: Status: Chronic Code(s): D72.10 - Eosinophilia, unspecified Qualifiers: Eosinophilia type: unspecified eosinophilia Qualified Code(s): D72.10 - Eosinophilia, unspecified Plan: Absolute eosinophil count is less than 1,500. No indication for any further W/U. No rashes and denies pruritus. (14) Urinary retention: Status: Chronic Code(s): R33.9 - Retention of urine, unspecified Plan: Continue Flomax. He is tilt negative on Flomax. Still retaining urine and the PVR's are in the 200's. We straight cath for residual > 300 but, we have not had to straight cath recently. (15) History of esophageal dilatation: Status: Inactive Code(s): Z98.890 - Other specified postprocedural states Plan: Remote dilation.....by Dr. Abbasi for esophageal stenosis. (16) GERD (gastroesophageal reflux disease): Status: Chronic Code(s): K21.9 - Gastro-esophageal reflux disease without esophagitis Qualifiers: Esophagitis presence: without esophagitis Qualified Code(s): K21.9 - Gastro- esophageal reflux disease without esophagitis Plan: Continue pantoprazole 40 mg daily (17) Mild aortic stenosis: Status: Chronic Code(s): I35.0 - Nonrheumatic aortic (valve) stenosis (18) Heme + stool: Status: Acute Code(s): R19.5 - Other fecal abnormalities Plan: HGB is stable while on rehab. Will continue Protonix. It was + when he was on both Plavix and aspirin. He received 21 days of dual antiplatelet agents but now is only taking aspirin. Hemoglobin is stable at 12.3 on 10/16/2024. Plan 1. DC to [facility] tomorrow. 2. Follow up with Dr. Castro from neurology. Medications at Discharge Home Medications omeprazole 20 mg capsule,delayed release 40 mg PO DAILY GERD 01/02/16 cyanocobalamin (vitamin B-12) 500 mcg tablet (Vitamin B-12) 500 mcg PO DAILY Supplement 03/05/24 tamsulosin 0.4 mg capsule 0.4 mg PO DAILY Bladder 03/05/24 acetaminophen 500 mg tablet 1,000 mg (2 x 500 mg) PO Q8 pain #0 tabs 09/27/24 aspirin 81 mg chewable tablet 81 mg PO DAILYCM Heart health #0 tabs 09/27/24 atorvastatin 40 mg tablet 40 mg PO QHS cholestrol #0 tabs 09/27/24 ergocalciferol (vitamin D2) 1,250 mcg (50,000 unit) capsule (Vitamin D2) 1,250 mcg PO Q7D@1000 supplement #0 caps 09/27/24 food supplemt, lactose-reduced 0.08 gram-1.5 kcal/mL oral liquid (Ensure Plus High Protein) 120 ml PO 4X/DAY supplement #0 mL 09/27/24 lisinopril 10 mg tablet 10 mg PO DAILY BP #0 tabs 09/27/24 melatonin 3 mg tablet 3 mg PO QHS #1 TAB 10/22/24 menthol 0.44 %-zinc oxide 20.6 % topical ointment (Calmoseptine) 1 applic topical 599,2199 #1 g 10/22/24 metoprolol tartrate 25 mg tablet 25 mg PO BID #1 TAB 10/22/24 nystatin 100,000 unit/gram topical powder 1 applic topical 599,2199 #1 g 06/17/25 quetiapine 25 mg tablet 50 mg (2 x 25 mg) PO 2100 #1 TAB 10/22/24 sennosides 8.6 mg-docusate sodium 50 mg tablet (Stimulant Laxative Plus) 1 tab PO BID #1 TAB 10/22/24 tramadol 50 mg tablet 25 mg (1/2 x 50 mg) PO Q6H PRN PRN Pain 4-10 1 week #20 tabs 10/22/24 Hospital Course Operations None Procedures Transthoracic echo (The estimated ejection fraction is 55 %. No evidence for diastolic dysfunction.Trivial mitral valve insufficiency. Mild aortic stenosis.) Summary of Care Provided Minutes Spent on Discharge: 45 Hospital Course: AYESHA JACOBSEN, is a 89 YO M with a PMH of hypertension, seizure disorder (? on no medication), vertigo, asthma, BPH with urine retention, history of colectomy, GERD, esophageal stenosis(dilated by Dr. Abbasi in the past), OA and chronic debility who presented to the ED at [facility] on 09/24/24 c/o pain in the Lhip after a fall. He was unable to ambulate. Plain x-ray showed no evidence ofacute fracture of the left hip. CT scan of the pelvis showed an acute nondisplaced fracture of the left inferior pubic ramus and fracture of the anterior inferior left acetabular wall. There was no dislocation. He was admitted to the hospitalist service for pain management and consult with case management for disposition at [place]. PT/OT were consulted. On 09/25/24 he was noted to have focal weakness of the LLE that exceeded what would be expected with pelvic fracture. An MRI of the brain was obtained and showed small acute right scattered MCA infarcts. He was started on dual antiplatelet agents and atorvastatin 40 mg daily. LDL was checked and was 103 and his hemoglobin A1c was 5.4. The HDL was 59. Tele-neurolo gy was consulted and recommended a transthoracic echocardiogram and carotid ultrasound. They also recommended dual antiplatelet agents for 21 days and then DC Plavix but, continue lifelong ASA. An event monitor was recommended at discharge. TTE showed normal left ventricular size with an ejection fraction of 55%. Both atria were of normal size. There was mild aortic stenosis and mild TR and MR. Carotid ultrasound showed less than 50% stenosis and both extracranial internal carotids. He was transferred to the acute inpatient rehab unit at [facility] on 09/27/2024 with a diagnosis of poststroke debility. He will have 3 hours of therapy daily to restore function/independence at or near his level prior to recent events. At presentation to rehab Zane was quite confused, more so in the evening andnight, and was not sleeping at night. He was very restless at night and settingoff the bed alarm trying to get out of bed without assist. His dtr related thatBob had been having memory problems for a few years. He was started on Seroquel at night and the dose was gradually increased to a total of 50 mg Q HS. At the time ofDC from rehab he is sleeping well at night. His EKG on 10/22/24 showed anormal QT interval. He is alert during the day and has been cooperative with therapy. He is pleasant and talkative. He is still quite impulsive and has poor safety awareness. He has chair alarms and bed alarms and he often sets o ffthe alarms trying to get up without assist. He still loses his balance and is not safe to be up ambulating without assist at the time of DC from rehab. His appetite and intake are good. BP is at goal and VS [facility] He took ASA + Plavix for a total of 21 days and then Plavix was discontinued. While on dual antiplatelet agents a hemoccult stool was + however, the HGB has been stable and on 10/16/24 it was 12.3. He has not complained of N/V/heartburn or epigastric pain. He chronically takes Protonix for GERD. Creat is stable at 1.05 prior to DC from rehab. He is sometimes incontinent of both urine and stool. The most recent PVR's have ranged from 205to 247. He has not required catheterization for PVR > 300. He is on Flomax for BPH. Blood pressure for 24 hours prior to discharge from rehab has ranged from 106/86 to 158/64 ( this happened only once and allother BP's were within goal of less than 140/80. Orthostatic vital signs on 10/21/2024 were negativefor orthostatic hypotension. He denies dizziness. HR is WNL. He is afebrile and maintaining appropriate oxygen saturation on room air while awake. He does desaturate while sleeping and is prescribed 2 L of nasal O2 when he is sleeping but he frequently takes this off. LFT's were checked on 10/10/24 and were all WNL. Will need a Lipid panel, Liver panel and CK in 2-3 weeks after DC from rehab. the eosinophil % has been mildly increased but, the absolute eosinophil count is less than 1,500 and no fu rther W/U is needed. He has no rashes and denies pruritus. Zane was quite painful at arrival to rehab. He was started on scheduled Tylenol 1 GM Q 8H and Tramadol 25 mg q 8H and this was effective in controlling the L hip/leg pain so that he could do therapy. A few days prior to DC to [facility] Tramadol was made PRN and since we did this he has not had to have any Tramadol. Pain is well controlled with just Tylenol. He had no adverse reactions to Tramadol when he was taking it 3 times a day. At the time of DC from rehab Zane he is able to do 7 sit to stands in 30 seconds from a standard height chair using his upper extremities to rise. He isable to complete the TUG test and 31.26 seconds using a front wheel walker at contact- guard assist. This is down from 2 minutes and 12 seconds at admission to rehab. He is able to ascend/descend three 4 inch steps and two 6 inch steps with 2 handrails at min/mod assist. He has ambulated up to 120 feet with a front wheeled walker at contact-guard assist but, with longer distances he is using a WC due to increased pain with prolonged standing. Zeb ambulate 20' with a FWW at [facility] with no c/o pain. He is very adept at maneuvering the WC. Heis still contact-guard assist to min assist x 1 for all functional transfers using a front wheel walker.He is able to get into bed at min assist for his lower extremities. He is supervision/set up for eating and upper body dressing. He is standby assist for grooming, bathing and lower body dressing. Heis contact-guard assist for toilet transfer and tub and shower transfer. He requires moderate assistance with toileting, especially for hygiene. He scored a 23/50 on the BCAT (brief cognitive assessment tool) at admission to rehab. Hehad a orientation LOG done prior to DC and scored 27/30. He also had a COG LOG test and scored 19 out of a possible 30. Zane is still on nectar thick liquids at the time of discharge from rehab and easy to chew foods. We have been using the Harmon water protocol with him. His chronic cough is much improved since the liquids are being thickened. Zane was transferred to [facility] on 10/23/2024 for intermediate care. His was recently in the hospital and is not able to adequately assist Zane at home. He requires 24/7 supervision. Follow up was recommended with Dr. Castro from neurology for treatment for both CVA and for evaluation/tx of dementia. I suspect the behavioral issues will increase when he is transferred toa different facility. He is drowsy on the morning of DC from rehab. IF he were to stay on rehab I would decrease the Seroquel to 37.5 mg but, because I expect the behavioral issues to increase temporarily with transfer to [facility] will keep the dose at 50 mg for now. After he adjusts to his new surround ings would consider decreasing the dose to 37.5 mg. We have been giving the Seroquel at 9 PM to help with sundowning and so he will not be too sleepy in the AM to do therapy. Zane has chronic coarse crackles in the left base. CXR's show increased interstitial markings. BNP is unremarkable. I suspect he may have scarring/fibrosis in the left base. He has not been wheezing and the cough he has had for quite some time is much improved with thickening the liquids. He hasbeenin NSR every time I have examined him on rehab. He has a 30 day event monitor at the time of DC andwill need to follow up with cardiology after the monitor is removed and reviewed if there is any arrhythmia. Physical Exam Const Constitutional Narrative: Drowsy but, arouses easily when I call his name. General Appearance: cooperative HEENT head/scalp atraumatic HEENT Narrative: QUECHAN. Has lower denture. MM are dry. No evidence of thrush. Palate elevates symmetrically. Eyes PERRL, EOMs intact bilaterally and no scleral icterus Eyes Narrative: Some DC from the eyes, swelling and redness of the lid margins.......dtr told nursing he has been seen for this and it is chronic related to a skin condition?Needs to use a cream in the mile-orbital area........she can not recall the name. Denies pain. It improved significantly with Gentamicin drops at admission to rehab and the eye culture grew Staph aureus. Neck supple, no JVD, No nodes and no carotid bruits General: trachea midline Chest Chest: symmetrical chest wall rise Resp normal respiratory effort Resp Narrative: Mild true wheeze over the anterior neck. No cough with deep breathing. Not tachypneic. Coarse crackles in the left base only....chronic. Cardio regular rate, regular rhythm, no rub and no gallops Cardio Narrative: No ectopy. 2/6 systolic murmur heard at the lower left sternal border, apex andinto the left axilla. PMI is deviated medial and inferior secondary to verticalheart. GI normal to inspection, nondistended, normoactive bowel sounds, soft to palpation and non-tender GI Narrative: No guarding with palpation no CVA tenderness Narrative: Denies dysuria. Sometimes incontinent of urine. He retains urine but nothing greater than 300 cc sowe have not had to straight cath him. Extremity no calf tenderness and no pedal edema Skin Rashes: no rashes Neuro Neuro Narrative: R facial droop has improved since admission to rehab and it is now mild. The palate elevates symmetrically and the tongue protrudes on the midline. No visual field cuts. PERRLA, EOMI. Intact sensation in the face. Equal shouldershrug. He is hard of hearing. Sometimes he does not follow my verbal commands but, he is able to follow visual cues. No drift with either upper extremity. Mild tremors of both hands when he is holding his arm straight out. No ataxia with the upper extremities. Some effort against gravity with the LLE but, fallsalmost immediately to the bed. No drift with the RLE. Good plantar flexion BL. Some mild weakness with dorsiflexion of the left foot. Can not test for ataxiainthe LLE due to weakness. Equal sensation in the UE's and the LE's. No visual or tactile extinction.Mild dysarthria.......better than at admission. Psych Psych Narrative: Good appetite. Not anxious but, he is restless, true at night. No crying. No agitation. Always pleasant and cooperative. Good sense of humor. Attitude: calm Weight / BMI Weight Weight: 139 lb 8 oz Body Mass Index (BMI) 27.3 ABG / Lab / Microbiology Data 10/16/24 06:41 10/16/24 06:41 Microbiology: Microbiology 09/29/24 09:12 Exudate Gram Stain - Final 09/29/24 09:12 Exudate Wound Culture - Final Staphylococcus aureus 09/30/24 04:43 Stool Stool Occult Blood (JOVANI) - Final Occult Blood Positive Indicators for Scoring Admitted with or Primary Diagnosis of CVA/Stroke: Yes Hx of CVA/Stroke: Yes Modified [facility] Score MRS Score at time of Evaluation: 4-Moderate/severe disability NIHSS NIHSS 1a. Level of Consciousness: 1 - Not alert; Arousable by minor stimuli to obey, answer & respond(drowsy but, I suspect this is due to medication and not to stroke. ) 1b. LOC Questions: 0 - Answers BOTH questions correctly 1c. LOC Commands: 0 - Performs BOTH tasks correctly 2. Best Gaze: 0 - Normal 3. Visual: 0 - No visual loss 4. Facial Palsy: 1 - Minor paralysis (flattened nasolabial fold, asymmetry on smiling) 5a. Left Arm: 0 - No drift; arm holds 90 (or 45) degrees for full 10 seconds 5b. Right Arm: 0 - No drift; arm holds 90 (or 45) degrees for full 10 seconds 6a. Left Le - Some effort against gravity; 6b. Right Le - No drift; leg holds 30-degree position for full 5 seconds 7. Limb Ataxia: 0 - Absent 8. Sensory: 0 - Normal; no sensory loss 9. Best Language: 0 - No aphasia; normal 10. Dysarthria: 1 = [id number] dysarthria; 11. Extinction and Inattention: 0 - No abnormality Total: 5 Stroke Questions Stroke Team Activated: No D/C Instructions DC O2, CPAP, BIPAP Needs RN Home O2 qualification: 2 No Data to Display PSN CPAP & BiPAP: BiPAP & CPAP Settings per PSN Fraction of Inspired Oxygen ( 93 10/20/24 22:00 FIO2) Home Oxygen Instructions: Home O2 discharge Instructions Type of respiratory needs? Oxygen 10/22/24 16:49 DC Oxygen Instruction Oxygen frequency With Sleeping 10/22/24 16:49 Oxygen liters per minute when 2 10/22/24 16:49 sleeping Home O2 Discharge instructions: Yes Type of respiratory needs?: Oxygen Oxygen frequency: With Sleeping Oxygen liters per minute when sleepin DC home with Oxygen: No Please Follow Up With: Jamil Castro MD Meaningful Use Info Meaningful Use Meaningful Use Diagnoses (Choose all that apply): Ischemic CVA CVA Therapy Assessed for PT,OT and/or ST?: Yes Ischemic Stroke Antithrombotic order at d/c?: Yes Dx of Atrial fib/flutter?: No Anticoagulant at discharge?: No Reason anticoagulant not ordered: Treatment not Indicated (Has not had any documented AF. 30 day event monitor is in place at the time of transfer to [facility]. ) Statin Dosing Therapy Reference: STATIN DOSE THERAPY REFERENCE: * Patients > 75 years receive moderate or high dose statin therapy. * Patients 75 years or YOUNGER should receive HIGH intensity statin dose unless contraindicated. You will be required to document reason for non-treatment if statin daily dose does not meet guidelines. HIGH DOSE STATIN THERAPY DAILY Atorvastatin > than or = to 40 mg Rosuvastatin > than or = to 20 mg Amlodipine + Atorvastatin > than or = to 2.5/40 mg Ezetimibe + Simvastatin 10/80 mg Simvastatin 80mg Statins at discharge?: Yes Primary Dx Acute Ischemic CVA?: Yes IV thrombolytic ordered during stay?: No Reason IV thrombolytic not ordered: Procedure not Indicated Discharge Plan Admission Admit Date/Time: 09/27/24 17:26 Primary Reason for Your Visit: Debility due to R MCA ischemic CVA/pelvic fx Attending Provider: Shay Gaxiola Primary Care Provider: Nimisha Oseguera Instructions Additional Instructions / Restrictions: 1. He is very impulsive and is always setting off the bed and chair alarms trying to get up by himself. He is a fall risk and not safe to get up by himself. 2. He gets more confused in the evenings and . Very restless and not sleeping well at nights at admission to rehab. sleeping much better on [id number] mg at HS. 3. Cough is much improved with easy to chew foods and nectar thick liquids. Would repeat a MBS prior to trying to advance to thin liquids. 4. Needs to follow up with Dr. Castro for CVA and dementia. 5. He has hearing aids at [facility] that he needs to go leaf size picker.......they need to calibrate the hearing aids so he will need to go to the office and be seen before he can get the hearing aids. 6. Urine retention improved while on rehab but, he still retains. PVR's are in the 200's but, has not required straight cath. Has not had any UTI's while on rehab. 7. He had a heme + stool but, HGB is stable and he denies N/V/epigastric pain and heart burn. HGB was 12.3 on 10/16/24. He was taking dual antiplatelet drugswhen the hemoccult stool was obtained. He completed 21 days of dual antiplatelet agents and is now only on ASA 81 mg daily. 8. Increased mucoid DC from the eyes, R>L, on the day of DC. Grew Staph Aureusat admission to rehab and improved with gentamicin drops. Please send a culturewhen he arrives at [facility]. Discharge Orders/Prescriptions Prescriptions: New quetiapine 25 mg Tablet 50 mg PO 2100 Qty: 1 0RF sennosides-docusate sodium [Stimulant Laxative Plus] 8.6-50 mg Tablet 1 tab PO BID Qty: 1 0RF melatonin 3 mg Tablet 3 mg PO QHS Qty: 1 0RF tramadol 50 mg Tablet 25 mg PO Q6H PRN PRN (Reason: Pain 4-10) 7 Days Qty: 20 0RF nystatin 100,000 unit/gram Powder 1 applic topical 599,2199 Qty: 1 0RF Protocol: *Topical Application Instructions APPLICATION INSTRUCTIONS: Groin metoprolol tartrate 25 mg Tablet 25 mg PO BID Qty: 1 0RF menthol-zinc oxide [Calmoseptine] 0.44-20.6 % Ointment 1 applic topical 599,2199 Qty: 1 0RF Protocol: *Topical Application Instructions APPLICATION INSTRUCTIONS: Apply to buttock Continued tamsulosin 0.4 mg capsule 0.4 mg PO DAILY cyanocobalamin (vitamin B-12) [Vitamin B-12] 500 mcg tablet 500 mcg PO DAILY atorvastatin 40 mg Tablet 40 mg PO QHS Qty: 0 0RF acetaminophen 500 mg Tablet 1,000 mg PO Q8 Qty: 0 0RF lisinopril 10 mg Tablet 10 mg PO DAILY Qty: 0 0RF aspirin 81 mg Tablet,Chewable 81 mg PO DAILYCM Qty: 0 0RF ergocalciferol (vitamin D2) [Vitamin D2] 1,250 mcg (50,000 unit) Capsule 1,250 mcg PO Q7D@1000 Qty: 0 0RF Ensure Plus High Protein 0.08 gram-1.5 kcal/mL Liquid 120 ml PO 4X/DAY Qty: 0 0RF Discontinued meclizine 25 mg tablet 25 mg PO TID PRN PRN (Reason: dizziness or vertigo) acetaminophen 500 mg Tablet 1,000 mg PO Q6H PRN PRN (Reason: Pain Score 1-10) Qty: 0 0RF sennosides-docusate sodium [Stimulant Laxative Plus] 8.6-50 mg Tablet 2 tab PO BID Qty: 0 0RF clopidogrel 75 mg Tablet 75 mg PO DAILY Qty: 0 0RF heparin (porcine) 5,000 unit/mL Solution 5,000 unit subcut Q12 Qty: 0 0RF metoprolol tartrate 25 mg Tablet 25 mg PO BID Qty: 0 0RF melatonin 10 mg Tablet, Sublingual 10 mg PO QHS Qty: 0 0RF No Action omeprazole 20 MG capsule 40 mg PO DAILY Patient Comments: acid reflux Referrals / Follow Up: Nimisha Oseguera MD [Primary Care Provider] - Disposition Disposition (needs filled in before D/C Order can be placed): NonSkilled NH/Intermed Care Charges/Coding Visit Charges Inpatient E&M: 25580 Disch Hosp >30min 10/23/24 1136 Cosigner Signature (if applicable): CC: Dr. Nimisha Oseguera MD; Dr. Shay Gaxiola DO; Dr. Jamil Castro MD~ Signed [facility]06-18-2025 Discharge summary Author Shay [facility] Note Date/Time October 23, 2024 8:34 am [facility] Medical Records Department [address] [place] [address] Transfer to [facility] MR#: [id number] Acct: [id number] Name: AYESHA JACOBSEN Rep #:[id number] : [id number] From: Shay Gaxiola DO PCP: Dr. Nimisha Oseguera MD Status:ADM I N Certification of patient admission REQUIRED AT TIME OF ADMISSION. I CERTIFY THAT POST-HOSPITAL ECF SERVICES ARE REQUIRED TO BE GIVEN ON AN IN-PATIENT BASIS BECAUSE OF THE ABOVE NAMED PATIENT'S NEED FOR [facility] CARE ON A CONTINUING BASIS FOR THE CONDITION(S) FOR WHICH HE/SHE WAS RECEIVING IN-PATIENT HOSPITAL SERVICES PRIOR TO HIS/HER TRANSFER TO THE [facility]. 10/23/24 0834<Electronically signed by Shay Gaxiola DO> Diet Diet Order/Speech Therapy: INPATIENT Hospital Diet / Speech Therapy Order(s) 09/27/24 18:37 Diet: Cardiac - Heart Healthy Food consistency:: Easy to Chew Liquid Consistency:: [place]/Mildly Thick Diet Comments: NTL by tsp. only, 1:1 direct supervision, FFWP Routine Orders/Code Status Enema Type: Fleetz Enema Frequency: Daily PRN Suppository Type: Dulcolax 10mg Suppository Frequency: Daily PRN Change Esteves Catheter: N/A Code Status: DNRCC-A (No intubation. ) DC O2, CPAP, BIPAP needs Home O2 Discharge instructions: Yes Type of respiratory needs?: Oxygen Oxygen frequency: With Sleeping Oxygen liters per minute when sleepin Wound(s) Left elbow: Wound Type: Skin Tear POSTERIOR MID THIGH: Wound Type: Abrasion Therapies Weight Bearing: Full weight bearing Physical Therapy: Eval and Treat Occupational Therapy: Eval and Treat Speech Therapy: Eval and Treat Problem/Diagnosis (1) Debility: Status: Acute Code(s): R53.81 - Other malaise (2) Acute ischemic right MCA stroke: Status: Inactive Code(s): I63.511 - Cerebral infarction due to unspecified occlusion or stenosis of right middle cerebral artery (3) Left leg weakness: Status: Acute Code(s): R29.898 - Other symptoms and signs involving the musculoskeletal system Plan: Improved with therapy and now ambulating with a FWW up to 120' at CGA. He is able to ascend/descend 3 4 steps and 2 6 steps with 2 HR at min-mod assist (4) Facial droop: Status: Acute Code(s): R29.810 - Facial weakness Plan: Improved (5) Cognitive dysfunction: Status: Chronic Code(s): F09 - Unspecified mental disorder due to known physiological condition Plan: chronic cognitive dysfunction due to dementia with acute decline due to CVA. (6) Inferior pubic ramus fracture: Status: Acute Code(s): S32.599A - Other specified fracture of unspecified pubis, initial encounter for closed fracture Plan: Secondary to a fall. Still with very poor safety awareness. Requiring bed and chair alarms. Impulsive and gets up from a chair and the bed without calling nursing for assistance. At risk for falls. Pain is adequately controlled with Scheduled tylenol 1 GM Q8H. Was transitioned to PRN Tramadol 25 mg q 6H PRN on 10/21 and has not taken any Tramadol since the 25 mg q 8H was discontinued. (7) Pain aggravated by physical activity: Status: Acute Code(s): R52 - Pain, unspecified Plan: Pain is well controlled at the time of DC from acute rehab. (8) Essential (primary) hypertension: Status: Chronic Code(s): I10 - Essential (primary) hypertension Plan: BP's are well controlled with lisinopril 10 mg daily and metoprolol tartrate 25 mg twice daily. Heart rate is within normal limits. Negative orthostatic vitalsigns on 10/21/2024. Denies lightheadedness. (9) Hypoxemia associated with sleep: Status: Chronic Code(s): G47.36 - 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 classified elsewhere Plan: Will be discharged on 2 L/min nasal O2 while sleeping. He frequently takes the oxygen off at night. (10) Dementia with behavioral disturbance: Status: Chronic Code(s): F03.918 - Unspecified dementia, unspecified severity, with other behavioral disturbance Plan: He sundowns and gets very restless at night. Prior to DC from rehab he is sleeping pretty well on Seroquel 50 mg Q HS. He is not aggressive just confused and restless........mostly at night. We have not needed anything during the day. EKG on Serouel 50 mg shows no QT prolongationj. (11) Oropharyngeal dysphagia: Status: Chronic Code(s): R13.12 - Dysphagia, oropharyngeal phase Plan: Improved with ST. (12) Aspiration into trachea: Status: Chronic Code(s): T17.408A - Unspecified foreign body in trachea causing other injury, initial encounter Plan: Much improved with nectar thick liquids and easy to chew foods. The chronic cough he had at admission to rehab is gone. Lungs have coarse crackles in the left base that are chronic and likely due to scarring. No wheezing. (13) Eosinophilia, unspecified: Status: Chronic Code(s): D72.10 - Eosinophilia, unspecified Plan: Absolute eosinophil count is less than 1,500. No indication for any further W/U. No rashes and denies pruritus. (14) Urinary retention: Status: Chronic Code(s): R33.9 - Retention of urine, unspecified Plan: Continue Flomax. He is tilt negative on Flomax. (15) History of esophageal dilatation: Status: Inactive Code(s): Z98.890 - Other specified postprocedural states Plan: Remote dilation.....by Dr. Abbasi. (16) GERD (gastroesophageal reflux disease): Status: Chronic Code(s): K21.9 - Gastro-esophageal reflux disease without esophagitis Plan: Continue pantoprazole 40 mg daily (17) Mild aortic stenosis: Status: Chronic Code(s): I35.0 - Nonrheumatic aortic (valve) stenosis (18) Heme + stool: Status: Acute Code(s): R19.5 - Other fecal abnormalities Plan: HGB is stable while on rehab. Will continue Protonix. Plan 1. DC to [facility] tomorrow. 2. Follow up with Dr. Castro from neurology. Allergies/Procedures Done in Hospital Allergies egg Allergy (Verified 09/24/24 18:40) Anaphylaxis Procedures: Transthoracic Echo (The estimated ejection fraction is 55 %. No evidence for diastolic dysfunction. Trivial mitral valve insufficiency. Mild aortic stenosis.) Type of Care/Length of Stay Estimated LOS: More Than 30 Days Type of Care Needed: Intermediate Rehab Potential: Fair Prognosis: Fair Additional Orders/Day of Discharge Additional Orders: He is very impulsive and constantly setting off bed and chairalarms trying to get up by himself. Please use alarms. H&P will serve as current which was dated: 09/28/24 Day of Discharge: 10/23/24 Dietary and Speech Recommendations Dietitian Recommendations/Changes: Continue with Cardiac - Heart Healthy diet - consistency per LENS GAUGER. Continue EPHP 120mL 4x per day with medpass. Follow Up Care Please Follow Up With: Jamil Castro MD When: please get him an appt to follow up for CVA and dementia. Discharge Plan Admission Admit Date/Time: 09/27/24 17:26 Primary Reason for Your Visit: Debility due to R MCA ischemic CVA/pelvic fx Attending Provider: Shay Gaxiola Primary Care Provider: Nimisha Oseguera Instructions Additional Instructions / Restrictions: 1. He is very impulsive and is always setting off the bed and chair alarms trying to get up by himself. He is a fall risk and not safe to get up by himself. 2. He gets more confused in the evenings and s. Very restless and not sleeping well at nights at admission to rehab. sleeping much better on [id number] mg at HS. 3. Cough is much improved with easy to chew foods and nectar thick liquids. Would repeat a MBS prior to trying to advance to thin liquids. 4. Needs to follow up with Dr. Castro for CVA and dementia. 5. He has hearing aids at [facility] that he needs to go leaf size picker.......they need to calibrate the hearing aids so he will need to go to the office and be seen before he can get the hearing aids. 6. Urine retention improved while on rehab but, he still retains. PVR's are in the 200's but, has not required straight cath. Has not had any UTI's while on rehab. 7. He had a heme + stool but, HGB is stable and he denies N/V/epigastric pain and heart burn. HGB was 12.3 on 10/16/24. He was taking dual antiplatelet drugswhen the hemoccult stool was obtained. He completed 21 days of dual antiplatelet agents and is now only on ASA 81 mg daily. Discharge Orders/Prescriptions Prescriptions: New quetiapine 25 mg Tablet 50 mg PO 2100 Qty: 1 0RF sennosides-docusate sodium [Stimulant Laxative Plus] 8.6-50 mg Tablet 1 tab PO BID Qty: 1 0RF melatonin 3 mg Tablet 3 mg PO QHS Qty: 1 0RF tramadol 50 mg Tablet 25 mg PO Q6H PRN PRN (Reason: Pain 4-10) 7 Days Qty: 20 0RF nystatin 100,000 unit/gram Powder 1 applic topical 0600,2200 Qty: 1 0RF Protocol: *Topical Application Instructions APPLICATION INSTRUCTIONS: Groin metoprolol tartrate 25 mg Tablet 25 mg PO BID Qty: 1 0RF menthol-zinc oxide [Calmoseptine] 0.44-20.6 % Ointment 1 applic topical 0600,2200 Qty: 1 0RF Protocol: *Topical Application Instructions APPLICATION INSTRUCTIONS: Apply to buttock Continued tamsulosin 0.4 mg capsule 0.4 mg PO DAILY cyanocobalamin (vitamin B-12) [Vitamin B-12] 500 mcg tablet 500 mcg PO DAILY atorvastatin 40 mg Tablet 40 mg PO QHS Qty: 0 0RF acetaminophen 500 mg Tablet 1,000 mg PO Q8 Qty: 0 0RF lisinopril 10 mg Tablet 10 mg PO DAILY Qty: 0 0RF aspirin 81 mg Tablet,Chewable 81 mg PO DAILYCM Qty: 0 0RF ergocalciferol (vitamin D2) [Vitamin D2] 1,250 mcg (50,000 unit) Capsule 1,250 mcg PO Q7D@1000 Qty: 0 0RF Ensure Plus High Protein 0.08 gram-1.5 kcal/mL Liquid 120 ml PO 4X/DAY Qty: 0 0RF Discontinued meclizine 25 mg tablet 25 mg PO TID PRN PRN (Reason: dizziness or vertigo) acetaminophen 500 mg Tablet 1,000 mg PO Q6H PRN PRN (Reason: Pain Score 1-10) Qty: 0 0RF sennosides-docusate sodium [Stimulant Laxative Plus] 8.6-50 mg Tablet 2 tab PO BID Qty: 0 0RF clopidogrel 75 mg Tablet 75 mg PO DAILY Qty: 0 0RF heparin (porcine) 5,000 unit/mL Solution 5,000 unit subcut Q12 Qty: 0 0RF metoprolol tartrate 25 mg Tablet 25 mg PO BID Qty: 0 0RF melatonin 10 mg Tablet, Sublingual 10 mg PO QHS Qty: 0 0RF No Action omeprazole 20 MG capsule 40 mg PO DAILY Patient Comments: acid reflux Referrals / Follow Up: Nimisha Oseguera MD [Primary Care Provider] - Disposition Disposition (needs filled in before D/C Order can be placed): NonSkilled NH/Intermed Care (6) Inferior pubic ramus fracture Qualifiers: Encounter type: initial encounter Fracture type: closed Laterality: left Qualified Code(s): S32.592A - Other specified fracture of left pubis, initial encounter for closed fracture (13) Eosinophilia, unspecified Qualifiers: Eosinophilia type: unspecified eosinophilia Qualified Code(s): D72.10 - Eosinophilia, unspecified (16) GERD (gastroesophageal reflux disease) Qualifiers: Esophagitis presence: without esophagitis Qualified Code(s): K21.9 - Gastro-esophageal reflux disease without esophagitis 10/23/24 0834 <Electronically signed by Shay Gaxiola DO> Cosigner Signature (if applicable): CC: Dr. Nimisha Oseguera MD; Dr. Jamil Castro MD ~ [facility] Work Phone: [phone] Discharge summary [facility] Medical Records Department [address] [place] [address] Transfer to [facility] MR#: [id number] Acct: [id number] Name: AYESHA JACOBSEN Rep #:[id number] : 1935 89 From: Shay Gaxiola DO PCP: Dr. Nimisha Oseguera MD Status:ADM I N Certification of patient admission REQUIRED AT TIME OF ADMISSION. I CERTIFY THAT POST-HOSPITAL ECF SERVICES ARE REQUIRED TO BE GIVEN ON AN IN-PATIENT BASIS BECAUSE OF THE ABOVE NAMED PATIENT'S NEED FOR [facility] CARE ON A CONTINUING BASIS FOR THE CONDITION(S) FOR WHICH HE/SHE WAS RECEIVING IN-PATIENT HOSPITAL SERVICES PRIOR TO HIS/HER TRANSFER TO THE F. 10/23/24 0834 Diet Diet Order/Speech Therapy: INPATIENT Hospital Diet / Speech Therapy Order(s) 09/27/24 18:37 Diet: Cardiac - Heart Healthy Food consistency:: Easy to Chew Liquid Consistency:: [place]/Mildly Thick Diet Comments: NTL by tsp. only, 1:1 direct supervision, FFWP Routine Orders/Code Status Enema Type: Fleetz Enema Frequency: Daily PRN Suppository Type: Dulcolax 10mg Suppository Frequency: Daily PRN Change Esteves Catheter: N/A Code Status: DNRCC-A (No intubation. ) DC O2, CPAP, BIPAP needs Home O2 Discharge instructions: Yes Type of respiratory needs?: Oxygen Oxygen frequency: With Sleeping Oxygen liters per minute when sleepin Wound(s) Left elbow: Wound Type: Skin Tear POSTERIOR MID THIGH: Wound Type: Abrasion Therapies Weight Bearing: Full weight bearing Physical Therapy: Eval and Treat Occupational Therapy: Eval and Treat Speech Therapy: Eval and Treat Problem/Diagnosis (1) Debility: Status: Acute Code(s): R53.81 - Other malaise (2) Acute ischemic right MCA stroke: Status: Inactive Code(s): I63.511 - Cerebral infarction due to unspecified occlusion or stenosis of right middle cerebral artery (3) Left leg weakness: Status: Acute Code(s): R29.898 - Other symptoms and signs involving the musculoskeletal system Plan: Improved with therapy and now ambulating with a FWW up to 120' at CGA. He is able to ascend/descend3 4 steps and 2 6 steps with 2 HR at min-mod assist (4) Facial droop: Status: Acute Code(s): R29.810 - Facial weakness Plan: Improved (5) Cognitive dysfunction: Status: Chronic Code(s): F09 - Unspecified mental disorder due to known physiological condition Plan: chronic cognitive dysfunction due to dementia with acute decline due to CVA. (6) Inferior pubic ramus fracture: Status: Acute Code(s): S32.599A - Other specified fracture of unspecified pubis, initial encounter for closed fracture Plan: Secondary to a fall. Still with very poor safety awareness. Requiring bed and chair alarms. Impulsive and gets up from a chair and the bed without calling nursing for assistance. At risk for falls. Pain is adequately controlled with Scheduled tylenol 1 GM Q8H. Was transitioned to PRN Tramadol 25 mgq 6H PRN on 10/21 and has not taken any Tramadol since the 25 mg q 8H was discontinued. (7) Pain aggravated by physical activity: Status: Acute Code(s): R52 - Pain, unspecified Plan: Pain is well controlled at the time of DC from acute rehab. (8) Essential (primary) hypertension: Status: Chronic Code(s): I10 - Essential (primary) hypertension Plan: BP's are well controlled with lisinopril 10 mg daily and metoprolol tartrate 25 mg twice daily. Heart rate is within normal limits. Negative orthostatic vitalsigns on 10/21/2024. Denies lightheadedness. (9) Hypoxemia associated with sleep: Status: Chronic Code(s): G47.36 - 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 classified elsewhere Plan: Will be discharged on 2 L/min nasal O2 while sleeping. He frequently takes the oxygen off at night. (10) Dementia with behavioral disturbance: Status: Chronic Code(s): F03.918 - Unspecified dementia, unspecified severity, with other behavioral disturbance Plan: He sundowns and gets very restless at night. Prior to DC from rehab he is sleeping pretty well on Seroquel 50 mg Q HS. He is not aggressive just confused and restless........mostly at night. We have not needed anything during the day. EKG on Serouel 50 mg shows no QT prolongationj. (11) Oropharyngeal dysphagia: Status: Chronic Code(s): R13.12 - Dysphagia, oropharyngeal phase Plan: Improved with ST. (12) Aspiration into trachea: Status: Chronic Code(s): T17.408A - Unspecified foreign body in trachea causing other injury, initial encounter Plan: Much improved with nectar thick liquids and easy to chew foods. The chronic cough he had at admission to rehab is gone. Lungs have coarse crackles in the left base that are chronic and likely due to scarring. No wheezing. (13) Eosinophilia, unspecified: Status: Chronic Code(s): D72.10 - Eosinophilia, unspecified Plan: Absolute eosinophil count is less than 1,500. No indication for any further W/U. No rashes and denies pruritus. (14) Urinary retention: Status: Chronic Code(s): R33.9 - Retention of urine, unspecified Plan: Continue Flomax. He is tilt negative on Flomax. (15) History of esophageal dilatation: Status: Inactive Code(s): Z98.890 - Other specified postprocedural states Plan: Remote dilation.....by Dr. Abbasi. (16) GERD (gastroesophageal reflux disease): Status: Chronic Code(s): K21.9 - Gastro-esophageal reflux disease without esophagitis Plan: Continue pantoprazole 40 mg daily (17) Mild aortic stenosis: Status: Chronic Code(s): I35.0 - Nonrheumatic aortic (valve) stenosis (18) Heme + stool: Status: Acute Code(s): R19.5 - Other fecal abnormalities Plan: HGB is stable while on rehab. Will continue Protonix. Plan 1. DC to [facility] tomorrow. 2. Follow up with Dr. Castro from neurology. Allergies/Procedures Done in Hospital Allergies egg Allergy (Verified 09/24/24 18:40) Anaphylaxis Procedures: Transthoracic Echo (The estimated ejection fraction is 55 %. No evidence for diastolic dysfunction. Trivial mitral valve insufficiency. Mild aortic stenosis.) Type of Care/Length of Stay Estimated LOS: More Than 30 Days Type of Care Needed: Intermediate Rehab Potential: Fair Prognosis: Fair Additional Orders/Day of Discharge Additional Orders: He is very impulsive and constantly setting off bed and chairalarms trying to get up by himself. Please use alarms. H&P will serve as current which was dated: 09/28/24 Day of Discharge: 10/23/24 Dietary and Speech Recommendations Dietitian Recommendations/Changes: Continue with Cardiac - Heart Healthy diet - consistency per LENS GAUGER. Continue EPHP 120mL 4x per day with medpass. Follow Up Care Please Follow Up With: Jamil Castro MD When: please get him an appt to follow up for CVA and dementia. Discharge Plan Admission Admit Date/Time: 09/27/24 17:26 Primary Reason for Your Visit: Debility due to R MCA ischemic CVA/pelvic fx Attending Provider: Shay Gaxiola Primary Care Provider: Nimisha Oseguera Instructions Additional Instructions / Restrictions: 1. He is very impulsive and is always setting off the bed and chair alarms trying to get up by himself. He is a fall risk and not safe to get up by himself. 2. He gets more confused in the evenings and s. Very restless and not sleeping well at nights at admission to rehab. sleeping much better on [id number] mg at HS. 3. Cough is much improved with easy to chew foods and nectar thick liquids. Would repeat a MBS prior to trying to advance to thin liquids. 4. Needs to follow up with Dr. Castro for CVA and dementia. 5. He has hearing aids at [facility] that he needs to go leaf size picker.......they need to calibrate the hearing aids so he will need to go to the office and be seen before he can get the hearing aids. 6. Urine retention improved while on rehab but, he still retains. PVR's are in the 200's but, has not required straight cath. Has not had any UTI's while on rehab. 7. He had a heme + stool but, HGB is stable and he denies N/V/epigastric pain and heart burn. HGB was 12.3 on 10/16/24. He was taking dual antiplatelet drugswhen the hemoccult stool was obtained. He completed 21 days of dual antiplatelet agents and is now only on ASA 81 mg daily. Discharge Orders/Prescriptions Prescriptions: New quetiapine 25 mg Tablet 50 mg PO 2100 Qty: 1 0RF sennosides-docusate sodium [Stimulant Laxative Plus] 8.6-50 mg Tablet 1 tab PO BID Qty: 1 0RF melatonin 3 mg Tablet 3 mg PO QHS Qty: 1 0RF tramadol 50 mg Tablet 25 mg PO Q6H PRN PRN (Reason: Pain 4-10) 7 Days Qty: 20 0RF nystatin 100,000 unit/gram Powder 1 applic topical 599,2199 Qty: 1 0RF Protocol: *Topical Application Instructions APPLICATION INSTRUCTIONS: Groin metoprolol tartrate 25 mg Tablet 25 mg PO BID Qty: 1 0RF menthol-zinc oxide [Calmoseptine] 0.44-20.6 % Ointment 1 applic topical 599,2199 Qty: 1 0RF Protocol: *Topical Application Instructions APPLICATION INSTRUCTIONS: Apply to buttock Continued tamsulosin 0.4 mg capsule 0.4 mg PO DAILY cyanocobalamin (vitamin B-12) [Vitamin B-12] 500 mcg tablet 500 mcg PO DAILY atorvastatin 40 mg Tablet 40 mg PO QHS Qty: 0 0RF acetaminophen 500 mg Tablet 1,000 mg PO Q8 Qty: 0 0RF lisinopril 10 mg Tablet 10 mg PO DAILY Qty: 0 0RF aspirin 81 mg Tablet,Chewable 81 mg PO DAILYCM Qty: 0 0RF ergocalciferol (vitamin D2) [Vitamin D2] 1,250 mcg (50,000 unit) Capsule 1,250 mcg PO Q7D@1000 Qty: 0 0RF Ensure Plus High Protein 0.08 gram-1.5 kcal/mL Liquid 120 ml PO 4X/DAY Qty: 0 0RF Discontinued meclizine 25 mg tablet 25 mg PO TID PRN PRN (Reason: dizziness or vertigo) acetaminophen 500 mg Tablet 1,000 mg PO Q6H PRN PRN (Reason: Pain Score 1-10) Qty: 0 0RF sennosides-docusate sodium [Stimulant Laxative Plus] 8.6-50 mg Tablet 2 tab PO BID Qty: 0 0RF clopidogrel 75 mg Tablet 75 mg PO DAILY Qty: 0 0RF heparin (porcine) 5,000 unit/mL Solution 5,000 unit subcut Q12 Qty: 0 0RF metoprolol tartrate 25 mg Tablet 25 mg PO BID Qty: 0 0RF melatonin 10 mg Tablet, Sublingual 10 mg PO QHS Qty: 0 0RF No Action omeprazole 20 MG capsule 40 mg PO DAILY Patient Comments: acid reflux Referrals / Follow Up: Nimisha Oseguera MD [Primary Care Provider] - Disposition Disposition (needs filled in before D/C Order can be placed): NonSkilled NH/Intermed Care (6) Inferior pubic ramus fracture Qualifiers: Encounter type: initial encounter Fracture type: closed Laterality: left Qualified Code(s): S32.592A - Other specified fracture of left pubis, initial encounter for closed fracture (13) Eosinophilia, unspecified Qualifiers: Eosinophilia type: unspecified eosinophilia Qualified Code(s): D72.10 - Eosinophilia, unspecified (16) GERD (gastroesophageal reflux disease) Qualifiers: Esophagitis presence: without esophagitis Qualified Code(s): K21.9 - Gastro- esophageal reflux disease without esophagitis 10/23/24 0834 Cosigner Signature (if applicable): CC: Dr. Nimisha Oseguera MD; Dr. Jamil Castro MD ~ [facility]06-17-2025 [facility]06-16-2025 Progress note Author Shay Umeshvicky [facility] Note Date/Time October 21, 2024 4:26 pm [facility] Medical Records Department [address] [place] [id number] Progress Note 10/21/24 0904 MR#: [id number] Acct: [id number] Name: AYESHA JACOBSEN Rep #:[id number] : 1935 89 From: Shay Gaxiola DO PCP: Dr. Nimisha Oseguera MD Status:ADM I N Location: [place] [address]-1 Subjective Subjective Zane was seen on team rounds today. Dexter and dtr Shay were present in the room. Afebrile VSS - Maintaining appropriate oxygen saturation on RA Oral intake - FOOD good FLUIDS fair Weight is stable. Having regular bowel movements. Discussed with nursing - remains impulsive. Getting up from chair and out of bed setting off alarms. Sleeping well at night with the increase in the Seroquel to 50 mg. Gets up at night to use the rest room. Cooperative with therapy in the day and is pleasant and not agitated. Reviewed the THERAPY notes Medication list reviewed. Zane has no complaints. He does not appear to be in any distress. Does not appear painful when doing therapy. He is progressing with therapy and getting stronger. Not coughing. Not tachypneic. Denies CP. No fevers. Objective Data Objective Data Vital Signs: Vital Signs Temp Pulse Resp BP Pulse Ox O2 Del Method O2 Flow Rate 98.6 F 76 15 118/62 94 Room Air 2 10/21/24 05:48 10/21/24 05:48 10/21/24 05:48 10/21/24 05:48 10/21/24 05:48 10/21/24 08:28 10/21/24 05:48 FiO2 93 10/20/24 22:00 Oxygen Flow Rate (L/min) 2 Oxygen Delivery Method Room Air Weight: 139 lb 8 oz Body Mass Index (BMI) 27.3 Intake & Output: Intake and Output for Last 24 Hours 10/19/24 10/20/24 10/21/24 23:59 23:59 23:59 Intake Total 1100 / 1100 780 / 780 520 / 520 Output Total 450 / 450 500 / 500 300 / 300 Balance 650 / 650 280 / 280 220 / 220 Lab / Micro Data 10/16/24 06:41 10/16/24 06:41 Micro: Microbiology 09/29/24 09:12 Exudate Gram Stain - Final 09/29/24 09:12 Exudate Wound Culture - Final Staphylococcus aureus 09/30/24 04:43 Stool Stool Occult Blood (JOVANI) - Final Occult Blood Positive Physical Exam Const alert and no apparent distress Constitutional Narrative: Impulsive with poor safety awareness. Very pleasant and cooperative. No aggressive behavior. General Appearance: cooperative and well kempt Resp normal respiratory effort Resp Narrative: diminished throughout. Persistent coarse crackles in the L base.....chronic since admission. No wheezing. Not tachypneic. No conversational dyspnea. Effort and Inspection: able to speak in complete sentences; Negative for tachypneic Cardio regular rate, regular rhythm and no gallops Cardio Narrative: No ectopy today. GI normal to inspection, nondistended, normoactive bowel sounds, soft to palpation and non-tender GI Narrative: Bladder feels a little distended. Extremity no calf tenderness General Extremity: Negative for edema Assessment & Plan Assessment/Plan (1) Debility: (2) Acute ischemic right MCA stroke: (3) Left leg weakness: (4) Facial droop: (5) Cognitive dysfunction: (6) Inferior pubic ramus fracture: QUALIFIERS: Encounter type: initial encounter Fracture type: closed Laterality: left Qualified Code(s): S32.592A - Other specified fracture of left pubis, initial encounter for closed fracture PLAN: Secondary to a fall (7) Pain aggravated by physical activity: (8) Essential (primary) hypertension: (9) Hypoxemia associated with sleep: (10) Dementia with behavioral disturbance: (11) Oropharyngeal dysphagia: (12) Aspiration into trachea: (13) Eosinophilia, unspecified: QUALIFIERS: Eosinophilia type: unspecified eosinophilia QualifiedCode(s): D72.10 - Eosinophilia, unspecified PLAN: Plan 1. Continue therapy. 2. Family has chosen [facility]. SW is applying for pre-cert fpr transfer. Heis physically getting stronger but, he is still impulsive and has poor safety awareness. Short term memory is poor. is not able to care for him at home. He would need 24/7 supervision. Family not able to provide this. I discussed with family about dementia farrukhDede Renteria seems to think the memory problems have a lot to do with hearing loss. He has hearing aids that are in the [facility] office but, he has to go pick them up at the facility so they can be calibrated. We do not have a DC date yet but, when we do I can call ENT and try to schedule an APPT for the day of DC so he can stop at ENT prior to going to facility. IF they can not accommodate him then will need to get an appt for him once he is at the SNF or ECF. CVA has likely impaired cognitive process but, after talking with his dtr the problems with memory predated the stroke. 3. Change tramadol to 25 mg p.o. every 6 hours as needed pain 4-10 4. Follow up with neurology as an OP for DX/TX of suspected dementia. Charges/Coding Visit Charges Inpatient E&M: 61919 Subs Hosp L2 10/21/24 1621 <Electronically signed by Shay Gaxiola DO> Shay Gaxiola DO Cosigner Signature (if applicable): CC: ~ Signed ADDENDUM by Dr. Shay Gaxiola DO on 10/21/24 at 1626 Addendum Completed 21 days of dual antiplatelet agents and is now on ASA 81 mg daily and a statin. Will need a 30 day event monitor at [facility] from rehab. BP this AM was a little on the low side at 103 systolic. He is asymptomatic. Will check orhtostatics. If he is orthostatic will decrease the Lisinopril dose. 10/21/24 162 <Electronically signed by Shay perry DO> Date _ Shay Gaxiola DO Cosigner Signature (if applicable): Date cc: ~* Signed [facility] Work Phone: [phone] Progress note [facility] Medical Records Department [address] [place] [address] Progress Note 10/21/24 0904 MR#: [id number] Acct: [id number] Name: AYESHA JACOBSEN Rep #:[id number] : 1935 89 From: Shay Gaxiola DO PCP: Dr. Nimisha Oseguera MD Status:ADM I N Location: [place] [address] Subjective Subjective Zane was seen on team rounds today. Dexter and dtr Shay were present in the room. Afebrile VSS - Maintaining appropriate oxygen saturation on RA Oral intake - FOOD good FLUIDS fair Weight is stable. Having regular bowel movements. Discussed with nursing - remains impulsive. Getting up from chair and out of bed setting off alarms. Sleeping well at night with the increase in the Seroquel to 50 mg. Gets up at night to use the rest room. Cooperative with therapy in the day and is pleasant and not agitated. Reviewed the THERAPY notes Medication list reviewed. Zane has no complaints. He does not appear to be in any distress. Does not appear painful when doingtherapy. He is progressing with therapy and getting stronger. Not coughing. Not tachypneic. Denies CP. No fevers. Objective Data Objective Data Vital Signs: Vital Signs Temp Pulse Resp BP Pulse Ox O2 Del Method O2 Flow Rate 98.6 F 76 15 118/62 94 Room Air 2 10/21/24 05:48 10/21/24 05:48 10/21/24 05:48 10/21/24 05:48 10/21/24 05:48 10/21/24 08:28 10/21/24 05:48 FiO2 93 10/20/24 22:00 Oxygen Flow Rate (L/min) 2 Oxygen Delivery Method Room Air Weight: 139 lb 8 oz Body Mass Index (BMI) 27.3 Intake & Output: Intake and Output for Last 24 Hours 10/19/24 10/20/24 10/21/24 23:59 23:59 23:59 Intake Total 1100 / 1100 780 / 780 520 / 520 Output Total 450 / 450 500 / 500 300 / 300 Balance 650 / 650 280 / 280 220 / 220 Lab / Micro Data 10/16/24 06:41 10/16/24 06:41 Micro: Microbiology 09/29/24 09:12 Exudate Gram Stain - Final 09/29/24 09:12 Exudate Wound Culture - Final Staphylococcus aureus 09/30/24 04:43 Stool Stool Occult Blood (JOVANI) - Final Occult Blood Positive Physical Exam Const alert and no apparent distress Constitutional Narrative: Impulsive with poor safety awareness. Very pleasant and cooperative. No aggressive behavior. General Appearance: cooperative and well kempt Resp normal respiratory effort Resp Narrative: diminished throughout. Persistent coarse crackles in the L base.....chronic since admission. No wheezing. Not tachypneic. No conversational dyspnea. Effort and Inspection: able to speak in complete sentences; Negative for tachypneic Cardio regular rate, regular rhythm and no gallops Cardio Narrative: No ectopy today. GI normal to inspection, nondistended, normoactive bowel sounds, soft to palpation and non-tender GI Narrative: Bladder feels a little distended. Extremity no calf tenderness General Extremity: Negative for edema Assessment & Plan Assessment/Plan (1) Debility: (2) Acute ischemic right MCA stroke: (3) Left leg weakness: (4) Facial droop: (5) Cognitive dysfunction: (6) Inferior pubic ramus fracture: QUALIFIERS: Encounter type: initial encounter Fracture type: closed Laterality: left Qualified Code(s): S32.592A - Other specified fracture of left pubis, initial encounter for closed fracture PLAN: Secondary to a fall (7) Pain aggravated by physical activity: (8) Essential (primary) hypertension: (9) Hypoxemia associated with sleep: (10) Dementia with behavioral disturbance: (11) Oropharyngeal dysphagia: (12) Aspiration into trachea: (13) Eosinophilia, unspecified: QUALIFIERS: Eosinophilia type: unspecified eosinophilia QualifiedCode(s): D72.10 - Eosinophilia, unspecified PLAN: Plan 1. Continue therapy. 2. Family has chosen [facility]. SW is applying for pre-cert fpr transfer. Heis physically getting stronger but, he is still impulsive and has poor safety awareness. Short term memory is poor. is not able to care for him at home. He would need 28/11 supervision. Family not able to provide this.I discussed with family about dementia dxDede Renteria seems to think the memory problems have a lot to dowith hearing loss. He has hearing aids that are in the [facility] office but, he has to go pick them up at the facility so they can be calibrated. We do not have a DC date yet but, when we do I can call ENT and try to schedule an APPT for the day of DC so he can stop at ENT prior to going to facility. IF they can not accommodate him then will need to get an appt for him once he is at the SNF or ECF. CVA has likely impaired cognitive process but, after talking with his dtr the problems with memory predated the stroke. 3. Change tramadol to 25 mg p.o. every 6 hours as needed pain 4-10 4. Follow up with neurology as an OP for DX/TX of suspected dementia. Charges/Coding Visit Charges Inpatient E&M: 35940 Subs Hosp L2 10/21/24 1621 Shay Gaxiola DO Cosigner Signature (if applicable): CC: ~ Signed ADDENDUM by Dr. Shay Gaxiola DO on 10/21/24 at 1626 Addendum Completed 21 days of dual antiplatelet agents and is now on ASA 81 mg daily and a statin. Will needa 30 day event monitor at [facility] from rehab. BP this AM was a little on the low side at 103 systolic. He is asymptomatic. Will check orhtostatics. If he is orthostatic will decrease the Lisinopril dose. 10/21/24 1626 ti DO> Date _ Shay Gaxiola DO Cosigner Signature (if applicable): Date cc: ~* Signed [facility]06-13-2025 Progress note Author Shay Gaxiola [facility] Note Date/Time October 18, 2024 7:07 pm [facility] Medical Records Department [address] [place] [address] Progress Note 10/16/24 1057 MR#: [id number] Acct: [id number] Name: AYESHA JACOBSEN Rep #:[id number] : 1935 89 From: Shay Gaxiola DO PCP: Dr. Nimisha Oseguera MD Status:ADM I N Location: [place] [address] Subjective Subjective Afebrile-acetaminophen was placed on hold yesterday and he has had no fever for 36 hours. He only had a fever x 1 with no recurrence. VSS -blood pressure is within goal and heart rate is within normal limits. Maintaining appropriate oxygen saturation on RA Oral intake - FOOD good FLUIDS he took 2200 cc yesterday...... does better when we are offering him fluids. Urine output is not accurate secondary to incontinence. Discussed with nursing - slept poorly the last couple nights.....the Seroquel dose was decreased when we added the Aricept. Nursing commented that he was edgy and Grumpy last night,,,,,,,this is not like him. he was very pleasant keyonna yesterday. Reviewed the THERAPY notes Medication list reviewed. All lab from this morning was personally reviewed. The white blood cell count is normal at 9.6. Eosinophils are 12%. Neutrophils are normal. No left shift. No rash, no pruritus, no wheezing. The absolute eosinophil count is 1152 which is unremarkable. Repeat UA yesterday showed 0-5 RBCs and 0-5 WBCs with no bacteria. It was nitrite negative.. The BUN is 23 with a creatinine of 1.05 which is within his baseline. BNP is 342 which is not consistent with congestive heart failure. I suspect the increased interstitial markings on the chest x-ray are chronic and possibly secondary to interstitial lung disease. Tells me his pain is well-controlled. Sleeping better at night since the Seroquel was increased to 50 mg. Remains impulsive with poor safety awareness. Gets out of bed and up from the chair without calling for assistance. Objective Data Objective Data Vital Signs: Vital Signs Temp Pulse Resp BP Pulse Ox O2 Del Method O2 Flow Rate 98.3 F 79 16 134/79 H 99 Nasal Cannula 2 10/16/24 06:00 10/16/24 08:07 10/16/24 06:00 10/16/24 06:00 10/16/24 06:00 10/16/24 06:00 10/16/24 06:00 FiO2 21 09/28/24 21:15 Oxygen Flow Rate (L/min) 2 Oxygen Delivery Method Nasal Cannula Weight: 139 lb 8 oz Body Mass Index (BMI) 27.3 Intake & Output: Intake and Output for Last 24 Hours 10/14/24 10/15/24 10/16/24 23:59 23:59 23:59 Intake Total 1260 / 1260 2200 / 2200 120 / 120 Output Total 600 / 600 450 / 525 400 / 400 Balance 660 / 660 1750 / 1675 -280 / -280 Lab / Micro Data 10/16/24 06:41 10/16/24 06:41 Labs: Laboratory Results - last 24 hr 10/15/24 15:50: Urine Color Yellow, Urine Clarity Clear, Urine pH 6.5, Ur Specific Oaks 1.010, Urine Protein 15 H, Urine Glucose (UA) Normal, Urine Ketones Negative, Urine Occult Blood Negative, Urine Nitrite Negative, Urine Bilirubin Negative, Urine Urobilinogen Normal, Ur Leukocyte Esterase 25 H, UrineRBC 0-5 SEEN, Urine WBC 0- 5 SEEN, Ur Squamous Epith Cells 0 SEEN, Urine Bacteria0 SEEN, Urine Mucus 0 SEEN 10/16/24 06:41: WBC 9.6, RBC 4.09 L, Hgb 12.3 L, Hct 37.5 L, MCV 91.7, MCH 30.1,MCHC 32.8, RDW Std Deviation 49.9 H, RDW Coeff of Brook 14.8 H, Plt Count 319, MPV10.0, Immature Gran % (Auto) 0.400, Neut % (Auto) 55.3, Lymph % (Auto) 20.0, Hancock % (Auto) 11.6 H, Eos % (Auto) 12.0 H, Baso % (Auto) 0.7, Absolute Neuts (auto) 5.3, Absolute Lymphs (auto) 1.91, Nucleated RBC % 0, Sodium 140, Potassium 4.0, Chloride 104, Carbon Dioxide 26.8, Anion Gap 9, BUN 23 H, Creatinine 1.05, Estim Creat Clear Calc 38.24 L, Est GFR (MDRD) Non-Af 68, BUN/Creatinine Ratio 21.9 H, Glucose 93, Calcium 9.2, NT pro BNP II 342 Micro: Microbiology 09/29/24 09:12 Exudate Gram Stain - Final 09/29/24 09:12 Exudate Wound Culture - Final Staphylococcus aureus 09/30/24 04:43 Stool Stool Occult Blood (JOVANI) - Final Occult Blood Positive Radiography Diagnostic Testing: Radiology Impression Chest X-Ray 10/15/24 15:30 IMPRESSION: Mild pulmonary vascular congestion. No focal consolidations. Trace left base effusion. Reading Location: [facility] Physical Exam Const alert and no apparent distress Constitutional Narrative: Impulsive with poor safety awareness General Appearance: cooperative and well kempt Resp normal respiratory effort Resp Narrative: diminished throughout. Persistent coarse crackles in the L base.....chronic since admission. No wheezing. Not tachypneic. No conversational dyspnea. Effort and Inspection: able to speak in complete sentences; Negative for tachypneic Cardio regular rate, regular rhythm and no gallops Cardio Narrative: No ectopy today. GI normal to inspection, nondistended, normoactive bowel sounds, soft to palpation and non-tender GI Narrative: Bladder feels a little distended. Extremity no calf tenderness General Extremity: Negative for edema Assessment & Plan Assessment/Plan (1) Debility: (2) Acute ischemic right MCA stroke: (3) Left leg weakness: (4) Facial droop: (5) Cognitive dysfunction: (6) Inferior pubic ramus fracture: QUALIFIERS: Encounter type: initial encounter Fracture type: closed Laterality: left Qualified Code(s): S32.592A - Other specified fracture of left pubis, initial encounter for closed fracture (7) Pain aggravated by physical activity: (8) Essential (primary) hypertension: (9) Hypoxemia associated with sleep: (10) Dementia with behavioral disturbance: (11) Oropharyngeal dysphagia: (12) Aspiration into trachea: (13) Eosinophilia, unspecified: QUALIFIERS: Eosinophilia type: unspecified eosinophilia QualifiedCode(s): D72.10 - Eosinophilia, unspecified PLAN: Plan 1. Continue therapy 2. DC Aricept and increase the Seroquel to 50 mg Q HS. 3. Recheck a EKG in a few days. 4. Continue DC planning. Home vs a facility. If home will need 24/7 supervision. Dtr is POA and she is not in town. she is on vacation and will return on Monday. Need a decision on destination at DC. 5. 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 Charges/Coding Visit Charges Inpatient E&M: 88616 Subs Hosp L1 10/18/241906 <Electronically signed by Shay Gaxiola DO> Shay Gaxiola DO Cosigner Signature (if applicable): CC: ~ Signed [facility] Work Phone: [phone] Progress note [facility] Medical Records Department [address] [place] [address] Progress Note 10/16/24 1057 MR#: [id number] Acct: [id number] Name: AYESHA JACOBSEN Desiree Rep #:[id number] : 1935 89 From: Shay Gaxiola DO PCP: Dr. Nimisha Oseguera MD Status:ADM I N Location: [place] [address]1 Subjective Subjective Afebrile-acetaminophen was placed on hold yesterday and he has had no fever for 36 hours. He only had a fever x 1 with no recurrence. VSS -blood pressure is within goal and heart rate is within normal limits. Maintaining appropriate oxygen saturation on RA Oral intake - FOOD good FLUIDS he took 2200 cc yesterday...... does better when we are offering himfluids. Urine output is not accurate secondary to incontinence. Discussed with nursing - slept poorly the last couple nights.....the Seroquel dose was decreased when we added the Aricept. Nursing commented that he was edgy and Grumpy last night,,,,,,,this is not like him. he was very pleasant keyonna yesterday. Reviewed the THERAPY notes Medication list reviewed. All lab from this morning was personally reviewed. The white blood cell count is normal at 9.6. Eosinophils are 12%. Neutrophils are normal. No left shift. No rash, no pruritus, no wheezing. The absolute eosinophil count is 1152 which is unremarkable. Repeat UA yesterday showed 0-5 RBCs and 0-5 WBCs with no bacteria. It was nitrite negative.. The BUN is 23 with a creatinine of 1.05 which is within his baseline. BNP is 342 which is not consistent with congestive heart failure. I suspect the increased interstitial markings on the chest x-ray are chronic and possibly secondary to interstitial lung disease. Tells me his pain is well-controlled. Sleeping better at night since the Seroquel was increased to 50 mg. Remains impulsive with poor safety awareness. Gets out of bed and up from the chair without calling for assistance. Objective Data Objective Data Vital Signs: Vital Signs Temp Pulse Resp BP Pulse Ox O2 Del Method O2 Flow Rate 98.3 F 79 16 134/79 H 99 Nasal Cannula 2 10/16/24 06:00 10/16/24 08:07 10/16/24 06:00 10/16/24 06:00 10/16/24 06:00 10/16/24 06:00 10/16/24 06:00 FiO2 21 09/28/24 21:15 Oxygen Flow Rate (L/min) 2 Oxygen Delivery Method Nasal Cannula Weight: 139 lb 8 oz Body Mass Index (BMI) 27.3 Intake & Output: Intake and Output for Last 24 Hours 10/14/24 10/15/24 10/16/24 23:59 23:59 23:59 Intake Total 1260 / 1260 2200 / 2200 120 / 120 Output Total 600 / 600 450 / 525 400 / 400 Balance 660 / 660 1750 / 1675 -280 / -280 Lab / Micro Data 10/16/24 06:41 10/16/24 06:41 Labs: Laboratory Results - last 24 hr 10/15/24 15:50: Urine Color Yellow, Urine Clarity Clear, Urine pH 6.5, Ur Specific Oaks 1.010, Urine Protein 15 H, Urine Glucose (UA) Normal, Urine Ketones Negative, Urine Occult Blood Negative, Urine Nitrite Negative, Urine Bilirubin Negative, Urine Urobilinogen Normal, Ur Leukocyte Esterase 25H, UrineRBC 0-5 SEEN, Urine WBC 0-5 SEEN, Ur Squamous Epith Cells 0 SEEN, Urine Bacteria0 SEEN, Urine Mucus 0 SEEN 10/16/24 06:41: WBC 9.6, RBC 4.09 L, Hgb 12.3 L, Hct 37.5 L, MCV 91.7, MCH 30.1,MCHC 32.8, RDW Std Deviation 49.9 H, RDW Coeff of Brook 14.8 H, Plt Count 319, MPV10.0, Immature Gran % (Auto) 0.400, Neut % (Auto) 55.3, Lymph % (Auto) 20.0, Hancock % (Auto) 11.6 H, Eos % (Auto) 12.0 H, Baso % (Auto) 0.7, Absolute Neuts (auto) 5.3, Absolute Lymphs (auto) 1.91, Nucleated RBC % 0, Sodium 140, Potassium 4.0, Chloride 104, Carbon Dioxide 26.8, Anion Gap 9, BUN 23 H, Creatinine 1.05, Estim Creat Clear Calc 38.24 L, Est GFR (MDRD) Non-Af 68, BUN/Creatinine Ratio 21.9 H, Glucose 93, Calcium 9.2, NT pro BNP II 342 Micro: Microbiology 09/29/24 09:12 Exudate Gram Stain - Final 09/29/24 09:12 Exudate Wound Culture - Final Staphylococcus aureus 09/30/24 04:43 Stool Stool Occult Blood (JOVANI) - Final Occult Blood Positive Radiography Diagnostic Testing: Radiology Impression Chest X-Ray 10/15/24 15:30 IMPRESSION: Mild pulmonary vascular congestion. No focal consolidations. Trace left base effusion. Reading Location: [facility] Physical Exam Const alert and no apparent distress Constitutional Narrative: Impulsive with poor safety awareness General Appearance: cooperative and well kempt Resp normal respiratory effort Resp Narrative: diminished throughout. Persistent coarse crackles in the L base.....chronic since admission. No wheezing. Not tachypneic. No conversational dyspnea. Effort and Inspection: able to speak in complete sentences; Negative for tachypneic Cardio regular rate, regular rhythm and no gallops Cardio Narrative: No ectopy today. GI normal to inspection, nondistended, normoactive bowel sounds, soft to palpation and non-tender GI Narrative: Bladder feels a little distended. Extremity no calf tenderness General Extremity: Negative for edema Assessment & Plan Assessment/Plan (1) Debility: (2) Acute ischemic right MCA stroke: (3) Left leg weakness: (4) Facial droop: (5) Cognitive dysfunction: (6) Inferior pubic ramus fracture: QUALIFIERS: Encounter type: initial encounter Fracture type: closed Laterality: left Qualified Code(s): S32.592A - Other specified fracture of left pubis, initial encounter for closed fracture (7) Pain aggravated by physical activity: (8) Essential (primary) hypertension: (9) Hypoxemia associated with sleep: (10) Dementia with behavioral disturbance: (11) Oropharyngeal dysphagia: (12) Aspiration into trachea: (13) Eosinophilia, unspecified: QUALIFIERS: Eosinophilia type: unspecified eosinophilia QualifiedCode(s): D72.10 - Eosinophilia, unspecified PLAN: Plan 1. Continue therapy 2. DC Aricept and increase the Seroquel to 50 mg Q HS. 3. Recheck a EKG in a few days. 4. Continue DC planning. Home vs a facility. If home will need 24/7 supervision. Dtr is MAHENDRA and sheis not in town. she is on vacation and will return on Monday. Need a decision on destination at DC. 5. 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 Charges/Coding Visit Charges Inpatient E&M: 93488 Subs Hosp L1 10/18/24 190 Shay Gaxiola Cosigner Signature (if applicable): CC: ~ Signed [facility]06-10-2025 Progress note Author Shay Gaxiola [facility] Note Date/Time October 15, 2024 3:50 pm [facility] Medical Records Department [address] [place] [address] Progress Note 10/15/24 1513 MR#: [id number] Acct: [id number] Name: AYESHA JACOBSEN Rep #:[id number] : 1935 89 From: Shay Gaxiola DO PCP: Dr. Nimisha Oseguera MD Status:ADM I N Location: [place] [address] Subjective Subjective Had a temp of 99.7 last night and that was while getting acetaminophen 1 g p.o. every 8 hours. VSS -blood pressure is pretty much at goal. Heart rate is within normal limits. Maintaining appropriate oxygen saturation on RA Oral intake - FOOD good FLUIDS fair....... at 1260 in yesterday. Needs frequent reminders to increase his fluid intake. Incontinent of urine - large amounts. Discussed with nursing - no problems that need addressed....no issues per night nursing last night. Reviewed the THERAPY notes Medication list reviewed. Denies sore throat, rhinorrhea, headache, chest pain, nausea/vomiting/abdominal pain and calf pain. When I asked if he had burning with urination he says a little. He had a straight catheterization yesterday for a postvoid residual of 320. Has been incontinent of urine but this has been since admission. Occasional cough, nothing out of the ordinary. Objective Data Objective Data Vital Signs: Vital Signs Temp Pulse Resp BP Pulse Ox O2 Del Method O2 Flow Rate 98.8 F 64 16 142/69 H 93 Room Air 2 10/15/24 05:18 10/15/24 11:17 10/15/24 11:17 10/15/24 05:18 10/15/24 11:17 10/15/24 11:17 10/15/24 00:34 FiO2 21 09/28/24 21:15 Oxygen Flow Rate (L/min) 2 Oxygen Delivery Method Room Air Weight: 141 lb 1.533 oz Body Mass Index (BMI) 27.7 Intake & Output: Intake and Output for Last 24 Hours 10/13/24 10/14/24 10/15/24 23:59 23:59 23:59 Intake Total 960 / 1040 1260 / 1260 950 / 950 Output Total 750 / 750 600 / 600 250 / 250 Balance 210 / 290 660 / 660 700 / 700 Lab / Micro Data 10/10/24 05:41 10/10/24 05:41 Micro: Microbiology 09/29/24 09:12 Exudate Gram Stain - Final 09/29/24 09:12 Exudate Wound Culture - Final Staphylococcus aureus 09/30/24 04:43 Stool Stool Occult Blood (JOVANI) - Final Occult Blood Positive Physical Exam Const alert and no apparent distress Constitutional Narrative: Impulsive and trying to get out of bed by himself without calling for assistance. Lying flat in bed when I entered his room and appeared comfortable with no SOB and no conversatinal dyspnea. Pleasant with me. General Appearance: cooperative and well kempt HEENT head/scalp atraumatic Eyes PERRL, EOMs intact bilaterally and no scleral icterus Eyes Narrative: No Dc from the eyes. No swelling of the lid margins and the redness has resolvedwith treatment for MSSA conjunctivitis. Neck No nodes and no carotid bruits General: trachea midline Chest Chest: symmetrical chest wall rise Resp normal respiratory effort Resp Narrative: diminished throughout. Persistent coarse crackles in the L base.....chronic since admission. No wheezing. Not tachypneic. No conversational dyspnea. Effort and Inspection: able to speak in complete sentences; Negative for tachypneic, respiratory distress or labored Cardio regular rate, regular rhythm and no gallops Cardio Narrative: No ectopy today. GI normal to inspection, nondistended, normoactive bowel sounds, soft to palpation and non-tender GI Narrative: Bladder feels a little distended. no CVA tenderness Extremity no calf tenderness General Extremity: Negative for edema Skin no jaundice Skin Narrative: Dry skin Rashes: no rashes Wound Narrative: Small split in the skin over the distal coccyx.......will continue Calmoseptine. Hair: male pattern alopecia Neuro Neuro Narrative: Right facial droop, tongue protrudes on the midline, mild dysarthria. No visualfield cuts, pupils are equal round and reactive to light and accommodation, extraocular muscles are intact. Decreased hearing. 5/5 strength in both upperextremities. He is right-hand dominant. The left leg fell to the bed prior to5 seconds. No ataxia in the upper extremities. Could not adequately check for ataxia in the left lower extremity due to weakness of the left lower extremity. Decreased sensation in the left arm and left leg. No extinction. No aphasia. I did not ambulate him. Psych cooperative, denies hallucinations and denies suicidal ideation Psych Narrative: Impulsive at night. During the day he is using his call light. Has been very cooperative with everyone and always pleasant with no agitation since the Seroquel was added to the drug regimen. sleeping well at night now. Appearance: grossly normal, appropriate and well kempt Attitude: calm and engaged Activity / Motor Behavior: appropriate eye contact; Negative for psychomotor agitation, psychomotor slowing or fidgetting Speech: normal speech Assessment & Plan Assessment/Plan (1) Debility: (2) Acute ischemic right MCA stroke: (3) Left leg weakness: (4) Facial droop: (5) Cognitive dysfunction: (6) Inferior pubic ramus fracture: QUALIFIERS: Encounter type: initial encounter Fracture type: closed Laterality: left Qualified Code(s): S32.592A - Other specified fracture of left pubis, initial encounter for closed fracture (7) Pain aggravated by physical activity: (8) Essential (primary) hypertension: (9) Hypoxemia associated with sleep: (10) Dementia with behavioral disturbance: (11) Oropharyngeal dysphagia: (12) Aspiration into trachea: (13) Eosinophilia, unspecified: QUALIFIERS: Eosinophilia type: unspecified eosinophilia QualifiedCode(s): D72.10 - Eosinophilia, unspecified (14) Fever: PLAN: UA yesterday only showed microscopic hematuria but, he had a straight cathand bacteria could have been introduced. Will recheck today for pyuria. will also get a PA and LAT CXR. (15) Microscopic hematuria: (16) Urinary retention: PLAN: Will order 3 more PVR's........ he is incontinent so will try and bladder scan when he is wet when they scan him PLAN: Plan 1. Continue therapy 2. Check 3 more postvoid residuals. Straight cath for UA today since he did tell me that he has burning with urination and was straight cath'd yesterday. 3. PA and lateral CXR. 4. BMP and CBC with diff in the AM. 5. hold Tylenol. Charges/Coding Visit Charges Inpatient E&M: 85405 Subs Hosp L1 10/15/24 1544 <Electronically signed by Shay Gaxiola DO> Shay Gaxiola DO Cosigner Signature (if applicable): CC: ~ Signed ADDENDUM by Dr. Shay Gaxiola DO on 10/15/24 at 1550 Addendum I reviewed the CXR. Increased interstitial markings throughout, no obvious infiltrates, no pleural effusions. He is able to lie flat in bed with no tachypnea and no SOB. No PND. no swelling in the ankles. Suspect he has some chronic lung disease........possibly fibrosis. Cough is much better than at admission to the hospital. Better air exchange. Add a BNP to the lab ordred fortomorrow. 10/15/24 1550 <Electronically signed by Shay perry DO> Date _ Shay Gaxiola DO Cosigner Signature (if applicable): Date cc: ~* Signed [facility] Work Phone: [phone] 371-125806-10-2025 Radiology Diagnostic study note [facility] [place] Imaging Services [address], [place] [address] Chest PA and Lateral MR#: [id number] Acct: [id number] Name: AYESHA JACOBSEN Rep #: [id number] : 1935 M 89 From: Shauna Le MD PCP: Dr. Nimisha Oseguera MD Status: ADM I N Study:Chest PA and Lateral Date of Exam: 10/15/24 Exam# [id number] Ordering Dr: Shay Gaxiola DO PROCEDURE: CHEST PA AND LATERAL 10/15/2024 REASON FOR EXAM: FEVER/COUGH TECHNIQUE: Frontal and lateral views of the chest. COMPARISON: 09/28/2024 FINDINGS: Mild pulmonary vascular congestion. No focal consolidations. Trace left base effusion. No significant right base effusion. No pneumothorax. Calcified aortic arch. Cardiac silhouette is unchanged. RAD/Chest PA and Lateral IMPRESSION: Mild pulmonary vascular congestion. No focal consolidations. Trace left base effusion. Reading Location: [id number] CC: Dr. Nimisha Oseguera MD; Dr. Shay Gaxiola DO ~ Machine Bobbin Winder: Signed [facility]06-10-2025 Progress note [facility] Medical Records Department [address] [place] [address] Progress Note 10/15/24 1513 MR#: [id number] Acct: [id number] Name: AYESHA JACOBSEN Rep #:[id number] : 1935 89 From: Shay Gaxiola DO PCP: Dr. Nimisha Oseguera MD Status:ADM I N Location: [place] [address] Subjective Subjective Had a temp of 99.7 last night and that was while getting acetaminophen 1 g p.o. every 8 hours. VSS -blood pressure is pretty much at goal. Heart rate is within normal limits. Maintaining appropriate oxygen saturation on RA Oral intake - FOOD good FLUIDS fair....... at 1260 in yesterday. Needs frequent reminders to increase his fluid intake. Incontinent of urine - large amounts. Discussed with nursing - no problems that need addressed....no issues per night nursing last night. Reviewed the THERAPY notes Medication list reviewed. Denies sore throat, rhinorrhea, headache, chest pain, nausea/vomiting/abdominal pain and calf pain.When I asked if he had burning with urination he says a little. He had a straight catheterization yesterday for a postvoid residual of 320. Has been incontinent of urine but this has been since admission. Occasional cough, nothing out of the ordinary. Objective Data Objective Data Vital Signs: Vital Signs Temp Pulse Resp BP Pulse Ox O2 Del Method O2 Flow Rate 98.8 F 64 16 142/69 H 93 Room Air 2 10/15/24 05:18 10/15/24 11:17 10/15/24 11:17 10/15/24 05:18 10/15/24 11:17 10/15/24 11:17 10/15/24 00:34 FiO2 21 09/28/24 21:15 Oxygen Flow Rate (L/min) 2 Oxygen Delivery Method Room Air Weight: 141 lb 1.533 oz Body Mass Index (BMI) 27.7 Intake & Output: Intake and Output for Last 24 Hours 10/13/24 10/14/24 10/15/24 23:59 23:59 23:59 Intake Total 960 / 1040 1260 / 1260 950 / 950 Output Total 750 / 750 600 / 600 250 / 250 Balance 210 / 290 660 / 660 700 / 700 Lab / Micro Data 10/10/24 05:41 10/10/24 05:41 Micro: Microbiology 09/29/24 09:12 Exudate Gram Stain - Final 09/29/24 09:12 Exudate Wound Culture - Final Staphylococcus aureus 09/30/24 04:43 Stool Stool Occult Blood (JOVANI) - Final Occult Blood Positive Physical Exam Const alert and no apparent distress Constitutional Narrative: Impulsive and trying to get out of bed by himself without calling for assistance. Lying flat in bedwhen I entered his room and appeared comfortable with no SOB and no conversatinal dyspnea. Pleasantwith me. General Appearance: cooperative and well kempt HEENT head/scalp atraumatic Eyes PERRL, EOMs intact bilaterally and no scleral icterus Eyes Narrative: No Dc from the eyes. No swelling of the lid margins and the redness has resolvedwith treatment for MSSA conjunctivitis. Neck No nodes and no carotid bruits General: trachea midline Chest Chest: symmetrical chest wall rise Resp normal respiratory effort Resp Narrative: diminished throughout. Persistent coarse crackles in the L base.....chronic since admission. No wheezing. Not tachypneic. No conversational dyspnea. Effort and Inspection: able to speak in complete sentences; Negative for tachypneic, respiratory distress or labored Cardio regular rate, regular rhythm and no gallops Cardio Narrative: No ectopy today. GI normal to inspection, nondistended, normoactive bowel sounds, soft to palpation and non-tender GI Narrative: Bladder feels a little distended. no CVA tenderness Extremity no calf tenderness General Extremity: Negative for edema Skin no jaundice Skin Narrative: Dry skin Rashes: no rashes Wound Narrative: Small split in the skin over the distal coccyx.......will continue Calmoseptine. Hair: male pattern alopecia Neuro Neuro Narrative: Right facial droop, tongue protrudes on the midline, mild dysarthria. No visualfield cuts, pupils are equal round and reactive to light and accommodation, extraocular muscles are intact. Decreased hearing. 5/5 strength in both upperextremities. He is right-hand dominant. The left leg fell to the bed prior to5 seconds. No ataxia in the upper extremities. Could not adequately check for ataxia in the left lower extremity due to weakness of the left lower extremity. Decreased sensation in the left arm and left leg. No extinction. No aphasia. I did not ambulate him. Psych cooperative, denies hallucinations and denies suicidal ideation Psych Narrative: Impulsive at night. During the day he is using his call light. Has been very cooperative with everyone and always pleasant with no agitation since the Seroquel was added to the drug regimen. sleepingwell at night now. Appearance: grossly normal, appropriate and well kempt Attitude: calm and engaged Activity / Motor Behavior: appropriate eye contact; Negative for psychomotor agitation, psychomotorslowing or fidgetting Speech: normal speech Assessment & Plan Assessment/Plan (1) Debility: (2) Acute ischemic right MCA stroke: (3) Left leg weakness: (4) Facial droop: (5) Cognitive dysfunction: (6) Inferior pubic ramus fracture: QUALIFIERS: Encounter type: initial encounter Fracture type: closed Laterality: left Qualified Code(s): S32.592A - Other specified fracture of left pubis, initial encounter for closed fracture (7) Pain aggravated by physical activity: (8) Essential (primary) hypertension: (9) Hypoxemia associated with sleep: (10) Dementia with behavioral disturbance: (11) Oropharyngeal dysphagia: (12) Aspiration into trachea: (13) Eosinophilia, unspecified: QUALIFIERS: Eosinophilia type: unspecified eosinophilia QualifiedCode(s): D72.10 - Eosinophilia, unspecified (14) Fever: PLAN: UA yesterday only showed microscopic hematuria but, he had a straight cathand bacteria could have been introduced. Will recheck today for pyuria. will also get a PA and LAT CXR. (15) Microscopic hematuria: (16) Urinary retention: PLAN: Will order 3 more PVR's........ he is incontinent so will try and bladder scan when he is wetwhen they scan him PLAN: Plan 1. Continue therapy 2. Check 3 more postvoid residuals. Straight cath for UA today since he did tell me that he has burning with urination and was straight cath'd yesterday. 3. PA and lateral CXR. 4. BMP and CBC with diff in the AM. 5. hold Tylenol. Charges/Coding Visit Charges Inpatient E&M: 20777 Subs Hosp L1 10/15/24 1544 Shay Gaxiola DO Cosigner Signature (if applicable): CC: ~ Signed ADDENDUM by Dr. Shay Gaxiola DO on 10/15/24 at 1550 Addendum I reviewed the CXR. Increased interstitial markings throughout, no obvious infiltrates, no pleural effusions. He is able to lie flat in bed with no tachypnea and no SOB. No PND. no swelling in the ankles. Suspect he has some chronic lung disease........possibly fibrosis. Cough is much better than at admission to the hospital. Better air exchange. Add a BNP to the lab danielle noel. 10/15/24 1550 ti DO> Date _ Shay Gaxiola Signature (if applicable): Date cc: ~* Signed [facility]06-09-2025 Progress note Author Shay Gaxiola [facility] Note Date/Time October 14, 2024 2:54p m [facility] Medical Records Department [address] [place] [address] Progress Note 10/14/24906 MR#: [id number] Acct: [id number] Name: AYESHA JACOBSEN Rep #:[id number] : 1935 89 From: Shay Calvovicky MEDINA PCP: Dr. Nimisha Oseguera MD Status:ADM I N Location: [place] [address] Subjective Subjective Zane was seen on TEAM rounds today. His dtr left a message with the SW Monday that she was leaving for vacation. His son Keagan participated via speaker phone today. He is unaware of all the issues with his father and the fact that 24/7 supervision is needed. He is unaware of the diagnosis of dementia. He knows his mother just got out of the hospital. Afebrile VSS -blood pressure is within goal. Heart rate is within normal limits. Maintaining appropriate oxygen saturation on RA Oral intake - FOOD good FLUIDS poor Discussed with nursing - Slept well on Monday and Monday nights and then last night was restless and confused. He received Trazodone which is ordered PRN but, nursing did not fell this was effective. He is known to . Had to have straight cath last night for a residual of 318. UA was sent and it showed. Microscopic hematuria with 10-25 RBCs per high-power field and no WBCs. There was no bacteria. Reviewed the THERAPY notes Medication list reviewed. BCAT repeated today and he scored 10 points higher (33/50 today). Cooperative with therapy. Sleep pattern is erratic. He sleeps well for a couple nights andthen he is restless and awake for a night or 2. Pain is adequately controlled. Denies lightheadedness, CP, SOB, dysuria. Pleasant and cooperative with everyone during the day. Objective Data Objective Data Vital Signs: Vital Signs Temp Pulse Resp BP Pulse Ox O2 Del Method O2 Flow Rate 98.1 F 88 16 142/70 H 95 Nasal Cannula 2 10/14/24 06:08 10/14/24 08:06 10/14/24 06:23 10/14/24 06:08 10/14/24 06:23 10/14/24 06:23 10/14/24 06:23 FiO2 21 09/28/24 21:15 Oxygen Flow Rate (L/min) 2 Oxygen Delivery Method Nasal Cannula Weight: 141 lb 1.533 oz Body Mass Index (BMI) 27.7 Intake & Output: Intake and Output for Last 24 Hours 10/12/24 10/13/24 10/14/24 23:59 23:59 23:59 Intake Total 1020 / 1020 960 / 1040 670 / 670 Output Total 755 / 755 750 / 750 600 / 600 Balance 265 / 265 210 / 290 70 / 70 Lab / Micro Data 10/10/24 05:41 10/10/24 05:41 Labs: Laboratory Results - last 24 hr 10/14/24 02:25: Urine Color Yellow, Urine Clarity Clear, Urine pH 6.5, Ur Specific Oaks 1.010, Urine Protein Negative, Urine Glucose (UA) Normal, UrineKetones Negative, Urine Occult Blood 250 H, Urine Nitrite Negative, Urine Bilirubin Negative, Urine Urobilinogen Normal, Ur Leukocyte Esterase Negative, Urine RBC 10-25 SEEN, Urine WBC 0 SEEN, Ur Squamous Epith Cells 0 SEEN, Urine Bacteria 0 SEEN, Urine Mucus 0 SEEN Micro: Microbiology 09/29/24 09:12 Exudate Gram Stain - Final 09/29/24 09:12 Exudate Wound Culture - Final Staphylococcus aureus 09/30/24 04:43 Stool Stool Occult Blood (JOVANI) - Final Occult Blood Positive Physical Exam Const alert and no apparent distress Constitutional Narrative: No grmiacing with sit to stands today. Appears to be tolerating therapy well with no balking do to pain. General Appearance: cooperative Eyes Eyes Narrative: No Dc from the eyes. No swelling of the lid margins and the redness has resolvedwith treatment for MSSA conjunctivitis. Resp normal respiratory effort Resp Narrative: Persistent crackles in the Left base........suspect this is due to scarring. Nowheezing. Effort and Inspection: Negative for tachypneic, respiratory distress or labored Cardio regular rate, regular rhythm and no gallops GI normal to inspection, nondistended, normoactive bowel sounds and soft to palpation GI Narrative: No guarding with palpation. Extremity no calf tenderness General Extremity: Negative for edema Assessment & Plan Assessment/Plan (1) Debility: (2) Acute ischemic right MCA stroke: (3) Left leg weakness: (4) Facial droop: (5) Cognitive dysfunction: (6) Paresthesias: (7) Inferior pubic ramus fracture: QUALIFIERS: Encounter type: initial encounter Fracture type: closed Laterality: left Qualified Code(s): S32.592A - Other specified fracture of left pubis, initial encounter for closed fracture (8) Pain aggravated by physical activity: (9) Hypophosphatemia: (10) GERD (gastroesophageal reflux disease): QUALIFIERS: Esophagitis presence: without esophagitis Qualified Code(s): K21.9 - Gastro-esophageal reflux disease without esophagitis (11) Esophageal stenosis: (12) History of esophageal dilatation: (13) Dyslipidemia: (14) BPH (benign prostatic hyperplasia): QUALIFIERS: Lower urinary tract symptom presence: unspecified whether lower urinary tract symptoms present Qualified Code(s): N40.0 - Benign prostatic hyperplasia without lower urinary tract symptoms (15) Essential (primary) hypertension: (16) Hypoxemia associated with sleep: (17) Acute bronchitis: QUALIFIERS: Bronchitis organism: unspecified organism Qualified Code(s): J20.9 - Acute bronchitis, unspecified (18) Conjunctivitis: QUALIFIERS: Conjunctivitis type: acute Acute conjunctivitis type:bacterial Laterality: left Qualified Code(s): H10.32 - Unspecified acute conjunctivitis, left eye (19) Dementia with behavioral disturbance: (20) Productive cough: (21) Oropharyngeal dysphagia: (22) Aspiration into trachea: (23) Eosinophilia, unspecified: QUALIFIERS: Eosinophilia type: unspecified eosinophilia QualifiedCode(s): D72.10 - Eosinophilia, unspecified (24) Microscopic hematuria: PLAN: Plan 1. Continue therapy 2. Add Aricept to the current drug regimen. 3. Decrease the Seroquel to 25 mg Q HS. 4. EKG today to check the QT interval. QT is 412 so not prolonged. Will recheck an EKG in a few days since he will be taking 215 mg of Seroquel and Aricept 5 mg Q HS 5. follow up with neurology post discharge. I spoke to Keagan after the TEAM meeting. We can not wait for Shay to get back from vacation to make a decision about where he will go at DC from rehab. I think that he will need assisted living.....both he and his . I recommended ShayJose and Keagan talk and make a decision about the plan for DC. If there is not plan for 24H/7D supervision will need to call APS. Keagan later spoke to [facility] on the phone and she is giving him info on assisted living facilities and telling him what to do.......this was all given to Shay last week. Charges/Coding Visit Charges Inpatient E&M: 62584 Subs Hosp L2 10/14/24 3810 <Electronically signed by Shay Gaxiola DO> Shay Daily Gaxiola DO Cosigner Signature (if applicable): CC: ~ Signed [facility] Work Phone: 1(181) 274-578006-09-2025 Progress note [facility] Medical Records Department [address] [place] [address] Progress Note 10/14/24906 MR#: [id number] Acct: [id number] Name: AYESHA JACOBSEN Rep #:[id number] : 1935 89 From: Shay Gaxiola DO PCP: Dr. Nimisha Oseguera MD Status:ADM I N Location: [place] [address] Subjective Subjective Zane was seen on TEAM rounds today. His dtr left a message with the SW Monday that she was leaving for vacation. His son Keagan participated via speaker phone today. He is unaware of all the issues withhis father and the fact that 24/ supervision is needed. He is unaware of the diagnosis of dementia. He knows his mother just got out of the hospital. Afebrile VSS -blood pressure is within goal. Heart rate is within normal limits. Maintaining appropriate oxygen saturation on RA Oral intake - FOOD good FLUIDS poor Discussed with nursing - Slept well on Monday and Monday nights and then last night was restless and confused. He received Trazodone which is ordered PRN but, nursing did not fell this was effective. He is known to . Had to have straight cath last night for a residual of 318. UA was sent and it showed. Microscopic hematuria with 10-25 RBCs per high-power field and no WBCs. There was no bacteria. Reviewed the THERAPY notes Medication list reviewed. BCAT repeated today and he scored 10 points higher (33/50 today). Cooperative with therapy. Sleep pattern is erratic. He sleeps well for a couple nights andthen he is restless and awake for a night or 2. Pain is adequately controlled. Denies lightheadedness, CP, SOB, dysuria. Pleasant and cooperative with everyone during the day. Objective Data Objective Data Vital Signs: Vital Signs Temp Pulse Resp BP Pulse Ox O2 Del Method O2 Flow Rate 98.1 F 88 16 142/70 H 95 Nasal Cannula 2 10/14/24 06:08 10/14/24 08:06 10/14/24 06:23 10/14/24 06:08 10/14/24 06:23 10/14/24 06:23 10/14/24 06:23 FiO2 21 09/28/24 21:15 Oxygen Flow Rate (L/min) 2 Oxygen Delivery Method Nasal Cannula Weight: 141 lb 1.533 oz Body Mass Index (BMI) 27.7 Intake & Output: Intake and Output for Last 24 Hours 10/12/24 10/13/24 10/14/24 23:59 23:59 23:59 Intake Total 1020 / 1020 960 / 1040 670 / 670 Output Total 755 / 755 750 / 750 600 / 600 Balance 265 / 265 210 / 290 70 / 70 Lab / Micro Data 10/10/24 05:41 10/10/24 05:41 Labs: Laboratory Results - last 24 hr 10/14/24 02:25: Urine Color Yellow, Urine Clarity Clear, Urine pH 6.5, Ur Specific Oaks 1.010, Urine Protein Negative, Urine Glucose (UA) Normal, UrineKetones Negative, Urine Occult Blood 250 H, Urine Nitrite Negative, Urine Bilirubin Negative, Urine Urobilinogen Normal, Ur Leukocyte Esterase Negative, Urine RBC 10-25 SEEN, Urine WBC 0 SEEN, Ur Squamous Epith Cells 0 SEEN, Urine Bacteria 0 SEEN, Urine Mucus 0 SEEN Micro: Microbiology 09/29/24 09:12 Exudate Gram Stain - Final 09/29/24 09:12 Exudate Wound Culture - Final Staphylococcus aureus 09/30/24 04:43 Stool Stool Occult Blood (JOVANI) - Final Occult Blood Positive Physical Exam Const alert and no apparent distress Constitutional Narrative: No grmiacing with sit to stands today. Appears to be tolerating therapy well with no balking do to pain. General Appearance: cooperative Eyes Eyes Narrative: No Dc from the eyes. No swelling of the lid margins and the redness has resolvedwith treatment for MSSA conjunctivitis. Resp normal respiratory effort Resp Narrative: Persistent crackles in the Left base........suspect this is due to scarring. Nowheezing. Effort and Inspection: Negative for tachypneic, respiratory distress or labored Cardio regular rate, regular rhythm and no gallops GI normal to inspection, nondistended, normoactive bowel sounds and soft to palpation GI Narrative: No guarding with palpation. Extremity no calf tenderness General Extremity: Negative for edema Assessment & Plan Assessment/Plan (1) Debility: (2) Acute ischemic right MCA stroke: (3) Left leg weakness: (4) Facial droop: (5) Cognitive dysfunction: (6) Paresthesias: (7) Inferior pubic ramus fracture: QUALIFIERS: Encounter type: initial encounter Fracture type: closed Laterality: left Qualified Code(s): S32.592A - Other specified fracture of left pubis, initial encounter for closed fracture (8) Pain aggravated by physical activity: (9) Hypophosphatemia: (10) GERD (gastroesophageal reflux disease): QUALIFIERS: Esophagitis presence: without esophagitis Qualified Code(s): K21.9 - Gastro-esophageal reflux disease without esophagitis (11) Esophageal stenosis: (12) History of esophageal dilatation: (13) Dyslipidemia: (14) BPH (benign prostatic hyperplasia): QUALIFIERS: Lower urinary tract symptom presence: unspecified whether lower urinary tract symptoms present Qualified Code(s): N40.0 - Benign prostatic hyperplasia without lower urinary tract symptoms (15) Essential (primary) hypertension: (16) Hypoxemia associated with sleep: (17) Acute bronchitis: QUALIFIERS: Bronchitis organism: unspecified organism Qualified Code(s): J20.9 - Acute bronchitis, unspecified (18) Conjunctivitis: QUALIFIERS: Conjunctivitis type: acute Acute conjunctivitis type:bacterial Laterality: left Qualified Code(s): H10.32 - Unspecified acute conjunctivitis, left eye (19) Dementia with behavioral disturbance: (20) Productive cough: (21) Oropharyngeal dysphagia: (22) Aspiration into trachea: (23) Eosinophilia, unspecified: QUALIFIERS: Eosinophilia type: unspecified eosinophilia QualifiedCode(s): D72.10 - Eosinophilia, unspecified (24) Microscopic hematuria: PLAN: Plan 1. Continue therapy 2. Add Aricept to the current drug regimen. 3. Decrease the Seroquel to 25 mg Q HS. 4. EKG today to check the QT interval. QT is 412 so not prolonged. Will recheck an EKG in a few days since he will be taking 215 mg of Seroquel and Aricept 5 mg Q HS 5. follow up with neurology post discharge. I spoke to Keagan after the TEAM meeting. We can not wait for Shay to get back from vacation to make a decision about where he will go at DC from rehab. I think that he will need assisted living.....both he and his . I recommended Jose Reyes and Keagan talk and make a decision about the plan for DC. If there is not plan for 24H/7D supervision will need to call APS. Keagan later spoke to SW on the phone and she is giving him info on assisted living facilities and telling him what to do.......this was all given to Shay last week. Charges/Coding Visit Charges Inpatient E&M: 02756 Subs Hosp L2 10/14/24 8835 Shay Gaxiola DO Cosigner Signature (if applicable): CC: ~ Signed [facility]06-05-2025 Progress note Author Shay Gaxiola [facility] Note Date/Time October 10, 2024 2:59p m [facility] Medical Records Department [address] [place] [address] Progress Note 10/10/24 1020 MR#: [id number] Acct: [id number] Name: AYESHA JACOBSEN Rep #:[id number] : 1935 89 From: Shay Gaxiola DO PCP: Dr. Nimisha Oseguera MD Status:ADM I N Location: [place] [address] Subjective Subjective Afebrile VSS -blood pressure is at goal of Less than 140/80. Heart rate is within normallimits. Maintaining appropriate oxygen saturation on RA Oral intake - FOOD good FLUIDS poor yesterday. He only took 680 p.o. Output is not generally accurate secondary to urinary incontinence. Postvoid residuals are not consistent with urine retention. He is continent of stool. Having regular bowel movements. Discussed with nursing - no problems that need addressed....Nursing reports thathe has slept better the past few night. Has not had to have Trazodone. Not always wearing the O2 at night. Reviewed the THERAPY notes Medication list reviewed. All lab today was personally reviewed. White blood cell count is mildly increased at 11.7. Diff ordered. Hemoglobin is 11.6 and platelets are within normal limits. Sodium is 142 and the potassium is 4.7. The BUN is 26 and stable. Creatinine is 1.17 which is up from 1.06 one week ago. LFTs are normal. Eos are down to 9.6% from 11.5 the other day Family brought in the 30 day event monitor and we will apply while on rehab. Zane denies any nightmares last night. He has no complaints today. He tells me the pain is better. Still impulsive and trying to get up by himself. MOD A fortoileting to manage clothing. Incontinent of urine. Objective Data Objective Data Vital Signs: Vital Signs Temp Pulse Resp BP Pulse Ox O2 Del Method O2 Flow Rate 98.3 F 70 16 127/63 H 92 Room Air 2 10/10/24 03:34 10/10/24 07:56 10/10/24 06:48 10/10/24 03:34 10/10/24 06:48 10/10/24 06:48 10/09/24 21:14 FiO2 21 09/28/24 21:15 Oxygen Flow Rate (L/min) 2 Oxygen Delivery Method Room Air Weight: 141 lb 1.533 oz Body Mass Index (BMI) 27.7 Intake & Output: Intake and Output for Last 24 Hours 10/08/24 10/09/24 10/10/24 23:59 23:59 23:59 Intake Total 1410 / 1410 680 / 680 240 / 240 Output Total 645 / 645 140 / 140 Balance 765 / 765 540 / 540 240 / 240 Lab / Micro Data 10/10/24 05:41 10/10/24 05:41 Labs: Laboratory Results - last 24 hr 10/10/24 05:41: WBC 11.7 H, RBC 3.84 L, Hgb 11.6 L, Hct 35.0 L, MCV 91.1, MCH 30.2, MCHC 33.1, RDW Std Deviation 49.1 H, RDW Coeff of Brook 14.7 H, Plt Count 333, MPV 9.9, Sodium 142, Potassium 4.7, Chloride 105, Carbon Dioxide 28.6, Anion Gap 9, BUN 26 H, Creatinine 1.17, Estim Creat Clear Calc 34.32 L, Est GFR (MDRD) Non-Af 60, BUN/Creatinine Ratio 22.1 H, Glucose 88, Calcium 9.0, Total Bilirubin 0.46, AST 19, ALT 16, Alkaline Phosphatase 105, Total Protein 6.1, Albumin 3.2 L, Globulin 2.9, Albumin/Globulin Ratio 1.1 Micro: Microbiology 09/29/24 09:12 Exudate Gram Stain - Final 09/29/24 09:12 Exudate Wound Culture - Final Staphylococcus aureus 09/30/24 04:43 Stool Stool Occult Blood (JOVANI) - Final Occult Blood Positive Physical Exam Const alert and no apparent distress Constitutional Narrative: Sitting in the recliner at the bedside. Engaged in conversation. I observed him eating his lunch and he is not coughing. He is feeding himself. Does not appear drowsy today. Did OT mostly in the WC......kept saying I'm done to the therapist. General Appearance: cooperative Resp Resp Narrative: Persistent coarse crackles in the left base posteriorly. No wheezing. Did not cough with deep breathing. Not tachypneic and no conversational dyspnea. Cardio regular rate, regular rhythm and no gallops Cardio Narrative: No ectopy today. GI normal to inspection, nondistended, normoactive bowel sounds, soft to palpation and non-tender GI Narrative: having some loose stool. No guarding with palpation. BS's are not hyperactive. Extremity no calf tenderness General Extremity: Negative for edema Skin Rashes: no rashes Wound Narrative: Small split in the skin over the distal coccyx.......will continue Calmoseptine. Assessment & Plan Assessment/Plan (1) Debility: (2) Acute ischemic right MCA stroke: (3) Left leg weakness: (4) Facial droop: (5) Cognitive dysfunction: (6) Paresthesias: (7) Inferior pubic ramus fracture: QUALIFIERS: Encounter type: initial encounter Fracture type: closed Laterality: left Qualified Code(s): S32.592A - Other specified fracture of left pubis, initial encounter for closed fracture (8) Pain aggravated by physical activity: (9) Hypophosphatemia: (10) GERD (gastroesophageal reflux disease): QUALIFIERS: Esophagitis presence: without esophagitis Qualified Code(s): K21.9 - Gastro-esophageal reflux disease without esophagitis (11) Esophageal stenosis: (12) History of esophageal dilatation: (13) Dyslipidemia: (14) BPH (benign prostatic hyperplasia): QUALIFIERS: Lower urinary tract symptom presence: unspecified whether lower urinary tract symptoms present Qualified Code(s): N40.0 - Benign prostatic hyperplasia without lower urinary tract symptoms (15) Essential (primary) hypertension: (16) Hypoxemia associated with sleep: (17) Acute bronchitis: QUALIFIERS: Bronchitis organism: unspecified organism Qualified Code(s): J20.9 - Acute bronchitis, unspecified (18) Conjunctivitis: QUALIFIERS: Conjunctivitis type: acute Acute conjunctivitis type:bacterial Laterality: left Qualified Code(s): H10.32 - Unspecified acute conjunctivitis, left eye (19) Dementia with behavioral disturbance: (20) Productive cough: (21) Oropharyngeal dysphagia: (22) Aspiration into trachea: (23) Eosinophilia, unspecified: QUALIFIERS: Eosinophilia type: unspecified eosinophilia QualifiedCode(s): D72.10 - Eosinophilia, unspecified PLAN: not sure what is causing this but, the absolute eosinophil count is only 1,123 and he has no rash and no pruritus so no need for further work up at this time. PLAN: Plan 1. Continue therapy. 2. Not sure how much more progress he is going to be able to make on rehab. Heis now sleeping at night and pain is adequately controlled. Cough is very rare now since ST changed his diet. ? whether family is going to be able to provide enough supervision to Zane and his (also recently discharged from the hospital) - Zane needs 24/ supervision. D/W SW and she is going to reach out tohis dtr to discuss DC. He has increased pain after therapy/wt bearing but, he needs to keep moving to prevent muscle atrophy and frozen joints. 3. Continue the current drug regimen. 4. No further W/U for increase in eosinophil % since he is asymptomatic and theabsolute eosinophil count is less than 1,500. Charges/Coding Visit Charges Inpatient E&M: 53722 Subs Hosp L1 10/10/24 2006 <Electronically signed by Shay Gaxiola DO> Shay Gaxiola DO Cosigner Signature (if applicable): CC: ~ Signed [facility] Work Phone: 1(156) 673-542206-05-2025 Progress note [facility] Medical Records Department [address] [place] [address] Progress Note 10/10/24 1020 MR#: [id number] Acct: [id number] Name: AYESHA JACOBSEN Rep #:[id number] : 1935 89 From: Shay Gaxiola DO PCP: Dr. Nimisha Oseguera MD Status:ADM I N Location: [place] [address]1 Subjective Subjective Afebrile VSS -blood pressure is at goal of Less than 140/80. Heart rate is within normallimits. Maintaining appropriate oxygen saturation on RA Oral intake - FOOD good FLUIDS poor yesterday. He only took 680 p.o. Output is not generally accurate secondary to urinary incontinence. Postvoid residuals are not consistent with urine retention. Heis continent of stool. Having regular bowel movements. Discussed with nursing - no problems that need addressed....Nursing reports thathe has slept betterthe past few night. Has not had to have Trazodone. Not always wearing the O2 at night. Reviewed the THERAPY notes Medication list reviewed. All lab today was personally reviewed. White blood cell count is mildly increased at 11.7. Diff ordered. Hemoglobin is 11.6 and platelets are within normal limits. Sodium is 142 and the potassium is 4.7. The BUN is 26 and stable. Creatinine is 1.17 which is up from 1.06 one week ago. LFTs are normal. Eos are down to 9.6% from 11.5 the other day Family brought in the 30 day event monitor and we will apply while on rehab. Zane denies any nightmares last night. He has no complaints today. He tells me the pain is better. Still impulsive and trying to get up by himself. MOD A fortoileting to manage clothing. Incontinent of urine. Objective Data Objective Data Vital Signs: Vital Signs Temp Pulse Resp BP Pulse Ox O2 Del Method O2 Flow Rate 98.3 F 70 16 127/63 H 92 Room Air 2 10/10/24 03:34 10/10/24 07:56 10/10/24 06:48 10/10/24 03:34 10/10/24 06:48 10/10/24 06:48 10/09/24 21:14 FiO2 21 09/28/24 21:15 Oxygen Flow Rate (L/min) 2 Oxygen Delivery Method Room Air Weight: 141 lb 1.533 oz Body Mass Index (BMI) 27.7 Intake & Output: Intake and Output for Last 24 Hours 10/08/24 10/09/24 10/10/24 23:59 23:59 23:59 Intake Total 1410 / 1410 680 / 680 240 / 240 Output Total 645 / 645 140 / 140 Balance 765 / 765 540 / 540 240 / 240 Lab / Micro Data 10/10/24 05:41 10/10/24 05:41 Labs: Laboratory Results - last 24 hr 10/10/24 05:41: WBC 11.7 H, RBC 3.84 L, Hgb 11.6 L, Hct 35.0 L, MCV 91.1, MCH 30.2, MCHC 33.1, RDW Std Deviation 49.1 H, RDW Coeff of Brook 14.7 H, Plt Count 333, MPV 9.9, Sodium 142, Potassium 4.7, Chloride 105, Carbon Dioxide 28.6, Anion Gap 9, BUN 26 H, Creatinine 1.17, Estim Creat Clear Calc 34.32 L, Est GFR (MDRD) Non-Af 60, BUN/Creatinine Ratio 22.1 H, Glucose 88, Calcium 9.0, Total Bilirubin0.46, AST 19, ALT 16, Alkaline Phosphatase 105, Total Protein 6.1, Albumin 3.2 L, Globulin 2.9, Albumin/Globulin Ratio 1.1 Micro: Microbiology 09/29/24 09:12 Exudate Gram Stain - Final 09/29/24 09:12 Exudate Wound Culture - Final Staphylococcus aureus 09/30/24 04:43 Stool Stool Occult Blood (JOVANI) - Final Occult Blood Positive Physical Exam Const alert and no apparent distress Constitutional Narrative: Sitting in the recliner at the bedside. Engaged in conversation. I observed him eating his lunch and he is not coughing. He is feeding himself. Does not appear drowsy today. Did OT mostly in the WC......kept saying I'm done to the therapist. General Appearance: cooperative Resp Resp Narrative: Persistent coarse crackles in the left base posteriorly. No wheezing. Did not cough with deep breathing. Not tachypneic and no conversational dyspnea. Cardio regular rate, regular rhythm and no gallops Cardio Narrative: No ectopy today. GI normal to inspection, nondistended, normoactive bowel sounds, soft to palpation and non-tender GI Narrative: having some loose stool. No guarding with palpation. BS's are not hyperactive. Extremity no calf tenderness General Extremity: Negative for edema Skin Rashes: no rashes Wound Narrative: Small split in the skin over the distal coccyx.......will continue Calmoseptine. Assessment & Plan Assessment/Plan (1) Debility: (2) Acute ischemic right MCA stroke: (3) Left leg weakness: (4) Facial droop: (5) Cognitive dysfunction: (6) Paresthesias: (7) Inferior pubic ramus fracture: QUALIFIERS: Encounter type: initial encounter Fracture type: closed Laterality: left Qualified Code(s): S32.592A - Other specified fracture of left pubis, initial encounter for closed fracture (8) Pain aggravated by physical activity: (9) Hypophosphatemia: (10) GERD (gastroesophageal reflux disease): QUALIFIERS: Esophagitis presence: without esophagitis Qualified Code(s): K21.9 - Gastro-esophageal reflux disease without esophagitis (11) Esophageal stenosis: (12) History of esophageal dilatation: (13) Dyslipidemia: (14) BPH (benign prostatic hyperplasia): QUALIFIERS: Lower urinary tract symptom presence: unspecified whether lower urinary tract symptoms present Qualified Code(s): N40.0 - Benign prostatic hyperplasia without lower urinary tract symptoms (15) Essential (primary) hypertension: (16) Hypoxemia associated with sleep: (17) Acute bronchitis: QUALIFIERS: Bronchitis organism: unspecified organism Qualified Code(s): J20.9 - Acute bronchitis, unspecified (18) Conjunctivitis: QUALIFIERS: Conjunctivitis type: acute Acute conjunctivitis type:bacterial Laterality: left Qualified Code(s): H10.32 - Unspecified acute conjunctivitis, left eye (19) Dementia with behavioral disturbance: (20) Productive cough: (21) Oropharyngeal dysphagia: (22) Aspiration into trachea: (23) Eosinophilia, unspecified: QUALIFIERS: Eosinophilia type: unspecified eosinophilia QualifiedCode(s): D72.10 - Eosinophilia, unspecified PLAN: not sure what is causing this but, the absolute eosinophil count is only 1,123 and he has no rash and no pruritus so no need for further work up at this time. PLAN: Plan 1. Continue therapy. 2. Not sure how much more progress he is going to be able to make on rehab. Heis now sleeping at night and pain is adequately controlled. Cough is very rare now since ST changed his diet. ? whether family is going to be able to provide enough supervision to Zane and his (also recently discharged from the hospital) - Zane needs 24/7 supervision. D/W SW and she is going to reach out tohis dtr todiscusanderson DC. He has increased pain after therapy/wt bearing but, he needs to keep moving to prevent muscle atrophy and frozen joints. 3. Continue the current drug regimen. 4. No further W/U for increase in eosinophil % since he is asymptomatic and theabsolute eosinophil count is less than 1,500. Charges/Coding Visit Charges Inpatient E&M: 67376 Subs Hosp L1 10/10/24 1459 Shay Gaxiola DO Cosigner Signature (if applicable): CC: ~ Signed [facility]06-03-2025 Progress note Author Shay Gaxiola [facility] Note Date/Time October 08, 2024 12:47 pm [facility] Medical Records Department [address] [place] [address] Progress Note 10/08/24 1054 MR#: [id number] Acct: [id number] Name: AYESHA JACOBSEN Rep #:[id number] : 1935 89 From: Shay Gaxiola DO PCP: Dr. Nimisha Oseguera MD Status:ADM I N Location: [place] [address] Subjective Subjective Afebrile VSS - Maintaining appropriate oxygen saturation on RA Oral intake - FOOD good FLUIDS fluid intake yesterday was 1590. Discussed with nursing - Restless last night and did not sleep well. Setting off the bed alarms. Trying to get out of bed. Reviewed the THERAPY notes Medication list reviewed. Mag is 1.8 today and the phos is 3.1. He is sleepy today and keeps nodding off. Not able to finish his thoughts with me when we are talking and then just mumbles. Told me that he dreamed he jumpedout of a plane last night. D/W OT/PT. More confused with them today. When we ask about pain he is not able to give an answer that makes any sense. He is notaggressive or agitated. Does not appear to be in any pain sitting in the recliner. He seems to have a few good nights and then he gets restless again atnight. Objective Data Objective Data Vital Signs: Vital Signs Temp Pulse Resp BP Pulse Ox O2 Del Method O2 Flow Rate 98.2 F 93 16 156/69 H 94 Room Air 2 10/08/24 06:00 10/08/24 07:50 10/08/24 07:09 10/08/24 06:00 10/08/24 07:09 10/08/24 09:22 10/08/24 07:09 FiO2 21 09/28/24 21:15 Oxygen Flow Rate (L/min) 2 Oxygen Delivery Method Room Air Weight: 140 lb Body Mass Index (BMI) 27.4 Intake & Output: Intake and Output for Last 24 Hours 10/06/24 10/07/24 10/08/24 23:59 23:59 23:59 Intake Total 800 / 800 1590 / 1590 510 / 510 Output Total 750 / 750 530 / 530 170 / 170 Balance 50 / 50 1060 / 1060 340 / 340 Lab / Micro Data 10/02/24 05:06 10/02/24 05:06 Labs: Laboratory Results - last 24 hr 10/08/24 07:07: Phosphorus 3.1, Magnesium 1.8 Micro: Microbiology 09/29/24 09:12 Exudate Gram Stain - Final 09/29/24 09:12 Exudate Wound Culture - Final Staphylococcus aureus 09/30/24 04:43 Stool Stool Occult Blood (JOVANI) - Final Occult Blood Positive Assessment & Plan Assessment/Plan (1) Debility: (2) Acute ischemic right MCA stroke: (3) Left leg weakness: (4) Facial droop: (5) Cognitive dysfunction: (6) Paresthesias: (7) Inferior pubic ramus fracture: QUALIFIERS: Encounter type: initial encounter Fracture type: closed Laterality: left Qualified Code(s): S32.592A - Other specified fracture of left pubis, initial encounter for closed fracture (8) Pain aggravated by physical activity: (9) Hypophosphatemia: (10) GERD (gastroesophageal reflux disease): QUALIFIERS: Esophagitis presence: without esophagitis Qualified Code(s): K21.9 - Gastro-esophageal reflux disease without esophagitis (11) Esophageal stenosis: (12) History of esophageal dilatation: (13) Dyslipidemia: (14) BPH (benign prostatic hyperplasia): QUALIFIERS: Lower urinary tract symptom presence: unspecified whether lower urinary tract symptoms present Qualified Code(s): N40.0 - Benign prostatic hyperplasia without lower urinary tract symptoms (15) Essential (primary) hypertension: (16) Hypoxemia associated with sleep: (17) Acute bronchitis: QUALIFIERS: Bronchitis organism: unspecified organism Qualified Code(s): J20.9 - Acute bronchitis, unspecified (18) Conjunctivitis: QUALIFIERS: Conjunctivitis type: acute Acute conjunctivitis type:bacterial Laterality: left Qualified Code(s): H10.32 - Unspecified acute conjunctivitis, left eye (19) Dementia with behavioral disturbance: (20) Productive cough: (21) Oropharyngeal dysphagia: (22) Aspiration into trachea: PLAN: Plan 1. Continue therapy 2. Add magnesium chloride to the current drug regimen and maintain the magnesium around 2. 3. CBC and BMP ordered for . 4. Add Melatonin 3 mg at HS tonight. 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 I suspect he will do better at home in familiar surroundings. The Seroquel may be causing nightmares but the incidence of agitation and restlessness is fairly low with Seroquel. Drowsiness is more common. Charges/Coding Visit Charges Inpatient E&M: 62328 Subs Hosp L1 10/08/24 1247 <Electronically signed by Shay Gaxiola DO> Shay Gaxiola DO Cosigner Signature (if applicable): CC: ~ Signed [facility] Work Phone: 1(971) 495-261206-03-2025 Progress note [facility] Medical Records Department [address] [place] [address] Progress Note 10/08/24 1054 MR#: [id number] Acct: [id number] Name: AYESHA JACOBSEN Rep #:[id number] : 1935 89 From: Shay Gaxiola DO PCP: Dr. Nimisha Oseguera MD Status:ADM I N Location: [place] [address] Subjective Subjective Afebrile VSS - Maintaining appropriate oxygen saturation on RA Oral intake - FOOD good FLUIDS fluid intake yesterday was 1590. Discussed with nursing - Restless last night and did not sleep well. Setting off the bed alarms. Trying to get out of bed. Reviewed the THERAPY notes Medication list reviewed. Mag is 1.8 today and the phos is 3.1. He is sleepy today and keeps nodding off. Not able to finish his thoughts with me when we are talking and then just mumbles. Told me that he dreamed he jumpedout of a plane last night. D/W OT/PT. More confused with them today. When we ask about pain he is not able to give an answer that makes any sense. He is notaggressive or agitated. Does not appear to be in any pain sitting in the recliner. Heseems to have a few good nights and then he gets restless again atnight. Objective Data Objective Data Vital Signs: Vital Signs Temp Pulse Resp BP Pulse Ox O2 Del Method O2 Flow Rate 98.2 F 93 16 156/69 H 94 Room Air 2 10/08/24 06:00 10/08/24 07:50 10/08/24 07:09 10/08/24 06:00 10/08/24 07:09 10/08/24 09:22 10/08/24 07:09 FiO2 21 09/28/24 21:15 Oxygen Flow Rate (L/min) 2 Oxygen Delivery Method Room Air Weight: 140 lb Body Mass Index (BMI) 27.4 Intake & Output: Intake and Output for Last 24 Hours 10/06/24 10/07/24 10/08/24 23:59 23:59 23:59 Intake Total 800 / 800 1590 / 1590 510 / 510 Output Total 750 / 750 530 / 530 170 / 170 Balance 50 / 50 1060 / 1060 340 / 340 Lab / Micro Data 10/02/24 05:06 10/02/24 05:06 Labs: Laboratory Results - last 24 hr 10/08/24 07:07: Phosphorus 3.1, Magnesium 1.8 Micro: Microbiology 09/29/24 09:12 Exudate Gram Stain - Final 09/29/24 09:12 Exudate Wound Culture - Final Staphylococcus aureus 09/30/24 04:43 Stool Stool Occult Blood (JOVANI) - Final Occult Blood Positive Assessment & Plan Assessment/Plan (1) Debility: (2) Acute ischemic right MCA stroke: (3) Left leg weakness: (4) Facial droop: (5) Cognitive dysfunction: (6) Paresthesias: (7) Inferior pubic ramus fracture: QUALIFIERS: Encounter type: initial encounter Fracture type: closed Laterality: left Qualified Code(s): S32.592A - Other specified fracture of left pubis, initial encounter for closed fracture (8) Pain aggravated by physical activity: (9) Hypophosphatemia: (10) GERD (gastroesophageal reflux disease): QUALIFIERS: Esophagitis presence: without esophagitis Qualified Code(s): K21.9 - Gastro-esophageal reflux disease without esophagitis (11) Esophageal stenosis: (12) History of esophageal dilatation: (13) Dyslipidemia: (14) BPH (benign prostatic hyperplasia): QUALIFIERS: Lower urinary tract symptom presence: unspecified whether lower urinary tract symptoms present Qualified Code(s): N40.0 - Benign prostatic hyperplasia without lower urinary tract symptoms (15) Essential (primary) hypertension: (16) Hypoxemia associated with sleep: (17) Acute bronchitis: QUALIFIERS: Bronchitis organism: unspecified organism Qualified Code(s): J20.9 - Acute bronchitis, unspecified (18) Conjunctivitis: QUALIFIERS: Conjunctivitis type: acute Acute conjunctivitis type:bacterial Laterality: left Qualified Code(s): H10.32 - Unspecified acute conjunctivitis, left eye (19) Dementia with behavioral disturbance: (20) Productive cough: (21) Oropharyngeal dysphagia: (22) Aspiration into trachea: PLAN: Plan 1. Continue therapy 2. Add magnesium chloride to the current drug regimen and maintain the magnesium around 2. 3. CBC and BMP ordered for . 4. Add Melatonin 3 mg at HS tonight. 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 I suspect he will do better at home in familiar surroundings. The Seroquel may be causing nightmares but the incidence of agitation and restlessness is fairly low with Seroquel. Drowsiness is more common. Charges/Coding Visit Charges Inpatient E&M: 94001 Subs Hosp L1 10/08/24 1247 Shay Valverdeign Signature (if applicable): CC: ~ Signed [facility]06-02-2025 Progress note Author Shay Gaxiola [facility] Note Date/Time October 07, 2024 1:18p m [facility] Medical Records Department [address] [place] [address] Progress Note 10/07/24 1154 MR#: [id number] Acct: [id number] Name: AYESHA JACOBSEN Rep #:[id number] : 1935 89 From: Shay Gaxiola DO PCP: Dr. Nimisha Oseguera MD Status:ADM I N Location: [place] [address] Subjective Subjective Zane was seen on team rounds today. His dtr was present in the room. All questions were answered. Afebrile VSS -blood pressure over the weekend has ranged from 108/75 to 152/65 (this is an outlier. All other BP's have been at goal.) Maintaining appropriate oxygen saturation on RA Oral intake - FOOD good FLUIDS erratic. Ranges from poor to good. Discussed with nursing - no problems that need addressed. Continent during the day for the most part. Occasional incontinence of urine at night. Reviewed the THERAPY notes Medication list reviewed. Zane has been c/o nightmares....sometimes they are scary but, he knows they are not real. He denies cephalgia, lightheadedness, shortness of breath, chest pain, palpitations, nausea/vomiting/abdominal pain, dysuria and calf tenderness. He is more impulsive at night than during the day. Pain is more tolerable than last week and he did better with therapy today. Cough has improved significantly since the changes to diet were made. Objective Data Objective Data Vital Signs: Vital Signs Temp Pulse Resp BP Pulse Ox O2 Del Method O2 Flow Rate 98.1 F 79 18 120/62 95 Room Air 2 10/07/24 05:22 10/07/24 07:49 10/07/24 05:22 10/07/24 07:49 10/07/24 05:22 10/07/24 10:00 10/07/24 05:22 FiO2 21 09/28/24 21:15 Oxygen Flow Rate (L/min) 2 Oxygen Delivery Method Room Air Weight: 140 lb Body Mass Index (BMI) 27.4 Intake & Output: Intake and Output for Last 24 Hours 10/05/24 10/06/24 10/07/24 23:59 23:59 23:59 Intake Total 1125 / 1125 800 / 800 550 / 550 Output Total 510 / 510 750 / 750 350 / 350 Balance 615 / 615 50 / 50 200 / 200 Lab / Micro Data 10/02/24 05:06 10/02/24 05:06 Micro: Microbiology 09/29/24 09:12 Exudate Gram Stain - Final 09/29/24 09:12 Exudate Wound Culture - Final Staphylococcus aureus 09/30/24 04:43 Stool Stool Occult Blood (JOVANI) - Final Occult Blood Positive Physical Exam Const alert and no apparent distress Constitutional Narrative: Sitting in the recliner at the bedside. Engaged in conversation. General Appearance: cooperative Resp Resp Narrative: Persistent coarse crackles in the left base posteriorly. No wheezing. Did not cough with deep breathing. Not tachypneic and no conversational dyspnea. Cardio regular rate, regular rhythm and no gallops Cardio Narrative: No ectopy today. GI normal to inspection, nondistended, normoactive bowel sounds, soft to palpation and non-tender GI Narrative: having some loose stool. No guarding with palpation. BS's are not hyperactive. Extremity no calf tenderness General Extremity: Negative for edema Skin Rashes: no rashes Psych Psych Narrative: Impulsive at night. During the day he is using his call light. Has been very cooperative with everyone and always pleasant with no agitation since the Seroquel was added to the drug regimen. sleeping well at night now. Assessment & Plan Assessment/Plan (1) Debility: (2) Acute ischemic right MCA stroke: (3) Left leg weakness: (4) Facial droop: (5) Cognitive dysfunction: (6) Paresthesias: (7) Inferior pubic ramus fracture: QUALIFIERS: Encounter type: initial encounter Fracture type: closed Laterality: left Qualified Code(s): S32.592A - Other specified fracture of left pubis, initial encounter for closed fracture (8) Pain aggravated by physical activity: (9) Hypophosphatemia: (10) GERD (gastroesophageal reflux disease): QUALIFIERS: Esophagitis presence: without esophagitis Qualified Code(s): K21.9 - Gastro-esophageal reflux disease without esophagitis (11) Esophageal stenosis: (12) History of esophageal dilatation: (13) Dyslipidemia: (14) BPH (benign prostatic hyperplasia): QUALIFIERS: Lower urinary tract symptom presence: unspecified whether lower urinary tract symptoms present Qualified Code(s): N40.0 - Benign prostatic hyperplasia without lower urinary tract symptoms (15) Essential (primary) hypertension: (16) Hypoxemia associated with sleep: (17) Acute bronchitis: QUALIFIERS: Bronchitis organism: unspecified organism Qualified Code(s): J20.9 - Acute bronchitis, unspecified (18) Conjunctivitis: QUALIFIERS: Conjunctivitis type: acute Acute conjunctivitis type:bacterial Laterality: left Qualified Code(s): H10.32 - Unspecified acute conjunctivitis, left eye (19) Dementia with behavioral disturbance: (20) Productive cough: (21) Oropharyngeal dysphagia: (22) Aspiration into trachea: PLAN: Plan 1. Continue therapy 2. He has been getting Tramadol 50 mg at HS and 37.5 mg of Seroquel. He is sleeping well now but, having nightmares. It may be due to the drug interactionbetween Tramadol and Seroquel. Will change the Tramadol to 25 mg at 6 AM, noon and 6 PM. No Tramadol at HS. Continue Seroquel 37.5 mg at HS. 3. Pain is adequately controlled at this time. 4. Family is going to arrange for 24/7 care at home. His just got out of the hospital yesterday. She is not able to care for Zane. 5. [place] need continued therapy at [place]? 6. Decrease senna to 1 tablet twice daily. Charges/Coding Visit Charges Inpatient E&M: 49923 Subs Hosp L2 10/07/24 1318 <Electronically signed by Shay Gaxiola DO> Shay Gaxiola DO Cosigner Signature (if applicable): CC: ~ Signed [facility] Work Phone: 1(703) 932-148706-02-2025 Progress note [facility] Medical Records Department [address] [place] [address] Progress Note 10/07/24 1154 MR#: [id number] Acct: [id number] Name: AYESHA JACOBSEN Rep #:[id number] : 1935 89 From: Shay Gaxiola DO PCP: Dr. Nimisha Oseguera MD Status:ADM I N Location: [place] [address] Subjective Subjective Zane was seen on team rounds today. His dtr was present in the room. All questions were answered. Afebrile VSS -blood pressure over the weekend has ranged from 108/75 to 152/65 (this is an outlier. All other BP's have been at goal.) Maintaining appropriate oxygen saturation on RA Oral intake - FOOD good FLUIDS erratic. Ranges from poor to good. Discussed with nursing - no problems that need addressed. Continent during the day for the most part. Occasional incontinence of urine at night. Reviewed the THERAPY notes Medication list reviewed. Zane has been c/o nightmares....sometimes they are scary but, he knows they are not real. He denies cephalgia, lightheadedness, shortness of breath, chest pain, palpitations, nausea/vomiting/abdominalpain, dysuria and calf tenderness. He is more impulsive at night than during the day. Pain is more tolerable than last week and he did better with therapy today. Cough has improved significantly since the changes to diet were made. Objective Data Objective Data Vital Signs: Vital Signs Temp Pulse Resp BP Pulse Ox O2 Del Method O2 Flow Rate 98.1 F 79 18 120/62 95 Room Air 2 10/07/24 05:22 10/07/24 07:49 10/07/24 05:22 10/07/24 07:49 10/07/24 05:22 10/07/24 10:00 10/07/24 05:22 FiO2 21 09/28/24 21:15 Oxygen Flow Rate (L/min) 2 Oxygen Delivery Method Room Air Weight: 140 lb Body Mass Index (BMI) 27.4 Intake & Output: Intake and Output for Last 24 Hours 10/05/24 10/06/24 10/07/24 23:59 23:59 23:59 Intake Total 1125 / 1125 800 / 800 550 / 550 Output Total 510 / 510 750 / 750 350 / 350 Balance 615 / 615 50 / 50 200 / 200 Lab / Micro Data 10/02/24 05:06 10/02/24 05:06 Micro: Microbiology 09/29/24 09:12 Exudate Gram Stain - Final 09/29/24 09:12 Exudate Wound Culture - Final Staphylococcus aureus 09/30/24 04:43 Stool Stool Occult Blood (JOVANI) - Final Occult Blood Positive Physical Exam Const alert and no apparent distress Constitutional Narrative: Sitting in the recliner at the bedside. Engaged in conversation. General Appearance: cooperative Resp Resp Narrative: Persistent coarse crackles in the left base posteriorly. No wheezing. Did not cough with deep breathing. Not tachypneic and no conversational dyspnea. Cardio regular rate, regular rhythm and no gallops Cardio Narrative: No ectopy today. GI normal to inspection, nondistended, normoactive bowel sounds, soft to palpation and non-tender GI Narrative: having some loose stool. No guarding with palpation. BS's are not hyperactive. Extremity no calf tenderness General Extremity: Negative for edema Skin Rashes: no rashes Psych Psych Narrative: Impulsive at night. During the day he is using his call light. Has been very cooperative with everyone and always pleasant with no agitation since the Seroquel was added to the drug regimen. sleepingwell at night now. Assessment & Plan Assessment/Plan (1) Debility: (2) Acute ischemic right MCA stroke: (3) Left leg weakness: (4) Facial droop: (5) Cognitive dysfunction: (6) Paresthesias: (7) Inferior pubic ramus fracture: QUALIFIERS: Encounter type: initial encounter Fracture type: closed Laterality: left Qualified Code(s): S32.592A - Other specified fracture of left pubis, initial encounter for closed fracture (8) Pain aggravated by physical activity: (9) Hypophosphatemia: (10) GERD (gastroesophageal reflux disease): QUALIFIERS: Esophagitis presence: without esophagitis Qualified Code(s): K21.9 - Gastro-esophageal reflux disease without esophagitis (11) Esophageal stenosis: (12) History of esophageal dilatation: (13) Dyslipidemia: (14) BPH (benign prostatic hyperplasia): QUALIFIERS: Lower urinary tract symptom presence: unspecified whether lower urinary tract symptoms present Qualified Code(s): N40.0 - Benign prostatic hyperplasia without lower urinary tract symptoms (15) Essential (primary) hypertension: (16) Hypoxemia associated with sleep: (17) Acute bronchitis: QUALIFIERS: Bronchitis organism: unspecified organism Qualified Code(s): J20.9 - Acute bronchitis, unspecified (18) Conjunctivitis: QUALIFIERS: Conjunctivitis type: acute Acute conjunctivitis type:bacterial Laterality: left Qualified Code(s): H10.32 - Unspecified acute conjunctivitis, left eye (19) Dementia with behavioral disturbance: (20) Productive cough: (21) Oropharyngeal dysphagia: (22) Aspiration into trachea: PLAN: Plan 1. Continue therapy 2. He has been getting Tramadol 50 mg at HS and 37.5 mg of Seroquel. He is sleeping well now but, having nightmares. It may be due to the drug interactionbetween Tramadol and Seroquel. Will change the Tramadol to 25 mg at 6 AM, noon and 6 PM. No Tramadol at HS. Continue Seroquel 37.5 mg at HS. 3. Pain is adequately controlled at this time. 4. Family is going to arrange for 28/11 care at home. His just got out of the hospital yesterday. She is not able to care for Zane. 5. Will need continued therapy at [place]? 6. Decrease senna to 1 tablet twice daily. Charges/Coding Visit Charges Inpatient E&M: 02987 Subs Hosp L2 10/07/24 1318 Shay Gaxiola DO Cosigner Signature (if applicable): CC: ~ Signed [facility]05-30-2025 Progress note Author Shay Calvovicky [facility] Note Date/Time October 04, 2024 11:20 am [facility] Medical Records Department [address] [place] [address] Progress Note 10/03/24 1151 MR#: [id number] Acct: [id number] Name: AYESHA JACOBSEN Rep #:[id number] : 1935 89 From: Shay Gaxiola DO PCP: Dr. Nimisha Oseguera MD Status:ADM I N Location: [place] [address] Subjective Subjective Afebrile VSS - Maintaining appropriate oxygen saturation on RA Oral intake - FOOD good FLUIDS improving. Discussed with nursing - slept well last night. More alert for therapy today. Reviewed the THERAPY notes Medication list reviewed. Taking acetaminophen 1 g every 8 hours and tramadol 3 times daily for pain control. Pain is getting better and he is able to do more with therapy. Denies CP, SOB, cough, N/V/abd pain, dysuria and calf tenderness. Denies pruritus I reviewed the results of the MBS. He has moderate oropharyngeal dysphagia withaspiration of thin liquids and delayed cough. Needs a lot of cueing to utilize the different strategies to improve swallowing. All recent lab was personally reviewed. Hemoglobin is 12.0, down from 13.3 on 09/26/2024. I suspect this may be related to better hydration. White blood cellcount is now normal at 10.7 with 52.5 neutrophils and 1.7% immature granulocytes. Eosinophils are increased at 11.5%. Platelets are within normal limits now. Sodium and potassium are within normal limits. The BUN is 28 with a creatinine of 1.06 which is stable. Free T4 and free T3 are both within normal limits. Objective Data Objective Data Vital Signs: Vital Signs Temp Pulse Resp BP Pulse Ox O2 Del Method O2 Flow Rate 98.3 F 66 16 126/71 H 95 Nasal Cannula 2 10/03/24 06:00 10/03/24 09:17 10/03/24 06:00 10/03/24 06:00 10/03/24 06:00 10/03/24 06:00 10/03/24 06:00 FiO2 21 09/28/24 21:15 Oxygen Flow Rate (L/min) 2 Oxygen Delivery Method Nasal Cannula Weight: 140 lb Body Mass Index (BMI) 27.4 Intake & Output: Intake and Output for Last 24 Hours 10/01/24 10/02/24 10/03/24 23:59 23:59 23:59 Intake Total 820 / 1020 1160 / 1160 590 / 590 Output Total 700 / 1100 700 / 700 200 / 200 Balance 120 / -80 460 / 460 390 / 390 Lab / Micro Data 10/02/24 05:06 10/02/24 05:06 Micro: Microbiology 09/29/24 09:12 Exudate Gram Stain - Final 09/29/24 09:12 Exudate Wound Culture - Final Staphylococcus aureus 09/30/24 04:43 Stool Stool Occult Blood (JOVANI) - Final Occult Blood Positive Physical Exam Const General Appearance: cooperative HEENT HEENT Narrative: Less periorbital swelling Left eye and less injection of the conjunctiva. Denies pain and also dies itching today. No purulent DC observed. Resp Resp Narrative: Persistent coarse crackles in the Left base. No wheezing. No conversational dyspnea. Not coughing today. Cardio regular rate and regular rhythm GI normal to inspection, nondistended, normoactive bowel sounds, soft to palpation and non-tender Extremity no calf tenderness General Extremity: Negative for edema Assessment & Plan Assessment/Plan (1) Debility: (2) Acute ischemic right MCA stroke: (3) Left leg weakness: (4) Facial droop: (5) Cognitive dysfunction: PLAN: Chronic.....most likely due to dementia. Exacerbated by CVA. (6) Paresthesias: (7) Inferior pubic ramus fracture: QUALIFIERS: Encounter type: initial encounter Fracture type: closed Laterality: left Qualified Code(s): S32.592A - Other specified fracture of left pubis, initial encounter for closed fracture (8) Pain aggravated by physical activity: (9) Hypophosphatemia: (10) GERD (gastroesophageal reflux disease): QUALIFIERS: Esophagitis presence: without esophagitis Qualified Code(s): K21.9 - Gastro-esophageal reflux disease without esophagitis (11) Esophageal stenosis: (12) History of esophageal dilatation: (13) Dyslipidemia: (14) BPH (benign prostatic hyperplasia): QUALIFIERS: Lower urinary tract symptom presence: unspecified whether lower urinary tract symptoms present Qualified Code(s): N40.0 - Benign prostatic hyperplasia without lower urinary tract symptoms (15) Essential (primary) hypertension: (16) Hypoxemia associated with sleep: (17) Acute bronchitis: QUALIFIERS: Bronchitis organism: unspecified organism Qualified Code(s): J20.9 - Acute bronchitis, unspecified PLAN: Suspect due to moderate oropharyngeal dysphagia with aspiration of thin liquids (18) Conjunctivitis: QUALIFIERS: Conjunctivitis type: acute Acute conjunctivitis type:bacterial Laterality: left Qualified Code(s): H10.32 - Unspecified acute conjunctivitis, left eye PLAN: Due to Staph aureus, methicillin sensitive. (19) Dementia with behavioral disturbance: PLAN: Suspect Alzheimer's, fairly advanced. Will have him follow-up with neurology. (20) Productive cough: (21) Oropharyngeal dysphagia: PLAN: Moderate with aspiration of thin liquids (22) Aspiration into trachea: PLAN: Plan 1. Continue therapy 2. I suspect dementia is fairly well advanced and is contributing to dysphagia. [place] refer to [place].......may benefit from tx. 3. Continue Seroquel at 37.5 mg at HS for dementia with behavior abnormality. 4. DC the doxycycline.........this is the newest drug and the most likely to becausing the eosinophilia. Recek a CBC with diff in a few days. Monitor closelyfor rash/pruritus/wheezing. Charges/Coding Visit Charges Inpatient E&M: 10849 Subs Hosp L1 10/04/24 1119 <Electronically signed by Shay Gaxiola DO> Shay Gaxiola DO Cosigner Signature (if applicable): CC: ~ Signed ADDENDUM by Dr. Shay Gaxiola DO on 10/04/24 at 1120 Addendum Patient has Hemoccult positive stool. Will continue pantoprazole. 10/04/24 1120 <Electronically signed by Shay perry DO> Date _ Shay Gaxiola DO Cosigner Signature (if applicable): Date cc: ~* Signed [facility] Work Phone: 1(203) 839-603905-30-2025 Progress note [facility] Medical Records Department [address] [facility] [place] [address] Progress Note 10/03/24 1151 MR#: [id number] Acct: [id number] Name: AYESHA JACOBSEN Rep #:[id number] : 1935 89 From: Shay Gaxiola DO PCP: Dr. Nimisha Oseguera MD Status:ADM I N Location: [place] [address] Subjective Subjective Afebrile VSS - Maintaining appropriate oxygen saturation on RA Oral intake - FOOD good FLUIDS improving. Discussed with nursing - slept well last night. More alert for therapy today. Reviewed the THERAPY notes Medication list reviewed. Taking acetaminophen 1 g every 8 hours and tramadol 3 times daily for pain control. Pain is getting better and he is able to do more with therapy. Denies CP, SOB, cough, N/V/abd pain, dysuria and calf tenderness. Denies pruritus I reviewed the results of the MBS. He has moderate oropharyngeal dysphagia withaspiration of thin liquids and delayed cough. Needs a lot of cueing to utilize the different strategies to improve swallowing. All recent lab was personally reviewed. Hemoglobin is 12.0, down from 13.3 on 09/26/2024. I suspect this may be related to better hydration. White blood cellcount is now normal at 10.7 with 52.5 neutrophils and 1.7% immature granulocytes. Eosinophils are increased at 11.5%. Platelets are within normal limits now. Sodium and potassium are within normal limits. The BUN is 28 with a creatinine of 1.06 which is stable. Free T4 and free T3 are both within normal limits. Objective Data Objective Data Vital Signs: Vital Signs Temp Pulse Resp BP Pulse Ox O2 Del Method O2 Flow Rate 98.3 F 66 16 126/71 H 95 Nasal Cannula 2 10/03/24 06:00 10/03/24 09:17 10/03/24 06:00 10/03/24 06:00 10/03/24 06:00 10/03/24 06:00 10/03/24 06:00 FiO2 21 09/28/24 21:15 Oxygen Flow Rate (L/min) 2 Oxygen Delivery Method Nasal Cannula Weight: 140 lb Body Mass Index (BMI) 27.4 Intake & Output: Intake and Output for Last 24 Hours 10/01/24 10/02/24 10/03/24 23:59 23:59 23:59 Intake Total 820 / 1020 1160 / 1160 590 / 590 Output Total 700 / 1100 700 / 700 200 / 200 Balance 120 / -80 460 / 460 390 / 390 Lab / Micro Data 10/02/24 05:06 10/02/24 05:06 Micro: Microbiology 09/29/24 09:12 Exudate Gram Stain - Final 09/29/24 09:12 Exudate Wound Culture - Final Staphylococcus aureus 09/30/24 04:43 Stool Stool Occult Blood (JOVANI) - Final Occult Blood Positive Physical Exam Const General Appearance: cooperative HEENT HEENT Narrative: Less periorbital swelling Left eye and less injection of the conjunctiva. Denies pain and also diesitching today. No purulent DC observed. Resp Resp Narrative: Persistent coarse crackles in the Left base. No wheezing. No conversational dyspnea. Not coughing today. Cardio regular rate and regular rhythm GI normal to inspection, nondistended, normoactive bowel sounds, soft to palpation and non-tender Extremity no calf tenderness General Extremity: Negative for edema Assessment & Plan Assessment/Plan (1) Debility: (2) Acute ischemic right MCA stroke: (3) Left leg weakness: (4) Facial droop: (5) Cognitive dysfunction: PLAN: Chronic.....most likely due to dementia. Exacerbated by CVA. (6) Paresthesias: (7) Inferior pubic ramus fracture: QUALIFIERS: Encounter type: initial encounter Fracture type: closed Laterality: left Qualified Code(s): S32.592A - Other specified fracture of left pubis, initial encounter for closed fracture (8) Pain aggravated by physical activity: (9) Hypophosphatemia: (10) GERD (gastroesophageal reflux disease): QUALIFIERS: Esophagitis presence: without esophagitis Qualified Code(s): K21.9 - Gastro-esophageal reflux disease without esophagitis (11) Esophageal stenosis: (12) History of esophageal dilatation: (13) Dyslipidemia: (14) BPH (benign prostatic hyperplasia): QUALIFIERS: Lower urinary tract symptom presence: unspecified whether lower urinary tract symptoms present Qualified Code(s): N40.0 - Benign prostatic hyperplasia without lower urinary tract symptoms (15) Essential (primary) hypertension: (16) Hypoxemia associated with sleep: (17) Acute bronchitis: QUALIFIERS: Bronchitis organism: unspecified organism Qualified Code(s): J20.9 - Acute bronchitis, unspecified PLAN: Suspect due to moderate oropharyngeal dysphagia with aspiration of thin liquids (18) Conjunctivitis: QUALIFIERS: Conjunctivitis type: acute Acute conjunctivitis type:bacterial Laterality: left Qualified Code(s): H10.32 - Unspecified acute conjunctivitis, left eye PLAN: Due to Staph aureus, methicillin sensitive. (19) Dementia with behavioral disturbance: PLAN: Suspect Alzheimer's, fairly advanced. Will have him follow-up with neurology. (20) Productive cough: (21) Oropharyngeal dysphagia: PLAN: Moderate with aspiration of thin liquids (22) Aspiration into trachea: PLAN: Plan 1. Continue therapy 2. I suspect dementia is fairly well advanced and is contributing to dysphagia. [place] refer to neurology [place].......may benefit from tx. 3. Continue Seroquel at 37.5 mg at HS for dementia with behavior abnormality. 4. DC the doxycycline.........this is the newest drug and the most likely to becausing the eosinophilia. Recek a CBC with diff in a few days. Monitor closelyfor rash/pruritus/wheezing. Charges/Coding Visit Charges Inpatient E&M: 01474 Subs Hosp L1 10/04/24 1119 [facility] applicable): CC: ~ Signed ADDENDUM by Dr. Shay Gaxiola DO on 10/04/24 at 1120 Addendum Patient has Hemoccult positive stool. Will continue pantoprazole. 10/04/24 1120 ti DO> Date _ Shay Gaxiola DO Cosigner Signature (if applicable): Date cc: ~* Signed [facility]05-28-2025 History and physical note Author Shay Gaxiola [facility] Note Date/Time October 02, 2024 11:40 am [facility] Medical Records Department [address] [place] [address] Post Admission Physician Nora 09/28/24 1151 MR#: [id number] Acct: [id number] Name: AYESHA JACOBSEN Rep #:[id number] : 1935 89 From: Shay Gaxiola DO PCP: Dr. Nimisha Oseguera MD Status:ADM I N Location: [place] [address] Admission Information Primary Diagnosis:: Post stroke debility/pelvic fracture Status Changes from Prescreening?: No changes Identified Actual Problem List:: Falls, Skin Intergrity, Pain, ALteration in Cmfrt, Cognitve Impr/Memory Loss, Depression, Alteration in Sleep, Alteration in Nutrition, Mobility Impaired, Self Care Deficit, Alteration/ Air Exchange, FluidChange-Dehydration and Alteration-Leisure Activ. Potential Problem List:: DVT, Bleeding, Infection, UTI, Aspiration, Falls, Skin Integrity and Depression Risk of Complications DVT: DARYL Hose and - (Heparin 5000 units SQ every 12 hours) Bleeding: Monitor Lab Values, Nursing to Teach Precautions for anti-coagulation therapy., Wound, if applicable, to be assessed every shift. and Stroke patients assessed for lethargy or change in status. Infection: Clinical Staff to Monitor for S/S of infection: and S/S of infection include fever, redness, warmth, etc. Urinary Tract Infection: Monitor for frequency, burning, discomfort, or incontinence. and Nursing will obtain urine sample for urinalysis and C&S when ordered. Aspiration: Clinical staff will monitor for coughing, drooling, congestion., Speech will evaluate swallowing and dsyphasia. and Nursing will monitor patient swallowing during meals. Falls: Patient will be evaluated for Fall Precautions and Patient will be placedon Fall Precautions as indicated per protocol. Skin Breakdown: Nursing will assess skin daily using assessment tool. and Nursing will place on Skin Breakdown Precautions as indicated. Pain: Clinical staff will assess patient's pain level per protocol., Medicationswill be given, if needed, and the pain level reassessed. and Other methods: Massage, distraction, decrease stimulus, etc. used PRN. Plan of Care Patient requires physician specializing in physical medicine and rehab oversightto provide close medical supervision of rehab issues including: Pain Management,Sleep Problems, Bowel and Bladder, Medical and co-morbidity Management, DVT prophylaxis, Rehabilitation Leadership and Coordination of treatment team Patient needs Physical Therapy: For a minimum of 1 hour and At least 5 out of 7 days Patient needs Physical Therapy to improve:: Mobility, Strengthening, Transfers, Stretching, ROM, Endurance, Stairs, Gait and Balance Patient needs Occupational Therapy: For a minimum of 1 hour and At least 5 out of 7 days Patient needs Occupational Therapy to improve ADL's incl.: Eating, Grooming, Bathing, Dressing, Toileting, Toilet transfers, Community Reintegration, Higher functioning activities, Household tasks, Adaptive Equipment, Splinting and Otheractivities as determined Patient requires speech therapy: For a minimum of 1 hour and At least 5 out of 7days Patient requires speech therapy for: Swallowing, Cognition, Language Skills and Compensatory Strategies Patient requires 24/7 Rehabilitation Nursing for: Pain Issues, Identifying and preventing risk factors, Monitoring and reporting current medical conditions, Assisting with ambulation, transfer, and all ADL's, Teaching patients about disease process and medications, Family teaching, Providing safe environment, Bowel and Bladder Issues, Skin integrity and Medication Management Patient needs Patient Office Rep/ Case Management for: Discharge Planning, Arranging Home Equipment or Services and Family Interventions Patient needs Dietary and Nutrition Services for: Adequate Nutrition, Nutritional Supplements and Nutritional Education Goals Goals Patient will remain: free from falls Patient will perform eating at: MOD I level of assist. Patient will perform bed mobility at: MOD I level of assist. Patient will complete transfers from bed to chair at: MOD I level of assist. Patient will ambulate: - (150 feet with a front wheeled walker) Patient will complete upper body dressing at: MOD I level of assist. Patient will complete lower body dressing at: MOD I level of assist. (With adaptive equipment as necessary.) Patient will complete toilet transfer at: MOD I level of assist. Patient will complete toileting at: MOD I level of assist. Patient will perform bathing at: MOD I level of assist. (Using adaptive equipment as needed for lower body bathing) Patient will perform Tub/Shower transfer at: - (Min assist) Patient will complete grooming at: MOD I level of assist. Patient will achieve: - (4 steps with 1 HR) Patient will have pain level of: of 3 or less Patient's skin will: remain intact Patient will receive: adequate nutrition. Discharge Planning Pt Prognosis for Sig. Practical Improv. w/in Reasonable Time: Good Estimated Length of stay (days): 21 Anticipated D/C Destination: Home with Home Health Was Preadmission Assessment Accurate?: Yes 10/02/24 1140 <Electronically signed by Shay Gaxiola DO> Cosigner Signature (if applicable): CC: ~ Signed [facility] Work Phone: 1(812) 112-129605-28-2025 History and physical note [facility] Medical Records Department [address] [place] [id number] Post Admission Physician Nora 09/28/24 1151 MR#: [id number] Acct: [id number] Name: SHIREENANNAYESHA Desiree Rep #:[id number] : 1935 89 From: Shay Gaxiola DO PCP: Dr. Nimisha Oseguera MD Status:ADM I N Location: [place] [address] Admission Information Primary Diagnosis:: Post stroke debility/pelvic fracture Status Changes from Prescreening?: No changes Identified Actual Problem List:: Falls, Skin Intergrity, Pain, ALteration in Cmfrt, Cognitve Impr/Memory Loss,Depression, Alteration in Sleep, Alteration in Nutrition, Mobility Impaired, Self Care Deficit, Alteration/ Air Exchange, FluidChange-Dehydration and Alteration-Leisure Activ. Potential Problem List:: DVT, Bleeding, Infection, UTI, Aspiration, Falls, Skin Integrity and Depression Risk of Complications DVT: DARYL Hose and - (Heparin 5000 units SQ every 12 hours) Bleeding: Monitor Lab Values, Nursing to Teach Precautions for anti-coagulation therapy., Wound, ifapplicable, to be assessed every shift. and Stroke patients assessed for lethargy or change in status. Infection: Clinical Staff to Monitor for S/S of infection: and S/S of infection include fever, redness, warmth, etc. Urinary Tract Infection: Monitor for frequency, burning, discomfort, or incontinence. and Nursing will obtain urine sample for urinalysis and C&S when ordered. Aspiration: Clinical staff will monitor for coughing, drooling, congestion., Speech will evaluate swallowing and dsyphasia. and Nursing will monitor patient swallowing during meals. Falls: Patient will be evaluated for Fall Precautions and Patient will be placedon Fall Precautionsas indicated per protocol. Skin Breakdown: Nursing will assess skin daily using assessment tool. and Nursing will place on Skin Breakdown Precautions as indicated. Pain: Clinical staff will assess patient's pain level per protocol., Medicationswill be given, if needed, and the pain level reassessed. and Other methods: Massage, distraction, decrease stimulus, etc. used PRN. Plan of Care Patient requires physician specializing in physical medicine and rehab oversightto provide close medical supervision of rehab issues including: Pain Management,Sleep Problems, Bowel and Bladder, Medical and co-morbidity Management, DVT prophylaxis, Rehabilitation Leadership and Coordination of treat ment team Patient needs Physical Therapy: For a minimum of 1 hour and At least 5 out of 7 days Patient needs Physical Therapy to improve:: Mobility, Strengthening, Transfers, Stretching, ROM, Endurance, Stairs, Gait and Balance Patient needs Occupational Therapy: For a minimum of 1 hour and At least 5 out of 7 days Patient needs Occupational Therapy to improve ADL's incl.: Eating, Grooming, Bathing, Dressing, Toileting, Toilet transfers, Community Reintegration, Higher functioning activities, Household tasks, Adaptive Equipment, Splinting and Otheractivities as determined Patient requires speech therapy: For a minimum of 1 hour and At least 5 out of 7days Patient requires speech therapy for: Swallowing, Cognition, Language Skills and Compensatory Strategies Patient requires 24/7 Rehabilitation Nursing for: Pain Issues, Identifying and preventing risk factors, Monitoring and reporting current medical conditions, Assisting with ambulation, transfer, and all ADL's, Teaching patients about disease process and medications, Family teaching, Providing safe environment, Bowel and Bladder Issues, Skin integrity and Medication Management Patient needs Patient Office Rep/ Case Management for: Discharge Planning, Arranging Home Equipment orServices and Family Interventions Patient needs Dietary and Nutrition Services for: Adequate Nutrition, Nutritional Supplements and Nutritional Education Goals Goals Patient will remain: free from falls Patient will perform eating at: MOD I level of assist. Patient will perform bed mobility at: MOD I level of assist. Patient will complete transfers from bed to chair at: MOD I level of assist. Patient will ambulate: - (150 feet with a front wheeled walker) Patient will complete upper body dressing at: MOD I level of assist. Patient will complete lower body dressing at: MOD I level of assist. (With adaptive equipment as necessary.) Patient will complete toilet transfer at: MOD I level of assist. Patient will complete toileting at: MOD I level of assist. Patient will perform bathing at: MOD I level of assist. (Using adaptive equipment as needed for lower body bathing) Patient will perform Tub/Shower transfer at: - (Min assist) Patient will complete grooming at: MOD I level of assist. Patient will achieve: - (4 steps with 1 HR) Patient will have pain level of: of 3 or less Patient's skin will: remain intact Patient will receive: adequate nutrition. Discharge Planning Pt Prognosis for Sig. Practical Improv. w/in Reasonable Time: Good Estimated Length of stay (days): 21 Anticipated D/C Destination: Home with Home Health Was Preadmission Assessment Accurate?: Yes 10/02/24 1140 Cosigner Signature (if applicable): CC: ~ Signed [facility]05-28-2025 Procedure note [facility] Speech Pathology [address] [place] [address] Modified Barium Swallow Study MR#: [id number] Acct: [id number] Name: AYESHA JACOBSEN Rep #:[id number] : 1935 89 From: Gia Sierra Modified Barium Swallow Patient Information Study Date: 10/02/24 Study Time: 09:30 Direct Billable Minutes: 120 Total Minutes procedure & reportin Diagnosis: 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 He presented to the Emergency Department at [facility] on 09/24/24 with complaints of left hip pain following a fall. Initial plain radiographs revealed no acute fracture of the left hip. However, a CT scanof the pelvis demonstrated an acute, nondisplaced fracture of the left inferior pubic ramus and a fracture of the anterior-inferior wall of the left acetabulum.No dislocation was observed. On 09/25/24, he was noted to have focal weakness of the left lower extremity that was disproportionate to what would be expected from the pelvic fractures alone. An MRI of the brain revealed small, acute infarcts in the right middle cerebral artery (MCA) territory, consistent with anacute stroke. On 09/27/24, the patient was transferred to the acute inpatient rehabilitation unit at [facility] with a diagnosis of post-stroke debility. He isscheduled to receive three hours of therapy daily aimed at restoring functional independence to hispre-event baseline. A dysphagia evaluation conducted on 10/03/24 recommended a MBSS to objectively assess swallowing function and determine the most appropriate PO diet. Current Diet Ordered: Easy to Chew / Thin Liquids Dentition: Upper Dentures and Lower Dentures Mental Status: Impaired Respiratory Status: Oxygenating on Room Air Penetration-Aspiration Scale Penetration-Aspiration Scale: OBJECTIVE ASSESSMENT OF SWALLOW FUNCTION (QUANTITATIVE ? PER TRIAL): PENETRATION / ASPIRATION SCALE (FELIZ): 1 = does not enter airway 2 = enters airway/above vocal folds/ejected 3 = enters airway/above vocal folds/not ejected 4 = enters airway/contacts vocal folds/ejected 5 = enters airway/contacts vocal folds/not ejected 6 = enters airway/below vocal folds/ejected 7 = enters airway/below vocal folds/not ejected despite effort 8 = enters airway/below vocal folds/no effort VIDEOFLOROSCOPIC SCALE SCORE (FELIZ): Grade I = aspiration of material that has penetrated into the laryngeal vestibule, intact cough reflex Grade II = aspiration < 10 % of the bolus, intact cough reflex Grade III = aspiration of < 10 % of the bolus, reduced cough reflex or aspiration of > 10 % of the bolus, intact cough reflex Grade IV = aspiration of > 10 % of the bolus, reduced cough reflex Penetration-Aspiration Scale Score Thin Liquid via teaspoon: Result: 2= enter airway/above vocal folds/ejected Thin Liquid via large single sip: cup: Result: 7= enters airways/below vocal folds/not ejected despite effort Thin Liquid via small single sip: cup: Result: 8= enters airway/below vocal folds/no effort Cabery Thick Liquid via small single sip: cup: Result: 3= enters airways/above vocal folds/not ejected Cabery Thick Liquid via teaspoon: Result: 1= does not enter airway Cabery Thick Liquid via teaspoon Trial 2: Result: 1= does not enter airway Cabery Thick Liquid via teaspoon Trial 3: Result: 2= enter airway/above vocal folds/ejected Honey Thick Liquid via small single sip: cup: Result: 3= enters airways/above vocal folds/not ejected Cabery Thick Liquid via teaspoon Trial 4: Result: 1= does not enter airway Pudding: Result: 1= does not enter airway Cookie: Result: 1= does not enter airway Cabery Thick Liquid via teaspoon Trial 5: Result: 1= does not enter airway Cabery Thick Liquid via teaspoon Trial 6: Result: 1= does not enter airway Cabery Thick Liquid via teaspoon Trial 7: Result: 2= enter airway/above vocal folds/ejected Thin Liquid via teaspoon Trial 2: Result: 5= enters airways/contacts vocal folds/not ejected Oral Phase Labial Seal: Interlabial escape, no progression to anterior lip Tongue Control During Bolus Hold: Posterior escape of less than half of bolus Bolus Preparation/Mastication: Disorganized chewing/mashing with solid pieces ofbolus unchewed Bolus Transport/Lingual Motion: Repetitive/disorganized tongue motion Oral Residue: Residue collection on oral structures Pharyngeal Phase Initiation of Pharyngeal Swallow: Bolus head in pyriforms Soft Palate Elevation: No bolus between soft palate and pharyngeal wall Laryngeal Elevation: Partial superior movement thyroid cart/partial apprx aryt- epig petiole Anterior Hyoid Excursion: Partial anterior movement Epiglottic Movement: Partial inversion Laryngeal Vestibule Closure at Height of Swallow: Incomplete; narrow column of air/contrast in laryngeal vestibule Pharyngeal Stripping Wave: Present - diminished Pharyngoesophageal Segment Opening: Parital distension and partial duration; parital obstruction offlow Tongue Base Retraction: Narrow column of contrast between tongue base & post. pharyngeal wall Pharyngeal Residue: Collection of residue within or on pharyngeal structures Esophageal Phase Esophageal Clearance: Complete clearance (with pudding and cookie trial) Diagnosis/Impression Diagnosis: moderate oropharyngeal dysphagia R13.12 Impression: The patient presents with oropharyngeal dysphagia likely secondary to acute CVA.MBSS revealed a disorganized oral phase characterized by repetitive AP tongue movements and lingual pumping. The patient required verbal cues to perform double swallows in order to clear oral residue. Notably, there was significant posterior loss of a Jeannette Doone cookie, with the majority of the bolus pooling in the vallecula and along the posterior surface of the epiglottis prior to swallow initiation. The patient demonstrated poor bolus control, with premature spillage into the pyriform sinuses with liquids, resulting in suboptimal bolus positioning at swallow onset. Silent aspiration was observed with thin liquids administered via cup. A delayed cough occurred once following an aspiration event. Aspiration attributed to incomplete airway closure at swallow onset, reduced laryngeal elevation, and decreasedanterior hyoid excursion. Consistent laryngeal penetration to the level of the vocal cords and/or aspiration was observed with thin liquids, regardless of delivery method (tsp or cup) or use ofswallowing strategies. The patient consistently required 2?3 swallows per trial. Pharyngeal residue was observed in the vallecula and pyriform sinuses, likely due to reduced tonguebase retraction and partial UES opening. Occasional trace residue in the pyriform sinuses, likely due to partial UES opening, appeared to approach the airway; however, no penetration and/or aspiration was observed during fluoroscopy. The patient is at risk for pre-prandial, intra-prandial, andpost-prandial aspiration. During the MBSS, the patient demonstrated a tendency to tilt the head backward, increasing the riskof aspiration. Verbal cues were required to maintain a neutral head position, which the patient wasable to follow when prompted. Initial nectar-thick liquid trials via tsp administered by the [facility] resulted in PAS scores of 1?2. When the patient self-administered nectar-thick liquids via tsp with a neutral head position, PAS scores remained at 1?2. Diet: Easy to chew and nectar-thick liquids by tsp. Supervision: Patient should be supervised during all PO intake due to cognitive impairments and difficulty following/recalling compensatory strategies. Harmon Free Water Protocol may be initiated topromote compliance with nectar-thick liquid recommendations, support hydration, and enhance overallquality of life. Recommendations Diet: Easy to Chew Textures and Mildly Thick Liquids (Liquid by Teaspoon Only) Compensatory Strategies: Small Bites, Small Sips (Intermittent Cough and Re- Swallow), Liquid by Teaspoon Only, Slow Rate, Feed only when alert, Multiple Swallows, Alternate bites/solids and sips/liquids, Sitting upright, Remain sitting upright for 30 minutes after PO intake and Assist with verbal cues to use recommended strategies Supervision: 1:1 Direct Supervision Recommend Repeat Modified Barium Swallow: Yes Need for Skilled Speech Therapy Services: Yes Education Completed: 1. Described result of evaluation., 2. Pt understands evaluation & agrees with goals and treatment plan. and 4. Family/caregivers understand evaluation & agree w/ goals & tx plan. Status Active ST Patient: Active Contact Information [facility] Speech Therapy:: Gia Sierra M.A., [facility] Speech-Language Pathologist [facility] [phone]? ?FAX [phone]? [email or web address] ?[place] [address] 10/02/24 1108 > Date/Time Gia Sierra Co-Signature Required for all Medicare patients Date/Time Co-Signature CC: ~ [facility]05-27-2025 Progress note Author Shay Gaxiola [facility] Note Date/Time October 01, 2024 4:20p m [facility] Medical Records Department [address] [place] [id number] Progress Note 10/01/24 1210 MR#: [id number] Acct: [id number] Name: AYESHA JACOBSEN Rep #:[id number] : 1935 89 From: Shay Gaxiola DO PCP: Dr. Nimisha Oseguera MD Status:ADM I N Location: [place] [address] Subjective Subjective Zane was seen on team rounds today. His daughter Shay was present in the room. All questions were answered to their satisfaction. Afebrile VSS -he heart rate has ranged from 83-116 over the past 24 hours. Blood pressure is adequately controlled. Maintaining appropriate oxygen saturation on RA Oral intake - FOOD highly variable. Ate 75 to 100% of his last few meals. FLUIDS this has improved. He had 1910 cc in yesterday. Discussed with nursing -has been incontinent of urine. Still very restless and impulsive at night. Reviewed the THERAPY notes Medication list reviewed. The overnight trending pulse ox is abnormal. 11% of the time he was monitored the pulse ox was 89%. He had multiple desaturations greater than 60 seconds. We have been applying oxygen at night since the results of the overnight trending pulse ox became available. He is sleepy during the day. Cognition is worse than at home. Has never seen a neurologist for W/U for dementia. Shay tells me that he has seen Dr. Abbasi in the past and had esophageal dilation but, he has not had a procedure in several years. they have noticed he has a chronic cough recently. Stool is heme positive. Culture of the discharge from the left eye grew Staphylococcus aureus. It is not methicillin resistance but there is inducible clindamycin resistance. He has been on doxycycline. This was started for acutebronchitis. . Objective Data Objective Data Vital Signs: Vital Signs Temp Pulse Resp BP Pulse Ox O2 Del Method O2 Flow Rate 97.4 F L 116 H 16 124/64 H 93 Nasal Cannula 2 10/01/24 06:00 10/01/24 10:03 10/01/24 06:00 10/01/24 10:03 10/01/24 06:00 10/01/24 06:00 10/01/24 06:00 FiO2 21 09/28/24 21:15 Oxygen Flow Rate (L/min) 2 Oxygen Delivery Method Nasal Cannula Weight: 139 lb 1 oz Body Mass Index (BMI) 27.3 Intake & Output: Intake and Output for Last 24 Hours 09/29/24 09/30/24 10/01/24 23:59 23:59 23:59 Intake Total 1300 / 1300 1909 240 / 240 Output Total 80 / 80 400 / 400 Balance 1220 / 1220 1909 -160 / -160 Lab / Micro Data 09/28/24 06:24 09/28/24 06:24 Micro: Microbiology 09/29/24 09:12 Exudate Gram Stain - Final 09/29/24 09:12 Exudate Wound Culture - Final Staphylococcus aureus 09/30/24 04:43 Stool Stool Occult Blood (JOVANI) - Final Occult Blood Positive Physical Exam Const Constitutional Narrative: Drowsy. Not hearing well at all and this is I believe contributing to confusion. He has no hearing aids that were ordered and his dtr is going to tryand pick them up Always cooperative during the day. Taking naps during the day and not sleeping at night. General Appearance: cooperative HEENT Mouth: dry mucous membranes Eyes Eyes Narrative: the left eye is less erythematous since the Doxy was started. No purulent DC noted. Denies eye pain. Resp Resp Narrative: Having apneic periods when he is sleeping. Increasd rhonchi in the left lower lung lateral and posterior. Recent CXR without infiltrate. He is AF and is on doxyxycline. Effort and Inspection: Negative for tachypneic or respiratory distress Cardio regular rate and regular rhythm Cardio Narrative: occasional ectopic. MM are very dry. No ankle edema. HR increasing with activity.......suspect due to pain, IV volume depletion. GI normal to inspection, nondistended, normoactive bowel sounds, soft to palpation and non-tender Extremity no calf tenderness General Extremity: Negative for edema Assessment & Plan Assessment/Plan (1) Debility: (2) Acute ischemic right MCA stroke: (3) Left leg weakness: (4) Facial droop: (5) Cognitive dysfunction: (6) Paresthesias: (7) Inferior pubic ramus fracture: QUALIFIERS: Encounter type: initial encounter Fracture type: closed Laterality: left Qualified Code(s): S32.592A - Other specified fracture of left pubis, initial encounter for closed fracture (8) Pain aggravated by physical activity: (9) Hypophosphatemia: (10) GERD (gastroesophageal reflux disease): QUALIFIERS: Esophagitis presence: without esophagitis Qualified Code(s): K21.9 - Gastro-esophageal reflux disease without esophagitis (11) Esophageal stenosis: (12) History of esophageal dilatation: (13) Dyslipidemia: (14) BPH (benign prostatic hyperplasia): QUALIFIERS: Lower urinary tract symptom presence: unspecified whether lower urinary tract symptoms present Qualified Code(s): N40.0 - Benign prostatic hyperplasia without lower urinary tract symptoms (15) Essential (primary) hypertension: (16) Hypoxemia associated with sleep: (17) Acute bronchitis: QUALIFIERS: Bronchitis organism: unspecified organism Qualified Code(s): J20.9 - Acute bronchitis, unspecified PLAN: Plan 1. Continue therapy 2. EKG-normal sinus rhythm. QTc is 414 ms and the QTc is 474. Left axis deviation. No ST elevation or depression noted. 3. Hold the Remeron and increased Seroquel to 37.5 mg at at bedtime. 4. Orthostatic vital signs today 5. Start gentamicin ophthalmic drops 2 drops to the left eye every 6 hours x 16doses for Staph aureus conjunctivitis 6. O2 at 2 L/min anytime he is sleeping 7. ST to do a MBS this week. May need a GI consult/EGD. 8. follow up with neurology post DC from rehab for stroke and cognitive dysfunction 9. Check a CBC with differential, BMP and a T4 and T3 in the AM. TSH is WNL but, unusually low for this age. Charges/Coding Visit Charges Inpatient E&M: 21846 Subs Hosp L2 10/01/24 1620 <Electronically signed by Shay Gaxiola DO> Shay Gaxiola DO Cosigner Signature (if applicable): CC: ~ Signed [facility] Work Phone: 1(941) 118-325805-27-2025 Progress note [facility] Medical Records Department [address] [place] [address] Progress Note 10/01/24 1210 MR#: [id number] Acct: [id number] Name: AYESHA JACOBSEN Rep #:[id number] : 1935 89 From: Shay Gaxiola DO PCP: Dr. Nimisha Oseguera MD Status:ADM I N Location: [place] [address] Subjective Subjective Zane was seen on team rounds today. His daughter Shay was present in the room. All questions were answered to their satisfaction. Afebrile VSS -he heart rate has ranged from 83-116 over the past 24 hours. Blood pressure is adequately controlled. Maintaining appropriate oxygen saturation on RA Oral intake - FOOD highly variable. Ate 75 to 100% of his last few meals. FLUIDS this has improved.He had 1910 cc in yesterday. Discussed with nursing -has been incontinent of urine. Still very restless and impulsive at night. Reviewed the THERAPY notes Medication list reviewed. The overnight trending pulse ox is abnormal. 11% of the time he was monitored the pulse ox was 89%.He had multiple desaturations greater than 60 seconds. We have been applying oxygen at night since the results of the overnight trending pulse ox became available. He is sleepy during the day. Cognition is worse than at home. Has never seen a neurologist for W/U for dementia. Shay tells me that he has seen Dr. Abbasi in the past and had esophageal dilation but, he has not had a procedure in several years. they have noticed he has a chronic cough recently. Stool is heme positive. Culture of the discharge from the left eye grew Staphylococcus aureus. It is not methicillin resistance but there is inducible clindamycin resistance. He has been on doxycycline. This was started for acutebronchitis. . Objective Data Objective Data Vital Signs: Vital Signs Temp Pulse Resp BP Pulse Ox O2 Del Method O2 Flow Rate 97.4 F L 116 H 16 124/64 H 93 Nasal Cannula 2 10/01/24 06:00 10/01/24 10:03 10/01/24 06:00 10/01/24 10:03 10/01/24 06:00 10/01/24 06:00 10/01/24 06:00 FiO2 21 09/28/24 21:15 Oxygen Flow Rate (L/min) 2 Oxygen Delivery Method Nasal Cannula Weight: 139 lb 1 oz Body Mass Index (BMI) 27.3 Intake & Output: Intake and Output for Last 24 Hours 09/29/24 09/30/24 10/01/24 23:59 23:59 23:59 Intake Total 1300 / 1300 1909 240 / 240 Output Total 80 / 80 400 / 400 Balance 1220 / 1220 1909 -160 / -160 Lab / Micro Data 09/28/24 06:24 09/28/24 06:24 Micro: Microbiology 09/29/24 09:12 Exudate Gram Stain - Final 09/29/24 09:12 Exudate Wound Culture - Final Staphylococcus aureus 09/30/24 04:43 Stool Stool Occult Blood (JOVANI) - Final Occult Blood Positive Physical Exam Const Constitutional Narrative: Drowsy. Not hearing well at all and this is I believe contributing to confusion. He has no hearing aids that were ordered and his dtr is going to tryand pick them up Always cooperative during the day. Taking naps during the day and not sleeping at night. General Appearance: cooperative HEENT Mouth: dry mucous membranes Eyes Eyes Narrative: the left eye is less erythematous since the Doxy was started. No purulent DC noted. Denies eye pain. Resp Resp Narrative: Having apneic periods when he is sleeping. Increasd rhonchi in the left lower lung lateral and posterior. Recent CXR without infiltrate. He is AF and is on doxyxycline. Effort and Inspection: Negative for tachypneic or respiratory distress Cardio regular rate and regular rhythm Cardio Narrative: occasional ectopic. MM are very dry. No ankle edema. HR increasing with activity.......suspect due to pain, IV volume depletion. GI normal to inspection, nondistended, normoactive bowel sounds, soft to palpation and non-tender Extremity no calf tenderness General Extremity: Negative for edema Assessment & Plan Assessment/Plan (1) Debility: (2) Acute ischemic right MCA stroke: (3) Left leg weakness: (4) Facial droop: (5) Cognitive dysfunction: (6) Paresthesias: (7) Inferior pubic ramus fracture: QUALIFIERS: Encounter type: initial encounter Fracture type: closed Laterality: left Qualified Code(s): S32.592A - Other specified fracture of left pubis, initial encounter for closed fracture (8) Pain aggravated by physical activity: (9) Hypophosphatemia: (10) GERD (gastroesophageal reflux disease): QUALIFIERS: Esophagitis presence: without esophagitis Qualified Code(s): K21.9 - Gastro-esophageal reflux disease without esophagitis (11) Esophageal stenosis: (12) History of esophageal dilatation: (13) Dyslipidemia: (14) BPH (benign prostatic hyperplasia): QUALIFIERS: Lower urinary tract symptom presence: unspecified whether lower urinary tract symptoms present Qualified Code(s): N40.0 - Benign prostatic hyperplasia without lower urinary tract symptoms (15) Essential (primary) hypertension: (16) Hypoxemia associated with sleep: (17) Acute bronchitis: QUALIFIERS: Bronchitis organism: unspecified organism Qualified Code(s): J20.9 - Acute bronchitis, unspecified PLAN: Plan 1. Continue therapy 2. EKG-normal sinus rhythm. QTc is 414 ms and the QTc is 474. Left axis deviation. No ST elevation or depression noted. 3. Hold the Remeron and increased Seroquel to 37.5 mg at at bedtime. 4. Orthostatic vital signs today 5. Start gentamicin ophthalmic drops 2 drops to the left eye every 6 hours x 16doses for Staph aureus conjunctivitis 6. O2 at 2 L/min anytime he is sleeping 7. ST to do a MBS this week. May need a GI consult/EGD. 8. follow up with neurology post DC from rehab for stroke and cognitive dysfunction 9. Check a CBC with differential, BMP and a T4 and T3 in the AM. TSH is WNL but, unusually low for this age. Charges/Coding Visit Charges Inpatient E&M: 30330 Subs Hosp L2 10/01/24 1620 Shay Gaxiola DO Cosigner Signature (if applicable): CC: ~ Signed [facility]05-26-2025 Progress note Author Shay Calvovicky [facility] Note Date/Time September 30, 2024 3:39p m [facility] Medical Records Department [address] [place] [address] Progress Note 09/30/24 1521 MR#: [id number] Acct: [id number] Name: AYESHA JACOBSEN Rep #:[id number] : 1935 89 From: Shay Gaxiola DO PCP: Dr. Nimisha Oseguera MD Status:ADM I N Location: [place] [address] Subjective Subjective Day #3 doxycycline Afebrile VSS -blood pressure over the past 24 hours has ranged from 127/71 to 156/84. Heart rate is within normal limits. Maintaining appropriate oxygen saturation on RA -pulse ox during the day while awake ranges from 90-94. Oral intake - FOOD varies from poor to good FLUIDS improving, he had 1300 [facility] p.o. yesterday and so far today has had 920. Discussed with nursing -started on Seroquel for owning/agitation at night. Still did not sleep well last night. Reviewed the THERAPY notes Medication list reviewed. Overnight trending pulse ox shows the pulse ox to be 89% or less 11% of the timehe was monitored. Multiple desaturations greater than 60 seconds. Tells me that the pain us better. He is able to do therapy. Movement improves pain/stiffness. Needing a lot of cuing with therapy. Impulsive. Poor safety awareness. Stool is heme positive. Gram stain of the discharge from the left eye is growing Staph aureus..... Sensitivities are pending. Objective Data Objective Data Vital Signs: Vital Signs Temp Pulse Resp BP Pulse Ox O2 Del Method O2 Flow Rate 98.9 F 89 16 151/73 H 91 Room Air 2 09/30/24 06:00 09/30/24 08:14 09/30/24 06:00 09/30/24 06:00 09/30/24 06:00 09/30/24 09:44 09/30/24 09:17 FiO2 21 09/28/24 21:15 Oxygen Flow Rate (L/min) 2 Oxygen Delivery Method Room Air Weight: 139 lb 1 oz Body Mass Index (BMI) 27.3 Intake & Output: Intake and Output for Last 24 Hours 09/28/24 09/29/24 09/30/24 23:59 23:59 23:59 Intake Total 770 / 770 1300 / 1300 920 / 920 Output Total 1035 / 1035 80 / 80 Balance -265 / -265 1220 / 1220 920 / 920 Lab / Micro Data 09/28/24 06:24 09/28/24 06:24 Micro: Microbiology 09/29/24 09:12 Exudate Wound Culture - Preliminary Staphylococcus aureus 09/30/24 04:43 Stool Stool Occult Blood (JOVANI) - Final Occult Blood Positive Physical Exam Const alert and no apparent distress Constitutional Narrative: sitting in the recliner at the bedside General Appearance: cooperative HEENT head/scalp atraumatic Eyes PERRL, EOMs intact bilaterally and no scleral icterus Eyes Narrative: No discharge from the eyes. The conjunctiva is mildly injected BL. He denies pain and DC from the eyes. Neck No nodes and no carotid bruits General: trachea midline Chest Chest: symmetrical chest wall rise Resp Resp Narrative: Decreased BS's throughout. cough has improved. Rare coarse wheezing. Effort and Inspection: able to speak in complete sentences Cardio regular rate, regular rhythm and no gallops Cardio Narrative: No ectopy. Resting HR is a little high. Systolic MM at the LLSB, apex and L axilla. PMI is deviated medial and inferiorly. GI normal to inspection, nondistended, normoactive bowel sounds, soft to palpation and non-tender GI Narrative: No guarding with palpation no CVA tenderness Extremity no calf tenderness and no pedal edema Skin no jaundice Skin Narrative: Dry skin Rashes: no rashes Hair: male pattern alopecia Neuro Neuro Narrative: Right facial droop, tongue protrudes on the midline, mild dysarthria. No visualfield cuts, pupils are equal round and reactive to light and accommodation, extraocular muscles are intact. Decreased hearing. 5/5 strength in both upperextremities. He is right-hand dominant. The left leg fell to the bed prior to5 seconds. No ataxia in the upper extremities. Could not adequately check for ataxia in the left lower extremity due to weakness of the left lower extremity. Decreased sensation in the left arm and left leg. No extinction. No aphasia. I did not ambulate him. Psych cooperative, denies hallucinations and denies suicidal ideation Psych Narrative: Got tearful talking about his family. told me that he had a son who of CVA/VA. Feels he is declining. Having trouble with his memory. Trouble sleeping at night. Appetite has been somewhat decreased. Appearance: grossly normal, appropriate and well kempt Attitude: calm and engaged Activity / Motor Behavior: appropriate eye contact; Negative for psychomotor agitation, psychomotor slowing or fidgetting Speech: normal speech Assessment & Plan Assessment/Plan (1) Debility: (2) Acute ischemic right MCA stroke: (3) Left leg weakness: (4) Facial droop: (5) Cognitive dysfunction: PLAN: Scored 23/30 on the MOCA (6) Paresthesias: PLAN: Left arm and leg (7) Fall: QUALIFIERS: Encounter type: initial encounter Qualified Code(s): W19.XXXA - Unspecified fall, initial encounter (8) Inferior pubic ramus fracture: QUALIFIERS: Encounter type: initial encounter Fracture type: closed Laterality: left Qualified Code(s): S32.592A - Other specified fracture of left pubis, initial encounter for closed fracture (9) Contusion of left hip: QUALIFIERS: Encounter type: initial encounter Qualified Code(s): S70.02XA - Contusion of left hip, initial encounter (10) Pain aggravated by physical activity: (11) Presbycusis: QUALIFIERS: Laterality: bilateral Qualified Code(s): 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, bilateral (12) Depression: QUALIFIERS: Depression Type: unspecified Qualified Code(s): F32.A- Depression, unspecified PLAN: Suspected (13) Leukocytosis: QUALIFIERS: Leukocytosis type: unspecified Qualified Code(s): D72.829 - Elevated white blood cell count, unspecified (14) Hypophosphatemia: (15) Productive cough: (16) GERD (gastroesophageal reflux disease): QUALIFIERS: Esophagitis presence: without esophagitis Qualified Code(s): K21.9 - Gastro-esophageal reflux disease without esophagitis (17) Esophageal stenosis: (18) History of esophageal dilatation: (19) Dyslipidemia: (20) BPH (benign prostatic hyperplasia): QUALIFIERS: Lower urinary tract symptom presence: unspecified whether lower urinary tract symptoms present Qualified Code(s): N40.0 - Benign prostatic hyperplasia without lower urinary tract symptoms (21) Essential (primary) hypertension: (22) Hypoxemia associated with sleep: PLAN: Plan 1. Continue therapy 2. Increase Remeron to 15 mg p.o. nightly 3. Change tramadol to 25 mg at 0600 and 1400 and 50 mg at 10 PM. 4. Continue doxycycline for total of 7 days 5. Protonix 40 mg daily 6. Check 3 more postvoid residuals 7. Goal for blood pressure in this 89-year-old is less than 140/80. In the next 1 to 2 days adjust antihypertensive regimen as needed to get the systolic less than 140. 8. Discontinue Plavix after 21 doses 9. Apply oxygen at 2 L anytime he is sleeping Charges/Coding Visit Charges Inpatient E&M: 85441 Subs Hosp L1 09/30/24 1539 <Electronically signed by Shay Gaxiola DO> Shay Gaxiola DO Cosigner Signature (if applicable): CC: ~ Signed [facility] Work Phone: [phone]) 666-106805-26-2025 Progress note [facility] Medical Records Department [address] [place] [id number] Progress Note 09/30/24 1521 MR#: [id number] Acct: [id number] Name: AYESHA JACOBSEN Rep #:[id number] : 1935 89 From: Shay Gaxiola DO PCP: Dr. Nimisha Oseguera MD Status:ADM I N Location: [place] [address]1 Subjective Subjective Day #3 doxycycline Afebrile VSS -blood pressure over the past 24 hours has ranged from 127/71 to 156/84. Heart rate is within normal limits. Maintaining appropriate oxygen saturation on RA -pulse ox during the day while awake ranges from 90-94. Oral intake - FOOD varies from poor to good FLUIDS improving, he had [facility] p[facility] yesterday and so far today has had 920. Discussed with nursing -started on Seroquel for owning/agitation at night. Still did not sleep well last night. Reviewed the THERAPY notes Medication list reviewed. Overnight trending pulse ox shows the pulse ox to be 89% or less 11% of the timehe was monitored. Multiple desaturations greater than 60 seconds. Tells me that the pain us better. He is able to do therapy. Movement improves pain/stiffness. Needing a lot of cuing with therapy. Impulsive. Poor safety awareness. Stool is heme positive. Gram stain of the discharge from the left eye is growing Staph aureus..... Sensitivities are pending. Objective Data Objective Data Vital Signs: Vital Signs Temp Pulse Resp BP Pulse Ox O2 Del Method O2 Flow Rate 98.9 F 89 16 151/73 H 91 Room Air 2 09/30/24 06:00 09/30/24 08:14 09/30/24 06:00 09/30/24 06:00 09/30/24 06:00 09/30/24 09:44 09/30/24 09:17 FiO2 21 09/28/24 21:15 Oxygen Flow Rate (L/min) 2 Oxygen Delivery Method Room Air Weight: 139 lb 1 oz Body Mass Index (BMI) 27.3 Intake & Output: Intake and Output for Last 24 Hours 09/28/24 09/29/24 09/30/24 23:59 23:59 23:59 Intake Total 770 / 770 1300 / 1300 920 / 920 Output Total 1035 / 1035 80 / 80 Balance -265 / -265 1220 / 1220 920 / 920 Lab / Micro Data 09/28/24 06:24 09/28/24 06:24 Micro: Microbiology 09/29/24 09:12 Exudate Wound Culture - Preliminary Staphylococcus aureus 09/30/24 04:43 Stool Stool Occult Blood (JOVANI) - Final Occult Blood Positive Physical Exam Const alert and no apparent distress Constitutional Narrative: sitting in the recliner at the bedside General Appearance: cooperative HEENT head/scalp atraumatic Eyes PERRL, EOMs intact bilaterally and no scleral icterus Eyes Narrative: No discharge from the eyes. The conjunctiva is mildly injected BL. He denies pain and DC from the eyes. Neck No nodes and no carotid bruits General: trachea midline Chest Chest: symmetrical chest wall rise Resp Resp Narrative: Decreased BS's throughout. cough has improved. Rare coarse wheezing. Effort and Inspection: able to speak in complete sentences Cardio regular rate, regular rhythm and no gallops Cardio Narrative: No ectopy. Resting HR is a little high. Systolic MM at the LLSB, apex and L axilla. PMI is deviatedmedial and inferiorly. GI normal to inspection, nondistended, normoactive bowel sounds, soft to palpation and non-tender GI Narrative: No guarding with palpation no CVA tenderness Extremity no calf tenderness and no pedal edema Skin no jaundice Skin Narrative: Dry skin Rashes: no rashes Hair: male pattern alopecia Neuro Neuro Narrative: Right facial droop, tongue protrudes on the midline, mild dysarthria. No visualfield cuts, pupils are equal round and reactive to light and accommodation, extraocular muscles are intact. Decreased hearing. 5/5 strength in both upperextremities. He is right-hand dominant. The left leg fell to the bed prior to5 seconds. No ataxia in the upper extremities. Could not adequately check for ataxia in the left lower extremity due to weakness of the left lower extremity. Decreased sensation in the left arm and left leg. No extinction. No aphasia. I did not ambulate him. Psych cooperative, denies hallucinations and denies suicidal ideation Psych Narrative: Got tearful talking about his family. told me that he had a son who of CVA/VA. Feels he is declining. Having trouble with his memory. Trouble sleeping at night. Appetite has been somewhat decreased. Appearance: grossly normal, appropriate and well kempt Attitude: calm and engaged Activity / Motor Behavior: appropriate eye contact; Negative for psychomotor agitation, psychomotorslowing or fidgetting Speech: normal speech Assessment & Plan Assessment/Plan (1) Debility: (2) Acute ischemic right MCA stroke: (3) Left leg weakness: (4) Facial droop: (5) Cognitive dysfunction: PLAN: Scored 23/30 on the MOCA (6) Paresthesias: PLAN: Left arm and leg (7) Fall: QUALIFIERS: Encounter type: initial encounter Qualified Code(s): W19.XXXA - Unspecified fall, initial encounter (8) Inferior pubic ramus fracture: QUALIFIERS: Encounter type: initial encounter Fracture type: closed Laterality: left Qualified Code(s): S32.592A - Other specified fracture of left pubis, initial encounter for closed fracture (9) Contusion of left hip: QUALIFIERS: Encounter type: initial encounter Qualified Code(s): S70.02XA - Contusion of left hip, initial encounter (10) Pain aggravated by physical activity: (11) Presbycusis: QUALIFIERS: Laterality: bilateral Qualified Code(s): 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, bilateral (12) Depression: QUALIFIERS: Depression Type: unspecified Qualified Code(s): F32.A- Depression, unspecified PLAN: Suspected (13) Leukocytosis: QUALIFIERS: Leukocytosis type: unspecified Qualified Code(s): D72.829 - Elevated white blood cell count, unspecified (14) Hypophosphatemia: (15) Productive cough: (16) GERD (gastroesophageal reflux disease): QUALIFIERS: Esophagitis presence: without esophagitis Qualified Code(s): K21.9 - Gastro-esophageal reflux disease without esophagitis (17) Esophageal stenosis: (18) History of esophageal dilatation: (19) Dyslipidemia: (20) BPH (benign prostatic hyperplasia): QUALIFIERS: Lower urinary tract symptom presence: unspecified whether lower urinary tract symptoms present Qualified Code(s): N40.0 - Benign prostatic hyperplasia without lower urinary tract symptoms (21) Essential (primary) hypertension: (22) Hypoxemia associated with sleep: PLAN: Plan 1. Continue therapy 2. Increase Remeron to 15 mg p.o. nightly 3. Change tramadol to 25 mg at 0600 and 1400 and 50 mg at 10 PM. 4. Continue doxycycline for total of 7 days 5. Protonix 40 mg daily 6. Check 3 more postvoid residuals 7. Goal for blood pressure in this 89-year-old is less than 140/80. In the next 1 to 2 days adjust antihypertensive regimen as needed to get the systolic less than 140. 8. Discontinue Plavix after 21 doses 9. Apply oxygen at 2 L anytime he is sleeping Charges/Coding Visit Charges Inpatient E&M: [address] [facility] Hosp L1 09/30/24 1539 Shay Gaxiola DO Cosigner Signature (if applicable): CC: ~ Signed [facility]05-24-2025 History and physical note Author Shay Gaxiola [facility] Note Date/Time September 28, 2024 11:51 am [facility] Medical Records Department [address] [place] [address] History & Physical Exam 09/28/24 0842 MR#: [id number] Acct: [id number] Name: AYESHA JACOBSEN Rep #:[id number] : 1935 89 From: Shay Gaxiola DO PCP: Dr. Nimisha Oseguera MD Status:ADM I N Location: [place] [address] HPI - General General Date of Admission: 09/27/24 Date of Service: 09/28/24 HPI Narrative AYESHA JACOBSEN, is a 89 YO M with a PMH of hypertension, seizure disorder, vertigo, asthma, BPH with urine retention, history of colectomy, GERD, esophageal stenosis , OA and chronic debility who presented to the ED at [facility] on 09/24/24 c/o pain in the L hip after a fall. He was unable to ambulate. Plain x-ray showed no evidence of acute fracture of the left hip. CT scan of the pelvis showed an acute nondisplaced fracture of the left inferior pubic ramus and fracture of the anterior inferior left acetabular wall. There was no dislocation. He was admitted to the hospitalist service for pain management andconsult with case management for disposition at [place]. PT/OT were consulted. On 09/25/24 he was noted to have focl weakness of the LLE that exceeded what would be expected with pelvic fracture. An MRI of the brain was obtained and showed small acute right MCA scattered infarcts. He was started on dual antiplatelet agents and atorvastatin 40 mg daily. LDL was checked and was 103 and his hemoglobin A1c was 5.4. The HDL was 59. Tele-neurology was consulted and recommended a transthoracic echocardiogram and carotid ultrasound. After 21 days Plavix could be discontinued. An event monitor was recommended at discharge. TTE showed normal left ventricular size with an ejection fraction of55%. Both atria were of normal size. There was mild aortic stenosis and mild TR and MR. Carotid ultrasound showed less than 50% stenosis and both extracranial internal carotids. He was transferred to the acute inpatient rehabunit at [facility] on 09/27/2024 with a diagnosis of poststroke debility. He will have 3 hours of therapy daily to restore function/independence at or near his level prior to recent events. Nursing reports that last night he was restless, confused and painful. He has had 2 postvoid residuals and they are 128 and 184. He had 75 to 100% of his breakfast today. Blood pressure since arrival on rehab has ranged from 110/77 to 146/77. Heart rate has ranged from 75-91. Pulse ox on room air is ranged from 91 to 94%. Medication list was reviewed. Pain medication includes only Tylenol 1 g p.o. every 8 hours scheduled All lab drawn this morning was personally reviewed. The white blood cell count is elevated at 13. He has a mild left shift with 75% neutrophils. Hemoglobin is stable at 13. Platelets are within normal limits. The sodium is 138 and thepotassium is 3.8. BUN is down to 17 following hydration and the creatinine is stable at 0.91. GFR is 81 and the creatinine clearance is 43.8. Phosphorus is low at 2.1 and the magnesium is borderline low at 1.6. LFTs are unremarkable. Vitamin D level done on 09/25/2024 was very low at 9.4. TSH was 0.49. [facility] Medical History (Updated 09/28/24 @ 11:[address] Shay Gaxiola, DO) Esophageal stenosis Esophageal foreign body Tobacco dependence in remission Dyslipidemia Vitamin D deficiency History of esophageal dilatation Urinary retention BPH (benign prostatic hyperplasia) Essential (primary) hypertension Seizure disorder Urinary tract infection Dehydration Acute kidney injury Acute encephalopathy Debility Home Medications ?Medication ?Instructions ?Recorded ?Last Taken ?Type omeprazole 20 mg capsule,delayed 40 mg PO DAILY GERD 0 01/02/16 09/27/24 History release cyanocobalamin (vitamin B-12) 500 500 mcg PO DAILY Sup plement 03/05/24 09/27/24 History mcg tablet (Vitamin B-12) meclizine 25 mg tablet 25 mg PO TID PRN PRN dizzine ss or 03/05/24 Unknown History vertigo tamsulosin 0.4 mg capsule 0.4 mg PO DAILY Bladder 02/0609/27/24 History acetaminophen 500 mg tablet 1,000 mg (2 x 500 mg) PO Q 6H PRN 03/11/24 Unknown Rx Held on 09/27/24. PRN Pain Score 1-10 #0 tabs Instructions: Until restarted acetaminophen 500 mg tablet 1,000 mg (2 x 500 mg) PO Q 8 pain 09/27/24 09/27/24 Rx #0 tabs aspirin 81 mg chewable tablet 81 mg PO DAILYCM Heart h ealth #0 09/27/24 09/27/24 Rx tabs atorvastatin 40 mg tablet 40 mg PO QHS cholestrol #0 t abs 09/27/24 09/26/24 Rx clopidogrel 75 mg tablet 75 mg PO DAILY Anti platelet s #0 09/27/24 09/27/24 Rx tabs ergocalciferol (vitamin D2) 1,250 1,250 mcg PO Q7D@100 0 supplement 09/27/24 09/26/24 Rx mcg (50,000 unit) capsule (Vitamin #0 caps D2) food supplemt, lactose-reduced 120 ml PO 4X/DAY supple ment #0 mL 09/27/24 09/27/24 Rx 0.08 gram-1.5 kcal/mL oral liquid (Ensure Plus High Protein) heparin (porcine) 5,000 unit/mL 5,000 unit subcut Q12 blood 09/27/24 09/27/24 Rx injection solution thinner #0 mL lisinopril 10 mg tablet 10 mg PO DAILY BP #0 tabs 09/27/24 Rx melatonin 10 mg sublingual tablet 10 mg PO QHS sleep # 0 tabs 09/27/24 09/26/24 Rx metoprolol tartrate 25 mg tablet 25 mg PO BID BP #0 ta bs 09/27/24 09/27/24 Rx sennosides 8.6 mg-docusate sodium 2 tab PO BID stool s oftner #0 tabs 09/27/24 09/27/24 Rx 50 mg tablet (Stimulant Laxative Plus) Allergy/AdvReac Type Severity Reaction Status Date / Time egg Allergy Anaphylaxis Verified 09/24/24 18:40 Family History Mother Colon cancer Father Cancer Surgical History History of colectomy History of left inguinal hernia repair History of esophagogastroduodenoscopy (EGD) Social History (Updated 09/28/24 @ 11:07 by LIUDMILA Wyatt household members: spouse and other details: 's name is Dexter housing: house number of children: 6 Smoking Status: Former smoker how long ago did patient quit smokin years ago alcohol intake: never substance use type: does not use ROS ROS Narrative ROS is difficult. He has a hard time hearing and is not always answering the question I asked him. Answers sometimes tangential. Constitutional Constitutional: Reports difficulty sleeping, fatigue, malaise, weakness and other Details: tells me that he does not eat as much as he used to. Has lost a little weight. ; Denies anorexia, change in weight, chills, fever(s) or night sweats Eyes Eyes: Denies blurry vision, change in vision, eye pain or loss of vision ENT HEENT: Reports abnormal hearing, headache(s) and hearing loss; Denies dysphagia,nasal congestion or sore throat Cardiovascular Cardiovascular: Reports chest pain; Denies dyspnea on exertion, edema, lightheadedness, orthopnea, palpitations, paroxysmal nocturnal dyspnea or syncope Respiratory/Chest Respiratory/Chest: Reports chest congestion, cough, excessive phlegm production,productive cough and wheezing; Denies dyspnea, hemoptysis, shortness of breath at rest, shortness of breath with exertion or tachypnea Gastrointestinal Gastrointestinal: Denies abdominal pain, constipation, diarrhea, dyspepsia, hematemesis, hematochezia, nausea or vomiting Genitourinary Genitourinary: Denies dysuria, hematuria, nocturia, urinary frequency, urinary hesitancy, urinary incontinence or urinary urgency Musculoskeletal Musculoskeletal: Reports difficulty walking and other Details: pelvic pain ; Denies back pain, joint pain, joint swelling or neck pain Integumentary Integumentary: Reports dry skin; Denies jaundice, pruritus, rash or sores Neurologic Neurologic: Reports confusion, focal weakness, headache(s), weakness and other Details: Tells me that he has been having problems with memory that predate the recent stroke. ; Denies disequilibrium, dizziness, paresthesias, radicular pain, restless legs, seizures, tremor(s) or vertigo Psychiatric Psychiatric: Reports cognitive impairment, depression and memory loss; Denies anxiety, homicidal ideation, suicidal ideation or visual hallucinations Endocrine Endocrinology: Denies change in body appearance, polydipsia or polyuria Hematologic/Lymphatic Hematologic/Lymphatic: Denies easy bleeding, easy bruising or lymphadenopathy Allergic/Immunologic Allergic/Immunologic: Reports wheezing and asthma; Denies itchy eyes, rhinitis, tongue swelling, hives, urticaria or eczemia Vital Signs Vital Signs Vital Signs: 09/27/24 17:43 09/27/24 17:53 09/27/24 18:00 Temperature 98.6 F 98.6 F Temperature Source Temporal Temporal Pulse Rate 75 75 Pulse Rate [Lying] Pulse Rate [Sitting (for 1 minute prior to obtaining)] Pulse Rate [Standing (for 1 minute prior to obtaining)] Respiratory Rate 16 16 Respiratory Effort Normal Non-Labored Respiratory Depth Normal Respiratory Pattern Normal Blood Pressure 146/77 H 146/77 H Blood Pressure [Lying] Blood Pressure [Sitting (for 1 minute prior to obtaining)] Blood Pressure [Standing (for 1 minute prior to obtaining)] Blood Pressure Mean 100 100 Blood Pressure Mean [Lying] Blood Pressure Mean [Sitting (for 1 minute prior to obtaining)] Blood Pressure Mean [Standing (for 1 minute prior to obtaining)] Blood Pressure Source Monitor Monitor Blood Pressure Position Semi-Fowlers Semi-Fowlers Blood Pressure Location Right Arm Right Arm Pulse Ox 94 94 94 Oxygen Delivery Method Room Air Room Air Room Air 09/27/24 18:42 09/27/24 20:26 09/27/24 22:00 Temperature Temperature Source Pulse Rate 91 Pulse Rate [Lying] 85 Pulse Rate [Sitting (for 1 minute prior to obtaining)] 80 Pulse Rate [Standing (for 1 minute prior to obtaining)] 87 Respiratory Rate Respiratory Effort Normal Labored Respiratory Depth Normal Respiratory Pattern Normal Blood Pressure 134/77 H Blood Pressure [Lying] 110/77 Blood Pressure [Sitting (for 1 minute prior to obtaining)] 118/82 H Blood Pressure [Standing (for 1 minute prior to obtaining)] 155/97 H Blood Pressure Mean Blood Pressure Mean [Lying] 88 Blood Pressure Mean [Sitting (for 1 minute prior to obtaining)] 94 Blood Pressure Mean [Standing (for 1 minute prior to obtaining)] 116 Blood Pressure Source Blood Pressure Position Blood Pressure Location Pulse Ox 94 Oxygen Delivery Method Room Air 09/28/24 01:33 09/28/24 06:00 09/28/24 07:20 Temperature 98.8 F Temperature Source Temporal Pulse Rate 86 Pulse Rate [Lying] Pulse Rate [Sitting (for 1 minute prior to obtaining)] Pulse Rate [Standing (for 1 minute prior to obtaining)] Respiratory Rate 17 18 Respiratory Effort Respiratory Depth Respiratory Pattern Blood Pressure 139/73 H Blood Pressure [Lying] Blood Pressure [Sitting (for 1 minute prior to obtaining)] Blood Pressure [Standing (for 1 minute prior to obtaining)] Blood Pressure Mean 95 Blood Pressure Mean [Lying] Blood Pressure Mean [Sitting (for 1 minute prior to obtaining)] Blood Pressure Mean [Standing (for 1 minute prior to obtaining)] Blood Pressure Source Monitor Blood Pressure Position Semi-Fowlers Blood Pressure Location Right Arm Pulse Ox 91 91 Oxygen Delivery Method Room Air Room Air Room Air Weight Weight: 139 lb 1 oz Body Mass Index (BMI) 27.3 Indicators for Scoring Admitted with or Primary Diagnosis of CVA/Stroke: Yes Hx of CVA/Stroke: No Modified [place] Score MRS Score at time of Evaluation: 4-Moderate/severe disability NIHSS NIHSS 1a. Level of Consciousness: 0 - Alert; keenly responsive 1b. LOC Questions: 0 - Answers BOTH questions correctly 1c. LOC Commands: 0 - Performs BOTH tasks correctly 2. Best Gaze: 0 - Normal (No nystagmus) 3. Visual: 0 - No visual loss 4. Facial Palsy: 2 - Partial paralysis (total or near-total paralysis of lower face) 5a. Left Arm: 0 - No drift; arm holds 90 (or 45) degrees for full 10 seconds 5b. Right Arm: 0 - No drift; arm holds 90 (or 45) degrees for full 10 seconds 6a. Left Le - Some effort against gravity; 6b. Right Le - No drift; leg holds 30-degree position for full 5 seconds 7. Limb Ataxia: 0 - Absent 8. Sensory: 1 - Oplo-di-rhebgvpz sensory loss; 9. Best Language: 0 - No aphasia; normal 10. Dysarthria: 1 = Nhif-ie-bodulaoa dysarthria; 11. Extinction and Inattention: 0 - No abnormality Total: 6 Stroke Questions Stroke Team Activated: No Physical Exam Const alert, oriented x3 and no apparent distress Constitutional Narrative: sitting in the recliner at the bedside General Appearance: cooperative and well kempt HEENT head/scalp atraumatic HEENT Narrative: [place]. Mucous membranes are dry. No evidence of thrush. Tongue protrudes on themidline. Eyes PERRL, EOMs intact bilaterally and no scleral icterus Eyes Narrative: No discharge from the eyes. The conjunctiva is mildly injected BL. He denies pain and DC from the eyes. Neck No nodes and no carotid bruits General: trachea midline Chest Chest: symmetrical chest wall rise Resp Resp Narrative: Decreased BS's throughout. Scattered rhonchi. Productive cough. Few coarse crackles in the bases. Effort and Inspection: able to speak in complete sentences Cardio regular rate, regular rhythm, S1 normal heart sound, S2 normal heart sound, no rub and no gallops Cardio Narrative: No ectopy. Resting HR is a little high. Systolic MM at the LLSB, apex and L axilla. PMI is deviated medial and inferiorly. GI normal to inspection, nondistended, normoactive bowel sounds, soft to palpation and non-tender GI Narrative: No guarding with palpation no CVA tenderness Extremity no calf tenderness and no pedal edema Skin no jaundice Skin Narrative: Dry skin Rashes: no rashes Hair: male pattern alopecia Neuro Neuro Narrative: Right facial droop, tongue protrudes on the midline, mild dysarthria. No visualfield cuts, pupils are equal round and reactive to light and accommodation, extraocular muscles are intact. Decreased hearing. 5/5 strength in both upperextremities. He is right-hand dominant. The left leg fell to the bed prior to5 seconds. No ataxia in the upper extremities. Could not adequately check for ataxia in the left lower extremity due to weakness of the left lower extremity. Decreased sensation in the left arm and left leg. No extinction. No aphasia. I did not ambulate him. Psych cooperative, denies hallucinations and denies suicidal ideation Psych Narrative: Got tearful talking about his family. told me that he had a son who of CVA/VA. Feels he is declining. Having trouble with his memory. Trouble sleeping at night. Appetite has been somewhat decreased. Appearance: grossly normal, appropriate and well kempt Attitude: calm and engaged Activity / Motor Behavior: appropriate eye contact; Negative for psychomotor agitation, psychomotor slowing or fidgetting Speech: normal speech Results Lab / Micro Data 09/28/24 06:24 09/28/24 06:24 Labs: Laboratory Results - last 24 hr 09/28/24 06:24: WBC 13.0 H, RBC 4.36 L, Hgb 13.0, Hct 38.9 L, MCV 89.2, MCH 29.8, MCHC 33.4, RDW Std Deviation 46.4 H, RDW Coeff of [place] 14.3, Plt Count 160,MPV 12.1 H, Immature Gran % (Auto) 0.300, Neut % (Auto) 75.3 H, Lymph % (Auto) 9.0 L, [place] % (Auto) 10.2 H, Eos % (Auto) 4.8, Baso % (Auto) 0.4, Absolute Neuts(auto) 9.8 H, Absolute Lymphs (auto) 1.17, Nucleated RBC % 0, Differential Comment SCANNED, Sodium 138, Potassium 3.8, Chloride 105, Carbon Dioxide 23.4, Anion Gap 9, BUN 17, Creatinine 0.91, Estim Creat Clear Calc 43.83 L, Est GFR (MDRD) Non-Af 81, BUN/Creatinine Ratio 18.5, Glucose 108 H, Calcium 8.9, Phosphorus 2.1 L, Magnesium 1.6, Total Bilirubin 0.68, AST 20, ALT 16, Alkaline Phosphatase 75, Total Protein 6.1, Albumin 3.2 L, Globulin 3.0, Albumin/GlobulinRatio 1.1 Assessment & Plan Assessment/Plan (1) Debility: (2) Acute ischemic right MCA stroke: (3) Left leg weakness: (4) Facial droop: (5) Cognitive dysfunction: PLAN: Scored 23/30 on the MOCA (6) Paresthesias: PLAN: Left arm and leg (7) Fall: QUALIFIERS: Encounter type: initial encounter Qualified Code(s): W19.XXXA - Unspecified fall, initial encounter (8) Inferior pubic ramus fracture: QUALIFIERS: Encounter type: initial encounter Fracture type: closed Laterality: left Qualified Code(s): S32.592A - Other specified fracture of left pubis, initial encounter for closed fracture (9) Contusion of left hip: QUALIFIERS: Encounter type: initial encounter Qualified Code(s): S70.02XA - Contusion of left hip, initial encounter (10) Pain aggravated by physical activity: (11) Presbycusis: QUALIFIERS: Laterality: bilateral Qualified Code(s): 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, bilateral (12) Depression: QUALIFIERS: Depression Type: unspecified Qualified Code(s): F32.A- Depression, unspecified PLAN: Suspected (13) Leukocytosis: QUALIFIERS: Leukocytosis type: unspecified Qualified Code(s): D72.829 - Elevated white blood cell count, unspecified (14) Hypophosphatemia: (15) Productive cough: (16) GERD (gastroesophageal reflux disease): QUALIFIERS: Esophagitis presence: without esophagitis Qualified Code(s): K21.9 - Gastro-esophageal reflux disease without esophagitis (17) Esophageal stenosis: (18) History of esophageal dilatation: (19) Dyslipidemia: (20) BPH (benign prostatic hyperplasia): QUALIFIERS: Lower urinary tract symptom presence: unspecified whether lower urinary tract symptoms present Qualified Code(s): N40.0 - Benign prostatic hyperplasia without lower urinary tract symptoms (21) Essential (primary) hypertension: (22) Seizure disorder: PLAN: I spoke with his dtr and she tells me that he has had EEG's and neurology work up and he does not have a seizure disorder. He is not on any antiepileptics. PLAN: Plan PLAN PT for gait stability-weightbearing as tolerated OT for ADL's ST for evaluation-for cognition and swallowing Analgesics as needed Bowel protocol Fall precautions Assess for Anxiety/Depression GI prophylaxis -pantoprazole DVT prophylaxis with Lovenox Follow up with PCP, neurology following DC from IP Rehab AM lab including CMP, CBC, Mag and Phos Chest x-ray ordered for productive cough. Event monitor at discharge from rehab Overnight trending pulse ox Check a B12 level Recommend a DEXA as an outpatient. He has severe vitamin D deficiency and has been started on a supplement but suspect the likely has osteoporosis. At some point would like to discuss Aricept or Namenda with family. At home he has been taking Tylenol PM at bedtime to help him sleep.....this may be contributing to falls. Now he is on Melatonin 10 mg which is way above the recommended dose for his age group. Will DC Melatonin and start Remeron 7.5 mg at HS for depression, decreased appetite and insomnia. Schedule Tramadol 25 mg at 06 100, noon and 6 PM. Continue Tylenol 1 g p.o. every 8 hours. Charges/Coding Visit Charges Inpatient E&M: 02010 Init Hosp L2 09/28/24 1153 <Electronically signed by Shay Gaxiola DO> Cosigner Signature (if applicable): CC: Dr. Nimisha Oseguera MD; Dr. Shay Gaxiola DO~ Signed [facility] Work Phone: [phone] History and physical note [facility] Medical Records Department [address] [place] [address] History & Physical Exam 09/28/24 0842 MR#: [id number] Acct: [id number] Name: AYESHA JACOBSEN Rep #:[id number] : 1935 89 From: Shay Gaxiola DO PCP: Dr. Nimisha Oseguera MD Status:ADM I N Location: [place] [address] HPI - General General Date of Admission: 09/27/24 Date of Service: 09/28/24 HPI Narrative AYESHA JACOBSEN, is a 89 YO M with a PMH of hypertension, seizure disorder, vertigo, asthma, BPH withurine retention, history of colectomy, GERD, esophageal stenosis , OA and chronic debility who presented to the ED at [facility] on 09/24/24 c/o pain in the L hip after a fall. He was unable to ambulate. Plain x-ray showed no evidence of acute fracture of the left hip. CT scan of the pelvis showed an acutenondisplaced fracture of the left inferior pubic ramus and fracture of the anterior inferior left acetabular wall. There was no dislocation. He was admitted to the hospitalist service for pain management andconsult with case management for disposition at [place]. PT/OT were consulted. On 09/25/24 he was noted to have focl weakness of the LLE that exceeded what would be expected with pelvic fracture. AnMRI of the brain was obtained and showed small acute right MCA scattered infarcts. He was started on dual antiplatelet agents and atorvastatin 40 mg daily. LDL was checked and was 103 and his hemoglobin A1c was 5.4. The HDL was 59. Tele-neurology was consulted and recommended a transthoracic echocardiogram and carotid ultrasound. After 21 days Plavix could be discontinued. An event monitor was recommended at discharge. TTE showed normal left ventricular size with an ejection fraction of55%. Both atria were of normal size. There was mild aortic stenosis and mild TR and MR. Carotid ultrasound showed less than 50% stenosis and both extracranial internal carotids. He was transferred to the acute inpatient rehabunit at [facility] on 09/27/2024 with a diagnosis of poststroke debility. He will have 3 hours of therapy daily to restore function/independence at or near his level prior to recent events. Nursing reports that last night he was restless, confused and painful. He has had 2 postvoid residuals and they are 128 and 184. He had 75 to 100% of his breakfast today. Blood pressure since arrival on rehab has ranged from 110/77 to 146/77. Heart rate has ranged from 75-91. Pulse ox on room air is ranged from 91 to 94%. Medication list was reviewed. Pain medication includes only Tylenol 1 g p.o. every 8 hours scheduled All lab drawn this morning was personally reviewed. The white blood cell count is elevated at 13. He has a mild left shift with 75% neutrophils. Hemoglobin is stable at 13. Platelets are within normal limits. The sodium is 138 and thepotassium is 3.8. BUN is down to 17 following hydration and the creatinine is stable at 0.91. GFR is 81 and the creatinine clearance is 43.8. Phosphorus is low at 2.1 and the magnesium is borderline low at 1.6. LFTs are unremarkable. Vitamin D level done on 09/25/2024 was very low at 9.4. TSH was 0.49. [facility] Medical History (Updated 09/28/24 @ 11:[address] Shay Gaxiola, ) Esophageal stenosis Esophageal foreign body Tobacco dependence in remission Dyslipidemia Vitamin D deficiency History of esophageal dilatation Urinary retention BPH (benign prostatic hyperplasia) Essential (primary) hypertension Seizure disorder Urinary tract infection Dehydration Acute kidney injury Acute encephalopathy Debility Home Medications ?Medication ?Instructions ?Recorded ?Last Taken ?Type omeprazole 20 mg capsule,delayed 40 mg PO DAILY GERD 0 01/02/16 09/27/24 History release cyanocobalamin (vitamin B-12) 500 500 mcg PO DAILY Sup plement 03/05/24 09/27/24 History mcg tablet (Vitamin B-12) meclizine 25 mg tablet 25 mg PO TID PRN PRN dizzine ss or 03/05/24 Unknown History vertigo tamsulosin 0.4 mg capsule 0.4 mg PO DAILY Bladder 02/0609/27/24 History acetaminophen 500 mg tablet 1,000 mg (2 x 500 mg) PO Q 6H PRN 03/11/24 Unknown Rx Held on 09/27/24. PRN Pain Score 1-10 #0 tabs Instructions: Until restarted acetaminophen 500 mg tablet 1,000 mg (2 x 500 mg) PO Q 8 pain 09/27/24 09/27/24 Rx #0 tabs aspirin 81 mg chewable tablet 81 mg PO DAILYCM Heart h ealth #0 09/27/24 09/27/24 Rx tabs atorvastatin 40 mg tablet 40 mg PO QHS cholestrol #0 t abs 09/27/24 09/26/24 Rx clopidogrel 75 mg tablet 75 mg PO DAILY Anti platelet s #0 09/27/24 09/27/24 Rx tabs ergocalciferol (vitamin D2) 1,250 1,250 mcg PO Q7D@100 0 supplement 09/27/24 09/26/24 Rx mcg (50,000 unit) capsule (Vitamin #0 caps D2) food supplemt, lactose-reduced 120 ml PO 4X/DAY supple ment #0 mL 09/27/24 09/27/24 Rx 0.08 gram-1.5 kcal/mL oral liquid (Ensure Plus High Protein) heparin (porcine) 5,000 unit/mL 5,000 unit subcut Q12 blood 09/27/24 09/27/24 Rx injection solution thinner #0 mL lisinopril 10 mg tablet 10 mg PO DAILY BP #0 tabs 09/27/24 Rx melatonin 10 mg sublingual tablet 10 mg PO QHS sleep # 0 tabs 09/27/24 09/26/24 Rx metoprolol tartrate 25 mg tablet 25 mg PO BID BP #0 ta bs 09/27/24 09/27/24 Rx sennosides 8.6 mg-docusate sodium 2 tab PO BID stool s oftner #0 tabs 09/27/24 09/27/24 Rx 50 mg tablet (Stimulant Laxative Plus) Allergy/AdvReac Type Severity Reaction Status Date / Time egg Allergy Anaphylaxis Verified 09/24/24 18:40 Family History Mother Colon cancer Father Cancer Surgical History History of colectomy History of left inguinal hernia repair History of esophagogastroduodenoscopy (EGD) Social History (Updated 09/28/24 @ 11:[address] Shay Gaxiola, ) household members: spouse and other details: 's name is Dexter housing: house number of children: 6 Smoking Status: Former smoker how long ago did patient quit smokin years ago alcohol intake: never substance use type: does not use ROS ROS Narrative ROS is difficult. He has a hard time hearing and is not always answering the question I asked him. Answers sometimes tangential. Constitutional Constitutional: Reports difficulty sleeping, fatigue, malaise, weakness and other Details: tells methat he does not eat as much as he used to. Has lost a little weight. ; Denies anorexia, change in weight, chills, fever(s) or night sweats Eyes Eyes: Denies blurry vision, change in vision, eye pain or loss of vision ENT HEENT: Reports abnormal hearing, headache(s) and hearing loss; Denies dysphagia,nasal congestion orsore throat Cardiovascular Cardiovascular: Reports chest pain; Denies dyspnea on exertion, edema, lightheadedness, orthopnea, palpitations, paroxysmal nocturnal dyspnea or syncope Respiratory/Chest Respiratory/Chest: Reports chest congestion, cough, excessive phlegm production,productive cough and wheezing; Denies dyspnea, hemoptysis, shortness of breath at rest, shortness of breath with exertion or tachypnea Gastrointestinal Gastrointestinal: Denies abdominal pain, constipation, diarrhea, dyspepsia, hematemesis, hematochezia, nausea or vomiting Genitourinary Genitourinary: Denies dysuria, hematuria, nocturia, urinary frequency, urinary hesitancy, urinary incontinence or urinary urgency Musculoskeletal Musculoskeletal: Reports difficulty walking and other Details: pelvic pain ; Denies back pain, joint pain, joint swelling or neck pain Integumentary Integumentary: Reports dry skin; Denies jaundice, pruritus, rash or sores Neurologic Neurologic: Reports confusion, focal weakness, headache(s), weakness and other Details: Tells me that he has been having problems with memory that predate the recent stroke. ; Denies disequilibrium, dizziness, paresthesias, radicular pain, restless legs, seizures, tremor(s) or vertigo Psychiatric Psychiatric: Reports cognitive impairment, depression and memory loss; Denies anxiety, homicidal ideation, suicidal ideation or visual hallucinations Endocrine Endocrinology: Denies change in body appearance, polydipsia or polyuria Hematologic/Lymphatic Hematologic/Lymphatic: Denies easy bleeding, easy bruising or lymphadenopathy Allergic/Immunologic Allergic/Immunologic: Reports wheezing and asthma; Denies itchy eyes, rhinitis, tongue swelling, hives, urticaria or eczemia Vital Signs Vital Signs Vital Signs: 09/27/24 17:43 09/27/24 17:53 09/27/24 18:00 Temperature 98.6 F 98.6 F Temperature Source Temporal Temporal Pulse Rate 75 75 Pulse Rate [Lying] Pulse Rate [Sitting (for 1 minute prior to obtaining)] Pulse Rate [Standing (for 1 minute prior to obtaining)] Respiratory Rate 16 16 Respiratory Effort Normal Non-Labored Respiratory Depth Normal Respiratory Pattern Normal Blood Pressure 146/77 H 146/77 H Blood Pressure [Lying] Blood Pressure [Sitting (for 1 minute prior to obtaining)] Blood Pressure [Standing (for 1 minute prior to obtaining)] Blood Pressure Mean 100 100 Blood Pressure Mean [Lying] Blood Pressure Mean [Sitting (for 1 minute prior to obtaining)] Blood Pressure Mean [Standing (for 1 minute prior to obtaining)] Blood Pressure Source Monitor Monitor Blood Pressure Position Semi-Fowlers Semi-Fowlers Blood Pressure Location Right Arm Right Arm Pulse Ox 94 94 94 Oxygen Delivery Method Room Air Room Air Room Air 09/27/24 18:42 09/27/24 20:26 09/27/24 22:00 Temperature Temperature Source Pulse Rate 91 Pulse Rate [Lying] 85 Pulse Rate [Sitting (for 1 minute prior to obtaining)] 80 Pulse Rate [Standing (for 1 minute prior to obtaining)] 87 Respiratory Rate Respiratory Effort Normal Labored Respiratory Depth Normal Respiratory Pattern Normal Blood Pressure 134/77 H Blood Pressure [Lying] 110/77 Blood Pressure [Sitting (for 1 minute prior to obtaining)] 118/82 H Blood Pressure [Standing (for 1 minute prior to obtaining)] 155/97 H Blood Pressure Mean Blood Pressure Mean [Lying] 88 Blood Pressure Mean [Sitting (for 1 minute prior to obtaining)] 94 Blood Pressure Mean [Standing (for 1 minute prior to obtaining)] 116 Blood Pressure Source Blood Pressure Position Blood Pressure Location Pulse Ox 94 Oxygen Delivery Method Room Air 09/28/24 01:33 09/28/24 06:00 09/28/24 07:20 Temperature 98.8 F Temperature Source Temporal Pulse Rate 86 Pulse Rate [Lying] Pulse Rate [Sitting (for 1 minute prior to obtaining)] Pulse Rate [Standing (for 1 minute prior to obtaining)] Respiratory Rate 17 18 Respiratory Effort Respiratory Depth Respiratory Pattern Blood Pressure 139/73 H Blood Pressure [Lying] Blood Pressure [Sitting (for 1 minute prior to obtaining)] Blood Pressure [Standing (for 1 minute prior to obtaining)] Blood Pressure Mean 95 Blood Pressure Mean [Lying] Blood Pressure Mean [Sitting (for 1 minute prior to obtaining)] Blood Pressure Mean [Standing (for 1 minute prior to obtaining)] Blood Pressure Source Monitor Blood Pressure Position Semi-Fowlers Blood Pressure Location Right Arm Pulse Ox 91 91 Oxygen Delivery Method Room Air Room Air Room Air Weight Weight: 139 lb 1 oz Body Mass Index (BMI) 27.3 Indicators for Scoring Admitted with or Primary Diagnosis of CVA/Stroke: Yes Hx of CVA/Stroke: No Modified [place] Score MRS Score at time of Evaluation: 4-Moderate/severe disability NIHSS NIHSS 1a. Level of Consciousness: 0 - Alert; keenly responsive 1b. LOC Questions: 0 - Answers BOTH questions correctly 1c. LOC Commands: 0 - Performs BOTH tasks correctly 2. Best Gaze: 0 - Normal (No nystagmus) 3. Visual: 0 - No visual loss 4. Facial Palsy: 2 - Partial paralysis (total or near-total paralysis of lower face) 5a. Left Arm: 0 - No drift; arm holds 90 (or 45) degrees for full 10 seconds 5b. Right Arm: 0 - No drift; arm holds 90 (or 45) degrees for full 10 seconds 6a. Left Le - Some effort against gravity; 6b. Right Le - No drift; leg holds 30-degree position for full 5 seconds 7. Limb Ataxia: 0 - Absent 8. Sensory: 1 - [place]-rl-afrswqik sensory loss; 9. Best Language: 0 - No aphasia; normal 10. Dysarthria: 1 = Ldiv-qw-vsekkxoy dysarthria; 11. Extinction and Inattention: 0 - No abnormality Total: 6 Stroke Questions Stroke Team Activated: No Physical Exam Const alert, oriented x3 and no apparent distress Constitutional Narrative: sitting in the recliner at the bedside General Appearance: cooperative and well kempt HEENT head/scalp atraumatic HEENT Narrative: [place]. Mucous membranes are dry. No evidence of thrush. Tongue protrudes on themidline. Eyes PERRL, EOMs intact bilaterally and no scleral icterus Eyes Narrative: No discharge from the eyes. The conjunctiva is mildly injected BL. He denies pain and DC from the eyes. Neck No nodes and no carotid bruits General: trachea midline Chest Chest: symmetrical chest wall rise Resp Resp Narrative: Decreased BS's throughout. Scattered rhonchi. Productive cough. Few coarse crackles in the bases. Effort and Inspection: able to speak in complete sentences Cardio regular rate, regular rhythm, S1 normal heart sound, S2 normal heart sound, no rub and no gallops Cardio Narrative: No ectopy. Resting HR is a little high. Systolic MM at the LLSB, apex and L axilla. PMI is deviatedmedial and inferiorly. GI normal to inspection, nondistended, normoactive bowel sounds, soft to palpation and non-tender GI Narrative: No guarding with palpation no CVA tenderness Extremity no calf tenderness and no pedal edema Skin no jaundice Skin Narrative: Dry skin Rashes: no rashes Hair: male pattern alopecia Neuro Neuro Narrative: Right facial droop, tongue protrudes on the midline, mild dysarthria. No visualfield cuts, pupils are equal round and reactive to light and accommodation, extraocular muscles are intact. Decreased hearing. 5/5 strength in both upperextremities. He is right-hand dominant. The left leg fell to the bed prior to5 seconds. No ataxia in the upper extremities. Could not adequately check for ataxia in the left lower extremity due to weakness of the left lower extremity. Decreased sensation in the left arm and left leg. No extinction. No aphasia. I did not ambulate him. Psych cooperative, denies hallucinations and denies suicidal ideation Psych Narrative: Got tearful talking about his family. told me that he had a son who of CVA/VA. Feels he is declining. Having trouble with his memory. Trouble sleeping at night. Appetite has been somewhat decreased. Appearance: grossly normal, appropriate and well kempt Attitude: calm and engaged Activity / Motor Behavior: appropriate eye contact; Negative for psychomotor agitation, psychomotorslowing or fidgetting Speech: normal speech Results Lab / Micro Data 09/28/24 06:24 09/28/24 06:24 Labs: Laboratory Results - last 24 hr 09/28/24 06:24: WBC 13.0 H, RBC 4.36 L, Hgb 13.0, Hct 38.9 L, MCV 89.2, MCH 29.8, MCHC 33.4, RDW Std Deviation 46.4 H, RDW Coeff of Brook 14.3, Plt Count 160,MPV 12.1 H, Immature Gran % (Auto) 0.300, Neut % (Auto) 75.3 H, Lymph % (Auto) 9.0 L, Hancock % (Auto) 10.2 H, Eos % (Auto) 4.8, Baso % (Auto) 0.4, Absolute Neuts(auto) 9.8 H, Absolute Lymphs (auto) 1.17, Nucleated RBC % 0, Differential Comment SCANNED, Sodium 138, Potassium 3.8, Chloride 105, Carbon Dioxide 23.4, Anion Gap 9, BUN 17, Creatinine 0.91, Estim Creat Clear Calc 43.83 L, Est GFR (MDRD) Non-Af 81, BUN/Creatinine Ratio 18.5, [id number] H, Calcium 8.9, Phosphorus 2.1 L, Magnesium 1.6, Total Bilirubin 0.68, AST 20, ALT 16, AlkalinePhosphatase 75, Total Protein 6.1, Albumin 3.2 L, Globulin 3.0, Albumin/GlobulinRatio 1.1 Assessment & Plan Assessment/Plan (1) Debility: (2) Acute ischemic right MCA stroke: (3) Left leg weakness: (4) Facial droop: (5) Cognitive dysfunction: PLAN: Scored 23/30 on the MOCA (6) Paresthesias: PLAN: Left arm and leg (7) Fall: QUALIFIERS: Encounter type: initial encounter Qualified Code(s): W19.XXXA - Unspecified fall, initial encounter (8) Inferior pubic ramus fracture: QUALIFIERS: Encounter type: initial encounter Fracture type: closed Laterality: left Qualified Code(s): S32.592A - Other specified fracture of left pubis, initial encounter for closed fracture (9) Contusion of left hip: QUALIFIERS: Encounter type: initial encounter Qualified Code(s): S70.02XA - Contusion of left hip, initial encounter (10) Pain aggravated by physical activity: (11) Presbycusis: QUALIFIERS: Laterality: bilateral Qualified Code(s): 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, bilateral (12) Depression: QUALIFIERS: Depression Type: unspecified Qualified Code(s): F32.A- Depression, unspecified PLAN: Suspected (13) Leukocytosis: QUALIFIERS: Leukocytosis type: unspecified Qualified Code(s): D72.829 - Elevated white blood cell count, unspecified (14) Hypophosphatemia: (15) Productive cough: (16) GERD (gastroesophageal reflux disease): QUALIFIERS: Esophagitis presence: without esophagitis Qualified Code(s): K21.9 - Gastro-esophageal reflux disease without esophagitis (17) Esophageal stenosis: (18) History of esophageal dilatation: (19) Dyslipidemia: (20) BPH (benign prostatic hyperplasia): QUALIFIERS: Lower urinary tract symptom presence: unspecified whether lower urinary tract symptoms present Qualified Code(s): N40.0 - Benign prostatic hyperplasia without lower urinary tract symptoms (21) Essential (primary) hypertension: (22) Seizure disorder: PLAN: I spoke with his dtr and she tells me that he has had EEG's and neurology work up and he doesnot have a seizure disorder. He is not on any antiepileptics. PLAN: Plan PLAN PT for gait stability-weightbearing as tolerated OT for ADL's ST for evaluation-for cognition and swallowing Analgesics as needed Bowel protocol Fall precautions Assess for Anxiety/Depression GI prophylaxis -pantoprazole DVT prophylaxis with Lovenox Follow up with PCP, neurology following DC from IP Rehab AM lab including CMP, CBC, Mag and Phos Chest x-ray ordered for productive cough. Event monitor at discharge from rehab Overnight trending pulse ox Check a B12 level Recommend a DEXA as an outpatient. He has severe vitamin D deficiency and has been started on a supplement but suspect the likely has osteoporosis. At some point would like to discuss Aricept or Namenda with family. At home he has been taking Tylenol PM at bedtime to help him sleep.....this may be contributing to falls. Now he is on Melatonin 10 mg which is way above the recommended dose for his age group. Will DC Melatonin and start Remeron 7.5 mg at HS for depression, decreased appetite and insomnia. Schedule Tramadol 25 mg at 06 100, noon and 6 PM. Continue Tylenol 1 g p.o. every 8 hours. Charges/Coding Visit Charges Inpatient E&M: 23882 Init Hosp L2 09/28/24 1151 Cosigner Signature (if applicable): CC: Dr. Nimisha Oseguera MD; Dr. Shay Gaxiola DO~ Signed [facility]05-24-2025 Radiology Diagnostic study note [facility] [place] Imaging Services [address] [place] [id number] Chest PA and Lateral MR#: [id number] Acct: [id number] Name: AYESHA JACOBSEN Rep #: [id number] : 1935 M 89 From: Shauna Le MD PCP: Dr. Nimisha Oseguera MD Status: ADM I N Study:Chest PA and Lateral Date of Exam: 09/28/24 Exam# [id number] Ordering Dr: Shay Gaxiola DO PROCEDURE: CHEST PA AND LATERAL 09/28/2024 REASON FOR EXAM: COUGH TECHNIQUE: Frontal and lateral views of the chest. FINDINGS: No focal consolidations. Mild pulmonary vascular congestion. Bibasilar subsegmental atelectasis. Nopleural effusion or pneumothorax. Atherosclerotic aortic arch. Cardiac silhouette is within normal limits. Abif-[id number] hiatal hernia. No acute fractures. RAD/Chest PA and Lateral IMPRESSION: Mild pulmonary vascular congestion. No focal consolidation. Bibasilar subsegmental atelectasis. Wtdb-[id number]-wrgfcmea hiatal hernia. Reading Location: [facility] CC: Dr. Nimisha Oseguera MD; Dr. Shay Gaxiola DO ~ Machine Bobbin Winder: Signed [facility]05-24-2025 [facility]05-23-2025 [facility]05-21-2025 Evaluation note* Diagnosis Onset Date Resolution Status Admit Date Contusion of left hip acute September 24, 2024 11:44pm Debility acute September 24, 2024 11:44pm Inferior pubic ramus fracture acute September 24, 2024 11:44pm Vitamin D deficiency acute September 24, 2024 11:44pm Elevated serum creatinine resolved September 24, 2024 11:44pm Leukocytosis resolved September 24 11:44pm Acute ischemic right MCA stroke inac tive September 24, 2024 11:44pm Fall inactive September 24, 2024 11:44pm Inability to ambulate due to hip del eted September 24, 2024 11:44pm BPH (benign prostatic hyperplasia) acute September 27, 2024 5 :26pm Contusion of left hip acute September 27, 2024 5:26pm Debility acute September 27, 2024 5:26pm Dyslipidemia acute September 27 5:26pm Esophageal stenosis acute September 062024 5:26pm Facial droop acute September 27 5:26pm Heme + stool acute September 27 5:26pm Hypophosphatemia acute September 5:26pm Inferior pubic ramus fracture acute September 27, 2024 5:26pm Left leg weakness acute September 5:26pm Microscopic hematuria acute September 27, 2024 5:26pm Pain aggravated by physical activity acute September 27, 2024 5 :26pm Paresthesias acute September 27 5:26pm Presbycusis acute September 27 5:26pm Productive cough acute September 5:26pm Seizure disorder acute September 5:26pm Aspiration into trachea chronic M ay 2024 5:26pm Cognitive dysfunction chronic September 27, 2024 5:26pm Dementia with behavioral disturbance chronic September 27, 2024 5 :26pm Eosinophilia, unspecified chronic September 27, 2024 5:26pm Essential (primary) hypertension chr onic September 27, 2024 5:26pm GERD (gastroesophageal reflu x disease) chronic September 27, 2024 5 :26pm 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 associated with sleep housekeeper nanny morgan September 27, 2024 5:26pm Mild aortic stenosis chronic September 27, 2024 5:26pm Oropharyngeal dysphagia chronic M ay 2024 5:26pm Urinary retention chronic September 5:26pm Depression suspected September 27, 2024 5:26pm Acute bronchitis resolved September 5:26pm Conjunctivitis resolved September 27, 2024 5:26pm Fever resolved September 27, 2024 5:26pm Leukocytosis resolved September 27 5:26pm Acute ischemic right MCA stroke inac tive September 27, 2024 5:26pm Fall inactive September 27, 2024 5:26pm History of esophageal dilatation brii ctive September 27, 2024 5:26pm [facility] Work Phone: 1(440) 289-822205-20-2025 Radiology Diagnostic study note [facility] [place] Imaging Services [address] [place] [address] HIP, UNI W/ Pelvis 2-3 Views MR#: [id number] Acct: [id number] Name: AYESHA JACOBSEN Rep #: [id number] : 1935 M 89 From: Ernesto Bolanos MD PCP: Dr. Nimisha Oseguera MD Status: REG E R Study:HIP, UNI W/ Pelvis 2-3 Views Date of Ex am: 09/24/24 Exam# [id number] Ordering Dr: Gerardo Duque DO PROCEDURE: HIP, UNI W/ PELVIS 2-3 VIEWS 09/24/2024 REASON FOR EXAM: INJURY TECHNIQUE: 3 views of the 3 hip COMPARISON: None. FINDINGS: Bones: No evidence of acute fracture. Loss of sphericity of the femoral heads. Joints: Mild axial joint space narrowing. Soft tissues: Dense rectal stool. Other: None. RAD/HIP, UNI W/ Pelvis 2-3 Views IMPRESSION: Loss of sphericity of the femoral heads. 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 Reading Location: [place] [address] CC: Dr. Nimisha Oseguera MD; Dr. Gerardo Duque DO ~ Machine Bobbin Winder: Signed [facility]05-20-2025 Evaluation note* Diagnosis Onset Date Resolution Status Admit Date Contusion of left hip acute September 24, 2024 11:44pm Debility acute September 24, 2024 11:44pm Fall acute September 24, 2024 11:44pm Inability to ambulate due to hip acu te September 24, 2024 11:44pm [facility] Work Phone: 1(865) 841-924405-15-2025 Instructions* Patient Instructions* Nimisha Oseguera MD - 09/19/2024 10:20 AM EDT We discussed your urinary incontinence and related symptoms: - You are experiencing urinary incontinence, including dribbling, urgency, and occasional accidents, particularly when getting up from a sitting position. You also report a weaker urine stream, occasional difficulty starting urination, and needing to urinate in two stages. - You are currently taking Tamsulosin to help with urination. Please continue this medication as prescribed. - I am referring you to a urologist for further evaluation. They will perform specialized tests, including a urodynamic study, to assess the cause of your symptoms and determine the best treatment options. This may include medications such as Trospium or Finasteride, depending on the findings. - A PSA (prostate-specific antigen) blood test has been ordered to check for any prostate-related issues. Please complete this test at the lab downstairs today. We discussed managing your incontinence in the meantime: - Continue wearing incontinence underwear to help manage accidents and keep you comfortable and dry. - If you experience worsening symptoms, such as increased difficulty urinating, more frequent accidents, or significant discomfort, please let us know. Follow-up: - Please schedule an appointment with the urologist as soon as possible. They will guide the next steps in your care. - We will review your PSA test results once they are available and discuss any additional recommendations if needed. Let us know if you have any questions or concerns before your urology appointment. documented in this encounterCleveland Clinic Foundation05-15-2025 NoteHNO ID: [id number] Author: NIMISHA OSEGUERA MD Service: ? Author Type: Physician Type: Progress Notes Filed: 09/19/2024 12:14 Note Text: Reason for Visit Follow up EDDIE Clark is a 89-year-old male presenting with urinary incontinence. Ayesha reports urinary incontinence for at least a few months, possibly up to a year, with episodes occurring almost daily. The incontinence is described as small amounts of leakage, primarily when transitioning from a sitting to a standing position. He is uncertain if it occurs during coughing. He wears a pad, which provides some assistance. He occasionally experiences nocturnal enuresis, but it is not frequent. He takes Tylenol with a sleep aid at night. He notes a decrease in urinary stream force and occasional difficulty initiating micturition. He reports post-void dribbling and sometimes urinates in two stages, with the second stage occurring involuntarily. He is currently on tamsulosin. He denies a history of prostate cancer. Social History Tobacco Use Smoking status: Former Current packs/day: 0.00 Average packs/day: 1 pack/day for 25.0 years (25.0 ttl pk-yrs) Types: Cigarettes Start date: 06/02/1952 Quit date: 06/02/1977 Years since quittin.3 Smokeless tobacco: Never Vaping Use Vaping status: Never Used Substance Use Topics Alcohol use: No Drug use: No Past medical history, appointments, medications, allergies reviewed. Pertinent Lab/Diagnostic Studies are reviewed and discussed today Current Outpatient Medications: tamsulosin (FLOMAX) 0.4 mg omeprazole (PRILOSEC) 20 mg capsule cyanocobalamin, vitamin B-12, (VITAMIN B-12 ORAL) OMEPRAZOLE (PRILOSEC ORAL) Health Maintenance DTaP,Tdap,Td Vaccine(1 - Tdap) Shingrix Vaccine(1 of 2) Pneumococcal Vaccine: 50+(1 of 1 - PCV) RSV Vaccine(1 - 1-dose 75+ series)@ Review Of Systems Ears/Nose/Mouth/Throat: (+) hearing changes Genitourinary: (+) urinary incontinence, (+) dribbling, (+) decreased stream, (+) urinary hesitancy, (+) incomplete emptying, (+) urinary urgency, (-) bedwetting Physical Exam BP 134/81 Pulse 102 Resp 16 Wt 64.4 kg (142 lb) SpO2 96% BMI 23.63 kg/m? GENERAL: NAD, alert and oriented SKIN: Unremarkable, no rash or skin lesions. HEAD: Normocephalic EYES: PERRLA, EOMI, conjunctiva clear LUNGS: Clear to auscultation bilaterally, no wheezes/rhonchi/rales. HEART: Regular rate and rhythm, no murmurs. No ectopy. EXTREMITIES: Normal, no deformities, no skin discoloration, no edema. NEURO: Awake, alert and oriented x3, cranial nerves II-XII grossly intact, normal gait, no involuntary motions Assessment and Plan 1. Prostate cancer screening (Z12.5) Patient has not had a recent PSA test. Ordered PSA test. 2. Benign prostatic hyperplasia with post-void dribbling (N40.1) Dribbling (N39.43) Decreased urine stream (R39.198) Patient experiences post-void dribbling and a decreased urine stream. Currently on tamsulosin. - Continue tamsulosin. - Referred to urology for further evaluation and management. 3. Urge incontinence (N39.41) Stress incontinence (N39.3) Urinary incontinence, unspecified type (R32) Patient experiences urge and stress incontinence, with episodes of urinary leakage when getting up from a sitting position and occasional nocturnal incontinence. Symptoms have been present for at least a few months to a year. - Referred to urology for urodynamic studies to determine the specific type of incontinence and appropriate treatment. - Discussed potential medications such as trospium and finasteride, but will await urologist's evaluation. - Advised patient to continue wearing incontinence pads to manage leakage. Voice recognition software was used to compose this office note. Please excuse any unintended typographical errors. Recording using Contextool software for draft documentation of the visit was discussed with the patient/authorized hostess party sales representative; all questions welcomed and answered. Patient/authorized hostess party sales representative agreed to proceed Nimisha Oseguera [facility]05-15-2025 History of Present illness Narrative* Nimisha Oseguera MD - 09/19/2024 10:01 AM EDT Reason for Visit Follow up EDDIE Clark is a 89-year-old male presenting with urinary incontinence. Ayesha reports urinary incontinence for at least a few months, possibly up to a year, with episodesoccurring almost daily. The incontinence is described as small amounts of leakage, primarily when transitioning from a sitting to a standing position. He is uncertain if it occurs during coughing. Hewears a pad, which provides some assistance. He occasionally experiences nocturnal enuresis, but itis not frequent. He takes Tylenol with a sleep aid at night. He notes a decrease in urinary stream force and occasional difficulty initiating micturition. He reports post-void dribbling and sometimes urinates in two stages, with the second stage occurring involuntarily. He is currently on tamsulosin. He denies a history of prostate cancer. Social History Tobacco Use Smoking status: Former Current packs/day: 0.00 Average packs/day: 1 pack/day for 25.0 years (25.0 ttl pk-yrs) Types: Cigarettes Start date: 06/02/1952 Quit date: 06/02/1977 Years since quittin.3 Smokeless tobacco: Never Vaping Use Vaping status: Never Used Substance Use Topics Alcohol use: No Drug use: No Past medical history, appointments, medications, allergies reviewed. Pertinent Lab/Diagnostic Studies are reviewed and discussed today Current Outpatient Medications: tamsulosin (FLOMAX) 0.4 mg omeprazole (PRILOSEC) 20 mg capsule cyanocobalamin, vitamin B-12, (VITAMIN B-12 ORAL) OMEPRAZOLE (PRILOSEC ORAL) Health Maintenance DTaP,Tdap,Td Vaccine(1 - Tdap) Shingrix Vaccine(1 of 2) Pneumococcal Vaccine: 50+(1 of 1 - PCV) RSV Vaccine(1 - 1-dose 75+ series)@ Review Of Systems Ears/Nose/Mouth/Throat: (+) hearing changes Genitourinary: (+) urinary incontinence, (+) dribbling, (+) decreased stream, (+) urinary hesitancy, (+) incomplete emptying, (+) urinary urgency, (-) bedwetting Physical Exam BP 134/81 Pulse 102 Resp 16 Wt 64.4 kg (142 lb) SpO2 96% BMI 23.63 kg/m GENERAL: NAD, alert and oriented SKIN: Unremarkable, no rash or skin lesions. HEAD: Normocephalic EYES: PERRLA, EOMI, conjunctiva clear LUNGS: Clear to auscultation bilaterally, no wheezes/rhonchi/rales. HEART: Regular rate and rhythm, no murmurs. No ectopy. EXTREMITIES: Normal, no deformities, no skin discoloration, no edema. NEURO: Awake, alert and oriented x3, cranial nerves II-XII grossly intact, normal gait, no involuntary motions Assessment and Plan 1. Prostate cancer screening (Z12.5) Patient has not had a recent PSA test. Ordered PSA test. 2. Benign prostatic hyperplasia with post-void dribbling (N40.1) Dribbling (N39.43) Decreased urine stream (R39.198) Patient experiences post-void dribbling and a decreased urine stream. Currently on tamsulosin. - Continue tamsulosin. - Referred to urology for further evaluation and management. 3. Urge incontinence (N39.41) Stress incontinence (N39.3) Urinary incontinence, unspecified type (R32) Patient experiences urge and stress incontinence, with episodes of urinary leakage when getting up from a sitting position and occasional nocturnal incontinence. Symptoms have been present for at least a few months to a year. - Referred to urology for urodynamic studies to determine the specific type of incontinence and appropriate treatment. - Discussed potential medications such as trospium and finasteride, but will await urologist's evaluation. - Advised patient to continue wearing incontinence pads to manage leakage. Voice recognition software was used to compose this office note. Please excuse any unintended typographical errors. Recording using ambient AI software for draft documentation of the visit was discussed with the patient/authorized hostess party sales representative; all questions welcomed and answered. Patient/authorized hostess party sales representative agreed to proceed Nimisha Oseguera MD documented in this encounterCleveland Clinic Foundation05-03-2025 Telephone encounter Note * Telephone Encounter - Aida Pruitt LPN - 09/07/2024 10:31 AM EDT Spoke with Bobby Henderson and it was picked up on 09/06/24 [facility]05-03-2025 Miscellaneous Notes* Telephone Encounter - Aida Pruitt LPN - 09/07/2024 10:31 AM EDT Spoke with Bobby Henderson and it was picked up on 09/06/24 * Telephone Encounter - Michelle Melo - 09/06/2024 2:43 PM EDT Daughter states that they are waiting on script. It shows it was sent 09-02-24, but they do not have it. * Telephone Encounter - Michelle Melo - 09/06/2024 2:42 PM EDT Prescription Refill Information The patient has been identified by name and date of : Yes Caregiver verified no other encounters exist for this prescription request: No Caregiver confirmed with patient/requestor that no other refills are due, in the near future, with this provider at this time: Yes The last office visit in the department: 09-02-24 Does the patient have a future office visit with this provider/department: Yes Requested Prescriptions Pending Prescriptions Disp Refills tamsulosin (FLOMAX) 0.4 mg 90 capsule 3 Sig: Take 1 capsule by mouth every afternoon. Michelle Clark September 06, 2024 2:42 PM documented in this encounterCleveland Clinic [facility]05-02-2025 Telephone encounter Note * Telephone Encounter - Michelle Melo - 09/06/2024 2:43 PM EDT Daughter states that they are waiting on script. It shows it was sent 09-02-24, but they do not have it. [facility] Work Phone: [phone]) [phone] Telephone encounter Note* Telephone Encounter - Michelle Melo - 09/06/2024 2:42 PM EDT Prescription Refill Information The patient has been identified by name and date of : Yes Caregiver verified no other encounters exist for this prescription request: No Caregiver confirmed with patient/requestor that no other refills are due, in the near future, with this provider at this time: Yes The last office visit in the department: 09-02-24 Does the patient have a future office visit with this provider/department: Yes Requested Prescriptions Pending Prescriptions Disp Refills tamsulosin (FLOMAX) 0.4 mg 90 capsule 3 Sig: Take 1 capsule by mouth every afternoon. Michelle Clark September 06, 2024 2:42 PM [facility]04-28-2025 Instructions* Patient Instructions* Nimisha Oseguera MD - 09/02/2024 4:53 PM EDT We discussed your overall health and current concerns: - Your blood pressure and cholesterol levels are excellent, and your labs look good. You are not diabetic, which is great news. No changes to your current medications are needed at this time. - Continue taking Omeprazole (Prilosec) for your esophagus and Tamsulosin as prescribed. These medications are helping to manage your conditions effectively. We discussed your balance issues and recent falls: - You mentioned feeling off balance and having difficulty walking in a straight line. You also reported a recent fall on your deck, though you have healed well from the injury. - To reduce your risk of falls, please use your cane consistently when walking. This will help provide additional stability. - Your mentioned a possible ear issue contributing to your balance problems. While there is limited treatment available for this, I will monitor your symptoms closely. Please let me know if yourbalance worsens or if you experience new symptoms such as severe dizziness or ear pain. We discussed your memory and cognitive changes: - You reported some short-term memory difficulties, such as trouble recalling words after a few minutes. You also mentioned occasional hallucinations, including seeing things that are not there (e.g., a car or bugs). - These symptoms, along with some rigidity and acting out at night, may indicate early changes in your cognitive or neurological health. At this time, we will monitor these symptoms. Please let me know if they worsen or if you experience new concerns. We discussed your activity level and diet: - You are staying active by walking, gardening, and pulling weeds, which is great. Continue these activities as tolerated, but be cautious to avoid falls. - Your diet appears to be varied, and you are eating well. Please continue to eat a balanced diet and try to limit your intake of chocolate and other sweets. Follow-up plan: - I will see you again in 6 months for a follow-up visit. Please contact our office sooner if you experience worsening balance, memory issues, or any other new or concerning symptoms. - Continue your current medications as prescribed. If you have any issues with your medications or need refills, please let us know. Thank you for coming in today. I look forward to seeing you at your next visit. documented in this encounterCleveland [facility] Foundation04-28-2025 NoteHNO ID: [id number] Author: NIMISHA OSEGUERA MD Service: ? Author Type: Physician Type: Progress Notes Filed: 09/02/2024 20:24 Note Text: Ayesha Jacobsen is a 89 year old male here for a Medicare wellness visit. Medicare Health Risk Assessment General Health Very good Exercise: Minutes/Day Not much Exercise: Days/Week See above Alcohol: Daily Use No Alcohol: Drinks/Day No Alcohol: 6 or more drinks No Feel off balance Yes Concerns: Teeth/Dentures No Concerns: Sexual function No Troubled by feelings No Frequency: Eating healthy diet Yes ADLs requiring help Mo Safety precautions in home/vehicle Yes Smoke, vape, chews tobacco no Difficulty hearing Yes Difficulty seeing Yes Current Providers Specialists: I have reviewed specialist-related care of the patient in the medical record. Medical/Family history review Reviewed and updated problem list, medical/surgical/family/social history, medications, and allergies. Opioid use review Opioid Medications (last 90 days) No data to display Anxiety/Depression screening negative Recommendation: no further intervention at this time Cognitive screening3/5 Cognitive screening reviewed and Recommended referral for further evaluation (score 0-2). Functional Observation Was the patient's Timed Up AND Go test unsteady or >= 12 seconds? Advance Care Planning Surrogate decision maker and/or advance care plan documented Measurements BP 122/84 Pulse 101 Temp 37.1 ?C (98.7 ?F) (Temporal) Resp 14 Wt 64.4 kg (142 lb) SpO2 98% BMI 23.63 kg/m? Vision Screening: Follows with optometry/ophthalmology Assessment/Plan Medicare annual wellness visit, subsequent (Z00.00) - Counseled on healthy diet and regular exercise - Fall avoidance information provided - Personalized prevention plan provided Reason for Visit Follow up EDDIE Clark is a 89-year-old male, with a history of esophageal strictures and GERD, presenting for a Medicare Annual Wellness Visit. He is accompanied by his daughter, who is providing additional history. Ayesha was last seen in February for a UTI and a possible seizure. Multiple EEGs were performed, which were inconclusive. He was prescribed Keppra 500 mg, but discontinued it due to the absence of seizure activity and normal EEG results. He is currently taking omeprazole and tamsulosin. He has a history of esophageal strictures requiring dilation, but currently denies dysphagia, odynophagia, or coughing while eating. Ayesha reports significant balance issues, describing his balance as terrible. He has experienced multiple falls, including a recent fall on [facility] where he injured his knee. He attributes his balance issues to a possible inner ear problem, as suggested by his . He denies back pain. He has also noticed a decrease in his walking speed and an inability to walk in a straight line. He remains physically active, engaging in activities such as walking around his yard, picking up sticks, and pulling weeds. He denies regular exercise due to balance issues. He is fully independent in activities of daily living, including bathing, dressing, eating, transferring, and walking. Ayesha reports occasional hallucinations, such as seeing a car between a cano and a tree that was not there. He also experiences visual disturbances, describing floaters and skinny things moving in his peripheral vision, which he attributes to cataract surgery. He denies tremors. His daughter notes changes in his short-term memory and sleep behavior, including talking and moving in hissleep. Ayesha has a history of smoking for approximately 30 years, starting at age 19 and quitting in 1976. He denies alcohol use. He reports a healthy appetite and enjoys a variety of foods, including chocolate. He uses dentures and denies any issues with eating. Social History Tobacco Use Smoking status: Former Current packs/day: 0.00 Average packs/day: 1 pack/day for 25.0 years (25.0 ttl pk-yrs) Types: Cigarettes Start date: 06/02/1952 Quit date: 06/02/1977 Years since quittin.2 Smokeless tobacco: Never Vaping Use Vaping status: Never Used Substance Use Topics Alcohol use: No Drug use: No Past medical history, appointments, medications, allergies reviewed. Pertinent Lab/Diagnostic Studies are reviewed and discussed today Current Outpatient Medications: cyanocobalamin, vitamin B-12, (VITAMIN B-12 ORAL) OMEPRAZOLE (PRILOSEC ORAL) tamsulosin (FLOMAX) 0.4 mg omeprazole (PRILOSEC) 20 mg capsule Health Maintenance Spirometry Depression Screening Anxiety Screening DTaP,Tdap,Td Vaccine(1 - Tdap) Shingrix Vaccine(1 of 2) Pneumococcal Vaccine: 50+(1 of 1 - PCV) RSV Vaccine(1 - 1-dose 75+ series) Advance Directive Discussion@ Review Of Systems Physical Exam BP 122/84 Pulse 101 Temp 37.1 ?C (98.7 ?F) (Temporal) Resp 14 Wt 64.4 kg (142 lb) SpO2 98% BMI 23.63 kg/m? GEN (more content not included)...[facility]04-28-2025 History of Present illness Narrative* Nimisha Oseguera MD - 09/02/2024 4:28 PM EDT Images from the original note were not included. Ayesha Jacobsen is a 89 year old male here for a Medicare wellness visit. Medicare Health Risk Assessment General Health Very good Exercise: Minutes/Day Not much Exercise: Days/Week See above Alcohol: Daily Use No Alcohol: Drinks/Day No Alcohol: 6 or more drinks No Feel off balance Yes Concerns: Teeth/Dentures No Concerns: Sexual function No Troubled by feelings No Frequency: Eating healthy diet Yes ADLs requiring help Mo Safety precautions in home/vehicle Yes Smoke, vape, chews tobacco no Difficulty hearing Yes Difficulty seeing Yes Current Providers Specialists: I have reviewed specialist-related care of the patient in the medical record. Medical/Family history review Reviewed and updated problem list, medical/surgical/family/social history, medications, and allergies. Opioid use review Opioid Medications (last 90 days) No data to display Anxiety/Depression screening negative Recommendation: no further intervention at this time Cognitive screening3/5 Cognitive screening reviewed and Recommended referral for further evaluation (score 0-2). Functional Observation Was the patient's Timed Up & Go test unsteady or >= 12 seconds? Advance Care Planning Surrogate decision maker and/or advance care plan documented Measurements BP 122/84 Pulse 101 Temp 37.1 C (98.7 F) (Temporal) Resp 14 Wt 64.4 kg (142 lb) SpO2 98% BMI 23.63 kg/m Vision Screening: Follows with optometry/ophthalmology Assessment/Plan Medicare annual wellness visit, subsequent (Z00.00) - Counseled on healthy diet and regular exercise - Fall avoidance information provided - Personalized prevention plan provided Reason for Visit Follow up EDDIE Clark is a 89-year-old male, with a history of esophageal strictures and GERD, presenting for a Medicare Annual Wellness Visit. He is accompanied by his daughter, who is providing additional history. Ayesha was last seen in February for a UTI and a possible seizure. Multiple EEGs were performed, which were inconclusive. He was prescribed Keppra 500 mg, but discontinued it due to the absence of seizure activity and normal EEG results. He is currently taking omeprazole and tamsulosin. He has a history of esophageal strictures requiring dilation, but currently denies dysphagia, odynophagia, or coughing while eating. Ayesha reports significant balance issues, describing his balance as terrible. He has experiencedmultiple falls, including a recent fall on [facility] where he injured his knee. He attributes his balance issues to a possible inner ear problem, as suggested by his . He denies back pain. He has also noticed a decrease in his walking speed and an inability to walk in a straight line. He remains physically active, engaging in activities such as walking around his yard, picking up sticks, and pulling weeds. He denies regular exercise due to balance issues. He is fully independent in activities of daily living, including bathing, dressing, eating, transferring, and walking. Ayesha reports occasional hallucinations, such as seeing a car between a cano and a tree that was not there. He also experiences visual disturbances, describing floaters and skinny things moving in his peripheral vision, which he attributes to cataract surgery. He denies tremors. His daughter notes changes in his short-term memory and sleep behavior, including talking and moving in his sleep. Ayesha has a history of smoking for approximately 30 years, starting at age 19 and quitting in 1976. He denies alcohol use. He reports a healthy appetite and enjoys a variety of foods, including chocolate. He uses dentures and denies any issues with eating. Social History Tobacco Use Smoking status: Former Current packs/day: 0.00 Average packs/day: 1 pack/day for 25.0 years (25.0 ttl pk-yrs) Types: Cigarettes Start date: 06/02/1952 Quit date: 06/02/1977 Years since quittin.2 Smokeless tobacco: Never Vaping Use Vaping status: Never Used Substance Use Topics Alcohol use: No Drug use: No Past medical history, appointments, medications, allergies reviewed. Pertinent Lab/Diagnostic Studies are reviewed and discussed today Current Outpatient Medications: cyanocobalamin, vitamin B-12, (VITAMIN B-12 ORAL) OMEPRAZOLE (PRILOSEC ORAL) tamsulosin (FLOMAX) 0.4 mg omeprazole (PRILOSEC) 20 mg capsule Health Maintenance Spirometry Depression Screening Anxiety Screening DTaP,Tdap,Td Vaccine(1 - Tdap) Shingrix Vaccine(1 of 2) Pneumococcal Vaccine: 50+(1 of 1 - PCV) RSV Vaccine(1 - 1-dose 75+ series) Advance Directive Discussion@ Review Of Systems Physical Exam BP 122/84 Pulse 101 Temp 37.1 C (98.7 F) (Temporal) Resp 14 Wt 64.4 kg (142 lb) SpO2 98% BMI 23.63 kg/m GENERAL: NAD, alert and oriented SKIN: unremarkable, no rash or skin lesions. HEAD: normocephalic EYES: PERRLA, EOMI, conjunctiva clear EARS: external ears normal, canals clear, TM's normal. NOSE/SINUSES: Nares normal. Septum midline. OROPHARYNX: lips, mucosa, and tongue normal, good dentition. No oral lesions noted. NECK: Supple, no lymphadenopathy, normal thyroid, no carotid bruits. LUNGS: Clear to auscultation bilaterally, no wheezes/rhonchi/rales. HEART: Regular rate and rhythm, no murmurs. No ectopy. EXTREMITIES: Normal, No deformities, No skin discoloration, No edema. NEURO: Awake, alert and oriented x3, cranial nerves II-XII grossly intact, normal gait, no involuntary motions Assessment and Plan 1. Hallucination (R44.3) Patient reports visual hallucinations, including seeing objects that are not present. Hallucinations are intermittent and have been occurring recently. Monitor for progression or changes in hallucinations. 2. 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 Monitor sleep behaviors; consider further evaluation if symptoms worsen. 3. Screening for depression (Z13.31) Patient does not exhibit signs of depression during the visit. No further action required at this time. 4. Encounter for screening examination for other mental health and behavioral disorders (Z13.39) Patient exhibits signs of memory loss and hallucinations, which may indicate underlying mental health or behavioral disorders. Monitor for progression of symptoms; consider further evaluation if necessary. 5. Bradykinesia (R25.8) Patient exhibits slowed movements and rigidity on examination. Monitor for progression of bradykinesia; consider further evaluation if symptoms worsen. 6. Memory loss (R41.3) Patient exhibits short-term memory loss, unable to recall three words after a few minutes. Monitor for progression of memory loss; consider further evaluation if necessary. Voice recognition software was used to compose this office note. Please excuse any unintended typographical errors. Recording using ambient AI software for draft documentation of the visit was discussed with the patient/authorized hostess party sales representative; all questions welcomed and answered. Patient/authorized hostess party sales representative agreed to proceed Nimisha Oseguera MD documented in this encounterCleveland Clinic Foundation11-22-2024 Telephone encounter Note * Telephone Encounter - Hero Waite - 03/29/2024 10:41 AM EST received message patient needs to be seen by cardiology and neurology prior to surgery ., left message for patient and gave direct number to call back Hero Waite [facility]11-22-2024 Miscellaneous Notes* Telephone Encounter - Hero Waite - 03/29/2024 10:41 AM EST received message patient needs to be seen by cardiology and neurology prior to surgery ., left message for patient and gave direct number to call back Hero Waite * Telephone Encounter - Hero Waite - 03/18/2024 10:20 AM EST Patient rescheduled for Hernia surgery on 04-09-2024 (copied forward the old cancelled case). patient will go though [facility] to make sure he is medically cleared for procedure. documented in this encounterCleveland Clinic Foundation11-20-2024 Telephone encounter Note * Telephone Encounter - Raffy Modi RN - 03/27/2024 1:51 PM EST Message already sent to surgery scheduling pool. Raffy Modi RN [facility]11-20-2024 Miscellaneous Notes* Telephone Encounter - Raffy Modi RN - 03/27/2024 1:51 PM EST Message already sent to surgery scheduling pool. Raffy Modi RN documented in this encounterCleveland Clinic Foundation11-20-2024 Miscellaneous Notes* Telephone Encounter - Raffy Modi RN - 03/27/2024 11:55 AM EST Mary Lynn CNP from [facility] came to office. Ayesha needs to be evaluated by cardiology and neurology prior to Mary being able to consider clearing him for surgery. The patient was scheduled to beseen today, but Mary cancelled the visit and advised Ayesha that the surgery would need to be cancelled and rescheduled after his other visits had been completed. Raffy Modi RN documented in this encounterCleveland Clinic Foundation11-20-2024 Telephone encounter Note * Telephone Encounter - Raffy Modi RN - 03/27/2024 11:55 AM EST Mary Lynn CNP from [facility] came to office. Ayesha needs to be evaluated by cardiology and neurology prior to Mary being able to consider clearing him for surgery. The patient was scheduled to beseen today, but Mary cancelled the visit and advised Ayesha that the surgery would need to be cancelled and rescheduled after his other visits had been completed. Raffy Modi RN [facility]11-20-2024 History and physical note* Mary Lynn APRN.FRANCES - 03/27/2024 11:29 AM EST [facility] appt cancelled today, pt needs to follow up with neurology prior to elective surgery 2/2 recent ED visit 02/26/2024 for acute delirium, he was placed on Keppra during that admission. 03/05/2024 Dr. Daniel Perez Assessment: Ayesha is an 88 year old male with h/o congenital esophageal atresia and stenosis, diverticulosis, HTN, reflex, esophageal stricture presenting with dizziness. Examination reveals an awake, alert patient with no focal weakness or sensory loss. He was recentlyhospitalized for UTI on 02/21 and seen by neurology for dizziness. MRI brain was negative at that time. Today he returns for acute change in mental status. NIH is now possibly 1 for possible right facialdroop. However, exam was suboptimal since patient was having trouble following commands and would not sustain a full smile. He is globally confused and at baseline is O and A x 3. Due to sudden, acute change, repeat MRI brain is recommended to rule out acute process like stroke. He also reportedly had a fall if patient's history if accurate. Will also obtain EEG. 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 Plan: - MRI brain - EEG - Will defer treatment of ANDREWS to primary team 03/05/2024 EEG Impression: This EEG is suggestive of a mild to moderate diffuse encephalopathy with additional cerebral dysfunction involving the left frontotemporal region. No epileptiform discharges or EEG seizures were recorded. [facility]11-20-2024 History and physical note* Mary Lynn APRN.CNP - 03/27/2024 11:29 AM EST [facility] appt cancelled today, pt needs to follow up with neurology prior to elective surgery 2/2 recent ED visit 02/26/2024 for acute delirium, he was placed on Keppra during that admission. 03/05/2024 Dr. Daniel Perez Assessment: Ayesha is an 88 year old male with h/o congenital esophageal atresia and stenosis, diverticulosis, HTN, reflex, esophageal stricture presenting with dizziness. Examination reveals an awake, alert patient with no focal weakness or sensory loss. He was recentlyhospitalized for UTI on 02/21 and seen by neurology for dizziness. MRI brain was negative at that time. Today he returns for acute change in mental status. NIH is now possibly 1 for possible right facialdroop. However, exam was suboptimal since patient was having trouble following commands and would not sustain a full smile. He is globally confused and at baseline is O and A x 3. Due to sudden, acute change, repeat MRI brain is recommended to rule out acute process like stroke. He also reportedly had a fall if patient's history if accurate. Will also obtain EEG. 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 Plan: - MRI brain - EEG - Will defer treatment of ANDREWS to primary team 03/05/2024 EEG Impression: This EEG is suggestive of a mild to moderate diffuse encephalopathy with additional cerebral dysfunction involving the left frontotemporal region. No epileptiform discharges or EEG seizures were recorded. documented in this encounterCleveland Clinic Foundation11-20-2024 Instructions* Patient Instructions* Mary Lynn APRN.CNP - 03/27/2024 11:14 AM EST Images from the original note were not included. [facility] PATIENT PREOPERATIVE INSTRUCTIONS Jacqueline Espinal MD has scheduled you for your procedure at this surgery center: [facility]: [phone] -- [address] [facility] [address]. Please read below carefully for your personalized instructions. Dietary Restrictions: - No solid food after midnight. - You may have 12 ounces of clear liquids (water, clear juices such as apple juice or gatorade, carbonated beverages, clear tea, black coffee, jello) until 2 hours before scheduled arrival at facility. Medications: Unless instructed differently below, stay on all of your medications until your surgery. If you start any new medications after today's visit, please contact your surgeon. Pre-Surgery Med Instructions Medication Instructions levETIRAcetam (KEPPRA) 500 mg tablet Take the day of surgery with a small sip of water meclizine (ANTIVERT) 25 mg tab IF needed naproxen sod/diphenhydramine (ALEVE PM ORAL) Stop 7 days before surgery lisinopril (ZESTRIL) 10 mg tablet Do not take the day of surgery tamsulosin (FLOMAX) 0.4 mg Take the day of surgery with a small sip of water cyanocobalamin, vitamin B-12, (VITAMIN B-12 ORAL) Stop 7 days before surgery OMEPRAZOLE (PRILOSEC ORAL) Take the day of surgery with a small sip of water If you take any medications for erectile dysfunction-Cialis (Tadalafil), Levitra, Staxyn (Vardenafil) Viagra (Sildenenafil please do not take these for 48 hours before surgery. If you start any new medications after today's visit, please contact the surgeon's office. If you are currently using a eweb-rrc-ltrx injectable or oral medication for diabetes or weight loss such as Dulaglutide (Trulicity), Exenatide (Byetta, Bydureon), Liraglutide (Victoza, Saxenda), Semaglutide (Ozempic, Wegovy, Rybelsus), or Tirzepatide (Mounjaro), the medicine should be stopped at least 7 days before surgery. These medicines can cause food to remain in your stomach for a very longtime and increase the risks from surgery and anesthesia. Not stopping the medication for a long enough time may result in your surgery being rescheduled. Blood Thinning Medications: - Stop NSAIDS (Ibuprofen, Advil, Aleve, Motrin, Celebrex, Mobic, etc.) 7 days before surgery, as directed by your surgeon. - Stop Aspirin 7 days before surgery, as directed by your surgeon. - Stop ALL herbal and dietary supplements 7 days before surgery. - You may take Tylenol (Acetaminophen) or any of your pain medications that do not contain aspirin or NSAIDS as needed. Important Reminders: - Candy, mints, and tobacco products are NOT permitted the morning of surgery. - Hearing aids, dentures and glasses may be worn the morning of surgery. - NO jewelry, body piercings, makeup, hairpins or contacts are to be worn the day of surgery. If you develop symptoms such as a fever, cold, or flu, or have other changes to your health within TWO DAYS of scheduled surgery or the morning of surgery, please contact the surgery center above. Personal Belongings: -Please have photo ID and insurance cards. -If you do not have a copy of advance directives on file with us, please bring a copy with you on the day of surgery. - Leave ALL valuables and money at home or with family members. For Outpatient Procedures: - YOU MUST HAVE A RESPONSIBLE CMA OR LPN TAKE YOU HOME. A TAVERN CAR ATTENDANT OR OUTSIDE SALES MANAGER CANNOT BE MADE A RESPONSIBLE CMA OR LPN. - We recommend that a responsible person stays with you overnight to take care of you. - You cannot stay in a hotel alone after outpatient surgery. You will not be permitted to have yoursurgery, if you do not have someone to take care of you. Arrival Time for Surgery: - The Surgery Center or hospital where you are having surgery will call the afternoon before surgery (or Monday for Monday surgery) with a scheduled arrival time. - If you have not heard by 4 pm, please contact the surgery center above. Please be aware that emergency situations arise, which may delay or change your surgical time. If this happens, we will notify you as soon as possible and regret any inconvenience. If you already have an Advance Directive, please fax a copy to [phone] or email to for it to be added to your chart. If you do not have an Advance Directive, you can find the appropriate form and more information at [email or web address]. We recommend that youcomplete the Advance Directive form found on the website and bring it with you the day of your surgery. It can be witnessed and scanned into your chart that day. Mary Lynn APRN.FRANCES documented in this [facility] Tele[facility] encounter Note * Telephone Encounter - Hero Waite - 03/18/2024 10:20 AM EST Patient rescheduled for Hernia surgery on 04-09-2024 (copied forward the old cancelled case). patient will go though [facility] to make sure he is medically cleared for procedure. [facility]11-[facility] Telephone encounter Note* Telephone Encounter - Adrianne Burgess - 03/15/2024 1:[address] Perez call requesting patient be placed back on Dr Espinal's surgery schedule as 02/2024 procedure had to be cancelled due to patient being admitted to the Hospital. Please advise patient of appointment details. [facility]24 Miscellaneous Notes* Telephone Encounter - Adrianne Burgess - 03/15/2024 1:[address] Perez call requesting patient be placed back on Dr Espinal's surgery schedule as 02/2024 procedure had to be cancelled due to patient being admitted to the Hospital. Please advise patient of appointment details. [facility]11[facility]24 [facility]10[facility]29[facility]29[facility] NoteHNO ID: [id number] Author: ALVAREZ GANT RN Service: Nursing Author Type: Registered Nurse Type: Nursing Progress Note Filed: 03/05/2024 15:16 Note Text: [id number] Note HNO ID: [id number] Author: DANIEL PEREZ MD Service: Family Practice Author Type: Physician Type: Progress Notes Filed: 03/03/2024 09:48 Note Text: INPATIENT PROGRESS NOTES Patient Name: Ayesha Jacobsen DATE of SERVICE: 03/03/2024 TIME of SERVICE: 9:47 AM PRIMARY SERVICE: Family Practice INTERVAL HPI: waiting on placement ASSESSMENT AND PLAN: Seizure d/o tolerating meds MEDICATIONS: Current Facility-Administered Medications Medication Dose Route Frequency meclizine 25 mg tab(s) (ANTIVERT) 25 mg ORAL TID PRN tamsulosin 0.4 mg cap(s) (FLOMAX) 0.4 mg ORAL DAILY pantoprazole DR 20 mg tab(s) (PROTONIX) 20 mg ORAL DAILY (6 AM) NaCl 0.9% iv flush bag 20 mL INTRAVENOUS PRN melatonin 6 mg tab(s) 6 mg ORAL AT BEDTIME PRN levETIRAcetam 500 mg tab(s) (KEPPRA) 500 mg ORAL BID Patient Vitals for the past 48 hrs: BP Temp Temp src Pulse Resp SpO2 03/03/24 0830 114/62 36.8 ?C (98.2 ?F) Oral 67 18 96 % 03/03/24 08 -- -- -- 66 -- -- 03/03/24399 -- -- -- 73 -- -- 03/03/24 0049 154/68 36.7 ?C (98 ?F) Temporal 90 17 100 % 03/03/24 0000 -- -- -- 87 -- -- 03/02/24 2133 136/69 36.6 ?C (97.8 ?F) Temporal 96 16 95 % 03/02/241999 -- -- -- 103 -- -- 03/02/24 1600 -- -- -- 105 -- -- 03/02/24 1200 156/72 -- -- 76 -- 90 % 03/02/24 1148 156/72 36.7 ?C (98.1 ?F) Oral 84 19 96 % 03/02/24 0801 138/69 36.4 ?C (97.6 ?F) Oral 84 19 96 % 03/02/24 0800 138/69 -- -- 92 -- -- 03/02/24 0400 136/90 36.6 ?C (97.8 ?F) Oral 79 19 91 % 03/02/24 0000 158/72 36.7 ?C (98 ?F) Oral 100 20 95 % 03/01/241999 143/71 36.7 ?C (98.1 ?F) Oral 109 20 95 % 03/01/24 1600 130/74 -- -- 110 -- 94 % 03/01/24 1538 130/74 36.7 ?C (98 ?F) Oral 105 20 96 % 03/01/24 1200 166/79 -- -- 64 -- 96 % 03/01/24 1151 166/79 36.3 ?C (97.4 ?F) Temporal 65 19 97 % PHYSICAL EXAM: GENERAL: alert, no distress, cooperative SKIN: No rashes or lesions. OROPHARYNX: Oropharynx normal. NECK: no jugulovenous distention, supple LUNGS: Lungs clear to auscultation. CARDIAC: normal S1 and S2; no rubs, murmurs, or gallops ABDOMEN: Abdomen soft, non-tender. BS normal. No masses or organomegaly. EXTREMETIES: No deformities, cyanosis, edema, clubbing or skin discoloration. NEURO: Alert, oriented X 3, Gait normal. Motor and Sensation grossly intact., DATA: CBC: Recent Labs 03/03/24 0634 WBC 10.48 RBC 4.52 HB 13.4 HCT 40.9 PLT 236 MCV 90.5 MCH 29.6 MPV 10.9 Coags: No results for input(s): PT, INR, APTT in the last 24 hours. CMP: Recent Labs 03/03/24 0634 NA 142 K 4.4 CHLOR 108* CO2 28 BUN 26* CREAT 1.03 GLUC 98 TPROT 5.8* CA 9.0 TBILI 0.4 ALKPHOS 67 ALT 10 AST 15 ANION 6* Cardiac Enzymes: No results for input(s): CK, MB, CKMB, TROPT in the last 24 hours. Liver Function, Amylase, Lipase: Recent Labs 03/03/24 0634 TPROT 5.8* ALB 3.4* ALT 10 AST 15 ALKPHOS 67 TBILI 0.4 ABG's: No results for input(s): PH, PCO2, PO2, BE, HCO3, CO2CT, O2HB, COHB, MHGB, TEMP, PHTC, PCO2T, PO2T, O2AD in the last 24 hours. MG/PHOS: No results for input(s): MG, P in the last 24 hours. Plan of care discussed with: Provider, RN, Patient. SIGNATURE: Daniel Perez MD DATE: March 03, 2024 TIME: 9:47 [facility] [id number] NoteHNO ID: [id number] Author: DANIEL PEREZ MD Service: Family Practice Author Type: Physician Type: Progress Notes Filed: 2024 07:14 Note Text: INPATIENT PROGRESS NOTES Patient Name: Ayesha Jacobsen DATE of SERVICE: 2024 TIME of SERVICE: 7:06 AM PRIMARY SERVICE: Family Practice INTERVAL HPI: made him stay and go to SNF ASSESSMENT AND PLAN: New onset seizures changed to oral keppra PT/OT rec snf Await precert. MEDICATIONS: Current Facility-Administered Medications Medication Dose Route Frequency meclizine 25 mg tab(s) (ANTIVERT) 25 mg ORAL TID PRN tamsulosin 0.4 mg cap(s) (FLOMAX) 0.4 mg ORAL DAILY pantoprazole DR 20 mg tab(s) (PROTONIX) 20 mg ORAL DAILY (6 AM) NaCl 0.9% iv flush bag 20 mL INTRAVENOUS PRN melatonin 6 mg tab(s) 6 mg ORAL AT BEDTIME PRN levETIRAcetam 500 mg tab(s) (KEPPRA) 500 mg ORAL BID Patient Vitals for the past 48 hrs: BP Temp Temp src Pulse Resp SpO2 Weight 03/02/24 0400 136/90 36.6 ?C (97.8 ?F) Oral 79 19 91 % -- 03/02/24 0000 158/72 36.7 ?C (98 ?F) Oral 100 20 95 % -- 03/01/24 2000 143/71 36.7 ?C (98.1 ?F) Oral 109 20 95 % -- 03/01/24 1600 130/74 -- -- 110 -- 94 % -- 03/01/24 1538 130/74 36.7 ?C (98 ?F) Oral 105 20 96 % -- 03/01/24 1200 166/79 -- -- 64 -- 96 % -- 03/01/24 1151 166/79 36.3 ?C (97.4 ?F) Temporal 65 19 97 % -- 03/01/24 0800 182/85 -- -- 89 -- 95 % -- 03/01/24 0744 182/85 36.3 ?C (97.3 ?F) Temporal 78 18 95 % -- 03/01/24 0536 152/70 36.4 ?C (97.6 ?F) Temporal 73 16 96 % -- 03/01/24 0400 -- -- -- 77 -- -- -- 03/01/24 0000 -- -- -- 80 -- -- -- 02/29/242008 153/77 36.4 ?C (97.6 ?F) Temporal 79 17 95 % -- 02/29/241999 -- -- -- 79 -- -- -- 02/29/24 1643 138/72 36.6 ?C (97.8 ?F) Oral 88 18 96 % -- 02/29/24 1600 -- -- -- 86 -- -- -- 02/29/24 1321 -- -- -- -- -- 95 % -- 02/29/24 1200 167/90 -- -- 82 -- 96 % -- 02/29/24 1144 167/90 36.4 ?C (97.6 ?F) Oral 89 18 94 % -- 02/29/24 1105 167/90 -- -- 96 -- 96 % -- 02/29/24 0937 -- -- -- -- -- -- 71.7 kg (158 lb 1.1 oz) 02/29/24 0800 149/91 -- -- 77 -- 96 % -- 02/29/24 0748 149/91 36.4 ?C (97.5 ?F) Oral 77 18 96 % -- PHYSICAL EXAM: GENERAL: alert, no distress, cooperative SKIN: No rashes or lesions. OROPHARYNX: Oropharynx normal. NECK: no jugulovenous distention, supple LUNGS: Lungs clear to auscultation. CARDIAC: normal S1 and S2; no rubs, murmurs, or gallops ABDOMEN: Abdomen soft, non-tender. BS normal. No masses or organomegaly. EXTREMETIES: No deformities, cyanosis, edema, clubbing or skin discoloration. NEURO: Alert, oriented X 3, Gait Motor and Sensation grossly intact., DATA: CBC: Recent Labs 03/02/24 0558 WBC 9.77 RBC 4.52 HB 13.4 HCT 40.6 PLT 169 MCV 89.8 MCH 29.6 MPV 11.1 Coags: No results for input(s): PT, INR, APTT in the last 24 hours. CMP: Recent Labs 03/02/24 0558 NA 141 K 4.2 CHLOR 106 CO2 28 BUN 25* CREAT 1.02 GLUC 94 TPROT 5.8* CA 8.7 TBILI 0.5 ALKPHOS 65 ALT 8* AST 13* ANION 7* Cardiac Enzymes: No results for input(s): CK, MB, CKMB, TROPT in the last 24 hours. Liver Function, Amylase, Lipase: Recent Labs 03/02/24 0558 TPROT 5.8* ALB 3.4* ALT 8* AST 13* ALKPHOS 65 TBILI 0.5 ABG's: No results for input(s): PH, PCO2, PO2, BE, HCO3, CO2CT, O2HB, COHB, MHGB, TEMP, PHTC, PCO2T, PO2T, O2AD in the last 24 hours. MG/PHOS: No results for input(s): MG, P in the last 24 hours. Plan of care discussed with: . SIGNATURE: Daniel Perez MD DATE: 2024 TIME: 7:06 [facility] [id number] NoteHNO ID: [id number] Author: ALEXANDER REYES MD Service: Urology Author Type: Physician Type: Plan of Care Filed: 02/29/2024 16:22 Note Text: Urology Plan of Care: Consult for pain before urination No Urologist in house today Reviewed chart. Recently had urinary retention for 1L and had Esteves placed on 02/21. It was removed prior to discharge that admission. UCx from that admission was low count mixed tianna, likely contamination. Had repeat UCx on 02/25 with no growth. Multiple PVRs this admission with ~100 cc volume. No indication for catheter placement. Continue to monitor PVR. Continue Flomax, can increase to 0.8 mg daily. Can repeat UA if dysuria worsens to rule out UTI. Follow up outpatient with Urology. Alexander Reyes [facility] [id number] NoteHNO ID: [id number] Author: IVETT SELF PA-C Service: Neurology General Author Type: Physician Pottery Decorator Type: Plan of Care Filed: 02/29/2024 12:59 Note Text: TELENEUROLOGY CONSULT PROGRESS NOTE The Teleneurologist or ARISTEO is available from 8 am to 5 pm on weekdays. On weekends, at [place] and [place], the Teleneurologist or ARISTEO is available from 8 am to 5 pm, [facility] 8 am to 12 pm, [place] 1 pm to 5 pm, [place] 8 am to 12 pm, [place] 1 pm to 5 pm. Statutory holidays do not have teleneuro coverage. [place]: During Off hours for Teleneurology please page (not call) [place] [facility] [phone] content manager for concerns. [place]: During Off hours for Teleneurology please page (not call) [place] [facility] [phone] content manager for concerns. [facility]: There is no off-hours coverage for Teleneurology. The below follow up visit is a virtual visit conducted via video and was not in-person. Patient consented to visit. Physical exam was performed with the help of a presenter (trained nurse of physical therapist). SERVICE DATE: 02/29/2024 SERVICE TIME: 1130 Patient is walking with PT. Seems to be ding much better. Alert and oriented x 3. Able to answer questions appropriately. Denies any side effects to the Keppra including agitation or mood changes. Repeat EEG without seizure activity. Recommend follow up with Epilepsy after discharge. Teleneurology will sign off. Teleneurology will not follow this patient. Please call for additional assistance. SIGNATURE: Ivett Self PA-C PATIENT NAME: Ayesha Jacobsen DATE: February 29, 2024 TIME: 12:58 PM PAGER/CONTACT #:[facility] [id number] NoteHNO ID: [id number] Author: DANIEL PEREZ MD Service: Family Practice Author Type: Physician Type: Progress Notes Filed: 02/29/2024 08:38 Note Text: INPATIENT PROGRESS NOTES Patient Name: Ayesha Jacobsen DATE of SERVICE: 02/29/2024 TIME of SERVICE: 8:32 AM PRIMARY SERVICE: Family Practice INTERVAL HPI: appreciate neurology notes Possible seizure Started keppra Mri today ASSESSMENT AND PLAN: C/o difficulty passing urine Urology consult today May need SNF MEDICATIONS: Current Facility-Administered Medications Medication Dose Route Frequency cefTRIAXone iv piggyback 1 g in dextrose (iso-osmotic) 50 mL (ROCEPHIN) 1 g INTRAVENOUS q 24 H meclizine 25 mg tab(s) (ANTIVERT) 25 mg ORAL TID PRN tamsulosin 0.4 mg cap(s) (FLOMAX) 0.4 mg ORAL DAILY pantoprazole DR 20 mg tab(s) (PROTONIX) 20 mg ORAL DAILY (6 AM) NaCl 0.9% iv infusion 75 mL/hr INTRAVENOUS CONTINUOUS NaCl 0.9% iv flush bag 20 mL INTRAVENOUS PRN iv contrast (radiology procedure) INTRAVENOUS DIRECTED PRN levETIRAcetam 500 mg injection (KEPPRA) 500 mg INTRAVENOUS BID Patient Vitals for the past 48 hrs: BP Temp Temp src Pulse Resp SpO2 Weight 02/29/24 0800 149/91 -- -- 77 -- 96 % -- 02/29/24 0748 149/91 36.4 ?C (97.5 ?F) Oral 77 18 96 % -- 02/29/24 0400 177/77 -- -- 78 -- 95 % -- 02/29/24 0350 158/92 36.4 ?C (97.6 ?F) Temporal 80 16 95 % -- 02/29/24 0015 163/89 36.6 ?C (97.8 ?F) Temporal 85 24 94 % -- 02/29/24 0000 -- -- -- 83 17 -- -- 02/28/24 2038 162/80 36.2 ?C (97.2 ?F) Temporal 105 23 97 % -- 02/28/24 2000 162/80 -- -- -- -- -- -- 02/28/24 1600 134/73 36.8 ?C (98.3 ?F) Axillary 101 28 96 % -- 02/28/24 1500 -- -- -- 102 19 -- -- 02/28/24 1200 149/96 -- -- 99 (!) 57 -- -- 02/28/24 1100 -- 36.9 ?C (98.5 ?F) Axillary 72 22 96 % -- 02/28/24 1000 158/81 -- -- 80 22 -- -- 02/28/24 0800 173/88 36.9 ?C (98.4 ?F) Axillary 78 16 96 % -- 02/28/24 0605 -- -- -- -- -- -- 71.8 kg (158 lb 4.6 oz) 02/28/24 0428 160/78 36.9 ?C (98.4 ?F) Oral 74 18 96 % -- 02/28/24 0400 -- -- -- 78 19 -- -- 02/28/24 0000 167/82 -- -- 80 17 95 % -- 02/27/24 2355 167/82 36.4 ?C (97.5 ?F) Oral 85 20 95 % -- 02/27/24 2028 149/73 36.7 ?C (98.1 ?F) Oral 95 20 95 % -- 02/27/24 2000 -- -- -- 101 21 -- -- 02/27/24 1600 -- -- -- 101 -- -- -- 02/27/24 1509 175/86 36.7 ?C (98 ?F) Oral 80 18 95 % -- 02/27/24 1200 -- -- -- 63 -- -- -- 02/27/24 1100 149/78 36.6 ?C (97.8 ?F) Oral 79 18 96 % -- PHYSICAL EXAM: GENERAL: alert, no distress, cooperative SKIN: No rashes or lesions. OROPHARYNX: Oropharynx normal. NECK: no jugulovenous distention, supple LUNGS: Lungs clear to auscultation. CARDIAC: normal S1 and S2; no rubs, murmurs, or gallops ABDOMEN: Abdomen soft, non-tender. BS normal. No masses or organomegaly. EXTREMETIES: No deformities, cyanosis, edema, clubbing or skin discoloration. NEURO: Alert, oriented X 3, Gait normal. Motor and Sensation grossly intact., DATA: CBC: No results for input(s): WBC, RBC, HB, HCT, PLT, MCV, MCH, MPV, RDW in the last 24 hours. Coags: No results for input(s): PT, INR, APTT in the last 24 hours. CMP: No results for input(s): NA, K, CHLOR, CO2, BUN, CREAT, GLUC, TPROT, CA, MG, ALBUMIN, TBILI, ALKPHOS, ALT, AST, ANION in the last 24 hours. Cardiac Enzymes: No results for input(s): CK, MB, CKMB, TROPT in the last 24 hours. Liver Function, Amylase, Lipase: No results for input(s): TPROT, ALB, ALT, AST, ALKPHOS, TBILI, AMYLASE, LIPASE, LACTATE in the last 24 hours. ABG's: No results for input(s): PH, PCO2, PO2, BE, HCO3, CO2CT, O2HB, COHB, MHGB, TEMP, PHTC, PCO2T, PO2T, O2AD in the last 24 hours. MG/PHOS: No results for input(s): MG, P in the last 24 hours. Plan of care discussed with: . SIGNATURE: Daniel Perez MD DATE: February 29, 2024 TIME: 8:32 AMGalion [id number] NoteHNO ID: [id number] Author: DANIEL PEREZ MD Service: Family Practice Author Type: Physician Type: Progress Notes Filed: 02/28/2024 08:17 Note Text: INPATIENT PROGRESS NOTES Patient Name: Ayesha Jacobsen DATE of SERVICE: 02/28/2024 TIME of SERVICE: 8:12 AM PRIMARY SERVICE: [facility] INTERVAL HPI: improved cr UC is negative Improved dehydration Seems back to base line ASSESSMENT AND PLAN: Ot/PT Rocephin one more day and change to po Ivf one more day MEDICATIONS: Current Facility-Administered Medications Medication Dose Route Frequency cefTRIAXone iv piggyback 1 g in dextrose (iso-osmotic) 50 mL (ROCEPHIN) 1 g INTRAVENOUS q 24 H meclizine 25 mg tab(s) (ANTIVERT) 25 mg ORAL TID PRN tamsulosin 0.4 mg cap(s) (FLOMAX) 0.4 mg ORAL DAILY pantoprazole DR 20 mg tab(s) (PROTONIX) 20 mg ORAL DAILY (6 AM) NaCl 0.9% iv infusion 75 mL/hr INTRAVENOUS CONTINUOUS Patient Vitals for the past 48 hrs: BP Temp Temp src Pulse Resp SpO2 Height Weight 02/28/24 0800 -- -- -- 78 16 -- -- -- 02/28/24 0605 -- -- -- -- -- -- -- 71.8 kg (158 lb 4.6 oz) 02/28/24 0428 160/78 36.9 ?C (98.4 ?F) Oral 74 18 96 % -- -- 02/28/24 0400 -- -- -- 78 19 -- -- -- 02/28/24 0000 167/82 -- -- 80 17 95 % -- -- 02/27/24 2355 167/82 36.4 ?C (97.5 ?F) Oral 85 20 95 % -- -- 02/27/24 2028 149/73 36.7 ?C (98.1 ?F) Oral 95 20 95 % -- -- 02/27/24 2000 -- -- -- 101 21 -- -- -- 02/27/24 1600 -- -- -- 101 -- -- -- -- 02/27/24 1509 175/86 36.7 ?C (98 ?F) Oral 80 18 95 % -- -- 02/27/24 1200 -- -- -- 63 -- -- -- -- 02/27/24 1100 149/78 36.6 ?C (97.8 ?F) Oral 79 18 96 % -- -- 02/27/24 0800 172/84 36.6 ?C (97.9 ?F) Temporal 87 20 96 % -- -- 02/27/24 0400 141/76 36.6 ?C (97.9 ?F) Temporal 83 20 94 % -- -- 02/27/24 0000 168/74 36.6 ?C (97.8 ?F) Temporal 87 21 96 % -- -- 02/26/24 2100 157/72 -- -- 95 18 96 % -- -- 02/26/24 2050 -- -- -- -- -- -- 167.6 cm (5' 6) 70.3 kg (154 lb 15.7 oz) 02/26/24 1924 120/61 -- -- (!) 91 20 97 % -- -- 02/26/24 1815 107/59 -- -- (!) 93 20 96 % -- -- 02/26/24 1718 109/60 -- -- (!) 102 18 95 % -- -- 02/26/24 1713 118/63 36.8 ?C (98.2 ?F) Axillary (!) 104 18 95 % -- -- 02/26/24 1548 105/88 36.7 ?C (98.1 ?F) Oral 70 16 98 % -- 66.7 kg (147 lb) PHYSICAL EXAM: GENERAL: alert, no distress, cooperative SKIN: No rashes or lesions. OROPHARYNX: Oropharynx normal. NECK: no jugulovenous distention, supple LUNGS: Lungs clear to auscultation. CARDIAC: normal S1 and S2; no rubs, murmurs, or gallops ABDOMEN: Abdomen soft, non-tender. BS normal. No masses or organomegaly. EXTREMETIES: No deformities, cyanosis, edema, clubbing or skin discoloration. NEURO: Alert, oriented X 3, Gait normal. Motor and Sensation grossly intact., DATA: CBC: Recent Labs 02/28/24 0530 WBC 11.13* RBC 4.67 HB 13.8 HCT 42.4 PLT 216 MCV 90.8 MCH 29.6 MPV 10.7 Coags: No results for input(s): PT, INR, APTT in the last 24 hours. CMP: Recent Labs 02/28/24 0530 NA 143 K 4.0 CHLOR 108* CO2 25 BUN 28* CREAT 1.24* GLUC 92 CA 8.9 ANION 10 Cardiac Enzymes: No results for input(s): CK, MB, CKMB, TROPT in the last 24 hours. Liver Function, Amylase, Lipase: No results for input(s): TPROT, ALB, ALT, AST, ALKPHOS, TBILI, AMYLASE, LIPASE, LACTATE in the last 24 hours. ABG's: No results for input(s): PH, PCO2, PO2, BE, HCO3, CO2CT, O2HB, COHB, MHGB, TEMP, PHTC, PCO2T, PO2T, O2AD in the last 24 hours. MG/PHOS: No results for input(s): MG, P in the last 24 hours. Plan of care discussed with: . SIGNATURE: Daniel Perez MD DATE: February 28, 2024 TIME: 8:12 [facility] [id number] NoteHNO ID: [id number] Author: VINCE GARCIA APRN.INSTRUCTIONAL SYSTEMS SPECIALIST Service: ? Author Type: Nurse Practitioner Type: Progress Notes Filed: 02/26/2024 21:27 Note Text: Admission Examination SERVICE DATE: 02/26/2024 SERVICE TIME: 1999 PCP: Daniel Perez MD PRIMARY ATTENDING: Daniel Rosas MD Subjective CHIEF COMPLAINT: Confused (Sent by PCP for eval of confusion. Recent admission for UTI.) HPI: Patient is a 88 year old male with a past medical history significant for hypertension, GERD, and BPH, who presents to the emergency department with complaints of confusion that started on Monday. patient was recently admitted to the hospital 02/21- 02/23 for dizziness. patient was worked up for a stroke with no acute findings and sent home on antivert. patient on Monday began to have some confusion. was seen by PCP today for the hospital admission F/U and was advised to return back tot he ED secondary to worsening confusion, decreased ambulation, off balance and a decreased appetite. denied fever, chills, N/V, diarrhea cough or dyspnea. daughter states patients lisinopril dose was doubled last month from 5mg to 10mg daily. ED workup: radiologic results below Bun 27, CR 1.83, WBC 16.43 UTI with hematuria given 2250 liters IV fluid and rocephin IV History provided by: family member and EMR FUNCTIONAL STATUS: Partially dependent PAST MEDICAL HISTORY Diagnosis Date Congenital tracheoesophageal fistula, esophageal atresia and stenosis Diverticulosis of colon with hemorrhage Essential hypertension 07/24/2017 GERD (gastroesophageal reflux disease) 07/24/2017 Stricture and stenosis of esophagus PAST SURGICAL HISTORY Procedure Laterality Date EGD FLEXIBLE FOREIGN BODY REMOVAL 07/24/13 distal stenosis ESOPHAGOSCOPY FLEX BALLOON DILAT <30 MM DIAM 06/27/2008 Esophageal dilatation ESOPHAGOSCOPY FLEX BALLOON DILAT <30 MM DIAM 07/25/08 ESOPHAGOSCOPY FLEXIBLE REMOVAL FOREIGN BODY 05/27/08 ER [facility] PAST SURGICAL HISTORY OF Mid COLON RESECTION REPAIR INGUINAL HERNIA Left 07/25/2017 FAMILY HISTORY Problem Relation Age of Onset Cancer Mother colon Cancer Father ? Social History Tobacco Use Smoking status: Former Current packs/day: 0.00 Average packs/day: 1 pack/day for 25.0 years (25.0 ttl pk-yrs) Types: Cigarettes Start date: 06/02/1952 Quit date: 06/02/1977 Years since quittin.7 Smokeless tobacco: Never Vaping Use Vaping status: Never Used Substance Use Topics Alcohol use: No Drug use: No I have confirmed and edited as necessary, the PFSH obtained by others. ALLERGIES Allergen Reactions Eggs [Egg] Hives, Shortness of Breath Prior to Admission Medications Prescriptions Last Dose Informant Patient Reported? Taking? OMEPRAZOLE (PRILOSEC ORAL) 02/26/2024 Yes Yes Sig: Take 20 mg by mouth daily at 6 am. ciprofloxacin HCl (CIPRO) 500 mg tablet 02/26/2024 No Yes Sig: Take 1 tablet by mouth two times a day for 5 days. cyanocobalamin, vitamin B-12, (VITAMIN B-12 ORAL) Yes Yes Sig: B-12 CAPS lisinopril (ZESTRIL) 10 mg tablet 02/25/2024 No Yes Sig: Take 1 tablet by mouth once daily. meclizine (ANTIVERT) 25 mg tab Not Taking No No Sig: Take 1 tablet by mouth three times a day as needed. Patient not taking: Reported on 02/26/2024 naproxen sod/diphenhydramine (ALEVE PM ORAL) Yes Yes Sig: Take 2 tablets by mouth as needed (pain). tamsulosin (FLOMAX) 0.4 mg 02/25/2024 Yes Yes Sig: Take 1 capsule by mouth every afternoon. Facility-Administered Medications: None REVIEW OF SYSTEMS: Review of Systems Unable to perform ROS: Acuity of condition (went over S/S with and daghter) Constitutional: Positive for activity change. Negative for chills and fever. Respiratory: Negative for cough and dyspnea. Cardiovascular: Negative for chest pain. Gastrointestinal: Negative for diarrhea, nausea and vomiting. Endocrine: Negative. Genitourinary: BPH Musculoskeletal: Positive for gait problem. Neurological: Positive for weakness. Negative for dizziness and headaches. Psychiatric/Behavioral: Positive for confusion. Objective PHYSICAL EXAM: Physical Exam Constitutional: General: He is not in acute distress. Appearance: Normal appearance. He is not ill-appearing. Comments: speech garbled and confused HENT: Mouth/Throat: Mouth: Mucous membranes are dry. Eyes: Pupils: Pupils are equal, round, and reactive to light. Cardiovascular: Rate and Rhythm: Normal rate and regular rhythm. Heart sounds: No murmur heard. Pulmonary: Effort: Pulmonary effort is normal. No respiratory distress. Breath sounds: Normal breath sounds. No wheezing. Abdominal: General: Abdomen is flat. Bowel sounds are normal. There is no distension. Palpations: Abdomen is soft. Tenderness: There is no abdominal tenderness. Musculoskeletal: Right lower leg: No edema. Left lower leg: No edema. Neurological: Comments: alert to self (more content not included)...[facility] [id number] NoteHNO ID: [id number] Author: FATIMAH ALLISON RN Service: Care Management Author Type: Registered Nurse Type: Care Mgt Initial Assessment Filed: 02/23/2024 10:16 Note Text: CARE MANAGEMENT: ASSESSMENT AND DISCHARGE PLAN SERVICE DATE: February 23, 2024 SERVICE TIME: 10:10 AM PCP: Daniel Perez MD - Confirmed. Primary Contact: Extended Emergency Contact Information Primary Emergency Contact: Marilyn Jacobsen Address: [address] [place] [id number] Relation: Spouse Admission Status: Observation Insurance Provider: [facility] Discharge Planning requested by: Per Department Practice Potential Transition Plans Home Advance Directives Current Advance Directive: Health Care Power of Library Associate In Chart: No Senior Scheduler Attempted to Assist with AD Completion: Yes Action: Education Provided Current Living Arrangements and Support Lives with: Spouse/significant other Type of Residence: Private Residence (House) Does the patient have to climb stairs at home?: stairs outside the home;stairs within the home (2-3 entry steps; Basement he doesn't go down there often.) Support: Spouse/significant other How do you manage to accomplish the following: Independent: Ambulation;Bathe/Shower;Dress;Meals/Meal Prep;Going to the bathroom;Medication Management Needs Assistance: Transportation to appointments/community Current Services/Equipment Current Post-Acute Service(s): DME Current DME Type: Cane Discharge Planning Patient Goal(s): Be able to go home, General wellness [place] Explained: [place] Given: No Reason Not Given: Unable to complete with this assessment - revisit Are you interested in bedside delivery of your medications? No Preferred outpatient pharmacy is [facility] Discharge Planning Participant(s): Patient Patient/Family Comments: Caregiver Assessment: Caregiver is ready, willing and able to meet the patient's needs as recommended by the inter-professional team: No Caregiver needed Transport at Discharge: Transportation Arrangements: Car Needs Prior to Discharge: Needs Prior to Discharge: To Be Determined Post-Acute Discharge Plan: CM met at bedside with patient, introduced self and role. Pt is 88 y/o, admit Dx dizziness. Patient resides at home with his in a 1SH, reports he rarely goes into the basement at home though. IPTA, just started using a cane for ambulation due to dizziness and weakness. provides transport. Presented to ED with worsening dizziness and weakness which he has been having for the past week. MRI brain, Neuro consult and PT Eval pending. On RA. Pt is AANDO X 3. Discharge needs TBD. to transport at d/c. CM instructed patient that CM team will remain available for any dc needs. SIGNATURE: Fatimah Allison RN PATIENT NAME: Ayesha Jacobsen DATE: February 23, 2024 TIME: 10:10 AM CONTACT #: [phone] Telephone encounter Note* Telephone Encounter - Ronda Garcia LPN - 02/23/2024 9:33 AM EDT Patient was scheduled for in person [facility] appt at 920am today. Patient did not check in for appt. Looks like patient is admitted in [facility]. Ronda Garcia LPN [facility]10-18-2024 Miscellaneous Notes* Telephone Encounter - Ronda Garcia LPN - 02/23/2024 9:33 AM EDT Patient was scheduled for in person [facility] appt at 920am today. Patient did not check in for appt. Looks like patient is admitted in [facility]. Ronda Garcia LPN documented in this encounterCleveland Clinic Foundation10-17-2024 NoteHNO ID: [id number] Author: SUSANA BELLO APRN.INSTRUCTIONAL SYSTEMS SPECIALIST Service: General Internal Medicine Author Type: Nurse Practitioner Type: Progress Notes Filed: 02/22/2024 22:55 Note Text: INTERNAL MEDICINE PROGRESS NOTE SERVICE DATE: 02/22/2024 SERVICE TIME: 2148 Primary Attending: Daniel Rosas MD Subjective CHIEF COMPLAINT: dizziness and weakness for 1 week HPI: Patient is a 88 year old male with PMHx HTN, GERD, and congenital tracheoesophageal fistula, stricture and stenosis of esophagus who presented to [place] [facility] with weakness and dizziness that started 1 week ago and yesterday became worse. He just started using a cane. He states a spinning sensation with mild nausea, but none currently. Denies fevers, confusion, cp, sob, abdominal pain,decreased sensation, no stroke-like symptoms. Esteves was placed at [place] [facility] for retention; had immediately 1000ml out. He was started on rocephin for UTI, given antivert, pyridium, and 1L NS bolus. Labs at [facility] CMP is overall insignificant, CBC is negative for leukocytosis or anemia, platelets are 126. hsTNT . UA POSITIVE for leuks, WBC and moderate bacteria. Urine culture is IN PROCESS. chest xray is negative. CT Brain is negative, CTA head/neck is negative acute abnormalities. There is moderate degree of focal stenosis P1 and P2 segment right posterior cerebral. artery. Moderate to advanced degree of supratentorial chronic microvascular ischemic changes. Moderate degree of parenchymal volume loss. Patient will be admitted under Dr. Marlene Perez PAST MEDICAL HISTORY Diagnosis Date Congenital tracheoesophageal fistula, esophageal atresia and stenosis Diverticulosis of colon with hemorrhage Essential hypertension 07/24/2017 GERD (gastroesophageal reflux disease) 07/24/2017 Stricture and stenosis of esophagus Prior to Admission Medications Prescriptions Last Dose Informant Patient Reported? Taking? OMEPRAZOLE (PRILOSEC ORAL) Yes Yes Sig: Take 20 mg by mouth daily at 6 am. cyanocobalamin, vitamin B-12, (VITAMIN B-12 ORAL) Yes Yes Sig: B-12 CAPS lisinopril (ZESTRIL) 10 mg tablet No Yes Sig: Take 1 tablet by mouth once daily. naproxen sod/diphenhydramine (ALEVE PM ORAL) Yes Yes Sig: Take 2 tablets by mouth as needed (pain). tamsulosin (FLOMAX) 0.4 mg Yes Yes Sig: Take 1 capsule by mouth every afternoon. Facility-Administered Medications: None Review of Systems Constitutional: Negative for chills and fatigue. HENT: Negative. Respiratory: Negative for cough, chest tightness, shortness of breath and dyspnea. Cardiovascular: Positive for hypertension . Negative for chest pain, palpitations and leg swelling. Gastrointestinal: Negative for abdominal pain, constipation, diarrhea, nausea and vomiting. Endocrine: Negative. Genitourinary: Positive for difficulty urinating. Skin: Negative. Neurological: Positive for dizziness and weakness. Negative for tremors, facial asymmetry, speech difficulty, numbness and headaches. Psychiatric/Behavioral: Negative. Objective Physical Exam Vitals and nursing note reviewed. Constitutional: Appearance: Normal appearance. HENT: Head: Normocephalic. Nose: Nose normal. Eyes: Extraocular Movements: Extraocular movements intact. Conjunctiva/sclera: Conjunctivae normal. Pupils: Pupils are equal, round, and reactive to light. Cardiovascular: Rate and Rhythm: Normal rate and regular rhythm. Pulses: Normal pulses. Heart sounds: Normal heart sounds. Pulmonary: Effort: Pulmonary effort is normal. No respiratory distress. Breath sounds: Normal breath sounds. No wheezing, rhonchi or rales. Abdominal: General: Bowel sounds are normal. There is no distension. Tenderness: There is no abdominal tenderness. Musculoskeletal: Right lower leg: No edema. Left lower leg: No edema. Skin: General: Skin is warm and dry. Capillary Refill: Capillary refill takes less than 2 seconds. Neurological: General: No focal deficit present. Mental Status: He is alert and oriented to person, place, and time. Comments: NIHSS: 1(a). Mental Status - LOC 0 = Alert and Attentive 1(b). LOC Questions 0 = Correct age and month 1(c). LOC-Commands 0 = Both 2. Gaze 0 = Normal 3. Visual Vizcarra 0 = Full 4. Facial Weakness 0 = Normal 5(a). Left Arm 0 = No drift 5(b). Right Arm 0 = No drift 6(a). Left Leg 0 = No drift 6(b). Right Leg 0 = No drift 7. Ataxia 0 = Absent 8. Sensory 0 = Normal 9. Aphasia 0 = None 10. Dysarthria 0 = Absent 11. Neglect 0 = None NIHSS Total (0-42): 0 Psychiatric: Mood and Affect: Mood normal. Behavior: Behavior normal. Patient Vitals for the past 24 hrs: BP Temp Temp src Pulse Resp SpO2 Height Weight 02/22/24 2045 180/93 36.7 ?C (98.1 ?F) Oral 88 18 95 % 167.6 cm (5' 6) 67 kg (147 lb 11.3 oz) Body mass index is 23.84 kg/m?. DATA: Diagnostic tests reviewed for today's visit: Most recent labs and imaging (more content not included)...[facility] 02-22-2024 NoteHNO ID: [id number] Author: RONDA PERERA APRN.CNP Service: ? Author Type: Nurse Practitioner Type: Progress Notes Filed: 02/22/2024 09:02 Note Text: Called to triage patient by PSS staff 88 year old male with PMH presents for dizziness Acute onset yesterday My legs feel weak +dizziness Walking with cane, which is new per daughter. Denies prior history of same Given age and limitations of express care, Referred to ED Report called to [facility] Patient declines going to [place], and daughter will drive.[facility]10-17-2024 History of Present illness Narrative* Ronda Perera APRN.CNP - 02/22/2024 8:58 AM EDT Called to triage patient by PSS staff 88 year old male with PMH presents for dizziness Acute onset yesterday My legs feel weak +dizziness Walking with cane, which is new per daughter. Denies prior history of same Given age and limitations of express care, Referred to ED Report called to [facility] Patient declines going to [place], and daughter will drive. documented in this encounterC[facility]09-30-2024 Telephone encounter Note * Telephone Encounter - Priscilla Colindres - 02/05/2024 2:51 PM EDT Per office note from Dr. Hall 01/22/2024 3. Preoperative clearance - ICD9: V72.84, ICD10: Z01.818 Patient cleared for his hernia surgery with mild to moderate risk [facility]09-30-2024 Miscellaneous Notes* Telephone Encounter - Priscilla Colindres - 02/05/2024 2:51 PM EDT Per office note from Dr. Hall 01/22/2024 3. Preoperative clearance - ICD9: V72.84, ICD10: Z01.818 Patient cleared for his hernia surgery with mild to moderate risk * Telephone Encounter - Priscilla Colindres - 01/25/2024 9:51 AM EDT Cardiac clearance sent to Dr. Hall for clearance for patient to be able to schedule hernia repair surgery with Dr. Espinal in [facility] Priscilla Colindres Supervisor Beam Department documented in this encounterCleveland Clinic [facility]09-19-2024 Telephone encounter Note * Telephone Encounter - Priscilla Colindres - 01/25/2024 9:51 AM EDT Cardiac clearance sent to Dr. Hall for clearance for patient to be able to schedule hernia repair surgery with Dr. Espinal in [facility] Priscilla Colindres Supervisor Beam Department [facility]09-16-2024 NoteHNO ID: [id number] Author: FABRICIO HALL MD Service: ? Author Type: Physician Type: Progress Notes Filed: 01/22/2024 16:39 Note Text: Fabricio Hall MD Interventional Cardiology [address] [place] [address] [phone] Chief Complaint Patient presents with: Consult HISTORY OF PRESENT ILLNESS: Mr. Jacobsen is a 88 year old male seen my office today for assessment management of preoperative evaluation patient had longstanding history of essential hypertension maintained on MICHELLE inhibitors recently was diagnosed with hernia and supposed to have surgery echocardiography was performed which revealed diagnosis of aortic stenosis patient has remained relatively asymptomatic denies any chest pain shortness of breath with exertion no signs or symptoms of congestive heart failure Echocardiography was performed on October 2023 shows normal left ventricular size with mildly decreased LV function ejection fraction 46% aortic valve shows tricuspid valve with moderate aortic stenosis caused by calcified valve aortic valve area is 1.17 cm? with a peak gradient of 24 and mean gradient of 14 dimensionless index of 0.37 Cardiac Risk Factors age (male over 45, female over 55), hyperlipidemia, hypertension, family history of CAD PAST MEDICAL HISTORY Diagnosis Date Congenital tracheoesophageal fistula, esophageal atresia and stenosis Diverticulosis of colon with hemorrhage Essential hypertension 07/24/2017 GERD (gastroesophageal reflux disease) 07/24/2017 Stricture and stenosis of esophagus PAST SURGICAL HISTORY Procedure Laterality Date EGD FLEXIBLE FOREIGN BODY REMOVAL 07/24/13 distal stenosis ESOPHAGOSCOPY FLEX BALLOON DILAT <30 MM DIAM 06/27/2008 Esophageal dilatation ESOPHAGOSCOPY FLEX BALLOON DILAT <30 MM DIAM 07/25/08 ESOPHAGOSCOPY FLEXIBLE REMOVAL FOREIGN BODY 05/27/08 ER [facility] PAST SURGICAL HISTORY OF Mid COLON RESECTION REPAIR INGUINAL HERNIA Left 07/25/2017 FAMILY HISTORY Problem Relation Age of Onset Cancer Mother colon Cancer Father ? Social History Tobacco Use Smoking status: Former Current packs/day: 0.00 Average packs/day: 1 pack/day for 25.0 years (25.0 ttl pk-yrs) Types: Cigarettes Start date: 06/02/1952 Quit date: 06/02/1977 Years since quittin.6 Smokeless tobacco: Never Vaping Use Vaping status: Never Used Substance Use Topics Alcohol use: No Drug use: No ALLERGIES Allergen Reactions Eggs [Egg] Hives, Shortness of Breath Medications: Current Outpatient Medications Medication Sig Dispense Refill tamsulosin (FLOMAX) 0.4 mg Take 1 capsule by mouth every afternoon. cyanocobalamin, vitamin B-12, (VITAMIN B-12 ORAL) B-12 CAPS [id number] 1.5 mg iron- 8.73 mg CpID Take by mouth. ferrous sulfate (IRON ORAL) Take by mouth. OMEPRAZOLE (PRILOSEC ORAL) Take by mouth. lisinopril (ZESTRIL) 10 mg tablet Take 1 tablet by mouth once daily. 30 tablet 4 No current facility-administered medications for this visit. Review of Systems Constitutional: Negative for chills, diaphoresis, fever, malaise/fatigue and weight loss. HENT: Negative for congestion, ear discharge, ear pain, hearing loss, nosebleeds, sinus pain, sore throat and tinnitus. Eyes: Negative for blurred vision, double vision, photophobia, pain, discharge and redness. Respiratory: Negative for cough, hemoptysis, sputum production, shortness of breath, wheezing and stridor. Cardiovascular: Negative for chest pain, palpitations, orthopnea, claudication, leg swelling and PND. Gastrointestinal: Negative for abdominal pain, blood in stool, constipation, diarrhea, heartburn, melena, nausea and vomiting. Genitourinary: Negative for dysuria, flank pain, frequency, hematuria and urgency. Musculoskeletal: Negative for back pain, falls, joint pain, myalgias and neck pain. Skin: Negative for itching and rash. Neurological: Negative for dizziness, tingling, tremors, sensory change, speech change, focal weakness, seizures, loss of consciousness, weakness and headaches. Endo/Heme/Allergies: Negative for environmental allergies and polydipsia. Does not bruise/bleed easily. Psychiatric/Behavioral: Negative for depression, hallucinations, memory loss, substance abuse and suicidal ideas. The patient is not nervous/anxious and does not have insomnia. Physical Examination: Vitals:BP 138/95 Pulse 92 Temp 92 Ht 5' 5 (1.65m) Wt 152 lb (68.9kg) SpO2 96% BMI 25.29 kg/(m2). BP w/Orthostatic Vitals Date and Time Orthostatic BP Orthostatic Pulse BP Pulse BP Position BP Site BP Cuff Size 01/22/24 1515 -- -- 138/95 92 -- -- -- Last 2 Encounter Wt Readings: Date: Wt: 01/22/2024 68.9 kg (152 lb) 11/10/2023 69.3 kg (152 lb 12.8 oz) Physical Exam Constitutional: General: He is not in acute distress. Appearance: He is not diaphoretic. HENT: Head: Normocephalic and atraumatic. Right Ear: External ear norm (more content not included)...[facility]09-16-2024 History of Present illness Narrative* Fabricio Hall MD - 01/22/2024 4:35 PM EDT Images from the original note were not included. Fabricio Hall MD Interventional Cardiology [address] [place] [address] [phone] Chief Complaint Patient presents with: Consult HISTORY OF PRESENT ILLNESS: Mr. Jacobsen is a 88 year old male seen my office today for assessment management of preoperative evaluation patient had longstanding history of essential hypertension maintained on MICHELLE inhibitors recently was diagnosed with hernia and supposed to have surgery echocardiography was performed which revealed diagnosis of aortic stenosis patient has remained relatively asymptomatic denies any chest pain shortness of breath with exertion no signs or symptoms of congestive heart failure Echocardiography was performed on October 2023 shows normal left ventricular size with mildly decreased LV function ejection fraction 46% aortic valve shows tricuspid valve with moderate aortic stenosiscaused by calcified valve aortic valve area is 1.17 cm with a peak gradient of 24 and mean gradientof 14 dimensionless index of 0.37 Cardiac Risk Factors age (male over 45, female over 55), hyperlipidemia, hypertension, family history of CAD PAST MEDICAL HISTORY Diagnosis Date Congenital tracheoesophageal fistula, esophageal atresia and stenosis Diverticulosis of colon with hemorrhage Essential hypertension 07/24/2017 GERD (gastroesophageal reflux disease) 07/24/2017 Stricture and stenosis of esophagus PAST SURGICAL HISTORY Procedure Laterality Date EGD FLEXIBLE FOREIGN BODY REMOVAL 07/24/13 distal stenosis ESOPHAGOSCOPY FLEX BALLOON DILAT <30 MM DIAM 06/27/2008 Esophageal dilatation ESOPHAGOSCOPY FLEX BALLOON DILAT <30 MM DIAM 07/25/08 ESOPHAGOSCOPY FLEXIBLE REMOVAL FOREIGN BODY 05/27/08 ER [facility] PAST SURGICAL HISTORY OF Mid COLON RESECTION REPAIR INGUINAL HERNIA Left 07/25/2017 FAMILY HISTORY Problem Relation Age of Onset Cancer Mother colon Cancer Father ? Social History Tobacco Use Smoking status: Former Current packs/day: 0.00 Average packs/day: 1 pack/day for 25.0 years (25.0 ttl pk-yrs) Types: Cigarettes Start date: 06/02/1952 Quit date: 06/02/1977 Years since quittin.6 Smokeless tobacco: Never Vaping Use Vaping status: Never Used Substance Use Topics Alcohol use: No Drug use: No ALLERGIES Allergen Reactions Eggs [Egg] Hives, Shortness of Breath Medications: Current Outpatient Medications Medication Sig Dispense Refill tamsulosin (FLOMAX) 0.4 mg Take 1 capsule by mouth every afternoon. cyanocobalamin, vitamin B-12, (VITAMIN B-12 ORAL) B-12 CAPS [id number] 1.5 mg iron- 8.73 mg CpID Take by mouth. ferrous sulfate (IRON ORAL) Take by mouth. OMEPRAZOLE (PRILOSEC ORAL) Take by mouth. lisinopril (ZESTRIL) 10 mg tablet Take 1 tablet by mouth once daily. 30 tablet 4 No current facility-administered medications for this visit. Review of Systems Constitutional: Negative for chills, diaphoresis, fever, malaise/fatigue and weight loss. HENT: Negative for congestion, ear discharge, ear pain, hearing loss, nosebleeds, sinus pain, sore throat and tinnitus. Eyes: Negative for blurred vision, double vision, photophobia, pain, discharge and redness. Respiratory: Negative for cough, hemoptysis, sputum production, shortness of breath, wheezing and stridor. Cardiovascular: Negative for chest pain, palpitations, orthopnea, claudication, leg swelling and PND. Gastrointestinal: Negative for abdominal pain, blood in stool, constipation, diarrhea, heartburn, melena, nausea and vomiting. Genitourinary: Negative for dysuria, flank pain, frequency, hematuria and urgency. Musculoskeletal: Negative for back pain, falls, joint pain, myalgias and neck pain. Skin: Negative for itching and rash. Neurological: Negative for dizziness, tingling, tremors, sensory change, speech change, focal weakness, seizures, loss of consciousness, weakness and headaches. Endo/Heme/Allergies: Negative for environmental allergies and polydipsia. Does not bruise/bleed easily. Psychiatric/Behavioral: Negative for depression, hallucinations, memory loss, substance abuse and suicidal ideas. The patient is not nervous/anxious and does not have insomnia. Physical Examination: Vitals:BP 138/95 Pulse 92 Temp 92 Ht 5' 5 (1.65m) Wt 152 lb (68.9kg) SpO2 96% BMI 25.29 kg/(m^2). BP w/Orthostatic Vitals Date and Time Orthostatic BP Orthostatic Pulse BP Pulse BP Position BP Site BP Cuff Size 01/22/24 1515 -- -- 138/95 92 -- -- -- Last 2 Encounter Wt Readings: Date: Wt: 01/22/2024 68.9 kg (152 lb) 11/10/2023 69.3 kg (152 lb 12.8 oz) Physical Exam Constitutional: General: He is not in acute distress. Appearance: He is not diaphoretic. HENT: Head: Normocephalic and atraumatic. Right Ear: External ear normal. Left Ear: External ear normal. Nose: Nose normal. Mouth/Throat: Pharynx: Oropharynx is clear. Eyes: General: Right eye: No discharge. Left eye: No discharge. Conjunctiva/sclera: Conjunctivae normal. Pupils: Pupils are equal, round, and reactive to light. Cardiovascular: Rate and Rhythm: Normal rate and regular rhythm. Heart sounds: S1 normal and S2 normal. Murmur heard. No friction rub. No gallop. No S3 or S4 sounds. Pulmonary: Effort: Pulmonary effort is normal. No respiratory distress. Breath sounds: Normal breath sounds. No wheezing or rales. Chest: Chest wall: No tenderness. Abdominal: General: Abdomen is flat. Musculoskeletal: General: Normal range of motion. Cervical back: Normal range of motion and neck supple. Skin: General: Skin is warm and dry. Neurological: Mental Status: He is alert and oriented to person, place, and time. Psychiatric: Mood and Affect: Mood normal. Thought Content: Thought content normal. Judgment: Judgment normal. Pertinent Labs: CBC: Hemoglobin (g/dL) Date Value 11/10/2023 13.6 07/24/2017 14.7 Hematocrit (%) Date Value 11/10/2023 42.5 07/24/2017 46.2 WBC (k/uL) Date Value 11/10/2023 9.37 07/24/2017 9.11 Platelet Count (k/uL) Date Value 11/10/2023 187 07/24/2017 222 BMP: Glucose (mg/dL) Date Value 11/10/2023 76 07/24/2017 96 Potassium (mmol/L) Date Value 11/10/2023 4.3 07/24/2017 4.7 Sodium (mmol/L) Date Value 11/10/2023 145 07/24/2017 142 Chloride (mmol/L) Date Value 11/10/2023 110 07/24/2017 103 CO2 (mmol/L) Date Value 11/10/2023 24 07/24/2017 27 Creatinine (mg/dL) Date Value 11/10/2023 1.16 07/24/2017 1.09 BUN (mg/dL) Date Value 11/10/2023 23 07/24/2017 16 Anion Gap (mmol/L) Date Value 11/10/2023 11 07/24/2017 12 Calcium (mg/dL) Date Value 07/24/2017 9.7 Calcium, Total (mg/dL) Date Value 11/10/2023 9.5 INR: Lipid Profile: No results found for: CHOL, HDL, LDL, TG Hemoglobin A1C: No results found for: HGBA1C TSH: No results found for: TSHREFL Prior Cardiac Testing Echo Assessment and Plan: 88 years old gentleman with asymptomatic moderate aortic stenosis and hypertensive heart disease ASSESSMENT/PLAN: 1. Primary hypertension - ICD9: 401.9, ICD10: I10 (primary diagnosis) - Uncontrolled - Continue current medications - Recommend home blood pressure monitoring, to bring results to next visit - Encouraged sodium restriction, DASH or Mediterranean diet - Recommend regular aerobic exercise - ECHO - PERFLUTREN LIPID MICROSPHERES 1.1 MG/ML INJECTION IN NS 10 ML - SODIUM CHLORIDE 0.9 % (FLUSH) INJECTION SYRINGE Increase his lisinopril to 10 mg daily 2. Nonrheumatic aortic valve stenosis - ICD9: 424.1, ICD10: I35.0 Asymptomatic moderate aortic stenosis continue monitoring No indication for intervention at this time - ECHO - PERFLUTREN LIPID MICROSPHERES 1.1 MG/ML INJECTION IN NS 10 ML - SODIUM CHLORIDE 0.9 % (FLUSH) INJECTION SYRINGE 3. Preoperative clearance - ICD9: V72.84, ICD10: Z01.818 Patient cleared for his hernia surgery with mild to moderate risk Fabricio Hall MD Follow up plannin months Electronically signed by Fabricio Hall MD on January 22, 2024, 4:35 PM The above note was partially created using a dictation recognition software. A reasonable attempt has been made to correct any errors. documented in this encounterCleveland Clinic Foundation08-08-2024 Miscellaneous Notes* Telephone Encounter - Emerald Starks - 12/14/2023 10:00 AM EDT Second Attempt- Called pt and left vm to call back to get schedule * Telephone Encounter - Billie Dent - 12/13/2023 9:18 AM EDT First attempt at contacting patient, no answer, unable to leave VM, will try again later * Telephone Encounter - Livia Oshea, RN - 12/13/2023 8:32 AM EDT Attempted to call patient and left VM. Next new consult opening is 06/24/24. If patient calls back ask if he is willing to travel to other locations for cardiology appointment and if so what other locations is he willing to go to? Will reach out to [facility] to see if they will be able to get him in sooner. * Telephone Encounter - Priscilla Colindres - 12/12/2023 2:57 PM EDT Patient did not complete 12/10 cardiology visit as it was cancelled due to provider being out. Please reach out to patient and schedule as soon as possible as he is wishing to have his hernia surgery completed. Priscilla Colindres Supervisor Beam Department * Telephone Encounter - Priscilla Colindres - 11/10/2023 12:30 PM EDT Patient accepted sooner date for cardiology of 12/11/2023 Surgery date to be determined upon clearance ' Priscilla Colindres Supervisor Beam Department * Telephone Encounter - Priscilla Colindres - 11/10/2023 12:30 PM EDT OK, please let him know he will be cancelled for Monday. Let's try to get a cardiology appointment soon . Thanks Tyler * Telephone Encounter - Mary Lynn APRN.INSTRUCTIONAL SYSTEMS SPECIALIST - 11/10/2023 10:50 AM EDT After review of pt's chart. Anesthesia request a formal cardiac consult. Order placed. Surgery is schedueld for this upcoming Monday. Please postpone until clearance is received. Nilson Hernandez, He has new diagnosis of CHF and and is 88 years old. The risk is too high to proceed without cardiology input. Postpone surgery. Consult cardiology. Claudene documented in this encounterCleveland Clinic Foundation08-08-2024 Telephone encounter Note * Telephone Encounter - Emerald Starks - 12/14/2023 10:00 AM EDT Second Attempt- Called pt and left vm to call back to get schedule [facility]08-07-2024 Telephone encounter Note* Telephone Encounter - Billie Dent - 12/13/2023 9:18 AM EDT First attempt at contacting patient, no answer, unable to leave VM, will try again later [facility]08-07-2024 Telephone encounter Note* Telephone Encounter - Livia Oshea, RN - 12/13/2023 8:32 AM EDT Attempted to call patient and left VM. Next new consult opening is 06/24/24. If patient calls back ask if he is willing to travel to other locations for cardiology appointment and if so what other locations is he willing to go to? Will reach out to [facility] to see if they will be able to get him in sooner. [facility]08-06-2024 Telephone encounter Note* Telephone Encounter - Priscilla Colindres - 12/12/2023 2:57 PM EDT Patient did not complete 12/10 cardiology visit as it was cancelled due to provider being out. Please reach out to patient and schedule as soon as possible as he is wishing to have his hernia surgery completed. Priscilla Colindres Supervisor Be[employer] Department [facility]07-05-2024 Telephone encounter Note* Telephone Encounter - Priscilla Colindres - 11/10/2023 12:30 PM EDT Patient accepted sooner date for cardiology of 12/11/2023 Surgery date to be determined upon clearance ' Priscilla Colindres Supervisor Beam Department [facility]07-05-2024 Telephone encounter Note* Telephone Encounter - Priscilla Colindres - 11/10/2023 12:30 PM EDT OK, please let him know he will be cancelled for Monday. Let's try to get a cardiology appointment soon . Kelvin Scott [facility]07-05-2024 Telephone encounter Note* Telephone Encounter - Mary Lynn APRN.CNP - 11/10/2023 10:50 AM EDT After review of pt's chart. Anesthesia request a formal cardiac consult. Order placed. Surgery is schedueld for this upcoming Monday. Please postpone until clearance is received. Nilson Hernandez, He has new diagnosis of CHF and and is 88 years old. The risk is too high to proceed without cardiology input. Postpone surgery. Consult cardiology. Abby [facility]07-05-2024 Instructions* Patient Instructions* Mary Lynn APRN.CNP - 11/10/2023 9:05 AM EDT Images from the original note were not included. [facility] PATIENT PREOPERATIVE INSTRUCTIONS Jacqueline Espinal MD has scheduled you for your procedure at this surgery center: [facility]: [phone] -- [address] [address]. Please read below carefully for your personalized instructions. Dietary Restrictions: - No solid food after midnight. - You may have 12 ounces of clear liquids (water, clear juices such as apple juice or gatorade, carbonated beverages, clear tea, black coffee, jello) until 2 hours before scheduled arrival at facility. No red/purple coloring and no creamer/sugar Medications: Unless instructed differently below, stay on all of your medications until your surgery. If you start any new medications after today's visit, please contact your surgeon. Pre-Surgery Med Instructions Medication Instructions tamsulosin (FLOMAX) 0.4 mg Take the day of surgery with a small sip of water cyanocobalamin, vitamin B-12, (VITAMIN B-12 ORAL) Stop 7 days before surgery [id number] 1.5 mg iron- 8.73 mg CpID Stop 7 days before surgery ferrous sulfate (IRON ORAL) Stop 7 days before surgery lisinopril 2.5 mg tablet Do not take the day of surgery OMEPRAZOLE (PRILOSEC ORAL) Take the day of surgery with a small sip of water If you take any medications for erectile dysfunction-Cialis (Tadalafil), Levitra, Staxyn (Vardenafil) Viagra (Sildenenafil please do not take these for 48 hours before surgery. If you start any new medications after today's visit, please contact the surgeon's office. Blood Thinning Medications: - Stop NSAIDS (Ibuprofen, Advil, Aleve, Motrin, Celebrex, Mobic, etc.) 7 days before surgery, as directed by your surgeon. - Stop Aspirin 7 days before surgery, as directed by your surgeon. - Stop Vitamin E, ALL multi-vitamins, herbals and dietary supplements 7 days before surgery. - You may take Tylenol (Acetaminophen) or any of your pain medications that do not contain aspirin or NSAIDS as needed. Important Reminders: - Candy, mints, and tobacco products are NOT permitted the morning of surgery. - Hearing aids, dentures and glasses may be worn the morning of surgery. - NO jewelry, body piercings, makeup, hairpins or contacts are to be worn the day of surgery. If you develop symptoms such as a fever, cold, or flu, or have other changes to your health within TWO DAYS of scheduled surgery or the morning of surgery, please contact the surgery center above. Personal Belongings: -Please have photo ID and insurance cards. -If you do not have a copy of advance directives on file with us, please bring a copy with you on the day of surgery. - Leave ALL valuables and money at home or with family members. For Outpatient Procedures: - YOU MUST HAVE A RESPONSIBLE CMA OR LPN TAKE YOU HOME. A TAVERN CAR ATTENDANT OR OUTSIDE SALES MANAGER CANNOT BE MADE A RESPONSIBLE CMA OR LPN. - We recommend that a responsible person stays with you overnight to take care of you. - You cannot stay in a hotel alone after outpatient surgery. You will not be permitted to have yoursurgery, if you do not have someone to take care of you. Arrival Time for Surgery: - The Surgery Center or hospital where you are having surgery will call the afternoon before surgery (or Monday for Monday surgery) with a scheduled arrival time. - If you have not heard by 4 pm, please contact the surgery center above. Please be aware that emergency situations arise, which may delay or change your surgical time. If this happens, we will notify you as soon as possible and regret any inconvenience. If you already have an Advance Directive, please fax a copy to [phone] or email to for it to be added to your chart. If you do not have an Advance Directive, you can find the appropriate form and more information at [email or web address]. We recommend that youcomplete the Advance Directive form found on the website and bring it with you the day of your surgery. It can be witnessed and scanned into your chart that day. Mary Lynn APRN.CNP [facility] History and physical note * Mary Lynn APRN.CNP - 11/10/2023 9:02 AM EDT Images from the original note were not included. [facility] HISTORY AND PHYSICAL EXAMINATION SERVICE DATE: 11/10/2023 SERVICE TIME: 9:40 AM PRIMARY CARE PHYSICIAN: Daniel Perez MD Assessment Patient has the following medical conditions which may affect mile-operative course: Essential hypertension Assessment: controlled on rx Last 14 BP Last 14 Encounter BP Readings: Date: BP: 11/10/2023 122/76 10/27/2023 138/80 10/10/2023 134/84 07/24/2017 159/83 07/19/2017 157/76 07/19/2017 163/86 12/14/2015 120/72 VHD (valvular heart disease) Assessment: new finding on echo ordered by surgeon, AVS moderate, AV 1.17cm2, trace-1+ MVR, trace-1+ TVR, 1+-2+ PVR, email to anesthesia. Pt denies sob, BOYCE, orthopnea, CP, palpitations Recent Results (from the past 29690 hour(s)) ECHO Collection Time: 10/19/23 1:39 PM Impression CONCLUSIONS: - Exam indication: Cardiac murmur - The left ventricle is normal in size. Left ventricular systolic function is mildly decreased. EF = 46 5% (2D biplane) Indeterminate left ventricular diastolic dysfunction. - The right ventricle is normal in size. Right ventricular systolic function is normal. - The left atrial cavity is mildly dilated. - Tricuspid aortic valve. There is moderate aortic valve stenosis caused by calcified valve. AV area is 1.17 cm (0.65 cm /m ) by continuity, VTI. The peak gradient is 24 mmHg, the mean gradient is 14 mmHg and the dimensionless valve index is 0.37. - The patient has not had a prior CC echocardiographic exam for comparison. * * * Final * * * GERD (gastroesophageal reflux disease) Assessment: controlled on rx BPH (benign prostatic hyperplasia) Assessment: controlled on rx Former smoker Assessment: 1ppd/40 years, denies asthma or COPD, pulse of 95% on RA, lungs CTA Esophageal stricture Assessment: hx dilation Asthma Assessment: pt states since childhood, does not use any inhalers, no PFT's on file, pt presented Monday with surgery on Monday Branch Activity Status Index: METS: Climb a flight of stairs or walk up a hill (5.50 METs) DASI Score: 5.5 Patient denies any chest pain or undue shortness of breath with the above physical activity. Clinical Frailty Scale: 3. Well, with treated comorbid disease STOP-Bang Score: Has or is being treated for high blood pressure Patient over 50 years old Male patient Denies snoring loudly Denies feeling tired, fatigued, or sleepy during the daytime Has not been observed to stop breathing or choking/gasping during sleep BMI less than or equal to 35 kg/m^2 Does not have a large neck STOP-Bang Score: 3 [id number] Score: Age: >=75 Sex: male CHF history: No Hypertension history: Yes Stroke/TIA/thromboembolism history: No Vascular disease history: No Diabetes history: No [id number] Score: 3 ARISCAT Score: Age: >80 Preoperative SpO2: 91-95% Respiratory infection in the last month: No Preoperative anemia: Yes Surgical incision: peripheral Duration of surgery: 2-3 hrs Emergency procedure: No ARISCAT Score: 51 ANESTHESIA FINDINGS: Intubation History: No history of difficult intubation Significant Anesthesia Considerations: none Airway History: No history of difficult airway I - PHYSICAL EVALUATION AIRWAY Patient intubated: No. Tracheostomy tube not present Mallampati: I. TM distance: >3 FB. Neck ROM: full ROM without neurological symptoms. Mouth opening: adequate. Short neck: no. Thick neck: no Edmond present: no Lip Bite Test: I Microretrognathia/Micronagthia/Recessed Chin: No DENTAL Dental findings: teeth intact. II - ANESTHESIA PLAN Anesthetic Plan: other Beta Tj Monitoring Plan Post Procedure Analgesic Plan Informed Consent Anesthetic risks, benefits, alternatives, personnel and consent discussed: yes. Patient / Responsible Democrat agrees to proceed: yes Patient / Surrogate agrees to blood products: blood products not planned Discussed the possibility of lip / dental damage: yes Prepared for Surgery: optimally prepared for surgery, pending [see comment]. Labs, EKG Email to anesthesia reviewing echo results AVS-LUCIANO After review anesthesia requests formal cardiac evaluation prior to surgery, see TE CONSULTS: The following consults have been initiated at this time: cardiology. Planned Anesthetic: other anesthesia choice The Following Tests/Procedures Have Been Initiated: Orders Placed This Encounter >CBC + AUTO DIFF Standing Status: Future Standing Expiration Date: 02/09/2024 >CMP Standing Status: Future Standing Expiration Date: 02/09/2024 ECG COMPLETE Standing Status: Future Standing Expiration Date: 11/09/2024 REASON FOR VISIT: Ayesha Jacobsen is a 88 year old male who is scheduled for Procedure(s) with comments: HERNIORRHAPHY INGUINAL ELECTIVE ADULT REDUCIBLE (Right) - HERNIORRHAPHY INGUINAL ELECTIVE ADULT REDUCIBLE [6004] at the request of Dr. Jacqueline Espinal for consultation. My final recommendation willbe communicated back to the requesting physician by way of shared medical record or letter. Subjective The patient has the following: ACTIVE PROBLEM LIST Left Inguinal Hernia Essential Hypertension Gerd (Gastroesophageal Reflux Disease) Vhd (Valvular Heart Disease) Bph (Benign Prostatic Hyperplasia) Former Smoker Esophageal Stricture Asthma COVID-19 Immunization Status Overdue - Covid-19 Vaccine ( season) Never done No completion, postpone, frequency change, or communication history exists for this topic. CHIEF COMPLAINT: Pre-op exam HPI: Ayesha Jacobsen is a 88 year old seen for PAC due to scheduled above surgery because of RIH. 10/27/2023, Dr. Jacqueline Espinal HPI: Ayesha is a 88 year old male with a complaint of a bulge and discomfort in his right inguinal region. The patient notes discomfort in this area with lifting, coughing, and moving. The symptoms have increased, over the past 2 months. The patient notes no symptoms of bowel obstruction and denies nausea or vomiting. The patient was seen by his primary care physician who felt the patient has a hernia. Ayesha was referred for evaluation and treatment. The patient undergone a previous laparoscopic left inguinal hernia repair he noted that he and his had noted that he had a long time waking up from anesthesia. The patient denies any cardiac issues. The patient is being seen by me at the request of Dr. Daniel Perez MD for my opinion and advice regarding symptomatic right inguinal hernia. His daughter Shay, my former office nurse also wished him to see me. He was found to have a systolic ejection murmur on his last office visit. I ordered an echocardiogram. This was obtained on October 19, 2023. This demonstrated: CONCLUSIONS: - Exam indication: Cardiac murmur - The left ventricle is normal in size. Left ventricular systolic function is mildly decreased. EF = 46 5% (2D biplane) Indeterminate left ventricular diastolic dysfunction. - The right ventricle is normal in size. Right ventricular systolic function is normal. - The left atrial cavity is mildly dilated. - Tricuspid aortic valve. There is moderate aortic valve stenosis caused by calcified valve. AV area is 1.17 cm (0.65 cm /m ) by continuity, VTI. The peak gradient is 24 mmHg, the mean gradient is 14 mmHg and the dimensionless valve index is 0.37. - The patient has not had a prior CC echocardiographic exam for comparison. REVIEW OF SYSTEMS: General: No weight loss, malaise or fevers. Neurological: +balance issues. 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 No neurological symptoms or problems. Respiratory: +former smoker 1ppd/40 years. No history of current cough or dyspnea, or pneumonia in the past 6 weeks. No history of respiratory/pulmonary symptoms or problems. Cardiovascular: Positive for: hypertension (on rx) and murmur/valvular heart disease (moderate AVS) Negative for: anticoagulation therapy, arrhythmia, atrial fibrillation, CAD, chest pain, CHF, congenital heart defect, DVT/PE, hyperlipidemia, recent VA, open heart surgery and valve surgery. GI: See HPI. Positive for: esophageal stricture (s/p dilation) Negative for: abdominal pain, hepatitis, irritable bowel syndrome, inflammatory bowel disease, liver disease, nausea, pancreatitis and vomiting. : Positive for: BPH (on rx). Negative for: urinary incontinence, nephrolithiasis, renal failure and urinary tract infection. Endocrine: No history of diabetes. Has not taken steroids within the past 30 days. No history of endocrinological symptoms or problems. Hematology: No history of bleeding or clotting disorder. Patient is not taking anti-coagulation or platelet medications. No history of hematological symptoms or problems. Oncology: No history of CA metastasis, chemo within 30 days, or radiotherapy within 90 days. No history of oncological symptoms or problems. Psych: No history of psychiatric symptoms or problems. Musculoskeletal: Negative for joint pain or swelling, back pain or muscle pain. Skin: Negative for lesions, rash and itching. PAST MEDICAL HISTORY Diagnosis Date Congenital tracheoesophageal fistula, esophageal atresia and stenosis Diverticulosis of colon with hemorrhage Essential hypertension 07/24/2017 GERD (gastroesophageal reflux disease) 07/24/2017 Stricture and stenosis of esophagus PAST SURGICAL HISTORY Procedure Laterality Date EGD FLEXIBLE FOREIGN BODY REMOVAL 07/24/13 distal stenosis ESOPHAGOSCOPY FLEX BALLOON DILAT <30 MM DIAM 06/27/2008 Esophageal dilatation ESOPHAGOSCOPY FLEX BALLOON DILAT <30 MM DIAM 07/25/08 ESOPHAGOSCOPY FLEXIBLE REMOVAL FOREIGN BODY 05/27/08 ER [facility] PAST SURGICAL HISTORY OF Mid COLON RESECTION REPAIR INGUINAL HERNIA Left 07/25/2017 FAMILY HISTORY Problem Relation Age of Onset Cancer Mother colon Cancer Father ? Social History Tobacco Use Smoking status: Former Packs/day: 1.00 Years: 25.00 Additional pack years: 0.00 Total pack years: 25.00 Types: Cigarettes Quit date: 06/02/1977 Years since quittin.4 Smokeless tobacco: Never Vaping Use Vaping Use: Never used Substance Use Topics Alcohol use: No Drug use: No Prior to Admission medications as of 10/27/23 1442 Medication Sig Last Dose Taking tamsulosin (FLOMAX) 0.4 mg Take 1 capsule by mouth every afternoon. Taking Yes cyanocobalamin, vitamin B-12, (VITAMIN B-12 ORAL) B-12 CAPS Taking Yes [id number] 1.5 mg iron- 8.73 mg CpID Take by mouth. Taking Yes ferrous sulfate (IRON ORAL) Take by mouth. Taking Yes lisinopril 2.5 mg tablet Take 5 mg by mouth once daily. Pt take .5 tablets once daily Taking Yes OMEPRAZOLE (PRILOSEC ORAL) Take by mouth. Taking Yes No medication comments found. ALLERGIES Allergen Reactions Eggs [Egg] Hives, Shortness of Breath Objective PHYSICAL EXAM: General: alert and oriented (x3) and healthy appearance. Pertinent negatives noted - not distressed. Skin: normal color, no rash or lesions. HEENT: EOM intact and pupils equal round. Pertinent negatives noted - no carotid bruit. Cardiovascular: regular rate and rhythm, normal S1 and S2, no rub, murmurs, or gallop. Respiratory: normal breath sounds, no wheezes or crackles. No chest wall deformity or tenderness. Abdomen: soft. Pertinent negatives noted - not tender. Extremities: no deformity, no edema or tenderness, no joint swelling or clubbing. Neurological: normal cognition and motor skills. Gait normal. No weakness or sensory deficit. PAIN ASSESSMENT: VITALS: BP 122/76 Pulse 104 Resp 17 Wt 152 lb 12.8 oz (69.3kg) SpO2 95% Diagnostic tests reviewed for today's visit: Lab Value Units Date High Low HB No results within date range. HCT No results within date range. WBC No results within date range. PLT No results within date range. NA No results within date range. K No results within date range. GLUC No results within date range. BUN No results within date range. CREAT No results within date range. PTSEC No results within date range. INR No results within date range. APTT No results within date range. ALT No results within date range. AST No results within date range. TBILI No results within date range. TSH No results within date range. Lab Value Units Date High Low HCGQT No results within date range. UHCG No results within date range. HCG, BODY* No results within date range. Lab Value Units Date High Low ABORHD No results within date range. ABSCREEN No results within date range. No results found for: HBA1C Recent Results (from the past 8760 hour(s)) ECG COMPLETE Collection Time: 11/10/23 9:43 AM Result Value Ventricular Rate 92 Atrial Rate 92 P-R Interval 194 QRS Duration 98 QT Interval 388 QTC Calculation (Bazett) 479 Calculated P [place] 43 Calculated R [place] -38 Calculated T [place] 43 Impression SINUS RHYTHM WITH FREQUENT PREMATURE VENTRICULAR COMPLEXES LEFT AXIS DEVIATION INFERIOR MYOCARDIAL INFARCTION , AGE UNDETERMINED ABNORMAL ECG Recent Results (from the past 17771 hour(s)) ECHO Collection Time: 10/19/23 1:39 PM Impression CONCLUSIONS: - Exam indication: Cardiac murmur - The left ventricle is normal in size. Left ventricular systolic function is mildly decreased. EF = 46 5% (2D biplane) Indeterminate left ventricular diastolic dysfunction. - The right ventricle is normal in size. Right ventricular systolic function is normal. - The left atrial cavity is mildly dilated. - Tricuspid aortic valve. There is moderate aortic valve stenosis caused by calcified valve. AV area is 1.17 cm (0.65 cm /m ) by continuity, VTI. The peak gradient is 24 mmHg, the mean gradient is 14 mmHg and the dimensionless valve index is 0.37. - The patient has not had a prior CC echocardiographic exam for comparison. * * * Final * * * Instructions Given to Patient: Instructions located in the after visit summary. Patient given verbal and written preop instructions and voices comprehension and compliance. SIGNATURE: Mary Lynn APRN.CNP PATIENT NAME: Ayesha Jacobsen DATE: November 10, 2023 TIME: 9:02 AM PAGER/CONTACT #: [facility]07-05-2024 History and physical note* Mary Lynn APRN.CNP - 11/10/2023 9:02 AM EDT Images from the original note were not included. [facility] HISTORY AND PHYSICAL EXAMINATION SERVICE DATE: 11/10/2023 SERVICE TIME: 9:40 AM PRIMARY CARE PHYSICIAN: Daniel Perez MD Assessment Patient has the following medical conditions which may affect mile-operative course: Essential hypertension Assessment: controlled on rx Last 14 BP Last 14 Encounter BP Readings: Date: BP: 11/10/2023 122/76 10/27/2023 138/80 10/10/2023 134/84 07/24/2017 159/83 07/19/2017 157/76 07/19/2017 163/86 12/14/2015 120/72 VHD (valvular heart disease) Assessment: new finding on echo ordered by surgeon, BLANCA moderate, AV 1.17cm2, trace-1+ MVR, trace-1+ TVR, 1+-2+ PVR, email to anesthesia. Pt denies sob, BOYCE, orthopnea, CP, palpitations Recent Results (from the past 14104 hour(s)) ECHO Collection Time: 10/19/23 1:39 PM Impression CONCLUSIONS: - Exam indication: Cardiac murmur - The left ventricle is normal in size. Left ventricular systolic function is mildly decreased. EF = 46 5% (2D biplane) Indeterminate left ventricular diastolic dysfunction. - The right ventricle is normal in size. Right ventricular systolic function is normal. - The left atrial cavity is mildly dilated. - Tricuspid aortic valve. There is moderate aortic valve stenosis caused by calcified valve. AV area is 1.17 cm (0.65 cm /m ) by continuity, VTI. The peak gradient is 24 mmHg, the mean gradient is 14 mmHg and the dimensionless valve index is 0.37. - The patient has not had a prior CC echocardiographic exam for comparison. * * * Final * * * GERD (gastroesophageal reflux disease) Assessment: controlled on rx BPH (benign prostatic hyperplasia) Assessment: controlled on rx Former smoker Assessment: 1ppd/40 years, denies asthma or COPD, pulse of 95% on RA, lungs CTA Esophageal stricture Assessment: hx dilation Asthma Assessment: pt states since childhood, does not use any inhalers, no PFT's on file, pt presented Monday with surgery on Monday Branch Activity Status Index: METS: Climb a flight of stairs or walk up a hill (5.50 METs) DASI Score: 5.5 Patient denies any chest pain or undue shortness of breath with the above physical activity. Clinical Frailty Scale: 3. Well, with treated comorbid disease STOP-Bang Score: Has or is being treated for high blood pressure Patient over 50 years old Male patient Denies snoring loudly Denies feeling tired, fatigued, or sleepy during the daytime Has not been observed to stop breathing or choking/gasping during sleep BMI less than or equal to 35 kg/m^2 Does not have a large neck STOP-Bang Score: 3 [id number] Score: Age: >=75 Sex: male CHF history: No Hypertension history: Yes Stroke/TIA/thromboembolism history: No Vascular disease history: No Diabetes history: No [id number] Score: 3 ARISCAT Score: Age: >80 Preoperative SpO2: 91-95% Respiratory infection in the last month: No Preoperative anemia: Yes Surgical incision: peripheral Duration of surgery: 2-3 hrs Emergency procedure: No ARISCAT Score: 51 ANESTHESIA FINDINGS: Intubation History: No history of difficult intubation Significant Anesthesia Considerations: none Airway History: No history of difficult airway I - PHYSICAL EVALUATION AIRWAY Patient intubated: No. Tracheostomy tube not present Mallampati: I. TM distance: >3 FB. Neck ROM: full ROM without neurological symptoms. Mouth opening: adequate. Short neck: no. Thick neck: no Edmond present: no Lip Bite Test: I Microretrognathia/Micronagthia/Recessed Chin: No DENTAL Dental findings: teeth intact. II - ANESTHESIA PLAN Anesthetic Plan: other Beta Tj Monitoring Plan Post Procedure Analgesic Plan Informed Consent Anesthetic risks, benefits, alternatives, personnel and consent discussed: yes. Patient / Responsible Democrat agrees to proceed: yes Patient / Surrogate agrees to blood products: blood products not planned Discussed the possibility of lip / dental damage: yes Prepared for Surgery: optimally prepared for surgery, pending [see comment]. Labs, EKG Email to anesthesia reviewing echo results MUMTAZ After review anesthesia requests formal cardiac evaluation prior to surgery, see TE CONSULTS: The following consults have been initiated at this time: cardiology. Planned Anesthetic: other anesthesia choice The Following Tests/Procedures Have Been Initiated: Orders Placed This Encounter >CBC + AUTO DIFF Standing Status: Future Standing Expiration Date: 02/09/2024 >CMP Standing Status: Future Standing Expiration Date: 02/09/2024 ECG COMPLETE Standing Status: Future Standing Expiration Date: 11/09/2024 REASON FOR VISIT: Ayesha Jacobsen is a 88 year old male who is scheduled for Procedure(s) with comments: HERNIORRHAPHY INGUINAL ELECTIVE ADULT REDUCIBLE (Right) - HERNIORRHAPHY INGUINAL ELECTIVE ADULT REDUCIBLE [6004] at the request of Dr. Jacqueline Espinal for consultation. My final recommendation willbe communicated back to the requesting physician by way of shared medical record or letter. Subjective The patient has the following: ACTIVE PROBLEM LIST Left Inguinal Hernia Essential Hypertension Gerd (Gastroesophageal Reflux Disease) Vhd (Valvular Heart Disease) Bph (Benign Prostatic Hyperplasia) Former Smoker Esophageal Stricture Asthma COVID-19 Immunization Status Overdue - Covid-19 Vaccine ( season) Never done No completion, postpone, frequency change, or communication history exists for this topic. CHIEF COMPLAINT: Pre-op exam HPI: Ayesha Jacobsen is a 88 year old seen for PAC due to scheduled above surgery because of RIH. 10/27/2023, Dr. Jacqueline Espinal HPI: Ayesha is a 88 year old male with a complaint of a bulge and discomfort in his right inguinal region. The patient notes discomfort in this area with lifting, coughing, and moving. The symptoms have increased, over the past 2 months. The patient notes no symptoms of bowel obstruction and denies nausea or vomiting. The patient was seen by his primary care physician who felt the patient has a hernia. Ayesha was referred for evaluation and treatment. The patient undergone a previous laparoscopic left inguinal hernia repair he noted that he and his had noted that he had a long time waking up from anesthesia. The patient denies any cardiac issues. The patient is being seen by me at the request of Dr. Daniel Perez MD for my opinion and advice regarding symptomatic right inguinal hernia. His daughter Shay, my former office nurse also wished him to see me. He was found to have a systolic ejection murmur on his last office visit. I ordered an echocardiogram. This was obtained on October 19, 2023. This demonstrated: CONCLUSIONS: - Exam indication: Cardiac murmur - The left ventricle is normal in size. Left ventricular systolic function is mildly decreased. EF = 46 5% (2D biplane) Indeterminate left ventricular diastolic dysfunction. - The right ventricle is normal in size. Right ventricular systolic function is normal. - The left atrial cavity is mildly dilated. - Tricuspid aortic valve. There is moderate aortic valve stenosis caused by calcified valve. AV area is 1.17 cm (0.65 cm /m ) by continuity, VTI. The peak gradient is 24 mmHg, the mean gradient is 14 mmHg and the dimensionless valve index is 0.37. - The patient has not had a prior CC echocardiographic exam for comparison. REVIEW OF SYSTEMS: General: No weight loss, malaise or fevers. Neurological: +balance issues. 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 No neurological symptoms or problems. Respiratory: +former smoker 1ppd/40 years. No history of current cough or dyspnea, or pneumonia in the past 6 weeks. No history of respiratory/pulmonary symptoms or problems. Cardiovascular: Positive for: hypertension (on rx) and murmur/valvular heart disease (moderate AVS) Negative for: anticoagulation therapy, arrhythmia, atrial fibrillation, CAD, chest pain, CHF, congenital heart defect, DVT/PE, hyperlipidemia, recent VA, open heart surgery and valve surgery. GI: See HPI. Positive for: esophageal stricture (s/p dilation) Negative for: abdominal pain, hepatitis, irritable bowel syndrome, inflammatory bowel disease, liver disease, nausea, pancreatitis and vomiting. : Positive for: BPH (on rx). Negative for: urinary incontinence, nephrolithiasis, renal failure and urinary tract infection. Endocrine: No history of diabetes. Has not taken steroids within the past 30 days. No history of endocrinological symptoms or problems. Hematology: No history of bleeding or clotting disorder. Patient is not taking anti-coagulation or platelet medications. No history of hematological symptoms or problems. Oncology: No history of CA metastasis, chemo within 30 days, or radiotherapy within 90 days. No history of oncological symptoms or problems. Psych: No history of psychiatric symptoms or problems. Musculoskeletal: Negative for joint pain or swelling, back pain or muscle pain. Skin: Negative for lesions, rash and itching. PAST MEDICAL HISTORY Diagnosis Date Congenital tracheoesophageal fistula, esophageal atresia and stenosis Diverticulosis of colon with hemorrhage Essential hypertension 07/24/2017 GERD (gastroesophageal reflux disease) 07/24/2017 Stricture and stenosis of esophagus PAST SURGICAL HISTORY Procedure Laterality Date EGD FLEXIBLE FOREIGN BODY REMOVAL 07/24/13 distal stenosis ESOPHAGOSCOPY FLEX BALLOON DILAT <30 MM DIAM 06/27/2008 Esophageal dilatation ESOPHAGOSCOPY FLEX BALLOON DILAT <30 MM DIAM 07/25/08 ESOPHAGOSCOPY FLEXIBLE REMOVAL FOREIGN BODY 05/27/08 ER [facility] PAST SURGICAL HISTORY OF Mid COLON RESECTION REPAIR INGUINAL HERNIA Left 07/25/2017 FAMILY HISTORY Problem Relation Age of Onset Cancer Mother colon Cancer Father ? Social History Tobacco Use Smoking status: Former Packs/day: 1.00 Years: 25.00 Additional pack years: 0.00 Total pack years: 25.00 Types: Cigarettes Quit date: 06/02/1977 Years since quittin.4 Smokeless tobacco: Never Vaping Use Vaping Use: Never used Substance Use Topics Alcohol use: No Drug use: No Prior to Admission medications as of 10/27/23 1442 Medication Sig Last Dose Taking tamsulosin (FLOMAX) 0.4 mg Take 1 capsule by mouth every afternoon. Taking Yes cyanocobalamin, vitamin B-12, (VITAMIN B-12 ORAL) B-12 CAPS Taking Yes [id number] 1.5 mg iron- 8.73 mg CpID Take by mouth. Taking Yes ferrous sulfate (IRON ORAL) Take by mouth. Taking Yes lisinopril 2.5 mg tablet Take 5 mg by mouth once daily. Pt take .5 tablets once daily Taking Yes OMEPRAZOLE (PRILOSEC ORAL) Take by mouth. Taking Yes No medication comments found. ALLERGIES Allergen Reactions Eggs [Egg] Hives, Shortness of Breath Objective PHYSICAL EXAM: General: alert and oriented (x3) and healthy appearance. Pertinent negatives noted - not distressed. Skin: normal color, no rash or lesions. HEENT: EOM intact and pupils equal round. Pertinent negatives noted - no carotid bruit. Cardiovascular: regular rate and rhythm, normal S1 and S2, no rub, murmurs, or gallop. Respiratory: normal breath sounds, no wheezes or crackles. No chest wall deformity or tenderness. Abdomen: soft. Pertinent negatives noted - not tender. Extremities: no deformity, no edema or tenderness, no joint swelling or clubbing. Neurological: normal cognition and motor skills. Gait normal. No weakness or sensory deficit. PAIN ASSESSMENT: VITALS: BP 122/76 Pulse 104 Resp 17 Wt 152 lb 12.8 oz (69.3kg) SpO2 95% Diagnostic tests reviewed for today's visit: Lab Value Units Date High Low HB No results within date range. HCT No results within date range. WBC No results within date range. PLT No results within date range. NA No results within date range. K No results within date range. GLUC No results within date range. BUN No results within date range. CREAT No results within date range. PTSEC No results within date range. INR No results within date range. APTT No results within date range. ALT No results within date range. AST No results within date range. TBILI No results within date range. TSH No results within date range. Lab Value Units Date High Low HCGQT No results within date range. UHCG No results within date range. HCG, BODY* No results within date range. Lab Value Units Date High Low ABORHD No results within date range. ABSCREEN No results within date range. No results found for: HBA1C Recent Results (from the past 8760 hour(s)) ECG COMPLETE Collection Time: 11/10/23 9:43 AM Result Value Ventricular Rate 92 Atrial Rate 92 P-R Interval 194 QRS Duration 98 QT Interval 388 QTC Calculation (Bazett) 479 Calculated P [place] 43 Calculated R [place] -38 Calculated T [place] 43 Impression SINUS RHYTHM WITH FREQUENT PREMATURE VENTRICULAR COMPLEXES LEFT AXIS DEVIATION INFERIOR MYOCARDIAL INFARCTION , AGE UNDETERMINED ABNORMAL ECG Recent Results (from the past 61706 hour(s)) ECHO Collection Time: 10/19/23 1:39 PM Impression CONCLUSIONS: - Exam indication: Cardiac murmur - The left ventricle is normal in size. Left ventricular systolic function is mildly decreased. EF = 46 5% (2D biplane) Indeterminate left ventricular diastolic dysfunction. - The right ventricle is normal in size. Right ventricular systolic function is normal. - The left atrial cavity is mildly dilated. - Tricuspid aortic valve. There is moderate aortic valve stenosis caused by calcified valve. AV area is 1.17 cm (0.65 cm /m ) by continuity, VTI. The peak gradient is 24 mmHg, the mean gradient is 14 mmHg and the dimensionless valve index is 0.37. - The patient has not had a prior CC echocardiographic exam for comparison. * * * Final * * * Instructions Given to Patient: Instructions located in the after visit summary. Patient given verbal and written preop instructions and voices comprehension and compliance. SIGNATURE: Mary Lynn APRN.CNP PATIENT NAME: Ayesha Jacobsen DATE: November 10, 2023 TIME: 9:02 AM PAGER/CONTACT #: documented in this encounterC[facility]06-[facility]-2024 NoteHNO ID: [id number] Author: JACQUELINE ESPINAL MD Service: ? Author Type: Physician Type: Progress Notes Filed: 10/27/2023 17:21 Note Text: HISTORY AND PHYSICAL Ayesha Jacobsen 1935 REFERRING PHYSICIAN: Daniel Perez MD CHIEF COMPLAINT: Consult (Right hernia repair) HPI: Ayesha is a 88 year old male with a complaint of a bulge and discomfort in his right inguinal region. The patient notes discomfort in this area with lifting, coughing, and moving. The symptoms have increased, over the past 2 months. The patient notes no symptoms of bowel obstruction and denies nausea or vomiting. The patient was seen by his primary care physician who felt the patient has a hernia. Ayesha was referred for evaluation and treatment. The patient undergone a previous laparoscopic left inguinal hernia repair he noted that he and his had noted that he had a long time waking up from anesthesia. The patient denies any cardiac issues. The patient is being seen by me at the request of Dr. Daniel Perez MD for my opinion and advice regarding symptomatic right inguinal hernia. His daughter Shay, my former office nurse also wished him to see me. He was found to have a systolic ejection murmur on his last office visit. I ordered an echocardiogram. This was obtained on October 19, 2023. This demonstrated: CONCLUSIONS: - Exam indication: Cardiac murmur - The left ventricle is normal in size. Left ventricular systolic function is mildly decreased. EF = 46 ? 5% (2D biplane) Indeterminate left ventricular diastolic dysfunction. - The right ventricle is normal in size. Right ventricular systolic function is normal. - The left atrial cavity is mildly dilated. - Tricuspid aortic valve. There is moderate aortic valve stenosis caused by calcified valve. AV area is 1.17 cm? (0.65 cm?/m?) by continuity, VTI. The peak gradient is 24 mmHg, the mean gradient is 14 mmHg and the dimensionless valve index is 0.37. - The patient has not had a prior CC echocardiographic exam for comparison. PAST MEDICAL HISTORY Diagnosis Date Congenital tracheoesophageal fistula, esophageal atresia and stenosis Diverticulosis of colon with hemorrhage Essential hypertension 07/24/2017 GERD (gastroesophageal reflux disease) 07/24/2017 Stricture and stenosis of esophagus PAST SURGICAL HISTORY Procedure Laterality Date EGD FLEXIBLE FOREIGN BODY REMOVAL 07/24/13 distal stenosis ESOPHAGOSCOPY FLEX BALLOON DILAT <30 MM DIAM 06/27/2008 Esophageal dilatation ESOPHAGOSCOPY FLEX BALLOON DILAT <30 MM DIAM 07/25/08 ESOPHAGOSCOPY FLEXIBLE REMOVAL FOREIGN BODY 05/27/08 ER [facility] PAST SURGICAL HISTORY OF Mid COLON RESECTION REPAIR INGUINAL HERNIA Left 07/25/2017 Current Outpatient Medications Medication Sig tamsulosin (FLOMAX) 0.4 mg Take 1 capsule by mouth every afternoon. cyanocobalamin, vitamin B-12, (VITAMIN B-12 ORAL) B-12 CAPS [id number]-[id number] 1.5 mg iron- 8.73 mg CpID Take by mouth. ferrous sulfate (IRON ORAL) Take by mouth. lisinopril 2.5 mg tablet Take 5 mg by mouth once daily. Pt take .5 tablets once daily OMEPRAZOLE (PRILOSEC ORAL) Take by mouth. No current facility-administered medications for this visit. ALLERGIES: Eggs [Egg] PERSONAL HISTORY: Social History Tobacco Use Smoking status: Former Packs/day: 1.00 Years: 25.00 Additional pack years: 0.00 Total pack years: 25.00 Types: Cigarettes Quit date: 06/02/1977 Years since quittin.4 Smokeless tobacco: Never Vaping Use Vaping Use: Never used Substance Use Topics Alcohol use: No Drug use: No FAMILY HISTORY: FAMILY HISTORY Problem Relation Age of Onset Cancer Mother colon Cancer Father ? REVIEW OF SYMPTOMS: The review of systems data was entered by the nurse and reviewed by me There are no exam notes on file for this visit. PHYSICAL EXAMINATION: General: The patient is 88 year old male, well nourished, well hydrated in no acute distress. The patient is oriented to time, place, and person. VITALS: Blood pressure 138/80, pulse 104, temperature 36.5 ?C (97.7 ?F), height 165.1 cm (5' 5), weight 69.5 kg (153 lb 3.2 oz), SpO2 98%. Body mass index is 25.49 kg/m?. HEENT: Normal cephalic, ataumatic, pupils are equally round, sclera are anicteric, mucous membranes are moist, oropharynx is clear. Neck has no masses, asymmetry or lymphadenopathy. Thyroid is unremarkable. Respiratory: Clear to auscultation and percussion. Normal respiratory excursion and pattern. Cardiac: Examination is regular rate, a systolic ejection murmur heard at the apex and axilla nonradiating to the carotids Abdominal exam: Soft, nontender, with no palpable masses. No hepatosplenomegaly. A moderate reducible right inguinal hernia, no left inguinal or umbilical hernias are noted Rectal exam: exam deferred Extremities: no clubbing, cyanosis or edema. No adenopathy. Other: LABORATORY VALUES: (more content not included)...[facility] 10-27-2023 History of Present illness Narrative* Jacqueline Espinal MD - 10/27/2023 5:19 PM EDT HISTORY AND PHYSICAL Ayesha Jacobsen 1935 REFERRING PHYSICIAN: Daniel Perez MD CHIEF COMPLAINT: Consult (Right hernia repair) HPI: Ayesha is a 88 year old male with a complaint of a bulge and discomfort in his right inguinal region. The patient notes discomfort in this area with lifting, coughing, and moving. The symptoms have increased, over the past 2 months. The patient notes no symptoms of bowel obstruction and denies nausea or vomiting. The patient was seen by his primary care physician who felt the patient has a hernia. Ayesha was referred for evaluation and treatment. The patient undergone a previous laparoscopic left inguinal hernia repair he noted that he and his had noted that he had a long time waking up from anesthesia. The patient denies any cardiac issues. The patient is being seen by me at the request of Dr. Daniel Perez MD for my opinion and advice regarding symptomatic right inguinal hernia. His daughter Shay, my former office nurse also wished him to see me. He was found to have a systolic ejection murmur on his last office visit. I ordered an echocardiogram. This was obtained on October 19, 2023. This demonstrated: CONCLUSIONS: - Exam indication: Cardiac murmur - The left ventricle is normal in size. Left ventricular systolic function is mildly decreased. EF = 46 5% (2D biplane) Indeterminate left ventricular diastolic dysfunction. - The right ventricle is normal in size. Right ventricular systolic function is normal. - The left atrial cavity is mildly dilated. - Tricuspid aortic valve. There is moderate aortic valve stenosis caused by calcified valve. AV area is 1.17 cm (0.65 cm /m ) by continuity, VTI. The peak gradient is 24 mmHg, the mean gradient is 14 mmHg and the dimensionless valve index is 0.37. - The patient has not had a prior CC echocardiographic exam for comparison. PAST MEDICAL HISTORY Diagnosis Date Congenital tracheoesophageal fistula, esophageal atresia and stenosis Diverticulosis of colon with hemorrhage Essential hypertension 07/24/2017 GERD (gastroesophageal reflux disease) 07/24/2017 Stricture and stenosis of esophagus PAST SURGICAL HISTORY Procedure Laterality Date EGD FLEXIBLE FOREIGN BODY REMOVAL 07/24/13 distal stenosis ESOPHAGOSCOPY FLEX BALLOON DILAT <30 MM DIAM 06/27/2008 Esophageal dilatation ESOPHAGOSCOPY FLEX BALLOON DILAT <30 MM DIAM 07/25/08 ESOPHAGOSCOPY FLEXIBLE REMOVAL FOREIGN BODY 05/27/08 ER [facility] PAST SURGICAL HISTORY OF Mid COLON RESECTION REPAIR INGUINAL HERNIA Left 07/25/2017 Current Outpatient Medications Medication Sig tamsulosin (FLOMAX) 0.4 mg Take 1 capsule by mouth every afternoon. cyanocobalamin, vitamin B-12, (VITAMIN B-12 ORAL) B-12 CAPS [id number]-[id number] 1.5 mg iron- 8.73 mg CpID Take by mouth. ferrous sulfate (IRON ORAL) Take by mouth. lisinopril 2.5 mg tablet Take 5 mg by mouth once daily. Pt take .5 tablets once daily OMEPRAZOLE (PRILOSEC ORAL) Take by mouth. No current facility-administered medications for this visit. ALLERGIES: Eggs [Egg] PERSONAL HISTORY: Social History Tobacco Use Smoking status: Former Packs/day: 1.00 Years: 25.00 Additional pack years: 0.00 Total pack years: 25.00 Types: Cigarettes Quit date: 06/02/1977 Years since quittin.4 Smokeless tobacco: Never Vaping Use Vaping Use: Never used Substance Use Topics Alcohol use: No Drug use: No FAMILY HISTORY: FAMILY HISTORY Problem Relation Age of Onset Cancer Mother colon Cancer Father ? REVIEW OF SYMPTOMS: The review of systems data was entered by the nurse and reviewed by me There are no exam notes on file for this visit. PHYSICAL EXAMINATION: General: The patient is 88 year old male, well nourished, well hydrated in no acute distress. The patient is oriented to time, place, and person. VITALS: Blood pressure 138/80, pulse 104, temperature 36.5 C (97.7 F), height 165.1 cm (5' 5), weight 69.5 kg (153 lb 3.2 oz), SpO2 98%. Body mass index is 25.49 kg/m . HEENT: Normal cephalic, ataumatic, pupils are equally round, sclera are anicteric, mucous membranesare moist, oropharynx is clear. Neck has no masses, asymmetry or lymphadenopathy. Thyroid is unremarkable. Respiratory: Clear to auscultation and percussion. Normal respiratory excursion and pattern. Cardiac: Examination is regular rate, a systolic ejection murmur heard at the apex and axilla nonradiating to the carotids Abdominal exam: Soft, nontender, with no palpable masses. No hepatosplenomegaly. A moderate reducible right inguinal hernia, no left inguinal or umbilical hernias are noted Rectal exam: exam deferred Extremities: no clubbing, cyanosis or edema. No adenopathy. Other: LABORATORY VALUES: As Noted RADIOLOGIC STUDIES: As Noted Assessment IMPRESSION: right inguinal hernia, systolic cardiac murmur-mitral regurgitation? PLAN: My plan is to perform a open right inguinal hernia repair with mesh. The planned surgical procedurewas discussed extensively with the patient. The risks, benefits, anticipated outcomes and possible complications were mentioned. Ayesha lopez that all hernia repair surgery has a chance of recurrence and/or chronic post operative pain. My staff has also explained the procedure in understandable terms and the patient was given the option to take printed material concerning the planned procedure. The patient had the opportunity to ask questions concerning the planned procedure. The patient freely consents to the planned procedure. He has Moderator stenosis with no significant left ventricular hypertrophy. I feel he is a good candidate for MAC/local anesthetic hernia repair. My findings have been communicated to Dr. Daniel Perez MD via shared medical record. This note will be forwarded to Dr. Daniel Perez MD. Diagnoses: (K40.90) Right inguinal hernia (primary encounter diagnosis) Anticipated CPT Code: open right inguinal hernia repair with mesh - 37155-448 Anticipated Anesthetic: MAC with local Patient weight: Blood pressure 138/80, pulse 104, temperature 36.5 C (97.7 F), height 165.1 cm (5' 5), weight 69.5 kg (153 lb 3.2 oz), SpO2 98%. BMI: Body mass index is 25.49 kg/m . Planned antibiotic: Ancef 2gm IVPB content manager to OR SCDs needed - Yes Return to Clinic: The patient is instructed to follow-up with me 1 week postoperatively Jacqueline Espinal MD documented in this encounterC[facility]06-04-2024 NoteHNO ID: [id number] Author: JACQUELINE ESPINAL MD Service: ? Author Type: Physician Type: Progress Notes Filed: 10/10/2023 17:54 Note Text: HISTORY AND PHYSICAL Ayesha Jacobsen 1935 REFERRING PHYSICIAN: No ref. provider found CHIEF COMPLAINT: Consult (Right hernia repair) HPI: Ayesha is a 88 year old male with a complaint of a bulge and discomfort in his right inguinal region. The patient notes discomfort in this area with lifting, coughing, and moving. The symptoms have increased, over the past 2 months. The patient notes no symptoms of bowel obstruction and denies nausea or vomiting. The patient was seen by his primary care physician who felt the patient has a hernia. Ayesha was referred for evaluation and treatment. The patient undergone a previous laparoscopic left inguinal hernia repair he noted that he and his had noted that he had a long time waking up from anesthesia. The patient denies any cardiac issues. The patient is being seen by me today at the request of Dr. Daniel Perez MD for my opinion and advice regarding symptomatic right inguinal hernia. PAST MEDICAL HISTORY Diagnosis Date Congenital tracheoesophageal fistula, esophageal atresia and stenosis Diverticulosis of colon with hemorrhage Essential hypertension 07/24/2017 GERD (gastroesophageal reflux disease) 07/24/2017 Stricture and stenosis of esophagus PAST SURGICAL HISTORY Procedure Laterality Date EGD FLEXIBLE FOREIGN BODY REMOVAL 07/24/13 distal stenosis ESOPHAGOSCOPY FLEX BALLOON DILAT <30 MM DIAM 06/27/2008 Esophageal dilatation ESOPHAGOSCOPY FLEX BALLOON DILAT <30 MM DIAM 07/25/08 ESOPHAGOSCOPY FLEXIBLE REMOVAL FOREIGN BODY 05/27/08 ER [facility] PAST SURGICAL HISTORY OF Mid COLON RESECTION REPAIR INGUINAL HERNIA Left 07/25/2017 Current Outpatient Medications Medication Sig tamsulosin (FLOMAX) 0.4 mg Take 1 capsule by mouth every afternoon. cyanocobalamin, vitamin B-12, (VITAMIN B-12 ORAL) B-12 CAPS [id number] 1.5 mg iron- 8.73 mg CpID Take by mouth. ferrous sulfate (IRON ORAL) Take by mouth. lisinopril 2.5 mg tablet Take 5 mg by mouth once daily. Pt take .5 tablets once daily OMEPRAZOLE (PRILOSEC ORAL) Take by mouth. No current facility-administered medications for this visit. ALLERGIES: Eggs [Egg] PERSONAL HISTORY: Social History Tobacco Use Smoking status: Former Packs/day: 1.00 Years: 25.00 Additional pack years: 0.00 Total pack years: 25.00 Types: Cigarettes Quit date: 06/02/1977 Years since quittin.3 Smokeless tobacco: Never Vaping Use Vaping Use: Never used Substance Use Topics Alcohol use: No Drug use: No FAMILY HISTORY: FAMILY HISTORY Problem Relation Age of Onset Cancer Mother colon Cancer Father ? REVIEW OF SYMPTOMS: The review of systems data was entered by the nurse and reviewed by me Nursing Notes: Christie Salguero RN 10/10/2023 2:04 PM Signed REVIEW OF SYSTEMS: General: The patient denies fatigue, denies weight loss, denies weight gain, denies feeling hot, and denies feelings of cold. Eyes: The patient denies glaucoma, NOTES eye injury/surgery, wears glasses or contacts. Ear/Nose/Throat: The patient NOTES allergies, denies hayfever, denies ear infections, and denies bloody noses. Cardiovascular: The patient denies chest pain, denies heart disease, NOTES high blood pressure,denies cardiac stent, denies prior heart attack, denies irregular heart beat, denies high cholesterol, denies poor circulation, denies heart failure, other cardiac issues, denies claudication, denies cold feet, denies peripheral arterial stent. Respiratory: The patient denies tuberculosis, denies pneumonia, denies frequent cough, denies pulmonary embolism, denies shortness of breath, and denies coughing up blood. Gastrointestinal: The patient denies difficulty swallowing, NOTES acid reflux, denies ulcers, denies vomiting, denies jaundice/hepatitis, denies gallbladder problems, denies black or tarry stools, denies hemorrhoids, denies bleeding from rectum, denies diverticulitis, denies constipation, denies diarrhea, denies loss of stool control, and NOTES hernias. Kidney/Bladder: The patient denies kidney stones, denies urine infections, and denies bloody urine. Skin: The patient denies a history of skin cancer, denies bleeding/changing moles, and denies a history of skin rash. Neurologic: The patient denies a history of epilepsy/convulsions, denies headaches, denies head/spinal injuries, and denies stroke/TIA. Psychiatric: The patient denies psychiatric medications, denies depression, and denies voices, denies substance abuse. Endocrine: The patient denies thyroid disorders, denies diabetes, and denies hormonal problems. Hematologic: The patient denies a history of bruising, denies bleeding, and NOTES anemia, denies blood clots. Infections: The patient NOTES a history of measles (more content not included)...[facility]06-04-2024 History of Present illness Narrative* Jacqueline Espinal MD - 10/10/2023 5:51 PM EDT HISTORY AND PHYSICAL Ayesha Jacobsen 1935 REFERRING PHYSICIAN: No ref. provider found CHIEF COMPLAINT: Consult (Right hernia repair) HPI: Ayesha is a 88 year old male with a complaint of a bulge and discomfort in his right inguinal region. The patient notes discomfort in this area with lifting, coughing, and moving. The symptoms have increased, over the past 2 months. The patient notes no symptoms of bowel obstruction and denies nausea or vomiting. The patient was seen by his primary care physician who felt the patient has a hernia. Ayesha was referred for evaluation and treatment. The patient undergone a previous laparoscopic left inguinal hernia repair he noted that he and his had noted that he had a long time waking up from anesthesia. The patient denies any cardiac issues. The patient is being seen by me today at the request of Dr. Daniel Perez MD for my opinion and advice regarding symptomatic right inguinal hernia. PAST MEDICAL HISTORY Diagnosis Date Congenital tracheoesophageal fistula, esophageal atresia and stenosis Diverticulosis of colon with hemorrhage Essential hypertension 07/24/2017 GERD (gastroesophageal reflux disease) 07/24/2017 Stricture and stenosis of esophagus PAST SURGICAL HISTORY Procedure Laterality Date EGD FLEXIBLE FOREIGN BODY REMOVAL 07/24/13 distal stenosis ESOPHAGOSCOPY FLEX BALLOON DILAT <30 MM DIAM 06/27/2008 Esophageal dilatation ESOPHAGOSCOPY FLEX BALLOON DILAT <30 MM DIAM 07/25/08 ESOPHAGOSCOPY FLEXIBLE REMOVAL FOREIGN BODY 05/27/08 ER [facility] PAST SURGICAL HISTORY OF Mid COLON RESECTION REPAIR INGUINAL HERNIA Left 07/25/2017 Current Outpatient Medications Medication Sig tamsulosin (FLOMAX) 0.4 mg Take 1 capsule by mouth every afternoon. cyanocobalamin, vitamin B-12, (VITAMIN B-12 ORAL) B-12 CAPS coey-[id number] 1.5 mg iron- 8.73 mg CpID Take by mouth. ferrous sulfate (IRON ORAL) Take by mouth. lisinopril 2.5 mg tablet Take 5 mg by mouth once daily. Pt take .5 tablets once daily OMEPRAZOLE (PRILOSEC ORAL) Take by mouth. No current facility-administered medications for this visit. ALLERGIES: Eggs [Egg] PERSONAL HISTORY: Social History Tobacco Use Smoking status: Former Packs/day: 1.00 Years: 25.00 Additional pack years: 0.00 Total pack years: 25.00 Types: Cigarettes Quit date: 06/02/1977 Years since quittin.3 Smokeless tobacco: Never Vaping Use Vaping Use: Never used Substance Use Topics Alcohol use: No Drug use: No FAMILY HISTORY: FAMILY HISTORY Problem Relation Age of Onset Cancer Mother colon Cancer Father ? REVIEW OF SYMPTOMS: The review of systems data was entered by the nurse and reviewed by nd Nursing Notes: Christie Salguero RN 10/10/2023 2:04 PM Signed REVIEW OF SYSTEMS: General: The patient denies fatigue, denies weight loss, denies weight gain, denies feeling hot, and denies feelings of cold. Eyes: The patient denies glaucoma, NOTES eye injury/surgery, wears glasses or contacts. Ear/Nose/Throat: The patient NOTES allergies, denies hayfever, denies ear infections, and denies bloody noses. Cardiovascular: The patient denies chest pain, denies heart disease, NOTES high blood pressure,denies cardiac stent, denies prior heart attack, denies irregular heart beat, denies high cholesterol, denies poor circulation, denies heart failure, other cardiac issues, denies claudication, denies coldfeet, denies peripheral arterial stent. Respiratory: The patient denies tuberculosis, denies pneumonia, denies frequent cough, denies pulmonary embolism, denies shortness of breath, and denies coughing up blood. Gastrointestinal: The patient denies difficulty swallowing, NOTES acid reflux, denies ulcers, denies vomiting, denies jaundice/hepatitis, denies gallbladder problems, denies black or tarry stools, denies hemorrhoids, denies bleeding from rectum, denies diverticulitis, denies constipation, denies diarrhea, denies loss of stool control, and NOTES hernias. Kidney/Bladder: The patient denies kidney stones, denies urine infections, and denies bloody urine. Skin: The patient denies a history of skin cancer, denies bleeding/changing moles, and denies a history of skin rash. Neurologic: The patient denies a history of epilepsy/convulsions, denies headaches, denies head/spinal injuries, and denies stroke/TIA. Psychiatric: The patient denies psychiatric medications, denies depression, and denies voices, denies substance abuse. Endocrine: The patient denies thyroid disorders, denies diabetes, and denies hormonal problems. Hematologic: The patient denies a history of bruising, denies bleeding, and NOTES anemia, denies blood clots. Infections: The patient NOTES a history of measles and mumps, denies rheumatic fever, and denies sexually transmitted diseases. Musculoskeletal: The patient denies back pain/injury, denies back problems, denies sciatica, deniesknee/foot trouble, denies arthritis, or denies gout. When was patient's last Mammogram screening? N/A Last colonoscopy? 20 years ago Christie Salguero RN PHYSICAL EXAMINATION: General: The patient is 88 year old male, well nourished, well hydrated in no acute distress. The patient is oriented to time, place, and person. VITALS: Blood pressure 134/84, pulse 120, temperature 36.9 C (98.5 F), weight 69.7 kg (153 lb 9.6 oz), SpO2 94%. Body mass index is 24.79 kg/m . HEENT: Normal cephalic, ataumatic, pupils are equally round, sclera are anicteric, mucous membranesare moist, oropharynx is clear. Neck has no masses, asymmetry or lymphadenopathy. Thyroid is unremarkable. Respiratory: Clear to auscultation and percussion. Normal respiratory excursion and pattern. Cardiac: Examination is regular rate, a systolic ejection murmur heard at the apex and axilla nonradiating to the carotids Abdominal exam: Soft, nontender, with no palpable masses. No hepatosplenomegaly. A moderate reducible right inguinal hernia, no left inguinal or umbilical hernias are noted Rectal exam: exam deferred Extremities: no clubbing, cyanosis or edema. No adenopathy. Other: LABORATORY VALUES: As Noted RADIOLOGIC STUDIES: As Noted Assessment IMPRESSION: right inguinal hernia, systolic cardiac murmur-mitral regurgitation? PLAN: I have ordered an echocardiogram to assess his cardiac murmur. I will have the patient follow-up with me after the cardiac murmur has been evaluated. If this is in fact a nonsignificant mitral regurgitant murmur that I would be comfortable performing surgery. My plan is to perform a open right inguinal hernia repair with mesh. The planned surgical procedurewas discussed extensively with the patient. The risks, benefits, anticipated outcomes and possible complications were mentioned. Ayesha alcalaands that all hernia repair surgery has a chance of recurrence and/or chronic post operative pain. My staff has also explained the procedure in understandable terms and the patient was given the option to take printed material concerning the planned procedure. The patient had the opportunity to ask questions concerning the planned procedure. The patient freely consents to the planned procedure. My findings have been communicated to Dr. Daniel Perez MD via shared medical record. This note will be forwarded to Dr. Daniel Perez MD. Diagnoses: (R01.1) Apical systolic murmur (primary encounter diagnosis) (K40.90) Right inguinal hernia Anticipated CPT Code: open right inguinal hernia repair with mesh - 82321-714 Anticipated Anesthetic: MAC with local Patient weight: Blood pressure 134/84, pulse 120, temperature 36.9 C (98.5 F), weight 69.7 kg (153 lb 9.6 oz), SpO2 94%. BMI: Body mass index is 24.79 kg/m . Planned antibiotic: Ancef 2gm IVPB content manager to OR SCDs needed - Yes Return to Clinic: The patient is instructed to follow-up with me after echocardiogram is completed to schedule surgery. Jacqueline Espinal [facility]* Christie Salguero RN - 10/10/2023 2:02 PM EDT REVIEW OF SYSTEMS: General: The patient denies fatigue, denies weight loss, denies weight gain, denies feeling hot, and denies feelings of cold. Eyes: The patient denies glaucoma, NOTES eye injury/surgery, wears glasses or contacts. Ear/Nose/Throat: The patient NOTES allergies, denies hayfever, denies ear infections, and denies bloody noses. Cardiovascular: The patient denies chest pain, denies heart disease, NOTES high blood pressure,denies cardiac stent, denies prior heart attack, denies irregular heart beat, denies high cholesterol, denies poor circulation, denies heart failure, other cardiac issues, denies claudication, denies coldfeet, denies peripheral arterial stent. Respiratory: The patient denies tuberculosis, denies pneumonia, denies frequent cough, denies pulmonary embolism, denies shortness of breath, and denies coughing up blood. Gastrointestinal: The patient denies difficulty swallowing, NOTES acid reflux, denies ulcers, denies vomiting, denies jaundice/hepatitis, denies gallbladder problems, denies black or tarry stools, denies hemorrhoids, denies bleeding from rectum, denies diverticulitis, denies constipation, denies diarrhea, denies loss of stool control, and NOTES hernias. Kidney/Bladder: The patient denies kidney stones, denies urine infections, and denies bloody urine. Skin: The patient denies a history of skin cancer, denies bleeding/changing moles, and denies a history of skin rash. Neurologic: The patient denies a history of epilepsy/convulsions, denies headaches, denies head/spinal injuries, and denies stroke/TIA. Psychiatric: The patient denies psychiatric medications, denies depression, and denies voices, denies substance abuse. Endocrine: The patient denies thyroid disorders, denies diabetes, and denies hormonal problems. Hematologic: The patient denies a history of bruising, denies bleeding, and NOTES anemia, denies blood clots. Infections: The patient NOTES a history of measles and mumps, denies rheumatic fever, and denies sexually transmitted diseases. Musculoskeletal: The patient denies back pain/injury, denies back problems, denies sciatica, deniesknee/foot trouble, denies arthritis, or denies gout. When was patient's last Mammogram screening? N/A Last colonoscopy? 20 years ago Christie Salguero RN [facility]06-04-[facility] Nurse Note* Christie Salguero RN - 10/10/2023 2:02 PM EDT REVIEW OF SYSTEMS: General: The patient denies fatigue, denies weight loss, denies weight gain, denies feeling hot, and denies feelings of cold. Eyes: The patient denies glaucoma, NOTES eye injury/surgery, wears glasses or contacts. Ear/Nose/Throat: The patient NOTES allergies, denies hayfever, denies ear infections, and denies bloody noses. Cardiovascular: The patient denies chest pain, denies heart disease, NOTES high blood pressure,denies cardiac stent, denies prior heart attack, denies irregular heart beat, denies high cholesterol, denies poor circulation, denies heart failure, other cardiac issues, denies claudication, denies coldfeet, denies peripheral arterial stent. Respiratory: The patient denies tuberculosis, denies pneumonia, denies frequent cough, denies pulmonary embolism, denies shortness of breath, and denies coughing up blood. Gastrointestinal: The patient denies difficulty swallowing, NOTES acid reflux, denies ulcers, denies vomiting, denies jaundice/hepatitis, denies gallbladder problems, denies black or tarry stools, denies hemorrhoids, denies bleeding from rectum, denies diverticulitis, denies constipation, denies diarrhea, denies loss of stool control, and NOTES hernias. Kidney/Bladder: The patient denies kidney stones, denies urine infections, and denies bloody urine. Skin: The patient denies a history of skin cancer, denies bleeding/changing moles, and denies a history of skin rash. Neurologic: The patient denies a history of epilepsy/convulsions, denies headaches, denies head/spinal injuries, and denies stroke/TIA. Psychiatric: The patient denies psychiatric medications, denies depression, and denies voices, denies substance abuse. Endocrine: The patient denies thyroid disorders, denies diabetes, and denies hormonal problems. Hematologic: The patient denies a history of bruising, denies bleeding, and NOTES anemia, denies blood clots. Infections: The patient NOTES a history of measles and mumps, denies rheumatic fever, and denies sexually transmitted diseases. Musculoskeletal: The patient denies back pain/injury, denies back problems, denies sciatica, deniesknee/foot trouble, denies arthritis, or denies gout. When was patient's last Mammogram screening? N/A Last colonoscopy? 20 years ago Christie Salguero RN [facility]* Diagnosis Apical systolic murmur- Primary Right inguinal hernia Inguinal hernia without mention of obstruction or gangrene, unilateral or unspecified, (not specified as recurrent) documented in this encounter [facility] note* Diagnosis Right inguinal hernia- Primary Inguinal hernia without mention of obstruction or gangrene, unilateral or unspecified, (not specified as recurrent) documented in this encounter [facility] note* Diagnosis Pre-operative examination- Primary Preoperative examination, unspecified Essential hypertension Unspecified essential hypertension VHD (valvular heart disease) Endocarditis, valve unspecified, unspecified cause Gastroesophageal reflux disease, unspecified whether esophagitis present Benign prostatic hyperplasia, unspecified whether lower urinary tract symptoms present Former smoker Personal history of tobacco use, presenting hazards to health Esophageal stricture Stricture and stenosis of esophagus Uncomplicated asthma, unspecified asthma severity, unspecified whether persistent * Assessment & Plan Note - Mary Lynn APRN.CNP - 11/10/2023 9:40 AM EDT Associated Problem(s): Asthma Assessment: pt states since childhood, does not use any inhalers, no PFT's on file, pt presented Monday with surgery on Monday * Assessment & Plan Note - Mary Lynn APRN.CNP - 11/10/2023 9:39 AM EDT Associated Problem(s): Esophageal stricture Assessment: hx dilation * Assessment & Plan Note - Mary Lynn APRN.CNP - 11/10/2023 9:38 AM EDT Associated Problem(s): Former smoker Assessment: 1ppd/40 years, denies asthma or COPD, pulse of 95% on RA, lungs CTA * Assessment & Plan Note - Mary Lynn APRN.CNP - 11/10/2023 9:25 AM EDT Associated Problem(s): BPH (benign prostatic hyperplasia) Assessment: controlled on rx * Assessment & Plan Note - Mary Lynn APRN.CNP - 11/10/2023 9:25 AM EDT Associated Problem(s): GERD (gastroesophageal reflux disease) Assessment: controlled on rx * Assessment & Plan Note - Mary Lynn APRN.CNP - 11/10/2023 9:25 AM EDT Associated Problem(s): VHD (valvular heart disease) Assessment: new finding on echo ordered by surgeon, AVS moderate, AV 1.17cm2, trace-1+ MVR, trace-1+ TVR, 1+-2+ PVR, email to anesthesia. Pt denies sob, BOYCE, orthopnea, CP, palpitations Recent Results (from the past 91467 hour(s)) ECHO Collection Time: 10/19/23 1:39 PM Impression CONCLUSIONS: - Exam indication: Cardiac murmur - The left ventricle is normal in size. Left ventricular systolic function is mildly decreased. EF = 46 5% (2D biplane) Indeterminate left ventricular diastolic dysfunction. - The right ventricle is normal in size. Right ventricular systolic function is normal. - The left atrial cavity is mildly dilated. - Tricuspid aortic valve. There is moderate aortic valve stenosis caused by calcified valve. AV area is 1.17 cm (0.65 cm /m ) by continuity, VTI. The peak gradient is 24 mmHg, the mean gradient is 14 mmHg and the dimensionless valve index is 0.37. - The patient has not had a prior CC echocardiographic exam for comparison. * * * Final * * * * Assessment & Plan Note - Mary Lynn APRN.CNP - 11/10/2023 9:21 AM EDT Associated Problem(s): Essential hypertension Assessment: controlled on rx Last 14 BP Last 14 Encounter BP Readings: Date: BP: 11/10/2023 122/76 10/27/2023 138/80 10/10/2023 134/84 07/24/2017 159/83 07/19/2017 157/76 07/19/2017 163/86 12/14/2015 120/72 documented in this encounter [facility] note* Diagnosis Pre-operative examination- Primary Preoperative examination, unspecified documented in this encounter [facility] note* Diagnosis Pre-operative examination- Primary Preoperative examination, unspecified Essential hypertension Unspecified essential hypertension VHD (valvular heart disease) Endocarditis, valve unspecified, unspecified cause Gastroesophageal reflux disease, unspecified whether esophagitis present Benign prostatic hyperplasia, unspecified whether lower urinary tract symptoms present Former smoker Personal history of tobacco use, presenting hazards to health Esophageal stricture Stricture and stenosis of esophagus Uncomplicated asthma, unspecified asthma severity, unspecified whether persistent Primary hypertension- Primary Unspecified essential hypertension Nonrheumatic aortic valve stenosis Aortic valve disorders Preoperative clearance Preoperative examination, unspecified documented in this encounter [facility] note* Diagnosis Pre-operative examination- Primary Preoperative examination, unspecified Essential hypertension Unspecified essential hypertension VHD (valvular heart disease) Endocarditis, valve unspecified, unspecified cause Gastroesophageal reflux disease, unspecified whether esophagitis present Benign prostatic hyperplasia, unspecified whether lower urinary tract symptoms present Former smoker Personal history of tobacco use, presenting hazards to health Esophageal stricture Stricture and stenosis of esophagus Uncomplicated asthma, unspecified asthma severity, unspecified whether persistent Dizziness- Primary Dizziness and giddiness Unsteady gait Abnormality of gait Right inguinal hernia Inguinal hernia without mention of obstruction or gangrene, unilateral or unspecified, (not specified as recurrent) documented in this encounter [facility] note* Diagnosis Pre-operative examination- Primary Preoperative examination, unspecified Essential hypertension Unspecified essential hypertension VHD (valvular heart disease) Endocarditis, valve unspecified, unspecified cause Gastroesophageal reflux disease, unspecified whether esophagitis present Benign prostatic hyperplasia, unspecified whether lower urinary tract symptoms present Former smoker Personal history of tobacco use, presenting hazards to health Esophageal stricture Stricture and stenosis of esophagus Uncomplicated asthma, unspecified asthma severity, unspecified whether persistent Acute delirium- Primary Other alteration of consciousness Right inguinal hernia Inguinal hernia without mention of obstruction or gangrene, unilateral or unspecified, (not specified as recurrent) [facility] [place] [facility]* Diagnosis Pre-operative examination- Primary Preoperative examination, unspecified Essential hypertension Unspecified essential hypertension VHD (valvular heart disease) Endocarditis, valve unspecified, unspecified cause Gastroesophageal reflux disease, unspecified whether esophagitis present Benign prostatic hyperplasia, unspecified whether lower urinary tract symptoms present Former smoker Personal history of tobacco use, presenting hazards to health Esophageal stricture Stricture and stenosis of esophagus Uncomplicated asthma, unspecified asthma severity, unspecified whether persistent (HCC) Hallucination- Primary Hallucinations Medicare annual wellness visit, subsequent Routine general medical examination at a health care facility 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 Screening for depression Encounter for screening examination for other mental health and behavioral disorders Bradykinesia Abnormal involuntary movements Memory loss [facility]* Diagnosis Pre-operative examination- Primary Preoperative examination, unspecified Essential hypertension Unspecified essential hypertension VHD (valvular heart disease) Endocarditis, valve unspecified, unspecified cause Gastroesophageal reflux disease, unspecified whether esophagitis present Benign prostatic hyperplasia, unspecified whether lower urinary tract symptoms present Former smoker Personal history of tobacco use, presenting hazards to health Esophageal stricture Stricture and stenosis of esophagus Uncomplicated asthma, unspecified asthma severity, unspecified whether persistent (HCC) Benign prostatic hyperplasia with post-void dribbling- Primary Decreased urine stream Slowing of urinary stream Urinary incontinence, unspecified type Prostate cancer screening Special screening for malignant neoplasm of prostate Urge incontinence Dribbling Post-void dribbling Stress incontinence 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 documented in this encounter [facility] for referral (narrative)* Outpatient Procedure (Routine) - Authorized Specialty Diagnoses / Procedures Referred By Shivani cobian Referred To [facility] Diagnoses Apical systolic murmur Procedures ECHO ECHO TTHRC R-T 2D W/WOM-MODE COMPL SPEC&COLR D Jacqueline Espinal MD [facility] [address] [address] [facility] [place] [address] [place] [id number] Referral ID Status Reason Start Date Expiration Date Visits Requested Visits Authorized [id number] Authorized Auto-Generat ed Referral 10/10/2023 10/09/2024 1 1 [facility] for referral (narrative)* Outpatient Procedure (Routine) - Closed Specialty Diagnoses / Procedures Referred By Contac t Referred To Contact [facility] Diagnoses Pre-operative examination Procedures ECG COMPLETE ECG ROUTINE ECG W/LEAST 12 LDS W/I&R Mary Lynn APRN.INSTRUCTIONAL SYSTEMS SPECIALIST [address] [place] [address] [facility] [place] [address] [place] [address] Referral ID Status Reason Start Date Expiration Date V isits Requested Visits Authorized [id number] Closed Auto-Generate d Referral 11/10/2023 11/09/2024 1 1 [facility] for referral (narrative)* Outpatient Procedure (Routine) - Authorized Specialty Diagnoses / Procedures Referred By Contac t Referred To Contact [facility] Diagnoses Primary hypertension Nonrheumatic aortic valve stenosis Aortic valve disorder Procedures ECHO ECHO TTHRC R-T 2D W/WOM-MODE COMPL SPEC&COLR D Fabricio Hall MD [address], [address] [place] [address] [facility] [address] [address] Referral ID Status Reason Start Date Expiration Date Visits Requested Visits Authorized [id number] Authorized Auto-Generat ed Referral 01/29/2024 01/21/2025 1 1 [facility] for referral (narrative)No reason for referral information availableW[facility] Phone: Reason for visit Narrative* Outpatient Procedure (Routine) - Closed Specialty Diagnoses / Procedures Referred By Contac t Referred To Contact [facility] Diagnoses Pre-operative examination Procedures ECG COMPLETE ECG ROUTINE ECG W/LEAST 12 LDS W/I&R Mary Lynn APRN.INSTRUCTIONAL SYSTEMS SPECIALIST [address] [place] [address] [facility] [address] [place] [address] Referral ID Status Reason Start Date Expiration Date V isits Requested Visits Authorized [id number] Closed Auto-Generate d Referral 11/10/2023 11/09/2024 1 1 [facility] Summary Purpose Family History No Family History Records Found Relationship Condition Age at Onset Recorded Date/T irene mother Malignant neoplasm of colon Unknown father Malignant neoplasm Unknown Advance Directives No Advanced Directives Records Found Date Activated Date Inactivated Comments 02/26/2024 8:43 PM 03/05/2024 8:18 PM Question Answer Comments DNR Order Discussed With: Surrogate Decision Ramon er Surrogate Decision Maker Name: and daughter Date Activated Date Inactivated Comments 02/22/2024 9:52 PM 02/24/2024 7:11 PM Question Answer Comments Full Code Order Discussed With: Patient Date Activated Date Inactivated Comments 02/26/2024 8:43 PM Date Activated Date Inactivated Comments 02/26/2024 8:43 PM 03/05/2024 8:18 PM Question Answer Comments DNR Order Discussed With: Surrogate Decision Ramon er Surrogate Decision Maker Name: and daughter Date Activated Date Inactivated Comments 02/22/2024 9:52 PM 02/24/2024 7:11 PM Question Answer Comments Full Code Order Discussed With: Patient Advance Directive Response Recorded Date/ Time Do you have a Healthcare Power of Library Associate? Yes September 24, 2024 6:40pm Advance Directives Yes January 02, 2016 8:35am Advance Directive Response Recorded Date/ Time Do you have a Healthcare Pow er of Library Associate? Yes September 25, 2024 12:17am Name of Medical Power of Library Associate Shay Pop, daughter September 25, 2024 12:17am Do you have a Healthcare Pow er of Library Associate? Yes October 01, 2024 1:37pm Name of Medical Power of Library Associate Marilyn Jacobsen, ; Jorge L Martinss, son October 01, 2024 1:37pm Advance Directives Yes January 02, 2016 8:35am Reason for Referral Specialty Diagnoses / Procedures Referred By Shivani t Referred To Contact Cardiology Diagnoses Pre-operative examination Procedures CONSULT TO CARDIOLOGY OFFICE/OUTPATIENT [facility] 60 MINUTES Mary Lynn, PST SPECIALIST.INSTRUCTIONAL SYSTEMS SPECIALIST [address] [place] [address] Referral ID Status Reason Start Date Expiration Date Visits Requested Visits Authorized [id number] Authorized PCP Requested Referral 11/10/2023 11/09/2024 1 1 Specialty Diagnoses / Procedures Referred By Shivani cobian Referred To Contact Neurology Diagnoses Acute delirium Procedures CONSULT TO NEUROLOGY OFFICE/OUTPATIENT [facility] 60 MINUTES Mary Lynn, PST SPECIALIST.INSTRUCTIONAL SYSTEMS SPECIALIST [address] [place] [address] Referral ID Status Reason Start Date Expiration Date Visits Requested Visits Authorized [id number] Authorized PCP Requested Referral 03/27/2025 1 1 Chief Complaint and Reason for Visit Chief Complaint Admit Date FALL WITH INABILITY TO AMBULATE 2/2 LEFT September 24, 2024 11:44pm Reason for Visit Admit Date Contusion of left hip September 24, 2024 11: 44pm Debility September 24, 2024 11:44 pm Fall September 24, 2024 11:44 pm Inability to ambulate due to hip September 11:44pm Chief Complaint Admit Date FALL WITH INABILITY TO AMBULATE 2/2 LEFT September 24, 2024 11:44pm FALL WITH INABILITY TO AMBULATE 2/2 LEFT September 25, 2024 8:15am FALL WITH INABILITY TO AMBULATE 2/2 LEFT September 26, 2024 5:10pm FALL WITH INABILITY TO AMBULATE 2/2 LEFT September 27, 2024 3:42pm CVA September 27, 2024 5:26p m Cerebrovascular accident September 28, 2024 8:42am Cerebrovascular accident September 30, 2024 3:21pm CP October 01, 2024 11:27 am Cerebrovascular accident October 01, 2024 12:10pm Cerebrovascular accident October 03, 2024 11:51am Cerebrovascular accident October 07, 2024 11:54am Cerebrovascular accident October 08, 2024 10:54am Cerebrovascular accident October 10, 2024 10:20am Cerebrovascular accident October 14, 2024 9:07am EKG October 14, 2024 11:43 am Cerebrovascular accident October 15, 2024 3:13pm Cerebrovascular accident October 16, 2024 10:57am Cerebrovascular accident October 21, 2024 9:04am Cerebrovascular accident October 22, 2024 4:06pm Reason for Visit Admit Date Contusion of left hip September 24, 2024 11: 44pm Debility September 24, 2024 11:44 pm Inferior pubic ramus fracture September 24, 2024 11:44pm Vitamin D deficiency September 24, 2024 11:4 4pm Elevated serum creatinine September 24, 2024 11:44pm Leukocytosis September 24, 2024 11:44 pm Acute ischemic right MCA stroke September 11:44pm Fall September 24, 2024 11:44 pm Inability to ambulate due to hip September 11:44pm BPH (benign prostatic hyperplasia) September 062024 5:26pm Contusion of left hip September 27, 2024 5:2 6pm Debility September 27, 2024 5:26p m Dyslipidemia September 27, 2024 5:26p m Esophageal stenosis September 27, 2024 5:26p m Facial droop September 27, 2024 5:26p m Heme + stool September 27, 2024 5:26p m Hypophosphatemia September 27, 2024 5:26p m Inferior pubic ramus fracture September 27, 2024 5:26pm Left leg weakness September 27, 2024 5:26p m Microscopic hematuria September 27, 2024 5:2 6pm Pain aggravated by physical activity September 27, 2024 5:26pm Paresthesias September 27, 2024 5:26p m Presbycusis September 27, 2024 5:26p m Productive cough September 27, 2024 5:26p m Seizure disorder September 27, 2024 5:26p m Aspiration into trachea September 27, 2024 5 :26pm Cognitive dysfunction September 27, 2024 5:2 6pm Dementia with behavioral disturbance September 27, 2024 5:26pm Eosinophilia, unspecified September 27, 2024 5:26pm Essential (primary) hypertension September 5:26pm GERD (gastroesophageal reflux disease) M ay 2024 5:26pm Hypoxemia associated with sleep September 5:26pm Mild aortic stenosis September 27, 2024 5:26 pm Oropharyngeal dysphagia September 27, 2024 5 :26pm Urinary retention September 27, 2024 5:26p m Depression September 27, 2024 5:26p m Acute bronchitis September 27, 2024 5:26p m Conjunctivitis September 27, 2024 5:26p m Fever September 27, 2024 5:26p m Leukocytosis September 27, 2024 5:26p m Acute ischemic right MCA stroke September 5:26pm Fall September 27, 2024 5:26p m History of esophageal dilatation September 5:26pm Additional Source Comments (unrecognized sect ion and content) No Status Records FoundNo Status Records FoundNo Status Records FoundNo Status Records FoundNo Status Records FoundNo Status Records Found INFORMATION SOURCE (unrecogn ized section and content) DATE CREATED AUTHOR 10/01/2023 [facility] DATE CREATED AUTHOR AUTHOR'S ORGANIZ ATION 11/28/2023 [facility] DATE CREATED AUTHOR AUTHOR'S ORGANIZ ATION 02/27/2024 [facility] DATE CREATED AUTHOR AUTHOR'S ORGANIZ ATION 03/06/2024 [facility] DATE CREATED AUTHOR AUTHOR'S ORGANIZ ATION 09/20/2024 [facility] DATE CREATED AUTHOR AUTHOR'S ORGANIZ ATION 10/31/2024 [facility] Source Comments (unrecognize d section and content) In the event this informatio n is protected by the Federal Confidentiality of Alcohol and Drug Abuse Patient Records regulations: The Federal rules restrict any use of the information to criminally investigate or prosecute any alcohol or drug abuse patient.[facility] FoundationIn the event this information is protected by the Federal Confidentiality of Alcohol and Drug Abuse Patient Records regulations: The Federal rules restrict any use of the information to criminally investigate or prosecute any alcohol or drug abuse patient.[facility] FoundationIn the event this information is protected by the Federal Confidentiality of Alcohol and Drug Abuse Patient Records regulations: The Federal rules restrict any use of the information to criminally investigate or prosecute any alcohol or drug abuse patient.[facility] FoundationIn the event this information is protected by the Federal Confidentiality of Alcohol and Drug Abuse Patient Records regulations: The Federal rules restrict any use of the information to criminally investigate or prosecute any alcohol or drug abuse patient.[facility] FoundationIn the event this information is protected by the Federal Confidentiality of Alcohol and Drug Abuse Patient Records regulations: The Federal rules restrict any use of the information to criminally investigate or prosecute any alcohol or drug abuse patient.[facility] FoundationIn the event this information is protected by the Federal Confidentiality of Alcohol and Drug Abuse Patient Records regulations: The Federal rules restrict any use of the information to criminally investigate or prosecute any alcohol or drug abuse patient.[facility] FoundationIn the event this information is protected by the Federal Confidentiality of Alcohol and Drug Abuse Patient Records regulations: The Federal rules restrict any use of the information to criminally investigate or prosecute any alcohol or drug abuse patient.[facility] FoundationIn the event this information is protected by the Federal Confidentiality of Alcohol and Drug Abuse Patient Records regulations: The Federal rules restrict any use of the information to criminally investigate or prosecute any alcohol or drug abuse patient.[facility] FoundationIn the event this information is protected by the Federal Confidentiality of Alcohol and Drug Abuse Patient Records regulations: The Federal rules restrict any use of the information to criminally investigate or prosecute any alcohol or drug abuse patient.[facility] FoundationIn the event this information is protected by the Federal Confidentiality of Alcohol and Drug Abuse Patient Records regulations: The Federal rules restrict any use of the information to criminally investigate or prosecute any alcohol or drug abuse patient.[facility] FoundationIn the event this information is protected by the Federal Confidentiality of Alcohol and Drug Abuse Patient Records regulations: The Federal rules restrict any use of the information to criminally investigate or prosecute any alcohol or drug abuse patient.[facility] FoundationIn the event this information is protected by the Federal Confidentiality of Alcohol and Drug Abuse Patient Records regulations: The Federal rules restrict any use of the information to criminally investigate or prosecute any alcohol or drug abuse patient.[facility] FoundationIn the event this information is protected by the Federal Confidentiality of Alcohol and Drug Abuse Patient Records regulations: The Federal rules restrict any use of the information to criminally investigate or prosecute any alcohol or drug abuse patient.[facility] FoundationIn the event this information is protected by the Federal Confidentiality of Alcohol and Drug Abuse Patient Records regulations: The Federal rules restrict any use of the information to criminally investigate or prosecute any alcohol or drug abuse patient.[facility] FoundationIn the event this information is protected by the Federal Confidentiality of Alcohol and Drug Abuse Patient Records regulations: The Federal rules restrict any use of the information to criminally investigate or prosecute any alcohol or drug abuse patient.[facility] FoundationIn the event this information is protected by the Federal Confidentiality of Alcohol and Drug Abuse Patient Records regulations: The Federal rules restrict any use of the information to criminally investigate or prosecute any alcohol or drug abuse patient.[facility] FoundationIn the event this information is protected by the Federal Confidentiality of Alcohol and Drug Abuse Patient Records regulations: The Federal rules restrict any use of the information to criminally investigate or prosecute any alcohol or drug abuse patient.[facility] Reason for Visit (unrecogniz ed section and content) Reason Comments Consult Right hernia repair Reason Comments Follow Up Review echocardiogra m to possibly scheduled hernia surgery. Reason Comments Cardiac Clearance Reason Comments Consult Reason Comments Cancel Procedure Reason Comments Appointment Reason Comments cardiology and Neurology clearance Reason Comments Establish Care Reason Onset Date Comments Refill Request 09/06/2024 Reason Comments Incontinence Care Teams (unrecognized sec tion and content) Team Status: Active Member Role Status Dates Dr. Nimisha Oseguera MD Primary Care Provider Active Team Status: Inactive Member Role Status Dates Dr. Gerardo Duque DO Emergency Provider Active Start : September 24, 2024 End: September 27, 2024 Dr. Nimisha Oseguera MD Primary Care Provider Active Start: September 24, 2024 End: September 27, 2024 Dr. Gerardo Vizcaino , Admit Provider Active Start: September 24, 2024 End: September 27, 2024 Dr. Gerardo Vizcaino DO Other Provider Active Start: September 24, 2024 End: September 27, 2024 Dr. Juju Vuong DO Attending Provider Active S tart: September 24, 2024 End: September 27, 2024 Team Status: Active Member Role Status Dates Dr. Gerardo Duque DO Emergency Provider Active Start : September 25, 2024 Dr. Nimisha Oseguera MD Primary Care Provider Active Start: September 25, 2024 Dr. Gerardo Vizcaino DO Admit Provider Active Start: September 25, 2024 Dr. Gerardo Vizcaino DO Other Provider Active Start: September 25, 2024 Dr. Juju Vuong DO Attending Provider Active S tart: September 25, 2024 Dr. Juju Vuong DO Other Provider Active Start : September 25, 2024 Team Status: Active Member Role Status Dates Dr. Nimisha Oseguera MD Primary Care Provider Active Start: September 26, 2024 Dr. Kemal Chen MD Attending Provider Active S tart: September 26, 2024 Dr. Juju Vuong DO Referring Provider Active S tart: September 26, 2024 Team Status: Active Member Role Status Dates Dr. Nimisha Oseguera MD Primary Care Provider Active Start: September 26, 2024 Dr. Kip Grant MD Attending Provider Activ e Start: September 26, 2024 Team Status: Active Member Role Status Dates Dr. Gerardo Duque DO Emergency Provider Active Start : September 26, 2024 Dr. Nimisha Oseguera MD Primary Care Provider Active Start: September 26, 2024 Dr. Gerardo Vizcaino , DO Admit Provider Active Start: September 26, 2024 Dr. Gerardo Vizcaino , Other Provider Active Start: September 26, 2024 Dr. Juju Vuong , Attending Provider Active S tart: September 26, 2024 Dr. Juju Vuong , Other Provider Active Start : September 26, 2024 Willard Villalba MD Other Provider Active Start: Nh 2024 Dr. Bubba Manriquez MD Other Provider Active Start: September 26, 2024 Radha Lewis MD Other Provider Active Start : September 26, 2024 Dr. Stephanie Resendiz , Other Provider Active St art: September 26, 2024 Dr. Inocencia Gaines MD Other Provider Active Start: September 26, 2024 Dr. Yg Savage MD Other Provider Active Sta rt: September 26, 2024 Dr. Lyndsay Patterson MD Other Provider Active Start : September 26, 2024 Dr. Mickey Arredondo MD Other Provider Active Start: September 26, 2024 Dr. Zan Edmond MD Other Provider Active Start : September 26, 2024 Dr. Atul Guerrero MD Other Provider Active Sta rt: September 26, 2024 Trang Armstrong MD Other Provider Active Start : September 26, 2024 Dr. Garrett Machado MD Other Provider Active St art: September 26, 2024 Dr. Margareth Harper MD Other Provider Active Start : September 26, 2024 Dr. Rufina Rojas MD Other Provider Active Sta rt: September 26, 2024 Dr. William Woods MD Other Provider Active Start: September 26, 2024 Dr. Louis Arriaza MD Other Provider Active St art: September 26, 2024 Dr. Reid Rizo MD Other Provider Active Star t: September 26, 2024 Dr. Armani Liz MD Other Provider Active St art: September 26, 2024 Dr. Brenda Vuong MD Other Provider Active Start: September 26, 2024 Crow Breen MD Other Provider Active Start: September 26, 2024 Team Status: Active Member Role Status Dates Dr. Gerardo Duque DO Emergency Provider Active Start : September 27, 2024 Dr. Nimisha Oseguera MD Primary Care Provider Active Start: September 27, 2024 Dr. Gerardo Vizcaino , Admit Provider Active Start: September 27, 2024 Dr. Gerardo Vizcaino , Other Provider Active Start: September 27, 2024 Dr. Juju Vuong , Attending Provider Active S tart: September 27, 2024 Dr. Juju Vuong , Other Provider Active Start : September 27, 2024 Team Status: Inactive Member Role Status Dates Dr. Nimisha Oseguera MD Primary Care Provider Active Start: September 27, 2024 End: October 23, 2024 Dr. Shay Gaxiola DO Admit Provider Active Start: September 27, 2024 End: October 23, 2024 Dr. Shay Gaxiola DO Attending Provider Act kev Start: September 27, 2024 End: October 23, 2024 Dr. Shay Gaxiola DO Referring Provider Act kev Start: September 27, 2024 End: October 23, 2024 Team Status: Active Member Role Status Dates Dr. Nimisha Oseguera MD Primary Care Provider Active Start: September 28, 2024 Dr. Shay Gaxiola DO Admit Provider Active Start: September 28, 2024 Dr. Shay Gaxiola DO Attending Provider Act kev Start: September 28, 2024 Dr. Shay Gaxiola DO Other Provider Active Start: September 28, 2024 Team Status: Active Member Role Status Dates Dr. Nimisha Oseguera MD Primary Care Provider Active Start: September 30, 2024 Dr. Shay Gaxiola DO Admit Provider Active Start: September 30, 2024 Dr. Shay Gaxiola DO Attending Provider Act kev Start: September 30, 2024 Dr. Shay Gaxiola DO Other Provider Active Start: September 30, 2024 Team Status: Active Member Role Status Dates Dr. Nimisha Oseguera MD Primary Care Provider Active Start: October 01, 2024 End: October 01, 2024 Dr. Juan C Guthrie MD Attending Provider Active Start: October 01, 2024 End: October 01, 2024 Dr. Shay Gaxiola , DO Referring Provider Act kev Start: October 01, 2024 End: October 01, 2024 Team Status: Active Member Role Status Dates Dr. Nimisha Oseguera MD Primary Care Provider Active Start: October 01, 2024 Dr. Shay Gaxiola DO Admit Provider Active Start: October 01, 2024 Dr. Shay Gaxiola , DO Attending Provider Act kev Start: October 01, 2024 Dr. Shay Gaxiola , DO Other Provider Active Start: October 01, 2024 Team Status: Active Member Role Status Dates Dr. Nimisha Oseguera MD Primary Care Provider Active Start: October 03, 2024 Dr. Shay Gaxiola DO Admit Provider Active Start: October 03, 2024 Dr. Shay Gaxiola , DO Attending Provider Act kev Start: October 03, 2024 Dr. Shay Gaxiola DO Other Provider Active Start: October 03, 2024 Team Status: Active Member Role Status Dates Dr. Nimisha Oseguera MD Primary Care Provider Active Start: October 07, 2024 Dr. Shay Gaxiola DO Admit Provider Active Start: October 07, 2024 Dr. Shay Gaxiola , DO Attending Provider Act kev Start: October 07, 2024 Dr. Shay Gaxiola , Other Provider Active Start: October 07, 2024 Team Status: Active Member Role Status Dates Dr. Nimisha Oseguera MD Primary Care Provider Active Start: October 08, 2024 Dr. Shay Gaxiola DO Admit Provider Active Start: October 08, 2024 Dr. Shay Gaxiola , DO Attending Provider Act kev Start: October 08, 2024 Dr. Shay Gaxiola , DO Other Provider Active Start: October 08, 2024 Team Status: Active Member Role Status Dates Dr. Nimisha Oseguera MD Primary Care Provider Active Start: October 10, 2024 Dr. Shay Gaxiola DO Admit Provider Active Start: October 10, 2024 Dr. Shay Gaxiola DO Attending Provider Act kev Start: October 10, 2024 Dr. Shay Gaxiola DO Other Provider Active Start: October 10, 2024 Team Status: Active Member Role Status Dates Dr. Nimisha Oseguera MD Primary Care Provider Active Start: October 14, 2024 Dr. Shay Gaxiola DO Admit Provider Active Start: October 14, 2024 Dr. Shay Gaxiola , DO Attending Provider Act kev Start: October 14, 2024 Dr. Shay Gaxiola DO Other Provider Active Start: October 14, 2024 Team Status: Active Member Role Status Dates Dr. Nimisha Oseguera MD Primary Care Provider Active Start: October 14, 2024 End: October 14, 2024 Dr. Juan C Guthrie MD Attending Provider Active Start: October 14, 2024 End: October 14, 2024 Dr. Shay Gaxiola , DO Referring Provider Act kev Start: October 14, 2024 End: October 14, 2024 Team Status: Active Member Role Status Dates Dr. Nimisha Oseguera MD Primary Care Provider Active Start: October 15, 2024 Dr. Shay Gaxiola DO Admit Provider Active Start: October 15, 2024 Dr. Shay Gaxiola , DO Attending Provider Act kev Start: October 15, 2024 Dr. Shay Gaxiola DO Other Provider Active Start: October 15, 2024 Team Status: Active Member Role Status Dates Dr. Nimisha Oseguera MD Primary Care Provider Active Start: October 16, 2024 Dr. Shay Gaxiola DO Admit Provider Active Start: October 16, 2024 Dr. Shay Gaxiola DO Attending Provider Act kev Start: October 16, 2024 Dr. Shay Gaxiola , Other Provider Active Start: October 16, 2024 Team Status: Active Member Role Status Dates Dr. Nimisha Oseguera MD Primary Care Provider Active Start: October 21, 2024 Dr. Shay Gaxiola DO Admit Provider Active Start: October 21, 2024 Dr. Shay Gaxiola DO Attending Provider Act kev Start: October 21, 2024 Dr. Shay Gaxiola DO Referring Provider Act kev Start: October 21, 2024 Dr. Shay Gaxiola DO Other Provider Active Start: October 21, 2024 Team Status: Active Member Role Status Dates Dr. Nimisha Oseguera MD Primary Care Provider Active Start: October 22, 2024 Dr. Shay Gaxiola , DO Admit Provider Active Start: October 22, 2024 Dr. Shay Gaxiola , DO Attending Provider Act kev Start: October 22, 2024 Dr. Shay Gaxiola , DO Referring Provider Act kev Start: October 22, 2024 Dr. Shay Gaxiola , DO Other Provider Active Start: October 22, 2024 Alterations Supervisor Relationship Specialty Start Date End Date Daniel Perez MD PCP - General Family Medicine 12/14/15 Alterations Supervisor Relationship Specialty Start Date End Date Daniel Perez MD PCP - General Family Medicine 12/14/15 Alterations Supervisor Relationship Specialty Start Date End Date Daniel Perez MD PCP - General Family Medicine 12/14/15 Alterations Supervisor Relationship Specialty Start Date End Date Daniel Perez MD PCP - General Family Medicine 12/14/15 Alterations Supervisor Relationship Specialty Start Date End Date Daniel Perez MD PCP - General Family Medicine 12/14/15 Alterations Supervisor Relationship Specialty Start Date End Date Daniel Perez MD PCP - General Family Medicine 12/14/15 Alterations Supervisor Relationship Specialty Start Date End Date Daniel Perez MD PCP - General Family Medicine 12/14/15 Alterations Supervisor Relationship Specialty Start Date End Date Daniel Perez MD PCP - General Family Medicine 12/14/15 Alterations Supervisor Relationship Specialty Start Date End Date Daniel Perez MD PCP - General Family Medicine 12/14/15 Alterations Supervisor Relationship Specialty Start Date End Date Daniel Perez MD PCP - General Family Medicine 12/14/15 Alterations Supervisor Relationship Specialty Start Date End Date aDniel Perez MD PCP - General Family Medicine 12/14/15 Alterations Supervisor Relationship Specialty Start Date End Date Daniel Perez MD PCP - General Family Medicine 12/14/15 Alterations Supervisor Relationship Specialty Start Date End Date Daniel Perez MD PCP - General Family Medicine 12/14/15 Alterations Supervisor Relationship Specialty Start Date End Date Nimisha Oseguera MD [address] [place] [address] PCP - General Internal Medicine 09/02/24 Alterations Supervisor Relationship Specialty Start Date End Date Nimisha Oseguera MD [address] [place] [address] PCP - General Internal Medicine 09/02/24 Alterations Supervisor Relationship Specialty Start Date End Date Nimisha Oseguera MD [address] [place] [address] PCP - General Internal Medicine 09/02/24 Alterations Supervisor Relationship Specialty Start Date End Date Nimisha Oseguera MD [address] [place] [address] PCP - General Internal Medicine 09/02/24 Team Status: Active Member Role Status Dates Dr. Gerardo Duque DO Emergency Provider Active Start : September 24, 2024 Dr. Nimisha Oseguera MD Primary Care Provider Active Start: September 24, 2024 Dr. Gerardo Vizcaino DO Admit Provider Active Start: September 24, 2024 Dr. Gerardo Vizcaino DO Attending Provider Active Start: September 24, 2024 Goals (unrecognized section and content) Goals may be documented in a n alternate section FOR RECORDS PERTAINING TO PATIENTS WHO ARE OR HAVE BEEN ENROLLED IN A CHEMICAL DEPENDENCY/SUBSTANCEABUSE PROGRAM, SOME INFORMATION MAY BE OMITTED. This clinical summary was aggregated from multiple sources. Caution should be exercised in using it in the provision of clinical care. This summary normalizes information from multiple sources, and as a consequence, information in this document may materially change the coding, format and clinical context of patient data. In addition, data may be omitted in some cases. CLINICAL DECISIONS SHOULD BE BASED ON THE PRIMARY CLINICAL RECORDS. [employer] provides no warranty or guarantee of the accuracy or completeness of information in this document.
--- NOTE | 2024-11-02 07:51 | CT_ITS ---
PROCEDURE: SPINE CERVICAL WITHOUT CONTRAS 11/02/2024 REASON FOR EXAM: INJURY/PAIN TECHNIQUE: SPINE CERVICAL WITHOUT CONTRAS Coronal and Sagittal reconstruction series were provided. One or more dose reduction techniques were used (e.g., Automated exposure control, adjustment of the mA and/or kV according to patient size, use of iterative reconstruction technique. RADIATION DOSE SUMMARY: DLP: 471 mGycm COMPARISON: None FINDINGS: No acute compression deformity, fracture, or subluxation. Moderate multilevel degenerative changes with mild to moderate multilevel central canal stenosis and foraminal stenosis due to posterior disc-osteophyte complex, facet hypertrophy, and uncovertebral hypertrophy most prominent at right C4-C5 and right C5-C6. The prevertebral soft tissues are not thickened. Thyroid is unremarkable. Limited sections of the lung apices demonstrate no pneumothorax. Right apical scarring. CT/Spine Cervical without Contras IMPRESSION: No acute cervical fracture or subluxations. Reading Location: [id number]
--- NOTE | 2024-11-02 07:51 | CT_ITS ---
PROCEDURE: BRAIN/HEAD WITHOUT CONTRAST 11/02/2024 REASON FOR EXAM: INJURY/PAIN TECHNIQUE: BRAIN/HEAD WITHOUT CONTRAST Coronal and Sagittal reconstruction series were provided. One or more dose reduction techniques were used (e.g., Automated exposure control, adjustment of the mA and/or kV according to patient size, use of iterative reconstruction technique. RADIATION DOSE SUMMARY: DLP: 847 mGycm COMPARISON: MR from 09/25/2024 FINDINGS: There is no acute infarct, intracranial hemorrhage, or mass effect. There is no hydrocephalus or significant midline shift. There is severe chronic microvascular ischemic changes and moderate to severe parenchymal volume loss. No acute, depressed calvarial fractures. No large scalp hematomas. CT/Brain/Head without Contrast IMPRESSION: No acute intracranial process Reading Location: [id number]
--- NOTE | 2024-11-02 08:05 | RAD_ITS ---
PROCEDURE: RIBS UNI MIN 3V W/PA CHEST 11/02/2024 REASON FOR EXAM: FALL TECHNIQUE: RIBS UNI MIN 3V W/PA CHEST COMPARISON: 10/15/2024 FINDINGS: No acute, displaced right rib fractures however if there is continued concern, consider CT further evaluation. No focal consolidations. Mild pulmonary vascular congestion. No pneumothorax. No pleural effusion. Mild cardiomegaly. Calcified aortic arch. Multiple circular radiodensities within the right upper quadrant likely gallstones versus renal stones. RAD/Ribs Uni Min 3V w/PA Chest IMPRESSION: No acute, displaced right rib fractures however if there is continued concern, consider CT further evaluation. Multiple circular radiodensities within the right upper quadrant likely gallsto samantha versus renal stones. Reading Location: [id number]
[2024-11-02 09:13] VITALS: BP 134/80; PULSE 84; RESP 18; TEMP 36.6; O2SAT 98
== END 2024-11-02 09:40 | disposition home or self-care (01) ==
PROVIDERS: Emergency Provider Emergency Medicine; PCP Internal Medicine; Visit Provider Emergency Medicine
DX: S01.81XA Laceration without foreign body of other part of head, initial encounter (principal); E78.5 Hyperlipidemia, unspecified; Z87.891 Personal history of nicotine dependence; W18.30XA Fall on same level, unspecified, initial encounter; I10 Essential (primary) hypertension; S09.90XA Unspecified injury of head, initial encounter; W07.XXXA Fall from chair, initial encounter; Y92.129 Unspecified place in nursing home as the place of occurrence of the external cause; Z86.73 Personal history of transient ischemic attack (TIA), and cerebral infarction without residual deficits; K21.9 Gastro-esophageal reflux disease without esophagitis; Z79.899 Other long term (current) drug therapy; N40.0 Benign prostatic hyperplasia without lower urinary tract symptoms; Z79.82 Long term (current) use of aspirin; Z90.49 Acquired absence of other specified parts of digestive tract
CPT/HCPCS: 70450; 71101; 72125; 99285

== ENCOUNTER 2024-12-31 14:26 | Inpatient (IN) | payer MEDICARE, SELFPAY ==
[2024-12-31] VITALS (23 sets, daily range): BP systolic 84–123; BP diastolic 50–94; PULSE 64–108; RESP 12–28; TEMP 36.1–36.8; O2SAT 76–100; BMI 25.2; BMI 22.3
--- NOTE | 2024-12-31 14:31 | EKG12_ITS ---
Test Reason : CP Blood Pressure : */* mmHG Vent. Rate : 107 BPM Atrial Rate : 107 BPM P-R Int : 174 ms QRS Dur : 98 ms QT Int : 358 ms P-R-T Axes : 49 -47 72 degrees QTcB Int : 477 ms Sinus tachycardia Incomplete right bundle branch block Left anterior fascicular block Minimal voltage criteria for LVH, may be normal variant ( R in aVL ) Inferior infarct (cited on or before 22-Oct-2024) Cannot rule out Anterior infarct , age undetermined Abnormal ECG Confirmed by JAIMIE CHAWLA ([id number]), video news editor CARON DYER ([id number]) on 01/01/2025 1:53:42 PM Referred By: Confirmed By: JAIMIE CHAWLA
--- NOTE | 2024-12-31 14:44 | EDS_ITS ---
HPI History of Present Illness Chief Complaint: Shortness of Breath Informant: patient and family Narrative Narrative: Presents by private vehicle with daughter for sudden onset of dyspnea 1 hour prior to arrival. She has had a cough for 2 weeks. History of asthma. Does have history of dementia. Lives at home. Reported wheezing. Not a diabetic. Denies cardiac history of heart failure or heart attacks. Per daughter has a valve issue. History of TIA in the past. Hyperlipidemia BPH. There is been no vomiting or diarrhea. No urinary symptoms. Patient is DNR [facility] and records and confirmed with daughter. Has been no recent travel or surgeries. No history of PE or DVT. No immobilization. Patient takes baby aspirin. No other blood thinners. PE Risk Factors: Negative for OCP + Smoking + > 35, Prior DVT or PE, Recent immobilization, Recent surgery or Recent travel [facility] Medical History (Updated 12/31/24 @ 22:[address] Gerardo Duque, DO) GERD (gastroesophageal reflux disease) Former smoker Asthma Hypertension TIA (transient ischemic attack) Dementia Mild aortic stenosis Presbycusis Tobacco dependence in remission Dyslipidemia Vitamin D deficiency Acute ischemic right MCA stroke Fall History of esophageal dilatation Esophageal stenosis Urinary retention BPH (benign prostatic hyperplasia) Essential (primary) hypertension Seizure disorder Urinary tract infection Dehydration Acute kidney injury Acute encephalopathy Debility Esophageal foreign body GERD (gastroesophageal reflux disease) Home Medications ?Medication ?Instructions ?Recorded ?Last Taken ?Type omeprazole 20 mg capsule,delayed 40 mg PO DAILY GERD 0 01/02/16 09/27/24 History release cyanocobalamin (vitamin B-12) 500 500 mcg PO DAILY Sup plement 03/05/24 09/27/24 History mcg tablet (Vitamin B-12) tamsulosin 0.4 mg capsule 0.4 mg PO DAILY Bladder 02/0609/27/24 History aspirin 81 mg chewable tablet 81 mg PO DAILYCM Heart h ealth #0 09/27/24 09/27/24 Rx tabs atorvastatin 40 mg tablet 40 mg PO QHS cholestrol #0 t abs 09/27/24 09/26/24 Rx ergocalciferol (vitamin D2) 1,250 1,250 mcg PO Q7D@100 0 supplement 09/27/24 09/26/24 Rx mcg (50,000 unit) capsule (Vitamin #0 caps D2) food supplemt, lactose-reduced 120 ml PO 4X/DAY supple ment #0 mL 09/27/24 09/27/24 Rx 0.08 gram-1.5 kcal/mL oral liquid (Ensure Plus High Protein) melatonin 3 mg tablet 3 mg PO QHS #1 TAB 10/22/24 Unknown Rx menthol 0.44 %-zinc oxide 20.6 % 1 applic topical 599 ,2199 #1 g 10/22/24 Unknown Rx topical ointment (Calmoseptine) metoprolol tartrate 25 mg tablet 25 mg PO BID #1 TAB 0 10/22/24 Unknown Rx nystatin 100,000 unit/gram topical 1 applic topical ,2199 #1 g 10/22/24 Unknown Rx powder quetiapine 25 mg tablet 50 mg (2 x 25 mg) PO 2100 #1 TAB 10/22/24 Unknown Rx sennosides 8.6 mg-docusate sodium 1 tab PO BID #1 TAB 10/22/24 Unknown Rx 50 mg tablet (Stimulant Laxative Plus) tramadol 50 mg tablet 25 mg (1/2 x 50 mg) PO Q6H P RN PRN 10/22/24 Unknown Rx Pain 4-10 1 week #20 tabs acetaminophen 500 mg tablet 1,000 mg PO BID pain 12/31 Unknown History lisinopril 5 mg tablet 5 mg PO DAILY 12/31/24 Unkno wn History Allergy/AdvReac Type Severity Reaction Status Date / Time egg Allergy Anaphylaxis Verified 12/31/24 14:29 Family History Mother Colon cancer Father Cancer Surgical History History of colectomy History of left inguinal hernia repair History of esophagogastroduodenoscopy (EGD) Social History household members: spouse and other details: 's name is Dexter housing: house number of children: 6 Smoking Status: Former smoker how long ago did patient quit smokin years ago alcohol intake: never substance use type: does not use ROS ROS ED Constitutional Constitutional ED: Denies chills, fever(s) or sweats ENT ENT ED: Denies sore throat Cardiovascular Cardiovascular: Denies chest pain, leg edema, palpitations or racing heartbeat Respiratory/Chest Respiratory/Chest: Reports cough and dyspnea; Denies dyspnea on exertion Gastrointestinal Gastrointestinal: Denies abdominal pain, diarrhea, nausea or vomiting Genitourinary Genitourinary ED: Denies dysuria, hematuria or urinary frequency Musculoskeletal Musculoskeletal: Denies back pain, extremity pain or neck pain Integumentary Denies rash or wounds Neurologic Neurologic: Denies headache(s), paresthesias or weakness EXAM Physical Exam Const Vital Signs: 12/31/24 14:26 12/31/24 14:31 12/31/24 14:41 Temperature 96.9 F L Temperature Source Temporal Pulse Rate 108 H Respiratory Rate 24 H Respiratory Effort Respiratory Depth Respiratory Pattern Blood Pressure 86/56 L Blood Pressure Mean 66 Pulse Ox 76 89 Oxygen Delivery Method Room Air Venturi Mask Oxygen Flow Rate (L/min) 12 Fraction of Inspired Oxygen (FIO2) 50 12/31/24 14:53 12/31/24 14:58 12/31/24 15:03 Temperature Temperature Source Pulse Rate Respiratory Rate Respiratory Effort Short of Breath Labored Respiratory Depth Shallow Respiratory Pattern Tachypnea Blood Pressure Blood Pressure Mean Pulse Ox Oxygen Delivery Method High Flow High Flow High Flow Oxygen Flow Rate (L/min) 70 70 Fraction of Inspired Oxygen (FIO2) 100 100 12/31/24 15:08 12/31/24 15:36 12/31/24 15:50 Temperature 98.2 F Temperature Source Oral Pulse Rate 97 91 Respiratory Rate 22 H 28 H 22 H Respiratory Effort Respiratory Depth Respiratory Pattern Tachypnea Blood Pressure 84/50 L 98/58 L Blood Pressure Mean 61 71 Pulse Ox 93 92 97 Oxygen Delivery Method High Flow High Flow Oxygen Flow Rate (L/min) 70 70 Fraction of Inspired Oxygen (FIO2) 100 100 100 12/31/24 16:34 12/31/24 17:08 12/31/24 17:30 Temperature Temperature Source Pulse Rate 64 87 91 Respiratory Rate 28 H 18 19 H Respiratory Effort Respiratory Depth Respiratory Pattern Tachypnea Blood Pressure 99/60 100/65 Blood Pressure Mean 73 76 Pulse Ox 97 92 92 Oxygen Delivery Method High Flow High Flow Oxygen Flow Rate (L/min) 70 Fraction of Inspired Oxygen (FIO2) 70 70 Positive well nourished and well developed Constitutional Narrative: Currently nonrebreather 15 L. No distress at this time. General Appearance ED: well developed HEENT Reports moist mucous membranes normocephalic and atraumatic Eyes General Eye ED: Yes normal appearance of both eyes Neck full ROM Chest Wall Chest: Negative for tenderness Resp Resp Narrative: Mild coarse breath sounds lower lobes. Symmetric breath sounds. Effort and Inspection: Negative for respiratory distress Cardio regular rhythm and no murmurs Rate: tachycardic Peripheral Pulses: pulses 2+ throughout GI normal to inspection, nondistended, normoactive bowel sounds and non-tender Palpation: Negative for guarding or rebound tenderness present Extremity normal to inspection General Extremety ED: Negative for edema or tenderness General Extremity: Negative for edema Neuro oriented x3 and no sensory deficits noted Sensorium / Orientation: awake and alert Skin no rashes or lesions noted and no wounds Sepsis Attestation Sepsis Alert: Yes Sepsis Attestation: Agree w/Sepsis Date exam was performed: 12/31/24 Time exam was performed: 15:00 Possible Source of Sepsis: Pulmonary Sepsis Organ Dysfunction Criteria Present: SBP < 90 mmHg or MAP < 65 mmHg and Lactic Acid > 2 mmol/L Fluid Resuscitation Fluid resuscitation indicated?: Yes Fluid Resuscitation ordered: 30 ml/kg fluid bolus ordered Amount of fluid ordered: 2,000 MDM MDM MDM Narrative Medical decision making narrative: Interventions / MDM: Differential diagnosis: Severe sepsis, commune acquired pneumonia, hypoxia Diagnosis considered but do not suspect: Pulmonary embolus however CT negative. My EKG interpretation: Sinus rate of 107, no ST changes. Incomplete left bundle branch block. Imaging independently reviewed and interpreted by myself: N/A External documents reviewed: N/A Test considered but not ordered:N/A ED course: Patient is alert and orient x 3 presented 76% on room air he was placed on a nonrebreather. Blood pressure 86/56 on arrival. Sepsis labs ordered. Asthma history reported wheezing at home will start Solu-Medrol. 1 L normal saline bolus. ABG ordered. EKG sinus tachycardia. 1505: Patient transition over high flow oxygenation currently at 70% to get him above 90. In no respiratory distress. Blood gases pending. 1550: Blood gas pH 7.44, PaO2 97.6 CO2 44.7 this is on 70% oxygenation. Lactic acid returned at 3.8. Chest x-ray by myself possible right lower lobe infiltrate. No pneumothorax. However with significant hypoxia and oxygen dem ands, will send him for CT angiogram of the chest. Pressure still on the lower end in the 80s, will add additional liter of fluids which would be over the 30 cc/kg bolus. 1645: CT angiogram chest performed interpreted mysel no appreciable PE however notes bilateral lower lobe infiltrates left greater than right. Will await final read. Will start antibiotics of Rocephin and Zithromax for sepsis pneumonia coverage. Final read from radiology confirms no PE multilobar infiltrates. Also reported L1 compression fracture with retropulsion. Provided patient nontender L1 reported he had a fall few months ago pelvic fracture went through rehab upstairs he has been ambulatory with a walker at home. He has no leg weakness or paresthesias. I discussed with hospitalist Dr. Richards, discussed patient's presentation findings along with his lumbar fracture with no neurological deficits at this time. Patient admitted to ICU for further management. Re-evaluation: stable Disposition discussed with patient/family/significant other: Patient and family Case discussed with consulting clinician: Hospitalist This note was generated with [employer] dictation software. It may contain incorrect words, spelling, and punctuation that were not noted in checking the note before signing. Lab Data Attestation: I reviewed the patient's lab results. Labs: Laboratory Results - last 24 hr 12/31/24 12/31/24 12/31/24 14:40 15:00 16:42 WBC 5.2 RBC 4.14 L Hgb 12.1 L Hct 37.6 L MCV 90.8 MCH 29.2 MCHC 32.2 RDW Std Deviation 48.4 H RDW Coeff of Brook 14.5 Plt Count 224 MPV 11.0 Immature Gran % (Auto) 0.600 Neut % (Auto) 70.8 H Lymph % (Auto) 20.1 Wayne % (Auto) 5.4 Eos % (Auto) 2.5 Baso % (Auto) 0.6 Absolute Neuts (auto) 3.7 Absolute Lymphs (auto) 1.05 Nucleated RBC % 0 PT 14.9 INR 1.1 APTT 30.0 Sodium 146 H Potassium 3.7 Chloride 108 Carbon Dioxide 23.2 Anion Gap 14 BUN 24 H Creatinine 1.19 Estim Creat Clear Calc 30.35 L Est GFR (MDRD) Non-Af 59 L BUN/Creatinine Ratio 20.4 H Glucose 267 H Lactic Acid 3.8 H* Calcium 8.7 Total Bilirubin 0.48 AST 17 ALT 10 Alkaline Phosphatase 93 Troponin T High Sens 31 H Troponin T Hi Sens 2 Hr 31 H Total Protein 5.7 L Albumin 3.1 L Globulin 2.6 Albumin/Globulin Ratio 1.2 ABG Data ABG results: ABG 12/31/24 15:29 Specimen Type ART Sample Site R Radial pH 7.41 Bicarbonate Actual 28.4 H Total CO2 30 Base Excess 4 H O2 Saturation 98 O2 % 100.0 ABG pCO2 44.7 ABG pO2 98 O2 Delivery Device HFNC Vent Mode Not entered Radiography Diagnostic Testing: Clinical Impression(s) from Imaging Studies Chest X-Ray 12/31/24 15:20 IMPRESSION: No Acute Findings. Reading Location: [facility] Chest CTA 12/31/24 15:49 IMPRESSION: *No pulmonary embolism to the subsegmental level. *Bibasilar consolidations with superimposed ground-glass and peribronchovascular opacities, suspicious for multifocal pneumonia (including aspiration) versus pulmonary edema. *New L1 compression fracture with osseous retropulsion, age indeterminate. *Additional findings: coronary artery calcifications, tortuous thoracic aorta with atherosclerosis, 1.6 cm left thyroid nodule, hiatal hernia, cholelithiasis without cholecystitis, large left renal cyst. Reading Location: [facility] Critical Care Time Critical Care Time: Yes Critical care time (excluding procedures): 30-74 minutes, Discussing w/Patient &/or Family/Churn Operator Margarine, Discussing w/Consultants, Arranging Admission or Transfer, Performing Direct Patient Care at Bedside and - (48 minutes) Discharge Plan Dx/Rx/DC Orders Clinical Impression: Severe sepsis, Community acquired pneumonia, Acute hypoxemic respiratory failure, Compression fracture of lumbar vertebra Disposition Disposition: Acute Care Hospital [facility] Discharge Date/Time: 12/31/24 18:29
[2024-12-31] MEDS: 0.9% Normal Saline (1000mL) 1,000 ML 999 ML IV ×2 (14:50→15:57)
[2024-12-31 15:11] LABS: Hematocrit 37.6 % (40-54); Hemoglobin 12.1 g/dL (13.0-16.5); Immature Granulocytes Count 0.030 X10^3/uL (0.0-0.0); Mean Corp Hgb Conc 32.2 g/dL (32-36); Mean Corpuscular Volume 90.8 fL (80-94); Mean Platelet Vol. 11.0 fl (6.2-12.0); NRBC Flagged by Analyzer 0 % (0-5); Platelet Count 224 K/mm3 (150-450); RBC Distribution Width CV 14.5 % (11.6-14.6); RBC Distribution Width SD 48.4 fl (35.1-43.9); Red Blood Count 4.14 M/mm3 (4.6-6.2); White Blood Count 5.2 K/mm3 (4.4-11.0)
[2024-12-31 15:19] LABS: Prothrombin Time (Protime)PT. 14.9 SECONDS (11.7-14.9)
[2024-12-31 15:20] LABS: Partial Thromboplast Time 30.0 Seconds (24.1-36.2)
--- NOTE | 2024-12-31 15:20 | RAD_ITS ---
PROCEDURE: CHEST 1 VIEW (PORTABLE) 12/31/2024 REASON FOR EXAM: SOB TECHNIQUE: Frontal view of the chest. COMPARISON: 11/02/2024. FINDINGS: The heart is normal in size. The lungs are clear. No acute osseous abnormalities. RAD/Chest 1 View (Portable) IMPRESSION: No Acute Findings. Reading Location: [id number]
[2024-12-31 15:33] LABS: Base Excess 4 mmol/L (-2 to +2); FI02 100.0; PO2 98 mmHG (75-100); SITE R Radial; SO2 98 % (95-99)
--- NOTE | 2024-12-31 15:49 | CT_ITS ---
PROCEDURE: CTA CHEST W/WO CONTRAST 12/31/2024 REASON FOR EXAM: SOB, HYPOXIA, COUGH TECHNIQUE: CTA CHEST W/WO CONTRAST Multiplanar Sagittal and Coronal images were obtained. CONTRAST: Isovue 370 VOLUME: 100 mL One or more dose reduction techniques were used (e.g., Automated exposure control, adjustment of the mA and/or kV according to patient size, use of iterative reconstruction technique). RADIATION DOSE SUMMARY: CTDlvol: 4+ 6 mGy DLP: 216 mGycm COMPARISON: 10/12/2024 radiograph FINDINGS: Pulmonary Arteries: *No filling defects are seen to the subsegmental level. *Pulmonary arteries normal in caliber. Lungs & Airways: *Bilateral dependent and posterior lower lobe consolidations with air bronchograms, greatest at the lung bases. *Superimposed diffuse peribronchovascular and interstitial ground-glass opacities. *No significant pleural effusion. *Central airways patent. Mediastinum / Heart / Vessels: *Heart normal in size. *Coronary artery calcifications present. *Thoracic aorta is normal caliber but tortuous, with mild-moderate atherosclerosis. *No mediastinal lymphadenopathy. Thyroid: *Left lobe thyroid nodule, hypodense, 1.6 cm. Abdomen (limited coverage): *Cholelithiasis without pericholecystic inflammatory change. *Large simple left renal cyst. *Hiatal hernia present. Osseous Structures: *Diffuse osteosclerosis/osteopenia. *Moderate anterior compression deformity of L1 with ~4 mm osseous retropulsion at superior endplate, new since radiograph 10/15/24 but age indeterminate. *Degenerative changes of the spine. Other: *Peripheral soft tissues unremarkable. CT/CTA Chest W/WO Contrast IMPRESSION: *No pulmonary embolism to the subsegmental level. *Bibasilar consolidations with superimposed ground-glass and peribronchovascula r opacities, suspicious for multifocal pneumonia (including aspiration) versus pulmonary edema. *New L1 compression fracture with osseous retropulsion, age indeterminate. *Additional findings: coronary artery calcifications, tortuous thoracic aorta w ith atherosclerosis, 1.6 cm left thyroid nodule, hiatal hernia, cholelithiasis without cholecystitis, large left renal cyst. Reading Location: [id number]
[2024-12-31 15:50] LABS: AST(SGOT) 17 U/L (<=37); Alanine Aminotransfer ALT/SGPT 10 U/L (<=46); Albumin, Serum 3.1 g/dL (3.4-4.8); Alkaline Phosphatase 93 U/L (40-129); Anion Gap 14 (5-15); BUN 24 mg/dL (4-19); BUN/Creat Ratio 20.4 RATIO (10-20); Calcium,Total 8.7 mg/dL (7.6-11.0); Carbon Dioxide 23.2 mmol/L (21.0-32.0); Chloride 108 mmol/L (98-108); Estimated Creatinine Clearance 30.35 ml/min (50-250); Globulin 2.6 g/dL (2.2-4.2); Glucose 267 mg/dL (70-99); Potassium 3.7 mmol/L (3.3-5.1); Troponin T High Sensitivity 31 ng/L (<=22)
[2024-12-31] MEDS: Ceftriaxone 2 GM in 0.9% Normal Saline (50mL MB+) 50 ML IV (17:11)
[2024-12-31 17:17] LABS: Troponin T High Sens 2 HR 31 ng/L (<=22)
[2024-12-31] MEDS: Azithromycin 500 MG in 0.9% Normal Saline (250mL Bag) 250 ML 255 MG IV (17:54)
--- NOTE | 2024-12-31 18:18 | PCM.HP.STD ---
HPI - General General Date of Admission: 12/31/24 Date of Service: 12/31/24 Chief Complaint: SOB HPI Narrative AYESHA JACOBSEN, is a 89-year-old male history of GERD, BPH, CVA, hypertension who presented [facility] ED 12/31/2024 with cough for 2 weeks and dyspnea 1 hour prior to arrival. History of dementia and asthma but lives at home. In the ED temp 96.9, heart rate 108, blood pressure 86/56 with respiratory rate of 24 and pulse ox 96% on room air, patient transitioned to 100% high flow with sats at 93 and respiratory rate up to 28. CBC w/ WBC 5.2, hgb 12, BMP w/ Na 146, bun 24 and Cr 1.19, glc 267. Troponin of 31 x 2 and lactic acid 3.8, patient's ABG on high flow nasal cannula with a pH 7.41, bicarb 28.4 and saturating well. Patient's blood pressure responded to fluids and he was more comfortable on high flow, CTA with no PE but did show multifocal pneumonia. Patient diagnosed with sepsis, he was given IV antibiotics and hospitalist contacted for admission. Patient evaluated bedside with family members present, patient able to answer some questions but also somewhat poor historian so son supplemented history. Reportedly patient has been coughing for at least a couple of months but more so the past 2 weeks and then today he was eating when he suddenly became short of breath and felt unwell, reportedly does have a history of requiring thickened liquids due to aspiration risk however he has been noncompliant with that at home. Sometimes does cough when he eats. Denies any chest pain currently, has some chronic back pain but nothing new, last fall was a month ago. No abdominal pain or nausea or vomiting, has noted increased urinary frequency urinating up to every hour which is slowly worsening. Has some chronic problems with balance and slowly worsening vision. Patient seen on high flow, reports he is starting to feel better. Does still have cough and it is productive [facility] Medical History (Updated 12/31/24 @ 18:[address] Richa Ricahrds MD) Acute encephalopathy Acute ischemic right MCA stroke Acute kidney injury Asthma BPH (benign prostatic hyperplasia) Debility Dehydration Dementia Dyslipidemia Esophageal foreign body Esophageal stenosis Essential (primary) hypertension Fall Former smoker GERD (gastroesophageal reflux disease) GERD (gastroesophageal reflux disease) History of esophageal dilatation Hypertension Mild aortic stenosis Presbycusis Seizure disorder TIA (transient ischemic attack) Tobacco dependence in remission Urinary retention Urinary tract infection Vitamin D deficiency Home Medications ?Medication ?Instructions ?Recorded ?Last Taken ?Type omeprazole 20 mg capsule,delayed 40 mg PO DAILY GERD 01/02/16 09/27/24 History release cyanocobalamin (vitamin B-12) 500 500 mcg PO DAILY Supplement 03/05/24 09/27/24 History mcg tablet (Vitamin B-12) tamsulosin 0.4 mg capsule 0.4 mg PO DAILY Bladder 03/05/24 09/27/24 History aspirin 81 mg chewable tablet 81 mg PO DAILYCM Heart health #0 09/27/24 09/27/24 Rx tabs atorvastatin 40 mg tablet 40 mg PO QHS cholestrol #0 tabs 09/27/24 09/26/24 Rx ergocalciferol (vitamin D2) 1,250 1,250 mcg PO Q7D@1000 supplement 09/27/24 09/26/24 Rx mcg (50,000 unit) capsule (Vitamin #0 caps D2) food supplemt, lactose-reduced 120 ml PO 4X/DAY supplement #0 mL 09/27/24 09/27/24 Rx 0.08 gram-1.5 kcal/mL oral liquid (Ensure Plus High Protein) melatonin 3 mg tablet 3 mg PO QHS #1 TAB 10/22/24 Unknown Rx menthol 0.44 %-zinc oxide 20.6 % 1 applic topical 0600,2200 #1 g 10/22/24 Unknown Rx topical ointment (Calmoseptine) metoprolol tartrate 25 mg tablet 25 mg PO BID #1 TAB 10/22/24 Unknown Rx nystatin 100,000 unit/gram topical 1 applic topical 0600,2200 #1 g 10/22/24 Unknown Rx powder quetiapine 25 mg tablet 50 mg (2 x 25 mg) PO 2100 #1 TAB 10/22/24 Unknown Rx sennosides 8.6 mg-docusate sodium 1 tab PO BID #1 TAB 10/22/24 Unknown Rx 50 mg tablet (Stimulant Laxative Plus) tramadol 50 mg tablet 25 mg (1/2 x 50 mg) PO Q6H PRN PRN 10/22/24 Unknown Rx Pain 4-10 1 week #20 tabs acetaminophen 500 mg tablet 1,000 mg PO BID pain 12/31/24 Unknown History lisinopril 5 mg tablet 5 mg PO DAILY 12/31/24 Unknown History Allergy/AdvReac Type Severity Reaction Status Date / Time egg Allergy Anaphylaxis Verified 12/31/24 14:29 Family History Mother Colon cancer Father Cancer Surgical History History of colectomy History of esophagogastroduodenoscopy (EGD) History of left inguinal hernia repair Social History household members: spouse and other details: 's name is Dexter housing: house number of children: 6 Smoking Status: Former smoker how long ago did patient quit smokin years ago alcohol intake: never substance use type: does not use ROS ROS Narrative General: Denies fever/chills HENT: Occasional headaches, denies stuffy nose, denies sore throat EYES: Chronic worsening changes in vision Resp: Productive cough, shortness of breath Cardiac: Denies chest pain GI: Denies abdominal pain, denies changes in bowel, denies nausea/vomiting : Urinary frequency Extremity: Denies swelling MSK: Feels somewhat generally weak Neuro: Denies any numbness/tingling Heme: Denies any bleeding or bruising Skin: Sometimes will get eczema rashes Psychiatric: No complaints voiced Vital Signs Vital Signs Vital Signs: 12/31/24 14:26 12/31/24 14:31 12/31/24 14:41 Temperature 96.9 F L Temperature Source Temporal Pulse Rate 108 H Respiratory Rate 24 H Respiratory Effort Respiratory Depth Respiratory Pattern Blood Pressure 86/56 L Blood Pressure Mean 66 Pulse Ox 76 89 Oxygen Delivery Method Room Air Venturi Mask Oxygen Flow Rate (L/min) 12 Fraction of Inspired Oxygen (FIO2) 50 12/31/24 14:53 12/31/24 14:58 12/31/24 15:03 Temperature Temperature Source Pulse Rate Respiratory Rate Respiratory Effort Short of Breath Labored Respiratory Depth Shallow Respiratory Pattern Tachypnea Blood Pressure Blood Pressure Mean Pulse Ox Oxygen Delivery Method High Flow High Flow High Flow Oxygen Flow Rate (L/min) 70 70 Fraction of Inspired Oxygen (FIO2) 100 100 12/31/24 15:08 12/31/24 15:36 12/31/24 15:50 Temperature 98.2 F Temperature Source Oral Pulse Rate 97 91 Respiratory Rate 22 H 28 H 22 H Respiratory Effort Respiratory Depth Respiratory Pattern Tachypnea Blood Pressure 84/50 L 98/58 L Blood Pressure Mean 61 71 Pulse Ox 93 92 97 Oxygen Delivery Method High Flow High Flow Oxygen Flow Rate (L/min) 70 70 Fraction of Inspired Oxygen (FIO2) 100 100 100 12/31/24 16:34 12/31/24 17:08 12/31/24 17:30 Temperature Temperature Source Pulse Rate 64 87 91 Respiratory Rate 28 H 18 19 H Respiratory Effort Respiratory Depth Respiratory Pattern Tachypnea Blood Pressure 99/60 100/65 Blood Pressure Mean 73 76 Pulse Ox 97 92 92 Oxygen Delivery Method High Flow High Flow Oxygen Flow Rate (L/min) 70 Fraction of Inspired Oxygen (FIO2) 70 70 Weight Weight: 58.7 kg Body Mass Index (BMI) 25.2 Physical Exam Narrative General: Alert, answers most questions appropriately HEENT: Atraumatic, normocephalic Eyes: Anicteric, normal conjunctiva, extraocular movements grossly intact Neck: Supple Respiratory: Increased respiratory effort, tachypneic, coarse bilaterally with scattered wheezes Cardiovascular: Regular rate and rhythm GI: Soft, nontender, nondistended Extremities: No significant pitting edema Musculoskeletal: Moving all extremities Neuro: No overt focal neurological deficits Skin: No rashes appreciated Psych: Cooperative Results Lab / Micro Data 12/31/24 15:00 12/31/24 15:00 Labs: Laboratory Results - last 24 hr 12/31/24 14:40: Lactic Acid 3.8 H* 12/31/24 15:00: WBC 5.2, RBC 4.14 L, Hgb 12.1 L, Hct 37.6 L, MCV 90.8, MCH 29.2, MCHC 32.2, RDW Std Deviation 48.4 H, RDW Coeff of [place] 14.5, Plt Count 224, MPV 11.0, Immature Gran % (Auto) 0.600, Neut % (Auto) 70.8 H, Lymph % (Auto) 20.1, [place] % (Auto) 5.4, Eos % (Auto) 2.5, Baso % (Auto) 0.6, Absolute Neuts (auto) 3.7, Absolute Lymphs (auto) 1.05, Nucleated RBC % 0, PT 14.9, INR 1.1, APTT 30.0, Sodium 146 H, Potassium 3.7, Chloride 108, Carbon Dioxide 23.2, Anion Gap 14, BUN 24 H, Creatinine 1.19, Estim Creat Clear Calc 30.35 L, Est GFR (MDRD) Non-Af 59 L, BUN/Creatinine Ratio 20.4 H, Glucose 267 H, Calcium 8.7, Total Bilirubin 0.48, AST 17, ALT 10, Alkaline Phosphatase 93, Troponin T High Sens 31 H, Total Protein 5.7 L, Albumin 3.1 L, Globulin 2.6, Albumin/Globulin Ratio 1.2 12/31/24 16:42: Troponin T Hi Sens 2 Hr 31 H Micro: Microbiology 12/31/24 15:00 Mucosa - Nose SARS-CoV-2, Influenza & RSV (PCR) - Final ABG Data ABG results: ABG 12/31/24 15:29 Specimen Type ART Sample Site R Radial pH 7.41 Bicarbonate Actual 28.4 H Total CO2 30 Base Excess 4 H O2 Saturation 98 O2 % 100.0 ABG pCO2 44.7 ABG pO2 98 O2 Delivery Device HFNC Vent Mode Not entered Imaging Radiology Impression Chest CTA 12/31/24 15:49 IMPRESSION: *No pulmonary embolism to the subsegmental level. *Bibasilar consolidations with superimposed ground-glass and peribronchovascular opacities, suspicious for multifocal pneumonia (including aspiration) versus pulmonary edema. *New L1 compression fracture with osseous retropulsion, age indeterminate. *Additional findings: coronary artery calcifications, tortuous thoracic aorta with atherosclerosis, 1.6 cm left thyroid nodule, hiatal hernia, cholelithiasis without cholecystitis, large left renal cyst. Reading Location: [facility] Assessment & Plan Assessment/Plan (1) Acute hypoxic respiratory failure: PLAN: Plan # Acute hypoxic respiratory failure and sepsis 2/2 multifocal pneumonia with asthma exacerbation -Patient with new requirement for high flow nasal cannula, tachypnea, hypotension, tachycardia on arrival with a lactic of 3.8 -Patient received the 30 cc/kg of IV fluids and blood pressure did respond -Blood culture sent -Imaging: CTA demonstrated no PE but multifocal pneumonia -DuoNebs and as needed albuterol -Sputum culture, COVID mixed, respiratory panel ordered -Urine antigens -Mucinex, I/S - Continue azithromycin and will change Rocephin to Unasyn given concerns for aspiration -IV methylprednisone -Scheduled DuoNebs -Albuterol prn -Incentive spirometer -Mucinex # Concern for aspiration, possibly because of #1 -Patient coughs sometimes with meals, has history of needing thickened liquids and became suddenly short of breath today after eating - Will consult speech therapy - Aspiration precautions while awaiting speech therapy evaluation # Elevated glucose - No documented history of diabetes, will check A1c - May be due to underlying infection - Monitor glucose checks and sliding scale insulin in the meantime #Hx CVA - Continue statin and aspirin #Chronic BPH with obstruction - Reports increasing urinary frequency -Continue home medications -Check UA -Check postvoid #GERD -Continue PPI #Hypertension - Hold home lisinopril and metoprolol given low BPs # History of esophageal dilation - No recent dilations per son #DVT ppx: Lovenox subcu Richa Richards MD CODE status: Discussed CODE status at length including difference between FULL code, DNR-CCA, and DNR-CC status. Following discussions about the differences in these status, requested DNR/DNI at this time. Patient considering changing CODE STATUS given current critical illness however after extensive discussion with him and family he is going to continue with what he previously wished which was DNR/DNI and patient and family will let us know if this changes. Advanced Care Planning Face to Face Time: 15 minutes. Sepsis Attestation Sepsis Alert: Yes Sepsis Attestation: Agree w/Sepsis Date exam was performed: 12/31/24 Time exam was performed: 17:30 Possible Source of Sepsis: Pulmonary Sepsis Organ Dysfunction Criteria Present: SBP < 90 mmHg or MAP < 65 mmHg, Acute Respiratory Failure (New need for BiPAP/CPAP or MV) and Lactic Acid > 2 mmol/L Fluid Resuscitation Fluid resuscitation indicated?: Yes Fluid Resuscitation ordered: 30 ml/kg fluid bolus ordered Amount of fluid ordered: 2,000 Sepsis Note Date exam was performed: 12/31/24 Time exam was performed: 18:24 Sepsis Attestation: Sepsis re-evaluation was performed Response to fluids: Fluid responsive hypotension Charges/Coding Multi Select Codes Visit Charges Visit Charges: 62774 Init Hosp L2 Hospitalists' Procedures Procedures: 15548 Advncd Care Plan 30 Min
--- NOTE | 2024-12-31 18:26 | ED.RN ---
Report called to [facility], ICU
[2024-12-31 18:56] LABS: Reflex Lactate? Y
--- OUTSIDE RECORDS SUMMARY | 2024-12-31 22:16 | XMS RPT_ITS | CCD ---
Author Organization [facility] Care Team Providers Care Senior Mechanical Technician Name Role Phone Chery Whitley LPN Unavailable Unavailable Chery Whitley LPN Unavailable Unavailable Daniel Perez MD Primary Care Provider [phone] CRISELDA RM Attending Unavailable DANIEL PEREZ Primary Care Unavailable DANIEL PEREZ Admitting Unavailable DANIEL PEREZ Attending Unavailable CRISELDA RM Referring Unavailable DANIEL PEREZ Primary Care Unavailable DANIEL PEREZ Primary Care Unavailable DANIEL PEREZ Admitting Unavailable DANIEL PEREZ Attending Unavailable ALEXANDER REYES Consulting Unavailable Nimisha Oseguera MD Primary Care Provider Dr. Gerardo Duque DO Emergency Provider Dr. Nimisha Oseguera MD Primary Care Provider de Dr. Gerardo Escalona DO Admit Provider Unavail able Dr. Gerardo Vizcaino DO Attending Provider Unav ailable Vizcaino DO, Dr. Carrillo Other Provider Unavail able Dr. Juju Vuong DO Attending Provider Dr. Juju Vuong DO Other Provider [phone] Kemal Chen MD Attending Provider Dr. Juju Vuong DO Referring Provider Dr. Kip Grant MD Attending Provider Willard Villalba MD Other Provider Unavailable Dr. Bubba Manriquez MD Other Provider Radha Lewis MD Other Provider Unavailable Dr. Stephanie Resendiz DO Other Provider [phone] Dr. Inocencia Gaines MD Other Provider [phone] Yg Savage MD Other Provider Leonardo RAYMOND, Dr. Umana Other [...] Unavailable Jamshid RAYMOND, Yousef Other Provider Unavailable Sementi DO, Dr. Shay Porter Admit Provider Semenvicky DO, Dr. Shay Porter Attending Provide r Sementi DO, Dr. Shay Porter Referring Provide r Sementi DO, Dr. Shay Porter Other Provider Jerri RAYMOND, Dr. Irizarry Attending Provider Deon RAYMOND, Dr. Castro Attending Provider Severo MEDINA, Dr. 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 Unavailable GANTA, NIMISHA Attending Unavailable GANTA, NIMISHA Primary Care Unavailable GANTA, NIMISHA Referring Unavailable GANTA, NIMISHA Primary Care Unavailable FABRICIO HALL Attending Unavailable DANIEL PEREZ Primary Care Unavailable DANIEL PEREZ Primary Care Unavailable DANIEL PEREZ Primary Care Unavailable JACQUELINE ESPINAL Referring Unavailable GANTA, NIMISHA Attending Unavailable GANTA, NIMISHA Primary Care Unavailable Sementi, Shay Porter Referring Unavaila ble Sementi, Shay Porter Attending Unavaila ble Sementi, Ginette Admitting Unavaila ble Sementi, Shay Porter Consulting [facility] Sementi, Ginette Referring Unavaila ble Sementi, Shay Porter Attending Unavaila ble Sementi, Ginette Admitting Unavaila ble Ganta, [facility] Primary Care Unavailable Tan, Darius Chi Admitting Unavailable Tan, Darius Chi Attending Unavailable Tan, Darius Chi Referring Unavailable [facility] Unavailable Sementi, Shay Porter Referring Unavaila ble Ganta, [facility] Primary Care Unavailable Juan C Guthrie Attending Unavailable Sementi, Shay Porter Referring Unavaila ble Ganta, [facility] Primary Care Unavailable Juan C Guthrie Attending Unavailable Sementi, Shay Porter Referring Unavaila ble DeonMatthew Attending Unavailable [facility] Care Unavailable Juju Vuong Attending Unavailable Gerardo Vizcaino Consulting Unavailable Gerardo Vizcaino Admitting Unavailable [facility] Care Unavailable Juju Vuong Consulting Unavailable Willard Villalba Consulting Unavailable Adeli, Amir Consulting Unavailable Hinduja, Radha Consulting Unavailable Martín, Stephanie Consulting Unavailable Zha, Inocencia Consulting Unavailable Janette, Yg Consulting Unavailable Leonardo, Lyndsay Consulting Unavailable BittarMickey Consulting Unavailable Zan Edmond Consulting Unavailable Atul Guerrero Consulting Unavailable Trang Armstrong Consulting Unavailable Garrett Machado Consulting Unavailable Margareth Harper Consulting Unavailable RidRufina cadena Consulting Unavailable Chuck, Izabeld Mikey Consulting UnavailLouis Tavares Consulting Unavailable Reid Rizo Consulting Unavailable Armani Liz Consulting Unavailable Brenda Vuong Consulting Unavailable Crow Breen Consulting Unavailable Juju Vuong Attending Unavailable Juju Vuong [facility] Kemal Elkins Attending Unavailable [facility] Primary Care Unavailable Tan, Darius Chi Attending Unavailable Tan, Darius Chi Referring Unavailable [facility] Unavailable Juju Vuong Attending Unavailable Gerardo Vizcaino Admitting Unavailable Gerardo Vizcaino Consulting Unavailable [facility] Primary Care Unavailable Kip Grant Attending Unavailabl e Gunnarta, Nimisha Primary Care Unavailable Kemal Chen Attending Unavailable Juju Vuong Referring Unavailable Nimisha Oseguera Primary Care Unavailable Gerardo Vizcaino Attending Unavailable Dr. Kemal Elkins DO Attending Provider [phone] Maurice RAYMOND, Dr. Chaudhry Admit Provider Maurice RAYMOND, Dr. Chaudhry Attending Provider [phone] Allergies Allergy Classification Reported Allergen(s) Allergy Type Date of Onset Reaction(s) Facility (2 sources) cat dander extract; Translations: [CAT DANDER] allergy to substance 7 [facility] Work Phone: (2 sources) egg; Translations: [EGGS] food allergy 7 [facility] Work Phone: (20 sources) egg extract; Translations: [EGG] Drug Allergy 6 Hives, Shortness of Breath [facility] (1 source) egg extract Drug Allergy 5 [facility] Medications Current Medications Medication Drug Class(es) Dates Sig (Normalized) Sig (Original) acetaminophen 500 mg oral tablet (8 sources) Start: 12-31-2024 take 2 tablets by mouth twice daily Acetaminophen 500 mg Tablet Active 1000 mg PO TWICE A DAY December 31, 2024 12:00am pain Start: 09-27-2024 End: 12-31-2024 take 2 tablets by mouth every eight hours Acetaminophen 500 mg Tablet Discontinued 1000 mg PO EVERY 8 HOURS 0 0 September 27, 2024 12:00am December 31, 2024 3:07pm pain Start: 03-11-2024 End: 10-22-2024 take 2 tablets by mouth every six hours as needed for pain Acetaminophen 500 mg Tablet Discontinued 1000 mg PO EVERY 6 HOURS NEEDED as needed for Pain Score 1-10 0 0 March 11, 2024 1:00am October 22, 2024 4:57pm On Hold: Until restarted acetaminophen 325 mg / HYDROcodone bitartrate 5 mg oral tablet (4 sources) Opioid Agonist Start: 11-28-2024 End: 12-06-2024 take 1 tablet by mouth every six hours as needed for pain HYDROcodone-acetaminophen (NORCO) 5-325 mg per tablet Indications: Fall, sequela Take 1 tablet by mouth every 6 hours as needed for pain for up to 8 days. 30 tablet 11/28/2024 12/06/2024 Active aspirin 81 mg chewable tablet (3 sources) Platelet Aggregation Inhibitor, Nonsteroidal Anti-inflammator y Drug Start: 09-27-2024 take 1 tablet by mouth once daily at mealtime Aspirin 81 mg Tablet,Chewable Active 81 mg PO DAILY WITH MEALS 0 September 27, 2024 12:00am Heart health atorvastatin 40 mg oral tablet (3 sources) HMG-CoA Reductase Inhibitor Start: 09-27-2024 take 1 tablet by mouth at bedtime Atorvastatin 40 mg Tablet Active 40 mg PO AT BEDTIME 0 September 27, 2024 12:00am cholestrol cyanocobalamin, vitamin B-12, (VITAMIN B-12 ORAL) (20 sources) Start: 11-10-2016 cyanocobalamin, vitamin B-12, (VITAMIN B-12 ORAL) B-12 CAPS 11/10/2016 Suspended Start: 11-10-2016 cyanocobalamin , vitamin B-12, (VITAMIN B-12 ORAL) B-12 CAPS 11/10/2016 Active Start: 11-10-2016 cyanocobalamin , vitamin B-12, (VITAMIN B-12 ORAL) B-12 CAPS 0 11/10/2016 Active docusate sodium 50 mg / sennosides, longterm 8.6 mg oral tablet (6 sources) Start: 09-27-2024 End: 10-22-2024 Sennosides-Docusate Sodium (Stimulant Laxative Plus) 8.6-50 mg Tablet Active 1 {tbl} PO TWICE A DAY 1 0 October 22, 2024 12:00am ergocalciferol 1.25 mg oral capsule (3 sources) Provitamin D2 Compound Start: 09-27-2024 Ergocalciferol (Layne min D2) (Vitamin D2) 1,250 mcg (50,000 unit) Capsule Active 1250 ug PO Q7D@1000 0 September 27, 2024 12:00am supplement ferrous sulfate (6 sources) ferrous sulfate (IRON ORAL) Take by mouth. Active ferrous sulfate (IRON ORAL) Take by mouth. 0 Active Food Supplemt, Lactose-Reduc ed (Ensure Plus High Protein) 0.08 gram-1.5 kcal/mL Liquid (3 sources) Start: 09-27-2024 Food Supplemt, Lactose-Reduced (Ensure Plus High Protein) 0.08 gram-1.5 kcal/mL Liquid Active 120 mL PO 4 TIMES DAILY 0 September 27, 2024 12:00am supplement Start: 09-27-2024 Food Supplemt, Lactose-Reduced (Ensure Plus High Protein) 0.08 gram-1.5 kcal/mL Liquid Active 120 mL PO 4 TIMES DAILY 0 September 27, 2024 12:00am axni-SY-ysr-zjz-PJO-EMNQ-be- mv 1.5 mg iron- 8.73 mg CpID (6 sources) orql-YB-glb-epa- LDD-IFQQ-te-mv 1.5 mg iron- 8.73 mg CpID Take by mouth. Active dcnn-RD-wpd-epa- IXI-TJIX-mv-mv 1.5 mg iron- 8.73 mg CpID Take by mouth. 0 Active lisinopril 5 mg oral tablet (20 sources) Angiotensin Converting Enzyme Inhibitor Start: 12-31-2024 take 1 tablet by mouth once daily Lisinopril 5 mg tablet Active 5 mg PO DAILY December 31, 2024 12:00am Start: 09-27-2024 End: 12-31-2024 take 1 tablet by mouth once daily Lisinopril 10 mg Tablet Discontinued 10 mg PO DAILY 0 September 27, 2024 12:00am December 31, 2024 2:39pm BP Start: 01-22-2024 End: 09-25-2024 take 1 tablet by mouth once daily Lisinopril 10 mg tablet Discontinued 10 mg PO DAILY March 05, 2024 12:00am September 25, 2024 12:52am Blood pressure Start: 01-22-2024 End: 01-22-2024 take 4 tablets by mouth once daily, then take 0.5 tablet by mouth once daily lisinopril 2.5 mg tablet Take 4 tablets by mouth once daily. Pt take .5 tablets once daily 30 tablet 3 01/22/2024 01/22/2024 Discontinued (Course of therapy completed) Start: 11-10-2016 LISINOPRIL TAB S take as directed LISINOPRIL TABS [id number] Chery Whitley LPN Start: 01-03-2016 End: 03-11-2024 take 1 tablet by mouth once daily Lisinopril 5 MG tablet Discontinued 5 mg PO DAILY 30 0 January 03, 2016 12:00am March 11, 2024 6:19pm End: 01-22-2024 take 0.5 tablet by mouth once daily lisinopril 2.5 mg tablet Take 5 mg by mouth once daily. Pt take .5 tablets once daily 01/22/2024 Discontinued melatonin 3 mg oral tablet (6 sources) Start: 10-22-2024 take 1 tablet by mouth at bedtime Melatonin 3 mg Tablet Active 3 mg PO AT BEDTIME 1 0 October 22, 2024 12:00am Start: 09-27-2024 End: 10-22-2024 take 1 tablet by mouth at bedtime Melatonin 10 mg Tablet, Sublingual Discontinued 10 mg PO AT BEDTIME 0 September 27, 2024 12:00am October 22, 2024 4:59pm sleep Menthol / Zinc Oxide (3 sources) Start: 10-22-2024 Menthol-Zinc O xide (Calmoseptine) 0.44-20.6 % Ointment Active 1 NMA TOPICAL 0600,2200 1 0 October 22, 2024 12:00am Please contact the information source for Protocol details. Start: 10-22-2024 Menthol-Zinc O xide (Calmoseptine) 0.44-20.6 % Ointment Active 1 NMA TOPICAL 0600,2200 1 October 22, 2024 12:00am Please contact the information source for Protocol details. metoprolol tartrate 25 mg oral tablet (10 sources) beta-Adrenergic Tj Start: 09-27-2024 End: 12-02-2024 take 1 tablet by mouth twice daily Metoprolol Tartrate 25 mg Tablet Active 25 mg PO TWICE A DAY 1 0 October 22, 2024 12:00am nystatin 100 unt/mg topical powder (3 sources) Polyene Antifungal Start: 10-22-2024 Nystatin 10 0,000 unit/gram Powder Active 1 NMA TOPICAL 0600,2200 1 0 October 22, 2024 12:00am Please contact the information source for Protocol details. omeprazole 20 mg delayed release oral capsule (20 sources) Proton Pump Inhibitor Start: 11-10-2016 [facility] OMEP RAZOLE TBEC take as directed OMEPRAZOLE TBEC [id number] Chery Whitley LPN Start: 01-02-2016 take 2 capsules by m outh once daily Omeprazole 20 MG capsule Active 40 mg PO DAILY January 02, 2016 12:00am GERD Start: 01-02-2016 take 1 capsule by mo [...] 0 Active QUEtiapine 25 mg oral tablet (3 sources) Atypical Antipsychotic Start: 10-22-2024 Quetiapine 25 mg Tablet Active 50 mg PO 2100 1 0 October 22, 2024 12:00am tamsulosin hydrochloride 0.4 mg oral capsule (20 sources) alpha-Adrenergic Tj Start: 09-25-2023 End: 09-02-2024 take 1 capsule by mouth once daily Tamsulosin 0.4 mg capsule Active 0.4 mg PO DAILY March 05, 2024 12:00am Bladder traMADol hydrochloride 50 mg oral tablet (3 sources) Opioid Agonist Start: 10-22-2024 Tramadol 50 mg Tablet Active 25 mg PO EVERY 6 HOURS NEEDED as needed for Pain 4-10 20 7 0 October 22, 2024 12:00am vitamin B 12 (6 sources) Vitamin B12 Start: 03-05-2024 take 1 tablet by mouth once daily Cyanocobalamin (Vitamin B-12) (Vitamin B-12) 500 mcg tablet Active 500 ug PO DAILY March 05, 2024 12:00am Supplement Start: 03-05-2024 take 1 tablet by aubrey th once daily Cyanocobalamin (Vitamin B-12) (Vitamin B-12) 500 mcg tablet Active 500 ug PO DAILY March 05, 2024 12:00am Start: 11-10-2016 B-12 CAPS take as directed CYANOCOBALAMIN CAPS [id number] Chery Whitley LPN Completed/Discontinued Medications Medication Drug Class(es) Dates Sig (Normalized) Sig (Original) ciprofloxacin 500 mg oral tablet (1 source) Quinolone Antimicrobial Start: 02-24-2024 End: 02-29-2024 take 1 tablet by mouth twice daily ciprofloxacin HCl (CIPRO) 500 mg tablet Take 1 tablet by mouth two times a day for 5 days. 10 tablet 02/24/2024 02/29/2024 Suspended clopidogrel 75 mg oral tablet (3 sources) P2Y12 Platelet Inhibitor Start: 09-27-2024 End: 10-22-2024 take 1 tablet by mouth once daily Clopidogrel 75 mg Tablet Discontinued 75 mg PO DAILY 0 0 September 27, 2024 12:00am October 22, 2024 4:57pm Anti platelets heparin sodium, porcine 5000 unt/ml injectable solution (3 sources) Unfractionated Heparin, Anti-coagulant Start: 09-27-2024 End: 10-22-2024 Heparin (Porcine) 5,000 unit/mL Solution Discontinued 5000 U SC EVERY 12 HOURS 0 0 September 27, 2024 12:00am October 22, 2024 4:58pm blood thinner levETIRAcetam 500 mg oral tablet (11 sources) Start: 03-01-2024 End: 09-02-2024 take 1 tablet by mouth twice daily Levetiracetam 500 mg tablet Discontinued 500 mg PO TWICE A DAY March 05, 2024 12:00am March 11, 2024 6:19pm Seizures meclizine hydrochloride 25 mg oral tablet (11 sources) Antiemetic Start: 02-24-2024 End: 10-22-2024 take [...] OMEPRAZOLE TBEC take as directed OMEPRAZOLE TBEC [id number] Chery 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 N ot on any inhalers at the time of admission for stroke September 2024 Delirium, dementia, and amnestic and other cognitive disorders (14 sources) Dementia with behavioral disturbance; Translations: [Dementia with behavioral disturbance] Onset: 5 10-22-2024 Chronic Diseases of white blood cells (20 sources) Leukocytosis; Translations: [Elevated white blood cell count, unspecified] Onset: 4 02-26-2024 Chronic Disorders of lipid metabolism (7 sources) Dyslipidemia; Translations: [Hyperlipidemia, unspecified] Onset: 5 09-28-2024 Chronic E Codes: Fall (15 sources) Fall; Translations: [Unspecified fall, initial encounter] Onset: 5 09-24-2024 Episodic Epilepsy; convulsions (9 sources) Seizure disorder; Translations: [Epilepsy, unspecified, not intractable, without status epilepticus] Onset: 4 03-05-2024 Chronic Comment on above: Not on an antiepilep tic? Esophageal disorders (20 sources) Gastroesophageal reflux disease; Translations: [Gastro-esophageal reflux disease without esophagitis] Onset: 8 07-24-2017 Chronic Essential hypertension (20 sources) Hypertensive disorder; Translations: [Essential hypertension] Onset: 8 11-10-2016 Chronic Fever of unknown origin (7 sources) Fever; Translations: [Fever, unspecified] Onset: 5 10-22-2024 Episodic Comment on above: Infectious W/U negat kev. Fluid and electrolyte disorders (4 sources) Dehydration; Translations: [Dehydration] 03-19-2024 Episodic Genitourinary symptoms and ill-defined conditions (17 sources) Urge incontinence of urine; Translations: [Dribbling of urine] Onset: 4 09-19-2024 Chronic Genitourinary symptoms and ill-defined conditions (20 sources) Lthgq-qp-mibjeno retention of urine; Translations: [Retention of urine, unspecified] Onset: 4 02-26-2024 Episodic Comment on above: minimal....this is n ew. May even be due to the straight catheterization. Heart valve disorders (20 sources) Aortic stenosis, non-rheumatic ; Translations: [Nonrheumatic aortic (valve) stenosis] Onset: 4 01-22-2024 Chronic Heart valve disorders (2 sources) Systolic murmur at apex of heart; Translations: [Cardiac murmur, unspecified] Onset: 4 10-10-2023 Episodic Hyperplasia of prostate (20 sources) Benign prostatic hyperplasia; Translations: [Benign prostatic hyperplasia without lower urinary tract symptoms] Onset: 4 11-10-2023 Chronic Inflammation; infection of eye (except that caused by tuberculosis or sexually transmitteddisease) (7 sources) Conjunctivitis; Translations: [Unspecified conjunctivitis] Onset: 5 10-22-2024 Episodic Malaise and fatigue (20 sources) Asthenia; Translations: [Weakness] Onset: 4 02-22-2024 Episodic Mood disorders (3 sources) Depressive disorder; Translations: [Depression] 10-23-2024 Chronic Mood disorders (1 source) Mood disorders; Translations: [Depression, unspecified] Onset: Nutritional deficiencies (7 sources) Vitamin D deficiency; Translations: [Vitamin D deficiency, unspecified] Onset: 5 09-28-2024 Chronic Open wounds of head; neck; and trunk (3 sources) Laceration of forehead; Translations: [Laceration without foreign body of other part of head, initial encounter] Onset: 5 11-02-2024 Episodic Other connective tissue disease (6 sources) Monoparesis - leg; Translations: [Other symptoms and signs involving the musculoskeletal system] 09-28-2024 Episodic Other connective tissue disease (6 sources) Weakness of face muscles; Translations: [Facial weakness] 09-28-2024 Episodic Other connective tissue disease (1 source) Recurrent falls ; Translations: [Repeated falls] 11-11-2024 Episodic Other connective tissue disease (1 source) Other symptoms and signs involving the musculoskeletal system; Translations: [Other symptoms and signs involving the musculoskeletal system] Onset: Episodic Other connective tissue disease (1 source) Facial weakness; Translations: [Facial weakness] Onset: Episodic Other ear and sense organ disorders (6 sources) Presbycusis; Translations: [Presbycusis, unspecified ear] 09-28-2024 Episodic Other ear and sense organ disorders (1 source) Presbycusis, bilateral; Translations: [Presbycusis, bilateral] Onset: Episodic Other fractures (9 sources) Fracture of inferior pubic ramus; Translations: [Other specified fracture of unspecified pubis, initial encounter for closed fracture] 09-25-2024 Episodic Other fractures (1 source) Other specified fracture of left pubis, initial encounter for closed fracture; Translations: [Other specified fracture of left pubis, initial encounter for closed fracture] Onset: Episodic Other gastrointestinal disorders (6 sources) Occult blood in stools; Translations: [Other fecal abnormalities] 10-22-2024 Episodic Other gastrointestinal disorders (6 sources) Oropharyngeal dysphagia; Translations: [Dysphagia, oropharyngeal phase] 10-22-2024 Episodic Other gastrointestinal disorders (1 source) Swallowing finding; Translations: [Dysphagia, unspecified] 11-11-2024 Episodic Other gastrointestinal disorders (1 source) Dysphagia, oropharyngeal phase; Translations: [Dysphagia, oropharyngeal phase] Onset: Episodic Other gastrointestinal disorders (1 source) Other fecal abnormalities; Translations: [Other fecal abnormalities] Onset: 5 Episodic Other injuries and conditions due to external causes (20 sources) Foreign body in esophagus; Translations: [Unspecified foreign body in esophagus causing other injury, initial encounter] Onset: 4 Resolved: 8 07-24-2017 Episodic Other injuries and conditions due to external causes (6 sources) Aspiration into trachea; Translations: [Unspecified foreign body in trachea causing other injury, initial encounter] 10-22-2024 Episodic Other injuries and conditions due to external causes (2 sources) Closed injury of head; Translations: [Unspecified injury of head, initial encounter] 11-02-2024 Episodic Other injuries and conditions due to external causes (1 source) Unspecified foreign body in trachea causing other injury, initial encounter; Translations: [Unspecified foreign body in trachea causing other injury, initial encounter] Onset: Episodic Other lower respiratory disease (6 sources) Productive cough ; Translations: [Productive cough] 09-28-2024 Episodic Other nervous system disorders (18 sources) Metabolic encephalopathy; Translations: [Metabolic encephalopathy] Onset: 4 02-27-2024 Chronic Other nervous system disorders (5 sources) Unable to walk; Translations: [Difficulty in walking, not elsewhere classified] 09-24-2024 Chronic Other nervous system disorders (4 sources) Disorder of brain; Translations: [Encephalopathy, unspecified] 03-19-2024 Chronic Other nervous system disorders (1 source) Walking disability; Translations: [Difficulty in walking, not elsewhere classified] 11-11-2024 Chronic Other nervous system disorders (1 source) Difficulty in walking, not elsewhere classified; Translations: [Difficulty in walking, not elsewhere classified] Onset: Chronic Other nervous system disorders (1 source) Abnormal gait; Translations: [Unsteadiness on feet] 02-22-2024 Episodic Other nervous system disorders (1 source) Bradykinesia; Translations: [Other abnormal involuntary movements] 09-02-2024 Episodic Other nervous system disorders (6 sources) Paresthesia; Translations: [Paresthesia of skin] 09-28-2024 Episodic Comment on above: Left hand and leg du e to R MCA ISCHEMIC CVA Other nervous system disorders (1 source) Other abnormal involuntary movements; Translations: [Bradykinesia] Onset: Episodic Other nervous system disorders (1 source) Paresthesia of skin; Translations: [Paresthesia of skin] Onset: 5 Episodic Other nutritional; endocrine; and metabolic disorders (6 sources) Hypophosphatemia; Translations: [Other disorders of phosphorus metabolism] 09-28-2024 Chronic Other nutritional; endocrine; and metabolic disorders (1 source) Other disorders of phosphorus metabolism; Translations: [Other disorders of phosphorus metabolism] Onset: 5 Chronic Other screening for suspected conditions (not mental disorders or infectious disease) (9 sources) Patient encounter status; Translations: [Encounter for [...] behavior disorder] 09-02-2024 Chronic Residual codes; unclassified (6 sources) Sleep related hypoxemia; Translations: [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 classified elsewhere] 10-22-2024 Chronic Residual codes; unclassified (1 source) REM sleep behavior disorder; 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)] Onset: 5 Chronic Residual codes; unclassified (1 source) 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 classified elsewhere; Translations: [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 classified elsewhere] Onset: 5 Chronic Residual codes; unclassified (1 source) Hallucinations; Translations: [Hallucinations, unspecified] 09-02-2024 Episodic Residual codes; unclassified (1 source) Amnesia; Translations: [Other amnesia] 09-02-2024 Episodic Residual codes; unclassified (6 sources) Pain; Translations: [Pain, unspecified] 09-28-2024 Episodic Residual codes; unclassified (6 sources) Past history of procedure; Translations: [Other specified postprocedural states] 10-22-2024 Episodic Residual codes; unclassified (1 source) Hallucinations, unspecified; Translations: [Hallucination] Onset: 5 Episodic Residual codes; unclassified (1 source) Other amnesia; Translations: [Memory loss] Onset: 5 Episodic Residual codes; unclassified (1 source) Pain, unspecified; Translations: [Pain, unspecified] Onset: 5 Episodic Residual codes; unclassified (1 source) Other specified postprocedural states; Translations: [Other specified postprocedural states] Onset: 5 Episodic Respiratory failure; insufficiency; arrest (adult) (2 sources) Acute respiratory failure; Translations: [Acute respiratory failure with hypoxia] 12-31-2024 Episodic Spondylosis; intervertebral disc disorders; other back problems (1 source) Low back pain; Translations: [Bilateral low back pain without sciatica, unspecified chronicity] 11-28-2024 Episodic Substance-related disorders (3 sources) Tobacco dependence in remission; Translations: [Nicotine dependence, unspecified, in remission] 09-28-2024 Chronic Comment on above: quit in the Superficial injury; contusion (12 sources) Contusion of hip; Translations: [Contusion of left hip, initial encounter] Onset: 5 09-24-2024 Episodic Unclassified (3 sources) After discharge from rehab Unclassified (1 source) Other specified cough; Translations: [Other specified cough] Onset: 5 Unclassified (1 source) Unspecified dementia, unspecified severity, with other behavioral disturbance; Translations: [Unspecified dementia, unspecified severity, with other behavioral disturbance] Onset: 5 Unclassified (1 source) Eosinophilia, unspecified; Translations: [Eosinophilia, unspecified] Onset: 5 Urinary tract infections (20 sources) Urinary tract infection, site not specified; Translations: [Acute cystitis] Onset: 4 02-26-2024 Episodic Past or Other Problems Problem Classification Problem Date Documented Da te Episodic/Chronic Abdominal hernia (20 sources) Right inguinal hernia ; Translations: [Unilateral inguinal hernia, without obstruction or gangrene, not specified as recurrent] Onset: 07-19-2017 10-10-2023 Episodic Conditions associated with dizziness or vertigo (20 sources) Dizziness; Translations: [Dizziness and giddiness] Onset: 11-10-2016 11-10-2016 Episodic Other connective tissue disease (17 sources) Neurological symptom; Translations: [Unspecified symptoms and signs involving the nervous system] Onset: 03-04-2024 03-04-2024 Episodic Residual codes; unclassified (19 sources) Delirium; Translations: [Disorientation, unspecified] Onset: 02-26-2024 02-26-2024 Episodic Residual codes; unclassified (2 sources) Disorientation, unspecified; Translations: [Acute delirium] Onset: 02-26-2024 Episodic Screening and history of mental health and substance abuse codes (20 sources) Ex-smoker; Translations: [Personal history of nicotine dependence] Onset: 11-10-2023 11-10-2023 Episodic Results Test Name Value Interpretation Reference Range Facility Absolute lymphocyte countOrd ered By: Gerardo Duque on 12-31-2024 Lymphocytes Auto (Unsp spec) [#/Vol] 1.05 10*3/uL 0.83-4.51 [facility] Absolute neutrophil countOrd ered By: Gerardo Duque on 12-31-2024 Neutrophils (Bld) [#/Vol] 3.7 10*3/uL 2.0-7.7 [facility] Activated partial thrombopla stin time (aPTT) in platelet poor plasma by coagulation aOrdered By: Gerardo Duque on 12-31-2024 aPTT Coag (PPP) [Time] 30.0 s 24.1-36.2 [facility] Anion gap in Serum or Plasma Ordered By: Gerardo Duque on 12-31-2024 Anion gap [Moles/Vol] 14 mmol/L 5-15 [facility] Automated lymphocyte count a s percentage of total leukocytesOrdered By: Gerardo Duque on 12-31-2024 Lymphocytes/100 WBC Auto (Unsp spec) 20.1 % 19-41 [facility] BUN/creatinine ratioOrdered By: Gerardo Duque on 12-31-2024 Urea nitrogen/Creatinine [Mass ratio] 20.4 mg/mg High 10-20 [facility] Basophil percentageOrdered B y: Gerardo Duque on 12-31-2024 Basophils/100 WBC (Bld) 0.6 % 0-1 [facility] Bilirubin, totalOrdered By: Gerardo Duque on 12-31-2024 Bilirubin [Mass/Vol] 0.48 mg/dL 0.00-1.30 [facility] Blood base excess determinat ionOrdered By: Gerardo Duque on 12-31-2024 Base excess Calc (BldV) [Moles/Vol] 4 mmol/L High -2-2 [facility] Blood bicarbonate measuremen tOrdered By: Gerardo Duque on 12-31-2024 HCO3 (Bld) [Moles/Vol] 28.4 mmol/L High 22-26 [facility] Carbon dioxide, total [Moles /volume] in Central venous bloodOrdered By: Gerardo Duque on 12-31-2024 CO2 [Moles/Vol] 23.2 mmol/L 21.0-32.0 [facility] Chloride assayOrdered By: Arvind Duque on 12-31-2024 Chloride [Moles/Vol] 108 mmol/L 98-108 [facility] Eosinophil percentageOrdered By: Gerardo Duque on 12-31-2024 Eosinophils/100 WBC (Bld) 2.5 % 0-5 [facility] Erythrocyte distribution wid th ratioOrdered By: Gerardo Duque on 12-31-2024 Erythrocyte distribution width (RBC) [Ratio] 14.5 % 11.6-14.6 [facility] Erythrocyte distribution wid th standard deviationOrdered By: Gerardo Duque on 12-31-2024 Erythrocyte distribution width (RBC) [Ratio] 48.4 fl High 35.1-43.9 [facility] Glomerular filtration rate ( GFR) estimation/1.73 sq m using serum, plasma, or whole bOrdered By: Gerardo Duque on 12-31-2024 GFR/1.73 sq M.predicted among non-blacks MDRD (S/P/Bld) [Vol rate/Area] 59 mL/min/{1.73_m2} Low >60 [facility] Comment on above: mL/min/1.73m2 CKD-EP I Creatinine Equation (2020) Hematocrit Auto (Bld) [Volum e fraction]Ordered By: Gerardo Duque on 12-31-2024 Hematocrit (Bld) [Volume fraction] 37.6 % Low 40-54 [facility] Hemoglobin measurementOrdere d By: Gerardo Duque on 12-31-2024 Hemoglobin (Bld) [Mass/Vol] 12.1 g/dL Low 13.0-16.5 [facility] Immature granulocytes/100 WB C Auto (Bld)Ordered By: Gerardo Duque on 12-31-2024 Immature granulocytes/100 WBC (Bld) 0.600 % 0.0-0.9 [facility] Comment on above: IG% - Immature Granu locytes (promyelocytes, myelocytes and metamyelocytes) > 1% indicates that a LEFT SHIFT is Present. Influenza virus A and B and SARS-CoV-2 (COVID-19) and Respiratory syncytial virus RNAOrdered By: Gerardo Duque on 12-31-2024 SARS-CoV-2 (COVID-19) RNA FRANCI+probe Ql (Unsp spec) [facility] International normalized rat io (INR) calculationOrdered By: Gerardo Duque on 12-31-2024 INR Coag (Bld) [Relative time] 1.1 {INR} [facility] Laboratory - Chemistry and C hemistry - challengeOrdered By: Gerardo Duque on 12-31-2024 AST [Catalytic activity/Vol] 17 U/L <38 [facility] Lactic acid measurementOrder ed By: Gerardo Duque on 12-31-2024 Lactate [Moles/Vol] 3.8 mmol/L High 0.0-2.0 [facility] Comment on above: Critical Result(s) C alled ETEAL at: 1540 by: FEDER[place] Results read back by same. MCV (mean corpuscular volume ) determinationOrdered By: Gerardo Duque on 12-31-2024 MCV (RBC) [Entitic vol] 90.8 fL 80-94 [facility] Mean corpuscular hemoglobin (MCH) determinationOrdered By: Gerardo Duque on 12-31-2024 MCH (RBC) [Entitic mass] 29.2 pg 27.0-32.0 [facility] Mean corpuscular hemoglobin concentration (MCHC) determinationOrdered By: Gerardo Duque on 12-31-2024 MCHC (RBC) [Mass/Vol] 32.2 g/dL 32-36 [facility] Mean platelet volume determi nationOrdered By: Gerardo Duque on 12-31-2024 Platelet mean volume (Bld) [Entitic vol] 11.0 fL 6.2-12.0 [facility] Measurement, pHOrdered By: Misti eugenejed Duque on 12-31-2024 pH (Unsp spec) 7.41 [pH] 7.35-7.45 [facility] Monocyte percentageOrdered B y: Gerardo Duque on 12-31-2024 Monocytes/100 WBC (Bld) 5.4 % 0-10 [facility] Neutrophil percentageOrdered By: Gerardo Duque on 12-31-2024 Neutrophils/100 WBC (Bld) 70.8 % High 47-70 [facility] No Panel InformationOrdered By: Gerardo Duque on 12-31-2024 Blood Gas Sample Site R Radial [facility] Blood Gas Specimen Type ART [facility] Blood Gas Vent Mode Not entered [facility] Oxygen Delivery Device HFNC [facility] Nucleated red blood cell per centageOrdered By: Gerardo Duque on 12-31-2024 Nucleated RBC/100 WBC (Bld) [Ratio] 0 % 0-5 [facility] Platelet countOrdered By: Arvind Duque on 12-31-2024 Platelets (Bld) [#/Vol] 224 10*3/uL 150-450 [facility] Potassium measurement (mass/ volume)Ordered By: Gerardo Duque on 12-31-2024 Potassium (Unsp spec) [Mass/Vol] 3.7 mmol/L 3.3-5.1 [facility] Prothrombin timeOrdered By: Gerardo Duque on 12-31-2024 PT Coag (PPP) [Time] 14.9 s 11.7-14.9 [facility] RBC Auto (Bld) [#/Vol]Ordere d By: Gerardo Duque on 12-31-2024 RBC (Bld) [#/Vol] 4.14 10*6/uL Low 4.6-6.2 [facility] Serum creatinine measurement (mass/volume)Ordered By: Gerardo Duque on 12-31-2024 Creatinine [Mass/Vol] 1.19 mg/dL 0.70-1.20 [facility] Serum globulin measurementOr dered By: Gerardo Duque on 12-31-2024 Globulin (S) [Mass/Vol] 2.6 g/dL 2.2-4.2 [facility] Serum glucose measurement (m ass/volume)Ordered By: Gerardo Duque on 12-31-2024 Glucose [Mass/Vol] 267 mg/dL High 70-99 [facility] Serum or plasma alanine orozco otransferase (ALT) measurementOrdered By: Gerardo Duque on 12-31-2024 ALT [Catalytic activity/Vol] 10 U/L <47 [facility] Serum or plasma albumin patrick urement (mass/volume)Ordered By: Gerardo Duque on 12-31-2024 Albumin [Mass/Vol] 3.1 g/dL Low 3.4-4.8 [facility] Serum or plasma albumin/glob ulin mass ratioOrdered By: Gerardo Duque on 12-31-2024 Albumin/Globulin [Mass ratio] 1.2 {ratio} 0.9-2.4 [facility] Serum or plasma alkaline mei sphatase measurementOrdered By: Gerardo Duque on 12-31-2024 ALP [Catalytic activity/Vol] 93 U/L 40-129 [facility] Serum or plasma calcium patrick urement (mass/volume)Ordered By: Gerardo Duque on 12-31-2024 Calcium [Mass/Vol] 8.7 mg/dL 7.6-11.0 [facility] Serum or plasma urea nitroge n measurement (mass/volume)Ordered By: Gerardo Duque on 12-31-2024 Urea nitrogen [Mass/Vol] 24 mg/dL High 4-19 [facility] Sodium levelOrdered By: Gerardo Duque on 12-31-2024 Sodium [Moles/Vol] 146 mmol/L High 133-145 [facility] Total carbon dioxide measure mentOrdered By: Gerardo Duque on 12-31-2024 CO2 [Moles/Vol] 30 mmol/L [facility] Total proteinOrdered By: Jeremias Duque on 12-31-2024 Protein [Mass/Vol] 5.7 g/dL Low 5.9-8.4 [facility] Troponin T.cardiac [Mass/vol ume] in Serum or Plasma by High sensitivity methodOrdered By: Gerardo Duque on 12-31-2024 Troponin T.cardiac High sensitivity method [Mass/Vol] 31 ng/L High <22 [facility] White blood cell (WBC) count Ordered By: Gerardo Duque on 12-31-2024 WBC (Bld) [#/Vol] 5.2 10*3/uL 4.4-11.0 [facility] 11-12-2024 CNPN Telephone (INTMWS) -- AYESHA JACOBSEN ([id number]) 1935 M Date Time Provider Department 11/12/24 NIMISHA OSEGUERA INTMWS During your visit today, we recorded the following information about you: Nithya Sena LPN 11/12/2024 11:08 AM Signed Марина from [facility] Home Health calling received home health orders, requesting copy of last office notes faxed to [phone]. Printed May visit and faxed as requested. Марина said patient is currently at [facility] as self pay, constantly falling. He was in the ER on 11/02/2024. Allergies As of Date: 11/12/2024 Noted Allergy Reaction EGGS (EGG) 12/14/2015 4 - Hives 12 - Shortness of Breath Date Reviewed: 09/19/2024 Reviewed by: Gunnar Small MA - Fully Assessed Reason for Visit: [facility] Home Health requesting records [Other] Prescriptions as of 11/12/2024 - tamsulosin (FLOMAX) 0.4 mg Take 1 capsule by mouth every afternoon. - omeprazole (PRILOSEC) 20 mg capsule Take 1 capsule by mouth daily before breakfast. 1/2 hr before meal. - cyanocobalamin, vitamin B-12, (VITAMIN B-12 ORAL) B-12 CAPS - OMEPRAZOLE (PRILOSEC ORAL) Take 20 mg by mouth daily at 6 am. Problem List As Of Date 11/12/2024 Noted Resolved Esophageal foreign body [T18.108A] 07/25/2013 [...] Stroke-like symptoms [R29.90] 03/04/2024 Encounter Status:Closed by NITHYA SENA on 11/12/24 [facility] Elvis 11-06-2024 CNPN Telephone (INTFavista Real EstateWS) -- AYESHA JACOBSEN ([id number]) 1935 M Date Time Provider Department 11/06/24 NIMISHA OSEGUERA INTMWS During your visit today, we recorded the following information about you: Maria Del Rosario Leiva, RN 11/06/2024 2:29 PM Signed Nicole- nurse manager case- [employer]- reports patient is in need of HHC services at home: SN PT OT [facility]CAide. Nicole already consulted with SW. Asking if pcp can send order to one of these 3 [facility] companys in network. 1) [facility] (4.2 miles from pt's home). # [phone] 2) [facility] (4.9 miles from pt's home). # [phone] 3) [facility] (19.8 miles from pt, located in [facility]). Reports pt was in the hospital on 09/28/24, discharged on 10/23/24 to [facility] [place]. Insurance wouldn't cover this so patient was paying out of pocket and pt kept having falls, so family took him home. Reports pt needs 28/11 care. Nimisha Oseguera MD 11/11/2024 1:39 PM Signed Please fax consult to these 3 centers as requested. RegardsNimisha MD, Brittany L, MA 11/12/2024 9:22 AM Signed No fax number listed [facility]. Faxed referral to [facility] [phone] and [facility] [phone]. Gunnar Small MA Allergies As of Date: 11/06/2024 Noted Allergy Reaction EGGS (EGG) 12/14/2015 4 - Hives 12 - Shortness of Breath Date Reviewed: 09/19/2024 Reviewed by: Gunnar Small MA - Fully Assessed Reason for Visit: Need for C order [Other] Primary Visit Diagnosis:Falls [R29.6] Other Visit Diagnoses:Cerebrovascular accident (CVA), unspecified mechanism (HCC) [I63.9] Dementia without behavioral disturbance, psychotic disturbance, mood disturbance, or anxiety, unspecified dementia severity, unspecified dementia type (HCC) [F03.90] Swallowing dysfunction [R13.10] Primary hypertension [I10] Ambulatory dysfunction [R26.2] Benign prostatic hyperplasia with urinary retention [N40.1, R33.8] Order(s):CONSULT TO NON-[facility] FACILITY [[id number]] Order #: [id number] Prescriptions as of 11/12/2024 - tamsulosin (FLOMAX) 0.4 mg Take 1 capsule by mouth every afternoon. - omeprazole (PRILOSEC) 20 mg capsule Take 1 capsule by mouth daily before breakfast. 1/2 hr before meal. - cyanocobalamin, vitamin B-12, (VITAMIN B-12 ORAL) B-12 CAPS - OMEPRAZOLE (PRILOSEC ORAL) Take 20 mg by mouth daily at 6 am. Problem List As Of Date 11/06/2024 Noted Resolved Esophageal foreign body [T18.108A] 07/25/2013 [...] Stroke-like symptoms [R29.90] 03/04/2024 Encounter Status:Closed by GUNNAR SMALL on 11/12/24 Normal [facility] Brain/Head without Contrasto n 11-02-2024 Brain/Head without Contrast Normal [facility] Emergency Department Summary on 11-02-2024 Emergency Department Summary Normal [facility] Ribs Uni Min 3V w/PA Cheston 11-02-2024 Ribs Uni Min 3V w/PA Chest Normal [facility] Spine Cervical without Contr ason 11-02-2024 Spine Cervical without Contras Normal [facility] Electrocardiogram reportOrde red By: Matthew Chavarria on 10-23-[address] [facility] [address] [place] [address] 12 Lead EKG 10/22/24 1729 MR#: [id number] Acct: [id number] Name: AYESHA JACOBSEN Rep #:[id number] : 1935 89 From: Matthew Chavarria MD [...] No significant change was found Confirmed by DEON RAYMOND, MATTHEW ([id number]), videotape editor KERON HUERTA ([id number]) on 512:47:06 PM Referred By: Shay Gaxiola Confirmed By: MATTHEW CHAVARRIA MD 10/23/24 1247 Date _ Matthew Chavarria MD CC: Dr. Nimisha Oseguera MD; Dr. Shay Gaxiola, DO ~ Signed [facility] Other Phone: 12 Lead EKGon 10-22-2024 12 Lead EKG Normal [facility] Absolute lymphocyte countOrd ered By: Shay Gaxiola on 10-16-2024 Lymphocytes Auto (Unsp spec) [#/Vol] 1.91 10*3/uL 0.83-4.51 [facility] Absolute neutrophil countOrd ered By: Shay Gaxiola on 10-16-2024 Neutrophils (Bld) [#/Vol] 5.3 10*3/uL 2.0-7.7 [facility] Anion gap in Serum or Plasma Ordered By: Shay Gaxiola on 10-16-2024 Anion gap [Moles/Vol] 9 mmol/L 5-15 [facility] Automated lymphocyte count a s percentage of total leukocytesOrdered By: Shay Gaxiola on 10-16-2024 Lymphocytes/100 WBC Auto (Unsp spec) 20.0 % 19-41 [facility] BUN/creatinine ratioOrdered By: Shay Gaxiola on 10-16-2024 Urea nitrogen/Creatinine [Mass ratio] 21.9 mg/mg High 10- [facility] Basic Metabolic Profile (BMP )on 10-16-2024 BUN/CRE 21.9 RATIO High 02-24 [facility] Comment on above: Performed By: #### L 503.7505, L500.2500 ####[facility] [address] [place], [address] Calcium [Mass/Vol] 9.2 mg/dL Normal 7.6-11.0 [facility] Comment on above: Performed By: #### L 503.7505, L500.2500 ####[facility] [address] [place], [address] Chloride [Moles/Vol] 104 mmol/L Normal 98-108 [facility] Comment on above: Performed By: #### L 503.7505, L500.2500 ####[facility] [address] [place], [address] CO2 [Moles/Vol] 26.8 mmol/L Normal 21.0-32.0 [facility] Comment on above: Performed By: #### L 503.7505, L500.2500 ####[facility] [address] [place], [address] Creatinine [Mass/Vol] 1.05 mg/dL Normal 0.70-1.20 [facility] Comment on above: Performed By: #### L 503.7505, L500.2500 ####[facility] [address] [place], [address] ECRCL 38.24 ml/min Low 50-250 [facility] Comment on above: Performed By: #### L 503.7505, L500.2500 ####[facility] [address] [place], [address] GAP 9 Normal 5-15 [facility] Comment on above: Performed By: #### L 503.7505, L500.2500 ####[facility] [address] [place], [address] GFR/1.73 sq M.predicted among non-blacks MDRD (S/P/Bld) [Vol rate/Area] 68 mL/min/{1.73_m2} Normal >60 [facility] Comment on above: Result Comment: mL/m in/1.73m2 CKD-EPI Creatinine Equation (2020) Performed By: #### L 503.7505, L500.2500 ####[facility] [address] [place], [address] Glucose [Mass/Vol] 93 mg/dL Normal 70-99 [facility] Comment on above: Performed By: #### L 503.7505, L500.2500 ####[facility] [address] [place], [address] Potassium [Moles/Vol] 4.0 mmol/L Normal 3.3-5.1 [facility] Comment on above: Performed By: #### L 503.7505, L500.2500 ####[facility] [address] [place], [address] Sodium [Moles/Vol] 140 mmol/L Normal 133-145 [facility] Comment on above: Performed By: #### L 503.7505, L500.2500 ####[facility] [address] [place], [address] Urea nitrogen [Mass/Vol] 23 mg/dL High 4-19 [facility] Comment on above: Performed By: #### L 503.7505, L500.2500 ####[facility] [address] [place], [address] Basophil percentageOrdered B y: Shay Gaxiola on 10-16-2024 Basophils/100 WBC (Bld) 0.7 % 0-1 [facility] CBC W/Diff, Automatedon 10-06 Absolute Lymph 1.91 X10 3/uL Normal 0.83-4.51 [facility] Comment on above: Performed By: #### L 100.0100 ####[facility] [address] [place], [address] Absolute Neut 5.3 X10 3/uL Normal 2.0-7.7 [facility] Comment on above: Performed By: #### L 100.0100 ####[facility] [address] [place], [address] Basophils/100 WBC (Bld) 0.7 % Normal 0-1 [facility] Comment on above: Performed By: #### L 100.0100 ####[facility] [address] [place], [address] Eosinophils/100 WBC (Bld) 12.0 % High 0-5 [facility] Comment on above: Performed By: #### L 100.0100 ####[facility] [address] [place], [address] Erythrocyte distribution width (RBC) [Ratio] 14.8 % High 11.6-14.6 [facility] Comment on above: Performed By: #### L 100.0100 ####[facility] [address] [place], [address] Hematocrit (Bld) [Volume fraction] 37.5 % Low 40-54 [facility] Comment on above: Performed By: #### L 100.0100 ####[facility] [address] [place], [address] Hemoglobin (Bld) [Mass/Vol] 12.3 g/dL Low 13.0-16.5 [facility] Comment on above: Performed By: #### L 100.0100 ####[facility] [address] [place], [address] IG% 0.400 Normal 0.0-0.9 [facility] Comment on above: Result Comment: IG% - Immature Granulocytes (promyelocytes, myelocytes andmetamyelocytes) > 1% indicates that a LEFT SHIFT is Present. Performed By: #### L 100.0100 ####[facility] [address] [place], [address] Lymphocytes/100 WBC (Bld) 20.0 % Normal 19-41 [facility] Comment on above: Performed By: #### L 100.0100 ####[facility] [address] [place], [address] MCH (RBC) [Entitic mass] 30.1 pg Normal 27.0-32.0 [facility] Comment on above: Performed By: #### L 100.0100 ####[facility] [address] [place], [address] MCHC (RBC) [Mass/Vol] 32.8 g/dL Normal 32-36 [facility] Comment on above: Performed By: #### L 100.0100 ####[facility] [address] [place], [address] MCV (RBC) [Entitic vol] 91.7 fL Normal 80-94 [facility] Comment on above: Performed By: #### L 100.0100 ####[facility] [address] [place], [address] Monocytes/100 WBC (Bld) 11.6 % High 0-10 [facility] Comment on above: Performed By: #### L 100.0100 ####[facility] [address] [place], [address] Neutrophils/100 WBC (Bld) 55.3 % Normal 47-70 [facility] Comment on above: Performed By: #### L 100.0100 ####[facility] [address] [place], [address] Nucleated RBC (Bld) [#/Vol] 0 10*3/uL Normal 0-5 [facility] Comment on above: Performed By: #### L 100.0100 ####[facility] [address] [place], [address] Platelet mean volume (Bld) [Entitic vol] 10.0 fL Normal 6.2-12.0 [facility] Comment on above: Performed By: #### L 100.0100 ####[facility] [address] [place], [address] Platelets (Bld) [#/Vol] 319 10*3/uL Normal 150-450 [facility] Comment on above: Performed By: #### L 100.0100 ####[facility] [address] [place], [address] RBC (Bld) [#/Vol] 4.09 10*6/uL Low 4.6-6.2 [facility] Comment on above: Performed By: #### L 100.0100 ####[facility] [address] [place], [address] RDW SD 49.9 fl High 35.1-43.9 [facility] Comment on above: Performed By: #### L 100.0100 ####[facility] [address] [place], [address] WBC (Bld) [#/Vol] 9.6 10*3/uL Normal 4.4-11.0 [facility] Comment on above: Performed By: #### L 100.0100 ####[facility] [address] [place], [place], [address] Carbon dioxide, total [Moles /volume] in Central venous bloodOrdered By: Shay Gaxiola on 10-16-2024 CO2 [Moles/Vol] 26.8 mmol/L 21.0-32.0 [facility] Chloride assayOrdered By: Osmani Gaxiola on 10-16-2024 Chloride [Moles/Vol] 104 mmol/L 98-108 [facility] Eosinophil percentageOrdered By: Shay Gaxiola on 10-16-2024 Eosinophils/100 WBC (Bld) 12.0 % High 0-5 [facility] Erythrocyte distribution wid th ratioOrdered By: Shay Gaxiola on 10-16-2024 Erythrocyte distribution width (RBC) [Ratio] 14.8 % High 11.6-14.6 [facility] Erythrocyte distribution wid th standard deviationOrdered By: Shay Gaxiola on 10-16-2024 Erythrocyte distribution width (RBC) [Ratio] 49.9 fl High 35.1-43.9 [facility] Glomerular filtration rate ( GFR) estimation/1.73 sq m using serum, plasma, or whole bOrdered By: Shay Gaxiola on 10-16-2024 GFR/1.73 sq M.predicted among non-blacks MDRD (S/P/Bld) [Vol rate/Area] 68 mL/min/{1.73_m2} >60 [facility] Comment on above: mL/min/1.73m2 CKD-EP I Creatinine Equation (2020) Hematocrit Auto (Bld) [Volum e fraction]Ordered By: Shay Gaxiola on 10-16-2024 Hematocrit (Bld) [Volume fraction] 37.5 % Low 40-54 [facility] Hemoglobin measurementOrdere d By: Shay Gaxiola on 10-16-2024 Hemoglobin (Bld) [Mass/Vol] 12.3 g/dL Low 13.0-16.5 [facility] Immature granulocytes/100 WB C Auto (Bld)Ordered By: Shay Gaxiola on 10-16-2024 Immature granulocytes/100 WBC (Bld) 0.400 % 0.0-0.9 [facility] Comment on above: IG% - Immature Granu locytes (promyelocytes, myelocytes and metamyelocytes) > 1% indicates that a LEFT SHIFT is Present. L503.7505on 10-16-2024 Natriuretic peptide B (Bld) [Mass/Vol] 342 pg/mL Normal <=1800 [facility] Comment on above: Result Comment: Hear t Failure Unlikely: < 300 pg/mLHeart Failure Likely< 50 Years: > 450 pg/mL50-75 Years: > 900 pg/mL>75 Years: > 1800 pg/mL Performed By: #### L 503.7505, L500.2500 ####[facility] [address] [place], [address] MCV (mean corpuscular volume ) determinationOrdered By: Shay Gaxiola on 10-16-2024 MCV (RBC) [Entitic vol] 91.7 fL 80-94 [facility] Mean corpuscular hemoglobin (MCH) determinationOrdered By: Shay Gaxiola on 10-16-2024 MCH (RBC) [Entitic mass] 30.1 pg 27.0-32.0 [facility] Mean corpuscular hemoglobin concentration (MCHC) determinationOrdered By: Shay Gaxiola on 10-16-2024 MCHC (RBC) [Mass/Vol] 32.8 g/dL 32-36 [facility] Mean platelet volume determi nationOrdered By: Shay Gaxiola on 10-16-2024 Platelet mean volume (Bld) [Entitic vol] 10.0 fL 6.2-12.0 [facility] Monocyte percentageOrdered B y: Shay Gaxiola on 10-16-2024 Monocytes/100 WBC (Bld) 11.6 % High 0-10 [facility] Natriuretic peptide.B prohor ashish N-Terminal [Mass/volume] in Serum or PlasmaOrdered By: Shay Gaxiola on 10-16-2024 Natriuretic peptide.B prohormone N-Terminal [Mass/Vol] 342 pg/mL <1800 [facility] Comment on above: Heart Failure Unlike ly: < 300 pg/mLHeart Failure Likely< 50 Years: > 450 pg/mL50-75 Years: > 900 pg/mL>75 Years: > 1800 pg/mL Neutrophil percentageOrdered By: Shay Khalida on 10-16-2024 Neutrophils/100 WBC (Bld) 55.3 % 47-70 [facility] Nucleated red blood cell per centageOrdered By: Shay Khalida on 10-16-2024 Nucleated RBC/100 WBC (Bld) [Ratio] 0 % 0-5 [facility] Platelet countOrdered By: Osmani skyla Khalida on 10-16-2024 Platelets (Bld) [#/Vol] 319 10*3/uL 150-450 [facility] Potassium measurement (mass/ volume)Ordered By: Shay Khalida on 10-16-2024 Potassium (Unsp spec) [Mass/Vol] 4.0 mmol/L 3.3-5.1 [facility] RBC Auto (Bld) [#/Vol]Ordere d By: Shay Khalida on 10-16-2024 RBC (Bld) [#/Vol] 4.09 10*6/uL Low 4.6-6.2 [facility] Serum creatinine measurement (mass/volume)Ordered By: Shay Khalida on 10-16-2024 Creatinine [Mass/Vol] 1.05 mg/dL 0.70-1.20 [facility] Serum glucose measurement (m ass/volume)Ordered By: Shay Khalida on 10-16-2024 Glucose [Mass/Vol] 93 mg/dL 70-99 [facility] Serum or plasma calcium patrick urement (mass/volume)Ordered By: Shay Khalida on 10-16-2024 Calcium [Mass/Vol] 9.2 mg/dL 7.6-11.0 [facility] Serum or plasma urea nitroge n measurement (mass/volume)Ordered By: Shay Khalida on 10-16-2024 Urea nitrogen [Mass/Vol] 23 mg/dL High 4-19 [facility] Sodium levelOrdered By: Shay Khalida on 10-16-2024 Sodium [Moles/Vol] 140 mmol/L 133-145 [facility] White blood cell (WBC) count Ordered By: Shay Khalida on 10-16-2024 WBC (Bld) [#/Vol] 9.6 10*3/uL 4.4-11.0 [facility] Bilirubin Test strip Ql (U)O rdered By: Shay Gaxiola on 10-15-2024 Bilirubin Ql (U) Negative Negative [facility] Chest PA and Lateralon 10-15 Chest PA and Lateral Normal [facility] Electrocardiogram reportOrde red By: Juan C Guthrie on 10-15-[address] [facility] Cardi[facility] Services [address] [place] [address] 12 Lead EKG 10/14/24 1143 MR#: [id number] Acct: [id number] Name: AYESHA JACOBSEN Rep #:[id number] : [id number] 89 From: Juan C card [...] was found Confirmed by Juan C Guthrie ([id number]), videotape editor CARON DYER ([id number]) on 10/15/2024 11:06:40 AM Referred By: Shay Gaxiola Confirmed By: Juan C Guthrie 10/15/24 1106 Date _ Juan C Guthrie MD CC: Dr. Nimisha Oseguera MD; Dr. Shay Gaxiola, DO ~ Signed [facility] Work Phone: Ketones Test strip Ql (U)Ord ered By: Shay Gaxiola on 10-15-2024 Ketones Ql (U) Negative Negative [facility] Microscopic analysis of urin e for red blood cells (RBC)Ordered By: Shay Gaxiola on 10-15-2024 Microscopic analysis of urine for red blood cells (RBC) 0-5 SEEN /hpf 0-5 [facility] Mucus LM Ql (Urine sed)Order ed By: Shay Calvovicky on 10-15-2024 Mucus Ql (Urine sed) 0 SEEN /hpf [facility] Nitrite Test strip Ql (U)Ord ered By: Shay Gaxiola on 10-15-2024 Nitrite Ql (U) Negative Negative [facility] Protein Test strip Ql (U)Ord ered By: Shay Calvovicky on 10-15-2024 Protein Ql (U) 15 mg/dl High Negative [facility] Squamous epithelial cells de tection in urine sediment by light microscopyOrdered By: Shay Calvovicky on 10-15-2024 Epithelial cells.squamous LM Ql (Urine sed) 0 SEEN /hpf 0-5 [facility] Urinalysis, Completeon 10-15 RBC 0-5 SEEN Normal 0-5 [facility] Comment on above: Order Comment: CLEAN CATCH Performed By: #### L 400.0001 ####[facility] [address] [place], [address] WBC 0-5 SEEN Normal 0-5 [facility] Comment on above: Order Comment: CLEAN CATCH Performed By: #### L 400.0001 ####[facility] [address] [place], [address] BACTERIA 0 SEEN Normal None Seen [facility] Comment on above: Order Comment: CLEAN CATCH Performed By: #### L 400.0001 ####[facility] [address] [place], [address] EPI,SQUAMOUS 0 SEEN Normal 0-5 [facility] Comment on above: Order Comment: CLEAN CATCH Performed By: #### L 400.0001 ####[facility] [address] [place], [address] Mucus Ql (Urine sed) 0 SEEN Normal [facility] Comment on above: Order Comment: CLEAN CATCH Performed By: #### L 400.0001 ####[facility] [address] [place], [address] Urine clarityOrdered By: Anusha Gaxiola on 10-15-2024 Clarity (U) Clear Clear [facility] Urine color determinationOrd ered By: Shay Calvovicky on 10-15-2024 Color (U) Yellow Yellow [facility] Urine glucose detectionOrder ed By: Shay Calvovicky on 10-15-2024 Glucose Ql (U) Normal mg/dl Normal [facility] Urine leukocyte esterase det ection by dipstickOrdered By: Shay Calvovicky on 10-15-2024 Leukocyte esterase Test strip Ql (U) 25 /ul High Negative [facility] Urine pHOrdered By: Shay Claudia argueta on 10-15-2024 pH (U) 6.5 [pH] 5.0 - 8.0 [facility] Urine sediment bacteria coun t by microscopy (number/high power field)Ordered By: Shay Calvovicky on 10-15-2024 Bacteria LM.HPF (Urine sed) [#/Area] 0 /[HPF] None Seen [facility] Urine specific gravity measu rementOrdered By: Shay Calvovicky on 10-15-2024 Specific gravity (U) [Rel density] 1.010 1.002-1.03 0 [facility] Urine urobilinogen measureme ntOrdered By: Shay Calvovicky on 10-15-2024 Urobilinogen Ql (U) Normal mg/dl Normal [facility] White blood cell countOrdere d By: Shay Calvovicky on 10-15-2024 White blood cell count 0-5 SEEN /hpf 0-5 [facility] 12 Lead EKGon 10-14-2024 12 Lead EKG Normal [facility] Urinalysis, Completeon 10-14 RBC 10-25 SEEN Normal 0-5 [facility] Comment on above: Order Comment: CARMEN TER SPECIMEN Performed By: #### L 400.0001 ####[facility] [address] [place], [place], [address] BACTERIA 0 SEEN Normal None Seen [facility] Comment on above: Order Comment: CARMEN TER SPECIMEN Performed By: #### L 400.0001 ####[facility] [address] [place], [place], [address] EPI,SQUAMOUS 0 SEEN Normal 0-5 [facility] Comment on above: Order Comment: CARMEN TER SPECIMEN Performed By: #### L 400.0001 ####[facility] [address] [place], [address] Mucus Ql (Urine sed) 0 SEEN Normal [facility] Comment on above: Order Comment: CARMEN TER SPECIMEN Performed By: #### L 400.0001 ####[facility] [address] [place], [address] WBC 0 SEEN Normal 0-5 [facility] Comment on above: Order Comment: CARMEN TER SPECIMEN Performed By: #### L 400.0001 ####[facility] [address] [place], [address] Bilirubin, totalOrdered By: Shay Gaxiola on 10-10-2024 Bilirubin [Mass/Vol] 0.46 mg/dL 0.00-1.30 [facility] CBC W/Diff, Automatedon 06--2024 Absolute Lymph 2.44 X10 3/uL Normal 0.83-4.51 [facility] Comment on above: Order Comment: ADD O N DIFFERENTIAL Performed By: #### L 100.0500, L500.4050, L100.0100 ####[facility] [address] [place], [address] Absolute Neut 6.9 X10 3/uL Normal 2.0-7.7 [facility] Comment on above: Order Comment: ADD O N DIFFERENTIAL Performed By: #### L 100.0500, L500.4050, L100.0100 ####[facility] [address] [place], [address] Basophils/100 WBC (Bld) 0.7 % Normal 0-1 [facility] Comment on above: Order Comment: ADD O N DIFFERENTIAL Performed By: #### L 100.0500, L500.4050, L100.0100 ####[facility] [address] [place], [address] Eosinophils/100 WBC (Bld) 9.6 % High 0-5 [facility] Comment on above: Order Comment: ADD O N DIFFERENTIAL Performed By: #### L 100.0500, L500.4050, L100.0100 ####[facility] [address] [place], [address] IG% 1.000 High 0.0-0.9 [facility] Comment on above: Order Comment: ADD O N DIFFERENTIAL Result Comment: IG% - Immature Granulocytes (promyelocytes, myelocytes andmetamyelocytes) > 1% indicates that a LEFT SHIFT is Present. Performed By: #### L 100.0500, L500.4050, L100.0100 ####[facility] [address] [place], [address] Lymphocytes/100 WBC (Bld) 21.1 % Normal 19-41 [facility] Comment on above: Order Comment: ADD O N DIFFERENTIAL Performed By: #### L 100.0500, L500.4050, L100.0100 ####[facility] [address] [place], [address] Monocytes/100 WBC (Bld) 8.3 % Normal 0-10 [facility] Comment on above: Order Comment: ADD O N DIFFERENTIAL Performed By: #### L 100.0500, L500.4050, L100.0100 ####[facility] [address] [place], [address] Neutrophils/100 WBC (Bld) 59.3 % Normal 47-70 [facility] Comment on above: Order Comment: ADD O N DIFFERENTIAL Performed By: #### L 100.0500, L500.4050, L100.0100 ####[facility] [address] [place], [address] Nucleated RBC (Bld) [#/Vol] 0 10*3/uL Normal 0-5 [facility] Comment on above: Order Comment: ADD O N DIFFERENTIAL Performed By: #### L 100.0500, L500.4050, L100.0100 ####[facility] [address] [place], [address] CBC-Complete Blood Cnt No Di ffon 10-10-2024 Erythrocyte distribution width (RBC) [Ratio] 14.7 % High 11.6-14.6 [facility] Comment on above: Performed By: #### L 100.0500, L500.4050, L100.0100 ####[facility] [address] [place], [address] Hematocrit (Bld) [Volume fraction] 35.0 % Low 40-54 [facility] Comment on above: Performed By: #### L 100.0500, L500.4050, L100.0100 ####[facility] [address] [place], [address] Hemoglobin (Bld) [Mass/Vol] 11.6 g/dL Low 13.0-16.5 [facility] Comment on above: Performed By: #### L 100.0500, L500.4050, L100.0100 ####[facility] [address] [place], [address] MCH (RBC) [Entitic mass] 30.2 pg Normal 27.0-32.0 [facility] Comment on above: Performed By: #### L 100.0500, L500.4050, L100.0100 ####[facility] [address] [place], [address] MCHC (RBC) [Mass/Vol] 33.1 g/dL Normal 32-36 [facility] Comment on above: Performed By: #### L 100.0500, L500.4050, L100.0100 ####[facility] [address] [place], [address] MCV (RBC) [Entitic vol] 91.1 fL Normal 80-94 [facility] Comment on above: Performed By: #### L 100.0500, L500.4050, L100.0100 ####[facility] [address] [place], [address] Platelet mean volume (Bld) [Entitic vol] 9.9 fL Normal 6.2-12.0 [facility] Comment on above: Performed By: #### L 100.0500, L500.4050, L100.0100 ####[facility] [address] [place], [address] Platelets (Bld) [#/Vol] 333 10*3/uL Normal 150-450 [facility] Comment on above: Performed By: #### L 100.0500, L500.4050, L100.0100 ####[facility] [address] [place], [address] RBC (Bld) [#/Vol] 3.84 10*6/uL Low 4.6-6.2 [facility] Comment on above: Performed By: #### L 100.0500, L500.4050, L100.0100 ####[facility] [address] [place], [address] RDW SD 49.1 fl High 35.1-43.9 [facility] Comment on above: Performed By: #### L 100.0500, L500.4050, L100.0100 ####[facility] [address] [place], [address] WBC (Bld) [#/Vol] 11.7 10*3/uL High 4.4-11.0 [facility] Comment on above: Performed By: #### L 100.0500, L500.4050, L100.0100 ####[facility] [address] [place], [address] Comprehensive Metabolic Prof [facility] 10-10-2024 Albumin [Mass/Vol] 3.2 g/dL Low 3.4-4.8 [facility] Comment on above: Performed By: #### L 100.0500, L500.4050, L100.0100 ####[facility] [address] [place], [address] Albumin/Globulin [Mass ratio] 1.1 {ratio} Normal 0.9-2.4 [facility] Comment on above: Performed By: #### L 100.0500, L500.4050, L100.0100 ####[facility] [address] [place], [address] ALK PHOS 105 U/L Normal 40-129 [facility] Comment on above: Performed By: #### L 100.0500, L500.4050, L100.0100 ####[facility] [address] [place], [address] ALT [Catalytic activity/Vol] 16 U/L Normal <=46 [facility] Comment on above: Performed By: #### L 100.0500, L500.4050, L100.0100 ####[facility] [address] [place], [address] AST [Catalytic activity/Vol] 19 U/L Normal <=37 [facility] Comment on above: Performed By: #### L 100.0500, L500.4050, L100.0100 ####[facility] [address] [place], [address] Bilirubin [Mass/Vol] 0.46 mg/dL Normal 0.00-1.30 [facility] Comment on above: Performed By: #### L 100.0500, L500.4050, L100.0100 ####[facility] [address] [place], [address] BUN/CRE 22.1 RATIO High 10-20 [facility] Comment on above: Performed By: #### L 100.0500, L500.4050, L100.0100 ####[facility] [address] [place], [address] Calcium [Mass/Vol] 9.0 mg/dL Normal 7.6-11.0 [facility] Comment on above: Performed By: #### L 100.0500, L500.4050, L100.0100 ####[facility] [address] [place], [address] Chloride [Moles/Vol] 105 mmol/L Normal 98-108 [facility] Comment on above: Performed By: #### L 100.0500, L500.4050, L100.0100 ####[facility] [address] [place], [address] CO2 [Moles/Vol] 28.6 mmol/L Normal 21.0-32.0 [facility] Comment on above: Performed By: #### L 100.0500, L500.4050, L100.0100 ####[facility] [address] [place], [address] Creatinine [Mass/Vol] 1.17 mg/dL Normal 0.70-1.20 [facility] Comment on above: Performed By: #### L 100.0500, L500.4050, L100.0100 ####[facility] [address] [place], [address] ECRCL 34.32 ml/min Low 50-250 [facility] Comment on above: Performed By: #### L 100.0500, L500.4050, L100.0100 ####[facility] [address] [place], [address] GAP 9 Normal 5-15 [facility] Comment on above: Performed By: #### L 100.0500, L500.4050, L100.0100 ####[facility] [address] [place], [address] GFR/1.73 sq M.predicted among non-blacks MDRD (S/P/Bld) [Vol rate/Area] 60 mL/min/{1.73_m2} Normal >60 [facility] Comment on above: Result Comment: mL/m in/1.73m2 CKD-EPI Creatinine Equation (2020) Performed By: #### L 100.0500, L500.4050, L100.0100 ####[facility] [address] [place], [address] Globulin (S) [Mass/Vol] 2.9 g/dL Normal 2.2-4.2 [facility] Comment on above: Performed By: #### L 100.0500, L500.4050, L100.0100 ####[facility] [address] [place], [address] Glucose [Mass/Vol] 88 mg/dL Normal 70-99 [facility] Comment on above: Performed By: #### L 100.0500, L500.4050, L100.0100 ####[facility] [address] [place], [address] Potassium [Moles/Vol] 4.7 mmol/L Normal 3.3-5.1 [facility] Comment on above: Performed By: #### L 100.0500, L500.4050, L100.0100 ####[facility] [address] [place], [address] Sodium [Moles/Vol] 142 mmol/L Normal 133-145 [facility] Comment on above: Performed By: #### L 100.0500, L500.4050, L100.0100 ####[facility] [address] [place], [address] T PROT 6.1 g/dL Normal 5.9-8.4 [facility] Comment on above: Performed By: #### L 100.0500, L500.4050, L100.0100 ####[facility] [address] [place], [address] Urea nitrogen [Mass/Vol] 26 mg/dL High 4-19 [facility] Comment on above: Performed By: #### L 100.0500, L500.4050, L100.0100 ####[facility] [address] [place], [address] Laboratory - Chemistry and C hemistry - challengeOrdered By: Shay Gaxiola on 10-10-2024 AST [Catalytic activity/Vol] 19 U/L <38 [facility] Serum globulin measurementOr dered By: Shay Gaxiola on 10-10-2024 Globulin (S) [Mass/Vol] 2.9 g/dL 2.2-4.2 [facility] Serum or plasma alanine orozco otransferase (ALT) measurementOrdered By: Shay Gaxiola on 10-10-2024 ALT [Catalytic activity/Vol] 16 U/L <47 [facility] Serum or plasma albumin patrick urement (mass/volume)Ordered By: Shay Gaxiola on 10-10-2024 Albumin [Mass/Vol] 3.2 g/dL Low 3.4-4.8 [facility] Serum or plasma albumin/glob ulin mass ratioOrdered By: Shay Gaxiola on 10-10-2024 Albumin/Globulin [Mass ratio] 1.1 {ratio} 0.9-2.4 [facility] Serum or plasma alkaline mei sphatase measurementOrdered By: Shay Gaxiola on 10-10-2024 ALP [Catalytic activity/Vol] 105 U/L 40-129 [facility] Total proteinOrdered By: Anusha Gaxiola on 10-10-2024 Protein [Mass/Vol] 6.1 g/dL 5.9-8.4 [facility] Magnesiumon 10-08-2024 Magnesium [Mass/Vol] 1.8 mg/dL Normal 1.5-2.2 [facility] Comment on above: Performed By: #### L 501.2300, L501.5200 ####[facility] [address] [place], [address] Magnesium measurement (mass/ volume)Ordered By: Shay Gaxiola on 10-08-2024 Magnesium (Unsp spec) [Mass/Vol] 1.8 mg/dL 1.5-2.2 [facility] Phosphoruson 10-08-2024 Phosphate [Mass/Vol] 3.1 mg/dL Normal 2.7-4.5 [facility] Comment on above: Performed By: #### L 501.2300, L501.5200 ####[facility] [address] [place], [place], [address] Electrocardiogram reportOrde red By: Juan C Guthrie on 10-07-[address] [facility] Cardi[facility] [address] [place] [address] 12 Lead EKG 10/01/24 1127 MR#: [id number] Acct: [id number] Name: AYESHA JACOBSEN Rep #:[id number] : 1935 89 From: Juan C card MD Attending Dr: Dr. Shay Gaxiola DO Status: ADM IN Ordering Dr: Shay Gaxiola DO Date: 10/01/24 Location: Sex: M C Admitted: 09/27/24 Test [...] POOR TRACING Confirmed by Juan C Guthrie ([id number]), videotape editor CARON DYER ([id number]) on 10/07/2024 1:19:10 PM Referred By: Shay Gaxiola Confirmed By: Juan C Guthrie 10/07/24 1319 Date _ Juan C Guthrie MD CC: Dr. Nimisha Oseguera MD; Dr. Shay Gaxiola DO ~ Signed [facility] Work Phone: Basic Metabolic Profile (BMP )on 10-02-2024 BUN/CRE 25.9 RATIO High 10-20 [facility] Comment on above: Performed By: #### L 100.0100, L506.0400, L500.2500, L501.96388 ####[facility] [address] [place], [address] Calcium [Mass/Vol] 9.0 mg/dL Normal 7.6-11.0 [facility] Comment on above: Performed By: #### L 100.0100, L506.0400, L500.2500, L501.42160 ####[facility] [address] [place], [address] Chloride [Moles/Vol] 105 mmol/L Normal 98-108 [facility] Comment on above: Performed By: #### L 100.0100, L506.0400, L500.2500, L501.84369 ####[facility] [address] [place], [address] CO2 [Moles/Vol] 24.5 mmol/L Normal 21.0-32.0 [facility] Comment on above: Performed By: #### L 100.0100, L506.0400, L500.2500, L501.25198 ####[facility] [address] [place], [address] Creatinine [Mass/Vol] 1.06 mg/dL Normal 0.70-1.20 [facility] Comment on above: Performed By: #### L 100.0100, L506.0400, L500.2500, L501.38876 ####[facility] [address] [place], [address] ECRCL 37.75 ml/min Low 50-250 [facility] Comment on above: Performed By: #### L 100.0100, L506.0400, L500.2500, L501.90983 ####[facility] [address] [place], [address] GAP 10 Normal 5-15 [facility] Comment on above: Performed By: #### L 100.0100, L506.0400, L500.2500, L501.75402 ####[facility] [address] [place], [address] GFR/1.73 sq M.predicted among non-blacks MDRD (S/P/Bld) [Vol rate/Area] 68 mL/min/{1.73_m2} Normal >60 [facility] Comment on above: Result Comment: mL/m in/1.73m2 CKD-EPI Creatinine Equation (2020) Performed By: #### L 100.0100, L506.0400, L500.2500, L501.88473 ####[facility] [address] [place], [address] Glucose [Mass/Vol] 91 mg/dL Normal 70-99 [facility] Comment on above: Performed By: #### L 100.0100, L506.0400, L500.2500, L501.63499 ####[facility] [address] [place], [address] Potassium [Moles/Vol] 4.0 mmol/L Normal 3.3-5.1 [facility] Comment on above: Performed By: #### L 100.0100, L506.0400, L500.2500, L501.73000 ####[facility] [address] [place], [address] Sodium [Moles/Vol] 139 mmol/L Normal 133-145 [facility] Comment on above: Performed By: #### L 100.0100, L506.0400, L500.2500, L501.42505 ####[facility] [address] [place], [address] Urea nitrogen [Mass/Vol] 28 mg/dL High 4-19 [facility] Comment on above: Performed By: #### L 100.0100, L506.0400, L500.2500, L501.19236 ####[facility] [address] [place], [address] CBC W/Diff, Automatedon 09-06 Absolute Lymph 2.51 X10 3/uL Normal 0.83-4.51 [facility] Comment on above: Performed By: #### L 100.0100, L506.0400, L500.2500, L501.64872 ####[facility] [address] [place], [address] Absolute Neut 5.7 X10 3/uL Normal 2.0-7.7 [facility] Comment on above: Performed By: #### L 100.0100, L506.0400, L500.2500, L501.71118 ####[facility] [address] [place], [address] Basophils/100 WBC (Bld) 0.7 % Normal 0-1 [facility] Comment on above: Performed By: #### L 100.0100, L506.0400, L500.2500, L501.04232 ####[facility] [address] [place], [address] Eosinophils/100 WBC (Bld) 11.5 % High 0-5 [facility] Comment on above: Performed By: #### L 100.0100, L506.0400, L500.2500, L501.81740 ####[facility] [address] [place], [address] Erythrocyte distribution width (RBC) [Ratio] 14.5 % Normal 11.6-14.6 [facility] Comment on above: Performed By: #### L 100.0100, L506.0400, L500.2500, L501.38745 ####[facility] [address] [place], [address] Hematocrit (Bld) [Volume fraction] 36.0 % Low 40-54 [facility] Comment on above: Performed By: #### L 100.0100, L506.0400, L500.2500, L501.85945 ####[facility] [address] [place], [address] Hemoglobin (Bld) [Mass/Vol] 12.0 g/dL Low 13.0-16.5 [facility] Comment on above: Performed By: #### L 100.0100, L506.0400, L500.2500, L501.90047 ####[facility] [address] [place], [address] IG% 1.700 High 0.0-0.9 [facility] Comment on above: Result Comment: IG% - Immature Granulocytes (promyelocytes, myelocytes andmetamyelocytes) > 1% indicates that a LEFT SHIFT is Present. Performed By: #### L 100.0100, L506.0400, L500.2500, L501.89932 ####[facility] [address] [place], [address] Lymphocytes/100 WBC (Bld) 23.4 % Normal 19-41 [facility] Comment on above: Performed By: #### L 100.0100, L506.0400, L500.2500, L501.14739 ####[facility] [address] [place], [address] MCH (RBC) [Entitic mass] 30.2 pg Normal 27.0-32.0 [facility] Comment on above: Performed By: #### L 100.0100, L506.0400, L500.2500, L501.38703 ####[facility] [address] [place], [address] MCHC (RBC) [Mass/Vol] 33.3 g/dL Normal 32-36 [facility] Comment on above: Performed By: #### L 100.0100, L506.0400, L500.2500, L501.88855 ####[facility] [address] [place], [address] MCV (RBC) [Entitic vol] 90.5 fL Normal 80-94 [facility] Comment on above: Performed By: #### L 100.0100, L506.0400, L500.2500, L501.35457 ####[facility] [address] [place], [address] Monocytes/100 WBC (Bld) 10.2 % High 0-10 [facility] Comment on above: Performed By: #### L 100.0100, L506.0400, L500.2500, L501.26908 ####[facility] [address] [place], [address] Neutrophils/100 WBC (Bld) 52.5 % Normal 47-70 [facility] Comment on above: Performed By: #### L 100.0100, L506.0400, L500.2500, L501.40409 ####[facility] [address] [place], [address] Nucleated RBC (Bld) [#/Vol] 0 10*3/uL Normal 0-5 [facility] Comment on above: Performed By: #### L 100.0100, L506.0400, L500.2500, L501.03346 ####[facility] [address] [place], [address] Platelet mean volume (Bld) [Entitic vol] 10.5 fL Normal 6.2-12.0 [facility] Comment on above: Performed By: #### L 100.0100, L506.0400, L500.2500, L501.34298 ####[facility] [address] [place], [address] Platelets (Bld) [#/Vol] 169 10*3/uL Normal 150-450 [facility] Comment on above: Performed By: #### L 100.0100, L506.0400, L500.2500, L501.56455 ####[facility] [address] [place], [address] RBC (Bld) [#/Vol] 3.98 10*6/uL Low 4.6-6.2 [facility] Comment on above: Performed By: #### L 100.0100, L506.0400, L500.2500, L501.08652 ####[facility] [address] [place], [address] RDW SD 48.8 fl High 35.1-43.9 [facility] Comment on above: Performed By: #### L 100.0100, L506.0400, L500.2500, L501.85823 ####[facility] [address] [place], [address] WBC (Bld) [#/Vol] 10.7 10*3/uL Normal 4.4-11.0 [facility] Comment on above: Performed By: #### L 100.0100, L506.0400, L500.2500, L501.21793 ####[facility] [address] [place], [address] Free T3on 10-02-2024 Free T3 [Mass/Vol] 2.5 pg/mL Normal 2.18-3.98 [facility] Comment on above: Performed By: #### L 100.0100, L506.0400, L500.2500, L501.06848 ####[facility] [address] [place], [address] Free F5Xxbmxgv By: Shay Taylorelisa ibarra on 10-02-2024 Free T3 [Mass/Vol] 2.5 pg/mL 2.18-3.98 [facility] Modified Barium Swallow Stud yon 10-02-2024 Modified Barium Swallow Study Normal [facility] T4 Free Directon 10-02-2024 T4 FREE DIRECT 1.00 ng/dL Normal 0.76-1.46 [facility] Comment on above: Performed By: #### L 100.0100, L506.0400, L500.2500, L501.09248 ####[facility] [address] [place], [address] T4 freeOrdered By: Shay ibarra on 10-02-2024 Free T4 [Mass/Vol] 1.00 ng/dL 0.76-1.46 [facility] 12 Lead EKGon 10-01-2024 12 Lead EKG Normal [facility] Wound Cultureon 10-01-2024 WC Normal [facility] Comment on above: Performed By: #### M 100.3000, M100.1999 ####[facility] [address] [place], [address] Gram Stainon 09-30-2024 GS LEFT EYE Gram Stain No organisms seen No cells seen Normal [facility] Comment on above: Performed By: #### M 100.3000, M100.1999 ####[facility] [address] [place], [address] Stool Occult Blood iFOBon STOB Positive Normal [facility] Comment on above: Performed By: #### M 100.7900 ####[facility] [address] [place], [address] Stool gastrointestinal hemog lobin detection by immunologic methodOrdered By: Shay Gaxiola on 09-30-2024 Lower GI hemoglobin IA Ql (Stl) Positive Abnormal [facility] Gram stainOrdered By: Shay herr on 09-29-2024 Microscopic observation Gram stain Nom (Unsp spec) [facility] Urinalysis, Completeon 09-29 BACTERIA 1+ /hpf Normal None Seen [facility] Comment on above: Order Comment: CARMEN TER SPECIMEN Performed By: #### L 400.0001 ####[facility] [address] [place], [address] EPI,SQUAMOUS 0-5 SEEN Normal 0-5 [facility] Comment on above: Order Comment: CARMEN TER SPECIMEN Performed By: #### L 400.0001 ####[facility] [address] [place], [address] Blood manual differential co mment interpretation (narrative result)Ordered By: Shay Calvovicky on 09-28-2024 Manual differential comment Nav (Bld) [Interp] SCANNED [facility] CBC W/Diff, Automatedon 09-06 SMEAR COMMENT SCANNED Normal [facility] Comment on above: Performed By: #### L 501.5200, L100.0100, L500.4050, L501.2300 ####[facility] [address] [place], [address] Chest PA and Lateralon 09-28 Chest PA and Lateral Normal [facility] Comprehensive Metabolic Prof ilon 09-28-2024 Albumin [Mass/Vol] 3.2 g/dL Low 3.4-4.8 [facility] Comment on above: Performed By: #### L 501.5200, L100.0100, L500.4050, L501.2300 ####[facility] [address] [place], [address] Albumin/Globulin [Mass ratio] 1.1 {ratio} Normal 0.9-2.4 [facility] Comment on above: Performed By: #### L 501.5200, L100.0100, L500.4050, L501.2300 ####[facility] [address] [place], [address] ALK PHOS 75 U/L Normal 40-129 [facility] Comment on above: Performed By: #### L 501.5200, L100.0100, L500.4050, L501.2300 ####[facility] [address] [place], [address] ALT [Catalytic activity/Vol] 16 U/L Normal <=46 [facility] Comment on above: Performed By: #### L 501.5200, L100.0100, L500.4050, L501.2300 ####[facility] [address] [place], [address] AST [Catalytic activity/Vol] 20 U/L Normal <=37 [facility] Comment on above: Performed By: #### L 501.5200, L100.0100, L500.4050, L501.2300 ####[facility] [address] [place], [address] Bilirubin [Mass/Vol] 0.68 mg/dL Normal 0.00-1.30 [facility] Comment on above: Performed By: #### L 501.5200, L100.0100, L500.4050, L501.2300 ####[facility] [address] [place], [address] BUN/CRE 18.5 RATIO Normal 10-20 [facility] Comment on above: Performed By: #### L 501.5200, L100.0100, L500.4050, L501.2300 ####[facility] [address] [place], [address] Calcium [Mass/Vol] 8.9 mg/dL Normal 7.6-11.0 [facility] Comment on above: Performed By: #### L 501.5200, L100.0100, L500.4050, L501.2300 ####[facility] [address] [place], [address] Chloride [Moles/Vol] 105 mmol/L Normal 98-108 [facility] Comment on above: Performed By: #### L 501.5200, L100.0100, L500.4050, L501.2300 ####[facility] [address] [place], [address] CO2 [Moles/Vol] 23.4 mmol/L Normal 21.0-32.0 [facility] Comment on above: Performed By: #### L 501.5200, L100.0100, L500.4050, L501.2300 ####[facility] [address] [place], [address] Creatinine [Mass/Vol] 0.91 mg/dL Normal 0.70-1.20 [facility] Comment on above: Performed By: #### L 501.5200, L100.0100, L500.4050, L501.2300 ####[facility] [address] [place], [address] ECRCL 43.83 ml/min Low 50-250 [facility] Comment on above: Performed By: #### L 501.5200, L100.0100, L500.4050, L501.2300 ####[facility] [address] [place], [address] GAP 9 Normal 5-15 [facility] Comment on above: Performed By: #### L 501.5200, L100.0100, L500.4050, L501.2300 ####[facility] [address] [place], [address] GFR/1.73 sq M.predicted among non-blacks MDRD (S/P/Bld) [Vol rate/Area] 81 mL/min/{1.73_m2} Normal >60 [facility] Comment on above: Result Comment: mL/m in/1.73m2 CKD-EPI Creatinine Equation (2020) Performed By: #### L 501.5200, L100.0100, L500.4050, L501.2300 ####[facility] [address] [place], [address] Globulin (S) [Mass/Vol] 3.0 g/dL Normal 2.2-4.2 [facility] Comment on above: Performed By: #### L 501.5200, L100.0100, L500.4050, L501.2300 ####[facility] [address] [place], [address] Glucose [Mass/Vol] 108 mg/dL High 70-99 [facility] Comment on above: Performed By: #### L 501.5200, L100.0100, L500.4050, L501.2300 ####[facility] [address] [place], [address] Potassium [Moles/Vol] 3.8 mmol/L Normal 3.3-5.1 [facility] Comment on above: Performed By: #### L 501.5200, L100.0100, L500.4050, L501.2300 ####[facility] [address] [place], [address] Sodium [Moles/Vol] 138 mmol/L Normal 133-145 [facility] Comment on above: Performed By: #### L 501.5200, L100.0100, L500.4050, L501.2300 ####[facility] [address] [place], [address] T PROT 6.1 g/dL Normal 5.9-8.4 [facility] Comment on above: Performed By: #### L 501.5200, L100.0100, L500.4050, L501.2300 ####[facility] [address] [place], [address] Urea nitrogen [Mass/Vol] 17 mg/dL Normal 4-19 [facility] Comment on above: Performed By: #### L 501.5200, L100.0100, L500.4050, L501.2300 ####[facility] [address] [place], [address] Magnesiumon 09-28-2024 Magnesium [Mass/Vol] 1.6 mg/dL Normal 1.5-2.2 [facility] Comment on above: Performed By: #### L 501.5200, L100.0100, L500.4050, L501.2300 ####[facility] [address] [place], [address] Phosphoruson 09-28-2024 Phosphate [Mass/Vol] 2.1 mg/dL Low 2.7-4.5 [facility] Comment on above: Performed By: #### L 501.5200, L100.0100, L500.4050, L501.2300 ####[facility] [address] [place], [address] Urinalysis, Completeon 09-28 Mucus Ql (Urine sed) 0 SEEN Normal [facility] Comment on above: Order Comment: CARMEN TER SPECIMEN Performed By: #### L 400.0001 ####[facility] [address] [place], [address] RBC 0 SEEN Normal 0-5 [facility] Comment on above: Order Comment: CARMEN TER SPECIMEN Performed By: #### L 400.0001 ####[facility] [address] [place], [address] WBC 0 SEEN Normal 0-5 [facility] Comment on above: Order Comment: CARMEN TER SPECIMEN Performed By: #### L 400.0001 ####[facility] [address] [place], [address] Vitamin B12on 09-28-2024 Cobalamin (Vitamin B12) [Mass/Vol] 1555 pg/mL High 180-914 [facility] Comment on above: Performed By: #### L 503.0106 ####[facility] [address] [place], [address] Vitamin B12 ser/plasOrdered By: Shay Gaxiola on 09-28-2024 Cobalamin (Vitamin B12) [Mass/Vol] 1555 pg/mL High 180-914 [facility] Anion gap in Serum or Plasma Ordered By: Juju Vuong on 09-26-2024 Anion gap [Moles/Vol] 11 mmol/L - [facility] BUN/creatinine ratioOrdered By: Juju Vuong on 09-26-2024 Urea nitrogen/Creatinine [Mass ratio] 23.9 mg/mg High 02-24 [facility] Basic Metabolic Profile (BMP )on 09-26-2024 BUN/CRE 23.9 RATIO High 02-24 [facility] Comment on above: Order Comment: Comme nts: NPO at [place] prior to lipid panel Performed By: #### L 500.4100, L500.2500, L501.2300, L501.5200 ####[facility] [address] [place], [address] Calcium [Mass/Vol] 8.6 mg/dL Normal 7.6-11.0 [facility] Comment on above: Order Comment: Comme nts: NPO at [place] prior to lipid panel Performed By: #### L 500.4100, L500.2500, L501.2300, L501.5200 ####[facility] [address] [place], [address] Chloride [Moles/Vol] 111 mmol/L High 98-108 [facility] Comment on above: Order Comment: Comme nts: NPO at [place] prior to lipid panel Performed By: #### L 500.4100, L500.2500, L501.2300, L501.5200 ####[facility] [address] [place], [address] CO2 [Moles/Vol] 18.4 mmol/L Low 21.0-32.0 [facility] Comment on above: Order Comment: Comme nts: NPO at [place] prior to lipid panel Performed By: #### L 500.4100, L500.2500, L501.2300, L501.5200 ####[facility] [address] [place], [address] Creatinine [Mass/Vol] 1.02 mg/dL Normal 0.70-1.20 [facility] Comment on above: Order Comment: Comme nts: NPO at [place] prior to lipid panel Performed By: #### L 500.4100, L500.2500, L501.2300, L501.5200 ####[facility] [address] [place], [address] ECRCL 38.63 ml/min Low 50-250 [facility] Comment on above: Order Comment: Comme nts: NPO at [place] prior to lipid panel Performed By: #### L 500.4100, L500.2500, L501.2300, L501.5200 ####[facility] [address] [place], [address] GAP 11 Normal 5-15 [facility] Comment on above: Order Comment: Comme nts: NPO at [place] prior to lipid panel Performed By: #### L 500.4100, L500.2500, L501.2300, L501.5200 ####[facility] [address] [place], [address] GFR/1.73 sq M.predicted among non-blacks MDRD (S/P/Bld) [Vol rate/Area] 71 mL/min/{1.73_m2} Normal >60 [facility] Comment on above: Order Comment: Comme nts: NPO at [place] prior to lipid panel Result Comment: mL/m in/1.73m2 CKD-EPI Creatinine Equation (2020) Performed By: #### L 500.4100, L500.2500, L501.2300, L501.5200 ####[facility] [address] [place], [address] Glucose [Mass/Vol] 90 mg/dL Normal 70-99 [facility] Comment on above: Order Comment: Comme nts: NPO at [place] prior to lipid panel Performed By: #### L 500.4100, L500.2500, L501.2300, L501.5200 ####[facility] [address] [place], [address] Potassium [Moles/Vol] 4.4 mmol/L Normal 3.3-5.1 [facility] Comment on above: Order Comment: Comme nts: NPO at [place] prior to lipid panel Result Comment: Hemo lysis present, Results??could be affected.?? Performed By: #### L 500.4100, L500.2500, L501.2300, L501.5200 ####[facility] [address] [place], [address] Sodium [Moles/Vol] 140 mmol/L Normal 133-145 [facility] Comment on above: Order Comment: Comme nts: NPO at [place] prior to lipid panel Performed By: #### L 500.4100, L500.2500, L501.2300, L501.5200 ####[facility] [address] [place], [address] Urea nitrogen [Mass/Vol] 24 mg/dL High 4-19 [facility] Comment on above: Order Comment: Comme nts: NPO at [place] prior to lipid panel Performed By: #### L 500.4100, L500.2500, L501.2300, L501.5200 ####[facility] [address] [place], [address] CBC-Complete Blood Cnt No Di ffon 09-26-2024 Erythrocyte distribution width (RBC) [Ratio] 14.6 % Normal 11.6-14.6 [facility] Comment on above: Performed By: #### L 100.0500 ####[facility] [address] [place], [address] Hematocrit (Bld) [Volume fraction] 41.0 % Normal 40-54 [facility] Comment on above: Performed By: #### L 100.0500 ####[facility] [address] [place], [address] Hemoglobin (Bld) [Mass/Vol] 13.3 g/dL Normal 13.0-16.5 [facility] Comment on above: Performed By: #### L 100.0500 ####[facility] [address] [place], [address] MCH (RBC) [Entitic mass] 29.9 pg Normal 27.0-32.0 [facility] Comment on above: Performed By: #### L 100.0500 ####[facility] [address] [place], [address] MCHC (RBC) [Mass/Vol] 32.4 g/dL Normal 32-36 [facility] Comment on above: Performed By: #### L 100.0500 ####[facility] [address] [place], [address] MCV (RBC) [Entitic vol] 92.1 fL Normal 80-94 [facility] Comment on above: Performed By: #### L 100.0500 ####[facility] [address] [place], [address] Platelet mean volume (Bld) [Entitic vol] 11.6 fL Normal 6.2-12.0 [facility] Comment on above: Performed By: #### L 100.0500 ####[facility] [address] [place], [address] Platelets (Bld) [#/Vol] 141 10*3/uL Low 150-450 [facility] Comment on above: Performed By: #### L 100.0500 ####[facility] [address] [place], [address] RBC (Bld) [#/Vol] 4.45 10*6/uL Low 4.6-6.2 [facility] Comment on above: Performed By: #### L 100.0500 ####[facility] [address] [place], [address] RDW SD 48.9 fl High 35.1-43.9 [facility] Comment on above: Performed By: #### L 100.0500 ####[facility] [address] [place], [address] WBC (Bld) [#/Vol] 10.1 10*3/uL Normal 4.4-11.0 [facility] Comment on above: Performed By: #### L 100.0500 ####[facility] [address] [place], [address] Calculated very low density lipoprotein (VLDL) cholesterol measurementOrdered By: Juju Vuong on 09-26-2024 Calculated very low density lipoprotein (VLDL) cholesterol measurement 15 mg/dL 5-40 [facility] Carbon dioxide, total [Moles /volume] in Central venous bloodOrdered By: Juju Vuong on 09-26-2024 CO2 [Moles/Vol] 18.4 mmol/L Low 21.0-32.0 [facility] Chloride assayOrdered By: Benito Vuong on 09-26-2024 Chloride [Moles/Vol] 111 mmol/L High 98-108 [facility] Erythrocyte distribution wid th ratioOrdered By: Juju Vuong on 09-26-2024 Erythrocyte distribution width (RBC) [Ratio] 14.6 % 11.6-14.6 [facility] Erythrocyte distribution wid th standard deviationOrdered By: Juju Vuong on 09-26-2024 Erythrocyte distribution width (RBC) [Ratio] 48.9 fl High 35.1-43.9 [facility] Glomerular filtration rate ( GFR) estimation/1.73 sq m using serum, plasma, or whole bOrdered By: Juju Vuong on 09-26-2024 GFR/1.73 sq M.predicted among non-blacks MDRD (S/P/Bld) [Vol rate/Area] 71 mL/min/{1.73_m2} >60 [facility] Comment on above: mL/min/1.73m2 CKD-EP I Creatinine Equation (2020) Hematocrit Auto (Bld) [Volum e fraction]Ordered By: Juju Vuong on 09-26-2024 Hematocrit (Bld) [Volume fraction] 41.0 % 40-54 [facility] Hemoglobin measurementOrdere d By: Juju Vuong on 09-26-2024 Hemoglobin (Bld) [Mass/Vol] 13.3 g/dL 13.0-16.5 [facility] LDL calc ser/plasOrdered By: Juju Vuong on 09-26-2024 Cholesterol in LDL [Mass/Vol] 103 mg/dL [facility] Comment on above: Ujwhhxudpl=677-340 m g/dL & Higher Kdxc=076 mg/dL or greater Lipid Profileon 09-26-2024 CHOL:HDL 2.99 Normal [facility] Comment on above: Order Comment: Comme nts: NPO at [place] prior to lipid panel Performed By: #### L 500.4100, L500.2500, L501.2300, L501.5200 ####[facility] [address] [place], [place], [address] Cholesterol [Mass/Vol] 176 mg/dL Normal <=200 [facility] Comment on above: Order Comment: Comme nts: NPO at [place] prior to lipid panel Result Comment: Chol esterol level, Desirable <200 mg/dLBorderline high cholesterol 200-239 mg/dLHigh cholesterol >=240 mg/dLRecommendations of the NCEP Adult Treatment Panel for thefollowing risk-cutoff thresholds for the [place] Americanpopulation. Performed By: #### L 500.4100, L500.2500, L501.2300, L501.5200 ####[facility] [address] [place], [address] Cholesterol in HDL [Mass/Vol] 59 mg/dL Normal [facility] Comment on above: Order Comment: Comme nts: NPO at [place] prior to lipid panel Result Comment: Gisselle onal Cholesterol Education Program (NCEP) guidelines:<40 mg/dL: Low HDL-cholesterol (major risk factor for CHD)>= 60 mg/dL: High HDL-cholesterol (negative risk factor forCHD)HDL-cholesterol is affected by a number of factors, e.g.smoking, exercise, hormones, sex and age. Performed By: #### L 500.4100, L500.2500, L501.2300, L501.5200 ####[facility] [address] [place], [address] Cholesterol in LDL [Mass/Vol] 103 mg/dL Normal [facility] Comment on above: Order Comment: Comme nts: NPO at [place] prior to lipid panel Result Comment: Bord bmzamm=681-120 mg/dL Higher Dkcl=505 mg/dL or greater Performed By: #### L 500.4100, L500.2500, L501.2300, L501.5200 ####[facility] [address] [place], [address] Cholesterol in VLDL [Mass/Vol] 15 mg/dL Normal 5-40 [facility] Comment on above: Order Comment: Comme nts: NPO at [place] prior to lipid panel Performed By: #### L 500.4100, L500.2500, L501.2300, L501.5200 ####[facility] [address] [place], [address] Triglyceride [Mass/Vol] 73 mg/dL Normal [facility] Comment on above: Order Comment: Comme nts: NPO at [place] prior to lipid panel Result Comment: The drugs N-Acetylcysteine and Metamizole may falselydepress this assay.Normal range: <150 mg/dLBorderline High: 150-199 mg/dLHigh: 200-499 mg/dLVery High: >500 mg/dL Performed By: #### L 500.4100, L500.2500, L501.2300, L501.5200 ####[facility] [address] [place], [address] MCV (mean corpuscular volume ) determinationOrdered By: Juju Vuong on 09-26-2024 MCV (RBC) [Entitic vol] 92.1 fL 80-94 [facility] MR/CON.PCM.NEon 09-26-2024 MR/CON.PCM.NE Normal [facility] Magnesiumon 09-26-2024 Magnesium [Mass/Vol] 2.0 mg/dL Normal 1.5-2.2 [facility] Comment on above: Order Comment: Comme nts: NPO at [place] prior to lipid panel Performed By: #### L 500.4100, L500.2500, L501.2300, L501.5200 ####[facility] [address] [place], [address] Magnesium measurement (mass/ volume)Ordered By: Juju Vuong on 09-26-2024 Magnesium (Unsp spec) [Mass/Vol] 2.0 mg/dL 1.5-2.2 [facility] Mean corpuscular hemoglobin (MCH) determinationOrdered By: Juju Vuong on 09-26-2024 MCH (RBC) [Entitic mass] 29.9 pg 27.0-32.0 [facility] Mean corpuscular hemoglobin concentration (MCHC) determinationOrdered By: Juju Vuong on 09-26-2024 MCHC (RBC) [Mass/Vol] 32.4 g/dL 32-36 [facility] Mean platelet volume determi nationOrdered By: Juju Vuong on 09-26-2024 Platelet mean volume (Bld) [Entitic vol] 11.6 fL 6.2-12.0 [facility] Phosphoruson 09-26-2024 Phosphate [Mass/Vol] 2.9 mg/dL Normal 2.7-4.5 [facility] Comment on above: Order Comment: Comme nts: NPO at [place] prior to lipid panel Performed By: #### L 500.4100, L500.2500, L501.2300, L501.5200 ####[facility] [address] [place], [address] Platelet countOrdered By: Benito Vuong on 09-26-2024 Platelets (Bld) [#/Vol] 141 10*3/uL Low 150-450 [facility] Potassium measurement (mass/ volume)Ordered By: Juju Vuong on 09-26-2024 Potassium (Unsp spec) [Mass/Vol] 4.4 mmol/L 3.3-5.1 [facility] Comment on above: Hemolysis present, R esults could be affected. RBC Auto (Bld) [#/Vol]Ordere d By: Juju Vuong on 09-26-2024 RBC (Bld) [#/Vol] 4.45 10*6/uL Low 4.6-6.2 [facility] Screening total cholesterol/ high density lipoprotein (HDL) cholesterol ratioOrdered By: Juju Vuong on 09-26-2024 Cholesterol.total/Chol esterol in HDL [Mass ratio] 2.99 {ratio} [facility] Serum creatinine measurement (mass/volume)Ordered By: Juju Vuong on 09-26-2024 Creatinine [Mass/Vol] 1.02 mg/dL 0.70-1.20 [facility] Serum glucose measurement (m ass/volume)Ordered By: Juju Vuong on 09-26-2024 Glucose [Mass/Vol] 90 mg/dL 70-99 [facility] Serum or plasma calcium patrick urement (mass/volume)Ordered By: Juju Vuong on 09-26-2024 Calcium [Mass/Vol] 8.6 mg/dL 7.6-11.0 [facility] Serum or plasma cholesterol in HDL measurement (mass/volume)Ordered By: Juju Vuong on 09-26-2024 Cholesterol in HDL [Mass/Vol] 59 mg/dL >40 [facility] Comment on above: National Cholesterol Education Program (NCEP) guidelines:<40 mg/dL: Low HDL-cholesterol (major risk factor for CHD)>= 60 mg/dL: High HDL-cholesterol (negative risk factor for CHD)HDL-cholesterol is affected by a number of factors, e.g. smoking, exercise, hormones, sex and age. Serum or plasma cholesterol measurement (mass/volume)Ordered By: Juju Vuong on 09-26-2024 Cholesterol [Mass/Vol] 176 mg/dL <201 [facility] Comment on above: Cholesterol level, D esirable <200 mg/dLBorderline high cholesterol 200-239 mg/dLHigh cholesterol >=240 mg/dLRecommendations of the NCEP Adult Treatment Panel for the following risk-cutoff thresholds for the [place] population. Serum or plasma urea nitroge n measurement (mass/volume)Ordered By: Juju Vuong on 09-26-2024 Urea nitrogen [Mass/Vol] 24 mg/dL High 4-19 [facility] Sodium levelOrdered By: Pili Vuong on 09-26-2024 Sodium [Moles/Vol] 140 mmol/L 133-145 [facility] Triglycerides measurementOrd ered By: Juju Vuong on 09-26-2024 Triglyceride [Mass/Vol] 73 mg/dL <199 [facility] Comment on above: The drugs N-Acetylcy steine and Metamizole may falsely depress this assay. Normal range: <150 mg/dLBorderline High: 150-199 mg/dLHigh: 200-499 mg/dLVery High: >500 mg/dL White blood cell (WBC) count Ordered By: Juju Vuong on 09-26-2024 WBC (Bld) [#/Vol] 10.1 10*3/uL 4.4-11.0 [facility] Absolute lymphocyte countOrd ered By: Gerardo Escalona on 09-25-2024 Lymphocytes Auto (Unsp spec) [#/Vol] 1.37 10*3/uL 0.83-4.51 [facility] Absolute neutrophil countOrd ered By: Gerardo Escalona on 09-25-2024 Neutrophils (Bld) [#/Vol] 9.2 10*3/uL High 2.0-7.7 [facility] Automated lymphocyte count a s percentage of total leukocytesOrdered By: Gerardo Escalona on 05-21-2025 Lymphocytes/100 WBC Auto (Unsp spec) 11.5 % Low 19-41 [facility] Basophil percentageOrdered B y: Gerardo Escalona on 09-25-2024 Basophils/100 WBC (Bld) 0.4 % 0-1 [facility] Bilirubin, totalOrdered By: Gerardo Escalona on 09-25-2024 Bilirubin [Mass/Vol] 0.79 mg/dL 0.00-1.30 [facility] Brain without Contraston Brain without Contrast Normal [facility] CBC W/Diff, Automatedon - Platelets (Bld) [#/Vol] 209 10*3/uL Normal 150-450 [facility] Comment on above: Performed By: #### L 100.0100, L501.2300, L501.9520, L500.4050 ####[facility] [address] [place], [address] Carotid Duplex Ultrasoundon 09-25-2024 Carotid Duplex Ultrasound Normal [facility] Comprehensive Metabolic Prof ilon 09-25-2024 Albumin [Mass/Vol] 3.3 g/dL Low 3.4-4.8 [facility] Comment on above: Performed By: #### L 100.0100, L501.2300, L501.9520, L500.4050 ####[facility] [address] [place], [address] Albumin/Globulin [Mass ratio] 1.1 {ratio} Normal 0.9-2.4 [facility] Comment on above: Performed By: #### L 100.0100, L501.2300, L501.9520, L500.4050 ####[facility] [address] [place], [address] ALK PHOS 70 U/L Normal 40-129 [facility] Comment on above: Performed By: #### L 100.0100, L501.2300, L501.9520, L500.4050 ####[facility] [address] [place], [address] ALT [Catalytic activity/Vol] 7 U/L Normal <=46 [facility] Comment on above: Performed By: #### L 100.0100, L501.2300, L501.9520, L500.4050 ####[facility] [address] [place], [address] AST [Catalytic activity/Vol] 17 U/L Normal <=37 [facility] Comment on above: Performed By: #### L 100.0100, L501.2300, L501.9520, L500.4050 ####[facility] [address] [place], [address] Bilirubin [Mass/Vol] 0.79 mg/dL Normal 0.00-1.30 [facility] Comment on above: Performed By: #### L 100.0100, L501.2300, L501.9520, L500.4050 ####[facility] [address] [place], [address] BUN/CRE 20.9 RATIO High 10-20 [facility] Comment on above: Performed By: #### L 100.0100, L501.2300, L501.9520, L500.4050 ####[facility] [address] [place], [address] Calcium [Mass/Vol] 8.7 mg/dL Normal 7.6-11.0 [facility] Comment on above: Performed By: #### L 100.0100, L501.2300, L501.9520, L500.4050 ####[facility] [address] [place], [address] Chloride [Moles/Vol] 110 mmol/L High 98-108 [facility] Comment on above: Performed By: #### L 100.0100, L501.2300, L501.9520, L500.4050 ####[facility] [address] [place], [address] CO2 [Moles/Vol] 20.3 mmol/L Low 21.0-32.0 [facility] Comment on above: Performed By: #### L 100.0100, L501.2300, L501.9520, L500.4050 ####[facility] [address] [place], [address] Creatinine [Mass/Vol] 0.96 mg/dL Normal 0.70-1.20 [facility] Comment on above: Performed By: #### L 100.0100, L501.2300, L501.9520, L500.4050 ####[facility] [address] [place], [address] ECRCL 41.05 ml/min Low 50-250 [facility] Comment on above: Performed By: #### L 100.0100, L501.2300, L501.9520, L500.4050 ####[facility] [address] [place], [address] GAP 11 Normal 5-15 [facility] Comment on above: Performed By: #### L 100.0100, L501.2300, L501.9520, L500.4050 ####[facility] [address] [place], [address] GFR/1.73 sq M.predicted among non-blacks MDRD (S/P/Bld) [Vol rate/Area] 76 mL/min/{1.73_m2} Normal >60 [facility] Comment on above: Result Comment: mL/m in/1.73m2 CKD-EPI Creatinine Equation (2020) Performed By: #### L 100.0100, L501.2300, L501.9520, L500.4050 ####[facility] [address] [place], [address] Globulin (S) [Mass/Vol] 2.9 g/dL Normal 2.2-4.2 [facility] Comment on above: Performed By: #### L 100.0100, L501.2300, L501.9520, L500.4050 ####[facility] [address] [place], [address] Glucose [Mass/Vol] 101 mg/dL High 70-99 [facility] Comment on above: Performed By: #### L 100.0100, L501.2300, L501.9520, L500.4050 ####[facility] [address] [place], [address] Potassium [Moles/Vol] 4.0 mmol/L Normal 3.3-5.1 [facility] Comment on above: Performed By: #### L 100.0100, L501.2300, L501.9520, L500.4050 ####[facility] [address] [place], [address] Sodium [Moles/Vol] 142 mmol/L Normal 133-145 [facility] Comment on above: Performed By: #### L 100.0100, L501.2300, L501.9520, L500.4050 ####[facility] [address] [place], [address] T PROT 6.2 g/dL Normal 5.9-8.4 [facility] Comment on above: Performed By: #### L 100.0100, L501.2300, L501.9520, L500.4050 ####[facility] [address] [place], [address] Urea nitrogen [Mass/Vol] 20 mg/dL High 4-19 [facility] Comment on above: Performed By: #### L 100.0100, L501.2300, L501.9520, L500.4050 ####[facility] [address] [place], [address] Echo Completeon 09-25-2024 Echo Complete Normal [facility] Eosinophil percentageOrdered By: Gerardo Escalona on 09-25-2024 Eosinophils/100 WBC (Bld) 3.3 % 0-5 [facility] Hemoglobin A1con 09-25-2024 HbA1c (Bld) [Mass fraction] 5.4 % Normal <=5.6 [facility] Comment on above: Result Comment: Norm al < 5.7 % Prediabetic 5.7 - 6.4 % Diabetic >or= 6.5 % Please note range changes. Performed By: #### L 501.9945 ####[facility] [address] [place], [place], [id number] Hemoglobin A1c percentageOrd ered By: Juju Vuong on 09-25-2024 HbA1c (Bld) [Mass fraction] 5.4 % <5.7 [facility] Comment on above: Normal < 5.7 % Predi abetic 5.7 - 6.4 % Diabetic >or= 6.5 % Please note range changes. Immature granulocytes/100 WB C Auto (Bld)Ordered By: Gerardo Escalona on 09-25-2024 Immature granulocytes/100 WBC (Bld) 0.700 % 0.0-0.9 [facility] Comment on above: IG% - Immature Granu locytes (promyelocytes, myelocytes and metamyelocytes) > 1% indicates that a LEFT SHIFT is Present. Laboratory - Chemistry and C hemistry - challengeOrdered By: Gerardo Escalona on 09-25-2024 AST [Catalytic activity/Vol] 17 U/L <38 [facility] Magnesiumon 09-25-2024 Magnesium [Mass/Vol] 2.1 mg/dL Normal 1.5-2.2 [facility] Comment on above: Performed By: #### L 501.5200 ####[facility] [address] [place], [place], [id number] Monocyte percentageOrdered B y: Gerardo Escalona on 09-25-2024 Monocytes/100 WBC (Bld) 7.3 % 0-10 [facility] Neutrophil percentageOrdered By: Gerardo Escalona on 09-25-2024 Neutrophils/100 WBC (Bld) 76.8 % High 47-70 [facility] Nucleated red blood cell per centageOrdered By: Gerardo Escalona on 09-25-2024 Nucleated RBC/100 WBC (Bld) [Ratio] 0 % 0-5 [facility] Phosphoruson 09-25-2024 Phosphate [Mass/Vol] 2.9 mg/dL Normal 2.7-4.5 [facility] Comment on above: Performed By: #### L 100.0100, L501.2300, L501.9520, L500.4050 ####[facility] [address] [place], [place], [id number] Serum globulin measurementOr dered By: Gerardo Escalona on 09-25-2024 Globulin (S) [Mass/Vol] 2.9 g/dL 2.2-4.2 [facility] Serum or plasma alanine orozco otransferase (ALT) measurementOrdered By: Gerardo Escalona on 09-25-2024 ALT [Catalytic activity/Vol] 7 U/L <47 [facility] Serum or plasma albumin patrick urement (mass/volume)Ordered By: Gerardo Escalona on 09-25-2024 Albumin [Mass/Vol] 3.3 g/dL Low 3.4-4.8 [facility] Serum or plasma albumin/glob ulin mass ratioOrdered By: Gerardo Escalona on 09-25-2024 Albumin/Globulin [Mass ratio] 1.1 {ratio} 0.9-2.4 [facility] Serum or plasma alkaline mei sphatase measurementOrdered By: Gerardo Escalona on 09-25-2024 ALP [Catalytic activity/Vol] 70 U/L 40-129 [facility] TSH DL <= 0.005 mIU/L QnOrde red By: Gerardo Escalona on 09-25-2024 TSH Qn 0.490 uIU/mL 0.300-4.20 0 [facility] Thyroid Stim Hormone (TSH)on 09-25-2024 TSH 0.490 uIU/mL Normal 0.300-4.20 0 [facility] Comment on above: Performed By: #### L 100.0100, L501.2300, L501.9520, L500.4050 ####[facility] [address] [place], [address] Total proteinOrdered By: Bernard evans Pola on 09-25-2024 Protein [Mass/Vol] 6.2 g/dL 5.9-8.4 [facility] Vitamin D,25 Hydroxyon 09-25 Vitamin D 25-OH 9.4 ng/mL Low 30-100 [facility] Comment on above: Result Comment: Layne min D StatusDeficiency: <20 ng/mL (50nmol/L)Insufficiency: 20-30 ng/mL (50-75 nmol/L)Sufficiency: 30-100 ng/mL (75-250 nmol/L)Toxicity: >100 ng/mL (>250 nmol/L) Performed By: #### L 506.1001 ####[facility] [address] [place], [place], [id number] Lead EKGon 09-24-2024 12 Lead EKG Normal [facility] Absolute lymphocyte countOrd ered By: Gerardo Duque on 09-24-2024 Lymphocytes Auto (Unsp spec) [#/Vol] 1.55 10*3/uL 0.83-4.51 [facility] Absolute neutrophil countOrd ered By: Gerardo Duque on 09-24-2024 Neutrophils (Bld) [#/Vol] 8.5 10*3/uL High 2.0-7.7 [facility] Anion gap in Serum or Plasma Ordered By: Gerardo Duque on 09-24-2024 Anion gap [Moles/Vol] 10 mmol/L 5-15 [facility] Automated lymphocyte count a s percentage of total leukocytesOrdered By: Gerardo Duque on 09-24-2024 Lymphocytes/100 WBC Auto (Unsp spec) 13.3 % Low 19-41 [facility] BUN/creatinine ratioOrdered By: Gerardo Duque on 09-24-2024 Urea nitrogen/Creatinine [Mass ratio] 19.6 mg/mg 10-20 [facility] Basic Metabolic Profile (BMP )on 09-24-2024 BUN/CRE 19.6 RATIO Normal 10-20 [facility] Comment on above: Performed By: #### L 100.0100, L500.2500 ####[facility] [address] [place], [address] Calcium [Mass/Vol] 9.2 mg/dL Normal 7.6-11.0 [facility] Comment on above: Performed By: #### L 100.0100, L500.2500 ####[facility] [address] [place], [address] Chloride [Moles/Vol] 108 mmol/L Normal 98-108 [facility] Comment on above: Performed By: #### L 100.0100, L500.2500 ####[facility] [address] [place], [address] CO2 [Moles/Vol] 24.8 mmol/L Normal 21.0-32.0 [facility] Comment on above: Performed By: #### L 100.0100, L500.2500 ####[facility] [address] [place], [address] Creatinine [Mass/Vol] 1.21 mg/dL High 0.70-1.20 [facility] Comment on above: Performed By: #### L 100.0100, L500.2500 ####[facility] [address] [place], [address] ECRCL 36.71 ml/min Low 50-250 [facility] Comment on above: Performed By: #### L 100.0100, L500.2500 ####[facility] [address] [place], [address] GAP 10 Normal 5-15 [facility] Comment on above: Performed By: #### L 100.0100, L500.2500 ####[facility] [address] [place], [address] GFR/1.73 sq M.predicted among non-blacks MDRD (S/P/Bld) [Vol rate/Area] 58 mL/min/{1.73_m2} Low >60 [facility] Comment on above: Result Comment: mL/m in/1.73m2 CKD-EPI Creatinine Equation (2020) Performed By: #### L 100.0100, L500.2500 ####[facility] [address] [place], [address] Glucose [Mass/Vol] 105 mg/dL High 70-99 [facility] Comment on above: Performed By: #### L 100.0100, L500.2500 ####[facility] [address] [place], [address] Potassium [Moles/Vol] 4.4 mmol/L Normal 3.3-5.1 [facility] Comment on above: Result Comment: Hemo lysis present, Results??could be affected.?? Performed By: #### L 100.0100, L500.2500 ####[facility] [address] [place], [address] Sodium [Moles/Vol] 143 mmol/L Normal 133-145 [facility] Comment on above: Performed By: #### L 100.0100, L500.2500 ####[facility] [address] [place], [address] Urea nitrogen [Mass/Vol] 24 mg/dL High 4-19 [facility] Comment on above: Performed By: #### L 100.0100, L500.2500 ####[facility] [address] [place], [address] Basophil percentageOrdered B y: Gerardo Duque on 09-24-2024 Basophils/100 WBC (Bld) 0.4 % 0-1 [facility] Bilirubin Test strip Ql (U)O rdered By: Gerardo Duque on 09-24-2024 Bilirubin Ql (U) Negative Negative [facility] CBC W/Diff, Automatedon 05-2 0-2024 Absolute Lymph 1.55 X10 3/uL Normal 0.83-4.51 [facility] Comment on above: Performed By: #### L 100.0100, L500.2500 ####[facility] [address] [place], [address] Absolute Neut 8.5 X10 3/uL High 2.0-7.7 [facility] Comment on above: Performed By: #### L 100.0100, L500.2500 ####[facility] [address] [place], [address] Basophils/100 WBC (Bld) 0.4 % Normal 0-1 [facility] Comment on above: Performed By: #### L 100.0100, L500.2500 ####[facility] [address] [place], [address] Eosinophils/100 WBC (Bld) 5.8 % High 0-5 [facility] Comment on above: Performed By: #### L 100.0100, L500.2500 ####[facility] [address] [place], [address] Erythrocyte distribution width (RBC) [Ratio] 14.6 % Normal 11.6-14.6 [facility] Comment on above: Performed By: #### L 100.0100, L500.2500 ####[facility] [address] [place], [address] Hematocrit (Bld) [Volume fraction] 42.7 % Normal 40-54 [facility] Comment on above: Performed By: #### L 100.0100, L500.2500 ####[facility] [address] [place], [address] Hemoglobin (Bld) [Mass/Vol] 14.1 g/dL Normal 13.0-16.5 [facility] Comment on above: Performed By: #### L 100.0100, L500.2500 ####[facility] [address] [place], [address] IG% 1.100 High 0.0-0.9 [facility] Comment on above: Result Comment: IG% - Immature Granulocytes (promyelocytes, myelocytes andmetamyelocytes) > 1% indicates that a LEFT SHIFT is Present. Performed By: #### L 100.0100, L500.2500 ####[facility] [address] [place], [address] Lymphocytes/100 WBC (Bld) 13.3 % Low 19-41 [facility] Comment on above: Performed By: #### L 100.0100, L500.2500 ####[facility] [address] [place], [address] MCH (RBC) [Entitic mass] 30.1 pg Normal 27.0-32.0 [facility] Comment on above: Performed By: #### L 100.0100, L500.2500 ####[facility] [address] [place], [address] MCHC (RBC) [Mass/Vol] 33.0 g/dL Normal 32-36 [facility] Comment on above: Performed By: #### L 100.0100, L500.2500 ####[facility] [address] [place], [address] MCV (RBC) [Entitic vol] 91.0 fL Normal 80-94 [facility] Comment on above: Performed By: #### L 100.0100, L500.2500 ####[facility] [address] [place], [address] Monocytes/100 WBC (Bld) 6.5 % Normal 0-10 [facility] Comment on above: Performed By: #### L 100.0100, L500.2500 ####[facility] [address] [place], [address] Neutrophils/100 WBC (Bld) 72.9 % High 47-70 [facility] Comment on above: Performed By: #### L 100.0100, L500.2500 ####[facility] [address] [place], [address] Nucleated RBC (Bld) [#/Vol] 0 10*3/uL Normal 0-5 [facility] Comment on above: Performed By: #### L 100.0100, L500.2500 ####[facility] [address] [place], [address] Platelet mean volume (Bld) [Entitic vol] 11.2 fL Normal 6.2-12.0 [facility] Comment on above: Performed By: #### L 100.0100, L500.2500 ####[facility] [address] [place], [address] Platelets (Bld) [#/Vol] 203 10*3/uL Normal 150-450 [facility] Comment on above: Performed By: #### L 100.0100, L500.2500 ####[facility] [address] [place], [address] RBC (Bld) [#/Vol] 4.69 10*6/uL Normal 4.6-6.2 [facility] Comment on above: Performed By: #### L 100.0100, L500.2500 ####[facility] [address] [place], [address] RDW SD 49.0 fl High 35.1-43.9 [facility] Comment on above: Performed By: #### L 100.0100, L500.2500 ####[facility] [address] [place], [address] WBC (Bld) [#/Vol] 11.7 10*3/uL High 4.4-11.0 [facility] Comment on above: Performed By: #### L 100.0100, L500.2500 ####[facility] [address] [place], [address] Carbon dioxide, total [Moles /volume] in Central venous bloodOrdered By: Gerardo Duque on 09-24-2024 CO2 [Moles/Vol] 24.8 mmol/L 21.0-32.0 [facility] Chloride assayOrdered By: Arvind Duque on 09-24-2024 Chloride [Moles/Vol] 108 mmol/L 98-108 [facility] Emergency Department Summary on 09-24-2024 Emergency Department Summary Normal [facility] Eosinophil percentageOrdered By: Gerardo Duque on 09-24-2024 Eosinophils/100 WBC (Bld) 5.8 % High 0-5 [facility] Erythrocyte distribution wid th ratioOrdered By: Gerardo Duque on 09-24-2024 Erythrocyte distribution width (RBC) [Ratio] 14.6 % 11.6-14.6 [facility] Erythrocyte distribution wid th standard deviationOrdered By: Gerardo Duque on 09-24-2024 Erythrocyte distribution width (RBC) [Ratio] 49.0 fl High 35.1-43.9 [facility] Glomerular filtration rate ( GFR) estimation/1.73 sq m using serum, plasma, or whole bOrdered By: Gerardo Duque on 09-24-2024 GFR/1.73 sq M.predicted among non-blacks MDRD (S/P/Bld) [Vol rate/Area] 58 mL/min/{1.73_m2} Low >60 [facility] Comment on above: mL/min/1.73m2 CKD-EP I Creatinine Equation (2020) H AND P Exam - [place] 09-24-2024 H&P Exam - Hospitalist Normal [facility] HIP, UNI W/ Pelvis 2-3 Views on 09-24-2024 HIP, UNI W/ Pelvis 2-3 Views Normal [facility] Hematocrit Auto (Bld) [Volum e fraction]Ordered By: Gerardo Duque on 09-24-2024 Hematocrit (Bld) [Volume fraction] 42.7 % 40-54 [facility] Hemoglobin measurementOrdere d By: Gerardo Duque on 09-24-2024 Hemoglobin (Bld) [Mass/Vol] 14.1 g/dL 13.0-16.5 [facility] Immature granulocytes/100 WB C Auto (Bld)Ordered By: Gerardo Duque on 09-24-2024 Immature granulocytes/100 WBC (Bld) 1.100 % High 0.0-0.9 [facility] Comment on above: IG% - Immature Granu locytes (promyelocytes, myelocytes and metamyelocytes) > 1% indicates that a LEFT SHIFT is Present. Ketones Test strip Ql (U)Ord ered By: Gerardo Duque on 09-24-2024 Ketones Ql (U) 15 mg/dl High Negative [facility] MCV (mean corpuscular volume ) determinationOrdered By: Gerardo Duque on 09-24-2024 MCV (RBC) [Entitic vol] 91.0 fL 80-94 [facility] Magnesium measurement (mass/ volume)Ordered By: Gerardo Escalona on 09-24-2024 Magnesium (Unsp spec) [Mass/Vol] 2.1 mg/dL 1.5-2.2 [facility] Mean corpuscular hemoglobin (MCH) determinationOrdered By: Gerardo Duque on 09-24-2024 MCH (RBC) [Entitic mass] 30.1 pg 27.0-32.0 [facility] Mean corpuscular hemoglobin concentration (MCHC) determinationOrdered By: Gerardo Duque on 09-24-2024 MCHC (RBC) [Mass/Vol] 33.0 g/dL 32-36 [facility] Mean platelet volume determi nationOrdered By: Gerardo Duque on 09-24-2024 Platelet mean volume (Bld) [Entitic vol] 11.2 fL 6.2-12.0 [facility] Microscopic analysis of urin e for red blood cells (RBC)Ordered By: Gerardo Duque on 09-24-2024 Microscopic analysis of urine for red blood cells (RBC) 0-5 SEEN /hpf 0-5 [facility] Monocyte percentageOrdered B y: Gerardo Duque on 09-24-2024 Monocytes/100 WBC (Bld) 6.5 % 0-10 [facility] Mucus LM Ql (Urine sed)Order ed By: Gerardo Duque on 09-24-2024 Mucus Ql (Urine sed) 0 SEEN /hpf [facility] Neutrophil percentageOrdered By: Gerardo Duque on 09-24-2024 Neutrophils/100 WBC (Bld) 72.9 % High 47-70 [facility] Nitrite Test strip Ql (U)Ord ered By: Gerardo Duque on 09-24-2024 Nitrite Ql (U) Negative Negative [facility] Nucleated red blood cell per centageOrdered By: Gerardo Duque on 09-24-2024 Nucleated RBC/100 WBC (Bld) [Ratio] 0 % 0-5 [facility] Pelvis without IV Contraston 09-24-2024 Pelvis without IV Contrast Normal [facility] Platelet countOrdered By: Arvind Duque on 09-24-2024 Platelets (Bld) [#/Vol] 203 10*3/uL 150-450 [facility] Potassium measurement (mass/ volume)Ordered By: Gerardo Duque on 09-24-2024 Potassium (Unsp spec) [Mass/Vol] 4.4 mmol/L 3.3-5.1 [facility] Comment on above: Hemolysis present, R esults could be affected. Protein Test strip Ql (U)Ord ered By: Gerardo Duque on 09-24-2024 Protein Ql (U) 30 mg/dl High Negative [facility] RBC Auto (Bld) [#/Vol]Ordere d By: Gerardo Duque on 09-24-2024 RBC (Bld) [#/Vol] 4.69 10*6/uL 4.6-6.2 [facility] Serum creatinine measurement (mass/volume)Ordered By: Gerardo Duque on 09-24-2024 Creatinine [Mass/Vol] 1.21 mg/dL High 0.70-1.20 [facility] Serum glucose measurement (m ass/volume)Ordered By: Gerardo Duque on 09-24-2024 Glucose [Mass/Vol] 105 mg/dL High 70-99 [facility] Serum or plasma calcium patrick urement (mass/volume)Ordered By: Gerardo Duque on 09-24-2024 Calcium [Mass/Vol] 9.2 mg/dL 7.6-11.0 [facility] Serum or plasma urea nitroge n measurement (mass/volume)Ordered By: Gerardo Duque on 05-20-2025 Urea nitrogen [Mass/Vol] 24 mg/dL High 4-19 [facility] Sodium levelOrdered By: Gerardo Duque on 09-24-2024 Sodium [Moles/Vol] 143 mmol/L 133-145 [facility] Squamous epithelial cells de tection in urine sediment by light microscopyOrdered By: Gerardo Duque on 09-24-2024 Epithelial cells.squamous LM Ql (Urine sed) 0-5 SEEN /hpf 0-5 [facility] Urinalysis, Completeon 09-24 EPI,SQUAMOUS 0-5 SEEN Normal 0-5 [facility] Comment on above: Order Comment: CLEAN CATCH Performed By: #### L 400.0001 ####[facility] [address] [facility] [address] RBC 0-5 SEEN Normal 0-5 [facility] Comment on above: Order Comment: CLEAN CATCH Performed By: #### L 400.0001 ####[facility] [address] [facility] [address] WBC 0-5 SEEN Normal 0-5 [facility] Comment on above: Order Comment: CLEAN CATCH Performed By: #### L 400.0001 ####[facility] [address] [facility] [address] BACTERIA 0 SEEN Normal None Seen [facility] Comment on above: Order Comment: CLEAN CATCH Performed By: #### L 400.0001 ####[facility] [address] [facility] [address] Mucus Ql (Urine sed) 0 SEEN Normal [facility] Comment on above: Order Comment: CLEAN CATCH Performed By: #### L 400.0001 ####[facility] [address] [facility] [address] Urine clarityOrdered By: Jeremias Duque on 09-24-2024 Clarity (U) Clear Clear [facility] Urine color determinationOrd ered By: Gerardo Duque on 09-24-2024 Color (U) Yellow Yellow [facility] Urine glucose detectionOrder ed By: Gerardo Duque on 09-24-2024 Glucose Ql (U) Normal mg/dl Normal [facility] Urine leukocyte esterase det ection by dipstickOrdered By: Gerardo Duque on 09-24-2024 Leukocyte esterase Test strip Ql (U) Negative Negative [facility] Urine pHOrdered By: Gerardo Duque on 09-24-2024 pH (U) 6.5 [pH] 5.0 - 8.0 [facility] Urine sediment bacteria coun t by microscopy (number/high power field)Ordered By: Gerardo Duque on 09-24-2024 Bacteria LM.HPF (Urine sed) [#/Area] 0 /[HPF] None Seen [facility] Urine specific gravity measu rementOrdered By: Gerardo Duque on 09-24-2024 Specific gravity (U) [Rel density] 1.015 1.002-1.03 0 [facility] Urine urobilinogen measureme ntOrdered By: Gerardo Duque on 09-24-2024 Urobilinogen Ql (U) 1 mg/dl High Normal [facility] White blood cell (WBC) count Ordered By: Gerardo Duque on 09-24-2024 WBC (Bld) [#/Vol] 11.7 10*3/uL High 4.4-11.0 [facility] White blood cell countOrdere d By: Gerardo Duque on 09-24-2024 White blood cell count 0-5 SEEN /hpf 0-5 [facility] CNOVon 09-19-2024 CNOV Office Visit (INTMWS ) -- AYESHA JACOBSEN ([id number]) 1935 M Date Time Provider Department 09/19/24 9:40 AM NIMISHA OSEGUERA INTMaria Del RosarioWS During your visit today, we recorded the [...] excuse any unintended typographical errors. Recording using [employer] software for draft documentation of the visit was discussed with the patient/authorized business representative; all questions welcomed and answered. Patient/authorized business representative agreed to proceed Nimisha Tim MD, MD 09/19/2024 10:20 AM Signed We discussed your [...] a uro (more content not included)... Normal [facility] PSA/PROSTATE SPECIFIC ANTIGE N SCREENINGon 09-19-2024 Prostate specific Ag [Mass/Vol] 9.22 ng/mL High <2.60 [facility] Comment on above: Order Comment: Speci men Type: BLOOD SPECIMENOrdering Facility: [facility] Address: [address] [place] [address] Result Comment: Gilberta desiree PSA test methodology used is the [...] Ph.D., Lester Qureshi M.D., Tia Garcia, M.P.H., Fatimah Arceo, Sc.D. Effect of Verification Bias on Screening for Prostate Cancer by Measurement of Prostatic Specific Antigen. N Engl J Med 2003,349:335-42. Performed By: #### P SAS1 ####[facility] LABCLIA [id number] [place] [address] [place] CNOVon 09-02-2024 CNOV Office Visit (INTMWS ) -- AYESHA JACOBSEN ([id number]) 1935 M Date Time Provider Department 4/28/25 3:40 PM NIMISHA OSEGUERA During your visit today, we recorded the [...] multiple falls, including a recent [place] where he injured his knee. He attributes [...] - Tdap) (more content not included)... Normal [facility] CNPNon 08-28-2024 [facility] Telephone (INTMWS) -- AYESHA JACOBSEN ([id number]) 1935 M Date Time Provider Department 08/28/24 NIMISHA OSEGUERA INTMWS During your visit today, we recorded the following information about you: Brigid Suarez MA 08/28/2024 10:40 AM Signed Patient requesting if Dr Oseguera is willing to take on as PCP? Took on last week, parents of Shay. Please advise Nimisha Oseguera MD 08/29/2024 4:00 PM Signed Yes, will take on RegardsNimisha MD Allergies As of Date: 08/28/2024 Noted Allergy Reaction EGGS (EGG) 12/14/2015 4 - Hives 12 - Shortness of Breath Date Reviewed: 03/27/2024 Reviewed by: Mary Lynn, AYLEEN.HAND CELL TUBER - Fully Assessed Prescriptions as of 08/30/2024 [...] Status:Closed by BRIGID SUAREZ on 08/30/24 Normal [facility] Basic Metabolic Profile (BMP )on 04-17-2024 BUN Normal -18 [facility] Comment on above: Result Comment: Canc elled via OM: Order cancelled - Patient discharged Performed By: #### L 100.0100, L500.2500 ####[facility] [address] [place], [address] BUN/CRE Normal 10- [facility] Comment on above: Result Comment: Canc elled via OM: Order cancelled - Patient discharged Performed By: #### L 100.0100, L500.2500 ####[facility] [address] [place], [address] CA,Total Normal 8.5-10.1 [facility] Comment on above: Result Comment: Canc elled via OM: Order cancelled - Patient discharged Performed By: #### L 100.0100, L500.2500 ####[facility] [address] [place], [address] CL Normal 98-107 [facility] Comment on above: Result Comment: Canc elled via OM: Order cancelled - Patient discharged Performed By: #### L 100.0100, L500.2500 ####[facility] [address] [place], [address] CO2 Normal 21.0-32.0 [facility] Comment on above: Result Comment: Canc elled via OM: Order cancelled - Patient discharged Performed By: #### L 100.0100, L500.2500 ####[facility] [address] [place], [address] CREAT,SERUM Normal 0.70-1.30 [facility] Comment on above: Result Comment: Canc elled via OM: Order cancelled - Patient discharged Performed By: #### L 100.0100, L500.2500 ####[facility] [address] [place], [address] EST GFR Normal >60 [facility] Comment on above: Result Comment: Canc elled via OM: Order cancelled - Patient discharged Performed By: #### L 100.0100, L500.2500 ####[facility] [address] [place], [address] EST GFR - AA Normal >60 [facility] Comment on above: Result Comment: Canc elled via OM: Order cancelled - Patient discharged Performed By: #### L 100.0100, L500.2500 ####[facility] [address] [place], [address] GAP Normal 5-15 [facility] Comment on above: Result Comment: Canc elled via OM: Order cancelled - Patient discharged Performed By: #### L 100.0100, L500.2500 ####[facility] [address] [place], [address] GLU Normal 74-106 [facility] Comment on above: Result Comment: Canc elled via OM: Order cancelled - Patient discharged Performed By: #### L 100.0100, L500.2500 ####[facility] [address] [place], [address] Potassium Normal 3.5-5.1 [facility] Comment on above: Result Comment: Canc elled via OM: Order cancelled - Patient discharged Performed By: #### L 100.0100, L500.2500 ####[facility] [address] [place], [address] Basic Metabolic Profile (BMP) Normal 136-145 [facility] Comment on above: Result Comment: Canc elled via OM: Order cancelled - Patient discharged Performed By: #### L 100.0100, L500.2500 ####[facility] [address] [place], [address] CBC W/Diff, Automatedon 12-1 Absolute Neut Normal 2.0-7.7 [facility] Comment on above: Result Comment: Canc elled via OM: Order cancelled - Patient discharged Performed By: #### L 100.0100, L500.2500 ####[facility] [address] [place], [address] HCT Normal 40-54 [facility] Comment on above: Result Comment: Canc elled via OM: Order cancelled - Patient discharged Performed By: #### L 100.0100, L500.2500 ####[facility] [address] [place], [address] HGB Normal 13.0-16.5 [facility] Comment on above: Result Comment: Canc elled via OM: Order cancelled - Patient discharged Performed By: #### L 100.0100, L500.2500 ####[facility] [address] [place], [address] MCH Normal 27.0-32.0 [facility] Comment on above: Result Comment: Canc elled via OM: Order cancelled - Patient discharged Performed By: #### L 100.0100, L500.2500 ####[facility] [address] [place], [address] MCHC Normal 32-36 [facility] Comment on above: Result Comment: Canc elled via OM: Order cancelled - Patient discharged Performed By: #### L 100.0100, L500.2500 ####[facility] [address] [place], [address] MCV Normal 80-94 [facility] Comment on above: Result Comment: Canc elled via OM: Order cancelled - Patient discharged Performed By: #### L 100.0100, L500.2500 ####[facility] [address] [place], [address] NEUT% Normal 47-70 [facility] Comment on above: Result Comment: Canc elled via OM: Order cancelled - Patient discharged Performed By: #### L 100.0100, L500.2500 ####[facility] [address] [place], [address] PLT Normal 150-450 [facility] Comment on above: Result Comment: Canc elled via OM: Order cancelled - Patient discharged Performed By: #### L 100.0100, L500.2500 ####[facility] [address] [place], [address] RBC Normal 4.6-6.2 [facility] Comment on above: Result Comment: Canc elled via OM: Order cancelled - Patient discharged Performed By: #### L 100.0100, L500.2500 ####[facility] [address] [place], [address] RDW CV Normal 11.6-14.6 [facility] Comment on above: Result Comment: Canc elled via OM: Order cancelled - Patient discharged Performed By: #### L 100.0100, L500.2500 ####[facility] [address] [place], [address] RDW SD Normal 35.1-43.9 [facility] Comment on above: Result Comment: Canc elled via OM: Order cancelled - Patient discharged Performed By: #### L 100.0100, L500.2500 ####[facility] [address] [place], [address] WBC Normal 4.4-11.0 [facility] Comment on above: Result Comment: Canc elled via OM: Order cancelled - Patient discharged Performed By: #### L 100.0100, L500.2500 ####[facility] [address] [place], [address] Basic Metabolic Profile (BMP )on 04-10-2024 BUN Normal 7-18 [facility] Comment on above: Result Comment: Canc elled via OM: Order cancelled - Patient discharged Performed By: #### L 100.0100, L500.2500 ####[facility] [address] [place], [address] BUN/CRE Normal 10-20 [facility] Comment on above: Result Comment: Canc elled via OM: Order cancelled - Patient discharged Performed By: #### L 100.0100, L500.2500 ####[facility] [address] [place], [address] CA,Total Normal 8.5-10.1 [facility] Comment on above: Result Comment: Canc elled via OM: Order cancelled - Patient discharged Performed By: #### L 100.0100, L500.2500 ####[facility] [address] [place], [address] CL Normal 98-107 [facility] Comment on above: Result Comment: Canc elled via OM: Order cancelled - Patient discharged Performed By: #### L 100.0100, L500.2500 ####[facility] [address] [place], [address] CO2 Normal 21.0-32.0 [facility] Comment on above: Result Comment: Canc elled via OM: Order cancelled - Patient discharged Performed By: #### L 100.0100, L500.2500 ####[facility] [address] [place], [address] CREAT,SERUM Normal 0.70-1.30 [facility] Comment on above: Result Comment: Canc elled via OM: Order cancelled - Patient discharged Performed By: #### L 100.0100, L500.2500 ####[facility] [address] [place], [address] EST GFR Normal >60 [facility] Comment on above: Result Comment: Canc elled via OM: Order cancelled - Patient discharged Performed By: #### L 100.0100, L500.2500 ####[facility] [address] [place], [address] EST GFR - AA Normal >60 [facility] Comment on above: Result Comment: Canc elled via OM: Order cancelled - Patient discharged Performed By: #### L 100.0100, L500.2500 ####[facility] [address] [place], [address] GAP Normal 5-15 [facility] Comment on above: Result Comment: Canc elled via OM: Order cancelled - Patient discharged Performed By: #### L 100.0100, L500.2500 ####[facility] [address] [place], [address] GLU Normal 74-106 [facility] Comment on above: Result Comment: Canc elled via OM: Order cancelled - Patient discharged Performed By: #### L 100.0100, L500.2500 ####[facility] [address] [place], [address] Potassium Normal 3.5-5.1 [facility] Comment on above: Result Comment: Canc elled via OM: Order cancelled - Patient discharged Performed By: #### L 100.0100, L500.2500 ####[facility] [address] [place], [address] Basic Metabolic Profile (BMP) Normal 136-145 [facility] Comment on above: Result Comment: Canc elled via OM: Order cancelled - Patient discharged Performed By: #### L 100.0100, L500.2500 ####[facility] [address] [place], [address] CBC W/Diff, Automatedon 12-0 Absolute Neut Normal 2.0-7.7 [facility] Comment on above: Result Comment: Canc elled via OM: Order cancelled - Patient discharged Performed By: #### L 100.0100, L500.2500 ####[facility] [address] [place], [address] HCT Normal 40-54 [facility] Comment on above: Result Comment: Canc elled via OM: Order cancelled - Patient discharged Performed By: #### L 100.0100, L500.2500 ####[facility] [address] [place], [address] HGB Normal 13.0-16.5 [facility] Comment on above: Result Comment: Canc elled via OM: Order cancelled - Patient discharged Performed By: #### L 100.0100, L500.2500 ####[facility] [address] [place], [address] MCH Normal 27.0-32.0 [facility] Comment on above: Result Comment: Canc elled via OM: Order cancelled - Patient discharged Performed By: #### L 100.0100, L500.2500 ####[facility] [address] [place], [address] MCHC Normal 32-36 [facility] Comment on above: Result Comment: Canc elled via OM: Order cancelled - Patient discharged Performed By: #### L 100.0100, L500.2500 ####[facility] [address] [place], [address] MCV Normal 80-94 [facility] Comment on above: Result Comment: Canc elled via OM: Order cancelled - Patient discharged Performed By: #### L 100.0100, L500.2500 ####[facility] [address] [place], [address] NEUT% Normal 47-70 [facility] Comment on above: Result Comment: Canc elled via OM: Order cancelled - Patient discharged Performed By: #### L 100.0100, L500.2500 ####[facility] [address] [place], [address] PLT Normal 150-450 [facility] Comment on above: Result Comment: Canc elled via OM: Order cancelled - Patient discharged Performed By: #### L 100.0100, L500.2500 ####[facility] [address] [place], [address] RBC Normal 4.6-6.2 [facility] Comment on above: Result Comment: Canc elled via OM: Order cancelled - Patient discharged Performed By: #### L 100.0100, L500.2500 ####[facility] [address] [place], [address] RDW CV Normal 11.6-14.6 [facility] Comment on above: Result Comment: Canc elled via OM: Order cancelled - Patient discharged Performed By: #### L 100.0100, L500.2500 ####[facility] [address] [place], [address] RDW SD Normal 35.1-43.9 [facility] Comment on above: Result Comment: Canc elled via OM: Order cancelled - Patient discharged Performed By: #### L 100.0100, L500.2500 ####[facility] [address] [place], [address] WBC Normal 4.4-11.0 [facility] Comment on above: Result Comment: Canc elled via OM: Order cancelled - Patient discharged Performed By: #### L 100.0100, L500.2500 ####[facility] [address] [place], [address] OT D/C of Non Returning Pton 04-10-2024 OT D/C of Non Returning Pt Normal [facility] Basic Metabolic Profile (BMP )on 04-03-2024 BUN Normal 7-18 [facility] Comment on above: Result Comment: Canc elled via OM: Order cancelled - Patient discharged Performed By: #### L 100.0100, L500.2500 ####[facility] [address] [place], [address] BUN/CRE Normal 10-20 [facility] Comment on above: Result Comment: Canc elled via OM: Order cancelled - Patient discharged Performed By: #### L 100.0100, L500.2500 ####[facility] [address] [place], [address] CA,Total Normal 8.5-10.1 [facility] Comment on above: Result Comment: Canc elled via OM: Order cancelled - Patient discharged Performed By: #### L 100.0100, L500.2500 ####[facility] [address] [place], [address] CL Normal 98-107 [facility] Comment on above: Result Comment: Canc elled via OM: Order cancelled - Patient discharged Performed By: #### L 100.0100, L500.2500 ####[facility] [address] [place], [address] CO2 Normal 21.0-32.0 [facility] Comment on above: Result Comment: Canc elled via OM: Order cancelled - Patient discharged Performed By: #### L 100.0100, L500.2500 ####[facility] [address] [place], [address] CREAT,SERUM Normal 0.70-1.30 [facility] Comment on above: Result Comment: Canc elled via OM: Order cancelled - Patient discharged Performed By: #### L 100.0100, L500.2500 ####[facility] [address] [place], [address] EST GFR Normal >60 [facility] Comment on above: Result Comment: Canc elled via OM: Order cancelled - Patient discharged Performed By: #### L 100.0100, L500.2500 ####[facility] [address] [place], [address] EST GFR - AA Normal >60 [facility] Comment on above: Result Comment: Canc elled via OM: Order cancelled - Patient discharged Performed By: #### L 100.0100, L500.2500 ####[facility] [address] [place], [address] GAP Normal 5-15 [facility] Comment on above: Result Comment: Canc elled via OM: Order cancelled - Patient discharged Performed By: #### L 100.0100, L500.2500 ####[facility] [address] [place], [address] GLU Normal 74-106 [facility] Comment on above: Result Comment: Canc elled via OM: Order cancelled - Patient discharged Performed By: #### L 100.0100, L500.2500 ####[facility] [address] [place], [address] Potassium Normal 3.5-5.1 [facility] Comment on above: Result Comment: Canc elled via OM: Order cancelled - Patient discharged Performed By: #### L 100.0100, L500.2500 ####[facility] [address] [place], [address] Basic Metabolic Profile (BMP) Normal 136-145 [facility] Comment on above: Result Comment: Canc elled via OM: Order cancelled - Patient discharged Performed By: #### L 100.0100, L500.2500 ####[facility] [address] [place], [address] CBC W/Diff, Automatedon 11-2 -2023 Absolute Neut Normal 2.0-7.7 [facility] Comment on above: Result Comment: Canc elled via OM: Order cancelled - Patient discharged Performed By: #### L 100.0100, L500.2500 ####[facility] [address] [place], [address] HCT Normal 40-54 [facility] Comment on above: Result Comment: Canc elled via OM: Order cancelled - Patient discharged Performed By: #### L 100.0100, L500.2500 ####[facility] [address] [place], [address] HGB Normal 13.0-16.5 [facility] Comment on above: Result Comment: Canc elled via OM: Order cancelled - Patient discharged Performed By: #### L 100.0100, L500.2500 ####[facility] [address] [place], [address] MCH Normal 27.0-32.0 [facility] Comment on above: Result Comment: Canc elled via OM: Order cancelled - Patient discharged Performed By: #### L 100.0100, L500.2500 ####[facility] [address] [place], [address] MCHC Normal 32-36 [facility] Comment on above: Result Comment: Canc elled via OM: Order cancelled - Patient discharged Performed By: #### L 100.0100, L500.2500 ####[facility] [address] [place], [address] MCV Normal 80-94 [facility] Comment on above: Result Comment: Canc elled via OM: Order cancelled - Patient discharged Performed By: #### L 100.0100, L500.2500 ####[facility] [address] [place], [address] NEUT% Normal 47-70 [facility] Comment on above: Result Comment: Canc elled via OM: Order cancelled - Patient discharged Performed By: #### L 100.0100, L500.2500 ####[facility] [address] [place], [address] PLT Normal 150-450 [facility] Comment on above: Result Comment: Canc elled via OM: Order cancelled - Patient discharged Performed By: #### L 100.0100, L500.2500 ####[facility] [address] [place], [address] RBC Normal 4.6-6.2 [facility] Comment on above: Result Comment: Canc elled via OM: Order cancelled - Patient discharged Performed By: #### L 100.0100, L500.2500 ####[facility] [address] [place], [address] RDW CV Normal 11.6-14.6 [facility] Comment on above: Result Comment: Canc elled via OM: Order cancelled - Patient discharged Performed By: #### L 100.0100, L500.2500 ####[facility] [address] [place], [address] RDW SD Normal 35.1-43.9 [facility] Comment on above: Result Comment: Canc elled via OM: Order cancelled - Patient discharged Performed By: #### L 100.0100, L500.2500 ####[facility] [address] [place], [address] WBC Normal 4.4-11.0 [facility] Comment on above: Result Comment: Canc elled via OM: Order cancelled - Patient discharged Performed By: #### L 100.0100, L500.2500 ####[facility] [address] [place], [address] Basic Metabolic Profile (BMP )on 03-27-2024 BUN Normal - [facility] Comment on above: Result Comment: Canc elled via OM: Order cancelled - Patient discharged Performed By: #### L 100.0100, L500.2500 ####[facility] [address] [place], [address] BUN/CRE Normal - [facility] Comment on above: Result Comment: Canc elled via OM: Order cancelled - Patient discharged Performed By: #### L 100.0100, L500.2500 ####[facility] [address] [place], [address] CA,Total Normal 8.5-10.1 [facility] Comment on above: Result Comment: Canc elled via OM: Order cancelled - Patient discharged Performed By: #### L 100.0100, L500.2500 ####[facility] [address] [place], [address] CL Normal 98-107 [facility] Comment on above: Result Comment: Canc elled via OM: Order cancelled - Patient discharged Performed By: #### L 100.0100, L500.2500 ####[facility] [address] [place], [address] CO2 Normal 21.0-32.0 [facility] Comment on above: Result Comment: Canc elled via OM: Order cancelled - Patient discharged Performed By: #### L 100.0100, L500.2500 ####[facility] [address] [place], [address] CREAT,SERUM Normal 0.70-1.30 [facility] Comment on above: Result Comment: Canc elled via OM: Order cancelled - Patient discharged Performed By: #### L 100.0100, L500.2500 ####[facility] [address] [place], [address] EST GFR Normal >60 [facility] Comment on above: Result Comment: Canc elled via OM: Order cancelled - Patient discharged Performed By: #### L 100.0100, L500.2500 ####[facility] [address] [place], [address] EST GFR - AA Normal >60 [facility] Comment on above: Result Comment: Canc elled via OM: Order cancelled - Patient discharged Performed By: #### L 100.0100, L500.2500 ####[facility] [address] [place], [address] GAP Normal 5-15 [facility] Comment on above: Result Comment: Canc elled via OM: Order cancelled - Patient discharged Performed By: #### L 100.0100, L500.2500 ####[facility] [address] [place], [address] GLU Normal 74-106 [facility] Comment on above: Result Comment: Canc elled via OM: Order cancelled - Patient discharged Performed By: #### L 100.0100, L500.2500 ####[facility] [address] [place], [address] Potassium Normal 3.5-5.1 [facility] Comment on above: Result Comment: Canc elled via OM: Order cancelled - Patient discharged Performed By: #### L 100.0100, L500.2500 ####[facility] [address] [place], [address] Basic Metabolic Profile (BMP) Normal 136-145 [facility] Comment on above: Result Comment: Canc elled via OM: Order cancelled - Patient discharged Performed By: #### L 100.0100, L500.2500 ####[facility] [address] [place], [address] CBC W/Diff, Automatedon 11-2 0-2023 Absolute Neut Normal 2.0-7.7 [facility] Comment on above: Result Comment: Canc elled via OM: Order cancelled - Patient discharged Performed By: #### L 100.0100, L500.2500 ####[facility] [address] [place], [address] HCT Normal 40-54 [facility] Comment on above: Result Comment: Canc elled via OM: Order cancelled - Patient discharged Performed By: #### L 100.0100, L500.2500 ####[facility] [address] [place], [address] HGB Normal 13.0-16.5 [facility] Comment on above: Result Comment: Canc elled via OM: Order cancelled - Patient discharged Performed By: #### L 100.0100, L500.2500 ####[facility] [address] [place], [address] MCH Normal 27.0-32.0 [facility] Comment on above: Result Comment: Canc elled via OM: Order cancelled - Patient discharged Performed By: #### L 100.0100, L500.2500 ####[facility] [address] [place], [address] MCHC Normal 32-36 [facility] Comment on above: Result Comment: Canc elled via OM: Order cancelled - Patient discharged Performed By: #### L 100.0100, L500.2500 ####[facility] [address] [place], [address] MCV Normal 80-94 [facility] Comment on above: Result Comment: Canc elled via OM: Order cancelled - Patient discharged Performed By: #### L 100.0100, L500.2500 ####[facility] [address] [place], [address] NEUT% Normal 47-70 [facility] Comment on above: Result Comment: Canc elled via OM: Order cancelled - Patient discharged Performed By: #### L 100.0100, L500.2500 ####[facility] [address] [place], [address] PLT Normal 150-450 [facility] Comment on above: Result Comment: Canc elled via OM: Order cancelled - Patient discharged Performed By: #### L 100.0100, L500.2500 ####[facility] [address] [place], [address] RBC Normal 4.6-6.2 [facility] Comment on above: Result Comment: Canc elled via OM: Order cancelled - Patient discharged Performed By: #### L 100.0100, L500.2500 ####[facility] [address] [place], [address] RDW CV Normal 11.6-14.6 [facility] Comment on above: Result Comment: Canc elled via OM: Order cancelled - Patient discharged Performed By: #### L 100.0100, L500.2500 ####[facility] [address] [place], [address] RDW SD Normal 35.1-43.9 [facility] Comment on above: Result Comment: Canc elled via OM: Order cancelled - Patient discharged Performed By: #### L 100.0100, L500.2500 ####[facility] [address] [place], [place], [address] WBC Normal 4.4-11.0 [facility] Comment on above: Result Comment: [facility] ellcristy via OM: Order cancelled - Patient discharged Performed By: #### L 100.0100, L500.2500 ####[facility] [address] [place], [address] CNPZaynab 03-27-2024 CNPN Telephone ([facility]) -- DELMARAYESHA Ramírez ([id number]) 1935 M Date Time Provider Department 03/27/24 NURSE [facility] During your visit today, we recorded the following information about you: Raffy Modi RN 03/27/2024 11:57 AM Signed Mary Lynn CNP from [facility] came to office. Ayesha needs to be evaluated by cardiology and neurology prior to Mary being able to consider clearing him for surgery. The patient was scheduled to be seen today, but Mary cancelled the visit and advised Ayesha that the surgery would need to be cancelled and rescheduled after his other visits had been completed. Raffy Modi RN Allergies As of Date: 03/27/2024 Noted Allergy Reaction EGGS (EGG) 12/14/2015 4 - Hives 12 - Shortness of Breath Date Reviewed: 03/27/2024 Reviewed by: Mary Lynn, AYLEEN.FRANCES - Fully Assessed Reason for Visit: Cancel [...] Status:Closed by RAFFY MODI on 03/28/24 Normal [facility] HISTORY PHYSICALon HISTORY PHYSICAL HNO ID: [id number] Author: MARY LYNN APRN.[employer] Service: ? Author Type: Nurse Practitioner Type: [...] discharges or EEG seizures were recorded. Normal [facility] Basic Metabolic Profile (BMP )on 03-20-2024 BUN Normal - [facility] Comment on above: Result Comment: Canc elled via OM: Order cancelled - Patient discharged Performed By: #### L 500.2500, L100.0100 ####[facility] [address] [place], [address] BUN/CRE Normal - [facility] Comment on above: Result Comment: Canc elled via OM: Order cancelled - Patient discharged Performed By: #### L 500.2500, L100.0100 ####[facility] [address] [place], [address] CA,Total Normal 8.5-10.1 [facility] Comment on above: Result Comment: Canc elled via OM: Order cancelled - Patient discharged Performed By: #### L 500.2500, L100.0100 ####[facility] [address] [place], [address] CL Normal 98-107 [facility] Comment on above: Result Comment: Canc elled via OM: Order cancelled - Patient discharged Performed By: #### L 500.2500, L100.0100 ####[facility] [address] [place], [address] CO2 Normal 21.0-32.0 [facility] Comment on above: Result Comment: Canc elled via OM: Order cancelled - Patient discharged Performed By: #### L 500.2500, L100.0100 ####[facility] [address] [place], [address] CREAT,SERUM Normal 0.70-1.30 [facility] Comment on above: Result Comment: Canc elled via OM: Order cancelled - Patient discharged Performed By: #### L 500.2500, L100.0100 ####[facility] [address] [place], [address] EST GFR Normal >60 [facility] Comment on above: Result Comment: Canc elled via OM: Order cancelled - Patient discharged Performed By: #### L 500.2500, L100.0100 ####[facility] [address] [place], [address] EST GFR - AA Normal >60 [facility] Comment on above: Result Comment: Canc elled via OM: Order cancelled - Patient discharged Performed By: #### L 500.2500, L100.0100 ####[facility] [address] [place], [address] GAP Normal 5-15 [facility] Comment on above: Result Comment: Canc elled via OM: Order cancelled - Patient discharged Performed By: #### L 500.2500, L100.0100 ####[facility] [address] [place], [address] GLU Normal 74-106 [facility] Comment on above: Result Comment: Canc elled via OM: Order cancelled - Patient discharged Performed By: #### L 500.2500, L100.0100 ####[facility] [address] [place], [address] Potassium Normal 3.5-5.1 [facility] Comment on above: Result Comment: Canc elled via OM: Order cancelled - Patient discharged Performed By: #### L 500.2500, L100.0100 ####[facility] [address] [place], [address] Basic Metabolic Profile (BMP) Normal 136-145 [facility] Comment on above: Result Comment: Canc elled via OM: Order cancelled - Patient discharged Performed By: #### L 500.2500, L100.0100 ####[facility] [address] [place], [address] CBC W/Diff, Automatedon 11- Absolute Neut Normal 2.0-7.7 [facility] Comment on above: Result Comment: Canc elled via OM: Order cancelled - Patient discharged Performed By: #### L 500.2500, L100.0100 ####[facility] [address] [place], [address] HCT Normal 40-54 [facility] Comment on above: Result Comment: Canc elled via OM: Order cancelled - Patient discharged Performed By: #### L 500.2500, L100.0100 ####[facility] [address] [place], [address] HGB Normal 13.0-16.5 [facility] Comment on above: Result Comment: Canc elled via OM: Order cancelled - Patient discharged Performed By: #### L 500.2500, L100.0100 ####[facility] [address] [place], [address] MCH Normal 27.0-32.0 [facility] Comment on above: Result Comment: Canc elled via OM: Order cancelled - Patient discharged Performed By: #### L 500.2500, L100.0100 ####[facility] [address] [place], [address] MCHC Normal 32-36 [facility] Comment on above: Result Comment: Canc elled via OM: Order cancelled - Patient discharged Performed By: #### L 500.2500, L100.0100 ####[facility] [address] [place], [address] MCV Normal 80-94 [facility] Comment on above: Result Comment: Canc elled via OM: Order cancelled - Patient discharged Performed By: #### L 500.2500, L100.0100 ####[facility] [address] [place], [address] NEUT% Normal 47-70 [facility] Comment on above: Result Comment: Canc elled via OM: Order cancelled - Patient discharged Performed By: #### L 500.2500, L100.0100 ####[facility] [address] [place], [address] PLT Normal 150-450 [facility] Comment on above: Result Comment: Canc elled via OM: Order cancelled - Patient discharged Performed By: #### L 500.2500, L100.0100 ####[facility] [address] [place], [address] RBC Normal 4.6-6.2 [facility] Comment on above: Result Comment: Canc elled via OM: Order cancelled - Patient discharged Performed By: #### L 500.2500, L100.0100 ####[facility] [address] [place], [address] RDW CV Normal 11.6-14.6 [facility] Comment on above: Result Comment: Canc elled via OM: Order cancelled - Patient discharged Performed By: #### L 500.2500, L100.0100 ####[facility] [address] [place], [address] RDW SD Normal 35.1-43.9 [facility] Comment on above: Result Comment: Canc elled via OM: Order cancelled - Patient discharged Performed By: #### L 500.2500, L100.0100 ####[facility] [address] [place], [address] WBC Normal 4.4-11.0 [facility] Comment on above: Result Comment: Canc elled via OM: Order cancelled - Patient discharged Performed By: #### L 500.2500, L100.0100 ####[facility] [address] [place], [address] D/C Summary- SPon 03-20-2024 D/C Summary- SP Normal [facility] CNPNon 03-18-2024 CNPN Telephone ([employer]UCHRISTOPHER) -- AYESHA JACOBSEN ([id number]) 1935 M Date Time Provider Department 03/18/24 JACQUELINE ESPINAL During your visit today, we [...] Encounter Status:Closed by HERO WAITE on 08/05/24 [facility] CNPZaynab 03-15-2024 CNPN Telephone ([employer]) -- AYESHA JACOBSEN ([id number]) 1935 M Date Time Provider Department 03/15/24 JACQUELINE ESPINAL [employer] During your visit today, we recorded the [...] Status:Closed by ADRIANNE BURGESS on 04/29/24 Normal [facility] Basic Metabolic Profile (BMP )on 03-13-2024 BUN Normal 7-18 [facility] Comment on above: Result Comment: Canc elled via OM: Order cancelled - Patient discharged Performed By: #### L 500.2500, L100.0100 ####[facility] [address] [place], [address] BUN/CRE Normal 10-20 [facility] Comment on above: Result Comment: Canc elled via OM: Order cancelled - Patient discharged Performed By: #### L 500.2500, L100.0100 ####[facility] [address] [place], [address] CA,Total Normal 8.5-10.1 [facility] Comment on above: Result Comment: Canc elled via OM: Order cancelled - Patient discharged Performed By: #### L 500.2500, L100.0100 ####[facility] [address] [place], [address] CL Normal 98-107 [facility] Comment on above: Result Comment: Canc elled via OM: Order cancelled - Patient discharged Performed By: #### L 500.2500, L100.0100 ####[facility] [address] [place], [address] CO2 Normal 21.0-32.0 [facility] Comment on above: Result Comment: Canc elled via OM: Order cancelled - Patient discharged Performed By: #### L 500.2500, L100.0100 ####[facility] [address] [place], [address] CREAT,SERUM Normal 0.70-1.30 [facility] Comment on above: Result Comment: Canc elled via OM: Order cancelled - Patient discharged Performed By: #### L 500.2500, L100.0100 ####[facility] [address] [place], [address] EST GFR Normal >60 [facility] Comment on above: Result Comment: Canc elled via OM: Order cancelled - Patient discharged Performed By: #### L 500.2500, L100.0100 ####[facility] [address] [place], [address] EST GFR - AA Normal >60 [facility] Comment on above: Result Comment: Canc elled via OM: Order cancelled - Patient discharged Performed By: #### L 500.2500, L100.0100 ####[facility] [address] [place], [address] GAP Normal 5-15 [facility] Comment on above: Result Comment: Canc elled via OM: Order cancelled - Patient discharged Performed By: #### L 500.2500, L100.0100 ####[facility] [address] [place], [address] GLU Normal 74-106 [facility] Comment on above: Result Comment: Canc elled via OM: Order cancelled - Patient discharged Performed By: #### L 500.2500, L100.0100 ####[facility] [address] [place], [address] Potassium Normal 3.5-5.1 [facility] Comment on above: Result Comment: Canc elled via OM: Order cancelled - Patient discharged Performed By: #### L 500.2500, L100.0100 ####[facility] [address] [place], [address] Basic Metabolic Profile (BMP) Normal 136-145 [facility] Comment on above: Result Comment: Canc elled via OM: Order cancelled - Patient discharged Performed By: #### L 500.2500, L100.0100 ####[facility] [address] [place], [address] CBC W/Diff, Automatedon 11-0 -2023 Absolute Neut Normal 2.0-7.7 [facility] Comment on above: Result Comment: Canc elled via OM: Order cancelled - Patient discharged Performed By: #### L 500.2500, L100.0100 ####[facility] [address] [place], [address] HCT Normal 40-54 [facility] Comment on above: Result Comment: Canc elled via OM: Order cancelled - Patient discharged Performed By: #### L 500.2500, L100.0100 ####[facility] [address] [place], [address] HGB Normal 13.0-16.5 [facility] Comment on above: Result Comment: Canc elled via OM: Order cancelled - Patient discharged Performed By: #### L 500.2500, L100.0100 ####[facility] [address] [place], [address] MCH Normal 27.0-32.0 [facility] Comment on above: Result Comment: Canc elled via OM: Order cancelled - Patient discharged Performed By: #### L 500.2500, L100.0100 ####[facility] [address] [place], [address] MCHC Normal 32-36 [facility] Comment on above: Result Comment: Canc elled via OM: Order cancelled - Patient discharged Performed By: #### L 500.2500, L100.0100 ####[facility] [address] [place], [address] MCV Normal 80-94 [facility] Comment on above: Result Comment: Canc elled via OM: Order cancelled - Patient discharged Performed By: #### L 500.2500, L100.0100 ####[facility] [address] [place], [address] NEUT% Normal 47-70 [facility] Comment on above: Result Comment: Canc elled via OM: Order cancelled - Patient discharged Performed By: #### L 500.2500, L100.0100 ####[facility] [address] [place], [address] PLT Normal 150-450 [facility] Comment on above: Result Comment: Canc elled via OM: Order cancelled - Patient discharged Performed By: #### L 500.2500, L100.0100 ####[facility] [address] [place], [address] RBC Normal 4.6-6.2 [facility] Comment on above: Result Comment: Canc elled via OM: Order cancelled - Patient discharged Performed By: #### L 500.2500, L100.0100 ####[facility] [address] [place], [address] RDW CV Normal 11.6-14.6 [facility] Comment on above: Result Comment: Canc elled via OM: Order cancelled - Patient discharged Performed By: #### L 500.2500, L100.0100 ####[facility] [address] [place], [address] RDW SD Normal 35.1-43.9 [facility] Comment on above: Result Comment: Canc elled via OM: Order cancelled - Patient discharged Performed By: #### L 500.2500, L100.0100 ####[facility] [address] [place], [address] WBC Normal 4.4-11.0 [facility] Comment on above: Result Comment: Canc elled via OM: Order cancelled - Patient discharged Performed By: #### L 500.2500, L100.0100 ####[facility] [address] [place], [address] Inital Evaluation (1) - PTon 03-13-2024 Inital Evaluation (1) - PT Normal [facility] OT General Evaluationon OT General Evaluation Normal [facility] SP/HP.SP.Seema 03-13-2024 SP/HP.SP.EV Normal [facility] Urine Cultureon 03-09-2024 URC Culture exhibits no growth. Normal [facility] Comment on above: Performed By: #### L 400.0001, M100.2200 ####[facility] [address] [place], [address] Urinalysis, Completeon 03-08 WBC 0-5 SEEN Normal 0-5 [facility] Comment on above: Order Comment: BLADD ER TAP Performed By: #### L 400.0001, M100.2200 ####[facility] [address] [place], [address] BACTERIA 0 SEEN Normal None Seen [facility] Comment on above: Order Comment: BLADD ER TAP Performed By: #### L 400.0001, M100.2200 ####[facility] [address] [place], [address] EPI,SQUAMOUS 0 SEEN Normal 0-5 [facility] Comment on above: Order Comment: BLADD ER TAP Performed By: #### L 400.0001, M100.2200 ####[facility] [address] [place], [address] Mucus Ql (Urine sed) 0 SEEN Normal [facility] Comment on above: Order Comment: BLADD ER TAP Performed By: #### L 400.0001, M100.2200 ####[facility] [address] [place], [address] RBC 0 SEEN Normal 0-5 [facility] Comment on above: Order Comment: BLADD ER TAP Performed By: #### L 400.0001, M100.2200 ####[facility] [address] [place], [address] Basic Metabolic Profile (BMP )on 03-06-2024 BUN/CRE 23.6 RATIO High - [facility] Comment on above: Performed By: #### L 100.0100, L500.2500 ####[facility] [address] [place], [address] CA,Total 9.1 mg/dL Normal 8.5-10.1 [facility] Comment on above: Performed By: #### L 100.0100, L500.2500 ####[facility] [address] [place], [address] Chloride [Moles/Vol] 110 mmol/L High 98-107 [facility] Comment on above: Performed By: #### L 100.0100, L500.2500 ####[facility] [address] [place], [address] CO2 [Moles/Vol] 28.0 mmol/L Normal 21.0-32.0 [facility] Comment on above: Performed By: #### L 100.0100, L500.2500 ####[facility] [address] [place], [address] Creatinine [Mass/Vol] 1.06 mg/dL Normal 0.70-1.30 [facility] Comment on above: Result Comment: The validity of the calculated GFR GFRAA in patients over70 years has not been determined. Clinical correlation isessential. Performed By: #### L 100.0100, L500.2500 ####[facility] [address] [place], [address] ECRCL 44.08 ml/min Normal [facility] Comment on above: Performed By: #### L 100.0100, L500.2500 ####[facility] [address] [place], [address] EST GFR - AA 85 mL/min Normal >60 [facility] Comment on above: Result Comment: Afri can Israeli GFR Calc Performed By: #### L 100.0100, L500.2500 ####[facility] [address] [place], [address] GAP 4 Low 5-15 [facility] Comment on above: Performed By: #### L 100.0100, L500.2500 ####[facility] [address] [place], [address] GFR/1.73 sq M.predicted among non-blacks MDRD (S/P/Bld) [Vol rate/Area] 70 mL/min/{1.73_m2} Normal >60 [facility] Comment on above: Result Comment: Non- GFR Calc Performed By: #### L 100.0100, L500.2500 ####[facility] [address] [place], [address] Glucose [Mass/Vol] 91 mg/dL Normal 74-106 [facility] Comment on above: Performed By: #### L 100.0100, L500.2500 ####[facility] [address] [place], [address] Potassium [Moles/Vol] 3.8 mmol/L Normal 3.5-5.1 [facility] Comment on above: Performed By: #### L 100.0100, L500.2500 ####[facility] [address] [place], [address] Sodium [Moles/Vol] 142 mmol/L Normal 136-145 [facility] Comment on above: Performed By: #### L 100.0100, L500.2500 ####[facility] [address] [place], [address] Urea nitrogen [Mass/Vol] 25 mg/dL High 7-18 [facility] Comment on above: Performed By: #### L 100.0100, L500.2500 ####[facility] [address] [place], [address] CBC W/Diff, Automatedon 10-3 0-4 Absolute Lymph 1.77 X10 3/uL Normal 0.83-4.51 [facility] Comment on above: Performed By: #### L 100.0100, L500.2500 ####[facility] [address] [place], [address] Absolute Neut 6.0 X10 3/uL Normal 2.0-7.7 [facility] Comment on above: Performed By: #### L 100.0100, L500.2500 ####[facility] [address] [place], [address] Basophils/100 WBC (Bld) 0.7 % Normal 0-1 [facility] Comment on above: Performed By: #### L 100.0100, L500.2500 ####[facility] [address] [place], [address] Eosinophils/100 WBC (Bld) 9.7 % High 0-5 [facility] Comment on above: Performed By: #### L 100.0100, L500.2500 ####[facility] [address] [place], [address] Erythrocyte distribution width (RBC) [Ratio] 13.2 % Normal 11.6-14.6 [facility] Comment on above: Performed By: #### L 100.0100, L500.2500 ####[facility] [address] [place], [address] Hematocrit (Bld) [Volume fraction] 38.9 % Low 40-54 [facility] Comment on above: Performed By: #### L 100.0100, L500.2500 ####[facility] [address] [place], [address] Hemoglobin (Bld) [Mass/Vol] 12.5 g/dL Low 13.0-16.5 [facility] Comment on above: Performed By: #### L 100.0100, L500.2500 ####[facility] [address] [place], [address] IG% 0.600 Normal 0.0-0.9 [facility] Comment on above: Result Comment: IG% - Immature Granulocytes (promyelocytes, myelocytes andmetamyelocytes) > 1% indicates that a LEFT SHIFT is Present. Performed By: #### L 100.0100, L500.2500 ####[facility] [address] [place], [address] Lymphocytes/100 WBC (Bld) 17.7 % Low 19-41 [facility] Comment on above: Performed By: #### L 100.0100, L500.2500 ####[facility] [address] [place], [address] MCH (RBC) [Entitic mass] 29.0 pg Normal 27.0-32.0 [facility] Comment on above: Performed By: #### L 100.0100, L500.2500 ####[facility] [address] [place], [address] MCHC (RBC) [Mass/Vol] 32.1 g/dL Normal 32-36 [facility] Comment on above: Performed By: #### L 100.0100, L500.2500 ####[facility] [address] [place], [address] MCV (RBC) [Entitic vol] 90.3 fL Normal 80-94 [facility] Comment on above: Performed By: #### L 100.0100, L500.2500 ####[facility] [address] [place], [address] Monocytes/100 WBC (Bld) 11.1 % High 0-10 [facility] Comment on above: Performed By: #### L 100.0100, L500.2500 ####[facility] [address] [place], [address] Neutrophils/100 WBC (Bld) 60.2 % Normal 47-70 [facility] Comment on above: Performed By: #### L 100.0100, L500.2500 ####[facility] [address] [place], [address] Nucleated RBC (Bld) [#/Vol] 0 10*3/uL Normal 0-5 [facility] Comment on above: Performed By: #### L 100.0100, L500.2500 ####[facility] [address] [place], [address] Platelet mean volume (Bld) [Entitic vol] 10.7 fL Normal 6.2-12.0 [facility] Comment on above: Performed By: #### L 100.0100, L500.2500 ####[facility] [address] [place], [address] Platelets (Bld) [#/Vol] 273 10*3/uL Normal 150-450 [facility] Comment on above: Performed By: #### L 100.0100, L500.2500 ####[facility] [address] [place], [address] RBC (Bld) [#/Vol] 4.31 10*6/uL Low 4.6-6.2 [facility] Comment on above: Performed By: #### L 100.0100, L500.2500 ####[facility] [address] [place], [address] RDW SD 43.6 fl Normal 35.1-43.9 [facility] Comment on above: Performed By: #### L 100.0100, L500.2500 ####[facility] [address] [place], [address] WBC (Bld) [#/Vol] 10.0 10*3/uL Normal 4.4-11.0 [facility] Comment on above: Performed By: #### L 100.0100, L500.2500 ####[facility] [address] [place], [address] Vitamin B12on 03-06-2024 Cobalamin (Vitamin B12) [Mass/Vol] 1389 pg/mL High 211-911 [facility] Comment on above: Performed By: #### L 503.0105 ####[facility] [address] [place], [address] CASE MANAGEMon 03-05-2024 CASE MANAGEM HNO ID: [id number] Author: HERMILA MORGAN RN Service: ? Author Type: Registered Nurse Type: Care Mgt Progress Note Filed: 03/05/2024 13:22 Note Text: CARE MANAGEMENT DISCHARGE NOTE SERVICE DATE: March 05, 2024 SERVICE TIME: 1:08 PM Admission Date: 02/26/2024 LOS: 8 days Discharge Arrangement Discharge Arrangement: Care Home Facility Was an expedited discharge program used?: No Services Arranged Provider Name: [facility] Caregiver Assessment Caregiver is ready, willing and able to meet the patient's needs as recommended by the inter-professional team: Yes Name of Caregiver: [facility] Transportation Arrangements Transportation Arrangements: Ambulance Transportation Agency and Phone #:: [facility] [phone] Date of Trip: 03/05/24 Time of Trip: 1800 Type of Service: BLS Non-emergency Is Patient Medicaid Pending?: No Was transportation financial coverage discussed with family?: Patient;Spouse [employer] Location: [place] Destination: [facility] Financial Care Management Responsibility: None Handoff Communication: Handoff to: Primary Care Physician Primary Care Physician Name/Phone: Daniel Perez MD - [phone] Additional Information: Orders received for patient to discharge to SNF. [facility] is able to accept patient today. Precert approval received. Patient and spouse agreeable to discharge plan. Ambulance transport via MMT at 1800. Envelope prepared. Bedside RN updated. 1:15 PM MMT was able to provide and earlier time. MMT scheduled for 1600. Spouse notified. SIGNATURE: Hermila Morgan RN PATIENT NAME: Ayesha Jacobsen DATE: March 05, 2024 TIME: 1:08 PM CONTACT #: [phone] [facility] CASE MANAGEM HNO ID: [id number] Author: HERMILA MORGAN RN Service: ? 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 Author Type: Registered Nurse Type: Care Mgt Progress Note Filed: 03/05/2024 12:44 Note Text: CARE MANAGEMENT PROGRESS NOTE SERVICE DATE: 03/05/2024 SERVICE TIME: 12:43 PM] LOS: 8 days Needs Prior to Discharge: To Be Determined EMR reviewed. [facility] notified. CM will follow. SIGNATURE: Hermila Morgan RN PATIENT NAME: Ayesha Jacobsen DATE: March 05, 2024 TIME: 12:43 PM PAGER/CONTACT #: [phone] [facility] CASE MANAGEM HNO ID: [id number] Author: DANIEL PEREZ MD Service: Family Practice [...] 05, 2024 TIME: 11:46 AM PAGER/CONTACT #: [phone] Normal [facility] CBC panel Auto (Bld)on 03-05 Erythrocyte distribution width (RBC) [Ratio] 13.3 % Normal 11.5-15.0 [facility] Comment on above: Order Comment: Speci men Type: BLOOD SPECIMENOrdering Facility: [facility] Address: [address] [place] [address] Performed By: #### 5 8410-2 ####[facility] [id number] [address] Hematocrit (Bld) [Volume fraction] 39.8 % Normal 39.0-51.0 [facility] Comment on above: Order Comment: Speci men Type: BLOOD SPECIMENOrdering Facility: [facility] Address: [address] [place] [address] Performed By: #### 5 8410-2 ####[facility] [id number] [address] OF [facility] Hemoglobin (Bld) [Mass/Vol] 12.9 g/dL Low 13.0-17.0 [facility] Comment on above: Order Comment: Speci men Type: BLOOD SPECIMENOrdering Facility: [facility] Address: [address] [place] [address] Performed By: #### 5 8410-2 ####[facility] [id number] [address] STATES [facility] MCH (RBC) [Entitic mass] 29.3 pg Normal 26.0-34.0 [facility] Comment on above: Order Comment: Speci men Type: BLOOD SPECIMENOrdering Facility: [facility] Address: [address] [place] [address] Performed By: #### 5 8410-2 ####[facility] [id number] [address] MCHC (RBC) [Mass/Vol] 32.4 g/dL Normal 30.5-36.0 [facility] Comment on above: Order Comment: Speci men Type: BLOOD SPECIMENOrdering Facility: [facility] Address: [address] [place] [address] Performed By: #### 5 8410-2 ####[facility] [id number] [address] OF [place] MCV (RBC) [Entitic vol] 90.2 fL Normal 80.0-100.0 [facility] Comment on above: Order Comment: Speci men Type: BLOOD SPECIMENOrdering Facility: [facility] Address: [address] [place] [address] Performed By: #### 5 8410-2 ####[facility]CL[facility] [id number] [address] [place] Nucleated RBC (Bld) [#/Vol] 10*3/uL Normal <0.01 [facility] Comment on above: Order Comment: Speci men Type: BLOOD SPECIMENOrdering Facility: [facility] Address: [address] [place] [address] Performed By: #### 5 8410-2 ####[facility] [id number] [address] [place] Platelet mean volume (Bld) [Entitic vol] 10.7 fL Normal 9.0-12.7 [facility] Comment on above: Order Comment: Speci men Type: BLOOD SPECIMENOrdering Facility: [facility] Address: [address] [place] [address] Performed By: #### 5 8410-2 ####[facility]ORYCL[facility] [id number] [address] OF [place] Platelets (Bld) [#/Vol] 263 10*3/uL Normal 150-400 [facility] Comment on above: Order Comment: Speci men Type: BLOOD SPECIMENOrdering Facility: [facility] Address: [address] [place] [address] Performed By: #### 5 8410-2 ####[facility]ORYCLIA [id number] [place] [address] [place] RBC (Bld) [#/Vol] 4.41 10*6/uL Normal 4.20-6.00 [facility] Comment on above: Order Comment: Speci men Type: BLOOD SPECIMENOrdering Facility: [facility] Address: [address] [place] [address] Performed By: #### 5 8410-2 ####[facility] [id number] [address] WBC (Bld) [#/Vol] 13.16 10*3/uL High 3.70-11.00 [facility] Comment on above: Order Comment: Speci men Type: BLOOD SPECIMENOrdering Facility: [facility] Address: [address] [place] [address] Performed By: #### 5 8410-2 ####[facility]ATORYCLIA [id number] [place] [id number] [facility] CNDSon 03-05-2024 CNDS HNO ID: [id number] Author: DANIEL PEREZ MD Service: Family Practice [...] call for appointment?: Yes Daniel Perez MD [phone] [facility] [place] [id number] PCP Requested Referral GENERAL: alert, no distress, [...] none FOLLOW-UP APPOINTMENTS ALREADY SCHEDULED WITH A [facility] PROVIDER: Future Appointments Date Time Provider Department Center 07/15/2024 10:30 AM ECHOCARDIOGRAM [facility] [place] 07/22/2024 3:20 PM Fabricio Hall MD [facility] [place] ALLERGIES Allergen Reactions Eggs [Egg] Hives, [...] Your Medications These medications were sent to [facility] - [place] [address] - [address] - [phone] [address] [place] [address] levETIRAcetam 500 mg tablet The patient's risk [...] Provider, RN, Patient I have performed the kpbc-hx-wrqy and relevant services for a total of < 30 minutes. SIGNATURE: Daniel Perez MD DATE: March 05, 2024 TIME: 12:50 PM Normal [facility] Comprehensive metabolic 2000 panelon 03-05-2024 Albumin [Mass/Vol] 3.3 g/dL Low 3.9-4.9 [facility] Comment on above: Order Comment: Specbrenna amaya Type: BLOOD SPECIMENOrdering Facility: [facility] Address: [address] [place] [address] Performed By: #### 2 4323-8 ####[facility]ORYCLIA [id number] [address] ALP [Catalytic activity/Vol] 69 U/L Normal 38-113 [facility] Comment on above: Order Comment: Jame amaya Type: BLOOD SPECIMENOrdering Facility: [facility] Address: [address] [place] [address] Performed By: #### 2 4323-8 ####[facility]ATORYCLIA [id number] [place] [id number] [facility] ALT [Catalytic activity/Vol] 9 U/L Low 10-54 [facility] Comment on above: Order Comment: Jame amaya Type: BLOOD SPECIMENOrdering Facility: [facility] Address: [address] [place] [address] Performed By: #### 2 4323-8 ####[facility]ATORYCLIA [id number] [place] [address] [place] Anion gap [Moles/Vol] 7 mmol/L Low 8-15 [facility] Comment on above: Order Comment: Speci men Type: BLOOD SPECIMENOrdering Facility: [facility] Address: [address] [place] [address] Performed By: #### 2 4323-8 ####[facility]ORYCLIA [id number] [address] [place] AST [Catalytic activity/Vol] 12 U/L Low 14-40 [facility] Comment on above: Order Comment: Speci men Type: BLOOD SPECIMENOrdering Facility: [facility] Address: [address] [place] [address] Performed By: #### 2 4323-8 ####[facility]ORYCLIA [id number] [address] [place] Bilirubin [Mass/Vol] 0.6 mg/dL Normal 0.2-1.3 [facility] Comment on above: Order Comment: Speci men Type: BLOOD SPECIMENOrdering Facility: [facility] Address: [address] [place] [address] Performed By: #### 2 4323-8 ####[facility]ORYCLIA [id number] [address] [place] Calcium [Mass/Vol] 8.9 mg/dL Normal 8.5-10.2 [facility] Comment on above: Order Comment: Speci men Type: BLOOD SPECIMENOrdering Facility: [facility] Address: [address] [place] [address] Performed By: #### 2 4323-8 ####[facility]ATORYCLIA [id number] [address] [place] Chloride [Moles/Vol] 107 mmol/L Normal 98-107 [facility] Comment on above: Order Comment: Speci men Type: BLOOD SPECIMENOrdering Facility: [facility] Address: [address] [place] [address] Performed By: #### 2 4323-8 ####[facility]ATORYCLIA [id number] [place] [address] [place] CO2 [Moles/Vol] 27 mmol/L Normal 22-30 [facility] Comment on above: Order Comment: Jame monique Type: BLOOD SPECIMENOrdering Facility: [facility] Address: [address] [place] [address] Performed By: #### 2 4323-8 ####[facility]ATORYCLIA [id number] [address] STATES OF [facility] Creatinine [Mass/Vol] 1.06 mg/dL Normal 0.73-1.22 [facility] Comment on above: Order Comment: Jame monique Type: BLOOD SPECIMENOrdering Facility: [facility] Address: [address] [place] [address] Performed By: #### 2 4323-8 ####[facility]ATORYCLIA [id number] [address] Creatinine and Glomerular filtration rate.predicted panel (S/P/Bld) 68 mL/min/1.73m??? Normal >=60 [facility] Comment on above: Order Comment: Jame monique Type: BLOOD SPECIMENOrdering Facility: [facility] Address: [address] [place] [address] Result Comment: Radha mated Glomerular Filtration Rate [...] Performed By: #### 2 4323-8 ####[facility]ATORYCLIA [id number] [address] STATES OF [facility] Glucose [Mass/Vol] 98 mg/dL Normal 74-99 [facility] Comment on above: Order Comment: Jame amaya Type: BLOOD SPECIMENOrdering Facility: [facility] Address: [address] [place] [address] Result Comment: The [place] Diabetes Association (ADA) provides guidance for cutoff [...] Standards of Medical Care in Diabetes 2016, [place] Diabetes Association. Diabetes Care. 2016.39(Suppl 1). Performed By: #### 2 4323-8 ####[facility]ATORYCLIA [id number] [place] [address] [place] Potassium [Moles/Vol] 4.3 mmol/L Normal 3.7-5.1 [facility] Comment on above: Order Comment: Jame amaya Type: BLOOD SPECIMENOrdering Facility: [facility] Address: [address] [place] [address] Performed By: #### 2 4323-8 ####[facility]ORATORYCLIA [id number] [place] [address] [place] Protein [Mass/Vol] 6.1 g/dL Low 6.3-8.0 [facility] Comment on above: Order Comment: Ruperti monique Type: BLOOD SPECIMENOrdering Facility: [facility] Address: [address] [place] [address] Performed By: #### 2 4323-8 ####[facility]ATORYCLIA [id number] [address] [place] Sodium [Moles/Vol] 141 mmol/L Normal 136-144 [facility] Comment on above: Order Comment: Speci men Type: BLOOD SPECIMENOrdering Facility: [facility] Address: [address] [place] [address] Performed By: #### 2 4323-8 ####[facility]ORATORYCLIA [id number] [place] [address] [place] Urea nitrogen [Mass/Vol] 24 mg/dL Normal 9-24 [facility] Comment on above: Order Comment: Ruperti men Type: BLOOD SPECIMENOrdering Facility: [facility] Address: [address] [place] [address] Performed By: #### 2 4323-8 ####[facility] [id number] [place] [address] [facility] THERAPY NTon 03-05-2024 THERAPY NT HNO ID: [id number] Author: ANDREW DANIELS PTA Service: Physical Therapy Author Type: Java Developer Type: Therapy (PT/OT/Speech/Resp) Filed: 03/05/2024 11:35 Note Text: -- Attestation signed by Wendy Fisher, PT at 03/05/2024 5:14 PM I reviewed and agree with the documentation corresponding to this therapy visit. SIGNATURE: Wendy Fisher PT DATE: March 05, 2024 TIME: 5:14 PM -- Physical Therapy Treatment Summary SERVICE DATE: 03/05/2024 SERVICE TIME: 1101 to 1125 ROOM: [place] [address] PT 6 Clicks Score: 22 DISCHARGE RECOMMENDATIONS [...] Unsteadiness on feet TREATMENT INTERVENTIONS Therapeutic Exercise (11592), Therapeutic Activity (15022), Gait Training (36753) Timed Code Treatment (minutes): 24 Skilled Treatment Time (minutes): 24 Therapeutic Exercise (31165) Treatment Minutes: 10 $ Therapeutic Exercise (56135) Billed Units: 1 unit Exercise Ankle Pumps [...] correct performance. rest breaks throughout. Therapeutic Activity (81901) Treatment Minutes: 4 $ Therapeutic Activity (88510) Billed Units: 0 units Gait Training (64693) Treatment Minutes: 10 $ Gait Training (30006) Billed Units: 1 unit TRAINING AND EDUCATION [...] gait, cues for (more content not included)... [facility] HNO ID: [id number] Author: IRENE RICCI RT(Marty) Service: Radiology Author Type: Technologist Type: [facility] Filed: 03/04/2024 17:19 Note Text: Radiology Service Progress Note PATIENT NAME: Aeysha Jacobsen DATE OF SERVICE: March 04, 2024 [...] PATIENT PRESENTS WITH AN IMPLANTABLE OR ATTACHED CANE PILER: No RADIOLOGY DEPARTMENT: MR; Exam(s) Completed: Head: Routine Brain PERIPHERAL IV DATA: Not applicable SIGNED BY: RT Mateus(Marty) March 04, 2024 5:19 PM [facility] HNO ID: [id number] Author: DESMOND MENDEZ CT Service: Radiology Author Type: Technologist Type: [facility] Filed: 03/04/2024 13:08 Note Text: Radiology [...] PATIENT PRESENTS WITH AN IMPLANTABLE OR ATTACHED CANE PILER: No RADIOLOGY DEPARTMENT: CT; Exam(s) Completed: Brain PERIPHERAL IV DATA: Inpatient: see LDA documentation SIGNED BY: MLEANIE Otrega March 04, 2024 1:08 PM [facility] CASE MANAGEMon 03-04-2024 CASE MANAGEM HNO ID: [id number] Author: MONIQUE VAZQUEZ LSW Service: ASSESSMENT Author Type: Sample Builder Type: Care Mgt Progress Note Filed: 03/04/2024 13:43 Note Text: CARE MANAGEMENT PROGRESS NOTE SERVICE DATE: 03/04/2024 SERVICE TIME: 12:46 PM LOS: 7 days Needs Prior to Discharge: To Be Determined;Precertificatio n [facility] reports that [facility] may be able to accept. requested that referral be reviewed. [facility] pts[facility] choice. Will await acceptance from their [facility]. Should [facility] be unable to accept, [facility] able to accept. Updated PT/OT notes in [facility], will follow for SNF/Rehab responses. 1:42 PM [facility] has started pre-cert. If denied, will attempt pre-cert for [facility]. CM will continue to follow for receipt. SIGNATURE: Monique Vazquez WOUND CARE TECHNICIAN, SAFETY LAMP KEEPER PATIENT NAME: Ayesha Jacobsen DATE: March 04, 2024 TIME: 1:43 PM PAGER/CONTACT #: [facility] CT BRAIN ATTACK WO IVCONon 1 CT BRAIN ATTACK WO IVCON * * *Final Report* * * DATE OF EXAM: Mar 04 2024 1:09PM [facility] [place]IN [place] WO IVCON [...] initiated at 03/04/2024 1:09 PM. Communicated with ANNA CAMERON on 03/04/2024 1:11 PM . CR_1 Batch Blender: KIERSTEN Transcribe Date/Time: Mar 04 2024 1:10P Dictated by : VICTORIA PATRICIO MD This examination was interpreted and the report reviewed and electronically signed by: VICTORIA PATRICIO MD on Mar 04 2024 1:14PM EST [id number] CRITICAL!! Invalid Interpretation Code [facility] ECG COMPLETEon 03-04-2024 ECG COMPLETE Ventricular Rate : 8 3 BPM Atrial Rate : 83 BPM P-R Interval : 176 ms QRS Duration : 102 ms Q-T Interval : 398 ms QTC Calculation(Bazett) : 467 ms Calculated P [place] : 18 degrees Calculated R [place] : -34 degrees Calculated T [place] : 36 degrees SINUS RHYTHM WITH SINUS ARRHYTHMIA WITH OCCASIONAL PREMATURE VENTRICULAR COMPLEXES LEFT AXIS DEVIATION INCOMPLETE RIGHT BUNDLE BRANCH BLOCK MINIMAL VOLTAGE CRITERIA FOR LVH, MAY BE NORMAL VARIANT ( R in aVL ) ABNORMAL ECG NO PREVIOUS ECGS AVAILABLE Confirmed by SHAY LUO M.D. ([id number]) on 03/04/2024 3:52:07 PM NAME : AYESHA JACOBSEN PID : [id number] : 1935 Gender : Male Race : ORD : [id number] Procedure Date : Mar 04 2024 13:26:05 [...] : , Acquired by : Mil stearns [facility] 03-04-2024 [facility] HNO ID: [id number] Author: ANNA CAMERON APRN.HAND CELL TUBER Service: Critical Care Author Type: Nurse Practitioner Type: Chg in Clinical Condition Filed: 03/04/2024 15:01 Note Text: EMERGENCY RESPONSE TEAM INPATIENT STROKE ALERT Date of MET Page: March 04, 2024 Time of MET Page: 1229 Requesting Provider: Bedside RN SUMMARY DIAGNOSIS, ASSESSMENT and RECOMMENDATIONS 2445 Inpatient Stroke Alert initiated by bedside RN [...] 0- both correct. 1c) LOC commands (close eyes/public policy coordinator): 0- both correct. 2) Best gaze: 0- [...] no acute findings and sent home on . patient on Monday began to have some [...] ESOPHAGOSCOPY FLEXIBLE REMOVAL FOREIGN BODY 05/27/08 ER [facility] PAST SURGICAL HISTORY OF Mid COLON RESECTION [...] mg OR (more content not included)... Normal [facility] MRI BRAIN WO IVCONon 024 MRI BRAIN WO IVCON * * *Final Report* * * DATE OF EXAM: Mar 04 2024 5:45PM [facility] 0294 - MRI BRAIN WO IVCON / [...] No significant change from the 03/01/2024 examination. Batch Blender: [facility] Transcribe Date/Time: Mar 04 2024 5:46P Dictated by : GARRETT REYES DO This examination was interpreted and the report reviewed and electronically signed by: GARRETT REYES DO on Mar 04 2024 5:49PM EST [id number] [facility] THERAPY NTon 03-04-2024 THERAPY NT HNO ID: [id number] Author: WENDY FISHER PT Service: Physical Therapy Author Type: Physical Therapist Type: Therapy (PT/OT/Speech/Resp) Filed: 03/04/2024 11:17 Note Text: -- Summary: PT Treatment (Pre-cert) -- Physical Therapy Treatment Summary SERVICE DATE: 03/04/2024 SERVICE TIME: 1046 to 1111 ROOM: [id number] PT 6 Clicks Score: 18 DISCHARGE RECOMMENDATIONS [...] Unsteadiness on feet TREATMENT INTERVENTIONS Therapeutic Activity (06867), Gait Training (96217) Timed Code Treatment (minutes): 25 Skilled Treatment Time (minutes): 25 Therapeutic Activity (20751) Treatment Minutes: 15 $ Therapeutic Activity (29972) Billed Units: 1 unit Gait Training (58441) Treatment Minutes: 10 $ Gait Training (81254) Billed Units: 1 unit TRAINING AND EDUCATION [...] Path Deviation Gait (more content not included)... [facility] THERAPY NT HNO ID: [id number] Author: JOHN VALENTINE OTR/Desiree Service: Occupational Therapy Author Type: Occupational Therapist Type: Therapy (PT/OT/Speech/Resp) Filed: 03/04/2024 10:39 Note Text: -- Summary: OT precert note -- Occupational Therapy Treatment Summary SERVICE DATE: 03/04/2024 SERVICE TIME: 929 to 1000 ROOM: [id number] OT 6 Clicks Score: 20 DISCHARGE RECOMMENDATIONS [...] Functions and Awareness TREATMENT INTERVENTIONS Therapeutic Activity (48750), Self Long Term Management (76551) Timed Code Treatment (minutes): 25 Skilled Treatment [...] Interventions: E (more content not included)... Normal [facility] levETIRAcetam [facility]-mCdcon 1 levETIRAcetam [Mass/Vol] 26.0 ug/mL Normal 12.0-46.0 [facility] Comment on above: Order Comment: Speci men Type: BLOOD SPECIMENOrdering Facility: [facility] Address: [address] [place] [address] Result Comment: This test is not suitable [...] performance characteristics determined by the [facility] Department of Pathology and Laboratory Medicine. It has not been cleared or approved by the FDA. The [facility] Department of Pathology and Laboratory Medicine is regulated under CLIA as qualified to perform high-complexity testing. This test is used for clinical purposes. It should not be regarded as investigational or for research. Performed By: #### 3 0471-7 ####[facility] LABCLIA [id number] [address] [place] CBC panel Auto (Bld)on 03-03 Erythrocyte distribution width (RBC) [Ratio] 13.2 % Normal 11.5-15.0 [facility] Comment on above: Order Comment: Speci men Type: BLOOD SPECIMENOrdering Facility: [facility] Address: [address] [place] [address] Performed By: #### 5 5454-3 ####[facility] LABCLIA [id number] [address] [place]#### 35866-9 ####[place] [facility]ATORYCLIA [id number] [address] Hematocrit (Bld) [Volume fraction] 40.9 % Normal 39.0-51.0 [facility] Comment on above: Order Comment: Speci men Type: BLOOD SPECIMENOrdering Facility: [facility] Address: [address] [place] [address] Performed By: #### 5 5454-3 ####[facility] LABCLIA [id number] [place] [address] [facility] [place]#### 17509-6 ####[facility]ORATORYCLIA [id number] [address] Hemoglobin (Bld) [Mass/Vol] 13.4 g/dL Normal 13.0-17.0 [facility] Comment on above: Order Comment: Speci men Type: BLOOD SPECIMENOrdering Facility: [facility] Address: [address] [place] [address] Performed By: #### 5 5454-3 ####[facility] LABCLIA [id number] [address] [place]#### 37602-5 ####[facility]ATORYCLIA [id number] [address] MCH (RBC) [Entitic mass] 29.6 pg Normal 26.0-34.0 [facility] Comment on above: Order Comment: Speci men Type: BLOOD SPECIMENOrdering Facility: [facility] Address: [address] [place] [address] Performed By: #### 5 5454-3 ####[facility] LABCLIA [id number] [address] [place]#### 23303-5 ####[facility]ATORYCLIA [id number] [address] [place] MCHC (RBC) [Mass/Vol] 32.8 g/dL Normal 30.5-36.0 [facility] Comment on above: Order Comment: Speci men Type: BLOOD SPECIMENOrdering Facility: [facility] Address: [address] [place] [address] Performed By: #### 5 5454-3 ####[facility] LABCLIA [id number] [address] [place]#### 07958-8 ####[facility]ATORYCLIA [id number] [address] [place] MCV (RBC) [Entitic vol] 90.5 fL Normal 80.0-100.0 [facility] Comment on above: Order Comment: Speci men Type: BLOOD SPECIMENOrdering Facility: [facility] Address: [address] [place] [address] Performed By: #### 5 5454-3 ####[facility] LABCLIA [id number] [place] [address] [place]#### 71500-1 ####[facility]ATORYCLIA [id number] [place] [address] [place] Nucleated RBC (Bld) [#/Vol] 10*3/uL Normal <0.01 [facility] Comment on above: Order Comment: Speci men Type: BLOOD SPECIMENOrdering Facility: [facility] Address: [address] [place] [address] Performed By: #### 5 5454-3 ####[facility] LABCLIA [id number] [place] [address] [place]#### 29919-4 ####[facility]ATORYCLIA [id number] [place] [address] [place] Platelet mean volume (Bld) [Entitic vol] 10.9 fL Normal 9.0-12.7 [facility] Comment on above: Order Comment: Speci men Type: BLOOD SPECIMENOrdering Facility: [facility] Address: [address] [place] [address] Performed By: #### 5 5454-3 ####[facility] LABCLIA [id number] [place] [address] [place]#### 80669-2 ####[facility]ATORYCLIA [id number] [place] [address] [place] Platelets (Bld) [#/Vol] 236 10*3/uL Normal 150-400 [facility] Comment on above: Order Comment: Speci men Type: BLOOD SPECIMENOrdering Facility: [facility] Address: [address] [place] [id number] Performed By: #### 5 5454-3 ####[facility] LABCLIA [id number] [place] [address] [place]#### 29026-1 ####[facility] LABORATORYCLIA [id number] [address] [place] RBC (Bld) [#/Vol] 4.52 10*6/uL Normal 4.20-6.00 [facility] Comment on above: Order Comment: Speci men Type: BLOOD SPECIMENOrdering Facility: [facility] Address: [address] [place] [address] Performed By: #### 5 5454-3 ####[facility] LABCLIA [id number] [place] [address] [place]#### 08749-1 ####[facility]ORYCLIA [id number] [address] [place] WBC (Bld) [#/Vol] 10.48 10*3/uL Normal 3.70-11.00 [facility] Comment on above: Order Comment: Speci men Type: BLOOD SPECIMENOrdering Facility: [facility] Address: [address] [place] [address] Performed By: #### 5 5454-3 ####[facility] LABCLIA [id number] [address] [place]#### 10424-2 ####[facility] LABORATORYCLIA [id number] [address] Comprehensive metabolic 2000 panelon 03-03-2024 Albumin [Mass/Vol] 3.4 g/dL Low 3.9-4.9 [facility] Comment on above: Order Comment: Speci men Type: BLOOD SPECIMENOrdering Facility: [facility] Address: [address] [place] [address] Performed By: #### L IPNF, 66792-2 ####[facility] LABORATORYCLIA [id number] [address] [place] ALP [Catalytic activity/Vol] 67 U/L Normal 38-113 [facility] Comment on above: Order Comment: Speci men Type: BLOOD SPECIMENOrdering Facility: [facility] Address: [address] [place] [address] Performed By: #### L IPNF, ####[facility] LABORATORYCLIA [id number] [place] [address] [place] ALT [Catalytic activity/Vol] 10 U/L Normal 10-54 [facility] Comment on above: Order Comment: Speci men Type: BLOOD SPECIMENOrdering Facility: [facility] Address: [address] [place] [address] Performed By: #### L IPNF, 19439-9 ####[facility] LABORATORYCLIA [id number] [place] [address] [place] Anion gap [Moles/Vol] 6 mmol/L Low 8-15 [facility] Comment on above: Order Comment: Speci men Type: BLOOD SPECIMENOrdering Facility: [facility] Address: [address] [place] [address] Performed By: #### L IPNF, 10588-8 ####[facility] LABORATORYCLIA [id number] [address] [place] AST [Catalytic activity/Vol] 15 U/L Normal 14-40 [facility] Comment on above: Order Comment: Speci men Type: BLOOD SPECIMENOrdering Facility: [facility] Address: [address] [place] [address] Performed By: #### L IPNF, 49611-3 ####[facility] LABORATORYCLIA [id number] [place] [address] [place] Bilirubin [Mass/Vol] 0.4 mg/dL Normal 0.2-1.3 [facility] Comment on above: Order Comment: Speci men Type: BLOOD SPECIMENOrdering Facility: [facility] Address: [address] [place] [address] Performed By: #### L IPNF, 10797-1 ####[facility] LABORATORYCLIA [id number] [place] [address] [place] Calcium [Mass/Vol] 9.0 mg/dL Normal 8.5-10.2 [facility] Comment on above: Order Comment: Speci men Type: BLOOD SPECIMENOrdering Facility: [facility] Address: [facility] [place] [address] Performed By: #### L IPNF, 60264-4 ####[facility] LABORATORYCLIA [id number] [place] [address] [place] Chloride [Moles/Vol] 108 mmol/L High 98-107 [facility] Comment on above: Order Comment: Speci men Type: BLOOD SPECIMENOrdering Facility: [facility] Address: [address] [place] [address] Performed By: #### L IPNF, 00751-8 ####[facility] LABORATORYCLIA [id number] [place] [address] [place] CO2 [Moles/Vol] 28 mmol/L Normal 22-30 [facility] Comment on above: Order Comment: Ruperti men Type: BLOOD SPECIMENOrdering Facility: [facility] Address: [address] [place] [address] Performed By: #### L IPNF, 26905-7 ####[facility] LABORATORYCLIA [id number] [place] [address] [place] Creatinine [Mass/Vol] 1.03 mg/dL Normal 0.73-1.22 [facility] Comment on above: Order Comment: Speci men Type: BLOOD SPECIMENOrdering Facility: [facility] Address: [address] [place] [address] Performed By: #### L IPNF, 44763-2 ####[facility] LABORATORYCLIA [id number] [address] Creatinine and Glomerular filtration rate.predicted panel (S/P/Bld) 70 mL/min/1.73m??? Normal >=60 [facility] Comment on above: Order Comment: Speci men Type: BLOOD SPECIMENOrdering Facility: [facility] Address: [address] [place] [address] Result Comment: Radha mated Glomerular Filtration Rate [...] actual GFR. Performed By: #### L IPNF, 26259-3 ####[facility] LABORATORYCLIA [id number] [place] [address] [place] Glucose [Mass/Vol] 98 mg/dL Normal 74-99 [facility] Comment on above: Order Comment: Jame amaya Type: BLOOD SPECIMENOrdering Facility: [facility] Address: [address] [place] [address] Result Comment: The [place] Diabetes Association (ADA) provides guidance for cutoff [...] Standards of Medical Care in Diabetes 2016, [place] Diabetes Association. Diabetes Care. 2016.39(Suppl 1). Performed By: #### L IPNF, 28272-3 ####[facility] LABORATORYCLIA [id number] [place] [address] [place] Potassium [Moles/Vol] 4.4 mmol/L Normal 3.7-5.1 [facility] Comment on above: Order Comment: Jame amaya Type: BLOOD SPECIMENOrdering Facility: [facility] Address: [address] [place] [address] Performed By: #### L IPNF, 37442-5 ####[facility] LABORATORYCLIA [id number] [place] [address] [place] Protein [Mass/Vol] 5.8 g/dL Low 6.3-8.0 [facility] Comment on above: Order Comment: Jame amaya Type: BLOOD SPECIMENOrdering Facility: [facility] Address: [address] [place] [address] Performed By: #### L IPNF, 69347-1 ####[facility] LABORATORYCLIA [id number] [place] [address] [place] Sodium [Moles/Vol] 142 mmol/L Normal 136-144 [facility] Comment on above: Order Comment: Jame amaya Type: BLOOD SPECIMENOrdering Facility: [facility] Address: [address] [place] [address] Performed By: #### L DEMETRIO, 91867-5 ####[facility] LABORATORYCLIA [id number] [place] [address] [place] Urea nitrogen [Mass/Vol] 26 mg/dL High 9-24 [facility] Comment on above: Order Comment: Jame amaya Type: BLOOD SPECIMENOrdering Facility: [facility] Address: [address] [place] [address] Performed By: #### L DEMETRIO, 06584-4 ####[facility] LABORATORYCLIA [id number] [address] [place] HbA1c (Bld)on 03-03-2024 Average glucose Estimated from glycated hemoglobin (Bld) [Mass/Vol] 100 mg/dL Normal [facility] Comment on above: Order Comment: Jame amaya Type: BLOOD SPECIMENOrdering Facility: [facility] Address: [address] [place] [address] Result Comment: eAG: (Estimated average glucose) is a calculated value from HgbA1c and is business representative of the average blood glucose level in the last 2-3 month period. Performed By: #### 5 5454-3 ####[facility] LABCLIA [id number] [facility] [id number] [place]#### 72702-1 ####[facility] LABORATORYCLIA [id number] [place] [address] [place] HbA1c (Bld) [Mass fraction] 5.1 % Normal 4.3-5.6 [facility] Comment on above: Order Comment: Jame monique Type: BLOOD SPECIMENOrdering Facility: [facility] Address: [address] [place] [address] Result Comment: Amer [place] Diabetes Association guidelines indicate that patients with HgbA1c in the range 5.7-6.4% are at increased risk for development of diabetes, and intervention by lifestyle modification may be beneficial. HgbA1c greater or equal to 6.5% is considered diagnostic of diabetes. Performed By: #### 5 5454-3 ####[facility] LABCLIA [id number] [address] [place]#### 00353-7 ####[facility] LABORATORYCLIA [id number] [address] LIPID PANEL, NONFASTINGon Cholesterol [Mass/Vol] 166 mg/dL Normal <200 [facility] Comment on above: Order Comment: Ruperti men Type: BLOOD SPECIMENOrdering Facility: [facility] Address: [address] [place] [address] Result Comment: <200 mg/dL, Desirable 200-239 mg/dL, Borderline high >239 mg/dL, High Performed By: #### L DEMETRIO, 09819-6 ####[facility] LABORATORYCLIA [id number] [address] HDL CHOLESTEROL, NF 48 mg/dL Normal >39 [facility] Comment on above: Order Comment: Ruperti men Type: BLOOD SPECIMENOrdering Facility: [facility] Address: [address] [place] [address] Result Comment: 40-5 9 mg/dL, Acceptable >59 mg/dL, High: Negative risk factor for coronary heart disease <40 mg/dL, Low: Positive risk factor for coronary heart disease Performed By: #### L DEMETRIO, 01333-8 ####[facility] LABORATORYCLIA [id number] [address] LDL CHOLESTEROL, NF 104 mg/dL High <100 [facility] Comment on above: Order Comment: Jame [facility] Type: BLOOD SPECIMENOrdering Facility: [facility] Address: [address] [place] [address] Result Comment: <100 mg/dL, Optimal 100-129 mg/dL, Near optimal/above optimal 130-159 mg/dL, Borderline high 160-189 mg/dL, High >189 mg/dL, Very high Secondary prevention optimal LDL Cholesterol levels are recommended to be < 70 mg/dL Performed By: #### L IPNF, 12322-1 ####[facility] LABORATORYCLIA [id number] [address] LDL/HDL RATIO, NF 2.17 mg/dL Normal <2.54 [facility] Comment on above: Order Comment: Jame monique Type: BLOOD SPECIMENOrdering Facility: [facility] Address: [address] [place] [address] Result Comment: Phyllis mcdonough: 1. National Cholesterol Education Program ATP III Guideline At-A-Glance Quick Desk Reference: National Heart, Lung, and Blood [place]. National Institutes of Health. 2001: NIH Publication No. 01-3305. 2. An International Atherosclerosis Society position paper: global recommendations for the management of dyslipidemia: executive summary, Atherosclerosis. 2014: 232(2):410-413. Performed By: #### L IPNF, 86928-8 ####[facility] LABORATORYCLIA [id number] [address] NON HDL CHOL, NF 118 mg/dL Normal <130 [facility] Comment on above: Order Comment: Jame monique Type: BLOOD SPECIMENOrdering Facility: [facility] Address: [address] [place] [address] Result Comment: <130 mg/dL, Optimal 130-159 mg/dL, Near optimal/above optimal 160-189 mg/dL, Borderline high 190-219 mg/dL, High >219 mg/dL, Very high Secondary prevention optimal non HDL Cholesterol levels are recommended to be <100 mg/dL Performed By: #### L IPNF, 99382-9 ####[facility] LABORATORYCLIA [id number] [address] T CHOL/HDL RATIO NF 3.46 mg/dL Normal <5.10 [facility] Comment on above: Order Comment: Rupertbrenna amaya Type: BLOOD SPECIMENOrdering Facility: [facility] Address: [address] [place] [address] Performed By: #### L IPNF, 09689-0 ####[facility] LABORATORYCLIA [id number] [address] TRIGLYCERIDES, NF 71 mg/dL Normal <150 [facility] Comment on above: Order Comment: Speci men Type: BLOOD SPECIMENOrdering Facility: [facility] Address: [address] [place] [address] Result Comment: <150 mg/dL, Normal 150-199 mg/dL, Borderline high 200-499 mg/dL, High >499 mg/dL, Very high Performed By: #### L IPNF, 28772-9 ####[facility] LABORATORYCLIA [id number] [place] [address] [place] VLDL CHOLESTEROL, NF 14 mg/dL Normal <30 [facility] Comment on above: Order Comment: Speci men Type: BLOOD SPECIMENOrdering Facility: [facility] Address: [address] [place] [address] Performed By: #### L IPNF, 38010-7 ####[facility] LABORATORYCLIA [id number] [address] [place] CBC panel Auto (Bld)on 03-02 Erythrocyte distribution width (RBC) [Ratio] 13.1 % Normal 11.5-15.0 [facility] Comment on above: Order Comment: Speci men Type: BLOOD SPECIMENOrdering Facility: [facility] Address: [address] [place] [address] Performed By: #### 5 8410-2 ####[facility] LABORATORYCLIA [id number] [address] [place] Hematocrit (Bld) [Volume fraction] 40.6 % Normal 39.0-51.0 [facility] Comment on above: Order Comment: Speci men Type: BLOOD SPECIMENOrdering Facility: [facility] Address: [address] [place] [address] Performed By: #### 5 8410-2 ####[facility] LABORATORYCLIA [id number] [address] [place] Hemoglobin (Bld) [Mass/Vol] 13.4 g/dL Normal 13.0-17.0 [facility] Comment on above: Order Comment: Speci men Type: BLOOD SPECIMENOrdering Facility: [facility] Address: [address] [place] [address] Performed By: #### 5 8410-2 ####[facility] LABORATORYCLIA [id number] [address] MCH (RBC) [Entitic mass] 29.6 pg Normal 26.0-34.0 [facility] Comment on above: Order Comment: Speci men Type: BLOOD SPECIMENOrdering Facility: [facility] [facility] Address: [address] [place] [address] Performed By: #### 5 8410-2 ####[facility]PINOS[facility] LABORATORYCLIA [id number] [address] MCHC (RBC) [Mass/Vol] 33.0 g/dL Normal 30.5-36.0 [facility] Comment on above: Order Comment: Speci men Type: BLOOD SPECIMENOrdering Facility: [facility] Address: [address] [place] [address] Performed By: #### 5 8410-2 ####ESPINOSA LABORATORYCLIA [id number] [address] MCV (RBC) [Entitic vol] 89.8 fL Normal 80.0-100.0 [facility] Comment on above: Order Comment: Speci men Type: BLOOD SPECIMENOrdering Facility: [facility] Address: [address] [place] [address] Performed By: #### 5 8410-2 ####ESPINOSA LABORATORYCLIA [id number] [address] Nucleated RBC (Bld) [#/Vol] 10*3/uL Normal <0.01 [facility] Comment on above: Order Comment: Speci men Type: BLOOD SPECIMENOrdering Facility: [facility] Address: [address] [place] [address] Performed By: #### 5 8410-2 ####ESPINOSA LABORATORYCLIA [id number] [address] Platelet mean volume (Bld) [Entitic vol] 11.1 fL Normal 9.0-12.7 [facility] Comment on above: Order Comment: Speci men Type: BLOOD SPECIMENOrdering Facility: [facility] Address: [address] [place] [address] Performed By: #### 5 8410-2 ####ESPINOSA LABORATORYCLIA [id number] [address] Platelets (Bld) [#/Vol] 169 10*3/uL Normal 150-400 [facility] Comment on above: Order Comment: Speci men Type: BLOOD SPECIMENOrdering Facility: [facility] Address: [address] [place] [address] Performed By: #### 5 8410-2 ####ESPINOSA LABORATORYCLIA [id number] [address] [place] RBC (Bld) [#/Vol] 4.52 10*6/uL Normal 4.20-6.00 [facility] Comment on above: Order Comment: Speci men Type: BLOOD SPECIMENOrdering Facility: [facility] Address: [address] [place] [address] Performed By: #### 5 8410-2 ####ESPINOSA LABORATORYCLIA [id number] [address] WBC (Bld) [#/Vol] 9.77 10*3/uL Normal 3.70-11.00 [facility] Comment on above: Order Comment: Speci men Type: BLOOD SPECIMENOrdering Facility: [facility] Address: [address] [place] [address] Performed By: #### 5 8410-2 ####ESPINOSA LABORATORYCLIA [id number] [address] Comprehensive metabolic 2000 panelon 2024 Albumin [Mass/Vol] 3.4 g/dL Low 3.9-4.9 [facility] Comment on above: Order Comment: Speci men Type: BLOOD SPECIMENOrdering Facility: [facility] Address: [address] [place] [address] Performed By: #### 2 4323-8 ####ESPINOSA LABORATORYCLIA [id number] [address] [place] ALP [Catalytic activity/Vol] 65 U/L Normal 38-113 [facility] Comment on above: Order Comment: Speci men Type: BLOOD SPECIMENOrdering Facility: [facility] Address: [address] [place] [address] Performed By: #### 2 4323-8 ####ESPINOSA LABORATORYCLIA [id number] [place], [place] [address] [place] [address] [place] ALT [Catalytic activity/Vol] 8 U/L Low 10-54 [facility] Comment on above: Order Comment: Speci men Type: BLOOD SPECIMENOrdering Facility: [facility] Address: [address] [place] [address] Performed By: #### 2 4323-8 ####ESPINOSA LABORATORYCLIA [id number] [place] [address] [place] Anion gap [Moles/Vol] 7 mmol/L Low 8-15 [facility] Comment on above: Order Comment: Speci men Type: BLOOD SPECIMENOrdering Facility: [facility] Address: [address] [place] [address] Performed By: #### 2 4323-8 ####ESPINOSA LABORATORYCLIA [id number] [address] [place] AST [Catalytic activity/Vol] 13 U/L Low 14-40 [facility] Comment on above: Order Comment: Speci men Type: BLOOD SPECIMENOrdering Facility: [facility] Address: [address] [place] [address] Performed By: #### 2 4323-8 ####ESPINOSA LABORATORYCLIA [id number] [place] [address] [place] Bilirubin [Mass/Vol] 0.5 mg/dL Normal 0.2-1.3 [facility] Comment on above: Order Comment: Speci men Type: BLOOD SPECIMENOrdering Facility: [facility] Address: [address] [place] [address] Performed By: #### 2 4323-8 ####ESPINOSA LABORATORYCLIA [id number] [place] [address] [place] Calcium [Mass/Vol] 8.7 mg/dL Normal 8.5-10.2 [facility] Comment on above: Order Comment: Speci men Type: BLOOD SPECIMENOrdering Facility: [facility] Address: [address] [place] [address] Performed By: #### 2 4323-8 ####ESPINOSA LABORATORYCLIA [id number] [place] [address] [place] Chloride [Moles/Vol] 106 mmol/L Normal 98-107 [facility] Comment on above: Order Comment: Speci men Type: BLOOD SPECIMENOrdering Facility: [facility] Address: [address] [place] [address] Performed By: #### 2 4323-8 ####ESPINOSA LABORATORYCLIA [id number] [place] [address] [place] CO2 [Moles/Vol] 28 mmol/L Normal 22-30 [facility] Comment on above: Order Comment: Speci men Type: BLOOD SPECIMENOrdering Facility: [facility] Address: [address] [place] [address] Performed By: #### 2 4323-8 ####ESPINOSA LABORATORYCLIA [id number] [address] [place] Creatinine [Mass/Vol] 1.02 mg/dL Normal 0.73-1.22 [facility] Comment on above: Order Comment: Ruperti men Type: BLOOD SPECIMENOrdering Facility: [facility] Address: [address] [place] [address] Performed By: #### 2 4323-8 ####ESPINOSA LABORATORYCLIA [id number] [address] Creatinine and Glomerular filtration rate.predicted panel (S/P/Bld) 71 mL/min/1.73m??? Normal >=60 [facility] Comment on above: Order Comment: Speci men Type: BLOOD SPECIMENOrdering Facility: [facility] Address: [address] [place] [address] Result Comment: Radha mated Glomerular Filtration Rate [...] Performed By: #### 2 4323-8 ####ESPINOSA LABORATORYCLIA [id number] [place] [address] [place] Glucose [Mass/Vol] 94 mg/dL Normal 74-99 [facility] Comment on above: Order Comment: Jame amaya Type: BLOOD SPECIMENOrdering Facility: [facility] Address: [address] [place] [address] Result Comment: The [place] Diabetes Association (ADA) provides guidance for cutoff [...] Standards of Medical Care in Diabetes 2016, [place] [employer] Association. Diabetes Care. 2016.39(Suppl 1). Performed By: #### 2 4323-8 ####[place] LABORATORYCLIA [id number] [place] [address] [place] Potassium [Moles/Vol] 4.2 mmol/L Normal 3.7-5.1 [facility] Comment on above: Order Comment: Jame amaya Type: BLOOD SPECIMENOrdering Facility: [facility] Address: [address] [place] [address] Performed By: #### 2 4323-8 ####ESPINOSA LABORATORYCLIA [id number] [place] [id number] [place] Protein [Mass/Vol] 5.8 g/dL Low 6.3-8.0 [facility] Comment on above: Order Comment: Jame amaya Type: BLOOD SPECIMENOrdering Facility: [facility] Address: [address] [place] [address] Performed By: #### 2 4323-8 ####ESPINOSA LABORATORYCLIA [id number] [address] [place] Sodium [Moles/Vol] 141 mmol/L Normal 136-144 [facility] Comment on above: Order Comment: Rupertbrenna amaya Type: BLOOD SPECIMENOrdering Facility: [facility] Address: [address] [place] [id number] Performed By: #### 2 4323-8 ####ESPINOSA LABORATORYCLIA [id number] [address] Urea nitrogen [Mass/Vol] 25 mg/dL High 9-24 [facility] Comment on above: Order Comment: Jame amaya Type: BLOOD SPECIMENOrdering Facility: [facility] Address: [address] [place] [address] Performed By: #### 2 4323-8 ####ESPINOSA LABORATORYCLIA [id number] [address] THERAPY NTon 2024 THERAPY NT HNO ID: [id number] Author: VALERY PLAZA CCC-PENS AND PENCILS DIPPER Service: Speech/Swallow Author Type: Speech Language Pathologist Type: Therapy (PT/OT/Speech/Resp) Filed: 2024 10:35 Note Text: -- Summary: swallow eval -- Speech Therapy Clinical Swallow Evaluation SERVICE DATE: 2024 SERVICE TIME: 1003 to 7669 ROOM: [place] [address] IMPRESSION: Swallow Deficits Identified / Suspected: Oral [...] liquids via cup and straws; -cough post [place] protocol, no further coughing noted; -mild anterior [...] Dysphagia, unspecified Interventions Provided: Clinical Swallow Evaluation (12738) $ Clinical Swallow Evaluation (00505) Billed Units: 1 unit Training and Education [...] for this therapy evaluation/treatment. SIGNATURE: Valery Plaza [facility]-PENS AND PENCILS DIPPER PATIENT NAME: Ayesha Jacobsen DATE: (more content not included)... [facility] 03-01-2024 [facility] HNO ID: [id number] Author: IRENE RICCI RT(R) Service: Radiology Author [...] PATIENT PRESENTS WITH AN IMPLANTABLE OR ATTACHED CANE PILER: No ALLERGIES: Reviewed and unchanged CONTRAST ALLERGY: NO. EXAM: MRI - CONTRAST TYPE: GROUP II PERIPHERAL IV DATA: Inpatient - refer to LDA documentation RADIOLOGY DEPARTMENT: MR; Exam(s) Completed: Head: Routine Brain Protocol by Dr. Gavin SIGNATURE: ART Conway PATIENT NAME: Ayesha Jacobsen DATE: March 01, 2024 TIME: 9:32 AM Normal [facility] CASE MANAGEMon 03-01-2024 CASE MANAGEM HNO ID: [id number] Author: MONIQUE VAZQUEZ LSW Service: ASSESSMENT Author Type: Sample Builder Type: Care Mgt Progress Note Filed: 03/01/2024 15:01 Note Text: CARE MANAGEMENT PROGRESS NOTE SERVICE DATE: 03/01/2024 SERVICE TIME: 2:59 PM LOS: 4 days Needs Prior to Discharge: To Be Determined;Accepting Facility;Bed Availability;OT/PT Evaluation;Precertificatio n Index of Choice Given: Yes (Pt. selected 1). [facility] 2). [facility]) Level of Care Discussed: Care Home Facility SW met w/pt. And spouse bedside along w/bedside nurse. Pt. Has discharge orders. Pt. Maintains he wants to discharge home however pts. expresses concerns that pt. May fall again at home. Pt. And spouse discussed SNF-v-home w/no needs. Pt. And now agreeable to SNF. Choices are 1). [facility] 2). [facility]. SW sent referrals and will follow for responses. Pt. Will need a pre-cert prior to discharge. Dr. Perez updated on the above. SIGNATURE: Monique Vazquez WOUND CARE TECHNICIAN, SAFETY LAMP KEEPER PATIENT NAME: Ayesha Jacobsen DATE: March 01, 2024 TIME: 2:59 PM PAGER/CONTACT #: Normal [facility] CBC panel Auto (Bld)on 03-01 Erythrocyte distribution width (RBC) [Ratio] 13.2 % Normal 11.5-15.0 [facility] Comment on above: Order Comment: Speci men Type: BLOOD SPECIMENOrdering Facility: [facility] Address: [address] [place] [address] Performed By: #### 5 8410-2 ####[place] LABORATORYCLIA [id number] [place] [address] [place] Hematocrit (Bld) [Volume fraction] 40.0 % Normal 39.0-51.0 [facility] Comment on above: Order Comment: Speci men Type: BLOOD SPECIMENOrdering Facility: [facility] Address: [address] [place] [address] Performed By: #### 5 8410-2 ####ESPINOSA LABORATORYCLIA [id number] [address] Hemoglobin (Bld) [Mass/Vol] 13.4 g/dL Normal 13.0-17.0 [facility] Comment on above: Order Comment: Speci men Type: BLOOD SPECIMENOrdering Facility: [facility] Address: [address] [place] [address] Performed By: #### 5 8410-2 ####ESPINOSA LABORATORYCLIA [id number] [address] MCH (RBC) [Entitic mass] 30.1 pg Normal 26.0-34.0 [facility] Comment on above: Order Comment: Speci men Type: BLOOD SPECIMENOrdering Facility: [facility] Address: [address] [place] [address] Performed By: #### 5 8410-2 ####ESPINOS[facility] LABORATORYCLIA [id number] [address] MCHC (RBC) [Mass/Vol] 33.5 g/dL Normal 30.5-36.0 [facility] Comment on above: Order Comment: Speci men Type: BLOOD SPECIMENOrdering Facility: [facility] Address: [address] [place] [address] Performed By: #### 5 8410-2 ####ESPINOS[facility] LABORATORYCLIA [id number] [address] MCV (RBC) [Entitic vol] 89.9 fL Normal 80.0-100.0 [facility] Comment on above: Order Comment: Speci men Type: BLOOD SPECIMENOrdering Facility: [facility] Address: [address] [place] [address] Performed By: #### 5 8410-2 ####ESPINOS[facility] LABORATORYCLIA [id number] [address] Nucleated RBC (Bld) [#/Vol] 10*3/uL Normal <0.01 [facility] Comment on above: Order Comment: Speci men Type: BLOOD SPECIMENOrdering Facility: [facility] Address: [facility] [place] [address] Performed By: #### 5 8410-2 ####ESPINOSA LABORATORYCLIA [id number] [place] [address] [place] Platelet mean volume (Bld) [Entitic vol] 11.8 fL Normal 9.0-12.7 [facility] Comment on above: Order Comment: Speci men Type: BLOOD SPECIMENOrdering Facility: [facility] Address: [address] [place] [address] Performed By: #### 5 8410-2 ####ESPINOSA LABORATORYCLIA [id number] [place] [address] [place] Platelets (Bld) [#/Vol] 164 10*3/uL Normal 150-400 [facility] Comment on above: Order Comment: Speci men Type: BLOOD SPECIMENOrdering Facility: [facility] Address: [address] [place] [address] Performed By: #### 5 8410-2 ####ESPINOSA LABORATORYCLIA [id number] [place] [address] [place] RBC (Bld) [#/Vol] 4.45 10*6/uL Normal 4.20-6.00 [facility] Comment on above: Order Comment: Speci men Type: BLOOD SPECIMENOrdering Facility: [facility] Address: [address] [place] [address] Performed By: #### 5 8410-2 ####ESPINOS[facility] LABORATORYCLIA [id number] [place] [address] [place] WBC (Bld) [#/Vol] 10.07 10*3/uL Normal 3.70-11.00 [facility] Comment on above: Order Comment: Speci men Type: BLOOD SPECIMENOrdering Facility: [facility] Address: [address] [place] [address] Performed By: #### 5 8410-2 ####ESPINOS[facility] LABORATORYCLIA [id number] [address] Comprehensive metabolic 2000 panelon 03-01-2024 Albumin [Mass/Vol] 3.4 g/dL Low 3.9-4.9 [facility] Comment on above: Order Comment: Speci men Type: BLOOD SPECIMENOrdering Facility: [facility] Address: [address] [place] [address] Performed By: #### 2 4323-8 ####ESPINOS[facility] LABORATORYCLIA [id number] [place] [address] [place] ALP [Catalytic activity/Vol] 64 U/L Normal 38-113 [facility] Comment on above: Order Comment: Speci men Type: BLOOD SPECIMENOrdering Facility: [facility] Address: [address] [place] [address] Performed By: #### 2 4323-8 ####ESPINOS[facility] LABORATORYCLIA [id number] [address] ALT [Catalytic activity/Vol] 10 U/L Normal 10-54 [facility] Comment on above: Order Comment: Speci men Type: BLOOD SPECIMENOrdering Facility: [facility] Address: [address] [place] [address] Performed By: #### 2 4323-8 ####ESPINOS[facility] LABORATORYCLIA [id number] [address] [place] Anion gap [Moles/Vol] 12 mmol/L Normal 8-15 [facility] Comment on above: Order Comment: Speci men Type: BLOOD SPECIMENOrdering Facility: [facility] Address: [address] [place] [address] Performed By: #### 2 4323-8 ####ES[facility]OS[facility] LABORATORYCLIA [id number] [address] [place] AST [Catalytic activity/Vol] 23 U/L Normal 14-40 [facility] Comment on above: Order Comment: Speci men Type: BLOOD SPECIMENOrdering Facility: [facility] Address: [address] [place] [address] Performed By: #### 2 4323-8 ####ESPINOS[facility] LABORATORYCLIA [id number] [place] [address] [place] Bilirubin [Mass/Vol] 0.6 mg/dL Normal 0.2-1.3 [facility] Comment on above: Order Comment: Speci men Type: BLOOD SPECIMENOrdering Facility: [facility] Address: [address] [place] [address] Performed By: #### 2 4323-8 ####ESPINOS[facility] LABORATORYCLIA [id number] [place] [address] [place] Calcium [Mass/Vol] 9.1 mg/dL Normal 8.5-10.2 [facility] Comment on above: Order Comment: Speci men Type: BLOOD SPECIMENOrdering Facility: [facility] Address: [address] [place] [address] Performed By: #### 2 4323-8 ####ESPINOS[facility] LABORATORYCLIA [id number] [place] [address] [place] Chloride [Moles/Vol] 106 mmol/L Normal 98-107 [facility] Comment on above: Order Comment: Speci men Type: BLOOD SPECIMENOrdering Facility: [facility] Address: [address] [place] [address] Performed By: #### 2 4323-8 ####ESPINOS[facility] LABORATORYCLIA [id number] [place] [address] [place] CO2 [Moles/Vol] 25 mmol/L Normal 22-30 [facility] Comment on above: Order Comment: Speci men Type: BLOOD SPECIMENOrdering Facility: [facility] Address: [address] [place] [address] Performed By: #### 2 4323-8 ####ES[facility] LABORATORYCLIA [id number] [place] [address] [place] Creatinine [Mass/Vol] 1.05 mg/dL Normal 0.73-1.22 [facility] Comment on above: Order Comment: Speci men Type: BLOOD SPECIMENOrdering Facility: [facility] Address: [address] [place] [address] Performed By: #### 2 4323-8 ####ES[facility] LABORATORYCLIA [id number] [address] [place] Creatinine and Glomerular filtration rate.predicted panel (S/P/Bld) 69 mL/min/1.73m??? Normal >=60 [facility] Comment on above: Order Comment: Jame amyaa Type: BLOOD SPECIMENOrdering Facility: [facility] Address: [address] [place] [address] Result Comment: Radha mated Glomerular Filtration Rate [...] actual GFR. Performed By: #### 2 4323-8 ####[place] LABORATORYCLIA [id number] [place] [address] [place] Glucose [Mass/Vol] 87 mg/dL Normal 74-99 [facility] Comment on above: Order Comment: Jame amaya Type: BLOOD SPECIMENOrdering Facility: [facility] Address: [address] [place] [address] Result Comment: The [place] Diabetes Association (ADA) provides guidance for cutoff [...] Standards of Medical Care in Diabetes 2016, [place] Diabetes Association. Diabetes Care. 2016.39(Suppl 1). Performed By: #### 2 4323-8 ####ES[facility]OS[facility] LABORATORYCLIA [id number] [place] [id number] [place] Potassium [Moles/Vol] 4.1 mmol/L Normal 3.7-5.1 [facility] Comment on above: Order Comment: Jame amaya Type: BLOOD SPECIMENOrdering Facility: [facility] Address: [address] [place] [address] Performed By: #### 2 4323-8 ####ES[facility] LABORATORYCLIA [id number] [address] Protein [Mass/Vol] 6.0 g/dL Low 6.3-8.0 [facility] Comment on above: Order Comment: Speci men Type: BLOOD SPECIMENOrdering Facility: [facility] Address: [address] [place] [address] Performed By: #### 2 4323-8 ####[facility] LABORATORYCLIA [id number] [address] [place] Sodium [Moles/Vol] 143 mmol/L Normal 136-144 [facility] Comment on above: Order Comment: Speci men Type: BLOOD SPECIMENOrdering Facility: [facility] Address: [address] [place] [address] [place] [address] Performed By: #### 2 4323-8 ####[facility] LABORATORYCLIA [id number] [address] [place] Urea nitrogen [Mass/Vol] 26 mg/dL High 9-24 [facility] Comment on above: Order Comment: Speci men Type: BLOOD SPECIMENOrdering Facility: [facility] Address: [address] [place] [address] [place] [address] Performed By: #### 2 4323-8 ####ES[facility] LABORATORYCLIA [id number] [address] OF [facility] MRI BRAIN WO/W IVCONon 03-01 MRI BRAIN WO/W IVCON * * *Final Report* * * DATE OF EXAM: Mar 01 2024 9:46AM [facility] 0295 - MRI BRAIN WO/W IVCON / PROCEDURE REASON: 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 Chronic changes as detailed. [facility] Transcribe Date/Time: Mar 01 2024 10:03A Dictated by : SARAHY GAVIN MD This examination was interpreted and the report reviewed and electronically signed by: SARAHY GAVIN MD on Mar 01 2024 10:10AM EST [id number] [facility] THERAPY NTon 03-01-2024 THERAPY NT HNO ID: [id number] Author: RAVINDRA HANSEN CCC-PENS AND PENCILS DIPPER Service: Speech/Swallow Author Type: Speech Language Pathologist Type: Therapy (PT/OT/Speech/Resp) Filed: 03/01/2024 13:30 Note Text: -- Summary: PENS AND PENCILS DIPPER missed -- [facility] SPEECH THERAPY MISSED VISIT NOTE SERVICE DATE: 03/01/2024 SERVICE TIME: 9:52 am Attempted patient therapy visit, but was unable for the following reason(s): -Not available, MRI --Will re-attempt pending patient availability and as schedule permits -1:10 pm Attempt x2, patient not available (ADL care) SIGNATURE: Ravindra Hansen [facility]-PENS AND PENCILS DIPPER PATIENT NAME: Ayesha Jacobsen DATE: March 01, 2024 TIME: 9:52 AM [facility] CASE MANAGEMon 02-29-2024 CASE MANAGEM HNO ID: [id number] Author: IZA LOWE LISW Service: ? Author Type: Sample Builder Type: Care Mgt Progress Note Filed: 02/29/2024 [...] continue to follow, will approach SNF vs C again with pt as able. Would need insurance pre-cert for SNF. SIGNATURE: ALDEN Hein PATIENT NAME: Ayesha Jacobsen DATE: February 29, 2024 TIME: 4:14 PM PAGER/CONTACT #: [phone] [facility] THERAPY NTon 02-29-2024 THERAPY NT HNO ID: [id number] Author: NATALY KRUSE OTR/Desiree Service: Occupational Therapy Author Type: Occupational Therapist Type: Therapy (PT/OT/Speech/Resp) Filed: 02/29/2024 13:18 Note Text: -- Summary: OT evaluation -- Occupational Therapy Evaluation Summary SERVICE DATE: 02/29/2024 SERVICE TIME: 1145 to 1232 ROOM: [id number]- OT 6 Clicks Score: 20 DISCHARGE RECOMMENDATIONS [...] forgetfulness and difficulty with short term and manager long term care memory. Decreased dynamic standing balance noted requiring [...] living (ADL) TREATMENT INTERVENTIONS Evaluation, Therapeutic Activity (93818), Self Long Term Management (55535) Timed Code Treatment (minutes): 24 Skilled Treatment Time (minutes): 42 TRAINING AND EDUCATION PROVIDED Assistive Device Use, Bed Mobility, Benefits of In-Hospital Mobility, Command Following, Delirium Reduction Techniques, Discharge Planning, Disease Specific Education, Functional Mobility Involving ADLs, Grooming Tasks, Insight into Deficits, Orientation, Role of Occupational Therapy, Standing Balance to Improve [place] with ADLs/Self-Care, Transfer - Sit to Stand [...] Intervention, Dressing Trainin (more content not included)... [facility] THERAPY NT HNO ID: [id number] Author: ROGER HARPER, PT Service: Physical Therapy Author Type: Physical Therapist Type: Therapy (PT/OT/Speech/Resp) Filed: 02/29/2024 11:57 Note Text: -- Summary: PT treat -- Physical Therapy Treatment Summary SERVICE DATE: 02/29/2024 SERVICE TIME: 1046 to 1126 ROOM: [id number] PT 6 Clicks Score: 20 DISCHARGE RECOMMENDATIONS [...] gait and mobility-other TREATMENT INTERVENTIONS Therapeutic Activity (91311) Treatment Minutes: 10 $ Therapeutic Activity (17768) Billed Units: 1 unit Gait Training (51013) Treatment Minutes: 12 $ Gait Training (35881) Billed Units: 1 unit Neuromuscular Reeducation (55953) Treatment Minutes: 16 $ Neuromuscular Reeducation (05370) Billed Units: 1 unit Sidestepping, forward ambulation, retro stepping, tandem walk: 4 x 12' UE support provided throughout and PT guarding at a CGA/SBA level, seated rest breaks taken as needed Gait Training (47242), Therapeutic Activity (77856), Neuromuscular Reeducation (26219) Timed Code Treatment (minutes): 38 Skilled Treatment [...] length decrease (more content not included)... Normal [facility] THERAPY NT HNO ID: [id number] Author: ROGER HARPER PT Service: Physical Therapy Author Type: Physical Therapist Type: Therapy (PT/OT/Speech/Resp) Filed: 02/29/2024 07:59 Note Text: -- Summary: PT missed visit -- PHYSICAL THERAPY MISSED VISIT SERVICE DATE: 02/29/2024 SERVICE TIME: 0756 ROOM: [place] [address] Patient not seen due to Patient Not Available (nursing care). SIGNATURE: Roger Harper PT PATIENT NAME: Ayesha Jacobsen DATE: February 29, 2024 TIME: 7:58 AM Normal [facility] Basic metabolic 2000 panelon 02-28-2024 Anion gap [Moles/Vol] 10 mmol/L Normal 8-15 [facility] Comment on above: Order Comment: Jame amaya Type: BLOOD SPECIMENOrdering Facility: [facility] Address: [facility] [place] [address] Performed By: #### 2 4321-2 ####[place] LABORATORYCLIA [id number] [place] [address] [place] Calcium [Mass/Vol] 8.9 mg/dL Normal 8.5-10.2 [facility] Comment on above: Order Comment: Speci men Type: BLOOD SPECIMENOrdering Facility: [facility] Address: [address] [place] [address] Performed By: #### 2 4321-2 ####[facility] LABORATORYCLIA [id number] [address] [place] [facility] Chloride [Moles/Vol] 108 mmol/L High 98-107 [facility] Comment on above: Order Comment: Speci men Type: BLOOD SPECIMENOrdering Facility: [facility] Address: [address] [place] [address] Performed By: #### 2 4321-2 ####ESPINOSA LABORATORYCLIA [id number] [place] [id number] [place] CO2 [Moles/Vol] 25 mmol/L Normal 22-30 [facility] Comment on above: Order Comment: Speci men Type: BLOOD SPECIMENOrdering Facility: [facility] Address: [address] [place] [address] Performed By: #### 2 4321-2 ####ESPINOS[facility] LABORATORYCLIA [id number] [place] [address] [place] Creatinine [Mass/Vol] 1.24 mg/dL High 0.73-1.22 [facility] Comment on above: Order Comment: Speci men Type: BLOOD SPECIMENOrdering Facility: [facility] Address: [address] [place] [address] Performed By: #### 2 4321-2 ####ESPINOSA LABORATORYCLIA [id number] [address] Creatinine and Glomerular filtration rate.predicted panel (S/P/Bld) 56 mL/min/1.73m??? Low >=60 [facility] Comment on above: Order Comment: Speci men Type: BLOOD SPECIMENOrdering Facility: [facility] Address: [address] [place] [address] Result Comment: Radha mated Glomerular Filtration Rate [...] Performed By: #### 2 4321-2 ####ESPINOSA LABORATORYCLIA [id number] [place] [address] [place] Glucose [Mass/Vol] 92 mg/dL Normal 74-99 [facility] Comment on above: Order Comment: Jame amaya Type: BLOOD SPECIMENOrdering Facility: [facility] Address: [address] [place] [address] Result Comment: The [place] Diabetes Association (ADA) provides guidance for cutoff [...] Standards of Medical Care in Diabetes 2016, [place] [employer]. Diabetes Care. 2016.39(Suppl 1). Performed By: #### 2 4321-2 ####ESPINOS[facility] LABORATORYCLIA [id number] [place] [address] [place] Potassium [Moles/Vol] 4.0 mmol/L Normal 3.7-5.1 [facility] Comment on above: Order Comment: Jame amaya Type: BLOOD SPECIMENOrdering Facility: [facility] Address: [address] [place] [address] Performed By: #### 2 4321-2 ####ESPINOSA LABORATORYCLIA [id number] [place] [id number] [place] Sodium [Moles/Vol] 143 mmol/L Normal 136-144 [facility] Comment on above: Order Comment: Jame amaya Type: BLOOD SPECIMENOrdering Facility: [facility] Address: [address] [place] [address] Performed By: #### 2 4321-2 ####ESPINOS[facility] LABORATORYCLIA [id number] [address] [place] Urea nitrogen [Mass/Vol] 28 mg/dL High 9-24 [facility] Comment on above: Order Comment: Speci men Type: BLOOD SPECIMENOrdering Facility: [facility] Address: [address] [place] [address] Performed By: #### 2 4321-2 ####ESPINOS[facility] LABORATORYCLIA [id number] [address] [place] CBC panel Auto (Bld)on 02-27 Erythrocyte distribution width (RBC) [Ratio] 13.6 % Normal 11.5-15.0 [facility] Comment on above: Order Comment: Speci men Type: BLOOD SPECIMENOrdering Facility: [facility] Address: [address] [place] [address] Performed By: #### 5 8410-2 ####ESPINOS[facility] LABORATORYCLIA [id number] [address] Hematocrit (Bld) [Volume fraction] 42.4 % Normal 39.0-51.0 [facility] Comment on above: Order Comment: Speci men Type: BLOOD SPECIMENOrdering Facility: [facility] Address: [address] [place] [address] Performed By: #### 5 8410-2 ####ESPINOS[facility] LABORATORYCLIA [id number] [address] [place] Hemoglobin (Bld) [Mass/Vol] 13.8 g/dL Normal 13.0-17.0 [facility] Comment on above: Order Comment: Speci men Type: BLOOD SPECIMENOrdering Facility: [facility] Address: [address] [place] [address] Performed By: #### 5 8410-2 ####ESPINOS[facility] LABORATORYCLIA [id number] [address] MCH (RBC) [Entitic mass] 29.6 pg Normal 26.0-34.0 [facility] Comment on above: Order Comment: Speci men Type: BLOOD SPECIMENOrdering Facility: [facility] Address: [address] [place] [address] Performed By: #### 5 8410-2 ####ES[facility] LABORATORYCLIA [id number] [address] [place] MCHC (RBC) [Mass/Vol] 32.5 g/dL Normal 30.5-36.0 [facility] Comment on above: Order Comment: Speci men Type: BLOOD SPECIMENOrdering Facility: [facility] Address: [address] [place] [address] Performed By: #### 5 8410-2 ####ES[facility]OS[facility] LABORATORYCLIA [id number] [address] MCV (RBC) [Entitic vol] 90.8 fL Normal 80.0-100.0 [facility] Comment on above: Order Comment: Speci men Type: BLOOD SPECIMENOrdering Facility: [facility] Address: [address] [place] [address] Performed By: #### 5 8410-2 ####ESPINOS[facility] LABORATORYCLIA [id number] [address] [place] Nucleated RBC (Bld) [#/Vol] 10*3/uL Normal <0.01 [facility] Comment on above: Order Comment: Speci men Type: BLOOD SPECIMENOrdering Facility: [facility] Address: [address] [place] [address] Performed By: #### 5 8410-2 ####ES[facility] LABORATORYCLIA [id number] [address] [place] Platelet mean volume (Bld) [Entitic vol] 10.7 fL Normal 9.0-12.7 [facility] Comment on above: Order Comment: Speci men Type: BLOOD SPECIMENOrdering Facility: [facility] Address: [address] [place] [address] Performed By: #### 5 8410-2 ####ES[facility] LABORATORYCLIA [id number] [address] [place] Platelets (Bld) [#/Vol] 216 10*3/uL Normal 150-400 [facility] Comment on above: Order Comment: Speci men Type: BLOOD SPECIMENOrdering Facility: [facility] Address: [address] [place] [address] Performed By: #### 5 8410-2 ####ES[facility]OS[facility] LABORATORYCLIA [id number] [place] [address] [place] RBC (Bld) [#/Vol] 4.67 10*6/uL Normal 4.20-6.00 [facility] Comment on above: Order Comment: Speci men Type: BLOOD SPECIMENOrdering Facility: [facility] Address: [address] [place] [address] Performed By: #### 5 8410-2 ####ES[facility] LABORATORYCLIA [id number] [address] [place] WBC (Bld) [#/Vol] 11.13 10*3/uL High 3.70-11.00 [facility] Comment on above: Order Comment: Speci men Type: BLOOD SPECIMENOrdering Facility: [facility] Address: [address] [place] [address] Performed By: #### 5 8410-2 ####[facility] LABORATORYCLIA [id number] [address] CONSULT PROGon 02-28-2024 CONSULT PROG HNO ID: [id number] Author: IVETT SELF PA-C Service: Neurology General Author Type: Physician Dispensing Optician Type: Consult Progress Note Filed: 02/28/2024 10:51 [...] hours for Teleneurology please page (not call) [place] [address] account resolution analyst for concerns. [place]CL[place]: During Off hours for Teleneurology please page (not call) [place] [facility] [address] account resolution analyst for concerns. [facility]: There is no off-hours coverage [...] which included preparing to see the patient, [id number] patient care, completing clinical documentation, obtaining and/or reviewing separately obtained history, performing a medically appropriate examination, counseling and educating the patient/family/caregiver and ordering medications, tests, or procedures. [facility] THERAPY NT 02-28-2024 THERAPY NT HNO ID: [id number] Author: WENDY FISHER PT Service: Physical Therapy Author Type: Physical Therapist Type: Therapy (PT/OT/Speech/Resp) Filed: 02/28/2024 11:31 Note Text: -- Summary: PT Eval -- Physical Therapy Evaluation Summary SERVICE DATE: 02/28/2024 SERVICE TIME: 1000 to 1026 ROOM: [id number] PT 6 Clicks Score: 18 DISCHARGE RECOMMENDATIONS [...] and mobility-other TREATMENT INTERVENTIONS Evaluation, Therapeutic Activity (25409), Gait Training (11840) Timed Code Treatment (minutes): 11 Skilled Treatment Time (minutes): 26 $ Evaluation-Low (02282) Billed Units: 1 unit Therapeutic Activity (24370) Treatment Minutes: 3 $ Therapeutic Activity (63196) Billed Units: 0 units Gait Training (60324) Treatment Minutes: 8 $ Gait Training (59430) Billed Units: 1 unit TRAINING AND EDUCATION [...] Limitation Comments: (more content not included)... [facility] HNO ID: [id number] Author: MICHELLE ROLDAN CT Service: Radiology Author [...] PATIENT PRESENTS WITH AN IMPLANTABLE OR ATTACHED CANE PILER: No RADIOLOGY DEPARTMENT: MR; Exam(s) Completed: Head: Routine Brain PERIPHERAL IV DATA: Not applicable SIGNED BY: Paddy Russo RT MELANIE Brooks February 27, 2024 9:43 AM Normal [facility] Ammonia Plas-sCncon 02-27-20 24 Ammonia (P) [Moles/Vol] 17 umol/L Normal 16-60 [facility] Comment on above: Order Comment: Speci men Type: BLOOD SPECIMENOrdering Facility: [facility] Address: [address] [place] [address] Performed By: #### 1 6362-6 ####ESPINOSA LABORATORYCLIA [id number] [place] [address] [place] Basic metabolic 2000 panelon 02-27-2024 Anion gap [Moles/Vol] 10 mmol/L Normal 8-15 [facility] Comment on above: Order Comment: Speci men Type: BLOOD SPECIMENOrdering Facility: [facility] Address: [address] [place] [address] Performed By: #### 2 4321-2 ####ES[facility]OS[facility] LABORATORYCLIA [id number] [place] [address] [place] Calcium [Mass/Vol] 8.7 mg/dL Normal 8.5-10.2 [facility] Comment on above: Order Comment: Speci men Type: BLOOD SPECIMENOrdering Facility: [facility] Address: [address] [place] [address] Performed By: #### 2 4321-2 ####ESPINOS[facility] LABORATORYCLIA [id number] [place] [address] [place] Chloride [Moles/Vol] 107 mmol/L Normal 98-107 [facility] Comment on above: Order Comment: Speci men Type: BLOOD SPECIMENOrdering Facility: [facility] Address: [address] [place] [address] Performed By: #### 2 4321-2 ####ESPINOS[facility] LABORATORYCLIA [id number] [place] [address] [place] CO2 [Moles/Vol] 23 mmol/L Normal 22-30 [facility] Comment on above: Order Comment: Speci men Type: BLOOD SPECIMENOrdering Facility: [facility] Address: [address] [place] [address] Performed By: #### 2 4321-2 ####ESPINOS[facility] LABORATORYCLIA [id number] [place] [id number] [place] Creatinine [Mass/Vol] 1.45 mg/dL High 0.73-1.22 [facility] Comment on above: Order Comment: Jame amaya Type: BLOOD SPECIMENOrdering Facility: [facility] Address: [address] [place] [address] Performed By: #### 2 4321-2 ####ESPINOS[facility] LABORATORYCLIA [id number] [place] [id number] [facility] Creatinine and Glomerular filtration rate.predicted panel (S/P/Bld) 47 mL/min/1.73m??? Low >=60 [facility] Comment on above: Order Comment: Jame amaya Type: BLOOD SPECIMENOrdering Facility: [facility] Address: [address] [place] [address] Result Comment: Radha mated Glomerular Filtration Rate [...] actual GFR. Performed By: #### 2 4321-2 ####[facility] LABORATORYCLIA [id number] [place] [id number] [place] Glucose [Mass/Vol] 85 mg/dL Normal 74-99 [facility] Comment on above: Order Comment: Jame amaya Type: BLOOD SPECIMENOrdering Facility: [facility] Address: [address] [place] [address] Result Comment: The [place] Diabetes Association (ADA) provides guidance for cutoff [...] Standards of Medical Care in Diabetes 2016, [place] Diabetes [employer]. Diabetes Care. 2016.39(Suppl 1). Performed By: #### 2 4321-2 ####ES[facility] LABORATORYCLIA [id number] [address] Potassium [Moles/Vol] 3.7 mmol/L Normal 3.7-5.1 [facility] Comment on above: Order Comment: Speci men Type: BLOOD SPECIMENOrdering Facility: [facility] Address: [address] [place] [address] Performed By: #### 2 4321-2 ####ES[facility]OS[facility] LABORATORYCLIA [id number] [address] [place] Sodium [Moles/Vol] 140 mmol/L Normal 136-144 [facility] Comment on above: Order Comment: Ruperti men Type: BLOOD SPECIMENOrdering Facility: [facility] Address: [address] [place] [address] Performed By: #### 2 4321-2 ####ESPINOS[facility] LABORATORYCLIA [id number] [address] [place] Urea nitrogen [Mass/Vol] 25 mg/dL High 9-24 [facility] Comment on above: Order Comment: Ruperti men Type: BLOOD SPECIMENOrdering Facility: [facility] Address: [address] [place] [address] Performed By: #### 2 4321-2 ####ESPINOS[facility] LABORATORYCLIA [id number] [address] [place] CASE MGT INIT ASSES 2023 CASE MGT INIT ASSES HNO ID: [id number] Author: MONIQUE VAZQUEZ LSW Service: ASSESSMENT Author Type: Sample Builder Type: Care Mgt Initial Assessment Filed: 02/27/2024 12:50 Note Text: CARE MANAGEMENT: ASSESSMENT AND DISCHARGE PLAN SERVICE DATE: February 27, 2024 SERVICE TIME: 12:49 PM PCP: Daniel Perez MD-verified Primary Contact: Extended Emergency Contact Information Primary Emergency Contact: Marilyn Jacobsen Address: [address] [place], [place] [id number] Relation: Spouse Secondary Emergency Contact: Shay Pop Mobile Relation: Daughter Admission Status: Inpatient Insurance Provider: [facility] [place] Discharge Planning requested by: Per Department Practice Potential Transition Plans Home;To Be Determined Advance Directives Current Advance Directive: None Sap Pi Developer Attempted to Assist with AD Completion: Yes [...] Patient Goal(s): Be able to go home Index of Choice Explained: Index of Choice Given: No Reason Not Given: [...] will follow for needs. SIGNATURE: Monique Vazquez WOUND CARE TECHNICIAN, SAFETY LAMP KEEPER PATIENT NAME: Ayesha Jacobsen DATE: February 27, 2024 TIME: 12:49 PM CONTACT #: Normal [facility] CBC panel Auto (Bld)on 02-26 Erythrocyte distribution width (RBC) [Ratio] 13.7 % Normal 11.5-15.0 [facility] Comment on above: Order Comment: Speci men Type: BLOOD SPECIMENOrdering Facility: [facility] Address: [address] [place] [address] Performed By: #### 5 8410-2 ####ESPINOSA LABORATORYCLIA [id number] [address] Hematocrit (Bld) [Volume fraction] 42.5 % Normal 39.0-51.0 [facility] Comment on above: Order Comment: Speci men Type: BLOOD SPECIMENOrdering Facility: [facility] Address: [address] [place] [address] Performed By: #### 5 8410-2 ####ESPINOS[facility] LABORATORYCLIA [id number] [address] OF [facility] Hemoglobin (Bld) [Mass/Vol] 13.9 g/dL Normal 13.0-17.0 [facility] Comment on above: Order Comment: Speci men Type: BLOOD SPECIMENOrdering Facility: [facility] Address: [address] [place] [address] Performed By: #### 5 8410-2 ####ESPINOS[facility] LABORATORYCLIA [id number] [address] MCH (RBC) [Entitic mass] 29.8 pg Normal 26.0-34.0 [facility] Comment on above: Order Comment: Speci men Type: BLOOD SPECIMENOrdering Facility: [facility] Address: [address] [place] [address] Performed By: #### 5 8410-2 ####ESPINOS[facility] LABORATORYCLIA [id number] [address] MCHC (RBC) [Mass/Vol] 32.7 g/dL Normal 30.5-36.0 [facility] Comment on above: Order Comment: Speci men Type: BLOOD SPECIMENOrdering Facility: [facility] Address: [address] [place] [address] Performed By: #### 5 8410-2 ####ESPINOS[facility] LABORATORYCLIA [id number] [place] [address] [place] MCV (RBC) [Entitic vol] 91.2 fL Normal 80.0-100.0 [facility] Comment on above: Order Comment: Speci men Type: BLOOD SPECIMENOrdering Facility: [facility] Address: [address] [place] [address] Performed By: #### 5 8410-2 ####ESPINOS[facility] LABORATORYCLIA [id number] [address] [place] Nucleated RBC (Bld) [#/Vol] 10*3/uL Normal <0.01 [facility] Comment on above: Order Comment: Speci men Type: BLOOD SPECIMENOrdering Facility: [facility] Address: [address] [place] [address] Performed By: #### 5 8410-2 ####ESPINOS[facility] LABORATORYCLIA [id number] [address] [place] Platelet mean volume (Bld) [Entitic vol] 10.7 fL Normal 9.0-12.7 [facility] Comment on above: Order Comment: Speci men Type: BLOOD SPECIMENOrdering Facility: [facility] Address: [address] [place] [address] Performed By: #### 5 8410-2 ####ESPINOS[facility] LABORATORYCLIA [id number] [address] [place] Platelets (Bld) [#/Vol] 190 10*3/uL Normal 150-400 [facility] Comment on above: Order Comment: Speci men Type: BLOOD SPECIMENOrdering Facility: [facility] Address: [address] [place] [address] Performed By: #### 5 8410-2 ####ESPINOS[facility] LABORATORYCLIA [id number] [place] [address] [facility] [place] RBC (Bld) [#/Vol] 4.66 10*6/uL Normal 4.20-6.00 [facility] Comment on above: Order Comment: Speci men Type: BLOOD SPECIMENOrdering Facility: [facility] Address: [address] [place] [address] Performed By: #### 5 8410-2 ####[facility] LABORATORYCLIA [id number] [place] [id number] [facility] [place] WBC (Bld) [#/Vol] 11.19 10*3/uL High 3.70-11.00 [facility] Comment on above: Order Comment: Speci men Type: BLOOD SPECIMENOrdering Facility: [facility] Address: [address] [place] [address] Performed By: #### 5 8410-2 ####ESPINOSA LABORATORYCLIA [id number] [place] [id number] [facility] CONSULTon 02-27-2024 CONSULT HNO ID: [id number] Author: IVETT SELF PA-C Service: Neurology General Author Type: Physician Dispensing Optician Type: Consults Filed: 02/27/2024 08:44 Note Text: [...] hours for Teleneurology please page (not call) [place] [facility] [address] account resolution analyst for concerns. EUCLID/DEJUANOR/[place]MI [place]: During Off hours for Teleneurology please page (not call) [place] [facility] [address] account resolution analyst for concerns. 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 He is [...] 1 g INTRAVENOUS q 24 H Vince Garcia, AYLEEN.HAND CELL TUBER Stopped at 02/26/242011 meclizine 25 mg tab(s) (ANTIVERT) 25 mg ORAL TID PRN Vince Garcia APRN.HAND CELL TUBER tamsulosin 0.4 mg cap(s) (FLOMAX) 0.4 mg ORAL DAILY Vince Garcia APRN.HAND CELL TUBER pantoprazole DR 20 mg tab(s) (PROTONIX) 20 mg ORAL DAILY (6 AM) Vince Garcia APRN.HAND CELL TUBER 20 mg at 02/27/24 0621 NaCl 0.9% iv infusion 75 mL/hr INTRAVENOUS CONTINUOUS Vince Garcia APRN.HAND CELL TUBER 75 mL/hr at 02/27/24 0032 75 mL/hr [...] ESOPHAGOSCOPY FLEXIBLE REMOVAL FOREIGN BODY 05/27/08 ER [facility] PAST SURGICAL HISTORY OF Mid COLON RESECTION [...] and month (more content not included)... Normal [facility] HISTORY PHYSICALon HISTORY PHYSICAL HNO ID: [id number] Author: DANIEL PEREZ MD Service: Family Practice Author Type: Physician Type: H&P Filed: 02/27/2024 06:28 Note Text: UPDATED HISTORY AND PHYSICAL EXAMINATION SERVICE DATE: 02/27/2024 SERVICE TIME: 6:27 AM SENSITIVE EXAMINATION CONSENT: The sensitive examination was discussed with the Patient or Patient's Authorized Superintendent Horticulture. As applicable, any other physician, advance practice provider, medical student, or other health professional student that will be observing or involved in the sensitive examination for educational or training purposes was discussed with the Patient or Authorized Superintendent Horticulture. The Patient or Authorized Superintendent Horticulture has agreed to proceed with the sensitive [...] DATE: February 27, 2024 TIME: 6:27 AM [facility] MRI BRAIN WO IVCONon 024 MRI BRAIN WO IVCON * * *Final Report* * * DATE OF EXAM: Feb 27 2024 9:57AM [facility] 0294 - MRI BRAIN WO IVCON / [...] remote microhemorrhages in the supratentorial brain parenchyma. Batch Blender: KIERSTEN Transcribe Date/Time: Feb 27 2024 10:13A Dictated by : DEB FUENTES DO This examination was interpreted and the report reviewed and electronically signed by: LOW WU MD on Feb 27 2024 12:29PM EST [id number] [facility] NUTRITIONon 02-27-2024 NUTRITION HNO ID: [id number] Author: IRENE BYNUM RD Service: Nutrition Therapy [...] side. No weight hx to review in [facility] over the past year but last 3 [...] DATE: February 27, 2024 TIME: 10:34 AM [facility] ALLIED HEALTHon 02-26-2024 ALLIED HEALTH HNO ID: [id number] Author: JOHN PAUL MORENO RT(R) Service: ? [...] PATIENT PRESENTS WITH AN IMPLANTABLE OR ATTACHED CANE PILER: No RADIOLOGY DEPARTMENT: General X-ray: Exam(s) Completed: Chest X-Ray PERIPHERAL IV DATA: Not applicable SIGNED BY: RT Sarai(R) February 26, 2024 4:38 PM [facility] Bacteria Ur Culton Bacteria identified Cx Nom (U) CULTURE, URINE: No growth (<1,000 CFU/ml) [facility] Comment on above: Performed By: #### 6 30-4 ####[facility] LABCLIA [id number] [place] [address] [place] CBC W Auto Differential pane l (Bld)on 10-21-2024 Basophils (Bld) [#/Vol] 0.06 10*3/uL Normal <0.11 [facility] Comment on above: Order Comment: Speci men Type: BLOOD SPECIMENOrdering Facility: [facility] Address: [address] [place] [address] Performed By: #### 5 7021-8 ####ESPINOS[facility] LABORATORYCLIA [id number] [place] [address] [place] Basophils/100 WBC (Bld) 0.4 % Normal [facility] Comment on above: Order Comment: Speci men Type: BLOOD SPECIMENOrdering Facility: [facility] Address: [address] [place] [address] Performed By: #### 5 7021-8 ####ES[facility] LABORATORYCLIA [id number] [address] [place] Differential cell count method Nom (Bld) Auto Normal [facility] Comment on above: Order Comment: Speci men Type: BLOOD SPECIMENOrdering Facility: [facility] Address: [address] [place] [address] Performed By: #### 5 7021-8 ####ESPINOS[facility] LABORATORYCLIA [id number] [place] [address] [place] Eosinophils (Bld) [#/Vol] 0.56 10*3/uL High <0.46 [facility] Comment on above: Order Comment: Speci men Type: BLOOD SPECIMENOrdering Facility: [facility] Address: [address] [place] [address] Performed By: #### 5 7021-8 ####ESPINOS[facility] LABORATORYCLIA [id number] [address] [place] Eosinophils/100 WBC (Bld) 3.4 % Normal [facility] Comment on above: Order Comment: Speci men Type: BLOOD SPECIMENOrdering Facility: [facility] Address: [address] [place] [address] Performed By: #### 5 7021-8 ####ESPINOS[facility] LABORATORYCLIA [id number] [place] [address] [place] Erythrocyte distribution width (RBC) [Ratio] 13.6 % Normal 11.5-15.0 [facility] Comment on above: Order Comment: Speci men Type: BLOOD SPECIMENOrdering Facility: [facility] Address: [address] [place] [address] Performed By: #### 5 7021-8 ####ESPINOS[facility] LABORATORYCLIA [id number] [address] [place] Hematocrit (Bld) [Volume fraction] 43.7 % Normal 39.0-51.0 [facility] Comment on above: Order Comment: Speci men Type: BLOOD SPECIMENOrdering Facility: [facility] Address: [address] [place] [address] Performed By: #### 5 7021-8 ####ES[facility]OS[facility] LABORATORYCLIA [id number] [address] [place] Hemoglobin (Bld) [Mass/Vol] 14.7 g/dL Normal 13.0-17.0 [facility] Comment on above: Order Comment: Speci men Type: BLOOD SPECIMENOrdering Facility: [facility] Address: [address] [place] [address] Performed By: #### 5 7021-8 ####ESPINOSA LABORATORYCLIA [id number] [place] [address] [place] Immature granulocytes (Bld) [#/Vol] 0.12 10*3/uL High <0.10 [facility] Comment on above: Order Comment: Speci men Type: BLOOD SPECIMENOrdering Facility: [facility] Address: [address] [place] [address] Performed By: #### 5 7021-8 ####ESPINOSA LABORATORYCLIA [id number] [address] [place] Immature granulocytes/100 WBC (Bld) 0.7 % Normal [facility] Comment on above: Order Comment: Speci men Type: BLOOD SPECIMENOrdering Facility: [facility] Address: [address] [place] [address] Performed By: #### 5 7021-8 ####ESPINOSA LABORATORYCLIA [id number] [place] [address] [place] [facility] [place] Lymphocytes (Bld) [#/Vol] 1.07 10*3/uL Normal 1.00-4.00 [facility] Comment on above: Order Comment: Speci men Type: BLOOD SPECIMENOrdering Facility: [facility] Address: [address] [place] [address] Performed By: #### 5 7021-8 ####ESPINOSA LABORATORYCLIA [id number] [address] Lymphocytes/100 WBC (Bld) 6.5 % Normal [facility] Comment on above: Order Comment: Speci men Type: BLOOD SPECIMENOrdering Facility: [facility] Address: [address] [place] [address] Performed By: #### 5 7021-8 ####ESPINOSA LABORATORYCLIA [id number] [address] MCH (RBC) [Entitic mass] 30.1 pg Normal 26.0-34.0 [facility] Comment on above: Order Comment: Speci men Type: BLOOD SPECIMENOrdering Facility: [facility] Address: [address] [place] [address] Performed By: #### 5 7021-8 ####ESPINOSA LABORATORYCLIA [id number] [address] MCHC (RBC) [Mass/Vol] 33.6 g/dL Normal 30.5-36.0 [facility] Comment on above: Order Comment: Speci men Type: BLOOD SPECIMENOrdering Facility: [facility] Address: [address] [place] [address] Performed By: #### 5 7021-8 ####ESPINOSA LABORATORYCLIA [id number] [address] MCV (RBC) [Entitic vol] 89.5 fL Normal 80.0-100.0 [facility] Comment on above: Order Comment: Speci men Type: BLOOD SPECIMENOrdering Facility: [facility] Address: [address] [place] [address] Performed By: #### 5 7021-8 ####ESPINOSA LABORATORYCLIA [id number] [address] Monocytes (Bld) [#/Vol] 1.04 10*3/uL High <0.87 [facility] Comment on above: Order Comment: Speci men Type: BLOOD SPECIMENOrdering Facility: [facility] Address: [address] [place] [address] Performed By: #### 5 7021-8 ####ESPINOSA LABORATORYCLIA [id number] [address] [place] Monocytes/100 WBC (Bld) 6.3 % Normal [facility] Comment on above: Order Comment: Speci men Type: BLOOD SPECIMENOrdering Facility: [facility] Address: [address] [place] [address] Performed By: #### 5 7021-8 ####ESPINOSA LABORATORYCLIA [id number] [address] [place] Neutrophils (Bld) [#/Vol] 13.58 10*3/uL High 1.45-7.50 [facility] Comment on above: Order Comment: Speci men Type: BLOOD SPECIMENOrdering Facility: [facility] Address: [address] [place] [address] Performed By: #### 5 7021-8 ####ESPINOSA LABORATORYCLIA [id number] [address] Neutrophils/100 WBC (Bld) 82.7 % Normal [facility] Comment on above: Order Comment: Speci men Type: BLOOD SPECIMENOrdering Facility: [facility] Address: [address] [place] [address] Performed By: #### 5 7021-8 ####ESPINOSA LABORATORYCLIA [id number] [address] [place] Nucleated RBC (Bld) [#/Vol] 10*3/uL Normal <0.01 [facility] Comment on above: Order Comment: Speci men Type: BLOOD SPECIMENOrdering Facility: [facility] Address: [address] [place] [address] Performed By: #### 5 7021-8 ####ESPINOSA LABORATORYCLIA [id number] [address] [place] Nucleated RBC/100 WBC (Bld) [Ratio] 0.0 /100 WBC Normal [facility] Comment on above: Order Comment: Speci men Type: BLOOD SPECIMENOrdering Facility: [facility] Address: [address] [place] [address] Performed By: #### 5 7021-8 ####ESPINOSA LABORATORYCLIA [id number] [address] [place] Platelet mean volume (Bld) [Entitic vol] 11.4 fL Normal 9.0-12.7 [facility] Comment on above: Order Comment: Speci men Type: BLOOD SPECIMENOrdering Facility: [facility] Address: [address] [place] [address] Performed By: #### 5 7021-8 ####ESPINOSA LABORATORYCLIA [id number] [address] [place] Platelets (Bld) [#/Vol] 197 10*3/uL Normal 150-400 [facility] Comment on above: Order Comment: Speci men Type: BLOOD SPECIMENOrdering Facility: [facility] Address: [address] [place] [address] Performed By: #### 5 7021-8 ####ESPINOSA LABORATORYCLIA [id number] [address] [place] RBC (Bld) [#/Vol] 4.88 10*6/uL Normal 4.20-6.00 [facility] Comment on above: Order Comment: Speci men Type: BLOOD SPECIMENOrdering Facility: [facility] Address: [address] [place] [address] Performed By: #### 5 7021-8 ####ESPINOSA LABORATORYCLIA [id number] [address] [place] WBC (Bld) [#/Vol] 16.43 10*3/uL High 3.70-11.00 [facility] Comment on above: Order Comment: Speci men Type: BLOOD SPECIMENOrdering Facility: [facility] Address: [address] [place] [address] Performed By: #### 5 7021-8 ####ESPINOSA LABORATORYCLIA [id number] [place] [address] [place] Comprehensive metabolic 2000 panelon 02-26-2024 Albumin [Mass/Vol] 3.8 g/dL Low 3.9-4.9 [facility] Comment on above: Order Comment: Speci men Type: BLOOD SPECIMENOrdering Facility: [facility] Address: [address] [place] [address] Performed By: #### 2 4323-8, ####ESPINOSA LABORATORYCLIA [id number] [place] [id number] [place] ALP [Catalytic activity/Vol] 72 U/L Normal 38-113 [facility] Comment on above: Order Comment: Speci men Type: BLOOD SPECIMENOrdering Facility: [facility] Address: [address] [place] [address] Performed By: #### 2 4323-8, ####ESPINOSA LABORATORYCLIA [id number] [address] [place] ALT [Catalytic activity/Vol] 9 U/L Low 10-54 [facility] Comment on above: Order Comment: Speci men Type: BLOOD SPECIMENOrdering Facility: [facility] Address: [address] [place] [address] Performed By: #### 2 4323-8, ####ESPINOSA LABORATORYCLIA [id number] [place] [id number] [place] Anion gap [Moles/Vol] 12 mmol/L Normal 8-15 [facility] Comment on above: Order Comment: Speci men Type: BLOOD SPECIMENOrdering Facility: [facility] Address: [address] [place] [id number] Performed By: #### 2 4323-8, 14758-5 ####ESPINOSA LABORATORYCLIA [id number] [address] AST [Catalytic activity/Vol] 21 U/L Normal 14-40 [facility] Comment on above: Order Comment: Speci men Type: BLOOD SPECIMENOrdering Facility: [facility] Address: [address] [place] [address] Performed By: #### 2 4323-8, ####ESPINOSA LABORATORYCLIA [id number] [place] [address] [place] Bilirubin [Mass/Vol] 0.9 mg/dL Normal 0.2-1.3 [facility] Comment on above: Order Comment: Speci men Type: BLOOD SPECIMENOrdering Facility: [facility] Address: [address] [place] [address] Performed By: #### 2 4328, ####ESPINOSA LABORATORYCLIA [id number] [place] [address] [place] Calcium [Mass/Vol] 9.3 mg/dL Normal 8.5-10.2 [facility] Comment on above: Order Comment: Speci men Type: BLOOD SPECIMENOrdering Facility: [facility] Address: [address] [place] [address] Performed By: #### 2 4322-12, ####ESPINOSA LABORATORYCLIA [id number] [place] [address] [place] Chloride [Moles/Vol] 101 mmol/L Normal 98-107 [facility] Comment on above: Order Comment: Speci men Type: BLOOD SPECIMENOrdering Facility: [facility] Address: [address] [place] [address] Performed By: #### 2 8, ####ESPINOSA LABORATORYCLIA [id number] [place] [address] [place] CO2 [Moles/Vol] 26 mmol/L Normal 22-30 [facility] Comment on above: Order Comment: Speci men Type: BLOOD SPECIMENOrdering Facility: [facility] Address: [address] [place] [address] Performed By: #### 2 4323-8, ####ESPINOSA LABORATORYCLIA [id number] [place] [address] [place] Creatinine [Mass/Vol] 1.83 mg/dL High 0.73-1.22 [facility] Comment on above: Order Comment: Speci men Type: BLOOD SPECIMENOrdering Facility: [facility] Address: [address] [place] [address] Performed By: #### 2 4323-8, ####ESPINOSA LABORATORYCLIA [id number] [place] [address] [place] Creatinine and Glomerular filtration rate.predicted panel (S/P/Bld) 35 mL/min/1.73m??? Low >=60 [facility] Comment on above: Order Comment: Jame amaya Type: BLOOD SPECIMENOrdering Facility: [facility] Address: [address] [place] [address] Result Comment: Radha mated Glomerular Filtration Rate [...] reflect actual GFR. Performed By: #### 2 4323-8, ####ESPINOSA LABORATORYCLIA [id number] [place] [address] [place] Glucose [Mass/Vol] 114 mg/dL High 74-99 [facility] Comment on above: Order Comment: Jame amaya Type: BLOOD SPECIMENOrdering Facility: [facility] Address: [address] [place] [address] Result Comment: The [place] Diabetes Association (ADA) provides guidance for cutoff [...] Standards of Medical Care in Diabetes 2016, [place] Diabetes Association. Diabetes Care. 2016.39(Suppl 1). Performed By: #### 2 4323-8, ####ESPINOSA LABORATORYCLIA [id number] [place] [address] [place] Potassium [Moles/Vol] 4.3 mmol/L Normal 3.7-5.1 [facility] Comment on above: Order Comment: Speci men Type: BLOOD SPECIMENOrdering Facility: [facility] Address: [address] [place] [address] Performed By: #### 2 4323-8, ####ESPINOSA LABORATORYCLIA [id number] [place] [address] [place] Protein [Mass/Vol] 6.7 g/dL Normal 6.3-8.0 [facility] Comment on above: Order Comment: Speci men Type: BLOOD SPECIMENOrdering Facility: [facility] Address: [address] [place] [address] Performed By: #### 2 4323-8, ####ESPINOSA LABORATORYCLIA [id number] [address] Sodium [Moles/Vol] 139 mmol/L Normal 136-144 [facility] Comment on above: Order Comment: Speci men Type: BLOOD SPECIMENOrdering Facility: [facility] Address: [address] [place] [address] Performed By: #### 2 4323-8, ####ESPINOSA LABORATORYCLIA [id number] [address] [place] Urea nitrogen [Mass/Vol] 27 mg/dL High 9-24 [facility] Comment on above: Order Comment: Speci men Type: BLOOD SPECIMENOrdering Facility: [facility] Address: [address] [place] [address] Performed By: #### 2 4323-8, ####ESPINOSA LABORATORYCLIA [id number] [place] [id number] [facility] [place] ED NOTEon 02-26-2024 ED NOTE HNO ID: [id number] Author: SHAY MARTIN, RN Service: Nursing Author Type: Registered Nurse Type: ED Notes Filed: 02/26/2024 19:57 Note Text: DRAWBRIDGE TENDER is bedside Talking to the faMILY Normal [facility] ED NOTE HNO ID: [id number] Author: SHAY MARTIN RN Service: Nursing Author Type: Registered Nurse Type: ED Notes Filed: 02/26/2024 18:16 Note Text: remains bedside pt is alert to self not to place and time He is cooperative with care [facility] ED NOTE HNO ID: [id number] Author: SHAY MARTIN RN Service: Nursing Author Type: Registered Nurse Type: ED Notes Filed: 02/26/2024 18:15 Note Text: Pt has voided per the urinal 60 cc dark gold/orange colored urine prior to the bladder scan [facility] ED NOTE HNO ID: [id number] Author: SHAY MARTIN RN Service: Nursing Author Type: Registered Nurse Type: ED Notes Filed: 02/26/2024 18:14 Note Text: Bladder scanned for 91 cc urine pt tolerated well [facility] ED NOTE HNO ID: [id number] Author: SHAY MARTIN RN Service: Nursing Author Type: Registered Nurse Type: ED Notes Filed: 02/26/2024 17:19 Note Text: is talking to son on the cell at the bedside [facility] ED NOTE HNO ID: [id number] Author: SHAY MARTIN RN Service: Nursing Author Type: Registered Nurse Type: ED Notes Filed: 02/26/2024 17:14 Note Text: Pt is alert to self not answering all questions is tearful at the bedside [facility] ED PROV NOTEon 02-26-2024 ED PROV NOTE HNO ID: [id number] Author: ULYSSES BROOKS MD Service: Emergency Medicine [...] ESOPHAGOSCOPY FLEXIBLE REMOVAL FOREIGN BODY 05/27/08 ER [facility] PAST SURGICAL HISTORY OF Mid COLON RESECTION [...] nursing note reviewed. Exam conducted with a cd mixer helper present. Constitutional: Comments: The patient is awake. [...] discussed with the Patient or Patient's Authorized Superintendent Horticulture. As applicable, any other physician, advance practice provider, medical student, or other health professional student that will be observing or involved in the sensitive examination for educational or training purposes was discussed with the Patient or Authorized Superintendent Horticulture. The Patient or Authorized Superintendent Horticulture has agreed to proceed with the sensitive [...] 13.58 (*) 1.45 - 7.50 k/uL Abs [place] 1.04 (*) <0.87 k/uL Abs [place] 0.56 (*) <0.46 k/uL Abs Immature Gran 0.12 (*) <0.10 k/uL All other components within normal limits URINALYSIS WITH MICROSCOPIC, REFLEX CULTURE - Abnormal; Notable for the following components: Clarity Slightly Cloudy (*) Clear Bilirubin, Urine 1+ (*) Negative Ketones, Urine Trace (*) Negative Specific [place], Ur >=1.030 (*) 1.005 - 1.030 Hemoglobin/Blood,Ur [...] kidney inju (more content not included)... Normal [facility] ED Triage Noteon 02-26-2024 ED Triage Note HNO ID: [id number] Author: SANTA CRAVEN DO Service: Emergency Medicine [...] bedside clinician. SIGNATURE: Santa Craven DO Normal [facility] Magnesium SerPl-mCncon 02-25 Magnesium [Mass/Vol] 1.8 mg/dL Normal 1.7-2.3 [facility] Comment on above: Order Comment: Speci men Type: BLOOD SPECIMENOrdering Facility: [facility] Address: [address] [place] [address] Performed By: #### 2 4323-8, 07473-6 ####ESPINOSA LABORATORYCLIA [id number] [place] [id number] [place] SEPSIS LACTATEon 02-26-2024 Lactate [Moles/Vol] 2.0 mmol/L Normal 0.5-2.0 [facility] Comment on above: Order Comment: Speci men Type: BLOOD SPECIMENOrdering Facility: [facility] Address: [address] [place] [address] Performed By: #### S LACT ####ESPINOSA LABORATORYCLIA [id number] [place] [id number] [place] Urinalysis complete panel (U )on 02-26-2024 Bilirubin Ql (U) 1+ Abnormal Negative [facility] Comment on above: Order Comment: Speci men Type: URINE SPECIMENOrdering Facility: [facility] Address: [address] [place] [address] Result Comment: Sugg est correlation with clinical findings and serum bilirubin if clinically indicated. Performed By: #### 2 4356-8 ####ESPINOSA LABORATORYCLIA [id number] [address] [place] Clarity (Unsp spec) Slightly Cloudy Abnormal Clear [facility] Comment on above: Order Comment: Speci men Type: URINE SPECIMENOrdering Facility: [facility] Address: [address] [place] [address] Performed By: #### 2 4356-8 ####ESPINOSA LABORATORYCLIA [id number] [address] [place] Color (U) Yellow Normal Yellow [facility] Comment on above: Order Comment: Speci men Type: URINE SPECIMENOrdering Facility: [facility] Address: [address] [place] [address] Performed By: #### 2 4356-8 ####ESPINOSA LABORATORYCLIA [id number] [address] Glucose Test strip (U) [Mass/Vol] Negative Normal Negative [facility] Comment on above: Order Comment: Speci men Type: URINE SPECIMENOrdering Facility: [facility] Address: [address] [place] [address] Performed By: #### 2 4356-8 ####ESPINOS[facility] LABORATORYCLIA [id number] [place] [address] [place] Hemoglobin Ql (U) 3+ Abnormal Negative [facility] Comment on above: Order Comment: Speci men Type: URINE SPECIMENOrdering Facility: [facility] Address: [address] [place] [address] Performed By: #### 2 4356-8 ####ESPINOS[facility] LABORATORYCLIA [id number] [address] [place] Ketones Ql (U) Trace Abnormal Negative [facility] Comment on above: Order Comment: Speci men Type: URINE SPECIMENOrdering Facility: [facility] Address: [address] [place] [address] Performed By: #### 2 4356-8 ####ESPINOS[facility] LABORATORYCLIA [id number] [address] [place] Leukocyte esterase Test strip Ql (U) Negative Normal Negative [facility] Comment on above: Order Comment: Speci men Type: URINE SPECIMENOrdering Facility: [facility] Address: [address] [place] [address] Performed By: #### 2 4356-8 ####ESPINOSA LABORATORYCLIA [id number] [place] [address] [place] Nitrite Ql (U) Negative Normal Negative [facility] Comment on above: Order Comment: Speci men Type: URINE SPECIMENOrdering Facility: [facility] Address: [address] [place] [address] Performed By: #### 2 4356-8 ####ESPINOSA LABORATORYCLIA [id number] [place] [address] [place] pH (U) 5.5 [pH] Normal 5.0-8.0 [facility] Comment on above: Order Comment: Speci men Type: URINE SPECIMENOrdering Facility: [facility] Address: [address] [place] [address] Performed By: #### 2 4356-8 ####ESPINOSA LABORATORYCLIA [id number] [place] [address] [place] Protein (U) [Mass/Vol] 1+ Abnormal Negative [facility] Comment on above: Order Comment: Speci men Type: URINE SPECIMENOrdering Facility: [facility] Address: [address] [place] [address] Performed By: #### 2 4356-8 ####ESPINOSA LABORATORYCLIA [id number] [place] [address] [place] RBC LM.HPF (Urine sed) [#/Area] /[HPF] Abnormal 0-3 /HPF [facility] Comment on above: Order Comment: Speci men Type: URINE SPECIMENOrdering Facility: [facility] Address: [address] [place] [address] Performed By: #### 2 4356-8 ####[place] LABORATORYCLIA [id number] [address] Specific gravity (U) [Rel density] >=1.030 High 1.005-1.03 0 [facility] Comment on above: Order Comment: Speci men Type: URINE SPECIMENOrdering Facility: [facility] Address: [address] [place] [address] Performed By: #### 2 4356-8 ####[place] LABORATORYCLIA [id number] [address] [place] Urobilinogen Ql (U) 0.2 EU/dL Normal 0.2-1.0 EU/dL [facility] Comment on above: Order Comment: Speci men Type: URINE SPECIMENOrdering Facility: [facility] Address: [address] [place] [address] Performed By: #### 2 4356-8 ####[facility]ITALCLIA [id number] [address] WBC LM.HPF (Urine sed) [#/Area] 6-10 /HPF Abnormal 0-5 /HPF [facility] Comment on above: Order Comment: Speci men Type: URINE SPECIMENOrdering Facility: [facility] Address: [address] [place] [address] Performed By: #### 2 4356-8 ####[facility]ENTERIA [id number] [address] [place] XR CHEST 2V FRONTAL/LATon XR CHEST 2V [...] IMPRESSION: No developing abnormality or acute process Batch Blender: KIERSTEN Transcribe Date/Time: Feb 26 2024 4:48P Dictated by : MALU LOPES MD This examination was interpreted and the report reviewed and electronically signed by: MALU LOPES MD on Feb 26 2024 4:49PM EST [id number] [facility] HNO ID: [id number] Author: DANIEL PEREZ MD Service: Family Practice [...] IN THE HOSPITAL: you were seen in [place] ER for episode of dizziness and found to have urinary retention and UTI. Esteves placed, transfer to [facility] to r/o stroke. Your MRI was negative. Esteves was removed. Antibiotics sent to [facility] [place] OTHER PROBLEMS/DIAGNOSIS: Principal Problem: Dizziness Active Problems: [...] call for appointment?: Yes Daniel Perez MD [phone] [facility] [address] PCP Requested Referral GENERAL: alert, no distress, [...] intact., FOLLOW-UP APPOINTMENTS ALREADY SCHEDULED WITH A [facility] PROVIDER: Future Appointments Date Time Provider Department Center 03/12/2024 11:30 AM Karen Tiwari APRN.HAND CELL TUBER GENSWS [place] 07/15/2024 10:30 AM ECHOCARDIOGRAM WSTR CARDWS [place] 07/22/2024 3:20 PM Fabricio Hall MD CAWSTR [place] ALLERGIES Allergen Reactions Eggs [Egg] Hives, [...] Your Medications These medications were sent to [facility] - [place] [address] - [address] - [phone] [address] [place] [address] ciprofloxacin HCl 500 mg tablet meclizine 25 [...] Provider, RN, Patient I have performed the apet-fs-orvq and relevant services for a total of < 30 minutes. SIGNATURE: Daniel Perez MD DATE: February 26, 2024 TIME: 8:16 AM [facility] ALLIED HEALTHon 02-23-2024 [facility] HNO ID: [id number] Author: MARIAN MUHAMMAD CT Service: Radiology Author Type: Cardiac Cath Rn Type: Allied Health Filed: 02/23/2024 11:48 Note [...] PATIENT PRESENTS WITH AN IMPLANTABLE OR ATTACHED CANE PILER: No RADIOLOGY DEPARTMENT: MR; Exam(s) Completed: Head: Routine Brain PERIPHERAL IV DATA: Not applicable SIGNED BY: MELANIE Zafar February 23, 2024 11:44 AM [facility] CBC panel Auto (Bld)on 02-22 Erythrocyte distribution width (RBC) [Ratio] 13.7 % Normal 11.5-15.0 [facility] Comment on above: Order Comment: Jame amaya Type: BLOOD SPECIMENOrdering Facility: [facility] Address: [address] [place] [address] Performed By: #### 5 8410-2 ####[facility] LABORATORYCLIA [id number] [place] [address] [place] Hematocrit (Bld) [Volume fraction] 43.3 % Normal 39.0-51.0 [facility] Comment on above: Order Comment: Speci men Type: BLOOD SPECIMENOrdering Facility: [facility] Address: [address] [place] [address] Performed By: #### 5 8410-2 ####[facility] LABORATORYCLIA [id number] [address] Hemoglobin (Bld) [Mass/Vol] 14.2 g/dL Normal 13.0-17.0 [facility] Comment on above: Order Comment: Speci men Type: BLOOD SPECIMENOrdering Facility: [facility] Address: [address] [place] [address] Performed By: #### 5 8410-2 ####[facility] LABORATORYCLIA [id number] [address] MCH (RBC) [Entitic mass] 29.5 pg Normal 26.0-34.0 [facility] Comment on above: Order Comment: Speci men Type: BLOOD SPECIMENOrdering Facility: [facility] Address: [address] [place] [address] Performed By: #### 5 8410-2 ####[facility] LABORATORYCLIA [id number] [address] MCHC (RBC) [Mass/Vol] 32.8 g/dL Normal 30.5-36.0 [facility] Comment on above: Order Comment: Speci men Type: BLOOD SPECIMENOrdering Facility: [facility] Address: [address] [place] [address] Performed By: #### 5 8410-2 ####[facility] LABORATORYCLIA [id number] [address] MCV (RBC) [Entitic vol] 89.8 fL Normal 80.0-100.0 [facility] Comment on above: Order Comment: Speci men Type: BLOOD SPECIMENOrdering Facility: [facility] Address: [address] [place] [address] Performed By: #### 5 8410-2 ####[facility] LABORATORYCLIA [id number] [address] Nucleated RBC (Bld) [#/Vol] 10*3/uL Normal <0.01 [facility] Comment on above: Order Comment: Speci men Type: BLOOD SPECIMENOrdering Facility: [facility] Address: [address] [place] [address] Performed By: #### 5 8410-2 ####[facility] LABORATORYCLIA [id number] [address] [place] Platelet mean volume (Bld) [Entitic vol] 11.0 fL Normal 9.0-12.7 [facility] Comment on above: Order Comment: Speci men Type: BLOOD SPECIMENOrdering Facility: [facility] Address: [address] [place] [address] Performed By: #### 5 8410-2 ####[facility] LABORATORYCLIA [id number] [place] [address] [place] Platelets (Bld) [#/Vol] 199 10*3/uL Normal 150-400 [facility] Comment on above: Order Comment: Speci men Type: BLOOD SPECIMENOrdering Facility: [facility] Address: [address] [place] [address] Performed By: #### 5 8410-2 ####[facility] LABORATORYCLIA [id number] [place] [address] [place] RBC (Bld) [#/Vol] 4.82 10*6/uL Normal 4.20-6.00 [facility] Comment on above: Order Comment: Speci men Type: BLOOD SPECIMENOrdering Facility: [facility] Address: [address] [place] [address] Performed By: #### 5 8410-2 ####[facility] LABORATORYCLIA [id number] [place] [address] [place] WBC (Bld) [#/Vol] 9.45 10*3/uL Normal 3.70-11.00 [facility] Comment on above: Order Comment: Speci men Type: BLOOD SPECIMENOrdering Facility: [facility] Address: [address] [place] [address] Performed By: #### 5 8410-2 ####[facility] LABORATORYCLIA [id number] [place] [address] [place] Elvis 02-23-2024 CNPN Telephone (PANEWO) -- AYESHA JACOBSEN ([id number]) 1935 M Date Time Provider Department 02/23/24 MARY LYNN During your visit today, we recorded the following information about you: Ronda Garcia LPN 02/23/2024 9:36 AM Signed Patient was scheduled for in person [facility] appt at 920am today. Patient did not check in for appt. Looks like patient is admitted in [facility]. Ronda Garcia LPN Allergies As of Date: 02/23/2024 Noted Allergy Reaction EGGS (EGG) 12/14/2015 4 - Hives 12 - Shortness of Breath Date Reviewed: 02/23/2024 Reviewed by: Roger Ribeiro, RN - Fully Assessed Prescriptions as of 02/28/2024 [...] Encounter Status:Closed by RONDA GARCIA on 02/28/24 [facility] CONSULTon 02-23-2024 CONSULT HNO ID: [id number] Author: MICHELLE SANTOS MD Service: Neurology General Author Type: Physician Type: Consults Filed: 02/23/2024 09:36 Note Text: TELENEUROLOGY VISIT - New Consultation Name and :Ayesha Jacobsen 1935 Patient consented to teleneurology visit on order for consult. 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. I want to confirm your location in [place]. Virtual visits are a convenient way for [...] pm [place]: 1 pm to 5 pm [facility]: 10 am to 12 pm During weekends, coverage is only during rounding hours. [place]: 1 pm to 5 pm [place]: 8 am to 12 pm [place]: 8 am to 12 pm [place]: 10 am to 12 pm [place]: 1 pm to 5 pm [place]: 1 pm to 5 pm [facility]: 8 am to to 12 pm Statutory holidays do not have teleneuro coverage. [place]: During Off hours for Teleneurology please page (not call) [place] [facility] [id number] account resolution analyst for concerns. [place]: During Off hours for Teleneurology please page (not call) [place] [facility] [id number] account resolution analyst for concerns. [facility]: There is no off-hours coverage [...] mg ORAL Daily (3 PM) Susana Bello APRN.HAND CELL TUBER tamsulosin 0.4 mg cap(s) (FLOMAX) 0.4 mg ORAL AT BEDTIME Susana Bello APRN.HAND CELL TUBER pantoprazole DR 20 mg tab(s) (PROTONIX) 20 mg ORAL DAILY (6 AM) Susana Bello APRN.HAND CELL TUBER 20 mg at 02/23/24 0550 cyanocobalamin 1,000 mcg tab(s) (VITAMIN B-12) 1,000 mcg ORAL DAILY Susana Bello APRN.HAND CELL TUBER meclizine 25 mg tab(s) (ANTIVERT) 25 mg ORAL TID PRN Susana Bello APRN.HAND CELL TUBER cefTRIAXone iv piggyback 1 g in dextrose (iso-osmotic) 50 mL (ROCEPHIN) 1 g INTRAVENOUS q 24 H Susana Bello APRN.HAND CELL TUBER ALLERGIES Allergen Reactions Eggs [Egg] Hives, Shortness of Breath FAMILY HISTORY Problem Relation Age of Onset Cancer Mother colon Cancer Father ? PAST SURGICAL HISTORY Procedure Laterality Date EGD FLEXIBLE FOREIGN BODY REMOVAL 07/24/13 distal stenosis ESOPHAGOSCOPY FLEX BALLOON DILAT <30 MM DIAM 06/27/2008 Esophageal dilatation ESOPHAGOSCOPY FLEX BALLOON DILAT <30 MM DIAM 07/25/08 ESOPHAGOSCOPY FLEXIBLE REMOVAL FOREIGN BODY 05/27/08 ER [facility] PAST SURGICAL HISTORY OF Mid COLON RESECTION REPAIR INGUINAL HERNIA Left 07/25/2017 Tobacco Use: Medium Ri (more content not included)... Normal [facility] CONSULT PROGon 02-23-2024 CONSULT PROG HNO ID: [id number] Author: MICHELLE SANTOS MD Service: Neurology General [...] 2024 TIME: 2:53 PM PAGER/CONTACT #: Normal [facility] Comprehensive metabolic 2000 panelon 02-23-2024 Albumin [Mass/Vol] 3.6 g/dL Low 3.9-4.9 [facility] Comment on above: Order Comment: Speci men Type: BLOOD SPECIMENOrdering Facility: [facility] Address: [address] [place] [address] Performed By: #### 2 4323-8 ####[facility] LABORATORYCLIA [id number] [address] ALP [Catalytic activity/Vol] 72 U/L Normal 38-113 [facility] Comment on above: Order Comment: Speci men Type: BLOOD SPECIMENOrdering Facility: [facility] Address: [address] [place] [address] Performed By: #### 2 4323-8 ####[facility] LABORATORYCLIA [id number] [address] ALT [Catalytic activity/Vol] 5 U/L Low 10-54 [facility] Comment on above: Order Comment: Speci men Type: BLOOD SPECIMENOrdering Facility: [facility] Address: [address] [place] [address] Performed By: #### 2 4323-8 ####[facility] LABORATORYCLIA [id number] [address] Anion gap [Moles/Vol] 7 mmol/L Low 8-15 [facility] Comment on above: Order Comment: Speci men Type: BLOOD SPECIMENOrdering Facility: [facility] Address: [address] [place] [address] Performed By: #### 2 4323-8 ####[facility] LABORATORYCLIA [id number] [place] [address] [place] AST [Catalytic activity/Vol] 14 U/L Normal 14-40 [facility] Comment on above: Order Comment: Speci men Type: BLOOD SPECIMENOrdering Facility: [facility] Address: [address] [place] [address] Performed By: #### 2 4323-8 ####[facility] LABORATORYCLIA [id number] [place] [address] [place] Bilirubin [Mass/Vol] 0.5 mg/dL Normal 0.2-1.3 [facility] Comment on above: Order Comment: Speci men Type: BLOOD SPECIMENOrdering Facility: [facility] Address: [address] [place] [address] Performed By: #### 2 4323-8 ####[facility] LABORATORYCLIA [id number] [place] [address] [place] Calcium [Mass/Vol] 8.9 mg/dL Normal 8.5-10.2 [facility] Comment on above: Order Comment: Speci men Type: BLOOD SPECIMENOrdering Facility: [facility] Address: [address] [place] [address] Performed By: #### 2 4323-8 ####[facility] LABORATORYCLIA [id number] [place] [address] [place] Chloride [Moles/Vol] 109 mmol/L High 98-107 [facility] Comment on above: Order Comment: Speci men Type: BLOOD SPECIMENOrdering Facility: [facility] Address: [address] [place] [address] Performed By: #### 2 4323-8 ####[facility] LABORATORYCLIA [id number] [place] [address] [place] CO2 [Moles/Vol] 27 mmol/L Normal 22-30 [facility] Comment on above: Order Comment: Speci men Type: BLOOD SPECIMENOrdering Facility: [facility] Address: [address] [place] [address] Performed By: #### 2 4323-8 ####[facility] LABORATORYCLIA [id number] [place] [id number] [place] Creatinine [Mass/Vol] 1.00 mg/dL Normal 0.73-1.22 [facility] Comment on above: Order Comment: Jame amaya Type: BLOOD SPECIMENOrdering Facility: [facility] Address: [address] [place] [address] Performed By: #### 2 4323-8 ####[facility] LABORATORYCLIA [id number] [place] [id number] [facility] Creatinine and Glomerular filtration rate.predicted panel (S/P/Bld) 73 mL/min/1.73m??? Normal >=60 [facility] Comment on above: Order Comment: Jame amaya Type: BLOOD SPECIMENOrdering Facility: [facility] Address: [address] [place] [address] Result Comment: Radha mated Glomerular Filtration Rate [...] Performed By: #### 2 4323-8 ####[facility] LABORATORYCLIA [id number] [address] [place] Glucose [Mass/Vol] 83 mg/dL Normal 74-99 [facility] Comment on above: Order Comment: Jame amaya Type: BLOOD SPECIMENOrdering Facility: [facility] Address: [address] [place] [address] Result Comment: The [place] Diabetes Association (ADA) provides guidance for cutoff [...] Standards of Medical Care in Diabetes 2016, [place] Diabetes Association. Diabetes Care. 2016.39(Suppl 1). Performed By: #### 2 4323-8 ####[facility] LABORATORYCLIA [id number] [address] STATES [facility] Potassium [Moles/Vol] 4.2 mmol/L Normal 3.7-5.1 [facility] Comment on above: Order Comment: Speci men Type: BLOOD SPECIMENOrdering Facility: [facility] Address: [address] [place] [address] Performed By: #### 2 4323-8 ####[facility] LABORATORYCLIA [id number] [address] Protein [Mass/Vol] 6.2 g/dL Low 6.3-8.0 [facility] Comment on above: Order Comment: Speci men Type: BLOOD SPECIMENOrdering Facility: [facility] Address: [address] [place] [address] Performed By: #### 2 4323-8 ####[facility] LABORATORYCLIA [id number] [address] Sodium [Moles/Vol] 143 mmol/L Normal 136-144 [facility] Comment on above: Order Comment: Ruperti men Type: BLOOD SPECIMENOrdering Facility: [facility] Address: [address] [place] [address] Performed By: #### 2 4323-8 ####[facility] LABORATORYCLIA [id number] [address] STATES [facility] Urea nitrogen [Mass/Vol] 14 mg/dL Normal 9-24 [facility] Comment on above: Order Comment: Ruperti men Type: BLOOD SPECIMENOrdering Facility: [facility] Address: [address] [place] [address] Performed By: #### 2 4323-8 ####[facility] LABORATORYCLIA [id number] [place] [address] [place] HISTORY PHYSICALon HISTORY PHYSICAL HNO ID: [id number] Author: DANIEL PEREZ MD Service: Family Practice [...] and stenosis of esophagus who presented to [place] [facility] with weakness and dizziness that started 1 week ago and yesterday became worse. He just started using a cane. He states a spinning sensation with mild nausea, but none currently. Denies fevers, confusion, cp, sob, abdominal pain,decreased sensation, no stroke-like symptoms.Esteves was placed at [place] [facility] for retention; had immediately 1000ml out. He was started on rocephin for UTI, given antivert, pyridium, and 1L NS bolus. Transfer from [place] for MRI PAST MEDICAL HISTORY: PAST MEDICAL [...] ESOPHAGOSCOPY FLEXIBLE REMOVAL FOREIGN BODY 05/27/08 ER [facility] PAST SURGICAL HISTORY OF Mid COLON RESECTION [...] -- 88 (more content not included)... Normal [facility] MRI BRAIN WO IVCONon 02-22- 024 MRI BRAIN WO IVCON * * *Final Report* * * DATE OF EXAM: Feb 23 2024 12:04PM [facility] 0294 - MRI BRAIN WO IVCON / [...] acute intracranial process. Chronic changes as detailed. Batch Blender: PSC[facility] Transcribe Date/Time: Feb 23 2024 12:13P Dictated by : DEB KRAMER, This examination was interpreted and the report reviewed and electronically signed by: LAMONT RAYMUNDO MD on Feb 23 2024 12:47PM EST [id number] [facility] THERAPY NTon 02-23-2024 THERAPY NT HNO ID: [id number] Author: FARHANA DUMONT PT Service: Physical Therapy Author Type: Physical Therapist Type: Therapy (PT/OT/Speech/Resp) Filed: 02/23/2024 12:18 Note Text: -- Summary: PT Evaluation -- Physical Therapy Evaluation Summary SERVICE DATE: 02/23/2024 SERVICE TIME: 1110 to 1134 ROOM: [id number] ([facility]) PT 6 Clicks Score: 17 DISCHARGE RECOMMENDATIONS [...] Reinstruction PT order entered with instructions from EXECUTIVE MEETING MANAGER for PT to perform cane training, however [...] on feet TREATMENT INTERVENTIONS Reevaluation, Gait Training (23323), Therapeutic Activity (15905) Timed Code Treatment (minutes): 9 Skilled Treatment [...] Stand with: Cont (more content not included)... [facility] 02-22-2024 [facility] HNO ID: [id number] Author: FADI DE LA ROSA CT Service: Radiology Author Type: Technologist Type: [...] PATIENT PRESENTS WITH AN IMPLANTABLE OR ATTACHED CANE PILER: No ALLERGIES: Reviewed and unchanged CONTRAST ALLERGY: [...] CTA Neck SIGNATURE: Fadi De La Rosa, CT PATIENT NAME: Ayesha Jacobsen DATE: February 22, 2024 TIME: 11:25 AM Normal [facility] CBC W Auto Differential pane l (Bld)on 02-22-2024 Basophils (Bld) [#/Vol] 0.04 10*3/uL Normal <0.11 [facility] Comment on above: Order Comment: Speci men Type: BLOOD SPECIMEN [facility] Address: [address] [place] [address] Performed By: #### 5 7021-8 #### [facility] CLIA [id number] [address] [place] [id number] [place] Basophils/100 WBC (Bld) 0.4 % Normal [facility] Comment on above: Order Comment: Speci men Type: BLOOD SPECIMEN [facility] Address: [address] [place] [address] Performed By: #### 5 7021-8 #### [facility] CLIA [id number] [address] [place] [id number] [place] Differential cell count method Nom (Bld) Auto Normal [facility] Comment on above: Order Comment: Speci men Type: BLOOD SPECIMEN [facility] Address: [address] [place] [address] Performed By: #### 5 7021-8 #### [facility] CLIA [id number] [address] [place] [address] [place] Eosinophils (Bld) [#/Vol] 0.68 10*3/uL High <0.46 [facility] Comment on above: Order Comment: Speci men Type: BLOOD SPECIMEN [facility] Address: [address] [place] [address] Performed By: #### 5 7021-8 #### [facility] CLIA [id number] [address] [place] [address] [place] Eosinophils/100 WBC (Bld) 7.5 % Normal [facility] Comment on above: Order Comment: Speci men Type: BLOOD SPECIMEN [facility] Address: [address] [place] [address] Performed By: #### 5 7021-8 #### [facility] CLIA [id number] [address] [place] [address] [place] Erythrocyte distribution width (RBC) [Ratio] 13.8 % Normal 11.5-15.0 [facility] Comment on above: Order Comment: Speci men Type: BLOOD SPECIMEN [facility] Address: [address] [place] [address] Performed By: #### 5 7021-8 #### [facility] CLIA [id number] [address] [place] [address] [place] Hematocrit (Bld) [Volume fraction] 43.6 % Normal 39.0-51.0 [facility] Comment on above: Order Comment: Speci men Type: BLOOD SPECIMEN [facility] Address: [address] [place] [address] Performed By: #### 5 7021-8 #### [facility] CLIA [id number] [address] [place] [address] [place] Hemoglobin (Bld) [Mass/Vol] 14.0 g/dL Normal 13.0-17.0 [facility] Comment on above: Order Comment: Speci men Type: BLOOD SPECIMEN [facility] Address: [address] [place] [address] Performed By: #### 5 7021-8 #### [facility] CLIA [id number] [address] [place] [address] [place] Immature granulocytes (Bld) [#/Vol] 10*3/uL Normal <0.10 [facility] Comment on above: Order Comment: Speci men Type: BLOOD SPECIMEN [facility] Address: [address] [place] [address] Performed By: #### 5 7021-8 #### [facility] CLIA [id number] [address] [place] [address] [place] Immature granulocytes/100 WBC (Bld) 0.2 % Normal [facility] Comment on above: Order Comment: Speci men Type: BLOOD SPECIMEN [facility] Address: [address] [place] [address] Performed By: #### 5 7021-8 #### [facility] CLIA [id number] [address] [place] [address] [place] Lymphocytes (Bld) [#/Vol] 1.71 10*3/uL Normal 1.00-4.00 [facility] Comment on above: Order Comment: Speci men Type: BLOOD SPECIMEN [facility] Address: [address] [place] [address] Performed By: #### 5 7021-8 #### [facility] CLIA [id number] [address] [place] [address] [place] Lymphocytes/100 WBC (Bld) 18.9 % Normal [facility] Comment on above: Order Comment: Speci men Type: BLOOD SPECIMEN [facility] Address: [address] [place] [address] Performed By: #### 5 7021-8 #### [facility] CLIA [id number] [address] [place] [address] [place] [facility] MCH (RBC) [Entitic mass] 29.7 pg Normal 26.0-34.0 [facility] Comment on above: Order Comment: Speci men Type: BLOOD SPECIMEN [facility] Address: [address] [place] [address] Performed By: #### 5 7021-8 #### [facility] CLIA [id number] [address] [place] [address] [place] MCHC (RBC) [Mass/Vol] 32.1 g/dL Normal 30.5-36.0 [facility] Comment on above: Order Comment: Speci men Type: BLOOD SPECIMEN [facility] Address: [address] [place] [address] Performed By: #### 5 7021-8 #### [facility] CLIA [id number] [address] [place] MCV (RBC) [Entitic vol] 92.4 fL Normal 80.0-100.0 [facility] Comment on above: Order Comment: Speci men Type: BLOOD SPECIMEN [facility] Address: [address] [place] [address] Performed By: #### 5 7021-8 #### [facility] CLIA [id number] [address] [place] [address] [place] Monocytes (Bld) [#/Vol] 0.93 10*3/uL High <0.87 [facility] Comment on above: Order Comment: Speci men Type: BLOOD SPECIMEN [facility] Address: [address] [place] [address] Performed By: #### 5 7021-8 #### [facility] CLIA [id number] [address] [place] [id number] [facility] Monocytes/100 WBC (Bld) 10.3 % Normal [facility] Comment on above: Order Comment: Speci men Type: BLOOD SPECIMEN [facility] Address: [address] [place] [address] Performed By: #### 5 7021-8 #### [facility] CLIA [id number] [address] [place] [address] [place] Neutrophils (Bld) [#/Vol] 5.67 10*3/uL Normal 1.45-7.50 [facility] Comment on above: Order Comment: Speci men Type: BLOOD SPECIMEN [facility] Address: [address] [place] [address] Performed By: #### 5 7021-8 #### [facility] CLIA [id number] [address] [place] [address] [place] Neutrophils/100 WBC (Bld) 62.7 % Normal [facility] Comment on above: Order Comment: Speci men Type: BLOOD SPECIMEN [facility] Address: [address] [place] [address] Performed By: #### 5 7021-8 #### [facility] CLIA [id number] [address] [place] [address] [place] Nucleated RBC (Bld) [#/Vol] Normal [facility] Comment on above: Order Comment: Speci men Type: BLOOD SPECIMEN [facility] Address: [address] [place] [address] Performed By: #### 5 7021-8 #### [facility] CLIA [id number] [address] [place] [address] [place] Nucleated RBC/100 WBC (Bld) [Ratio] Normal [facility] Comment on above: Order Comment: Speci men Type: BLOOD SPECIMEN [facility] Address: [address] [place] [address] Performed By: #### 5 7021-8 #### [facility] CLIA [id number] [address] [place] [address] [place] Platelet mean volume (Bld) [Entitic vol] 11.3 fL Normal 9.0-12.7 [facility] Comment on above: Order Comment: Speci men Type: BLOOD SPECIMEN [facility] Address: [address] [place] [address] Performed By: #### 5 7021-8 #### [facility] [facility] CLIA [id number] [address] [place] [address] [facility] Platelets (Bld) [#/Vol] 126 10*3/uL Low 150-400 [facility] Comment on above: Order Comment: Speci men Type: BLOOD SPECIMEN [facility] Address: [address] [place] [address] Performed By: #### 5 7021-8 #### [address] [facility] CLIA [id number] [address] RBC (Bld) [#/Vol] 4.72 10*6/uL Normal 4.20-6.00 [facility] Comment on above: Order Comment: Speci men Type: BLOOD SPECIMEN [facility] Address: [address] [place] [address] Performed By: #### 5 7021-8 #### [facility] CLIA [id number] [address] WBC (Bld) [#/Vol] 9.05 10*3/uL Normal 3.70-11.00 [facility] Comment on above: Order Comment: Speci men Type: BLOOD SPECIMEN [facility] Address: [address] [place] [address] Performed By: #### 5 7021-8 #### [facility] [facility] CLIA [id number] [address] [place] [address] [facility] CNOVon 02-22-2024 CNOV Office Visit (UCWSTR ) -- AYESHA JACOBSEN ([id number]) 1935 M Date Time Provider Department 02/22/24 [...] care, Referred to ED Report called to [facility] Patient declines going to [facility], and daughter will drive. Allergies As of [...] B-12, (VITAMIN B-12 ORAL) B-12 CAPS - [id number]-TG-[id number]-[id number] e-mv 1.5 mg iron- 8.73 mg CpID [...] Status:Closed by RONDA PERERA on 02/22/24 [address] [facility] CT BRAIN WO IVCONon 02-22-20 CT BRAIN WO IVCON * * *Final Report* * * DATE OF EXAM: Feb 22 2024 11:30AM [facility] 0504 - CT BRAIN WO IVCON / [...] 350 IV Dose-Length Product (DLP): 706.22 (accession [id number]), 1572.25 (accession [id number]), 1572.25 (accession [id number]) mGy*cm. CT Dose Reduction Employed: No dose reduction techniques were required (accession [id number]), Automated exposure control(AEC) and iterative recon (accession [id number]), Automated exposure control(AEC) and iterative recon (accession [id number]) COMPARISON: None. 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 Patent distal intradural vertebral and basilar arteries. [...] changes. Moderate degree of parenchymal volume loss Batch Blender: [facility] Transcribe Date/Time: Feb 22 2024 11:51A Dictated by : DANN BEST MD This examination was interpreted and the report reviewed and electronically signed by: DANN BEST MD on Feb 22 2024 11:59AM EST [id number] Normal [facility] CTA HEAD W IVCONon 4 CTA HEAD W IVCON * * *Final Report* * * DATE OF EXAM: Feb 22 2024 11:39AM [facility] 0022 - CTA HEAD W IVCON / [...] 350 IV Dose-Length Product (DLP): 706.22 (accession [id number]), 1572.25 (accession [id number]), 1572.25 (accession [id number]) mGy*cm. CT Dose Reduction Employed: No dose reduction techniques were required (accession [id number]), Automated exposure control(AEC) and iterative recon (accession [id number]), Automated exposure control(AEC) and iterative recon (accession [id number]) COMPARISON: None. 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 Patent distal intradural vertebral and basilar arteries. [...] changes. Moderate degree of parenchymal volume loss Batch Blender: KIERSTEN Transcribe Date/Time: Feb 22 2024 11:51A Dictated by : DANN BEST MD This examination was interpreted and the report reviewed and electronically signed by: DANN BEST MD on Feb 22 2024 11:59AM EST [id number] Normal [facility] CTA NECK W IVCONon 4 CTA NECK W IVCON * * *Final Report* * * DATE OF EXAM: Feb 22 2024 11:39AM [facility] 0024 - CTA NECK W IVCON / [...] 350 IV Dose-Length Product (DLP): 706.22 (accession [id number]), 1572.25 (accession [id number]), 1572.25 (accession [id number]) mGy*cm. CT Dose Reduction Employed: No dose reduction techniques were required (accession [id number]), Automated exposure control(AEC) and iterative recon (accession [id number]), Automated exposure control(AEC) and iterative recon (accession [id number]) COMPARISON: None. 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 Patent distal intradural vertebral and basilar arteries. [...] changes. Moderate degree of parenchymal volume loss Batch Blender: KIERSTEN Transcribe Date/Time: Feb 22 2024 11:51A Dictated by : DANN BEST MD This examination was interpreted and the report reviewed and electronically signed by: DANN BEST MD on Feb 22 2024 11:59AM EST [id number] Normal [facility] Comprehensive metabolic 2000 panelon 02-22-2024 Albumin [Mass/Vol] 3.5 g/dL Low 3.9-4.9 [facility] Comment on above: Order Comment: Jame amaya Type: BLOOD SPECIMENOrdering Facility: [facility] Address: [address] [place] [address] Performed By: #### 2 4323-8 ####[facility] LABCLIA [id number] [place] [address] [facility] ALP [Catalytic activity/Vol] 69 U/L Normal 38-113 [facility] Comment on above: Order Comment: Jame amaya Type: BLOOD SPECIMENOrdering Facility: [facility] Address: [address] [place] [address] Performed By: #### 2 4323-8 ####[facility] LABCLIA [id number] [place] [address] [place] [facility] ALT With P-5'-P [Catalytic activity/Vol] 8 U/L Low 10-54 [facility] Comment on above: Order Comment: Jame amaya Type: BLOOD SPECIMENOrdering Facility: [facility] Address: [address] [place] [address] Performed By: #### 2 4323-8 ####[facility] LABCLIA [id number] [place] [address] [place] Anion gap [Moles/Vol] 9 mmol/L Normal 8-15 [facility] Comment on above: Order Comment: Speci men Type: BLOOD SPECIMENOrdering Facility: [facility] Address: [address] [place] [address] Performed By: #### 2 4323-8 ####[facility] LABCLIA [id number] [facility] [place] [address] [place] AST With P-5'-P [Catalytic activity/Vol] 13 U/L Low 14-40 [facility] Comment on above: Order Comment: Speci men Type: BLOOD SPECIMENOrdering Facility: [facility] Address: [address] [place] [address] Performed By: #### 2 4323-8 ####[facility] LABCLIA [id number] [place] [address] [place] Bilirubin [Mass/Vol] 0.6 mg/dL Normal 0.2-1.3 [facility] Comment on above: Order Comment: Speci men Type: BLOOD SPECIMENOrdering Facility: [facility] Address: [address] [place] [address] Performed By: #### 2 4323-8 ####[facility] LABCLIA [id number] [facility] [place] [address] [place] Calcium [Mass/Vol] 9.1 mg/dL Normal 8.5-10.2 [facility] Comment on above: Order Comment: Speci men Type: BLOOD SPECIMENOrdering Facility: [facility] Address: [address] [place] [address] Performed By: #### 2 4323-8 ####[facility] LABCLIA [id number] [facility] [place] [address] [place] Chloride [Moles/Vol] 108 mmol/L High 98-107 [facility] Comment on above: Order Comment: Speci men Type: BLOOD SPECIMENOrdering Facility: [facility] Address: [address] [place] [address] Performed By: #### 2 4323-8 ####[facility] LABCLIA [id number] [place] [address] [place] CO2 [Moles/Vol] 26 mmol/L Normal 22-30 [facility] Comment on above: Order Comment: Speci men Type: BLOOD SPECIMENOrdering Facility: [facility] Address: [address] [place] [address] Performed By: #### 2 4323-8 ####[facility] LABCLIA [id number] [place] [address] [place] Creatinine [Mass/Vol] 1.04 mg/dL Normal 0.73-1.22 [facility] Comment on above: Order Comment: Speci men Type: BLOOD SPECIMENOrdering Facility: [facility] Address: [address] [place] [address] Performed By: #### 2 4323-8 ####[facility] LABCLIA [id number] [place] [address] [facility] Creatinine and Glomerular filtration rate.predicted panel (S/P/Bld) 69 mL/min/1.73m??? Normal >=60 [facility] Comment on above: Order Comment: Speci men Type: BLOOD SPECIMENOrdering Facility: [facility] Address: [address] [place] [address] Result Comment: Radha mated Glomerular Filtration Rate [...] actual GFR. Performed By: #### 2 4323-8 ####[facility] LABCLIA [id number] [place] [address] [place] Glucose [Mass/Vol] 77 mg/dL Normal 74-99 [facility] Comment on above: Order Comment: Speci men Type: BLOOD SPECIMENOrdering Facility: [facility] Address: [address] [place] [address] Result Comment: The [place] Diabetes Association (ADA) provides guidance for cutoff [...] Standards of Medical Care in Diabetes 2016, [place] Diabetes Association. Diabetes Care. 2016.39(Suppl 1). Performed By: #### 2 4323-8 ####[facility] [employer] LABCLIA [id number] [place] [address] [place] Potassium [Moles/Vol] 4.1 mmol/L Normal 3.7-5.1 [facility] Comment on above: Order Comment: Speci men Type: BLOOD SPECIMENOrdering Facility: [facility] Address: [address] [place] [address] Performed By: #### 2 4323-8 ####[facility] [employer] LABCLIA [id number] [place] [address] [place] Protein [Mass/Vol] 6.2 g/dL Low 6.3-8.0 [facility] Comment on above: Order Comment: Speci men Type: BLOOD SPECIMENOrdering Facility: [facility] Address: [address] [place] [address] Performed By: #### 2 4323-8 ####[facility] LABCLIA [id number] [place] [address] [place] Sodium [Moles/Vol] 143 mmol/L Normal 136-144 [facility] Comment on above: Order Comment: Speci men Type: BLOOD SPECIMENOrdering Facility: [facility] Address: [address] [place] [address] Performed By: #### 2 4323-8 ####[facility] LABCLIA [id number] [place] [address] [place] Urea nitrogen [Mass/Vol] 18 mg/dL Normal 9-24 [facility] Comment on above: Order Comment: Speci men Type: BLOOD SPECIMENOrdering Facility: [facility] Address: [facility] [place] [id number] Performed By: #### 2 4323-8 ####[facility] LABCLIA [id number] [place] [address] [place] ECG COMPLETEon 02-22-2024 ECG COMPLETE Ventricular Rate : 8 6 BPM Atrial Rate : 86 BPM P-R Interval : 182 ms QRS Duration : 102 ms Q-T Interval : 384 ms QTC Calculation(Bazett) : 459 ms Calculated P [place] : 27 degrees Calculated R [place] : -36 degrees Calculated T [place] : 34 degrees NORMAL SINUS RHYTHM LEFT AXIS DEVIATION MINIMAL VOLTAGE CRITERIA FOR LVH, MAY BE NORMAL VARIANT ( R in aVL ) ABNORMAL ECG NO PREVIOUS ECGS AVAILABLE Confirmed by MD RAMOS VINAYAK ([id number]) on 02/25/2024 10:15:56 PM NAME : AYESHA JACOBSEN PID : [id number] : 1935 Gender : Male Race : ORD : [id number] Procedure Date : Feb 22 2024 10:07:39 Edit Date : Feb 25 2024 22:16:00 Diagnosis: NORMAL SINUS RHYTHM LEFT AXIS DEVIATION MINIMAL VOLTAGE CRITERIA FOR LVH, MAY BE NORMAL VARIANT ( R in aVL ) ABNORMAL ECG NO PREVIOUS ECGS AVAILABLE Confirmed by MD RAMOS VINAYAK ([id number]) on 02/25/2024 10:15:56 PM Test Reason : Chest Pain Location : 191 : [facility] ED Overread By : MD RAMOS VINAYAK Edited By : MD RAMOS VINAYAK Referred By : , Acquired by : BRIGIDA JARRELL [facility] ED NOTEon 02-22-2024 ED NOTE HNO ID: [id number] Author: PIPPA JACKSON, RN Service: Emergency Medicine Author Type: Registered Nurse Type: ED Notes Filed: 02/22/2024 19:24 Note Text: Report to Keagan PEACOCK [facility] ED NOTE HNO ID: [id number] Author: LADI NUR RN Service: ? Author Type: Registered Nurse Type: ED Notes Filed: 02/22/2024 18:16 Note Text: [place] 2 [place]: 253-1 Nurse to Nurse: [phone] [facility] ED NOTE HNO ID: [id number] Author: LADI NUR RN Service: ? Author Type: Registered Nurse Type: ED Notes Filed: 02/22/2024 18:06 Note Text: Pt to be placed in room 253 - will updated transfer center who will call with official transfer details. [facility] ED NOTE HNO ID: [id number] Author: PIPPA JACKSON RN Service: Emergency Medicine Author Type: Registered Nurse Type: ED Notes Filed: 02/22/2024 16:41 Note Text: Pt up walking in hallway with assist. Still notes light dizziness. No needs at this time. Will continue to monitor and maintain safety. [facility] ED NOTE HNO ID: [id number] Author: PIPPA JACKSON RN Service: Emergency Medicine Author Type: Registered Nurse Type: ED Notes Filed: 02/22/2024 15:27 Note Text: Esteves insertion completed. [place], warm, dry. No apparent distress. Alert and oriented. [facility] ED NOTE HNO ID: [id number] Author: CRYSTAL LEW RN Service: ? Author Type: Registered Nurse Type: ED Notes Filed: 02/22/2024 14:48 Note Text: Pt voids per urinal before bladder scan, pt voids approx 20ml [facility] ED NOTE HNO ID: [id number] Author: CRYSTAL LEW RN Service: ? Author Type: Registered Nurse Type: ED Notes Filed: 02/22/2024 12:24 Note Text: Pt provides additional sample [facility] ED NOTE HNO ID: [id number] Author: CRYSTAL LEW RN Service: ? Author Type: Registered Nurse Type: ED Notes Filed: 02/22/2024 09:51 Note Text: Pt c./o dizziness since yesterday morning, pt reports the room was spinning. Pt has slight nausea last night. Pt reports generalized weakness. Pt was at [place] [facility] this am for dizziness and they sent him to ed. [facility] ED PROV NOTEon 02-22-2024 ED PROV NOTE HNO ID: [id number] Author: CRISELDA RM MD Service: ? Author [...] ESOPHAGOSCOPY FLEXIBLE REMOVAL FOREIGN BODY 05/27/08 ER [facility] PAST SURGICAL HISTORY OF Mid COLON RESECTION [...] 126 (*) 150 - 400 k/uL Abs [place] 0.93 (*) <0.87 k/uL Abs Eosin 0.68 [...] for th (more content not included)... Normal [facility] HIGH SENSITIVITY TROPONIN T (INITIAL)on 02-22-2024 Troponin T.cardiac High sensitivity method [Mass/Vol] 26 ng/L High <12 [facility] Comment on above: Order Comment: Jame amaya Type: BLOOD SPECIMENOrdering Facility: [facility] Address: [address] [place] [address] Performed By: #### L [id number] ####[facility] LABCLIA [id number] [place], [place] [id number] [place] [address] HIGH SENSITIVITY TROPONIN T (SECOND)on 02-22-2024 Troponin T.cardiac High sensitivity method [Mass/Vol] 25 ng/L High <12 [facility] Comment on above: Order Comment: Jame amaya Type: BLOOD SPECIMENOrdering Facility: [facility] Address: [address] [place] [address] Performed By: #### L [id number] ####[facility] LABCLIA [id number] [place], [place] [id number] [place] [address] HIGH SENSITIVITY TROPONIN T (THIRD) 3 HRS AFTER INITIALon 02-22-2024 Troponin T.cardiac High sensitivity method [Mass/Vol] 23 ng/L High <12 [facility] Comment on above: Order Comment: Jame amaya Type: BLOOD SPECIMENOrdering Facility: [facility] Address: [address] [place] [address] Performed By: #### L [id number] ####[facility] LABCLIA [id number] [place] [address] [facility] Urinalysis complete pnl Uron 02-22-2024 Urinalysis [...] during collection. Recollect if clinically indicated. Abnormal [facility] Comment on above: Order Comment: Speci men Type: URINE SPECIMENOrdering Facility: [facility] Address: [address] [place] [address] Performed By: #### 2 4356-8 ####[facility] LABCLIA [id number] [place] [address] [facility] LABORATORYCLIA [id number] [place] [address] [facility] XR CHEST 1V FRONTALon 2023 XR CHEST [...] IMPRESSION: No acute radiographic abnormality. Hiatal hernia Batch Blender: KIERSTEN Transcribe Date/Time: Feb 22 2024 11:42A Dictated by : DANN BEST MD This examination was interpreted and the report reviewed and electronically signed by: DANN BEST MD on Feb 22 2024 11:42AM EST [id number] [facility]) -- DELMARAYESHA Ramírez ([id number]) 1935 M Date Time Provider Department 01/25/24 JACQUELINE ESPINAL During your visit today, we recorded the following information about you: Priscilla Colindres 01/25/2024 9:52 AM Signed Cardiac clearance sent to Dr. Hall for clearance for patient to be able to schedule hernia repair surgery with Dr. Espinal in [facility] Priscilla Colindres Dock Builder Priscilla Colindres 02/05/2024 2:52 PM Signed Per office note from Dr. Hall 01/22/2024 3. Preoperative clearance - ICD9: V72.84, ICD10: Z01.818 Patient cleared for his hernia surgery with mild to moderate risk Allergies As of Date: 01/25/2024 Noted Allergy Reaction EGGS (EGG) 12/14/2015 4 - Hives 12 - Shortness of Breath Date Reviewed: 01/22/2024 Reviewed by: Karen Hinds, MADONNA - Fully Assessed Prescriptions as of 03/12/2024 [...] Encounter Status:Closed by HERO WAITE on 03/12/24 [facility] CNOVon 01-22-2024 CNOV Office Visit ([facility] ) -- AYESHA JACOBSEN ([id number]) 1935 M Date Time Provider Department 01/22/24 3:20 PM FABRICIO HALL [facility] During your visit today, we recorded the following information about you: Temperature Pulse Blood pressure Weight 99.1 degrees 92/minute 138/95 68.9 kg Height 1.651 m Fabricio Hall MD 01/22/2024 4:39 PM Signed Fabricio Hall MD Interventional Cardiology [address] [place] [address] [phone] Chief Complaint Patient presents with: Consult HISTORY [...] ESOPHAGOSCOPY FLEXIBLE REMOVAL FOREIGN BODY 05/27/08 ER [facility] PAST SURGICAL HISTORY OF Mid COLON RESECTION [...] vitamin B-12, (VITAMIN B-12 ORAL) B-12 CAPS [id number] e-mv 1.5 mg iron- 8.73 mg CpID [...] 138/95 92 (more content not included)... Normal [facility] 36on 11-25-2023 36 Your fax has been successfully sent to Dr. Daniel Perez at [phone]. -------- -------- 11/25/2023 9:26:49 AM Conversion Record Successfully created cover sheet. Type: application/vnd.openxmlfor mats-officedocument.wordpr ocessingml.document G3 to TIFF #1: Success [image/g3] (37ms) GhostScript TIFF #1: Success [image/tiff] (198ms) Resubmitted: [application/postscript] Word Automation #1: Success [image/tiff] (1499ms) ([id number]:WORKSRV4) 11/25/2023 9:26:33 AM Conversion Record [VLG380N.tmp.PRT] Type: application/postscript G3 to TIFF #1: Success [image/g3] (57ms) GhostScript TIFF #1: Success [image/tiff] (299ms) ([id number]:WORKSRV1) 11/25/2023 9:26:26 AM Origin Record Created by LADAN 11/25/2023 9:26:20 AM Transmission Record Sent to [phone] with remote ID [id number] Result: (0) Success Page record: 1 - 3 Elapsed time: 01:31 on channel 51 [facility] 36 S: Patient's david jeffries with [facility] nurse regarding Refill. B: Will be out tomorrow. A: Lisinopril 5 mg every day, [facility] in [place]. R: Instructed to check with the pharmacy [...] policy Protocols used: Medication Refill and Renewal [facility] CBC (INCLUDES DIFF/PLT)on Basophils (Bld) [#/Vol] 0.047 10*3/uL Normal 0-200 [facility] Comment on above: Performed By: #### 7 600, 25835, 6399 #### [facility] of [place] [address] Ham Curer: Grady Gamino MD Basophils/100 WBC (Bld) 0.6 % Normal [facility] Comment on above: Performed By: #### 7 600, 93154, 6399 #### [facility] [place] [address] [place] Curer: Grady Gamino MD Eosinophils (Bld) [#/Vol] 0.34 10*3/uL Normal 15-500 [facility] Comment on above: Performed By: #### 7 600, 32691, 6399 #### [facility] [place] [address] [place] Curer: Grady Gamino MD Eosinophils/100 WBC (Bld) 4.3 % Normal [facility] Comment on above: Performed By: #### 7 600, 62339, 6399 #### [facility] [place] [address] Ham Curer: Grady Gamino MD Erythrocyte distribution width (RBC) [Ratio] 13.0 % Normal 11.0-15.0 [facility] Comment on above: Performed By: #### 7 600, 12920, 6399 #### [facility] [place] [address] Ham Curer: Grady Gamino MD Hematocrit (Bld) [Volume fraction] 44.0 % Normal 38.5-50.0 [facility] Comment on above: Performed By: #### 7 600, 79982, 6399 #### [facility] [place] [address] Ham Curer: Grady Gamino MD Hemoglobin (Bld) [Mass/Vol] 14.3 g/dL Normal 13.2-17.1 [facility] Comment on above: Performed By: #### 7 600, 91550, 6399 #### [facility] [place] [address] Ham Curer: Grady Gamino MD Lymphocytes (Bld) [#/Vol] 2.022 10*3/uL Normal 850-3900 [facility] Comment on above: Performed By: #### 7 600, 29664, 6399 #### [facility] [place] [address] Ham Curer: Grady Gamino MD Lymphocytes/100 WBC (Bld) 25.6 % Normal [facility] Comment on above: Performed By: #### 7 600, 31459, 6399 #### [facility] [place] [address] Ham Curer: Grady Gamino MD MCH (RBC) [Entitic mass] 29.7 pg Normal 27.0-33.0 [facility] Comment on above: Performed By: #### 7 600, 90578, 6399 #### [facility] [place] [address] Ham Curer: Grady Gamino MD MCHC (RBC) [Mass/Vol] 32.5 g/dL Normal 32.0-36.[address] [facility] Comment on above: Performed By: #### 7 600, 95342, 6399 #### [facility] [place] [address] Ham Curer: Grady Gamino MD MCV (RBC) [Entitic vol] 91.3 fL Normal 80.0-100.0 [facility] Comment on above: Performed By: #### 7 600, 17483, 6399 #### [facility] [place] [address] Ham Curer: Grady Gamino MD Monocytes (Bld) [#/Vol] 0.766 10*3/uL Normal 200-950 [facility] Comment on above: Performed By: #### 7 600, 19133, 6399 #### [facility] of [place] [id number] Ham Curer: Grady Gamino MD Monocytes/100 WBC (Bld) 9.7 % Normal [facility] Comment on above: Performed By: #### 7 600, 09302, 6399 #### [facility] of [address], [address] [place] [address] Ham Curer: Grady Gamino MD Neutrophils (Bld) [#/Vol] 4.724 10*3/uL Normal 8179-6647 [facility] Comment on above: Performed By: #### 7 600, 69300, 6399 #### [facility] of [address], [address] [place] [address] Ham Curer: Grady Gamino MD Neutrophils/100 WBC (Bld) 59.8 % Normal [facility] Comment on above: Performed By: #### 7 600, 49068, 6399 #### [facility] [place] [address] Ham Curer: Grady Gamino MD Platelet mean volume (Bld) [Entitic vol] 10.5 fL Normal 7.5-12.5 [facility] Comment on above: Performed By: #### 7 600, 53212, 6399 #### [facility] [place] [address] Ham Curer: Grady Gamino MD Platelets (Bld) [#/Vol] 152 10*3/uL Normal 140-400 [facility] Comment on above: Performed By: #### 7 600, 92477, 6399 #### [facility] of [address], [address] [place] [address] Ham Curer: Grady Gamino MD RBC (Bld) [#/Vol] 4.82 10*6/uL Normal 4.20-5.80 [facility] Comment on above: Performed By: #### 7 600, 54208, 6399 #### [facility] of [address], [address] [place] [address] Ham Curer: Grady Gamino MD WBC (Bld) [#/Vol] 7.9 10*3/uL Normal 3.8-10.8 [facility] Comment on above: Performed By: #### 7 600, 85672, 6399 #### [facility] [place] [address] Ham Curer: Grady Gamino MD [facility] 09-30-2023 Albumin [Mass/Vol] 3.9 g/dL Normal 3.6-5.1 [facility] Comment on above: Performed By: #### 7 600, 31600, 6399 #### [facility] [place] [address] Ham Curer: Grady Gamino MD Albumin/Globulin [Mass ratio] 1.5 {ratio} Normal 1.0-2.5 [facility] Comment on above: Performed By: #### 7 600, 02635, 6399 #### [facility] [place] [address] Ham Curer: Grady Gamino MD ALP [Catalytic activity/Vol] 56 U/L Normal 35-144 [facility] Comment on above: Performed By: #### 7 600, 10148, 6399 #### [facility] [place] [address] Ham Curer: Grady Gamino MD ALT [Catalytic activity/Vol] 3 U/L Low 9-46 [facility] Comment on above: Performed By: #### 7 600, 87877, 6399 #### [facility] [place] [address] Ham Curer: Grady Gamino MD AST [Catalytic activity/Vol] 14 U/L Normal 10-35 [facility] Comment on above: Performed By: #### 7 600, 55052, 6399 #### [facility] [place] [address] Ham Curer: Grady Gamino MD Bilirubin [Mass/Vol] 0.9 mg/dL Normal 0.2-1.2 [facility] Comment on above: Performed By: #### 7 600, 48289, 6399 #### [facility] of [address], [address] [place] [address] Ham Curer: Grady Gamino MD BUN/CREATININE RATIO SEE NOTE: Normal 6-22 [facility] Comment on above: Result Comment: Not Reported: BUN and Creatinine are within reference range. Performed By: #### 7 600, 07223, 6399 #### [facility] of [address], [address] [place] [address] Ham Curer: Grady Gamino MD Calcium [Mass/Vol] 9.2 mg/dL Normal 8.6-10.3 [facility] Comment on above: Performed By: #### 7 600, 51696, 6399 #### [facility] [place] [address] Ham Curer: Grady Gamino MD Chloride [Moles/Vol] 106 mmol/L Normal 98-110 [facility] Comment on above: Performed By: #### 7 600, 56799, 6399 #### [facility] of [address], [address] [place] [address] Ham Curer: Grady Gamino MD CO2 [Moles/Vol] 26 mmol/L Normal 20-32 [facility] Comment on above: Performed By: #### 7 600, 26964, 6399 #### [facility] [place] [address] Ham Curer: Grady Gamino MD Creatinine [Mass/Vol] 1.08 mg/dL Normal 0.70-1.[address] [facility] Comment on above: Performed By: #### 7 600, 54032, 6399 #### [facility] [place] [address] Ham Curer: Grady Gamino MD GFR/1.73 sq M.predicted among non-blacks MDRD (S/P/Bld) [Vol rate/Area] 66 mL/min/{1.73_m2} Normal > OR = 60 [facility] Comment on above: Performed By: #### 7 600, 84158, 6399 #### [facility] of [address], [address] [place] [address] Ham Curer: Grady Gamino MD Globulin (S) [Mass/Vol] 2.6 g/dL Normal 1.9-3.7 [facility] Comment on above: Performed By: #### 7 600, 70987, 6399 #### [facility] of [address], [address] [place] [address] Ham Curer: Grady Gamino MD Glucose [Mass/Vol] 87 mg/dL Normal 65-99 [facility] Comment on above: Result Comment: Fasting reference interval Performed By: #### 7 600, 25423, 6399 #### [facility] of [address], [address] [place] [address] Ham Curer: Grady Gamino MD Potassium [Moles/Vol] 4.3 mmol/L Normal 3.5-5.[address] [facility] [address] [facility] Comment on above: Performed By: #### 7 600, [id number], 6399 #### [facility] of [address], [address] [place] [address] Ham Curer: Grady Gamino MD Protein [Mass/Vol] 6.5 g/dL Normal 6.1-8.1 [facility] Comment on above: Performed By: #### 7 600, [id number], 6399 #### [facility] of [address], [address] [place] [address] Ham Curer: Grady Gamino MD Sodium [Moles/Vol] 142 mmol/L Normal 135-146 [facility] Comment on above: Performed By: #### 7 600, 52654, 6399 #### [facility] of [place] [address] Ham Curer: Grady Gamino MD Urea nitrogen [Mass/Vol] 25 mg/dL Normal 7-25 [facility] Comment on above: Performed By: #### 7 600, 64652, 6399 #### [facility] of [address], [address] [place] [address] Ham Curer: Grady Gamino MD LIPID PANEL, [facility] 09-06 Cholesterol [Mass/Vol] 230 mg/dL High <200 [facility] Comment on above: Order Comment: FASTI NG:UNKNOWN FASTING: UNKNOWN Performed By: #### 7 600, [id number], 6399 #### [facility] [address], [address] [place] [address] Ham Curer: Grady Gamino MD Cholesterol in HDL [Mass/Vol] 64 mg/dL Normal > OR = 40 [facility] Comment on above: Order Comment: FASTI NG:UNKNOWN FASTING: UNKNOWN Performed By: #### 7 600, [id number], 6399 #### [facility] [address], [address] [place] [address] Ham Curer: Grady Gamino MD Cholesterol in LDL [Mass/Vol] 147 mg/dL High [facility] Comment on above: Order Comment: FASTI NG:UNKNOWN FASTING: UNKNOWN Result Comment: Refe rence range: <100 Desirable range <100 mg/dL for primary prevention; <70 mg/dL for patients with CHD or diabetic patients with > or = 2 CHD risk factors. LDL-C is now calculated using the Leo-[employer] calculation, which is a validated novel method providing better accuracy than the Friedewald equation in the estimation of LDL-C. Leo CHAVIS et al. MARYA. 2013;310(19): 2663-9818 (http://education.[employer]illary [employer].Aviga Systems/faq/AXK538) Performed By: #### 7 600, 04717, 6399 #### [facility] [address], [address] [place] [address] Ham Curer: Grady Gamino MD Cholesterol.total/Chol esterol in HDL [Mass ratio] 3.6 {ratio} Normal <5.0 [facility] Comment on above: Order Comment: FASTI NG:UNKNOWN FASTING: UNKNOWN Performed By: #### 7 600, 85302, 6399 #### [facility] [address], [address] [place] [address] Ham Curer: Grady Gamino MD NON HDL CHOLESTEROL 166 mg/dL (calc) High <130 [facility] Comment on above: Order Comment: FASTI NG:UNKNOWN FASTING: UNKNOWN Result Comment: For patients with diabetes plus 1 major ASCVD risk factor, treating to a non-HDL-C goal of <100 mg/dL (LDL-C of <70 mg/dL) is considered a therapeutic option. Performed By: #### 7 600, 83770, 6399 #### [facility] [address], [address] [place] [address] Ham Curer: Grady Gamino MD Triglyceride [Mass/Vol] 83 mg/dL Normal <150 [facility] Comment on above: Order Comment: FASTI NG:UNKNOWN FASTING: UNKNOWN Performed By: #### 7 600, 67761, 6399 #### [facility] [address], [address] [place], [place] [id number] Ham Curer: Grady Gamino MD Office Visit: : [facility] 11-10-2016 Documentation of current medications (procedure) Done Invalid Interpretation Code [facility] Work Phone: Fall risk assessment Yes [facility] Work Phone: Protein mass conc Done [facility] Work Phone: Tobacco smoking status NHIS Never [facility] Work Phone: Tobacco smoking status [facility] Former smoker [facility] Work Phone: Tobacco use [facility] Former smoker Invalid Interpretation Code [facility] Work Phone: Vital Signs Date Time Vital Sign Value Performing Clinician Facility 12-31-2024 18:24-0400 Body temperature 97.9 [degF] Dr. Gerardo Duque DO Work Phone: [facility] 12-31-2024 18:24-0400 Diastolic blood pressure 67 mm[Hg] Dr. Gerardo Duque DO Work Phone: [facility] 12-31-2024 18:24-0400 Heart rate 100 /min Dr. Gerardo Duque DO Work Phone: [facility] 12-31-2024 18:24-0400 Inhaled oxygen concentration 70 % Dr. Gerardo Ramirez Work Phone: 6(114)251-004066 [place] [address] 12-31-2024 18:24-0400 Inhaled oxygen flow rate 70 L/min Dr. Gerardo Ramirez Work Phone: 8(453)030-577775 [place] [address] 12-31-2024 18:24-0400 Respiratory rate 19 /min Dr. Gerardo Duque DO Work Phone: 2(150)403-825375 [place] [address] 12-31-2024 18:24-0400 SaO2% (BldA) [Mass fraction] 92 % Dr. Gerardo Duque DO Work Phone: 2(999)683-370575 [place] [address] 12-31-2024 18:24-0400 Systolic blood pressure 111 mm[Hg] Dr. Gerardo Ramirez Work Phone: 5(566)242-586775 [place] [address] 12-31-2024 14:52-0400 Body mass index (BMI) [Ratio] 25.2 kg/m2 Dr. Gerardo Ramirez Work Phone: 6(808)272-656575 [place] [address] 12-31-2024 14:52-0400 Body weight 58.[address] Gerardo Ramirez Work Phone: 8(556)371-678375 [place] [address] 12-31-2024 14:26-0400 Body height 152.[address] Gerardo Ramirez Work Phone: 9(402)905-274675 [place] [address] 11-02-2024 09:13-0400 Body temperature 98 [degF] Dr. Gerardo Ramirez Work Phone: 5(204)993-836375 [place] [address] 11-02-2024 09:13-0400 Diastolic blood pressure 80 mm[Hg] Dr. Gerardo Ramirez Work Phone: 9(994)108-325966 [place] [address] 11-02-2024 09:13-0400 Heart rate 84 /min Dr. Gerardo Ramirez Work Phone: 4(995)023-511275 [place] [address] 11-02-2024 09:13-0400 Respiratory rate 18 /min Dr. Gerardo Ramirez Work Phone: 5(054)112-055066 [place] [address] 11-02-2024 09:13-0400 SaO2% (BldA) [Mass fraction] 98 % Dr. Gerardo Le DO Work Phone: 0(649)776-899966 [place] [address] 11-02-2024 09:13-0400 Systolic blood pressure 134 mm[Hg] Dr. Gerardo Ramirez Work Phone: 5(907)249-032366 [place] [address] 11-02-2024 07:20-0400 Body height 152.[address] Gerardo Duque DO Work Phone: 3(424)750-185975 [place] [address] 11-02-2024 07:20-0400 Body mass index (BMI) [Ratio] 28 kg/m2 Dr. Gerardo Ramirez Work Phone: 4(757)661-559766 [place] [address] 11-02-2024 07:20-0400 Body weight 65.[address] Gerardo Ramirez Work Phone: 7(796)215-904375 [place] [address] 10-23-2024 15:25-0400 Body temperature 97.9 [degF] Dr. Gerardo Ramirez Work Phone: 2(558)581-645275 [place] [address] 10-23-2024 15:25-0400 Diastolic blood pressure 84 mm[Hg] Dr. Gerardo Ramirez Work Phone: 8(913)452-323975 [place] [address] 10-23-2024 15:25-0400 Heart rate 80 /min Dr. Gerardo Ramirez Work Phone: 5(827)587-505166 [place] [address] 10-23-2024 15:25-0400 Respiratory rate 18 /min Dr. Gerardo Ramirez Work Phone: 8(775)263-629075 [place] [address] 10-23-2024 15:25-0400 SaO2% (BldA) [Mass fraction] 94 % Dr. Gerardo Ramirez Work Phone: 5(491)276-518066 [place] [address] 10-23-2024 15:25-0400 Systolic blood pressure 110 mm[Hg] Dr. Gerardo Ramirez Work Phone: 2(409)803-629075 [place] [address] 10-23-2024 15:24-0400 Body mass index (BMI) [Ratio] 26.2 kg/m2 Dr. Gerardo Ramirez Work Phone: 7(877)827-846275 [place] [address] 10-23-2024 06:00-0400 Body weight 60.[address] Gerardo Le DO Work Phone: 7(081)747-908266 [place] [address] 10-23-2024 06:00-0400 Inhaled oxygen flow rate 2 L/min Dr. Gerardo Ramirez Work Phone: 7(433)182-044766 [place] [address] 10-20-2024 22:00-0400 Inhaled oxygen concentration 93 % Dr. Gerardo Duque DO Work Phone: 6(562)724-844375 [place] [address] 10-18-2024 10:27-0400 Body height 151.[address] Gerardo Duque DO Work Phone: 7(873)584-178566 [place] [address] 09-27-2024 15:47-0400 Body temperature 97.8 [degF] Dr. Gerardo Ramirez Work Phone: 3(410)409-192675 [place] [address] 09-27-2024 15:47-0400 Diastolic blood pressure 72 mm[Hg] Dr. Gerardo Ramirez Work Phone: 5(316)518-833375 [place] [address] 09-27-2024 15:47-0400 Heart rate 74 /min Dr. Gerardo Ramirez Work Phone: 5(486)447-552675 [place] [address] 09-27-2024 15:47-0400 Respiratory rate 16 /min Dr. Gerardo Ramirez Work Phone: 8(371)177-968375 [place] [address] 09-27-2024 15:47-0400 SaO2% (BldA) [Mass fraction] 92 % Dr. Gerardo Ramirez Work Phone: 4(487)913-521975 [place] [address] 09-27-2024 15:47-0400 Systolic blood pressure 125 mm[Hg] Dr. Gerardo Ramirez Work Phone: 8(989)240-231466 [place] [address] 09-27-2024 13:22-0400 Body mass index (BMI) [Ratio] 27.3 kg/m2 Dr. Gerardo Ramirez Work Phone: 1(727)047-388375 [place] [address] 09-27-2024 03:44-0400 Body weight 63.[address] Gerardo Ramirez Work Phone: 6(276)404-294175 [place] [address] 09-26-2024 09:45-0400 Inhaled oxygen flow rate 2 L/min Dr. Gerardo Ramirez Work Phone: [facility] 09-24-2024 23:31-0400 Body temperature 98.2 [degF] Dr. Gerardo Duque DO Work Phone: 0(310)613-173766 [place] [address] 09-24-2024 23:31-0400 Diastolic blood pressure 60 mm[Hg] Dr. Gerardo Ramirez Work Phone: 9(915)270-642166 [place] [address] 09-24-2024 23:31-0400 Heart rate 108 /min Dr. Gerardo Ramirez Work Phone: 9(633)343-704066 [place] [address] 09-24-2024 23:31-0400 Respiratory rate 22 /min Dr. Gerardo Ramirez Work Phone: 7(048)235-569675 [place] [address] 09-24-2024 23:31-0400 SaO2% (BldA) [Mass fraction] 92 % Dr. Gerardo Ramirez Work Phone: 4(501)348-871566 [place] [address] 09-24-2024 23:31-0400 Systolic blood pressure 130 mm[Hg] Dr. Gerardo Ramirez Work Phone: 4(668)704-546166 [place] [address] 09-24-2024 18:40-0400 Body height 165.[address] Gerardo Ramirez Work Phone: 1(719)627-997866 [place] [address] 09-24-2024 18:40-0400 Body mass index (BMI) [Ratio] 23.8 kg/m2 Dr. Gerardo Ramirez Work Phone: 5(412)595-166866 [place] [address] 09-24-2024 18:40-0400 Body weight 64.[address] Gerardo Ramirez Work Phone: [facility] 09-19-2024 09:52-0400 Body mass index (BMI) [Ratio] 23.63 kg/m2 Nimisha Oseguera MD Work Phone: [facility] 09-19-2024 09:52-0400 Body weight 64.41 kg Nimisha Oseguera MD Work Phone: [facility] 09-19-2024 09:52-0400 Diastolic blood pressure 81 mm[Hg] Nimisha Oseguera MD Work Phone: [facility] 09-19-2024 09:52-0400 Heart rate 102 /min Nimisha Oseguera MD Work Phone: [facility] 09-19-2024 09:52-0400 Respiratory rate 16 /min Nimisha Oseguera MD Work Phone: [facility] 09-19-2024 09:52-0400 SaO2% (BldA) [Mass fraction] 96 % Nimisha Oseguera MD Work Phone: [facility] 09-19-2024 09:52-0400 Systolic blood pressure 134 mm[Hg] Nimisha Oseguera MD Work Phone: [facility] 09-02-2024 16:01-0400 Body mass index (BMI) [Ratio] 23.63 kg/m2 Nimisha Oseguera MD Work Phone: [facility] 09-02-2024 16:01-0400 Body temperature 98.71 [degF] Nimisha Oseguera MD Work Phone: [facility] 09-02-2024 16:01-0400 Body weight 64.41 kg Nimisha Oseguera MD Work Phone: [facility] 09-02-2024 16:01-0400 Diastolic blood pressure 84 mm[Hg] Nimisha Oseguera MD Work Phone: [facility] 09-02-2024 16:01-0400 Heart rate 101 /min Nimisha Oseguera MD Work Phone: [facility] 09-02-2024 16:01-0400 Respiratory rate 14 /min Nimisha Oseguera MD Work Phone: [facility] 09-02-2024 16:01-0400 SaO2% (BldA) [Mass fraction] 98 % Nimisha Oseguera MD Work Phone: [facility] 09-02-2024 16:01-0400 Systolic blood pressure 122 mm[Hg] Nimisha Oseguera MD Work Phone: [facility] 03-27-2024 11:11-0500 Body height 165.1 cm [facility] 1 Work Phone: [facility] 03-27-2024 11:11-0500 Body mass index (BMI) [Ratio] 23.96 kg/m2 [facility] 1 Work Phone: [facility] 03-27-2024 11:11-0500 Body temperature 97.39 [degF] [facility] 1 Work Phone: [facility] 03-27-2024 11:11-0500 Body weight 65.32 kg [facility] 1 Work Phone: [facility] 03-27-2024 11:11-0500 Diastolic blood pressure 82 mm[Hg] [facility] 1 Work Phone: [facility] 03-27-2024 11:11-0500 Heart rate 84 /min [facility] 1 Work Phone: [facility] 03-27-2024 11:11-0500 Respiratory rate 16 /min [facility] 1 Work Phone: [facility] 03-27-2024 11:11-0500 SaO2% (BldA) [Mass fraction] 96 % [facility] 1 Work Phone: [facility] 03-27-2024 11:11-0500 Systolic blood pressure 150 mm[Hg] [facility] 1 Work Phone: [facility] 01-22-2024 15:15-0400 Body height 165.1 cm Fabricio Hall MD Work Phone: [facility] 01-22-2024 15:15-0400 Body mass index (BMI) [Ratio] 25.29 kg/m2 Fabricio Hall MD Work Phone: [facility] 01-22-2024 15:15-0400 Body temperature 99.1 [degF] Fabricio Hall MD Work Phone: [facility] 01-22-2024 15:15-0400 Body weight 68.95 kg Fabricio Hall MD Work Phone: [facility] 01-22-2024 15:15-0400 Diastolic blood pressure 95 mm[Hg] Fabricio Hall MD Work Phone: [facility] 01-22-2024 15:15-0400 Heart rate 92 /min Fabricio Hall MD Work Phone: [facility] 01-22-2024 15:15-0400 SaO2% (BldA) [Mass fraction] 96 % Fabricio Hall MD Work Phone: [facility] 01-22-2024 15:15-0400 Systolic blood pressure 138 mm[Hg] Fabricio Hall MD Work Phone: [facility] 11-10-2023 08:58-0400 Body mass index (BMI) [Ratio] 25.43 kg/m2 [facility] 1 Work Phone: [facility] 11-10-2023 08:58-0400 Body weight 69.31 kg [facility] 1 Work Phone: [facility] 11-10-2023 08:58-0400 Diastolic blood pressure 76 mm[Hg] [facility] 1 Work Phone: [facility] 11-10-2023 08:58-0400 Heart rate 104 /min [facility] 1 Work Phone: [facility] 11-10-2023 08:58-0400 Respiratory rate 17 /min [facility] 1 Work Phone: [facility] 11-10-2023 08:58-0400 SaO2% (BldA) [Mass fraction] 95 % [facility] 1 Work Phone: [facility] 11-10-2023 08:58-0400 Systolic blood pressure 122 mm[Hg] [facility] 1 Work Phone: [facility] 10-27-2023 14:42-0400 Body height 165.1 cm Jacqueline Espinal MD Work Phone: [facility] 10-27-2023 14:42-0400 Body mass index (BMI) [Ratio] 25.49 kg/m2 Jacqueline Espinal MD Work Phone: [facility] 10-27-2023 14:42-0400 Body temperature 97.7 [degF] Jacqueline Espinal MD Work Phone: [facility] 10-27-2023 14:42-0400 Body weight 69.49 kg Jacqueline Espinal MD Work Phone: [facility] 10-27-2023 14:42-0400 Diastolic blood pressure 80 mm[Hg] Jacqueline Espinal MD Work Phone: [facility] 10-27-2023 14:42-0400 Heart rate 104 /min Jacqueline Espinal MD Work Phone: [facility] 10-27-2023 14:42-0400 SaO2% (BldA) [Mass fraction] 98 % Jacqueline Espinal MD Work Phone: [facility] 10-27-2023 14:42-0400 Systolic blood pressure 138 mm[Hg] Jacqueline Espinal MD Work Phone: [facility] 10-10-2023 14:04-0400 Body mass index (BMI) [Ratio] 24.79 kg/m2 Jacqueline Espinal MD Work Phone: [facility] 10-10-2023 14:04-0400 Body temperature 98.49 [degF] Jacqueline Espinal MD Work Phone: [facility] 10-10-2023 14:04-0400 Body weight 69.67 kg Jacqueline Espinal MD Work Phone: [facility] 10-10-2023 14:04-0400 Diastolic blood pressure 84 mm[Hg] Jacqueline Espinal MD Work Phone: [facility] 10-10-2023 14:04-0400 Heart rate 120 /min Jacqueline Espinal MD Work Phone: [facility] 10-10-2023 14:04-0400 SaO2% (BldA) [Mass fraction] 94 % Jacqueline Espinal MD Work Phone: [facility] 10-10-2023 14:04-0400 Systolic blood pressure 134 mm[Hg] Jacqueline Espinal MD Work Phone: [facility] 11-10-2016 08:19-0400 BMI (Body Mass Index) 24.85 kg/m2 Chery Whitley SALES DEPARTMENT SUPERVISOR [facility] Work Phone: 11-10-2016 08:19-0400 Body Temperature 98.2 [degF] Chery Whitley SALES DEPARTMENT SUPERVISOR [facility] Work Phone: 11-10-2016 08:19-0400 BP Diastolic 80 mm[Hg] [facility] Whit[facility] Work Phone: 11-10-2016 08:19-0400 BP Diastolic 78 mm[Hg] Chery Whitley [facility] Work Phone: 11-10-2016 08:19-0400 BP Systolic 146 mm[Hg] Chery Whitley [facility] Work Phone: 11-10-2016 08:19-0400 BP Systolic 142 mm[Hg] Chery Whitley [facility] Work Phone: 11-10-2016 08:19-0400 Height 167.64 cm Chery Whitley [facility] Work Phone: 11-10-2016 08:19-0400 Pulse (Heart Rate) 90 /min Chery Whitley [facility] Work Phone: 11-10-2016 08:19-0400 Respiratory Rate 16 /min Chery Whitley [facility] Work Phone: 11-10-2016 08:19-0400 Weight 69.85 kg Chery Whitley LPN [facility] Work Phone: Encounters Encounter Date Encounter Type Care Provider Facility Start: 12-31-2024 Evaluation and manag ement of inpatient Dr. Richa Richards MD -Intensive Care Unit Work Phone: Start: 12-04-2024 End: 12-04-2024 Refill Nimisha Oseguera MD Work Phone: [facility] Comment on above: Refill Request Metoprolol Start: 11-30-2024 End: 12-03-2024 ambulatory Nimisha Oseguear MD Work Phone: [facility] Comment on above: medication Start: 11-27-2024 End: 11-29-2024 ambulatory Nimisha Oseguera MD Work Phone: [facility] Comment on above: back pain Start: 11-12-2024 End: 11-12-2024 Telephone encounter Nimisha Oseguera MD Work Phone: [facility] Comment on above: [facility] Home Health requ esting records Start: 11-06-2024 End: 11-12-2024 Telephone encounter Nimisha sOeguera MD Work Phone: [facility] Comment on above: Need for HHC order Start: 11-02-2024 End: 11-02-2024 Emergency department patient visit Dr. Gerardo Ramirez Work Phone: -Emergency Department Work Phone: Start: 10-22-2024 End: 10-22-2024 ambulatory Ginette Semen Facility:[facility] Start: 10-22-2024 End: 10-22-2024 Non-patient / Non-visit Dr. Matthew Chavarria MD -[facility] Work Phone: Start: 10-22-2024 Non-patient / Non-visit Dr. Osmani Gaxiola [facility] Work Phone: Start: 10-21-2024 Non-patient / Non-visit Dr. Osmani Gaxiola [facility] Work Phone: Start: 10-16-2024 Non-patient / Non-visit Dr. Osmani Gaxiola [facility] Work Phone: Start: 10-15-2024 Non-patient / Non-visit Dr. Osmani Gaxiola [facility] Work Phone: Start: 10-14-2024 End: 10-14-2024 ambulatory GinetteCharlotte Gaxiola Facility:[facility] Start: 10-14-2024 End: 10-14-2024 Non-patient / Non-visit Dr. Juan C Guthrie MD -[facility] Work Phone: Start: 10-14-2024 Non-patient / Non-visit Dr. Osmani Gaxiola [facility] Work Phone: Start: 10-12-2024 ambulatory Juju Vuong Facility:[facility] Start: 10-12-[address] Juju Vuong DO -Cardiovascular Services Work Phone: Start: 10-10-2024 Non-patient / Non-visit Dr. Osmani Gaxiola [facility] Work Phone: Start: 10-08-2024 Non-patient / Non-visit Dr. Osmani Gaxiola [facility] Work Phone: Start: 10-07-2024 Non-patient / Non-visit Dr. Osmani Gaxiola [facility] Work Phone: Start: 10-03-2024 Non-patient / Non-visit Dr. Osmani Gaxiola [facility] Work Phone: Start: 10-01-2024 End: 10-01-2024 ambulatory Shay Gaxiola Facility[facility] Start: 10-01-2024 End: 10-01-2024 Non-patient / Non-visit Dr. Shay Gaxiola [facility] Work Phone: Start: 09-30-2024 Non-patient / Non-visit Dr. Osmani Gaxiola [facility] Work Phone: Start: 09-28-2024 Non-patient / Non-visit Dr. Osmani Gaxiola [facility] Work Phone: Start: 09-27-2024 ambulatory Shay Gaxiola Facility:[facility] Start: 09-27-2024 End: 10-23-2024 Evaluation and management of inpatient Dr. Shay Gaxiola DO -Rehab Unit Work Phone: Start: 09-27-2024 Non-patient / Non-visit Dr. Juju Vuong DO [facility] Work Phone: Start: 09-26-2024 Non-patient / Non-visit Dr. Juju Vuong DO [facility] Work Phone: Start: 09-26-2024 ambulatory Kip Grant Fa cility:[facility] Start: 09-26-2024 Non-patient / Non-visit Dr. Corie Grant MD -[facility] Start: 09-25-2024 End: 11-25-2024 Follow-up encounter Nimisha Oseguera MD Work Phone: Geriatrics Start: 09-25-2024 Non-patient / Non-visit Dr. Juju Vuong DO [facility] Work Phone: Start: 09-24-2024 End: 09-27-2024 ambulatory Juju Vuong Facility:[facility] Start: 09-24-2024 End: 09-27-2024 Evaluation and management of inpatient Dr. Gerardo Vizcaino DO -Medical Surgical 3 Work Phone: Start: 09-24-[address] Gerardo Ramirez Work Phone: [facility] Work Phone: Start: 09-19-2024 End: 09-19-2024 ambulatory NIMISHA SOEGUERA Facility:[facility] Start: 09-19-2024 End: 09-19-2024 Office outpatient visit 25 minutes Nimisha Oseguera MD Work Phone: [facility] Comment on above: Benign prostatic hyp erplasia with post-void dribbling (Primary Dx); Decreased urine stream; Urinary incontinence, unspecified type; Prostate cancer screening; Urge incontinence; Dribbling; Stress incontinence Start: 09-06-2024 End: 09-07-2024 ambulatory Nimisha Oseguera MD Work Phone: [facility] Comment on above: Medication for Floma x is already at the pharmacy thank you anyway Refill Request Start: 09-02-2024 End: 09-02-2024 ambulatory NIMISHA OSEGUERA Facility:[facility] Start: 09-02-2024 End: 09-02-2024 Office outpatient new 30 minutes Nimisha Oseguera MD Work Phone: [facility] Comment on above: Hallucination (Prima ry Dx); Medicare annual wellness visit, subsequent; RBD (REM behavioral disorder); Screening for depression; Encounter for screening examination for other mental health and behavioral disorders; Bradykinesia; Memory loss Start: 09-02-2024 End: 09-02-2024 Patient encounter procedure Nimisha Oseguera MD Work Phone: [facility] Work Phone: Start: 03-27-2024 End: 03-27-2024 Admission to same day surgery center Jacqueline Espinal MD Work Phone: General Surgery Comment on above: hernia surgery Start: 03-27-2024 End: 03-28-2024 Telephone encounter Nurse Elaine [facility] Work Phone: General Surgery Comment on above: Cancel Procedure Start: 03-27-2024 End: 03-27-2024 [facility] Start: 03-27-2024 End: 03-27-2024 Anesthesia consultation [place] [id number] Work Phone: Pre Anesthesia Comment on above: Acute delirium (Prim milly Dx) Start: 03-27-2024 End: 03-27-2024 ambulatory Jacqueline Espinal MD Work Phone: General Surgery Start: 03-20-2024 End: 03-20-2024 ambulatory Darius Chi Tan [place] [facility] Start: 03-18-2024 End: 08-05-2024 Telephone encounter Jacqueline Espinal MD Work Phone: General Surgery Comment on above: cardiology and Neuro logy clearance Start: 03-15-2024 End: 04-29-2024 Telephone encounter Jacqueline Espinal MD Work Phone: General Surgery Comment on above: Appointment Start: 03-05-2024 End: 03-11-2024 Evaluation and management of inpatient Darius Bruno Maddox Facility:[facility] Start: 02-26-2024 End: 03-05-2024 Evaluation and management of inpatient DANIEL PEREZ Facility:[facility] Start: 02-23-2024 End: 02-28-2024 Telephone encounter Mary Lynn APRN.HAND CELL TUBER Work Phone: Pre Anesthesia Start: 02-22-2024 End: 02-22-2024 Emergency department patient visit CRISELDA RM Facility:[facility] Start: 02-22-2024 End: 02-24-2024 ambulatory DANIEL PEREZ Facility:[facility] Start: 02-22-2024 End: 02-22-2024 Patient encounter procedure Ronda Perera APRN.HAND CELL TUBER Work Phone: [facility] Comment on above: Dizziness (Primary D x); Unsteady gait Start: 01-25-2024 End: 03-12-2024 Telephone encounter Jacqueline Espinal MD Work Phone: General Surgery Start: 01-22-2024 End: 01-22-2024 ambulatory FABRICIO HALL Facility:[facility] Start: 01-22-2024 End: 01-22-2024 Patient encounter procedure Fabricio Hall MD Work Phone: Cardiology Comment on above: Primary hypertension (Primary Dx); Nonrheumatic aortic valve stenosis; Preoperative clearance Start: 01-22-2024 End: 01-22-2024 Preoperative state Fabricio Hall MD Work Phone: [facility] Start: 11-10-2023 End: 11-10-2023 Preprocedural examination done [facility] 1 Work Phone: [facility] Work Phone: Start: 11-10-2023 Telephone encounter Mary Lynn APRN.HAND CELL TUBER Work Phone: Pre Anesthesia Comment on above: Cardiac Clearance Start: 11-10-2023 End: 11-10-2023 Admission to establishment [facility] Work Phone: Pre Anesthesia Start: 11-10-2023 End: 11-10-2023 Anesthesia consultation Pac [facility] 1 Work Phone: Pre Anesthesia Comment on above: Pre-operative examin ation (Primary Dx); Essential hypertension; VHD (valvular heart disease); Gastroesophageal reflux disease, unspecified whether esophagitis present; Benign prostatic hyperplasia, unspecified whether lower urinary tract symptoms present; Former smoker; Esophageal stricture; Uncomplicated asthma, unspecified asthma severity, unspecified whether persistent Start: 10-27-2023 End: 10-27-2023 Patient encounter procedure Jacqueline Espinal MD Work Phone: General Surgery Comment on above: Right inguinal herni a (Primary Dx) Start: 10-10-2023 End: 10-10-2023 Patient encounter procedure Jacqueline Espinal MD Work Phone: General Surgery Comment on above: Apical systolic murm ur (Primary Dx); Right inguinal hernia Procedures Date Procedure Procedure Detail Performing Clinician Start: 12-31-2024 CT angiography of ch est with contrast Dr. Gerardo Ramirez Work Phone: Start: 12-31-2024 Carbon dioxide measu rement, partial pressure Dr. Gerardo Ramirez Work Phone: Start: 12-31-2024 Gases blood o2 satur ation only direct patrick Dr. Gerardo Ramirez Work Phone: Start: 12-31-2024 Measurement of parti al pressure of oxygen in blood Dr. Gerardo Ramirez Work Phone: Start: 12-31-[address] Gerardo Ramirez Work Phone: Start: 12-31-[address] Gerardo Ramirez Work Phone: Start: 12-31-2024 SARS-CoV-2, Influenz a & RSV (PCR) Dr. Gerardo Ramirez Work Phone: Start: 11-02-2024 X-ray of chest posteroanterior view Dr. Gerardo Le DO Work Phone: Start: 11-02-2024 CT cervical spine wi thout contrast Dr. Gerardo Duque DO Work Phone: Start: 11-02-2024 CT of head without contrast Dr. Gerardo Duque DO Work Phone: Start: 10-16-[address] Gerardo Duque DO Work Phone: Start: 10-15-2024 Urnls dip stick/tabl et reagent auto microscopy Dr. Gerardo Duque DO Work Phone: Start: 10-15-2024 X-ray of chest, PA a nd lateral views Dr. Gerardo Duque DO Work Phone: Start: 10-08-2024 Serum inorganic phos phate measurement Dr. Gerardo Duque DO Work Phone: Start: 10-02-[address] Gerardo gaviria DO Work Phone: Start: 09-30-2024 Measurement of occul t blood in stool specimen using immunoassay Dr. Gerardo Duque DO Work Phone: Start: 09-29-2024 Gram stain microscopy Nic Duque DO Work Phone: Start: 09-29-2024 End: 09-29-2024 Microbial culture, routine Dr. Gerardo Duque D O Work Phone: Start: 09-28-2024 X-ray of chest, PA a nd lateral views Dr. Gerardo Duque DO Work Phone: Start: 09-26-[address] Gerardo Duque DO Work Phone: Start: 09-26-2024 Serum inorganic phos phate measurement Dr. Gerardo Duque DO Work Phone: Start: 09-25-2024 MRI of brain without contrast Dr. Gerardo Duque DO Work Phone: Start: 09-25-2024 Vitamin D, 25-hydrox y measurement Dr. Gerardo Duque DO Work Phone: Comment on above: Vitamin D StatusDefi ciency: <20 ng/mL (50nmol/L)Insufficiency: 20-30 ng/mL (50-75 nmol/L)Sufficiency: 30-100 ng/mL (75-250 nmol/L)Toxicity: >100 ng/mL (>250 nmol/L) Start: 09-24-2024 CT of pelvis without contrast Dr. Gerardo Duque DO Work Phone: Start: 09-24-2024 Urnls dip stick/tabl et reagent auto microscopy Dr. Gerardo Duque DO Work Phone: Start: 09-24-2024 Plain x-ray of pelvi s and lower extremity Dr. Gerardo Ramirez Work Phone: Start: 09-24-[address] Gerardo Duque DO Work Phone: Start: 09-02-2024 Adult depression scr eening assessment Nimisha Oseguera MD Work Phone: Plan of Treatment Date Care Activity Detail Author Start: 03-05-2027 Diabetes Screening [facility] Start: 02-27-2027 Diabetes Screening [facility] Start: 02-21-2027 Diabetes Screening [facility] Start: 11-09-2026 Diabetes Screening [facility] Start: 09-02-2025 Anxiety Screening Anxiety Screening [facility] Start: 09-02-2025 Covid-19 Vaccine ( season) Covid-19 Vaccine () [facility] Comment on above: Postponed from 01/06 (Declined at this time) Start: 09-02-2025 Depression Screening Depression Scre ening [facility] Start: 03-07-2025 End: 03-07-2025 Patient encounter procedure 03/07/2025 9:20 AM EDT Office Visit Internal Medicine Jovanna [address] [place] [id number] Nimisha Oseguera MD [address] [place] [id number] follow up 6 months Internal Medicine [facility]anna Comment on above: follow up 6 months Start: 01-06-2025 Influenza vaccination C [facility] Start: 01-01-2025 [facility] Start: 12-31-2024 Admission procedure [facility] Start: 12-31-2024 Hospital admission, emergency, from emergency room, medical nature [facility] Start: 12-31-2024 Plain chest X-ray Chest 1 View (Port able) [facility] Start: 12-31-2024 XR Chest Single view [facility] Start: 12-31-2024 End: 12-31-2024 [facility] Start: 12-31-2024 Bacteria identified in Blood by Culture Blood Culture [facility] Start: 11-04-2024 Influenza vaccination Influenza Vacc ine (#1) [facility] Comment on above: Postponed from 01/06 (Declined at this time) Start: 11-02-2024 [facility] Start: 10-23-2024 Patient discharge [facility] Start: 10-22-2024 End: 10-22-2024 Patient encounter procedure 10/22/2024 11:00 AM EDT Office Visit Urology [address] [place] [address] Shae Tomlinson MD [address] [place] [address] Benign prostatic hyperplasia with post-void dribbling [N40.1, N39.43] Urology Comment on above: Benign prostatic hyp erplasia with post-void dribbling [N40.1, N39.43] Start: 10-15-2024 [facility] Start: 10-15-2024 Introduction of urin milly catheter [facility] Start: 09-29-2024 [facility] Start: 09-28-2024 Inhalation therapy procedure [facility] Start: 09-27-2024 Recommendation to co ntinue with treatment [facility] Start: 09-27-2024 Referral to service [facility] Start: 09-27-2024 Urinary bladder training [facility] Start: 09-27-2024 Admission procedure [facility] Start: 09-27-2024 Measuring intake and output [facility] Start: 09-27-2024 Patient referral to dietitian [facility] Start: 09-27-2024 Referral to occupati onal therapist [facility] Start: 09-27-2024 Vital signs measurements [facility] Start: 09-27-2024 [facility] Start: 09-27-2024 Patient discharge [facility] Start: 09-27-2024 Speech therapy assessment [facility] Start: 09-25-2024 Aspiration precautions [facility] Start: 09-25-2024 Cardiac monitoring [facility] Start: 09-25-2024 Catheterization of vein [facility] Start: 09-25-2024 Consultation [facility] Start: 09-25-2024 Elevation of head of bed [facility] Start: 09-25-2024 Exercises [facility] Start: 09-25-2024 Notification of physician [facility] Start: 09-25-2024 Patient referral to dietitian [facility] Start: 09-25-2024 Referral to service [facility] Start: 09-25-2024 Speech therapy assessment [facility] Start: 09-25-2024 Tobacco use cessatio n education [facility] Start: 09-25-2024 End: 09-25-2024 [facility] Start: 09-25-2024 Vital signs measurements [facility] Start: 09-25-2024 Assessment of risk o f venous thromboembolism [facility] Start: 09-25-2024 Inhalation therapy procedure [facility] Start: 09-25-2024 Insertion of cathete r into peripheral vein [facility] Start: 09-25-2024 Measuring intake and output [facility] Start: 09-25-2024 Oxygen therapy [facility] Start: 09-25-2024 Providing care accor ding to standard [facility] Start: 09-25-2024 Provision of activit y privileges [facility] Start: 09-25-2024 Referral to occupati onal therapist [facility] Start: 09-25-2024 Referral to service [facility] Start: 09-25-2024 [facility] Start: 09-25-2024 Following clinical p athway protocol [facility] Start: 09-25-2024 Consultation [facility] Start: 09-25-2024 Patient referral to dietitian [facility] Start: 09-24-2024 Verification routine [facility] Start: 09-24-2024 Admission procedure [facility] Start: 09-24-2024 Hospital admission, emergency, from emergency room, medical nature [facility] Start: 09-24-2024 CT of pelvis without contrast Pelvis without IV Contrast [facility] Start: 09-24-2024 CT Pelvis WO contrast [facility] Start: 09-24-2024 [facility] Start: 09-24-2024 Emergency dept visit high severity&threat funcj EMERGENCY DEPT VISIT HI MDM [facility] Start: 09-19-2024 End: 12-19-2024 PSA/PROSTATE SPECIFIC ANTIGEN SCREENING [facility] Work Phone: Comment on above: Expected: 09/19/2024 , Expires: 12/19/2024 Start: 07-22-2024 End: 07-22-2024 Patient encounter procedure 07/22/2024 3:20 PM EDT Office Visit Cardiology [address] [place] [id number] Fabricio Hall MD [address] [facility], [address] [place] [address] Follow up after Echo Cardiology Comment on above: Follow up after Echo Start: 07-15-2024 End: 07-15-2024 Patient encounter procedure 07/15/2024 10:30 AM EDT Office Visit Cardiology [address] [place] [address] Primary hypertension [I10]; Nonrheumatic aortic valve stenosis [I35.0]; Aortic valve disorder [I35.9] Cardiology Comment on above: Primary hypertension [I10]; Nonrheumatic aortic valve stenosis [I35.0]; Aortic valve disorder [I35.9] Start: 05-08-2024 Advance Directive Discussion Advance Directive Discussion [facility] Start: 01-01-2025 Medicare Advantage A nnual Wellness Visit Medicare Advantage Annual Wellness Visit [facility] Start: 04-09-2024 End: 04-09-2024 Admission to same day surgery center 04/09/2024 10:30 AM EST - 04/09/2024 12:31 PM EST Surgery [facility] Surgery [address] [place] [address] Jacqueline Espinal MD [address] [facility] [place] [address] HERNIORRHAPHY INGUINAL ELECTIVE ADULT REDUCIBLE [facility] Surgery Comment on above: HERNIORRHAPHY INGUIN AL ELECTIVE ADULT REDUCIBLE Start: 04-09-2024 End: 04-09-2024 Rpr 1st ingun hrna age 6 yrs/> reducible HERNIORRHAPHY INGUINAL ELECTIVE ADULT REDUCIBLE Right inguinal hernia 04/09/2024 10:30 AM EST [facility] [place] Start: 04-09-2024 Subsequent hospital visit by physician 04/09/2024 10:30 AM EST Hospital Encounter [facility] Surgery [address] [place] [address] Jacqueline Espinal MD [address] [place] [address] Right inguinal hernia [K40.90] [facility] Surgery Comment on above: Right inguinal herni a [K40.90] Start: 03-12-2024 End: 03-12-2024 Patient encounter procedure 03/12/2024 11:30 AM EST Office Visit General Surgery [address] [place] [address] Karen Tiwari, EXECUTIVE MEETING MANAGER.HAND CELL TUBER [address] [place] [address] RIH REPAIR post op new era rg 02/26 General Surgery Comment on above: RIH REPAIR post op m pedro rg 02/26 Start: 02-27-2024 End: 02-27-2024 Admission to same day surgery center 02/27/2024 7:30 AM EDT - 02/27/2024 9:16 AM EDT Surgery [facility] Surgery [address] [place] [address] Jacqueline Espinal MD [address] [address] HERNIORRHAPHY INGUINAL ELECTIVE ADULT REDUCIBLE [facility] Surgery Comment on above: HERNIORRHAPHY INGUIN AL ELECTIVE ADULT REDUCIBLE Start: 02-27-2024 End: 02-27-2024 Rpr 1st ingun hrna age 6 yrs/> reducible HERNIORRHAPHY INGUINAL ELECTIVE ADULT REDUCIBLE Right inguinal hernia 02/27/2024 7:30 AM EDT [facility] [place] Start: 02-27-2024 Subsequent hospital visit by physician 02/27/2024 7:30 AM EDT Hospital Encounter [facility] Surgery [address] [place] [address] Jacqueline Espinal MD [address] [address] Right inguinal hernia [K40.90] [facility] Surgery Comment on above: Right inguinal herni a [K40.90] Start: 02-23-2024 End: 02-23-2024 Anesthesia consultation 02/23/2024 9:20 AM EDT PAT Pre Anesthesia [address] [place] [address] 1, [facility] [address] [place] [address] declined VV - HERNIORRHAPHY INGUINAL ELECTIVE ADULT REDUCIBLE [6004] - Groin - Right Pre Anesthesia Comment on above: declined VV - HERNIO RRHAPHY INGUINAL ELECTIVE ADULT REDUCIBLE [6004] - Groin - Right Start: 01-29-2024 End: 01-21-2025 Echocardiography ECHO Cardiology Routine Primary hypertension Nonrheumatic aortic valve stenosis Expected: 01/29/2024, Expires: 01/21/2025 [facility] Work Phone: Comment on above: Expected: 01/29/2024 , Expires: 01/21/2025 Start: 01-07-2024 Covid-19 Vaccine () Covid-19 Vaccine () [facility] Start: 01-07-2024 Covid-19 Vaccine ( season) Covid-19 Vaccine () [facility] Start: 01-07-2024 Influenza vaccination C [facility] Start: 12-11-2023 End: 12-11-2023 Patient encounter procedure 12/11/2023 8:20 AM EDT Office Visit Cardiology [address] [facility] [place] [address] Fabricio Hall MD [address] [facility], [address] [place] [address] CONSULT TO CARDIOLOGY Cardiology Comment on above: CONSULT TO CARDIOLOG Y Start: 11-21-2023 End: 11-21-2023 Patient encounter procedure 11/21/2023 4:00 PM EDT Office Visit General Surgery [address] [place] [address] Jacqueline Espinal MD [address] [id number] post op hernia 78 [facility] General Surgery Comment on above: post op hernia 7/8 m pedro Start: 11-13-2023 Subsequent hospital visit by physician 11/13/2023 Hospital Encounter [facility] Surgery [address] [place] [address] Jacqueline Espinal MD [address] [address] Right inguinal hernia [K40.90] [facility] Surgery Comment on above: Right inguinal herni a [K40.90] Start: 11-10-2023 End: 02-09-2024 CBC W Auto Differential panel - Blood [facility] Comment on above: Expected: 11/10/2023 , Expires: 02/09/2024 Start: 11-10-2023 End: 02-09-2024 Comprehensive metabolic 2000 panel - Serum or Plasma [facility] Comment on above: Expected: 11/10/2023 , Expires: 02/09/2024 Start: 10-27-2023 End: 10-27-2023 Patient encounter procedure 10/27/2023 3:00 PM EDT Office Visit General Surgery [address] [place] [address] Jacqueline Espinal MD [address] [address] Follow up General Surgery Comment on above: Follow up Start: 10-19-2023 End: 10-19-2023 Patient encounter procedure 10/19/2023 1:50 PM EDT Office Visit Cardiology [address] [place] [address] Apical systolic murmur [R01.1] Cardiology Comment on above: Apical systolic murm ur [R01.1] Start: 05-08-2023 Advance Directive Discussion Advance Directive Discussion [facility] Start: 05-08-2023 Behavioral Health Screening Behavioral Health Screening [facility] Start: 01-06-2023 Covid-19 Vaccine () Covid-19 Vaccine () [facility] Start: 07-24-2020 Diabetes Screening Diabetes Screenin g [facility] Start: 11-10-2016 End: 11-10-2016 Appointment Appointment [facility] Work Phone: Start: 2011 RSV Vaccine (1 - 1-d ose 75+ series) RSV Vaccine (1 - 1-dose 75+ series) [facility] Start: 2001 Pneumococcal Vaccine : 65+ (1 of 1 - PCV) Pneumococcal Vaccine: 65+ (1 of 1 - PCV) [facility] Start: 1996 RSV Vaccine (1 - 1-d ose 60+ series) RSV Vaccine (1 - 1-dose 60+ series) [facility] Start: 1986 Pneumococcal Vaccine : 50+ (1 of 1 - PCV) Pneumococcal Vaccine: 50+ (1 of 1 - PCV) [facility] Start: 1986 Shingrix Vaccine (1 of 2) Hamlin grix Vaccine (1 of 2) [facility] Start: 1955 Urine microalbumin profile DTa P,Tdap,Td Vaccine (1 - Tdap) [facility] Start: 1954 Anxiety Screening Anxiety Screening [facility] Start: 1954 Depression Screening Depression Scre ening [facility] Start: 1954 Spirometry Spirometry [facility] Bilirubin measuremen t, urine [facility] Cardiac event recording [facility] End: 11-09-2024 ECG COMPLETE ECG COMPLETE ECG Routine Pre-operative examination 1 Occurrences starting 11/10/2023 until 11/09/2024 [facility] Work Phone: Comment on above: 1 Occurrences starti ng 11/10/2023 until 11/09/2024 End: 10-09-2024 Echocardiography ECHO Cardiology Routine Apical systolic murmur 1 Occurrences starting 10/10/2023 until 10/09/2024 [facility] Work Phone: Comment on above: 1 Occurrences starti ng 10/10/2023 until 10/09/2024 Hemoglobin [Presence ] in Urine [facility] Measurement of keton es in urine using dipstick [facility] Microscopic urinalysis [facility] Patient Education [facility] Work Phone: Patient referral [facility] Work Phone: pH of Urine [facility] Rpr 1st ingun hrna a ge 6 yrs/> reducible HERNIORRHAPHY INGUINAL ELECTIVE ADULT REDUCIBLE Right inguinal hernia [place] Specific gravity of Urine [facility] Troponin T.cardiac [Mass/volume] in Serum or Plasma by High sensitivity method [facility] Urine blood test [facility] Urine culture [facility] Urine dipstick for glucose [facility] Urine dipstick for leukocyte esterase [facility] Urine dipstick for nitrite [facility] Urine dipstick for protein [facility] Urine examination [facility] Urine microscopy: epithelial cells [facility] Urine Microscopy: wh ite cells [facility] Urobilinogen [Presen ce] in Urine [facility] URODYNAMICS URODYNAMICS Proc edures Routine Benign prostatic hyperplasia with post-void dribbling Urge incontinence Dribbling Decreased urine stream Stress incontinence Urinary incontinence, unspecified type Ordered: 09/19/2024 [facility] Comment on above: Ordered: 09/19/2024 Payers Date Payer Category Payer Self-pay 2023 Medicare MMO MEDICARE MMO MED[employer]VANTAGE HMO [id number] 2023-Present [phone] [address] [place] [address] O [id number] 2023 Medicare (Managed Care) MMO [employer] DVANTAGE HMO [id number] 2023 Unknown [id number] 2001 Medicare MEDICARE PART A B [id number] Unknown [id number] Unknown [id number] 2.840.1.572341.3.579 .2.462 Unknown [id number] 2.16840.1.495780.3.579 .2.462 Unknown [id number] 2.16840.1.373520.3.579 .2.462 Unknown [id number] 2.16.840.1.955582.3.579 .2.462 Unknown [id number] 2.16.840.1.896691.3.579 .2.462 Unknown [id number] 2.16840.1.298504.3.579 .2.462 Unknown [id number] 2.16840.1.031326.3.579 .2.462 Unknown [id number] 2.16840.1.613552.3.579 .2.462 Unknown [id number] 2.16840.1.381656.3.579 .2.462 Unknown [id number] 2.16.840.1.507855.3.579 .2.462 Unknown [id number] 2.840.1.487271.3.579 .2.462 Unknown [id number] 2.16840.1.698447.3.579 .2.462 Unknown [id number] 2.840.1.218801.3.579 .2.462 Unknown [id number] 2.840.1.963997.3.579 .2.462 Unknown [id number] 2.840.1.038290.3.579 .2.462 Unknown [id number] 2.840.1.001926.3.579 .2.462 Unknown [id number] 2.840.1.027537.3.579 .2.462 Unknown [id number] 2.840.1.460824.3.579 .2.462 Unknown [id number] 2.840.1.017181.3.579 .2.462 Unknown [id number] 2.840.1.572513.3.579 .2.462 Unknown [id number] 2.840.1.907138.3.579 .2.462 Unknown [id number] 2.840.1.039217.3.579 .2.462 Unknown [id number] 2.840.1.043780.3.579 .2.462 Unknown [id number] 2.840.1.716143.3.579 .2.462 Unknown [id number] 2.840.1.462039.3.579 .2.462 Unknown [id number] 2.840.1.604769.3.579 .2.462 Unknown [id number] 2.16.840.1.624336.3.579 .2.462 Social History Date Type Detail Facility Start: 07-24-2017 End: 12-31-2024 Tobacco smoking status NHIS Ex-smoker [facility] Start: [birth year]-02-1951 End: 06-02-1977 History of tobacco use Current smoker [facility] Start: 06-02-1952 End: 06-02-1977 History of tobacco use Cigarette Smoker [facility] Start: 07-24-2017 End: 10-10-2023 Cigarettes smoked current (pack per day) - Reported 1 [facility] Start: 07-24-2017 End: 01-22-2024 Tobacco use and exposure Smokeless tobacco non-user [facility] Start: 10-10-2023 End: 09-19-2024 Alcohol intake Current non-drinker of alcohol (finding) [facility] Start: 10-10-2023 End: 02-27-2024 Tobacco use panel [facility] National Score (1-10 0), lower number is lower risk 64 [facility] Start: 1935 Sex Assigned At Not on file C [facility] Has the [employer], [employer], or water company threatened to shut off services in your home in past 12Mo No [facility] (I/We) worried wheth er (my/our) food would run out before (I/we) got money to buy more. Never true [facility] Start: 09-24-2024 Tobacco smoking stat us NYIS Never smoked tobacco (finding) [facility] Start: 07-16-2019 Lives Lives [facility] Start: 1935 Sex Assigned At Male W [facility] Start: 10-23-2024 Tobacco Use Tobacco Use [facility] Medical Equipment Procedure Code Equipment Code Equipment Origin al Text Equipment Identifier Dates Mesh 3dmax Large Polypropylene 6x4in Surgical Nonabsorbable Patch Preform - [id number] Start: 07-25-2017 Goals Date Patient Goal Desired Activity /State Functional Status Date Assessment Result Facility 10-23-2024 Functional status Activity Abili ty With Assist of 1 [facility] Work Phone: 10-21-2024 Functional status Chair [facility] Work Phone: 09-27-2024 Functional status Ambulates;Jigar r;Bathroom Privilege [facility] Work Phone: 03-05-2024 Are you deaf, or do you have serious difficulty hearing No 03/05/2024 5:11 PM Alvarez Crawford RN No [facility] 03-05-2024 Are you blind, or do you have serious difficulty seeing, even when wearing glasses No 03/05/2024 5:11 PM Alvarez Crawford, MADONNA No [facility] 03-05-2024 Do you have serious difficulty walking or climbing stairs Yes 03/05/2024 5:11 PM Alvarez Crawford, MADONNA Yes [facility] 03-05-2024 Do you have difficul ty dressing or bathing No 03/05/2024 5:11 PM Alvarez Crawford, MADONNA No [facility] 03-05-2024 Because of a physica l, mental, or emotional condition, do you have difficulty doing errands alone such as visiting a physician's office or shopping No 03/05/2024 5:11 PM Alvarez Crawford, MADONNA No [facility] Mental Status Date Assessment Result Facility 10-23-2024 Cognitive function Voice/Name [facility] Work Phone: 09-27-2024 Cognitive function Voice/Name;To [facility]/Alexander rocha [facility] Work Phone: 03-05-2024 Because of a physica l, mental, or emotional condition, do you have serious difficulty concentrating, remembering, or making decisions No 03/05/2024 5:11 PM Alvarez Crawford RN No [facility] Clinical Notes 10-10-2023 to 12-31-2024 Telephone Encounter - Starla Napier LPN - 12/04/2024 1:58 PM EDTTelephone Encounter - Starla Napier LPN - 12/04/2024 1:58 PM EDT Note Date & Type Note Facility 12-31-2024 Radiology Diagnostic study note [facility] Imaging Services [address] [place], [place] [address] CTA Chest W/WO Contrast MR#: [id number] Acct: [id number] Name: AYESHA JACOBSEN Rep #: [id number] : 1935 M 89 From: Ernesto Bolanos MD PCP: Dr. Nimisha Oseguera MD Status: REG E R Study:CTA Chest W/WO Contrast Date of Exam: 12/31/24 Exam# [id number] Ordering Dr: Gerardo Duque DO PROCEDURE: CTA CHEST W/WO CONTRAST 12/31/2024 REASON FOR EXAM: SOB, HYPOXIA, COUGH TECHNIQUE: CTA CHEST W/WO CONTRAST Multiplanar Sagittal and Coronal images were obtained. CONTRAST: Isovue 370 VOLUME: 100 mL One or more dose reduction techniques were used (e.g., Automated exposure control, adjustment of the mA and/or kV according to patient size, use of iterative reconstruction technique). RADIATION DOSE SUMMARY: CTDlvol: 4+ 6 mGy DLP: 216 mGycm COMPARISON: 10/12/2024 radiograph FINDINGS: Pulmonary Arteries: *No filling defects are seen to the subsegmental level. *Pulmonary arteries normal in caliber. Lungs & Airways: *Bilateral dependent and posterior lower lobe consolidations with air bronchograms, greatest at the lung bases. *Superimposed diffuse peribronchovascular and interstitial ground-glass opacities. *No significant pleural effusion. *Central airways patent. Mediastinum / Heart / Vessels: *Heart normal in size. *Coronary artery calcifications present. *Thoracic aorta is normal caliber but tortuous, with mild-moderate atherosclerosis. *No mediastinal lymphadenopathy. Thyroid: *Left lobe thyroid nodule, hypodense, 1.6 cm. Abdomen (limited coverage): *Cholelithiasis without pericholecystic inflammatory change. *Large simple left renal cyst. *Hiatal hernia present. Osseous Structures: *Diffuse osteosclerosis/osteopenia. *Moderate anterior compression deformity of L1 with ~4 mm osseous retropulsion at superior endplate, new since radiograph 10/15/24 but age indeterminate. *Degenerative changes of the spine. Other: *Peripheral soft tissues unremarkable. CT/CTA Chest W/WO Contrast IMPRESSION: *No pulmonary embolism to the subsegmental level. *Bibasilar consolidations with superimposed ground-glass and peribronchovascularopacities, suspicious for multifocal pneumonia (including aspiration) versus pulmonary edema. *New L1 compression fracture with osseous retropulsion, age indeterminate. *Additional findings: coronary artery calcifications, tortuous thoracic aorta with atherosclerosis, 1.6 cm left thyroid nodule, hiatal hernia, cholelithiasis without cholecystitis, large left renal cyst. Reading Location: [id number] CC: Dr. Nimisha Oseguera MD; Dr. Gerardo Duque, DO ~ Batch Blender: Signed [facility] 12-04-2024 Telephone encounter Note Refill for Metoprolol sent to [facility] 12/03/2024. Starla Napier LPN [facility] 12-04-2024 Miscellaneous Notes Refill for Metoprolol sent to [facility] 12/03/2024. Starla Napier LPN documented in this encounter [facility] 11-12-2024 Telephone encounter Note Марина from [facility] Home [facility] calling received home health orders, requesting copy of last office notes faxed to [phone]. Printed May visit and faxed as requested. Марина said patient is currently at [facility] as self pay, constantly falling. He was in the ER on 11/02/2024. [facility] 11-12-2024 Miscellaneous Notes Марина from [facility] calling received home health orders, requesting copy of last office notes faxed to [phone]. Printed May visit and faxed as requested. Марина said patient is currently at [facility] as self pay, constantly falling. He was in the ER on 11/02/2024. documented in this encounter [facility] 11-12-2024 Telephone encounter Note No fax number listed [facility]. Faxed referral to [facility] [phone] and [facility] [phone]. Gunnar Small MA [facility] 11-12-2024 Miscellaneous Notes No fax number listed [facility]. Faxed referral to [facility] [phone] and [facility] [phone]. Gunnar Small MA Please fax consult to these 3 centers as requested. Regards, Nimisha Oseguera MD Nicole- nurse manager case- [employer]- reports patient is in need of HHC services at home: SN PT OT HHCAide. Nicole already consulted with SW. Asking if pcp can send order to one of these 3 HHC companys in network. 1) [facility] (4.2 miles from pt's home). 2) [facility] (4.9 miles from pt's home). 3) [facility] (19.8 miles from pt, located in [place]). Reports pt was in the hospital on 09/28/24, discharged on 10/23/24 to [facility] [place]. Insurance wouldn't cover this so patient was paying out of pocket and pt kept having falls, so family took him home. Reports pt needs 28/11 care. documented in this encounter [facility] 11-11-2024 Telephone encounter Note Please fax consult to these 3 centers as requested. Regards, Nimisha Oseguera MD [facility] 11-06-2024 Telephone encounter Note Nicole- nurse manager case- [employer]- reports patient is in need of HHC services at home: SN PT OT HHCAide. Nicole already consulted with SW. Asking if pcp can send order to one of these 3 HHC companys in network. 1) [facility] (4.2 miles from pt's home). # [phone] 2) [facility] (4.9 miles from pt's home). # [phone] 3) [facility] (19.8 miles from pt, located in [place] [facility]). Reports pt was in the hospital on 09/28/24, discharged on 10/23/24 to [facility] [place]. Insurance wouldn't cover this so patient was paying out of pocket and pt kept having falls, so family took him home. Reports pt needs 24/7 care. [facility] 11-02-2024 Radiology Diagnostic study note [facility] Imaging Services [address] [place] [address] Ribs Uni Min 3V w/PA Chest MR#: [id number] Acct: [id number] Name: AYESHA JACOBSEN Rep #: [id number] : 1935 M 89 From: Shauna Le MD PCP: Dr. Nimisha Oseguera MD Status: REG E R Study:Ribs Uni Min 3V w/PA Chest Date of Exam : 11/02/24 Exam# [id number] Ordering Dr: Kemal Elkins DO PROCEDURE: RIBS UNI MIN 3V W/PA CHEST 11/02/2024 REASON FOR EXAM: FALL TECHNIQUE: RIBS UNI MIN 3V W/PA CHEST COMPARISON: 10/15/2024 FINDINGS: No acute, displaced right rib fractures however if there is continued concern, consider CT further evaluation. No focal consolidations. Mild pulmonary vascular congestion. No pneumothorax. No pleural effusion. Mild cardiomegaly. Calcified aortic arch. Multiple circular radiodensities within the right upper quadrant likely gallstones versus renal stones. RAD/Ribs Uni Min 3V w/PA Chest IMPRESSION: No acute, displaced right rib fractures however if there is continued concern, consider CT further evaluation. Multiple circular radiodensities within the right upper quadrant likely gallstones versus renal stones. Reading Location: [facility] CC: Dr. Nimisha Oseguera MD; Dr. Kemal Elkins DO ~ Batch Blender: Signed [facility] 11-02-2024 Radiology Diagnostic study note [facility] Imaging Services [address] [place] [id number] Spine Cervical without Contras MR#: [id number] Acct: [id number] Name: AYESHA JACOBSEN Rep #: [id number] : 1935 89 From: Shauna Le MD PCP: Dr. Nimisha Oseguera MD Status: REG E R Study:Spine Cervical without Contras Date of Exam: 11/02/24 Exam# [id number] Ordering Dr: Kemal Elkins DO PROCEDURE: SPINE CERVICAL WITHOUT CONTRAS 11/02/2024 REASON FOR EXAM: INJURY/PAIN TECHNIQUE: SPINE CERVICAL WITHOUT CONTRAS Coronal and Sagittal reconstruction series wereprovided. One or more dose reduction techniques were used (e.g., Automated exposure control, adjustment of the mA and/or kV according to patient size, use of iterative reconstruction technique. RADIATION DOSE SUMMARY: DLP: 471 mGycm COMPARISON: None FINDINGS: No acute compression deformity, fracture, or subluxation. Moderate multilevel degenerative changes with mild to moderate multilevel central canal stenosis and foraminal stenosis due to posterior disc-osteophyte complex, facet hypertrophy, and uncovertebral hypertrophy most prominent at right C4-C5 and right C5-C6. The prevertebral soft tissues are not thickened. Thyroid is unremarkable. Limited sections of the lung apices demonstrate no pneumothorax. Right apical scarring. CT/Spine Cervical without Contras IMPRESSION: No acute cervical fracture or subluxations. Reading Location: [facility] CC: Dr. Nimisha Oseguera MD; Dr. Kemal Elkins DO ~ Batch Blender: Signed [facility] 11-02-2024 Radiology Diagnostic study note [facility] Imaging Services [address], [place] [address] Brain/Head without Contrast MR#: [id number] Acct: [id number] Name: AYESHA JACOBSEN Rep #: [id number] : 1935 M 89 From: Shauna Le MD PCP: Dr. Nimisha Oseguera MD Status: REG E R Study:Brain/Head without Contrast Date of Exa m: 11/02/24 Exam# [id number] Ordering Dr: Kemal Elkins DO PROCEDURE: BRAIN/HEAD WITHOUT CONTRAST 11/02/2024 REASON FOR EXAM: INJURY/PAIN TECHNIQUE: BRAIN/HEAD WITHOUT CONTRAST Coronal and Sagittal reconstruction series were provided. One or more dose reduction techniques were used (e.g., Automated exposure control, adjustment of the mA and/or kV according to patient size, use of iterative reconstruction technique. RADIATION DOSE SUMMARY: DLP: 847 mGycm COMPARISON: MR from 09/25/2024 FINDINGS: There is no acute infarct, intracranial hemorrhage, or mass effect. There is no hydrocephalus or significant midline shift. There is severe chronic microvascular ischemic changes and moderate to severe parenchymal volume loss. No acute, depressed calvarial fractures. No large scalp hematomas. CT/Brain/Head without Contrast IMPRESSION: No acute intracranial process Reading Location: [id number] CC: Dr. Nimisha Oseguera MD; Dr. Kemal Elkins DO ~ Batch Blender: Signed [facility] 10-23-2024 Discharge summary Note Date/Time October 23, 2024 11:36am [facility] Medical Records Department [address] [place] [address] Discharge Summary 10/22/24 1707 MR#: [id number] Acct: [id number] Name: AYESHA JACOBSEN Rep #:[id number] : 1935 89 From: Shay JeongDede Umeshvicky MEDINA PCP: Dr. Nimisha Oseguera MD Status:ADM I N Location: [place] [address] Providers Date of Admission: 09/27/24 Date of [...] 12.3 on 10/16/2024. Plan 1. DC to [facility] tomorrow. 2. Follow up with Dr. Castro [...] % topical ointment (Calmoseptine) 1 applic topical 0600,0 #1 g 10/22/24 metoprolol tartrate 25 mg tablet 25 mg PO BID #1 TAB 10/22/24 nystatin 100,000 unit/gram topical powder 1 applic topical 0600,2200 #1 g 10/22/24 quetiapine 25 mg tablet [...] debility who presented to the ED at [facility] on 09/24/24 c/o pain in the Lhip [...] consult with case management for disposition at [place]. PT/OT were consulted. On 09/25/24 he was [...] to the acute inpatient rehab unit at [facility] on 09/27/2024 with a diagnosis of poststroke [...] [facility] He took ASA + Plavix for [...] A few days prior to DC to [facility] Tramadol was made PRN and since we [...] can ambulate 20' with a FWW at [facility] with no c/o pain. He is very [...] are being thickened. Zane was transferred to [facility] on 10/23/2024 for intermediate care. His was [...] issues to increase temporarily with transfer to [facility] will keep the dose at 50 mg [...] Appearance: cooperative HEENT head/scalp atraumatic HEENT Narrative: RED CL[place]. Has lower denture. MM are dry. No [...] CVA/Stroke: Yes Hx of CVA/Stroke: Yes Modified Ceiba Score MRS Score at time of Evaluation: [...] No aphasia; normal 10. Dysarthria: 1 = Xkxk-ze-cwxklyvb dysarthria; 11. Extinction and Inattention: 0 - [...] place at the time of transfer to [facility]. ) Statin Dosing Therapy Reference: STATIN DOSE [...] gets more confused in the evenings and sundowns. Very restless and not sleeping well at nights at admission to rehab. sleeping much better on Gclcnxzz30 mg at HS. 3. Cough is much improved with easy to chew foods and nectar thick liquids. Would repeat a MBS prior to trying to advance to thin liquids. 4. Needs to follow up with Dr. Castro for CVA and dementia. 5. He has hearing aids at [facility] that he needs to go picker tender.......they need to calibrate the hearing aids so [...] Please send a culturewhen he arrives at [facility]. Discharge Orders/Prescriptions Prescriptions: New quetiapine 25 mg [...] NH/Intermed Care Charges/Coding Visit Charges Inpatient E&M: 01753 Disch Hosp >30min 10/23/24 1136 <Electronically signed by Shay Gaxiola DO> Cosigner Signature (if applicable): CC: Dr. Nimisha Oseguera MD; Dr. Shay Gaxiola DO; Dr. Jamil Castro MD~ Signed [facility] Work Phone: 1(466) 310-586306-18-2025 Discharge summary [facility] Medical Records Department [address] [place] [address] Discharge Summary 10/22/24 1707 MR#: [id number] Acct: [id number] Name: AYESHA JACOBSEN Rep #:[id number] : 1935 89 From: Shay Gaxiola DO PCP: Dr. Nimisha Oseguera MD Status:ADM I N Location: [place] [address] Providers Date of Admission: 09/27/24 Date of [...] 12.3 on 10/16/2024. Plan 1. DC to [facility] tomorrow. 2. Follow up with Dr. Castro [...] % topical ointment (Calmoseptine) 1 applic topical 00,2199 #1 g 10/22/24 metoprolol tartrate 25 mg tablet 25 mg PO BID #1 TAB 10/22/24 nystatin 100,000 unit/gram topical powder 1 applic topical 00,2199 #1 g 10/22/24 quetiapine 25 mg tablet [...] debility who presented to the ED at [facility] on 09/24/24 c/o pain in the Lhip [...] consult with case management for disposition at [place]. PT/OT were consulted. On 09/25/24 he was [...] to the acute inpatient rehab unit at [facility] on 09/27/2024 with a diagnosis of poststroke [...] VS are stable at the time of [facility] rehab. He took ASA + Plavix for [...] A few days prior to DC to [facility] Tramadol was made PRN and since we [...] Zeb ambulate 20' with a FWW at [facility] with no c/o pain. He is very [...] are being thickened. Zane was transferred to [facility] on 10/23/2024 for intermediate care. His was recently in the hospital and is not able to adequately assist Zane at home. He requires 24/ supervision. Follow up was recommended with Dr. [...] issues to increase temporarily with transfer to [facility] will keep the dose at 50 mg [...] Appearance: cooperative HEENT head/scalp atraumatic HEENT Narrative: [place]. Has lower denture. MM are dry. No [...] No aphasia; normal 10. Dysarthria: 1 = Lgdp-dc-esqozqfg dysarthria; 11. Extinction and Inattention: 0 - [...] place at the time of transfer to [facility]. ) Statin Dosing Therapy Reference: STATIN DOSE [...] admission to rehab. sleeping much better on Amxxmolt58 mg at HS. 3. Cough is much improved with easy to chew foods and nectar thick liquids. Would repeat a MBS prior to trying to advance to thin liquids. 4. Needs to follow up with Dr. Castro for CVA and dementia. 5. He has hearing aids at [facility] that he needs to go picker tender.......they need to calibrate the hearing aids so [...] Please send a culturewhen he arrives at [facility]. Discharge Orders/Prescriptions Prescriptions: New quetiapine 25 mg [...] NH/Intermed Care Charges/Coding Visit Charges Inpatient E&M: 21373 Disch Hosp >30min 10/23/24 1136 Cosigner Signature (if applicable): CC: Dr. Nimisha Oseguera MD; Dr. Shay Gaxiola DO; Dr. Jamil Castro MD~ Signed [facility]06-18-2025 Discharge summary Author Shay Khalida [facility] Note Date/Time October 23, 2024 8:34 am [facility] Medical Records Department [address] [place] [address] Transfer to [facility] Care MR#: [id number] Acct: [id number] Name: AYESHA JACOBSEN Rep #:[id number] : 1935 89 From: Shay Gaxiola DO PCP: Dr. Nimisha Oseguera MD Status:ADM I N Certification of patient admission REQUIRED AT TIME OF ADMISSION. I CERTIFY THAT POST-HOSPITAL ECF SERVICES ARE REQUIRED TO BE GIVEN ON AN IN-PATIENT BASIS BECAUSE OF THE ABOVE NAMED PATIENT'S NEED FOR PRISON CARE ON A CONTINUING BASIS FOR THE CONDITION(S) FOR WHICH HE/SHE WAS RECEIVING IN-PATIENT HOSPITAL SERVICES PRIOR TO HIS/HER TRANSFER TO THE COUNT INCLUDES THE [facility]. 10/23/24 0834<Electronically signed by Shay Gaxiola DO> Diet Diet Order/Speech Therapy: INPATIENT Hospital Diet / Speech Therapy Order(s) 09/27/24 18:37 Diet: Cardiac - Heart Healthy Food consistency:: Easy to Chew Liquid Consistency:: [place]wood/Mildly Thick Diet Comments: NTL by tsp. only, [...] Will continue Protonix. Plan 1. DC to [facility] tomorrow. 2. Follow up with Dr. Castro [...] - Heart Healthy diet - consistency per P[employer] AND PENCILS DIPPER. Continue EPHP 120mL 4x per day with [...] admission to rehab. sleeping much better on Vdliuoet22 mg at HS. 3. Cough is much improved with easy to chew foods and nectar thick liquids. Would repeat a MBS prior to trying to advance to thin liquids. 4. Needs to follow up with Dr. Castro for CVA and dementia. 5. He has hearing aids at [facility] that he needs to go picker tender.......they need to calibrate the hearing aids so [...] Oseguera MD; Dr. Jamil Castro MD ~ [facility] Work Phone: 1(720) 959-626906-18-2025 Discharge summary [facility] Medical Records Department [address] [place] [address] Transfer to [facility] MR#: [id number] Acct: [id number] Name: AYESHA JACOBSEN Rep #:[id number] : 1935 89 From: Shay Gaxiola DO PCP: Dr. Nimisha Oseguera MD Status:ADM I N Certification of patient admission REQUIRED AT TIME OF ADMISSION. I CERTIFY THAT POST-HOSPITAL F SERVICES ARE REQUIRED TO BE GIVEN ON AN IN-PATIENT BASIS BECAUSE OF THE ABOVE NAMED PATIENT'S NEED FOR PRISON CARE ON A CONTINUING BASIS FOR THE CONDITION(S) FOR WHICH HE/SHE WAS RECEIVING IN-PATIENT HOSPITAL SERVICES PRIOR TO HIS/HER TRANSFER TO THE COUNT INCLUDES THE [facility]. 10/23/24 0834 Diet Diet Order/Speech Therapy: INPATIENT Hospital Diet / Speech Therapy Order(s) 09/27/24 18:37 Diet: Cardiac - Heart Healthy Food consistency:: Easy to Chew Liquid Consistency:: Derwood/Mildly Thick Diet Comments: NTL by tsp. only, [...] Will continue Protonix. Plan 1. DC to [facility] tomorrow. 2. Follow up with Dr. Castro [...] - Heart Healthy diet - consistency per PENS AND PENCILS DIPPER. Continue EPHP 120mL 4x per day with [...] gets more confused in the evenings and sundowns. Very restless and not sleeping well at nights at admission to rehab. sleeping much better on Ppqbwvfw68 mg at HS. 3. Cough is much improved with easy to chew foods and nectar thick liquids. Would repeat a MBS prior to trying to advance to thin liquids. 4. Needs to follow up with Dr. Castro for CVA and dementia. 5. He has hearing aids at [facility] that he needs to go picker tender.......they need to calibrate the hearing aids so [...] Oseguera MD; Dr. Jamil Castro MD ~ [facility]06-17-2025 [facility]06-16-2025 Progress note Author Shay Gaxiola [facility] Note Date/Time October 21, 2024 4:26 pm [facility] Medical Records Department [address] [place] [address] Progress Note 10/21/24 0904 MR#: [id number] Acct: [id number] Name: AYESHA JACOBSEN Rep #:[id number] : 1935 89 From: Shay JeongDede Calvovicky PCP: Dr. Nimisha Oseguera MD Status:ADM I N Location: [place] [address] Subjective Subjective Zane was seen on team [...] 1. Continue therapy. 2. Family has chosen [facility]. SW is applying for pre-cert fpr transfer. Heis physically getting stronger but, he is still impulsive and has poor safety awareness. Short term memory is poor. is not able to care for him at home. He would need 24/ supervision. Family not able to provide this. I discussed with family about dementia dx. Dexter seems to think the memory problems have a lot to do with hearing loss. He has hearing aids that are in the [facility] office but, he has to go [...] suspected dementia. Charges/Coding Visit Charges Inpatient E&M: 76920 Subs Hosp L2 10/21/24 1621 <Electronically signed by Shay Gaxiola DO> Shay Gaxiola DO Cosigner Signature (if applicable): CC: ~ Signed ADDENDUM by Dr. Shay Gaxiola DO on 10/21/24 at 1626 Addendum Completed 21 days of dual antiplatelet agents and is now on ASA 81 mg daily and a statin. Will need a 30 day event monitor at In from rehab. BP this AM was a little on the low side at 103 systolic. He is asymptomatic. Will check orhtostatics. If he is orthostatic will decrease the Lisinopril dose. 10/21/24 1626 <Electronically signed by Shay perry DO> Date _ Shay Gaxiola DO Cosigner Signature (if applicable): Date cc: ~* Signed [facility] Work Phone: 1(158) 983-862006-16-2025 Progress note [facility] Medical Records Department [address] [place] [address] Progress Note 10/21/24903 MR#: [id number] Acct: [id number] Name: AYESHA JACOBSEN Rep #:[id number] : 1935 89 From: Shay Gaxiola DO PCP: Dr. Nimisha Oseguera MD Status:ADM I N Location: [place] [address] Subjective Subjective Azne was seen on team rounds today. Dexter [...] 1. Continue therapy. 2. Family has chosen [facility]. SW is applying for pre-cert fpr transfer. Heis physically getting stronger but, he is still impulsive and has poor safety awareness. Short term memory is poor. is not able to care for him at home. He would need 24/7 supervision. Family not able to provide this.I discussed with family about dementia dx. Dexter seems to think the memory problems have a lot to dowith hearing loss. He has hearing aids that are in the [facility] office but, he has to go [...] suspected dementia. Charges/Coding Visit Charges Inpatient E&M: 80022 Subs Hosp L2 10/21/24 1621 Shay Gaxiola DO Cosigner Signature (if applicable): CC: ~ Signed ADDENDUM by Dr. Shay Gaxiola DO on 10/21/24 at 1626 Addendum Completed 21 days of dual antiplatelet agents and is now on ASA 81 mg daily and a statin. Will needa 30 day event monitor at [place] from rehab. BP this AM was a little on the low side at 103 systolic. He is asymptomatic. Will check orhtostatics. If he is orthostatic will decrease the Lisinopril dose. 10/21/24 1626 ti DO> Date _ Shay Gaxiolaigner Signature (if applicable): Date cc: ~* Signed [facility]06-13-2025 Progress note Author Shay Gaxiola [facility] Note Date/Time October 18, 2024 7:07 pm [facility] Medical Records Department [address] [place] [address] Progress Note 10/16/24 1057 MR#: [id number] Acct: [id number] Name: AYESHA JACOBSEN Rep #:[id number] : 1935 89 From: Shay Gaxiola DO PCP: Dr. Nimisha Oseguera MD Status:ADM I N Location: [place] [address] Subjective Subjective Afebrile-acetaminophen was placed on hold [...] Clarity Clear, Urine pH 6.5, Ur Specific [place] 1.010, Urine Protein 15 H, Urine Glucose [...] % (Auto) 55.3, Lymph % (Auto) 20.0, [place] % (Auto) 11.6 H, Eos % (Auto) [...] consolidations. Trace left base effusion. Reading Location: [facility] Physical Exam Const alert and no apparent [...] Monday. Need a decision on destination at [place]. 5. 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 Charges/Coding Visit Charges Inpatient E&M: 60936 Subs Hosp L1 10/18/241906 <Electronically signed by Shay Gaxiola DO> Shay Gaxiola DO Cosigner Signature (if applicable): CC: ~ Signed [facility] Work Phone: 1(641) 959-682606-13-2025 Progress note [facility] Medical Records Department [address] [place] [address] Progress Note 10/16/24 1057 MR#: [id number] Acct: [id number] Name: AYESHA JACOBSEN Rep #:[id number] : 1935 89 From: Shay Gaxiola DO PCP: Dr. Nimisha Oseguera MD Status:ADM I N Location: [place] [address] Subjective Subjective Afebrile-acetaminophen was placed on hold [...] Clarity Clear, Urine pH 6.5, Ur Specific [place] 1.010, Urine Protein 15 H, Urine Glucose [...] % (Auto) 55.3, Lymph % (Auto) 20.0, [place] % (Auto) 11.6 H, Eos % (Auto) [...] consolidations. Trace left base effusion. Reading Location: [facility] Physical Exam Const alert and no apparent [...] vs a facility. If home will need 28/11 supervision. Dtr is POA and sheis not in town. she is on vacation and will return on Monday. Need a decision on destination at [place]. 5. 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 Charges/Coding Visit Charges Inpatient E&M: 79262 Subs Hosp L1 10/18/24 1907 Shay Gaxiola DO Cosigner Signature (if applicable): CC: ~ Signed [facility]06-10-2025 Progress note Author Shay [facility] Note Date/Time October 15, 2024 3:50 pm [facility] Medical Records Department [address] [place] [address] Progress Note 10/15/24 1513 MR#: [id number] Acct: [id number] Name: AYESHA JACOBSEN Rep #:[id number] : 1935 89 From: Shay Gaxiola DO PCP: Dr. Nimisha Oseguera MD Status:ADM I N Location: [place] [address] Subjective Subjective Had a temp of 99.7 [...] hold Tylenol. Charges/Coding Visit Charges Inpatient E&M: 83778 Subs Hosp L1 10/15/24 1544 <Electronically signed [...] to the lab danielle no[facility]. 10/15/24 1550 <Electronically signed by Shay perry DO> Date _ Shay Gaxiola DO Cosigner Signature (if applicable): Date cc: ~* Signed [facility] Work Phone: 1(750) 721-718606-10-2025 Radiology Diagnostic study note [facility] Imaging Services [address] [place] [id number] Chest PA and Lateral MR#: [id number] Acct: [id number] Name: AYESHA JACOBSEN Rep #: [id number] : 1935 M 89 From: Shauna Le MD PCP: Dr. Nimisha Oseguera MD Status: ADM I N Study:Chest PA and Lateral Date of Exam: 10/15/24 Exam# [id number] Ordering Dr: Shay Gaxiola DO PROCEDURE: CHEST [...] consolidations. Trace left base effusion. Reading Location: [facility] CC: Dr. Nimisha Oseguera MD; Dr. Shay Gaxiola DO ~ Batch Blender: Signed [facility]06-10-2025 Progress note [facility] Medical Records Department [address] [place] [address] Progress Note 10/15/24 1513 MR#: [id number] Acct: [id number] Name: AYESHA JACOBSEN Rep #:[id number] : 1935 89 From: Shay Gaxiola DO PCP: Dr. Nimisha Oseguera MD Status:ADM I N Location: [place] [address] Subjective Subjective Had a temp of 99.7 [...] hold Tylenol. Charges/Coding Visit Charges Inpatient E&M: 86355 Subs Hosp L1 10/15/24 7836 Shay Gaxiola DO Cosigner Signature (if applicable): [...] 1550 ti DO> Date _ Shay Gaxiola DO Cosigner Signature (if applicable): Date cc: ~* Signed [facility]06-09-2025 Progress note Author Shay Gaxiola [facility] Note Date/Time October 14, 2024 2:54p m [facility] Medical Records Department [address] [place] [address] Progress Note 10/14/[address] MR#: [id number] Acct: [id number] Name: AYESHA JACOBSEN Rep #:[id number] : 1935 89 From: Shay Gaxiola DO PCP: Dr. Nimisha Oseguera MD Status:ADM I N Location: [place] [address] Subjective Subjective Zane was seen on TEAM rounds today. His dtr left a message with the Monday that she was leaving for vacation. His son Keagan participated via speaker phone today. He is unaware of all the issues with his father and the fact that 24/ supervision [...] Clarity Clear, Urine pH 6.5, Ur Specific [place] 1.010, Urine Protein Negative, Urine Glucose (UA) [...] to call APS. Keagan later spoke to on the phone and she is giving him info on assisted living facilities and telling him what to do.......this was all given to Shay last week. Charges/Coding Visit Charges Inpatient E&M: 94672 Subs Hosp L2 10/14/24 0608 <Electronically signed by Shay Gaxiola DO> Shay Gaxiola DO Cosigner Signature (if applicable): CC: ~ Signed [facility] Work Phone: 1([phone]) 201-491506-09-2025 Progress note [facility] Medical Records Department [address] [place] [address] Progress Note 10/14/24 0907 MR#: [id number] Acct: [id number] Name: AYESHA JACOBSEN Rep #:[id number] : 1935 89 From: Shay Gaxiola DO PCP: Dr. Nimisha Oseguera MD Status:ADM I N Location: [place] [address] Subjective Subjective Zane was seen on TEAM rounds today. His dtr left a message with the Monday that she was leaving for vacation. His son Keagan participated via speaker phone today. He is unaware of all the issues withhis father and the fact that 24/7 supervision [...] this was effective. He is known to [place]. Had to have straight cath last night [...] Clarity Clear, Urine pH 6.5, Ur Specific [place] 1.010, Urine Protein Negative, Urine Glucose (UA) [...] last week. Charges/Coding Visit Charges Inpatient E&M: 38292 [facility] Hosp L2 10/14/24 1896 Shay Gaxiola DO Cosigner Signature (if applicable): CC: ~ Signed [facility]06-05-2025 Progress note Author Shay Gaxiola [facility] Note Date/Time October 10, 2024 2:59p m [facility] Medical Records Department [address] [place] [address] Progress Note 10/10/24 1020 MR#: [id number] Acct: [id number] Name: AYESHA JACOBSEN Rep #:[id number] : 1935 89 From: Shay Gaxiola DO PCP: Dr. Nimisha Oseguera MD Status:ADM I N Location: [place] [address] Subjective Subjective Afebrile VSS -blood pressure is [...] than 1,500. Charges/Coding Visit Charges Inpatient E&M: 50696 Subs Hosp L1 10/10/24 9604 <Electronically signed by Shay Gaxiola DO> Shay Gaxiola DO Cosigner Signature (if applicable): CC: ~ Signed [facility] Work Phone: 1(833) 737-579306-05-2025 Progress note [facility] Medical Records Department [address] [place] [address] Progress Note 10/10/24 1020 MR#: [id number] Acct: [id number] Name: AYESHA JACOBSEN Rep #:[id number] : 1935 89 From: Shay Gaxiola DO PCP: Dr. Nimisha Oseguera MD Status:ADM I N Location: [place] [address] Subjective Subjective Afebrile VSS -blood pressure is [...] is going to reach out tohis dtr todiscuss [place]. He has increased pain after therapy/wt bearing but, he needs to keep moving to prevent muscle atrophy and frozen joints. 3. Continue the current drug regimen. 4. No further W/U for increase in eosinophil % since he is asymptomatic and theabsolute eosinophil count is less than 1,500. Charges/Coding Visit Charges Inpatient E&M: 15506 Subs Hosp L1 10/10/24 2616 Shay Gaxiola DO Cosigner Signature (if applicable): CC: ~ Signed [facility]06-03-2025 Progress note Author Shay [facility] Note Date/Time October 08, 2024 12:47 pm [facility] Medical Records Department [address] [place] [address] Progress Note 10/08/24 1054 MR#: [id number] Acct: [id number] Name: AYESHA JACOBSEN Rep #:[id number] : 1935 89 From: Shay Gaxiola DO PCP: Dr. Nimisha Oseguera MD Status:ADM I N Location: [place] [address] Subjective Subjective Afebrile VSS - Maintaining appropriate [...] or Citalopram 10 mg (this is for manager long term care and may not be beneficial in the short term. I suspect he will do better at home in familiar surroundings. The Seroquel may be causing nightmares but the incidence of agitation and restlessness is fairly low with Seroquel. Drowsiness is more common. Charges/Coding Visit Charges Inpatient E&M: 92828 Subs Hosp L1 10/08/24 3526 <Electronically signed by Shay Gaxiola DO> Shay Gaxiola DO Cosigner Signature (if applicable): CC: ~ Signed [facility] Work Phone: 1(304) 695-164906-03-2025 Progress note [facility] Medical Records Department [address] [place] [address] Progress Note 10/08/24 1054 MR#: [id number] Acct: [id number] Name: AYESHA JACOBSEN Rep #:[id number] : 1935 89 From: Shay Gaxiola DO PCP: Dr. Nimisha Oseguera MD Status:ADM I N Location: [place] [address] Subjective Subjective Afebrile VSS - Maintaining appropriate [...] or Citalopram 10 mg (this is for manager long term care and may not be beneficial in the short term. I suspect he will do better at home in familiar surroundings. The Seroquel may be causing nightmares but the incidence of agitation and restlessness is fairly low with Seroquel. Drowsiness is more common. Charges/Coding Visit Charges Inpatient E&M: 85805 Subs Hosp L1 10/08/24 1247 Shay Gaxiola DO Cosigner Signature (if applicable): CC: ~ Signed [facility]06-02-2025 Progress note Author Shay Calvovicky [facility] Note Date/Time October 07, 2024 1:18p m [facility] Medical Records Department [address] [place] [address] Progress Note 10/07/24 1154 MR#: [id number] Acct: [id number] Name: AYESHA JACOBSEN Rep #:[id number] : 1935 89 From: Shay Gaxiola DO PCP: Dr. Nimisha Oseguera MD Status:ADM I N Location: [place] [address] Subjective Subjective Zane was seen on team [...] Zane. 5. Will need continued therapy at [place].....[facility]? 6. Decrease senna to 1 tablet twice daily. Charges/Coding Visit Charges Inpatient E&M: 40713 Subs Hosp L2 10/07/24 8644 <Electronically signed by Shay Gaxiola DO> Shay Gaxiola DO Cosign Signature (if applicable): CC: ~ Signed [facility] Work Phone: 1(754) 758-308406-02-2025 Progress note [facility] Medical Records Department [address] [place] [address] Progress Note 10/07/24 1154 MR#: [id number] Acct: [id number] Name: AYESHA JACOBSEN Rep #:[id number] : 1935 89 From: Shay Gaxiola DO PCP: Dr. Nimisha Oseguera MD Status:ADM I N Location: [place] [address] Subjective Subjective Zane was seen on team [...] Zane. 5. Will need continued therapy at [place].....[facility]? 6. Decrease senna to 1 tablet twice daily. Charges/Coding Visit Charges Inpatient E&M: 92792 Subs Hosp L2 10/07/24 1318 Shay Gaxiola DO Cosigner Signature (if applicable): CC: ~ Signed [facility]05-30-2025 Progress note Author Shay [facility] Note Date/Time October 04, 2024 11:20 am [facility] Medical Records Department [address] [place] [address] Progress Note 10/03/24 1151 MR#: [id number] Acct: [id number] Name: AYESHA JACOBSEN Rep #:[id number] : 1935 89 From: Shay Gaxiola DO PCP: Dr. Nimisha Oseguera MD Status:ADM I N Location: [place] [address] Subjective Subjective Afebrile VSS - Maintaining appropriate [...] to dysphagia. Will refer to neurology at [place].......may benefit from tx. 3. Continue Seroquel at 37.5 mg at HS for dementia with behavior abnormality. 4. DC the doxycycline.........this is the newest drug and the most likely to becausing the eosinophilia. Recek a CBC with diff in a few days. Monitor closelyfor rash/pruritus/wheezing. Charges/Coding Visit Charges Inpatient E&M: 39818 Subs Hosp L1 10/04/24 1119 <Electronically signed by Shay Gaxiola DO> Shay Gaxiola DO Cosigner Signature (if applicable): CC: ~ Signed ADDENDUM by Dr. Shay Gaxiola DO on 10/04/24 at 1120 Addendum Patient has Hemoccult positive stool. Will continue pantoprazole. 10/04/24 1120 <Electronically signed by Shay perry DO> Date _ Shay Gaxiola DO Cosigner Signature (if applicable): Date cc: ~* Signed [facility] Work Phone: 1(197) 378-234905-30-2025 Progress note [facility] Medical Records Department [address] [place] [address] Progress Note 10/03/24 1151 MR#: [id number] Acct: [id number] Name: AYESHA JACOBSEN Rep #:[id number] : 1935 89 From: Shay Gaxiola DO PCP: Dr. Nimisha Oseguera MD Status:ADM I N Location: [place] [address] Subjective Subjective Afebrile VSS - Maintaining appropriate [...] to dysphagia. [place] refer to neurology at [place].......may benefit from tx. 3. Continue Seroquel at 37.5 mg at HS for dementia with behavior abnormality. 4. DC the doxycycline.........this is the newest drug and the most likely to becausing the eosinophilia. Recek a CBC with diff in a few days. Monitor closelyfor rash/pruritus/wheezing. Charges/Coding Visit Charges Inpatient E&M: 29602 Subs Hosp L1 10/04/24 1119 Shay Gaxiola DO Cosigner Signature (if applicable): CC: ~ Signed ADDENDUM by Dr. Shay Gaxiola DO on 10/04/24 at 1120 Addendum Patient has Hemoccult positive stool. Will continue pantoprazole. 10/04/24 1120 ti DO> Date _ Shay Gaxiola Signature (if applicable): Date cc: ~* Signed [facility]05-28-2025 History and physical note Author Shay Gaxiola [facility] Note Date/Time October 02, 2024 11:40 am [facility] Medical Records Department [address] [place] [address] Post Admission Physician Nora 09/28/24 1151 MR#: [id number] Acct: [id number] Name: AYESHA JACOBSEN Rep #:[id number] : 1935 89 From: Shay Gaxiola DO PCP: Dr. Nimisha Oseguera MD Status:ADM I N Location: [place] [address] Admission Information Primary Diagnosis:: Post stroke debility/pelvic [...] Skin integrity and Medication Management Patient needs Customer Care Team Coach/ Case Management for: Discharge Planning, Arranging Home [...] Cosigner Signature (if applicable): CC: ~ Signed [facility] Work Phone: 1(701) 176-994705-28-2025 History and physical note [facility] Medical Records Department [facility] [place] [address] [place] [address] Post Admission Physician Nora 09/28/24 1151 MR#: [id number] Acct: [id number] Name: AYESHA JACOBSEN Rep #:[id number] : 1935 89 From: Shay Daily Khalida PCP: Dr. Nimisha Oseguera MD Status:ADM I N Location: [place] [address] Admission Information Primary Diagnosis:: Post stroke debility/pelvic [...] Language Skills and Compensatory Strategies Patient requires / Rehabilitation Nursing for: Pain Issues, Identifying and preventing risk factors, Monitoring and reporting current medical conditions, Assisting with ambulation, transfer, and all ADL's, Teaching patients about disease process and medications, Family teaching, Providing safe environment, Bowel and Bladder Issues, Skin integrity and Medication Management Patient needs Customer Care Team Coach/ Case Management for: Discharge Planning, Arranging Home [...] Cosigner Signature (if applicable): CC: ~ Signed [facility]05-28-[address] [facility] Speech Pathology [address] [place] [address] Modified Barium Swallow Study MR#: [id number] Acct: [id number] Name: AYESHA JACOBSEN Rep #:[id number] : 1935 89 From: Gia Sierra Modified [...] He presented to the Emergency Department at [facility] on 09/24/24 with complaints of left hip [...] to the acute inpatient rehabilitation unit at [facility] with a diagnosis of post-stroke debility. He [...] Result: 8= enters airway/below vocal folds/no effort Derwood Thick Liquid via small single sip: cup: Result: 3= enters airways/above vocal folds/not ejected Derwood Thick Liquid via teaspoon: Result: 1= does not enter airway Derwood Thick Liquid via teaspoon Trial 2: Result: 1= does not enter airway Derwood Thick Liquid via teaspoon Trial 3: Result: 2= enter airway/above vocal folds/ejected Honey Thick Liquid via small single sip: cup: Result: 3= enters airways/above vocal folds/not ejected Derwood Thick Liquid via teaspoon Trial 4: Result: 1= does not enter airway Pudding: Result: 1= does not enter airway Cookie: Result: 1= does not enter airway Derwood Thick Liquid via teaspoon Trial 5: Result: 1= does not enter airway Derwood Thick Liquid via teaspoon Trial 6: Result: 1= does not enter airway Derwood Thick Liquid via teaspoon Trial 7: Result: [...] liquid trials via tsp administered by the [employer] resulted in PAS scores of 1?2. When [...] Status Active ST Patient: Active Contact Information [facility] Speech Therapy:: Gia Sierra M.A., CCC-[employer] Speech-Language Pathologist [facility] [phone]? ?FAX [phone]? [email or web address] [address] [place] [address]? ?[place] [address] 10/02/24 1108 > Date/Time Gia Sierra Co-Signature Required for all Medicare patients Date/Time Co-Signature CC: ~ [facility]05-27-2025 Progress note Author Shay Gaxiola [facility] Note Date/Time October 01, 2024 4:20p [facility] Medical Records Department [address] [place] [address] Progress Note 10/01/24 1210 MR#: [id number] Acct: [id number] Name: AYESHA JACOBSEN Rep #:[id number] : 1935 89 From: Shay Ambrosio Umeshvicky MEDINA PCP: Dr. Nimisha Oseguera MD Status:ADM I N Location: [place] [address] Subjective Subjective Zane was seen on team [...] this age. Charges/Coding Visit Charges Inpatient E&M: 51102 Subs Hosp L2 10/01/24 1620 <Electronically signed by Shay Gaxiola DO> Shay Gaxiola DO Cosigner Signature (if applicable): CC: ~ Signed [facility] Work Phone: 1(760) 380-172105-27-2025 Progress note [facility] Medical Records Department [address] [place] [address] Progress Note 10/01/24 1210 MR#: [id number] Acct: [id number] Name: AYESHA JACOBSEN Desiree Rep #:[id number] : 1935 89 From: Shay Gaxiola DO PCP: Dr. Nimisha Oseguera MD Status:ADM I N Location: [place] [address] Subjective Subjective Zane was seen on team [...] 23:59 23:59 Intake Total 1300 / 1300 1910 / 1910 240 / 240 Output Total 80 / 80 400 / 400 Balance 1220 / 1220 1909 / 191 -160 / -160 Lab / Micro Data [...] this age. Charges/Coding Visit Charges Inpatient E&M: 04603 Subs Hosp L2 10/01/24 1620 Shay Gaxiola DO Cosigner Signature (if applicable): CC: ~ Signed [facility]05-26-2025 Progress note Author Shay Calvovicky [facility] Note Date/Time September 30, 2024 3:39p m [facility] Medical Records Department [address] [place] [address] Progress Note 09/30/24 1521 MR#: [id number] Acct: [id number] Name: AYESHA JACOBSEN Rep #:[id number] : 1935 89 From: Shay Gaxiola DO PCP: Dr. Nimisha Oseguera MD Status:ADM I N Location: [place] [address] Subjective Subjective Day #3 doxycycline Afebrile VSS -blood pressure over the past 24 hours has ranged from 127/71 to 156/84. Heart rate is within normal limits. Maintaining appropriate oxygen saturation on RA -pulse ox during the day while awake ranges from 90-94. Oral intake - FOOD varies from poor to good FLUIDS improving, [facility] and so far today has [...] that he had a son who of CVA/CA. Feels he is declining. Having trouble with [...] is sleeping Charges/Coding Visit Charges Inpatient E&M: 12597 Subs Hosp L1 09/30/24 8459 <Electronically signed by Shay Gaxiola DO> Shay Gaxiola DO Cosigner Signature (if applicable): CC: ~ Signed [facility] Work Phone: 1(293) 519-997205-26-2025 Progress note [facility] Medical Records Department [address] [place] [address] Progress Note 09/30/24 1521 MR#: [id number] Acct: [id number] Name: AYESHA JACOBSEN Rep #:[id number] : 1935 89 From: Shay Gaxiola DO PCP: Dr. Nimisha Oseguera MD Status:ADM I N Location: [place] [address] Subjective Subjective Day #3 doxycycline Afebrile VSS [...] and Output for Last 24 Hours 09/28/24 09/29/2425 23:59 23:59 23:59 Intake Total 770 / [...] that he had a son who of CVA/CA. Feels he is declining. Having trouble with [...] is sleeping Charges/Coding Visit Charges Inpatient E&M: 91595 Subs Hosp L1 09/30/24 1539 Shay Gaxiola DO Cosigner Signature (if applicable): CC: ~ Signed [facility]05-24-2025 History and physical note Author Shay [facility] Note Date/Time September 28, 2024 11:51 am [facility] Medical Records Department [address] [place] [address] History & Physical Exam 09/28/24 0842 MR#: [id number] Acct: [id number] Name: AYESHA JACOBSEN Rep #:[id number] : 1935 89 From: Shay Gaxiola DO PCP: Dr. Nimisha Oseguera MD Status:ADM I N Location: [address] - General General Date of Admission: 09/27/24 Date of Service: 09/28/24 HPI Narrative AYESHA JACOBSEN, is a 89 YO M with a PMH of hypertension, seizure disorder, vertigo, asthma, BPH with urine retention, history of colectomy, GERD, esophageal stenosis , OA and chronic debility who presented to the ED at [facility] on 09/24/24 c/o pain in the L [...] andconsult with case management for disposition at [place]. PT/OT were consulted. On 09/25/24 he was [...] transferred to the acute inpatient rehabunit at [facility] on 09/27/2024 with a diagnosis of poststroke [...] at 9.4. TSH was 0.49. [facility] Medical History (Updated 09/28/24 @ 11:34 by [...] (Updated 09/28/24 @ 11:[address] Shay Gaxiola DO) household members: spouse and other details: 's [...] CVA/Stroke: Yes Hx of CVA/Stroke: No Modified Darren Score MRS Score at time [...] 0 - Absent 8. Sensory: 1 - Qwzq-gv-dajilosp sensory loss; 9. Best Language: 0 - No aphasia; normal 10. Dysarthria: 1 = Awhf-vf-gddlieag dysarthria; 11. Extinction and Inattention: 0 - No abnormality Total: 6 Stroke Questions Stroke Team Activated: No Physical Exam Const alert, oriented x3 and no apparent distress Constitutional Narrative: sitting in the recliner at the bedside General Appearance: cooperative and well kempt HEENT head/scalp atraumatic HEENT Narrative: RED CLIFF. Mucous membranes are dry. No evidence of [...] that he had a son who of CVA/CA. Feels he is declining. Having trouble with [...] 75.3 H, Lymph % (Auto) 9.0 L, [place] % (Auto) 10.2 H, Eos % (Auto) [...] 8 hours. Charges/Coding Visit Charges Inpatient E&M: 18845 Init Hosp L2 09/28/24 1151 <Electronically signed by Shay Gaxiola DO> Cosigner Signature (if applicable): CC: Dr. Nimisha Oseguera MD; Dr. Shay Gaxiola DO~ Signed [facility] Work Phone: 1(538) 702-811705-24-2025 History and physical note [facility] Medical Records Department [address] [place] [address] History & Physical Exam 09/28/24 0842 MR#: [id number] Acct: [id number] Name: AYESHA JACOBSEN Rep #:[id number] : 1935 89 From: Shay Gaxiola DO PCP: Dr. Nimisha Oseguera MD Status:ADM I N Location: [place] [address] HPI - General General Date of Admission: 09/27/24 Date of Service: 09/28/24 HPI Narrative AYESHA JACOBSEN, is a 89 YO M with a PMH of hypertension, seizure disorder, vertigo, asthma, BPH withurine retention, history of colectomy, GERD, esophageal stenosis , OA and chronic debility who presented to the ED at [facility] on 09/24/24 c/o pain in the L [...] andconsult with case management for disposition at [place]. PT/OT were consulted. On 09/25/24 he was [...] transferred to the acute inpatient rehabunit at [facility] on 09/27/2024 with a diagnosis of poststroke [...] at 9.4. TSH was 0.49. [facility] Medical History (Updated 09/28/24 @ 11:[address] Shay Gaxiola DO) Esophageal stenosis Esophageal foreign body Tobacco [...] (Updated 09/28/24 @ 11:[address] Shay Gaxiola DO) household members: spouse and other details: 's [...] CVA/Stroke: Yes Hx of CVA/Stroke: No Modified Darren Score MRS Score at time [...] 0 - Absent 8. Sensory: 1 - Vkvk-ot-ujcuqzrk sensory loss; 9. Best Language: 0 - No aphasia; normal 10. Dysarthria: 1 = Prgt-tn-zghcxptc dysarthria; 11. Extinction and Inattention: 0 - No abnormality Total: 6 Stroke Questions Stroke Team Activated: No Physical Exam Const alert, oriented x3 and no apparent distress Constitutional Narrative: sitting in the recliner at the bedside General Appearance: cooperative and well kempt HEENT head/scalp atraumatic HEENT Narrative: [place]. Mucous membranes are dry. No evidence of [...] that he had a son who of CVA/CA. Feels he is declining. Having trouble with [...] 75.3 H, Lymph % (Auto) 9.0 L, [place] % (Auto) 10.2 H, Eos % (Auto) 4.8, Baso % (Auto) 0.4, Absolute Neuts(auto) 9.8 H, Absolute Lymphs (auto) 1.17, Nucleated RBC % 0, Differential Comment SCANNED, Sodium 138, Potassium 3.8, Chloride 105, Carbon Dioxide 23.4, Anion Gap 9, BUN 17, Creatinine 0.91, Estim Creat Clear Calc 43.83 L, Est GFR (MDRD) Non-Af 81, BUN/Creatinine Ratio 18.5, Oetzawe349 H, Calcium 8.9, Phosphorus 2.1 L, Magnesium 1.6, Total Bilirubin 0.68, AST 20, ALT 16, AlkalinePhosphatase 75, Total Protein 6.1, Albumin 3.2 L, Globulin 3.0, Albumin/GlobulinRatio 1.1 Assessment & Plan Assessment/Plan (1) Debility: (2) Acute ischemic right MCA stroke: (3) Left leg weakness: (4) Facial droop: (5) Cognitive dysfunction: PLAN: Scored 30 on the MOCA (6) Paresthesias: PLAN: Left [...] 8 hours. Charges/Coding Visit Charges Inpatient E&M: 22732 Init Hosp L2 09/28/24 1151 Cosigner Signature (if applicable): CC: Dr. Nimisha Oseguera MD; Dr. Shay Gaxiola DO~ Signed [facility]05-24-2025 Radiology Diagnostic study note [facility] Imaging Services [address] [place] [address] Chest PA and Lateral MR#: [id number] Acct: [id number] Name: AYESHA JACOBSEN Rep #: [id number] : 1935 M 89 From: Shauna Le MD PCP: Dr. Nimisha Oseguera MD Status: ADM I N Study:Chest PA and Lateral Date of Exam: 09/28/24 Exam# [id number] Ordering Dr: Shay Gaxiola DO PROCEDURE: CHEST PA AND LATERAL 09/28/2024 REASON FOR EXAM: COUGH TECHNIQUE: Frontal and lateral views of the chest. FINDINGS: No focal consolidations. Mild pulmonary vascular congestion. Bibasilar subsegmental atelectasis. Nopleural effusion or pneumothorax. Atherosclerotic aortic arch. Cardiac silhouette is within normal limits. Obwl-et-fniahkrf hiatal hernia. No acute fractures. RAD/Chest PA and Lateral IMPRESSION: Mild pulmonary vascular congestion. No focal consolidation. Bibasilar subsegmental atelectasis. Lodc-og-tbxvqfbr hiatal hernia. Reading Location: [id number] CC: Dr. Nimisha Oseguera MD; Dr. 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 September 27, 2024 5:26pm Mild aortic [...] dilatation brii ctive September 27, 2024 5:26pm [facility] Work Phone: 1(378) 602-466005-21-2025 Evaluation note* Diagnosis Onset Date Resolution Status Admit Date Debility acute September 24, 2024 11:44pm Inferior pubic ramus fracture acute September 24, 2024 11:44pm Vitamin D deficiency acute September 24, 2024 11:44pm Contusion of left hip resolved September 24, 2024 11:44pm Elevated serum creatinine resolved September 24, 2024 11:44pm Leukocytosis resolved September 24 11:44pm Acute ischemic right MCA stroke inac tive September 24, 2024 11:44pm Fall inactive September 24, 2024 11:44pm Inability to ambulate due to hip del eted September 24, 2024 11:44pm Debility acute September 27, 2024 5:26pm Facial droop acute September 27 5:26pm Heme + stool acute September 27 5:26pm Inferior pubic ramus fracture acute September 27, 2024 5:26pm Left leg weakness acute September 5:26pm Pain aggravated by physical activity acute September 27, 2024 5 :26pm Paresthesias acute September 27 5:26pm Cognitive dysfunction chronic September 27, 2024 5:26pm Dementia with behavioral disturbance chronic September 27, 2024 5 :26pm Eosinophilia, unspecified chronic September 27, 2024 5:26pm 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 September 27, 2024 5:26pm Oropharyngeal dysphagia chronic M ay 2024 5:26pm Urinary retention chronic September 5:26pm Depression suspected September 27, 2024 5:26pm Acute bronchitis resolved September 5:26pm Aspiration into trachea resolved M ay 2024 5:26pm Conjunctivitis resolved September 27, 2024 5:26pm Contusion of left hip resolved September 27, 2024 5:26pm Fever resolved September 27, 2024 5:26pm Hypophosphatemia resolved September 5:26pm Leukocytosis resolved September 27 5:26pm Microscopic hematuria resolved September 27, 2024 5:26pm Productive cough resolved September 5:26pm Acute ischemic right MCA stroke inac tive September 27, 2024 5:26pm BPH (benign prostatic hyperplasia) inactive September 27, 2024 5 :26pm Dyslipidemia inactive September 27 5:26pm Esophageal stenosis inactive September 062024 5:26pm Essential (primary) hypertension brii ctive September 27, 2024 5:26pm Fall inactive September 27, 2024 5:26pm GERD (gastroesophageal reflu x disease) inactive September 27, 2024 5 :26pm History of esophageal dilatation brii ctive September 27, 2024 5:26pm Mild aortic stenosis inactive September 27, 2024 5:26pm Presbycusis inactive September 27 5:26pm Seizure disorder inactive September 5:26pm [facility] Work Phone: 1(145) 898-721405-21-2025 Evaluation note* Diagnosis Onset Date Resolution Status Admit Date Debility acute September 24, 2024 11:44pm Inferior pubic ramus fracture acute September 24, 2024 11:44pm Vitamin D deficiency acute September 24, 2024 11:44pm Contusion of left hip resolved September 24, 2024 11:44pm Elevated serum creatinine resolved September 24, 2024 11:44pm Leukocytosis resolved September 24 11:44pm Acute ischemic right MCA stroke inac tive September 24, 2024 11:44pm Fall inactive September 24, 2024 11:44pm Inability to ambulate due to hip del eted September 24, 2024 11:44pm Debility acute September 27, 2024 5:26pm Facial droop acute September 27 5:26pm Heme + stool acute September 27 5:26pm Inferior pubic ramus fracture acute September 27, 2024 5:26pm Left leg weakness acute September 5:26pm Pain aggravated by physical activity acute September 27, 2024 5 :26pm Paresthesias acute September 27 5:26pm Cognitive dysfunction chronic September 27, 2024 5:26pm Dementia with behavioral disturbance chronic September 27, 2024 5 :26pm Eosinophilia, unspecified chronic September 27, 2024 5:26pm 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 September 27, 2024 5:26pm Oropharyngeal dysphagia chronic M ay 2024 5:26pm Urinary retention chronic September 5:26pm Depression suspected September 27, 2024 5:26pm Acute bronchitis resolved September 5:26pm Aspiration into trachea resolved M ay 2024 5:26pm Conjunctivitis resolved September 27, 2024 5:26pm Contusion of left hip resolved September 27, 2024 5:26pm Fever resolved September 27, 2024 5:26pm Hypophosphatemia resolved September 5:26pm Leukocytosis resolved September 27 5:26pm Microscopic hematuria resolved September 27, 2024 5:26pm Productive cough resolved September 5:26pm Acute ischemic right MCA stroke inac tive September 27, 2024 5:26pm BPH (benign prostatic hyperplasia) inactive September 27, 2024 5 :26pm Dyslipidemia inactive September 27 5:26pm Esophageal stenosis inactive September 062024 5:26pm Essential (primary) hypertension brii ctive September 27, 2024 5:26pm Fall inactive September 27, 2024 5:26pm GERD (gastroesophageal reflu x disease) inactive September 27, 2024 5 :26pm History of esophageal dilatation brii ctive September 27, 2024 5:26pm Mild aortic stenosis inactive September 27, 2024 5:26pm Presbycusis inactive September 27 5:26pm Seizure disorder inactive September 5:26pm Acute hypoxic respiratory failure acute December 31 6:18pm [facility] Work Phone: 1(987) 647-944105-20-2025 Radiology Diagnostic study note [facility] Imaging Services [address] [place], [place] [address] HIP, UNI W/ Pelvis 2-3 Views MR#: [id number] Acct: [id number] Name: AYESHA JACOBSEN Rep #: [id number] : 1935 M 89 From: Ernesto Bolanos MD PCP: Dr. Nimisha Oseguera MD Status: REG E R Study:HIP, UNI W/ Pelvis 2-3 Views Date of Ex am: 09/24/24 Exam# [id number] Ordering Dr: Gerardo Duque DO PROCEDURE: HIP, [...] consider cam type femoroacetabular impingement. Reading Location: [id number] CC: Dr. Nimisha Oseguera MD; Dr. Gerardo Duque DO ~ Batch Blender: Signed [facility]05-20-2025 Evaluation note* Diagnosis Onset Date Resolution Status Admit Date Contusion of left hip acute September 24, 2024 11:44pm Debility acute September 24, 2024 11:44pm Fall acute September 24, 2024 11:44pm Inability to ambulate due to hip acu te September 24, 2024 11:44pm [facility] Work Phone: 1(933) 201-395505-15-2025 Instructions* Patient Instructions* Nimisha Oseguera MD - [...] urology appointment. [facility]25 NoteHNO ID: [id number] Author: NIMISHA OSEGUERA MD Service: ? Author [...] excuse any unintended typographical errors. Recording using [employer] software for draft documentation of the visit was discussed with the patient/authorized business representative; all questions welcomed and answered. Patient/authorized business representative agreed to proceed Nimisha Oseguera [facility]05-15-2025 History of Present illness Narrative* Nimisha [...] excuse any unintended typographical errors. Recording using [employer] software for draft documentation of the visit was discussed with the patient/authorized business representative; all questions welcomed and answered. Patient/authorized business representative agreed to proceed Nimisha Oseguera MD documented in this encounterC[facility]05-03-2025 Telephone encounter Note * Telephone Encounter - Aida Pruitt LPN - 09/07/2024 10:31 AM EDT Spoke with Bobby Henderson and it was picked up on 09/06/24 [facility]05-03-2025 Miscellaneous Notes* Telephone Encounter - Aida Pruitt [...] Take 1 capsule by mouth every afternoon. Micehlle Clark September 06, 2024 2:42 PM documented in this encounterC[facility]05-02-2025 Telephone encounter Note * Telephone Encounter - Michelle Melo - 09/06/2024 2:43 PM EDT Daughter states that they are waiting on script. It shows it was sent 09-02-24, but they do not have it. [facility] Work Phone: [phone]) 666-6487049934-18-4928 Telephone encounter Note* Telephone Encounter - Michelle [...] September 06, 2024 2:42 PM [facility]04-28-2025 Instructions* Patient Instructions* Nimisha Oseguera MD - [...] next visit. documented in this encounterC[facility]04-28-2025 NoteHNO ID: [id number] Author: NIMISHA OSEGUERA MD Service: ? Author [...] multiple falls, including a recent fall on [facility] where he injured his knee. He attributes [...] BMI 23.63 kg/m? GEN (more content not included)...[facility]04-28-2025 History of Present illness Narrative* Nimisha Oseguera [...] plan provided Reason for Visit Follow up HPI Ayesha is a 89-year-old male, with a history [...] experiencedmultiple falls, including [place] where he [place] his [place]. He attributes [...] excuse any unintended typographical errors. Recording using [employer] software for draft documentation of the visit was discussed with the patient/authorized business representative; all questions welcomed and answered. Patient/authorized business representative agreed to proceed Nimisha Oseguera MD documented in this encounterC[facility]11-22-2024 Telephone encounter Note * Telephone Encounter - Hero Waite - 03/29/2024 10:41 AM EST received message patient needs to be seen by cardiology and neurology prior to surgery ., left message for patient and gave direct number to call back Hero Waite [facility]11-22-2024 Miscellaneous Notes* Telephone Encounter - Hero Waite [...] for procedure. documented in this encounterC[facility]11-20-2024 Telephone encounter Note * Telephone Encounter - Raffy Modi RN - 03/27/2024 1:51 PM EST Message already sent to surgery scheduling pool. Raffy Modi RN [facility]11-20-2024 Miscellaneous Notes* Telephone Encounter - Raffy Modi RN - 03/27/2024 1:51 PM EST Message already sent to surgery scheduling pool. Raffy Modi RN documented in this encounterC[facility]11-20-2024 Miscellaneous Notes* Telephone Encounter - Raffy Modi RN - 03/27/2024 11:55 AM EST Mary Lynn CNP from [facility] came to office. Ayesha needs to be evaluated by cardiology and neurology prior to Mary being able to consider clearing him for surgery. The patient was scheduled to beseen today, but Mary cancelled the visit and advised Ayesha that the surgery would need to be cancelled and rescheduled after his other visits had been completed. Raffy Modi RN documented in this encounterC[facility]11-20-2024 Telephone encounter Note * Telephone Encounter - Rafyf Modi RN - 03/27/2024 11:55 AM EST Mary Lynn CNP from [facility] came to office. Ayesha needs to be evaluated by cardiology and neurology prior to Mary being able to consider clearing him for surgery. The patient was scheduled to beseen today, but Mary cancelled the visit and advised Ayesha that the surgery would need to be cancelled and rescheduled after his other visits had been completed. Raffy Modi RN [facility]11-20-2024 History and physical note* Mary Lynn APRN.CNP [...] or EEG seizures were recorded. [facility]11-20[facility]2024 History and physical note* Mary Lynn APRN.CNP [...] were recorded. documented in this encounterC[facility]11-20-2024 Instructions* Patient Instructions* Mary Lynn APRN.CNP - 03/27/2024 11:14 AM EST Images from the original note were not included. [facility] PATIENT PREOPERATIVE INSTRUCTIONS Jacqueline Espinal MD has scheduled you for your procedure at this surgery center: [facility]: [phone] -- [address] [facility] [address]. Please read below carefully for your personalized [...] office. If you are currently using a amtx-cmy-byyv injectable or oral medication for diabetes or [...] Procedures: - YOU MUST HAVE A RESPONSIBLE TELEPHONE CLAIMS REPRESENTATIVE TAKE YOU HOME. A SEED SERVICE ADVISOR OR NURSING TECHN CANNOT BE MADE A RESPONSIBLE TELEPHONE CLAIMS REPRESENTATIVE. - We recommend that a responsible person [...] Advance Directive, please fax a copy to [phone] or email to for it to be [...] Lynn APRN.FRANCES documented in this encounterC[facility]11-11-2024 Telephone encounter Note * Telephone Encounter - Stas Hero - 03/18/2024 10:20 AM EST Patient rescheduled for Hernia surgery on 04-09-2024 (copied forward the old cancelled case). patient will go though [facility] to make sure he is medically cleared for procedure. [facility]11-08-2024 Telephone encounter Note* Telephone Encounter - Marlawilmer Eduardo Adrianne - 03/15/2024 1:[address] Perez call requesting patient be placed back on Dr Espinal's surgery schedule as 02/2024 procedure had to be cancelled due to patient being admitted to the Hospital. Please advise patient of appointment details. [facility]11-08-2024 Miscellaneous Notes* Telephone Encounter - Adrianne Burgess - 03/15/2024 1:[address] Perez call requesting patient be placed back on Dr Espinal's surgery schedule as 02/2024 procedure had to be cancelled due to patient being admitted to the Hospital. Please advise patient of appointment details. documented in this encounterC[facility]11-04-2024 [facility]10-29-2024 [facility]10-29-2024 NoteHNO ID: [id number] Author: ALVAREZ GANT RN Service: Nursing Author Type: Registered Nurse Type: Nursing Progress Note Filed: 03/05/2024 15:16 Note Text: [facility] ClinicUweucbmm86-59-4084 Note HNO ID: [id number] Author: DANIEL PEREZ MD Service: Family Practice [...] 08 -- -- -- 67 -- -- 03/03/24 0400 -- -- -- 74 -- -- 03/03/24 [...] MD DATE: March 03, 2024 TIME: 9:47 [facility] SystemIxwsjibx89-11-9811 NoteHNO ID: [id number] Author: DANIEL PEREZ MD Service: Family Practice [...] Daniel Perez MD DATE: 2024 TIME: 7:06 [facility] SystemWswfnlno44-39-7586 NoteHNO ID: [id number] Author: ALEXANDER REYES MD Service: Urology Author [...] Follow up outpatient with Urology. Alexander Reyes [facility]Paox[facility]ua79-68-7034 NoteHNO ID: [id number] Author: IVETT SELF PA-C Service: Neurology General Author Type: Physician Dispensing Optician Type: Plan of Care Filed: 02/29/2024 12:59 Note Text: TELENEUROLOGY CONSULT PROGRESS NOTE The Teleneurologist or ARISTEO is available from 8 am to 5 pm on weekdays. On weekends, at [place] and [place], the Teleneurologist or ARISTEO is available from 8 am to 5 pm, [facility] 8 am to 12 pm, [facility] 1 pm to 5 pm, [facility] 8 am to 12 pm, [place] 1 pm to 5 pm. Statutory holidays do not have teleneuro coverage. [facility]: During Off hours for Teleneurology please page (not call) [place] [facility] [phone] account resolution analyst for concerns. [facility]: During Off hours for Teleneurology please page (not call) [place] [facility] [phone] account resolution analyst for concerns. [facility]: There is no off-hours coverage [...] February 29, 2024 TIME: 12:58 PM PAGER/CONTACT #:[facility] [id number] NoteHNO ID: [id number] Author: DANIEL PEREZ MD Service: Family Practice [...] MD DATE: February 29, 2024 TIME: 8:32 AMMarietta Osteopathic ClinicQvxtjasc59-72-4842 NoteHNO ID: [id number] Author: DANIEL PEREZ MD Service: [facility] Author Type: Physician Type: Progress Notes Filed: 02/28/2024 08:17 Note Text: INPATIENT PROGRESS NOTES Patient Name: Ayesha Jacobsen DATE of SERVICE: 02/28/2024 TIME of SERVICE: 8:12 AM PRIMARY SERVICE: [facility] INTERVAL HPI: improved cr UC is negative [...] Oral 95 20 95 % -- -- 02/27/241999 -- -- -- 101 21 -- -- [...] -- 95 18 96 % -- -- 02/26/240 -- -- -- -- -- -- 167.6 [...] MD DATE: February 28, 2024 TIME: 8:12 [facility] SystemFmulbkoi50-37-4150 NoteHNO ID: [id number] Author: VINCE GARCIA APRN.HAND CELL TUBER Service: ? Author Type: Nurse Practitioner Type: Progress Notes Filed: 02/26/2024 21:27 Note Text: Admission Examination SERVICE DATE: 02/26/2024 SERVICE TIME: 1999 PCP: Daniel Perez MD PRIMARY ATTENDING: Dr. Perez, Daniel Bell MD Subjective CHIEF COMPLAINT: Confused (Sent by [...] ESOPHAGOSCOPY FLEXIBLE REMOVAL FOREIGN BODY 05/27/08 ER [facility] PAST SURGICAL HISTORY OF Mid COLON RESECTION [...] Comments: alert to self (more content not included)...[facility] ClinicXsldixjo04-36-3802 NoteHNO ID: [id number] Author: FATIMAH ALLISON RN Service: Care Management Author Type: Registered Nurse Type: Care Mgt Initial Assessment Filed: 02/23/2024 10:16 Note Text: CARE MANAGEMENT: ASSESSMENT AND DISCHARGE PLAN SERVICE DATE: February 23, 2024 SERVICE TIME: 10:10 AM PCP: Daniel Perez MD - Confirmed. Primary Contact: Extended Emergency Contact Information Primary Emergency Contact: Marilyn Jacobsen Address: [address] [place] [address] [address] [place] [address] Relation: Spouse Admission Status: Observation Insurance Provider: [facility] [employer] [facility] Discharge Planning requested by: Per Department Practice Potential Transition Plans Home Advance Directives Current Advance Directive: Health Care Power of Print Shop Manager In Chart: No Sap Pi Developer Attempted to Assist with AD Completion: Yes [...] Be able to go home, General wellness Index of Choice Explained: Index of Choice Given: No Reason Not Given: Unable to complete with this assessment - revisit Are you interested in bedside delivery of your medications? No Preferred outpatient pharmacy is [facility] Discharge Planning Participant(s): Patient Patient/Family Comments: Caregiver [...] 23, 2024 TIME: 10:10 AM CONTACT #: [phone] Telephone encounter Note* Telephone Encounter - Ronda Garcia LPN - 02/23/2024 9:33 AM EDT Patient was scheduled for in person [facility] appt at 920am today. Patient did not check in for appt. Looks like patient is admitted in [facility]. Ronda Garcia LPN [facility]10-18-2024 Miscellaneous Notes* Telephone Encounter - Ronda Garcia LPN - 02/23/2024 9:33 AM EDT Patient was scheduled for in person [facility] appt at 920am today. Patient did not check in for appt. Looks like patient is admitted in [facility]. Ronda Garcia LPN documented in this encounterC[facility]10-17-2024 NoteHNO ID: [id number] Author: SUSANA BELLO APRN.FRANCES Service: General Internal Medicine Author Type: Nurse [...] and stenosis of esophagus who presented to [place] [facility] with weakness and dizziness that started 1 week ago and yesterday became worse. He just started using a cane. He states a spinning sensation with mild nausea, but none currently. Denies fevers, confusion, cp, sob, abdominal pain,decreased sensation, no stroke-like symptoms. Esteves was placed at [place] [facility] for retention; had immediately 1000ml out. He was started on rocephin for UTI, given antivert, pyridium, and 1L NS bolus. Labs at [facility] CMP is overall insignificant, CBC [...] recent labs and imaging (more content not included)...[facility] 02-22-2024 NoteHNO ID: [id number] Author: RONDA PERERA APRN.CNP Service: ? Author [...] care, Referred to ED Report called to [facility] Patient declines going to [place], and daughter will drive.[facility]10-17-2024 History of Present illness Narrative* Ronda Perera APRN.CNP - 02/22/2024 8:58 AM EDT Called to triage patient by PSS staff 88 year old male with PMH presents for dizziness Acute onset yesterday My legs feel weak +dizziness Walking with cane, which is new per daughter. Denies prior history of same Given age and limitations of express care, Referred to ED Report called to [facility] Patient declines going to [facility], and daughter will drive. [facility] Telephone encounter Note * Telephone Encounter - Priscilla Colindres - 02/05/2024 2:51 PM EDT Per office note from Dr. Hall 01/22/2024 3. Preoperative clearance - ICD9: V72.84, ICD10: Z01.818 Patient cleared for his hernia surgery with mild to moderate risk [facility]09-30-[facility] Miscellaneous Notes* Telephone Encounter - Priscilla Colindres [...] hernia repair surgery with Dr. Espinal in [facility] Priscilla Colindres Dock Builder documented in this encounterC[facility] Telephone encounter Note * Telephone Encounter - Priscilla Colindres - 01/25/2024 9:51 AM EDT Cardiac clearance sent to Dr. Hall for clearance for patient to be able to schedule hernia repair surgery with Dr. Espinal in [facility] Priscilla Colindres Dock Builder [facility]09-16-2024 NoteHNO ID: [id number] Author: FABRICIO HALL MD Service: ? Author Type: Physician Type: Progress Notes Filed: 01/22/2024 16:39 Note Text: Fabricio Hall MD Interventional Cardiology [address] [place] [address] [phone] Chief Complaint Patient presents with: Consult HISTORY [...] ESOPHAGOSCOPY FLEXIBLE REMOVAL FOREIGN BODY 05/27/08 ER [facility] PAST SURGICAL HISTORY OF Mid COLON RESECTION [...] vitamin B-12, (VITAMIN B-12 ORAL) B-12 CAPS gxsg-RB-smw-mqu-SAU-DPZD-be-mv 1.5 mg iron- 8.73 mg CpID Take [...] Ear: External ear norm (more content not included)...[facility]09-16-2024 History of Present illness Narrative* Fabricio Hall MD - 01/22/2024 4:35 PM EDT Images from the original note were not included. Fabricio Hall MD Interventional Cardiology [address], [place] [address] [phone] Chief Complaint Patient presents with: Consult HISTORY [...] ESOPHAGOSCOPY FLEXIBLE REMOVAL FOREIGN BODY 05/27/08 ER [facility] PAST SURGICAL HISTORY OF Mid COLON RESECTION [...] vitamin B-12, (VITAMIN B-12 ORAL) B-12 CAPS rgxf-AQ-uxw-lfl-WEC-SFJZ-be-mv 1.5 mg iron- 8.73 mg CpID Take [...] any errors. documented in this encounterC[facility]08-08-2024 Miscellaneous Notes* Telephone Encounter - Emerald Starks - 12/14/2023 10:00 AM EDT Second Attempt- Called pt and left vm to call back to get schedule * Telephone Encounter - Billie Dent - 12/13/2023 9:18 AM EDT First attempt at contacting patient, no answer, unable to leave , will try again later * Telephone Encounter - Livia Oshea, RN - 12/13/2023 8:32 AM EDT Attempted to call patient and left . Next new consult opening is 06/24/24. If patient calls back ask if he is willing to travel to other locations for cardiology appointment and if so what other locations is he willing to go to? Will reach out to [facility] to see if they will be able to get him in sooner. * Telephone Encounter - Priscilla Colindres - 12/12/2023 2:57 PM EDT Patient did not complete 12/10 cardiology visit as it was cancelled due to provider being out. Please reach out to patient and schedule as soon as possible as he is wishing to have his hernia surgery completed. Priscilla Colindres Dock Builder * Telephone Encounter - Priscilla Colindres - 11/10/2023 12:30 PM EDT Patient accepted sooner date for cardiology of 12/11/2023 Surgery date to be determined upon clearance ' Priscilla Colindres Dock Builder * Telephone Encounter - Priscilla Colindres - 11/10/2023 12:30 PM EDT OK, please let him know he will be cancelled for Monday. Let's try to get a cardiology appointment soon . Kelvin Scott * Telephone Encounter - Mary Lynn APRN.FRANCES - 11/10/2023 10:50 AM EDT After review of pt's chart. Anesthesia request a formal cardiac consult. Order placed. Surgery is schedueld for this upcoming Monday. Please postpone until clearance is received. Hi Mary, He has new diagnosis of CHF and and is 88 years old. The risk is too high to proceed without cardiology input. Postpone surgery. Consult cardiology. Claudene documented in this encounterC[facility]08-08-[facility]24 Telephone encounter Note * Telephone Encounter - Emerald Starks - 12/14/2023 10:00 AM EDT Second Attempt- Called pt and left vm to call back to get schedule [facility]-07-[facility] Telephone encounter Note* Telephone Encounter - Billie Dent - 12/13/2023 9:18 AM EDT First attempt at contacting patient, no answer, unable to leave VM, will try again later [facility]-07-[facility] Telephone encounter Note* Telephone Encounter - Livia sOhea, RN - 12/13/2023 8:32 AM EDT Attempted to call patient and left VM. Next new consult opening is 06/24/24. If patient calls back ask if he is willing to travel to other locations for cardiology appointment and if so what other locations is he willing to go to? Will reach out to [facility] to see if they will be able to get him in sooner. [facility] Telephone encounter Note* Telephone Encounter - Priscilla Colindres - 12/12/2023 2:57 PM EDT Patient did not complete 12/10 cardiology visit as it was cancelled due to provider being out. Please reach out to patient and schedule as soon as possible as he is wishing to have his hernia surgery completed. Priscilla Colindres Dock Builder [facility]07-05-[facility] Telephone encounter Note* Telephone Encounter - Priscilla Colindres - 11/10/2023 12:30 PM EDT Patient accepted sooner date for cardiology of 12/11/2023 Surgery date to be determined upon clearance ' Priscilla Colindres Dock Builder [facility]-05-[facility] Telephone encounter Note* Telephone Encounter - Priscilla Colindres - 11/10/2023 12:30 PM EDT OK, please let him know he will be cancelled for Monday. Let's try to get a cardiology appointment soon . Kelvin Scott [facility]07-05-2024 Telephone encounter Note* Telephone Encounter - Mary [...] Postpone surgery. Consult cardiology. Abby [facility]07-05-2024 Instructions* Patient Instructions* Mary Lynn APRN.CNP - 11/10/2023 9:05 AM EDT Images from the original note were not included. [facility] PATIENT PREOPERATIVE INSTRUCTIONS Jacqueline Espinal MD has scheduled you for your procedure at this surgery center: [facility]: [phone] -- [address] [facility] [address]. Please read below carefully for your personalized [...] B-12 ORAL) Stop 7 days before surgery ybua-VH-pqy-jkw-WIJ-CCGK-be-mv 1.5 mg iron- 8.73 mg CpID Stop [...] Procedures: - YOU MUST HAVE A RESPONSIBLE TELEPHONE CLAIMS REPRESENTATIVE TAKE YOU HOME. A SEED SERVICE ADVISOR OR NURSING TECHN CANNOT BE MADE A RESPONSIBLE TELEPHONE CLAIMS REPRESENTATIVE. - We recommend that a responsible person [...] Advance Directive, please fax a copy to [phone] or email to for it to be [...] Lynn APRN.CNP documented in this encounterC[facility]07-05-2024 History and physical note * Mary Lynn [...] CP, palpitations Recent Results (from the past 60929 hour(s)) ECHO Collection Time: 10/19/23 1:39 PM [...] have a large neck STOP-Bang Score: 3 [id number] Score: Age: >=75 Sex: male CHF history: No Hypertension history: Yes Stroke/TIA/thromboembolism history: No Vascular disease history: No Diabetes history: No [id number] Score: 3 ARISCAT Score: Age: >80 Preoperative [...] and consent discussed: yes. Patient / Responsible Alliance Party agrees to proceed: yes Patient / Surrogate [...] +balance issues. No history of TIA's, stroke, PICKING MACHINE OPERATOR tumor, impaired sensorium, hemiplegia, paraplegia or quadraplegia. [...] CHF, congenital heart defect, DVT/PE, hyperlipidemia, recent CA, open heart surgery and valve surgery. GI: [...] ESOPHAGOSCOPY FLEXIBLE REMOVAL FOREIGN BODY 05/27/08 ER [facility] PAST SURGICAL HISTORY OF Mid COLON RESECTION [...] (VITAMIN B-12 ORAL) B-12 CAPS Taking Yes sbve-IR-att-kfx-LHR-UTLW-be-mv 1.5 mg iron- 8.73 mg CpID Take [...] 388 QTC Calculation (Bazett) 479 Calculated P [place] 43 Calculated R [place] -38 Calculated T [place] 43 Impression SINUS RHYTHM WITH FREQUENT PREMATURE VENTRICULAR COMPLEXES LEFT AXIS DEVIATION INFERIOR MYOCARDIAL INFARCTION , AGE UNDETERMINED ABNORMAL ECG Recent Results (from the past 44442 hour(s)) ECHO Collection Time: 10/19/23 1:39 PM [...] TIME: 9:02 AM PAGER/CONTACT #: [facility] History and physical note* Mary Lynn APRN.CNP - 11/10/2023 9:02 AM EDT Images from the original note were not included. [facility] Pre-Anesthesia Consultation [facility] HISTORY [...] CP, palpitations Recent Results (from the past 24784 hour(s)) ECHO Collection Time: 10/19/23 1:39 PM [...] have a large neck STOP-Bang Score: 3 [id number] Score: Age: >=75 Sex: male CHF history: No Hypertension history: Yes Stroke/TIA/thromboembolism history: No Vascular disease history: No Diabetes history: No [id number] Score: 3 ARISCAT Score: Age: >80 Preoperative [...] and consent discussed: yes. Patient / Responsible Alliance Party agrees to proceed: yes Patient / Surrogate [...] +balance issues. No history of TIA's, stroke, PICKING MACHINE OPERATOR tumor, impaired sensorium, hemiplegia, paraplegia or quadraplegia. [...] CHF, congenital heart defect, DVT/PE, hyperlipidemia, recent CA, open heart surgery and valve surgery. GI: [...] ESOPHAGOSCOPY FLEXIBLE REMOVAL FOREIGN BODY 05/27/08 ER [facility] PAST SURGICAL HISTORY OF Mid COLON RESECTION [...] (VITAMIN B-12 ORAL) B-12 CAPS Taking Yes opxl-JU-xyw-txp-KSH-RPJE-be-mv 1.5 mg iron- 8.73 mg CpID Take [...] 388 QTC Calculation (Bazett) 479 Calculated P [place] 43 Calculated R [place] -38 Calculated T [place] 43 Impression SINUS RHYTHM WITH FREQUENT PREMATURE VENTRICULAR COMPLEXES LEFT AXIS DEVIATION INFERIOR MYOCARDIAL INFARCTION , AGE UNDETERMINED ABNORMAL ECG Recent Results (from the past 54218 hour(s)) ECHO Collection Time: 10/19/23 1:39 PM [...] PAGER/CONTACT #: documented in this encounterC[facility]06-21-2024 History of Present illness Narrative* aJcqueline Espinal MD - 10/27/2023 5:19 PM EDT [...] ESOPHAGOSCOPY FLEXIBLE REMOVAL FOREIGN BODY 05/27/08 ER [facility] PAST SURGICAL HISTORY OF Mid COLON RESECTION REPAIR INGUINAL HERNIA Left 07/25/2017 Current Outpatient Medications Medication Sig tamsulosin (FLOMAX) 0.4 mg Take 1 capsule by mouth every afternoon. cyanocobalamin, vitamin B-12, (VITAMIN B-12 ORAL) B-12 CAPS faac-ZV-rfb-khb-NPM-SNCC-be-mv 1.5 mg iron- 8.73 mg CpID Take [...] right inguinal hernia repair with mesh - [id number] Anticipated Anesthetic: MAC with local Patient weight: Blood pressure 138/80, pulse 104, temperature 36.5 C (97.7 F), height 165.1 cm (5' 5), weight 69.5 kg (153 lb 3.2 oz), SpO2 98%. BMI: Body mass index is 25.49 kg/m . Planned antibiotic: Ancef 2gm IVPB account resolution analyst to OR SCDs needed - Yes Return to Clinic: The patient is instructed to follow-up with me 1 week postoperatively Jacqueline Espinal MD documented in this encounterC[facility]06-04-2024 History of Present illness Narrative* Jacqueline [...] ESOPHAGOSCOPY FLEXIBLE REMOVAL FOREIGN BODY 05/27/08 ER [facility] PAST SURGICAL HISTORY OF Mid COLON RESECTION REPAIR INGUINAL HERNIA Left 07/25/2017 Current Outpatient Medications Medication Sig tamsulosin (FLOMAX) 0.4 mg Take 1 capsule by mouth every afternoon. cyanocobalamin, vitamin B-12, (VITAMIN B-12 ORAL) B-12 CAPS qmon-PU-byn-pws-BKP-JLZN-be-mv 1.5 mg iron- 8.73 mg CpID Take [...] entered by the nurse and reviewed by dc Nursing Notes: Christie Salguero RN 10/10/2023 2:04 [...] right inguinal hernia repair with mesh - [id number] Anticipated Anesthetic: MAC with local Patient weight: Blood pressure 134/84, pulse 120, temperature 36.9 C (98.5 F), weight 69.7 kg (153 lb 9.6 oz), SpO2 94%. BMI: Body mass index is 24.79 kg/m . Planned antibiotic: Ancef 2gm IVPB account resolution analyst to OR SCDs needed - Yes Return to Clinic: The patient is instructed to follow-up with me after echocardiogram is completed to schedule surgery. Jacqueline Espinal MD documented in this encounterC[facility]06-04-2024 Nurse Note* Christie Salguero RN - 10/10/2023 [...] years ago Christie Salguero RN [facility]06-04-[facility] Nurse Note* Christie Salguero RN - 10/10/2023 [...] ago Christie Salguero RN [facility] Diagnosis Apical systolic murmur- Primary Right inguinal hernia Inguinal hernia without mention of obstruction or gangrene, unilateral or unspecified, (not specified as recurrent) documented in this encounter [facility]* Diagnosis Right inguinal hernia- Primary Inguinal hernia without mention of obstruction or gangrene, unilateral or unspecified, (not specified as recurrent) documented in this encounter [facility] note* Diagnosis Pre-operative examination- Primary Preoperative examination, [...] Assessment & Plan Note - Mary Lynn APRN.HAND CELL TUBER - 11/10/2023 9:40 AM EDT Associated Problem(s): [...] CP, palpitations Recent Results (from the past 20793 hour(s)) ECHO Collection Time: 10/19/23 1:39 PM [...] 163/86 12/14/2015 120/72 documented [facility] this encounter [facility]* Diagnosis Pre-operative examination- Primary Preoperative examination, unspecified documented in this encounter [facility] [place] [facility]* Diagnosis Pre-operative examination- Primary Preoperative examination, [...] Preoperative examination, unspecified documented in this encounter [facility]* Diagnosis Pre-operative examination- Primary Preoperative examination, [...] specified as recurrent) documented in this encounter [facility]* Diagnosis Pre-operative examination- Primary Preoperative examination, [...] specified as recurrent) documented in this encounter [facility] note* Diagnosis Pre-operative examination- Primary Preoperative examination, [...] movements Memory loss documented in this encounter [facility] note* Diagnosis Pre-operative examination- Primary Preoperative examination, [...] 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 [facility] this encounter [facility] Diagnosis Pre-operative examination- Primary Preoperative examination, [...] unspecified asthma severity, unspecified whether persistent (HCC) Falls- Primary Unspecified fall Cerebrovascular accident (CVA), unspecified mechanism (HCC) Dementia without behavioral disturbance, psychotic disturbance, mood disturbance, or anxiety, unspecified dementia severity, unspecified dementia type (HCC) Swallowing dysfunction Dysphagia, unspecified Primary hypertension Unspecified essential hypertension Ambulatory dysfunction Difficulty in walking Benign prostatic hyperplasia with urinary retention documented in this encounter [facility]* Diagnosis Pre-operative examination- Primary Preoperative examination, [...] unspecified asthma severity, unspecified whether persistent (HCC) Bilateral low back pain without sciatica, unspecified chronicity- Primary Fall, sequela documented in this encounter [facility] for referral (narrative)* Outpatient Procedure (Routine) - Authorized Specialty Diagnoses / Procedures Referred By Shivani cobian [facility] Diagnoses Apical systolic murmur Procedures ECHO ECHO TTC R-T 2D W/WOM-MODE COMPL SPEC&COLR Jacqueline Michaels MD [address] [address] [facility] [place] [address] [place] [address] Referral ID Status Reason Start Date Expiration Date Visits Requested Visits Authorized [id number] Authorized Auto-Generat ed Referral 10/10/2023 10/09/2024 1 1 [facility] for referral (narrative)* Outpatient Procedure (Routine) - Closed Specialty Diagnoses / Procedures Referred By Contac t Referred To Contact [facility] Diagnoses Pre-operative examination Procedures ECG COMPLETE ECG ROUTINE ECG W/LEAST 12 LDS W/I&R Mary Lynn APRN.HAND CELL TUBER [address] [place] [address] [facility][Note 3] Vascular [address] [address] Referral ID Status Reason Start Date Expiration Date V isits Requested Visits Authorized [id number] Closed Auto-Generate d Referral 11/10/2023 11/09/2024 1 1 [facility] for referral (narrative)* Outpatient Procedure (Routine) - Authorized Specialty Diagnoses / Procedures [facility] Referred To Contact [facility] Diagnoses Primary hypertension Nonrheumatic aortic valve stenosis Aortic valve disorder Procedures ECHO ECHO TTHRC R-T 2D W/WOM-MODE COMPL SPEC&COLR D Fabricio Hall MD [address] [facility], [address] [place] [address] [facility][Note 3] [facility] [place] [address] [place] [address] Referral ID Status Reason Start Date Expiration Date Visits Requested Visits Authorized [id number] Authorized Auto-Generat ed Referral 01/29/2024 01/21/2025 1 1 [facility] for referral (narrative)No reason for referral information availableWUniversity Hospitals Health System Work Phone: Reason for visit Narrative* Outpatient Procedure (Routine) - Closed Specialty Diagnoses / Procedures Referred By Contac t [facility] Diagnoses Pre-operative examination Procedures ECG COMPLETE ECG ROUTINE ECG W/LEAST 12 LDS W/I&R Mary Lynn S, EXECUTIVE MEETING MANAGER.HAND CELL TUBER [address] [place] [address] [facility] [place] [address] [place] [address] Referral ID Status Reason Start Date Expiration Date V isits Requested Visits Authorized [id number] Closed Auto-Generate d Referral 11/10/2023 11/09/2024 1 1 [facility] Summary Purpose Family History Relationship Condition Age at Onset Recorded Date/T irene mother Malignant neoplasm of colon Unknown father Malignant neoplasm Unknown Advance Directives Date Activated Date Inactivated Comments 02/26/2024 8:43 PM 03/05/2024 8:18 PM Question Answer Comments DNR Order Discussed With: Surrogate Decision [facility] er Surrogate Decision Maker Name: and daughter Date Activated Date Inactivated Comments 02/22/2024 9:52 PM 02/24/2024 7:11 PM Question Answer Comments Full Code Order Discussed With: Patient Date Activated Date Inactivated Comments 02/26/2024 8:43 PM Date Activated Date Inactivated Comments 02/26/2024 8:43 PM 03/05/2024 8:18 PM Question Answer Comments DNR Order Discussed With: Surrogate Decision [facility] er Surrogate Decision Maker Name: and daughter Date Activated Date Inactivated Comments 02/22/2024 9:52 PM 02/24/2024 7:11 PM Question Answer Comments Full Code Order Discussed With: Patient Advance Directive Response Recorded Date/ Time Do you have a Healthcare Power of Print Shop Manager? Yes September 24, 2024 6:40pm Advance Directives Yes January 02, 2016 8:35am Advance Directive Response Recorded Date/ Time Do you have a Healthcare Pow er of Print Shop Manager? Yes September 25, 2024 12:17am Name of Medical Power of Print Shop Manager Shay Pop, daughter September 25, 2024 12:17am Do you have a Healthcare Pow er of Print Shop Manager? Yes October 01, 2024 1:37pm Name of Medical Power of Print Shop Manager Marilyn Jacobsen, ; Jorge L Jacobsen, son October 01, 2024 1:37pm Advance Directives Yes January 02, 2016 8:35am Advance Directive Response Recorded Date/ Time Do you have a Healthcare Pow er of Print Shop Manager? Yes September 25, 2024 12:17am Name of Medical Power of Print Shop Manager Shay Pop, daughter September 25, 2024 12:17am Do you have a Healthcare Pow er of Print Shop Manager? Yes October 01, 2024 1:37pm Name of Medical Power of Print Shop Manager Marilyn Jacobsen, ; Jorge L Jacobsen, son October 01, 2024 1:37pm Do you have a Healthcare Pow er of Print Shop Manager? Yes November 02, 2024 7:24am Advance Directives Yes January 02, 2016 8:35am Advance Directive Response Recorded Date/ Time Do you have a Healthcare Pow er of Print Shop Manager? Yes December 31, 2024 2:54pm Do you have a Healthcare Pow er of Print Shop Manager? Yes September 25, 2024 12:17am Name of Medical Power of Print Shop Manager Shay Pop, daughter September 25, 2024 12:17am Do you have a Healthcare Pow er of Print Shop Manager? Yes October 01, 2024 1:37pm Name of Medical Power of Print Shop Manager Marilyn Jacobsen, ; Jorge L Jacobsen, son October 01, 2024 1:37pm Do you have a Healthcare Pow er of Print Shop Manager? Yes November 02, 2024 7:24am Advance Directives Yes January 02, 2016 8:35am Reason for Referral Specialty Diagnoses / Procedures Referred By Contac t Referred To Contact Cardiology Diagnoses Pre-operative examination Procedures CONSULT TO CARDIOLOGY OFFICE/OUTPATIENT [facility] 60 MINUTES Mary Lynn APRN.HAND CELL TUBER [address] [place] [address] Referral ID Status Reason Start Date Expiration Date Visits Requested Visits Authorized [id number] Authorized PCP Requested Referral 11/10/2023 11/09/2024 1 1 Specialty Diagnoses / Procedures Referred By Contac t Referred To Contact Neurology Diagnoses Acute delirium Procedures CONSULT TO NEUROLOGY OFFICE/OUTPATIENT [facility] 60 MINUTES Mary Lynn APRN.CNP [address] [place] [address] Referral ID Status Reason Start Date Expiration Date Visits Requested Visits Authorized [id number] Authorized PCP Requested Referral 03/27/2025 1 1 [...] 5:26p m History of esophageal dilatation September d2024 5:26pm Chief Complaint Admit Date FALL WITH INABILITY [...] 9:04am Cerebrovascular accident October 22, 2024 4:06pm EKG October 22, 2024 5:29 pm fall November 02, 2024 7:19 am Reason for Visit Admit Date Debility September 24, 2024 11:44 pm Inferior pubic ramus fracture September 24, 2024 11:44pm Vitamin D deficiency September 24, 2024 11:4 4pm Contusion of left hip September 24, 2024 11: 44pm Elevated serum creatinine September 24, 2024 11:44pm Leukocytosis September 24, 2024 11:44 pm Acute ischemic right MCA stroke September 11:44pm Fall September 24, 2024 11:44 pm Inability to ambulate due to hip September 11:44pm Debility September 27, 2024 5:26p m Facial droop September 27, 2024 5:26p m Heme + stool September 27, 2024 5:26p m Inferior pubic ramus fracture September 27, 2024 5:26pm Left leg weakness September 27, 2024 5:26p m Pain aggravated by physical activity September 27, 2024 5:26pm Paresthesias September 27, 2024 5:26p m Cognitive dysfunction September 27, 2024 5:2 6pm Dementia with behavioral disturbance September 27, 2024 5:26pm Eosinophilia, unspecified September 27, 2024 5:26pm Hypoxemia associated with sleep September 5:26pm Oropharyngeal dysphagia September 27, 2024 5 :26pm Urinary retention September 27, 2024 5:26p m Depression September 27, 2024 5:26p m Acute bronchitis September 27, 2024 5:26p m Aspiration into trachea September 27, 2024 5 :26pm Conjunctivitis September 27, 2024 5:26p m Contusion of left hip September 27, 2024 5:2 6pm Fever September 27, 2024 5:26p m Hypophosphatemia September 27, 2024 5:26p m Leukocytosis September 27, 2024 5:26p m Microscopic hematuria September 27, 2024 5:2 6pm Productive cough September 27, 2024 5:26p m Acute ischemic right MCA stroke September 5:26pm BPH (benign prostatic hyperplasia) September 062024 5:26pm Dyslipidemia September 27, 2024 5:26p m Esophageal stenosis September 27, 2024 5:26p m Essential (primary) hypertension September 5:26pm Fall September 27, 2024 5:26p m GERD (gastroesophageal reflux disease) M ay 2024 5:26pm History of esophageal dilatation September 5:26pm Mild aortic stenosis September 27, 2024 5:26 pm Presbycusis September 27, 2024 5:26p m Seizure disorder September 27, 2024 5:26p m Chief Complaint Admit Date FALL WITH INABILITY [...] 10:54am Cerebrovascular accident October 10, 2024 10:20am STROKE October 12, 2024 8:10a m Cerebrovascular accident October 14, 2024 9:07am EKG October 14, 2024 11:43 am Cerebrovascular accident October 15, 2024 3:13pm Cerebrovascular accident October 16, 2024 10:57am Cerebrovascular accident October 21, 2024 9:04am Cerebrovascular accident October 22, 2024 4:06pm EKG October 22, 2024 5:29 pm fall November 02, 2024 7:19 am ACUTE HYPOXIC RESPIRATORY FAILURE December 31, 2024 6:18pm Reason for Visit Admit Date Debility September 24, 2024 11:44 pm Inferior pubic ramus fracture September 24, 2024 11:44pm Vitamin D deficiency September 24, 2024 11:4 4pm Contusion of left hip September 24, 2024 11: 44pm Elevated serum creatinine September 24, 2024 11:44pm Leukocytosis September 24, 2024 11:44 pm Acute ischemic right MCA stroke September 11:44pm Fall September 24, 2024 11:44 pm Inability to ambulate due to hip September 11:44pm Debility September 27, 2024 5:26p m Facial droop September 27, 2024 5:26p m Heme + stool September 27, 2024 5:26p m Inferior pubic ramus fracture September 27, 2024 5:26pm Left leg weakness September 27, 2024 5:26p m Pain aggravated by physical activity September 27, 2024 5:26pm Paresthesias September 27, 2024 5:26p m Cognitive dysfunction September 27, 2024 5:2 6pm Dementia with behavioral disturbance September 27, 2024 5:26pm Eosinophilia, unspecified September 27, 2024 5:26pm Hypoxemia associated with sleep September 5:26pm Oropharyngeal dysphagia September 27, 2024 5 :26pm Urinary retention September 27, 2024 5:26p m Depression September 27, 2024 5:26p m Acute bronchitis September 27, 2024 5:26p m Aspiration into trachea September 27, 2024 5 :26pm Conjunctivitis September 27, 2024 5:26p m Contusion of left hip September 27, 2024 5:2 6pm Fever September 27, 2024 5:26p m Hypophosphatemia September 27, 2024 5:26p m Leukocytosis September 27, 2024 5:26p m Microscopic hematuria September 27, 2024 5:2 6pm Productive cough September 27, 2024 5:26p m Acute ischemic right MCA stroke September 5:26pm BPH (benign prostatic hyperplasia) September 062024 5:26pm Dyslipidemia September 27, 2024 5:26p m Esophageal stenosis September 27, 2024 5:26p m Essential (primary) hypertension September 5:26pm Fall September 27, 2024 5:26p m GERD (gastroesophageal reflux disease) M ay 2024 5:26pm History of esophageal dilatation September 5:26pm Mild aortic stenosis September 27, 2024 5:26 pm Presbycusis September 27, 2024 5:26p m Seizure disorder September 27, 2024 5:26p m Acute hypoxic respiratory failure December 31, 2024 6:18pm Additional Source Comments (unrecognized sect ion and content) No Status Records FoundNo Status Records FoundNo Status Records FoundNo Status Records FoundNo Status Records FoundNo Status Records Found INFORMATION SOURCE (unrecogn ized section and content) DATE CREATED AUTHOR 10/01/2023 [facility] DATE CREATED AUTHOR AUTHOR'S ORGANIZ ATION 11/28/2023 [facility] DATE CREATED AUTHOR AUTHOR'S ORGANIZ ATION 02/27/2024 [facility] DATE CREATED AUTHOR AUTHOR'S ORGANIZ ATION 03/06/2024 [facility] DATE CREATED AUTHOR AUTHOR'S ORGANIZ ATION 11/16/2024 [facility] DATE CREATED AUTHOR AUTHOR'S ORGANIZ ATION 11/22/2024 [facility] Source Comments (unrecognize d section and content) In the event this informatio n is protected by the Federal Confidentiality of Alcohol and Drug Abuse Patient Records regulations: The Federal rules restrict any use of the information to criminally investigate or prosecute any alcohol or drug abuse patient.[facility] the event this information is protected by the Federal Confidentiality of Alcohol and Drug Abuse Patient Records regulations: The Federal rules restrict any use of the information to criminally investigate or prosecute any alcohol or drug abuse patient.[facility] the event this information is protected by the Federal Confidentiality of Alcohol and Drug Abuse Patient Records regulations: The Federal rules restrict any use of the information to criminally investigate or prosecute any alcohol or drug abuse patient.[facility] the event this information is protected by the Federal Confidentiality of Alcohol and Drug Abuse Patient Records regulations: The Federal rules restrict any use of the information to criminally investigate or prosecute any alcohol or drug abuse patient.[facility] the event this information is protected by the Federal Confidentiality of Alcohol and Drug Abuse Patient Records regulations: The Federal rules restrict any use of the information to criminally investigate or prosecute any alcohol or drug abuse patient.[facility] the event this information is protected by the Federal Confidentiality of Alcohol and Drug Abuse Patient Records regulations: The Federal rules restrict any use of the information to criminally investigate or prosecute any alcohol or drug abuse patient.[facility] the event this information is protected by the Federal Confidentiality of Alcohol and Drug Abuse Patient Records regulations: The Federal rules restrict any use of the information to criminally investigate or prosecute any alcohol or drug abuse patient.[facility] the event this information is protected by the Federal Confidentiality of Alcohol and Drug Abuse Patient Records regulations: The Federal rules restrict any use of the information to criminally investigate or prosecute any alcohol or drug abuse patient.[facility] the event this information is protected by the Federal Confidentiality of Alcohol and Drug Abuse Patient Records regulations: The Federal rules restrict any use of the information to criminally investigate or prosecute any alcohol or drug abuse patient.[facility] the event this information is protected by the Federal Confidentiality of Alcohol and Drug Abuse Patient Records regulations: The Federal rules restrict any use of the information to criminally investigate or prosecute any alcohol or drug abuse patient.[facility] the event this information is protected by the Federal Confidentiality of Alcohol and Drug Abuse Patient Records regulations: The Federal rules restrict any use of the information to criminally investigate or prosecute any alcohol or drug abuse patient.[facility] the event this information is protected by the Federal Confidentiality of Alcohol and Drug Abuse Patient Records regulations: The Federal rules restrict any use of the information to criminally investigate or prosecute any alcohol or drug abuse patient.[facility] the event this information is protected by the Federal Confidentiality of Alcohol and Drug Abuse Patient Records regulations: The Federal rules restrict any use of the information to criminally investigate or prosecute any alcohol or drug abuse patient.[facility] the event this information is protected by the Federal Confidentiality of Alcohol and Drug Abuse Patient Records regulations: The Federal rules restrict any use of the information to criminally investigate or prosecute any alcohol or drug abuse patient.[facility] the event this information is protected by the Federal Confidentiality of Alcohol and Drug Abuse Patient Records regulations: The Federal rules restrict any use of the information to criminally investigate or prosecute any alcohol or drug abuse patient.[facility] the event this information is protected by the Federal Confidentiality of Alcohol and Drug Abuse Patient Records regulations: The Federal rules restrict any use of the information to criminally investigate or prosecute any alcohol or drug abuse patient.[facility] the event this information is protected by the Federal Confidentiality of Alcohol and Drug Abuse Patient Records regulations: The Federal rules restrict any use of the information to criminally investigate or prosecute any alcohol or drug abuse patient.[facility] the event this information is protected by the Federal Confidentiality of Alcohol and Drug Abuse Patient Records regulations: The Federal rules restrict any use of the information to criminally investigate or prosecute any alcohol or drug abuse patient.[facility] the event this information is protected by the Federal Confidentiality of Alcohol and Drug Abuse Patient Records regulations: The Federal rules restrict any use of the information to criminally investigate or prosecute any alcohol or drug abuse patient.[facility] the event this information is protected by the Federal Confidentiality of Alcohol and Drug Abuse Patient Records regulations: The Federal rules restrict any use of the information to criminally investigate or prosecute any alcohol or drug abuse patient.[facility] the event this information is protected by the Federal Confidentiality of Alcohol and Drug Abuse Patient Records regulations: The Federal rules restrict any use of the information to criminally investigate or prosecute any alcohol or drug abuse patient.[facility] Hospital[facility] the event this information is protected by the Federal Confidentiality of Alcohol and Drug Abuse Patient Records regulations: The Federal rules restrict any use of the information to criminally investigate or prosecute any alcohol or drug abuse patient.[facility] the event this information is protected by the Federal Confidentiality of Alcohol and Drug Abuse Patient Records regulations: The Federal rules restrict any use of the information to criminally investigate or prosecute any alcohol or drug abuse patient.[facility] the event this information is protected by the Federal Confidentiality of Alcohol and Drug Abuse Patient Records regulations: The Federal rules restrict any use of the information to criminally investigate or prosecute any alcohol or drug abuse patient.[facility] Reason for Visit (unrecogniz ed section and content) Reason Comments Consult Right hernia repair Reason Comments Follow Up Review echocardiogra m to possibly scheduled hernia surgery. Reason Comments Cardiac Clearance Reason Comments Consult Reason Comments Cancel Procedure Reason Comments Appointment Reason Comments cardiology and Neurology clearance Reason Comments Establish Care Reason Onset Date Comments Refill Request 09/06/2024 Reason Comments Incontinence Reason Comments Need for C order Reason Comments [facility] requesting records Reason Onset Date Comments Refill Request 12/04/2024 Care Teams (unrecognized sec tion and content) Team Status: Active Member Role Status Dates Dr. Nimisha Oseguera MD Primary Care Provider Active Team Status: Inactive Member Role Status Dates Dr. Gerardo Duque DO Emergency Provider Active Start : September 24, 2024 End: September 27, 2024 Dr. Nimisha Oseguera MD Primary Care Provider Active Start: September 24, 2024 End: September 27, 2024 Dr. Greardo Vizcaino DO Admit Provider Active Start: September [...] tart: September 25, 2024 Dr. Juju Vuong , Other Provider Active Start : September 25, 2024 Team Status: Active Member Role Status Dates Dr. Nimisha Oseguera MD Primary Care Provider Active Start: September 26, 2024 Dr. Kemal Chen MD Attending Provider Active S tart: September 26, 2024 Dr. Juju Vuong , Referring Provider Active S tart: September 26, [...] September 26, 2024 Dr. Gerardo Vizcaino , Admit Provider Active Start: September 26, 2024 Dr. Gerardo Vizcaino , Other Provider Active Start: September 26, 2024 Dr. Juju Vuong DO Attending Provider Active S tart: September 26, 2024 Dr. Juju Vuong , Other Provider Active Start : September 26, 2024 Willard Villalba MD Other Provider Active Start: [place] 2024 Dr. Bubba Manriquez MD Other Provider Active Start: September 26, 2024 Radha Lewis MD Other Provider Active Start : September 26, 2024 Dr. Stephanie Resendiz DO Other Provider Active St art: September 26, 2024 Dr. Inocencia Gaines MD Other Provider Active Start: September 26, 2024 Dr. Yg Savage MD Other Provider Active Sta rt: September 26, 2024 Dr. Lyndsay Patterson MD Other Provider Active Start : September 26, 2024 Dr. Mickey Arredondo MD Other Provider Active Start: September 26, 2024 Dr. aZn Edmond MD Other Provider Active Start : [...] Start: September 27, 2024 Dr. Gerardo Vizcaino DO Other Provider Active Start: September 27, 2024 Dr. Juju Vuong DO Attending Provider Active S tart: September 27, 2024 Dr. Juju Vuong DO Other Provider Active Start : September 27, [...] Provider Active Start: September 30, 2024 Dr. Ginette Sementi , DO Admit Provider Active Start: September 30, 2024 Dr. Shay Gaxiola , DO Attending Provider Act kev Start: September 30, 2024 Dr. Shay Gaxiola , DO Other Provider Active Start: September 30, [...] October 03, 2024 Dr. Shay Gaxiola , Admit Provider Active Start: October 03, 2024 Dr. Shay Gaxiola , DO Attending Provider Act kev Start: October 03, 2024 Dr. Shay Gaxiola , Other Provider Active Start: October 03, 2024 Team Status: Active Member Role Status Dates Dr. Nimisha Oseguera MD Primary Care Provider Active Start: October 07, 2024 Dr. Shay Gaxiola DO Admit Provider Active Start: October 07, 2024 Dr. Shay Gaxiola , DO Attending Provider Act kev Start: October 07, 2024 Dr. Shay Gaxiola , DO Other Provider Active Start: October 07, 2024 Team Status: Active Member Role Status Dates Dr. Nimisha Oseguear MD Primary Care Provider Active Start: October [...] Start: October 10, 2024 Dr. Shay Gaxiola , Admit Provider Active Start: October 10, 2024 Dr. Shay Gaxiola DO Attending Provider Act kev Start: October 10, 2024 Dr. Shay Gaxiola , Other Provider Active Start: October 10, 2024 Team Status: Active Member Role Status Dates Dr. Nimisha Oseguera MD Primary Care Provider Active Start: October 14, 2024 Dr. Shay Gaxiola , DO Admit Provider Active Start: October 14, [...] End: October 14, 2024 Dr. Shay Gaxiola DO Referring Provider Act kev Start: October 14, 2024 End: October 14, 2024 Team Status: Active Member Role Status Dates Dr. Nimisha Oseguera MD Primary Care Provider Active Start: October 15, 2024 Dr. Shay Gaxiola DO Admit Provider Active Start: October 15, 2024 Dr. Shay Gaxiola , Attending Provider Act kev Start: October 15, [...] October 16, 2024 Dr. Shay Gaxiola DO Other Provider Active Start: October 16, 2024 Team Status: Active Member Role Status Dates Dr. Nimisha Oseguera MD Primary Care Provider Active Start: October 21, 2024 Dr. Shay Gaxiola DO Admit Provider Active Start: October 21, 2024 Dr. Shay Gaxiola , Attending Provider Act kev Start: October 21, 2024 Dr. Shay Gaxiola DO Referring Provider Act kev Start: October 21, 2024 Dr. Shay Gaxiola DO Other Provider Active Start: October 21, 2024 Team Status: Active Member Role Status Dates Dr. Nimisha Oseguera MD Primary Care Provider Active Start: October 22, 2024 Dr. Shay Gaxiola DO Admit Provider Active Start: October 22, 2024 Dr. Shay Gaxiola DO Attending Provider Act kev Start: October 22, 2024 Dr. Shay Gaxiola DO Referring Provider Act kev Start: October 22, 2024 Dr. Shay Gaxiola DO Other Provider Active Start: October 22, 2024 Senior Mechanical Technician Relationship Specialty Start Date End Date Daniel Perez MD PCP - General Family Medicine 12/14/15 Senior Mechanical Technician Relationship Specialty Start Date End Date Daniel Perez MD PCP - General Family Medicine 12/14/15 Senior Mechanical Technician Relationship Specialty Start Date End Date Daniel Perez MD PCP - General Family Medicine 12/14/15 Senior Mechanical Technician Relationship Specialty Start Date End Date Daniel Perez MD PCP - General Family Medicine 12/14/15 Senior Mechanical Technician Relationship Specialty Start Date End Date Daniel Perez MD PCP - General Family Medicine 12/14/15 Senior Mechanical Technician Relationship Specialty Start Date End Date Daniel Perez MD PCP - General Family Medicine 12/14/15 Senior Mechanical Technician Relationship Specialty Start Date End Date Daniel Perez MD PCP - General Family Medicine 12/14/15 Senior Mechanical Technician Relationship Specialty Start Date End Date Daniel Perez MD PCP - General Family Medicine 12/14/15 Senior Mechanical Technician Relationship Specialty Start Date End Date Daniel Perez MD PCP - General Family Medicine 12/14/15 Senior Mechanical Technician Relationship Specialty Start Date End Date Daniel Perez MD PCP - General Family Medicine 12/14/15 Senior Mechanical Technician Relationship Specialty Start Date End Date Daniel Perez MD PCP - General Family Medicine 12/14/15 Senior Mechanical Technician Relationship Specialty Start Date End Date Daniel Perez MD PCP - General Family Medicine 12/14/15 Senior Mechanical Technician Relationship Specialty Start Date End Date Daniel Perez MD PCP - General Family Medicine 12/14/15 Senior Mechanical Technician Relationship Specialty Start Date End Date Nimisha Oseguera MD [address] [place], [place] [id number] PCP - General Internal Medicine 09/02/24 Senior Mechanical Technician Relationship Specialty Start Date End Date Nimisha Oseguera MD [address] [place] [address] PCP - General Internal Medicine 09/02/24 Senior Mechanical Technician Relationship Specialty Start Date End Date Nimisha Oseguera MD [address] [place] [address] PCP - General Internal Medicine 09/02/24 Senior Mechanical Technician Relationship Specialty Start Date End Date Nimisha Oseguera MD [address] [place] [address] PCP - General Internal Medicine 09/02/24 Team Status: Active Member Role Status Dates Dr. Gerardo Duque DO Emergency Provider Active Start : September 24, 2024 Dr. Nimisha Oseguera MD Primary Care Provider Active Start: September 24, 2024 Dr. Gerardo Vizcaino DO Admit Provider Active Start: September 24, 2024 Dr. Gerardo Vizcaino DO Attending Provider Active Start: September 24, 2024 Team Status: Active Member Role/Relationship Status Dates Dr. Nimisha Oseguera MD Primary Care Provider Active Team Status: Inactive Member Role/Relationship Status Dates Dr. Gerardo Duque DO Emergency Provider Active Start : September 24, 2024 End: September 27, 2024 Dr. Nimisha Oseguera MD Primary Care Provider Active Start: September 24, 2024 End: September 27, 2024 Dr. Gerardo Vizcaino DO Admit Provider Active Start: September 24, 2024 End: September 27, 2024 Dr. Gerardo Vizcaino DO Other Provider Active Start: September 24, 2024 End: September 27, 2024 Dr. Juju Vuong , Attending Provider Active S tart: September 24, 2024 End: September 27, 2024 Team Status: Active Member Role/Relationship Status Dates Dr. Gerardo Duque DO Emergency [...] September 25, 2024 Team Status: Active Member Role/Relationship Status Dates Dr. Nimisha Oseguera MD Primary Care Provider Active Start: September 26, 2024 Dr. Kemal Chen MD Attending Provider Active S tart: September 26, 2024 Dr. Juju Vuong DO Referring Provider Active S tart: September 26, 2024 Team Status: Active Member Role/Relationship Status Dates Dr. Nimisha Oseguera MD Primary Care Provider Active Start: September 26, 2024 Dr. Kip Grant MD Attending Provider Activ e Start: September 26, 2024 Team Status: Active Member Role/Relationship Status Dates Dr. Gerardo Duque , Emergency Provider Active Start : September 26, 2024 Dr. Nimisha Oseguera MD Primary Care Provider Active Start: September 26, 2024 Dr. Gerardo Vizcaino DO Admit Provider Active Start: September 26, 2024 Dr. Gerardo Vizcaino , Other Provider Active Start: September 26, 2024 Dr. Juju Vuong DO Attending Provider Active S tart: September 26, 2024 Dr. Juju Vuong DO Other Provider Active Start : September 26, 2024 Willard Villalba MD Other Provider Active Start: 2024 Dr. Bubba Manriquez MD Other Provider [...] September 26, 2024 Team Status: Active Member Role/Relationship Status Dates Dr. Gerardo Duque DO Emergency Provider Active Start : September 27, 2024 Dr. Nimisha Oseguera MD Primary Care Provider Active Start: September 27, 2024 Dr. Gerardo Vizcaino DO Admit Provider Active Start: September 27, 2024 Dr. Gerardo Vizcaino DO Other Provider Active Start: September 27, 2024 Dr. Juju Vuong DO Attending Provider Active S tart: September 27, 2024 Dr. Juju Vuong , Other Provider Active Start : September 27, 2024 Team Status: Inactive Member Role/Relationship Status Dates Dr. Nimisha Oseguera MD Primary [...] October 23, 2024 Team Status: Active Member Role/Relationship Status Dates Dr. Nimisha Oseguera MD Primary Care Provider Active Start: September 28, 2024 Dr. Shay Gaxiola DO Admit Provider Active Start: September 28, 2024 Dr. Ginette Sementi , DO Attending Provider Act kev Start: September 28, 2024 Dr. Shay Gaxiola , DO Other Provider Active Start: September 28, 2024 Team Status: Active Member Role/Relationship Status Dates Dr. Nimisha Oseguera MD Primary Care Provider Active Start: September 30, 2024 Dr. Shay Gaxiola , DO Admit Provider Active Start: September 30, 2024 Dr. Shay Gaxiola , DO Attending Provider Act kev Start: September 30, 2024 Dr. Shay Gaxiola , DO Other Provider Active Start: September 30, 2024 Team Status: Active Member Role/Relationship Status Dates Dr. Nimisha Oseguera MD Primary Care Provider Active Start: October 01, 2024 End: October 01, 2024 Dr. Juan C Guthrie MD Attending Provider Active Start: October 01, 2024 End: October 01, 2024 Dr. Shay Gaxiola , Referring Provider Act kev Start: October 01, 2024 End: October 01, 2024 Team Status: Active Member Role/Relationship Status Dates Dr. Nimisha Oseguera MD Primary Care Provider Active Start: October 01, 2024 Dr. Shay Gaxiola DO Admit Provider Active Start: October 01, 2024 Dr. Shay Gaxiola , DO Attending Provider Act kev Start: October 01, 2024 Dr. Shay Gaxiola , Other Provider Active Start: October 01, 2024 Team Status: Active Member Role/Relationship Status Dates Dr. Nimisha Oseguera MD Primary Care Provider Active Start: October 03, 2024 Dr. Shay Gaxiola , Admit Provider Active Start: October 03, 2024 Dr. Shay Gaxiola , DO Attending Provider Act kev Start: October 03, 2024 Dr. Shay Gaxiola , DO Other Provider Active Start: October 03, 2024 Team Status: Active Member Role/Relationship Status Dates Dr. Nimisha Oseguera MD Primary Care Provider Active Start: October 07, 2024 Dr. Shay Gaxiola DO Admit Provider Active Start: October 07, 2024 Dr. Shay Gaxiola , DO Attending Provider Act kev Start: October 07, 2024 Dr. Shay Gaxiola DO Other Provider Active Start: October 07, 2024 Team Status: Active Member Role/Relationship Status Dates Dr. Nimisha Oseguera MD Primary Care Provider Active Start: October 08, 2024 Dr. Shay Gaxiola DO Admit Provider Active Start: October 08, 2024 Dr. Shay Gaxiola DO Attending Provider Act kev Start: October 08, 2024 Dr. Shay Gaxiola DO Other Provider Active Start: October 08, 2024 Team Status: Active Member Role/Relationship Status Dates Dr. Nimisha Oseguera MD Primary Care Provider Active Start: October 10, 2024 Dr. Shay Gaxiola DO Admit Provider Active Start: October 10, 2024 Dr. Shay Gaxiola DO Attending Provider Act kev Start: October 10, 2024 Dr. Shay Gaxiola DO Other Provider Active Start: October 10, 2024 Team Status: Active Member Role/Relationship Status Dates Dr. Nimisha Oseguera MD Primary Care Provider Active Start: October 14, 2024 Dr. Shay Gaxiola DO Admit Provider Active Start: October 14, 2024 Dr. Shay Gaxiola DO Attending Provider Act kev Start: October 14, 2024 Dr. Shay Gaxiola DO Other Provider Active Start: October 14, 2024 Team Status: Active Member Role/Relationship Status Dates Dr. Nimisha Oseguera MD Primary Care Provider Active Start: October 14, 2024 End: October 14, 2024 Dr. Juan C Guthrie MD Attending Provider Active Start: October 14, 2024 End: October 14, 2024 Dr. Shay Gaxiola DO Referring Provider Act kev Start: October 14, 2024 End: October 14, 2024 Team Status: Active Member Role/Relationship Status Dates Dr. Nimisha Oseguera MD Primary Care Provider Active Start: October 15, 2024 Dr. Shay Gaxiola DO Admit Provider Active Start: October 15, 2024 Dr. Shay Gaxiola DO Attending Provider Act kev Start: October 15, 2024 Dr. Shay Gaxiola DO Other Provider Active Start: October 15, 2024 Team Status: Active Member Role/Relationship Status Dates Dr. Nimisha Oseguera MD Primary Care Provider Active Start: October 16, 2024 Dr. Shay Gaxiola DO Admit Provider Active Start: October 16, 2024 Dr. Shay Gaxiola DO Attending Provider Act kev Start: October 16, 2024 Dr. Shay Gaxiola DO Other Provider Active Start: October 16, 2024 Team Status: Active Member Role/Relationship Status Dates Dr. Nimisha Oseguera MD Primary Care Provider Active Start: October 21, 2024 Dr. Shay Gaxiola DO Admit Provider Active Start: October 21, 2024 Dr. Shay Gaxiola DO Attending Provider Act kev Start: October 21, 2024 Dr. Shay Gaxiola DO Other Provider Active Start: October 21, 2024 Team Status: Active Member Role/Relationship Status Dates Dr. Nimisha Oseguera MD Primary Care Provider Active Start: October 22, 2024 Dr. Shay Gaxiola DO Admit Provider Active Start: October 22, 2024 Dr. Shay Gaxiola DO Attending Provider Act kev Start: October 22, 2024 Dr. Shay Gaxiola DO Other Provider Active Start: October 22, 2024 Team Status: Active Member Role/Relationship Status Dates Dr. Nimisha Oseguera MD Primary Care Provider Active Start: October 22, 2024 End: October 22, 2024 Dr. Matthew Chavarria MD Attending Provider Active S tart: October 22, 2024 End: October 22, 2024 Dr. Shay Gaxiola DO Referring Provider Act kev Start: October 22, 2024 End: October 22, 2024 Team Status: Inactive Member Role/Relationship Status Dates Dr. Nimisha Oseguera MD Primary Care Provider Active Start: November 02, 2024 End: November 02, 2024 Dr. Kemal Elkins DO Emergency Provider Active Start: November 02, 2024 End: November 02, 2024 Senior Mechanical Technician Relationship Specialty Start Date End Date Nimisha Oseguera MD [address] [place] [address] PCP - General Internal Medicine 09/02/24 Precious Love APRN.HAND CELL TUBER [address] [place] [address] Adult And Pediatric Neurologist Internal Medicine 09/23/24 Senior Mechanical Technician Relationship Specialty Start Date End Date Nimisha Oseguera MD [address] [place] [address] PCP - General Internal Medicine 09/02/24 Precious Love APRN.HAND CELL TUBER [address] [place] [address] Adult And Pediatric Neurologist Internal Medicine 09/23/24 Senior Mechanical Technician Relationship Specialty Start Date End Date Nimisha Oseguera MD [address] [place] [address] PCP - General Internal Medicine 09/02/24 Precious Love APRN.HAND CELL TUBER [address] [place] [address] Adult And Pediatric Neurologist Internal Medicine 09/23/24 Senior Mechanical Technician Relationship Specialty Start Date End Date Nimisha Oseguera MD [address] [place] [address] PCP - General Internal Medicine 09/02/24 Precious Love APRN.HAND CELL TUBER [address] [place] [address] Adult And Pediatric Neurologist Internal Medicine 09/23/24 Senior Mechanical Technician Relationship Specialty Start Date End Date Nimisha Oseguera MD [address] [place] [address] PCP - General Internal Medicine 09/02/24 Precious Love APRN.HAND CELL TUBER [address] [place] [address] [facility] Internal Medicine 09/23/24 Team Status: Active Member Role/Relationship Status Dates Dr. Nimisha Oesguera MD Primary Care Provider Active Start: October 12, 2024 Dr. Juju Vunog DO Attending Provider Active S tart: October 12, 2024 Dr. Juju Vuong DO Referring Provider Active S tart: October 12, 2024 Team Status: Active Member Role/Relationship Status Dates Dr. Nimisha Oseguera MD Primary Care Provider Active Start: October 14, 2024 Dr. Shay Gaxiola DO Admit Provider Active Start: October 14, 2024 Dr. Shay Gaxiola DO Attending Provider Act kev Start: October 14, 2024 Dr. Shay Gaxiola DO Other Provider Active Start: October 14, 2024 Team Status: Active Member Role/Relationship Status Dates Dr. Nimisha Oseguera MD Primary Care Provider Active Start: October 14, 2024 End: October 14, 2024 Dr. Juan C Guthrie MD Attending Provider Active Start: October 14, 2024 End: October 14, 2024 Dr. Shay Gaxiola DO Referring Provider Act kev Start: October 14, 2024 End: October 14, 2024 Team Status: Active Member Role/Relationship Status Dates Dr. Nimisha Oseguera MD Primary Care Provider Active Start: October 15, 2024 Dr. Shay Gaxiola DO Admit Provider Active Start: October 15, 2024 Dr. Shay Gaxiola DO Attending Provider Act kev Start: October 15, 2024 Dr. Shay Gaxiola DO Other Provider Active Start: October 15, 2024 Team Status: Active Member Role/Relationship Status Dates Dr. Nimisha Oseguera MD Primary Care Provider Active Start: October 16, 2024 Dr. Shay Gaxiola DO Admit Provider Active Start: October 16, 2024 Dr. Shay Gaxiola DO Attending Provider Act kev Start: October 16, 2024 Dr. Shay Gaxiola DO Other Provider Active Start: October 16, 2024 Team Status: Active Member Role/Relationship Status Dates Dr. Nimisha Oseguera MD Primary Care Provider Active Start: October 21, 2024 Dr. Shay Gaxiola DO Admit Provider Active Start: October 21, 2024 Dr. Shay Gaxiola DO Attending Provider Act kev Start: October 21, 2024 Dr. Shay Gaxiola DO Other Provider Active Start: October 21, 2024 Team Status: Active Member Role/Relationship Status Dates Dr. Nimisha Oseguera MD Primary Care Provider Active Start: October 22, 2024 Dr. Shay Gaxiola DO Admit Provider Active Start: October 22, 2024 Dr. Shay Gaxiola DO Attending Provider Act kev Start: October 22, 2024 Dr. Shay Gaxiola DO Other Provider Active Start: October 22, 2024 Team Status: Active Member Role/Relationship Status Dates Dr. Nimisha Oseguera MD Primary Care Provider Active Start: October 22, 2024 End: October 22, 2024 Dr. Matthew Chavarria MD Attending Provider Active S tart: October 22, 2024 End: October 22, 2024 Dr. Shay Gaxiola DO Referring Provider Act kev Start: October 22, 2024 End: October 22, 2024 Team Status: Inactive Member Role/Relationship Status Dates Dr. Nimisha Oseguera MD Primary Care Provider Active Start: November 02, 2024 End: November 02, 2024 Dr. Kemal Elkins DO Attending Provider Active Start: November 02, 2024 End: November 02, 2024 Dr. Kemal Elkins DO Emergency Provider Active Start: November 02, 2024 End: November 02, 2024 Team Status: Active Member Role/Relationship Status Dates Dr. Nimisha Oseguera MD Primary Care Provider Active Start: December 31, 2024 Dr. Gerardo Duque DO Emergency Provider Active Start : December 31, 2024 Dr. Richa Richards MD Admit Provider Active Star t: December 31, 2024 Dr. Richa Richards MD Attending Provider Active Start: December 31, 2024 Goals (unrecognized section and content) Goals [...] BE BASED ON THE PRIMARY CLINICAL RECORDS. [facility] [employer] [facility]. provides no warranty or guarantee of the accuracy or completeness of information in this document.
[2025-01-01] VITALS (18 sets, daily range): BP systolic 102–142; BP diastolic 56–91; PULSE 62–96; RESP 14–18; TEMP 36.4–36.8; O2SAT 90–100; BMI 18.7
[2025-01-01] MEDS: Ampicillin/Sulbactam 3 GM in 0.9% Normal Saline (100mL MB+) 100 ML IV ×4 (00:06→17:48)
[2025-01-01 06:12] LABS: Hematocrit 36.0 % (40-54); Hemoglobin 11.7 g/dL (13.0-16.5); Immature Granulocytes Count 0.070 X10^3/uL (0.0-0.0); Mean Corp Hgb Conc 32.5 g/dL (32-36); Mean Corpuscular Volume 90.7 fL (80-94); Mean Platelet Vol. 10.0 fl (6.2-12.0); NRBC Flagged by Analyzer 0 % (0-5); Platelet Count 245 K/mm3 (150-450); RBC Distribution Width CV 14.5 % (11.6-14.6); RBC Distribution Width SD 47.9 fl (35.1-43.9); Red Blood Count 3.97 M/mm3 (4.6-6.2); White Blood Count 10.5 K/mm3 (4.4-11.0)
[2025-01-01 06:34] LABS: Anion Gap 9 (5-15); BUN 21 mg/dL (4-19); BUN/Creat Ratio 22.9 RATIO (10-20); Calcium,Total 8.7 mg/dL (7.6-11.0); Carbon Dioxide 25.8 mmol/L (21.0-32.0); Chloride 111 mmol/L (98-108); Estimated Creatinine Clearance 39.18 ml/min (50-250); Glucose 132 mg/dL (70-99); Potassium 4.1 mmol/L (3.3-5.1)
[2025-01-01] MEDS: Senna/Docusate Sodium 1 Tablet 2 TABLET PO (08:20)
[2025-01-01] MEDS: Azithromycin 500 MG in 0.9% Normal Saline (250mL Bag) 250 ML 255 MG IV (09:19)
--- NOTE | 2025-01-01 09:33 | PCM.PN.HOSP ---
Subjective Subjective Respiratory status is improved he is only requiring 2 L nasal cannula. Objective Data Objective Data Vital Signs: Vital Signs Temp Pulse Resp BP Pulse Ox O2 Del Method O2 Flow Rate 97.8 F 66 16 136/62 H 98 Nasal Cannula 2 01/01/25 04:00 01/01/25 08:00 01/01/25 08:00 01/01/25 08:00 01/01/25 08:00 01/01/25 08:17 01/01/25 08:17 FiO2 45 01/01/25 00:00 Oxygen Flow Rate (L/min) 2 Oxygen Delivery Method Nasal Cannula Weight: 112 lb 6.972 oz Body Mass Index (BMI) 18.7 Intake & Output: Intake and Output for Last 24 Hours 12/31/24 01/01/25 01/02/25 03:59 03:59 03:59 Intake Total 2405 / 2405 100 / 100 Output Total 200 / 200 Balance 2205 / 2205 100 / 100 Lab / Micro Data 01/01/25 06:04 01/01/25 06:04 Labs: Laboratory Results - last 24 hr 12/31/24 14:40: Lactic Acid 3.8 H* 12/31/24 15:00: WBC 5.2, RBC 4.14 L, Hgb 12.1 L, Hct 37.6 L, MCV 90.8, MCH 29.2, MCHC 32.2, RDW Std Deviation 48.4 H, RDW Coeff of Brook 14.5, Plt Count 224, MPV 11.0, Immature Gran % (Auto) 0.600, Neut % (Auto) 70.8 H, Lymph % (Auto) 20.1, [place] % (Auto) 5.4, Eos % (Auto) 2.5, Baso % (Auto) 0.6, Absolute Neuts (auto) 3.7, Absolute Lymphs (auto) 1.05, Nucleated RBC % 0, PT 14.9, INR 1.1, APTT 30.0, Sodium 146 H, Potassium 3.7, Chloride 108, Carbon Dioxide 23.2, Anion Gap 14, BUN 24 H, Creatinine 1.19, Estim Creat Clear Calc 30.35 L, Est GFR (MDRD) Non-Af 59 L, BUN/Creatinine Ratio 20.4 H, Glucose 267 H, Calcium 8.7, Total Bilirubin 0.48, AST 17, ALT 10, Alkaline Phosphatase 93, Troponin T High Sens 31 H, Total Protein 5.7 L, Albumin 3.1 L, Globulin 2.6, Albumin/Globulin Ratio 1.2 12/31/24 16:42: Troponin T Hi Sens 2 Hr 31 H 12/31/24 19:25: Lactic Acid 1.9 12/31/24 19:54: POC Glucose 114 H 12/31/24 21:22: POC Glucose 121 H 01/01/25 03:20: WBC Cancelled, Corrected WBC Cancelled, RBC Cancelled, Hgb Cancelled, Hct Cancelled, MCV Cancelled, MCH Cancelled, MCHC Cancelled, RDW Std Deviation Cancelled, RDW Coeff of Brook Cancelled, Plt Count Cancelled, MPV Cancelled, Immature Gran % (Auto) Cancelled, Neut % (Auto) Cancelled, Lymph % (Auto) Cancelled, [place] % (Auto) Cancelled, Eos % (Auto) Cancelled, Baso % (Auto) Cancelled, Absolute Neuts (auto) Cancelled, Absolute Lymphs (auto) Cancelled, Total Counted Cancelled, Neutrophils % (Manual) Cancelled, Band Neutrophils % Cancelled, Lymphocytes % (Manual) Cancelled, Monocytes % (Manual) Cancelled, Eosinophils % (Manual) Cancelled, Basophils % (Manual) Cancelled, Metamyelocytes % Cancelled, Myelocytes % Cancelled, Promyelocytes % Cancelled, Blast Cells % Cancelled, Plasma Cell % (Manual) Cancelled, Other Cells % Cancelled, Nucleated RBC % Cancelled, Nucleated RBCs/100 WBC Cancelled, Differential Comment Cancelled, Diff Path Review Cancelled, Hypersegmented Neuts Cancelled, Atypical Lymphocytes Cancelled, Reactive Lymphocytes Cancelled, Smudge Cells Cancelled, Toxic Granulation Cancelled, Toxic Vacuolation Cancelled, Dohle Bodies Cancelled, Melanie Rods Cancelled, Platelet Estimate Cancelled, Plt Morphology Comment Cancelled, RBC Morphology Cancelled 01/01/25 03:20: RBC Morphology Cancelled, Polychromasia Cancelled, Hypochromasia Cancelled, Basophilic Stippling Cancelled, Anisocytosis Cancelled, Microcytosis Cancelled, Macrocytosis Cancelled, Spherocytes Cancelled, Sickle Cells Cancelled, Target Cells Cancelled, Tear Drop Cells Cancelled, Ovalocytes Cancelled, Stomatocytes Cancelled, [place] Bodies Cancelled, [place] Cells Cancelled, Bite Cells Cancelled, Crenated Cell Cancelled, Acanthocytes (Spur) Cancelled, Rouleaux Cancelled, Schistocytes Cancelled, Sodium Cancelled, Potassium Cancelled, Chloride Cancelled, Carbon Dioxide Cancelled, Anion Gap Cancelled, BUN Cancelled, Creatinine Cancelled, Estim Creat Clear Calc Cancelled, Est GFR (MDRD) Non-Af Cancelled, BUN/Creatinine Ratio Cancelled, Glucose Cancelled, Calcium Cancelled 01/01/25 04:37: WBC Cancelled, Corrected WBC Cancelled, RBC Cancelled, Hgb Cancelled, Hct Cancelled, MCV Cancelled, MCH Cancelled, MCHC Cancelled, RDW Std Deviation Cancelled, RDW Coeff of Brook Cancelled, Plt Count Cancelled, MPV Cancelled, Immature Gran % (Auto) Cancelled, Neut % (Auto) Cancelled, Lymph % (Auto) Cancelled, [place] % (Auto) Cancelled, Eos % (Auto) Cancelled, Baso % (Auto) Cancelled, Absolute Neuts (auto) Cancelled, Absolute Lymphs (auto) Cancelled, Total Counted Cancelled, Neutrophils % (Manual) Cancelled, Band Neutrophils % Cancelled, Lymphocytes % (Manual) Cancelled, Monocytes % (Manual) Cancelled, Eosinophils % (Manual) Cancelled, Basophils % (Manual) Cancelled, Metamyelocytes % Cancelled, Myelocytes % Cancelled, Promyelocytes % Cancelled, Blast Cells % Cancelled, Plasma Cell % (Manual) Cancelled, Other Cells % Cancelled, Nucleated RBC % Cancelled, Nucleated RBCs/100 WBC Cancelled, Differential Comment Cancelled, Diff Path Review Cancelled, Hypersegmented Neuts Cancelled, Atypical Lymphocytes Cancelled, Reactive Lymphocytes Cancelled, Smudge Cells Cancelled, Toxic Granulation Cancelled, Toxic Vacuolation Cancelled, Dohle Bodies Cancelled, Melanie Rods Cancelled, Platelet Estimate Cancelled, Plt Morphology Comment Cancelled, RBC Morphology Cancelled 01/01/25 04:37: RBC Morphology Cancelled, Polychromasia Cancelled, Hypochromasia Cancelled, Basophilic Stippling Cancelled, Anisocytosis Cancelled, Microcytosis Cancelled, Macrocytosis Cancelled, Spherocytes Cancelled, Sickle Cells Cancelled, Target Cells Cancelled, Tear Drop Cells Cancelled, Ovalocytes Cancelled, Stomatocytes Cancelled, [place] Bodies Cancelled, Kranthi Cells Cancelled, Bite Cells Cancelled, Crenated Cell Cancelled, Acanthocytes (Spur) Cancelled, Rouleaux Cancelled, Schistocytes Cancelled 01/01/25 06:04: WBC 10.5, RBC 3.97 L, Hgb 11.7 L, Hct 36.0 L, MCV 90.7, MCH 29.5, MCHC 32.5, RDW Std Deviation 47.9 H, RDW Coeff of Brook 14.5, Plt Count 245, MPV 10.0, Immature Gran % (Auto) 0.700, Neut % (Auto) 85.9 H, Lymph % (Auto) 10.4 L, [place] % (Auto) 2.9, Eos % (Auto) 0.0, Baso % (Auto) 0.1, Absolute Neuts (auto) 9.0 H, Absolute Lymphs (auto) 1.09, Nucleated RBC % 0, Sodium 146 H, Potassium 4.1, Chloride 111 H, Carbon Dioxide 25.8, Anion Gap 9, BUN 21 H, Creatinine 0.94, Estim Creat Clear Calc 39.18 L, Est GFR (MDRD) Non-Af 78, BUN/Creatinine Ratio 22.9 H, Glucose 132 H, Hemoglobin A1c 5.5, Calcium 8.7 Micro: Microbiology 12/31/24 15:02 Mucosa - Nasopharyngeal Respiratory Panel (PCR) - Final 12/31/24 15:00 Mucosa - Nose SARS-CoV-2, Influenza & RSV (PCR) - Final ABG Data ABG results: ABG 12/31/24 15:29 Specimen Type ART Sample Site R Radial pH 7.41 Bicarbonate Actual 28.4 H Total CO2 30 Base Excess 4 H O2 Saturation 98 O2 % 100.0 ABG pCO2 44.7 ABG pO2 98 O2 Delivery Device HFNC Vent Mode Not entered Radiography Diagnostic Testing: Radiology Impression Chest X-Ray 12/31/24 15:20 IMPRESSION: No Acute Findings. Reading Location: [facility] Chest CTA 12/31/24 15:49 IMPRESSION: *No pulmonary embolism to the subsegmental level. *Bibasilar consolidations with superimposed ground-glass and peribronchovascular opacities, suspicious for multifocal pneumonia (including aspiration) versus pulmonary edema. *New L1 compression fracture with osseous retropulsion, age indeterminate. *Additional findings: coronary artery calcifications, tortuous thoracic aorta with atherosclerosis, 1.6 cm left thyroid nodule, hiatal hernia, cholelithiasis without cholecystitis, large left renal cyst. Reading Location: [facility] Physical Exam Narrative General: Alert, Oriented x2, Cooperative, No apparent distress HEENT: Atraumatic, PERRLA, EOMI, Normocephalic Oral: Moist Mucosa Neck: Supple, No JVD Lungs: Diminished, Normal air movement, No rhonchi, No wheeze, No rales Cardiovascular: Regular rate, Regular Rhythm, Normal S1, Normal S2, No murmurs Abdomen: Soft, Non Tender, Non-Distended, No Hepato-splenomegaly Extremities: No edema, Capillary Refill Less than 3 Seconds Skin: No rashes, No breakdown Musculoskeletal: No Tenderness to Palpation of Joints or Extremities Neurological: No focal neurological deficits, moves all extremities Psych/Mental Status: Normal Affect, Appropriate Assessment & Plan Assessment/Plan (1) Acute hypoxic respiratory failure: PLAN: Plan 1. Acute hypoxic respiratory failure secondary to sepsis from multifocal pneumonia as well as an asthma exacerbation ? Continue steroids ? Continue antibiotics ? Sputum cultures pending ? Continue with his inhalers ? Given that he is back down to 2 L nasal cannula we will transferred to PCU ? CTA was negative for PE ? Consult speech for evaluation for possible aspiration 2. Essential HTN/HLD/history of CVA ? Continue with statin ? Will hold his home blood pressures given that his blood pressures were little bit on the low side on admission ? Can restart when able ? Will monitor and make adjustments as necessary 3. BPH with obstruction ? Stable ? Continue with Flomax 4. GERD ? Stable ? Continue with PPI DVT: Lovenox Charges/Coding Visit Charges Inpatient E&M: 57196 Subs Hosp L2
--- NOTE | 2025-01-01 10:51 | CASEMGMT ---
Addendum entered by Juanita Barbour 01/01/25 22:15: 4:30 PM: Марина at [facility] made aware SW being added to C order. Addendum entered by Juanita Barbour 01/01/25 14:15: Call placed to pt's , Marilyn, to discuss discharge planning. No answer. Call also placed to son, Jorge L. No answer. left requesting return call. Addendum entered by Juanita Barbour 01/01/25 14:10: Noted HCPOA is on file in [employer]. Pt's , Marilyn, is listed as primary HCPOA. Pt's son, Jorge L, is listed as 1st alternative, and pt's daughter, Amy, is listed as 2nd alternative. Addendum entered by Juanita Barbour 01/01/25 13:40: RN?CM?ASSESSMENT ? Pt's daughter, Amy, called this RN CM back. She is now in room w/pt. MADONNA CM to room. Introduced self and role to Amy. Pt remains sitting in chair in room. The following information obtained from Amy. ? Strata: 2 PCP: Dr Cutler Specialists: none Preferred Pharmacy: [facility] @ [address] Insurance: [facility] Prescription Benefit: yes? LNOK: Daughter, Amy, and son, Jorge L, are pt's HCPOA. Pt has total of 5 living children. , Marilyn. Living Arrangements: Pt lives w/ in one-story home w/basement w/ramp entrance into home. Pt does not go to basement. Amy manages pt's medications and gets groceries. Private-Duty Aide: Pt has aides through [employer], private-pay, who comes 7 days/wk from 8A to Noon. The aide assists pt into shower & is available to assist as needed. Pt able to bath/dress self. Aide prepares breakfast & lunch & does home mgnt tasks: cleaning & laundry. Transportation:? Dtr, Amy, provides most transportation. still able to drive, but has only driven about 2 x's in past 4 months. DME: Pt has the following DME:?shower chair, cane, walker, W/C. No home O2. Discussed possible need for home O2 and information provided. Amy prefers [employer]. Pt does not have a pulse ox. MADONNA BERMAN recommended purchase of one and made aware of locations that sell these. Amy interested in medical alert info. This was provided. HHC/SNF: Pt has been to [facility] and [facility]. No hx of HHC. He has been to [facility] for OP therapy. ? Discussed discharge planning. Amy wishes for pt to return home & pt in agreement. She is interested in HHC and prefers [facility], declining list of other HHC agencies unless [facility] unable to accept pt. Call placed to Марина @ [facility] & referral made for SN, PT, & ST. Марина states PT will evaluate for possible need of OT. They are able to accept pt. If pt dc's tomorrow, SOC can be Monday. It pt dc's after tomorrow, SOC will be . Amy made aware and voices appreciation. Amy states money is going fast w/paying for private-duty aide. Made aware of [facility] services. She is not sure if pt will qualify, but she would like info. Same provided. Amy also states they have been trying to figure out next steps for pt & re: living situation and care that is needed & states she does not want pt to go to a retirement again. She was given info on AL's, [employer], Adult Day Care and home delivered meals, per her request. Amy voices no further concerns/needs at this time.? Advised her to ask for?CM?if any further questions/concerns/needs arise.? Voices understanding. CM?to follow for home oxygen needs and any further discharge planning/needs.? ? [facility] & ST. Follow for possible home o2. ? DGiauque BSN?RN?CM ? Original Note: RN CM NOTE: RN CM to room for initial RN CM assessment. Pt sitting up in chair. Introduced self and role. Pt alert/pleasant, forgetful. Hx dementia. Pt able to answer some questions appropriately, such as town he lives in. Unable to state street address, stating, It's a new one, but then stated he has lived there for about 15 yrs. Pt unable to state who his PCP is or if he uses DME. He did state he lives with his and that she does most of the driving, stating that he gave up the driving to her. Pt stated RN CM could call either his daughter, Amy Renteria, or son, Jorge L to review questions and discuss discharge planning. Call placed to pt's daughter, Amy Renteria. No answer. VM left requesting return call to this RN ANTONELLA. Eve MALAGONN MADONNA CM
--- NOTE | 2025-01-01 14:20 | CHAPLAIN ---
Type of Pastoral Visit _x__ Initial Visit ___ Follow-up Visit ___ On-call Visit ___ General Patient Visit ___ Spiritual Assessment ___ Family Conference ___ Bereavement ___ Rapid Response ___ Code Blue ___ Other (describe below) Pastoral Care Referral From _x__ Patient ___ Family ___ Nurse ___ Physician ___ Advertising Agency Manager ___ Quality Assurance ___ Other (describe below) Sacrament/Intervention _x__ Active listening ___ Anointing ___ Alevism ___ Bereavement ___ Communion ___ Jenni exploration ___ ___ Life review _x__ Prayer ___ Reconciliation ___ Sacrament of Sick _x__ Supportive presence ___ Wedding ___ Other (describe below) Pastoral Comments patient is welcoming and pleasant; pt states that he is doing much better since yesterday and that yesterday was scary; addressed his concerns or fears but pt says that he is fine now; pt says that a prayer is good for anyone and so that is given; pt expresses thanks for the visit and the offer of support; pt declares that he has a large family when asked about other supporters
[2025-01-01] MEDS: 0.9% Saline Lock 10 ML Syringe IV (17:48)
[2025-01-01] MEDS: 0.9% Normal Saline (250mL Bag) 250 ML 15 ML IV (17:48)
[2025-01-01 19:37] LABS: Troponin T High Sens 4 HR 18 ng/L (<=22)
[2025-01-01] MEDS: MELATONIN 10 MG TABLET PO (22:29)
[2025-01-02] MEDS: Ampicillin/Sulbactam 3 GM in 0.9% Normal Saline (100mL MB+) 100 ML IV ×3 (00:58→12:14)
[2025-01-02 03:55] VITALS: BMI 19.0
[2025-01-02 05:00] VITALS: BP 110/64; PULSE 62; RESP 16; TEMP 36.7; O2SAT 98
[2025-01-02 05:10] LABS: Hematocrit 35.5 % (40-54); Hemoglobin 11.7 g/dL (13.0-16.5); Immature Granulocytes Count 0.150 X10^3/uL (0.0-0.0); Mean Corp Hgb Conc 33.0 g/dL (32-36); Mean Corpuscular Volume 90.8 fL (80-94); Mean Platelet Vol. 10.7 fl (6.2-12.0); NRBC Flagged by Analyzer 0 % (0-5); Platelet Count 220 K/mm3 (150-450); RBC Distribution Width CV 14.6 % (11.6-14.6); RBC Distribution Width SD 48.5 fl (35.1-43.9); Red Blood Count 3.91 M/mm3 (4.6-6.2); White Blood Count 15.9 K/mm3 (4.4-11.0)
[2025-01-02 05:41] LABS: Anion Gap 10 (5-15); BUN 24 mg/dL (4-19); BUN/Creat Ratio 27.9 RATIO (10-20); Calcium,Total 8.8 mg/dL (7.6-11.0); Carbon Dioxide 23.5 mmol/L (21.0-32.0); Chloride 111 mmol/L (98-108); Estimated Creatinine Clearance 43.50 ml/min (50-250); Glucose 152 mg/dL (70-99); Potassium 3.9 mmol/L (3.3-5.1)
[2025-01-02 07:24] VITALS: PULSE 70; RESP 16; O2SAT 94
[2025-01-02 08:00] VITALS: PULSE 77
--- NOTE | 2025-01-02 09:36 | ST.MBS ---
Modified Barium Swallow Patient Information Study Date: 01/02/25 Study Time: 09:30 Direct Billable Minutes: 119 Total Minutes procedure & reportin Diagnosis: PNA J18.9; Acute hypoxic respiratory failure J96.01 Referring Physician: Michael Alexandre Reason for Referral: Objectively assess swallow function, assess risk for aspiration, and determine recommendations for least restrictive diet textures and compensatory strategies to improve safety of swallow. Medical History: The patient presented to [facility] ED 12/31/2024 with cough for 2 weeks and dyspnea 1 hour prior to arrival. Cough is productive Patient lives at home alone. Family members were present upon physician evaluation and informed physician that he has hx of swallowing difficulty requiring thickened liquids, but he has been noncompliant w/ thickener use at home. He does cough aft times when he eats. Chest CTA with no PE but did show multifocal pneumonia. Following full ED, work up, he was diagnosed w/ PNA and sepsis. ST was consulted due to PNA and hx of dysphagia. BSE 01/02/2025 recommended pt continue on Regular textures (no fisher) / Thin liquids w/ distant supervision and re-assessment via MBSS due to hx of silent aspiration. Hx of oropharyngeal dysphagia.Pt was seen by ST on inpatient rehab floor at [facility] for cognitive and dysphagia POCs following a CVA (MRI of the brain was obtained and showed small acute right MCA scattered infarcts). MBSS 10/02/2024, which revealed moderate oropharyngeal dysphagia w/ silent aspiration of thin liquids via cup 1X and overt aspiration of thin liquids via cup 1X. He was recommended for the following diet and compenstory strategies: Diet: Easy to Chew Textures and Mildly Thick Liquids (Liquid by Teaspoon Only); Compensatory Strategies: Small Bites, Small Sips (Intermittent Cough and Re-Swallow), Liquid by Teaspoon Only, Slow Rate, Feed only when alert, Multiple Swallows, Alternate bites/solids and sips/liquids, Sitting upright, Remain sitting upright for 30 minutes after PO intake and Assist with verbal cues to use recommended strategies; Supervision: 1:1 Direct Supervision. He was discharged to SNF on 10/22/2024 w/ recommendations for Easy to Chew textures / Mildlly thick liquids w/ FFWP, liquids by tsp only, Direct 1:1 supervision. [facility] recommended repeat MBSS prior to diet advancement. Medical History (Updated 12/31/24 @ 18:[address] Richa Richards MD) Acute encephalopathy Acute ischemic right MCA stroke Acute kidney injury Asthma BPH (benign prostatic hyperplasia) Debility Dehydration Dementia Dyslipidemia Esophageal foreign body Esophageal stenosis Essential (primary) hypertension Fall Former smoker GERD (gastroesophageal reflux disease) History of esophageal dilatation Hypertension Mild aortic stenosis Presbycusis Seizure disorder TIA (transient ischemic attack) Tobacco dependence in remission Urinary retention Urinary tract infection Vitamin D deficiency Current Diet Ordered: Regular textures / Thin liquids Dentition: Upper Dentures and Lower Dentures Mental Status: Impaired (Hx of dementia) Respiratory Status: Oxygenating on Room Air Penetration-Aspiration Scale Penetration-Aspiration Scale: OBJECTIVE ASSESSMENT OF SWALLOW FUNCTION (QUANTITATIVE ? PER TRIAL): PENETRATION / ASPIRATION SCALE (FELIZ): 1 = does not enter airway 2 = enters airway/above vocal folds/ejected 3 = enters airway/above vocal folds/not ejected 4 = enters airway/contacts vocal folds/ejected 5 = enters airway/contacts vocal folds/not ejected 6 = enters airway/below vocal folds/ejected 7 = enters airway/below vocal folds/not ejected despite effort 8 = enters airway/below vocal folds/no effort VIDEOFLOROSCOPIC SCALE SCORE (FELIZ): Grade I = aspiration of material that has penetrated into the laryngeal vestibule, intact cough reflex Grade II = aspiration < 10 % of the bolus, intact cough reflex Grade III = aspiration of < 10 % of the bolus, reduced cough reflex or aspiration of > 10 % of the bolus, intact cough reflex Grade IV = aspiration of > 10 % of the bolus, reduced cough reflex Penetration-Aspiration Scale Score Thin Liquid via teaspoon: Result: 3= enters airways/above vocal folds/not ejected Thin Liquid via teaspoon Trial 2: Result: 7= enters airways/below vocal folds/not ejected despite effort Thin Liquid via small single sip: cup Effortful swallow: Result: 3= enters airways/above vocal folds/not ejected Thin Liquid via small single sip: cup Chin tuck: Result: 2= enter airway/above vocal folds/ejected Fingal Thick Liquid via teaspoon: Result: 5= enters airways/contacts vocal folds/not ejected (Silent post prandial aspiration of residues in the laryngeal vestibule from previous trials) Pudding via teaspoon: Result: 1= does not enter airway Comment: Esophageal screen - Complete clearance. 1/2 Cookie: Result: 1= does not enter airway Thin Liquid via small single sip: cup Chin tuck Trial 2: Result: 2= enter airway/above vocal folds/ejected Fingal Thick Liquid via small single sip: cup: Result: 2= enter airway/above vocal folds/ejected Fingal Thick Liquid via teaspoon Trial 2: Result: 3= enters airways/above vocal folds/not ejected Fingal Thick Liquid via teaspoon Trial 3: Result: 8= enters airway/below vocal folds/no effort Thin Liquid via small single sip: cup Chin tuck Trial 3: Result: 2= enter airway/above vocal folds/ejected Thin Liquid via small single sip: cup Chin tuck Trial 4: Result: 8= enters airway/below vocal folds/no effort Thin Liquid via small single sip: cup Effortful swallow Trial 2: Result: 8= enters airway/below vocal folds/no effort Thin Liquid via teaspoon Trial 3: Result: 1= does not enter airway Thin Liquid via small single sip: cup Trial 4: Result: 8= enters airway/below vocal folds/no effort Honey Thick Liquid via teaspoon: Result: 1= does not enter airway Thin Liquid via single sip: straw: Result: 1= does not enter airway Thin Liquid via single sip: straw Trial 2: Result: 8= enters airway/below vocal folds/no effort Thin Liquid via single sip: straw Right head turn: Result: 1= does not enter airway Thin Liquid via single sip: straw Right head turn Trial 2: Result: 3= enters airways/above vocal folds/not ejected Oral Phase Labial Seal: Interlabial escape, no progression to anterior lip Tongue Control During Bolus Hold: Posterior escape of less than half of bolus Bolus Preparation/Mastication: Slow prolonged chewing/mashing with complete recollection Bolus Transport/Lingual Motion: Repetitive/disorganized tongue motion Oral Residue: Residue collection on oral structures Pharyngeal Phase Initiation of Pharyngeal Swallow: Bolus head in pyriforms Soft Palate Elevation: Trace column of contrast/air between soft palate and pharyngeal wall Laryngeal Elevation: Partial superior movement thyroid cart/partial apprx aryt-epig petiole Anterior Hyoid Excursion: Partial anterior movement Epiglottic Movement: Complete inversion Laryngeal Vestibule Closure at Height of Swallow: Incomplete; narrow column of air/contrast in laryngeal vestibule Pharyngeal Stripping Wave: Present - diminished Pharyngoesophageal Segment Opening: Parital distension and partial duration; parital obstruction of flow (trace retention in the UES, small CP bar) Tongue Base Retraction: Narrow column of contrast between tongue base & post. pharyngeal wall Pharyngeal Residue: Collection of residue within or on pharyngeal structures Esophageal Phase Esophageal Clearance: Complete clearance Treatment Strategies Effects of treatment strategies attemped:: Cough and re-swallow = somewhat effective. Diagnosis/Impression Diagnosis: Moderate oropharyngeal dysphagia R13.12 MBS Impressions: Small CP bar at the level of C6, which did not appear to greatly impact bolus clearance through the UES. Trace retention in the UES. Cued [id number]-swallow intermittently during MBSS to clear residues from the laryngeal vestibule to improve accuracy of PAS scoring. The oral phase is primarily marked by... -Decreased bolus control w/ premature posterior loss of <1/2 of thin liquid boluses to the pyriform sinuses prior to swallow onset. -Slowed, but complete mastication. -Disorganized tongue motion for A-P transport. The pharyngeal phase is primarily marked by... -Delayed swallow onset. -Decreased pharyngeal motility due to decreased TB retraction and pharyngeal stripping wave w/ trace-mild pharyngeal residues. -Decreased airway closure during the swallow due to decreased anterior hyoid excursion and laryngeal elevation. -Silent aspiration of mildly thick liquids via tsp, thin liquids via straw, thin liquids via cup w/ chin tuck, and thin liquids via cup w/ effortful swallow. Overt s/s of aspiration of thin liquids via tsp w/ reflexive throat clear. Recommendations Diet: Regular Textures and Thin Liquids Compensatory Strategies: Small Bites, Small Sips, Slow Rate, Right head turn when swallowing (ALL LIQUIDS) and Sitting upright (During and 30-60min after po intake) Supervision: 1:1 Direct Supervision (Pt lives at home w/ his ) Recommend Repeat Modified Barium Swallow: Yes (3-6 weeks after implementation of daily oropharyngeal exercise program to reassess aspiration risk) Need for Skilled Speech Therapy Services: Yes Comment: -Train the patient in strategies to decrease risk for aspiration. -Ongoing assessment of diet tolerance. -Implement thorough oral care routine. -Train the patient in oropharyngeal exercise program, including lingual resistance, Kaia, Effortful, CTAR, Quoc. Education Completed: 1. Described result of evaluation., 2. Pt understands evaluation & agrees with goals and treatment plan. and 7. Pt requires further education on strategies & risks. Status Active ST Patient: Active Contact Information [facility] Speech Therapy:: Elinor Quintana M.A. [facility] Speech-Language Pathologist [facility] [address] [place] [address] [email or web address] [phone]
[2025-01-02 10:14] VITALS: BP 132/69; PULSE 103; RESP 18; TEMP 36.4; O2SAT 95
[2025-01-02] MEDS: Senna/Docusate Sodium 1 Tablet 2 TABLET PO (10:15)
[2025-01-02] MEDS: Azithromycin 500 MG in 0.9% Normal Saline (250mL Bag) 250 ML 255 MG IV (10:19)
--- NOTE | 2025-01-02 11:51 | CASEMGMT ---
MADONNA BERMAN NOTE: RN ANTONELLA spoke w/pt's son, Jorge L. He was made aware this RN ANTONELLA spoke w/his sister, Amy, yesterday re: discharge planning and that plan was arranged w/her for pt to discharge home w/[facility]. Questions answered. He is agreeable to this plan and voices appreciation. He states Amy is more knowledgeable about healthcare and he is appreciative of her taking care of his care needs. He states would like [facility] to contact Amy to schedule C appts. Марина @ [facility] made aware. Jorge L states he was also made aware pt to discharge later today. Discussed possible need of home O2 and he is agreeable to [employer] as well, if O2 is needed. Further questions answered. He states pt's is aware plan is for pt to return home today and she is excited about him coming back home. He states he will update her on all of the above. He denies having further discharge needs or concerns. Eve KINCAID RN, CM
--- NOTE | 2025-01-02 14:51 | DCINST_ITS ---
Discharge Instructions DC O2, CPAP, BIPAP needs Home O2 Discharge instructions: No Dressing / Incision Discharge Activity: Return to Normal Activity Dressing / Incision Call your doctor if you observe: Fever of 101 or Higher, Shortness of breath, Dizziness, Fainting spells, Swelling in the ankles, Chest pain and Increased palpitations (irregular heartbeat) Follow Up Care Test Results: Test results from this visit will be discussed in further detail at your follow- up appointment, if applicable. Discharge Plan Admission Admit Date/Time: 12/31/24 18:18 Attending Provider: Michael Alexandre Primary Care Provider: Nimisha Cutler Consulting Providers: Richa Richards Instructions Additional Instructions / Restrictions: Require 2 L nasal cannula with ambulation and while sleeping on room air at rest Discharge Orders/Prescriptions Prescriptions: New prednisone 20 mg Tablet 40 mg PO BREAKFAST 7 Days Qty: 14 0RF amoxicillin-pot clavulanate 875-125 mg tablet 1 tab PO BID Qty: 14 0RF albuterol sulfate [Ventolin HFA] 90 mcg/actuation HFA aerosol inhaler 1 inh inhalation Q6H PRN (Reason: shortness of breath or wheezing) Qty: 8.5 0RF Continued omeprazole 20 MG capsule 40 mg PO DAILY Patient Comments: acid reflux tamsulosin 0.4 mg capsule 0.4 mg PO DAILY lisinopril 5 mg tablet 5 mg PO DAILY acetaminophen 500 mg Tablet 1,000 mg PO BID atorvastatin 40 mg Tablet 40 mg PO QHS Qty: 0 0RF aspirin 81 mg Tablet,Chewable 81 mg PO DAILYCM Qty: 0 0RF ergocalciferol (vitamin D2) [Vitamin D2] 1,250 mcg (50,000 unit) Capsule 1,250 mcg PO Q7D@1000 Qty: 0 0RF Ensure Plus High Protein 0.08 gram-1.5 kcal/mL Liquid 120 ml PO 4X/DAY Qty: 0 0RF sennosides-docusate sodium [Stimulant Laxative Plus] 8.6-50 mg Tablet 1 tab PO BID Qty: 1 0RF metoprolol tartrate 25 mg Tablet 25 mg PO BID Qty: 1 0RF Discontinued cyanocobalamin (vitamin B-12) [Vitamin B-12] 500 mcg tablet 500 mcg PO DAILY quetiapine 25 mg Tablet 50 mg PO 2100 Qty: 1 0RF melatonin 3 mg Tablet 3 mg PO QHS Qty: 1 0RF tramadol 50 mg Tablet 25 mg PO Q6H PRN PRN (Reason: Pain 4-10) 7 Days Qty: 20 0RF nystatin 100,000 unit/gram Powder 1 applic topical 0600,2200 Qty: 1 0RF Protocol: *Topical Application Instructions APPLICATION INSTRUCTIONS: Groin menthol-zinc oxide [Calmoseptine] 0.44-20.6 % Ointment 1 applic topical 599,2199 Qty: 1 0RF Protocol: *Topical Application Instructions APPLICATION INSTRUCTIONS: Apply to buttock Referrals / Follow Up: Nimisha Cutler MD [Primary Care Provider] - Within 1 Week Disposition Disposition (needs filled in before D/C Order can be placed): Home Health Service
[2025-01-02 15:00] VITALS: O2SAT 87; O2SAT 92; O2SAT 97
[2025-01-02 15:33] VITALS: BP 135/78; PULSE 115; RESP 18; TEMP 36.4; O2SAT 98
--- NOTE | 2025-01-02 15:59 | CASEMGMT ---
Addendum entered by Juanita Barbour 01/02/25 16:52: Bennett @ [employer] he has delivered portable O2 tank to pt's room. Bennett states he has spoken w/pt's daughter, Amy, re: home O2. He states he will also call pt's son, Jorge L, as he was informed Jorge L will be coming in to take pt home. Original Note: MADONNA BERMAN NOTE: Discharge order is in. Home O2 amb testing has been completed. Pt qualifies for O2 @ 2 L/M w/exertion. Script for O2 obtained from Dr Alexandre and sent to [facility] via [employer]. Call placed to Марина @ [facility]. She was made aware pt being discharged. SOC slated for tomorrow. Eve KINCAID RN CM
--- NOTE | 2025-01-02 16:04 | PHA.DC_ITS ---
Pharmacy [facility] has performed discharge medication counseling for this patient. The patient was counseled on the following discharge medications and changes in medications for homegoing review. - Albuterol inhaler, prednisone, Augmentin The Reason for Use, instructions for use, and potential side effects were reviewed for all new medications. The patient's questions regarding all of their medications were answered. The patient was able to verbally demonstrate an understanding of their discharge medications.
--- NOTE | 2025-01-02 16:16 | DS.PCM_ITS ---
Providers Date of Admission: 12/31/24 Primary Care Physician: Dr. Nimisha Cutler MD Reason For Visit: ACUTE HYPOXIC RESPIRATORY FAILURE Diagnosis Discharge Diagnosis (1) Acute hypoxic respiratory failure: Status: Acute Code(s): J96.01 - Acute respiratory failure with hypoxia Medications at Discharge Home Medications omeprazole 20 mg capsule,delayed release 40 mg PO DAILY GERD 01/02/16 tamsulosin 0.4 mg capsule 0.4 mg PO DAILY Bladder 03/05/24 aspirin 81 mg chewable tablet 81 mg PO DAILY Heart health #0 tabs 09/27/24 atorvastatin 40 mg tablet 40 mg PO QHS cholestrol #0 tabs 09/27/24 ergocalciferol (vitamin D2) 1,250 mcg (50,000 unit) capsule (Vitamin D2) 1,250 mcg PO Q7D@1000 supplement #0 caps 09/27/24 food supplemt, lactose-reduced 0.08 gram-1.5 kcal/mL oral liquid (Ensure Plus High Protein) 120 ml PO 4X/DAY supplement #0 mL 09/27/24 metoprolol tartrate 25 mg tablet 25 mg PO BID blood pressure #1 TAB 10/22/24 sennosides 8.6 mg-docusate sodium 50 mg tablet (Stimulant Laxative Plus) 1 tab PO BID #1 TAB 10/22/24 acetaminophen 500 mg tablet 1,000 mg PO BID pain 12/31/24 lisinopril 5 mg tablet 5 mg PO DAILY blood pressure 12/31/24 albuterol sulfate 90 mcg/actuation aerosol inhaler (Ventolin HFA) 1 inh inhalation Q6H PRN shortness of breath or wheezing #8.5 grams 01/02/25 amoxicillin 875 mg-potassium clavulanate 125 mg tablet 1 tab PO BID #14 tabs 01/02/25 prednisone 20 mg tablet 40 mg (2 x 20 mg) PO BREAKFAST 7 days #14 tabs 01/02/25 Hospital Course Operations None Procedures None Summary of Care Provided Minutes Spent on Discharge: 33 Hospital Course: Per HPI: AYESHA JACOBSEN, is a 89-year-old male history of GERD, BPH, CVA, hypertension who presented [facility] [place] ED 12/31/2024 with cough for 2 weeks and dyspnea 1 hour prior to arrival. History of dementia and asthma but lives at home. In the ED temp 96.9, heart rate 108, blood pressure 86/56 with respiratory rate of 24 and pulse ox 96% on room air, patient transitioned to 100% high flow with sats at 93 and respiratory rate up to 28. CBC w/ WBC 5.2, hgb 12, BMP w/ Na 146, bun 24 and Cr 1.19, glc 267. Troponin of 31 x 2 and lactic acid 3.8, patient's ABG on high flow nasal cannula with a pH 7.41, bicarb 28.4 and saturating well. Patient's blood pressure responded to fluids and he was more comfortable on high flow, CTA with no PE but did show multifocal pneumonia. Patient diagnosed with sepsis, he was given IV antibiotics and hospitalist contacted for admission. Patient evaluated bedside with family members present, patient able to answer some questions but also somewhat poor historian so son supplemented history. Reportedly patient has been coughing for at least a couple of months but more so the past 2 weeks and then today he was eating when he suddenly became short of breath and felt unwell, reportedly does have a history of requiring thickened liquids due to aspiration risk however he has been noncompliant with that at home. Sometimes does cough when he eats. Denies any chest pain currently, has some chronic back pain but nothing new, last fall was a month ago. No abdominal pain or nausea or vomiting, has noted increased urinary frequency urinating up to every hour which is slowly worsening. Has some chronic problems with balance and slowly worsening vision. Patient seen on high flow, reports he is starting to feel better. Does still have cough and it is productive Hospital Course: 1. Acute hypoxic respiratory failure secondary to sepsis from multifocal pneumonia as well as an asthma exacerbation?89-year-old male presented to the hospital with shortness of breath and hypotension. He was found to be septic from multifocal pneumonia and started on azithromycin and Unasyn as there is also some concern for possible aspiration. He did complete 3 days of azithromycin and he had a modified barium swallow today that recommended regular textures with thin liquids and small bites and one-to-one supervision. He also had an ambulatory pulse ox which demonstrated no oxygen at rest but he needing 2 L with ambulation and at sleep. I have reviewed the oxygen testing, and this patient qualifies for the home equipment and portability. The patient is mobile in the home and the community. Given his significant improvement and concern for developing further weakness while being here in the hospital I discussed the possibility of discharge with his daughter who expressed understanding of the risks and benefits of him going home and would like for him to go home today. Will plan for 7 more days of prednisone 40 mg p.o. daily as well as Augmentin p.o. twice daily, will also provide him with an albuterol inhaler given his history of asthma and I recommend outpatient monitoring and evaluation on discharge by his PCP in 3 to 5 days if possible. 2. Essential hypertension, hyperlipidemia, history of CVA, BPH with obstruction, GERD, are all chronic medical conditions which complicate his care. His home medications were continued where appropriate. Physical Exam Narrative General: Alert, Oriented x3, Cooperative, No apparent distress HEENT: Atraumatic, PERRLA, EOMI, Normocephalic Oral: Moist Mucosa Neck: Supple, No JVD Lungs: Diminished, Normal air movement, No rhonchi, No wheeze, No rales Cardiovascular: Regular rate, Regular Rhythm, Normal S1, Normal S2, No murmurs Abdomen: Soft, Non Tender, Non-Distended, No Hepato-splenomegaly Extremities: No edema, Capillary Refill Less than 3 Seconds Skin: No rashes, No breakdown Musculoskeletal: No Tenderness to Palpation of Joints or Extremities Neurological: No focal neurological deficits, moves all extremities Psych/Mental Status: Normal Affect, Appropriate Weight / BMI Weight Weight: 114 lb 3.191 oz Body Mass Index (BMI) 19.0 ABG / Lab / Microbiology Data 01/02/25 04:47 01/02/25 04:47 Laboratory: Laboratory Results - last 24 hr 12/31/24 18:40: Troponin T Hi Sens 4Hr 18 01/01/25 15:57: POC Glucose 115 H 01/01/25 22:26: POC Glucose 153 H 01/02/25 04:47: WBC 15.9 H, RBC 3.91 L, Hgb 11.7 L, Hct 35.5 L, MCV 90.8, MCH 29.9, MCHC 33.0, RDW Std Deviation 48.5 H, RDW Coeff of [place] 14.6, Plt Count 220, MPV 10.7, Immature Gran % (Auto) 0.900, Neut % (Auto) 88.9 H, Lymph % (Auto) 5.7 L, [place] % (Auto) 4.4, Eos % (Auto) 0.0, Baso % (Auto) 0.1, Absolute Neuts (auto) 14.1 H, Absolute Lymphs (auto) 0.91, Nucleated RBC % 0, Sodium 144, Potassium 3.9, Chloride 111 H, Carbon Dioxide 23.5, Anion Gap 10, BUN 24 H, Creatinine 0.86, Estim Creat Clear Calc 43.50 L, Est GFR (MDRD) Non-Af 83, BUN/Creatinine Ratio 27.9 H, Glucose 152 H, Calcium 8.8 01/02/25 08:32: POC Glucose 130 H 01/02/25 11:55: POC Glucose 204 H Microbiology: Microbiology 12/31/24 14:58 Blood Culture (Wb) - Anticubital Right Blood Culture - Preliminary No growth in 48 hours. 12/31/24 15:00 Blood Culture (Wb) - Anticubital Left Blood Culture - Preliminary No growth in 48 hours. 12/31/24 15:02 Mucosa - Nasopharyngeal Respiratory Panel (PCR) - Final 12/31/24 15:00 Mucosa - Nose SARS-CoV-2, Influenza & RSV (PCR) - Final D/C Instructions Call your doctor if you observe: Fever of 101 or Higher, Shortness of breath, Dizziness, Fainting spells, Swelling in the ankles, Chest pain and Increased palpitations (irregular heartbeat) DC O2, CPAP, BIPAP Needs Home O2 Discharge instructions: No Meaningful Use Info Meaningful Use Meaningful Use Diagnoses (Choose all that apply): None applicable Discharge Plan Admission Admit Date/Time: 12/31/24 18:18 Attending Provider: Michael Alexandre Primary Care Provider: Nimisha Cutler Consulting Providers: Richa Richards Instructions Additional Instructions / Restrictions: Require 2 L nasal cannula with ambulation and while sleeping on room air at rest Discharge Orders/Prescriptions Prescriptions: New prednisone 20 mg Tablet 40 mg PO BREAKFAST 7 Days Qty: 14 0RF amoxicillin-pot clavulanate 875-125 mg tablet 1 tab PO BID Qty: 14 0RF albuterol sulfate [Ventolin HFA] 90 mcg/actuation HFA aerosol inhaler 1 inh inhalation Q6H PRN (Reason: shortness of breath or wheezing) Qty: 8.5 0RF Continued omeprazole 20 MG capsule 40 mg PO DAILY Patient Comments: acid reflux tamsulosin 0.4 mg capsule 0.4 mg PO DAILY lisinopril 5 mg tablet 5 mg PO DAILY acetaminophen 500 mg Tablet 1,000 mg PO BID atorvastatin 40 mg Tablet 40 mg PO QHS Qty: 0 0RF aspirin 81 mg Tablet,Chewable 81 mg PO DAILYCM Qty: 0 0RF ergocalciferol (vitamin D2) [Vitamin D2] 1,250 mcg (50,000 unit) Capsule 1,250 mcg PO Q7D@1000 Qty: 0 0RF Ensure Plus High Protein 0.08 gram-1.5 kcal/mL Liquid 120 ml PO 4X/DAY Qty: 0 0RF sennosides-docusate sodium [Stimulant Laxative Plus] 8.6-50 mg Tablet 1 tab PO BID Qty: 1 0RF metoprolol tartrate 25 mg Tablet 25 mg PO BID Qty: 1 0RF Discontinued cyanocobalamin (vitamin B-12) [Vitamin B-12] 500 mcg tablet 500 mcg PO DAILY quetiapine 25 mg Tablet 50 mg PO 2100 Qty: 1 0RF melatonin 3 mg Tablet 3 mg PO QHS Qty: 1 0RF tramadol 50 mg Tablet 25 mg PO Q6H PRN PRN (Reason: Pain 4-10) 7 Days Qty: 20 0RF nystatin 100,000 unit/gram Powder 1 applic topical 0600,2200 Qty: 1 0RF Protocol: *Topical Application Instructions APPLICATION INSTRUCTIONS: Groin menthol-zinc oxide [Calmoseptine] 0.44-20.6 % Ointment 1 applic topical 0600,2200 Qty: 1 0RF Protocol: *Topical Application Instructions APPLICATION INSTRUCTIONS: Apply to buttock Referrals / Follow Up: Nimisha Cutler MD [Primary Care Provider] - Within 1 Week Disposition Disposition (needs filled in before D/C Order can be placed): Home Health Service Charges/Coding Visit Charges Inpatient E&M: 05053 Disch Hosp >30min
--- NOTE | 2025-01-02 18:30 | NURSING ---
Pt and family given discharge instructions including medications, follow up appointments and all other discharge instructions. medications brought up by pharmacy. IV removed with catheter intact, clean dry dressing applied, pt tolerated well. Telemetry removed and placed at nurses station. Pt and family deny any further questions or needs at this time. pt wheeled down to sons waiting vehicle.
== END 2025-01-02 18:19 | disposition home health service (06) | DRG 871 ==
LOC: ED 15:20 → ICU 18:26 → PCU 01-01 17:28
PROVIDERS: Admitting Provider Internal Medicine; Emergency Provider Emergency Medicine; PCP Internal Medicine; Visit Provider Family Medicine
DX: A41.9 Sepsis, unspecified organism (principal); J96.01 Acute respiratory failure with hypoxia; J69.0 Pneumonitis due to inhalation of food and vomit; J18.9 Pneumonia, unspecified organism; J45.901 Unspecified asthma with (acute) exacerbation; M48.56XA Collapsed vertebra, not elsewhere classified, lumbar region, initial encounter for fracture; N13.8 Other obstructive and reflux uropathy; I10 Essential (primary) hypertension; E78.5 Hyperlipidemia, unspecified; K21.9 Gastro-esophageal reflux disease without esophagitis; I44.7 Left bundle-branch block, unspecified; Z66 Do not resuscitate; Z79.82 Long term (current) use of aspirin; Z87.891 Personal history of nicotine dependence; Z86.73 Personal history of transient ischemic attack (TIA), and cerebral infarction without residual deficits; R73.9 Hyperglycemia, unspecified; N40.1 Benign prostatic hyperplasia with lower urinary tract symptoms
CPT/HCPCS: 36415; 36600; 71045; 71275; 74230; 80048; 80053; 82803; 82962; 83036; 83605; 84484; 85025; 85610; 85730; 87040; 87631; 87633; 92610; 92611; 93005; 94640; 94660; 94668; 94762; 97162; 97166; 97530; 97535; 99285; Q9967; A4216; J0295; J0696